=== PATIENT | male | born 1970 | race African-American/Black ===

== ENCOUNTER 2017-01-06 17:52 | Inpatient (IN) | payer SELFPAY ==
[~2017-01-06] VITALS: Ht 172.7 cm; Wt 107.9 kg
[2017-01-06] VITALS (9 sets, daily range): BP systolic 174–210; BP diastolic 102–125; PULSE 115–130; RESP 18–36; TEMP 99.1–103.2; O2SAT 93–100
[~2017-01-06 17:52] MED LIST: HYDRA25 PO; LISI20 PO; METO100 PO; NIFE1TAB86 PO
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
[2017-01-06] MEDS ORDERED: METO100T PO (18:07)
[2017-01-06] MEDS ORDERED: CLON0.1T PO (18:07)
[2017-01-06] MEDS: RESP: ALBUTEROL 2.5 MG/IPRATROPIUM 0.5 MG NEB (SCH) INH ×2 (18:11→18:45)
[2017-01-06] MEDS ORDERED: ACETAMINOPHEN 500 MG CPLT PO ONE (18:15)
[2017-01-06] MEDS ORDERED: SODIUM CHLOR 0.9% 1000 ML INJ 1,000 ML IV ONE (18:15)
[2017-01-06] MEDS ORDERED: SODIUM CHLORIDE 0.9% FLUSH 10 ML FLUSH IVF PRN (18:15)
[2017-01-06] MEDS ORDERED: methylPREDNISolone SOD SUCC 125 MG/2 ML VIAL IVP ONE (18:15)
[2017-01-06] MEDS ORDERED: hydrALAZINE HCL 20 MG/ML VIAL IV PUSH ONE ×2 (18:15→19:30)
--- NOTE | 2017-01-06 18:45 | RADRPT ---
EXAM DATE/TIME: 01/06/2017 18:25 [facility] COMPARISON: CHEST SINGLE AP, December 18, 2015, 12:28. INDICATIONS : Short of breath. MEDICAL HISTORY : Hypertension. Cerebrovascular disease. Cardiovascular disease. SURGICAL HISTORY : None. ENCOUNTER: Initial ACUITY: 1 day PAIN SCORE: 2/10 LOCATION: Chest FINDINGS: There is patchiness within the right lung base consistent with possible pneumonia. Clinical correlat ion is recommended. The left lung is clear. The heart and mediastinal structures are stable. CONCLUSION: 1. Minimal patchiness within the right lung base consistent with possible pneumonia. Clinical corre lation is recommended. Ric Jack MD on January 06, 2017 at 18:41 Board Certified Radiologist. This report was verified electronically.
[2017-01-06 18:58] LABS: AUTOMATED NEUTROPHIL # 5.1 TH/MM3 (1.8-7.7); BASOPHIL % 0.4 % (0.0-2.0); EOSINOPHIL % 0.5 % (0.0-4.0); HEMATOCRIT 42.8 % (39.0-51.0); HEMO FLAGS DIFF FINAL; LYMPH % 21.5 % (9.0-44.0); LYMPHOCYTE # 1.6 TH/MM3 (1.0-4.8); MEAN CELL VOLUME 78.7 FL (80.0-100.0); MEAN CORPUSCULAR HGB CONC 33.1 % (32.0-36.0); MONO % 10.7 % (0.0-8.0); NEUT % 66.9 % (16.0-70.0); PLATELET COUNT 232 TH/MM3 (150-450); RED BLOOD COUNT 5.44 MIL/MM3 (4.50-5.90); RED CELL DISTRIBUTION WIDTH 15.9 % (11.6-17.2); WHITE BLOOD COUNT 7.6 TH/MM3 (4.0-11.0)
[2017-01-06] MEDS ORDERED: SODIUM CHLOR 0.9% 1000 ML INJ 1,000 ML IV SCH ×2 (19:15)
[2017-01-06] MEDS ORDERED: cefTRIAXone INJ 1,000 MG in SODIUM CHLORIDE 0.9% INJ 100 ML IV ONE (19:15)
[2017-01-06] MEDS ORDERED: AZITHROMYCIN INJ 500 MG in SODIUM CHLOR 0.9% 250 ML INJ 250 ML IV ONE (19:15)
[2017-01-06 19:36] LABS: ALKALINE PHOSPHATASE 75 U/L (45-117); ALT (GPT) 19 U/L (12-78); ANION GAP 8 MEQ/L (5-15); AST (GOT) 15 U/L (15-37); BICARBONATE 32.2 MEQ/L (21.0-32.0); BLOOD UREA NITROGEN 15 MG/DL (7-18); CHLORIDE 99 MEQ/L (98-107); GLOMERULAR FILTRATION RATE 60 ML/MIN (>89); SODIUM (NA) 139 MEQ/L (136-145); TOTAL BILIRUBIN ADULT 0.3 MG/DL (0.2-1.0)
[2017-01-06 19:50] LABS: POTASSIUM 2.8 MEQ/L (3.5-5.1)
[2017-01-06] MEDS ORDERED: POTASSIUM CHLORIDE 25 MEQ EFFERVESCENT TAB PO ONE (20:00)
--- NOTE | 2017-01-06 20:42 | HHI.HP ---
HPI Service Family Medicine Primary Care Physician No Primary Care Physician Admission Diagnosis pneumonia Diagnoses: International Travel<30 Days: No Contact w/Intl Traveler<30days: No Known Affected Area: No History of Present Illness Patient is a 46-year-old male with a past medical history of hypertension that presents to the [place] ED with a chief complaint of shortness of breath of 1 day duration. Patient states that on Wednesday he knew that his blood pressure was elevated because he had headache and photophobia symptoms that he normally gets when his BP is elevated. He has a blood pressure monitor at home and the measurement was 211 over 117 on Wednesday. He decided to rest and eat some food and later that evening it was 118/100+. This morning, his blood pressure was 194/116. He took his brothers blood pressure medication, metoprolol 100 mg. Around the same time, patient was having cold and cough symptoms that he attributed to a viral infection contracted from his ex-'s little children. The cough was productive of sputum and progressively got worse. He also had chest pain from all the coughing and pain around his eyes, neck ,and arms bilaterally. He took some Mucinex and BC powder for the pain which subsided such that he was able to relax and watch some TV. However this morning, he had much difficulty breathing, was when he laid down, and wheezing, which prompted him to come into the ED. Notably, the patient does not have a primary care physician, but is getting insurance in the next 2-3 weeks. He was last seen in the [facility] ED on April 21 for symptoms of hypertensive urgency. He has been using his brothers metoprolol and clonidine to manage his blood pressure. (Eko,Gabby Goncalves MD R1) Review of Systems Constitutional: COMPLAINS OF: Fever, Chills, Dizziness, DENIES: Diaphoretic episodes, Night Sweats Eyes: DENIES: Diplopia, Double Vision Ears, nose, mouth, throat: COMPLAINS OF: Nasal discharge, Sinus Pain, DENIES: Throat pain Respiratory: COMPLAINS OF: Cough, Wheezing, Sputum production, Shortness of breath Cardiovascular: COMPLAINS OF: Chest pain, Palpitations, Orthopnea, DENIES: Dyspnea on Exertion, Lower Extremity Edema Gastrointestinal: COMPLAINS OF: Abdominal pain, DENIES: Bloody stools, Diarrhea, Nausea, Vomiting Genitourinary: COMPLAINS OF: Urinary frequency, DENIES: Dysuria Musculoskeletal: COMPLAINS OF: Joint pain, Muscle aches (pain around shoulders , neck, and elbows bilaterally), Neck pain Integumentary: DENIES: Pruritus, Rash Neurologic: COMPLAINS OF: Headache, Paresthesias (finger tips), DENIES: Localized weakness, Seizures Psychiatric: DENIES: Anxiety, Confusion, Suicidal Ideation, Homicidal Ideation (Gabby Batista MD R1) Past Family Social History Past Medical History Hypertension - diagnosed in the ED Denies asthma and COPD Past Surgical History None Reported Medications None (Gabby Batista MD R1) Allergies: Coded Allergies: No Known Allergies (Verified , 01/06/17) Family History HTN - parents and brother DM - older brother Social History -Lives in [place], [place] -[facility] -Lives with son - 20 years -Around ex-'s children a lot who have been sick -Denies smoking ever -Occasional alcohol use - once every 2-3 months -No drug use (Gabby Batista MD R1) Physical Exam Vital Signs Vital Signs Date Time Temp Pulse Resp B/P Pulse Ox O2 Delivery O2 Flow Rate FiO2 01/06/17 20:35 120 18 175/103 96 Nasal Cannula 4 01/06/17 19:01 126 18 210/116 95 Nasal Cannula 4 01/06/17 18:23 130 34 210/116 97 Nasal Cannula 2 01/06/17 18:23 100 Aerosol Mask 01/06/17 18:09 93 Nasal Cannula 2.00 01/06/17 18:08 103.2 119 36 204/125 94 Physical Exam GENERAL: This is a well-nourished, well-developed patient, in no apparent distress. SKIN: No rashes, ecchymoses or lesions. Cool and dry. HEAD: Atraumatic. Normocephalic. No temporal or scalp tenderness. EYES: Pupils equal round and reactive. Extraocular motions intact. No scleral icterus. Mild erythema of sclera ENT: Nose without bleeding, purulent drainage or septal hematoma. Throat without erythema, tonsillar hypertrophy or exudate. Uvula midline. Airway patent. NECK: Trachea midline. No JVD or lymphadenopathy. Supple, nontender, no meningeal signs. CARDIOVASCULAR: Tachycardic rate and rhythm without murmurs, S3 present RESPIRATORY: Poor air movement, bilateral expiratory wheezes more prominent in the mid-to upper lung bases. GASTROINTESTINAL: Abdomen soft, non-tender, obese. No hepato-splenomegaly, or palpable masses. No guarding. MUSCULOSKELETAL: Extremities without clubbing, cyanosis, or edema. No joint tenderness, effusion, or edema noted. No calf tenderness. NEUROLOGICAL: Awake and alert. Cranial nerves II through XII intact. Motor and sensory grossly within normal limits. Five out of 5 muscle strength in all muscle groups. Normal speech. Laboratory Laboratory Tests Test 01/06/17 01/06/17 18:15 18:28 White Blood Count 7.6 Red Blood Count 5.44 Hemoglobin 14.2 Hematocrit 42.8 Mean Corpuscular Volume 78.7 Mean Corpuscular Hemoglobin 26.0 Mean Corpuscular Hemoglobin 33.1 Concent Red Cell Distribution Width 15.9 Platelet Count 232 Mean Platelet Volume 10.0 Neutrophils (%) (Auto) 66.9 Lymphocytes (%) (Auto) 21.5 Monocytes (%) (Auto) 10.7 Eosinophils (%) (Auto) 0.5 Basophils (%) (Auto) 0.4 Neutrophils # (Auto) 5.1 Lymphocytes # (Auto) 1.6 Monocytes # (Auto) 0.8 Eosinophils # (Auto) 0.0 Basophils # (Auto) 0.0 CBC Comment DIFF FINAL Differential Comment Sodium Level 139 Potassium Level 2.8 Chloride Level 99 Carbon Dioxide Level 32.2 Anion Gap 8 Blood Urea Nitrogen 15 Creatinine 1.54 Estimat Glomerular Filtration 60 Rate Random Glucose 145 Calcium Level 9.0 Total Bilirubin 0.3 Aspartate Amino Transf 15 (AST/SGOT) Alanine Aminotransferase 19 (ALT/SGPT) Alkaline Phosphatase 75 Troponin I 0.03 Total Protein 8.5 Albumin 3.8 Lactic Acid Level 1.3 Date/Time Procedure Status Source Growth 01/06/17 20:00 Influenza Types A,B Antigen (ALEXIS) - Final Complete Nasal Washing NEGATIVE FOR FLU A AND B ANTIGEN.... 01/06/17 19:21 Influenza Types A,B Antigen (ALEXIS) Received Nasal Washing Pending 01/06/17 18:28 Aerobic Blood Culture Received Blood Peripheral Pending 01/06/17 18:28 Anaerobic Blood Culture Received Blood Peripheral Pending (Eko,Gabby Goncalves MD R1) Result Diagram: 01/06/17181401/06/171814 Imaging Last Impressions Chest X-Ray 01/06/17 3970 Signed Impressions: Service Date/Time: Friday, January 06, 2017 18:25 - CONCLUSION: 1. Minimal patchiness within the right lung base consistent with possible pneumonia. Clinical correlation is recommended. Ric Jack MD (Gabby Batista MD R1) Assessment and Plan Assessment and Plan 46 y/o male with PMH of HTN presents with a 2-day history of shortness of breath , headache, fever, productive cough, and wheezing with chest x-ray from findings concerning for possible pneumonia and cardiomegaly on my interpretation ; with an equivocal BNP, concern is for heart failure. Elevated blood pressure with elevated creatinine is concerning for hypertensive emergency. The patient will be admitted for management with IV antibiotics, breathing treatments, and optimization of antihypertensive regimen. Code Status Full code Discussed Condition With Seen and examined with Dr. Chacon, PGY 2 (Gabby Batista MD R1) Attending Attestation THIS CASE WAS DISCUSSED WITH THE RESIDENT PHYSICIANS. I HAVE REVIEWED THE RECORD AND AGREE WITH THE ABOVE NOTE AND PLAN OF CARE WAS DISCUSSED. I HAVE AUTHORIZED THE ORDER FOR ADMISSION TO AN IN-PATIENT STATUS. (Iain Colin MD) Problem List: (1) Community acquired pneumonia Status: Acute Plan: -Meets sepsis criteria with tachycardia, tachypnea, and elevated temperature -WBC 7.6, neutrophil % 66.9, temp 103.2F on admission -Lactic acid within normal limits at 1.3 -CXR shows minimal patchiness within the right lung base consistent with possible pneumonia -Causative ddx includes S. pneumo, mycoplasma, Moraxella, MSSA, viral URI, Klebsiella, vs other. Less likely MRSA or pseudomonas being community-acquired pneumonia. -Negative for influenza -Urine Legionella antigen pending -Mycoplasma antigen pending -Urinalysis pending -Trending troponin 2 -Well score was 1.5 putting him at low risk for PE. D-dimer pending -ABG showed pH of 7.48 with PCO2 35. Pt was on 4L O2 by NC -Azithromycin 500 mg by mouth every 24 hours x 5 days -Rocephin 1 g IV every 24 hours for duration of hospitalization -Duonebs Q4h PRN SOB/wheezing alternate with albuterol -Albuterol Q4h PRN SOB/wheezing alternate with DuoNeb -Tessalon, and Mucinex available as PRNs for cough -Tylenol 650 mg Q6h PRN pain 1-10 of fever greater than 101F -Prednisone 40 mg by mouth daily -Zofran 4mg IV Q6h PRN nausea/vomiting -night monitor with telemetry -Continuous pulse oximetry with supplemental oxygen -Respiratory incentive spirometer -Vital signs every 4 hours -OOB ad stacie -Monitor Is & Os (2) Hypertensive emergency Status: Acute Plan: -Blood pressure elevated on admission at 210/116 -Patient was last seen by ED for similar symptoms on 04/21/16 -Meets criteria with creatinine elevated at 1.54 -Patient does not have a primary care physician and has been using his older brother's medication - he took 100 mg of metoprolol for the past 3 days -Will start amlodipine 5 mg daily by mouth -Hydralazine 10mg PO Q6H prn SBP >= 180, DBP >= 100 -EKG shows left ventricular hypertrophy with marked right axis deviation, ST changes in V1, V2, V3, V4 were present in previous EKG on 04/21/16 -Last echo was on 02/09/2014 - showed normal left ventricular cavity size, normal wall thickness, normal systolic function, EF 60-65%, no regional wall motion abnormalities -Will repeat echo during this admission due to concerns for heart failure; CXR shows cardiomegaly by my interpretation (3) [id number] kidney injury Status: Acute Plan: On admission creatinine elevated to 1.54, no CVA tenderness on exam. -Baseline creatinine 1.17 on 06/16/15; last elevated creatinine was 1.47 on -RAFAELA likely related to hypertension -Renally dose medications -Avoid nephrotoxins -Holding fluids due to elevated blood pressure and until heart failure is ruled out -If renal function does not improve with fluids, consider renal ultrasound and nephrology consult (4) Hypokalemia Status: Acute Plan: -Potassium 2.8 on admission, cause unknown presently -Received 25 MeQ in the ED -Will recheck in the a.m. and replace accordingly (5) Chronic medical problems Status: Acute Plan: -Random glucose elevated at 145 -Will check A1c -Will check lipid panel -TSH within normal limits at 1.09 (6) FEN/DVT PPX/GI PPX Status: Acute Plan: Fluids: Oral fluids only currently Electrolytes: Will monitor and replace as needed, magnesium and phosphorus within normal limits Nutrition: Regular adult diet DVT Prophylaxis: heparin subcutaneous every 8 hours GI Prophylaxis: Protonix 40mg PO daily AM labs: CBC, CMP, BNP (Gabby Batista MD R1) Physician Certification 2 Midnight Certification Type: Admission for Inpatient Services Order for Inpatient Services The services are ordered in accordance with Medicare regulations or non- Medicare payer requirements, as applicable. In the case of services not specified as inpatient-only, they are appropriately provided as inpatient services in accordance with the 2-midnight benchmark. Estimated LOS (days): 2 days is the estimated time the patient will need to remain in the hospital, assuming treatment plan goals are met and no additional complications. Post-Hospital Plan: Home (Gabby Batista MD R1) Gabby Batista MD R1 Jan 06, 2017 20:42 Iain Colin MD Jan 07, 2017 11:25
[2017-01-06] MEDS ORDERED: METOPROLOL TARTRATE 100 MG TAB PO SCH (21:00)
[2017-01-06] MEDS ORDERED: RESP: ALBUTEROL 2.5 MG/IPRATROPIUM 0.5 MG NEB (PRN) INH (21:45)
[2017-01-06] MEDS ORDERED: ONDANSETRON HCL 4 MG/2 ML VIAL IV PRN (21:45)
[2017-01-06] MEDS ORDERED: SODIUM CHLORIDE 0.9% FLUSH 10 ML FLUSH IV FLUSH PRN (21:45)
[2017-01-06] MEDS: SODIUM CHLORIDE 0.9% FLUSH 10 ML FLUSH IV FLUSH SCH (21:45)
[2017-01-06] MEDS ORDERED: RESP: ALBUTEROL 2.5 MG/IPRATROPIUM 0.5 MG NEB (SCH) INH (22:00)
[2017-01-06] MEDS ORDERED: hydrALAZINE HCL 10 MG TAB PO PRN (22:30)
[2017-01-06] MEDS ORDERED: amLODIPine BESYLATE 5 MG TAB PO SCH (22:30)
[2017-01-06 22:48] LABS: BLOOD GAS BASE EXCESS 1.9 mmol/L (-2-2); BLOOD GAS CARBOXYHEMOGLOBIN 1.1 % (0-4); BLOOD GAS HCO3 25 mmol/L (22-26); BLOOD GAS METHEMOGLOBIN 1.2 % (0-2); BLOOD GAS O2 HGB SATURATION 96 % (90-100); BLOOD GAS OXYGEN CONTENT 18.4 Vol % (12.0-20.0); BLOOD GAS PCO2 35 mmHg (38-42); BLOOD GAS PO2 97 mmHG (61-120); BLOOD GAS TOTAL HGB 13.6 G/DL (12.0-16.0); CRITICAL VALUE NO; DRAW SITE LT RADIAL; FIO2 98 %; LITER FLOW 2 L/M; NUMBER OF ARTERIAL PUNCTURES 1; OXYGEN DEVICE NASAL CANNULA; STAT NO; TEMP CORR TO 98.6; ULNAR PULSE PRESENT
[2017-01-06 23:04] LABS: MAGNESIUM 2.1 MG/DL (1.5-2.5)
[2017-01-06] MEDS: HEPARIN SODIUM - SQ 10,000 UNITS/ML VIAL SQ SCH (23:05)
[2017-01-07] VITALS (11 sets, daily range): BP systolic 158–206; BP diastolic 97–118; PULSE 98–122; RESP 18–24; TEMP 97.9–101.1; O2SAT 91–97
[2017-01-07] MEDS: RESP: ALBUTEROL 2.5 MG/IPRATROPIUM 0.5 MG NEB (SCH) NEB ×6 (00:03→21:11)
[2017-01-07 00:51] LABS: BLOOD, URINE NEG (NEG); GLUCOSE,URINE 1000 mg/dL (NEG); KETONE, URINE NEG (NEG); NITRITE,URINE NEG (NEG); PH, URINE 6.5 (5.0-8.5); URINE COLOR LIGHT-YELLOW (YELLW/STRAW)
[2017-01-07 00:55] LABS: COMMENT (UR) CULT NOT INDICATED; CULTURE IF INDICATED CULT NOT INDICATED
[2017-01-07] MEDS ORDERED: diphenhydrAMINE HCL 25 MG CAP PO ONE (01:15)
[2017-01-07] MEDS: cloNIDine HCL 0.1 MG TAB PO PRN ×3 (01:18→23:59)
[2017-01-07] MEDS ORDERED: RESP: ALBUTEROL 2.5 MG/3 ML NEB (SCH) NEB (02:00)
[2017-01-07] MEDS ORDERED: cloNIDine HCL 0.1 MG TAB PO ONE (03:00)
[2017-01-07] MEDS ORDERED: POTASSIUM CHLORIDE 10 MEQ CONTROLLED RELEASE TAB PO ONE (03:00)
[2017-01-07] MEDS: MORPHINE SULFATE 4 MG/ML INJ IV PUSH PRN ×2 (03:20→06:56)
[2017-01-07 05:14] LABS: AUTOMATED NEUTROPHIL # 7.2 TH/MM3 (1.8-7.7); BASOPHIL % 0.1 % (0.0-2.0); HEMATOCRIT 39.4 % (39.0-51.0); HEMO FLAGS DIFF FINAL; LYMPH % 7.4 % (9.0-44.0); LYMPHOCYTE # 0.6 TH/MM3 (1.0-4.8); MEAN CELL VOLUME 78.6 FL (80.0-100.0); MEAN CORPUSCULAR HEMOGLOBIN 26.1 PG (27.0-34.0); MEAN CORPUSCULAR HGB CONC 33.2 % (32.0-36.0); NEUT % 90.5 % (16.0-70.0); PLATELET COUNT 232 TH/MM3 (150-450); RED BLOOD COUNT 5.01 MIL/MM3 (4.50-5.90); RED CELL DISTRIBUTION WIDTH 15.6 % (11.6-17.2)
[2017-01-07 05:57] LABS: ALKALINE PHOSPHATASE 60 U/L (45-117); ALT (GPT) 16 U/L (12-78); ANION GAP 9 MEQ/L (5-15); AST (GOT) 11 U/L (15-37); BLOOD UREA NITROGEN 16 MG/DL (7-18); CHLORIDE 103 MEQ/L (98-107); GLOMERULAR FILTRATION RATE 57 ML/MIN (>89); HDL CHOLESTEROL 39.7 MG/DL (40.0-60.0); LDL CHOLESTEROL 191 MG/DL (0-99); POTASSIUM 3.8 MEQ/L (3.5-5.1); SODIUM (NA) 139 MEQ/L (136-145); TOTAL BILIRUBIN ADULT 0.3 MG/DL (0.2-1.0); URIC ACID 5.9 MG/DL (2.6-7.2)
[2017-01-07] MEDS ORDERED: IOHEXOL 350 MG/ML 10 ML VIAL (for RAD DIAG) IV ONE (05:57)
[2017-01-07] MEDS ORDERED: GLUCAGON 1 MG/ML VIAL OTHER PRN (06:15)
[2017-01-07] MEDS ORDERED: DEXTROSE 50% IN WATER 50 ML VIAL(D50) IV PUSH PRN (06:15)
--- NOTE | 2017-01-07 06:22 | RADRPT ---
EXAM DATE/TIME: 01/07/2017 05:49 [facility] COMPARISON: CT PULMONARY ANGIOGRAM, June 15, 2015, 4:08. INDICATIONS : Shortness of breath today. IV CONTRAST: 80 cc Omnipaque 350 (iohexol) IV RADIATION DOSE: 23.39 CTDIvol (mGy) MEDICAL HISTORY : Hypertension. Cardiovascular disease SURGICAL HISTORY : None. ENCOUNTER: Initial ACUITY: 1 day PAIN SCALE: 0/10 LOCATION: Bilateral chest TECHNIQUE: Volumetric scanning of the chest was performed using a pulmonary embolism protocol MIP images were re constructed. Using automated exposure control and adjustment of the mA and/or kV according to patien t size, radiation dose was kept as low as reasonably achievable to obtain optimal diagnostic quality images. FINDINGS: No filling defects identified in the pulmonary arteries to suggest pulmonary embolic disease. There i s subsegmental atelectasis at the bases. No significant pleural or pericardial effusion. Heart size i s enlarged. No acute findings in the visualized upper abdomen. CONCLUSION: 1. Negative for pulmonary embolism. Subsegmental atelectasis at the lung bases. Cardiomegaly. Cristopher Rodriguez MD on January 07, 2017 at 6:14 Board Certified Radiologist. This report was verified electronically.
[2017-01-07] MEDS: HEPARIN SODIUM - SQ 10,000 UNITS/ML VIAL SQ SCH ×3 (06:56→23:59)
[2017-01-07] MEDS: INSULIN ASPART SUPPLEMENTAL SCALE SQ SCH ×4 (06:58→21:00)
[2017-01-07] MEDS: PANTOPRAZOLE SOD 40 MG DELAYED RELEASE TAB PO SCH (08:49)
[2017-01-07] MEDS: SODIUM CHLORIDE 0.9% FLUSH 10 ML FLUSH IV FLUSH SCH ×2 (08:50→21:53)
[2017-01-07] MEDS: SODIUM CHLOR 0.9% 1000 ML INJ 1,000 ML IV SCH ×3 (08:50→21:52)
[2017-01-07] MEDS ORDERED: amLODIPine BESYLATE 5 MG TAB PO SCH (09:00)
[2017-01-07] MEDS ORDERED: METOPROLOL TARTRATE 25 MG TAB PO SCH (09:00)
[2017-01-07] MEDS ORDERED: RESP: ALBUTEROL CONC 2.5 MG/0.5 ML NEB NEB PRN (09:00)
[2017-01-07] MEDS ORDERED: BENZONATATE 100 MG CAP PO PRN (09:00)
[2017-01-07] MEDS ORDERED: cefTRIAXone INJ 2,000 MG in SODIUM CHLORIDE 0.9% INJ 100 ML IV SCH (09:00)
[2017-01-07] MEDS ORDERED: guaiFENesin E.R. 600 MG TAB PO PRN (09:00)
--- NOTE | 2017-01-07 09:01 | RADRPT ---
EXAM DATE/TIME: 01/07/2017 07:47 [facility] COMPARISON: No previous studies available for comparison. INDICATIONS : Short of breath. MEDICAL HISTORY : Hypertension. cardiovascular disease. SURGICAL HISTORY : None. ENCOUNTER: Subsequent ACUITY: 2 days PAIN SCORE: 0/10 LOCATION: Bilateral chest FINDINGS: The cardiac silhouette is enlarged in transverse diameter. There is prominence of the central pulmona ry vasculature with indistinct vascular margins compatible with vascular congestion but no evidence o f overt failure. No pleural effusions are identified. CONCLUSION: 1. Cardiomegaly and findings of vascular congestion without overt failure. Natan Lagos MD on January 07, 2017 at 8:59 Board Certified Radiologist. This report was verified electronically.
--- NOTE | 2017-01-07 09:02 | RADRPT ---
EXAM DATE/TIME: 01/07/2017 07:50 [facility] COMPARISON: No previous studies available for comparison. INDICATIONS : Distention. MEDICAL HISTORY : None. SURGICAL HISTORY : None. ENCOUNTER: Initial ACUITY: 1 day PAIN SCORE: 2/10 LOCATION: Bilateral abdomen. FINDINGS: Supine view of the abdomen was performed. The abdominal bowel gas pattern is normal. No abnormal ma sses, calcifications, or organomegaly is seen. The osseous structures are unremarkable. Contrast is present in the renal collecting system and bladder. CONCLUSION: 1. No evidence of obstruction. Natan Lagos MD on January 07, 2017 at 8:59 Board Certified Radiologist. This report was verified electronically.
[2017-01-07] MEDS: cefTRIAXone INJ 1,000 MG in SODIUM CHLORIDE 0.9% INJ 100 ML IV SCH (09:26)
[2017-01-07] MEDS: ACETAMINOPHEN 325 MG TAB PO PRN ×2 (10:56→21:54)
--- NOTE | 2017-01-07 11:09 | HHI.FPPN ---
Subjective Remarks No acute events overnight and patient only complaint this morning is of headache. He feels that he is breathing much easier and has been up and walking around his room. He does complain of a persistent and significant headache that he describes as "pressure" that is causing discomfort. He denies any dizziness or lightheadedness, he denies any vision changes, he denies any neck pain. As far as his breathing, he feels much more comfortable but does feel himself wheezing. He denies any current cough, he denies any sputum production, he denies any chest pain or palpitations, he denies any nausea or vomiting, he denies any fevers or chills. In summary this is a 46-year-old male presenting to the emergency department with a chief complaint of shortness of breath. He states that on the day prior to presentation he developed progressive shortness of breath with minimal activity. He also feels that his blood pressure was elevated because he developed a headache associated with photophobia but he claims is normal when he has elevated blood pressure. He does endorse several days of URI symptoms including nonproductive cough and some generalized malaise over the last 3 days. He also does endorse a subjective fever but did not check his temperature. He did check his blood pressure at home and states that his initial blood pressure was 211/117 and that he has had several readings consistently over the 180/100 range. On the day of admission, his blood pressure was 194/116 at home and he took 1 dose of his brothers blood pressure medication metoprolol 100 mg. He does not have a primary care doctor and has not been treated for his known hypertension for the last several years. Past Medical History Hypertension - diagnosed in the ED Denies asthma and COPD Past Surgical History None Reported Medications None Allergies: Coded Allergies: No Known Allergies (Verified , 01/06/17) Family History HTN - parents and brother DM - older brother Social History -Lives in [place], [place] -[facility] -Lives with son - 20 years -Around ex-'s children a lot who have been sick -Denies smoking ever -Occasional alcohol use - once every 2-3 months -No drug use Objective Vitals Vital Signs Date Time Temp Pulse Resp B/P Pulse Ox O2 Delivery O2 Flow Rate FiO2 01/07/17 08:17 101.0 116 24 180/107 96 01/07/17 04:44 101.1 120 20 162/99 94 01/07/17 02:42 119 177/104 01/07/17 01:04 122 22 189/108 96 01/06/17 23:38 99.9 118 188/114 93 01/06/17 23:15 120 01/06/17 22:46 99.1 115 18 174/102 100 4 01/06/17 22:25 117 18 177/107 100 Nasal Cannula 4 01/06/17 20:35 120 18 175/103 96 Nasal Cannula 4 01/06/17 19:01 126 18 210/116 95 Nasal Cannula 4 01/06/17 18:23 130 34 210/116 97 Nasal Cannula 2 01/06/17 18:23 100 Aerosol Mask 01/06/17 18:09 93 Nasal Cannula 2.00 01/06/17 18:08 103.2 119 36 204/125 94 I/O 01/06/17 01/06/17 01/06/17 01/07/17 01/07/17 01/07/17 07:00 15:00 23:00 07:00 15:00 23:00 Output Total 1400 ml Balance -1400 ml Output Urine Total 1400 ml # Voids 3 Result Diagram: 01/07/17 0500 01/07/17 0500 Imaging Last 48 hours Impressions Chest X-Ray 01/07/17 0600 Signed Impressions: Service Date/Time: December 07:47 - CONCLUSION: 1. Cardiomegaly and findings of vascular congestion without overt failure. Natan Lagos MD Abdomen X-Ray 01/07/17 0600 Signed Impressions: Service Date/Time: December 07:50 - CONCLUSION: 1. No evidence of obstruction. Natan Lagos MD CT Angiography 01/07/17 0000 Signed Impressions: Service Date/Time: December 05:49 - CONCLUSION: 1. Negative for pulmonary embolism. Subsegmental atelectasis at the lung bases. Cardiomegaly. Cristopher Rodriguez MD Chest X-Ray 01/06/17 1803 Signed Impressions: Service Date/Time: Friday, January 06, 2017 18:25 - CONCLUSION: 1. Minimal patchiness within the right lung base consistent with possible pneumonia. Clinical correlation is recommended. Ric Jack MD Objective Remarks GENERAL: Overweight Mabel male, sitting up in bed in no obvious distress. SKIN: No rashes, ecchymoses or lesions. Cool and dry. NECK: Trachea midline. No JVD or lymphadenopathy. Supple, nontender, no meningeal signs. CARDIOVASCULAR: Tachycardic with regular rhythm, no obvious murmurs RESPIRATORY: Coarse breath sounds in all lung lindsey with diffuse expiratory wheezes, moderate air exchange. GASTROINTESTINAL: Abdomen soft, non-tender, obese. MUSCULOSKELETAL: Extremities without clubbing, cyanosis, or edema. NEUROLOGICAL: Awake and alert. A/P Assessment and Plan 46 y/o male with PMH of HTN presents with a 2-day history of shortness of breath , headache, fever, productive cough, and wheezing with chest x-ray from findings concerning for possible pneumonia and cardiomegaly on my interpretation ; with an equivocal BNP, concern is for heart failure. Elevated blood pressure with elevated creatinine is concerning for hypertensive emergency. The patient will be admitted for management with IV antibiotics, breathing treatments, and optimization of antihypertensive regimen. Problem List: (1) Community acquired pneumonia Status: Acute Plan: Likely represents pneumonia, will treat as community-acquired Antibiotic treatment as below: - Rocephin 1 g IV every 24 hours - Azithromycin 500 mg by mouth every 24 hours - Prednisone 40 mg by mouth daily (received Solu-Medrol 125 mg IV 1 in the ED) Meet sepsis criteria on arrival with tachycardia, tachypnea, and fever Lactic acid on arrival normal at 1.3, however increased to 2.8 this morning - Received 1 L normal saline IV bolus 3 - Currently getting IV fluids at normal saline 135 mL/hour Blood cultures 2 drawn and pending Urine Legionella antigen negative Influenza screening negative Repeat chest x-ray showing vascular congestion without overt heart failure or effusion - We will decrease IV fluids today and push oral hydration 2-D echocardiogram ordered and pending Supportive management with: -Duonebs Q4h scheduled for diffuse wheezing -Albuterol Q4h PRN SOB/wheezing alternate with DuoNeb -Tessalon, and Mucinex available as PRNs for cough -Tylenol 650 mg Q6h PRN pain 1-10 of fever greater than 101F -Prednisone 40 mg by mouth daily -Zofran 4mg IV Q6h PRN nausea/vomiting (2) Sepsis Status: Acute Plan: Treatment as above for community-acquired pneumonia (3) Hypertensive emergency Status: Acute Plan: Blood pressure has remained elevated and has required several PRN medications overnight Lopressor 25 mg by mouth twice a day started today Amlodipine 5 mg by mouth daily Continue as needed medications with: Clonidine 0.1 mg every 6 hours as needed Hydralazine 10 mg IV every 6 hours as needed EKG shows left ventricular hypertrophy with marked right axis deviation, ST changes in V1, V2, V3, V4 were present in previous EKG on 04/21/16 2-D echocardiogram ordered and pending (4) Fotyn-tj-jawzeuk kidney injury Status: Acute Plan: Renal function mildly worsening likely due to hypertensive urgency versus sepsis - Creatinine on arrival was 1.54 and worsening to 1.60 Received IV fluids on admission with normal saline 1 L IV bolus 3 - Started on IV fluids with normal saline at 135 mL/hour however repeat chest x- ray showing vascular congestion We will obtain 2-D echocardiogram Decrease IV fluids to 75 mL/hour for gentle IV hydration given vascular congestion on x-ray Avoid nephrotoxic agents Monitor with daily BMPs (5) Hypokalemia Status: Acute Plan: Resolved with potassium of 3.8 today -Received 25 MeQ in the ED Check daily BMPs and replenish as needed (6) Chronic medical problems Status: Acute Plan: -Random glucose elevated at 145 -Will check A1c -Will check lipid panel -TSH within normal limits at 1.09 (7) FEN/DVT PPX/GI PPX Status: Acute Plan: Fluids: Oral fluids and normal saline at 75 mL/hour Electrolytes: Will monitor and replace as needed, magnesium and phosphorus within normal limits Nutrition: Regular adult diet DVT Prophylaxis: heparin subcutaneous every 8 hours GI Prophylaxis: Protonix 40mg PO daily AM labs: CBC, CMP, BNP Iain Colin MD Jan 07, 2017 11:09 AM labs: CBC, CMP, BNP Iain Colin MD Jan 07, 2017 11:09
--- NOTE | 2017-01-07 15:59 | EKG ---
Date Performed: 01/06/2017 Time Performed: 18:18:49 PTAGE: 46 years EKG: ECTOPIC ATRIAL TACHYCARDIA LEFT ATRIAL ENLARGEMENT MARKED RIGHT AXIS DEVIATION LEFT VENTRIC ULAR HYPERTROPHY AND ST-T CHANGE LATERAL MYOCARDIAL INFARCTION When compared to PREVIOUS TRACING , right axis deviation is now Present along with ectopic atrial tachycar daniel, this is suggestive of Limb lead reversal. Clinical corrolation is suggested. PREVIOUS TRACIN 04/21/2016 17.53 DOCTOR: Natan Cano Interpretating Date/Time 01/07/2017 15:58:16
[2017-01-07] MEDS ORDERED: METOPROLOL TARTRATE 25 MG TAB PO ONE (16:00)
--- NOTE | 2017-01-07 17:15 | EC ---
Study Study Date:01/07/2017 STUDY CONCLUSIONS SUMMARY - Left ventricle: The cavity size was normal. Wall thickness was normal. Systolic function was moderately to severely reduced. The estimated ejection fraction was in the range of 30% to 35%. Diffuse hypokinesis. - Aortic valve: Valve area: 2.87cm^2 (Vmax). - Mitral valve: Mild regurgitation. - Atrial septum: The septum bowed from right to left, consistent with increased right atrial pressure. - Pulmonary arteries: PA peak pressure: 37mm Hg (S). If LV function is below 40, please consider prescribing an ACEI or ARB or document rationale for non-use. PROCEDURE DATA STUDY STATUS: Elective. Procedure: Transthoracic echocardiography. Image quality was good. Scanning was performed from the parasternal, apical, and subcostal acoustic windows. Study completion: The patient tolerated the procedure well. Transthoracic echocardiography. M-mode, complete 2D, complete spectral Doppler, and color Doppler. Height: Height: 68in. Weight: Weight: 239.5lb. Body mass index: BMI: 36.5kg/m^2. Body surface area: BSA: 2.21m^2. Patient status: Inpatient. CARDIAC ANATOMY LEFT VENTRICLE: The cavity size was normal. Wall thickness was normal. Systolic function was moderately to severely reduced. The estimated ejection fraction was in the range of 30% to 35%. Diffuse hypokinesis. AORTIC VALVE: Trileaflet; normal thickness leaflets. Doppler: Transvalvular velocity was within the normal range. There was no stenosis. No regurgitation. Valve area: 2.87cm^2 (Vmax). Indexed valve area: 1.3cm^2/m^2 (Vmax). AORTA: Aortic root: The aortic root was normal in size. MITRAL VALVE: Structurally normal valve. Doppler: Transvalvular velocity was within the normal range. There was no evidence for stenosis. Mild regurgitation. LEFT ATRIUM: The atrium was normal in size. ATRIAL SEPTUM: The septum bowed from right to left, consistent with increased right atrial pressure. RIGHT VENTRICLE: The cavity size was normal. Wall thickness was normal. PULMONIC VALVE: Doppler: Transvalvular velocity was within the normal range. There was no evidence for stenosis. No regurgitation. TRICUSPID VALVE: Structurally normal valve. Doppler: Transvalvular velocity was within the normal range. No regurgitation. PULMONARY ARTERY: The main pulmonary artery was normal-sized. Systolic pressure was within the normal range. RIGHT ATRIUM: The atrium was normal in size. PERICARDIUM: There was no pericardial effusion. SYSTEMIC VEINS: Inferior vena cava: The vessel was normal in size. Patient weight: 239.5lb _Ejection fraction:_ 65-75% _Fractional shortening:_ 32% up to 5Kg 5-11.5Kg 11.6-22.9Kg 23-45Kg 45-57Kg Aortic Root 7-13 <17 13-22 17-27 17-27 LA diam 6-13 <23 24-38 33-47 37-40 RVID 10-17 7-15 7-15 7-18 8-17 LVIDd 12-22 <32 24-38 33-47 37-40 LVPW 2-4 3-6 5-7 6-8 7-8 IVS 2-4 3-6 5-7 6-8 7-8 BASIC MEASUREMENTS ADULT NORMAL Left ventricle LV internal dimension, ED, chordal *59.4 mm 43-52 level, PLAX LV internal dimension, ES, chordal *52.5 mm 23-38 level, PLAX Fractional shortening, chordal level, *12 % >29 PLAX LV posterior wall thickness, ED 10.5 mm IVS/LVPW ratio, ED 1.04 <1.3 Volume, ED, MOD, 1-plane 191 ml Volume, ES, MOD, 1-plane 136 ml Ejection fraction, MOD, 1-plane 29 % Stroke volume, MOD, 1-plane 55 ml Volume index, ED, MOD, 1-plane 86 ml/m^2 Volume index, ES, MOD, 1-plane 62 ml/m^2 Stroke index, MOD, 1-plane 24.9 ml/m^2 Volume, ED, MOD, 2-plane 169 ml Volume, ES, MOD, 2-plane 112 ml Ejection fraction, MOD, 2-plane 34 % Stroke volume, MOD, 2-plane 57 ml Volume index, ED, MOD, 2-plane 76 ml/m^2 Volume index, ES, MOD, 2-plane 51 ml/m^2 Stroke index, MOD, 2-plane 25.8 ml/m^2 Ventricular septum Septal thickness, ED 10.9 mm Aortic valve Leaflet separation 19 mm 15-26 Right ventricle RV internal dimension, ED, PLAX 24.8 mm 19-38 BASIC MEASUREMENTS ADULT NORMAL Aortic valve Leaflet separation 19 mm 15-26 Aorta Root diameter, ED 28 mm 20-37 Left atrium Anterior-posterior dimension, ES *47 mm 19-40 Anterior-posterior dimension index, ES 2.13 cm/m^2 <2.2 LA/aortic root ratio 1.68 DOPPLER MEASUREMENTS ADULT NORMAL Main pulmonary artery Pressure, S *37 mm Hg =30 Pressure, ED 29 mm Hg Aortic valve Peak velocity, S 155 cm/s Valve area, Vmax 2.87 cm^2 Valve area index, Vmax 1.3 cm^2/m^2 Regurgitant velocity, ED 442 cm/s Regurgitant deceleration 1770 cm/s^2 Regurgitant pressure half-time 733 ms Regurgitant gradient, ED 78 mm Hg Mitral valve Maximal regurgitant velocity 401 cm/s Tricuspid valve Regurgitant peak velocity 274 cm/s Peak RV-RA gradient, S 30 mm Hg Maximal regurgitant velocity 274 cm/s Systemic veins Estimated CVP 10 mm Hg Right ventricle RV pressure, S * 41 mm Hg <30 Pulmonic valve Peak velocity, S 103 cm/s Regurgitant velocity, ED 220 cm/s LEGEND: Mean values are shown as u=mean value. Asterisk (*) rodriguez values outside specified normal range. Prepared and signed by Leon Bourgeois [id number]
[2017-01-07 18:59] LABS: HEMOGLOBIN A1a 1.1 %; HEMOGLOBIN A1b 2.3 %; HEMOGLOBIN Ao 81.6 %; HEMOGLOBIN LA1C 2.3 %; HEMOGLOBIN P3 4.5 %
[2017-01-07] MEDS: predniSONE 20 MG TAB PO SCH (21:53)
[2017-01-07] MEDS: AZITHROMYCIN 250 MG TAB PO SCH (21:53)
[2017-01-08] VITALS (9 sets, daily range): BP systolic 162–184; BP diastolic 102–116; PULSE 95–110; RESP 16–20; TEMP 97.3–98.7; O2SAT 95–98
[2017-01-08] MEDS: RESP: ALBUTEROL 2.5 MG/IPRATROPIUM 0.5 MG NEB (SCH) NEB ×3 (03:30→21:58)
[2017-01-08] MEDS: INSULIN ASPART SUPPLEMENTAL SCALE SQ SCH ×4 (06:12→22:25)
[2017-01-08] MEDS: SODIUM CHLOR 0.9% 1000 ML INJ 1,000 ML IV SCH ×2 (06:12→15:14)
[2017-01-08] MEDS: HEPARIN SODIUM - SQ 10,000 UNITS/ML VIAL SQ SCH ×3 (06:12→22:22)
[2017-01-08 07:38] LABS: AUTOMATED NEUTROPHIL # 7.2 TH/MM3 (1.8-7.7); BASOPHIL % 0.2 % (0.0-2.0); HEMO FLAGS DIFF FINAL; LYMPH % 10.9 % (9.0-44.0); LYMPHOCYTE # 0.9 TH/MM3 (1.0-4.8); MEAN CELL VOLUME 79.6 FL (80.0-100.0); MEAN CORPUSCULAR HGB CONC 32.6 % (32.0-36.0); MONO % 2.7 % (0.0-8.0); NEUT % 86.2 % (16.0-70.0); PLATELET COUNT 233 TH/MM3 (150-450); RED CELL DISTRIBUTION WIDTH 15.8 % (11.6-17.2); WHITE BLOOD COUNT 8.3 TH/MM3 (4.0-11.0)
[2017-01-08 08:17] LABS: BICARBONATE 29.9 MEQ/L (21.0-32.0); POTASSIUM 3.9 MEQ/L (3.5-5.1)
[2017-01-08] MEDS: SODIUM CHLORIDE 0.9% FLUSH 10 ML FLUSH IV FLUSH SCH ×2 (09:00→22:21)
[2017-01-08] MEDS ORDERED: METOPROLOL TARTRATE 50 MG TAB PO SCH (09:00)
[2017-01-08] MEDS: cefTRIAXone INJ 1,000 MG in SODIUM CHLORIDE 0.9% INJ 100 ML IV SCH (09:00)
[2017-01-08] MEDS ORDERED: SPIRONOLACTONE 25 MG TAB PO SCH (09:15)
[2017-01-08] MEDS ORDERED: LISINOPRIL 5 MG TAB PO SCH ×2 (09:15)
--- NOTE | 2017-01-08 09:24 | HHI.FPPN ---
Subjective Remarks Patient was seen and examined this morning. He had a coughing fit last night after his ~10pm breathing treatment which left his left chest sore. He declined his overnight breathing treatment thereafter. He knows that he is able to breathe okay on room air at this point but does hear himself breathing. He denies any chest pain, nausea, vomiting, urinary or bowel symptoms. He does note that over the last few months it has become progressively more difficult to walk normal distances, e.g., into and out of a restaurant when picking up a to go order. (Dulce Cano MD R1) Objective Vitals Vital Signs Date Time Temp Pulse Resp B/P Pulse Ox O2 Delivery O2 Flow Rate FiO2 01/08/17 09:10 95 21 01/08/17 07:45 97.5 96 18 162/105 95 01/07/17 23:40 98.0 109 18 180/99 94 01/07/17 22:55 20 01/07/17 21:40 98 01/07/17 21:12 91 21 01/07/17 19:23 97.9 100 20 179/100 96 01/07/17 15:27 98.7 101 22 158/97 96 01/07/17 13:36 100 01/07/17 12:51 2.00 01/07/17 12:17 98.6 103 24 169/102 97 I/O 01/07/17 01/07/17 01/07/17 01/08/17 01/08/17 01/08/17 07:00 15:00 23:00 07:00 15:00 23:00 Intake Total 1960 ml 1352 ml Output Total 600 ml Balance 1960 ml 752 ml Intake Oral 960 ml 850 ml IV Total 1000 ml 502 ml Output Urine Total 600 ml # Voids 4 (Dulce Cano MD R1) Result Diagram: 01/08/1772101/08/17721 Imaging Last Impressions Chest X-Ray 01/07/17599 Signed Impressions: Service Date/Time: December 07:47 - CONCLUSION: 1. Cardiomegaly and findings of vascular congestion without overt failure. Natan Lagos MD Abdomen X-Ray 01/07/17599 Signed Impressions: Service Date/Time: December 07:50 - CONCLUSION: 1. No evidence of obstruction. Natan Lagos MD CT Angiography 01/07/17 0000 Signed Impressions: Service Date/Time: December 05:49 - CONCLUSION: 1. Negative for pulmonary embolism. Subsegmental atelectasis at the lung bases. Cardiomegaly. Cristopher Rodriguez MD Objective Remarks GENERAL: Overweight male, sitting up in bed in no obvious distress. On room air. SKIN: No rashes, ecchymoses or lesions. Cool and dry. NECK: Trachea midline. No JVD or lymphadenopathy. Supple, nontender, no meningeal signs. CARDIOVASCULAR: Tachycardic with regular rhythm, no obvious murmurs RESPIRATORY: Crackles noted in all lung lindsey with mild expiratory wheezes, moderate air exchange. GASTROINTESTINAL: Abdomen soft, non-tender, obese. MUSCULOSKELETAL: Extremities without clubbing, cyanosis, or edema. NEUROLOGICAL: Awake and alert. Medications and IVs Inpatient Medications Acetaminophen (Tylenol) 650 mg Q4H PRN PO Pain 1-10, Headache, T>=100.4 Last administered on 01/07/17 21:54; Start 01/06/17 at 21:45 Acetaminophen 1000 mg 1,000 mg ONCE ONCE PO Last administered on 01/06/17 19: 03; Start 01/06/17 at 18:15; Stop 01/06/17 at 18:16; Status DC Albuterol Sulfate (Albuterol Concentrated Neb) 2.5 mg Q2HR NEB PRN NEB SHORTNESS OF BREATH; Start 01/07/17 at 09:00 Albuterol Sulfate (Albuterol Neb) 2.5 mg Q4HR ALT NEB NEB ; Start 01/07/17 at 02:00; Stop 01/07/17 at 02:50; Status DC Albuterol/ Ipratropium (Duoneb Neb) 1 ampule Q6HR NEB NEB Last administered on 01/08/17 09:10; Start 01/07/17 at 10:00 Amlodipine Besylate (Norvasc) 5 mg DAILY PO Last administered on 01/07/17 08: 49; Start 01/07/17 at 09:00; Stop 01/08/17 at 09:10; Status DC Aspirin (Aspirin Chew) 81 mg DAILY PO Last administered on 01/08/17 09:53; Start 01/08/17 at 10:00 Atorvastatin Calcium (Lipitor) 40 mg DAILY PO Last administered on 01/08/17 09 :53; Start 01/08/17 at 09:15 Azithromycin (Zithromax) 500 mg DAILY PO Last administered on 01/08/17 09:52; Start 01/07/17 at 20:00 Azithromycin/ Sodium Chloride (Zithromax Inj/ NS 250 ml Inj) 250 ml @ 250 mls/ hr ONCE ONCE IV Last administered on 01/06/17 20:23; Start 01/06/17 at 19:15 ; Stop 01/06/17 at 20:14; Status DC Benzonatate (Tessalon) 100 mg TID PRN PO COUGH; Start 01/07/17 at 09:00 Ceftriaxone Sodium 1000 mg/ Sodium Chloride 100 ml @ 200 mls/hr ONCE ONCE IV Last administered on 01/06/17 20:34; Start 01/06/17 at 19:15; Stop 01/06/17 at 19:44; Status DC Ceftriaxone Sodium/Sodium Chloride (Rocephin Inj/NS Inj) 100 ml @ 200 mls/hr Q24H IV Last administered on 01/08/17 09:00; Start 01/07/17 at 09:00 Clonidine (Catapres) 0.1 mg ONCE ONCE PO Last administered on 01/07/17 03:20 ; Start 01/07/17 at 03:00; Stop 01/07/17 at 03:09; Status DC Dextrose (D50w (Vial) Inj) 25 ml UNSCH PRN IV PUSH HYPOGLYCEMIA-SEE COMMENTS; Start 01/07/17 at 06:15 Diphenhydramine HCl (Benadryl) 25 mg ONCE ONCE PO Last administered on 01:18; Start 01/07/17 at 01:15; Stop 01/07/17 at 01:16; Status DC Furosemide (Lasix Inj) 40 mg ONCE ONCE IV PUSH Last administered on 01/08/17 09:54; Start 01/08/17 at 09:30; Stop 01/08/17 at 09:31; Status DC Glucagon (Glucagon Inj) 1 mg UNSCH PRN OTHER HYPOGLYCEMIA-SEE COMMENTS; Start 01/07/17 at 06:15 Guaifenesin 600 mg 600 mg BID PRN PO COUGH; Start 01/07/17 at 09:00 Heparin Sodium (Porcine) (Heparin Inj) 5,000 units Q8H SQ Last administered on 01/08/17 06:12; Start 01/06/17 at 23:00 Hydralazine HCl (Apresoline Inj) 10 mg ONCE ONCE IV PUSH Last administered on 01/06/17 20:35; Start 01/06/17 at 19:30; Stop 01/06/17 at 19:31; Status DC Hydralazine HCl (Apresoline) 10 mg Q6HR PRN PO For SBP >= 180 or DBP >= 100. Last administered on 01/06/17 23:52; Start 01/06/17 at 22:30; Stop 01/07/17 at 08:23; Status DC Hydrochlorothiazide (Hydrodiuril) 25 mg DAILY PO Last administered on 09:52; Start 01/08/17 at 10:00 Insulin Aspart 1 1 ACHS SLIDING SCALE SQ Last administered on 01/07/17 11:19 ; Start 01/07/17 at 07:00 Lisinopril (Prinivil) 20 mg DAILY PO ; Start 01/09/17 at 09:00 Methylprednisolone Sodium Succinate (SoluMEDROL INJ) 125 mg ONCE ONCE IVP Last administered on 01/06/17 19:03; Start 01/06/17 at 18:15; Stop 01/06/17 at 18:16; Status DC Metoprolol Tartrate (Lopressor) 50 mg Q12HR PO Last administered on 01/08/17 09:53; Start 01/08/17 at 09:00 Morphine Sulfate (Morphine Inj) 2 mg Q3H PRN IV PUSH PAIN1-10 Last administered on 01/07/17 06:56; Start 01/07/17 at 03:00 Ondansetron HCl (Zofran Inj) 4 mg Q6H PRN IV NAUSEA; Start 01/06/17 at 21:45 Pantoprazole Sodium (Protonix) 40 mg DAILY PO Last administered on 01/08/17 09 :53; Start 01/07/17 at 09:00 Potassium Bicarb/ Potassium Chloride (K-Lyte Cl Eff) 25 meq ONCE ONCE PO Last administered on 3/29/17at 20:35; Start 01/06/17 at 20:00; Stop 01/06/17 at 20:01; Status DC Potassium Chloride (KCl) 30 meq ONCE ONCE PO Last administered on 01/07/17 03 :20; Start 01/07/17 at 03:00; Stop 01/07/17 at 03:09; Status DC Prednisone (Deltasone) 40 mg DAILY PO Last administered on 01/08/17 09:53; Start 01/07/17 at 20:00 Sodium Chloride (NS 1000 ml Inj) 1,000 ml @ 135 mls/hr Q7H25M IV Last administered on 01/08/17 06:12; Start 01/07/17 at 08:15 Sodium Chloride (NS Flush) 2 ml UNSCH PRN IV FLUSH FLUSH AFTER USING IV ACCESS ; Start 01/06/17 at 21:45 (Dulce Cano MD R1) Urinary Catheter: No (Dulce Cano MD R1) Vascular Central Line Catheter: No (Dulce Cano MD R1) A/P Assessment and Plan 46 y/o male with PMH of HTN presents with a 2-day history of shortness of breath , headache, fever, productive cough, and wheezing with chest x-ray from findings concerning for possible pneumonia and cardiomegaly; with an equivocal BNP, concern is for heart failure. Elevated blood pressure with elevated creatinine is concerning for hypertensive emergency. The patient admitted for management with IV antibiotics, breathing treatments, and optimization of antihypertensive regimen. Discharge Planning Pending clinical improvement, optimization of blood pressure and medical management of CAD risk factors (Dulce Cano MD R1) Attending Attestation Pt. examined and case discussed with resident physicians I have read the above note and agree with the assessment/plan as discussed with me I was involved in all medical decision making for this patient Iain Colin MD (Iain Colin MD) Problem List: (1) Community acquired pneumonia Status: Acute Plan: CXR findings likely represent pneumonia and CHF, will treat as community- acquired pneumonia. CHF discussed below. Antibiotic treatment as below: - Rocephin 1 g IV every 24 hours - Azithromycin 500 mg by mouth every 24 hours - Prednisone 40 mg by mouth daily (received Solu-Medrol 125 mg IV 1 in the ED) Meet sepsis criteria on arrival with tachycardia, tachypnea, and fever Lactic acid on arrival normal at 1.3, however increased to 2.8 this morning - Received 1 L normal saline IV bolus 3 - Discontinued IV fluids 01/07 due to fluid overload Blood cultures 2 drawn, no growth to date Urine Legionella antigen negative Influenza screening negative Repeat chest x-ray showing vascular congestion without overt heart failure or effusion -Lasix 40 mg IV 1 on 01/08 Supportive management with: -Duonebs Q6h scheduled for diffuse wheezing -Albuterol Q4h PRN SOB/wheezing alternate with DuoNeb -Tessalon, and Mucinex available as PRNs for cough -Tylenol 650 mg Q6h PRN pain 1-10 of fever greater than 101F -Prednisone 40 mg by mouth daily -Zofran 4mg IV Q6h PRN nausea/vomiting (2) Systolic congestive heart failure with reduced left ventricular function, NYHA class 2 Status: Acute Plan: 2-D echocardiogram 01/07: EF 30-35%, mitral regurgitation, PA P 37 mmHg. Etiology likely prolonged hypertension given no outpatient physician. Patient to be medically managed for HTN and CHF as follows: Metoprolol 50 mg twice per day Lisinopril 20 mg once daily HCTZ 25 mg once daily Continue to monitor vital signs every 4 hours, will adjust regimen while monitoring BP and BMP (3) Sepsis Status: Acute Plan: Repeat lactate today. Can continue gentle IV fluids given meets sepsis criteria. Must balance fluid intake with fluid overload. Treatment as above for community-acquired pneumonia. (4) Hypertensive emergency Status: Acute Plan: Patient is evidence of heart failure with reduced EF per echo completed (discussed below). Blood pressure has remained elevated with metoprolol and amlodipine; given new findings on echo which are discussed below, will adjust PO antihypertensive regimen as discussed above. Continue as needed medications with: Clonidine 0.1 mg every 6 hours as needed EKG shows left ventricular hypertrophy with marked right axis deviation, ST changes in V1, V2, V3, V4 were present in previous EKG on 04/21/16 2-D echocardiogram 01/07: EF 30-35%, mitral regurgitation, PAP 37 mmHg (5) [id number] kidney injury Status: Acute Plan: Renal function mildly worsening likely due to hypertensive urgency versus sepsis - Creatinine on arrival was 1.54, 1.59 today Received IV fluids on admission with normal saline 1 L IV bolus 3 - Started on IV fluids with normal saline at 135 mL/hour however repeat chest x- ray showing vascular congestion - Decrease IV fluids to 75 mL/hour for gentle IV hydration given vascular congestion on x-ray Avoid nephrotoxic agents Monitor with daily BMPs (6) Hypokalemia Status: Acute Plan: Resolved with potassium of 3.8 today -Received 25 MeQ in the ED Check daily BMPs and replenish as needed (7) Chronic medical problems Status: Acute Plan: -Random glucose elevated at 145 -A1c is 7.7, will need outpatient follow-up for diabetes, will add SSI low dose to inpatient regimen with Accucheks -Lipid panel is abnormal, atorvastatin 40 mg are today, will switch to a lower cost statin prior to discharge -TSH within normal limits at 1.09 (8) FEN/DVT PPX/GI PPX Status: Acute Plan: Fluids: Oral fluids and normal saline at 75 mL/hour Electrolytes: Will monitor and replace as needed, magnesium and phosphorus within normal limits Nutrition: Regular adult diet DVT Prophylaxis: heparin subcutaneous every 8 hours GI Prophylaxis: Protonix 40mg PO daily AM labs: CBC, CMP, BNP (Dulce Cano MD R1) Dulce Cano MD R1 Jan 08, 2017 09:24 Iain Colin MD Jan 08, 2017 18:20
[2017-01-08] MEDS ORDERED: FUROSEMIDE 40 MG/4 ML VIAL IV PUSH ONE (09:30)
[2017-01-08] MEDS: AZITHROMYCIN 250 MG TAB PO SCH (09:52)
[2017-01-08] MEDS: HYDROCHLOROTHIAZIDE 25 MG TAB PO SCH (09:52)
[2017-01-08] MEDS: predniSONE 20 MG TAB PO SCH (09:53)
[2017-01-08] MEDS: ATORVASTATIN 40 MG TAB PO SCH (09:53)
[2017-01-08] MEDS: ASPIRIN 81 MG CHEW TAB PO SCH (09:53)
[2017-01-08] MEDS: PANTOPRAZOLE SOD 40 MG DELAYED RELEASE TAB PO SCH (09:53)
[2017-01-08] MEDS ORDERED: LISINOPRIL 20 MG TAB PO SCH (12:00)
[2017-01-08 14:31] LABS: INDIRECT BILIRUBIN 0.2 MG/DL (0.0-0.8); TOTAL BILIRUBIN ADULT 0.3 MG/DL (0.2-1.0)
[2017-01-08] MEDS: cloNIDine HCL 0.1 MG TAB PO PRN ×2 (15:14→22:20)
--- NOTE | 2017-01-08 15:24 | HHI.PR ---
Addendum to Inpatient Note Addendum Reason: Additional Documentation Additional Information Subjective: Patient was re-evaluated at 1500. He feels well in regard to breathing but notes headache and shaking of the hands which he attributes to his BP. No chest pain or blurry vision. His breathing treatments are well-tolerated today. Objective: Gen: sitting up on room air on phone in NAD. CV: RRR, no additional heart sounds or murmurs Resp: still with expiratory wheezing and crackles, but breathing comfortably on room air Extremities: mild finger swelling of left, IV in this arm as well. No evidence of tremor. No evidence of swelling of the LEs. 2+ pulses throughout. Assessment/Plan: 46M with admitted for CAP and hypertensive urgency vs. emergency, new diagnosis of CHF with EF 35% with persistent HTN likely contributing to RAFAELA vs. CKD. -s/p Lasix 40mg IV this morning with reportedly good diuresis -EKG and troponin ordered --> unchanged from admission, significant for LVH, sinus rhythm, rate 94, baseline ST-T changes in V1-V3 not different from 01/06 and 04/2016 -Give PRN clonidine as prescribed -Will give metoprolol 50mg dose now, tentative increase metoprolol to 100mg BID -d/c IVF -lactate is persistently elevated, unclear etiology, will trend but likely secondary to HTN, hypoxia. Will consider broadening antibiotics and restarting fluids if indicated. - Monitor VS q3 hr until BP better controlled dw Dulce Brown MD R1 Jan 08, 2017 15:24
[2017-01-08] MEDS ORDERED: METOPROLOL TARTRATE 50 MG TAB PO ONE (15:30)
[2017-01-08 16:45] LABS: BLOOD GAS VENOUS BASE EXCESS 5.7 mmol/L (-2-2); BLOOD GAS VENOUS HCO3 30 mmol/L (22-26); BLOOD GAS VENOUS O2 CONTENT 10.6 Vol % (9.0-17.0); BLOOD GAS VENOUS O2 HGB SAT 58 % (70-76); BLOOD GAS VENOUS PCO2 48 mmHg (44-48); BLOOD GAS VENOUS PO2 32 mmHg (35-40); BLOOD GAS VENOUS pH 7.41 (7.360-7.400); TEMP CORR TO 98.6
[2017-01-08 16:46] LABS: CRITICAL VALUE NO; DRAW SITE IV; OXYGEN DEVICE ROOM AIR; STAT NO
[2017-01-08] MEDS ORDERED: hydrALAZINE HCL 20 MG/ML VIAL IV PUSH ONE (18:30)
[2017-01-08] MEDS: ENALAPRILAT 1.25 MG/ML VIAL IV PUSH PRN (18:45)
[2017-01-08] MEDS: ACETAMINOPHEN 325 MG TAB PO PRN (22:20)
[2017-01-09] VITALS (11 sets, daily range): BP systolic 142–174; BP diastolic 77–107; PULSE 81–97; RESP 18–20; TEMP 97.2–98.5; O2SAT 94–100
[2017-01-09] MEDS ORDERED: LISINOPRIL 20 MG TAB PO STA (01:12)
[2017-01-09] MEDS ORDERED: ACETAMINOPHEN/HYDROcodone 325 MG/5 MG TAB PO ONE (01:15)
[2017-01-09] MEDS: ENALAPRILAT 1.25 MG/ML VIAL IV PUSH PRN (01:18)
[2017-01-09] MEDS ORDERED: MORPHINE SULFATE 4 MG/ML INJ IV PUSH PRN (03:00)
[2017-01-09] MEDS: RESP: ALBUTEROL 2.5 MG/IPRATROPIUM 0.5 MG NEB (SCH) NEB ×4 (04:08→21:00)
[2017-01-09] MEDS: cloNIDine HCL 0.1 MG TAB PO PRN ×2 (05:01→16:22)
[2017-01-09] MEDS: INSULIN ASPART SUPPLEMENTAL SCALE SQ SCH ×4 (05:07→20:09)
[2017-01-09] MEDS: HEPARIN SODIUM - SQ 10,000 UNITS/ML VIAL SQ SCH ×3 (05:08→23:00)
--- NOTE | 2017-01-09 08:09 | RADRPT ---
EXAM DATE/TIME: 01/09/2017 07:54 [facility] COMPARISON: CHEST SINGLE AP, January 06, 2017, 18:25. INDICATIONS : Shortness of breath MEDICAL HISTORY : Hypertension. cardiovascular disease. SURGICAL HISTORY : None. ENCOUNTER: Subsequent ACUITY: 3 days PAIN SCORE: 0/10 LOCATION: Bilateral chest FINDINGS: A single view of the chest demonstrates the lungs to be symmetrically aerated without evidence of mas s, infiltrate or effusion. The cardiac silhouette is prominent with left ventricular prominence.. O sseous structures are intact. CONCLUSION: No acute disease. Prominent left ventricle. Kalen Reece MD FACR on January 09, 2017 at 8:07 Board Certified Radiologist. This report was verified electronically.
[2017-01-09] MEDS: AZITHROMYCIN 250 MG TAB PO SCH (08:23)
[2017-01-09] MEDS: SODIUM CHLORIDE 0.9% FLUSH 10 ML FLUSH IV FLUSH SCH ×2 (08:23→20:08)
[2017-01-09] MEDS: cefTRIAXone INJ 1,000 MG in SODIUM CHLORIDE 0.9% INJ 100 ML IV SCH (08:23)
[2017-01-09] MEDS: predniSONE 20 MG TAB PO SCH (08:24)
[2017-01-09] MEDS: ATORVASTATIN 40 MG TAB PO SCH (08:25)
[2017-01-09] MEDS: PANTOPRAZOLE SOD 40 MG DELAYED RELEASE TAB PO SCH (08:25)
[2017-01-09] MEDS: ASPIRIN 81 MG CHEW TAB PO SCH (08:25)
[2017-01-09] MEDS: hydrALAZINE HCL 10 MG TAB PO SCH ×3 (08:32→20:04)
[2017-01-09] MEDS: LISINOPRIL 20 MG TAB PO SCH (08:32)
[2017-01-09] MEDS: HYDROCHLOROTHIAZIDE 25 MG TAB PO SCH (08:33)
[2017-01-09] MEDS: METOPROLOL TARTRATE 100 MG TAB PO SCH ×2 (08:34→20:05)
[2017-01-09] MEDS ORDERED: LISINOPRIL 20 MG TAB PO SCH (09:00)
--- NOTE | 2017-01-09 09:14 | HHI.FPPN ---
Subjective Remarks Patient was seen and examined this morning. He states he feels much better, but did have a headache which kept him up until early this morning. That is now gone. Also not having trouble breathing like he was before. No chest pain. Getting up and moving around, normal urinary and bowel function. VS were taken around 9am today: 147/77, pulse 81, after four BP meds. He does state that the ultrasound and radiology techs have completed his renal ultrasound and chest x- ray this morning. (Dulce Cano MD R1) Objective Vitals Vital Signs Date Time Temp Pulse Resp B/P Pulse Ox O2 Delivery O2 Flow Rate FiO2 01/09/17 04:12 98.0 92 18 170/91 98 01/09/17 00:51 97.9 97 18 174/96 98 01/08/17 22:04 98 01/08/17 22:01 98.7 110 18 174/104 168/102 01/08/17 20:01 108 01/08/17 18:58 163/107 01/08/17 16:52 97.3 95 20 184/115 97 01/08/17 15:04 97.7 95 16 174/116 96 01/08/17 11:40 97.6 99 18 173/110 95 I/O 01/08/17 01/08/17 01/08/17 01/09/17 01/09/17 01/09/17 07:00 15:00 23:00 07:00 15:00 23:00 Intake Total 1352 ml 480 ml Output Total 600 ml Balance 752 ml 480 ml Intake Oral 850 ml 480 ml IV Total 502 ml Output Urine Total 600 ml # Voids 7 # Bowel Movements 0 (Dulce Cano MD R1) Result Diagram: 01/08/1722 01/08/1722 Imaging Last Impressions Chest X-Ray 01/09/17 0000 Signed Impressions: Service Date/Time: Monday, January 09, 2017 07:54 - CONCLUSION: No acute disease. Prominent left ventricle. Kalen Reece MD FACR Abdomen X-Ray 01/07/17 0600 Signed Impressions: Service Date/Time: December 07:50 - CONCLUSION: 1. No evidence of obstruction. Natan Lagos MD CT Angiography 01/07/17 0000 Signed Impressions: Service Date/Time: December 05:49 - CONCLUSION: 1. Negative for pulmonary embolism. Subsegmental atelectasis at the lung bases. Cardiomegaly. Cristopher Rodriguez MD Objective Remarks GENERAL: Overweight male, sitting up in bed in no obvious distress. On room air. SKIN: No rashes, ecchymoses or lesions. Cool and dry. NECK: Trachea midline. No JVD or lymphadenopathy. Supple, nontender, no meningeal signs. CARDIOVASCULAR: Tachycardic with regular rhythm, no obvious murmurs RESPIRATORY: Crackles noted in all lung lindsey with mild expiratory wheezes, moderate air exchange. GASTROINTESTINAL: Abdomen soft, non-tender, obese. MUSCULOSKELETAL: Extremities without clubbing, cyanosis, or edema. NEUROLOGICAL: Awake and alert. Medications and IVs Inpatient Medications Acetaminophen (Tylenol) 650 mg Q4H PRN PO Pain 1-10, Headache, T>=100.4 Last administered on 01/08/17 22:20; Start 01/06/17 at 21:45 Acetaminophen 1000 mg 1,000 mg ONCE ONCE PO Last administered on 01/06/17 19: 03; Start 01/06/17 at 18:15; Stop 01/06/17 at 18:16; Status DC Acetaminophen/ Hydrocodone Bitart ([place] 5-325 Mg) 1 tab ONCE ONCE PO Last administered on 01/09/17 01:34; Start 01/09/17 at 01:15; Stop 01/09/17 at 01:16; Status DC Albuterol Sulfate (Albuterol Concentrated Neb) 2.5 mg Q2HR NEB PRN NEB SHORTNESS OF BREATH; Start 01/07/17 at 09:00 Albuterol Sulfate (Albuterol Neb) 2.5 mg Q4HR ALT NEB NEB ; Start 01/07/17 at 02:00; Stop 01/07/17 at 02:50; Status DC Albuterol/ Ipratropium (Duoneb Neb) 1 ampule Q6HR NEB NEB Last administered on 01/09/17 04:08; Start 01/07/17 at 10:00 Amlodipine Besylate (Norvasc) 5 mg DAILY PO Last administered on 01/07/17 08: 49; Start 01/07/17 at 09:00; Stop 01/08/17 at 09:10; Status DC Aspirin (Aspirin Chew) 81 mg DAILY PO Last administered on 01/09/17 08:25; Start 01/08/17 at 10:00 Atorvastatin Calcium (Lipitor) 40 mg DAILY PO Last administered on 01/09/17 08: 25; Start 01/08/17 at 09:15 Azithromycin (Zithromax) 500 mg DAILY PO Last administered on 01/09/17 08:23; Start 01/07/17 at 20:00 Azithromycin/ Sodium Chloride (Zithromax Inj/ NS 250 ml Inj) 250 ml @ 250 mls/ hr ONCE ONCE IV Last administered on 01/06/17 20:23; Start 01/06/17 at 19:15 ; Stop 01/06/17 at 20:14; Status DC Benzonatate (Tessalon) 100 mg TID PRN PO COUGH; Start 01/07/17 at 09:00 Ceftriaxone Sodium 1000 mg/ Sodium Chloride 100 ml @ 200 mls/hr ONCE ONCE IV Last administered on 01/06/17 20:34; Start 01/06/17 at 19:15; Stop 01/06/17 at 19:44; Status DC Ceftriaxone Sodium/Sodium Chloride (Rocephin Inj/NS Inj) 100 ml @ 200 mls/hr Q24H IV Last administered on 01/09/17 08:23; Start 01/07/17 at 09:00 Clonidine (Catapres) 0.1 mg ONCE ONCE PO Last administered on 01/07/17 03:20 ; Start 01/07/17 at 03:00; Stop 01/07/17 at 03:09; Status DC Dextrose (D50w (Vial) Inj) 25 ml UNSCH PRN IV PUSH HYPOGLYCEMIA-SEE COMMENTS; Start 01/07/17 at 06:15 Diphenhydramine HCl (Benadryl) 25 mg ONCE ONCE PO Last administered on 01:18; Start 01/07/17 at 01:15; Stop 01/07/17 at 01:16; Status DC Enalaprilat (Vasotec Inj) 1.25 mg Q6H PRN IV PUSH SBP>170, DBP>100 Last administered on 01/09/17 01:18; Start 01/08/17 at 18:30 Furosemide (Lasix Inj) 40 mg ONCE ONCE IV PUSH Last administered on 01/08/17 09:54; Start 01/08/17 at 09:30; Stop 01/08/17 at 09:31; Status DC Glucagon (Glucagon Inj) 1 mg UNSCH PRN OTHER HYPOGLYCEMIA-SEE COMMENTS; Start 01/07/17 at 06:15 Guaifenesin 600 mg 600 mg BID PRN PO COUGH; Start 01/07/17 at 09:00 Heparin Sodium (Porcine) (Heparin Inj) 5,000 units Q8H SQ Last administered on 01/09/17 05:08; Start 01/06/17 at 23:00 Hydralazine HCl (Apresoline Inj) 20 mg ONCE ONCE IV PUSH Last administered on 01/08/17 18:44; Start 01/08/17 at 18:30; Stop 01/08/17 at 18:31; Status DC Hydralazine HCl (Apresoline) 10 mg Q6H PO Last administered on 01/09/17 08:32; Start 01/09/17 at 08:00 Hydrochlorothiazide (Hydrodiuril) 25 mg DAILY PO Last administered on 01/09/17 08:33; Start 01/08/17 at 10:00 Insulin Aspart 1 1 ACHS SLIDING SCALE SQ Last administered on 01/09/17 05:07; Start 01/07/17 at 07:00 Lisinopril (Prinivil) 40 mg DAILY PO Last administered on 01/09/17 08:32; Start 01/09/17 at 09:00 Methylprednisolone Sodium Succinate (SoluMEDROL INJ) 125 mg ONCE ONCE IVP Last administered on 01/06/17 19:03; Start 01/06/17 at 18:15; Stop 01/06/17 at 18:16; Status DC Metoprolol Tartrate (Lopressor) 100 mg Q12HR PO Last administered on 01/09/17 08:34; Start 01/09/17 at 09:00 Morphine Sulfate (Morphine Inj) 2 mg Q3H PRN IV PUSH PAIN 5-10; Start 01/09/17 at 03:00; Stop 01/09/17 at 03:00; Status DC Ondansetron HCl (Zofran Inj) 4 mg Q6H PRN IV NAUSEA; Start 01/06/17 at 21:45 Pantoprazole Sodium (Protonix) 40 mg DAILY PO Last administered on 01/09/17 08: 25; Start 01/07/17 at 09:00 Potassium Bicarb/ Potassium Chloride (K-Lyte Cl Eff) 25 meq ONCE ONCE PO Last administered on 01/06/17 20:35; Start 01/06/17 at 20:00; Stop 01/06/17 at 20:01; Status DC Potassium Chloride (KCl) 30 meq ONCE ONCE PO Last administered on 01/07/17 03 :20; Start 01/07/17 at 03:00; Stop 01/07/17 at 03:09; Status DC Prednisone (Deltasone) 40 mg DAILY PO Last administered on 01/09/17 08:24; Start 01/07/17 at 20:00 Sodium Chloride (NS 1000 ml Inj) 1,000 ml @ 75 mls/hr [id number] IV Last administered on 01/08/17 06:12; Start 01/07/17 at 08:15; Stop 01/08/17 at 15:21 ; Status DC Sodium Chloride (NS Flush) 2 ml UNSCH PRN IV FLUSH FLUSH AFTER USING IV ACCESS ; Start 01/06/17 at 21:45 (Dulce Cano MD R1) Urinary Catheter: No (Dulce Cano MD R1) Vascular Central Line Catheter: No (Dulce Cano MD R1) A/P Assessment and Plan 46 y/o male with PMH of HTN presents with a 2-day history of shortness of breath , headache, fever, productive cough, and wheezing with chest x-ray from findings concerning for possible pneumonia and cardiomegaly; with an equivocal BNP, concern is for heart failure. Elevated blood pressure with elevated creatinine is concerning for hypertensive emergency. The patient admitted for management with IV antibiotics, breathing treatments, and optimization of antihypertensive regimen. Discharge Planning Possibly 1-2 days, pending clinical improvement, optimization of blood pressure and medical management of CAD risk factors (Dulce Cano MD R1) Attending Attestation Pt. examined and case discussed with resident physician I have read the above note and agree with the assessment/plan as discussed with me I was involved in all medical decision making for this patient Iain Colin MD (Iain Colin MD) Problem List: (1) Community acquired pneumonia Status: Acute Plan: Symptoms have improved tremendously. He is on room air. Continue IV antibiotics, will transition to PO antibiotics prior to discharge for total 7 day course. Hospital Course: CXR findings likely represent pneumonia and CHF, will treat as community- acquired pneumonia. CHF discussed below. Antibiotic treatment as below: - Rocephin 1 g IV every 24 hours - Azithromycin 500 mg by mouth every 24 hours - Prednisone 40 mg by mouth daily (received Solu-Medrol 125 mg IV 1 in the ED) Meet sepsis criteria on arrival with tachycardia, tachypnea, and fever Lactic acid on arrival normal at 1.3, however increased to 2.8 01/08, now wnl - Received 1 L normal saline IV bolus 3 - Discontinued IV fluids 01/07 due to fluid overload Blood cultures 2 drawn, no growth to date Urine Legionella antigen negative Influenza screening negative Repeat chest x-ray showing vascular congestion without overt heart failure or effusion CXR 01/09 showing no sign of infiltrate. -Lasix 40 mg IV 1 on 01/08 -HCTZ was initiated for hypertension, likely serving to diurese as well Supportive management with: -Duonebs Q6h scheduled for diffuse wheezing -Albuterol Q4h PRN SOB/wheezing alternate with DuoNeb -Tessalon, and Mucinex available as PRNs for cough -Tylenol 650 mg Q6h PRN pain 1-10 of fever greater than 101F -[place] 5 every 6 when necessary breakthrough rib pain related to coughing -Prednisone 40 mg by mouth daily -Zofran 4mg IV Q6h PRN nausea/vomiting (2) Systolic congestive heart failure with reduced left ventricular function, NYHA class 2 Status: Acute Plan: CXR 01/09 improved from study on 01/07 in regard to vascular congestion in addition to no discrete infiltrate suggestive. Lung exam still suggest fluid overload but diuresis good on HCTZ. Breathing on room air comfortably. Will monitor clinically. Hospital Course: 2-D echocardiogram 01/07: EF 30-35%, mitral regurgitation, PA P 37 mmHg. Etiology likely prolonged hypertension given no outpatient physician. Patient to be medically managed for HTN and CHF as follows: Metoprolol 100 mg twice per day (increased 01/08) Lisinopril 40 mg once daily (increased 01/08) HCTZ 25 mg once daily Add hydralazine 10mg q6hr on 01/09 Continue to monitor vital signs every 4 hours, will adjust regimen while monitoring BP and BMP (3) Diabetes type 2, uncontrolled Status: Acute Plan: Continue low-dose sliding scale NovoLog Patient will require outpatient follow-up, possibly to initiate on insulin medications prior to initiating insulin as outpatient. Patient does have a creatinine of 1.5, likely his baseline. May consider a sulfonylurea Hospital course: Patient noted to have elevated random glucose on admission, fasting glucose up to 352 this hospital stay. He has been on low-dose sliding scale and noted to need up to 3 units NovoLog based on Accu-Cheks. A1c is 7.7 -Lipid panel is abnormal, atorvastatin 40 mg started initiated, if cost prohibitive to continue his outpatient would switch to a lower cost agent ( possibly simvastatin) (4) Hypertension Status: Acute Plan: Management as follows with VS q3hr: Metoprolol 100 mg twice per day (increased 01/08) Lisinopril 40 mg once daily (increased 01/08) HCTZ 25 mg once daily Hydralazine 10mg q6hr started on 01/09 Renal US ordered to assess renal anatomy; microalb/creat ratio elevated suggestive of chronic kidney disease (like HTN vs DM etiology) May need to change HTN medication timing given he gets multiple in the morning Hospital Course: Patient has evidence of heart failure with reduced EF per echo completed 01/07 ( discussed elsewhere). Blood pressure remained elevated with metoprolol and amlodipine, will adjust PO antihypertensive regimen as discussed above. Continue as needed medications for BP >170/100 with: Clonidine 0.1 mg every 6 hours as needed He has required multiple doses of PRN antihypertensives over course of hospital stay EKGs show left ventricular hypertrophy with marked right axis deviation, ST changes in V1, V2, V3, V4 were present in previous EKG on 04/21/16 Initial troponins negative at 0.033 Repeat troponin and EKG on 01/08 unchanged 2-D echocardiogram 01/07: EF 30-35%, mitral regurgitation, PAP 37 mmHg (5) [id number] kidney injury Status: Acute Plan: Patient likely has early CKD; creatinine in December 2015 and April 2016 similar to creatinine on arrival (1.54) Renal function mildly worsening likely due to hypertensive urgency versus sepsis Some improvement noted, pending in .31 on 01/09 Avoid nephrotoxic agents Monitor with daily BMPs Hospital course: Received IV fluids on admission with normal saline 1 L IV bolus 3 - Started on IV fluids with normal saline at 135 mL/hour however repeat chest x- ray showing vascular congestion - Decrease IV fluids to 75 mL/hour for gentle IV hydration given vascular congestion on x-ray - Discontinued IV fluids on 01/08 (6) Sepsis Status: Resolved Plan: Repeat lactate wnl on 01/08. IVF d/c'd 01/08 due to CHF. Treatment as above for community-acquired pneumonia. (7) Hypokalemia Status: Resolved Plan: Resolved. -Received 25 MeQ in the ED Check daily BMPs and replenish as needed (8) FEN/DVT PPX/GI PPX Status: Acute Plan: Fluids: Oral fluids Electrolytes: Will monitor and replace as needed Nutrition: Heart healthy diet, ADA 1999 DVT Prophylaxis: heparin subcutaneous every 8 hours GI Prophylaxis: not indicated Case mgmt for PCP establishment needed (Dulce Cano MD R1) Dulce Cano MD R1 Jan 09, 2017 09:14 Iain Colin MD Jan 09, 2017 13:12
[2017-01-09 09:20] LABS: WHITE BLOOD COUNT 8.6 TH/MM3 (4.0-11.0)
[2017-01-09 09:21] LABS: AUTOMATED NEUTROPHIL # 4.8 TH/MM3 (1.8-7.7); BASOPHIL % 0.3 % (0.0-2.0); EOSINOPHIL % 0.2 % (0.0-4.0); HEMATOCRIT 39.5 % (39.0-51.0); HEMO FLAGS DIFF FINAL; LYMPH % 32.3 % (9.0-44.0); LYMPHOCYTE # 2.8 TH/MM3 (1.0-4.8); MEAN CELL VOLUME 78.5 FL (80.0-100.0); MEAN CORPUSCULAR HEMOGLOBIN 25.7 PG (27.0-34.0); MEAN CORPUSCULAR HGB CONC 32.7 % (32.0-36.0); NEUT % 56.2 % (16.0-70.0); PLATELET COUNT 267 TH/MM3 (150-450); RED BLOOD COUNT 5.04 MIL/MM3 (4.50-5.90); RED CELL DISTRIBUTION WIDTH 15.7 % (11.6-17.2)
--- NOTE | 2017-01-09 10:23 | RADRPT ---
EXAM DATE/TIME: 01/09/2017 08:01 [facility] COMPARISON: CT PULMONARY ANGIOGRAM, January 07, 2017, 5:49. INDICATIONS : Increased labs. MEDICAL HISTORY : Hypertension. Cerebrovascular accident. Headache. Dyspnea. Gastrointestinal disorders. Urinary fr equency. SURGICAL HISTORY : None. ENCOUNTER: Initial ACUITY: 1 day PAIN SCORE: 0/10 LOCATION: Bilateral flank MEASUREMENTS: RIGHT KIDNEY: 11.1 x 5.3 x 5.9 cm LEFT KIDNEY: 11.4 x 4.7 x 5.4 cm FINDINGS: RIGHT KIDNEY: Renal cortex is normal in thickness and echotexture. Small stone right upper pole without hydronephr osis. mass. LEFT KIDNEY: Renal cortex is normal in thickness and echotexture. No hydronephrosis, stone, or mass. BLADDER: Within normal limits given the degree of distension. CONCLUSION: Small nonobstructing right renal stone. Kalen Reece MD FACR on January 09, 2017 at 10:20 Board Certified Radiologist. This report was verified electronically.
[2017-01-09 11:37] LABS: ALKALINE PHOSPHATASE 48 U/L (45-117); ALT (GPT) 19 U/L (12-78); ANION GAP 6 MEQ/L (5-15); AST (GOT) 25 U/L (15-37); BLOOD UREA NITROGEN 24 MG/DL (7-18); CHLORIDE 98 MEQ/L (98-107); GLOMERULAR FILTRATION RATE 72 ML/MIN (>89); POTASSIUM 3.4 MEQ/L (3.5-5.1); SODIUM (NA) 138 MEQ/L (136-145); TOTAL BILIRUBIN ADULT 0.3 MG/DL (0.2-1.0)
[2017-01-09] MEDS ORDERED: ACETAMINOPHEN/HYDROcodone 325 MG/5 MG TAB PO PRN (12:45)
[2017-01-09] MEDS: ACETAMINOPHEN 325 MG TAB PO PRN (18:34)
[2017-01-10] VITALS (10 sets, daily range): BP systolic 142–161; BP diastolic 87–105; PULSE 73–98; RESP 18–22; TEMP 97.3–98.4; O2SAT 95–98
[2017-01-10] MEDS: hydrALAZINE HCL 10 MG TAB PO SCH ×2 (01:57→09:05)
[2017-01-10] MEDS: RESP: ALBUTEROL 2.5 MG/IPRATROPIUM 0.5 MG NEB (SCH) NEB ×4 (04:00→20:00)
[2017-01-10] MEDS: HEPARIN SODIUM - SQ 10,000 UNITS/ML VIAL SQ SCH ×3 (05:47→21:16)
[2017-01-10] MEDS: INSULIN ASPART SUPPLEMENTAL SCALE SQ SCH ×4 (05:47→21:12)
[2017-01-10 07:58] LABS: AUTOMATED NEUTROPHIL # 4.8 TH/MM3 (1.8-7.7); BASOPHIL % 0.5 % (0.0-2.0); EOSINOPHIL % 0.3 % (0.0-4.0); HEMATOCRIT 38.1 % (39.0-51.0); HEMO FLAGS DIFF FINAL; LYMPH % 36.2 % (9.0-44.0); LYMPHOCYTE # 3.2 TH/MM3 (1.0-4.8); MEAN CELL VOLUME 78.5 FL (80.0-100.0); MEAN CORPUSCULAR HEMOGLOBIN 25.8 PG (27.0-34.0); MEAN CORPUSCULAR HGB CONC 32.8 % (32.0-36.0); MONO % 8.5 % (0.0-8.0); NEUT % 54.5 % (16.0-70.0); PLATELET COUNT 268 TH/MM3 (150-450); RED BLOOD COUNT 4.85 MIL/MM3 (4.50-5.90); RED CELL DISTRIBUTION WIDTH 15.9 % (11.6-17.2); WHITE BLOOD COUNT 8.9 TH/MM3 (4.0-11.0)
[2017-01-10 08:26] LABS: BICARBONATE 32.5 MEQ/L (21.0-32.0); POTASSIUM 3.3 MEQ/L (3.5-5.1)
[2017-01-10] MEDS: cefTRIAXone INJ 1,000 MG in SODIUM CHLORIDE 0.9% INJ 100 ML IV SCH (09:02)
[2017-01-10] MEDS: ASPIRIN 81 MG CHEW TAB PO SCH (09:03)
[2017-01-10] MEDS: predniSONE 20 MG TAB PO SCH (09:03)
[2017-01-10] MEDS: METOPROLOL TARTRATE 100 MG TAB PO SCH ×2 (09:04→21:10)
[2017-01-10] MEDS: LISINOPRIL 20 MG TAB PO SCH (09:04)
[2017-01-10] MEDS: HYDROCHLOROTHIAZIDE 25 MG TAB PO SCH (09:04)
[2017-01-10] MEDS: AZITHROMYCIN 250 MG TAB PO SCH (09:05)
[2017-01-10] MEDS: ATORVASTATIN 40 MG TAB PO SCH (09:05)
[2017-01-10] MEDS: SODIUM CHLORIDE 0.9% FLUSH 10 ML FLUSH IV FLUSH SCH ×2 (09:21→21:09)
--- NOTE | 2017-01-10 09:54 | HHI.FPPN ---
Subjective Remarks Patient seen and examined this morning. He states he feels ready to go home today but is agreeable to stay another day if needed. He has no shortness of breath with ambulation. He can no longer hear himself wheezing. He has headaches on and off but states these are better as well and go away on. ( Dulce Cano MD R1) Objective Vitals Vital Signs Date Time Temp Pulse Resp B/P Pulse Ox O2 Delivery O2 Flow Rate FiO2 01/10/17 08:27 98.2 76 18 161/105 95 01/10/17 04:00 97.9 73 20 147/87 98 01/10/17 00:00 Room Air 01/09/17 22:00 97.8 83 20 157/85 96 01/09/17 20:53 Room Air 01/09/17 20:00 88 01/09/17 20:00 97.2 87 20 142/97 100 01/09/17 17:16 84 01/09/17 15:24 94 21 01/09/17 15:00 98.5 86 18 166/107 94 01/09/17 14:00 158/91 01/09/17 11:00 98.1 84 20 146/86 95 I/O 01/09/17 01/09/17 01/09/17 01/10/17 01/10/17 01/10/17 07:00 15:00 23:00 07:00 15:00 23:00 Intake Total 340 ml 480 ml Output Total 700 ml Balance -360 ml 480 ml Intake Oral 240 ml 480 ml IV Total 100 ml Output Urine Total 700 ml # Voids 3 # Bowel Movements 1 (Dulce Cano MD R1) Result Diagram: 01/10/17 0700 01/10/17 0700 Imaging Last Impressions Renal Ultrasound 01/09/17 0000 Signed Impressions: Service Date/Time: Monday, January 09, 2017 08:01 - CONCLUSION: Small nonobstructing right renal stone. Kalen Reece MD FACR Chest X-Ray 01/09/17 0000 Signed Impressions: Service Date/Time: Monday, January 09, 2017 07:54 - CONCLUSION: No acute disease. Prominent left ventricle. Kalen Reece MD FACR Abdomen X-Ray 01/07/17 0600 Signed Impressions: Service Date/Time: December 07:50 - CONCLUSION: 1. No evidence of obstruction. Natan Lagos MD CT Angiography 01/07/17 0000 Signed Impressions: Service Date/Time: December 05:49 - CONCLUSION: 1. Negative for pulmonary embolism. Subsegmental atelectasis at the lung bases. Cardiomegaly. Cristopher Rodriguez MD Objective Remarks GENERAL: Overweight male, sitting up in bed in no obvious distress. On room air. SKIN: No rashes, ecchymoses or lesions. Cool and dry. NECK: Trachea midline. No JVD or lymphadenopathy. Supple, nontender, no meningeal signs. CARDIOVASCULAR: Tachycardic with regular rhythm, no obvious murmurs. RESPIRATORY: Crackles no longer noted. Mild expiratory wheezes, moderate air exchange. GASTROINTESTINAL: Abdomen soft, non-tender, obese. MUSCULOSKELETAL: Extremities without clubbing, cyanosis, or edema. NEUROLOGICAL: Awake and alert. Medications and IVs Inpatient Medications Acetaminophen (Tylenol) 650 mg Q4H PRN PO Pain 1-10, Headache, T>=100.4 Last administered on 01/09/17 18:34; Start 01/06/17 at 21:45 Acetaminophen 1000 mg 1,000 mg ONCE ONCE PO Last administered on 01/06/17 19: 03; Start 01/06/17 at 18:15; Stop 01/06/17 at 18:16; Status DC Acetaminophen/ Hydrocodone Bitart (Linton 5-325 Mg) 1 tab Q6H PRN PO BREAKTHROUGH PAIN Last administered on 01/09/17 20:05; Start 01/09/17 at 12:45 Albuterol Sulfate (Albuterol Concentrated Neb) 2.5 mg Q2HR NEB PRN NEB SHORTNESS OF BREATH; Start 01/07/17 at 09:00 Albuterol Sulfate (Albuterol Neb) 2.5 mg Q4HR ALT NEB NEB ; Start 01/07/17 at 02:00; Stop 01/07/17 at 02:50; Status DC Albuterol/ Ipratropium (Duoneb Neb) 1 ampule Q6HR NEB NEB Last administered on 01/09/17 21:00; Start 01/07/17 at 10:00 Amlodipine Besylate (Norvasc) 5 mg DAILY PO Last administered on 01/07/17 08: 49; Start 01/07/17 at 09:00; Stop 01/08/17 at 09:10; Status DC Aspirin (Aspirin Chew) 81 mg DAILY PO Last administered on 01/10/17 09:03; Start 01/08/17 at 10:00 Atorvastatin Calcium (Lipitor) 40 mg DAILY PO Last administered on 01/10/17 09: 05; Start 01/08/17 at 09:15 Azithromycin (Zithromax) 500 mg DAILY PO Last administered on 01/10/17 09:05; Start 01/07/17 at 20:00 Azithromycin/ Sodium Chloride (Zithromax Inj/ NS 250 ml Inj) 250 ml @ 250 mls/ hr ONCE ONCE IV Last administered on 01/06/17 20:23; Start 01/06/17 at 19:15 ; Stop 01/06/17 at 20:14; Status DC Benzonatate (Tessalon) 100 mg TID PRN PO COUGH; Start 01/07/17 at 09:00 Ceftriaxone Sodium 1000 mg/ Sodium Chloride 100 ml @ 200 mls/hr ONCE ONCE IV Last administered on 01/06/17 20:34; Start 01/06/17 at 19:15; Stop 01/06/17 at 19:44; Status DC Ceftriaxone Sodium/Sodium Chloride (Rocephin Inj/NS Inj) 100 ml @ 200 mls/hr Q24H IV Last administered on 01/10/17 09:02; Start 01/07/17 at 09:00 Clonidine (Catapres) 0.1 mg ONCE ONCE PO Last administered on 01/07/17 03:20 ; Start 01/07/17 at 03:00; Stop 01/07/17 at 03:09; Status DC Dextrose (D50w (Vial) Inj) 25 ml UNSCH PRN IV PUSH HYPOGLYCEMIA-SEE COMMENTS; Start 01/07/17 at 06:15 Diphenhydramine HCl (Benadryl) 25 mg ONCE ONCE PO Last administered on 01:18; Start 01/07/17 at 01:15; Stop 01/07/17 at 01:16; Status DC Enalaprilat (Vasotec Inj) 1.25 mg Q6H PRN IV PUSH SBP>170, DBP>100 Last administered on 01/09/17 01:18; Start 01/08/17 at 18:30; Stop 01/09/17 at 12:40; Status DC Furosemide (Lasix Inj) 40 mg ONCE ONCE IV PUSH Last administered on 01/08/17 09:54; Start 01/08/17 at 09:30; Stop 01/08/17 at 09:31; Status DC Glucagon (Glucagon Inj) 1 mg UNSCH PRN OTHER HYPOGLYCEMIA-SEE COMMENTS; Start 01/07/17 at 06:15 Guaifenesin 600 mg 600 mg BID PRN PO COUGH; Start 01/07/17 at 09:00 Heparin Sodium (Porcine) (Heparin Inj) 5,000 units Q8H SQ Last administered on 01/10/17 05:47; Start 01/06/17 at 23:00 Hydralazine HCl (Apresoline Inj) 20 mg ONCE ONCE IV PUSH Last administered on 01/08/17 18:44; Start 01/08/17 at 18:30; Stop 01/08/17 at 18:31; Status DC Hydralazine HCl (Apresoline) 10 mg Q6H PO Last administered on 01/10/17 09:05; Start 01/09/17 at 08:00 Hydrochlorothiazide (Hydrodiuril) 25 mg DAILY PO Last administered on 01/10/17 09:04; Start 01/08/17 at 10:00 Insulin Aspart 1 1 ACHS SLIDING SCALE SQ Last administered on 01/09/17 16:26; Start 01/07/17 at 07:00 Lisinopril (Prinivil) 40 mg DAILY PO Last administered on 01/10/17 09:04; Start 01/09/17 at 09:00 Methylprednisolone Sodium Succinate (SoluMEDROL INJ) 125 mg ONCE ONCE IVP Last administered on 01/06/17 19:03; Start 01/06/17 at 18:15; Stop 01/06/17 at 18:16; Status DC Metoprolol Tartrate (Lopressor) 100 mg Q12HR PO Last administered on 01/10/17 09:04; Start 01/09/17 at 09:00 Morphine Sulfate (Morphine Inj) 2 mg Q3H PRN IV PUSH PAIN 5-10; Start 01/09/17 at 03:00; Stop 01/09/17 at 03:00; Status DC Ondansetron HCl (Zofran Inj) 4 mg Q6H PRN IV NAUSEA; Start 01/06/17 at 21:45 Pantoprazole Sodium (Protonix) 40 mg DAILY PO Last administered on 01/09/17 08: 25; Start 01/07/17 at 09:00; Stop 01/09/17 at 09:25; Status DC Potassium Bicarb/ Potassium Chloride (K-Lyte Cl Eff) 25 meq ONCE ONCE PO Last administered on 01/06/17 20:35; Start 01/06/17 at 20:00; Stop 01/06/17 at 20:01; Status DC Potassium Chloride (KCl) 30 meq ONCE ONCE PO Last administered on 01/07/17 03 :20; Start 01/07/17 at 03:00; Stop 01/07/17 at 03:09; Status DC Prednisone (Deltasone) 40 mg DAILY PO Last administered on 01/10/17 09:03; Start 01/07/17 at 20:00 Sodium Chloride (NS 1000 ml Inj) 1,000 ml @ 75 mls/hr [id number] IV Last administered on 01/08/17 06:12; Start 01/07/17 at 08:15; Stop 01/08/17 at 15:21 ; Status DC Sodium Chloride (NS Flush) 2 ml UNSCH PRN IV FLUSH FLUSH AFTER USING IV ACCESS ; Start 01/06/17 at 21:45 (Dulce Cano MD R1) Urinary Catheter: No (Dulce Cano MD R1) Vascular Central Line Catheter: No (Dulce Cano MD R1) A/P Assessment and Plan 46 y/o male with PMH of HTN presents with a 2-day history of shortness of breath , headache, fever, productive cough, and wheezing with chest x-ray from findings concerning for possible pneumonia and cardiomegaly; with an equivocal BNP, concern is for heart failure. Elevated blood pressure with elevated creatinine is concerning for hypertensive emergency. The patient admitted for management with IV antibiotics, breathing treatments, and optimization of antihypertensive regimen. Discharge Planning Possibly tomorrow, pending clinical improvement, optimization of blood pressure and medical management of CAD risk factors. Case mgmt consulted for PCP establishment - they will get him a blue card to follow up with community clinic, and note that he may need medications in hand from inpatient pharmacy prior to discharge (Dulce Cano MD R1) Attending Attestation Patient seen and examined, discussed with resident team. I agree with assessment and management as documented and discussed with me. Pt without complaints. He reports he is feeling better. BP remains elevated, although somewhat improved. Add Amlodipine to regimen. 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 Anticipate discharge tomorrow. (Tammy Brown MD) Problem List: (1) Community acquired pneumonia Status: Acute Plan: Plan: Symptoms have improved tremendously. He is on room air. He is medically stable for discharge Transition IV antibiotics to by mouth Levaquin today for a total 7 day course. Hospital Course: CXR findings likely represent pneumonia and CHF, will treat as community- acquired pneumonia. CHF discussed below. Antibiotic treatment as below: - Rocephin 1 g IV every 24 hours () - Azithromycin 500 mg by mouth every 24 hours () - Prednisone 40 mg by mouth daily (received Solu-Medrol 125 mg IV 1 in the ED) - Levaquin 500 mg by mouth to continue seven-day course, end date 01/12 Meet sepsis criteria on arrival with tachycardia, tachypnea, and fever Lactic acid on arrival normal at 1.3, however increased to 2.8 01/08, now wnl - Received 1 L normal saline IV bolus 3 - Discontinued IV fluids 01/07 due to fluid overload Blood cultures 2 drawn, no growth to date Urine Legionella antigen negative Influenza screening negative Repeat chest x-ray showing vascular congestion without overt heart failure or effusion CXR 01/09 showing no sign of infiltrate. -Lasix 40 mg IV 1 on 01/08 -HCTZ was initiated for hypertension, likely serving to diurese as well Supportive management with: -Duonebs Q6h scheduled for diffuse wheezing -Albuterol Q4h PRN SOB/wheezing alternate with DuoNeb -Tessalon, and Mucinex available as PRNs for cough -Tylenol 650 mg Q6h PRN pain 1-10 of fever greater than 101F -Linton 5 every 6 when necessary breakthrough rib pain related to coughing -Prednisone 40 mg by mouth daily -Zofran 4mg IV Q6h PRN nausea/vomiting (2) Systolic congestive heart failure with reduced left ventricular function, NYHA class 2 Status: Chronic Plan: Clinically improved. CXR 01/09 improved from study on 01/07 in regard to vascular congestion in addition to no discrete infiltrate suggestive. Lung exam still suggest fluid overload but diuresis good on HCTZ. Breathing on room air comfortably. Hospital Course: 2-D echocardiogram 01/07: EF 30-35%, mitral regurgitation, PA P 37 mmHg. Etiology likely prolonged hypertension given no outpatient physician. Patient to be medically managed for HTN and CHF as follows with antihypertensives as documented. Continue to monitor vital signs every 4 hours, will adjust regimen while monitoring BP and BMP (3) Hypertension Status: Chronic Plan: Management as follows with VS q4hr: Metoprolol 100 mg twice per day (increased 01/08) Lisinopril 40 mg once daily (increased 01/08) HCTZ 25 mg once daily (started 01/09) Amlodipine 10 mg daily (started 01/10) Hydralazine 10mg q6hr started on 01/09, switched to PRN on 01/10 Renal US ordered to assess renal anatomy, only showing asymptomatic renal stone ; microalb/creat ratio elevated suggestive of chronic kidney disease (like HTN vs DM etiology) May need to change HTN medication timing given he gets multiple in the morning Hospital Course: Patient has evidence of heart failure with reduced EF per echo completed 01/07 ( discussed elsewhere). Blood pressure remained elevated with metoprolol and amlodipine, will adjust PO antihypertensive regimen as discussed above. Continue as needed medications for BP >170/100 with: Hydralazine 10 mg every 6 hours as needed BP> 170/100 He has required multiple doses of PRN antihypertensives over course of hospital stay including clonidine, hydralazine, additional doses of medications listed above EKGs show left ventricular hypertrophy with marked right axis deviation, ST changes in V1, V2, V3, V4 were present in previous EKG on 04/21/16 Initial troponins negative at 0.033 Repeat troponin and EKG on 01/08 unchanged 2-D echocardiogram 01/07: EF 30-35%, mitral regurgitation, PAP 37 mmHg (4) Hypokalemia Status: Acute Plan: Mild. Initially resolved. Given 30 mEq KCl by mouth on 01/10 Check daily BMPs and replenish as needed Hospital course -Received 25 MeQ in the ED -30 mEq KCl 01/10 (5) Diabetes type 2, uncontrolled Status: Acute Plan: Continue low-dose sliding scale NovoLog Patient will require outpatient follow-up, possibly to initiate on insulin medications prior to initiating insulin as outpatient. Patient does have a creatinine of 1.5, likely his baseline. May consider a sulfonylurea Hospital course: Patient noted to have elevated random glucose on admission, fasting glucose up to 352 this hospital stay. He has been on low-dose sliding scale and noted to need up to 3 units NovoLog based on Accu-Cheks. A1c is 7.7 -Lipid panel is abnormal, atorvastatin 40 mg started initiated, if cost prohibitive to continue his outpatient would switch to a lower cost agent ( possibly simvastatin) (6) [id number] kidney injury Status: Acute Plan: Patient likely has early CKD; creatinine in December 2015 and April 2016 similar to creatinine on arrival (1.54) Renal function mildly worsening likely due to hypertensive urgency versus sepsis Some improvement noted, baseline seems to be approximately 1.4, mild increase noted on 01/10 Avoid nephrotoxic agents Monitor with daily BMPs Hospital course: Received IV fluids on admission with normal saline 1 L IV bolus 3 - Started on IV fluids with normal saline at 135 mL/hour however repeat chest x- ray showing vascular congestion - Decrease IV fluids to 75 mL/hour for gentle IV hydration given vascular congestion on x-ray - Discontinued IV fluids on 01/08 per patient request, may offer gentle IV fluids as indicated (7) Sepsis Status: Resolved Plan: Repeat lactate wnl on 01/08. IVF d/c'd 01/08 due to CHF. Treatment as above for community-acquired pneumonia. (8) FEN/DVT PPX/GI PPX Status: Acute Plan: Fluids: Oral fluids Electrolytes: Will monitor and replace as needed Nutrition: Heart healthy diet, ADA 2000 DVT Prophylaxis: heparin subcutaneous every 8 hours GI Prophylaxis: not indicated DW Dr. Brown (Dulce Cano MD R1) Problem List: (1) Community acquired pneumonia Status: Acute Plan: Plan: Symptoms have improved tremendously. He is on room air. He is medically stable for discharge Transition IV antibiotics to by mouth Levaquin today for a total 7 day course. Hospital Course: CXR findings likely represent pneumonia and CHF, will treat as community- acquired pneumonia. CHF discussed below. Antibiotic treatment as below: - Rocephin 1 g IV every 24 hours () - Azithromycin 500 mg by mouth every 24 hours () - Prednisone 40 mg by mouth daily (received Solu-Medrol 125 mg IV 1 in the ED) - Levaquin 500 mg by mouth to continue seven-day course, end date 01/12 Meet sepsis criteria on arrival with tachycardia, tachypnea, and fever Lactic acid on arrival normal at 1.3, however increased to 2.8 01/08, now wnl - Received 1 L normal saline IV bolus 3 - Discontinued IV fluids 01/07 due to fluid overload Blood cultures 2 drawn, no growth to date Urine Legionella antigen negative Influenza screening negative Repeat chest x-ray showing vascular congestion without overt heart failure or effusion CXR 01/09 showing no sign of infiltrate. -Lasix 40 mg IV 1 on 01/08 -HCTZ was initiated for hypertension, likely serving to diurese as well Supportive management with: -Duonebs Q6h scheduled for diffuse wheezing -Albuterol Q4h PRN SOB/wheezing alternate with DuoNeb -Tessalon, and Mucinex available as PRNs for cough -Tylenol 650 mg Q6h PRN pain 1-10 of fever greater than 101F -[place] 5 every 6 when necessary breakthrough rib pain related to coughing -Prednisone 40 mg by mouth daily -Zofran 4mg IV Q6h PRN nausea/vomiting (2) Systolic congestive heart failure with reduced left ventricular function, NYHA class 2 Status: Chronic Plan: Clinically improved. CXR 01/09 improved from study on 01/07 in regard to vascular congestion in addition to no discrete infiltrate suggestive. Lung exam still suggest fluid overload but diuresis good on HCTZ. Breathing on room air comfortably. Hospital Course: 2-D echocardiogram 01/07: EF 30-35%, mitral regurgitation, PA P 37 mmHg. Etiology likely prolonged hypertension given no outpatient physician. Patient to be medically managed for HTN and CHF as follows with antihypertensives as documented. Continue to monitor vital signs every 4 hours, will adjust regimen while monitoring BP and BMP (3) Hypertension Status: Chronic Plan: Management as follows with VS q4hr: Metoprolol 100 mg twice per day (increased 01/08) Lisinopril 40 mg once daily (increased 01/08) HCTZ 25 mg once daily (started 01/09) Amlodipine 10 mg daily (started 01/10) Hydralazine 10mg q6hr started on 01/09, switched to PRN on 01/10 Renal US ordered to assess renal anatomy, only showing asymptomatic renal stone ; microalb/creat ratio elevated suggestive of chronic kidney disease (like HTN vs DM etiology) May need to change HTN medication timing given he gets multiple in the morning Hospital Course: Patient has evidence of heart failure with reduced EF per echo completed 01/07 ( discussed elsewhere). Blood pressure remained elevated with metoprolol and amlodipine, will adjust PO antihypertensive regimen as discussed above. Continue as needed medications for BP >170/100 with: Hydralazine 10 mg every 6 hours as needed BP> 170/100 He has required multiple doses of PRN antihypertensives over course of hospital stay including clonidine, hydralazine, additional doses of medications listed above EKGs show left ventricular hypertrophy with marked right axis deviation, ST changes in V1, V2, V3, V4 were present in previous EKG on 04/21/16 Initial troponins negative at 0.033 Repeat troponin and EKG on 01/08 unchanged 2-D echocardiogram 01/07: EF 30-35%, mitral regurgitation, PAP 37 mmHg (4) Hypokalemia Status: Acute Plan: Mild. Initially resolved. Given 30 mEq KCl by mouth on 01/10 Check daily BMPs and replenish as needed Hospital course -Received 25 MeQ in the ED -30 mEq KCl 01/10 (5) Diabetes type 2, uncontrolled Status: Acute Plan: Continue low-dose sliding scale NovoLog Patient will require outpatient follow-up, possibly to initiate on insulin medications prior to initiating insulin as outpatient. Patient does have a creatinine of 1.5, likely his baseline. May consider a sulfonylurea Hospital course: Patient noted to have elevated random glucose on admission, fasting glucose up to 352 this hospital stay. He has been on low-dose sliding scale and noted to need up to 3 units NovoLog based on Accu-Cheks. A1c is 7.7 -Lipid panel is abnormal, atorvastatin 40 mg started initiated, if cost prohibitive to continue his outpatient would switch to a lower cost agent ( possibly simvastatin) (6) [id number] kidney injury Status: Acute Plan: Patient likely has early CKD; creatinine in December 2015 and April 2016 similar to creatinine on arrival (1.54) Renal function mildly worsening likely due to hypertensive urgency versus sepsis Some improvement noted, baseline seems to be approximately 1.4, mild increase noted on 01/10 Avoid nephrotoxic agents Monitor with daily BMPs Hospital course: Received IV fluids on admission with normal saline 1 L IV bolus 3 - Started on IV fluids with normal saline at 135 mL/hour however repeat chest x- ray showing vascular congestion - Decrease IV fluids to 75 mL/hour for gentle IV hydration given vascular congestion on x-ray - Discontinued IV fluids on 01/08 per patient request, may offer gentle IV fluids as indicated (7) Sepsis Status: Resolved Plan: Repeat lactate wnl on 01/08. IVF d/c'd 01/08 due to CHF. Treatment as above for community-acquired pneumonia. (8) FEN/DVT PPX/GI PPX Status: Acute Plan: Fluids: Oral fluids Electrolytes: Will monitor and replace as needed Nutrition: Heart healthy diet, ADA 1999 DVT Prophylaxis: heparin subcutaneous every 8 hours GI Prophylaxis: not indicated DW Dr. Brown (Tammy Brown MD) Dulce Cano MD R1 Jan 10, 2017 09:54 Tammy Brown MD Jan 10, 2017 20:07
[2017-01-10] MEDS ORDERED: POTASSIUM CHLORIDE 10 MEQ CONTROLLED RELEASE TAB PO ONE (10:00)
[2017-01-10] MEDS ORDERED: hydrALAZINE HCL 10 MG TAB PO PRN (14:00)
[2017-01-10] MEDS: ACETAMINOPHEN 325 MG TAB PO PRN (21:13)
--- NOTE | 2017-01-10 21:36 | EKG ---
Date Performed: 01/08/2017 Time Performed: 13:44:47 PTAGE: 46 years EKG: Sinus rhythm RIGHT ATRIAL ENLARGEMENT LEFT ATRIAL ENLARGEMENT POSSIBLE LEFT VENTRICULAR HYPERTROPHY NONSPECIFIC S T & T-WAVE ABNORMALITY ABNORMAL ECG PREVIOUS TRACING : 01/06/2017 18.18 DOCTOR: Rachael Rossi Interpretating Date/Time 01/10/2017 21:32:57
[2017-01-11] VITALS: BP 144/90; PULSE 79; RESP 20; TEMP 98.8; O2SAT 95
[2017-01-11] MEDS: RESP: ALBUTEROL 2.5 MG/IPRATROPIUM 0.5 MG NEB (SCH) NEB (03:31)
[2017-01-11 04:00] VITALS: BP 156/78; PULSE 81; RESP 20; TEMP 97.3; O2SAT 92
[2017-01-11] MEDS: INSULIN ASPART SUPPLEMENTAL SCALE SQ SCH ×2 (06:09→12:29)
[2017-01-11] MEDS: HEPARIN SODIUM - SQ 10,000 UNITS/ML VIAL SQ SCH (06:09)
[2017-01-11 08:00] VITALS: BP_SYST 160; BP_SYST 177; BP_DIAS 100; BP_DIAS 110; PULSE 81; RESP 18; TEMP 97.7; O2SAT 93
[2017-01-11 08:12] LABS: AUTOMATED NEUTROPHIL # 5.7 TH/MM3 (1.8-7.7); BASOPHIL # 0.1 TH/MM3 (0-0.2); BASOPHIL % 0.5 % (0.0-2.0); EOSINOPHIL % 0.3 % (0.0-4.0); HEMATOCRIT 39.1 % (39.0-51.0); HEMO FLAGS DIFF FINAL; LYMPH % 34.7 % (9.0-44.0); LYMPHOCYTE # 3.5 TH/MM3 (1.0-4.8); MEAN CELL VOLUME 78.5 FL (80.0-100.0); MEAN CORPUSCULAR HEMOGLOBIN 25.7 PG (27.0-34.0); MEAN CORPUSCULAR HGB CONC 32.7 % (32.0-36.0); MONO % 8.7 % (0.0-8.0); NEUT % 55.8 % (16.0-70.0); PLATELET COUNT 289 TH/MM3 (150-450); RED BLOOD COUNT 4.99 MIL/MM3 (4.50-5.90); RED CELL DISTRIBUTION WIDTH 15.5 % (11.6-17.2); WHITE BLOOD COUNT 10.2 TH/MM3 (4.0-11.0)
[2017-01-11 08:39] LABS: BICARBONATE 31.6 MEQ/L (21.0-32.0); POTASSIUM 3.4 MEQ/L (3.5-5.1)
[2017-01-11] MEDS: predniSONE 20 MG TAB PO SCH (09:00)
[2017-01-11] MEDS: ASPIRIN 81 MG CHEW TAB PO SCH (09:00)
[2017-01-11] MEDS ORDERED: LEVOFLOXACIN 500 MG TAB PO SCH (09:00)
[2017-01-11 09:55] VITALS: PULSE 78
[2017-01-11] MEDS: ATORVASTATIN 40 MG TAB PO SCH (09:55)
[2017-01-11] MEDS: METOPROLOL TARTRATE 100 MG TAB PO SCH (09:55)
[2017-01-11] MEDS: HYDROCHLOROTHIAZIDE 25 MG TAB PO SCH (09:56)
[2017-01-11] MEDS: LISINOPRIL 20 MG TAB PO SCH (09:56)
[2017-01-11] MEDS: SODIUM CHLORIDE 0.9% FLUSH 10 ML FLUSH IV FLUSH SCH (09:57)
[2017-01-11] MEDS ORDERED: LEVA500T PO (11:16)
--- NOTE | 2017-01-11 11:17 | HHI.DCPOC ---
Discharge Care Plan Diagnosis: (1) Pneumonia Goals to Promote Your Health * To prevent worsening of your condition and complications * To maintain your health at the optimal level Directions to Meet Your Goals Take your medications as prescribed Follow your dietary instruction Follow activity as directed Keep your appointments as scheduled Take your immunizations and boosters as scheduled If your symptoms worsen call your PCP, if no PCP go to Urgent Care Center or Emergency Room Smoking is Dangerous to Your Health. Avoid second hand smoke Call the 24-hour hour crisis hotline for domestic abuse at Louise Hoffmann MD R3 Jan 11, 2017 11:17
[2017-01-11 12:00] VITALS: BP 158/104; PULSE 77; RESP 20; TEMP 97.8; O2SAT 97
[2017-01-11] MEDS ORDERED: HYDR25TA5 PO (16:03)
[2017-01-11] MEDS ORDERED: ASPI81CH CHEW (16:03)
[2017-01-11] MEDS ORDERED: LIPI40TA PO (16:03)
[2017-01-11] MEDS ORDERED: AMLO10TA2 PO (16:03)
[2017-01-11] MEDS ORDERED: LISI40TA PO (16:03)
--- NOTE | 2017-01-11 16:13 | HHI.FPPN ---
Subjective Remarks Patient seen and examined. SARMAD overnight. O2 sats stable on RA. BP still elevated overnight. Patient denies any complaints. States that he feels much better and would like to go home. Has mild productive cough with clear yellow sputum. (Louise Hoffmann MD R3) Objective Vitals Vital Signs Date Time Temp Pulse Resp B/P Pulse Ox O2 Delivery O2 Flow Rate FiO2 01/11/17 12:00 97.8 77 20 158/104 97 01/11/17 09:55 78 01/11/17 08:00 97.7 81 18 177/110 93 160/100 01/11/17 04:00 97.3 81 20 156/78 92 01/11/17 00:00 98.8 79 20 144/90 95 01/10/17 21:00 98 01/10/17 21:00 Room Air 01/10/17 20:02 97 21 01/10/17 20:00 97.3 93 22 142/98 95 01/10/17 17:20 98.4 98 18 153/94 98 I/O 01/10/17 01/10/17 01/10/17 01/11/17 01/11/17 01/11/17 07:00 15:00 23:00 07:00 15:00 23:00 Intake Total 720 ml 242 ml 0 ml 0 ml Output Total 600 ml Balance 120 ml 242 ml 0 ml 0 ml Intake Oral 720 ml 240 ml 0 ml IV Total 2 ml 0 ml Output Urine Total 600 ml # Voids 0 0 4 # Bowel Movements 0 0 0 1 (Louise Hoffmann MD R3) Result Diagram: 01/11/17 0755 01/11/17 0755 Imaging Renal Ultrasound 01/09/17 0000 Signed Impressions: Service Date/Time: Monday, January 09, 2017 08:01 - CONCLUSION: Small nonobstructing right renal stone. Kalen Reece MD FACR Chest X-Ray 01/09/17 0000 Signed Impressions: Service Date/Time: Monday, January 09, 2017 07:54 - CONCLUSION: No acute disease. Prominent left ventricle. Kalen Reece MD FACR Abdomen X-Ray 01/07/17 0600 Signed Impressions: Service Date/Time: December 07:50 - CONCLUSION: 1. No evidence of obstruction. Natan Lagos MD CT Angiography 01/07/17 0000 Signed Impressions: Service Date/Time: December 05:49 - CONCLUSION: 1. Negative for pulmonary embolism. Subsegmental atelectasis at the lung bases. Cardiomegaly. Cristopher Rodriguez MD Objective Remarks GENERAL: Overweight pleasant male, sitting up in chair in no obvious distress SKIN: No rashes, ecchymoses or lesions. Cool and dry. NECK: Trachea midline. No JVD or lymphadenopathy. Supple. CARDIOVASCULAR: Regular rate and rhythm, no obvious murmurs. RESPIRATORY: Good aeration. Faint diffuse wheezes throughout. No rales or rhonchi. GASTROINTESTINAL: Abdomen soft, non-tender, obese. MUSCULOSKELETAL: Extremities without clubbing, cyanosis, or edema. NEUROLOGICAL: Awake and alert. (Louise Hoffmann MD R3) A/P Assessment and Plan 46 y/o male with PMH of HTN admitted for community acquired pneumonia and hypertensive emergency. Clinically improving and ready for discharge home. Discharge Planning Discharge home today given clinical improvement. Patient will follow up at the community clinic for management of his chronic medical problems. (Louise Hoffmann MD R3) Attending Attestation Patient seen, examined and discussed with resident team. I agree with assessment and management as documented and discussed with me. Pt without complaints. Await discussion/evaluation by DM educator and wireless consultant. He has been in contact with case management and has a blue card to assist with discharge meds. Discharge home today. (Tammy Brown MD) Problem List: (1) Community acquired pneumonia Status: Acute Plan: Symptoms have improved tremendously. He is on room air. He is medically stable for discharge on Levaquin-currently day 6 out of 7 (end date 01/12) - Prednisone 40 mg by mouth daily (received Solu-Medrol 125 mg IV 1 in the ED) . Completed 6 days of steroids. - Duonebs/Albuterol prn - Tessalon perles and Mucinex prn - Tylenol and Marilla prn pain - Blood cultures 2 drawn, no growth to date - Urine Legionella antigen negative - Influenza screening negative Antibiotic treatment as below: - Rocephin 1 g IV every 24 hours () - Azithromycin 500 mg by mouth every 24 hours (3/294/2) Imaging: -CXR 01/06: Minimal patchiness within RLB -CTA: Negative for PE. Atelectasis at lung bases -CXR 01/07: Cardiomegaly and vascular congestion -CXR 01/09: No acute disease (2) Systolic congestive heart failure with reduced left ventricular function, NYHA class 2 Status: Chronic Plan: Clinically improved. Breathing on room air comfortably. No evidence of exacerbation. BNP only mildly elevated. Continue medical management with statin, ASA, beta tena. Follow up with PCP as outpatient. Imaging: ECHO 01/07: EF 30-35%, mitral regurgitation, PA P 37 mmHg. E (3) Hypertension Status: Chronic Plan: HTN difficult to control. Currently on: -Metoprolol 100 mg twice per day (increased 01/08) -Lisinopril 40 mg once daily (increased 01/08) -HCTZ 25 mg once daily (started 01/09) -Amlodipine 10 mg daily (started 01/10) -Hydralazine 10mg q6hr started on 01/09, switched to PRN on 01/10 -Renal u/s unremarkable except for small nonobstructing R. renal stone -Follow up with PCP for hypertension management as outpatient (4) Diabetes type 2, uncontrolled Status: Acute Plan: HbA1c is 7.7. Urine microalbumin/creatinine elevated. Continue low-dose sliding scale NovoLog -Patient will require outpatient follow-up -Patient does have kidney disease, likely his baseline. May consider a sulfonylurea or insulin; however patient does not want to be on insulin. Wants to control diabetes with lifestyle modification. -Continue ACEI -Groundskeeper Porter and personal development educator consult (5) Hypokalemia Status: Acute Plan: Mild; K 3.4. -Continue ACEI -Follow up with PCP. Will need repeat BMP as outpatient. Hospital course -Received 25 MeQ in the ED -30 mEq KCl 01/10 (6) [id number] kidney injury Status: Acute Plan: Patient likely has early CKD (DM vs. hypertension) ; creatinine in December 2015 and April 2016 similar to creatinine on arrival (1.54). Renal function has been stable during admission. -Avoid nephrotoxic agents -Glycemic and BP control -Continue ACEI -Follow up with PCP as outpatient (7) Hyperlipidemia Status: Acute Plan: Continue statin (8) Sepsis Status: Resolved Plan: Repeat lactate wnl on 01/08. IVF d/c'd 01/08 due to CHF. Treatment as above for community-acquired pneumonia. (9) FEN/DVT PPX/GI PPX Status: Acute Plan: Fluids: Oral fluids Electrolytes: Will monitor and replace as needed Nutrition: Heart healthy diet, ADA 1999 DVT Prophylaxis: heparin subcutaneous every 8 hours GI Prophylaxis: not indicated s/d/w Dr. Brown and Dr. Mendez (Louise Hoffmann MD R3) Louise Hoffmann MD R3 Jan 11, 2017 16:13 Tammy Brown MD Jan 11, 2017 20:03
--- NOTE | 2017-01-11 16:24 | HHI.DS ---
Discharge Summary Admission Date Jan 06, 2017 at 20:19 Discharge Date: Jan 11, 2017 Admitting Diagnosis pneumonia (1) Community acquired pneumonia Diagnosis: Principal Plan: Symptoms have improved tremendously. He is on room air. He is medically stable for discharge on Levaquin-currently day 6 out of 7 (end date 01/12) - Prednisone 40 mg by mouth daily (received Solu-Medrol 125 mg IV 1 in the ED) . Completed 6 days of steroids. - Duonebs/Albuterol prn - Tessalon perles and Mucinex prn - Tylenol and Clifford prn pain - Blood cultures 2 drawn, no growth to date - Urine Legionella antigen negative - Influenza screening negative Antibiotic treatment as below: - Rocephin 1 g IV every 24 hours () - Azithromycin 500 mg by mouth every 24 hours () Imaging: -CXR 01/06: Minimal patchiness within RLB -CTA: Negative for PE. Atelectasis at lung bases -CXR 01/07: Cardiomegaly and vascular congestion -CXR 01/09: No acute disease (2) Systolic congestive heart failure with reduced left ventricular function, NYHA class 2 Plan: Clinically improved. Breathing on room air comfortably. No evidence of exacerbation. BNP only mildly elevated. Continue medical management with statin, ASA, beta tena. Follow up with PCP as outpatient. Imaging: ECHO 01/07: EF 30-35%, mitral regurgitation, PA P 37 mmHg. E (3) Hypertension Plan: HTN difficult to control. Currently on: -Metoprolol 100 mg twice per day (increased 01/08) -Lisinopril 40 mg once daily (increased 01/08) -HCTZ 25 mg once daily (started 01/09) -Amlodipine 10 mg daily (started 01/10) -Hydralazine 10mg q6hr started on 01/09, switched to PRN on 01/10 -Renal u/s unremarkable except for small nonobstructing R. renal stone -Follow up with PCP for hypertension management as outpatient (4) Diabetes type 2, uncontrolled Plan: HbA1c is 7.7. Urine microalbumin/creatinine elevated. Continue low-dose sliding scale NovoLog -Patient will require outpatient follow-up -Patient does have kidney disease, likely his baseline. May consider a sulfonylurea or insulin; however patient does not want to be on insulin. Wants to control diabetes with lifestyle modification. -Continue ACEI -Collections Agent and inclusion special educator consult (5) Hypokalemia Plan: Mild; K 3.4. -Continue ACEI -Follow up with PCP. Will need repeat BMP as outpatient. Hospital course -Received 25 MeQ in the ED -30 mEq KCl 4/2 (6) Ibptr-hf-qyeegwe kidney injury Plan: Patient likely has early CKD (DM vs. hypertension) ; creatinine in December 2015 and April 2016 similar to creatinine on arrival (1.54). Renal function has been stable during admission. -Avoid nephrotoxic agents -Glycemic and BP control -Continue ACEI -Follow up with PCP as outpatient (7) Hyperlipidemia Plan: Continue statin (8) Sepsis Plan: Repeat lactate wnl on 01/08. IVF d/c'd 01/08 due to CHF. Treatment as above for community-acquired pneumonia. (9) FEN/DVT PPX/GI PPX Plan: Fluids: Oral fluids Electrolytes: Will monitor and replace as needed Nutrition: Heart healthy diet, ADA 2000 DVT Prophylaxis: heparin subcutaneous every 8 hours GI Prophylaxis: not indicated s/d/w Dr. Brown and Dr. Mendez Brief History Patient is a 46-year-old male with a past medical history of hypertension that presents to the [facility] ED with a chief complaint of shortness of breath of 1 day duration. Patient states that on Wednesday he knew that his blood pressure was elevated because he had headache and photophobia symptoms that he normally gets when his BP is elevated. He has a blood pressure monitor at home and the measurement was 211 over 117 on Wednesday. He decided to rest and eat some food and later that evening it was 118/100+. This morning, his blood pressure was 194/116. He took his brothers blood pressure medication, metoprolol 100 mg. Around the same time, patient was having cold and cough symptoms that he attributed to a viral infection contracted from his ex-'s little children. The cough was productive of sputum and progressively got worse. He also had chest pain from all the coughing and pain around his eyes, neck ,and arms bilaterally. He took some Mucinex and BC powder for the pain which subsided such that he was able to relax and watch some TV. However this morning, he had much difficulty breathing, was when he laid down, and wheezing, which prompted him to come into the ED. Notably, the patient does not have a primary care physician, but is getting insurance in the next 2-3 weeks. He was last seen in the [facility] ED on April 21 for symptoms of hypertensive urgency. He has been using his brothers metoprolol and clonidine to manage his blood pressure. CBC/BMP: 01/11/17 0755 01/11/17 0755 Significant Findings Laboratory Tests Test 01/08/17 01/09/17 01/10/17 01/11/17 16:42 08:50 07:00 07:55 Venous Blood pH 7.41 (7.360-7.400) Venous Blood Partial Pressure 32 mmHg (35-40) O2 Venous Blood HCO3 30 mmol/L (22-26) Venous Blood Oxygen Saturation 58 % (70-76) Venous Blood Base Excess 5.7 mmol/L (-2-2) Hemoglobin 12.9 GM/DL 12.5 GM/DL 12.8 GM/DL (13.0-17.0) (13.0-17.0) (13.0-17.0) Mean Corpuscular Volume 78.5 FL 78.5 FL 78.5 FL (80.0-100.0) (80.0-100.0) (80.0-100.0) Mean Corpuscular Hemoglobin 25.7 PG 25.8 PG 25.7 PG (27.0-34.0) (27.0-34.0) (27.0-34.0) Monocytes (%) (Auto) 11.0 % 8.5 % (0.0-8.0) 8.7 % (0.0-8.0) (0.0-8.0) Potassium Level 3.4 MEQ/L 3.3 MEQ/L 3.4 MEQ/L (3.5-5.1) (3.5-5.1) (3.5-5.1) Carbon Dioxide Level 34.0 MEQ/L 32.5 MEQ/L (21.0-32.0) (21.0-32.0) Blood Urea Nitrogen 24 MG/DL (7-18) 28 MG/DL (7-18) 27 MG/DL (7-18) Creatinine 1.31 MG/DL 1.51 MG/DL 1.48 MG/DL (0.60-1.30) (0.60-1.30) (0.60-1.30) Estimat Glomerular Filtration 72 ML/MIN (>89) 61 ML/MIN (>89) 63 ML/MIN (>89) Rate Random Glucose 120 MG/DL 118 MG/DL 113 MG/DL (74-106) (74-106) (74-106) Albumin 3.3 GM/DL (3.4-5.0) Hematocrit 38.1 % (39.0-51.0) Imaging Renal Ultrasound 01/09/17 0000 Signed Impressions: Service Date/Time: Monday, January 09, 2017 08:01 - CONCLUSION: Small nonobstructing right renal stone. Kalen Reece MD FACR Chest X-Ray 01/09/17 0000 Signed Impressions: Service Date/Time: Monday, January 09, 2017 07:54 - CONCLUSION: No acute disease. Prominent left ventricle. Kalen Reece MD FACR Abdomen X-Ray 01/07/17 0600 Signed Impressions: Service Date/Time: December 07:50 - CONCLUSION: 1. No evidence of obstruction. Natan Lagos MD CT Angiography 01/07/17 0000 Signed Impressions: Service Date/Time: December 05:49 - CONCLUSION: 1. Negative for pulmonary embolism. Subsegmental atelectasis at the lung bases. Cardiomegaly. Cristopher Rodriguez MD PE at Discharge GENERAL: Overweight pleasant male, sitting up in chair in no obvious distress SKIN: No rashes, ecchymoses or lesions. Cool and dry. NECK: Trachea midline. No JVD or lymphadenopathy. Supple. CARDIOVASCULAR: Regular rate and rhythm, no obvious murmurs. RESPIRATORY: Good aeration. Faint diffuse wheezes throughout. No rales or rhonchi. GASTROINTESTINAL: Abdomen soft, non-tender, obese. MUSCULOSKELETAL: Extremities without clubbing, cyanosis, or edema. NEUROLOGICAL: Awake and alert. Hospital Course Patient is a 46 year old AAM with history of diabetes and hypertension who was admitted on 01/06 for sepsis secondary to community acquired pneumonia as well as hypertensive emergency. He was started on IV antibiotics with Rocephin and Azithromycin and steroids. Blood cultures were negative. Patient improved and transitioned to oral Levaquin. His hypertension was difficult to control. During hospitalization, he was started on Lisinopril 40mg daily, Amlodipine 10mg , HCTZ 25mg, in addition to home medications of Clonidine 0.1mg and Metoprolol 100mg BID. BP was better controlled with this regimen. Repeat chest x-ray during hospital course was significant for some congestion. ECHO obtained on showed moderately reduced EF of 30-35% with diffuse hypokinesis. Patient was started on Atorvastatin and Aspirin for medical management of CHF. As for his diabetes, given evidence of CKD, he is not a candidate for Metformin. He is hesitant to start Insulin and wants to try control it with lifestyle modification. Hemoglobin A1C on admission was 7.7. Will need close follow up as an outpatient. Patient continued to improve clinically and was deemed stable for discharge on . He qualified for patient's assistance and will follow up at our community clinic. He will be discharge home on current antihypertensive regimen as well as Levaquin 500mg to finish 7-day course of antibiotics. Pt Condition on Discharge: Good Discharge Disposition: Discharge Home Discharge Instructions DIET: Follow Instructions for: Diabetic Diet Activities you can perform: Regular-No Restrictions Follow up Referrals: Physician - 1 Week New Medications: Amlodipine (Amlodipine) 10 Mg Tab 10 MG PO DAILY Blood Pressure Management #30 Ref 0 TAB Aspirin (Aspirin) 81 Mg Chew 81 MG CHEW DAILY #30 Ref 0 TAB Atorvastatin (Lipitor) 40 Mg Tab 40 MG PO HS Cholesterol Management #30 Ref 0 TAB Hydrochlorothiazide (Hydrochlorothiazide) 25 Mg Tab 25 MG PO DAILY #30 Ref 0 TAB Lisinopril (Lisinopril) 40 Mg Tab 40 MG PO DAILY Blood Pressure Management #30 Ref 0 TAB Levofloxacin (Levaquin) 500 Mg Tab 500 MG PO DAILY #1 TAB Continued Medications: Clonidine (Clonidine) 0.1 Mg Tab 0.1 MG PO HS Blood Pressure Management #60 Ref 0 TAB Metoprolol Tartrate (Metoprolol Tartrate) 100 Mg Tab 100 MG PO BID #60 Ref 0 TAB Louise Hoffmann MD R3 Jan 11, 2017 16:24
== END 2017-01-11 12:39 | disposition home or self-care (01) | DRG 871 ==
LOC: NEPA 17:52 → NEDA 20:19 → NEPHCDU 23:11 → N04A 01-08 16:52
PROVIDERS: ADMIT Family Medicine; ATTEND Family Medicine
DX: A41.9 Sepsis, unspecified organism (principal); J18.9 Pneumonia, unspecified organism; N17.9 Acute kidney failure, unspecified; I13.0 Hypertensive heart and chronic kidney disease with heart failure and stage 1 through stage 4 chronic kidney disease, or unspecified chronic kidney disease; I50.20 Unspecified systolic (congestive) heart failure; I16.1 Hypertensive emergency; E11.22 Type 2 diabetes mellitus with diabetic chronic kidney disease; N18.9 Chronic kidney disease, unspecified; E11.65 Type 2 diabetes mellitus with hyperglycemia; E78.5 Hyperlipidemia, unspecified; E87.6 Hypokalemia; R09.02 Hypoxemia; I34.0 Nonrheumatic mitral (valve) insufficiency; N20.0 Calculus of kidney; Z79.899 Other long term (current) drug therapy; Z86.73 Personal history of transient ischemic attack (TIA), and cerebral infarction without residual deficits
CPT/HCPCS: 36600; 71010; 71020; 71275; 74000; 76775; 80048; 80053; 80061; 80076; 81001; 82043; 82533; 82805; 82948; 83036; 83605; 83735; 83880; 84100; 84244; 84443; 84484; 84550; 85025; 85379; 86738; 87040; 87449; 87804; 93005; 93306; 94150; 94640; 94664; 94667; 94668; 96361; 96374; 96375; J0360; J0456; J0696; J1644; J1815; J1940; J2270; J2930; J7030; J7050; J7512; Q9967

== ENCOUNTER 2017-08-28 23:42 | Inpatient (IN) | payer OTHER ==
[~2017-08-28] VITALS: Ht 170.2 cm; Wt 95.0 kg
[~2017-08-28 23:42] MED LIST changes: +AMLO10TA2 PO; +ASPI-516 CHEW; +CLON0.1T PO; +HYDR25TA5 PO; -HYDRA25 PO; +LEVA500T PO; +LIPI40TA PO; -LISI20 PO; +LISI40TA PO; -METO100 PO; +METO100T PO; -NIFE1TAB86 PO
[2017-08-28] MEDS ORDERED: SODIUM CHLOR 0.9% 1000 ML INJ 1,000 ML IV ONE (23:47)
[2017-08-28 23:49] VITALS: BP 238/153; PULSE 101; RESP 18; O2SAT 97
[2017-08-28 23:57] VITALS: O2SAT 96
[2017-08-28] MEDS ORDERED: PROPOFOL 1000 MG/100 ML INJ 100 ML ONE (23:57)
[2017-08-29] VITALS (19 sets, daily range): BP systolic 105–157; BP diastolic 49–90; PULSE 77–95; RESP 18–23; TEMP 97.7–100.4; O2SAT 93–100
[2017-08-29] MEDS ORDERED: niCARdipine INJ 25 MG in SODIUM CHLOR 0.9% 250 ML INJ 240 ML IV PRN ×2
[2017-08-29] MEDS ORDERED: ETOMIDATE 20 MG/10 ML VIAL IVP ONE
[2017-08-29] MEDS ORDERED: SUCCINYLCHOLINE CHLORIDE 200 MG/10 ML VIAL IV PUSH ONE
--- NOTE | 2017-08-29 00:08 | PD ---
HPI Chief Complaint: Stroke Alert Time Seen by Provider: 23:47 Travel History International Travel<30 days: No (UNK) Contact w/Intl Traveler<30days: No (UNK) Traveled to known affect area: No (UNK) History of Present Illness HPI The patient arrived to the ER as a stroke alert. He is a 46-year-old male with past medical history including stroke, migraines and hypertension. He was last seen normal about 3-1/2 hours prior to ER arrival. History is obtained by EMS due to obtunded state of patient with a GCS of 7 (eyes 2 verbal 2 motor 3). Evidently he had weakness on the right side with a right-sided facial droop and hypertension approximately 260/130. Blood sugar was normal. EMS spoke with a bystander on scene and evidently the patient had a headache however no additional historical data available. Shortly after arrival the patient began vomiting, compromising the airway due to the obtunded state, intubation was elected at that time. Stroke alert was called shortly after arrival due to right-sided weakness. Blood pressure 260/130. PFSH Past Medical History Asthma: No Blood Disorders: No Heart Rhythm Problems: No Cancer: No Cardiac Catheterization: No Cardiovascular Problems: Yes High Cholesterol: No Chemotherapy: No Chest Pain: Yes Congestive Heart Failure: No COPD: No Cerebrovascular Accident: Yes Diabetes: No Endocrine: No Gastrointestinal Disorders: No Genitourinary: No Hypertension: Yes Immune Disorder: No Implanted Vascular Access Dvce: No Musculoskeletal: No Neurologic: Yes ("MILD STROKE" 2013) Psychiatric: No Reproductive: No Respiratory: No Immunizations Current: Yes Migraines: Yes Myocardial Infarction: No Radiation Therapy: No Sleep Apnea: No Thyroid Disease: No Past Surgical History Coronary Artery Bypass Graft: No Other Surgery: No Social History Alcohol Use: Yes (OCC) Tobacco Use: No Substance Use: No Allergies-Medications (Allergen,Severity, Reaction): Coded Allergies: No Known Allergies (Verified , 01/06/17) Reported Meds & Prescriptions Reported Meds & Active Scripts Active Amlodipine (Amlodipine Besylate) 10 Mg Tab 10 Mg PO DAILY Lipitor (Atorvastatin Calcium) 40 Mg Tab 40 Mg PO HS Hydrochlorothiazide 25 Mg Tab 25 Mg PO DAILY Lisinopril 40 Mg Tab 40 Mg PO DAILY Aspirin 81 Mg Chew 81 Mg CHEW DAILY Levaquin (Levofloxacin) 500 Mg Tab 500 Mg PO DAILY Reported Metoprolol Tartrate 100 Mg Tab 100 Mg PO BID Clonidine (Clonidine HCl) 0.1 Mg Tab 0.1 Mg PO HS Review of Systems ROS Limitations: Clinical Condition, Intubated, Altered Mental Status Physical Exam Narrative GENERAL: 46-year-old male moderate to severe distress, GCS 7 (eyes 2, verbal 2, motor 3) SKIN: Focused skin assessment warm/dry. HEAD: Atraumatic. Normocephalic. EYES: Pupils are pinpoint though equally reactive. ENT: No nasal bleeding or discharge. Mucous membranes pink and moist. NECK: Trachea midline. No JVD. CARDIOVASCULAR: Regular rate and rhythm. No murmur appreciated. RESPIRATORY: No accessory muscle use. Clear to auscultation. Breath sounds equal bilaterally. GASTROINTESTINAL: Abdomen soft, non-tender, nondistended. Hepatic and splenic margins not palpable. MUSCULOSKELETAL: No obvious deformities. No clubbing. No cyanosis. No edema. NEUROLOGICAL: There is a right-sided facial droop. There is flaccid paralysis of the right upper extremity although occasional flexion activity is observed. GCS as described. Pupils appear pinpoint though equally reactive. PSYCHIATRIC: Appropriate mood and affect; insight and judgment normal. Data Data Last Documented VS Vital Signs Date Time Temp Pulse Resp B/P (MAP) Pulse Ox O2 Delivery O2 Flow Rate FiO2 08/29/17 00:15 100 100 08/28/17 23:57 Nasal Cannula 2.00 08/28/17 23:49 101 18 238/153 (181) Orders Orders Diet Npo (08/29/17 Breakfast) Activity Bed Rest (08/28/17 ) Electrocardiogram (08/28/17 ) I-Stat Creatinine (08/28/17 23:47) I-Stat Profile (08/28/17 23:47) Prothrombin Time / Inr (Pt) (08/28/17 23:47) Act Partial Throm Time (Ptt) (08/28/17 23:47) Complete Blood Count With Diff (08/28/17 23:47) Fibrinogen (08/28/17 23:47) Creatine Kinase (Cpk) (08/28/17 23:47) Troponin I (08/28/17 23:47) Ua Includes Microscopic (08/28/17 23:47) Drug Screen, Random Urine (08/28/17 23:47) Type And Screen (08/28/17 23:47) Ct Brain W/O Iv Contrast(Rout) (08/28/17 ) Chest, Single Ap (08/28/17 ) Cta Brain W Iv Contrast W 3d (08/28/17 23:47) Cta Neck W Iv Contrast W 3d (08/28/17 23:47) Blood Glucose (08/28/17 23:47) Ecg Monitoring (08/28/17 23:47) Neuro Checks Q2HX12,Q4H (08/28/17 23:47) Nursing Bedside Swallow Assess .ONCE (08/28/17 23:47) Iv Access Insert/Monitor (08/28/17 23:47) NPO (08/28/17:47) Oximetry (08/28/17:47) Oxygen Administration (08/28/17:47) Sodium Chlor 0.9% 1000 Ml Inj (Ns 1000 M (08/28/17 23:47) Resp Oxygen Tae C Titrat 1-4 L (08/28/17 23:47) Cath For Specimen (08/28/17 23:47) Nicardipine Inj (Cardene Inj) (08/29/17 00:00) Propofol 1000 Mg/100 Ml Inj (Diprivan 10 (08/29/17 00:00) ^ Infusion (08/28/17 23:56) Neurological Rass Scale Q30MX2,Q2HX4,Q4H (08/28/17 23:56) Propofol 1000 Mg/100 Ml Inj (Diprivan 10 (08/28/17 23:57) Ng Gastric Tube Insert/Monitor (08/28/17 23:58) Urinary Catheter Insert/Apply (08/28/17 23:58) Etomidate Inj (Amidate Inj) (08/29/17 00:00) Succinylcholine Inj (Quelicin Inj) (08/29/17 00:00) Sodium Chloride 0.9% Flush (Ns Flush) (08/29/17 00:00) Restraints Non-Violent PRINCE.Q3H (08/28/17 23:58) Rocuronium Inj (Zemuron Inj) (08/29/17 00:15) Iohexol 350 Inj (Omnipaque 350 Inj) (08/29/17 00:18) Admit Order (Ed Use Only) (08/29/17 00:25) Labs Laboratory Tests Test 08/28/17 23:47 08/28/17 23:50 Urine Opiates Screen NEG Urine Barbiturates Screen NEG Urine Amphetamines Screen NEG Urine Benzodiazepines Screen NEG Urine Cocaine Screen NEG Urine Cannabinoids Screen NEG White Blood Count 8.5 TH/MM3 Red Blood Count 5.32 MIL/MM3 Hemoglobin 14.2 GM/DL Bedside Hemoglobin 15.6 G/DL Hematocrit 43.0 % Bedside Hematocrit 46.0 % Mean Corpuscular Volume 80.7 FL Mean Corpuscular Hemoglobin 26.6 PG Mean Corpuscular Hemoglobin Concent 33.0 % Red Cell Distribution Width 14.6 % Platelet Count 238 TH/MM3 Mean Platelet Volume 10.1 FL Neutrophils (%) (Auto) 66.1 % Lymphocytes (%) (Auto) 25.4 % Monocytes (%) (Auto) 7.7 % Eosinophils (%) (Auto) 0.4 % Basophils (%) (Auto) 0.4 % Neutrophils # (Auto) 5.6 TH/MM3 Lymphocytes # (Auto) 2.2 TH/MM3 Monocytes # (Auto) 0.7 TH/MM3 Eosinophils # (Auto) 0.0 TH/MM3 Basophils # (Auto) 0.0 TH/MM3 CBC Comment DIFF FINAL Differential Comment Prothrombin Time 10.4 SEC Prothromb Time International Ratio 0.9 RATIO Activated Partial Thromboplast Time 26.4 SEC Fibrinogen 291 mg/dL Bedside Sodium 143 MMOL/L Bedside Potassium 3.1 MMOL/L Bedside Chloride 98 MMOL/L Bedside Blood Urea Nitrogen 22 MG/DL Bedside Creatinine 1.7 MG/DL Bedside Glucose 172 MG/DL Total Creatine Kinase 238 U/L Troponin I 0.03 NG/ML [facility] Medical Screen Exam Complete: Yes Emergency Medical Condition: Yes Medical Record Reviewed: Yes EKG Prior to Arrival: Yes Differential Diagnosis Hypertensive encephalopathy, hemorrhagic stroke, ischemic stroke, myocardial infarction, substance abuse, seizure Narrative Course CBC & BMP Diagram 08/28/17 23:50 CT of the head shows a bleed in the right thalamus with extension of the lateral third ventricles with a shift onto the right side of 6 mm The patient was intubated shortly following arrival as noted. Propofol and nicardipine started. d/w Dr Tinajero for neurosurgery pt require rocuronium 2/2 agitation with maximum propofol infusion rate d/w Dr Churchill for [facility] Intubation uncomplicated; typical anatomy observed Last 24 hours Impressions Neck CTA 08/28/17 8520 Signed Impressions: Service Date/Time: Tuesday, August 29, 2017 00:13 - CONCLUSION: Negative carotid CTA. David Snell MD Head CTA 08/28/17 2347 Signed Impressions: Service Date/Time: Tuesday, August 29, 2017 00:13 - CONCLUSION: 1. No evidence of vessel truncation or aneurysm. 2. No abnormal vessels in the region of the large left thalamic hemorrhage. David Snell MD Head CT 08/28/17 0000 Signed Impressions: Service Date/Time: Tuesday, August 29, 2017 00:06 - CONCLUSION: Acute hemorrhage in the left thalamus with blood products extending into the left lateral and 3rd ventricle and associated 6 mm midline shift towards the right. The findings were called by telephone to Dr. Dent in the emergency room at 12: 13 AM.. David Snell MD Chest X-Ray 08/28/17 0000 Signed Impressions: Service Date/Time: Tuesday, August 29, 2017 00:24 - CONCLUSION: Left lower lobe consolidation and patchy infiltrates in the central right lung. David Snell MD Critical Care Narrative Aggregate critical care time was 40 minutes. Time to perform other separately billable procedures was not included in the critical care time. My time did not include minutes spent treating any other patients simultaneously or on activities that did not directly contribute to the patient's treatment. The services I provided to this patient were to treat and/or prevent clinically significant deterioration that could result in: Cardiopulmonary arrest I provided critical care services requiring my management, as noted below: Chart data review, documentation time, medication orders and management, vital sign assessments/reviewing monitor data, ordering and reviewing lab tests, ordering and interpreting/reviewing x-rays and diagnostic studies, care of the patient and discussion of the patient with the admitting physicians. Stroke Alert NIHSS NIH Stroke Scale Result: 15 NIHSS Time Completed: 23:47 Thrombolytic Contraindications Contraindications: CT Intracranial Bleed Procedures Procedure Narrative After the risks and benefits were discussed the following procedure was performed: INTUBATION: The patient was put in optimal position for the procedure. Rapid sequence intubation was initiated by me using 20 milligrams of etomidate IV and 100 milligrams of succhinylcholine IV. The patient was intubated with a 8-0 cuffed endotracheal tube. Tube placement was confirmed by visualization of the tube and balloon passing through the cords, capnometry and subsequent chest x-ray. Breath sounds were equal and well aerated bilaterally postintubation. No breath sounds over stomach. Patient tolerated procedure well. Diagnosis Diagnosis: Primary Impression: Intracranial hemorrhage Additional Impressions: Hypertensive emergency Hemorrhagic stroke Admitting Physician Requests: Ant Shea MD Aug 29, 2017 00:08
[2017-08-29 00:11] LABS: AUTOMATED NEUTROPHIL # 5.6 TH/MM3 (1.8-7.7); BASOPHIL % 0.4 % (0.0-2.0); EOSINOPHIL % 0.4 % (0.0-4.0); HEMOGLOBIN 14.2 GM/DL (13.0-17.0); LYMPH % 25.4 % (9.0-44.0); LYMPHOCYTE # 2.2 TH/MM3 (1.0-4.8); MEAN CELL VOLUME 80.7 FL (80.0-100.0); MEAN CORPUSCULAR HEMOGLOBIN 26.6 PG (27.0-34.0); MEAN PLATELET VOLUME 10.1 FL (7.0-11.0); MONO % 7.7 % (0.0-8.0); MONOCYTE # 0.7 TH/MM3 (0-0.9); NEUT % 66.1 % (16.0-70.0); PLATELET COUNT 238 TH/MM3 (150-450); RED BLOOD COUNT 5.32 MIL/MM3 (4.50-5.90); RED CELL DISTRIBUTION WIDTH 14.6 % (11.6-17.2); WHITE BLOOD COUNT 8.5 TH/MM3 (4.0-11.0)
[2017-08-29] MEDS ORDERED: ROCURONIUM INJ 50 MG/5 ML VIAL IV ONE (00:15)
[2017-08-29] MEDS ORDERED: IOHEXOL 350 MG/ML 10 ML VIAL (for RAD DIAG) IVCONTRAST ONE (00:18)
--- NOTE | 2017-08-29 00:18 | RADRPT ---
EXAM DATE/TIME: 08/29/2017 00:06 [facility] COMPARISON: CT BRAIN W/O CONTRAST, April 21, 2016, 17:59. INDICATIONS : Stroke alert; patient unresponsive. RADIATION DOSE: 46.39 CTDIvol (mGy) MEDICAL HISTORY : Non-responsive. SURGICAL HISTORY : Non-responsive. ENCOUNTER: Initial ACUITY: 1 day PAIN SCALE: Non-responsive LOCATION: cranial TECHNIQUE: Multiple contiguous axial images were obtained of the head. Using automated exposure control and adj ustment of the mA and/or kV according to patient size, radiation dose was kept as low as reasonably a chievable to obtain optimal diagnostic quality images. DICOM format image data is available electro nically for review and comparison. FINDINGS: CEREBRUM: Examination is abnormal demonstrating acute hemorrhage in the left thalamus measuring 3.0 x 2.0 cm. There is extension of blood into the left lateral ventricle and 3rd ventricle and there is 6 mm midli ne shift towards the right. Some blood is also seen bilaterally in the foramen of Monro. POSTERIOR FOSSA: The cerebellum and brainstem are intact. The 4th ventricle is midline. The cerebellopontine angle i s unremarkable. EXTRACRANIAL: The visualized portion of the orbits is intact. SKULL: The calvaria is intact. No evidence of skull fracture. CONCLUSION: Acute hemorrhage in the left thalamus with blood products extending into the left lateral and 3rd rosalba tricle and associated 6 mm midline shift towards the right. The findings were called by telephone to Dr. Dent in the emergency room at 12: 13 AM.. David Snell MD on August 29, 2017 at 0:13 Board Certified Radiologist. This report was verified electronically.
[2017-08-29 00:21] LABS: INTERNATIONAL NORMALIZED RATIO 0.9 RATIO; PROTHROMBIN TIME - PATIENT 10.4 SEC (9.8-11.6)
[2017-08-29 00:28] LABS: TROPONIN I 0.03 NG/ML (0.02-0.05)
--- NOTE | 2017-08-29 00:37 | RADRPT ---
EXAM DATE/TIME: 08/29/2017 00:13 [facility] COMPARISON: CT BRAIN W/O CONTRAST, August 29, 2017, 0:06. MRI BRAIN W/O CONTRAST, February 09, 2014, 8:48. CT BRAI N W/O CONTRAST, September 20, 2015, 17:09. CTA BRAIN W 3D RECON, February 09, 2014, 21:19. INDICATIONS : Stroke alert; patient unresponsive. IV CONTRAST: 100 cc Omnipaque 350 (iohexol) IV ; Cumulative dose for multiple exams. RADIATION DOSE: 28.39 CTDIvol (mGy) ; Combined studies MEDICAL HISTORY : Non-responsive. SURGICAL HISTORY : Non-responsive. ENCOUNTER: Initial ACUITY: 1 day PAIN SCALE: Non-responsive LOCATION: cranial TECHNIQUE: Volumetric scanning was performed using a multi-row detector CT scanner. The data was post processed with a variety of visualization algorithms including full volume maximum intensity projection, multi -planar sliding thin slab reformation, curved planar reformation, and surface rendering techniques. Using automated exposure control and adjustment of the mA and/or kV according to patient size, radiat ion dose was kept as low as reasonably achievable to obtain optimal diagnostic quality images. DICO M format image data is available electronically for review and comparison. FINDINGS: There is excellent visualization of the major intracranial arteries out to the second-order branch ve ssels. There is no evidence for aneurysm, vessel truncation or stenosis, and no evidence for vascula r malformation. Flow is seen in anterior communicating artery and in both PCOM. No abnormal vessel s in the region of the left thalamic hemorrhage. CONCLUSION: 1. No evidence of vessel truncation or aneurysm. 2. No abnormal vessels in the region of the large left thalamic hemorrhage. David Snell MD on August 29, 2017 at 0:31 Board Certified Radiologist. This report was verified electronically.
--- NOTE | 2017-08-29 00:38 | RADRPT ---
EXAM DATE/TIME: 08/29/2017 00:24 [facility] COMPARISON: CHEST SINGLE AP, January 09, 2017, 7:54. INDICATIONS : Stroke alert. MEDICAL HISTORY : Hypertension. Cerebrovascular accident. Headache. Dyspnea. Gastrointestinal disorders. Urinary freque ncy SURGICAL HISTORY : None. ENCOUNTER: Initial ACUITY: 1 day PAIN SCORE: Non-responsive. LOCATION: Bilateral chest FINDINGS: Endotracheal tube tip is 2 cm above the connie. Gastric tube tip and side-port project within the st omach. Consolidative infiltrates in left mid and lower lung with air bronchograms cause loss of deli neation of the entire left hemidiaphragm. There is some indistinctness of the central bronchopulmona ry markings on the right side and some central patchy infiltrates. Mild elevation right hemidiaphrag m. The heart is mildly enlarged, similar to prior chest x-ray. CONCLUSION: Left lower lobe consolidation and patchy infiltrates in the central right lung. David Snell MD on August 29, 2017 at 0:36 Board Certified Radiologist. This report was verified electronically.
--- NOTE | 2017-08-29 00:40 | RADRPT ---
EXAM DATE/TIME: 08/29/2017 00:13 [facility] COMPARISON: CTA CAROTID ARTERIES W 3D RECON, February 11, 2014, 12:57. INDICATIONS : Stroke alert; patient unresponsive. IV CONTRAST: 100 cc Omnipaque 350 (iohexol) IV ; Cumulative dose for multiple exams. RADIATION DOSE: 28.39 CTDIvol (mGy) ; Combined studies MEDICAL HISTORY : Non-responsive. SURGICAL HISTORY : Non-responsive. ENCOUNTER: Initial ACUITY: 1 day PAIN SCALE: Non-responsive LOCATION: neck Elevated flow velocities and ICA/CCA ratios have been found to correlate with increased degrees of vessel stenosis, calculated as percentage of diameter relative to a normal segment of distal ICA/CCA. TECHNIQUE: Volumetric scanning was performed using a multirow detector CT scanner. The data was post processed with a variety of visualization algorithms including full-volume maximum intensity projection, multip lanar sliding thin-slab reformation, curved-planar reformation, and surface-rendering techniques. Us ing automated exposure control and adjustment of the mA and/or kV according to patient size, radiatio n dose was kept as low as reasonably achievable to obtain optimal diagnostic quality images. DICOM f ormat image data is available electronically for review and comparison. FINDINGS: AORTIC ARCH: There is a three-vessel origin of the great vessels from the aorta. No evidence of ostial narrowing. RIGHT CAROTID: The common carotid artery is intact. The carotid bulb has a normal configuration without ulceration o r narrowing. The internal carotid artery lumen is smooth without stenosis. The external carotid robert ry is intact. LEFT CAROTID: The common carotid artery is intact. The carotid bulb has a normal configuration without ulceration or narrowing. The internal carotid artery lumen is smooth without stenosis. The external carotid ar yolanda is intact. VERTEBRALS: The vertebral arteries have a symmetric diameter. No stenotic lesions are seen. CONCLUSION: Negative carotid CTA. David Snell MD on August 29, 2017 at 0:37 Board Certified Radiologist. This report was verified electronically.
[2017-08-29] MEDS ORDERED: PROPOFOL 1000 MG/100 ML INJ 100 ML IV PRN ×2 (00:45)
[2017-08-29] MEDS ORDERED: SENNOSIDES 8.6 MG TAB PO PRN (00:45)
[2017-08-29] MEDS ORDERED: LACTULOSE SYRUP 20 GM/30 ML CUP PO PRN (00:45)
[2017-08-29] MEDS ORDERED: ONDANSETRON HCL 4 MG/2 ML VIAL IV PUSH PRN (00:45)
[2017-08-29] MEDS ORDERED: BISACODYL 10 MG SUPP RECTAL PRN (00:45)
[2017-08-29] MEDS ORDERED: CHLORHEXIDINE GLUCONATE 2 % 1 PACK (2 CLOTHS) TOP PRN (00:45)
[2017-08-29] MEDS ORDERED: MAGNESIUM HYDROXIDE SUSP 30 ML CUP PO PRN (00:45)
[2017-08-29] MEDS ORDERED: MISCELLANEOUS NURSING INFORMATION XX SCH (00:45)
--- NOTE | 2017-08-29 00:54 | HHI.HP ---
HPI Service Critical Care Medicine Primary Care Physician Unknown Admission Diagnosis Hemorrhage Stroke, Hypertensive Crisis Diagnosis: Chief Complaint: Altered mental status. Headache. Travel History International Travel<30 Days: No (UNK) Contact w/Intl Traveler <30 Da: No (UNK) Traveled to Known Affected Are: No (UNK) History of Present Illness 46 y/o man with longstanding hypertension and previous CVA presents obtunded with new neurological symptoms noticed prior to arrival. Timeline unclear. Required intubation in ED for airway protection. CT head shows left thalamic bleed and shift away from bleed. Toxicology screen pending. Review of Systems ROS Unobtainable, no family Past Family Social History Allergies: Coded Allergies: No Known Allergies (Verified , 01/06/17) Past Medical History Past Medical History Asthma: No Blood Disorders: No Heart Rhythm Problems: No Cancer: No Cardiac Catheterization: No Cardiovascular Problems: Yes High Cholesterol: No Chemotherapy: No Chest Pain: Yes Congestive Heart Failure: No COPD: No Cerebrovascular Accident: Yes Diabetes: No Endocrine: No Gastrointestinal Disorders: No Genitourinary: No Hypertension: Yes Immune Disorder: No Implanted Vascular Access Dvce: No Musculoskeletal: No Neurologic: Yes ("MILD STROKE" 2013) Psychiatric: No Reproductive: No Respiratory: No Immunizations Current: Yes Migraines: Yes Myocardial Infarction: No Radiation Therapy: No Sleep Apnea: No Thyroid Disease: No Past Surgical History Coronary Artery Bypass Graft: No Other Surgery: No Social History Alcohol Use: Yes (OCC) Tobacco Use: No Substance Use: No Allergies-Medications Allergies-Medications (Allergen,Severity, Reaction): Coded Allergies: No Known Allergies (Verified , 01/06/17) Reported Meds & Prescriptions Reported Meds & Active Scripts Active Amlodipine (Amlodipine Besylate) 10 Mg Tab 10 Mg PO DAILY Lipitor (Atorvastatin Calcium) 40 Mg Tab 40 Mg PO HS Hydrochlorothiazide 25 Mg Tab 25 Mg PO DAILY Lisinopril 40 Mg Tab 40 Mg PO DAILY Aspirin 81 Mg Chew 81 Mg CHEW DAILY Levaquin (Levofloxacin) 500 Mg Tab 500 Mg PO DAILY Reported Metoprolol Tartrate 100 Mg Tab 100 Mg PO BID Clonidine (Clonidine HCl) 0.1 Mg Tab 0.1 Mg PO HS Physical Exam Vital Signs Vital Signs Date Time Temp Pulse Resp B/P (MAP) Pulse Ox O2 Delivery O2 Flow Rate FiO2 08/28/17 23:57 96 Nasal Cannula 2.00 08/28/17 23:49 101 18 238/153 (181) 97 08/28/17 23:42 96 Nasal Cannula 2.00 Physical Exam Gen: Obtunded. Head: Atraumatic. Conjunctivae injected. Neck: Supple, orally intubated. Lungs: Clear, no adventitious sounds. Heart: Tachycardia, NL S1S2. No m,r. + JVD. Abdomen: Mildly distended, quiet. No guarding. Extremities: Warm, well perfused. Neuro: Moves 4 limbs with strength although right arm weaker than other limbs. Pupils 1 mm. Unresponsive to any commands. Withdraws multiple limbs to any noxious stimulation. Laboratory Laboratory Tests Test 08/28/17 23:50 White Blood Count 8.5 Red Blood Count 5.32 Hemoglobin 14.2 Bedside Hemoglobin 15.6 Hematocrit 43.0 Bedside Hematocrit 46.0 Mean Corpuscular Volume 80.7 Mean Corpuscular Hemoglobin 26.6 Mean Corpuscular Hemoglobin Concent 33.0 Red Cell Distribution Width 14.6 Platelet Count 238 Mean Platelet Volume 10.1 Neutrophils (%) (Auto) 66.1 Lymphocytes (%) (Auto) 25.4 Monocytes (%) (Auto) 7.7 Eosinophils (%) (Auto) 0.4 Basophils (%) (Auto) 0.4 Neutrophils # (Auto) 5.6 Lymphocytes # (Auto) 2.2 Monocytes # (Auto) 0.7 Eosinophils # (Auto) 0.0 Basophils # (Auto) 0.0 CBC Comment DIFF FINAL Differential Comment Prothrombin Time 10.4 Prothromb Time International Ratio 0.9 Activated Partial Thromboplast Time 26.4 Fibrinogen 291 Bedside Sodium 143 Bedside Potassium 3.1 Bedside Chloride 98 Bedside Blood Urea Nitrogen 22 Bedside Creatinine 1.7 Bedside Glucose 172 Total Creatine Kinase 238 Troponin I 0.03 Result Diagram: 08/28/17 2350 Caprini VTE Risk Assessment Caprini VTE Risk Assessment: No/Low Risk (score <= 1) Caprini Risk Assessment Model Point Value = 1 Point Value = 2 Point Value = 3 Point Value = 5 Age 41-60 Minor surgery BMI > 25 kg/m2 Swollen legs Varicose veins or History of unexplained or recurrent spontaneous Oral contraceptives or hormone replacement Sepsis (< 1 month) Serious lung disease, including pneumonia (< 1 month) Abnormal pulmonary function Acute myocardial infarction Congestive heart failure (< 1 month) History of inflammatory bowel disease Medical patient at bed rest Age 61-74 Arthroscopic surgery Major open surgery (> 45 min) Laparoscopic surgery (> 45 min) Malignancy Confined to bed (> 72 hours) Immobilizing plaster cast Central venous access Age >= 75 History of VTE Family history of VTE Factor V Leiden Prothrombin [id number] Lupus anticoagulant Anticardiolipin antibodies Elevated serum homocysteine Heparin-induced thrombocytopenia Other congenital or acquired thrombophilia Stroke (< 1 month) Elective arthroplasty Hip, pelvis, or leg fracture Acute spinal cord injury (< 1 month) Prophylaxis Regimen Total Risk Factor Score Risk Level Prophylaxis Regimen 0-1 Low Early ambulation 2 Moderate Order ONE of the following: *Sequential Compression Device (SCD) *Heparin 5000 units SQ BID 3-4 Higher Order ONE of the following medications: *Heparin 5000 units SQ TID *Enoxaparin/Lovenox 40 mg SQ daily (WT < 150 kg, CrCl > 30 mL/min) *Enoxaparin/Lovenox 30 mg SQ daily (WT < 150 kg, CrCl > 10-29 mL/min) *Enoxaparin/Lovenox 30 mg SQ BID (WT < 150 kg, CrCl > 30 mL/min) AND/OR *Sequential Compression Device (SCD) 5 or more Highest Order ONE of the following medications: *Heparin 5000 units SQ TID (Preferred with Epidurals) *Enoxaparin/Lovenox 40 mg SQ daily (WT < 150 kg, CrCl > 30 mL/min) *Enoxaparin/Lovenox 30 mg SQ daily (WT < 150 kg, CrCl > 10-29 mL/min) *Enoxaparin/Lovenox 30 mg SQ BID (WT < 150 kg, CrCl > 30 mL/min) AND *Sequential Compression Device (SCD) Assessment and Plan Problem List: (1) Intracranial hemorrhage ICD Code: I62.9 - Nontraumatic intracranial hemorrhage, unspecified Status: Acute (2) Hemorrhagic stroke ICD Code: I61.9 - Nontraumatic intracerebral hemorrhage, unspecified Status: Acute (3) Hypertensive emergency ICD Code: I10 - Hypertensive emergency Status: Acute Assessment and Plan Plan: 1. PRVC vent mode. 2. Maintain SBP < 140. 3. Cardene gtt infusion. 4. Place A-line. 5. No chemical DVT Px. 6. SCDs 7. Protonix. 8. Repeat head CT. Overall impression: Critically ill with hypertensive crisis at 250/153 with thalamic bleed left side and shift to right. Devastating neurological injury requiring ventilator support. Critical Care 45 mins aside from procedures. Jack Farmer MD Aug 29, 2017 00:54
--- NOTE | 2017-08-29 00:56 | PD.CONS ---
History of Present Illness Service Neurosurgery Consult Requested By Dr Filipe Grant Reason for Consult [facility] Primary Care Physician Unknown Diagnoses: History of Present Illness History of hypertension who was brought to the emergency room per [facility] after being found with altered mental status, right hemiparesis. He had reportedly been seen to be normal approximately 3-1/2 hours prior. Systolic blood pressure greater than 260/130 on initial evaluation. No seizure activity reported. Positive emesis. Per emergency room personnel the patient was responding verbally, difficulty raising his right arm upon initial arrival. He was intubated in the emergency room and a stat CT scan accomplished which has revealed a primarily left thalamic intracranial hemorrhage. Review of Systems ROS Limitations: Altered Mental Status, Unresponsive Past Family Social History Allergies: Coded Allergies: No Known Allergies (Verified , 01/06/17) Past Medical History Hypertension previous stroke in 2013 Negative diabetes Past Surgical History No Major surgeries reported Reported Medications Reported Meds & Active Scripts Active Amlodipine (Amlodipine Besylate) 10 Mg Tab 10 Mg PO DAILY Lipitor (Atorvastatin Calcium) 40 Mg Tab 40 Mg PO HS Hydrochlorothiazide 25 Mg Tab 25 Mg PO DAILY Lisinopril 40 Mg Tab 40 Mg PO DAILY Aspirin 81 Mg Chew 81 Mg CHEW DAILY Levaquin (Levofloxacin) 500 Mg Tab 500 Mg PO DAILY Reported Metoprolol Tartrate 100 Mg Tab 100 Mg PO BID Clonidine (Clonidine HCl) 0.1 Mg Tab 0.1 Mg PO HS Family History Negative for cancer, cardiac disease per family Social History No cigarette use Occasional alcohol Physical Exam Vital Signs Vital Signs Date Time Temp Pulse Resp B/P (MAP) Pulse Ox O2 Delivery O2 Flow Rate FiO2 08/28/17 23:57 96 Nasal Cannula 2.00 08/28/17 23:49 101 18 238/153 (181) 97 08/28/17 23:42 96 Nasal Cannula 2.00 Physical Exam GENERAL: Moderately obese patient, intubated. SKIN: No rashes, ecchymoses or lesions. Cool and dry. HEAD: Atraumatic. Normocephalic. No temporal or scalp tenderness. EYES: Mild conjunctival edema. Pupils 2 mm. Fundi not well seen due to small pupils. ENT: Intubated. Tongue edema with some bleeding around the tongue NECK: Trachea midline. No JVD or lymphadenopathy. No definite nuchal rigidity CARDIOVASCULAR: Regular rate and rhythm without murmurs, gallops, or rubs. RESPIRATORY: Clear to auscultation. Breath sounds equal bilaterally. No wheezes , rales, or rhonchi. GASTROINTESTINAL: Abdomen soft, absent bowel sounds MUSCULOSKELETAL: Extremities without clubbing, cyanosis, or edema. No joint tenderness, effusion, or edema noted. No calf tenderness. Posterior tibial pulse 2+ bilateral NEUROLOGICAL: Intubated. Patient received etomidate prior to intubation. No eye opening to voice or deep pain Does not follow commands Pupils 2 mm nonreactive Bilateral mild lateral deviation Minimal disconjugate oculocephalic responses Absent corneal responses No facial grimacing to deep pain No response to pain all extremities Adithya's response absent bilateral No ankle clonus Plantar responses are absent Laboratory Laboratory Tests Test 08/28/17 23:50 White Blood Count 8.5 Red Blood Count 5.32 Hemoglobin 14.2 Bedside Hemoglobin 15.6 Hematocrit 43.0 Bedside Hematocrit 46.0 Mean Corpuscular Volume 80.7 Mean Corpuscular Hemoglobin 26.6 Mean Corpuscular Hemoglobin Concent 33.0 Red Cell Distribution Width 14.6 Platelet Count 238 Mean Platelet Volume 10.1 Neutrophils (%) (Auto) 66.1 Lymphocytes (%) (Auto) 25.4 Monocytes (%) (Auto) 7.7 Eosinophils (%) (Auto) 0.4 Basophils (%) (Auto) 0.4 Neutrophils # (Auto) 5.6 Lymphocytes # (Auto) 2.2 Monocytes # (Auto) 0.7 Eosinophils # (Auto) 0.0 Basophils # (Auto) 0.0 CBC Comment DIFF FINAL Differential Comment Prothrombin Time 10.4 Prothromb Time International Ratio 0.9 Activated Partial Thromboplast Time 26.4 Fibrinogen 291 Bedside Sodium 143 Bedside Potassium 3.1 Bedside Chloride 98 Bedside Blood Urea Nitrogen 22 Bedside Creatinine 1.7 Bedside Glucose 172 Total Creatine Kinase 238 Troponin I 0.03 Result Diagram: 08/28/17 2350 Imaging 08/29/2017 CT scan head images reveal an approximately 2 x 3 cm left thalamic intracranial hemorrhage with mild to moderate extension of blood into the third and left lateral ventricle. A partially 6 mm focal midline shift. The cisterns remain relatively patent. 08/29/2017 CT angiogram head reveals no significant abnormalities other than shift related to the hemorrhage. Assessment and Plan Assessment and Plan Impression: 1. Left thalamic intracranial hemorrhage 2. Hypertension Recommendations: Patient is being admitted to the surgical intensive care unit. Maintaining ventilatory support Nicardipine has been initiated in the emergency room Arterial line Non-chemical DVT prophylaxis Follow-up CT scan head Ulcer prophylaxis Patient's family in the emergency room during initial evaluation Orville Tinajero MD Aug 29, 2017 00:56
[2017-08-29] MEDS: SODIUM CHLOR 0.9% 1000 ML INJ 1,000 ML IV SCH ×3 (01:00→23:23)
[2017-08-29] MEDS: niCARdipine INJ 25 MG in SODIUM CHLOR 0.9% 250 ML INJ 240 ML IV PRN ×4 (01:00→22:25)
[2017-08-29] MEDS ORDERED: fentaNYL DRIP 250 ML ONE (01:30)
[2017-08-29] MEDS: fentaNYL DRIP 250 ML IV PRN ×2 (01:30→14:43)
[2017-08-29] MEDS: PROPOFOL 1000 MG/100 ML INJ 100 ML IV PRN ×7 (01:55→20:25)
[2017-08-29] MEDS ORDERED: ROCURONIUM INJ 100 MG/10 ML VIAL IV ONE (02:00)
[2017-08-29] MEDS: CHLORHEXIDINE GLUCONATE 2 % 1 PACK (2 CLOTHS) TOP SCH (04:00)
[2017-08-29 04:21] LABS: GLUCOSE,URINE 70 mg/dL (NEG); KETONE, URINE NEG (NEG); URINE COLOR YELLOW (YELLW/STRAW)
[2017-08-29 04:22] LABS: BACTERIA, URINE OCC /hpf; BILIRUBIN, URINE NEGATIVE (NEG); BLOOD, URINE LARGE (NEG); NITRITE,URINE NEG (NEG); URINE LEUKOCYTE ESTERASE NEGATIVE (NEG)
[2017-08-29] MEDS: cloNIDine HCL 0.1 MG TAB PO SCH ×3 (06:25→21:08)
[2017-08-29] MEDS ORDERED: SODIUM CHLOR 0.9% 1000 ML INJ 1,000 ML IV ONE (06:30)
[2017-08-29] MEDS: CHLORHEXIDINE 0.12% (ORAL KIT) 15 ML CUP MT SCH ×2 (07:27→19:45)
--- NOTE | 2017-08-29 08:35 | RADRPT ---
EXAM DATE/TIME: 08/29/2017 08:21 [facility] COMPARISON: CT BRAIN W/O CONTRAST, August 29, 2017, 0:06. INDICATIONS : Abnormal CT brain, evaluate status of intracerebral hemorrhage. RADIATION DOSE: 44.52 CTDIvol (mGy) MEDICAL HISTORY : Stroke. Hypertension. SURGICAL HISTORY : Non-responsive. ENCOUNTER: Initial ACUITY: 1 day PAIN SCALE: Non-responsive LOCATION: Bilateral head TECHNIQUE: Multiple contiguous axial images were obtained of the head. Using automated exposure control and adj ustment of the mA and/or kV according to patient size, radiation dose was kept as low as reasonably a chievable to obtain optimal diagnostic quality images. DICOM format image data is available electro nically for review and comparison. FINDINGS: Left thalamic and suhas-thalamic parenchymal hemorrhage again noted. There is blood in the lateral rosalba tricles, left worse than right. There is also blood in the third ventricle. No ventricular distention demonstrated. The amount of blood is not significantly changed. There is approximately 6 mm of right jama midline shift which is also stable. No new area of bleed. No evidence of an acute ischemic event. I don't see a mass lesion. CONCLUSION: Intraventricular and left thalamic hemorrhage not significantly changed. About 6 mm of rightward midl ine shift also not significantly changed. Ignacio Lares MD on August 29, 2017 at 8:30 Board Certified Radiologist. This report was verified electronically.
[2017-08-29] MEDS: DOCUSATE SODIUM 50 MG/SENNA 8.6 MG TAB PO SCH ×2 (09:50→21:07)
[2017-08-29] MEDS: HYDROCHLOROTHIAZIDE 25 MG TAB PO SCH (09:50)
[2017-08-29] MEDS: METOPROLOL TARTRATE 100 MG TAB PO SCH ×2 (09:50→21:08)
[2017-08-29] MEDS: PANTOPRAZOLE SODIUM 40 MG VIAL IV PUSH SCH (09:51)
[2017-08-29] MEDS: LISINOPRIL 20 MG TAB PO SCH (09:51)
--- NOTE | 2017-08-29 12:03 | EKG ---
Date Performed: 08/29/2017 Time Performed: 00:30:47 PTAGE: 46 years EKG: Sinus tachycardia LEFT VENTRICULAR HYPERTROPHY AND ST-T CHANGE ABNORMAL ECG PREVIOUS TRACING 01/08/17 Compared to prior study, T-wave inversion in the lateral leads is now present. DOCTOR: Natan Cano Interpretating Date/Time 08/29/2017 12:02:30
[2017-08-29] MEDS ORDERED: POTASSIUM CHLOR 40 MEQ PREMIX 100 ML IV PRN ×2 (13:15)
[2017-08-29] MEDS ORDERED: SODIUM PHOSPHATE INJ 30 MMOL in SODIUM CHLOR 0.9% 250 ML INJ 240 ML IV PRN (13:15)
[2017-08-29] MEDS ORDERED: MAGNESIUM OXIDE 400 MG TAB PO PRN (13:15)
[2017-08-29] MEDS ORDERED: MAGNESIUM SULFATE INJ 4 GM in SODIUM CHLORIDE 0.9% INJ 92 ML IV PRN (13:15)
[2017-08-29] MEDS ORDERED: POTASSIUM PHOSPHATE MONOBASIC 500 MG TAB PO/TUBE PRN (13:15)
[2017-08-29] MEDS ORDERED: POTASSIUM PHOSPHATE MONOBASIC 500 MG TAB PO PRN (13:15)
[2017-08-29] MEDS ORDERED: POTASSIUM PHOSPHATE INJ 30 MMOL in SODIUM CHLOR 0.9% 250 ML INJ 250 ML IV PRN (13:15)
[2017-08-29] MEDS ORDERED: MAGNESIUM SULFATE INJ 2 GM in SODIUM CHLORIDE 0.9% INJ 96 ML IV PRN (13:15)
[2017-08-29 13:33] LABS: CALCIUM 7.9 MG/DL (8.5-10.1); CREATININE 2.07 MG/DL (0.60-1.30)
[2017-08-29] MEDS: POTASSIUM CHLOR 20 MEQ PREMIX 100 ML IV PRN ×4 (14:27→17:06)
[2017-08-29] MEDS: ATORVASTATIN 40 MG TAB PO SCH (21:07)
[2017-08-29] MEDS: LABETALOL HCL 100 MG/20 ML VIAL IV PUSH PRN (23:14)
[2017-08-30] VITALS (19 sets, daily range): BP systolic 125–145; BP diastolic 65–76; PULSE 70–82; RESP 15–18; TEMP 98.8–100.9; O2SAT 95–100
[2017-08-30] MEDS: RESP: ALBUTEROL 2.5 MG/IPRATROPIUM 0.5 MG NEB (PRN) INH ×4 (00:04→19:44)
[2017-08-30] MEDS: PROPOFOL 1000 MG/100 ML INJ 100 ML IV PRN ×4 (00:29→08:24)
[2017-08-30] MEDS: CHLORHEXIDINE GLUCONATE 2 % 1 PACK (2 CLOTHS) TOP SCH (03:00)
[2017-08-30] MEDS: niCARdipine INJ 25 MG in SODIUM CHLOR 0.9% 250 ML INJ 240 ML IV PRN ×4 (03:45→20:00)
[2017-08-30 04:54] LABS: AUTOMATED NEUTROPHIL # 8.1 TH/MM3 (1.8-7.7); BASOPHIL % 0.3 % (0.0-2.0); EOSINOPHIL % 0.2 % (0.0-4.0); HEMATOCRIT 36.5 % (39.0-51.0); HEMOGLOBIN 11.9 GM/DL (13.0-17.0); LYMPH % 10.8 % (9.0-44.0); LYMPHOCYTE # 1.1 TH/MM3 (1.0-4.8); MEAN CELL VOLUME 81.7 FL (80.0-100.0); MEAN CORPUSCULAR HEMOGLOBIN 26.6 PG (27.0-34.0); MEAN CORPUSCULAR HGB CONC 32.5 % (32.0-36.0); MEAN PLATELET VOLUME 9.9 FL (7.0-11.0); MONO % 7.3 % (0.0-8.0); MONOCYTE # 0.7 TH/MM3 (0-0.9); NEUT % 81.4 % (16.0-70.0); PLATELET COUNT 203 TH/MM3 (150-450); RED BLOOD COUNT 4.46 MIL/MM3 (4.50-5.90); RED CELL DISTRIBUTION WIDTH 15.2 % (11.6-17.2); WHITE BLOOD COUNT 9.9 TH/MM3 (4.0-11.0)
[2017-08-30] MEDS: cloNIDine HCL 0.1 MG TAB PO SCH ×3 (05:20→21:19)
[2017-08-30] MEDS: fentaNYL DRIP 250 ML IV PRN (05:20)
[2017-08-30 05:31] LABS: BICARBONATE 26.3 MEQ/L (21.0-32.0); CALCIUM 7.8 MG/DL (8.5-10.1); CREATININE 1.85 MG/DL (0.60-1.30); MAGNESIUM 2.1 MG/DL (1.5-2.5); PHOSPHORUS 3.5 MG/DL (2.5-4.9)
[2017-08-30] MEDS: POTASSIUM CHLOR 20 MEQ PREMIX 100 ML IV PRN (06:13)
[2017-08-30] MEDS ORDERED: SODIUM PHOSPHATE INJ 30 MMOL in SODIUM CHLOR 0.9% 250 ML INJ 240 ML IV PRN (08:15)
[2017-08-30] MEDS ORDERED: MAGNESIUM SULFATE INJ 2 GM in SODIUM CHLORIDE 0.9% INJ 96 ML IV PRN (08:15)
[2017-08-30] MEDS ORDERED: POTASSIUM PHOSPHATE MONOBASIC 500 MG TAB PO PRN (08:15)
[2017-08-30] MEDS ORDERED: POTASSIUM CHLOR 20 MEQ PREMIX 100 ML IV PRN ×2 (08:15)
[2017-08-30] MEDS ORDERED: DEXTROSE 50% IN WATER 50 ML VIAL(D50) IV PUSH PRN (08:15)
[2017-08-30] MEDS ORDERED: MAGNESIUM SULFATE INJ 4 GM in SODIUM CHLORIDE 0.9% INJ 92 ML IV PRN (08:15)
[2017-08-30] MEDS ORDERED: POTASSIUM PHOSPHATE MONOBASIC 500 MG TAB PO/TUBE PRN (08:15)
[2017-08-30] MEDS ORDERED: POTASSIUM CHLOR 40 MEQ PREMIX 100 ML IV PRN ×2 (08:15)
[2017-08-30] MEDS ORDERED: POTASSIUM PHOSPHATE INJ 30 MMOL in SODIUM CHLOR 0.9% 250 ML INJ 250 ML IV PRN (08:15)
[2017-08-30] MEDS ORDERED: MAGNESIUM OXIDE 400 MG TAB PO PRN (08:15)
--- NOTE | 2017-08-30 08:16 | HHI.CCPN ---
Subjective Remarks/Hospital Course Hospital Course: 46 y/o man with longstanding hypertension and previous CVA presents obtunded with new neurological symptoms noticed prior to arrival. Timeline unclear. Required intubation in ED for airway protection. CT head shows left thalamic bleed and shift away from bleed. Toxicology screen pending. Subjective: 08/30: encephalopathy persists. bp under better control, still on cardene. on sedation vacation, moves left side spontaneously but nothing on right. Objective Vital Signs Date Time Temp Pulse Resp B/P (MAP) Pulse Ox O2 Delivery O2 Flow Rate FiO2 08/30/17 07:51 97 40 08/30/17 06:00 81 08/30/17 04:00 100.4 18 145/71 (95) 08/29/17 19:00 Mechanical Ventilator 08/28/17 23:57 2.00 Intake and Output 08/30/17 08/30/17 08/31/17 08:00 16:00 00:00 Intake Total 450 ml Output Total 1050 ml Balance -600 ml Result Diagram: 08/30/17 0435 08/30/17 0435 Objective Remarks Gen: Obtunded. Head: Atraumatic. Conjunctivae injected. Neck: Supple, orally intubated. Lungs: Clear, no adventitious sounds. Heart: Tachycardia, RR. Abdomen: Mildly distended, No guarding. Extremities: Warm, well perfused. Neuro: RASS -4. moves LUE/LLE spontaneously, no movement on right. does not follow commands. ? slight w/d to pain left side. pupils equal, round, reactive. A/P Problem List: (1) Intracranial hemorrhage ICD Code: I62.9 - Nontraumatic intracranial hemorrhage, unspecified Status: Acute (2) Hemorrhagic stroke ICD Code: I61.9 - Nontraumatic intracerebral hemorrhage, unspecified Status: Acute (3) Hypertensive emergency ICD Code: I10 - Hypertensive emergency Status: Acute Assessment and Plan Assessment: 46yM with left thalamic hypertensive hemorrhagic IPH, ICH score 2. remains off pathway, poor neurologic exam. continue carvedilol and tight bp control. frequent neuro checks. off pathway. cannot SBT or extubate while encephalopathic. Active Problems: Acute encephalopathy Left Thalamic Hemorrhage Intracerebral Hemorrhage, ICH score 2 Acute hypoxic and Hypercarbic Respiratory failure Hypertensive Emergency Plan: 1. PRVC vent mode. 2. Maintain SBP < 140. 3. Cardene gtt infusion. 4. add hydralazine, labetalol prn 5. send lipids 6. order 2d echo 7. minimize sedation 8. frequent neuro checks 9. start dexmedetomidine, RASS goal -2 10. portable EEG to rule out subclinical seizures. 11. SCDs. hold pharmacologic DVT prophylaxis given ICH. 12. appreciate nsgy involvement. 13. Protonix. Overall impression: Critically ill with hypertensive emergency and thalamic bleed. Devastating neurological injury requiring ventilator support. Critical Care 31 mins aside from procedures. Fan Smith MD Aug 30, 2017 08:16
[2017-08-30] MEDS: oxyCODONE HCL ORAL CONC 5 MG/0.25 ML SYRINGE PO SCH ×4 (09:12→20:35)
[2017-08-30] MEDS: METOPROLOL TARTRATE 100 MG TAB PO SCH ×2 (09:12→20:34)
[2017-08-30] MEDS: PANTOPRAZOLE SODIUM 40 MG VIAL IV PUSH SCH (09:12)
[2017-08-30] MEDS: CHLORHEXIDINE 0.12% (ORAL KIT) 15 ML CUP MT SCH ×2 (09:12→20:00)
[2017-08-30] MEDS: DOCUSATE SODIUM 50 MG/SENNA 8.6 MG TAB PO SCH ×2 (09:13→20:34)
[2017-08-30] MEDS: LISINOPRIL 20 MG TAB PO SCH (09:13)
[2017-08-30] MEDS: HYDROCHLOROTHIAZIDE 25 MG TAB PO SCH (09:13)
[2017-08-30 12:42] LABS: CHOLESTEROL/ HDL RATIO 8.25 RATIO; HDL CHOLESTEROL 26.9 MG/DL (40.0-60.0)
[2017-08-30] MEDS: INSULIN NovoLIN REGULAR SUPPLEMENTAL SCALE SQ SCH ×2 (13:26→17:23)
[2017-08-30] MEDS: LABETALOL HCL 100 MG/20 ML VIAL IV PUSH PRN (13:27)
[2017-08-30] MEDS: SODIUM CHLOR 0.9% 1000 ML INJ 1,000 ML IV SCH (13:27)
[2017-08-30] MEDS ORDERED: DEXMEDETOMIDINE INJ 50 ML IV SCH (14:15)
[2017-08-30] MEDS ORDERED: DEXMEDETOMIDINE INJ 200 MCG in SODIUM CHLORIDE 0.9% INJ 48 ML IV SCH (15:00)
--- NOTE | 2017-08-30 15:40 | MG ---
cc: AMBER MCKINNEY M.D. Lab No: Date: 08/30/2017 Age: Sex: M Race: DATE OF 1970, 46 years old EEG NUMBER [id number] ROOM [id number] Smith. With photic stimulation. MEDICATIONS Fentanyl at 50 micrograms. HISTORY Intubated. Withdrew to deep tactile stimulation all four extremities. CT scan shows intraventricular left thalamic hemorrhage. Came in as a stroke alert. Right-sided facial droop and weakness. High blood pressure of /130. DESCRIPTION OF RECORD The patient has overall 4-5 Hz background slowing with theta frequency. Some muscle artifact noted as well. There is some delta waves at times. No epileptiform features. Photic stimulation with minimal driving response. Some withdrawal to tactile stimulation but no change in the background. IMPRESSION Moderately slow background seen consistent with consistent with encephalopathic process. No epileptiform features were observed. Some of the background slowing may be due to sedation. Clinical correlation. MD ANDRADE Clark/NANCY /3:31 PM /3:34 PM
[2017-08-30] MEDS ORDERED: DEXMEDETOMIDINE INJ 1,000 MCG in SODIUM CHLOR 0.9% 250 ML INJ 240 ML IV SCH (16:45)
[2017-08-30] MEDS: ATORVASTATIN 40 MG TAB PO SCH (20:42)
[2017-08-31] VITALS (18 sets, daily range): BP systolic 105–153; BP diastolic 62–92; PULSE 59–81; RESP 15–18; TEMP 98–102.7; O2SAT 97–100
[2017-08-31] MEDS: PROPOFOL 1000 MG/100 ML INJ 100 ML IV PRN ×4 (00:58→19:35)
[2017-08-31] MEDS: oxyCODONE HCL ORAL CONC 5 MG/0.25 ML SYRINGE PO SCH ×6 (01:00→20:32)
[2017-08-31] MEDS: RESP: ALBUTEROL 2.5 MG/IPRATROPIUM 0.5 MG NEB (PRN) INH ×5 (03:03→23:53)
[2017-08-31] MEDS: CHLORHEXIDINE GLUCONATE 2 % 1 PACK (2 CLOTHS) TOP SCH (04:00)
[2017-08-31] MEDS: ACETAMINOPHEN 325 MG TAB PO PRN (04:17)
--- NOTE | 2017-08-31 05:36 | RADRPT ---
EXAM DATE/TIME: 08/31/2017 05:21 [facility] COMPARISON: 08/29/2017. INDICATIONS : Short of breath. Pneumonia. MEDICAL HISTORY : Stroke. Hypertension. SURGICAL HISTORY : None. ENCOUNTER: Subsequent ACUITY: 3 days PAIN SCORE: Non-responsive. LOCATION: Bilateral chest FINDINGS: Patchy air space consolidation again seen of both lungs, predominantly of the left base. A small left pleural effusion is likely. No pneumothorax seen. Mild cardiomegaly is stable. The endotracheal tube tip is only about 1 cm above the connie now. Nasogastric tube is coiled in the stomach. CONCLUSION: 1. No significant change left base consolidation and small effusion. 2. Endotracheal tube tip is close to the connie. Ignacio Lares MD on August 31, 2017 at 5:34 Board Certified Radiologist. This report was verified electronically.
[2017-08-31] MEDS: PIPERACIL-TAZO 4.5 GM PREMIX 100 ML IV SCH ×3 (06:00→18:00)
[2017-08-31] MEDS: cloNIDine HCL 0.1 MG TAB PO SCH ×3 (06:00→23:01)
[2017-08-31] MEDS: INSULIN NovoLIN REGULAR SUPPLEMENTAL SCALE SQ SCH ×4 (06:00→17:59)
[2017-08-31] MEDS: SODIUM CHLOR 0.9% 1000 ML INJ 1,000 ML IV SCH (06:03)
[2017-08-31] MEDS ORDERED: PROPRANOLOL HCL 10 MG TAB PO ONE (06:15)
[2017-08-31] MEDS ORDERED: MORPHINE SULFATE 8 MG/ML INJ IV PUSH ONE (06:30)
[2017-08-31 07:09] LABS: AMORPHOUS SEDIMENT, URINE MOD; BACTERIA, URINE OCC /hpf; BILIRUBIN, URINE NEG (NEG); BLOOD, URINE MOD (NEG); GLUCOSE,URINE NEG (NEG); HYALINE CAST, URINE 1 /lpf (RARE); KETONE, URINE NEG (NEG); MUCUS URINE FEW /lpf (OCC); NITRITE,URINE NEG (NEG); SQUAMOUS EPITHELIAL CELL URINE <1 /hpf (0-5); URINE COLOR YELLOW (YELLW/STRAW); URINE LEUKOCYTE ESTERASE SMALL (NEG)
[2017-08-31] MEDS: CHLORHEXIDINE 0.12% (ORAL KIT) 15 ML CUP MT SCH ×2 (08:00→20:32)
[2017-08-31] MEDS: LISINOPRIL 20 MG TAB PO SCH (09:14)
[2017-08-31] MEDS: METOPROLOL TARTRATE 100 MG TAB PO SCH (09:15)
[2017-08-31] MEDS: DOCUSATE SODIUM 50 MG/SENNA 8.6 MG TAB PO SCH ×3 (09:15→20:31)
[2017-08-31] MEDS: HYDROCHLOROTHIAZIDE 25 MG TAB PO SCH (09:15)
[2017-08-31] MEDS: PANTOPRAZOLE SODIUM 40 MG VIAL IV PUSH SCH (09:16)
[2017-08-31 11:30] LABS: HEMATOCRIT 35.9 % (39.0-51.0); HEMOGLOBIN 11.2 GM/DL (13.0-17.0); MEAN CELL VOLUME 83.8 FL (80.0-100.0); MEAN CORPUSCULAR HEMOGLOBIN 26.2 PG (27.0-34.0); MEAN CORPUSCULAR HGB CONC 31.3 % (32.0-36.0); MEAN PLATELET VOLUME 10.3 FL (7.0-11.0); PLATELET COUNT 199 TH/MM3 (150-450); RED BLOOD COUNT 4.29 MIL/MM3 (4.50-5.90); RED CELL DISTRIBUTION WIDTH 15.2 % (11.6-17.2); WHITE BLOOD COUNT 12.4 TH/MM3 (4.0-11.0)
[2017-08-31] MEDS: LACTULOSE SYRUP 20 GM/30 ML CUP PO SCH ×2 (11:57→20:31)
[2017-08-31] MEDS: PROPRANOLOL HCL 10 MG TAB PO SCH ×2 (11:58→18:00)
[2017-08-31] MEDS: BISACODYL 10 MG SUPP RECTAL SCH (11:58)
[2017-08-31] MEDS: QUEtiapine FUMARATE 100 MG TAB PO SCH ×3 (11:58→23:01)
[2017-08-31] MEDS: POLYETHYLENE GLYCOL 17 GM PKG PO SCH ×2 (11:58→20:31)
[2017-08-31] MEDS: MAGNESIUM SULFATE 1 GM PREMIX 100 ML IV SCH ×2 (11:59→12:22)
[2017-08-31] MEDS ORDERED: MAGNESIUM CITRATE SOLN 300 ML BTL PO ONE (12:00)
[2017-08-31 12:10] LABS: BICARBONATE 23.5 MEQ/L (21.0-32.0); CALCIUM 8.2 MG/DL (8.5-10.1); CREATININE 3.14 MG/DL (0.60-1.30); MAGNESIUM 3.6 MG/DL (1.5-2.5); PHOSPHORUS 6.5 MG/DL (2.5-4.9)
--- NOTE | 2017-08-31 12:58 | RADRPT ---
EXAM DATE/TIME: 08/31/2017 12:00 [facility] COMPARISON: CHEST SINGLE AP, August 31, 2017, 5:21. INDICATIONS : Congestion and shortness of breath. MEDICAL HISTORY : Stroke. Hypertension. SURGICAL HISTORY : None. ENCOUNTER: Subsequent ACUITY: 2 days PAIN SCORE: Non-responsive. LOCATION: Bilateral chest FINDINGS: Single portable frontal view the chest shows an endotracheal tube with the tip 2 cm from the connie. Heart is mildly enlarged. No pulmonary vascular engorgement observed. No infiltrate or effusion. Bony structures are unremarkable. Nasogastric tube coiled in the body of the stomach. CONCLUSION: 1. Cardiomegaly. 2. Clear lungs. David Castaneda Jr., MD on August 31, 2017 at 12:55 Board Certified Radiologist. This report was verified electronically.
[2017-08-31] MEDS: fentaNYL DRIP 250 ML IV PRN (13:06)
[2017-08-31] MEDS ORDERED: ROCURONIUM INJ 50 MG/5 ML VIAL ONE (14:36)
--- NOTE | 2017-08-31 15:52 | PD.PROCEDR ---
Procedure Note Procedure Procedure: Therapeutic Fiberoptic Bronchoscopy Diagnosis: Hemorrhagic stroke Indications: Acute respiratory failure with worsening of peak pressures and x- ray showing left lower lobe atelectatic collapse. Consent: Obtained Anesthesia: Propofol, fentanyl Description of the Procedure: The patient was sedated and mechanically ventilated. The patient was placed on 100% FIO2 and a volume control mode of ventilation. The fiberoptic bronchoscopy was inserted via 8.0 oral endotracheal tube. The trachea, right and left mainstem bronchi, and sub- segmental bronchi were evaluated. The endobronchial anatomy was normal. Findings: Large obstructing mucous plug in the left mainstem bronchus which was suctioned. Additional thick tenacious mucus in the left lower lobe and small amount in the right lower lobe. This was aggressively suctioned. BAL samples: Samples were not sent because tracheal aspirate was already in lab The patient tolerated the procedure well with no hemodynamic instability or hypoxia. There were no immediate complications noted. At the conclusion of the procedure, the patient was placed back on their pre-procedure ventilatory settings. There was minimal EBL. I personally performed the procedure. Fan Smith MD Aug 31, 2017 15:52
[2017-08-31] MEDS ORDERED: ROCURONIUM INJ 50 MG/5 ML VIAL IV ONE (16:00)
[2017-08-31] MEDS: CALCIUM ACETATE 667 MG CAP PO SCH (18:00)
--- NOTE | 2017-08-31 18:12 | RADRPT ---
EXAM DATE/TIME: 08/31/2017 17:42 [facility] COMPARISON: US KIDNEY/RENAL/BLADDER, January 09, 2017, 8:01. INDICATIONS : Increased BUN/Creatinine. MEDICAL HISTORY : Hypertension. Gastroesophageal reflux disease. Cerebrovascular accident. Migraines. SURGICAL HISTORY : None. ENCOUNTER: Initial ACUITY: 1 day PAIN SCORE: 10/10 LOCATION: Bilateral flank MEASUREMENTS: RIGHT KIDNEY: 12.0 x 6.2 x 6.2 cm LEFT KIDNEY: 11.7 x 7.0 x 5.5 cm FINDINGS: RIGHT KIDNEY: Renal cortex is normal thickness. No evidence of hydronephrosis or mass. There is a focal 1.0 x 0.3 cm echogenic area in the upper pole of the right kidney centered in the parenchyma suggesting a foca l calcification. No echogenic or shadowing are seen in the region of the renal sinus. LEFT KIDNEY: Renal cortex is normal in thickness and echotexture. No hydronephrosis, stone, or mass. BLADDER: Coleman catheter. CONCLUSION: 1. No evidence of hydronephrosis on either side. 2. Solitary linear echogenic focus in the upper pole parenchyma of the right kidney has similar featu res to prior examination in January 2017 and possibly represents a calcification. David Snell MD on August 31, 2017 at 18:08 Board Certified Radiologist. This report was verified electronically.
[2017-08-31 18:21] LABS: CREATININE, RANDOM URINE 163.5 MG/DL
--- NOTE | 2017-08-31 19:11 | EKG ---
Date Performed: 08/28/2017 Time Performed: 23:44:28 PTAGE: 46 years EKG: SINUS TACHYCARDIA RIGHT ATRIAL ENLARGEMENT LEFT ATRIAL ENLARGEMENT LEFT VENTRICULAR HYPERTR OPHY AND ST-T CHANGE Since previous tracing, no significant change noted ABNORMAL ECG PREVIOUS TRACING : 01/08/2017 13.44 DOCTOR: Carlos Eduardo Edmondson Interpretating Date/Time 08/31/2017 19:09:14
--- NOTE | 2017-08-31 19:19 | ECHRPT ---
Indication: CVA/TIA CONCLUSIONS The left ventricular systolic function is mildly reduced with an estimated ejection fraction in the range of 45- 50%. Mildly dilated left ventricle. Mild concentric left ventricular hypertrophy. Mild mitral valve regurgitation. There is mild tricuspid valve regurgitation. Mild pulmonary valve regurgitation. BP: 135 / 98 HR: 81 Rhythm: Sinus MEASUREMENTS (Male / Female) Normal Values Technical Quality:Fair 2D ECHO LV Diastolic Diameter PLAX 6.1 cm 4.2 - 5.9 / 3.9 - 5.3 cm LV Systolic Diameter PLAX 4.9 cm IVS Diastolic Thickness 1.1 cm 0.6 - 1.0 / 0.6 - 0.9 cm LVPW Diastolic Thickness 1.1 cm 0.6 - 1.0 / 0.6 - 0.9 cm LV Relative Wall Thickness 0.3 RV Internal Dim ED PLAX 3.7 cm LVOT Diameter 2.3 cm Aortic Root Diameter 3.2 cm LA Systolic Diameter LX 3.9 cm 3.0 - 4.0 / 2.7 - 3.8 cm M-MODE AV Cusp Separation MM 2.2 cm DOPPLER AV Peak Velocity 106.0 cm/s AV Peak Gradient 4.5 mmHg AV Mean Gradient 2.0 mmHg AV Velocity Time Integral 18.9 cm LVOT Peak Velocity 54.1 cm/s LVOT Peak Gradient 1.2 mmHg LVOT Velocity Time Integral 7.6 cm LVOT Cardiac Index 1034.6 cm/minm AV Area Cont Eq vti 1.7 cm AV Area Cont Eq pk 2.1 cm Mitral E Point Velocity 98.7 cm/s Mitral A Point Velocity 41.5 cm/s Mitral E to A Ratio 2.4 LV E' Lateral Velocity 3.9 cm/s Mitral E to LV E' Lateral Ratio 25.3 LV E' Septal Velocity 9.5 cm/s Mitral E to LV E' Septal Ratio 10.4 TR Peak Velocity 369.0 cm/s TR Peak Gradient 54.5 mmHg PV Peak Velocity 63.2 cm/s PV Peak Gradient 1.6 mmHg FINDINGS LEFT VENTRICLE Mildly dilated left ventricle. Mild concentric left ventricular hypertrophy. The left ventricular systolic function is mildly reduced with an estimated ejection fraction in the range of 45- 50%. RIGHT VENTRICLE Normal right ventricular size and systolic function. LEFT ATRIUM The left atrial size is [id number]-[id number] dilated. RIGHT ATRIUM The right atrial size is normal. ATRIAL SEPTUM Normal atrial septal thickness. AORTA The aortic root and proximal ascending aorta are normal in size on limited imaging. MITRAL VALVE Structurally normal mitral valve. No mitral valve stenosis. Mild mitral valve regurgitation. AORTIC VALVE Trileaflet aortic valve. No aortic valve stenosis. Trace aortic valve regurgitation. TRICUSPID VALVE Structurally normal tricuspid valve. There is mild tricuspid valve regurgitation. The estimated pulmonary arterial pressure is 29 mmHg. PULMONARY VALVE The pulmonary valve is not well visualized. Mild pulmonary valve regurgitation. VESSELS The inferior vena cava is normal in size. PERICARDIUM No pericardial effusion. Jose Dent DO (Electronically Signed) Final Date:31 August 2017 19:18
[2017-08-31] MEDS: ATORVASTATIN 40 MG TAB PO SCH (20:31)
[2017-08-31] MEDS ORDERED: LACTATED RINGER'S 1000 ML INJ 1,000 ML IV ONE (20:45)
--- NOTE | 2017-08-31 20:50 | HHI.CCPN ---
Subjective Remarks/Hospital Course Hospital Course: 46 y/o man with longstanding hypertension and previous CVA presents obtunded with new neurological symptoms noticed prior to arrival. Timeline unclear. Required intubation in ED for airway protection. CT head shows left thalamic bleed and shift away from bleed. Toxicology screen pending. Subjective: 08/30: encephalopathy persists. bp under better control, still on cardene. on sedation vacation, moves left side spontaneously but nothing on right. 08/31: overnight, severely agitated, requiring high dose sedation. also, lambert obstructed, new lambert placed with improvement in obstruction. this morning, RAFAELA with Cr up to 3. urine Na < 10, suggestive of pre-renal etiology. continued ivf. high peak pressures on vent. suction lavage with thick tenacious secretions. bronch with left lobe mucous plugging. bronchospasm a significant problem requiring iv magnesium and duonebs. finally attempted small paralytic dose with improvement in abdominal breathing and fighting ventilator. Objective Vital Signs Date Time Temp Pulse Resp B/P (MAP) Pulse Ox O2 Delivery O2 Flow Rate FiO2 08/31/17 19:54 100 40 08/31/17 18:00 64 08/31/17 16:00 98.1 15 105/62 (76) 08/31/17 07:00 Mechanical Ventilator 08/28/17 23:57 2.00 Intake and Output 08/31/17 08/31/17 09/01/17 08:00 16:00 00:00 Intake Total 1300 ml 1095 ml Output Total 800 ml 275 ml Balance 500 ml 1095 ml -275 ml Result Diagram: 08/31/17 1115 08/31/17 1115 Objective Remarks Gen: Obtunded. Head: Atraumatic. Conjunctivae injected. Neck: Supple, orally intubated. Lungs: Clear, elevated peak pressures into the 40s. improved with neuromuscular blockade. significant expiratory wheezes present. Heart: Tachycardia, RR. Abdomen: Mildly distended, No guarding. Extremities: Warm, well perfused. Neuro: RASS -4. moves LUE/LLE spontaneously, no movement on right. does not follow commands. ? slight w/d to pain left side. pupils equal, round, reactive. A/P Problem List: (1) Intracranial hemorrhage ICD Code: I62.9 - Nontraumatic intracranial hemorrhage, unspecified Status: Acute (2) Hemorrhagic stroke ICD Code: I61.9 - Nontraumatic intracerebral hemorrhage, unspecified Status: Acute (3) Hypertensive emergency ICD Code: I10 - Hypertensive emergency Status: Acute Assessment and Plan Assessment: 46yM with left thalamic hypertensive hemorrhagic IPH, ICH score 2. remains off pathway, poor neurologic exam. continue carvedilol and tight bp control. frequent neuro checks. off pathway. cannot SBT or extubate while encephalopathic. agitated delirium continues to be a problem today as well as hypoxic respiratory failure and high peak pressures which appear to be related to ventilator dyssynchrony. Active Problems: Acute encephalopathy Left Thalamic Hemorrhage Intracerebral Hemorrhage, ICH score 2 Acute hypoxic and Hypercarbic Respiratory failure Hypertensive Emergency Ventilatory Dyssynchrony Agitated Delirium Acute kidney injury Plan: - seroquel 100mg po q8hr for agitation - haldol 5mg iv q4h prn for breakthrough agitation - oxycodone 10mg po q4h - fentanyl - propofol - may require prn boluses of neuromuscular blockade if we cannot get control of vent synchrony. do not want to place on paralytic drip: would prefer to have a neurologic exam. - frequent neuro checks - goal SBP < 140 - cardene/labetalol/hydralazine prn - Renal ultrasound - urine eos, lytes - 1L LR bolus - TF at goal - bowel regimen - SCDs. hold pharmacologic DVT prophylaxis given ICH. - appreciate nsgy involvement. - Protonix. Overall impression: Critically ill with hypertensive emergency and thalamic bleed. worsening respiratory status, agitated delirium, RAFAELA. organs worse today than yesterday. critically ill. Critical Care 66 mins aside from procedures. Fan Smith MD Aug 31, 2017 20:50
[2017-09-01] VITALS (17 sets, daily range): BP systolic 109–150; BP diastolic 58–79; PULSE 66–84; RESP 18; TEMP 98.6–100.6; O2SAT 92–100
[2017-09-01] MEDS: PIPERACIL-TAZO 4.5 GM PREMIX 100 ML IV SCH ×3 (00:15→13:02)
[2017-09-01] MEDS: PROPRANOLOL HCL 10 MG TAB PO SCH ×4 (00:15→17:35)
[2017-09-01] MEDS: INSULIN NovoLIN REGULAR SUPPLEMENTAL SCALE SQ SCH ×4 (00:16→18:00)
[2017-09-01] MEDS: fentaNYL DRIP 250 ML IV PRN ×2 (00:27→14:53)
[2017-09-01] MEDS: PROPOFOL 1000 MG/100 ML INJ 100 ML IV PRN ×4 (00:27→19:05)
[2017-09-01] MEDS: oxyCODONE HCL ORAL CONC 5 MG/0.25 ML SYRINGE PO SCH ×6 (01:06→21:02)
[2017-09-01] MEDS: LABETALOL HCL 100 MG/20 ML VIAL IV PUSH PRN (01:08)
[2017-09-01] MEDS: CHLORHEXIDINE GLUCONATE 2 % 1 PACK (2 CLOTHS) TOP SCH (04:00)
[2017-09-01] MEDS: QUEtiapine FUMARATE 100 MG TAB PO SCH ×3 (05:02→21:02)
[2017-09-01] MEDS: cloNIDine HCL 0.1 MG TAB PO SCH ×3 (05:02→21:02)
[2017-09-01 05:13] LABS: HEMATOCRIT 33.4 % (39.0-51.0); MEAN CELL VOLUME 82.4 FL (80.0-100.0); MEAN CORPUSCULAR HEMOGLOBIN 27.1 PG (27.0-34.0); MEAN CORPUSCULAR HGB CONC 32.8 % (32.0-36.0); MEAN PLATELET VOLUME 9.8 FL (7.0-11.0); PLATELET COUNT 177 TH/MM3 (150-450); RED BLOOD COUNT 4.05 MIL/MM3 (4.50-5.90); WHITE BLOOD COUNT 8.9 TH/MM3 (4.0-11.0)
[2017-09-01 05:37] LABS: BICARBONATE 24.9 MEQ/L (21.0-32.0); CALCIUM 8.6 MG/DL (8.5-10.1); CREATININE 3.93 MG/DL (0.60-1.30)
[2017-09-01] MEDS: CHLORHEXIDINE 0.12% (ORAL KIT) 15 ML CUP MT SCH ×2 (08:37→21:01)
[2017-09-01] MEDS: PANTOPRAZOLE SODIUM 40 MG VIAL IV PUSH SCH (08:39)
[2017-09-01] MEDS: LACTULOSE SYRUP 20 GM/30 ML CUP PO SCH ×2 (08:42→21:00)
[2017-09-01] MEDS: HYDROCHLOROTHIAZIDE 25 MG TAB PO SCH (08:42)
[2017-09-01] MEDS: POLYETHYLENE GLYCOL 17 GM PKG PO SCH ×2 (08:42→21:00)
[2017-09-01] MEDS: DOCUSATE SODIUM 50 MG/SENNA 8.6 MG TAB PO SCH ×2 (08:43→21:00)
[2017-09-01] MEDS: CALCIUM ACETATE 667 MG CAP PO SCH ×3 (08:43→17:35)
[2017-09-01] MEDS: LISINOPRIL 20 MG TAB PO SCH (08:47)
[2017-09-01] MEDS: BISACODYL 10 MG SUPP RECTAL SCH (08:49)
[2017-09-01] MEDS: hydrALAZINE HCL 20 MG/ML VIAL IV PUSH PRN (09:35)
--- NOTE | 2017-09-01 13:52 | PD.CONS ---
Consult Service Palliative Care Consult Requested By Dr. Smith. Primary Care Physician Unknown Reason for Consultation a. To assist with evaluation and management of symptoms including: Pain and dyspnea. b. To assist medical decision maker(s) with: better understanding of current medical conditions; weighing benefits/burdens of medical treatment options; making medical treatment decisions. . HPI History of Present Illness Mr. Matos is a 46-year-old male with a medical history significant for TIA, hypertension and migraines. Patient presented to ED via EMS on 08/28/17 as stroke alert. Patient was last seen with normal neurological function approximately 3-1/2 hours prior to ED arrival. Upon ED arrival, GCS of 7, blood pressure 238/153. He subsequently had a vomiting episode requiring emergent intubation and mechanical ventilation. Head CT revealing acute hemorrhaic stroke in the right thalamus with extension of the lateral third ventricles with a shift onto the right side of 6 mm. chest x-ray revealing left lower lobe consolidation and patchy infiltrates in the central right lung. Head CTA with no evidence of vessel truncation or aneurysm. Neck CTA negative for carotid CTA. Toxicology screen negative. Neurosurgery, Dr. Tinajero consulted for further evaluation. Medical management recommended. Repeat head CT revealing no changes in hemorrhaic stroke, 6 mm rightward midline shift. EEG 08/30/17 revealing encephalopathic process. No seizure noted. Patient underwent therapeutic bronchoscopy on 08/31/17 secondary to acute respiratory failure with worsening of pressures and x-ray showing left lower lobe atelectatic collapse, no immediate complications documented. Patient with intermittent periods of agitation requiring high doses of sedation. Worsening renal function, BUN/creatinine 42/3.93 from 35/ 3.14 yesterday. Patient seen in surgical ICU. Patient remains intubated on mechanical ventilation, unresponsive to verbal or tactile stimuli. Sedated on fentanyl and propofol. Intermittent fevers, max temp today 100.6, cooling blanket in place. Remains on full vent support, FiO2 40% with oxygen saturation in the high 90s. Stable hemodynamically. Most recent chest x-ray revealing no significant changes to left base consolidation and small effusion. Pending blood, urine and sputum cultures. Reviewed past medical history. Recent acute hospitalization from 01/06/17 2 to secondary to pneumonia. Echocardiogram revealing EF of 30-35% with diffuse hypokinesi and mild mitral regurgitation. Prior ED visit on 04/21/17 secondary to hypertensive urgency. Bedside conversation with patient's oldest daughter Shannan Matos. Obtained patient's past medical history and psychosocial history. Reviewed events leading to these hospitalization, clinical course and current medical management. Medical update provided. Daughter Shannan with a very good understanding of patient's clinical condition, asking appropriate questions. She reports that her of 3 patient's adult children have been updated on patient' s condition. Goals of therapy are aggressive to include full code. Reviewed likely trajectory of illness to include prolonged hospitalization, likelihood of trach, PEG and rehabilitation. Reviewed that patient is critically ill and remains a high risk for further complications, continue decline and . Daughter Shnanan verbalized understanding. Daughter appreciative of my visit today. Receptive to palliative care follow-ups. . Function/Cognitive Trajectory Patient residing with friends prior to this acute hospitalization. Independent with all ADLs. No functional or cognitive deficit reported. . Review of Systems ROS Limitations: Clinical Condition, Intubated, Unresponsive Constitutional: COMPLAINS OF: Fever, DENIES: Weight loss, Change in appetite, Night Sweats Endocrine: DENIES: Heat/cold intolerance Eyes: DENIES: Eye inflammation Ears, nose, mouth, throat: DENIES: Hearing loss, Oral lesions, Running Nose, Epistaxis Respiratory: DENIES: Apneas, Hemoptysis Cardiovascular: COMPLAINS OF: Lower Extremity Edema Gastrointestinal: DENIES: Diarrhea, Nausea, Vomiting Genitourinary: DENIES: Penile Discharge Musculoskeletal: DENIES: Decreased range of motion Integumentary: DENIES: Abnormal pigmentation Hematologic/Lymphatics: DENIES: Bruising Immunologic/Allergic: DENIES: Eczema Neurologic: DENIES: Abnormal gait Psychiatric: DENIES: Depression, Hallucinations Other ROS: ROS limited secondary to patient's clinical condition, intubated on mechanical ventilation. ROS obtained from records, patient's family and clinical observation. Past Family Social History Coded Allergies: No Known Allergies (Verified , 01/06/17) Past Medical History Reported TIA in 2013 and 2014. Hypertension, uncontrolled Migraines Dyslipidemia Obesity . Past Surgical History None. . Reported Medications Amlodipine (Amlodipine Besylate) 10 Mg Tab 10 Mg PO DAILY Lipitor (Atorvastatin Calcium) 40 Mg Tab 40 Mg PO HS Hydrochlorothiazide 25 Mg Tab 25 Mg PO DAILY Lisinopril 40 Mg Tab 40 Mg PO DAILY Aspirin 81 Mg Chew 81 Mg CHEW DAILY Levaquin (Levofloxacin) 500 Mg Tab 500 Mg PO DAILY Metoprolol Tartrate 100 Mg Tab 100 Mg PO BID Clonidine (Clonidine HCl) 0.1 Mg Tab 0.1 Mg PO HS . Current Medications Medications (Trade) Dose Ordered Sig/Hermann Route Start Time Stop Time Status Last Admin (NS Flush) 2 ml UNSCH PRN IVF 08/29/17 00:00 (Peridex 0.12% Liq) 15 ml BID@08,20 MT 08/29/17 08:00 09/01/17 08:37 Nicardipine HCl 25 mg/Sodium Chloride 250 ml @ 50 mls/hr TITRATE PRN IV 08/29/17 00:45 08/30/17 20:00 (Trandate Inj) 10 mg Q20M PRN IV PUSH 08/29/17 00:45 09/01/17 01:08 (Norvasc) 10 mg DAILY PO 08/29/17 09:00 09/01/17 08:42 (Prinivil) 40 mg DAILY PO 08/29/17 09:00 09/01/17 08:47 (Tylenol) 650 mg Q6H PRN PO 08/29/17 00:45 08/31/17 04:17 (Morphine Inj) 2 mg Q2H PRN IV PUSH 08/29/17 00:45 (Protonix Inj) 40 mg DAILY IV PUSH 08/29/17 09:00 09/01/17 08:39 (Zofran Inj) 4 mg Q6H PRN IV PUSH 08/29/17 00:45 (Duoneb Neb) 1 ampule Q4HR NEB PRN INH 08/29/17 00:45 08/31/17 23:53 Miscellaneous Information 1 Q361D XX 08/29/17 00:45 08/29/17 01:00 (Chlorhexidine 2% Cloth) 3 pack Taper DAILY@04 TOP 08/29/17 04:00 08/25/18 03:59 (Chlorhexidine 2% Cloth) 3 pack UNSCH PRN TOP 08/29/17 00:45 Fentanyl Citrate 250 ml @ 5 mls/hr TITRATE PRN IV 08/29/17 00:45 09/01/17 00:27 (Lipitor) 40 mg HS PO 08/29/17 21:00 08/31/17 20:31 (Hydrodiuril) 25 mg DAILY PO 08/29/17 09:00 09/01/17 08:42 (Lopressor) 100 mg BID PO 08/29/17 09:00 Future Hold 08/31/17 09:15 (Catapres) 0.1 mg Q8HR PO 08/29/17 06:00 09/01/17 13:02 (D50w (Vial) Inj) 25 ml UNSCH PRN IV PUSH 08/30/17 08:15 (NovoLIN R SUPPLEMENTAL SCALE) 1 Q6HR SQ 08/30/17 12:00 09/01/17 13:00 (Apresoline Inj) 10 mg Q30M PRN IV PUSH 08/30/17 08:15 09/01/17 09:35 Propofol 100 ml @ 14.352 mls/ hr TITRATE PRN IV 08/31/17 00:30 09/01/17 06:56 Piperacillin Sod/ Tazobactam Sod 100 ml @ 200 mls/hr Q6HR IV 08/31/17 06:00 09/01/17 13:02 (Roxicodone Intensol Liq) 10 mg Q4H PO 08/31/17 13:00 09/01/17 13:03 (Inderal) 10 mg Q6HR PO 08/31/17 12:00 09/01/17 13:03 (SEROquel) 100 mg Q8HR PO 08/31/17 11:00 09/01/17 13:03 (Haldol Inj) 5 mg Q4H PRN IV 08/31/17 11:00 (Dulcolax Supp) 10 mg DAILY RECTAL 08/31/17 12:00 08/31/17 11:58 (Miralax) 17 gm BID PO 08/31/17 12:00 08/31/17 20:31 (Lactulose Liq) 30 ml BID PO 08/31/17 12:00 08/31/17 20:31 (Melina-Colace) 1 tab BID PO 08/31/17 12:00 08/31/17 20:31 (Phoslo) 667 mg TID PO 08/31/17 18:00 09/01/17 13:02 Family History HTN - parents and brother DM - older brother Patient has 4 children who are alive and well. . Substance Use Tobacco: Never smoked. Alcohol: Socially. Prescription med abuse: None. Illicits: None. . Psychosocial History Patient originally from [facility]. He is the youngest of 4 siblings. High school education. Worked in his [employer] business [employer]. 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 Patient is , has 4 children. No service. . Spiritual/Cultural Factors Pentecostalism lenny. . Living Will: Never completed Health Care Surrogate: Never completed Durable Power of Machinist Wood: Never completed Health Care Surrogate(s): No advance directives completed as per patient's family. Patient is . As per [place] law, healthcare proxy decision making falls to the majority of patient's adult children for which he has 3 (4th child is 4 years old). Daughter Shannan, daughter Nichole and son Hadley Maddox wish to participate. . Family/friends goals: Full code. Progressive management. . Ethical and Legal Issues Patient unable to participate in medical decision-making secondary to clinical condition. 3 adult children serving as healthcare proxy decision makers. . Physical Exam Vital Signs Date Time Temp Pulse Resp B/P (MAP) Pulse Ox O2 Delivery O2 Flow Rate FiO2 09/01/17 11:33 94 40 09/01/17 09:23 98 40 09/01/17 07:00 99 Mechanical Ventilator 40 09/01/17 06:00 76 09/01/17 04:00 76 09/01/17 04:00 100.6 76 18 126/74 (91) 99 09/01/17 04:00 40 09/01/17 03:28 99 40 09/01/17 02:00 74 09/01/17 00:00 40 09/01/17 00:00 78 09/01/17 00:00 99.9 78 18 109/64 (79) 98 08/31/17 23:50 98 40 08/31/17 22:00 76 08/31/17 20:00 70 08/31/17 20:00 99.7 73 18 130/69 (89) 100 08/31/17 20:00 40 08/31/17 19:54 100 40 08/31/17 19:00 100 Mechanical Ventilator 40 08/31/17 18:00 64 08/31/17 16:00 70 08/31/17 16:00 98.1 69 15 105/62 (76) 100 08/31/17 16:00 40 08/31/17 14:52 100 40 08/31/17 14:15 100 100 Exam CONSTITUTIONAL/GENERAL: This is an obese patient intubated on mechanical ventilation. TUBES/LINES/DRAINS: ETT, OG, SCDs, Coleman catheter, PIV's. SKIN: No jaundice, rashes, or lesions. No wounds seen anteriorly. Skin temperature appropriate. Not diaphoretic. HEAD: Atraumatic. Normocephalic. EYES: Pupils equal and round and reactive. No scleral icterus. No injection or drainage. ENT: Unable to evaluate hearing secondary to clinical condition. Nose without bleeding or purulent drainage. Moist oral mucosa. NECK: Trachea midline. Supple. CARDIOVASCULAR: Regular rate and rhythm without murmurs, gallops, or rubs. Peripheral pulses symmetric. RESPIRATORY/CHEST: Symmetric, unlabored respirations. Mild inspiratory wheezes bilaterally. Intubated on mechanical ventilation. GASTROINTESTINAL: Abdomen obese, large, round, soft. Unable to appreciate hepatomegaly secondary to body habitus. Bowel sounds present. GENITOURINARY: Without palpable bladder distension. Coleman catheter in place. MUSCULOSKELETAL: Extremities without clubbing, cyanosis, or edema. No mottling or clubbing. NEUROLOGICAL: Sedated. Unresponsive to verbal or tactile stimuli. PSYCHIATRIC: Unable to evaluate secondary to clinical condition. Appears calm. . Diagnostic Tests Laboratory Laboratory Tests Test 08/30/17 00:30 08/30/17 04:35 08/31/17 05:30 08/31/17 06:25 Potassium Level 3.2 MEQ/L (3.5-5.1) 3.3 MEQ/L (3.5-5.1) White Blood Count 9.9 TH/MM3 (4.0-11.0) Red Blood Count 4.46 MIL/MM3 (4.50-5.90) Hemoglobin 11.9 GM/DL (13.0-17.0) Hematocrit 36.5 % (39.0-51.0) Mean Corpuscular Volume 81.7 FL (80.0-100.0) Mean Corpuscular Hemoglobin 26.6 PG (27.0-34.0) Mean Corpuscular Hemoglobin Concent 32.5 % (32.0-36.0) Red Cell Distribution Width 15.2 % (11.6-17.2) Platelet Count 203 TH/MM3 (150-450) Mean Platelet Volume 9.9 FL (7.0-11.0) Neutrophils (%) (Auto) 81.4 % (16.0-70.0) Lymphocytes (%) (Auto) 10.8 % (9.0-44.0) Monocytes (%) (Auto) 7.3 % (0.0-8.0) Eosinophils (%) (Auto) 0.2 % (0.0-4.0) Basophils (%) (Auto) 0.3 % (0.0-2.0) Neutrophils # (Auto) 8.1 TH/MM3 (1.8-7.7) Lymphocytes # (Auto) 1.1 TH/MM3 (1.0-4.8) Monocytes # (Auto) 0.7 TH/MM3 (0-0.9) Eosinophils # (Auto) 0.0 TH/MM3 (0-0.4) Basophils # (Auto) 0.0 TH/MM3 (0-0.2) CBC Comment DIFF FINAL Differential Comment Blood Urea Nitrogen 19 MG/DL (7-18) Creatinine 1.85 MG/DL (0.60-1.30) Random Glucose 204 MG/DL (74-106) Calcium Level 7.8 MG/DL (8.5-10.1) Phosphorus Level 3.5 MG/DL (2.5-4.9) Magnesium Level 2.1 MG/DL (1.5-2.5) Sodium Level 142 MEQ/L (136-145) Chloride Level 107 MEQ/L (98-107) Carbon Dioxide Level 26.3 MEQ/L (21.0-32.0) Anion Gap 9 MEQ/L (5-15) Estimat Glomerular Filtration Rate 48 ML/MIN (>89) Triglycerides Level 423 MG/DL (42-150) Cholesterol Level 222 MG/DL (120-200) LDL Cholesterol MG/DL (0-99) HDL Cholesterol 26.9 MG/DL (40.0-60.0) Cholesterol/HDL Ratio 8.25 RATIO Urine Color YELLOW (YELLW/STRAW) Urine Turbidity HAZY (CLEAR) Urine pH 5.0 (5.0-8.5) Urine Specific [place] 1.014 (1.002-1.035) Urine Protein 30 mg/dL (NEG-TRACE) Urine Glucose (UA) NEG mg/dL (NEG) Urine Ketones NEG mg/dL (NEG) Urine Occult Blood MOD (NEG) Urine Nitrite NEG (NEG) Urine Bilirubin NEG (NEG) Urine Urobilinogen LESS THAN 2.0 MG/DL (LESS Urine Leukocyte Esterase SMALL (NEG) Urine RBC 21 /hpf (0-3) Urine WBC 6 /hpf (0-5) Urine Squamous Epithelial Cells <1 /hpf (0-5) Urine Amorphous Sediment MOD Urine Bacteria OCC /hpf (NONE) Urine Hyaline Casts 1 /lpf (RARE) Urine Mucus FEW /lpf (OCC) Microscopic Urinalysis Comment CATH-CULTURE IND Procalcitonin 0.53 ng/mL (0.00-0.08) Test 08/31/17 11:15 08/31/17 17:40 09/01/17 04:50 White Blood Count 12.4 TH/MM3 (4.0-11.0) 8.9 TH/MM3 (4.0-11.0) Red Blood Count 4.29 MIL/MM3 (4.50-5.90) 4.05 MIL/MM3 (4.50-5.90) Hemoglobin 11.2 GM/DL (13.0-17.0) 11.0 GM/DL (13.0-17.0) Hematocrit 35.9 % (39.0-51.0) 33.4 % (39.0-51.0) Mean Corpuscular Volume 83.8 FL (80.0-100.0) 82.4 FL (80.0-100.0) Mean Corpuscular Hemoglobin 26.2 PG (27.0-34.0) 27.1 PG (27.0-34.0) Mean Corpuscular Hemoglobin Concent 31.3 % (32.0-36.0) 32.8 % (32.0-36.0) Red Cell Distribution Width 15.2 % (11.6-17.2) 15.0 % (11.6-17.2) Platelet Count 199 TH/MM3 (150-450) 177 TH/MM3 (150-450) Mean Platelet Volume 10.3 FL (7.0-11.0) 9.8 FL (7.0-11.0) Blood Urea Nitrogen 35 MG/DL (7-18) 42 MG/DL (7-18) Creatinine 3.14 MG/DL (0.60-1.30) 3.93 MG/DL (0.60-1.30) Random Glucose 221 MG/DL (74-106) 155 MG/DL (74-106) Calcium Level 8.2 MG/DL (8.5-10.1) 8.6 MG/DL (8.5-10.1) Phosphorus Level 6.5 MG/DL (2.5-4.9) Magnesium Level 3.6 MG/DL (1.5-2.5) Sodium Level 137 MEQ/L (136-145) 140 MEQ/L (136-145) Potassium Level 4.3 MEQ/L (3.5-5.1) 3.7 MEQ/L (3.5-5.1) Chloride Level 104 MEQ/L (98-107) 106 MEQ/L (98-107) Carbon Dioxide Level 23.5 MEQ/L (21.0-32.0) 24.9 MEQ/L (21.0-32.0) Anion Gap 10 MEQ/L (5-15) 9 MEQ/L (5-15) Estimat Glomerular Filtration Rate 26 ML/MIN (>89) 20 ML/MIN (>89) Urine Eosinophils NONE SEEN /HPF (NONE SEEN) Urine Random Creatinine 163.5 MG/DL Urine Random Sodium 10 MEQ/L Result Diagram: 09/01/170 09/01/17 0450 Microbiology Microbiology Date/Time Source Procedure Growth Status 08/31/17 06:05 Blood Peripheral Aerobic Blood Culture - Preliminary NO GROWTH IN 1 DAY Resulted 08/31/17 06:05 Blood Peripheral Anaerobic Blood Culture - Preliminary NO GROWTH IN 1 DAY Resulted 08/31/17 05:55 Blood Peripheral Aerobic Blood Culture - Preliminary NO GROWTH IN 1 DAY Resulted 08/31/17 05:55 Blood Peripheral Anaerobic Blood Culture - Preliminary NO GROWTH IN 1 DAY Resulted 08/30/17 09:10 Sputum Endotracheal Gram Stain - Final Complete 08/30/17 09:10 Sputum Endotracheal Sputum Culture - Final MODERATE GROWTH NORMAL RESPIRATORY ESTELITA Complete 08/31/17 05:30 Urine Catheterized Urine Urine Culture - Preliminary NO GROWTH IN 24 HOURS. Resulted Imaging Last Impressions Renal Ultrasound 08/31/17 0000 Signed Impressions: Service Date/Time: Thursday, August 31, 2017 17:42 - CONCLUSION: 1. No evidence of hydronephrosis on either side. 2. Solitary linear echogenic focus in the upper pole parenchyma of the right kidney has similar features to prior examination in January 2017 and possibly represents a calcification. David Snell MD Chest X-Ray 08/31/17 0000 Signed Impressions: Service Date/Time: Thursday, August 31, 2017 12:00 - CONCLUSION: 1. Cardiomegaly. 2. Clear lungs. David Castaneda Jr., MD Head CT 08/29/17 0800 Signed Impressions: Service Date/Time: Tuesday, August 29, 2017 08:21 - CONCLUSION: Intraventricular and left thalamic hemorrhage not significantly changed. About 6 mm of rightward midline shift also not significantly changed. Ignacio Lares MD Neck CTA 08/28/177 Signed Impressions: Service Date/Time: Tuesday, August 29, 2017 00:13 - CONCLUSION: Negative carotid CTA. David Snell MD Head CTA [id number] Signed Impressions: Service Date/Time: Tuesday, August 29, 2017 00:13 - CONCLUSION: 1. No evidence of vessel truncation or aneurysm. 2. No abnormal vessels in the region of the large left thalamic hemorrhage. David Snell MD Procedures * 08/28/17 -endotracheal intubation * 08/31/17 -therapeutic bronchoscopy . Patient/Family Conference Present at Family Conference: Daughter Shannan Matos. Family Conference Time (mins): 32 Family Conference Location: Bedside Issues Discussed: * Palliative care role, purpose, approach * Additional medical, psychosocial, and spiritual history * Patients general health, functional status, and cognitive changes in the months leading up to the current hospitalization * Patient/family understanding of the current medical problems -hemorrhaic stroke, respiratory failure. * Patient/family understanding of prognosis * Patients goals of care as best understood from advance directives and/or conversations and/or values * Current medical treatment options and benefits/burdens of those options * Questions answered to the best of my ability * Palliative care contact information provided . Assessment and Plan Disease Oriented Problem List: (1) Hemorrhagic stroke (2) Intracranial hemorrhage (3) Hypertensive emergency (4) Acute kidney injury (5) Acute encephalopathy Symptom Scale: (1) Dyspnea 0-10 Scale: Unable to quantify Comment: Secondary to acute respiratory failure. Remains intubated on mechanical ventilation. (2) Pain 0-10 Scale: Unable to quantify Comment: On fentanyl drip. Pertinent Non-Medical Issues Psychosocial: Patient originally from [facility]. He is the youngest of 4 siblings. High school education. 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 Patient is , has 4 children. No service. Spiritual: Pentecostalism lenny. Legal: No advance directives completed as per patient's family. Ethical issues impacting care: Patient unable to participate in medical decision -making secondary to clinical condition. 3 adult children serving as healthcare proxy decision makers. . Important Contacts Daughter Shannan Matos , Daughter Nichole Matos Son Hadley Matos Ex- (mother of his children) Janet Matos . Patient's father Jem Matos . . Prognosis Mr. Matos is a 46-year-old male with a medical history significant for TIA, uncontrolled hypertension and migraines. Patient presented to ED via EMS on as stroke alert. Patient was last seen with normal neurological function approximately 3-1/2 hours prior to ED arrival. Upon ED arrival, GCS of 7, blood pressure 238/153. He subsequently had a vomiting episode requiring emergent intubation and mechanical ventilation. Head CT revealing acute hemorrhaic stroke in the right thalamus with extension of the lateral third ventricles with a shift onto the right side of 6 mm. chest x-ray revealing left lower lobe consolidation and patchy infiltrates in the central right lung. Clinical course complicated by acute encephalopathy, acute hypoxemic and hypercarbic respiratory failure and acute kidney injury. Patient remains a high risk for further complications, continue decline and . Condition guarded at this time. . Code Status: Full Code Plan * CODE STATUS: Full code. * HEALTHCARE DECISION-MAKING: Patient lacking capacity for medical decision- making secondary to clinical condition , encephalopathy, intubated on mechanical ventilation. Unclear at this time if patient will regain capacity. No advance directives completed as per patient's family. Patient is . As per [place] law, healthcare proxy decision making falls to the majority of patient's adult children for which he has 3 (4th child is 4 years old). Daughters Shannan and Nichole and son Hadley Jr. All wishing to participate. * GOALS OF CARE: Family electing for aggressive medical management to include FULL code. * SYMPTOMS: = Dyspnea, secondary to acute respiratory failure. Patient remains intubated on mechanical ventilation. Has required PRN neuromuscular blockade for vent asynchrony. = Pain: Secondary to intubation, medical interventions, bedbound. Currently on fentanyl drip and oxycodone 10 mg every 4 hours. = Bowels: MiraLAX, lactulose and Melina-Colace [id number]. Dulcolax suppository available. = Restlessness/agitation: Patient has been placed on Seroquel 100 mg every 8 hours and Haldol as needed. * Spiritual services offered and declined by family. Daughter Shannan reports that patient is an active member his Pentecostalism scientology community. * Palliative care contact information has been provided to patient's family. * Palliative care will continue to follow-up for further clarifications of goals of care, provide emotional support as patient's clinical course continues to evolve. . Time Spent Total Floor Time (mins): 71 (Total time to include review and summarization of available medical records to include multiple prior acute hospitalizations and ED visits, physical exam, goals of care conversation with patient's daughter, case discussion with Dr. Smith.) >50% Counseling/Coord of Care: Yes Thank you for the opportunity to participate in the care of Mr. Matos. Attestation To help prompt me to consider important information that might be impacting today's encounter and assessment, information from prior notes written by myself or my colleagues may have been "brought forward" into today's note. My signature on this note, however, is an attestation that I personally performed the exam, history, and/or decision-making noted today, and, unless otherwise indicated, the interactions with patient, family, and staff as well as the review of records all occurred today. I also attest that the listed assessment and stated plan reflect my best clinical judgment today based on the combination of historical information, prior notes, and today's exam/ interactions. When time spent is documented, it refers only to time spent today by the signer, or if indicated, combined time spent today by collaborating physician/nurse practitioner. Soniya Elliott Sep 01, 2017 13:52
--- NOTE | 2017-09-01 16:50 | HHI.CCPN ---
Subjective Remarks/Hospital Course Hospital Course: 46 y/o man with longstanding hypertension and previous CVA presents obtunded with new neurological symptoms noticed prior to arrival. Timeline unclear. Required intubation in ED for airway protection. CT head shows left thalamic bleed and shift away from bleed. Toxicology screen pending. Subjective: 08/30: encephalopathy persists. bp under better control, still on cardene. on sedation vacation, moves left side spontaneously but nothing on right. 08/31: overnight, severely agitated, requiring high dose sedation. also, lambert obstructed, new lambert placed with improvement in obstruction. this morning, RAFAELA with Cr up to 3. urine Na < 10, suggestive of pre-renal etiology. continued ivf. high peak pressures on vent. suction lavage with thick tenacious secretions. bronch with left lobe mucous plugging. bronchospasm a significant problem requiring iv magnesium and duonebs. finally attempted small paralytic dose with improvement in abdominal breathing and fighting ventilator. 09/01: No improvement in neuro exam, intermittent jerking movements noted by the RN no seizure. Creatinine for urine output adequate. I have consulted nephrology. We'll check CT of the head repeat EEG tomorrow a.m. Objective Vital Signs Date Time Temp Pulse Resp B/P (MAP) Pulse Ox O2 Delivery O2 Flow Rate FiO2 09/01/17 16:07 99 40 09/01/17 14:00 78 09/01/17 12:00 99.1 18 150/66 (94) 123/65 (84) 09/01/17 07:00 Mechanical Ventilator 08/28/17 23:57 2.00 Intake and Output 09/01/17 09/01/17 09/02/17 08:00 16:00 00:00 Intake Total 1998 ml 200 ml Output Total 825 ml Balance 1173 ml 200 ml Result Diagram: 09/01/17 0450 09/01/17 0450 Other Results Microbiology Date/Time Source Procedure Growth Status 08/30/17 09:10 Sputum Endotracheal Gram Stain - Final Complete 08/30/17 09:10 Sputum Endotracheal Sputum Culture - Final MODERATE GROWTH NORMAL RESPIRATORY ESTELITA Complete Objective Remarks Gen: Intubated sedated Head: Atraumatic. Conjunctivae injected. Neck: Supple, orally intubated. Lungs: Bilateral scattered wheezing Heart: Tachycardia, RR. Abdomen: Mildly distended, No guarding. Extremities: Warm, well perfused. Neuro: RASS -4 on propofol and fentanyl. moves LUE/LLE spontaneously, no movement on right. does not follow commands. w/d to pain left side on sedation hold. pupils equal, round, reactive. Urinary Catheter: Yes Assessment to: Continue A/P Problem List: (1) Intracranial hemorrhage ICD Code: I62.9 - Nontraumatic intracranial hemorrhage, unspecified Status: Acute (2) Hemorrhagic stroke ICD Code: I61.9 - Nontraumatic intracerebral hemorrhage, unspecified Status: Acute (3) Hypertensive emergency ICD Code: I10 - Hypertensive emergency Status: Acute Assessment and Plan Assessment: 46yM with left thalamic hypertensive hemorrhagic IPH, ICH score 2. remains off pathway, poor neurologic exam. continue carvedilol and tight bp control. frequent neuro checks. cannot SBT or extubate while encephalopathic and hypertensive. CT head and EEG in am Active Problems: Acute encephalopathy Left Thalamic Hemorrhage, with IV extension Intracerebral Hemorrhage, ICH score 2 Acute hypoxic and Hypercarbic Respiratory failure Hypertensive Emergency Ventilatory Dyssynchrony Agitated Delirium Acute kidney failure Plan: - seroquel 100mg po q8hr for agitation - haldol 5mg iv q4h prn for breakthrough agitation - oxycodone 10mg po q4h - fentanyl - propofol - may require prn boluses of neuromuscular blockade if we cannot get control of vent synchrony. do not want to place on paralytic drip: would prefer to have a neurologic exam. - Not ready for SBT - CT head EEG in am - D/W Dr. Tinajero - frequent neuro checks - goal SBP < 140 - cardene/labetalol/hydralazine prn - Renal ultrasound, nephrology consult - urine eos, lytes - TF at goal - bowel regimen - SCDs. hold pharmacologic DVT prophylaxis given ICH. - appreciate nsgy - Protonix. Overall impression: Critically ill with hypertensive emergency and thalamic bleed. worsening respiratory status, agitated delirium, now with worsening RAFAELA. Prognosis guarded Critical Care 36 mins aside from procedures. Ladan Pierre MD Sep 01, 2017 16:50
[2017-09-01] MEDS: PIPERACIL-TAZO 3.375 GM PREMIX 50 ML IV SCH (17:35)
[2017-09-01] MEDS: ATORVASTATIN 40 MG TAB PO SCH (21:01)
--- NOTE | 2017-09-01 23:03 | HHI.NSPN ---
History Chief Complaint: intubated and sedated Interval History 46-year-old male with history of hypertension who was brought to the emergency room per [facility] after being found with altered mental status, right hemiparesis. He had reportedly been seen to be normal approximately 3-1/2 hours prior. Systolic blood pressure greater than 260/130 on initial evaluation. No seizure activity reported. Positive emesis. Per emergency room personnel the patient was responding verbally, difficulty raising his right arm upon initial arrival. He was intubated in the emergency room and a stat CT scan accomplished which has revealed a primarily left thalamic intracranial hemorrhage. 09/01/17: Patient remains intubated and sedated. Exam Results Vital Signs Date Time Temp Pulse Resp B/P (MAP) Pulse Ox O2 Delivery O2 Flow Rate FiO2 09/01/17 22:00 66 09/01/17 20:56 100 40 09/01/17 20:00 98.6 18 140/79 (99) 09/01/17 19:00 Mechanical Ventilator 08/28/17 23:57 2.00 Intake and Output 09/01/17 09/01/17 09/02/17 08:00 16:00 00:00 Intake Total 1998 ml 200 ml 473 ml Output Total 825 ml 875 ml Balance 1173 ml 200 ml -402 ml Physical Examination Intubated and sedated on propofol No response to voice No eye opening to voice or deep pain Pupils 2 mm nonreactive Disconjugate oculocephalics Minimal corneal No response to deep pain in all extremities Lab, Micro, Other Results Last Impressions Renal Ultrasound 08/31/17 0000 Signed Impressions: Service Date/Time: Thursday, August 31, 2017 17:42 - CONCLUSION: 1. No evidence of hydronephrosis on either side. 2. Solitary linear echogenic focus in the upper pole parenchyma of the right kidney has similar features to prior examination in January 2017 and possibly represents a calcification. David Snell MD Chest X-Ray 08/31/17 0000 Signed Impressions: Service Date/Time: Thursday, August 31, 2017 12:00 - CONCLUSION: 1. Cardiomegaly. 2. Clear lungs. David Castaneda Jr., MD Head CT 08/29/17 0800 Signed Impressions: Service Date/Time: Tuesday, August 29, 2017 08:21 - CONCLUSION: Intraventricular and left thalamic hemorrhage not significantly changed. About 6 mm of rightward midline shift also not significantly changed. Ignacio Lares MD Neck CTA [id number] Signed Impressions: Service Date/Time: Tuesday, August 29, 2017 00:13 - CONCLUSION: Negative carotid CTA. David Snell MD Head CTA [id number] Signed Impressions: Service Date/Time: Tuesday, August 29, 2017 00:13 - CONCLUSION: 1. No evidence of vessel truncation or aneurysm. 2. No abnormal vessels in the region of the large left thalamic hemorrhage. David Snell MD Laboratory Tests Test 09/01/17 04:50 White Blood Count 8.9 TH/MM3 Red Blood Count 4.05 MIL/MM3 Hemoglobin 11.0 GM/DL Hematocrit 33.4 % Mean Corpuscular Volume 82.4 FL Mean Corpuscular Hemoglobin 27.1 PG Mean Corpuscular Hemoglobin Concent 32.8 % Red Cell Distribution Width 15.0 % Platelet Count 177 TH/MM3 Mean Platelet Volume 9.8 FL Blood Urea Nitrogen 42 MG/DL Creatinine 3.93 MG/DL Random Glucose 155 MG/DL Calcium Level 8.6 MG/DL Sodium Level 140 MEQ/L Potassium Level 3.7 MEQ/L Chloride Level 106 MEQ/L Carbon Dioxide Level 24.9 MEQ/L Anion Gap 9 MEQ/L Estimat Glomerular Filtration Rate 20 ML/MIN Medical Decision Making Impression and Plan Impression: 1. No improvement in neurologic exam since admission following relatively large thalamic intracranial hemorrhage. Recommendations: Patient was not seen by the undersigned on 08/31/2017 or 08/30/2017 since a formal consult was not placed in the EMR and he did not appear on rounding list , and nursing report on 08/29/2017 p.m. indicated the patient family may not want to continue supportive care. Contacted by puller through today regarding the patient's presence in the intensive care unit. I have requested a formal consult to be placed. Plan follow-up CT scan of the head on 09/02/2017. According to nursing report this evening, the patient's family wishes to continue full care. Orville Tinajero MD Sep 01, 2017 23:03
[2017-09-02] VITALS (20 sets, daily range): BP systolic 122–180; BP diastolic 60–86; PULSE 66–90; RESP 18–19; TEMP 98.4–100.4; O2SAT 93–100
[2017-09-02] MEDS: PIPERACIL-TAZO 3.375 GM PREMIX 50 ML IV SCH ×2 (00:17→05:59)
[2017-09-02] MEDS: oxyCODONE HCL ORAL CONC 5 MG/0.25 ML SYRINGE PO SCH ×6 (00:18→21:22)
[2017-09-02] MEDS: PROPRANOLOL HCL 10 MG TAB PO SCH ×5 (00:18→23:29)
[2017-09-02] MEDS: PROPOFOL 1000 MG/100 ML INJ 100 ML IV PRN ×7 (01:00→22:51)
[2017-09-02] MEDS: fentaNYL DRIP 250 ML IV PRN ×3 (01:43→22:26)
[2017-09-02] MEDS: RESP: ALBUTEROL 2.5 MG/IPRATROPIUM 0.5 MG NEB (PRN) INH ×2 (03:44→22:04)
--- NOTE | 2017-09-02 03:59 | RADRPT ---
EXAM DATE/TIME: 09/02/2017 03:11 [facility] COMPARISON: No previous studies available for comparison. INDICATIONS : Follow up bleed. RADIATION DOSE: 69.15 CTDIvol (mGy) ; Tabletop CT Head MEDICAL HISTORY : Hypertension. Cerebrovascular disease. SURGICAL HISTORY : None. ENCOUNTER: Subsequent ACUITY: 4 - 6 days PAIN SCALE: Non-responsive LOCATION: cranial TECHNIQUE: Multiple contiguous axial images were obtained of the head. Using automated exposure control and adj ustment of the mA and/or kV according to patient size, radiation dose was kept as low as reasonably a chievable to obtain optimal diagnostic quality images. DICOM format image data is available electro nically for review and comparison. FINDINGS: CEREBRUM: Left thalamic subacute parenchymal hemorrhage again noted extending into the left lateral ventricle. There is small blood in the right lateral ventricles. The amount of parenchymal and intraventricular blood has decreased slightly. There is decreased midline shift, currently about 2.5 mm. No new blood. No evidence of an acute ischemic event. No mass lesion seen. POSTERIOR FOSSA: The cerebellum and brainstem are intact. The 4th ventricle is midline. The cerebellopontine angle i s unremarkable. EXTRACRANIAL: Mucoperiosteal thickening seen of the visualized paranasal sinuses. Small to moderate fluid levels ar e seen in the maxillary air cells. SKULL: The calvaria is intact. No evidence of skull fracture. CONCLUSION: 1. Slowly decreasing left thalamic and intraventricular hemorrhage. Decreased rightward midline shift , currently approximately 2.5 mm. 2. No new hemorrhage or other acute intracranial abnormality. 3. Paranasal sinusitis has developed. Ignacio Lares MD on September 02, 2017 at 3:54 Board Certified Radiologist. This report was verified electronically.
[2017-09-02] MEDS: CHLORHEXIDINE GLUCONATE 2 % 1 PACK (2 CLOTHS) TOP SCH (04:00)
[2017-09-02 04:17] LABS: HEMATOCRIT 33.1 % (39.0-51.0); HEMOGLOBIN 10.8 GM/DL (13.0-17.0); MEAN CELL VOLUME 81.4 FL (80.0-100.0); MEAN CORPUSCULAR HEMOGLOBIN 26.5 PG (27.0-34.0); MEAN CORPUSCULAR HGB CONC 32.5 % (32.0-36.0); MEAN PLATELET VOLUME 10.1 FL (7.0-11.0); PLATELET COUNT 192 TH/MM3 (150-450); RED BLOOD COUNT 4.07 MIL/MM3 (4.50-5.90); RED CELL DISTRIBUTION WIDTH 15.5 % (11.6-17.2); WHITE BLOOD COUNT 7.5 TH/MM3 (4.0-11.0)
[2017-09-02] MEDS: LABETALOL HCL 100 MG/20 ML VIAL IV PUSH PRN ×6 (04:21→23:46)
[2017-09-02 04:47] LABS: BICARBONATE 26.2 MEQ/L (21.0-32.0); CALCIUM 9.1 MG/DL (8.5-10.1); CREATININE 4.63 MG/DL (0.60-1.30)
[2017-09-02] MEDS: QUEtiapine FUMARATE 100 MG TAB PO SCH ×3 (05:59→21:22)
[2017-09-02] MEDS: cloNIDine HCL 0.1 MG TAB PO SCH ×3 (05:59→21:22)
[2017-09-02] MEDS: INSULIN NovoLIN REGULAR SUPPLEMENTAL SCALE SQ SCH ×4 (06:00→18:00)
[2017-09-02] MEDS: CHLORHEXIDINE 0.12% (ORAL KIT) 15 ML CUP MT SCH ×2 (08:00→20:53)
--- NOTE | 2017-09-02 08:10 | PD.CONS ---
[facility] Service Nephrology Consult Requested By Dr. Pierre Reason for Consult RAFAELA Primary Care Physician Unknown History of Present Illness This is a 46 year old unfortunate male who was brought to the hospital in an obtunded state. He was intubated in the ER. On arrival creatinine was about 2. BP as high as 260/130. Imaging was consistent with hemorrhagic stroke, involving the left thalamus. Patient is on Cardene drip. BP dropped, normalized over the ensuing days. Non oliguric. Creatinine 4.6 today. Neurosurgery on the case, recommend non surgical management. Has history of obesity, hypertension, and prior CVA. Review of Systems ROS Limitations: Clinical Condition, Altered Mental Status Past Family Social History Allergies: Coded Allergies: No Known Allergies (Verified , 01/06/17) Past Medical History Hyperlipidemia Hypertension CVA Pneumonia Obesity. Reported Medications Amlodipine (Amlodipine Besylate) 10 Mg Tab 10 Mg PO DAILY Lipitor (Atorvastatin Calcium) 40 Mg Tab 40 Mg PO HS Hydrochlorothiazide 25 Mg Tab 25 Mg PO DAILY Lisinopril 40 Mg Tab 40 Mg PO DAILY Aspirin 81 Mg Chew 81 Mg CHEW DAILY Levaquin (Levofloxacin) 500 Mg Tab 500 Mg PO DAILY Reported Metoprolol Tartrate 100 Mg Tab 100 Mg PO BID Clonidine (Clonidine HCl) 0.1 Mg Tab 0.1 Mg PO HS Physical Exam Vital Signs Vital Signs Date Time Temp Pulse Resp B/P (MAP) Pulse Ox O2 Delivery O2 Flow Rate FiO2 09/02/17 06:00 78 09/02/17 04:11 100 40 09/02/17 04:00 100.4 81 18 162/80 (107) 93 09/02/17 04:00 40 09/02/17 04:00 81 09/02/17 03:05 100 100 09/02/17 02:00 70 09/02/17 00:50 100 40 09/02/17 00:00 66 09/02/17 00:00 98.4 68 18 133/72 (92) 100 09/02/17 00:00 40 09/01/17 22:00 66 09/01/17 20:56 100 40 09/01/17 20:00 74 09/01/17 20:00 40 09/01/17 20:00 98.6 74 18 140/79 (99) 92 09/01/17 19:00 99 Mechanical Ventilator 40 09/01/17 18:00 76 09/01/17 16:07 99 40 09/01/17 16:00 40 09/01/17 16:00 72 09/01/17 16:00 98.9 72 18 109/58 (75) 98 09/01/17 14:00 78 09/01/17 13:30 40 09/01/17 12:00 40 09/01/17 12:00 82 09/01/17 12:00 99.1 82 18 150/66 (94) 97 123/65 (84) 09/01/17 11:33 94 40 09/01/17 10:00 84 09/01/17 09:23 98 40 09/01/17 08:00 100.3 74 18 138/72 (94) 99 09/01/17 08:00 40 09/01/17 08:00 74 Physical Exam GENERAL: intubated, unresponsive. SKIN: Warm and dry. HEAD: Normocephalic. EYES: No scleral icterus. No injection or drainage. NECK: Supple, trachea midline. No JVD or lymphadenopathy. CARDIOVASCULAR: Regular rate and rhythm without murmurs, gallops, or rubs. RESPIRATORY: Breath sounds equal bilaterally. No accessory muscle use. GASTROINTESTINAL: Abdomen soft, non-tender, nondistended. MUSCULOSKELETAL: generalized edema. BACK: Nontender without obvious deformity. No CVA tenderness. Laboratory Laboratory Tests Test 09/02/17 03:45 White Blood Count 7.5 Red Blood Count 4.07 Hemoglobin 10.8 Hematocrit 33.1 Mean Corpuscular Volume 81.4 Mean Corpuscular Hemoglobin 26.5 Mean Corpuscular Hemoglobin Concent 32.5 Red Cell Distribution Width 15.5 Platelet Count 192 Mean Platelet Volume 10.1 Blood Urea Nitrogen 47 Creatinine 4.63 Random Glucose 138 Calcium Level 9.1 Sodium Level 142 Potassium Level 3.4 Chloride Level 107 Carbon Dioxide Level 26.2 Anion Gap 9 Estimat Glomerular Filtration Rate 17 Date/Time Source Procedure Growth Status 08/31/17 06:05 Blood Peripheral Aerobic Blood Culture - Preliminary NO GROWTH IN 1 DAY Resulted 08/31/17 06:05 Blood Peripheral Anaerobic Blood Culture - Preliminary NO GROWTH IN 1 DAY Resulted 08/30/17 09:10 Sputum Endotracheal Gram Stain - Final Complete 08/30/17 09:10 Sputum Endotracheal Sputum Culture - Final MODERATE GROWTH NORMAL RESPIRATORY ESTELITA Complete 08/31/17 05:30 Urine Catheterized Urine Urine Culture - Final NO GROWTH IN 48 HOURS. Complete Result Diagram: 09/02/17 0345 09/02/17 0345 Assessment and Plan Problem List: (1) Acute kidney injury ICD Codes: N17.9 - Acute kidney failure, unspecified Status: Acute Plan: Likely due to renal hypoperfusion resulting from normalization of BP. Patient had abnormal renal function on arrival, it is possible that he had underlying CKD: could have been due to hypertensive nephrosclerosis. RAFAELA also could have been due to malignant hypertension, and resulting target organ injury. At this time, treatment is supportive. He appears to be non oliguric, n immediate need for dialysis. Avoid nephrotoxic agents. Renal US is negative for obstruction. Demonstrates fluid overload. Initiate diuresis cautiously. (2) Hemorrhagic stroke ICD Codes: I61.9 - Nontraumatic intracerebral hemorrhage, unspecified Status: Acute Plan: Non surgical management. (3) Hypertension ICD Codes: I10 - Hypertension Status: Chronic Plan: On Cardene drip Assessment and Plan Overall prognosis is guarded. Thanks for the consult. Adolph Rachel MD Sep 02, 2017 08:09
[2017-09-02] MEDS: PANTOPRAZOLE SODIUM 40 MG VIAL IV PUSH SCH (08:17)
[2017-09-02] MEDS: CALCIUM ACETATE 667 MG CAP PO SCH ×3 (08:18→18:12)
[2017-09-02] MEDS: POLYETHYLENE GLYCOL 17 GM PKG PO SCH ×2 (08:18→21:00)
[2017-09-02] MEDS: LISINOPRIL 20 MG TAB PO SCH (08:18)
[2017-09-02] MEDS: LACTULOSE SYRUP 20 GM/30 ML CUP PO SCH ×2 (08:18→21:00)
[2017-09-02] MEDS: BISACODYL 10 MG SUPP RECTAL SCH (08:18)
[2017-09-02] MEDS: DOCUSATE SODIUM 50 MG/SENNA 8.6 MG TAB PO SCH ×2 (08:18→21:51)
[2017-09-02] MEDS: HYDROCHLOROTHIAZIDE 25 MG TAB PO SCH (08:18)
[2017-09-02] MEDS: hydrALAZINE HCL 20 MG/ML VIAL IV PUSH PRN ×4 (08:18→20:53)
[2017-09-02] MEDS: niCARdipine INJ 25 MG in SODIUM CHLOR 0.9% 250 ML INJ 240 ML IV PRN (09:52)
--- NOTE | 2017-09-02 11:42 | HHI.CCPN ---
Subjective Remarks/Hospital Course Hospital Course: 46 y/o man with longstanding hypertension and previous CVA presents obtunded with new neurological symptoms noticed prior to arrival. Timeline unclear. Required intubation in ED for airway protection. CT head shows left thalamic bleed and shift away from bleed. Toxicology screen pending. Subjective: 08/30: encephalopathy persists. bp under better control, still on cardene. on sedation vacation, moves left side spontaneously but nothing on right. 08/31: overnight, severely agitated, requiring high dose sedation. also, lambert obstructed, new lambert placed with improvement in obstruction. this morning, RAFAELA with Cr up to 3. urine Na < 10, suggestive of pre-renal etiology. continued ivf. high peak pressures on vent. suction lavage with thick tenacious secretions. bronch with left lobe mucous plugging. bronchospasm a significant problem requiring iv magnesium and duonebs. finally attempted small paralytic dose with improvement in abdominal breathing and fighting ventilator. 09/01: No improvement in neuro exam, intermittent jerking movements noted by the RN no seizure. Creatinine for urine output adequate. I have consulted nephrology. We'll check CT of the head repeat EEG tomorrow a.m. 09/02: Clinically remains same. Did not tolerate sedation vacation, became hypertensive. CT head today showed slight improvement in L thalamic and IVH. Dr. Tinajero is the neurosurgeon, Dr. Jhaveri covering Objective Vital Signs Date Time Temp Pulse Resp B/P (MAP) Pulse Ox O2 Delivery O2 Flow Rate FiO2 09/02/17 11:13 96 40 09/02/17 11:05 89 124/57 09/02/17 08:00 100.0 18 09/02/17 07:00 Mechanical Ventilator Intake and Output 09/02/17 09/02/17 09/03/17 08:00 16:00 00:00 Intake Total 884 ml 100 ml Output Total 1550.0 ml Balance -666.0 ml 100 ml Result Diagram: 09/02/17 0345 09/02/17 0345 Other Results Microbiology Date/Time Source Procedure Growth Status 08/31/17 05:30 Urine Catheterized Urine Urine Culture - Final NO GROWTH IN 48 HOURS. Complete Objective Remarks Gen: Intubated sedated Head: Atraumatic. Conjunctivae injected. Neck: Supple, orally intubated. Lungs: Bilateral scattered wheezing Heart: Tachycardia, RR. Intermittently hypertensive Abdomen: Mildly distended, No guarding. Extremities: Warm, well perfused. Neuro: RASS -4 on propofol and fentanyl. moves LUE/LLE spontaneously, no movement on right. does not follow commands. w/d to pain left side. pupils equal , round, reactive. A/P Problem List: (1) Intracranial hemorrhage ICD Code: I62.9 - Nontraumatic intracranial hemorrhage, unspecified Status: Acute (2) Hemorrhagic stroke ICD Code: I61.9 - Nontraumatic intracerebral hemorrhage, unspecified Status: Acute (3) Hypertensive emergency ICD Code: I10 - Hypertensive emergency Status: Acute Assessment and Plan Assessment: 46yM with left thalamic hypertensive hemorrhagic IPH, ICH score 2. remains off pathway, poor neurologic exam. continue carvedilol and tight bp control. frequent neuro checks. cannot SBT or extubate while encephalopathic and hypertensive. CT head and EEG in am Active Problems: Acute encephalopathy Left Thalamic Hemorrhage, with IV extension Intracerebral Hemorrhage, ICH score 2 Acute hypoxic and Hypercarbic Respiratory failure Hypertensive Emergency Ventilatory Dyssynchrony Agitated Delirium Acute kidney failure Plan: - Seroquel 100mg po q8hr for agitation - Haldol 5mg iv q4h prn for breakthrough agitation - oxycodone 10mg po q4h - fentanyl, propofol. Very hypertensive on attempted sedation vacation - may require prn boluses of neuromuscular blockade if we cannot get control of vent synchrony. - Not ready for SBT - CT head 09/02 improving left thalamic and intraventricular hemorrhage, EEG pending - D/W Dr. Tinajero 09/01 - frequent neuro checks - goal SBP < 140 - Cardene/labetalol/hydralazine prn - Renal ultrasound, nephrology consult - Dr. Rachel has seen the patient no indication for emergency dialysis - TF at goal - bowel regimen - SCDs. hold pharmacologic DVT prophylaxis given ICH. - Protonix. - If no significant clinical improvement by next week proceed with tracheostomy/ PEG Overall impression: Critically ill with hypertensive emergency and thalamic bleed. worsening respiratory status, agitated delirium, now with worsening RAFAELA. Prognosis guarded Critical Care 32 mins aside from procedures. aLdan Pierre MD Sep 02, 2017 11:42
--- NOTE | 2017-09-02 12:04 | HHI.NSPN ---
(Nidhi Holland) Note Status Status: Progress Note (Nidhi Holland) Interval History Interval History 46-year-old male with history of hypertension who was brought to the emergency room per [facility] after being found with altered mental status, right hemiparesis. He had reportedly been seen to be normal approximately 3-1/2 hours prior. Systolic blood pressure greater than 260/130 on initial evaluation. No seizure activity reported. Positive emesis. Per emergency room personnel the patient was responding verbally, difficulty raising his right arm upon initial arrival. He was intubated in the emergency room and a stat CT scan accomplished which has revealed a primarily left thalamic intracranial hemorrhage. 09/01/17: Patient remains intubated and sedated. 09/02: intubated and well sedated, not tolerating sedation vacation due to increase in blood pressure. (Nidhi Holland) Labs, Micro, & Vital Signs Results Date Time Temp Pulse Resp B/P (MAP) Pulse Ox O2 Delivery O2 Flow Rate FiO2 09/02/17 11:30 88 126/59 09/02/17 11:13 96 40 09/02/17 11:05 89 124/57 09/02/17 10:15 90 164/69 09/02/17 10:10 91 166/72 09/02/17 10:05 95 181/76 09/02/17 10:00 90 09/02/17 10:00 93 178/74 09/02/17 09:52 93 182/76 09/02/17 08:00 40 09/02/17 08:00 88 09/02/17 08:00 100.0 86 18 180/86 (117) 99 09/02/17 07:58 96 40 09/02/17 07:00 98 Mechanical Ventilator 40 09/02/17 06:00 78 09/02/17 04:11 100 40 09/02/17 04:00 100.4 81 18 162/80 (107) 93 09/02/17 04:00 40 09/02/17 04:00 81 09/02/17 03:05 100 100 09/02/17 02:00 70 09/02/17 00:50 100 40 09/02/17 00:00 66 09/02/17 00:00 98.4 68 18 133/72 (92) 100 09/02/17 00:00 40 09/01/17 22:00 66 09/01/17 20:56 100 40 09/01/17 20:00 74 09/01/17 20:00 40 09/01/17 20:00 98.6 74 18 140/79 (99) 92 09/01/17 19:00 99 Mechanical Ventilator 40 09/01/17 18:00 76 09/01/17 16:07 99 40 09/01/17 16:00 40 09/01/17 16:00 72 09/01/17 16:00 98.9 72 18 109/58 (75) 98 09/01/17 14:00 78 09/01/17 13:30 40 09/03/17 06:59 Intake Total 100 ml Output Total 50.0 ml Balance 50.0 ml Constitutional Vital Signs Date Time Temp Pulse Resp B/P (MAP) Pulse Ox O2 Delivery O2 Flow Rate FiO2 09/02/17 11:30 88 126/59 09/02/17 11:13 96 40 09/02/17 11:05 89 124/57 09/02/17 10:15 90 164/69 09/02/17 10:10 91 166/72 09/02/17 10:05 95 181/76 09/02/17 10:00 90 09/02/17 10:00 93 178/74 09/02/17 09:52 93 182/76 09/02/17 08:00 40 09/02/17 08:00 88 09/02/17 08:00 100.0 86 18 180/86 (117) 99 09/02/17 07:58 96 40 09/02/17 07:00 98 Mechanical Ventilator 40 09/02/17 06:00 78 09/02/17 04:11 100 40 09/02/17 04:00 100.4 81 18 162/80 (107) 93 09/02/17 04:00 40 09/02/17 04:00 81 09/02/17 03:05 100 100 09/02/17 02:00 70 09/02/17 00:50 100 40 09/02/17 00:00 66 09/02/17 00:00 98.4 68 18 133/72 (92) 100 09/02/17 00:00 40 09/01/17 22:00 66 09/01/17 20:56 100 40 09/01/17 20:00 74 09/01/17 20:00 40 09/01/17 20:00 98.6 74 18 140/79 (99) 92 09/01/17 19:00 99 Mechanical Ventilator 40 09/01/17 18:00 76 09/01/17 16:07 99 40 09/01/17 16:00 40 09/01/17 16:00 72 09/01/17 16:00 98.9 72 18 109/58 (75) 98 09/01/17 14:00 78 09/01/17 13:30 40 09/03/17 06:59 Intake Total 100 ml Output Total 50.0 ml Balance 50.0 ml (Nidhi Holland) Review of Systems ROS Limitations: Intubated (Nidhi Holland) Physical Exam Intubated and sedated on multiple sedative drips No response to voice No eye opening to voice or deep pain Pupils 2 mm nonreactive Disconjugate oculocephalics Motor: mild withdrawal to left upper and lower extremity to pain, dense right hemiparesis (Nidhi Holland) Mr Matos is Intubated and sedated on multiple sedative drips No response to voice No eye opening to voice or deep pain Pupils 2 mm nonreactive. Disconjugate oculocephalics Motor: mild withdrawal to left upper and lower extremity to pain, dense right hemiparesis Cerebellar exam not possible (Genaro Jhaveri MD) Medications Current Medications Current Medications Medications (Trade) Dose Ordered Sig/Hermann Route PRN Reason Start Time Stop Time Status Last Admin Dose Admin Sodium Chloride (NS Flush) 2 ml UNSCH PRN IVF FLUSH AFTER USING IV ACCESS 08/29/17 00:00 Chlorhexidine Gluconate (Peridex 0.12% Liq) 15 ml BID@08,20 MT 08/29/17 08:00 09/02/17 08:00 Nicardipine HCl 25 mg/Sodium Chloride 250 ml @ 50 mls/hr TITRATE PRN IV BLOOD PRESSURE MANAGEMENT 08/29/17 00:45 09/02/17 09:52 Labetalol HCl (Trandate Inj) 10 mg Q20M PRN IV PUSH SBP>140, DBP>90 08/29/17 00:45 09/02/17 10:08 Amlodipine Besylate (Norvasc) 10 mg DAILY PO 08/29/17 09:00 09/02/17 08:18 Lisinopril (Prinivil) 40 mg DAILY PO 08/29/17 09:00 09/02/17 08:18 Acetaminophen (Tylenol) 650 mg Q6H PRN PO PAIN 1-5 AND/OR FEVER >101F 08/29/17 00:45 08/31/17 04:17 Morphine Sulfate (Morphine Inj) 2 mg Q2H PRN IV PUSH PAIN SCALE 6 TO 10 08/29/17 00:45 Pantoprazole Sodium (Protonix Inj) 40 mg DAILY IV PUSH 08/29/17 09:00 09/02/17 08:17 Ondansetron HCl (Zofran Inj) 4 mg Q6H PRN IV PUSH NAUSEA OR VOMITING 08/29/17 00:45 Albuterol/ Ipratropium (Duoneb Neb) 1 ampule Q4HR NEB PRN INH WHEEZING 08/29/17 00:45 09/02/17 03:44 Miscellaneous Information 1 Q361D XX 08/29/17 00:45 08/29/17 01:00 Chlorhexidine Gluconate (Chlorhexidine 2% Cloth) 3 pack Taper DAILY@04 TOP 08/29/17 04:00 08/25/18 03:59 Chlorhexidine Gluconate (Chlorhexidine 2% Cloth) 3 pack UNSCH PRN TOP HYGIENIC CARE 08/29/17 00:45 Fentanyl Citrate 250 ml @ 5 mls/hr TITRATE PRN IV SEDATION 08/29/17 00:45 09/02/17 01:43 Atorvastatin Calcium (Lipitor) 40 mg HS PO 08/29/17 21:00 09/01/17 21:01 Hydrochlorothiazide (Hydrodiuril) 25 mg DAILY PO 08/29/17 09:00 09/02/17 08:18 Metoprolol Tartrate (Lopressor) 100 mg BID PO 08/29/17 09:00 Future Hold 08/31/17 09:15 Clonidine (Catapres) 0.1 mg Q8HR PO 08/29/17 06:00 09/02/17 05:59 Dextrose (D50w (Vial) Inj) 25 ml UNSCH PRN IV PUSH HYPOGLYCEMIA-SEE COMMENTS 08/30/17 08:15 Insulin Human Regular (NovoLIN R SUPPLEMENTAL SCALE) 1 Q6HR SQ 08/30/17 12:00 09/01/17 18:00 Hydralazine HCl (Apresoline Inj) 10 mg Q30M PRN IV PUSH sbp > 160 08/30/17 08:15 09/02/17 10:09 Propofol 100 ml @ 14.352 mls/ hr TITRATE PRN IV SEDATION 08/31/17 00:30 09/02/17 09:45 Oxycodone HCl (Roxicodone Intensol Liq) 10 mg Q4H PO 08/31/17 13:00 09/02/17 08:18 Propranolol HCl (Inderal) 10 mg Q6HR PO 08/31/17 12:00 09/02/17 05:59 Quetiapine Fumarate (SEROquel) 100 mg Q8HR PO 08/31/17 11:00 09/02/17 05:59 Haloperidol Lactate (Haldol Inj) 5 mg Q4H PRN IV agitation 08/31/17 11:00 Bisacodyl (Dulcolax Supp) 10 mg DAILY RECTAL 08/31/17 12:00 08/31/17 11:58 Polyethylene Glycol (Miralax) 17 gm BID PO 08/31/17 12:00 08/31/17 20:31 Lactulose (Lactulose Liq) 30 ml BID PO 08/31/17 12:00 09/01/17 21:00 Senna/Docusate Sodium (Melina-Colace) 1 tab BID PO 08/31/17 12:00 08/31/17 20:31 Calcium Acetate (Phoslo) 667 mg TID PO 08/31/17 18:00 09/02/17 08:18 Piperacillin Sod/ Tazobactam Sod 50 ml @ 100 mls/hr Q8HR IV 09/02/17 14:00 (Nidhi Holland) Current Medications Current Medications Sodium Chloride 1,000 ml @ 70 mls/hr [id number] ONCE IV ; Start 08/28/17 at 23:47 ; Stop 08/29/17 at 14:04; Status DC Nicardipine HCl 25 mg/Sodium Chloride 250 ml @ 50 mls/hr TITRATE PRN IV Blood pressure management; Start 08/29/17 at 00:00; Stop 08/29/17 at 00:48; Status DC Propofol 100 ml @ 0 mls/hr TITRATE PRN IV SEDATION; Start 08/29/17 at 00:00; Stop 08/29/17 at 00:40; Status DC Propofol 100 ml @ As Directed STK-MED ONCE .ROUTE ; Start 08/28/17 at 23:57; Stop 08/28/17 at 23:58; Status DC Etomidate (Amidate Inj) 20 mg ONCE ONCE IVP ; Start 08/29/17 at 00:00; Stop 08/29/17 at 00:01; Status DC Succinylcholine Chloride (Quelicin Inj) 100 mg ONCE ONCE IV PUSH ; Start 08/29 at 00:00; Stop 08/29/17 at 00:01; Status DC Sodium Chloride (NS Flush) 2 ml UNSCH PRN IVF FLUSH AFTER USING IV ACCESS; Start 08/29/17 at 00:00 Rocuronium Dunbar (Zemuron Inj) 50 mg BOLUS ONCE IV ; Start 08/29/17 at 00:15 ; Stop 08/29/17 at 00:17; Status DC Iohexol (Omnipaque 350 Inj) 100 ml STK-MED ONCE IVCONTRAST Last administered on 08/29/17 00:18; Start 08/29/17 at 00:18; Stop 08/29/17 at 00:19; Status DC Chlorhexidine Gluconate (Peridex 0.12% Liq) 15 ml BID@08,20 MT Last administered on 09/07/17 08:00; Start 08/29/17 at 08:00 Propofol 100 ml @ 3 mls/hr TITRATE PRN IV SEDATION; Start 08/29/17 at 00:45; Stop 08/29/17 at 04:17; Status DC Nicardipine HCl (Cardene Inj) 25 mg STK-MED ONCE .ROUTE ; Start 08/29/17 at 00: 36; Stop 08/29/17 at 00:37; Status DC Nicardipine HCl 25 mg/Sodium Chloride 250 ml @ 50 mls/hr TITRATE PRN IV BLOOD PRESSURE MANAGEMENT Last administered on 09/02/17 09:52; Start 08/29/17 at 00 :45; Stop 09/02/17 at 21:12; Status DC Labetalol HCl (Trandate Inj) 10 mg Q20M PRN IV PUSH SBP>140, DBP>90 Last administered on 09/06/17 19:36; Start 08/29/17 at 00:45 Amlodipine Besylate (Norvasc) 10 mg DAILY PO Last administered on 09/07/17 08 :26; Start 08/29/17 at 09:00 Lisinopril (Prinivil) 40 mg DAILY PO Last administered on 09/04/17 09:07; Start 08/29/17 at 09:00; Stop 09/04/17 at 12:18; Status DC Sodium Chloride 1,000 ml @ 75 mls/hr [id number] IV Last administered on 06:03; Start 08/29/17 at 00:43; Stop 08/31/17 at 11:07; Status DC Acetaminophen (Tylenol) 650 mg Q6H PRN PO PAIN 1-5 AND/OR FEVER >101F Last administered on 09/06/17 20:04; Start 08/29/17 at 00:45 Morphine Sulfate (Morphine Inj) 2 mg Q2H PRN IV PUSH PAIN SCALE 6 TO 10; Start 08/29/17 at 00:45 Pantoprazole Sodium (Protonix Inj) 40 mg DAILY IV PUSH Last administered on 08:26; Start 08/29/17 at 09:00 Ondansetron HCl (Zofran Inj) 4 mg Q6H PRN IV PUSH NAUSEA OR VOMITING; Start at 00:45 Albuterol/ Ipratropium (Duoneb Neb) 1 ampule Q4HR NEB PRN INH WHEEZING Last administered on 09/05/17 08:44; Start 08/29/17 at 00:45 Miscellaneous Information 1 Q361D XX Last administered on 08/29/17 01:00; Start 08/29/17 at 00:45 Chlorhexidine Gluconate (Chlorhexidine 2% Cloth) Taper DAILY@04 TOP ; Start at 04:00; Stop 08/25/18 at 03:59 Chlorhexidine Gluconate (Chlorhexidine 2% Cloth) 3 pack UNSCH PRN TOP HYGIENIC CARE; Start 08/29/17 at 00:45 Senna/Docusate Sodium (Melina-Colace) 1 tab BID PO Last administered on 09:15; Start 08/29/17 at 09:00; Stop 08/31/17 at 11:08; Status DC Magnesium Hydroxide (Milk Of Magnesia Liq) 30 ml Q12H PRN PO Mild constipation ; Start 08/29/17 at 00:45; Stop 08/31/17 at 11:08; Status DC Sennosides (Senokot) 17.2 mg Q12H PRN PO Moderate constipation; Start at 00:45; Stop 08/31/17 at 11:08; Status DC Bisacodyl (Dulcolax Supp) 10 mg DAILY PRN RECTAL SEVERE CONSITIPATION; Start 08/29/17 at 00:45; Stop 08/31/17 at 11:08; Status DC Lactulose (Lactulose Liq) 30 ml DAILY PRN PO SEVERE CONSITIPATION; Start 08/29 at 00:45; Stop 08/31/17 at 11:08; Status DC Fentanyl Citrate 250 ml @ 5 mls/hr TITRATE PRN IV SEDATION Last administered on 09/06/17 23:01; Start 08/29/17 at 00:45 Fentanyl Citrate 250 ml @ As Directed STK-MED ONCE .ROUTE ; Start 08/29/17 at 01:30; Stop 08/29/17 at 04:10; Status DC Propofol 100 ml @ 3 mls/hr TITRATE PRN IV SEDATION Last administered on 07:37; Start 08/29/17 at 04:30; Stop 08/31/17 at 11:08; Status DC Rocuronium Dunbar (Zemuron Inj) 100 mg STAT ONCE IV Last administered on 02:00; Start 08/29/17 at 02:00; Stop 08/29/17 at 04:18; Status DC Atorvastatin Calcium (Lipitor) 40 mg HS PO Last administered on 09/06/17 20: 04; Start 08/29/17 at 21:00 Hydrochlorothiazide (Hydrodiuril) 25 mg DAILY PO Last administered on 08:26; Start 08/29/17 at 09:00 Metoprolol Tartrate (Lopressor) 100 mg BID PO Last administered on 08/31/17 09:15; Start 08/29/17 at 09:00; Status Future Hold Clonidine (Catapres) 0.1 mg Q8HR PO Last administered on 09/06/17 04:55; Start 08/29/17 at 06:00; Stop 09/06/17 at 11:33; Status DC Sodium Chloride 1,000 ml @ 999 mls/hr Q1H1M ONCE IV Last administered on 08/29 06:10; Start 08/29/17 at 06:30; Stop 08/29/17 at 07:30; Status DC Magnesium Oxide (Mag-Ox) 800 mg UNSCH PRN PO For Magnesium 1.2 - 1.6 mg/dL; Start 08/29/17 at 13:15; Stop 08/30/17 at 15:34; Status DC Magnesium Sulfate 4 gm/Sodium Chloride 100 ml @ 50 mls/hr UNSCH PRN IV For Magnesium 0.9 - 1.1 mg/dL; Start 08/29/17 at 13:15; Stop 08/30/17 at 15:34; Status DC Magnesium Sulfate 2 gm/Sodium Chloride 100 ml @ 50 mls/hr UNSCH PRN IV For Magnesium 1.2 - 1.6 mg/dL; Start 08/29/17 at 13:15; Stop 08/30/17 at 15:34; Status DC Potassium Chloride 100 ml @ 50 mls/hr Q2H PRN IV For Potassium 2.8 - 3.2 mEq/ L Last administered on 08/29/17 17:06; Start 08/29/17 at 13:15; Stop at 15:34; Status DC Potassium Chloride 100 ml @ 50 mls/hr Q2H PRN IV For Potassium 3.3 - 3.5 mEq/ L Last administered on 08/30/17 06:13; Start 08/29/17 at 13:15; Stop at 15:34; Status DC Potassium Chloride 100 ml @ 50 mls/hr Q2H PRN IV For Potassium 2.8 - 3.2 mEq/L ; Start 08/29/17 at 13:15; Stop 08/30/17 at 15:34; Status DC Potassium Chloride 100 ml @ 25 mls/hr UNSCH PRN IV For Potassium 3.3 - 3.5 mEq /L; Start 08/29/17 at 13:15; Stop 08/30/17 at 15:34; Status DC Potassium Phosphate (K-Phos) 2,000 mg Q4H PRN PO For Phosphorus < 2.5 mg/dL; Start 08/29/17 at 13:15; Stop 08/30/17 at 15:34; Status DC Potassium Phosphate (K-Phos) 2,000 mg UNSCH PRN PO/TUBE SEE LABEL COMMENTS; Start 08/29/17 at 13:15; Stop 08/30/17 at 15:34; Status DC Potassium Phosphate 30 mmol/ Sodium Chloride 260 ml @ 42 mls/hr UNSCH PRN IV SEE LABEL COMMENTS; Start 08/29/17 at 13:15; Stop 08/30/17 at 15:34; Status DC Sodium Phosphate 30 mmol/Sodium Chloride 250 ml @ 42 mls/hr UNSCH PRN IV For Phosphorus < 2.5 mg/dL; Start 08/29/17 at 13:15; Stop 08/30/17 at 15:34; Status DC Dextrose (D50w (Vial) Inj) 25 ml UNSCH PRN IV PUSH HYPOGLYCEMIA-SEE COMMENTS; Start 08/30/17 at 08:15 Insulin Human Regular (NovoLIN R SUPPLEMENTAL SCALE) 1 Q6HR SQ Last administered on 09/06/17t 11:12; Start 08/30/17 at 12:00 Magnesium Oxide (Mag-Ox) 800 mg UNSCH PRN PO For Magnesium 1.2 - 1.6 mg/dL; Start 08/30/17 at 08:15; Stop 08/31/17 at 13:02; Status DC Magnesium Sulfate 4 gm/Sodium Chloride 100 ml @ 50 mls/hr UNSCH PRN IV For Magnesium 0.9 - 1.1 mg/dL; Start 08/30/17 at 08:15; Stop 08/31/17 at 13:02; Status DC Magnesium Sulfate 2 gm/Sodium Chloride 100 ml @ 50 mls/hr UNSCH PRN IV For Magnesium 1.2 - 1.6 mg/dL; Start 08/30/17 at 08:15; Stop 08/31/17 at 13:02; Status DC Potassium Chloride 100 ml @ 50 mls/hr Q2H PRN IV For Potassium 2.8 - 3.2 mEq/L ; Start 08/30/17 at 08:15; Stop 08/31/17 at 13:02; Status DC Potassium Chloride 100 ml @ 50 mls/hr Q2H PRN IV For Potassium 3.3 - 3.5 mEq/L ; Start 08/30/17 at 08:15; Stop 08/31/17 at 13:02; Status DC Potassium Chloride 100 ml @ 50 mls/hr Q2H PRN IV For Potassium 2.8 - 3.2 mEq/L ; Start 08/30/17 at 08:15; Stop 08/31/17 at 13:02; Status DC Potassium Chloride 100 ml @ 25 mls/hr UNSCH PRN IV For Potassium 3.3 - 3.5 mEq /L; Start 08/30/17 at 08:15; Stop 08/31/17 at 13:02; Status DC Potassium Phosphate (K-Phos) 2,000 mg Q4H PRN PO For Phosphorus < 2.5 mg/dL; Start 08/30/17 at 08:15; Stop 08/31/17 at 13:02; Status DC Potassium Phosphate (K-Phos) 2,000 mg UNSCH PRN PO/TUBE SEE LABEL COMMENTS; Start 08/30/17 at 08:15; Stop 08/31/17 at 13:02; Status DC Potassium Phosphate 30 mmol/ Sodium Chloride 260 ml @ 42 mls/hr UNSCH PRN IV SEE LABEL COMMENTS; Start 08/30/17 at 08:15; Stop 08/31/17 at 13:02; Status DC Sodium Phosphate 30 mmol/Sodium Chloride 250 ml @ 42 mls/hr UNSCH PRN IV For Phosphorus < 2.5 mg/dL; Start 08/30/17 at 08:15; Stop 08/31/17 at 13:02; Status DC Hydralazine HCl (Apresoline Inj) 10 mg Q30M PRN IV PUSH sbp > 160 Last administered on 09/07/17t 08:27; Start 08/30/17 at 08:15 Oxycodone HCl (Roxicodone Intensol Liq) 5 mg Q4H PO Last administered on 09:16; Start 08/30/17 at 09:00; Stop 08/31/17 at 11:07; Status DC Dexmedetomidine HCl 50 ml @ 29.9 mls/hr TITRATE IV ; Start 08/30/17 at 14:15; Stop 08/30/17 at 14:46; Status DC Dexmedetomidine HCl 200 mcg/ Sodium Chloride 50 ml @ 29.9 mls/hr TITRATE IV Last administered on 08/30/17 15:27; Start 08/30/17 at 15:00; Stop 08/30/17 at 16:42; Status DC Dexmedetomidine HCl 1000 mcg/ Sodium Chloride 250 ml @ 29.9 mls/hr TITRATE IV Last administered on 08/30/17 17:58; Start 08/30/17 at 16:45; Stop 08/31/17 at 06:14; Status DC Propofol 100 ml @ 14.352 mls/ hr TITRATE PRN IV SEDATION Last administered on 09/07/17 08:53; Start 08/31/17 at 00:30 Piperacillin Sod/ Tazobactam Sod 100 ml @ 200 mls/hr Q6HR IV Last administered on 09/01/17 13:02; Start 08/31/17 at 06:00; Stop 09/01/17 at 14 :52; Status DC Morphine Sulfate (Morphine Inj) 10 mg ONCE ONCE IV PUSH Last administered on 08/31/17 06:31; Start 08/31/17 at 06:30; Stop 08/31/17 at 06:31; Status DC Propranolol HCl (Inderal) 10 mg ONCE ONCE PO Last administered on 08/31/17 06:30; Start 08/31/17 at 06:15; Stop 08/31/17 at 06:20; Status DC Oxycodone HCl (Roxicodone Intensol Liq) 10 mg Q4H PO Last administered on 09/07 05:27; Start 08/31/17 at 13:00 Propranolol HCl (Inderal) 10 mg Q6HR PO Last administered on 09/07/17 05:28; Start 08/31/17 at 12:00 Quetiapine Fumarate (SEROquel) 100 mg Q8HR PO Last administered on 09/07/17 05:29; Start 08/31/17 at 11:00 Haloperidol Lactate (Haldol Inj) 5 mg Q4H PRN IV agitation; Start 08/31/17 at 11:00 Magnesium Sulfate/ Dextrose 100 ml @ 100 mls/hr Q1H IV Last administered on 12:22; Start 08/31/17 at 12:00; Stop 08/31/17 at 13:00; Status DC Bisacodyl (Dulcolax Supp) 10 mg DAILY RECTAL Last administered on 08/31/17 11 :58; Start 08/31/17 at 12:00; Status Future Hold Polyethylene Glycol (Miralax) 17 gm BID PO Last administered on 09/06/17 20: 04; Start 08/31/17 at 12:00 Lactulose (Lactulose Liq) 30 ml BID PO Last administered on 09/04/17 19:57; Start 08/31/17 at 12:00; Status Future Hold Senna/Docusate Sodium (Melina-Colace) 1 tab BID PO Last administered on 20:04; Start 08/31/17 at 12:00 Magnesium Citrate (Citroma Liq) 300 ml ONCE ONCE PO Last administered on 08/31 11:57; Start 08/31/17 at 12:00; Stop 08/31/17 at 12:01; Status DC Rocuronium Dunbar (Zemuron Inj) 50 mg STK-MED ONCE .ROUTE Last administered on 08/31/17 14:36; Start 08/31/17 at 14:36; Stop 08/31/17 at 14:37; Status DC Calcium Acetate (Phoslo) 667 mg TID PO Last administered on 09/07/17 08:27; Start 08/31/17 at 18:00 Rocuronium Dunbar (Zemuron Inj) 50 mg STAT ONCE IV Last administered on 08/31 16:00; Start 08/31/17 at 16:00; Stop 08/31/17 at 16:01; Status DC Lactated Ringer's 1,000 ml @ 999 mls/hr BOLUS ONCE IV Last administered on 21:12; Start 08/31/17 at 20:45; Stop 08/31/17 at 21:45; Status DC Piperacillin Sod/ Tazobactam Sod 50 ml @ 100 mls/hr Q6HR IV Last administered on 09/02/17 05:59; Start 09/01/17 at 18:00; Stop 09/02/17 at 10:45; Status DC Piperacillin Sod/ Tazobactam Sod 50 ml @ 100 mls/hr Q8HR IV Last administered on 09/07/17 05:30; Start 09/02/17 at 14:00 Nicardipine HCl 50 mg/Sodium Chloride 500 ml @ 50 mls/hr TITRATE PRN IV BLOOD PRESSURE MANAGEMENT Last administered on 09/05/17 22:00; Start 09/02/17 at 21 :15 Rocuronium Dunbar (Zemuron Inj) 50 mg STK-MED ONCE .ROUTE Last administered on 09/03/17 09:22; Start 09/03/17 at 09:22; Stop 09/03/17 at 09:23; Status DC Rocuronium Dunbar (Zemuron Inj) 50 mg NOW ONCE IV PUSH Last administered on 09/03/17 10:13; Start 09/03/17 at 10:15; Stop 09/03/17 at 10:16; Status DC Rocuronium Dunbar (Zemuron Inj) 50 mg NOW ONCE IV PUSH Last administered on 09/03/17 11:00; Start 09/03/17 at 11:00; Stop 09/03/17 at 11:01; Status DC Potassium Chloride 30 meq/ Sodium Chloride 115 ml @ 38.333 mls/ hr ONCE ONCE IV-CENTRAL Last administered on 09/03/17 13:36; Start 09/03/17 at 14:00; Stop 09/03/17 at 16:59; Status DC Dexamethasone Sodium Phosphate (Decadron Inj) 6 mg Q6H IV PUSH Last administered on 09/05/17 06:09; Start 09/04/17 at 13:00; Stop 09/05/17 at 11 :55; Status DC Diphenhydramine HCl (Benadryl Inj) 50 mg Q6H IV Last administered on 08:27; Start 09/04/17 at 13:00; Stop 09/07/17 at 12:59 Lorazepam (Ativan) 2 mg Q8H PO Last administered on 09/07/17 08:26; Start at 15:00 Acetaminophen 0 ml @ As Directed STK-MED ONCE IV ; Start 09/05/17 at 07:52; Stop 09/05/17 at 07:53; Status DC Insulin Detemir (Levemir Inj) 10 units Q12H SQ Last administered on 09/06/17 21:25; Start 09/05/17 at 10:00 Dexamethasone Sodium Phosphate (Decadron Inj) 4 mg Q12H IV PUSH Last administered on 09/07/17 05:28; Start 09/05/17 at 18:00; Stop 09/07/17 at 17 :59 Albuterol/ Ipratropium (Duoneb Neb) 1 ampule Q6HR NEB NEB Last administered on 09/07/17 08:20; Start 09/05/17 at 12:00 Rocuronium Dunbar (Zemuron Inj) 50 mg BOLUS STAT IV Last administered on 16:47; Start 09/05/17 at 16:37; Stop 09/05/17 at 16:38; Status DC Fluticasone Propionate (Flonase Tae Spr) 2 spray DAILY EACH NARE Last administered on 09/07/17 08:27; Start 09/05/17 at 17:00 Lactated Ringer's 1,000 ml @ 30 mls/hr Q24H PRN IV SEE LABEL COMMENTS; Start 09/05/17 at 23:00; Stop 09/08/17 at 22:59 Sodium Chloride 500 ml @ 30 mls/hr [id number] PRN IV SEE LABEL COMMENTS; Start at 23:00; Stop 09/08/17 at 22:59 Metoprolol Tartrate (Lopressor) 25 mg MEAT [employer]AD PRN PO SEE LABEL COMMENTS; Start 09/05/17 at 23:00; Stop 09/08/17 at 22:59 Povidone Iodine (Betadine 5% Antisepsis Kit) 1 applic [employer] PRN EACH NARE SEE LABEL COMMENTS; Start 09/05/17 at 23:00; Stop 09/08/17 at 22:59 Chlorhexidine Gluconate (Chlorhexidine 2% Cloth) 3 pack ME[employer] PRN TOPICAL SEE LABEL COMMENTS; Start 09/05/17 at 23:00; Stop 09/08/17 at 22:59 Insulin Human Regular (NovoLIN R INJ) See Protocol Table ... [employer] PRN SQ SEE PROTOCOL TABLE; Start 09/05/17 at 23:00; Stop 09/08/17 at 22:59 Potassium Chloride 100 ml @ 50 mls/hr ONCE ONCE IV Last administered on 09/06 10:16; Start 09/06/17 at 09:30; Stop 09/06/17 at 11:29; Status DC Clonidine (Catapres) 0.3 mg Q8HR PO Last administered on 09/07/17 05:28; Start 09/06/17 at 14:00 Clonidine (Catapres) 0.3 mg ONCE ONCE PO Last administered on 09/06/17 11:55 ; Start 09/06/17 at 11:45; Stop 09/06/17 at 11:46; Status DC Heparin Sodium (Porcine) (Heparin Inj) 5,000 units Q12HR SQ ; Start 09/06/17 at 21:00; Stop 09/06/17 at 21:00; Status DC Gelatin (Gelfoam 12 Mm/7 Mm Top) 1 foam STK-MED ONCE .ROUTE ; Start 09/07/17 at 09:47; Stop 09/07/17 at 09:48; Status DC (Genaro Jhaveri MD) Medical Decision Making MDM Remarks 46 y/o male with 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 Jhaveri dw family in room, her questions answered (Nidhi Holland) Attending Statement Continue neuro checks. Pulmonary. Continue aggressive pulmonary toilette, nasotracheal suction, and breathing treatments with nebulizers. Nutrition. NPO Renal. monitor closely urine output, BUN and creatinine Endocrine. Monitor serial Acu checks and SSI as needed in detail ID monitor for signs of infection Protonix for stress ulcer prophylaxis Vazquez hose and SCD's for DVT prophylaxis. The exam, history, and the medical decision-making described in the above note were completed with the assistance of the mid-level provider. I reviewed and agree with the findings presented. I attest that I had a [id number] encounter with the patient on the same day, and personally performed and documented my assessment and findings in the medical record. (Genaro Jhaveri MD) Nidhi Holland Sep 02, 2017 12:04 Genaro Jhaveri MD Sep 07, 2017 09:54
[2017-09-02] MEDS: PIPERACIL-TAZO 2.25 GM PREMIX 50 ML IV SCH ×2 (13:53→21:22)
[2017-09-02] MEDS: ATORVASTATIN 40 MG TAB PO SCH (21:22)
[2017-09-02] MEDS: niCARdipine INJ 50 MG in SODIUM CHLORID 0.9% 500 ML INJ 480 ML IV PRN (21:33)
[2017-09-03] VITALS (18 sets, daily range): BP systolic 120–147; BP diastolic 62–89; PULSE 72–84; RESP 18–22; TEMP 97.9–99.9; O2SAT 92–100
[2017-09-03] MEDS: INSULIN NovoLIN REGULAR SUPPLEMENTAL SCALE SQ SCH ×5 (00:16→23:54)
[2017-09-03] MEDS: oxyCODONE HCL ORAL CONC 5 MG/0.25 ML SYRINGE PO SCH ×7 (00:17→23:55)
[2017-09-03] MEDS: niCARdipine INJ 50 MG in SODIUM CHLORID 0.9% 500 ML INJ 480 ML IV PRN ×2 (01:59→05:56)
[2017-09-03] MEDS: PROPOFOL 1000 MG/100 ML INJ 100 ML IV PRN ×7 (01:59→22:47)
[2017-09-03] MEDS: LABETALOL HCL 100 MG/20 ML VIAL IV PUSH PRN (02:13)
[2017-09-03 03:19] LABS: HEMATOCRIT 33.2 % (39.0-51.0); MEAN CELL VOLUME 80.6 FL (80.0-100.0); MEAN CORPUSCULAR HEMOGLOBIN 26.8 PG (27.0-34.0); MEAN CORPUSCULAR HGB CONC 33.2 % (32.0-36.0); MEAN PLATELET VOLUME 9.5 FL (7.0-11.0); PLATELET COUNT 230 TH/MM3 (150-450); RED BLOOD COUNT 4.12 MIL/MM3 (4.50-5.90); RED CELL DISTRIBUTION WIDTH 15.1 % (11.6-17.2); WHITE BLOOD COUNT 7.7 TH/MM3 (4.0-11.0)
[2017-09-03 03:56] LABS: BICARBONATE 26.6 MEQ/L (21.0-32.0); CREATININE 5.11 MG/DL (0.60-1.30)
[2017-09-03] MEDS: CHLORHEXIDINE GLUCONATE 2 % 1 PACK (2 CLOTHS) TOP SCH (04:00)
[2017-09-03] MEDS: PIPERACIL-TAZO 2.25 GM PREMIX 50 ML IV SCH ×3 (05:09→21:53)
[2017-09-03] MEDS: QUEtiapine FUMARATE 100 MG TAB PO SCH ×3 (05:10→21:53)
[2017-09-03] MEDS: PROPRANOLOL HCL 10 MG TAB PO SCH ×4 (05:10→23:32)
[2017-09-03] MEDS: cloNIDine HCL 0.1 MG TAB PO SCH ×3 (05:10→21:53)
[2017-09-03] MEDS: BISACODYL 10 MG SUPP RECTAL SCH (07:50)
[2017-09-03] MEDS: CHLORHEXIDINE 0.12% (ORAL KIT) 15 ML CUP MT SCH ×2 (08:00→20:00)
[2017-09-03] MEDS: LACTULOSE SYRUP 20 GM/30 ML CUP PO SCH ×2 (08:30→20:23)
[2017-09-03] MEDS: POLYETHYLENE GLYCOL 17 GM PKG PO SCH ×2 (08:31→20:24)
[2017-09-03] MEDS: LISINOPRIL 20 MG TAB PO SCH (08:31)
[2017-09-03] MEDS: DOCUSATE SODIUM 50 MG/SENNA 8.6 MG TAB PO SCH ×2 (08:31→20:23)
[2017-09-03] MEDS: HYDROCHLOROTHIAZIDE 25 MG TAB PO SCH (08:32)
[2017-09-03] MEDS: PANTOPRAZOLE SODIUM 40 MG VIAL IV PUSH SCH (08:32)
[2017-09-03] MEDS: CALCIUM ACETATE 667 MG CAP PO SCH ×3 (08:32→17:57)
--- NOTE | 2017-09-03 08:45 | MG ---
cc: WARNER LACEY M.D. Lab No: [id number] Date: 09/02/2017 Age: ___ Sex: M Race: __ TECHNIQUE 17 channel EEG. DESCRIPTION The background rhythm reveals generalized slowing in the delta frequency at about 3-4 Hz, amplitude is 10-30 microvolts. There is occasional muscle artifact present. No lateralizing features are identified. No epileptiform discharges were seen. There is occasionally EKG artifact. Photic stimulation was done with no driving response present. INTERPRETATION Abnormal study consistent with a severe encephalopathy. MD DARSHAN Morales/LESLY /7:41 AM /8:45 AM
[2017-09-03] MEDS: fentaNYL DRIP 250 ML IV PRN ×2 (09:17→22:47)
[2017-09-03] MEDS ORDERED: ROCURONIUM INJ 50 MG/5 ML VIAL ONE (09:22)
[2017-09-03] MEDS ORDERED: ROCURONIUM INJ 50 MG/5 ML SYRINGE IV PUSH ONE (10:15)
[2017-09-03] MEDS ORDERED: ROCURONIUM INJ 50 MG/5 ML VIAL IV PUSH ONE (11:00)
--- NOTE | 2017-09-03 12:36 | HHI.CCPN ---
Subjective Remarks/Hospital Course Hospital Course: 46 y/o man with longstanding hypertension and previous CVA presents obtunded with new neurological symptoms noticed prior to arrival. Timeline unclear. Required intubation in ED for airway protection. CT head shows left thalamic bleed and shift away from bleed. Toxicology screen pending. Subjective: 08/30: encephalopathy persists. bp under better control, still on cardene. on sedation vacation, moves left side spontaneously but nothing on right. 08/31: overnight, severely agitated, requiring high dose sedation. also, lambert obstructed, new lambert placed with improvement in obstruction. this morning, RAFAELA with Cr up to 3. urine Na < 10, suggestive of pre-renal etiology. continued ivf. high peak pressures on vent. suction lavage with thick tenacious secretions. bronch with left lobe mucous plugging. bronchospasm a significant problem requiring iv magnesium and duonebs. finally attempted small paralytic dose with improvement in abdominal breathing and fighting ventilator. 09/01: No improvement in neuro exam, intermittent jerking movements noted by the RN no seizure. Creatinine for urine output adequate. I have consulted nephrology. We'll check CT of the head repeat EEG tomorrow a.m. 09/02: Clinically remains same. Did not tolerate sedation vacation, became hypertensive. CT head today showed slight improvement in L thalamic and IVH. Dr. Tinajero is the neurosurgeon, Dr. Jhaveri covering 09/03: Still unable to tolerate sedation vacation. Becomes very asynchronous with the vent with desaturations. Discussed with daughters about possible tracheostomy, they want to discuss with their mom, patient's ex -. Creatinine has worsened to 5.1 but no acute indication for dialysis. Will check ABG urine output 1.8 L in 24 hours Objective Vital Signs Date Time Temp Pulse Resp B/P (MAP) Pulse Ox O2 Delivery O2 Flow Rate FiO2 09/03/17 12:25 96 45 09/03/17 10:00 72 09/03/17 08:00 98.4 18 133/76 (95) 09/03/17 07:00 Mechanical Ventilator Intake and Output 09/03/17 09/03/17 09/04/17 08:00 16:00 00:00 Intake Total 1278 ml Output Total 1025 ml Balance 253 ml Result Diagram: 09/03/17 03009/03/17 0305 Objective Remarks Gen: Intubated sedated Head: Atraumatic. Conjunctivae injected. Neck: Supple, orally intubated. Lungs: Bilateral scattered wheezing Heart: Tachycardia, RR. Intermittently hypertensive Abdomen: Mildly distended, No guarding. Extremities: Warm, well perfused. Neuro: RASS -4 on propofol and fentanyl. moves LUE/LLE spontaneously, no movement on right. does not follow commands. w/d to pain left side. pupils equal , round, reactive. A/P Problem List: (1) Intracranial hemorrhage ICD Code: I62.9 - Nontraumatic intracranial hemorrhage, unspecified Status: Acute (2) Hemorrhagic stroke ICD Code: I61.9 - Nontraumatic intracerebral hemorrhage, unspecified Status: Acute (3) Hypertensive emergency ICD Code: I10 - Hypertensive emergency Status: Acute Assessment and Plan Assessment: 46yM with left thalamic hypertensive hemorrhagic IPH, ICH score 2. remains off pathway, poor neurologic exam. continue carvedilol and tight bp control. frequent neuro checks. cannot SBT or extubate while encephalopathic and hypertensive. CT head and EEG in am Active Problems: Acute encephalopathy Left Thalamic Hemorrhage, with IV extension Intracerebral Hemorrhage, ICH score 2 Acute hypoxic and Hypercarbic Respiratory failure Hypertensive Emergency Ventilatory Dyssynchrony Agitated Delirium Acute kidney failure Plan: - Unable to do sedation vacation due to severe ventilator synchrony and desaturation - Strongly recommend tracheostomy for patient comfort and also to reduce sedation - Seroquel 100mg po q8hr for agitation. Haldol 5mg iv q4h prn for breakthrough agitation - oxycodone 10mg po q4h. Fentanyl, propofol. Very hypertensive on attempted sedation vacation - Requiring prn boluses of neuromuscular blockade if we cannot get control of vent synchrony. - Unable to perform SBT - CT head 09/02 improving left thalamic and intraventricular hemorrhage, EEG severe encephalopathy - D/W Dr. Tinajero 09/01, frequent neuro checks - goal SBP < 140 - Cardene/labetalol/hydralazine prn - Renal ultrasound, nephrology consult. Dr. Rachel has seen the patient no indication for emergency dialysis, check ABG - TF at goal, bowel regimen - SCDs. hold pharmacologic DVT prophylaxis given ICH. - Protonix. - If no significant clinical improvement by next week proceed with tracheostomy/ PEG, if family agreeable Overall impression: Critically ill with hypertensive emergency and thalamic bleed. worsening respiratory status, agitated delirium, now with worsening RAFAELA. Prognosis guarded Critical Care 32 mins aside from procedures. Ladan Pierre MD Sep 03, 2017 12:36
--- NOTE | 2017-09-03 13:02 | HHI.NPPN ---
Subjective Interval History sedated on the vent. Non oliguric. GFR is worse. Objective Data Data 09/03/17 09/04/17 19:00 07:00 Intake Total 340 ml Balance 340 ml Intake IV Total 340 ml Vital Signs Date Time Temp Pulse Resp B/P (MAP) Pulse Ox O2 Delivery O2 Flow Rate FiO2 09/03/17 12:25 96 45 09/03/17 12:00 45 09/03/17 12:00 77 09/03/17 12:00 97.9 77 18 132/66 (88) 99 09/03/17 10:00 72 09/03/17 08:00 98.4 76 18 133/76 (95) 96 09/03/17 08:00 76 09/03/17 08:00 45 09/03/17 07:46 77 155/81 09/03/17 07:30 97 45 09/03/17 07:00 97 Mechanical Ventilator 40 09/03/17 06:00 77 09/03/17 05:56 77 124/63 09/03/17 04:04 100 40 09/03/17 04:00 98.6 74 18 120/62 (81) 92 09/03/17 04:00 40 09/03/17 04:00 74 09/03/17 02:00 81 09/03/17 01:59 81 145/73 09/03/17 00:06 95 40 09/03/17 00:00 82 09/03/17 00:00 99.0 82 18 141/69 (93) 94 09/03/17 00:00 40 09/02/17 22:22 18 09/02/17 22:00 82 09/02/17 21:33 87 172/74 09/02/17 20:00 99.3 74 19 151/76 (101) 100 09/02/17 20:00 74 09/02/17 20:00 40 09/02/17 19:57 99 40 09/02/17 19:00 98 Mechanical Ventilator 40 09/02/17 18:00 77 09/02/17 17:29 98 40 09/02/17 16:09 97 40 09/02/17 16:00 98.8 79 18 130/60 (83) 97 09/02/17 16:00 40 09/02/17 16:00 79 09/02/17 15:00 77 105/54 09/02/17 14:15 81 112/55 09/02/17 14:00 82 -: 09/03/17 0305 09/03/17 0305 Physical Exam General Appearance: Well Developed Neck Neck Exam: Neck Supple Pulmonary Resp Remarks vented breath sounds. Cardiology CV Exam: Regular, Normal Sinus Rhythm Gastrointestinal/Abdomen GI Exam: Distended GI Remarks obese. On TF Genitourinary Exam: Clear Urine Extremeties Extremities Exam: Trace Edema Neurologic Neuro Exam: Sedated Assessment/Plan Problem List: (1) Acute kidney injury ICD Codes: N17.9 - Acute kidney failure, unspecified Status: Acute Plan: Likely due to renal hypoperfusion resulting from normalization of BP. Patient had abnormal renal function on arrival, it is possible that he had underlying CKD: could have been due to hypertensive nephrosclerosis. RAFAELA also could have been due to malignant hypertension, and resulting target organ injury. Patient likely has underlying stage III CKD. No immediate need for dialysis. Avoid nephrotoxic agents. May need dialysis tomorrow. Discussed with Dr. Pierre. (2) Hemorrhagic stroke ICD Codes: I61.9 - Nontraumatic intracerebral hemorrhage, unspecified Status: Acute Plan: Non surgical management. (3) Hypertension ICD Codes: I10 - Hypertension Status: Chronic Plan: On Cardene drip off and on. Adolph Rachel MD Sep 03, 2017 13:02
[2017-09-03] MEDS ORDERED: POTASSIUM CHLORIDE INJ 30 MEQ in SODIUM CHLORIDE 0.9% INJ 100 ML IV-CENTRAL ONE (14:00)
--- NOTE | 2017-09-03 16:46 | HHI.HCPN ---
Reason for visit a. To assist with evaluation and management of symptoms including: Pain and dyspnea. b. To assist medical decision maker(s) with: better understanding of current medical conditions; weighing benefits/burdens of medical treatment options; making medical treatment decisions. . Subjective/Interval History Mr. Matos is a 46-year-old male with a medical history significant for TIA, hypertension and migraines. Patient presented to ED via EMS on 08/28/[address]. Head [address] revealing acute hemorrhaic stroke in the right thalamus with extension of the lateral third ventricles with a shift onto the right side of 6 mm. patient was subsequently intubated and placed on mechanical ventilation. Palliative care was consulted for further clarifications of goals of care and emotional support. Patient seen in surgical ICU. He remains intubated on mechanical ventilation. Sedated on propofol, fentanyl drip. Has been unable to tolerate sedation medication secondary to vent asynchrony with desaturation, hypotension. Patient intermittently requiring neuroblockade PRN for vent asynchrony, received rocuronium today. Patient currently on full ventilator support, 45% FiO2. Renal function has continue to worsen, BUN/creatinine 52/5.11 from 47/ 4.63 yesterday. Nephrology, Dr. Rachel following. Patient likely to require hemodialysis tomorrow. Max temperature yesterday 100.4, max temp today 99.3. Head CT 09/03/17 revealing slowly decreasing left thalamic and intraventricular hemorrhage, decreased rightward midline shift, currently approximately 2.5 mm. No new hemorrhage or acute process noted. EEG 09/03/17 consistent with severe encephalopathy. No seizures notes. Neurosurgery following. Bedside conversation with patient's ex- Janet Matos and 2 daughters Kary. Medical update provided. Reviewed current medical treatment and recommendations. Reviewed likely trajectory of illness to include prolonged hospitalization and rehabilitation. Reviewed tracheostomy and PEG tube placement in the setting of respiratory failure. Provided tracheostomy brochure/information guide by the [employer] listing risks and benefits of trach in an adult patient. Reviewed that at this time is early to determine neurological deficit secondary to brain bleed, patient presented with right-sided hemiparesis. Review likelihood of prolonged hospitalization and rehabilitation. All questions were answered in great detail. Family in agreement electing to proceed with tracheostomy and PEG tube placement early next week as recommended by asset protection agent. Family receptive to palliative care follow-ups. Case discussed with Dr. Pierre. . Family/friend interactions See interval note. . Advance Directives Living Will: Never completed Health Care Surrogate: Never completed Durable Power of Manager Front: Never completed Advance Directive Specifics Health Care Surrogate(s): No advance directives completed as per patient's family. Patient is . As per [place] law, healthcare proxy decision making falls to the majority of patient's adult children for which he has 3 (4th child is 4 years old). Daughter Shannan, daughter Nichole and son Hadley Maddox wish to participate. . Significant change in goals: Full code. Aggressive management to include tracheostomy and PEG tube placement early next week. . Objective Vital Signs Date Time Temp Pulse Resp B/P (MAP) Pulse Ox O2 Delivery O2 Flow Rate FiO2 09/03/17 14:00 76 09/03/17 12:25 96 45 09/03/17 12:00 45 09/03/17 12:00 77 09/03/17 12:00 97.9 77 18 132/66 (88) 99 09/03/17 10:00 72 09/03/17 08:00 98.4 76 18 133/76 (95) 96 09/03/17 08:00 76 09/03/17 08:00 45 09/03/17 07:46 77 155/81 09/03/17 07:30 97 45 09/03/17 07:00 97 Mechanical Ventilator 40 09/03/17 06:00 77 09/03/17 05:56 77 124/63 09/03/17 04:04 100 40 09/03/17 04:00 98.6 74 18 120/62 (81) 92 09/03/17 04:00 40 09/03/17 04:00 74 09/03/17 02:00 81 09/03/17 01:59 81 145/73 09/03/17 00:06 95 40 09/03/17 00:00 82 09/03/17 00:00 99.0 82 18 141/69 (93) 94 09/03/17 00:00 40 09/02/17 22:22 18 09/02/17 22:00 82 09/02/17 21:33 87 172/74 09/02/17 20:00 99.3 74 19 151/76 (101) 100 09/02/17 20:00 74 09/02/17 20:00 40 09/02/17 19:57 99 40 09/02/17 19:00 98 Mechanical Ventilator 40 09/02/17 18:00 77 09/02/17 17:29 98 40 Intake & Output 09/03/17 09/03/17 07:00 19:00 Intake Total 1016.1 ml 340 ml Output Total 1025 ml Balance -8.9 ml 340 ml Intake IV Total 328.1 ml 340 ml Tube Feeding 568 ml Other 120 ml Output Urine Total 925 ml Stool Total 100 ml Physical Exam CONSTITUTIONAL/GENERAL: This is an obese patient intubated on mechanical ventilation. TUBES/LINES/DRAINS: ETT, OG, SCDs, Coleman catheter, PIV's. SKIN: No jaundice, rashes, or lesions. No wounds seen anteriorly. Skin temperature appropriate. Not diaphoretic. HEAD: Atraumatic. Normocephalic. EYES: Pupils equal and round and reactive. No scleral icterus. No injection or drainage. ENT: Unable to evaluate hearing secondary to clinical condition. Nose without bleeding or purulent drainage. Moist oral mucosa. NECK: Trachea midline. Supple. CARDIOVASCULAR: Regular rate and rhythm without murmurs, gallops, or rubs. Peripheral pulses symmetric. RESPIRATORY/CHEST: Symmetric, unlabored respirations. Mild inspiratory wheezes bilaterally. Intubated on mechanical ventilation. GASTROINTESTINAL: Abdomen obese, large, round, soft. Unable to appreciate hepatomegaly secondary to body habitus. Bowel sounds present. GENITOURINARY: Without palpable bladder distension. Coleman catheter in place. MUSCULOSKELETAL: Extremities without clubbing, cyanosis, or edema. No mottling or clubbing. NEUROLOGICAL: Sedated. Unresponsive to verbal or tactile stimuli. PSYCHIATRIC: Unable to evaluate secondary to clinical condition. Appears calm. . Diagnostic Tests Laboratory Laboratory Tests Test 08/31/17 17:40 09/01/17 04:50 09/02/17 03:45 09/03/17 03:05 Urine Eosinophils NONE SEEN /HPF (NONE SEEN) Urine Random Creatinine 163.5 MG/DL Urine Random Sodium 10 MEQ/L White Blood Count 8.9 TH/MM3 (4.0-11.0) 7.5 TH/MM3 (4.0-11.0) 7.7 TH/MM3 (4.0-11.0) Red Blood Count 4.05 MIL/MM3 (4.50-5.90) 4.07 MIL/MM3 (4.50-5.90) 4.12 MIL/MM3 (4.50-5.90) Hemoglobin 11.0 GM/DL (13.0-17.0) 10.8 GM/DL (13.0-17.0) 11.0 GM/DL (13.0-17.0) Hematocrit 33.4 % (39.0-51.0) 33.1 % (39.0-51.0) 33.2 % (39.0-51.0) Mean Corpuscular Volume 82.4 FL (80.0-100.0) 81.4 FL (80.0-100.0) 80.6 FL (80.0-100.0) Mean Corpuscular Hemoglobin 27.1 PG (27.0-34.0) 26.5 PG (27.0-34.0) 26.8 PG (27.0-34.0) Mean Corpuscular Hemoglobin Concent 32.8 % (32.0-36.0) 32.5 % (32.0-36.0) 33.2 % (32.0-36.0) Red Cell Distribution Width 15.0 % (11.6-17.2) 15.5 % (11.6-17.2) 15.1 % (11.6-17.2) Platelet Count 177 TH/MM3 (150-450) 192 TH/MM3 (150-450) 230 TH/MM3 (150-450) Mean Platelet Volume 9.8 FL (7.0-11.0) 10.1 FL (7.0-11.0) 9.5 FL (7.0-11.0) Blood Urea Nitrogen 42 MG/DL (7-18) 47 MG/DL (7-18) 52 MG/DL (7-18) Creatinine 3.93 MG/DL (0.60-1.30) 4.63 MG/DL (0.60-1.30) 5.11 MG/DL (0.60-1.30) Random Glucose 155 MG/DL (74-106) 138 MG/DL (74-106) 180 MG/DL (74-106) Calcium Level 8.6 MG/DL (8.5-10.1) 9.1 MG/DL (8.5-10.1) 9.0 MG/DL (8.5-10.1) Sodium Level 140 MEQ/L (136-145) 142 MEQ/L (136-145) 143 MEQ/L (136-145) Potassium Level 3.7 MEQ/L (3.5-5.1) 3.4 MEQ/L (3.5-5.1) 3.2 MEQ/L (3.5-5.1) Chloride Level 106 MEQ/L (98-107) 107 MEQ/L (98-107) 108 MEQ/L (98-107) Carbon Dioxide Level 24.9 MEQ/L (21.0-32.0) 26.2 MEQ/L (21.0-32.0) 26.6 MEQ/L (21.0-32.0) Anion Gap 9 MEQ/L (5-15) 9 MEQ/L (5-15) 8 MEQ/L (5-15) Estimat Glomerular Filtration Rate 20 ML/MIN (>89) 17 ML/MIN (>89) 15 ML/MIN (>89) Test 09/03/17 13:10 Blood Gas Puncture Site LT RADIAL Blood Gas Patient Temperature 98.6 Blood Gas HCO3 26 mmol/L (22-26) Blood Gas Base Excess -0.3 mmol/L (-2-2) Blood Gas Oxygen Saturation 94 % (90-100) Arterial Blood pH 7.27 (7.380-7.420) Arterial Blood Partial Pressure CO2 57 mmHg (38-42) Arterial Blood Partial Pressure O2 90 mmHg (61-120) Arterial Blood Oxygen Content 14.9 Vol % (12.0-20.0) Arterial Blood Carboxyhemoglobin 0.7 % (0-4) Arterial Blood Methemoglobin 1.3 % (0-2) Blood Gas Hemoglobin 11.2 G/DL (12.0-16.0) Oxygen Delivery Device VENTILATOR Blood Gas Ventilator Setting PRVC18/550/1.1/+8 Blood Gas Inspired Oxygen 45 % Result Diagram: 09/03/175 09/03/17 0305 Microbiology Microbiology Date/Time Source Procedure Growth Status 08/31/17 06:05 Blood Peripheral Aerobic Blood Culture - Preliminary NO GROWTH IN 3 DAYS Resulted 08/31/17 06:05 Blood Peripheral Anaerobic Blood Culture - Preliminary NO GROWTH IN 3 DAYS Resulted 08/30/17 09:10 Sputum Endotracheal Gram Stain - Final Complete 08/30/17 09:10 Sputum Endotracheal Sputum Culture - Final MODERATE GROWTH NORMAL RESPIRATORY ESTELITA Complete 08/31/17 05:30 Urine Catheterized Urine Urine Culture - Final NO GROWTH IN 48 HOURS. Complete Imaging Last [address] 09/02/17 0600 Signed Impressions: Service Date/Time: , September 02, 2017 03:11 - CONCLUSION: 1. Slowly decreasing left thalamic and intraventricular hemorrhage. Decreased rightward midline shift, currently approximately 2.5 mm. 2. No new hemorrhage or other acute intracranial abnormality. 3. Paranasal sinusitis has developed. Ignacio Lares MD Procedures * 08/28/17 -endotracheal intubation * 08/31/17 -therapeutic bronchoscopy . Assessment and Plan Disease Oriented Problem List: (1) Hemorrhagic stroke (2) Intracranial hemorrhage (3) Hypertensive emergency (4) Acute kidney injury (5) Acute encephalopathy Symptom Scale: (1) Dyspnea 0-10 Scale: Unable to quantify Comment: Secondary to acute respiratory failure. Remains intubated on mechanical ventilation. (2) Pain 0-10 Scale: Unable to quantify Comment: On fentanyl drip. Pertinent Non-Medical Issues Psychosocial: Patient originally from [facility]. He is the youngest of 4 siblings. High school education. Worked in his [employer] business [id number]. 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 Patient is , has 4 children. No service. Spiritual: Hindu lenny. Legal: No advance directives completed as per patient's family. Ethical issues impacting care: Patient unable to participate in medical decision -making secondary to clinical condition. 3 adult children serving as healthcare proxy decision makers. . Important Contacts Daughter Shannan Matos , Daughter Nichole Matos Son Hadley Matos Ex- (mother of his children) Janet Matos . Patient's father Jem Matos . . Prognosis Mr. Matos is a 46-year-old male with a medical history significant for TIA, uncontrolled hypertension and migraines. Patient presented to ED via EMS on as stroke alert. Patient was last seen with normal neurological function approximately 3-1/2 hours prior to ED arrival. Upon ED arrival, GCS of 7, blood pressure 238/153. He subsequently had a vomiting episode requiring emergent intubation and mechanical ventilation. Head CT revealing acute hemorrhaic stroke in the right thalamus with extension of the lateral third ventricles with a shift onto the right side of 6 mm. chest x-ray revealing left lower lobe consolidation and patchy infiltrates in the central right lung. Clinical course complicated by acute encephalopathy, acute hypoxemic and hypercarbic respiratory failure and acute kidney injury. Patient remains a high risk for further complications, continue decline and . Condition guarded at this time. . Code Status: Full Code Plan * CODE STATUS: Full code. * HEALTHCARE DECISION-MAKING: Patient lacking capacity for medical decision- making secondary to clinical condition , encephalopathy, intubated on mechanical ventilation. Unclear at this time if patient will regain capacity. No advance directives completed as per patient's family. Patient is . As per [place] law, healthcare proxy decision making falls to the majority of patient's adult children for which he has 3 (4th child is 4 years old). Daughters Kary and son Hadley Maddox. All wishing to participate. * GOALS OF CARE: Family electing for aggressive medical management to include FULL code, as well as tracheostomy and PEG tube placement early next week. Lengthy conversation with patient's family regarding likely trajectory of illness to include prolonged hospitalization and rehabilitation. Family with multiple questions regarding reversibility of tracheostomy/PEG tube. Provided tracheostomy brochure/information guide by the [employer]. All questions were answered in great detail. Family receptive to palliative care follow up. * SYMPTOMS: = Dyspnea, secondary to acute respiratory failure. Patient remains intubated on mechanical ventilation. Has required PRN neuromuscular blockade for vent asynchrony. = Pain: Secondary to intubation, medical interventions, bedbound. Currently on fentanyl drip and oxycodone 10 mg every 4 hours. = Bowels: MiraLAX, lactulose and Melina-Colace [id number]. Dulcolax suppository available. = Restlessness/agitation: Patient has been placed on Seroquel 100 mg every 8 hours and Haldol as needed. * Case discussed with Dr. Pierre and bedside RN. * Palliative care contact information has been provided to patient's family. * Palliative care will continue to follow-up for further clarifications of goals of care, provide emotional support as patient's clinical course continues to evolve. . Time Spent Total Floor Time (mins): 33 (Total time to include review of medical records, physical exam, goals of care conversation with patient's ex- and 2 daughters Shannan and Nichole, case discussion with Dr. Pierre and bedside RN.) >50% Counseling/Coord of Care: Yes Attestation To help prompt me to consider important information that might be impacting today's encounter and assessment, information from prior notes written by myself or my colleagues may have been "brought forward" into today's note. My signature on this note, however, is an attestation that I personally performed the exam, history, and/or decision-making noted today, and, unless otherwise indicated, the interactions with patient, family, and staff as well as the review of records all occurred today. I also attest that the listed assessment and stated plan reflect my best clinical judgment today based on the combination of historical information, prior notes, and today's exam/ interactions. When time spent is documented, it refers only to time spent today by the signer, or if indicated, combined time spent today by collaborating physician/nurse practitioner. Soniya Elliott Sep 03, 2017 16:46
[2017-09-03] MEDS: ATORVASTATIN 40 MG TAB PO SCH (20:23)
--- NOTE | 2017-09-03 23:38 | HHI.NSPN ---
History Chief Complaint: intubated and sedated Interval History 46-year-old male with history of hypertension who was brought to the emergency room per E VAC after being found with altered mental status, right hemiparesis. He had reportedly been seen to be normal approximately 3-1/2 hours prior. Systolic blood pressure greater than 260/130 on initial evaluation. No seizure activity reported. Positive emesis. Per emergency room personnel the patient was responding verbally, difficulty raising his right arm upon initial arrival. He was intubated in the emergency room and a stat CT scan accomplished which has revealed a primarily left thalamic intracranial hemorrhage. 09/01/17: Patient remains intubated and sedated. 09/02/17: Follow-up CT scan head with mild initial decreased intraventricular hemorrhage, no new thalamic hemorrhage, mild decreased mass effect. 09/03/17: Remains on propofol and fentanyl IV for ventilator control. Positive agitation with decreased sedation Exam Results Vital Signs Date Time Temp Pulse Resp B/P (MAP) Pulse Ox O2 Delivery O2 Flow Rate FiO2 09/03/17 22:00 81 09/03/17 20:00 Mechanical Ventilator 40 09/03/17 19:31 99 09/03/17 16:00 99.1 22 140/89 (106) Intake and Output 09/03/17 09/03/17 09/04/17 08:00 16:00 00:00 Intake Total 1278 ml 1033 ml Output Total 1025 ml 1000 ml Balance 253 ml 33 ml Physical Examination Intubated and sedated on propofol and fentanyl. No response to voice No eye opening to voice or deep pain Pupils 2 mm nonreactive Disconjugate oculocephalics Mild flexion left upper extremity deep pain Lab, Micro, Other Results 09/02/17 CT scan head images reviewed by the undersigned. There is mild decrease in the size of the left thalamic intracranial hemorrhage and intraventricular hemorrhage with mild decreased mass effect. Laboratory Tests Test 09/03/17 03:05 09/03/17 13:10 White Blood Count 7.7 TH/MM3 Red Blood Count 4.12 MIL/MM3 Hemoglobin 11.0 GM/DL Hematocrit 33.2 % Mean Corpuscular Volume 80.6 FL Mean Corpuscular Hemoglobin 26.8 PG Mean Corpuscular Hemoglobin Concent 33.2 % Red Cell Distribution Width 15.1 % Platelet Count 230 TH/MM3 Mean Platelet Volume 9.5 FL Blood Urea Nitrogen 52 MG/DL Creatinine 5.11 MG/DL Random Glucose 180 MG/DL Calcium Level 9.0 MG/DL Sodium Level 143 MEQ/L Potassium Level 3.2 MEQ/L Chloride Level 108 MEQ/L Carbon Dioxide Level 26.6 MEQ/L Anion Gap 8 MEQ/L Estimat Glomerular Filtration Rate 15 ML/MIN Blood Gas Puncture Site LT RADIAL Blood Gas Patient Temperature 98.6 Blood Gas HCO3 26 mmol/L Blood Gas Base Excess -0.3 mmol/L Blood Gas Oxygen Saturation 94 % Arterial Blood pH 7.27 Arterial Blood Partial Pressure CO2 57 mmHg Arterial Blood Partial Pressure O2 90 mmHg Arterial Blood Oxygen Content 14.9 Vol % Arterial Blood Carboxyhemoglobin 0.7 % Arterial Blood Methemoglobin 1.3 % Blood Gas Hemoglobin 11.2 G/DL Oxygen Delivery Device VENTILATOR Blood Gas Ventilator Setting PRVC18/550/1.1/+8 Blood Gas Inspired Oxygen 45 % Medical Decision Making Impression and Plan Impression: 1. No improvement in neurologic exam since admission following relatively large thalamic intracranial hemorrhage. Recommendations: Discussed with the patient's family in the room as well as with his ex- on the telephone. He is off nicardipine. Systolic blood pressure stable today Remains on ventilatory support with IV sedation due to agitation. Patient's family again advised of the severe nature of the hemorrhage. I advised them that prognosis is uncertain at this point. It is likely however that he will have a protracted recovery. There is no guarantee that he will have any significant improvement in his mental functions. Palliative care as following Orville Tinajero MD Sep 03, 2017 23:38
[2017-09-04] VITALS (19 sets, daily range): BP systolic 136–159; BP diastolic 67–85; PULSE 76–86; RESP 20–24; TEMP 99.3–100.8; O2SAT 95–100
[2017-09-04] MEDS: LABETALOL HCL 100 MG/20 ML VIAL IV PUSH PRN ×2 (00:15→02:53)
[2017-09-04] MEDS: CHLORHEXIDINE GLUCONATE 2 % 1 PACK (2 CLOTHS) TOP SCH (00:38)
[2017-09-04] MEDS: PROPOFOL 1000 MG/100 ML INJ 100 ML IV PRN ×9 (01:20→23:32)
[2017-09-04] MEDS: ACETAMINOPHEN 325 MG TAB PO PRN ×2 (02:58→10:23)
[2017-09-04] MEDS: niCARdipine INJ 50 MG in SODIUM CHLORID 0.9% 500 ML INJ 480 ML IV PRN ×4 (03:54→21:07)
[2017-09-04 05:38] LABS: AUTOMATED NEUTROPHIL # 5.9 TH/MM3 (1.8-7.7); BASOPHIL # 0.1 TH/MM3 (0-0.2); BASOPHIL % 0.8 % (0.0-2.0); EOSINOPHIL # 0.1 TH/MM3 (0-0.4); EOSINOPHIL % 1.2 % (0.0-4.0); HEMATOCRIT 33.6 % (39.0-51.0); HEMOGLOBIN 11.2 GM/DL (13.0-17.0); LYMPH % 9.7 % (9.0-44.0); LYMPHOCYTE # 0.8 TH/MM3 (1.0-4.8); MEAN CELL VOLUME 81.7 FL (80.0-100.0); MEAN CORPUSCULAR HEMOGLOBIN 27.2 PG (27.0-34.0); MEAN CORPUSCULAR HGB CONC 33.3 % (32.0-36.0); MEAN PLATELET VOLUME 9.4 FL (7.0-11.0); MONO % 14.2 % (0.0-8.0); MONOCYTE # 1.1 TH/MM3 (0-0.9); NEUT % 74.1 % (16.0-70.0); PLATELET COUNT 247 TH/MM3 (150-450); RED BLOOD COUNT 4.11 MIL/MM3 (4.50-5.90); RED CELL DISTRIBUTION WIDTH 15.5 % (11.6-17.2); WHITE BLOOD COUNT 7.9 TH/MM3 (4.0-11.0)
[2017-09-04] MEDS: cloNIDine HCL 0.1 MG TAB PO SCH ×3 (05:51→21:40)
[2017-09-04] MEDS: QUEtiapine FUMARATE 100 MG TAB PO SCH ×3 (05:51→21:40)
[2017-09-04] MEDS: oxyCODONE HCL ORAL CONC 5 MG/0.25 ML SYRINGE PO SCH ×5 (05:51→19:58)
[2017-09-04] MEDS: PROPRANOLOL HCL 10 MG TAB PO SCH ×4 (05:51→23:32)
[2017-09-04 05:59] LABS: ALKALINE PHOSPHATASE 65 U/L (45-117); TOTAL BILIRUBIN ADULT 0.3 MG/DL (0.2-1.0); TOTAL PROTEIN 7.1 GM/DL (6.4-8.2)
[2017-09-04 06:03] LABS: ALBUMIN 2.4 GM/DL (3.4-5.0); ALT (GPT) 32 U/L (12-78); AST (GOT) 46 U/L (15-37); BICARBONATE 28.8 MEQ/L (21.0-32.0); BLOOD UREA NITROGEN 55 MG/DL (7-18); CALCIUM 9.1 MG/DL (8.5-10.1); CHLORIDE 107 MEQ/L (98-107); CREATININE 5.17 MG/DL (0.60-1.30); GLOMERULAR FILTRATION RATE 15 ML/MIN (>89); GLUCOSE,RANDOM 198 MG/DL (74-106); MAGNESIUM 3.1 MG/DL (1.5-2.5); SODIUM (NA) 144 MEQ/L (136-145)
--- NOTE | 2017-09-04 06:07 | RADRPT ---
EXAM DATE/TIME: 09/04/2017 04:42 [facility] COMPARISON: CHEST SINGLE AP, August 31, 2017, 12:00. INDICATIONS : Intracranial hemorrhage. Evaluate for pneumonia shortness of breath. Patient remains intubated. MEDICAL HISTORY : Stroke. Hypertension SURGICAL HISTORY : None. ENCOUNTER: Subsequent ACUITY: 3 days PAIN SCORE: Non-responsive. LOCATION: Bilateral chest FINDINGS: A single AP semierect view of the chest was obtained. The patient is mildly rotated. The endotracheal tube remains in place with the tip approximately 2 cm above the connie. The nasogastric tube is agai n noted with the tip in the stomach. The study remains Midinspiratory and the heart size appears mode rately enlarged. There is hazy opacity in the left perihilar region. There is no distinct effusion. CONCLUSION: 1. Rotated single view examination with hazy opacity in the left perihilar region. 2. The heart size remains enlarged. Angelo Conn MD on September 04, 2017 at 6:04 Board Certified Radiologist. This report was verified electronically.
[2017-09-04] MEDS: PIPERACIL-TAZO 2.25 GM PREMIX 50 ML IV SCH ×3 (06:13→22:08)
[2017-09-04] MEDS: INSULIN NovoLIN REGULAR SUPPLEMENTAL SCALE SQ SCH ×4 (06:18→23:31)
[2017-09-04] MEDS: CHLORHEXIDINE 0.12% (ORAL KIT) 15 ML CUP MT SCH ×2 (07:35→19:57)
[2017-09-04] MEDS: fentaNYL DRIP 250 ML IV PRN ×2 (08:49→19:59)
[2017-09-04] MEDS: BISACODYL 10 MG SUPP RECTAL SCH (09:00)
[2017-09-04] MEDS: LACTULOSE SYRUP 20 GM/30 ML CUP PO SCH ×2 (09:00→19:57)
[2017-09-04] MEDS: DOCUSATE SODIUM 50 MG/SENNA 8.6 MG TAB PO SCH ×2 (09:00→19:58)
[2017-09-04] MEDS: POLYETHYLENE GLYCOL 17 GM PKG PO SCH ×2 (09:00→19:58)
[2017-09-04] MEDS: PANTOPRAZOLE SODIUM 40 MG VIAL IV PUSH SCH (09:06)
[2017-09-04] MEDS: LISINOPRIL 20 MG TAB PO SCH (09:07)
[2017-09-04] MEDS: CALCIUM ACETATE 667 MG CAP PO SCH ×3 (09:08→17:46)
[2017-09-04] MEDS: HYDROCHLOROTHIAZIDE 25 MG TAB PO SCH (09:08)
--- NOTE | 2017-09-04 09:41 | HHI.NSPN ---
(Jeison Boyle) History Chief Complaint: intubated and sedated (Jeison Boyle) Interval History 46-year-old male with history of hypertension who was brought to the emergency room per E VAC after being found with altered mental status, right hemiparesis. He had reportedly been seen to be normal approximately 3-1/2 hours prior. Systolic blood pressure greater than 260/130 on initial evaluation. No seizure activity reported. Positive emesis. Per emergency room personnel the patient was responding verbally, difficulty raising his right arm upon initial arrival. He was intubated in the emergency room and a stat CT scan accomplished which has revealed a primarily left thalamic intracranial hemorrhage. 09/01/17: Patient remains intubated and sedated. 09/02/17: Follow-up CT scan head with mild initial decreased intraventricular hemorrhage, no new thalamic hemorrhage, mild decreased mass effect. 09/03/17: Remains on propofol and fentanyl IV for ventilator control. Positive agitation with decreased sedation 09/04/17: Pt sedated on Diprivan and Fentanyl drip. Not following commands. Pt on Cardene drip. Intubated. (Jeison Boyle) System Review Comments Not able to obtain given clinical condition. (Jeison Boyle) Exam Results Vital Signs Date Time Temp Pulse Resp B/P (MAP) Pulse Ox O2 Delivery O2 Flow Rate FiO2 09/04/17 08:48 80 145/77 09/04/17 08:00 40 09/04/17 08:00 99.3 24 96 09/04/17 07:15 Mechanical Ventilator Intake and Output 09/04/17 09/04/17 09/05/17 08:00 16:00 00:00 Intake Total 1301 ml Output Total 1452 ml Balance -151 ml (Jeison Boyle) Physical Examination General: Pt intubated and sedated in no acute distress. Eyes: 2mm bilaterally NR bilaterally. Sclera anicteric. Resp: Intubated. CTA bilaterally. PRVC rate 20. Peep 8. FiO2 40%. Heart: NSR no murmurs. Cardene drip. Abd: Distended but soft. Positive bs. Skin: No cyanosis or erythema. SCDs in place. Muscle: Not following for muscle testing. Pt remains sedated. Mild withdrawal with LUE to pain in upper chest. Neuro: Pt sedated on Diprivan and Fentanyl drips. Not following commands. Pupils 2mm bilaterally NR bilaterally. (Jeison Boyle) Lab, Micro, Other Results Last Impressions Chest X-Ray 09/04/17 06 Signed Impressions: Service Date/Time: Monday, September 04, 2017 04:42 - CONCLUSION: 1. Rotated single view examination with hazy opacity in the left perihilar region. 2. The heart size remains enlarged. Angelo Conn MD Head CT 09/02/17 06 Signed Impressions: Service Date/Time: August 03:11 - CONCLUSION: 1. Slowly decreasing left thalamic and intraventricular hemorrhage. Decreased rightward midline shift, currently approximately 2.5 mm. 2. No new hemorrhage or other acute intracranial abnormality. 3. Paranasal sinusitis has developed. Ignacio Lares MD Renal Ultrasound 08/31/17 0000 Signed Impressions: Service Date/Time: Thursday, August 31, 2017 17:42 - CONCLUSION: 1. No evidence of hydronephrosis on either side. 2. Solitary linear echogenic focus in the upper pole parenchyma of the right kidney has similar features to prior examination in January 2017 and possibly represents a calcification. David Snell MD Neck CTA [id number] Signed Impressions: Service Date/Time: Tuesday, August 29, 2017 00:13 - CONCLUSION: Negative carotid CTA. David Snell MD Head CTA [id number] Signed Impressions: Service Date/Time: Tuesday, August 29, 2017 00:13 - CONCLUSION: 1. No evidence of vessel truncation or aneurysm. 2. No abnormal vessels in the region of the large left thalamic hemorrhage. David Snell MD Laboratory Tests Test 09/03/17 13:10 09/04/17 04:58 Blood Gas Puncture Site LT RADIAL Blood Gas Patient Temperature 98.6 Blood Gas HCO3 26 mmol/L Blood Gas Base Excess -0.3 mmol/L Blood Gas Oxygen Saturation 94 % Arterial Blood pH 7.27 Arterial Blood Partial Pressure CO2 57 mmHg Arterial Blood Partial Pressure O2 90 mmHg Arterial Blood Oxygen Content 14.9 Vol % Arterial Blood Carboxyhemoglobin 0.7 % Arterial Blood Methemoglobin 1.3 % Blood Gas Hemoglobin 11.2 G/DL Oxygen Delivery Device VENTILATOR Blood Gas Ventilator Setting PRVC18/550/1.1/+8 Blood Gas Inspired Oxygen 45 % White Blood Count 7.9 TH/MM3 Red Blood Count 4.11 MIL/MM3 Hemoglobin 11.2 GM/DL Hematocrit 33.6 % Mean Corpuscular Volume 81.7 FL Mean Corpuscular Hemoglobin 27.2 PG Mean Corpuscular Hemoglobin Concent 33.3 % Red Cell Distribution Width 15.5 % Platelet Count 247 TH/MM3 Mean Platelet Volume 9.4 FL Neutrophils (%) (Auto) 74.1 % Lymphocytes (%) (Auto) 9.7 % Monocytes (%) (Auto) 14.2 % Eosinophils (%) (Auto) 1.2 % Basophils (%) (Auto) 0.8 % Neutrophils # (Auto) 5.9 TH/MM3 Lymphocytes # (Auto) 0.8 TH/MM3 Monocytes # (Auto) 1.1 TH/MM3 Eosinophils # (Auto) 0.1 TH/MM3 Basophils # (Auto) 0.1 TH/MM3 CBC Comment DIFF FINAL Differential Comment Blood Urea Nitrogen 55 MG/DL Creatinine 5.17 MG/DL Random Glucose 198 MG/DL Total Protein 7.1 GM/DL Albumin 2.4 GM/DL Calcium Level 9.1 MG/DL Magnesium Level 3.1 MG/DL Alkaline Phosphatase 65 U/L Aspartate Amino Transf (AST/SGOT) 46 U/L Alanine Aminotransferase (ALT/SGPT) 32 U/L Total Bilirubin 0.3 MG/DL Sodium Level 144 MEQ/L Potassium Level 3.4 MEQ/L Chloride Level 107 MEQ/L Carbon Dioxide Level 28.8 MEQ/L Anion Gap 8 MEQ/L Estimat Glomerular Filtration Rate 15 ML/MIN (Jeison Boyle) Medical Decision Making Impression and Plan A: 46 y/o M with no improvement in neurologic exam since admission following relatively large thalamic intracranial hemorrhage. Recommendations: Remains on ventilatory support with IV sedation due to agitation. Continue with blood pressure control Continue with neuro checks Palliative care as following Discussed with pts daughter at bedside. (Jeison Boyle) Attending Statement The exam, history, and the medical decision-making described in the above note were completed with the assistance of the mid-level provider. I reviewed and agree with the findings presented. I attest that I had a [id number] encounter with the patient on the same day, and personally performed and documented my assessment and findings in the medical record. Intubated and requires sedation for vent support and agitation. Continue with hyper tension regulation and supportive care. Updated family at bedside and discussed with nursing staff. (Jt Dotson MD) Jeison Boyle Sep 04, 2017 09:41 Jt Dotson MD Sep 04, 2017 12:35
[2017-09-04] MEDS: hydrALAZINE HCL 20 MG/ML VIAL IV PUSH PRN (10:23)
[2017-09-04] MEDS: DEXAMETHASONE SOD PHOS 20 MG/5 ML VIAL IV PUSH SCH ×2 (14:05→18:35)
[2017-09-04] MEDS: diphenhydrAMINE HCL 50 MG/ML VIAL IV SCH ×2 (14:05→18:29)
--- NOTE | 2017-09-04 14:10 | HHI.CCPN ---
Subjective Remarks/Hospital Course Hospital Course: 46 y/o man with longstanding hypertension and previous CVA presents obtunded with new neurological symptoms noticed prior to arrival. Timeline unclear. Required intubation in ED for airway protection. CT head shows left thalamic bleed and shift away from bleed. Toxicology screen pending. Subjective: 08/30: encephalopathy persists. bp under better control, still on cardene. on sedation vacation, moves left side spontaneously but nothing on right. 08/31: overnight, severely agitated, requiring high dose sedation. also, lambert obstructed, new lambert placed with improvement in obstruction. this morning, RAFAELA with Cr up to 3. urine Na < 10, suggestive of pre-renal etiology. continued ivf. high peak pressures on vent. suction lavage with thick tenacious secretions. bronch with left lobe mucous plugging. bronchospasm a significant problem requiring iv magnesium and duonebs. finally attempted small paralytic dose with improvement in abdominal breathing and fighting ventilator. 09/01: No improvement in neuro exam, intermittent jerking movements noted by the RN no seizure. Creatinine for urine output adequate. I have consulted nephrology. We'll check CT of the head repeat EEG tomorrow a.m. 09/02: Clinically remains same. Did not tolerate sedation vacation, became hypertensive. CT head today showed slight improvement in L thalamic and IVH. Dr. Tinajero is the neurosurgeon, Dr. Jhaveri covering 09/03: Still unable to tolerate sedation vacation. Becomes very asynchronous with the vent with desaturations. Discussed with daughters about possible tracheostomy, they want to discuss with their mom, patient's ex -. Creatinine has worsened to 5.1 but no acute indication for dialysis. Will check ABG urine output 1.8 L in 24 hours 09/04: Remains intubated sedated synchronous with the vent. Noted to have tongue swelling/angioedema. Lisinopril discontinued. Placed on Decadron and IV Benadryl. Plan for tracheostomy and PEG tube placement next week Objective Vital Signs Date Time Temp Pulse Resp B/P (MAP) Pulse Ox O2 Delivery O2 Flow Rate FiO2 09/04/17 11:44 97 40 09/04/17 10:00 82 09/04/17 08:48 145/77 09/04/17 08:00 99.3 24 09/04/17 07:15 Mechanical Ventilator Intake and Output 09/04/17 09/04/17 09/05/17 08:00 16:00 00:00 Intake Total 1301 ml Output Total 1452 ml Balance -151 ml Result Diagram: 09/04/1745709/04/17457 Objective Remarks Gen: Intubated sedated Head: Atraumatic. Conjunctivae injected. ENT: Tongue swollen with laceration from bite Neck: Supple, orally intubated. Lungs: Bilateral scattered wheezing Heart: Tachycardia, RR. Intermittently hypertensive Abdomen: Mildly distended, No guarding. Extremities: Warm, well perfused. Neuro: RASS -4 on propofol and fentanyl. moves LUE/LLE spontaneously, no movement on right. does not follow commands. w/d to pain left side. pupils equal , round A/P Problem List: (1) Intracranial hemorrhage ICD Code: I62.9 - Nontraumatic intracranial hemorrhage, unspecified Status: Acute (2) Hemorrhagic stroke ICD Code: I61.9 - Nontraumatic intracerebral hemorrhage, unspecified Status: Acute (3) Hypertensive emergency ICD Code: I10 - Hypertensive emergency Status: Acute Assessment and Plan Assessment: 46yM with left thalamic hypertensive hemorrhagic IPH, ICH score 2. remains off pathway, poor neurologic exam. continue carvedilol and tight bp control. frequent neuro checks. cannot SBT or extubate while encephalopathic and hypertensive. Plan for trach and PEG next week Active Problems: Acute encephalopathy Left Thalamic Hemorrhage, with IV extension Intracerebral Hemorrhage, ICH score 2 Acute hypoxic and Hypercarbic Respiratory failure Hypertensive Emergency Ventilatory Dyssynchrony Agitated Delirium Acute kidney failure Angioedema most likely EMIL inhibitor induced Plan: - Unable to do sedation vacation due to severe ventilator synchrony and desaturation - Start sedation after trach next week - Seroquel 100mg po q8hr for agitation. Haldol 5mg iv q4h prn for breakthrough agitation - oxycodone 10mg po q4h. Fentanyl, propofol. Very hypertensive on attempted sedation vacation - Start scheduled ativan 2mg po q8 - Requiring prn boluses of neuromuscular blockade if we cannot get control of vent synchrony. - CT head 09/02 improving left thalamic and intraventricular hemorrhage, EEG severe encephalopathy - D/W Dr. Tinajero 09/01, frequent neuro checks - goal SBP < 140. Cardene/labetalol/hydralazine prn - Unable to perform SBT - Renal ultrasound, nephrology consult. Dr. Rachel has seen the patient no indication for emergency dialysis - TF at goal, bowel regimen - SCDs. hold pharmacologic DVT prophylaxis given ICH. - Protonix. - Lisinopril discontinued. Started on IV Decadron and Benadryl Overall impression: Critically ill with hypertensive emergency and thalamic bleed. worsening respiratory status, agitated delirium, now with worsening RAFAELA. Prognosis guarded Critical Care 30 mins aside from procedures. Ladan Pierre MD Sep 04, 2017 14:10
--- NOTE | 2017-09-04 14:20 | HHI.NPPN ---
Subjective History of Present Illness 46 year old BM with CVA ,ARF non oliguric, HTN Objective Data Data Vital Signs Date Time Temp Pulse Resp B/P (MAP) Pulse Ox O2 Delivery O2 Flow Rate FiO2 09/04/17 11:44 97 40 09/04/17 10:00 82 09/04/17 08:48 80 145/77 09/04/17 08:00 83 09/04/17 08:00 40 09/04/17 08:00 99.3 81 24 145/77 (99) 96 09/04/17 07:51 95 40 09/04/17 07:15 98 Mechanical Ventilator 40 09/04/17 06:00 79 09/04/17 04:02 99 40 09/04/17 04:00 76 09/04/17 04:00 40 09/04/17 04:00 100.8 76 20 159/85 (109) 100 09/04/17 03:54 73 150/83 09/04/17 02:00 76 09/04/17 00:08 100 40 09/04/17 00:00 100.0 81 20 159/85 (109) 99 09/04/17 00:00 40 09/04/17 00:00 81 09/03/17 22:00 81 09/03/17 20:00 Mechanical Ventilator 40 09/03/17 20:00 74 09/03/17 20:00 99.9 75 20 147/84 (105) 99 Arterial Line 09/03/17 20:00 40 09/03/17 19:31 99 40 09/03/17 18:00 84 09/03/17 16:59 98 40 09/03/17 16:00 45 09/03/17 16:00 84 09/03/17 16:00 99.1 84 22 140/89 (106) 97 -: 09/04/17 0458 09/04/17 0458 Physical Exam General Appearance: Well Developed Neck Neck Exam: Neck Supple Cardiology CV Exam: Regular, Normal Sinus Rhythm Gastrointestinal/Abdomen GI Exam: Distended Genitourinary Exam: Clear Urine Extremeties Extremities Exam: Trace Edema Neurologic Neuro Exam: Sedated Assessment/Plan Problem List: (1) Acute kidney injury ICD Codes: N17.9 - Acute kidney failure, unspecified Status: Acute Plan: Likely due to renal hypoperfusion resulting from normalization of BP. Patient had abnormal renal function on arrival, it is possible that he had underlying CKD: could have been due to hypertensive nephrosclerosis. RAFAELA also could have been due to malignant hypertension, and resulting target organ injury. Patient likely has underlying stage III CKD. No immediate need for dialysis. ACEI stopped follow BMP Discussed with Dr. Pierre. (2) Hemorrhagic stroke ICD Codes: I61.9 - Nontraumatic intracerebral hemorrhage, unspecified Status: Acute Plan: Non surgical management. (3) Hypertension ICD Codes: I10 - Hypertension Status: Chronic Plan: On Cardene drip off and on. Timoteo Kuo MD Sep 04, 2017 14:20
[2017-09-04] MEDS: LORazepam 2 MG TAB PO SCH ×2 (14:50→22:08)
[2017-09-04] MEDS: RESP: ALBUTEROL 2.5 MG/IPRATROPIUM 0.5 MG NEB (PRN) INH (19:46)
[2017-09-04] MEDS: ATORVASTATIN 40 MG TAB PO SCH (19:58)
[2017-09-05] VITALS (18 sets, daily range): BP systolic 134–158; BP diastolic 65–88; PULSE 76–90; RESP 20–24; TEMP 99.4–100.4; O2SAT 97–100
[2017-09-05] MEDS: diphenhydrAMINE HCL 50 MG/ML VIAL IV SCH ×4 (00:13→18:14)
[2017-09-05] MEDS: DEXAMETHASONE SOD PHOS 20 MG/5 ML VIAL IV PUSH SCH ×2 (00:14→06:09)
[2017-09-05] MEDS: oxyCODONE HCL ORAL CONC 5 MG/0.25 ML SYRINGE PO SCH ×6 (00:14→20:26)
[2017-09-05] MEDS: CHLORHEXIDINE GLUCONATE 2 % 1 PACK (2 CLOTHS) TOP SCH (03:31)
[2017-09-05] MEDS: PROPOFOL 1000 MG/100 ML INJ 100 ML IV PRN ×7 (03:35→23:03)
[2017-09-05] MEDS: cloNIDine HCL 0.1 MG TAB PO SCH ×3 (05:02→21:04)
[2017-09-05] MEDS: QUEtiapine FUMARATE 100 MG TAB PO SCH ×3 (05:02→21:04)
[2017-09-05] MEDS: PROPRANOLOL HCL 10 MG TAB PO SCH ×4 (05:02→23:04)
[2017-09-05] MEDS: PIPERACIL-TAZO 2.25 GM PREMIX 50 ML IV SCH ×3 (05:02→21:05)
[2017-09-05] MEDS: INSULIN NovoLIN REGULAR SUPPLEMENTAL SCALE SQ SCH ×4 (05:25→23:33)
[2017-09-05] MEDS: LORazepam 2 MG TAB PO SCH ×3 (06:07→22:23)
[2017-09-05] MEDS: hydrALAZINE HCL 20 MG/ML VIAL IV PUSH PRN ×3 (06:07→23:04)
[2017-09-05] MEDS: ACETAMINOPHEN 325 MG TAB PO PRN ×2 (06:08→12:26)
[2017-09-05] MEDS ORDERED: ACETAMINOPHEN 1000 MG/100 ML 0 ML IV ONE (07:52)
[2017-09-05] MEDS: CHLORHEXIDINE 0.12% (ORAL KIT) 15 ML CUP MT SCH ×2 (08:00→20:00)
[2017-09-05] MEDS: RESP: ALBUTEROL 2.5 MG/IPRATROPIUM 0.5 MG NEB (PRN) INH (08:44)
[2017-09-05 08:52] LABS: AUTOMATED NEUTROPHIL # 7.3 TH/MM3 (1.8-7.7); BASOPHIL % 0.3 % (0.0-2.0); HEMATOCRIT 33.1 % (39.0-51.0); HEMOGLOBIN 10.8 GM/DL (13.0-17.0); LYMPHOCYTE # 0.5 TH/MM3 (1.0-4.8); MEAN CELL VOLUME 82.6 FL (80.0-100.0); MEAN CORPUSCULAR HEMOGLOBIN 27.1 PG (27.0-34.0); MEAN CORPUSCULAR HGB CONC 32.8 % (32.0-36.0); MEAN PLATELET VOLUME 9.4 FL (7.0-11.0); MONO % 7.9 % (0.0-8.0); MONOCYTE # 0.7 TH/MM3 (0-0.9); NEUT % 85.8 % (16.0-70.0); PLATELET COUNT 259 TH/MM3 (150-450); RED BLOOD COUNT 4.01 MIL/MM3 (4.50-5.90); RED CELL DISTRIBUTION WIDTH 15.9 % (11.6-17.2); WHITE BLOOD COUNT 8.5 TH/MM3 (4.0-11.0)
[2017-09-05] MEDS: BISACODYL 10 MG SUPP RECTAL SCH (09:00)
[2017-09-05] MEDS: POLYETHYLENE GLYCOL 17 GM PKG PO SCH ×2 (09:00→20:25)
[2017-09-05] MEDS: LACTULOSE SYRUP 20 GM/30 ML CUP PO SCH (09:00)
[2017-09-05] MEDS: DOCUSATE SODIUM 50 MG/SENNA 8.6 MG TAB PO SCH ×2 (09:03→20:25)
[2017-09-05] MEDS: PANTOPRAZOLE SODIUM 40 MG VIAL IV PUSH SCH (09:03)
[2017-09-05] MEDS: HYDROCHLOROTHIAZIDE 25 MG TAB PO SCH (09:03)
[2017-09-05] MEDS: CALCIUM ACETATE 667 MG CAP PO SCH ×3 (09:03→17:29)
[2017-09-05 09:36] LABS: ALBUMIN 2.2 GM/DL (3.4-5.0); ALKALINE PHOSPHATASE 66 U/L (45-117); ALT (GPT) 43 U/L (12-78); AST (GOT) 64 U/L (15-37); BICARBONATE 26.1 MEQ/L (21.0-32.0); BLOOD UREA NITROGEN 61 MG/DL (7-18); CALCIUM 8.7 MG/DL (8.5-10.1); CHLORIDE 106 MEQ/L (98-107); CREATININE 4.92 MG/DL (0.60-1.30); GLOMERULAR FILTRATION RATE 16 ML/MIN (>89); GLUCOSE,RANDOM 367 MG/DL (74-106); MAGNESIUM 3.1 MG/DL (1.5-2.5); SODIUM (NA) 141 MEQ/L (136-145); TOTAL BILIRUBIN ADULT 0.3 MG/DL (0.2-1.0); TOTAL PROTEIN 7.3 GM/DL (6.4-8.2)
--- NOTE | 2017-09-05 10:20 | HHI.NSPN ---
(Jeison Boyle) History Chief Complaint: intubated and sedated (Jeison Boyle) Interval History 46-year-old male with history of hypertension who was brought to the emergency room per E VAC after being found with altered mental status, right hemiparesis. He had reportedly been seen to be normal approximately 3-1/2 hours prior. Systolic blood pressure greater than 260/130 on initial evaluation. No seizure activity reported. Positive emesis. Per emergency room personnel the patient was responding verbally, difficulty raising his right arm upon initial arrival. He was intubated in the emergency room and a stat CT scan accomplished which has revealed a primarily left thalamic intracranial hemorrhage. 09/01/17: Patient remains intubated and sedated. 09/02/17: Follow-up CT scan head with mild initial decreased intraventricular hemorrhage, no new thalamic hemorrhage, mild decreased mass effect. 09/03/17: Remains on propofol and fentanyl IV for ventilator control. Positive agitation with decreased sedation 09/04/17: Pt sedated on Diprivan and Fentanyl drip. Not following commands. Pt on Cardene drip. Intubated. 09/05/17: Pt sedated on Diprivan and Fentanyl drip. Not following commands. Pt on Cardene drip. Intubated. Pupils 2mm bilaterally, NR bilaterally. (Jeison Boyle) System Review Comments Not able to obtain given level of alertness. (Jeison Boyle) Exam Results Vital Signs Date Time Temp Pulse Resp B/P (MAP) Pulse Ox O2 Delivery O2 Flow Rate FiO2 09/05/17 08:34 100 40 09/05/17 06:00 85 09/05/17 04:00 100.0 20 138/77 (97) 09/04/17 19:00 Mechanical Ventilator Intake and Output 09/05/17 09/05/17 09/06/17 08:00 16:00 00:00 Intake Total 950 ml Output Total 1550 ml Balance -600 ml (Jeison Boyle) Physical Examination General: Pt intubated and sedated in no acute distress. Eyes: 2mm bilaterally NR bilaterally. Sclera anicteric. Resp: Intubated. CTA bilaterally. PRVC rate 20. Peep 8. FiO2 40%. Heart: NSR no murmurs. Cardene drip. Abd: Distended but soft. Positive bs. Skin: No cyanosis or erythema. SCDs in place. Muscle: Not following for muscle testing. Pt remains sedated. Neuro: Pt sedated on Diprivan and Fentanyl drips. Not following commands. Pupils 2mm bilaterally NR bilaterally. (Jeison Boyle) Lab, Micro, Other Results Last Impressions Chest X-Ray 09/04/17 06 Signed Impressions: Service Date/Time: Monday, September 04, 2017 04:42 - CONCLUSION: 1. Rotated single view examination with hazy opacity in the left perihilar region. 2. The heart size remains enlarged. Angelo Conn MD Head CT 09/02/17 06 Signed Impressions: Service Date/Time: August 03:11 - CONCLUSION: 1. Slowly decreasing left thalamic and intraventricular hemorrhage. Decreased rightward midline shift, currently approximately 2.5 mm. 2. No new hemorrhage or other acute intracranial abnormality. 3. Paranasal sinusitis has developed. Ignacio Lares MD Renal Ultrasound 08/31/17 0000 Signed Impressions: Service Date/Time: Thursday, August 31, 2017 17:42 - CONCLUSION: 1. No evidence of hydronephrosis on either side. 2. Solitary linear echogenic focus in the upper pole parenchyma of the right kidney has similar features to prior examination in January 2017 and possibly represents a calcification. David Snell MD Neck CTA [id number] Signed Impressions: Service Date/Time: Tuesday, August 29, 2017 00:13 - CONCLUSION: Negative carotid CTA. David Snell MD Head CTA [id number] Signed Impressions: Service Date/Time: Tuesday, August 29, 2017 00:13 - CONCLUSION: 1. No evidence of vessel truncation or aneurysm. 2. No abnormal vessels in the region of the large left thalamic hemorrhage. David Snell MD Laboratory Tests Test 09/05/17 08:20 White Blood Count 8.5 TH/MM3 Red Blood Count 4.01 MIL/MM3 Hemoglobin 10.8 GM/DL Hematocrit 33.1 % Mean Corpuscular Volume 82.6 FL Mean Corpuscular Hemoglobin 27.1 PG Mean Corpuscular Hemoglobin Concent 32.8 % Red Cell Distribution Width 15.9 % Platelet Count 259 TH/MM3 Mean Platelet Volume 9.4 FL Neutrophils (%) (Auto) 85.8 % Lymphocytes (%) (Auto) 6.0 % Monocytes (%) (Auto) 7.9 % Eosinophils (%) (Auto) 0.0 % Basophils (%) (Auto) 0.3 % Neutrophils # (Auto) 7.3 TH/MM3 Lymphocytes # (Auto) 0.5 TH/MM3 Monocytes # (Auto) 0.7 TH/MM3 Eosinophils # (Auto) 0.0 TH/MM3 Basophils # (Auto) 0.0 TH/MM3 CBC Comment DIFF FINAL Differential Comment Blood Urea Nitrogen 61 MG/DL Creatinine 4.92 MG/DL Random Glucose 367 MG/DL Total Protein 7.3 GM/DL Albumin 2.2 GM/DL Calcium Level 8.7 MG/DL Magnesium Level 3.1 MG/DL Alkaline Phosphatase 66 U/L Aspartate Amino Transf (AST/SGOT) 64 U/L Alanine Aminotransferase (ALT/SGPT) 43 U/L Total Bilirubin 0.3 MG/DL Sodium Level 141 MEQ/L Potassium Level 3.5 MEQ/L Chloride Level 106 MEQ/L Carbon Dioxide Level 26.1 MEQ/L Anion Gap 9 MEQ/L Estimat Glomerular Filtration Rate 16 ML/MIN (Jeison Boyle) Medical Decision Making Impression and Plan A: 46 y/o M with no improvement in neurologic exam since admission following relatively large thalamic intracranial hemorrhage. Recommendations: Remains on ventilatory support with IV sedation due to agitation. Continue with blood pressure control Continue with neuro checks Palliative care as following Discussed with pts daughter at bedside. (Jeison Boyle) Attending Statement The exam, history, and the medical decision-making described in the above note were completed with the assistance of the mid-level provider. I reviewed and agree with the findings presented. I attest that I had a [id number] encounter with the patient on the same day, and personally performed and documented my assessment and findings in the medical record. (Jt Dotson MD) Jeison Boyle Sep 05, 2017 10:20 Jt Dotson MD Sep 05, 2017 11:32
[2017-09-05] MEDS: INSULIN DETEMIR 100 UNITS/ML VIAL SQ SCH ×2 (10:38→21:04)
[2017-09-05] MEDS: fentaNYL DRIP 250 ML IV PRN ×2 (11:24→23:04)
--- NOTE | 2017-09-05 12:04 | HHI.CCPN ---
Subjective Remarks/Hospital Course Hospital Course: 46 y/o man with longstanding hypertension and previous CVA presents obtunded with new neurological symptoms noticed prior to arrival. Timeline unclear. Required intubation in ED for airway protection. CT head shows left thalamic bleed and shift away from bleed. Toxicology screen pending. Subjective: 08/30: encephalopathy persists. bp under better control, still on cardene. on sedation vacation, moves left side spontaneously but nothing on right. 08/31: overnight, severely agitated, requiring high dose sedation. also, lambert obstructed, new lambert placed with improvement in obstruction. this morning, RAFAELA with Cr up to 3. urine Na < 10, suggestive of pre-renal etiology. continued ivf. high peak pressures on vent. suction lavage with thick tenacious secretions. bronch with left lobe mucous plugging. bronchospasm a significant problem requiring iv magnesium and duonebs. finally attempted small paralytic dose with improvement in abdominal breathing and fighting ventilator. 09/01: No improvement in neuro exam, intermittent jerking movements noted by the RN no seizure. Creatinine for urine output adequate. I have consulted nephrology. We'll check CT of the head repeat EEG tomorrow a.m. 09/02: Clinically remains same. Did not tolerate sedation vacation, became hypertensive. CT head today showed slight improvement in L thalamic and IVH. Dr. Tinajero is the neurosurgeon, Dr. Jhaveri covering 09/03: Still unable to tolerate sedation vacation. Becomes very asynchronous with the vent with desaturations. Discussed with daughters about possible tracheostomy, they want to discuss with their mom, patient's ex -. Creatinine has worsened to 5.1 but no acute indication for dialysis. Will check ABG urine output 1.8 L in 24 hours 09/04: Remains intubated sedated synchronous with the vent. Noted to have tongue swelling/angioedema. Lisinopril discontinued. Placed on Decadron and IV Benadryl. Plan for tracheostomy and PEG tube placement next week 09/05: Patient remains intubated sedated critically ill. No change or improvement in neuro status. Lisinopril discontinued yesterday Decadron and Benadryl started tongue swelling is improved. Hyperglycemia secondary to Decadron, random blood sugar 360. Will wean to DC. Plan for trach and PEG this week, if family agreeable Objective Vital Signs Date Time Temp Pulse Resp B/P (MAP) Pulse Ox O2 Delivery O2 Flow Rate FiO2 09/05/17 11:48 100 40 09/05/17 10:00 80 09/05/17 08:00 100.4 24 153/83 (106) 09/05/17 08:00 Mechanical Ventilator Intake and Output 09/05/17 09/05/17 09/06/17 08:00 16:00 00:00 Intake Total 950 ml Output Total 1550 ml Balance -600 ml Result Diagram: 09/05/1781909/05/17819 Objective Remarks Gen: Intubated sedated Head: Atraumatic. Conjunctivae injected. ENT: Tongue swollen/angioedema with laceration from bite Neck: Supple, orally intubated. Lungs: Bilateral scattered wheezing Heart: Tachycardia, RR. Intermittently hypertensive Abdomen: Mildly distended, No guarding. Extremities: Warm, well perfused. Neuro: RASS -4 on propofol and fentanyl. moves LUE/LLE spontaneously, no movement on right. does not follow commands. w/d to pain left side. pupils equal , round A/P Problem List: (1) Intracranial hemorrhage ICD Code: I62.9 - Nontraumatic intracranial hemorrhage, unspecified Status: Acute (2) Hemorrhagic stroke ICD Code: I61.9 - Nontraumatic intracerebral hemorrhage, unspecified Status: Acute (3) Hypertensive emergency ICD Code: I10 - Hypertensive emergency Status: Acute Assessment and Plan Assessment: 46yM with left thalamic hypertensive hemorrhagic IPH, ICH score 2. remains off pathway, poor neurologic exam. continue carvedilol and tight bp control. frequent neuro checks. cannot SBT or extubate while encephalopathic and hypertensive. Plan for trach and PEG next week Active Problems: Acute encephalopathy Left Thalamic Hemorrhage, with IV extension Intracerebral Hemorrhage, ICH score 2 Acute hypoxic and Hypercarbic Respiratory failure Hypertensive Emergency Ventilatory Dyssynchrony Agitated Delirium Acute kidney failure Angioedema most likely EMIL inhibitor induced Hyperglycemia Plan: - Unable to do sedation vacation due to severe ventilator synchrony and desaturation - Sedation after trach this week - Seroquel 100mg po q8hr for agitation. Clonidine 0.1 mg PO q8h. Haldol 5mg iv q4h prn for breakthrough agitation - oxycodone 10mg po q4h. Fentanyl, propofol. Very hypertensive on attempted sedation vacation - Started scheduled ativan 2mg po q8 09/05/17 - Requiring prn boluses of neuromuscular blockade if we cannot get control of vent synchrony. - CT head 09/02 improving left thalamic and intraventricular hemorrhage, EEG severe encephalopathy - D/W Dr. Tinajero 09/01, frequent neuro checks - goal SBP < 150. Cardene/labetalol/hydralazine prn - Unable to perform SBT. Plan for trach and PEG - Renal ultrasound, nephrology consult. Dr. Rachel has seen the patient no indication for emergency dialysis. Creat improved from 5.2 to 4.9, UO 3.6L in 24 hours - TF at goal, bowel regimen-change to Glucerna - hyperglycemia secondary to Decadron. Start Levemir 10 units every 12, continue sliding scale - Lisinopril discontinued. Started on IV Decadron and Benadryl - SCDs. hold pharmacologic DVT prophylaxis given ICH. - Protonix. Overall impression: Critically ill with hypertensive emergency and thalamic bleed. Not tolerating weaning trials, Trach PEG this week Critical Care 30 mins aside from procedures. Ladan Pierre MD Sep 05, 2017 12:04
--- NOTE | 2017-09-05 14:35 | PD.CONS ---
HPI History of Present Illness This is a 46 year old male who presented to the ED obtunded requiring intubation in ED. CT of the head showed left thalamic bleed and shift away from bleed. PMH significant for hypertension and previous CVA. GI was consulted for PEG placement. [facility] Past Medical History Reported TIA in 2012 and 2013. Hypertension, uncontrolled Migraines Dyslipidemia Obesity Past Surgical History None noted Coded Allergies: No Known Allergies (Verified , 01/06/17) Medications Current Medications Medications (Trade) Dose Ordered Sig/Hermann Route PRN Reason Start Time Stop Time Status Last Admin Dose Admin Sodium Chloride (NS Flush) 2 ml UNSCH PRN IVF FLUSH AFTER USING IV ACCESS 08/29/17 00:00 Chlorhexidine Gluconate (Peridex 0.12% Liq) 15 ml BID@08,20 MT 08/29/17 08:00 09/05/17 08:00 Labetalol HCl (Trandate Inj) 10 mg Q20M PRN IV PUSH SBP>140, DBP>90 08/29/17 00:45 09/04/17 02:53 Amlodipine Besylate (Norvasc) 10 mg DAILY PO 08/29/17 09:00 09/05/17 09:03 Acetaminophen (Tylenol) 650 mg Q6H PRN PO PAIN 1-5 AND/OR FEVER >101F 08/29/17 00:45 09/05/17 12:26 Morphine Sulfate (Morphine Inj) 2 mg Q2H PRN IV PUSH PAIN SCALE 6 TO 10 08/29/17 00:45 Pantoprazole Sodium (Protonix Inj) 40 mg DAILY IV PUSH 08/29/17 09:00 09/05/17 09:03 Ondansetron HCl (Zofran Inj) 4 mg Q6H PRN IV PUSH NAUSEA OR VOMITING 08/29/17 00:45 Albuterol/ Ipratropium (Duoneb Neb) 1 ampule Q4HR NEB PRN INH WHEEZING 08/29/17 00:45 09/05/17 08:44 Miscellaneous Information 1 Q361D XX 08/29/17 00:45 08/29/17 01:00 Chlorhexidine Gluconate (Chlorhexidine 2% Cloth) Taper DAILY@04 TOP 08/29/17 04:00 08/25/18 03:59 Chlorhexidine Gluconate (Chlorhexidine 2% Cloth) 3 pack UNSCH PRN TOP HYGIENIC CARE 08/29/17 00:45 Fentanyl Citrate 250 ml @ 5 mls/hr TITRATE PRN IV SEDATION 08/29/17 00:45 09/05/17 11:24 Atorvastatin Calcium (Lipitor) 40 mg HS PO 08/29/17 21:00 09/04/17 19:58 Hydrochlorothiazide (Hydrodiuril) 25 mg DAILY PO 08/29/17 09:00 09/05/17 09:03 Metoprolol Tartrate (Lopressor) 100 mg BID PO 08/29/17 09:00 Future Hold 08/31/17 09:15 Clonidine (Catapres) 0.1 mg Q8HR PO 08/29/17 06:00 09/05/17 13:09 Dextrose (D50w (Vial) Inj) 25 ml UNSCH PRN IV PUSH HYPOGLYCEMIA-SEE COMMENTS 08/30/17 08:15 Insulin Human Regular (NovoLIN R SUPPLEMENTAL SCALE) 1 Q6HR SQ 08/30/17 12:00 09/05/17 12:26 Hydralazine HCl (Apresoline Inj) 10 mg Q30M PRN IV PUSH sbp > 160 08/30/17 08:15 09/05/17 06:07 Propofol 100 ml @ 14.352 mls/ hr TITRATE PRN IV SEDATION 08/31/17 00:30 09/05/17 12:18 Oxycodone HCl (Roxicodone Intensol Liq) 10 mg Q4H PO 08/31/17 13:00 09/05/17 12:25 Propranolol HCl (Inderal) 10 mg Q6HR PO 08/31/17 12:00 09/05/17 12:26 Quetiapine Fumarate (SEROquel) 100 mg Q8HR PO 08/31/17 11:00 09/05/17 13:09 Haloperidol Lactate (Haldol Inj) 5 mg Q4H PRN IV agitation 08/31/17 11:00 Bisacodyl (Dulcolax Supp) 10 mg DAILY RECTAL 08/31/17 12:00 Future Hold 08/31/17 11:58 Polyethylene Glycol (Miralax) 17 gm BID PO 08/31/17 12:00 09/04/17 19:58 Lactulose (Lactulose Liq) 30 ml BID PO 08/31/17 12:00 Future Hold 09/04/17 19:57 Senna/Docusate Sodium (Melina-Colace) 1 tab BID PO 08/31/17 12:00 09/05/17 09:03 Calcium Acetate (Phoslo) 667 mg TID PO 08/31/17 18:00 09/05/17 12:26 Piperacillin Sod/ Tazobactam Sod 50 ml @ 100 mls/hr Q8HR IV 09/02/17 14:00 09/05/17 13:09 Nicardipine HCl 50 mg/Sodium Chloride 500 ml @ 50 mls/hr TITRATE PRN IV BLOOD PRESSURE MANAGEMENT 09/02/17 21:15 09/04/17 21:07 Diphenhydramine HCl (Benadryl Inj) 50 mg Q6H IV 09/04/17 13:00 09/07/17 12:59 09/05/17 13:14 Lorazepam (Ativan) 2 mg Q8H PO 09/04/17 15:00 09/05/17 06:07 Insulin Detemir (Levemir Inj) 10 units Q12H SQ 09/05/17 10:00 09/05/17 10:38 Dexamethasone Sodium Phosphate (Decadron Inj) 4 mg Q12H IV PUSH 09/05/17 18:00 Albuterol/ Ipratropium (Duoneb Neb) 1 ampule Q6HR NEB NEB 09/05/17 12:00 Family History HTN, parents and brother DM, older brother, Social History Unable to obtain. Review of Systems ROS Unable to obtain. GI Exam Vitals I&O Vital Signs Date Time Temp Pulse Resp B/P (MAP) Pulse Ox O2 Delivery O2 Flow Rate FiO2 09/05/17 12:00 85 09/05/17 12:00 99.5 85 20 150/82 (104) 100 09/05/17 12:00 40 09/05/17 11:48 100 40 09/05/17 10:00 80 09/05/17 08:34 100 40 09/05/17 08:00 100.4 86 24 153/83 (106) 97 09/05/17 08:00 40 09/05/17 08:00 97 Mechanical Ventilator 40 09/05/17 08:00 86 09/05/17 06:00 85 09/05/17 04:00 40 09/05/17 04:00 76 09/05/17 04:00 100.0 76 20 138/77 (97) 98 09/05/17 03:39 98 40 09/05/17 02:00 76 09/05/17 00:00 79 09/05/17 00:00 40 09/05/17 00:00 99.5 79 20 134/65 (88) 97 09/04/17 23:13 97 40 09/04/17 22:00 78 09/04/17 21:07 82 133/73 09/04/17 20:00 99.9 80 20 136/70 (92) 100 09/04/17 20:00 80 09/04/17 20:00 40 09/04/17 19:47 99 40 09/04/17 19:00 100 Mechanical Ventilator 40 09/04/17 18:00 84 09/04/17 17:40 98 40 09/04/17 17:09 86 134/67 09/04/17 16:00 86 09/04/17 16:00 40 09/04/17 16:00 99.9 86 21 145/67 (93) 98 I/O 09/04/17 09/04/17 09/04/17 09/05/17 09/05/17 09/05/17 07:00 15:00 23:00 07:00 15:00 23:00 Intake Total 1301 ml 3269 ml 950 ml Output Total 1452 ml 2250 ml 1550 ml Balance -151 ml 1019 ml -600 ml Intake IV Total 712 ml 2500 ml Tube Feeding 469 ml 769 ml 590 ml Other 120 ml 360 ml Output Urine Total 1450 ml 2100 ml 1550 ml Stool Total 2 ml 150 ml # Bowel Movements 3 Imaging Last Impressions Chest X-Ray 09/04/17599 Signed Impressions: Service Date/Time: Monday, September 04, 2017 04:42 - CONCLUSION: 1. Rotated single view examination with hazy opacity in the left perihilar region. 2. The heart size remains enlarged. Angelo Conn MD Head CT 09/02/17599 Signed Impressions: Service Date/Time: August 03:11 - CONCLUSION: 1. Slowly decreasing left thalamic and intraventricular hemorrhage. Decreased rightward midline shift, currently approximately 2.5 mm. 2. No new hemorrhage or other acute intracranial abnormality. 3. Paranasal sinusitis has developed. Ignacio Lares MD Renal Ultrasound 08/31/17 0000 Signed Impressions: Service Date/Time: Thursday, August 31, 2017 17:42 - CONCLUSION: 1. No evidence of hydronephrosis on either side. 2. Solitary linear echogenic focus in the upper pole parenchyma of the right kidney has similar features to prior examination in January 2017 and possibly represents a calcification. David Snell MD Neck CTA 08/28/17 2347 Signed Impressions: Service Date/Time: Tuesday, August 29, 2017 00:13 - CONCLUSION: Negative carotid CTA. David Snell MD Head CTA 08/28/17 2347 Signed Impressions: Service Date/Time: Tuesday, August 29, 2017 00:13 - CONCLUSION: 1. No evidence of vessel truncation or aneurysm. 2. No abnormal vessels in the region of the large left thalamic hemorrhage. David Snell MD Laboratory Test 09/05/17 08:20 White Blood Count 8.5 TH/MM3 Red Blood Count 4.01 MIL/MM3 Hemoglobin 10.8 GM/DL Hematocrit 33.1 % Mean Corpuscular Volume 82.6 FL Mean Corpuscular Hemoglobin 27.1 PG Mean Corpuscular Hemoglobin Concent 32.8 % Red Cell Distribution Width 15.9 % Platelet Count 259 TH/MM3 Mean Platelet Volume 9.4 FL Neutrophils (%) (Auto) 85.8 % Lymphocytes (%) (Auto) 6.0 % Monocytes (%) (Auto) 7.9 % Eosinophils (%) (Auto) 0.0 % Basophils (%) (Auto) 0.3 % Neutrophils # (Auto) 7.3 TH/MM3 Lymphocytes # (Auto) 0.5 TH/MM3 Monocytes # (Auto) 0.7 TH/MM3 Eosinophils # (Auto) 0.0 TH/MM3 Basophils # (Auto) 0.0 TH/MM3 CBC Comment DIFF FINAL Differential Comment Blood Urea Nitrogen 61 MG/DL Creatinine 4.92 MG/DL Random Glucose 367 MG/DL Total Protein 7.3 GM/DL Albumin 2.2 GM/DL Calcium Level 8.7 MG/DL Magnesium Level 3.1 MG/DL Alkaline Phosphatase 66 U/L Aspartate Amino Transf (AST/SGOT) 64 U/L Alanine Aminotransferase (ALT/SGPT) 43 U/L Total Bilirubin 0.3 MG/DL Sodium Level 141 MEQ/L Potassium Level 3.5 MEQ/L Chloride Level 106 MEQ/L Carbon Dioxide Level 26.1 MEQ/L Anion Gap 9 MEQ/L Estimat Glomerular Filtration Rate 16 ML/MIN Date/Time Source Procedure Growth Status 08/31/17 06:05 Blood Peripheral Aerobic Blood Culture - Final NO GROWTH IN 5 DAYS Complete 08/31/17 06:05 Blood Peripheral Anaerobic Blood Culture - Final NO GROWTH IN 5 DAYS Complete 08/30/17 09:10 Sputum Endotracheal Gram Stain - Final Complete 08/30/17 09:10 Sputum Endotracheal Sputum Culture - Final MODERATE GROWTH NORMAL RESPIRATORY ESTELITA Complete 08/31/17 05:30 Urine Catheterized Urine Urine Culture - Final NO GROWTH IN 48 HOURS. Complete Physical Examination HEENT: Atraumatic; no jaundice. Orally intubated NECK: Neck is supple. CHEST: Wheezing heard bilaterally CARDIAC: Tachycardic rate. ABDOMEN: Mild distention with no guarding noted. Bowel sounds present. EXTREMITIES: No clubbing, cyanosis, or edema. SKIN: Normal; no rash; no jaundice. 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 EEG shows severe encephalopathy. GI consulted for PEG placement. Patient is sedated on vent. PLAN: - EGD with PEG placement on Wednesday - Hold TF at [facility] - Obtain consents - Supportive care - Further recommendations to follow based on results of above. Patient seen and examined by Dr. Garsia and myself and this note is written on his behalf. Janee Brenner Sep 05, 2017 14:35
--- NOTE | 2017-09-05 14:54 | HHI.NPPN ---
Subjective History of Present Illness 46 year old BM with CVA ,ARF non oliguric, HTN Objective Data Data Vital Signs Date Time Temp Pulse Resp B/P (MAP) Pulse Ox O2 Delivery O2 Flow Rate FiO2 09/05/17 12:00 85 09/05/17 12:00 99.5 85 20 150/82 (104) 100 09/05/17 12:00 40 09/05/17 11:48 100 40 09/05/17 10:00 80 09/05/17 08:34 100 40 09/05/17 08:00 100.4 86 24 153/83 (106) 97 09/05/17 08:00 40 09/05/17 08:00 97 Mechanical Ventilator 40 09/05/17 08:00 86 09/05/17 06:00 85 09/05/17 04:00 40 09/05/17 04:00 76 09/05/17 04:00 100.0 76 20 138/77 (97) 98 09/05/17 03:39 98 40 09/05/17 02:00 76 09/05/17 00:00 79 09/05/17 00:00 40 09/05/17 00:00 99.5 79 20 134/65 (88) 97 09/04/17 23:13 97 40 09/04/17 22:00 78 09/04/17 21:07 82 133/73 09/04/17 20:00 99.9 80 20 136/70 (92) 100 09/04/17 20:00 80 09/04/17 20:00 40 09/04/17 19:47 99 40 09/04/17 19:00 100 Mechanical Ventilator 40 09/04/17 18:00 84 09/04/17 17:40 98 40 09/04/17 17:09 86 134/67 09/04/17 16:00 86 09/04/17 16:00 40 09/04/17 16:00 99.9 86 21 145/67 (93) 98 -: 09/05/17 0820 09/05/17 0820 Physical Exam General Appearance: Well Developed Neck Neck Exam: Neck Supple Cardiology CV Exam: Regular, Normal Sinus Rhythm Gastrointestinal/Abdomen GI Exam: Distended Genitourinary Exam: Clear Urine Extremeties Extremities Exam: Trace Edema Neurologic Neuro Exam: Sedated Assessment/Plan Problem List: (1) Acute kidney injury ICD Codes: N17.9 - Acute kidney failure, unspecified Status: Acute Plan: Likely due to renal hypoperfusion resulting from normalization of BP. Patient had abnormal renal function on arrival, it is possible that he had underlying CKD: could have been due to hypertensive nephrosclerosis. RAFAELA also could have been due to malignant hypertension, and resulting target organ injury. Patient likely has underlying stage III CKD. Nonoliguric urine output has significantly improved 3.6 L declining creatinine 4.9 he may not need dialysis Discussed with Dr. Pierre. Dr. Rachel to follow (2) Hemorrhagic stroke ICD Codes: I61.9 - Nontraumatic intracerebral hemorrhage, unspecified Status: Acute Plan: Non surgical management. (3) Hypertension ICD Codes: I10 - Hypertension Status: Chronic Plan: On Cardene drip off and on. Timoteo Kuo MD Sep 05, 2017 14:54
[2017-09-05] MEDS: RESP: ALBUTEROL 2.5 MG/IPRATROPIUM 0.5 MG NEB (SCH) NEB ×2 (16:17→20:58)
[2017-09-05] MEDS: LABETALOL HCL 100 MG/20 ML VIAL IV PUSH PRN ×2 (16:24→17:28)
[2017-09-05] MEDS ORDERED: ROCURONIUM INJ 50 MG/5 ML VIAL IV STA (16:37)
[2017-09-05] MEDS: DEXAMETHASONE SOD PHOS 4 MG/ML VIAL IV PUSH SCH (17:28)
[2017-09-05] MEDS: niCARdipine INJ 50 MG in SODIUM CHLORID 0.9% 500 ML INJ 480 ML IV PRN ×2 (18:53→22:00)
[2017-09-05] MEDS: FLUTICASONE PROPIONATE 50 MCG/ACT 16 GM NASAL SPRAY EACH NARE SCH (20:00)
[2017-09-05] MEDS: ATORVASTATIN 40 MG TAB PO SCH (20:25)
[2017-09-05] MEDS ORDERED: CHLORHEXIDINE GLUCONATE 2 % 1 PACK (2 CLOTHS) TOPICAL PRN (23:00)
[2017-09-05] MEDS ORDERED: POVIDONE IODINE 5% (ANTISEPSIS KIT) 4 APPLICATIONS EACH NARE PRN (23:00)
[2017-09-05] MEDS ORDERED: METOPROLOL TARTRATE 25 MG TAB PO PRN (23:00)
[2017-09-05] MEDS ORDERED: INSULIN HUMAN REGULAR 1,000 UNITS/10 ML VIAL SQ PRN (23:00)
[2017-09-05] MEDS ORDERED: SODIUM CHLORID 0.9% 500 ML IV PRN (23:00)
[2017-09-05] MEDS ORDERED: LACTATED RINGER'S 1000 ML IV PRN (23:00)
[2017-09-06] VITALS (17 sets, daily range): BP systolic 134–160; BP diastolic 65–87; PULSE 71–88; RESP 20; TEMP 100–100.8; O2SAT 95–100
[2017-09-06] MEDS: oxyCODONE HCL ORAL CONC 5 MG/0.25 ML SYRINGE PO SCH ×6 (00:21→20:04)
[2017-09-06] MEDS: LABETALOL HCL 100 MG/20 ML VIAL IV PUSH PRN ×5 (00:21→19:36)
[2017-09-06] MEDS: diphenhydrAMINE HCL 50 MG/ML VIAL IV SCH ×4 (00:21→17:29)
[2017-09-06] MEDS: PROPOFOL 1000 MG/100 ML INJ 100 ML IV PRN ×9 (01:14→22:39)
[2017-09-06] MEDS: CHLORHEXIDINE GLUCONATE 2 % 1 PACK (2 CLOTHS) TOP SCH (03:02)
[2017-09-06] MEDS: RESP: ALBUTEROL 2.5 MG/IPRATROPIUM 0.5 MG NEB (SCH) NEB ×4 (03:10→21:16)
[2017-09-06] MEDS: ACETAMINOPHEN 325 MG TAB PO PRN ×2 (04:54→20:04)
[2017-09-06] MEDS: PIPERACIL-TAZO 2.25 GM PREMIX 50 ML IV SCH ×3 (04:54→21:27)
[2017-09-06] MEDS: QUEtiapine FUMARATE 100 MG TAB PO SCH ×3 (04:55→21:25)
[2017-09-06] MEDS: cloNIDine HCL 0.1 MG TAB PO SCH (04:55)
[2017-09-06] MEDS: INSULIN NovoLIN REGULAR SUPPLEMENTAL SCALE SQ SCH ×3 (04:55→17:49)
[2017-09-06] MEDS: PROPRANOLOL HCL 10 MG TAB PO SCH ×3 (04:55→17:28)
[2017-09-06] MEDS: DEXAMETHASONE SOD PHOS 4 MG/ML VIAL IV PUSH SCH ×2 (04:56→17:28)
[2017-09-06] MEDS: LORazepam 2 MG TAB PO SCH ×3 (06:09→23:01)
[2017-09-06] MEDS: CHLORHEXIDINE 0.12% (ORAL KIT) 15 ML CUP MT SCH ×2 (08:00→20:00)
[2017-09-06] MEDS: DOCUSATE SODIUM 50 MG/SENNA 8.6 MG TAB PO SCH ×2 (08:00→20:04)
[2017-09-06] MEDS: HYDROCHLOROTHIAZIDE 25 MG TAB PO SCH (08:00)
[2017-09-06] MEDS: PANTOPRAZOLE SODIUM 40 MG VIAL IV PUSH SCH (08:00)
[2017-09-06] MEDS: CALCIUM ACETATE 667 MG CAP PO SCH ×3 (08:00→17:28)
[2017-09-06] MEDS: FLUTICASONE PROPIONATE 50 MCG/ACT 16 GM NASAL SPRAY EACH NARE SCH (08:00)
[2017-09-06] MEDS: POLYETHYLENE GLYCOL 17 GM PKG PO SCH ×2 (08:02→20:04)
[2017-09-06 08:33] LABS: HEMATOCRIT 31.4 % (39.0-51.0); HEMOGLOBIN 10.5 GM/DL (13.0-17.0); MEAN CELL VOLUME 81.2 FL (80.0-100.0); MEAN CORPUSCULAR HEMOGLOBIN 27.1 PG (27.0-34.0); MEAN CORPUSCULAR HGB CONC 33.3 % (32.0-36.0); MEAN PLATELET VOLUME 9.4 FL (7.0-11.0); PLATELET COUNT 288 TH/MM3 (150-450); RED BLOOD COUNT 3.86 MIL/MM3 (4.50-5.90); RED CELL DISTRIBUTION WIDTH 15.3 % (11.6-17.2); WHITE BLOOD COUNT 8.8 TH/MM3 (4.0-11.0)
[2017-09-06 08:48] LABS: PROTHROMBIN TIME - PATIENT 10.7 SEC (9.8-11.6)
[2017-09-06 08:56] LABS: BICARBONATE 32.7 MEQ/L (21.0-32.0); CALCIUM 8.7 MG/DL (8.5-10.1); CREATININE 4.62 MG/DL (0.60-1.30)
[2017-09-06] MEDS: INSULIN DETEMIR 100 UNITS/ML VIAL SQ SCH ×2 (09:22→21:25)
[2017-09-06] MEDS ORDERED: POTASSIUM CHLOR 20 MEQ PREMIX 100 ML IV ONE (09:30)
[2017-09-06] MEDS: hydrALAZINE HCL 20 MG/ML VIAL IV PUSH PRN ×3 (10:36→21:25)
[2017-09-06] MEDS: fentaNYL DRIP 250 ML IV PRN ×2 (11:28→23:01)
--- NOTE | 2017-09-06 11:31 | HHI.NPPN ---
Subjective Renal Failure: Acute Interval History Sedated on ventilator. Excellent urine output, renal function improved slightly. Due for PEG today. (Ashly Lutz) Review of Systems General General Remarks unable to obtain (Ashly Lutz) Objective Data Data 09/06/17 09/07/17 19:00 07:00 Intake Total 100 ml Balance 100 ml Intake IV Total 100 ml Vital Signs Date Time Temp Pulse Resp B/P (MAP) Pulse Ox O2 Delivery O2 Flow Rate FiO2 09/06/17 10:00 71 09/06/17 08:47 99 40 09/06/17 08:00 100.2 72 20 160/87 (111) 99 09/06/17 08:00 40 09/06/17 08:00 72 09/06/17 07:00 99 Mechanical Ventilator 40 09/06/17 06:00 73 09/06/17 04:06 99 40 09/06/17 04:00 78 09/06/17 04:00 40 09/06/17 04:00 100.2 78 20 145/75 (98) 99 09/06/17 02:00 80 09/06/17 00:00 100.4 88 20 145/74 (97) 97 09/06/17 00:00 88 09/06/17 00:00 40 09/05/17 23:15 97 40 09/05/17 22:00 90 146/72 09/05/17 22:00 90 09/05/17 20:51 98 40 09/05/17 20:00 99.4 86 20 146/71 (96) 98 09/05/17 20:00 40 09/05/17 20:00 86 09/05/17 19:00 95 Mechanical Ventilator 40 09/05/17 18:53 87 120/58 09/05/17 18:00 87 09/05/17 16:17 99 40 09/05/17 16:00 82 09/05/17 16:00 99.5 80 20 158/88 (111) 99 09/05/17 16:00 40 09/05/17 14:00 78 09/05/17 12:00 85 09/05/17 12:00 99.5 85 20 150/82 (104) 100 09/05/17 12:00 40 09/05/17 11:48 100 40 (Ashly Lutz) -: 09/06/17 0802 09/06/17 0802 Imaging Last 72 hours Impressions Chest X-Ray 09/04/17 0600 Signed Impressions: Service Date/Time: Wednesday, September 04, 2017 04:42 - CONCLUSION: 1. Rotated single view examination with hazy opacity in the left perihilar region. 2. The heart size remains enlarged. Angelo Conn MD Tubes & Lines: Coleman Drip Comment fentanyl, propofol; nicardipine on hold (Ashly Lutz B. DIRECTIONAL DRILL OPERATOR) Physical Exam General Appearance: Well Developed, No Acute Distress, Comfortable Appearance Remarks unresponsive, intubated (Ashly Lutz B. DIRECTIONAL DRILL OPERATOR) Neck Neck Exam: Neck Supple (Ashly Lutz B. DIRECTIONAL DRILL OPERATOR) Pulmonary Resp Exam: Clear Bilaterally, Breath Sounds Equal (Go Lutzon B. DIRECTIONAL DRILL OPERATOR) Cardiology CV Exam: Regular, Normal Sinus Rhythm (Ashly Lutz B. DIRECTIONAL DRILL OPERATOR) Gastrointestinal/Abdomen GI Exam: Soft, Non-Tender, Distended (Ashly Lutz B. DIRECTIONAL DRILL OPERATOR) Genitourinary Exam: Clear Urine (Ashly Lutz B. DIRECTIONAL DRILL OPERATOR) Musculoskeletal MS Exam: Joints Intact, Normal Tone, Unable to Ambulate (Go Lutzon B. DIRECTIONAL DRILL OPERATOR) Integumentary Skin Exam: Warm, Dry, Intact (Go Lutzon B. DIRECTIONAL DRILL OPERATOR) Extremeties Extremities Exam: Pedal Pulses Palpable, Moderate Edema (Go Lutzon B. DIRECTIONAL DRILL OPERATOR) Neurologic Neuro Exam: Unresponsive, Sedated (Ashly Lutz BEmmanuel DIRECTIONAL DRILL OPERATOR) Assessment/Plan Assessment Summary: Hypertension Problem List: (1) Acute kidney injury ICD Codes: N17.9 - Acute kidney failure, unspecified Status: Acute Plan: Baseline creatinine around 2. He most likely has underlying CKD. RAFAELA most likley due to renal hypoperfusion resulting from normalization of BP. Renal function is improving. Excellent urine output. Dialysis not indicated at this time. Avoid IVF, nephrotoxic agents. Potassium replacement has been ordered Repeat labs in AM (2) Hemorrhagic stroke ICD Codes: I61.9 - Nontraumatic intracerebral hemorrhage, unspecified Status: Acute Plan: Neurosurgery has followed, serial imaging reviewed. Non surgical management at this time. (3) Hypertension ICD Codes: I10 - Hypertension Status: Chronic Plan: Cardene gtt has been stopped. Oral medications started Monitor and titrate to effect. (Ashly Lutz) Plan patient was seen and examined. Agree with above assessment and plan. Renal function is improving. No need for dialysis. Avoid nephrotoxic agents. (Adolph Rachel MD) Ashly Lutz Sep 06, 2017 11:31 Adolph Rachel MD Sep 07, 2017 10:43
--- NOTE | 2017-09-06 11:42 | HHI.CCPN ---
Subjective Remarks/Hospital Course Hospital Course: 46 y/o man with longstanding hypertension and previous CVA presents obtunded with new neurological symptoms noticed prior to arrival. Timeline unclear. Required intubation in ED for airway protection. CT head shows left thalamic bleed and shift away from bleed. Toxicology screen pending. Subjective: 08/30: encephalopathy persists. bp under better control, still on cardene. on sedation vacation, moves left side spontaneously but nothing on right. 08/31: overnight, severely agitated, requiring high dose sedation. also, lambert obstructed, new lambert placed with improvement in obstruction. this morning, RAFAELA with Cr up to 3. urine Na < 10, suggestive of pre-renal etiology. continued ivf. high peak pressures on vent. suction lavage with thick tenacious secretions. bronch with left lobe mucous plugging. bronchospasm a significant problem requiring iv magnesium and duonebs. finally attempted small paralytic dose with improvement in abdominal breathing and fighting ventilator. 09/01: No improvement in neuro exam, intermittent jerking movements noted by the RN no seizure. Creatinine for urine output adequate. I have consulted nephrology. We'll check CT of the head repeat EEG tomorrow a.m. 09/02: Clinically remains same. Did not tolerate sedation vacation, became hypertensive. CT head today showed slight improvement in L thalamic and IVH. Dr. Tinajero is the neurosurgeon, Dr. Jhaveri covering 09/03: Still unable to tolerate sedation vacation. Becomes very asynchronous with the vent with desaturations. Discussed with daughters about possible tracheostomy, they want to discuss with their mom, patient's ex -. Creatinine has worsened to 5.1 but no acute indication for dialysis. Will check ABG urine output 1.8 L in 24 hours 09/04: Remains intubated sedated synchronous with the vent. Noted to have tongue swelling/angioedema. Lisinopril discontinued. Placed on Decadron and IV Benadryl. Plan for tracheostomy and PEG tube placement next week 09/05: Patient remains intubated sedated critically ill. No change or improvement in neuro status. Lisinopril discontinued yesterday Decadron and Benadryl started tongue swelling is improved. Hyperglycemia secondary to Decadron, random blood sugar 360. Will wean to DC. Plan for trach and PEG this week, if family agreeable 09/06: Angioedema improving with Decadron and Benadryl. Still gets very agitated with sedation lightening. Needs improved blood pressure control increase clonidine to 0.3 every 8 hours. Plan for PEG today and Trach 09/08/17 Objective Vital Signs Date Time Temp Pulse Resp B/P (MAP) Pulse Ox O2 Delivery O2 Flow Rate FiO2 09/06/17 10:00 71 09/06/17 08:47 99 40 09/06/17 08:00 100.2 20 160/87 (111) 09/06/17 07:00 Mechanical Ventilator Intake and Output 09/06/17 09/06/17 09/07/17 08:00 16:00 00:00 Intake Total 573 ml 100 ml Output Total 1775 ml Balance -1202 ml 100 ml Result Diagram: 09/06/1780109/06/17801 Objective Remarks Gen: Intubated sedated Head: Atraumatic. Conjunctivae injected. ENT: Tongue swollen/angioedema with laceration from bite. +Drooling of secretions Neck: Supple, orally intubated. Lungs: Bilateral scattered wheezing Heart: Tachycardia, RR. Intermittently hypertensive Abdomen: Mildly distended, No guarding. Extremities: Warm, well perfused. Neuro: RASS -4 on propofol and fentanyl. moves LUE/LLE spontaneously, no movement on right. does not follow commands. w/d to pain left side. pupils equal , round A/P Problem List: (1) Intracranial hemorrhage ICD Code: I62.9 - Nontraumatic intracranial hemorrhage, unspecified Status: Acute (2) Hemorrhagic stroke ICD Code: I61.9 - Nontraumatic intracerebral hemorrhage, unspecified Status: Acute (3) Hypertensive emergency ICD Code: I10 - Hypertensive emergency Status: Acute Assessment and Plan Assessment: 46yM with left thalamic hypertensive hemorrhagic IPH, ICH score 2. remains off pathway, poor neurologic exam. continue tight bp control. frequent neuro checks. cannot SBT or extubate while encephalopathic and hypertensive. Do not tolerate sedation vacation. Plan for trach and PEG this week Active Problems: Acute encephalopathy Left Thalamic Hemorrhage, with IV extension Intracerebral Hemorrhage, ICH score 2 Acute hypoxic and Hypercarbic Respiratory failure Hypertensive Emergency Ventilatory Dyssynchrony Agitated Delirium Acute kidney failure Angioedema most likely EMIL inhibitor induced Hyperglycemia Plan: - Unable to do sedation vacation due to severe ventilator synchrony and desaturation - Sedation vacation after trach this week, tentatively planned for 09/08/17. PEG today 09/06 - Seroquel 100mg po q8hr for agitation. Clonidine 0.1 mg PO [id number] to 0.3 every 8 hours - Haldol 5mg iv q4h prn for breakthrough agitation - oxycodone 10mg po q4h. Fentanyl, propofol. Very hypertensive on attempted sedation vacation - Scheduled Ativan 2mg po q8 09/05/17, to help reduce IV sedation - Requiring prn boluses of neuromuscular blockade if we cannot get control of vent synchrony. - CT head 09/02 improving left thalamic and intraventricular hemorrhage, EEG severe encephalopathy - D/W Dr. Tinajero 09/01, frequent neuro checks - goal SBP < 150. Cardene/labetalol/hydralazine prn - Renal ultrasound, nephrology consult. Dr. Rachel has seen the patient no indication for emergency dialysis. Creat improved from 4.9 to 4.6, UO 3.5L in 24 hours - TF at goal, bowel regimen-change to Glucerna - hyperglycemia secondary to Decadron. Started Levemir 10 units every 12, continue sliding scale - Lisinopril discontinued. Continue on IV Decadron and Benadryl - SCDs. hold pharmacologic DVT prophylaxis given ICH. Start Lovenox if cleared by Dr. Tinajero (RADHA Ontiveros will let me know) - Protonix. Overall impression: Critically ill with hypertensive emergency and thalamic bleed. Not tolerating weaning trials, Trach PEG this week level 3 Ladan Pierre MD Sep 06, 2017 11:42
[2017-09-06] MEDS ORDERED: cloNIDine HCL 0.1 MG TAB PO ONE (11:45)
[2017-09-06] MEDS ORDERED: PROPOFOL 200 MG/20 ML AMP IV ONE (12:00)
[2017-09-06] MEDS: cloNIDine HCL 0.3 MG TAB PO SCH ×2 (13:10→21:26)
--- NOTE | 2017-09-06 16:51 | GIPROC ---
[facility] [address] [facility]. [facility], [address] EGD WITH PEG PROCEDURE REPORT EXAM DATE: 09/06/2017 PATIENT NAME: Hadley Matos MR#: [id number] BIRTHDATE: 1970 ATTENDING: Teresa Beverly MD ORDER #: [id number] [employer] OWNER: Amy Barahona and Bryan Wang STATUS: inpatient INDICATIONS: The patient is a 46 yr old male here for an EGD with PEG due to dysphagia PROCEDURE PERFORMED: EGD with PEG placement MEDICATIONS: None and Per Anesthesia. TOPICAL ANESTHETIC: CONSENT: The patient understands the risks and benefits of the procedure and understands that these risks include, but are not limited to: sedation, allergic reaction, infection, perforation and/or bleeding. Alternative means of evaluation and treatment include, among others: physical exam, x-rays, and/or surgical intervention. The patient elects to proceed with this endoscopic procedure. medical equipment was checked for proper function. Hand hygiene and appropriate measures for infection prevention was taken. After the risks, benefits and alternatives of the procedure were thoroughly explained, Informed consent was verified, confirmed and timeout was successfully executed by the treatment team. The patient was anesthetized with topical anesthesia and the Pentax [id number] endoscope was introduced through the mouth and advanced to the second portion of the duodenum. The instrument was slowly withdrawn as the mucosa was fully examined. The upper, middle, and distal third of the esophagus were carefully inspected and no abnormalities were noted. The z-line was well seen at the GEJ. The endoscope was pushed into the fundus which was normal including a retroflexed view. The antrum, first and second part of the duodenum were unremarkable. The stomach was then inflated with air, and by a combination of transillumination and manual palpation, the site for the gastrostomy tube placement was selected and marked on the anterior abdominal wall. The skin of the anterior abdomen was surgically prepped and draped with sterile towels. Utilizing strict sterile technique, the selected site was then anesthetized with 1% xylocaine by injection into the skin and subcutaneous tissue. A 1 cm incision was made through the skin and subcutaneous tissue, and the needle/cannula assembly was then passed through the abdominal wall and through the anterior wall of the stomach, maintaining visualization with the endoscope. A snare device previously placed through the instrument channel was then opened and placed around the cannula, the needle was removed, and the insertion wire was passed through the cannula and into the stomach lumen. The snare was then loosened from the cannula, and repositioned to snare the insertion wire. The snare was then pulled up to the endoscope distal tip, and the scope was then withdrawn bringing with it the snare and insertion wire. The insertion wire was then released from the snare, and then loop-attached to the gastrostomy tube. Using the "pull technique", the G-tube was then pulled into place by traction on the insertion wire at the abdominal wall end. The G-tube insertion site was then cleansed once again, and the external bolster was placed over the tube to secure it to the abdominal wall. A sterile dressing was then applied, and the procedure terminated. a hiatal hernia The gastroscope was then slowly withdrawn and removed. ADVERSE EVENT: There were no complications. IMPRESSIONS: 1. The upper, middle, and distal third of the esophagus were carefully inspected and no abnormalities were noted. The z-line was well seen at the GEJ. The endoscope was pushed into the fundus which was normal including a retroflexed view. The antrum, first and second part of the duodenum were unremarkable. 2. A hiatal hernia RECOMMENDATIONS: ok to use peg for meds today abdominal binder start tf in am REPEAT EXAM: Teresa Beverly MD eSigned: Teresa Beverly MD 09/06/2017 4:51 PM cc: PATIENT NAME: Hadley Matos MR#: [id number]
[2017-09-06] MEDS: ATORVASTATIN 40 MG TAB PO SCH (20:04)
[2017-09-06] MEDS ORDERED: HEPARIN SODIUM - SQ 10,000 UNITS/ML VIAL SQ SCH (21:00)
--- NOTE | 2017-09-06 21:56 | HHI.NSPN ---
History Chief Complaint: intubated and sedated Interval History 46-year-old male with history of hypertension who was brought to the emergency room per E [facility] after being found with altered mental status, right hemiparesis. He had reportedly been seen to be normal approximately 3-1/2 hours prior. Systolic blood pressure greater than 260/130 on initial evaluation. No seizure activity reported. Positive emesis. Per emergency room personnel the patient was responding verbally, difficulty raising his right arm upon initial arrival. He was intubated in the emergency room and a stat CT scan accomplished which has revealed a primarily left thalamic intracranial hemorrhage. 09/01/17: Patient remains intubated and sedated. 09/02/17: Follow-up CT scan head with mild initial decreased intraventricular hemorrhage, no new thalamic hemorrhage, mild decreased mass effect. 09/03/17: Remains on propofol and fentanyl IV for ventilator control. Positive agitation with decreased sedation 09/06/17: Remains intubated. PEG tube placed today. On Decadron and Benadryl for angioedema. Lisinopril discontinued Exam Results Vital Signs Date Time Temp Pulse Resp B/P (MAP) Pulse Ox O2 Delivery O2 Flow Rate FiO2 09/06/17 21:11 96 30 09/06/17 20:00 76 09/06/17 20:00 100.8 20 159/80 (106) 09/06/17 19:00 Mechanical Ventilator Intake and Output 09/06/17 09/06/17 09/07/17 08:00 16:00 00:00 Intake Total 573 ml 500 ml 100 ml Output Total 1775 ml 2000 ml Balance -1202 ml 500 ml -1900 ml Physical Examination General: Pt intubated and sedated in no acute distress. Eyes: 2mm bilaterally NR bilaterally. Sclera anicteric. ENT: Moderate angioedema. Resp: Intubated. CTA bilaterally. PRVC rate 20. Peep 8. FiO2 40%. Heart: NSR no murmurs. Cardene drip. Abd: Distended but soft. Positive bs. PEG tube Skin: No cyanosis or erythema. SCDs in place. Muscle: Not following for muscle testing. Pt remains sedated. Neuro: Pt sedated on Diprivan and Fentanyl drips. Not following commands. Pupils 2mm bilaterally NR bilaterally. Lab, Micro, Other Results Laboratory Tests Test 09/06/17 08:02 White Blood Count 8.8 TH/MM3 Red Blood Count 3.86 MIL/MM3 Hemoglobin 10.5 GM/DL Hematocrit 31.4 % Mean Corpuscular Volume 81.2 FL Mean Corpuscular Hemoglobin 27.1 PG Mean Corpuscular Hemoglobin Concent 33.3 % Red Cell Distribution Width 15.3 % Platelet Count 288 TH/MM3 Mean Platelet Volume 9.4 FL Prothrombin Time 10.7 SEC Prothromb Time International Ratio 1.0 RATIO Activated Partial Thromboplast Time 26.8 SEC Blood Urea Nitrogen 63 MG/DL Creatinine 4.62 MG/DL Random Glucose 211 MG/DL Calcium Level 8.7 MG/DL Sodium Level 146 MEQ/L Potassium Level 3.1 MEQ/L Chloride Level 108 MEQ/L Carbon Dioxide Level 32.7 MEQ/L Anion Gap 5 MEQ/L Estimat Glomerular Filtration Rate 17 ML/MIN Phosphorus Level 3.5 MG/DL Medical Decision Making Impression and Plan Impression: 1. No improvement in neurologic exam since admission following relatively large thalamic intracranial hemorrhage. PEG tube in place Recommendations: Patient's family desires continued full supportive care measures. PEG tube placed. Tracheostomy planned for later in the week. Remains on ventilatory support with IV sedation due to agitation. Patient's family has previously been advised of the severe nature of the hemorrhage. I advised them that prognosis is uncertain at this point. It is likely however that he will have a protracted recovery. There is no guarantee that he will have any significant improvement in his mental functions. Palliative care as following Orville Tinajero MD Sep 06, 2017 21:56
[2017-09-07] VITALS (18 sets, daily range): BP systolic 128–160; BP diastolic 65–86; PULSE 76–84; RESP 20; TEMP 100.2–100.9; O2SAT 94–98
[2017-09-07] MEDS: PROPRANOLOL HCL 10 MG TAB PO SCH ×4 (00:05→17:19)
[2017-09-07] MEDS: diphenhydrAMINE HCL 50 MG/ML VIAL IV SCH ×2 (00:06→08:27)
[2017-09-07] MEDS: oxyCODONE HCL ORAL CONC 5 MG/0.25 ML SYRINGE PO SCH ×6 (00:08→19:56)
[2017-09-07] MEDS: PROPOFOL 1000 MG/100 ML INJ 100 ML IV PRN ×7 (01:16→23:41)
[2017-09-07] MEDS: RESP: ALBUTEROL 2.5 MG/IPRATROPIUM 0.5 MG NEB (SCH) NEB ×4 (03:41→21:17)
[2017-09-07] MEDS: CHLORHEXIDINE GLUCONATE 2 % 1 PACK (2 CLOTHS) TOP SCH (04:00)
[2017-09-07] MEDS: cloNIDine HCL 0.3 MG TAB PO SCH ×3 (05:28→21:53)
[2017-09-07] MEDS: DEXAMETHASONE SOD PHOS 4 MG/ML VIAL IV PUSH SCH (05:28)
[2017-09-07] MEDS: QUEtiapine FUMARATE 100 MG TAB PO SCH ×3 (05:29→21:53)
[2017-09-07] MEDS: PIPERACIL-TAZO 2.25 GM PREMIX 50 ML IV SCH ×3 (05:30→21:53)
--- NOTE | 2017-09-07 05:45 | RADRPT ---
EXAM DATE/TIME: 09/07/2017 05:17 [place] COMPARISON: CHEST SINGLE AP, September 04, 2017, 4:42. INDICATIONS : Respiratory distress. MEDICAL HISTORY : Stroke. Hypertension SURGICAL HISTORY : None. ENCOUNTER: Initial ACUITY: 4 - 6 days PAIN SCORE: Non-responsive. LOCATION: Bilateral chest FINDINGS: ET tube tip is 3.8 cm from the connie. The heart size is within normal limits. The lungs are grossly clear. CONCLUSION: The lungs appear grossly clear. The aeration in the lungs has improved from the prior exam. Ignacio Candelaria MD on September 07, 2017 at 5:42 Board Certified Radiologist. This report was verified electronically.
[2017-09-07] MEDS: INSULIN NovoLIN REGULAR SUPPLEMENTAL SCALE SQ SCH ×4 (06:00→17:08)
[2017-09-07 06:21] LABS: ALBUMIN 2.1 GM/DL (3.4-5.0); AST (GOT) 140 U/L (15-37); BICARBONATE 29.8 MEQ/L (21.0-32.0); BLOOD UREA NITROGEN 64 MG/DL (7-18); CALCIUM 8.8 MG/DL (8.5-10.1); CHLORIDE 106 MEQ/L (98-107); CREATININE 4.38 MG/DL (0.60-1.30); GLOMERULAR FILTRATION RATE 18 ML/MIN (>89); GLUCOSE,RANDOM 167 MG/DL (74-106); MAGNESIUM 2.5 MG/DL (1.5-2.5); SODIUM (NA) 144 MEQ/L (136-145)
[2017-09-07 06:25] LABS: ALKALINE PHOSPHATASE 51 U/L (45-117); ALT (GPT) 121 U/L (12-78); TOTAL BILIRUBIN ADULT 0.4 MG/DL (0.2-1.0); TOTAL PROTEIN 6.8 GM/DL (6.4-8.2)
[2017-09-07] MEDS: CHLORHEXIDINE 0.12% (ORAL KIT) 15 ML CUP MT SCH ×2 (08:00→19:57)
[2017-09-07] MEDS: LORazepam 2 MG TAB PO SCH ×2 (08:26→14:35)
[2017-09-07] MEDS: PANTOPRAZOLE SODIUM 40 MG VIAL IV PUSH SCH (08:26)
[2017-09-07] MEDS: HYDROCHLOROTHIAZIDE 25 MG TAB PO SCH (08:26)
[2017-09-07] MEDS: CALCIUM ACETATE 667 MG CAP PO SCH ×3 (08:27→17:17)
[2017-09-07] MEDS: FLUTICASONE PROPIONATE 50 MCG/ACT 16 GM NASAL SPRAY EACH NARE SCH (08:27)
[2017-09-07] MEDS: DOCUSATE SODIUM 50 MG/SENNA 8.6 MG TAB PO SCH ×2 (08:27→19:56)
[2017-09-07] MEDS: POLYETHYLENE GLYCOL 17 GM PKG PO SCH ×2 (08:27→19:56)
[2017-09-07] MEDS: hydrALAZINE HCL 20 MG/ML VIAL IV PUSH PRN (08:27)
[2017-09-07 09:44] LABS: AUTOMATED NEUTROPHIL # 8.4 TH/MM3 (1.8-7.7); BASOPHIL # 0.1 TH/MM3 (0-0.2); BASOPHIL % 0.8 % (0.0-2.0); EOSINOPHIL # 0.1 TH/MM3 (0-0.4); HEMATOCRIT 34.6 % (39.0-51.0); HEMOGLOBIN 11.5 GM/DL (13.0-17.0); LYMPH % 8.9 % (9.0-44.0); MEAN CELL VOLUME 81.4 FL (80.0-100.0); MEAN CORPUSCULAR HEMOGLOBIN 27.2 PG (27.0-34.0); MEAN CORPUSCULAR HGB CONC 33.4 % (32.0-36.0); MONO % 10.2 % (0.0-8.0); MONOCYTE # 1.1 TH/MM3 (0-0.9); NEUT % 79.1 % (16.0-70.0); PLATELET COUNT 336 TH/MM3 (150-450); RED BLOOD COUNT 4.25 MIL/MM3 (4.50-5.90); RED CELL DISTRIBUTION WIDTH 15.1 % (11.6-17.2); WHITE BLOOD COUNT 10.6 TH/MM3 (4.0-11.0)
[2017-09-07] MEDS ORDERED: GELATIN 12 MM/7 MM FOAM ONE (09:47)
[2017-09-07] MEDS: INSULIN DETEMIR 100 UNITS/ML VIAL SQ SCH ×2 (10:00→21:53)
[2017-09-07] MEDS ORDERED: SILVER NITR/POTASSIUM NITRATE APPLICATORS TOPICAL ONE (10:15)
--- NOTE | 2017-09-07 10:54 | HHI.GIFU ---
GI Follow-up Note Consult Follow-up Called earlier today by nurse, some bleeding from PEG site placed yesterday , few dressing were changed since am. LAbs done -normal for now Vitals stable Orders for Gelfoam, placed around peg site.silver nitrate applicators ordered Imp bleeding from Peg tube site, most likely from incision site, patient noted to bleed easily yesterday during procedure , possible platelets dysfunction due to renal insufficiency -not hemodynamically significant at this point Recommendations : NPO except medications hold heparin sq-discussed with nurse-no dosage given today or last tobacco cloth reclaimer closely Gelfoam as ordered if further bleeding we will try Silver nitrate applicators, epinephrine injection, repeat egd with therapy, ddavp keep pressure dressing call if worsening bleeding discussed with nurse, , family . It was a pleasure seeing Hadley Matos. Thank you for this consult. Entered by: Teresa Salinas MD Sep 07, 2017 10:54
--- NOTE | 2017-09-07 11:36 | HHI.GIFU ---
Subjective Remarks resting in bed, sedated with fentanyl and propofol, remains on ventilator management PEG tube inserted 09/06, bleeding at site noted last a.m., Gelfoam applied dressing resecured, evaluated per Dr. Beverly this a.m. No family present Fever 100.9 (Nandini Arzloa) Objective Vitals I&O Vital Signs Date Time Temp Pulse Resp B/P (MAP) Pulse Ox O2 Delivery O2 Flow Rate FiO2 09/07/17 11:25 94 30 09/07/17 08:16 97 30 09/07/17 06:00 77 09/07/17 04:03 97 30 09/07/17 04:00 100.9 77 20 159/84 (109) 96 09/07/17 04:00 77 09/07/17 04:00 40 09/07/17 02:00 76 09/07/17 00:07 95 30 09/07/17 00:00 40 09/07/17 00:00 100.4 79 20 128/65 (86) 94 09/07/17 00:00 79 09/06/17 22:00 78 09/06/17 21:11 96 30 09/06/17 20:00 76 09/06/17 20:00 40 09/06/17 20:00 100.8 76 20 159/80 (106) 97 09/06/17 19:00 96 Mechanical Ventilator 30 09/06/17 18:00 74 09/06/17 17:05 95 30 09/06/17 16:00 100.0 74 20 134/65 (88) 96 09/06/17 16:00 74 09/06/17 16:00 40 09/06/17 14:00 75 09/06/17 12:00 40 09/06/17 12:00 74 09/06/17 12:00 100.2 74 20 134/65 (88) 95 09/06/17 11:45 100 30 I/O 09/06/17 09/06/17 09/06/17 09/07/17 09/07/17 09/07/17 07:00 15:00 23:00 07:00 15:00 23:00 Intake Total 573 ml 500 ml 584 ml 831 ml Output Total 1775 ml 2000 ml 1900 ml Balance -1202 ml 500 ml -1416 ml -1069 ml Intake IV Total 500 ml 484 ml 591 ml Tube Feeding 233 ml 0 ml 0 ml Other 340 ml 100 ml 240 ml Output Urine Total 1775 ml 2000 ml 1900 ml # Bowel Movements 0 0 0 Laboratory Laboratory Tests Test 09/07/17 05:15 09/07/17 09:24 Blood Urea Nitrogen 64 Creatinine 4.38 Random Glucose 167 Total Protein 6.8 Albumin 2.1 Calcium Level 8.8 Magnesium Level 2.5 Alkaline Phosphatase 51 Aspartate Amino Transf (AST/SGOT) 140 Alanine Aminotransferase (ALT/SGPT) 121 Total Bilirubin 0.4 Sodium Level 144 Potassium Level 3.1 Chloride Level 106 Carbon Dioxide Level 29.8 Anion Gap 8 Estimat Glomerular Filtration Rate 18 White Blood Count 10.6 Red Blood Count 4.25 Hemoglobin 11.5 Hematocrit 34.6 Mean Corpuscular Volume 81.4 Mean Corpuscular Hemoglobin 27.2 Mean Corpuscular Hemoglobin Concent 33.4 Red Cell Distribution Width 15.1 Platelet Count 336 Mean Platelet Volume 9.0 Neutrophils (%) (Auto) 79.1 Lymphocytes (%) (Auto) 8.9 Monocytes (%) (Auto) 10.2 Eosinophils (%) (Auto) 1.0 Basophils (%) (Auto) 0.8 Neutrophils # (Auto) 8.4 Lymphocytes # (Auto) 1.0 Monocytes # (Auto) 1.1 Eosinophils # (Auto) 0.1 Basophils # (Auto) 0.1 CBC Comment DIFF FINAL Differential Comment Date/Time Source Procedure Growth Status 08/31/17 06:05 Blood Peripheral Aerobic Blood Culture - Final NO GROWTH IN 5 DAYS Complete 08/31/17 06:05 Blood Peripheral Anaerobic Blood Culture - Final NO GROWTH IN 5 DAYS Complete 08/30/17 09:10 Sputum Endotracheal Gram Stain - Final Complete 08/30/17 09:10 Sputum Endotracheal Sputum Culture - Final MODERATE GROWTH NORMAL RESPIRATORY ESTELITA Complete 08/31/17 05:30 Urine Catheterized Urine Urine Culture - Final NO GROWTH IN 48 HOURS. Complete Imaging Last Impressions Chest X-Ray 09/07/17 0600 Signed Impressions: Service Date/Time: Thursday, September 07, 2017 05:17 - CONCLUSION: The lungs appear grossly clear. The aeration in the lungs has improved from the prior exam. Ignacio Candelaria MD Head CT 09/02/17 06 Signed Impressions: Service Date/Time: August 03:11 - CONCLUSION: 1. Slowly decreasing left thalamic and intraventricular hemorrhage. Decreased rightward midline shift, currently approximately 2.5 mm. 2. No new hemorrhage or other acute intracranial abnormality. 3. Paranasal sinusitis has developed. Ignacio Lares MD Renal Ultrasound 08/31/17 0000 Signed Impressions: Service Date/Time: Thursday, August 31, 2017 17:42 - CONCLUSION: 1. No evidence of hydronephrosis on either side. 2. Solitary linear echogenic focus in the upper pole parenchyma of the right kidney has similar features to prior examination in January 2017 and possibly represents a calcification. David Snell MD Neck CTA 08/28/17 2347 Signed Impressions: Service Date/Time: Tuesday, August 29, 2017 00:13 - CONCLUSION: Negative carotid CTA. David Snell MD Head CTA 08/28/17 2347 Signed Impressions: Service Date/Time: Tuesday, August 29, 2017 00:13 - CONCLUSION: 1. No evidence of vessel truncation or aneurysm. 2. No abnormal vessels in the region of the large left thalamic hemorrhage. David Snell MD Physical Exam HEENT: normocephalic; atraumatic; no jaundice. ET tube per oral cavity, mild tongue edema NECK: Neck is supple, obese, no lymphadenopathy. CHEST: Chest is clear to auscultation and percussion. Mild rhonchi noted anteriorly CARDIAC: Regular rate and rhythm, S1, S2 ABDOMEN: Round, distended, tympanic, no hepatosplenomegaly palpated; bowel sounds soft 4 quads, PEG tube intact with bulky dressing EXTREMITIES: 1+ lower extremity edema SKIN: no rash; no jaundice. IMPORTER OR EXPORTER: Sedated (Nandini Arzola) Assessment and Plan Plan ASSESSMENT: - Left Thalamic and Intraventricular Hemorrhage. EEG shows severe encephalopathy. Patient is sedated on vent. Long-term nutritional needs; EGD with PEG tube inserted on 09-06. Bleeding around PEG tube site noted this past a.m.. Evaluated per Dr. Beverly Gelfoam applied with bulky dressing. Continues with small amount of bleeding at site with clotting. Elevated LFTs, etiology unclear, suspect hepatic congestion vs medications. Patient treated for angioedema with Decadron and Benadryl; Patient also has had PO Clonidine by mouth increased for blood pressure control Patient does have history of acute on chronic renal failure, congestive heart failure with some lower extremity edema, abdomen tympanic. Abdomen tympanic ; checked for residuals, none noted at present. PLAN: Monitor PEG tube site for increase in bleeding. Call for any increase in bleeding NPO except medications Hold subcutaneous heparin Gelfoam as ordered per Dr. Beverly Pressure dressing and reinforce as needed - Further recommendations to follow based on results of above. (See follow-up note 09-07 Dr. Beverly) Monitor LFTs in a.m. Liver ultrasound for initial evaluation Patient seen and examined by Dr. Beverly and myself and this note is written on his behalf. (Nandini Arzola) Physician Comments reevaluated tonight some bleeding still present , but significantly reduced -Gelfoam, Surgicel applied also silver nitrate applicators used around the incision DDAVP given we will monitor closely if further bleeding we will consider epi injection/egd , possible surgical suture application at the incision site hb at 10 pm (Teresa Beverly MD) Nandini Arzola Sep 07, 2017 11:36 Teresa Beverly MD Sep 07, 2017 19:35
--- NOTE | 2017-09-07 11:43 | HHI.NPPN ---
Subjective Renal Failure: Acute Interval History Still intubated. Becomes agitated off sedation. Renal function is improving. He had PEG placed yesterday. (Ashly Lutz) Review of Systems General General Remarks unable to obtain (Ashly Lutz) Objective Data Data Vital Signs Date Time Temp Pulse Resp B/P (MAP) Pulse Ox O2 Delivery O2 Flow Rate FiO2 09/07/17 11:25 94 30 09/07/17 08:16 97 30 09/07/17 06:00 77 09/07/17 04:03 97 30 09/07/17 04:00 100.9 77 20 159/84 (109) 96 09/07/17 04:00 77 09/07/17 04:00 40 09/07/17 02:00 76 09/07/17 00:07 95 30 09/07/17 00:00 40 09/07/17 00:00 100.4 79 20 128/65 (86) 94 09/07/17 00:00 79 09/06/17 22:00 78 09/06/17 21:11 96 30 09/06/17 20:00 76 09/06/17 20:00 40 09/06/17 20:00 100.8 76 20 159/80 (106) 97 09/06/17 19:00 96 Mechanical Ventilator 30 09/06/17 18:00 74 09/06/17 17:05 95 30 09/06/17 16:00 100.0 74 20 134/65 (88) 96 09/06/17 16:00 74 09/06/17 16:00 40 09/06/17 14:00 75 09/06/17 12:00 40 09/06/17 12:00 74 09/06/17 12:00 100.2 74 20 134/65 (88) 95 09/06/17 11:45 100 30 (Ashly Lutz) -: 09/07/17 0924 09/07/17 0515 Imaging Last 72 hours Impressions Chest X-Ray 09/07/17 0600 Signed Impressions: Service Date/Time: Thursday, September 07, 2017 05:17 - CONCLUSION: The lungs appear grossly clear. The aeration in the lungs has improved from the prior exam. Ignacio Candelaria MD Tubes & Lines: Coleman Tubes & Lines Comment PEG Drip Comment fentanyl, propofol (Ashly Lutz. TODDLER TEACHER) Physical Exam General Appearance: Well Developed, No Acute Distress, Comfortable Appearance Remarks unresponsive, intubated (Ashly Lutz TODDLER TEACHER) Ears & Nose Ears & Nose Remarks resolving angioedema (Ashly Lutz TODDLER TEACHER) Neck Neck Exam: Neck Supple (Ashly Lutz TODDLER TEACHER) Pulmonary Resp Exam: Clear Bilaterally, Breath Sounds Equal (Ashly Lutz TODDLER TEACHER) Cardiology CV Exam: Regular, Normal Sinus Rhythm (Ashly Lutz. TODDLER TEACHER) Gastrointestinal/Abdomen GI Exam: Soft, Non-Tender, Distended GI Remarks + PEG (Ashly Lutz TODDLER TEACHER) Genitourinary Exam: Clear Urine (Ashly Lutz TODDLER TEACHER) Musculoskeletal MS Exam: Joints Intact, Normal Tone, Unable to Ambulate (Ashly Lutz TODDLER TEACHER) Integumentary Skin Exam: Warm, Dry, Intact (Ashly Lutz TODDLER TEACHER) Extremeties Extremities Exam: Pedal Pulses Palpable, Moderate Edema (Ashly Lutz. TODDLER TEACHER) Neurologic Neuro Exam: Unresponsive, Sedated (Ashly Lutz) Assessment/Plan Assessment Summary: Hypertension Electrolyte Assessment: Hypokalemia Problem List: (1) Acute kidney injury ICD Codes: N17.9 - Acute kidney failure, unspecified Status: Acute Plan: Baseline creatinine around 2. He most likely has underlying CKD. RAFAELA most likley due to renal hypoperfusion resulting from normalization of BP. Renal function continues to improve, dialysis is not required He has excellent urine output. Avoid IVF, nephrotoxic agents. Continue to replace potassium Repeat labs in AM May need diuresis in upcoming days. (2) Hemorrhagic stroke ICD Codes: I61.9 - Nontraumatic intracerebral hemorrhage, unspecified Status: Acute Plan: Neurosurgery has followed, serial imaging reviewed. Non surgical management at this time. (3) Hypertension ICD Codes: I10 - Hypertension Status: Chronic Plan: BP improved. Continue oral medications. Monitor and titrate to effect. (Ashly Lutz TODDLER TEACHER) Plan patient was seen and examined. Renal function is improving. No need for dialysis. (Adolph Rachel MD) Ashly Lutz [facility] Sep 07, 2017 11:43 Adolph Rachel MD Sep 08, 2017 10:47
[2017-09-07] MEDS: fentaNYL DRIP 250 ML IV PRN (12:26)
[2017-09-07] MEDS: POTASSIUM CHLOR 20 MEQ PREMIX 100 ML IV SCH ×2 (12:45→14:36)
--- NOTE | 2017-09-07 12:49 | HHI.HCPN ---
Reason for visit a. To assist with evaluation and management of symptoms including: Pain and dyspnea. b. To assist medical decision maker(s) with: better understanding of current medical conditions; weighing benefits/burdens of medical treatment options; making medical treatment decisions. . Subjective/Interval History Mr. Matos is a 46-year-old male with a medical history significant for TIA, hypertension and migraines. Patient presented to ED via EMS on 08/28/[address] as stroke alert. Head CT revealing acute hemorrhagic stroke in the right thalamus with extension of the lateral third ventricles with a shift onto the right side of 6 mm. patient was subsequently intubated and placed on mechanical ventilation. Palliative care was consulted for further clarifications of goals of care and emotional support. Patient seen in surgical ICU. He remains intubated on mechanical ventilation. Sedated on propofol, fentanyl drip. Has been unable to tolerate decrease in sedation secondary to agitation and vent asynchrony. Patient remains on full ventilator support, 30% FiO2. Chest x-ray today revealing improved aeration of lungs. Plan for tracheostomy tomorrow 09/08/17 given the above. Urinary output has improved, nephrology,Dr. Rachel following. BUN/creatinine 64/4.38 today. Patient running a low-grade temperature, max temp 100.9 today. Hypertensive with SBP in the 140s to 160s. Patient underwent PEG tube placement yesterday 09/06/17, bleeding around PEG tube site noted, patient has been evaluated by Dr. Beverly this morning. Spoke with patient's daughters Shannan and Nichole. Medical update provided. Reviewed current medical treatment and recommendations. Reviewed likely trajectory of illness to include prolonged hospitalization and rehabilitation. Reviewed tracheostomy and PEG tube placement in the setting of respiratory failure. Reviewed again that at this time is early to determine neurological deficit secondary to brain bleed. Review likelihood of prolonged hospitalization and rehabilitation. All questions were answered in great detail. Family receptive to palliative care follow-ups. Case discussed with Dr. Rachel and [place] FRANKEL. . Family/friend interactions See interval note. . Advance Directives Living Will: Never completed Health Care Surrogate: Never completed Durable Power of [employer] Principal: Never completed Advance Directive Specifics Health Care Surrogate(s): No advance directives completed as per patient's family. Patient is . As per [place] law, healthcare proxy decision making falls to the majority of patient's adult children for which he has 3 (4th child is 4 years old). Daughter Shannan, daughter Nichole and son Hadley Maddox wish to participate. . Significant change in goals: Goals of care remain unchanged. . Objective Vital Signs Date Time Temp Pulse Resp B/P (MAP) Pulse Ox O2 Delivery O2 Flow Rate FiO2 09/07/17 11:25 94 30 09/07/17 08:16 97 30 09/07/17 06:00 77 09/07/17 04:03 97 30 09/07/17 04:00 100.9 77 20 159/84 (109) 96 09/07/17 04:00 77 09/07/17 04:00 40 09/07/17 02:00 76 09/07/17 00:07 95 30 09/07/17 00:00 40 09/07/17 00:00 100.4 79 20 128/65 (86) 94 09/07/17 00:00 79 09/06/17 22:00 78 09/06/17 21:11 96 30 09/06/17 20:00 76 09/06/17 20:00 40 09/06/17 20:00 100.8 76 20 159/80 (106) 97 09/06/17 19:00 96 Mechanical Ventilator 30 09/06/17 18:00 74 09/06/17 17:05 95 30 09/06/17 16:00 100.0 74 20 134/65 (88) 96 09/06/17 16:00 74 09/06/17 16:00 40 09/06/17 14:00 75 Intake & Output 09/07/17 09/07/17 07:00 19:00 Intake Total 1215 ml Output Total 1900 ml Balance -685 ml Intake IV Total 975 ml Tube Feeding 0 ml Other 240 ml Output Urine Total 1900 ml # Bowel Movements 0 Physical Exam CONSTITUTIONAL/GENERAL: This is an obese patient intubated on mechanical ventilation. TUBES/LINES/DRAINS: ETT, PEG tube, SCDs, Coleman catheter, PIV's. SKIN: No jaundice, rashes, or lesions. No wounds seen anteriorly. Skin temperature appropriate. Not diaphoretic. HEAD: Atraumatic. Normocephalic. EYES: Pupils equal and round and reactive. No scleral icterus. No injection or drainage. ENT: Unable to evaluate hearing secondary to clinical condition. Nose without bleeding or purulent drainage. Moist oral mucosa. NECK: Trachea midline. Supple. CARDIOVASCULAR: Regular rate and rhythm without murmurs, gallops, or rubs. Peripheral pulses symmetric. RESPIRATORY/CHEST: Symmetric, unlabored respirations. Breath sounds bilaterally. Intubated on mechanical ventilation. GASTROINTESTINAL: Abdomen obese, large, round, soft. Unable to appreciate hepatomegaly secondary to body habitus. Bowel sounds present. PEG tube in place. GENITOURINARY: Without palpable bladder distension. Coleman catheter in place. MUSCULOSKELETAL: Extremities without clubbing, cyanosis, or edema. No mottling or clubbing. NEUROLOGICAL: Sedated. Unresponsive to verbal or tactile stimuli. PSYCHIATRIC: Unable to evaluate secondary to clinical condition. Appears calm. . Diagnostic Tests Laboratory Laboratory Tests Test 09/05/17 08:20 09/06/17 08:02 09/07/17 05:15 09/07/17 09:24 White Blood Count 8.5 TH/MM3 (4.0-11.0) 8.8 TH/MM3 (4.0-11.0) 10.6 TH/MM3 (4.0-11.0) Red Blood Count 4.01 MIL/MM3 (4.50-5.90) 3.86 MIL/MM3 (4.50-5.90) 4.25 MIL/MM3 (4.50-5.90) Hemoglobin 10.8 GM/DL (13.0-17.0) 10.5 GM/DL (13.0-17.0) 11.5 GM/DL (13.0-17.0) Hematocrit 33.1 % (39.0-51.0) 31.4 % (39.0-51.0) 34.6 % (39.0-51.0) Mean Corpuscular Volume 82.6 FL (80.0-100.0) 81.2 FL (80.0-100.0) 81.4 FL (80.0-100.0) Mean Corpuscular Hemoglobin 27.1 PG (27.0-34.0) 27.1 PG (27.0-34.0) 27.2 PG (27.0-34.0) Mean Corpuscular Hemoglobin Concent 32.8 % (32.0-36.0) 33.3 % (32.0-36.0) 33.4 % (32.0-36.0) Red Cell Distribution Width 15.9 % (11.6-17.2) 15.3 % (11.6-17.2) 15.1 % (11.6-17.2) Platelet Count 259 TH/MM3 (150-450) 288 TH/MM3 (150-450) 336 TH/MM3 (150-450) Mean Platelet Volume 9.4 FL (7.0-11.0) 9.4 FL (7.0-11.0) 9.0 FL (7.0-11.0) Neutrophils (%) (Auto) 85.8 % (16.0-70.0) 79.1 % (16.0-70.0) Lymphocytes (%) (Auto) 6.0 % (9.0-44.0) 8.9 % (9.0-44.0) Monocytes (%) (Auto) 7.9 % (0.0-8.0) 10.2 % (0.0-8.0) Eosinophils (%) (Auto) 0.0 % (0.0-4.0) 1.0 % (0.0-4.0) Basophils (%) (Auto) 0.3 % (0.0-2.0) 0.8 % (0.0-2.0) Neutrophils # (Auto) 7.3 TH/MM3 (1.8-7.7) 8.4 TH/MM3 (1.8-7.7) Lymphocytes # (Auto) 0.5 TH/MM3 (1.0-4.8) 1.0 TH/MM3 (1.0-4.8) Monocytes # (Auto) 0.7 TH/MM3 (0-0.9) 1.1 TH/MM3 (0-0.9) Eosinophils # (Auto) 0.0 TH/MM3 (0-0.4) 0.1 TH/MM3 (0-0.4) Basophils # (Auto) 0.0 TH/MM3 (0-0.2) 0.1 TH/MM3 (0-0.2) CBC Comment DIFF FINAL DIFF FINAL Differential Comment Blood Urea Nitrogen 61 MG/DL (7-18) 63 MG/DL (7-18) 64 MG/DL (7-18) Creatinine 4.92 MG/DL (0.60-1.30) 4.62 MG/DL (0.60-1.30) 4.38 MG/DL (0.60-1.30) Random Glucose 367 MG/DL (74-106) 211 MG/DL (74-106) 167 MG/DL (74-106) Total Protein 7.3 GM/DL (6.4-8.2) 6.8 GM/DL (6.4-8.2) Albumin 2.2 GM/DL (3.4-5.0) 2.1 GM/DL (3.4-5.0) Calcium Level 8.7 MG/DL (8.5-10.1) 8.7 MG/DL (8.5-10.1) 8.8 MG/DL (8.5-10.1) Magnesium Level 3.1 MG/DL (1.5-2.5) 2.5 MG/DL (1.5-2.5) Alkaline Phosphatase 66 U/L (45-117) 51 U/L (45-117) Aspartate Amino Transf (AST/SGOT) 64 U/L (15-37) 140 U/L (15-37) Alanine Aminotransferase (ALT/SGPT) 43 U/L (12-78) 121 U/L (12-78) Total Bilirubin 0.3 MG/DL (0.2-1.0) 0.4 MG/DL (0.2-1.0) Sodium Level 141 MEQ/L (136-145) 146 MEQ/L (136-145) 144 MEQ/L (136-145) Potassium Level 3.5 MEQ/L (3.5-5.1) 3.1 MEQ/L (3.5-5.1) 3.1 MEQ/L (3.5-5.1) Chloride Level 106 MEQ/L (98-107) 108 MEQ/L (98-107) 106 MEQ/L (98-107) Carbon Dioxide Level 26.1 MEQ/L (21.0-32.0) 32.7 MEQ/L (21.0-32.0) 29.8 MEQ/L (21.0-32.0) Anion Gap 9 MEQ/L (5-15) 5 MEQ/L (5-15) 8 MEQ/L (5-15) Estimat Glomerular Filtration Rate 16 ML/MIN (>89) 17 ML/MIN (>89) 18 ML/MIN (>89) Prothrombin Time 10.7 SEC (9.8-11.6) Prothromb Time International Ratio 1.0 RATIO Activated Partial Thromboplast Time 26.8 SEC (24.3-30.1) Phosphorus Level 3.5 MG/DL (2.5-4.9) Result Diagram: 09/07/17 0924 09/07/17 0515 Procedures * 08/28/17 -endotracheal intubation * 08/31/17 -therapeutic bronchoscopy * 09/06/17 -PEG tube placement . Assessment and Plan Disease Oriented Problem List: (1) Hemorrhagic stroke (2) Intracranial hemorrhage (3) Hypertensive emergency (4) Acute kidney injury (5) Acute encephalopathy Symptom Scale: (1) Dyspnea 0-10 Scale: Unable to quantify Comment: Secondary to acute respiratory failure. Remains intubated on mechanical ventilation. (2) Pain 0-10 Scale: Unable to quantify Comment: On fentanyl drip. Pertinent Non-Medical Issues Psychosocial: Patient originally from [facility]. He is the youngest of 4 siblings. High school education. Worked in his [employer]. 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 Patient is , has 4 children. No service. Spiritual: [employer] l[employer]. Legal: No advance directives completed as per patient's family. Ethical issues impacting care: Patient unable to participate in medical decision -making secondary to clinical condition. 3 adult children serving as healthcare proxy decision makers. . Important Contacts Daughter Shannan Matos , Daughter Nichole Matos Son Hadley Matos Ex- (mother of his children) Janet Matos . Patient's father Jem Matos . . Prognosis Mr. Matos is a 46-year-old male with a medical history significant for TIA, uncontrolled hypertension and migraines. Patient presented to ED via EMS on as stroke alert. Patient was last seen with normal neurological function approximately 3-1/2 hours prior to ED arrival. Upon ED arrival, GCS of 7, blood pressure 238/153. He subsequently had a vomiting episode requiring emergent intubation and mechanical ventilation. Head CT revealing acute hemorrhaic stroke in the right thalamus with extension of the lateral third ventricles with a shift onto the right side of 6 mm. chest x-ray revealing left lower lobe consolidation and patchy infiltrates in the central right lung. Clinical course complicated by acute encephalopathy, acute hypoxemic and hypercarbic respiratory failure and acute kidney injury. Patient remains a high risk for further complications, continue decline and . Condition guarded at this time. . Code Status: Full Code Plan * CODE STATUS: Full code. * HEALTHCARE DECISION-MAKING: Patient lacking capacity for medical decision- making secondary to clinical condition , encephalopathy, intubated on mechanical ventilation. Unclear at this time if patient will regain capacity. No advance directives completed as per patient's family. Patient is . As per [place] law, healthcare proxy decision making falls to the majority of patient's adult children for which he has 3 (4th child is 4 years old). Daughters Kary and son Hadley Maddox. All wishing to participate. * GOALS OF CARE: Family electing for aggressive medical management to include FULL code, as well as tracheostomy and PEG tube placement. * SYMPTOMS: = Dyspnea, secondary to acute respiratory failure. Patient remains intubated on mechanical ventilation. Not tolerating weaning trials secondary to agitation, vent asynchrony when sedation is decreased. Plan for tracheostomy tomorrow 09/08 17. = Pain: Secondary to intubation, medical interventions, bedbound. Currently on fentanyl drip and oxycodone 10 mg every 4 hours. = Bowels: MiraLAX, lactulose and Melina-Colace [id number]. Dulcolax suppository available. = Restlessness/agitation: Patient has been placed on Seroquel 100 mg every 8 hours and Haldol as needed. * Case discussed with Dr. Rachel and [place] RN. * Palliative care contact information has been provided to patient's family. * Palliative care will continue to follow-up for further clarifications of goals of care, provide emotional support as patient's clinical course continues to evolve. . Time Spent Total Floor Time (mins): 24 (Total time to include review medical records, physical exam, goals of care conversation with patient's daughters, case discussion with nephrology and bedside RN.) >50% Counseling/Coord of Care: Yes Attestation To help prompt me to consider important information that might be impacting today's encounter and assessment, information from prior notes written by myself or my colleagues may have been "brought forward" into today's note. My signature on this note, however, is an attestation that I personally performed the exam, history, and/or decision-making noted today, and, unless otherwise indicated, the interactions with patient, family, and staff as well as the review of records all occurred today. I also attest that the listed assessment and stated plan reflect my best clinical judgment today based on the combination of historical information, prior notes, and today's exam/ interactions. When time spent is documented, it refers only to time spent today by the signer, or if indicated, combined time spent today by collaborating physician/nurse practitioner. Soniya Elliott Sep 07, 2017 12:49
--- NOTE | 2017-09-07 12:59 | HHI.NSPN ---
(James Ontiveros) History Chief Complaint: Unable to obtain due to patient's clinical condition. (James Ontiveros) Interval History 08/29: History of hypertension who was brought to the emergency room per [facility] after being found with altered mental status, right hemiparesis. He had reportedly been seen to be normal approximately 3-1/2 hours prior. Systolic blood pressure greater than 260/130 on initial evaluation. No seizure activity reported. Positive emesis. Per emergency room personnel the patient was responding verbally, difficulty raising his right arm upon initial arrival. He was intubated in the emergency room and a stat CT scan accomplished which has revealed a primarily left thalamic intracranial hemorrhage. 09/01/17: Patient remains intubated and sedated. 09/02: intubated and well sedated, not tolerating sedation vacation due to increase in blood pressure. 09/03/17: Remains on propofol and fentanyl IV for ventilator control. Positive agitation with decreased sedation 09/04/17: Pt sedated on Diprivan and Fentanyl drip. Not following commands. Pt on Cardene drip. Intubated. 09/05/17: Pt sedated on Diprivan and Fentanyl drip. Not following commands. Pt on Cardene drip. Intubated. Pupils 2mm bilaterally, NR bilaterally. 09/06/17: Remains intubated. PEG tube placed today. On Decadron and Benadryl for angioedema. Lisinopril discontinued 09/07. The patient is obtunded but is sedated with propofol. Nursing reports that the patient does have bleeding secondary to his PEG tube being placed yesterday. The family reports that the plan is to do a tracheostomy tomorrow. Nursing does say the patient does withdraw to stimulation, has a cough and gag reflex but his pupils are nonreactive. (James Ontiveros) System Review Comments Unable to obtain due to patient's clinical condition. (James Ontiveros) Exam Results 09/05/17 09/05/17 09/06/17 09/06/17 09/07/1728/17 06:00 18:00 06:00 18:00 06:00 18:00 Intake Total 950 ml 1380 ml 573 ml 700 ml 945 ml 270 ml Output Total 1550 ml 1900 ml 1775 ml 2000 ml 1900 ml Balance -600 ml -520 ml -1202 ml -1300 ml -955 ml 270 ml Intake IV Total 600 ml 600 ml 705 ml 270 ml Tube Feeding 590 ml 720 ml 233 ml 0 ml 0 ml Other 360 ml 60 ml 340 ml 100 ml 240 ml Output Urine Total 1550 ml 1900 ml 1775 ml 2000 ml 1900 ml # Bowel Movements 3 0 0 0 Vital Signs Date Time Temp Pulse Resp B/P (MAP) Pulse Ox O2 Delivery O2 Flow Rate FiO2 09/07/17 11:25 94 30 09/07/17 08:16 97 30 09/07/17 06:00 77 09/07/17 04:03 97 30 09/07/17 04:00 100.9 77 20 159/84 (109) 96 09/07/17 04:00 77 09/07/17 04:00 40 09/07/17 02:00 76 09/07/17 00:07 95 30 09/07/17 00:00 40 09/07/17 00:00 100.4 79 20 128/65 (86) 94 09/07/17 00:00 79 09/06/17 22:00 78 09/06/17 21:11 96 30 09/06/17 20:00 76 09/06/17 20:00 40 09/06/17 20:00 100.8 76 20 159/80 (106) 97 09/06/17 19:00 96 Mechanical Ventilator 30 09/06/17 18:00 74 09/06/17 17:05 95 30 09/06/17 16:00 100.0 74 20 134/65 (88) 96 09/06/17 16:00 74 09/06/17 16:00 40 09/06/17 14:00 75 09/06/17 12:00 40 09/06/17 12:00 74 09/06/17 12:00 100.2 74 20 134/65 (88) 95 09/06/17 11:45 100 30 09/06/17 10:00 71 09/06/17 08:47 99 40 09/06/17 08:00 100.2 72 20 160/87 (111) 99 09/06/17 08:00 40 09/06/17 08:00 72 09/06/17 07:00 99 Mechanical Ventilator 40 09/06/17 06:00 73 09/06/17 04:06 99 40 09/06/17 04:00 78 09/06/17 04:00 40 09/06/17 04:00 100.2 78 20 145/75 (98) 99 09/06/17 02:00 80 09/06/17 00:00 100.4 88 20 145/74 (97) 97 09/06/17 00:00 88 09/06/17 00:00 40 09/05/17 23:15 97 40 09/05/17 22:00 90 146/72 09/05/17 22:00 90 09/05/17 20:51 98 40 09/05/17 20:00 99.4 86 20 146/71 (96) 98 09/05/17 20:00 40 09/05/17 20:00 86 09/05/17 19:00 95 Mechanical Ventilator 40 09/05/17 18:53 87 120/58 09/05/17 18:00 87 09/05/17 16:17 99 40 09/05/17 16:00 82 09/05/17 16:00 99.5 80 20 158/88 (111) 99 09/05/17 16:00 40 09/05/17 14:00 78 09/05/17 12:00 85 09/05/17 12:00 99.5 85 20 150/82 (104) 100 09/05/17 12:00 40 09/05/17 11:48 100 40 09/05/17 10:00 80 09/05/17 08:34 100 40 09/05/17 08:00 100.4 86 24 153/83 (106) 97 09/05/17 08:00 40 09/05/17 08:00 97 Mechanical Ventilator 40 09/05/17 08:00 86 09/05/17 06:00 85 09/05/17 04:00 40 09/05/17 04:00 76 09/05/17 04:00 100.0 76 20 138/77 (97) 98 09/05/17 03:39 98 40 09/05/17 02:00 76 09/05/17 00:00 79 09/05/17 00:00 40 09/05/17 00:00 99.5 79 20 134/65 (88) 97 09/04/17 23:13 97 40 09/04/17 22:00 78 09/04/17 21:07 82 133/73 09/04/17 20:00 99.9 80 20 136/70 (92) 100 09/04/17 20:00 80 09/04/17 20:00 40 09/04/17 19:47 99 40 09/04/17 19:00 100 Mechanical Ventilator 40 09/04/17 18:00 84 09/04/17 17:40 98 40 09/04/17 17:09 86 134/67 09/04/17 16:00 86 09/04/17 16:00 40 09/04/17 16:00 99.9 86 21 145/67 (93) 98 09/04/17 14:00 84 (James Ontiveros) Physical Examination GENERAL: Obtunded but sedated with propofol 50 mcg/kg/min. He also has fentanyl 200 mcg/hr infusing for pain control. He is not in any apparent distress. HEENT: Normocephalic, atraumatic. Pupils 2 mm nonreactive, gaze dysconjugate. Orally intubated. Mild angioedema. MUSCULOSKELETAL: Some movement of lower extremities to noxious stimulation. No evident deformity or clubbing. NEUROLOGICAL: Obtunded but on propofol for sedation, GCS 6T (E1 V1T M4). Nonverbal, orally intubated. Does not follow commands. No cough reflex. No eye opening to noxious stimulation. Pupils 2 mm nonreactive bilaterally, gaze dysconjugate. Positive corneal reflex. Withdrawal response LLE>RLE to noxious stimulation, no movement of upper extremities noted. (James Ontiveros) Lab, Micro, Other Results Recent Impressions Chest X-Ray 09/07/17 0600 Signed Impressions: Service Date/Time: Thursday, September 07, 2017 05:17 - CONCLUSION: The lungs appear grossly clear. The aeration in the lungs has improved from the prior exam. Ignacio Candelaria MD Laboratory Tests Test 09/05/17 08:20 09/06/17 08:02 09/07/17 05:15 09/07/17 09:24 White Blood Count 8.5 TH/MM3 8.8 TH/MM3 10.6 TH/MM3 Red Blood Count 4.01 MIL/MM3 3.86 MIL/MM3 4.25 MIL/MM3 Hemoglobin 10.8 GM/DL 10.5 GM/DL 11.5 GM/DL Hematocrit 33.1 % 31.4 % 34.6 % Mean Corpuscular Volume 82.6 FL 81.2 FL 81.4 FL Mean Corpuscular Hemoglobin 27.1 PG 27.1 PG 27.2 PG Mean Corpuscular Hemoglobin Concent 32.8 % 33.3 % 33.4 % Red Cell Distribution Width 15.9 % 15.3 % 15.1 % Platelet Count 259 TH/MM3 288 TH/MM3 336 TH/MM3 Mean Platelet Volume 9.4 FL 9.4 FL 9.0 FL Neutrophils (%) (Auto) 85.8 % 79.1 % Lymphocytes (%) (Auto) 6.0 % 8.9 % Monocytes (%) (Auto) 7.9 % 10.2 % Eosinophils (%) (Auto) 0.0 % 1.0 % Basophils (%) (Auto) 0.3 % 0.8 % Neutrophils # (Auto) 7.3 TH/MM3 8.4 TH/MM3 Lymphocytes # (Auto) 0.5 TH/MM3 1.0 TH/MM3 Monocytes # (Auto) 0.7 TH/MM3 1.1 TH/MM3 Eosinophils # (Auto) 0.0 TH/MM3 0.1 TH/MM3 Basophils # (Auto) 0.0 TH/MM3 0.1 TH/MM3 CBC Comment DIFF FINAL DIFF FINAL Differential Comment Blood Urea Nitrogen 61 MG/DL 63 MG/DL 64 MG/DL Creatinine 4.92 MG/DL 4.62 MG/DL 4.38 MG/DL Random Glucose 367 MG/DL 211 MG/DL 167 MG/DL Total Protein 7.3 GM/DL 6.8 GM/DL Albumin 2.2 GM/DL 2.1 GM/DL Calcium Level 8.7 MG/DL 8.7 MG/DL 8.8 MG/DL Magnesium Level 3.1 MG/DL 2.5 MG/DL Alkaline Phosphatase 66 U/L 51 U/L Aspartate Amino Transf (AST/SGOT) 64 U/L 140 U/L Alanine Aminotransferase (ALT/SGPT) 43 U/L 121 U/L Total Bilirubin 0.3 MG/DL 0.4 MG/DL Sodium Level 141 MEQ/L 146 MEQ/L 144 MEQ/L Potassium Level 3.5 MEQ/L 3.1 MEQ/L 3.1 MEQ/L Chloride Level 106 MEQ/L 108 MEQ/L 106 MEQ/L Carbon Dioxide Level 26.1 MEQ/L 32.7 MEQ/L 29.8 MEQ/L Anion Gap 9 MEQ/L 5 MEQ/L 8 MEQ/L Estimat Glomerular Filtration Rate 16 ML/MIN 17 ML/MIN 18 ML/MIN Prothrombin Time 10.7 SEC Prothromb Time International Ratio 1.0 RATIO Activated Partial Thromboplast Time 26.8 SEC Phosphorus Level 3.5 MG/DL (James Ontiveros) Medical Decision Making Impression and Plan Impression: 1. Large thalamic intracranial hemorrhage. Patient remains obtunded but is sedated. Withdraws with lower extremities to noxious stimulation. Prognosis poor for any meaningful recovery. Plan: Discussed plan of care with family and Nursing. Primary management per [employer]. Neuro checks. Palliative Care consult. Continue full supportive care measures per family. CT brain in AM. (James Ontiveros) Attending Statement The exam, history, and the medical decision-making described in the above note were completed with the assistance of the mid-level provider. I reviewed and agree with the findings presented. I attest that I had a [id number] encounter with the patient on the same day, and personally performed and documented my assessment and findings in the medical record. No overall change in the patient's clinical examination on 09/07/2017. Remains intubated. Wean sedation as tolerated Prognosis remains poor (Orville Tinajero MD) James Ontiveros Sep 07, 2017 12:59 Orville Tinajero MD Sep 09, 2017 17:52
--- NOTE | 2017-09-07 14:25 | RADRPT ---
EXAM DATE/TIME: 09/07/2017 12:37 [facility] COMPARISON: No previous studies available for comparison. INDICATIONS : Increased lab values. MEDICAL HISTORY : Hypertension. Gastroesophageal reflux disease. Migraines. Cerebrovascular accident. SURGICAL HISTORY : None. ENCOUNTER: Subsequent ACUITY: 1 day PAIN SCORE: Nonresponsive. LOCATION: Abdomen. MEASUREMENTS: LIVER: 15.9 cm length COMMON DUCT: 5 mm RIGHT KIDNEY: 12.0 x 6.6 x 6.4 cm SPLEEN: 9.8 cm length FINDINGS: LIVER: Normal echotexture without focal lesion or ductal dilatation. Main portal vein is patent. COMMON DUCT: No intraluminal mass or stone visualized. GALLBLADDER: Contains no stones, demonstrates no wall thickening or pericholecystic fluid. PANCREAS: Obscured due to overlying bowel gas. RIGHT KIDNEY: Inferior pole obscured. Visualized portions demonstrate increased cortical echogenicity without evide nce of hydronephrosis, mass or stone. SPLEEN: No focal lesion. Incidental note of small bilateral pleural effusions. CONCLUSION: 1. Unremarkable sonographic appearance of the liver. No evidence for hepatic volume loss or intrahepa tic ductal dilatation. 2. No sonographic evidence for cholelithiasis or acute cholecystitis. 3. Mild increased right renal echogenicity may reflect medical renal disease. 4. Small bilateral pleural effusions. 5. Pancreas and inferior pole of the right kidney are obscured by bowel gas and therefore not evaluat ed. Darrell Robles MD on September 07, 2017 at 14:18 Board Certified Radiologist. This report was verified electronically.
--- NOTE | 2017-09-07 14:40 | HHI.CCPN ---
Subjective Remarks/Hospital Course Hospital Course: 46 y/o man with longstanding hypertension and previous CVA presents obtunded with new neurological symptoms noticed prior to arrival. Timeline unclear. Required intubation in ED for airway protection. CT head shows left thalamic bleed and shift away from bleed. Toxicology screen pending. Subjective: 08/30: encephalopathy persists. bp under better control, still on cardene. on sedation vacation, moves left side spontaneously but nothing on right. 08/31: overnight, severely agitated, requiring high dose sedation. also, lambert obstructed, new lambert placed with improvement in obstruction. this morning, RAFAELA with Cr up to 3. urine Na < 10, suggestive of pre-renal etiology. continued ivf. high peak pressures on vent. suction lavage with thick tenacious secretions. bronch with left lobe mucous plugging. bronchospasm a significant problem requiring iv magnesium and duonebs. finally attempted small paralytic dose with improvement in abdominal breathing and fighting ventilator. 09/01: No improvement in neuro exam, intermittent jerking movements noted by the RN no seizure. Creatinine for urine output adequate. I have consulted nephrology. We'll check CT of the head repeat EEG tomorrow a.m. 09/02: Clinically remains same. Did not tolerate sedation vacation, became hypertensive. CT head today showed slight improvement in L thalamic and IVH. Dr. Tinajero is the neurosurgeon, Dr. Jhaveri covering 09/03: Still unable to tolerate sedation vacation. Becomes very asynchronous with the vent with desaturations. Discussed with daughters about possible tracheostomy, they want to discuss with their mom, patient's ex -. Creatinine has worsened to 5.1 but no acute indication for dialysis. Will check ABG urine output 1.8 L in 24 hours 09/04: Remains intubated sedated synchronous with the vent. Noted to have tongue swelling/angioedema. Lisinopril discontinued. Placed on Decadron and IV Benadryl. Plan for tracheostomy and PEG tube placement next week 09/05: Patient remains intubated sedated critically ill. No change or improvement in neuro status. Lisinopril discontinued yesterday Decadron and Benadryl started tongue swelling is improved. Hyperglycemia secondary to Decadron, random blood sugar 360. Will wean to DC. Plan for trach and PEG this week, if family agreeable 09/06: Angioedema improving with Decadron and Benadryl. Still gets very agitated with sedation lightening. Needs improved blood pressure control increase clonidine to 0.3 every 8 hours. Plan for PEG today and Trach 09/08/1709/07: Stable overnight, except bleeding/oozing from the PEG site. We'll give single dose of nasal DDAVP. Creatinine slightly improved to 4.4, urine output 3.9 L in 24 hours. Plan for tracheostomy 09/08/17 Objective Vital Signs Date Time Temp Pulse Resp B/P (MAP) Pulse Ox O2 Delivery O2 Flow Rate FiO2 09/07/17 11:25 94 30 09/07/17 06:00 77 09/07/17 04:00 100.9 20 159/84 (109) 09/06/17 19:00 Mechanical Ventilator Intake and Output 09/07/17 09/07/17 09/08/17 08:00 16:00 00:00 Intake Total 831 ml Output Total 1900 ml Balance -1069 ml Result Diagram: 09/07/17 0924 09/07/17 0515 Objective Remarks Gen: Intubated sedated Head: Atraumatic. Conjunctivae injected. ENT: Tongue swollen/angioedema with laceration from bite. improving swelling Neck: Supple, orally intubated. Lungs: Bilateral scattered wheezing Heart: Tachycardia, RR. Intermittently hypertensive Abdomen: Mildly distended, No guarding. Oozing from PEG site Extremities: Warm, well perfused. Neuro: RASS -4 on propofol and fentanyl. moves LUE/LLE spontaneously, no movement on right. does not follow commands. w/d to pain left UE and bilateral LE. pupils equal, round A/P Problem List: (1) Intracranial hemorrhage ICD Code: I62.9 - Nontraumatic intracranial hemorrhage, unspecified Status: Acute (2) Hemorrhagic stroke ICD Code: I61.9 - Nontraumatic intracerebral hemorrhage, unspecified Status: Acute (3) Hypertensive emergency ICD Code: I10 - Hypertensive emergency Status: Acute Assessment and Plan Assessment: 46yM with left thalamic hypertensive hemorrhagic IPH, ICH score 2. remains off pathway, poor neurologic exam. continue tight bp control. frequent neuro checks. cannot SBT or extubate while encephalopathic and hypertensive. Do not tolerate sedation vacation. Plan for trach and PEG this week Active Problems: Acute encephalopathy Left Thalamic Hemorrhage, with IV extension Intracerebral Hemorrhage, ICH score 2 Acute hypoxic and Hypercarbic Respiratory failure Hypertensive Emergency Ventilatory Dyssynchrony Agitated Delirium Acute kidney failure Angioedema most likely EMIL inhibitor induced Hyperglycemia Plan: - Unable to do sedation vacation due to severe ventilator synchrony and desaturation - Sedation vacation after trach, tentatively planned for 09/08/17. s/p PEG 09/06 - DDAVP nasal spray due to oozing from PEG site - Seroquel 100mg po q8hr for agitation. Clonidine 0.3 mg PO q8h - Haldol 5mg iv q4h prn for breakthrough agitation - oxycodone 10mg po q4h. Fentanyl, propofol. Very hypertensive on attempted sedation vacation - Scheduled Ativan 2mg po q8 09/05/17, to help reduce IV sedation, will reduce to 1mg q12 - Prn boluses of neuromuscular blockade if we cannot get control of vent synchrony. - CT head 09/02 improving left thalamic and intraventricular hemorrhage, EEG severe encephalopathy, repeat CT 09/08 - D/W Dr. Tinajero 09/01, frequent neuro checks - goal SBP < 150. Cardene/labetalol/hydralazine prn - Renal ultrasound, nephrology consult. Dr. Rachel has seen the patient no indication for emergency dialysis. Creat improved from 4.6 to 4.4, UO 3.9L in 24 hours - TF at goal, bowel regimen-change to Glucerna - hyperglycemia secondary to Decadron. Started Levemir 10 units every 12, continue sliding scale - Lisinopril discontinued. dc IV Decadron and dc Benadryl - SCDs. hold pharmacologic DVT prophylaxis given ICH. Lovenox cleared by Dr. Tinajero but will not start due to bleeding from PEG site and anticipated trach - Protonix. Overall impression: Critically ill with hypertensive emergency and thalamic bleed. Not tolerating weaning trials, trach tomorrow level 3 Ladan Pierre MD Sep 07, 2017 14:40
[2017-09-07] MEDS ORDERED: DESMOPRESSIN ACETATE 0.1 MG/ML EACH NARE ONE (15:00)
[2017-09-07] MEDS ORDERED: GELATIN 12 MM/7 MM FOAM TOPICAL PRN (19:45)
[2017-09-07] MEDS: ATORVASTATIN 40 MG TAB PO SCH (19:55)
[2017-09-07] MEDS: LORazepam 1 MG TAB PO SCH (19:57)
[2017-09-07] MEDS: LABETALOL HCL 100 MG/20 ML VIAL IV PUSH PRN (20:21)
[2017-09-07 23:02] LABS: HEMATOCRIT 31.4 % (39.0-51.0); HEMOGLOBIN 10.2 GM/DL (13.0-17.0)
[2017-09-08] VITALS (20 sets, daily range): BP systolic 148–188; BP diastolic 73–95; PULSE 78–96; RESP 20–23; TEMP 99.5–101.1; O2SAT 93–100
[2017-09-08] MEDS: oxyCODONE HCL ORAL CONC 5 MG/0.25 ML SYRINGE PO SCH ×6 (00:42→19:57)
[2017-09-08] MEDS: fentaNYL DRIP 250 ML IV PRN ×2 (00:42→12:00)
[2017-09-08] MEDS: PROPRANOLOL HCL 10 MG TAB PO SCH ×4 (00:42→17:53)
[2017-09-08] MEDS: LABETALOL HCL 100 MG/20 ML VIAL IV PUSH PRN ×2 (02:11→04:56)
[2017-09-08] MEDS: PROPOFOL 1000 MG/100 ML INJ 100 ML IV PRN ×9 (03:11→22:49)
[2017-09-08] MEDS: hydrALAZINE HCL 20 MG/ML VIAL IV PUSH PRN ×2 (03:11→16:55)
[2017-09-08] MEDS: CHLORHEXIDINE GLUCONATE 2 % 1 PACK (2 CLOTHS) TOP SCH (03:50)
[2017-09-08] MEDS: RESP: ALBUTEROL 2.5 MG/IPRATROPIUM 0.5 MG NEB (SCH) NEB ×4 (03:52→19:48)
[2017-09-08] MEDS: QUEtiapine FUMARATE 100 MG TAB PO SCH ×3 (05:00→21:22)
[2017-09-08] MEDS: ACETAMINOPHEN 325 MG TAB PO PRN ×3 (05:00→22:09)
[2017-09-08] MEDS: cloNIDine HCL 0.3 MG TAB PO SCH ×3 (05:00→21:22)
[2017-09-08] MEDS: PIPERACIL-TAZO 2.25 GM PREMIX 50 ML IV SCH ×3 (05:00→21:22)
[2017-09-08 05:57] LABS: AUTOMATED NEUTROPHIL # 8.9 TH/MM3 (1.8-7.7); BASOPHIL # 0.1 TH/MM3 (0-0.2); BASOPHIL % 0.8 % (0.0-2.0); EOSINOPHIL # 0.2 TH/MM3 (0-0.4); EOSINOPHIL % 2.1 % (0.0-4.0); HEMATOCRIT 31.3 % (39.0-51.0); HEMOGLOBIN 10.4 GM/DL (13.0-17.0); LYMPH % 12.2 % (9.0-44.0); LYMPHOCYTE # 1.5 TH/MM3 (1.0-4.8); MEAN CELL VOLUME 81.2 FL (80.0-100.0); MEAN CORPUSCULAR HEMOGLOBIN 26.9 PG (27.0-34.0); MEAN CORPUSCULAR HGB CONC 33.2 % (32.0-36.0); MEAN PLATELET VOLUME 9.3 FL (7.0-11.0); MONO % 10.4 % (0.0-8.0); MONOCYTE # 1.2 TH/MM3 (0-0.9); NEUT % 74.5 % (16.0-70.0); PLATELET COUNT 345 TH/MM3 (150-450); RED BLOOD COUNT 3.86 MIL/MM3 (4.50-5.90); RED CELL DISTRIBUTION WIDTH 14.9 % (11.6-17.2); WHITE BLOOD COUNT 11.9 TH/MM3 (4.0-11.0)
[2017-09-08] MEDS: INSULIN NovoLIN REGULAR SUPPLEMENTAL SCALE SQ SCH ×4 (06:00→17:53)
[2017-09-08 06:35] LABS: ALBUMIN 2.1 GM/DL (3.4-5.0); ALKALINE PHOSPHATASE 55 U/L (45-117); ALT (GPT) 153 U/L (12-78); AST (GOT) 180 U/L (15-37); BICARBONATE 28.1 MEQ/L (21.0-32.0); CALCIUM 8.6 MG/DL (8.5-10.1); CHLORIDE 106 MEQ/L (98-107); CREATININE 3.98 MG/DL (0.60-1.30); GLOMERULAR FILTRATION RATE 20 ML/MIN (>89); GLUCOSE,RANDOM 182 MG/DL (74-106); SODIUM (NA) 144 MEQ/L (136-145); TOTAL BILIRUBIN ADULT 0.4 MG/DL (0.2-1.0); TOTAL PROTEIN 6.9 GM/DL (6.4-8.2)
[2017-09-08 06:36] LABS: BLOOD UREA NITROGEN 66 MG/DL (7-18)
[2017-09-08] MEDS: CHLORHEXIDINE 0.12% (ORAL KIT) 15 ML CUP MT SCH ×2 (08:00→19:57)
--- NOTE | 2017-09-08 08:41 | HHI.GIFU ---
Subjective Remarks ventilator remains with oral ETT, plan for trach today at 1300 per nurse PEG tube intact / minimal red bloody drainage/dressing removed/ observed / changed fever 101.1 BM X 1 today (Nandini Arzola) Objective Vitals I&O Vital Signs Date Time Temp Pulse Resp B/P (MAP) Pulse Ox O2 Delivery O2 Flow Rate FiO2 09/08/17 07:43 98 30 09/08/17 06:00 80 09/08/17 04:00 92 09/08/17 04:00 40 09/08/17 04:00 101.1 92 20 188/95 (126) 97 09/08/17 03:47 95 30 09/08/17 02:00 81 09/08/17 00:00 100.0 78 20 161/88 (112) 96 09/08/17 00:00 40 09/08/17 00:00 78 09/07/17 22:00 84 09/07/17 21:20 95 30 09/07/17 20:00 100.8 82 20 160/86 (110) 94 09/07/17 20:00 82 09/07/17 20:00 40 09/07/17 19:00 95 Mechanical Ventilator 30 09/07/17 18:00 82 09/07/17 16:00 77 09/07/17 16:00 40 09/07/17 16:00 100.2 84 20 139/77 (97) 97 09/07/17 15:47 95 30 09/07/17 14:00 84 09/07/17 12:00 100.2 81 20 144/76 (98) 98 09/07/17 12:00 81 09/07/17 12:00 40 09/07/17 11:25 94 30 09/07/17 10:00 80 I/O 09/07/17 09/07/17 09/07/17 09/08/17 09/08/17 09/08/17 07:00 15:00 23:00 07:00 15:00 23:00 Intake Total 831 ml 299 ml 419 ml 1131 ml Output Total 1900 ml 2100 ml 2125 ml Balance -1069 ml 299 ml -1681 ml -994 ml Intake IV Total 591 ml 299 ml 299 ml 891 ml Tube Feeding 0 ml 0 ml Other 240 ml 120 ml 240 ml Output Urine Total 1900 ml 2100 ml 2125 ml # Bowel Movements 0 0 1 Laboratory Laboratory Tests Test 09/07/17 09:24 09/07/17 22:40 09/08/17 05:03 White Blood Count 10.6 11.9 Red Blood Count 4.25 3.86 Hemoglobin 11.5 10.2 10.4 Hematocrit 34.6 31.4 31.3 Mean Corpuscular Volume 81.4 81.2 Mean Corpuscular Hemoglobin 27.2 26.9 Mean Corpuscular Hemoglobin Concent 33.4 33.2 Red Cell Distribution Width 15.1 14.9 Platelet Count 336 345 Mean Platelet Volume 9.0 9.3 Neutrophils (%) (Auto) 79.1 74.5 Lymphocytes (%) (Auto) 8.9 12.2 Monocytes (%) (Auto) 10.2 10.4 Eosinophils (%) (Auto) 1.0 2.1 Basophils (%) (Auto) 0.8 0.8 Neutrophils # (Auto) 8.4 8.9 Lymphocytes # (Auto) 1.0 1.5 Monocytes # (Auto) 1.1 1.2 Eosinophils # (Auto) 0.1 0.2 Basophils # (Auto) 0.1 0.1 CBC Comment DIFF FINAL DIFF FINAL Differential Comment Prothrombin Time 11.0 Prothromb Time International Ratio 1.0 Blood Urea Nitrogen 66 Creatinine 3.98 Random Glucose 182 Total Protein 6.9 Albumin 2.1 Calcium Level 8.6 Alkaline Phosphatase 55 Aspartate Amino Transf (AST/SGOT) 180 Alanine Aminotransferase (ALT/SGPT) 153 Total Bilirubin 0.4 Sodium Level 144 Potassium Level 2.7 Chloride Level 106 Carbon Dioxide Level 28.1 Anion Gap 10 Estimat Glomerular Filtration Rate 20 Date/Time Source Procedure Growth Status 08/31/17 06:05 Blood Peripheral Aerobic Blood Culture - Final NO GROWTH IN 5 DAYS Complete 08/31/17 06:05 Blood Peripheral Anaerobic Blood Culture - Final NO GROWTH IN 5 DAYS Complete 08/30/17 09:10 Sputum Endotracheal Gram Stain - Final Complete 08/30/17 09:10 Sputum Endotracheal Sputum Culture - Final MODERATE GROWTH NORMAL RESPIRATORY ESTELITA Complete 08/31/17 05:30 Urine Catheterized Urine Urine Culture - Final NO GROWTH IN 48 HOURS. Complete Imaging Last Impressions Chest X-Ray 09/07/17 0600 Signed Impressions: Service Date/Time: Thursday, September 07, 2017 05:17 - CONCLUSION: The lungs appear grossly clear. The aeration in the lungs has improved from the prior exam. Ignacio Candelaria MD Liver Ultrasound 09/07/17 0000 Signed Impressions: Service Date/Time: Thursday, September 07, 2017 12:37 - CONCLUSION: 1. Unremarkable sonographic appearance of the liver. No evidence for hepatic volume loss or intrahepatic ductal dilatation. 2. No sonographic evidence for cholelithiasis or acute cholecystitis. 3. Mild increased right renal echogenicity may reflect medical renal disease. 4. Small bilateral pleural effusions. 5. Pancreas and inferior pole of the right kidney are obscured by bowel gas and therefore not evaluated. Darrell Robles MD Head CT 09/02/17 0600 Signed Impressions: Service Date/Time: August 03:11 - CONCLUSION: 1. Slowly decreasing left thalamic and intraventricular hemorrhage. Decreased rightward midline shift, currently approximately 2.5 mm. 2. No new hemorrhage or other acute intracranial abnormality. 3. Paranasal sinusitis has developed. Ignacio Lares MD Renal Ultrasound 08/31/17 0000 Signed Impressions: Service Date/Time: Thursday, August 31, 2017 17:42 - CONCLUSION: 1. No evidence of hydronephrosis on either side. 2. Solitary linear echogenic focus in the upper pole parenchyma of the right kidney has similar features to prior examination in January 2017 and possibly represents a calcification. David Snell MD Neck CTA 08/28/17 2347 Signed Impressions: Service Date/Time: Tuesday, August 29, 2017 00:13 - CONCLUSION: Negative carotid CTA. David Snell MD Head CTA 08/28/17 2347 Signed Impressions: Service Date/Time: Tuesday, August 29, 2017 00:13 - CONCLUSION: 1. No evidence of vessel truncation or aneurysm. 2. No abnormal vessels in the region of the large left thalamic hemorrhage. David Snell MD Physical Exam HEENT: normocephalic; atraumatic; no jaundice. ET tube per oral cavity, moderate tongue edema NECK: Neck is supple, obese, no lymphadenopathy. CHEST: Chest decreased bibasilar to auscultation and percussion. Mild rhonchi noted anteriorly CARDIAC: Regular rate and rhythm, S1, S2, ABDOMEN: Round, taut, tympanic, bowel sounds soft 4 quads, PEG tube intact with bulky dressing changed this am. Bloody drainage, but no active oozing noted. EXTREMITIES: 2+ lower extremity edema SKIN: no rash; no jaundice. [employer] SPECIALIST: Sedated (Nandini Arzola) Assessment and Plan Plan ASSESSMENT: - Left Thalamic and Intraventricular Hemorrhage. EEG shows encephalopathy and 2.5 rt. shift. Patient is sedated on vent. Long-term nutritional needs; EGD with PEG tube inserted on 09-06. Bleeding around PEG tube site minimal, no obvious oozing, dressing changed and gelfoam reapplied. Tube secured. Elevated LFTs, etiology unclear, suspect hepatic congestion vs medications. Liver ultrasound unremarkable. Patient does have history of acute on chronic renal failure, congestive heart failure with some lower extremity edema, abdomen tympanic. Fever/umknown origin, being evaluated per Intensivists PLAN: Monitor PEG tube site for increase in bleeding. Call for any increase in bleeding, Dressing changed this am. Gelfoam reapplied. NPO except medications Hold subcutaneous heparin Gelfoam as ordered per Dr. Beverly Pressure dressing and reinforce as needed - Further recommendations to follow based on results of above. (See follow-up note 09-07 Dr. Beverly) Monitor LFTs as warented. AST 180/ ALT [address] head this am for evaluation or changes. Trach noted for today at 1300 Patient seen and examined by Dr. Beverly and myself and this note is written on his behalf. (Nadnini Arzola) Physician Comments we will monitor , if stable overnight start tf in am (Teresa Beverly MD) Nandini Arzola Sep 08, 2017 08:41 Teresa Beverly MD Sep 08, 2017 20:12
[2017-09-08] MEDS ORDERED: POTASSIUM CHLORIDE 10 MEQ CONTROLLED RELEASE TAB PO ONE (09:00)
[2017-09-08] MEDS: FLUTICASONE PROPIONATE 50 MCG/ACT 16 GM NASAL SPRAY EACH NARE SCH (09:00)
[2017-09-08] MEDS: POLYETHYLENE GLYCOL 17 GM PKG PO SCH ×2 (09:00→19:57)
[2017-09-08] MEDS: INSULIN DETEMIR 100 UNITS/ML VIAL SQ SCH ×2 (10:00→21:22)
--- NOTE | 2017-09-08 10:28 | RADRPT ---
EXAM DATE/TIME: 09/08/2017 09:28 [facility] COMPARISON: CT BRAIN W/O CONTRAST, September 02, 2017, 3:11. INDICATIONS : Stroke. RADIATION DOSE: 59.30 CTDIvol (mGy) MEDICAL HISTORY : Stroke. Cardiovascular disease Hypertension. SURGICAL HISTORY : None. ENCOUNTER: Subsequent ACUITY: 2 weeks PAIN SCALE: Non-responsive LOCATION: cranial TECHNIQUE: Multiple contiguous axial images were obtained of the head. Using automated exposure control and adj ustment of the mA and/or kV according to patient size, radiation dose was kept as low as reasonably a chievable to obtain optimal diagnostic quality images. DICOM format image data is available electro nically for review and comparison. FINDINGS: Again seen is hemorrhage involving the lateral ventricles bilaterally and to lesser degree third vent ricle as well as the left thalamus. The blood continues to decrease in density consistent with matura tion. No new hemorrhage observed. The mass effect is stable with midline shift measuring 2 mm. CSF is still seen filling the suprasellar cistern. Pansinus disease is noted. Mastoid air cells are clear. CONCLUSION: 1. Continued maturation of the left thalamic and intraventricular hemorrhage. 2. Stable midline shift measuring 2 mm. 3. Pansinus disease. David Castaneda Jr., MD on September 08, 2017 at 10:19 Board Certified Radiologist. This report was verified electronically.
[2017-09-08] MEDS: LORazepam 1 MG TAB PO SCH ×2 (10:37→19:56)
[2017-09-08] MEDS: HYDROCHLOROTHIAZIDE 25 MG TAB PO SCH (10:37)
[2017-09-08] MEDS: CALCIUM ACETATE 667 MG CAP PO SCH (10:38)
[2017-09-08] MEDS: PANTOPRAZOLE SODIUM 40 MG VIAL IV PUSH SCH (10:38)
[2017-09-08] MEDS: DOCUSATE SODIUM 50 MG/SENNA 8.6 MG TAB PO SCH ×2 (10:38→19:56)
[2017-09-08] MEDS: POTASSIUM CHLOR 20 MEQ PREMIX 100 ML IV SCH ×2 (10:44→11:59)
--- NOTE | 2017-09-08 12:02 | HHI.NPPN ---
Subjective Renal Failure: Acute Interval History Remains unresponsive on vent. To have Trach placed today. (Ashly Lutz) Review of Systems General General Remarks unable to obtain (Ashly Lutz) Objective Data Data Vital Signs Date Time Temp Pulse Resp B/P (MAP) Pulse Ox O2 Delivery O2 Flow Rate FiO2 09/08/17 11:47 20 09/08/17 11:05 94 30 09/08/17 10:00 81 09/08/17 09:25 100 100 09/08/17 08:00 30 09/08/17 08:00 82 09/08/17 08:00 99.5 82 20 156/81 (106) 95 09/08/17 07:43 98 30 09/08/17 07:00 94 Mechanical Ventilator 30 09/08/17 06:00 80 09/08/17 04:00 92 09/08/17 04:00 40 09/08/17 04:00 101.1 92 20 188/95 (126) 97 09/08/17 03:47 95 30 09/08/17 02:00 81 09/08/17 00:00 100.0 78 20 161/88 (112) 96 09/08/17 00:00 40 09/08/17 00:00 78 09/07/17 22:00 84 09/07/17 21:20 95 30 09/07/17 20:00 100.8 82 20 160/86 (110) 94 09/07/17 20:00 82 09/07/17 20:00 40 09/07/17 19:00 95 Mechanical Ventilator 30 09/07/17 18:00 82 09/07/17 16:00 77 09/07/17 16:00 40 09/07/17 16:00 100.2 84 20 139/77 (97) 97 09/07/17 15:47 95 30 09/07/17 14:00 84 09/07/17 12:00 100.2 81 20 144/76 (98) 98 09/07/17 12:00 81 09/07/17 12:00 40 (Ashly Lutz) -: 09/08/17 0503 09/08/17 0503 Tubes & Lines: Coleman Tubes & Lines Comment PEG Drip Comment fentanyl, propofol (Ashly Lutz) Physical Exam General Appearance: Well Developed, No Acute Distress, Comfortable Appearance Remarks unresponsive, intubated (Ashly Lutz) Ears & Nose Ears & Nose Remarks resolving angioedema (Ashly Lutz) Neck Neck Exam: Neck Supple (Ashly Lutz FIRE SPRINKLER FITTER) Pulmonary Resp Exam: Clear Bilaterally, Breath Sounds Equal (Ashly Lutz) Cardiology CV Exam: Regular, Normal Sinus Rhythm (Ashly Lutz FI[employer] SPRINKLER FITTER) Gastrointestinal/Abdomen GI Exam: Soft, Non-Tender, Distended GI Remarks + PEG (Ashly Lutz FI[employer] SPRINKLER FITTER) Genitourinary Exam: Clear Urine (Ashly Lutz) Musculoskeletal MS Exam: Joints Intact, Normal Tone, Unable to Ambulate (Ashly Lutz FI[employer] SPRINKLER FITTER) Integumentary Skin Exam: Warm, Dry, Intact (Ashly Lutz) Extremeties Extremities Exam: Pedal Pulses Palpable, Moderate Edema (Ashly Lutz FI[employer] SPRINKLER FITTER) Neurologic Neuro Exam: Unresponsive, Sedated (Ashly Lutz) Assessment/Plan Assessment Summary: Hypertension Electrolyte Assessment: Hypokalemia Problem List: (1) Acute kidney injury ICD Codes: N17.9 - Acute kidney failure, unspecified Status: Acute Plan: Baseline creatinine around 2. He most likely has underlying CKD. RAFAELA most likley due to renal hypoperfusion resulting from normalization of BP. Renal function is improving He has excellent urine output. Coleman is in place. Avoid IVF, nephrotoxic agents. Continue to replace potassium Repeat labs in AM HCTZ and calcium acetate were stopped. (2) Hemorrhagic stroke ICD Codes: I61.9 - Nontraumatic intracerebral hemorrhage, unspecified Status: Acute Plan: Neurosurgery has followed, serial imaging reviewed. Non surgical management at this time. S/P PEG, due for tracheostomy today. Palliative is following, meaningful recovery is questionable. (3) Hypertension ICD Codes: I10 - Hypertension Status: Chronic Plan: BP improved. Continue oral medications. Monitor and titrate to effect. Plan p (Ashly Lutz FI[employer] SPRINKLER FITTER) Plan patient was seen and examined. Renal function has improved. Replace potassium, stop HCTZ. (Hoskote,Adolph MD) Ahsly Lutz Sep 08, 2017 12:02 Adolph Rachel MD Sep 09, 2017 14:22
[2017-09-08] MEDS ORDERED: POTASSIUM CHLORIDE 20 MEQ PWD PACKET PEG ONE (12:15)
[2017-09-08] MEDS ORDERED: SODIUM CHLOR 0.9% 1000 ML INJ 1,000 ML IV ONE (13:00)
[2017-09-08] MEDS ORDERED: MIDAZOLAM HCL 2 MG/2 ML VIAL IV PUSH ONE (13:00)
[2017-09-08] MEDS ORDERED: ROCURONIUM INJ 100 MG/10 ML VIAL IV ONE (13:00)
[2017-09-08] MEDS ORDERED: MIDAZOLAM HCL 5 MG/ML VIAL (1 ML) ONE ×3 (13:12→13:49)
[2017-09-08] MEDS ORDERED: ROCURONIUM INJ 50 MG/5 ML VIAL ONE (13:12)
--- NOTE | 2017-09-08 14:14 | PD.PROCEDR ---
Procedure Note Procedure DATE: 09/08/2017 Preoperative diagnosis: Angioedema Postoperative diagnosis: Angioedema Procedure performed : Percutaneous tracheostomy INDICATION: Respiratory failure ANESTHESIA: Patient was sedated on fentanyl drip at 350 an hour, propofol drip at 50 mg/kg per minute and received 20 mg midazolam and 100 mg rocuronium CONSENT Informed consent for procedure was obtained DESCRIPTION OF THE PROCEDURE The patient was placed in supine position. Patient was on 100% FiO2. A timeout was called with patient's name date of and surgical site of said procedure and was verbally verified. The procedure was initiated at bedside. The skin was cleansed with Chloraprep. Additional barrier precautions included large sterile drape, sterile gloves, sterile gown, face mask, and hat. His neck was positioned with a towel roll behind his shoulder blades. This allowed for mild extension of the cervical neck. Attention was directed at the midline trachea with the cricothyroid membrane was palpated. Two fingerbreadths above the sternal notch, a midline vertical incision was created with a scalpel after local filtration with 0.5% lidocaine with epinephrine. Of note, the patient was adequately sedated and paralyzed with fentanyl, propofol, midazolam and rocuronium. Next, dissection was carried down to the subcutaneous tissue with hemostats. Using the Seldinger technique, the trachea was entered with a 14-gauge needle. This was completed under direct visualization of fiberoptic flexible bronchoscope by Dr. Farmer. Following this , a guidewire was inserted. The needle was removed leaving the the guidewire intact. Site was dilated with a small dilator. The tracheal rings were then serially dilated and a sheath was left intact over guidewire. A #8 Shiley, which previously had been checked for inflation was advanced over the guidewire and sheath through the previously dilated tract. Shiley tracheostomy tube was noted to pass in the trachea with low resistance. The guidewire and sheath removed from the trachea. Under direct bronchoscope visualization noted this was in the trachea with no active bleeding. An inner cannula was placed through the tracheostomy tube. The ventilator was then attached with adequate tidal volumes. No evidence of air leak. No evidence of bleeding. The tracheostomy was then secured at the anterior neck with 2. 0 silk 4. The procedure was completed after secured with Velcro. ESTIMATED BLOOD LOSS: Minimal COMPLICATIONS: No apparent complications. STAT chest x-ray pending at time of dictation Assisted by Brad Escobedo MD Sep 08, 2017 14:14
--- NOTE | 2017-09-08 14:44 | RADRPT ---
EXAM DATE/TIME: 09/08/2017 14:13 [facility] COMPARISON: CHEST SINGLE AP, September 07, 2017, 5:17. INDICATIONS : Post percutaneous tracheostomy MEDICAL HISTORY : Stroke. Cardiovascular disease. Hypertension. SURGICAL HISTORY : None. ENCOUNTER: Initial ACUITY: 1 week PAIN SCORE: Non-responsive. LOCATION: Bilateral chest FINDINGS: Trach tube in good position. Complete cardiomegaly moderate parenchymal changes left base with some air bronchograms evident. Stable in interval. There is no pneumothorax. CONCLUSION: Trach in good position, otherwise stable Kalen Reece MD FACR on September 08, 2017 at 14:41 Board Certified Radiologist. This report was verified electronically.
--- NOTE | 2017-09-08 14:53 | HHI.CCPN ---
Subjective Remarks/Hospital Course Hospital Course: 46 y/o man with longstanding hypertension and previous CVA presents obtunded with new neurological symptoms noticed prior to arrival. Timeline unclear. Required intubation in ED for airway protection. CT head shows left thalamic bleed and shift away from bleed. Toxicology screen pending. Subjective: 08/30: encephalopathy persists. bp under better control, still on cardene. on sedation vacation, moves left side spontaneously but nothing on right. 08/31: overnight, severely agitated, requiring high dose sedation. also, lambert obstructed, new lambert placed with improvement in obstruction. this morning, RAFAELA with Cr up to 3. urine Na < 10, suggestive of pre-renal etiology. continued ivf. high peak pressures on vent. suction lavage with thick tenacious secretions. bronch with left lobe mucous plugging. bronchospasm a significant problem requiring iv magnesium and duonebs. finally attempted small paralytic dose with improvement in abdominal breathing and fighting ventilator. 09/01: No improvement in neuro exam, intermittent jerking movements noted by the RN no seizure. Creatinine for urine output adequate. I have consulted nephrology. We'll check CT of the head repeat EEG tomorrow a.m. 09/02: Clinically remains same. Did not tolerate sedation vacation, became hypertensive. CT head today showed slight improvement in L thalamic and IVH. Dr. Tinajero is the neurosurgeon, Dr. Jhaveri covering 09/03: Still unable to tolerate sedation vacation. Becomes very asynchronous with the vent with desaturations. Discussed with daughters about possible tracheostomy, they want to discuss with their mom, patient's ex -. Creatinine has worsened to 5.1 but no acute indication for dialysis. Will check ABG urine output 1.8 L in 24 hours 09/04: Remains intubated sedated synchronous with the vent. Noted to have tongue swelling/angioedema. Lisinopril discontinued. Placed on Decadron and IV Benadryl. Plan for tracheostomy and PEG tube placement next week 09/05: Patient remains intubated sedated critically ill. No change or improvement in neuro status. Lisinopril discontinued yesterday Decadron and Benadryl started tongue swelling is improved. Hyperglycemia secondary to Decadron, random blood sugar 360. Will wean to DC. Plan for trach and PEG this week, if family agreeable 09/06: Angioedema improving with Decadron and Benadryl. Still gets very agitated with sedation lightening. Needs improved blood pressure control increase clonidine to 0.3 every 8 hours. Plan for PEG today and Trach 09/08/1709/07: Stable overnight, except bleeding/oozing from the PEG site. We'll give single dose of nasal DDAVP. Creatinine slightly improved to 4.4, urine output 3.9 L in 24 hours. Plan for tracheostomy 09/08/17. 09/08: Tracheostomy completed. Tongue edema unchanged. Objective Vital Signs Date Time Temp Pulse Resp B/P (MAP) Pulse Ox O2 Delivery O2 Flow Rate FiO2 09/08/17 14:50 20 09/08/17 13:50 100 100 09/08/17 12:00 100.0 81 148/76 (100) 09/08/17 07:00 Mechanical Ventilator Intake and Output 09/08/17 09/08/17 09/09/17 08:00 16:00 00:00 Intake Total 994 ml Output Total 2125 ml Balance -1131 ml Result Diagram: 09/08/17 0503 09/08/17 0503 Objective Remarks Gen: Intubated sedated Head: Atraumatic. Conjunctivae injected. ENT: Tongue swollen/angioedema with laceration from bite. improving swelling Neck: Supple, orally intubated. Lungs: Bilateral scattered wheezing Heart: Tachycardia, RR. Intermittently hypertensive Abdomen: Mildly distended, No guarding. Oozing from PEG site Extremities: Warm, well perfused. Neuro: RASS -4 on propofol and fentanyl. moves LUE/LLE spontaneously, no movement on right. does not follow commands. w/d to pain left UE and bilateral LE. pupils equal, round A/P Problem List: (1) Intracranial hemorrhage ICD Code: I62.9 - Nontraumatic intracranial hemorrhage, unspecified Status: Acute (2) Hemorrhagic stroke ICD Code: I61.9 - Nontraumatic intracerebral hemorrhage, unspecified Status: Acute (3) Hypertensive emergency ICD Code: I10 - Hypertensive emergency Status: Acute Assessment and Plan Assessment: 46yM with left thalamic hypertensive hemorrhagic IPH, ICH score 2. remains off pathway, poor neurologic exam. continue tight bp control. frequent neuro checks. cannot SBT or extubate while encephalopathic and hypertensive. Do not tolerate sedation vacation. Plan for trach and PEG this week Active Problems: Acute encephalopathy Left Thalamic Hemorrhage, with IV extension Intracerebral Hemorrhage, ICH score 2 Acute hypoxic and Hypercarbic Respiratory failure Hypertensive Emergency Ventilatory Dyssynchrony Agitated Delirium Acute kidney failure Angioedema most likely EMIL inhibitor induced Hyperglycemia Plan: - Unable to do sedation vacation due to severe ventilator synchrony and desaturation - Sedation vacation after trach, tentatively planned for 09/08/17. s/p PEG 09/06 - DDAVP nasal spray due to oozing from PEG site - Seroquel 100mg po q8hr for agitation. Clonidine 0.3 mg PO q8h - Haldol 5mg iv q4h prn for breakthrough agitation - oxycodone 10mg po q4h. Fentanyl, propofol. Very hypertensive on attempted sedation vacation - Scheduled Ativan 2mg po q8 09/05/17, to help reduce IV sedation, will reduce to 1mg q12 - Prn boluses of neuromuscular blockade if we cannot get control of vent synchrony. - CT head 09/02 improving left thalamic and intraventricular hemorrhage, EEG severe encephalopathy, repeat CT 09/08 - D/W Dr. Tinajero 09/01, frequent neuro checks - goal SBP < 150. Cardene/labetalol/hydralazine prn - Renal ultrasound, nephrology consult. Dr. Rachel has seen the patient no indication for emergency dialysis. Creat improved from 4.6 to 4.4, UO 3.9L in 24 hours - TF at goal, bowel regimen-change to Glucerna - hyperglycemia secondary to Decadron. Started Levemir 10 units every 12, continue sliding scale - Lisinopril discontinued. dc IV Decadron and dc Benadryl - SCDs. hold pharmacologic DVT prophylaxis given ICH. Lovenox cleared by Dr. Tinajero but will not start due to bleeding from PEG site and anticipated trach - Protonix. - Trach completed. Overall impression: Critically ill with hypertensive emergency and thalamic bleed. Not tolerating weaning trials, trach completed. Jack Farmer MD Sep 08, 2017 14:53
--- NOTE | 2017-09-08 16:33 | PD.PROCEDR ---
Procedure Note Procedure DX: Respiratory Failure (J96.00) OP: Bronchoscopy (19597) Procedure: Time out. Usual ICU monitoring devices in place. Patient on mechanical ventilation, rate 20/min, with orotracheal intubation. Through a side port in the vent circuit the scope was introduced and the tracheobronchial tree was inspected. Light sputum, clear color was see, no obstruction. Segmental branching was normal. The scope and orotracheal tube were then withdrawn together to the level of the cricoid cartilage. This provided full screen visualization for the percutaneous tracheostomy insertion dictated separately. Following trach insertion the new trach tube was immediately entered to confirm the tube's location in the mid-trachea, suitably above the connie. Conversion to direct tracheal ventilation was then accomplished and full tidal volumes returned. Sats were maintained > 95% throughout the procedure. Jack Farmer MD Sep 08, 2017 16:33
[2017-09-08] MEDS: ATORVASTATIN 40 MG TAB PO SCH (19:56)
--- NOTE | 2017-09-08 23:54 | HHI.NSPN ---
History Chief Complaint: Unable to obtain due to patient's clinical condition. Interval History 46-year-old male with history of hypertension who was brought to the emergency room per [facility] after being found with altered mental status, right hemiparesis. He had reportedly been seen to be normal approximately 3-1/2 hours prior. Systolic blood pressure greater than 260/130 on initial evaluation. No seizure activity reported. Positive emesis. Per emergency room personnel the patient was responding verbally, difficulty raising his right arm upon initial arrival. He was intubated in the emergency room and a stat CT scan accomplished which has revealed a primarily left thalamic intracranial hemorrhage. 09/01/17: Patient remains intubated and sedated. 09/02/17: Follow-up CT scan head with mild initial decreased intraventricular hemorrhage, no new thalamic hemorrhage, mild decreased mass effect. 09/03/17: Remains on propofol and fentanyl IV for ventilator control. Positive agitation with decreased sedation 09/06/17: Remains intubated. PEG tube placed today. On Decadron and Benadryl for angioedema. Lisinopril discontinued Exam Results Vital Signs Date Time Temp Pulse Resp B/P (MAP) Pulse Ox O2 Delivery O2 Flow Rate FiO2 09/08/17 22:00 96 09/08/17 20:00 30 09/08/17 20:00 101.1 23 160/74 (102) 96 09/08/17 19:00 Mechanical Ventilator Intake and Output 09/08/17 09/08/17 09/09/17 08:00 16:00 00:00 Intake Total 994 ml 2240 ml Output Total 2125 ml 1900 ml Balance -1131 ml 340 ml Physical Examination GENERAL: Obtunded but sedated with propofol 50 mcg/kg/min. He also has fentanyl 200 mcg/hr infusing for pain control. He is not in any apparent distress. HEENT: Normocephalic, atraumatic. Pupils 2 mm nonreactive, gaze dysconjugate. Orally intubated. Mild angioedema. MUSCULOSKELETAL: Some movement of lower extremities to noxious stimulation. No evident deformity or clubbing. NEUROLOGICAL: Obtunded Nonverbal, orally intubated. Does not follow commands. No cough reflex. No eye opening to noxious stimulation. Pupils 2 mm nonreactive bilaterally, gaze dysconjugate. Positive corneal reflex. Withdrawal response LLE>RLE to noxious stimulation, no movement of upper extremities noted. Lab, Micro, Other Results Last [address] 09/08/17 0800 Signed Impressions: Service Date/Time: Friday, September 08, 2017 09:28 - CONCLUSION: 1. Continued maturation of the left thalamic and intraventricular hemorrhage. 2. Stable midline shift measuring 2 mm. 3. Pansinus disease. David Castaneda Jr., MD Chest X-Ray 09/08/17 0000 Signed Impressions: Service Date/Time: Friday, September 08, 2017 14:13 - CONCLUSION: Trach in good position, otherwise stable Kalen Reece MD FACR Laboratory Tests Test 09/08/17 05:03 White Blood Count 11.9 TH/MM3 Red Blood Count 3.86 MIL/MM3 Hemoglobin 10.4 GM/DL Hematocrit 31.3 % Mean Corpuscular Volume 81.2 FL Mean Corpuscular Hemoglobin 26.9 PG Mean Corpuscular Hemoglobin Concent 33.2 % Red Cell Distribution Width 14.9 % Platelet Count 345 TH/MM3 Mean Platelet Volume 9.3 FL Neutrophils (%) (Auto) 74.5 % Lymphocytes (%) (Auto) 12.2 % Monocytes (%) (Auto) 10.4 % Eosinophils (%) (Auto) 2.1 % Basophils (%) (Auto) 0.8 % Neutrophils # (Auto) 8.9 TH/MM3 Lymphocytes # (Auto) 1.5 TH/MM3 Monocytes # (Auto) 1.2 TH/MM3 Eosinophils # (Auto) 0.2 TH/MM3 Basophils # (Auto) 0.1 TH/MM3 CBC Comment DIFF FINAL Differential Comment Prothrombin Time 11.0 SEC Prothromb Time International Ratio 1.0 RATIO Blood Urea Nitrogen 66 MG/DL Creatinine 3.98 MG/DL Random Glucose 182 MG/DL Total Protein 6.9 GM/DL Albumin 2.1 GM/DL Calcium Level 8.6 MG/DL Alkaline Phosphatase 55 U/L Aspartate Amino Transf (AST/SGOT) 180 U/L Alanine Aminotransferase (ALT/SGPT) 153 U/L Total Bilirubin 0.4 MG/DL Sodium Level 144 MEQ/L Potassium Level 2.7 MEQ/L Chloride Level 106 MEQ/L Carbon Dioxide Level 28.1 MEQ/L Anion Gap 10 MEQ/L Estimat Glomerular Filtration Rate 20 ML/MIN Phosphorus Level 4.1 MG/DL Medical Decision Making Impression and Plan Impression: 1. No improvement in neurologic exam since admission following relatively large thalamic intracranial hemorrhage. PEG tube in place Stable CT Head 09/08/17 Recommendations: Patient's family desires continued full supportive care measures. PEG tube placed. Tracheostomy Remains on ventilatory support with IV sedation due to agitation. Patient's family has previously been advised of the severe nature of the hemorrhage. I advised them that prognosis is uncertain at this point. It is likely however that he will have a protracted recovery. There is no guarantee that he will have any significant improvement in his mental functions. Palliative care as following Orville Tinajero MD Sep 08, 2017 23:54
[2017-09-09] VITALS (17 sets, daily range): BP systolic 124–155; BP diastolic 67–76; PULSE 86–100; RESP 20–23; TEMP 100.6–101.5; O2SAT 94–100
[2017-09-09] MEDS: fentaNYL DRIP 250 ML IV PRN ×2 (00:08→11:16)
[2017-09-09] MEDS: oxyCODONE HCL ORAL CONC 5 MG/0.25 ML SYRINGE PO SCH ×6 (00:08→20:27)
[2017-09-09] MEDS: PROPRANOLOL HCL 10 MG TAB PO SCH ×4 (00:08→18:29)
[2017-09-09] MEDS: INSULIN NovoLIN REGULAR SUPPLEMENTAL SCALE SQ SCH ×4 (00:41→18:00)
[2017-09-09] MEDS: PROPOFOL 1000 MG/100 ML INJ 100 ML IV PRN ×6 (01:25→22:10)
[2017-09-09] MEDS: RESP: ALBUTEROL 2.5 MG/IPRATROPIUM 0.5 MG NEB (SCH) NEB ×4 (02:11→20:55)
[2017-09-09] MEDS: CHLORHEXIDINE GLUCONATE 2 % 1 PACK (2 CLOTHS) TOP SCH (04:00)
[2017-09-09] MEDS: ACETAMINOPHEN 325 MG TAB PO PRN ×3 (04:50→18:29)
[2017-09-09] MEDS: cloNIDine HCL 0.3 MG TAB PO SCH ×3 (05:30→22:58)
[2017-09-09] MEDS: QUEtiapine FUMARATE 100 MG TAB PO SCH ×3 (05:30→22:58)
[2017-09-09] MEDS: PIPERACIL-TAZO 2.25 GM PREMIX 50 ML IV SCH ×3 (05:32→22:57)
[2017-09-09] MEDS: CHLORHEXIDINE 0.12% (ORAL KIT) 15 ML CUP MT SCH ×2 (08:00→20:00)
[2017-09-09] MEDS: LORazepam 1 MG TAB PO SCH ×2 (08:22→20:27)
[2017-09-09] MEDS: PANTOPRAZOLE SODIUM 40 MG VIAL IV PUSH SCH (08:22)
[2017-09-09] MEDS: FLUTICASONE PROPIONATE 50 MCG/ACT 16 GM NASAL SPRAY EACH NARE SCH (08:23)
[2017-09-09] MEDS: POLYETHYLENE GLYCOL 17 GM PKG PO SCH ×2 (08:23→20:26)
[2017-09-09] MEDS: DOCUSATE SODIUM 50 MG/SENNA 8.6 MG TAB PO SCH ×2 (08:23→20:27)
[2017-09-09 09:36] LABS: BICARBONATE 24.2 MEQ/L (21.0-32.0); CALCIUM 7.9 MG/DL (8.5-10.1); CREATININE 3.41 MG/DL (0.60-1.30)
--- NOTE | 2017-09-09 09:38 | HHI.NPPN ---
Subjective Renal Failure: Acute Interval History S/P trach placement yesterday. Remains unresponsive. BMP in process. Excellent urine output. (Ashly Lutz) Review of Systems General General Remarks unable to obtain (Ashly Lutz) Objective Data Data Vital Signs Date Time Temp Pulse Resp B/P (MAP) Pulse Ox O2 Delivery O2 Flow Rate FiO2 09/09/17 08:10 96 30 09/09/17 06:00 90 09/09/17 04:16 97 30 09/09/17 04:00 101.5 88 22 134/68 (90) 96 09/09/17 04:00 30 09/09/17 02:00 88 09/09/17 00:00 97 09/09/17 00:00 30 09/09/17 00:00 100.9 91 23 137/70 (92) 94 09/08/17 23:59 94 30 09/08/17 22:00 96 09/08/17 20:00 88 09/08/17 20:00 30 09/08/17 20:00 101.1 88 23 160/74 (102) 96 09/08/17 19:48 93 30 09/08/17 19:00 93 Mechanical Ventilator 30 09/08/17 18:53 23 09/08/17 18:00 89 09/08/17 16:36 23 09/08/17 16:09 97 30 09/08/17 16:00 82 09/08/17 16:00 100.4 82 23 150/73 (98) 95 09/08/17 16:00 30 09/08/17 14:00 84 09/08/17 13:50 100 100 09/08/17 12:00 100.0 81 20 148/76 (100) 97 09/08/17 12:00 80 09/08/17 12:00 30 09/08/17 11:05 94 30 09/08/17 10:00 81 (Ashly Lutz) -: 09/08/17 0503 09/08/17 0503 Imaging Last [address] 09/08/17 0800 Signed Impressions: Service Date/Time: Friday, September 08, 2017 09:28 - CONCLUSION: 1. Continued maturation of the left thalamic and intraventricular hemorrhage. 2. Stable midline shift measuring 2 mm. 3. Pansinus disease. David Castaneda Jr., MD Chest X-Ray 09/08/17 0000 Signed Impressions: Service Date/Time: Friday, September 08, 2017 14:13 - CONCLUSION: Trach in good position, otherwise stable Kalen Reece MD FACR Chest X-Ray 09/07/17 0600 Signed Impressions: Service Date/Time: Thursday, September 07, 2017 05:17 - CONCLUSION: The lungs appear grossly clear. The aeration in the lungs has improved from the prior exam. Ignacio Candelaria MD Liver Ultrasound 09/07/17 0000 Signed Impressions: Service Date/Time: Thursday, September 07, 2017 12:37 - CONCLUSION: 1. Unremarkable sonographic appearance of the liver. No evidence for hepatic volume loss or intrahepatic ductal dilatation. 2. No sonographic evidence for cholelithiasis or acute cholecystitis. 3. Mild increased right renal echogenicity may reflect medical renal disease. 4. Small bilateral pleural effusions. 5. Pancreas and inferior pole of the right kidney are obscured by bowel gas and therefore not evaluated. Darrell Robles MD Tubes & Lines: Coleman Tubes & Lines Comment PEG, trach Drip Comment fentanyl, propofol (Ashly Lutz B. [employer]ARM RANCHER) Physical Exam General Appearance: Well Developed, No Acute Distress, Comfortable Appearance Remarks unresponsive, intubated (Ashly Lutz B. [employer]ARM RANCHER) Ears & Nose Ears & Nose Remarks significant angioedema trach present (Ashly Lutz B. [employer] RAN[employer]ER) Neck Neck Exam: Neck Supple (BolivarAshly B. FARM RANCHER) Pulmonary Resp Exam: Clear Bilaterally, Breath Sounds Equal (BolivarAslhy B. [employer]ARM RANCHER) Cardiology CV Exam: Regular, Normal Sinus Rhythm (Ashly Lutz B. [employer]ARM R[employer]CHER) Gastrointestinal/Abdomen GI Exam: Soft, Non-Tender, Bowel Sounds Present, Positive Bowel Movement, Distended GI Remarks + PEG (Ashly Lutz B. [employer]) Genitourinary Exam: Clear Urine (Ashly Lutz B. [employer] R[employer]) Musculoskeletal MS Exam: Joints Intact, Normal Tone, Unable to Ambulate (Ashly Lutz B. [employer]) Integumentary Skin Exam: Warm, Dry, Intact (Ashly Lutz) Extremeties Extremities Exam: Pedal Pulses Palpable, Moderate Edema (Ashly Lutz) Neurologic Neuro Exam: Unresponsive, Sedated (Ashly Lutz) Assessment/Plan Assessment Summary: Hypertension Electrolyte Assessment: Hypokalemia Problem List: (1) Acute kidney injury ICD Codes: N17.9 - Acute kidney failure, unspecified Status: Acute Plan: Baseline creatinine around 2. He most likely has underlying CKD. RAFAELA most likley due to renal hypoperfusion resulting from normalization of BP. Renal function had been improving , awaiting repeat labs from today He has excellent urine output. Coleman is in place. Avoid IVF, nephrotoxic agents. Continue to replace potassium as needed. Off diuretics. (2) Hemorrhagic stroke ICD Codes: I61.9 - Nontraumatic intracerebral hemorrhage, unspecified Status: Acute Plan: Neurosurgery has followed, serial imaging reviewed. Non surgical management at this time. S/P PEG and tracheostomy Palliative is following, meaningful recovery is questionable. (3) Hypertension ICD Codes: I10 - Hypertension Status: Chronic Plan: BP improved. Continue oral medications. Monitor and titrate to effect. Plan p (Ashly Lutz) Plan patient was seen and examined. Renal function has improved. Replace potassium. Agree with above assessment and plan. (Adolph Rachel MD) Ashly Lutz Sep 09, 2017 09:38 Adolph Rachel MD Sep 09, 2017 14:27
[2017-09-09] MEDS: INSULIN DETEMIR 100 UNITS/ML VIAL SQ SCH ×2 (09:52→22:00)
[2017-09-09] MEDS ORDERED: POTASSIUM CHLORIDE 25 MEQ EFFERVESCENT TAB PO ONE (11:00)
--- NOTE | 2017-09-09 11:04 | HHI.CCPN ---
Subjective Remarks/Hospital Course Hospital Course: 46 y/o man with longstanding hypertension and previous CVA presents obtunded with new neurological symptoms noticed prior to arrival. Timeline unclear. Required intubation in ED for airway protection. CT head shows left thalamic bleed and shift away from bleed. Toxicology screen pending. Subjective: 08/30: encephalopathy persists. bp under better control, still on cardene. on sedation vacation, moves left side spontaneously but nothing on right. 08/31: overnight, severely agitated, requiring high dose sedation. also, lambert obstructed, new lambert placed with improvement in obstruction. this morning, RAFAELA with Cr up to 3. urine Na < 10, suggestive of pre-renal etiology. continued ivf. high peak pressures on vent. suction lavage with thick tenacious secretions. bronch with left lobe mucous plugging. bronchospasm a significant problem requiring iv magnesium and duonebs. finally attempted small paralytic dose with improvement in abdominal breathing and fighting ventilator. 09/01: No improvement in neuro exam, intermittent jerking movements noted by the RN no seizure. Creatinine for urine output adequate. I have consulted nephrology. We'll check CT of the head repeat EEG tomorrow a.m. 09/02: Clinically remains same. Did not tolerate sedation vacation, became hypertensive. CT head today showed slight improvement in L thalamic and IVH. Dr. Tinajero is the neurosurgeon, Dr. Jhaveri covering 09/03: Still unable to tolerate sedation vacation. Becomes very asynchronous with the vent with desaturations. Discussed with daughters about possible tracheostomy, they want to discuss with their mom, patient's ex -. Creatinine has worsened to 5.1 but no acute indication for dialysis. Will check ABG urine output 1.8 L in 24 hours 09/04: Remains intubated sedated synchronous with the vent. Noted to have tongue swelling/angioedema. Lisinopril discontinued. Placed on Decadron and IV Benadryl. Plan for tracheostomy and PEG tube placement next week 09/05: Patient remains intubated sedated critically ill. No change or improvement in neuro status. Lisinopril discontinued yesterday Decadron and Benadryl started tongue swelling is improved. Hyperglycemia secondary to Decadron, random blood sugar 360. Will wean to DC. Plan for trach and PEG this week, if family agreeable 09/06: Angioedema improving with Decadron and Benadryl. Still gets very agitated with sedation lightening. Needs improved blood pressure control increase clonidine to 0.3 every 8 hours. Plan for PEG today and Trach 09/08/1709/07: Stable overnight, except bleeding/oozing from the PEG site. We'll give single dose of nasal DDAVP. Creatinine slightly improved to 4.4, urine output 3.9 L in 24 hours. Plan for tracheostomy 09/08/17. 09/08: Tracheostomy completed. Tongue edema unchanged. 09/09: Tolerating spontaneous respiration on trach. Tongue edema persists. Objective Vital Signs Date Time Temp Pulse Resp B/P (MAP) Pulse Ox O2 Delivery O2 Flow Rate FiO2 09/09/17 09:44 20 09/09/17 08:10 96 30 09/09/17 07:00 Mechanical Ventilator 09/09/17 06:00 90 09/09/17 04:00 101.5 134/68 (90) Intake and Output 09/09/17 09/09/17 09/10/17 08:00 16:00 00:00 Intake Total 1484 ml Output Total 1850 ml Balance -366 ml Result Diagram: 09/08/17 0503 09/09/17 0800 Objective Remarks Gen: Sedated for vent compliance Head: Atraumatic. Conjunctivae injected. ENT: Tongue swollen/angioedema with laceration from bite. improving swelling Neck: Supple, trach site clean, dry. Lungs: Bilateral scattered rhonchi. Heart: Tachycardia, RR. Intermittently hypertensive. NL S1S2. Abdomen: Mildly distended, No guarding. Oozing from PEG site Extremities: Warm, well perfused. Neuro: RASS -4 on propofol and fentanyl. moves LUE/LLE spontaneously, no movement on right. does not follow commands. w/d to pain left UE and bilateral LE. pupils equal, round A/P Problem List: (1) Intracranial hemorrhage ICD Code: I62.9 - Nontraumatic intracranial hemorrhage, unspecified Status: Acute (2) Hemorrhagic stroke ICD Code: I61.9 - Nontraumatic intracerebral hemorrhage, unspecified Status: Acute (3) Hypertensive emergency ICD Code: I10 - Hypertensive emergency Status: Acute Assessment and Plan Assessment: 46yM with left thalamic hypertensive hemorrhagic IPH, ICH score 2. remains off pathway, poor neurologic exam. continue tight bp control. frequent neuro checks. cannot SBT or extubate while encephalopathic and hypertensive. Do not tolerate sedation vacation. Completed trach and PEG this week Active Problems: Acute encephalopathy Left Thalamic Hemorrhage, with IV extension Intracerebral Hemorrhage, ICH score 2 Acute hypoxic and Hypercarbic Respiratory failure Hypertensive Emergency Ventilatory Dyssynchrony Agitated Delirium Acute kidney failure Angioedema most likely EMIL inhibitor induced Hyperglycemia Plan: - Unable to do sedation vacation due to severe ventilator synchrony and desaturation - Sedation vacation after trach, tentatively planned for 09/08/17. s/p PEG 09/06 - DDAVP nasal spray due to oozing from PEG site - Seroquel 100mg po q8hr for agitation. Clonidine 0.3 mg PO q8h - Haldol 5mg iv q4h prn for breakthrough agitation - oxycodone 10mg po q4h. Fentanyl, propofol. Very hypertensive on attempted sedation vacation - Scheduled Ativan 2mg po q8 09/05/17, to help reduce IV sedation, will reduce to 1mg q12 - Prn boluses of neuromuscular blockade if we cannot get control of vent synchrony. - CT head 09/02 improving left thalamic and intraventricular hemorrhage, EEG severe encephalopathy, repeat CT 09/08 - D/W Dr. Tinajero 09/01, frequent neuro checks - goal SBP < 150. Cardene/labetalol/hydralazine prn - Renal ultrasound, nephrology consult. Dr. Rachel has seen the patient no indication for emergency dialysis. Creat improved from 4.6 to 4.4, UO 3.9L in 24 hours - TF at goal, bowel regimen-change to Glucerna - hyperglycemia secondary to Decadron. Started Levemir 10 units every 12, continue sliding scale - Lisinopril discontinued. dc IV Decadron and dc Benadryl - SCDs. hold pharmacologic DVT prophylaxis given ICH. Lovenox cleared by Dr. Tinajero but will not start due to bleeding from PEG site and anticipated trach - Protonix. - Trach, PEG completed. Overall impression: Hypertensive emergency and thalamic bleed. Tolerating weaning trials, trach completed. Jack Farmer MD Sep 09, 2017 11:04
[2017-09-09] MEDS: hydrALAZINE HCL 20 MG/ML VIAL IV PUSH PRN (12:35)
--- NOTE | 2017-09-09 15:45 | HHI.GIFU ---
Subjective Remarks Resting in bed. No active bleeding from peg site. Small amount of old dried blood noted on drsg. Site without redness or swelling. TF on hold secondary to high residuals. (Aleida Acosta) Objective Vitals I&O Vital Signs Date Time Temp Pulse Resp B/P (MAP) Pulse Ox O2 Delivery O2 Flow Rate FiO2 09/09/17 14:00 95 09/09/17 13:33 18 09/09/17 12:15 20 09/09/17 12:00 101.1 100 20 155/76 (102) 96 09/09/17 12:00 100 09/09/17 12:00 35 09/09/17 11:14 96 35 09/09/17 11:14 35 09/09/17 10:30 35 09/09/17 10:00 88 09/09/17 08:10 96 30 09/09/17 08:00 30 09/09/17 08:00 86 09/09/17 08:00 100.6 86 20 138/70 (92) 96 09/09/17 07:00 94 Mechanical Ventilator 30 09/09/17 06:00 90 09/09/17 04:16 97 30 09/09/17 04:00 101.5 88 22 134/68 (90) 96 09/09/17 04:00 30 09/09/17 02:00 88 09/09/17 00:00 97 09/09/17 00:00 30 09/09/17 00:00 100.9 91 23 137/70 (92) 94 09/08/17 23:59 94 30 09/08/17 22:00 96 09/08/17 20:00 88 09/08/17 20:00 30 09/08/17 20:00 101.1 88 23 160/74 (102) 96 09/08/17 19:48 93 30 09/08/17 19:00 93 Mechanical Ventilator 30 09/08/17 18:00 89 09/08/17 16:09 97 30 09/08/17 16:00 82 09/08/17 16:00 100.4 82 23 150/73 (98) 95 09/08/17 16:00 30 I/O 09/08/17 09/08/17 09/08/17 09/09/17 09/09/17 09/09/17 07:00 15:00 23:00 07:00 15:00 23:00 Intake Total 1131 ml 2240 ml 1600 ml Output Total 2125 ml 1900 ml 1850 ml Balance -994 ml 340 ml -250 ml Intake IV Total 891 ml 2190 ml 636 ml Tube Feeding 0 ml 50 ml 664 ml Other 240 ml 300 ml Output Urine Total 2125 ml 1900 ml 1850 ml # Bowel Movements 1 1 2 Laboratory Laboratory Tests Test 09/09/17 08:00 Blood Urea Nitrogen 59 Creatinine 3.41 Random Glucose 230 Calcium Level 7.9 Sodium Level 144 Potassium Level 3.2 Chloride Level 106 Carbon Dioxide Level 24.2 Anion Gap 14 Estimat Glomerular Filtration Rate 24 Date/Time Source Procedure Growth Status 08/31/17 06:05 Blood Peripheral Aerobic Blood Culture - Final NO GROWTH IN 5 DAYS Complete 08/31/17 06:05 Blood Peripheral Anaerobic Blood Culture - Final NO GROWTH IN 5 DAYS Complete 08/30/17 09:10 Sputum Endotracheal Gram Stain - Final Complete 08/30/17 09:10 Sputum Endotracheal Sputum Culture - Final MODERATE GROWTH NORMAL RESPIRATORY ESTELITA Complete 08/31/17 05:30 Urine Catheterized Urine Urine Culture - Final NO GROWTH IN 48 HOURS. Complete Imaging Last Impressions Head CT 09/08/17 0800 Signed Impressions: Service Date/Time: Friday, September 08, 2017 09:28 - CONCLUSION: 1. Continued maturation of the left thalamic and intraventricular hemorrhage. 2. Stable midline shift measuring 2 mm. 3. Pansinus disease. David Castaneda Jr., MD Chest X-Ray 09/08/17 0000 Signed Impressions: Service Date/Time: Friday, September 08, 2017 14:13 - CONCLUSION: Trach in good position, otherwise stable Kalen Reece MD FACR Liver Ultrasound 09/07/17 0000 Signed Impressions: Service Date/Time: Thursday, September 07, 2017 12:37 - CONCLUSION: 1. Unremarkable sonographic appearance of the liver. No evidence for hepatic volume loss or intrahepatic ductal dilatation. 2. No sonographic evidence for cholelithiasis or acute cholecystitis. 3. Mild increased right renal echogenicity may reflect medical renal disease. 4. Small bilateral pleural effusions. 5. Pancreas and inferior pole of the right kidney are obscured by bowel gas and therefore not evaluated. Darrell Robles MD Renal Ultrasound 08/31/17 0000 Signed Impressions: Service Date/Time: Thursday, August 31, 2017 17:42 - CONCLUSION: 1. No evidence of hydronephrosis on either side. 2. Solitary linear echogenic focus in the upper pole parenchyma of the right kidney has similar features to prior examination in January 2017 and possibly represents a calcification. David Snell MD Neck CTA 08/28/17 2347 Signed Impressions: Service Date/Time: Tuesday, August 29, 2017 00:13 - CONCLUSION: Negative carotid CTA. David Snell MD Head CTA 08/28/177 Signed Impressions: Service Date/Time: Tuesday, August 29, 2017 00:13 - CONCLUSION: 1. No evidence of vessel truncation or aneurysm. 2. No abnormal vessels in the region of the large left thalamic hemorrhage. David Snell MD Physical Exam HEENT: Normocephalic; atraumatic; no jaundice. Tongue edematous CHEST: Resp. even/unlabored. Diminished Trach with CPAP CARDIAC: RRR ABDOMEN: Tympanic, distended, bowel sounds present, hypoactive. PEG tube with small amount of old dried blood on drsg. Site without redness or swelling EXTREMITIES: Generalized edema SKIN: no rash; no jaundice. [employer]: Sedated (Aleida Acosta) Assessment and Plan Plan ASSESSMENT: - Dysphagia, FEN. S/P EGD with peg tube placement (09/06/17). He had bleeding noted from site on 09/07, S/P gelfoam with bulky drsg. Not currently having any active bleeding. Very small amount of old dried blood noted on drsg. - Abdominal distention, suspected ileus. On Miralax, Pericolace. Having loose stool. TF on hold for high residuals. Add Reglan at reduced dose. KUB in am. - Left Thalamic and Intraventricular Hemorrhage. EEG shows severe encephalopathy. Patient is sedated on vent. - Elevated LFTs, etiology unclear, suspect hepatic congestion vs medications. Liver US (09/07/17)--> Unremarkable sonographic appearance of hte liver. No evidence for hepatic volume loss or intrahepatic ductal dilatation. No sonographic evidence for cholelithiasis or acute cholecystitis. Mild increased right renal echogenicity may reflect medical renal disease. Small bilateral pleural effusions. Pancreas and inferior pole of the right kidney are obscured by bowel gas and therefore not evaluated. Check hepatitis profile, DHIRAJ, AMA, ASMA. LFT in am. - Angioedema, likely EMIL inhibitor. Has tracheostomy, lisinopril d/c'd s/p decadron/benadryl - AKF with electrolyte abnormalities - Resp. Failure. S/P Tracheostomy. Cpap per [facility]. PLAN: - NPO for now - Okay to start trickle feeds later today - Reglan 5mg IV q8h - Cont. Miralax, Senokot - Monitor PEG tube site for bleeding - Notify GI of bleeding - Monitor lft - Hepatitis profile - DHIRAJ, AMA, ASMA - KUB in am - SUpportive care - Further recommendations to follow based on results of above - Patient seen and examined by Dr. Beverly and myself and this note is written on his behalf. (Aleida Acosta) Aleida Acosta Sep 09, 2017 15:45 Teresa Beverly MD Sep 09, 2017 19:40
--- NOTE | 2017-09-09 17:57 | HHI.NSPN ---
History Chief Complaint: Unable to obtain due to patient's clinical condition. Interval History 46-year-old male with history of hypertension who was brought to the emergency room per [facility] after being found with altered mental status, right hemiparesis. He had reportedly been seen to be normal approximately 3-1/2 hours prior. Systolic blood pressure greater than 260/130 on initial evaluation. No seizure activity reported. Positive emesis. Per emergency room personnel the patient was responding verbally, difficulty raising his right arm upon initial arrival. He was intubated in the emergency room and a stat CT scan accomplished which has revealed a primarily left thalamic intracranial hemorrhage. 09/01/17: Patient remains intubated and sedated. 09/02/17: Follow-up CT scan head with mild initial decreased intraventricular hemorrhage, no new thalamic hemorrhage, mild decreased mass effect. 09/03/17: Remains on propofol and fentanyl IV for ventilator control. Positive agitation with decreased sedation 09/06/17: Remains intubated. PEG tube placed today. On Decadron and Benadryl for angioedema. Lisinopril discontinued Exam Results Vital Signs Date Time Temp Pulse Resp B/P (MAP) Pulse Ox O2 Delivery O2 Flow Rate FiO2 09/09/17 16:00 101.5 94 20 124/67 (86) 94 09/09/17 16:00 35 09/09/17 07:00 Mechanical Ventilator Intake and Output 09/09/17 09/09/17 09/10/17 08:00 16:00 00:00 Intake Total 1484 ml Output Total 1850 ml Balance -366 ml Physical Examination GENERAL: Obtunded but sedated with propofol 50 mcg/kg/min. He also has fentanyl 200 mcg/hr infusing for pain control. He is not in any apparent distress. HEENT: Normocephalic, atraumatic. Pupils 2 mm nonreactive, gaze dysconjugate. Orally intubated. Mild angioedema. MUSCULOSKELETAL: Some movement of lower extremities to noxious stimulation. No evident deformity or clubbing. NEUROLOGICAL: No eye opening to voice, spontaneous, or deep pain. Bilateral lateral gaze. Pupils 3 mm nonreactive Mild corneal response Minimal disconjugate oculocephalic response Positive cough response Minimal movement of the upper and lower extremities to deep pain-does not localize to deep pain Medical Decision Making Impression and Plan Impression: 1. No improvement in neurologic exam since admission following relatively large thalamic intracranial hemorrhage. PEG tube in place Stable CT Head 09/08/17 Recommendations: Patient's family desires continued full supportive care measures. Continuing antihypertensive scheduled and as needed medications-Norvasc, clonidine with as needed labetalol. Listed a probe discontinued secondary to PEG tube placed. Tracheostomy Remains on ventilatory support with IV sedation due to agitation. Patient's family has previously been advised of the severe nature of the hemorrhage. I advised them that prognosis is uncertain at this point. It is likely however that he will have a protracted recovery. There is no guarantee that he will have any significant improvement in his mental functions. Palliative care as following Orville Tinajero MD Sep 09, 2017 17:57
[2017-09-09] MEDS: ATORVASTATIN 40 MG TAB PO SCH (20:27)
[2017-09-09] MEDS: METOCLOPRAMIDE HCL 10 MG/2 ML VIAL IV PUSH SCH (22:58)
[2017-09-10] VITALS (17 sets, daily range): BP systolic 115–161; BP diastolic 63–89; PULSE 90–108; RESP 17–20; TEMP 99.8–101.5; O2SAT 95–100
[2017-09-10] MEDS: INSULIN NovoLIN REGULAR SUPPLEMENTAL SCALE SQ SCH ×4 (01:00→17:27)
[2017-09-10] MEDS: PROPOFOL 1000 MG/100 ML INJ 100 ML IV PRN ×3 (01:20→09:59)
[2017-09-10] MEDS: oxyCODONE HCL ORAL CONC 5 MG/0.25 ML SYRINGE PO SCH ×6 (01:33→20:25)
[2017-09-10] MEDS: CHLORHEXIDINE GLUCONATE 2 % 1 PACK (2 CLOTHS) TOP SCH (02:36)
[2017-09-10] MEDS: RESP: ALBUTEROL 2.5 MG/IPRATROPIUM 0.5 MG NEB (SCH) NEB ×4 (03:41→20:51)
[2017-09-10] MEDS: PIPERACIL-TAZO 2.25 GM PREMIX 50 ML IV SCH ×3 (04:57→22:53)
[2017-09-10] MEDS: QUEtiapine FUMARATE 100 MG TAB PO SCH ×3 (04:58→22:55)
[2017-09-10] MEDS: PROPRANOLOL HCL 10 MG TAB PO SCH ×5 (04:59→23:55)
[2017-09-10] MEDS: METOCLOPRAMIDE HCL 10 MG/2 ML VIAL IV PUSH SCH ×3 (05:19→22:55)
[2017-09-10] MEDS: cloNIDine HCL 0.3 MG TAB PO SCH ×3 (05:20→22:56)
--- NOTE | 2017-09-10 06:09 | RADRPT ---
EXAM DATE/TIME: 09/10/2017 03:56 [facility] COMPARISON: ABDOMEN KUB ONLY, January 07, 2017, 7:50. INDICATIONS : Ileus. MEDICAL HISTORY : None. Hypertension. Gastroesophageal reflux disease. Cerebrovascular accident.Migraines. SURGICAL HISTORY : None. ENCOUNTER: Initial ACUITY: 1 day PAIN SCORE: Non-responsive. LOCATION: abdomen FINDINGS: AP views of the abdomen demonstrate air within bowel in a nonobstructive pattern. Air is present most ly throughout the colon which is mildly distended. No organomegaly is present and there are no concer victor manuel calcifications. Catheter overlies the pelvis. Bones demonstrate no acute finding. CONCLUSION: No significant abnormality is identified. There is mild distention of the colon but there are no find ings to suggest bowel obstruction or significant ileus. Ignacio Underwood MD on September 10, 2017 at 6:04 Board Certified Radiologist. This report was verified electronically.
[2017-09-10 06:33] LABS: TOTAL BILIRUBIN ADULT 0.5 MG/DL (0.2-1.0); TOTAL PROTEIN 7.1 GM/DL (6.4-8.2)
[2017-09-10 06:36] LABS: ALBUMIN 2.1 GM/DL (3.4-5.0); DIRECT BILIRUBIN ADULT 0.1 MG/DL (0.0-0.2); INDIRECT BILIRUBIN 0.4 MG/DL (0.0-0.8)
[2017-09-10] MEDS: LORazepam 1 MG TAB PO SCH ×2 (07:00→19:00)
[2017-09-10] MEDS: CHLORHEXIDINE 0.12% (ORAL KIT) 15 ML CUP MT SCH ×2 (08:00→20:25)
[2017-09-10] MEDS: POLYETHYLENE GLYCOL 17 GM PKG PO SCH ×2 (09:00→21:00)
[2017-09-10] MEDS: DOCUSATE SODIUM 50 MG/SENNA 8.6 MG TAB PO SCH ×2 (09:00→20:25)
[2017-09-10] MEDS: FLUTICASONE PROPIONATE 50 MCG/ACT 16 GM NASAL SPRAY EACH NARE SCH (09:46)
[2017-09-10] MEDS: PANTOPRAZOLE SODIUM 40 MG VIAL IV PUSH SCH (09:47)
[2017-09-10] MEDS: INSULIN DETEMIR 100 UNITS/ML VIAL SQ SCH ×2 (09:48→22:00)
[2017-09-10] MEDS: fentaNYL DRIP 250 ML IV PRN ×2 (09:59)
--- NOTE | 2017-09-10 10:12 | HHI.NPPN ---
Subjective Renal Failure: Acute Interval History Unresponsive on vent. Family at bedside. Renal function has been improving, repeat labs in process. No new concerns. (Ashly Lutz) Review of Systems General General Remarks unable to obtain (Ashly Lutz) Objective Data Data Vital Signs Date Time Temp Pulse Resp B/P (MAP) Pulse Ox O2 Delivery O2 Flow Rate FiO2 09/10/17 08:15 35 09/10/17 08:15 98 35 09/10/17 07:00 98 Mechanical Ventilator 09/10/17 06:00 90 09/10/17 04:00 94 09/10/17 04:00 35 09/10/17 04:00 101.1 94 20 150/69 (96) 100 09/10/17 03:41 100 35 09/10/17 02:00 90 09/10/17 00:17 99 35 09/10/17 00:00 101.5 90 20 134/63 (86) 100 09/10/17 00:00 35 09/10/17 00:00 90 09/09/17 22:00 86 09/09/17 20:57 100 35 09/09/17 20:00 101.3 98 20 155/76 (102) 98 09/09/17 20:00 35 09/09/17 20:00 98 09/09/17 19:00 94 Mechanical Ventilator 35 09/09/17 18:00 94 09/09/17 16:00 101.5 94 20 124/67 (86) 94 09/09/17 16:00 90 09/09/17 16:00 35 09/09/17 15:41 97 35 09/09/17 14:00 95 09/09/17 13:33 18 09/09/17 12:15 20 09/09/17 12:00 101.1 100 20 155/76 (102) 96 09/09/17 12:00 100 09/09/17 12:00 35 09/09/17 11:14 96 35 09/09/17 11:14 35 09/09/17 10:30 35 (Ashly Lutz) -: 09/08/17 0503 09/09/17 0800 Imaging Last 72 hours Impressions Abdomen X-Ray 09/10/17 0600 Signed Impressions: Service Date/Time: Sunday, September 10, 2017 03:56 - CONCLUSION: No significant abnormality is identified. There is mild distention of the colon but there are no findings to suggest bowel obstruction or significant ileus. Ignacio Underwood MD Head CT 09/08/17 0800 Signed Impressions: Service Date/Time: Friday, September 08, 2017 09:28 - CONCLUSION: 1. Continued maturation of the left thalamic and intraventricular hemorrhage. 2. Stable midline shift measuring 2 mm. 3. Pansinus disease. David Castaneda Jr., MD Chest X-Ray 09/08/17 0000 Signed Impressions: Service Date/Time: Friday, September 08, 2017 14:13 - CONCLUSION: Trach in good position, otherwise stable Kalen Reece MD FACR Tubes & Lines: Coleman Tubes & Lines Comment PEG, trach Drip Comment fentanyl, propofol (BolivarAshly B. [employer]IC) Physical Exam General Appearance: Well Developed, No Acute Distress, Comfortable Appearance Remarks unresponsive, intubated (BolivarAshly B. [employer]CH[employer]IC) Ears & Nose Ears & Nose Remarks significant angioedema trach present (BolivarAshly B. [employer]CH[employer]IC) Neck Neck Exam: Neck Supple (Bolivar,Ashly B. [employer] MECHANIC) Pulmonary Resp Exam: Clear Bilaterally, Breath Sounds Equal (Bolivar,Ashly B. [employer] MECHANIC) Cardiology CV Exam: Regular, Normal Sinus Rhythm (Bolivar,Ashly B. [employer] MECHANIC) Gastrointestinal/Abdomen GI Exam: Soft, Non-Tender, Bowel Sounds Present, Positive Bowel Movement, Distended GI Remarks + PEG (BolivarAshly B. [employer] MECHANIC) Genitourinary Exam: Clear Urine (BolivarAshly B. [employer]CH[employer]IC) Musculoskeletal MS Exam: Joints Intact, Normal Tone, Unable to Ambulate (BolivarAshly B. [employer]CH[employer]IC) Integumentary Skin Exam: Warm, Dry, Intact (BolivarAshly B. [employer]CHANIC) Extremeties Extremities Exam: Pedal Pulses Palpable, Moderate Edema (Bolivar,Ashly B. [employer] MECH[employer]IC) Neurologic Neuro Exam: Unresponsive, Sedated (BolivarAshly B. [employer]CH[employer]IC) Assessment/Plan Discussed Condition With: Relative Assessment Summary: Hypertension Electrolyte Assessment: Hypokalemia Problem List: (1) Acute kidney injury ICD Codes: N17.9 - Acute kidney failure, unspecified Status: Acute Plan: Baseline creatinine around 2. He most likely has underlying CKD. RAFAELA most likley due to renal hypoperfusion resulting from normalization of BP. Improving renal function , awaiting repeat labs from today He has excellent urine output. Coleman is in place. Avoid IVF, nephrotoxic agents. Continue to replace potassium as needed. Off diuretics. (2) Hemorrhagic stroke ICD Codes: I61.9 - Nontraumatic intracerebral hemorrhage, unspecified Status: Acute Plan: Neurosurgery has followed, serial imaging reviewed. Non surgical management at this time. S/P PEG and tracheostomy Palliative is following, meaningful recovery is questionable. (3) Hypertension ICD Codes: I10 - Hypertension Status: Chronic Plan: BP improved. Continue oral medications. Monitor and titrate to effect. (Ashly Lutz) Plan patient was seen and examined. Agree with above assessment and plan. Renal function continues to improve. For unclear reasons, he continues to have hypokalemia. Replace. Repeat Magnesium level. (Adolph Rachel MD) Ashly Lutz Sep 10, 2017 10:12 Adolph Rachel MD Sep 10, 2017 12:34
--- NOTE | 2017-09-10 10:18 | HHI.NSPN ---
(James Ontiveros) History Chief Complaint: Unable to obtain due to patient's clinical condition. (James Ontiveros) Interval History 08/29: History of hypertension who was brought to the emergency room per [facility] after being found with altered mental status, right hemiparesis. He had reportedly been seen to be normal approximately 3-1/2 hours prior. Systolic blood pressure greater than 260/130 on initial evaluation. No seizure activity reported. Positive emesis. Per emergency room personnel the patient was responding verbally, difficulty raising his right arm upon initial arrival. He was intubated in the emergency room and a stat CT scan accomplished which has revealed a primarily left thalamic intracranial hemorrhage. 09/01/17: Patient remains intubated and sedated. 09/02: intubated and well sedated, not tolerating sedation vacation due to increase in blood pressure. 09/03/17: Remains on propofol and fentanyl IV for ventilator control. Positive agitation with decreased sedation 09/04/17: Pt sedated on Diprivan and Fentanyl drip. Not following commands. Pt on Cardene drip. Intubated. 09/05/17: Pt sedated on Diprivan and Fentanyl drip. Not following commands. Pt on Cardene drip. Intubated. Pupils 2mm bilaterally, NR bilaterally. 09/06/17: Remains intubated. PEG tube placed today. On Decadron and Benadryl for angioedema. Lisinopril discontinued 09/07. The patient is obtunded but is sedated with propofol. Nursing reports that the patient does have bleeding secondary to his PEG tube being placed yesterday. The family reports that the plan is to do a tracheostomy tomorrow. Nursing does say the patient does withdraw to stimulation, has a cough and gag reflex but his pupils are nonreactive. 09/10: The patient continues to be obtunded although he has sedation infusing at a low dose. He is trached and tolerating a CPAP trial. (James Ontiveros) System Review Comments Unable to obtain due to patient's clinical condition. (James Ontiveros) Exam Results 09/08/17 09/08/17 09/09/17 09/09/17 09/10/17 09/10/17 06:00 18:00 06:00 18:00 06:00 18:00 Intake Total 967 ml 2271 ml 1733 ml 1348 ml 550 ml Output Total 2125 ml 1900 ml 1850 ml 1800 ml 1500 ml Balance -1158 ml 371 ml -117 ml -452 ml -950 ml Intake IV Total 727 ml 2221 ml 769 ml 901 ml 550 ml Tube Feeding 0 ml 50 ml 664 ml 447 ml Other 240 ml 300 ml Output Urine Total 2125 ml 1900 ml 1850 ml 1800 ml 1500 ml # Bowel Movements 1 1 2 2 1 Vital Signs Date Time Temp Pulse Resp B/P (MAP) Pulse Ox O2 Delivery O2 Flow Rate FiO2 09/10/17 08:15 35 09/10/17 08:15 98 35 09/10/17 06:00 90 09/10/17 04:00 94 09/10/17 04:00 35 09/10/17 04:00 101.1 94 20 150/69 (96) 100 09/10/17 03:41 100 35 09/10/17 02:00 90 09/10/17 00:17 99 35 09/10/17 00:00 101.5 90 20 134/63 (86) 100 09/10/17 00:00 35 09/10/17 00:00 90 09/09/17 22:00 86 09/09/17 20:57 100 35 09/09/17 20:00 101.3 98 20 155/76 (102) 98 09/09/17 20:00 35 09/09/17 20:00 98 09/09/17 19:00 94 Mechanical Ventilator 35 09/09/17 18:00 94 09/09/17 16:00 101.5 94 20 124/67 (86) 94 09/09/17 16:00 90 09/09/17 16:00 35 09/09/17 15:41 97 35 09/09/17 14:00 95 09/09/17 13:33 18 09/09/17 12:15 20 09/09/17 12:00 101.1 100 20 155/76 (102) 96 09/09/17 12:00 100 09/09/17 12:00 35 09/09/17 11:14 96 35 09/09/17 11:14 35 09/09/17 10:30 35 09/09/17 10:00 88 09/09/17 08:10 96 30 09/09/17 08:00 30 09/09/17 08:00 86 09/09/17 08:00 100.6 86 20 138/70 (92) 96 09/09/17 07:00 94 Mechanical Ventilator 30 09/09/17 06:00 90 09/09/17 04:16 97 30 09/09/17 04:00 101.5 88 22 134/68 (90) 96 09/09/17 04:00 30 09/09/17 02:00 88 09/09/17 00:00 97 09/09/17 00:00 30 09/09/17 00:00 100.9 91 23 137/70 (92) 94 09/08/17 23:59 94 30 09/08/17 22:00 96 09/08/17 20:00 88 09/08/17 20:00 30 09/08/17 20:00 101.1 88 23 160/74 (102) 96 09/08/17 19:48 93 30 09/08/17 19:00 93 Mechanical Ventilator 30 09/08/17 18:00 89 09/08/17 16:09 97 30 09/08/17 16:00 82 09/08/17 16:00 100.4 82 23 150/73 (98) 95 09/08/17 16:00 30 09/08/17 14:00 84 09/08/17 13:50 100 100 09/08/17 12:00 100.0 81 20 148/76 (100) 97 09/08/17 12:00 80 09/08/17 12:00 30 09/08/17 11:05 94 30 09/08/17 10:00 81 09/08/17 09:25 100 100 09/08/17 08:00 30 09/08/17 08:00 82 09/08/17 08:00 99.5 82 20 156/81 (106) 95 09/08/17 07:43 98 30 09/08/17 07:00 94 Mechanical Ventilator 30 09/08/17 06:00 80 09/08/17 04:00 92 09/08/17 04:00 40 09/08/17 04:00 101.1 92 20 188/95 (126) 97 09/08/17 03:47 95 30 09/08/17 02:00 81 09/08/17 00:00 100.0 78 20 161/88 (112) 96 09/08/17 00:00 40 09/08/17 00:00 78 09/07/17 22:00 84 09/07/17 21:20 95 30 09/07/17 20:00 100.8 82 20 160/86 (110) 94 09/07/17 20:00 82 09/07/17 20:00 40 09/07/17 19:00 95 Mechanical Ventilator 30 09/07/17 18:00 82 09/07/17 16:00 77 09/07/17 16:00 40 09/07/17 16:00 100.2 84 20 139/77 (97) 97 09/07/17 15:47 95 30 09/07/17 14:00 84 09/07/17 12:00 100.2 81 20 144/76 (98) 98 09/07/17 12:00 81 09/07/17 12:00 40 09/07/17 11:25 94 30 09/07/17 10:00 80 (James Ontiveros) Physical Examination GENERAL: Obtunded, only has propofol 10 mcg/kg/min for sedation. He is not in any apparent distress. HEENT: Normocephalic, atraumatic. Pupils 3 mm nonreactive, disconjugate oculocephalic response & bilateral lateral gaze. NECK: Tracheostomy, no JVD, trachea midline. RESPIRATORY: Slightly coarse on right, inspiratory wheezes bilaterally, trached , mechanically ventilated. CARDIOVASCULAR: S1S2 w/RRR w/o M/G/R, radial & pedal pulses 2+ bilaterally, cap refill < 2 sec, dependent edema. Monitor is sinus rhythm w/o any ectopy noted. GASTROINTESTINAL: Abdomen distended, tympanic to upper quadrants, bowel sounds not appreciated, PEG tube w/enteral feeds. MUSCULOSKELETAL: No movement of extremities noted spontaneously or to stimulation. No evident deformity or clubbing. NEUROLOGICAL: Obtunded, GCS 3T (E1 V1T M1). No eye opening spontaneously or to voice or noxious stimulation. Nonverbal, trached. Does not follow commands. Pupils 3 mm nonreactive. Bilateral lateral gaze. Minimal disconjugate oculocephalic response. Positive cough response. No motor response to local or central noxious stimulation. (James Ontiveros) Lab, Micro, Other Results Recent Impressions Abdomen X-Ray 09/10/17 0600 Signed Impressions: Service Date/Time: Sunday, September 10, 2017 03:56 - CONCLUSION: No significant abnormality is identified. There is mild distention of the colon but there are no findings to suggest bowel obstruction or significant ileus. Ignacio Underwood MD Head CT 09/08/17 0800 Signed Impressions: Service Date/Time: Friday, September 08, 2017 09:28 - CONCLUSION: 1. Continued maturation of the left thalamic and intraventricular hemorrhage. 2. Stable midline shift measuring 2 mm. 3. Pansinus disease. David Castaneda Jr., MD Chest X-Ray 09/08/17 0000 Signed Impressions: Service Date/Time: Friday, September 08, 2017 14:13 - CONCLUSION: Trach in good position, otherwise stable Kalen Reece MD FACR Laboratory Tests Test 09/07/17 22:40 09/08/17 05:03 09/09/17 08:00 09/09/17 18:10 Hemoglobin 10.2 GM/DL 10.4 GM/DL Hematocrit 31.4 % 31.3 % White Blood Count 11.9 TH/MM3 Red Blood Count 3.86 MIL/MM3 Mean Corpuscular Volume 81.2 FL Mean Corpuscular Hemoglobin 26.9 PG Mean Corpuscular Hemoglobin Concent 33.2 % Red Cell Distribution Width 14.9 % Platelet Count 345 TH/MM3 Mean Platelet Volume 9.3 FL Neutrophils (%) (Auto) 74.5 % Lymphocytes (%) (Auto) 12.2 % Monocytes (%) (Auto) 10.4 % Eosinophils (%) (Auto) 2.1 % Basophils (%) (Auto) 0.8 % Neutrophils # (Auto) 8.9 TH/MM3 Lymphocytes # (Auto) 1.5 TH/MM3 Monocytes # (Auto) 1.2 TH/MM3 Eosinophils # (Auto) 0.2 TH/MM3 Basophils # (Auto) 0.1 TH/MM3 CBC Comment DIFF FINAL Differential Comment Prothrombin Time 11.0 SEC Prothromb Time International Ratio 1.0 RATIO Blood Urea Nitrogen 66 MG/DL 59 MG/DL Creatinine 3.98 MG/DL 3.41 MG/DL Random Glucose 182 MG/DL 230 MG/DL Total Protein 6.9 GM/DL Albumin 2.1 GM/DL Calcium Level 8.6 MG/DL 7.9 MG/DL Alkaline Phosphatase 55 U/L Aspartate Amino Transf (AST/SGOT) 180 U/L Alanine Aminotransferase (ALT/SGPT) 153 U/L Total Bilirubin 0.4 MG/DL Sodium Level 144 MEQ/L 144 MEQ/L Potassium Level 2.7 MEQ/L 3.2 MEQ/L Chloride Level 106 MEQ/L 106 MEQ/L Carbon Dioxide Level 28.1 MEQ/L 24.2 MEQ/L Anion Gap 10 MEQ/L 14 MEQ/L Estimat Glomerular Filtration Rate 20 ML/MIN 24 ML/MIN Phosphorus Level 4.1 MG/DL Test 09/10/17 05:10 Total Bilirubin 0.5 MG/DL Direct Bilirubin 0.1 MG/DL Indirect Bilirubin 0.4 MG/DL Aspartate Amino Transf (AST/SGOT) 131 U/L Alanine Aminotransferase (ALT/SGPT) 142 U/L Alkaline Phosphatase 68 U/L Total Protein 7.1 GM/DL Albumin 2.1 GM/DL (James Ontiveros) Medical Decision Making Impression and Plan Impression: 1. Large thalamic intracranial hemorrhage. Patient continues to be obtunded w/minimal sedation. No motor response to to noxious stimulation. Prognosis poor for any meaningful recovery. CT brain w/evolution of left thalamic & intraventricular haemorrhage , stable midline shift., no acute findings. Reviewed labs for today. Plan: Discussed plan of care with family and Nursing. Primary management per [place] [facility]. Neuro checks. Palliative Care consult. Continue full supportive care measures per family. Plan for repeat CT brain on . (James Ontiveros) Attending Statement The exam, history, and the medical decision-making described in the above note were completed with the assistance of the mid-level provider. I reviewed and agree with the findings presented. I attest that I had a [id number] encounter with the patient on the same day, and personally performed and documented my assessment and findings in the medical record. Permanence with minimal response on neurologic exam. Trach in place CPAP Trials ongoing Continuing therapy and supportive care Guarded prognosis (Orville Tinajero MD) James Ontiveros Sep 10, 2017 10:18 Orville Tinajero MD Oct 05, 2017 08:59
[2017-09-10 10:36] LABS: ALBUMIN 2.1 GM/DL (3.4-5.0); BICARBONATE 26.2 MEQ/L (21.0-32.0); CALCIUM 8.4 MG/DL (8.5-10.1); CREATININE 3.28 MG/DL (0.60-1.30); PHOSPHORUS 2.9 MG/DL (2.5-4.9)
[2017-09-10 11:30] LABS: ANA SCREEN NEG (NEG)
[2017-09-10 12:20] LABS: HEPATITIS A AB IGM NEGATIVE (NEGATIVE); HEPATITIS B CORE AB IGM NEGATIVE (NEGATIVE); HEPATITIS B SURFACE ANTIGEN NEGATIVE (NEGATIVE); HEPATITIS C AB IgG NEGATIVE (NEGATIVE)
--- NOTE | 2017-09-10 12:26 | HHI.HCPN ---
Reason for visit a. To assist with evaluation and management of symptoms including: Pain and dyspnea. b. To assist medical decision maker(s) with: better understanding of current medical conditions; weighing benefits/burdens of medical treatment options; making medical treatment decisions. . Subjective/Interval History Mr. Matos is a 46-year-old male with a medical history significant for TIA, hypertension and migraines. Patient presented to ED via EMS on 08/28/[address] as stroke alert. Head CT revealing acute hemorrhagic stroke in the right thalamus with extension of the lateral third ventricles with a shift onto the right side of 6 mm. patient was subsequently intubated and placed on mechanical ventilation. Palliative care was consulted for further clarifications of goals of care and emotional support. Dual visit with palliative care licensed clinical social worker Crissy Castaneda. Patient seen in surgical ICU. Status post PEG tube placement in 09/06/17 and tracheostomy on . Patient currently tolerating CPAP trials, sedation has been decrease throughout this morning. Patient remains unresponsive to verbal stimuli, not opening eyes or following any commands. Max temperature 101.5 this morning. Tube feedings restarted at 10 mL an hour, high residuals yesterday. Abdominal x -ray today revealing mild distention of the colon but no bowel obstruction or significant ileus noted. Renal function has continued to improve, BUN/ creatinine 52/3.28. Good urinary output, nephrology following. Spoke with patient's daughter Shannan at bedside. Medical update provided. Reviewed current medical treatment and recommendations. Gently reviewed that patient remains in critical condition, prognosis for meaningful recovery is guarded. Anticipate prolonged hospitalization given aggressive goals. Case discussed with case management and bedside MARLYS Harrington. . Family/friend interactions See interval note. . Advance Directives Living Will: Never completed Health Care Surrogate: Never completed Durable Power of Security Site Supervisor: Never completed Advance Directive Specifics Health Care Surrogate(s): No advance directives completed as per patient's family. Patient is . As per [place] law, healthcare proxy decision making falls to the majority of patient's adult children for which he has 3 (4th child is 4 years old). Daughter Shannan, daughter Nichole and son Hadley Maddox wish to participate. . Significant change in goals: Goals of therapy remain the same. . Objective Vital Signs Date Time Temp Pulse Resp B/P (MAP) Pulse Ox O2 Delivery O2 Flow Rate FiO2 09/10/17 11:45 95 T-piece 35 09/10/17 10:00 96 09/10/17 08:15 35 09/10/17 08:15 98 35 09/10/17 08:00 35 09/10/17 08:00 90 09/10/17 08:00 101.5 100 20 115/67 (83) 96 09/10/17 07:00 98 Mechanical Ventilator 09/10/17 06:00 90 09/10/17 04:00 94 09/10/17 04:00 35 09/10/17 04:00 101.1 94 20 150/69 (96) 100 09/10/17 03:41 100 35 09/10/17 02:00 90 09/10/17 00:17 99 35 09/10/17 00:00 101.5 90 20 134/63 (86) 100 09/10/17 00:00 35 09/10/17 00:00 90 09/09/17 22:00 86 09/09/17 20:57 100 35 09/09/17 20:00 101.3 98 20 155/76 (102) 98 09/09/17 20:00 35 09/09/17 20:00 98 09/09/17 19:00 94 Mechanical Ventilator 35 09/09/17 18:00 94 09/09/17 16:00 101.5 94 20 124/67 (86) 94 09/09/17 16:00 90 09/09/17 16:00 35 09/09/17 15:41 97 35 09/09/17 14:00 95 09/09/17 13:33 18 09/09/17 12:15 20 Intake & Output 09/10/17 09/10/17 07:00 19:00 Intake Total 550 ml Output Total 1500 ml Balance -950 ml Intake IV Total 550 ml Output Urine Total 1500 ml # Bowel Movements 1 Physical Exam CONSTITUTIONAL/GENERAL: This is an obese patient intubated on mechanical ventilation via tracheostomy. Currently tolerating CPAP trials. TUBES/LINES/DRAINS: ETT, PEG tube, tracheostomy, SCDs, Coleman catheter, PIV's. SKIN: No jaundice, rashes, or lesions. No wounds seen anteriorly. Skin temperature appropriate. Not diaphoretic. HEAD: Atraumatic. Normocephalic. EYES: No scleral icterus. Bilateral injected conjunctiva. ENT: Unable to evaluate hearing secondary to clinical condition. Nose without bleeding or purulent drainage. Moist oral mucosa. NECK: Trachea midline. Supple. CARDIOVASCULAR: Regular rate and rhythm without murmurs, gallops, or rubs. Peripheral pulses symmetric. RESPIRATORY/CHEST: Symmetric, coarse breath sounds bilaterally, right more than left. Trach, on mechanical ventilation. GASTROINTESTINAL: Abdomen obese, large, distended. Unable to appreciate hepatomegaly secondary to body habitus. Bowel sounds hypoactive. PEG tube in place. GENITOURINARY: Without palpable bladder distension. Coleman catheter in place. MUSCULOSKELETAL: Extremities without clubbing, cyanosis. No mottling or clubbing. Edema to all 4 extremities. NEUROLOGICAL: Unresponsive to verbal or tactile stimuli. PSYCHIATRIC: Unable to evaluate secondary to clinical condition. Appears calm. . Diagnostic Tests Laboratory Laboratory Tests Test 09/07/17 22:40 09/08/17 05:03 09/09/17 08:00 09/09/17 18:10 Hemoglobin 10.2 GM/DL (13.0-17.0) 10.4 GM/DL (13.0-17.0) Hematocrit 31.4 % (39.0-51.0) 31.3 % (39.0-51.0) White Blood Count 11.9 TH/MM3 (4.0-11.0) Red Blood Count 3.86 MIL/MM3 (4.50-5.90) Mean Corpuscular Volume 81.2 FL (80.0-100.0) Mean Corpuscular Hemoglobin 26.9 PG (27.0-34.0) Mean Corpuscular Hemoglobin Concent 33.2 % (32.0-36.0) Red Cell Distribution Width 14.9 % (11.6-17.2) Platelet Count 345 TH/MM3 (150-450) Mean Platelet Volume 9.3 FL (7.0-11.0) Neutrophils (%) (Auto) 74.5 % (16.0-70.0) Lymphocytes (%) (Auto) 12.2 % (9.0-44.0) Monocytes (%) (Auto) 10.4 % (0.0-8.0) Eosinophils (%) (Auto) 2.1 % (0.0-4.0) Basophils (%) (Auto) 0.8 % (0.0-2.0) Neutrophils # (Auto) 8.9 TH/MM3 (1.8-7.7) Lymphocytes # (Auto) 1.5 TH/MM3 (1.0-4.8) Monocytes # (Auto) 1.2 TH/MM3 (0-0.9) Eosinophils # (Auto) 0.2 TH/MM3 (0-0.4) Basophils # (Auto) 0.1 TH/MM3 (0-0.2) CBC Comment DIFF FINAL Differential Comment Prothrombin Time 11.0 SEC (9.8-11.6) Prothromb Time International Ratio 1.0 RATIO Blood Urea Nitrogen 66 MG/DL (7-18) 59 MG/DL (7-18) Creatinine 3.98 MG/DL (0.60-1.30) 3.41 MG/DL (0.60-1.30) Random Glucose 182 MG/DL (74-106) 230 MG/DL (74-106) Total Protein 6.9 GM/DL (6.4-8.2) Albumin 2.1 GM/DL (3.4-5.0) Calcium Level 8.6 MG/DL (8.5-10.1) 7.9 MG/DL (8.5-10.1) Alkaline Phosphatase 55 U/L (45-117) Aspartate Amino Transf (AST/SGOT) 180 U/L (15-37) Alanine Aminotransferase (ALT/SGPT) 153 U/L (12-78) Total Bilirubin 0.4 MG/DL (0.2-1.0) Sodium Level 144 MEQ/L (136-145) 144 MEQ/L (136-145) Potassium Level 2.7 MEQ/L (3.5-5.1) 3.2 MEQ/L (3.5-5.1) Chloride Level 106 MEQ/L (98-107) 106 MEQ/L (98-107) Carbon Dioxide Level 28.1 MEQ/L (21.0-32.0) 24.2 MEQ/L (21.0-32.0) Anion Gap 10 MEQ/L (5-15) 14 MEQ/L (5-15) Estimat Glomerular Filtration Rate 20 ML/MIN (>89) 24 ML/MIN (>89) Phosphorus Level 4.1 MG/DL (2.5-4.9) Anti-Nuclear Antibody Screen NEG (NEG) Test 09/10/17 05:10 Blood Urea Nitrogen 52 MG/DL (7-18) Creatinine 3.28 MG/DL (0.60-1.30) Random Glucose 167 MG/DL (74-106) Albumin 2.1 GM/DL (3.4-5.0) Calcium Level 8.4 MG/DL (8.5-10.1) Phosphorus Level 2.9 MG/DL (2.5-4.9) Sodium Level 145 MEQ/L (136-145) Potassium Level 3.1 MEQ/L (3.5-5.1) Chloride Level 106 MEQ/L (98-107) Carbon Dioxide Level 26.2 MEQ/L (21.0-32.0) Anion Gap 13 MEQ/L (5-15) Estimat Glomerular Filtration Rate 25 ML/MIN (>89) Total Bilirubin 0.5 MG/DL (0.2-1.0) Direct Bilirubin 0.1 MG/DL (0.0-0.2) Indirect Bilirubin 0.4 MG/DL (0.0-0.8) Aspartate Amino Transf (AST/SGOT) 131 U/L (15-37) Alanine Aminotransferase (ALT/SGPT) 142 U/L (12-78) Alkaline Phosphatase 68 U/L (45-117) Total Protein 7.1 GM/DL (6.4-8.2) Result Diagram: 09/08/17 0503 09/10/17 0510 Imaging Last 48 hours Impressions Abdomen X-Ray 09/10/17 0600 Signed Impressions: Service Date/Time: Sunday, September 10, 2017 03:56 - CONCLUSION: No significant abnormality is identified. There is mild distention of the colon but there are no findings to suggest bowel obstruction or significant ileus. Ignacio Underwood MD Procedures * 08/28/17 -endotracheal intubation * 08/31/17 -therapeutic bronchoscopy * 09/06/17 -PEG tube placement * 09/08/17 -tracheostomy . Assessment and Plan Disease Oriented Problem List: (1) Hemorrhagic stroke (2) Intracranial hemorrhage (3) Hypertensive emergency (4) Acute kidney injury (5) Acute encephalopathy Symptom Scale: (1) Dyspnea 0-10 Scale: Unable to quantify Comment: Secondary to acute respiratory failure. Remains intubated on mechanical ventilation. (2) Pain 0-10 Scale: Unable to quantify Comment: On fentanyl drip. Pertinent Non-Medical Issues Psychosocial: Patient originally from [facility]. He is the youngest of 4 siblings. High school education. 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 Patient is , has 4 children. No service. Spiritual: Hoahaoism lenny. Legal: No advance directives completed as per patient's family. Ethical issues impacting care: Patient unable to participate in medical decision -making secondary to clinical condition. 3 adult children serving as healthcare proxy decision makers. . Important Contacts Daughter Shannan Matos , Daughter Nichole Matos Son Hadley Matos Ex- (mother of his children) Janet Matos . Patient's father Jem Matos . . Prognosis Mr. Matos is a 46-year-old male with a medical history significant for TIA, uncontrolled hypertension and migraines. Patient presented to ED via EMS on as stroke alert. Patient was last seen with normal neurological function approximately 3-1/2 hours prior to ED arrival. Upon ED arrival, GCS of 7, blood pressure 238/153. He subsequently had a vomiting episode requiring emergent intubation and mechanical ventilation. Head CT revealing acute hemorrhaic stroke in the right thalamus with extension of the lateral third ventricles with a shift onto the right side of 6 mm. chest x-ray revealing left lower lobe consolidation and patchy infiltrates in the central right lung. Clinical course complicated by acute encephalopathy, acute hypoxemic and hypercarbic respiratory failure and acute kidney injury. Patient remains a high risk for further complications, continue decline and . Condition guarded at this time. . Code Status: Full Code Plan * CODE STATUS: Full code. * HEALTHCARE DECISION-MAKING: Patient lacking capacity for medical decision- making secondary to clinical condition , encephalopathy, intubated on mechanical ventilation. Not likely to regain capacity giving brain bleed. No advance directives completed as per patient's family. Patient is . As per [place] law, healthcare proxy decision making falls to the majority of patient's adult children for which he has 3 (4th child is 4 years old). Daughters Shannan and Nichole and son Hadley Cuellar All wishing to participate. * GOALS OF CARE: Family electing for aggressive medical management to include FULL code. Gently discussed with family that patient's overall prognosis for a meaningful recovery is guarded at this time. Long-term plans for this patient are impacted by his psychosocial situation, he has no payor source or coverage for acute rehabilitation/long-term placement. * SYMPTOMS: = Dyspnea, secondary to acute respiratory failure. Patient underwent tracheostomy placement on 09/08/17, currently tolerating CPAP trials with decreased sedation. = Pain: Secondary to intubation, medical interventions , bedbound. Currently on fentanyl drip and oxycodone 10 mg every 4 hours. = Bowels: MiraLAX, lactulose and Melina-Colace [id number]. Dulcolax suppository available. = Restlessness/agitation: Patient has been placed on Seroquel 100 mg every 8 hours and Haldol as needed. Lorazepam 1 mg twice a day was added on 09/07/17. * Case discussed with bedside RN Len and case management. * Palliative care contact information has been provided to patient's family. * Palliative care will continue to follow-up for further clarifications of goals of care, provide emotional support as patient's clinical course continues to evolve. . Time Spent Total Floor Time (mins): 27 (Total time to include review medical records, physical exam, conversation with patient's daughter Shannan at bedside, case discussion with bedside RN and case management.) >50% Counseling/Coord of Care: Yes Attestation To help prompt me to consider important information that might be impacting today's encounter and assessment, information from prior notes written by myself or my colleagues may have been "brought forward" into today's note. My signature on this note, however, is an attestation that I personally performed the exam, history, and/or decision-making noted today, and, unless otherwise indicated, the interactions with patient, family, and staff as well as the review of records all occurred today. I also attest that the listed assessment and stated plan reflect my best clinical judgment today based on the combination of historical information, prior notes, and today's exam/ interactions. When time spent is documented, it refers only to time spent today by the signer, or if indicated, combined time spent today by collaborating physician/nurse practitioner. Soniya Elliott Sep 10, 2017 12:26
[2017-09-10] MEDS: POTASSIUM CHLOR 20 MEQ PREMIX 100 ML IV SCH ×2 (13:14→16:01)
--- NOTE | 2017-09-10 14:42 | HHI.GIFU ---
Subjective Remarks Patient is now on T bar at 40%, off sedation Abdomen less tympanic softer to palpation, active bowel sounds Light weight 4X4 dressing around PEG tube without any bleeding noted Still having low-grade fevers (Nandini Arzola) Objective Vitals I&O Vital Signs Date Time Temp Pulse Resp B/P (MAP) Pulse Ox O2 Delivery O2 Flow Rate FiO2 09/10/17 14:00 97 09/10/17 12:00 99.8 98 20 161/74 (103) 95 09/10/17 12:00 98 09/10/17 11:45 95 T-piece 35 09/10/17 10:00 96 09/10/17 08:15 35 09/10/17 08:15 98 35 09/10/17 08:00 35 09/10/17 08:00 90 09/10/17 08:00 101.5 100 20 115/67 (83) 96 09/10/17 07:00 98 Mechanical Ventilator 09/10/17 06:00 90 09/10/17 04:00 94 09/10/17 04:00 35 09/10/17 04:00 101.1 94 20 150/69 (96) 100 09/10/17 03:41 100 35 09/10/17 02:00 90 09/10/17 00:17 99 35 09/10/17 00:00 101.5 90 20 134/63 (86) 100 09/10/17 00:00 35 09/10/17 00:00 90 09/09/17 22:00 86 09/09/17 20:57 100 35 09/09/17 20:00 101.3 98 20 155/76 (102) 98 09/09/17 20:00 35 09/09/17 20:00 98 09/09/17 19:00 94 Mechanical Ventilator 35 09/09/17 18:00 94 09/09/17 16:00 101.5 94 20 124/67 (86) 94 09/09/17 16:00 90 09/09/17 16:00 35 09/09/17 15:41 97 35 I/O 09/09/17 09/09/17 09/09/17 09/10/17 09/10/17 09/10/17 07:00 15:00 23:00 07:00 15:00 23:00 Intake Total 1600 ml 1248 ml 550 ml Output Total 1850 ml 1800 ml 1500 ml Balance -250 ml -552 ml -950 ml Intake IV Total 636 ml 801 ml 550 ml Tube Feeding 664 ml 447 ml Other 300 ml Output Urine Total 1850 ml 1800 ml 1500 ml # Bowel Movements 2 2 1 Laboratory Laboratory Tests Test 09/09/17 18:10 09/10/17 05:10 09/10/17 13:00 Anti-Nuclear Antibody Screen NEG Hepatitis A IgM Antibody NEGATIVE Hepatitis B Surface Antigen NEGATIVE Hepatitis B Core IgM Antibody NEGATIVE Hepatitis C Antibody NEGATIVE Blood Urea Nitrogen 52 Creatinine 3.28 Random Glucose 167 Albumin 2.1 Calcium Level 8.4 Phosphorus Level 2.9 Sodium Level 145 Potassium Level 3.1 Chloride Level 106 Carbon Dioxide Level 26.2 Anion Gap 13 Estimat Glomerular Filtration Rate 25 Total Bilirubin 0.5 Direct Bilirubin 0.1 Indirect Bilirubin 0.4 Aspartate Amino Transf (AST/SGOT) 131 Alanine Aminotransferase (ALT/SGPT) 142 Alkaline Phosphatase 68 Total Protein 7.1 Magnesium Level 2.4 Date/Time Source Procedure Growth Status 08/31/17 06:05 Blood Peripheral Aerobic Blood Culture - Final NO GROWTH IN 5 DAYS Complete 08/31/17 06:05 Blood Peripheral Anaerobic Blood Culture - Final NO GROWTH IN 5 DAYS Complete 08/30/17 09:10 Sputum Endotracheal Gram Stain - Final Complete 08/30/17 09:10 Sputum Endotracheal Sputum Culture - Final MODERATE GROWTH NORMAL RESPIRATORY ESTELITA Complete 08/31/17 05:30 Urine Catheterized Urine Urine Culture - Final NO GROWTH IN 48 HOURS. Complete Imaging Last Impressions Abdomen X-Ray 09/10/17 0600 Signed Impressions: Service Date/Time: Sunday, September 10, 2017 03:56 - CONCLUSION: No significant abnormality is identified. There is mild distention of the colon but there are no findings to suggest bowel obstruction or significant ileus. Ignacio Underwood MD Head CT 09/08/17 0800 Signed Impressions: Service Date/Time: Friday, September 08, 2017 09:28 - CONCLUSION: 1. Continued maturation of the left thalamic and intraventricular hemorrhage. 2. Stable midline shift measuring 2 mm. 3. Pansinus disease. David Castaneda Jr., MD Chest X-Ray 09/08/17 0000 Signed Impressions: Service Date/Time: Friday, September 08, 2017 14:13 - CONCLUSION: Trach in good position, otherwise stable Kalen Reece MD FACR Liver Ultrasound 09/07/17 0000 Signed Impressions: Service Date/Time: Thursday, September 07, 2017 12:37 - CONCLUSION: 1. Unremarkable sonographic appearance of the liver. No evidence for hepatic volume loss or intrahepatic ductal dilatation. 2. No sonographic evidence for cholelithiasis or acute cholecystitis. 3. Mild increased right renal echogenicity may reflect medical renal disease. 4. Small bilateral pleural effusions. 5. Pancreas and inferior pole of the right kidney are obscured by bowel gas and therefore not evaluated. Darrell Robles MD Renal Ultrasound 08/31/17 0000 Signed Impressions: Service Date/Time: Thursday, August 31, 2017 17:42 - CONCLUSION: 1. No evidence of hydronephrosis on either side. 2. Solitary linear echogenic focus in the upper pole parenchyma of the right kidney has similar features to prior examination in January 2017 and possibly represents a calcification. David Snell MD Neck CTA [id number] Signed Impressions: Service Date/Time: Tuesday, August 29, 2017 00:13 - CONCLUSION: Negative carotid CTA. David Snell MD Head CTA 08/28/177 Signed Impressions: Service Date/Time: Tuesday, August 29, 2017 00:13 - CONCLUSION: 1. No evidence of vessel truncation or aneurysm. 2. No abnormal vessels in the region of the large left thalamic hemorrhage. David Snell MD Physical Exam HEENT: Normocephalic; atraumatic; no jaundice. Tongue edematous CHEST: Resp. even/unlabored. Diminished Trach with CPAP CARDIAC: RRR ABDOMEN: Tympanic, distended, bowel sounds present, hypoactive. PEG tube with small amount of old dried blood on drsg. Site without redness or swelling EXTREMITIES: Generalized edema SKIN: no rash; no jaundice. 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 S/P EGD with peg tube placement (09/06/17). He had bleeding noted from site on 09/07, Currently patient has lightweight 4 x 4 dressing on with no bleeding seen. Change dressing daily. noted on drsg. - Abdominal distention, ileus. On Miralax, Pericolace. Having loose stool. TF tolerated with trickle feeds over the past 24 hours, increased Glucerna 1.5- 40 cc an hour. If no high residuals may increase to 50-to 55 cc an hour and a.m.. Will have nutritional consult for goal rate Add Reglan at reduced dose. KUB performed on 09-10 shows mild distention of colon but no ileus/ resolved. - Left Thalamic and Intraventricular Hemorrhage. EEG shows severe encephalopathy. Patient is sedated on vent. - Elevated LFTs, etiology unclear, suspect hepatic congestion vs medications. Liver US (09/07/17)--> Unremarkable sonographic appearance of hte liver. No evidence for hepatic volume loss or intrahepatic ductal dilatation. No sonographic evidence for cholelithiasis or acute cholecystitis. Mild increased right renal echogenicity may reflect medical renal disease. Small bilateral pleural effusions. Pancreas and inferior pole of the right kidney are obscured by bowel gas and therefore not evaluated. hepatitis profile negative, DHIRAJ negative, AMA, ASMA. LFT follow labs - Angioedema, likely EMIL inhibitor. Has tracheostomy, lisinopril d/c'd s/p decadron/benadryl - AKF with electrolyte abnormalities - Resp. Failure. S/P Tracheostomy. Currently on T bar 40% PLAN: Tube feed - Glucerna 1.5 increased to 40 cc an hour, will check for high residuals, may increase to 50-55 cc an hour goal rate - Nutritional consult for follow-up on goal rate. - Reglan 5mg IV q8h - Cont. Miralax, Senokot - Monitor PEG tube site for bleeding, call GI for any issues - Monitor lft - SUpportive care to patient and family - Further recommendations to follow based on results of above Will follow the when necessary please call for any problems with peg tube or bleeding issues. - Patient seen and examined by Dr. Beverly and myself and this note is written on his behalf. (Nandini Arzola) Nandini Arzola Sep 10, 2017 14:42 Teresa Beverly MD Sep 10, 2017 19:29
--- NOTE | 2017-09-10 14:58 | HHI.CCPN ---
Subjective Remarks/Hospital Course Hospital Course: 46 y/o man with longstanding hypertension and previous CVA presents obtunded with new neurological symptoms noticed prior to arrival. Timeline unclear. Required intubation in ED for airway protection. CT head shows left thalamic bleed and shift away from bleed. Toxicology screen pending. Subjective: 08/30: encephalopathy persists. bp under better control, still on cardene. on sedation vacation, moves left side spontaneously but nothing on right. 08/31: overnight, severely agitated, requiring high dose sedation. also, lambert obstructed, new lambert placed with improvement in obstruction. this morning, RAFAELA with Cr up to 3. urine Na < 10, suggestive of pre-renal etiology. continued ivf. high peak pressures on vent. suction lavage with thick tenacious secretions. bronch with left lobe mucous plugging. bronchospasm a significant problem requiring iv magnesium and duonebs. finally attempted small paralytic dose with improvement in abdominal breathing and fighting ventilator. 09/01: No improvement in neuro exam, intermittent jerking movements noted by the RN no seizure. Creatinine for urine output adequate. I have consulted nephrology. We'll check CT of the head repeat EEG tomorrow a.m. 09/02: Clinically remains same. Did not tolerate sedation vacation, became hypertensive. CT head today showed slight improvement in L thalamic and IVH. Dr. Tinajero is the neurosurgeon, Dr. Jhaveri covering 09/03: Still unable to tolerate sedation vacation. Becomes very asynchronous with the vent with desaturations. Discussed with daughters about possible tracheostomy, they want to discuss with their mom, patient's ex -. Creatinine has worsened to 5.1 but no acute indication for dialysis. Will check ABG urine output 1.8 L in 24 hours 09/04: Remains intubated sedated synchronous with the vent. Noted to have tongue swelling/angioedema. Lisinopril discontinued. Placed on Decadron and IV Benadryl. Plan for tracheostomy and PEG tube placement next week 09/05: Patient remains intubated sedated critically ill. No change or improvement in neuro status. Lisinopril discontinued yesterday Decadron and Benadryl started tongue swelling is improved. Hyperglycemia secondary to Decadron, random blood sugar 360. Will wean to DC. Plan for trach and PEG this week, if family agreeable 09/06: Angioedema improving with Decadron and Benadryl. Still gets very agitated with sedation lightening. Needs improved blood pressure control increase clonidine to 0.3 every 8 hours. Plan for PEG today and Trach 09/08/1709/07: Stable overnight, except bleeding/oozing from the PEG site. We'll give single dose of nasal DDAVP. Creatinine slightly improved to 4.4, urine output 3.9 L in 24 hours. Plan for tracheostomy 09/08/17. 09/08: Tracheostomy completed. Tongue edema unchanged. 09/09: Tolerating spontaneous respiration on trach. Tongue edema persists. 09/10: Tolerating progression to trach collar today. Objective Vital Signs Date Time Temp Pulse Resp B/P (MAP) Pulse Ox O2 Delivery O2 Flow Rate FiO2 09/10/17 14:00 97 09/10/17 12:00 99.8 20 161/74 (103) 95 09/10/17 11:45 T-piece 35 Intake and Output 09/10/17 09/10/17 09/11/17 08:00 16:00 00:00 Intake Total 250 ml Output Total 1500 ml Balance -1250 ml Result Diagram: 09/08/17 0503 09/10/17 0510 Objective Remarks Gen: Sedated for vent compliance Head: Atraumatic. Conjunctivae clear. ENT: Tongue swollen/angioedema with laceration from bite, improving swelling Neck: Supple, trach site clean, dry. Lungs: Bilateral scattered rhonchi. Heart: Tachycardia, RR. Intermittently hypertensive. NL S1S2. Abdomen: Mildly distended, No guarding. PEG site clean. Extremities: Warm, well perfused. Neuro: RASS -1, tapering meds, moves LUE/LLE spontaneously, no movement on right. does not follow commands. w/d to pain left UE and bilateral LE. pupils equal, round A/P Problem List: (1) Intracranial hemorrhage ICD Code: I62.9 - Nontraumatic intracranial hemorrhage, unspecified Status: Acute (2) Hemorrhagic stroke ICD Code: I61.9 - Nontraumatic intracerebral hemorrhage, unspecified Status: Acute (3) Hypertensive emergency ICD Code: I10 - Hypertensive emergency Status: Acute Assessment and Plan Assessment: 46yM with left thalamic hypertensive hemorrhagic IPH, ICH score 2. remains off pathway, poor neurologic exam. continue tight bp control. frequent neuro checks. cannot SBT or extubate while encephalopathic and hypertensive. Completed trach and PEG this week Active Problems: Acute encephalopathy Left Thalamic Hemorrhage, with IV extension Intracerebral Hemorrhage, ICH score 2 Acute hypoxic and Hypercarbic Respiratory failure Hypertensive Emergency Ventilatory Dyssynchrony Agitated Delirium Acute kidney failure Angioedema most likely EMIL inhibitor induced Hyperglycemia Plan: - Unable to do sedation vacation due to severe ventilator synchrony and desaturation - Sedation vacation after trach, tentatively planned for 09/08/17. s/p PEG 09/06 - DDAVP nasal spray due to oozing from PEG site - Seroquel 100mg po q8hr for agitation. Clonidine 0.3 mg PO q8h - Haldol 5mg iv q4h prn for breakthrough agitation - oxycodone 10mg po q4h. Fentanyl, propofol. Very hypertensive on attempted sedation vacation - Scheduled Ativan 2mg po q8 09/05/17, to help reduce IV sedation, will reduce to 1mg q12 - Prn boluses of neuromuscular blockade if we cannot get control of vent synchrony. - CT head 09/02 improving left thalamic and intraventricular hemorrhage, EEG severe encephalopathy, repeat CT 09/08 - D/W Dr. Tinajero 09/01, frequent neuro checks - goal SBP < 150. Cardene/labetalol/hydralazine prn - Renal ultrasound, nephrology consult. Dr. Rachel has seen the patient no indication for emergency dialysis. Creat improved from 4.6 to 4.4, UO 3.9L in 24 hours - TF at goal, bowel regimen-change to Glucerna - hyperglycemia secondary to Decadron. Started Levemir 10 units every 12, continue sliding scale - Lisinopril discontinued. dc IV Decadron and dc Benadryl - SCDs. hold pharmacologic DVT prophylaxis given ICH. Lovenox cleared by Dr. Tinajero but will not start due to bleeding from PEG site and anticipated trach - Protonix. - Trach, PEG completed. Overall impression: Hypertensive emergency and thalamic bleed. Tolerating weaning trials and now on trach collar. Ready for transfer to rehab/SNF. Jack Farmer MD Sep 10, 2017 14:58
[2017-09-10] MEDS: ACETAMINOPHEN 325 MG TAB PO PRN (17:27)
[2017-09-10] MEDS: hydrALAZINE HCL 20 MG/ML VIAL IV PUSH PRN (17:28)
[2017-09-10] MEDS: ATORVASTATIN 40 MG TAB PO SCH (20:28)
[2017-09-10] MEDS: LABETALOL HCL 100 MG/20 ML VIAL IV PUSH PRN (20:28)
[2017-09-11] VITALS (14 sets, daily range): BP systolic 121–165; BP diastolic 61–92; PULSE 95–116; RESP 17–25; TEMP 100.4–101.8; O2SAT 95–98
[2017-09-11] MEDS: oxyCODONE HCL ORAL CONC 5 MG/0.25 ML SYRINGE PO SCH ×6 (00:22→20:03)
[2017-09-11] MEDS: INSULIN NovoLIN REGULAR SUPPLEMENTAL SCALE SQ SCH ×4 (00:22→17:41)
[2017-09-11] MEDS: CHLORHEXIDINE GLUCONATE 2 % 1 PACK (2 CLOTHS) TOP SCH (03:00)
[2017-09-11] MEDS: hydrALAZINE HCL 20 MG/ML VIAL IV PUSH PRN ×3 (03:16→20:00)
[2017-09-11] MEDS: RESP: ALBUTEROL 2.5 MG/IPRATROPIUM 0.5 MG NEB (SCH) NEB ×4 (03:20→20:05)
[2017-09-11 05:04] LABS: PHOSPHORUS 2.9 MG/DL (2.5-4.9)
[2017-09-11 05:06] LABS: CALCIUM 8.6 MG/DL (8.5-10.1); CREATININE 3.15 MG/DL (0.60-1.30)
[2017-09-11] MEDS: PROPRANOLOL HCL 10 MG TAB PO SCH ×3 (05:37→17:41)
[2017-09-11] MEDS: PIPERACIL-TAZO 2.25 GM PREMIX 50 ML IV SCH (05:37)
[2017-09-11] MEDS: ACETAMINOPHEN 325 MG TAB PO PRN ×2 (05:37→16:15)
[2017-09-11] MEDS: QUEtiapine FUMARATE 100 MG TAB PO SCH (05:37)
[2017-09-11] MEDS: cloNIDine HCL 0.3 MG TAB PO SCH ×3 (05:38→20:09)
[2017-09-11] MEDS: METOCLOPRAMIDE HCL 10 MG/2 ML VIAL IV PUSH SCH (06:00)
[2017-09-11] MEDS: fentaNYL DRIP 250 ML IV PRN (06:14)
[2017-09-11] MEDS: LORazepam 1 MG TAB PO SCH (07:00)
[2017-09-11] MEDS: CHLORHEXIDINE 0.12% (ORAL KIT) 15 ML CUP MT SCH ×2 (07:46→20:02)
[2017-09-11] MEDS: DOCUSATE SODIUM 50 MG/SENNA 8.6 MG TAB PO SCH ×2 (09:00→20:02)
[2017-09-11] MEDS: POLYETHYLENE GLYCOL 17 GM PKG PO SCH ×2 (09:00→20:02)
[2017-09-11] MEDS: PANTOPRAZOLE SODIUM 40 MG VIAL IV PUSH SCH (09:15)
[2017-09-11] MEDS: INSULIN DETEMIR 100 UNITS/ML VIAL SQ SCH ×2 (09:16→20:09)
[2017-09-11] MEDS: FLUTICASONE PROPIONATE 50 MCG/ACT 16 GM NASAL SPRAY EACH NARE SCH (09:18)
--- NOTE | 2017-09-11 10:33 | HHI.CCPN ---
Subjective Remarks/Hospital Course Hospital Course: 46 y/o man with longstanding hypertension and previous CVA presents obtunded with new neurological symptoms noticed prior to arrival. Timeline unclear. Required intubation in ED for airway protection. CT head shows left thalamic bleed and shift away from bleed. Toxicology screen pending. Subjective: 08/30: encephalopathy persists. bp under better control, still on cardene. on sedation vacation, moves left side spontaneously but nothing on right. 08/31: overnight, severely agitated, requiring high dose sedation. also, lambert obstructed, new lambert placed with improvement in obstruction. this morning, RAFAELA with Cr up to 3. urine Na < 10, suggestive of pre-renal etiology. continued ivf. high peak pressures on vent. suction lavage with thick tenacious secretions. bronch with left lobe mucous plugging. bronchospasm a significant problem requiring iv magnesium and duonebs. finally attempted small paralytic dose with improvement in abdominal breathing and fighting ventilator. 09/01: No improvement in neuro exam, intermittent jerking movements noted by the RN no seizure. Creatinine for urine output adequate. I have consulted nephrology. We'll check CT of the head repeat EEG tomorrow a.m. 09/02: Clinically remains same. Did not tolerate sedation vacation, became hypertensive. CT head today showed slight improvement in L thalamic and IVH. Dr. Tinajero is the neurosurgeon, Dr. Jhaevri covering 09/03: Still unable to tolerate sedation vacation. Becomes very asynchronous with the vent with desaturations. Discussed with daughters about possible tracheostomy, they want to discuss with their mom, patient's ex -. Creatinine has worsened to 5.1 but no acute indication for dialysis. Will check ABG urine output 1.8 L in 24 hours 09/04: Remains intubated sedated synchronous with the vent. Noted to have tongue swelling/angioedema. Lisinopril discontinued. Placed on Decadron and IV Benadryl. Plan for tracheostomy and PEG tube placement next week 09/05: Patient remains intubated sedated critically ill. No change or improvement in neuro status. Lisinopril discontinued yesterday Decadron and Benadryl started tongue swelling is improved. Hyperglycemia secondary to Decadron, random blood sugar 360. Will wean to DC. Plan for trach and PEG this week, if family agreeable 09/06: Angioedema improving with Decadron and Benadryl. Still gets very agitated with sedation lightening. Needs improved blood pressure control increase clonidine to 0.3 every 8 hours. Plan for PEG today and Trach 09/08/1709/07: Stable overnight, except bleeding/oozing from the PEG site. We'll give single dose of nasal DDAVP. Creatinine slightly improved to 4.4, urine output 3.9 L in 24 hours. Plan for tracheostomy 09/08/17. 09/08: Tracheostomy completed. Tongue edema unchanged. 09/09: Tolerating spontaneous respiration on trach. Tongue edema persists. 09/10: Tolerating progression to trach collar today. 09/11: t-piece x 24h. still not waking up and encephalopathic. however, not agitated. still hypertensive, tachycardic. will need placement. Cr continues to improve. still hypernatremic. Objective Vital Signs Date Time Temp Pulse Resp B/P (MAP) Pulse Ox O2 Delivery O2 Flow Rate FiO2 09/11/17 10:19 22 09/11/17 07:58 97 T-piece 35 09/11/17 06:00 114 09/11/17 04:00 100.4 146/86 (106) 09/10/17 20:52 6.00 Intake and Output 09/11/17 09/11/17 09/12/17 08:00 16:00 00:00 Intake Total 1298 ml Output Total 1550 ml Balance -252 ml Result Diagram: 09/08/17 0503 09/11/17 0413 Objective Remarks Gen: middle-aged male, lying in bed, encephalopathic. Head: Atraumatic. Conjunctivae clear. ENT: Tongue swollen/angioedema with laceration from bite, improving swelling Neck: Supple, trach site clean, dry. Lungs: tpiece. equal chest rise. Heart: Tachycardia, RR. Intermittently hypertensive. Abdomen: Mildly distended, No guarding. PEG site clean. Extremities: Warm, well perfused. Neuro: RASS -3, moves LUE/LLE spontaneously, no movement on right. does not follow commands. w/d to pain left UE and bilateral LE. pupils equal, round A/P Problem List: (1) Intracranial hemorrhage ICD Code: I62.9 - Nontraumatic intracranial hemorrhage, unspecified Status: Acute (2) Hemorrhagic stroke ICD Code: I61.9 - Nontraumatic intracerebral hemorrhage, unspecified Status: Acute (3) Hypertensive emergency ICD Code: I10 - Hypertensive emergency Status: Acute Assessment and Plan Assessment: 46yM with left thalamic hypertensive hemorrhagic IPH, ICH score 2. remains off pathway, poor neurologic exam. wean off all sedatives. work towards controlling delirium. needs placement, but funding issues will be a problem. Active Problems: Acute encephalopathy - persistent. Left Thalamic Hemorrhage, with IV extension Intracerebral Hemorrhage, ICH score 2 Acute hypoxic and Hypercarbic Respiratory failure - resolved. Hypertensive Emergency- resolved. Agitated Delirium - resolved. Acute kidney failure - resolving. Angioedema most likely EMIL inhibitor induced - resolving. Hyperglycemia Hypertension Hypernatremia Hypoactive delirium Plan: - d/c fentanyl, propofol - wean seroquel to 50 mg po q8hr with plan for taper. - decrease oxy to 5mg po q4h - add modafinil 200mg daily for wakefulness - d/c ativan - increase propranolol to 30mg po q6h - continue clonidine 0.3 mg tid - continue amlodipine - add free water 200mL per tube q6h - recheck daily sodium on bmp - continue lambert catheter given prior urinary obstruction and resolving rafaela - OOB to stretcher chair daily - PT consult - will talk with case management about placement. will be difficult without funding. - d/c zosyn. has completed full course for aspiration pneumonia. - increase levemir to 12 units SQ q12h - keep med scale q6h SSI - change to pepcid per tube - start sqh 5000 q12h (12 days post bleed, stable). - Trach, PEG completed. Fan Smith MD Sep 11, 2017 10:33
[2017-09-11] MEDS: FREE WATER G-TUBE SCH ×3 (12:00→20:02)
[2017-09-11] MEDS: QUEtiapine FUMARATE 25 MG TAB PO SCH ×2 (13:46→20:08)
[2017-09-11] MEDS: HALOPERIDOL LACTATE 5 MG/ML AMP IV PRN (14:18)
[2017-09-11] MEDS: MODAFINIL 200 MG TAB PO SCH (14:18)
--- NOTE | 2017-09-11 14:31 | HHI.NPPN ---
Subjective Renal Failure: Acute Additional Remarks Patient remain clinically same, unresponsive. Review of Systems General General Remarks unable to obtain Objective Data Data 09/11/17 09/12/17 19:00 07:00 Output Total 0 ml Balance 0 ml Tube Feeding Residual Discard 0 ml Vital Signs Date Time Temp Pulse Resp B/P (MAP) Pulse Ox O2 Delivery O2 Flow Rate FiO2 09/11/17 14:00 104 09/11/17 12:00 40 09/11/17 12:00 99 09/11/17 12:00 101.0 99 25 165/84 (111) 97 09/11/17 10:19 22 09/11/17 10:00 106 09/11/17 08:00 40 09/11/17 08:00 100.9 105 23 140/61 (87) 97 09/11/17 08:00 102 09/11/17 07:58 97 T-piece 35 09/11/17 07:00 98 T-Piece 40 09/11/17 06:00 114 09/11/17 04:00 40 09/11/17 04:00 116 09/11/17 04:00 100.4 116 20 146/86 (106) 97 09/11/17 02:00 106 09/11/17 00:00 40 09/11/17 00:00 100.6 108 17 121/70 (87) 95 09/11/17 00:00 102 09/10/17 22:00 102 09/10/17 20:52 97 T-piece 6.00 40 09/10/17 20:00 108 09/10/17 20:00 100 T-Piece 40 09/10/17 20:00 100.8 108 20 158/78 (104) 99 09/10/17 20:00 40 09/10/17 18:00 99 09/10/17 16:00 95 09/10/17 16:00 40 09/10/17 16:00 100.6 104 17 153/89 (110) 97 -: 09/08/17 0503 09/11/17 0413 Tubes & Lines: Coleman Tubes & Lines Comment PEG, trach Drip Comment fentanyl, propofol Physical Exam General Appearance: No Acute Distress Appearance Remarks unresponsive. Neck Neck Exam: Neck Supple Pulmonary Resp Exam: Clear Bilaterally, Breath Sounds Equal Cardiology CV Exam: Regular, Normal Sinus Rhythm Gastrointestinal/Abdomen GI Exam: Soft, Non-Tender, Bowel Sounds Present, Positive Bowel Movement, Distended Genitourinary Exam: Clear Urine Musculoskeletal MS Exam: Joints Intact, Normal Tone, Unable to Ambulate Extremeties Extremities Exam: Moderate Edema Neurologic Neuro Exam: Unresponsive, Sedated Assessment/Plan Discussed Condition With: Relative Assessment Summary: Hypertension Electrolyte Assessment: Hypokalemia Problem List: (1) Acute kidney injury ICD Codes: N17.9 - Acute kidney failure, unspecified Status: Acute Plan: Baseline creatinine around 2. He most likely has underlying CKD. RAFAELA most likely due to renal hypoperfusion resulting from normalization of BP. Improving renal function , awaiting repeat labs from today He has excellent urine output. Coleman is in place. Avoid IVF, nephrotoxic agents. Continue to replace potassium as needed. Off diuretics, urine out put is adequate. Creatinine is slowly improving. Has urine sediment, replace Coleman's catheter. (2) Hemorrhagic stroke ICD Codes: I61.9 - Nontraumatic intracerebral hemorrhage, unspecified Status: Acute Plan: Neurosurgery has followed, serial imaging reviewed. Non surgical management at this time. S/P PEG and tracheostomy Palliative is following, meaningful recovery is questionable. (3) Hypertension ICD Codes: I10 - Hypertension Status: Chronic Plan: BP improved. Continue oral medications. Monitor and titrate to effect. Daniel García MD Sep 11, 2017 14:31
[2017-09-11 15:11] LABS: SMOOTH MUSCLE TOTAL AUTOABS Negative (Negative)
--- NOTE | 2017-09-11 16:15 | HHI.GIFU ---
Subjective Remarks Random eye movement noted Peg tube properly working without any edema or bleeding noted Tube feeds tolerating fairly well, currently at 50 cc an hour Family in Still having fevers (Nandini Arzola) Objective Vitals I&O Vital Signs Date Time Temp Pulse Resp B/P (MAP) Pulse Ox O2 Delivery O2 Flow Rate FiO2 09/11/17 14:00 104 09/11/17 12:00 40 09/11/17 12:00 99 09/11/17 12:00 101.0 99 25 165/84 (111) 97 09/11/17 10:19 22 09/11/17 10:00 106 09/11/17 08:00 40 09/11/17 08:00 100.9 105 23 140/61 (87) 97 09/11/17 08:00 102 09/11/17 07:58 97 T-piece 35 09/11/17 07:00 98 T-Piece 40 09/11/17 06:00 114 09/11/17 04:00 40 09/11/17 04:00 116 09/11/17 04:00 100.4 116 20 146/86 (106) 97 09/11/17 02:00 106 09/11/17 00:00 40 09/11/17 00:00 100.6 108 17 121/70 (87) 95 09/11/17 00:00 102 09/10/17 22:00 102 09/10/17 20:52 97 T-piece 6.00 40 09/10/17 20:00 108 09/10/17 20:00 100 T-Piece 40 09/10/17 20:00 100.8 108 20 158/78 (104) 99 09/10/17 20:00 40 09/10/17 18:00 99 I/O 09/10/17 09/10/17 09/10/17 09/11/17 09/11/17 09/11/17 07:00 15:00 23:00 07:00 15:00 23:00 Intake Total 550 ml 964 ml 1347 ml Output Total 1500 ml 1690.0 ml 1550 ml 0 ml Balance -950 ml -726.0 ml -203 ml 0 ml Intake IV Total 550 ml 250 ml 749 ml Tube Feeding 714 ml 398 ml Other 200 ml Output Urine Total 1500 ml 1550 ml 1550 ml Stool Total 100 ml Gastric Drainage Total 40 ml Tube Feeding Residual Discard 0 ml 0 ml # Bowel Movements 1 2 Laboratory Laboratory Tests Test 09/11/17 04:13 Blood Urea Nitrogen 49 Creatinine 3.15 Random Glucose 231 Albumin 2.0 Calcium Level 8.6 Phosphorus Level 2.9 Sodium Level 146 Potassium Level 3.3 Chloride Level 107 Carbon Dioxide Level 30.0 Anion Gap 9 Estimat Glomerular Filtration Rate 26 Date/Time Source Procedure Growth Status 08/31/17 06:05 Blood Peripheral Aerobic Blood Culture - Final NO GROWTH IN 5 DAYS Complete 08/31/17 06:05 Blood Peripheral Anaerobic Blood Culture - Final NO GROWTH IN 5 DAYS Complete 08/30/17 09:10 Sputum Endotracheal Gram Stain - Final Complete 08/30/17 09:10 Sputum Endotracheal Sputum Culture - Final MODERATE GROWTH NORMAL RESPIRATORY ESTELITA Complete 08/31/17 05:30 Urine Catheterized Urine Urine Culture - Final NO GROWTH IN 48 HOURS. Complete Imaging Last Impressions Abdomen X-Ray 09/10/17 0600 Signed Impressions: Service Date/Time: Sunday, September 10, 2017 03:56 - CONCLUSION: No significant abnormality is identified. There is mild distention of the colon but there are no findings to suggest bowel obstruction or significant ileus. Ignacio Underwood MD Head CT 09/08/17 0800 Signed Impressions: Service Date/Time: Friday, September 08, 2017 09:28 - CONCLUSION: 1. Continued maturation of the left thalamic and intraventricular hemorrhage. 2. Stable midline shift measuring 2 mm. 3. Pansinus disease. David Castaneda Jr., MD Chest X-Ray 09/08/17 0000 Signed Impressions: Service Date/Time: Friday, September 08, 2017 14:13 - CONCLUSION: Trach in good position, otherwise stable Kalen Reece MD FACR Liver Ultrasound 09/07/17 0000 Signed Impressions: Service Date/Time: Thursday, September 07, 2017 12:37 - CONCLUSION: 1. Unremarkable sonographic appearance of the liver. No evidence for hepatic volume loss or intrahepatic ductal dilatation. 2. No sonographic evidence for cholelithiasis or acute cholecystitis. 3. Mild increased right renal echogenicity may reflect medical renal disease. 4. Small bilateral pleural effusions. 5. Pancreas and inferior pole of the right kidney are obscured by bowel gas and therefore not evaluated. Darrell Robles MD Renal Ultrasound 08/31/17 0000 Signed Impressions: Service Date/Time: Thursday, August 31, 2017 17:42 - CONCLUSION: 1. No evidence of hydronephrosis on either side. 2. Solitary linear echogenic focus in the upper pole parenchyma of the right kidney has similar features to prior examination in January 2017 and possibly represents a calcification. David Snell MD Neck CTA 08/28/17 2347 Signed Impressions: Service Date/Time: Tuesday, August 29, 2017 00:13 - CONCLUSION: Negative carotid CTA. David Snell MD Head CTA 08/28/17 2347 Signed Impressions: Service Date/Time: Tuesday, August 29, 2017 00:13 - CONCLUSION: 1. No evidence of vessel truncation or aneurysm. 2. No abnormal vessels in the region of the large left thalamic hemorrhage. David Snell MD Physical Exam HEENT: Normocephalic; atraumatic; Tongue edematous , dry, mild improvement in the past 48 hours CHEST: Resp. even/unlabored. Diminished Trach, T tube CARDIAC: RRR ABDOMEN: Mildly distended, bowel sounds active 4 quadrants. PEG tube dressing clean dry and intact, no active bleeding noted. Residuals between 40 and 100 cc over the past 24 hours EXTREMITIES: Generalized edema, SKIN: no rash; no jaundice. 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 S/P EGD with peg tube placement (09/06/17). He had bleeding noted from site on 09/07, but has resolved Change dressing daily. - Abdominal distention, ileus. On Miralax, Pericolace. Patient having only 1- 2 stools a day, no active bleeding, soft TF tolerated 40 cc an hour over the past 24 hours, increased to 50 cc an hour today goal rate 55. Glucerna 1.5-40 cc an hour. If no high residuals may increase to 50-to 55 cc an hour and a.m.. nutritional consult for goal rate Add Reglan at reduced dose. KUB performed on 09-10 shows mild distention of colon but no ileus/ resolved. - Left Thalamic and Intraventricular Hemorrhage.encephalopathy, mild improvement. - Elevated LFTs, etiology unclear, suspect hepatic congestion vs medications. Liver US (09/07/17)--> Unremarkable sonographic appearance of hte liver. No evidence for hepatic volume loss or intrahepatic ductal dilatation. No sonographic evidence for cholelithiasis or acute cholecystitis. Mild increased right renal echogenicity may reflect medical renal disease. Pancreas and inferior pole of the right kidney are obscured by bowel gas and therefore not evaluated. hepatitis profile negative, DHIRAJ negative. - Angioedema, likely EMIL inhibitor. Has tracheostomy, lisinopril d/c'd s/p decadron/benadryl - AKF with electrolyte abnormalities, with some resolving - Resp. Failure. S/P Tracheostomy. Currently on T bar, O2 weaning PLAN: Tube feed - Glucerna 1.5 increased to 40 cc an hour, will check for high residuals, may increase to 50-55 cc an hour goal rate - Nutritional consult for follow-up on goal rate. - Reglan 5mg IV q8h - Cont. Miralax, Senokot, if needed for bowel regimen, stools 2 on 09-11, no active blood seen - Monitor PEG tube site for bleeding, call GI for any issues - Monitor labs, LFTs as warranted - SUpportive care to patient and family - Further recommendations to follow based on results of above Will follow the when necessary please call for any problems with peg tube or bleeding issues. If patient continues to tolerate tube feeds, GI will see as needed - Patient seen and examined by Dr. Beverly and myself and this note is written on his behalf. (Nandini Arzola) Nandini Arzola Sep 11, 2017 16:15 Teresa Beverly MD Sep 11, 2017 18:13
[2017-09-11] MEDS: LABETALOL HCL 100 MG/20 ML VIAL IV PUSH PRN ×2 (16:55→22:20)
[2017-09-11] MEDS: ATORVASTATIN 40 MG TAB PO SCH (20:02)
[2017-09-11] MEDS: FAMOTIDINE 20 MG TAB NG SCH (20:02)
[2017-09-11] MEDS: HEPARIN SODIUM - SQ 10,000 UNITS/ML VIAL SQ SCH (20:03)
[2017-09-12] VITALS (16 sets, daily range): BP systolic 147–189; BP diastolic 82–107; PULSE 91–125; RESP 18–30; TEMP 100.8–103.2; O2SAT 92–98
[2017-09-12] MEDS: PROPRANOLOL HCL 10 MG TAB PO SCH ×5 (00:37→23:04)
[2017-09-12] MEDS: LABETALOL HCL 100 MG/20 ML VIAL IV PUSH PRN (00:37)
[2017-09-12] MEDS: oxyCODONE HCL ORAL CONC 5 MG/0.25 ML SYRINGE PO SCH ×6 (00:37→20:46)
[2017-09-12] MEDS: RESP: ALBUTEROL 2.5 MG/IPRATROPIUM 0.5 MG NEB (PRN) INH (00:56)
[2017-09-12] MEDS: hydrALAZINE HCL 20 MG/ML VIAL IV PUSH PRN ×2 (02:01→21:13)
[2017-09-12] MEDS: INSULIN NovoLIN REGULAR SUPPLEMENTAL SCALE SQ SCH ×4 (02:01→17:44)
[2017-09-12] MEDS: FREE WATER G-TUBE SCH ×7 (04:00→23:17)
[2017-09-12] MEDS: CHLORHEXIDINE GLUCONATE 2 % 1 PACK (2 CLOTHS) TOP SCH (04:00)
[2017-09-12] MEDS: cloNIDine HCL 0.3 MG TAB PO SCH ×3 (04:15→21:14)
[2017-09-12] MEDS: QUEtiapine FUMARATE 25 MG TAB PO SCH ×3 (04:16→21:37)
[2017-09-12] MEDS: RESP: ALBUTEROL 2.5 MG/IPRATROPIUM 0.5 MG NEB (SCH) NEB ×3 (04:37→15:34)
[2017-09-12 06:30] LABS: HEMATOCRIT 32.4 % (39.0-51.0); MEAN CELL VOLUME 83.2 FL (80.0-100.0); MEAN CORPUSCULAR HEMOGLOBIN 25.7 PG (27.0-34.0); MEAN CORPUSCULAR HGB CONC 30.9 % (32.0-36.0); MEAN PLATELET VOLUME 9.6 FL (7.0-11.0); PLATELET COUNT 324 TH/MM3 (150-450); WHITE BLOOD COUNT 15.6 TH/MM3 (4.0-11.0)
[2017-09-12 07:00] LABS: BICARBONATE 32.2 MEQ/L (21.0-32.0); CALCIUM 8.6 MG/DL (8.5-10.1); CREATININE 2.88 MG/DL (0.60-1.30)
[2017-09-12 07:12] LABS: AMORPHOUS SEDIMENT, URINE RARE; BACTERIA, URINE FEW /hpf; BILIRUBIN, URINE NEG (NEG); BLOOD, URINE MOD (NEG); GLUCOSE,URINE 300 mg/dL (NEG); HYALINE CAST, URINE 1 /lpf (RARE); KETONE, URINE NEG (NEG); MUCUS URINE FEW /lpf (OCC); NITRITE,URINE NEG (NEG); PH, URINE 6.5 (5.0-8.5); SQUAMOUS EPITHELIAL CELL URINE 1 /hpf (0-5); TRANSITIONAL EPI CELLS, URINE <1 /hpf; URINE COLOR YELLOW (YELLW/STRAW); URINE LEUKOCYTE ESTERASE NEG (NEG)
[2017-09-12] MEDS: CHLORHEXIDINE 0.12% (ORAL KIT) 15 ML CUP MT SCH ×2 (08:00→20:47)
[2017-09-12] MEDS: POLYETHYLENE GLYCOL 17 GM PKG PO SCH ×2 (09:00→21:00)
[2017-09-12] MEDS: DOCUSATE SODIUM 50 MG/SENNA 8.6 MG TAB PO SCH ×2 (09:00→20:46)
[2017-09-12] MEDS: HEPARIN SODIUM - SQ 10,000 UNITS/ML VIAL SQ SCH ×2 (09:06→21:15)
[2017-09-12] MEDS: FAMOTIDINE 20 MG TAB NG SCH ×2 (09:06→21:13)
[2017-09-12] MEDS: MODAFINIL 200 MG TAB PO SCH (09:07)
[2017-09-12] MEDS: FLUTICASONE PROPIONATE 50 MCG/ACT 16 GM NASAL SPRAY EACH NARE SCH (09:07)
[2017-09-12] MEDS: INSULIN DETEMIR 100 UNITS/ML VIAL SQ SCH ×2 (09:29→21:38)
[2017-09-12] MEDS: HALOPERIDOL LACTATE 5 MG/ML AMP IV PRN ×2 (11:51→23:04)
--- NOTE | 2017-09-12 12:21 | HHI.NPPN ---
Subjective Renal Failure: Acute Additional Remarks Patient remain unresponsive, with the T-Piece. Review of Systems General General Remarks unable to obtain Objective Data Data Vital Signs Date Time Temp Pulse Resp B/P (MAP) Pulse Ox O2 Delivery O2 Flow Rate FiO2 09/12/17 12:00 95 09/12/17 12:00 101.2 96 19 165/84 (111) 92 09/12/17 10:00 98 09/12/17 08:00 101.0 95 18 147/82 (103) 96 09/12/17 08:00 95 09/12/17 07:37 95 T-piece 28 09/12/17 07:00 100 T-Piece 28 09/12/17 06:00 93 09/12/17 05:16 16 09/12/17 04:00 100.8 100 19 183/92 (122) 98 09/12/17 04:00 100 09/12/17 02:00 103 09/12/17 00:00 106 09/12/17 00:00 100.9 101 21 173/94 (120) 98 09/11/17 22:00 106 09/11/17 20:09 97 T-piece 6.00 35 09/11/17 20:00 106 09/11/17 20:00 101.8 106 21 165/92 (116) 98 09/11/17 19:00 T-Piece 40 09/11/17 18:00 95 09/11/17 16:00 101.7 101 24 161/84 (109) 97 09/11/17 16:00 110 09/11/17 14:00 104 -: 09/12/17 0608 09/12/17 0608 Microbiology 09/12/17 MRSA Surveillance Culture, Received Pending 09/12/17 Gram Stain, Received Pending 09/12/17 Sputum Culture, Received Pending 09/12/17 Urine Culture, Received Pending Tubes & Lines: Coleman Tubes & Lines Comment PEG, trach Drip Comment fentanyl, propofol Physical Exam General Appearance: No Acute Distress Appearance Remarks unresponsive. Neck Neck Exam: Neck Supple Pulmonary Resp Exam: Clear Bilaterally, Breath Sounds Equal Cardiology CV Exam: Regular, Normal Sinus Rhythm Gastrointestinal/Abdomen GI Exam: Soft, Non-Tender, Bowel Sounds Present, Positive Bowel Movement, Distended Genitourinary Exam: Clear Urine Musculoskeletal MS Exam: Joints Intact, Normal Tone, Unable to Ambulate Extremeties Extremities Exam: Moderate Edema Neurologic Neuro Exam: Unresponsive, Sedated Assessment/Plan Discussed Condition With: Relative Assessment Summary: Hypertension Electrolyte Assessment: Hypokalemia Problem List: (1) Acute kidney injury ICD Codes: N17.9 - Acute kidney failure, unspecified Status: Acute Plan: Baseline creatinine around 2. He most likely has underlying CKD. RAFAELA most likely due to renal hypoperfusion resulting from normalization of BP. Improving renal function , awaiting repeat labs from today He has excellent urine output. Coleman is in place. Avoid IVF, nephrotoxic agents. Continue to replace potassium as needed. Off diuretics, urine out put is adequate. Creatinine is slowly improving, now 2.2. Spiking fever, urine culture done. Has chronic kidney disease. (2) Hemorrhagic stroke ICD Codes: I61.9 - Nontraumatic intracerebral hemorrhage, unspecified Status: Acute Plan: Neurosurgery has followed, serial imaging reviewed. Non surgical management at this time. S/P PEG and tracheostomy Palliative is following, meaningful recovery is questionable. (3) Hypertension ICD Codes: I10 - Hypertension Status: Chronic Plan: BP improved. Continue oral medications. Monitor and titrate to effect. Daniel García MD Sep 12, 2017 12:21
[2017-09-12] MEDS: MORPHINE SULFATE 4 MG/ML INJ IV PUSH PRN ×2 (19:01→21:38)
[2017-09-12] MEDS: ATORVASTATIN 40 MG TAB PO SCH (20:46)
[2017-09-12] MEDS: ACETAMINOPHEN 325 MG TAB PO PRN (20:46)
[2017-09-13] VITALS (21 sets, daily range): BP systolic 115–222; BP diastolic 58–121; PULSE 82–120; RESP 16–26; TEMP 101.2–104.8; O2SAT 97–100
--- NOTE | 2017-09-13 00:10 | RADRPT ---
EXAM DATE/TIME: 09/12/2017 23:39 [facility] COMPARISON: CHEST SINGLE AP, September 08, 2017, 14:13. INDICATIONS : Shortness of breath MEDICAL HISTORY : Stroke. Hypertension Cardiovascular disease. SURGICAL HISTORY : None. ENCOUNTER: Subsequent ACUITY: 1 week PAIN SCORE: Non-responsive. LOCATION: Bilateral chest FINDINGS: A single view of the chest demonstrates the lungs to be symmetrically aerated without evidence of mas s, infiltrate or effusion. The cardiomediastinal contours are unremarkable. The tracheostomy tube r emains in place. Overlying electrocardiogram leads. Osseous structures are intact. CONCLUSION: No acute disease. Angelo Conn MD on September 13, 2017 at 0:08 Board Certified Radiologist. This report was verified electronically.
[2017-09-13] MEDS: hydrALAZINE HCL 20 MG/ML VIAL IV PUSH PRN ×3 (00:11→02:16)
[2017-09-13] MEDS: oxyCODONE HCL ORAL CONC 5 MG/0.25 ML SYRINGE PO SCH ×7 (00:12→23:48)
[2017-09-13] MEDS: LABETALOL HCL 100 MG/20 ML VIAL IV PUSH PRN ×3 (00:26→02:45)
[2017-09-13] MEDS: MORPHINE SULFATE 4 MG/ML INJ IV PUSH PRN (00:32)
[2017-09-13] MEDS: INSULIN NovoLIN REGULAR SUPPLEMENTAL SCALE SQ SCH ×5 (00:32→23:48)
[2017-09-13 01:59] LABS: HEMATOCRIT 34.2 % (39.0-51.0); HEMOGLOBIN 11.1 GM/DL (13.0-17.0); MEAN CELL VOLUME 82.9 FL (80.0-100.0); MEAN CORPUSCULAR HEMOGLOBIN 26.9 PG (27.0-34.0); MEAN CORPUSCULAR HGB CONC 32.5 % (32.0-36.0); MEAN PLATELET VOLUME 10.4 FL (7.0-11.0); PLATELET COUNT 359 TH/MM3 (150-450); RED BLOOD COUNT 4.13 MIL/MM3 (4.50-5.90); WHITE BLOOD COUNT 23.3 TH/MM3 (4.0-11.0)
[2017-09-13 02:14] LABS: BICARBONATE 33.9 MEQ/L (21.0-32.0); CALCIUM 8.9 MG/DL (8.5-10.1); CREATININE 2.85 MG/DL (0.60-1.30)
[2017-09-13] MEDS: ACETAMINOPHEN 325 MG TAB PO PRN ×3 (02:16→17:31)
[2017-09-13] MEDS ORDERED: Vancomycin Consult Pharmacy 1 EA OTHER SCH (02:45)
[2017-09-13] MEDS ORDERED: LORazepam 2 MG/ML VIAL IV PUSH ONE (02:45)
[2017-09-13] MEDS: niCARdipine INJ 25 MG in SODIUM CHLOR 0.9% 250 ML INJ 240 ML IV PRN ×3 (02:56→10:51)
[2017-09-13] MEDS ORDERED: DANTROLENE SODIUM 20 MG VIAL IV ONE (03:00)
[2017-09-13 03:13] LABS: ALBUMIN 2.2 GM/DL (3.4-5.0); DIRECT BILIRUBIN ADULT 0.2 MG/DL (0.0-0.2)
[2017-09-13 03:14] LABS: INDIRECT BILIRUBIN 0.3 MG/DL (0.0-0.8); TOTAL BILIRUBIN ADULT 0.5 MG/DL (0.2-1.0); TOTAL PROTEIN 7.8 GM/DL (6.4-8.2)
[2017-09-13] MEDS: FREE WATER G-TUBE SCH ×6 (04:00→23:47)
[2017-09-13] MEDS: CHLORHEXIDINE GLUCONATE 2 % 1 PACK (2 CLOTHS) TOP SCH (04:00)
[2017-09-13] MEDS ORDERED: VANCOMYCIN INJ 2,000 MG in SODIUM CHLORID 0.9% 500 ML INJ 500 ML IV ONE (04:00)
[2017-09-13] MEDS: PIPERACIL-TAZO 2.25 GM PREMIX 50 ML IV SCH ×4 (04:14→21:00)
[2017-09-13] MEDS: PROPRANOLOL HCL 10 MG TAB PO SCH ×4 (05:07→23:48)
[2017-09-13] MEDS: cloNIDine HCL 0.3 MG TAB PO SCH ×3 (05:07→20:21)
[2017-09-13] MEDS: RESP: ALBUTEROL 2.5 MG/IPRATROPIUM 0.5 MG NEB (PRN) INH (07:20)
--- NOTE | 2017-09-13 07:32 | HHI.CCPN ---
Subjective Remarks/Hospital Course Hospital Course: 46 y/o man with longstanding hypertension and previous CVA presents obtunded with new neurological symptoms noticed prior to arrival. Timeline unclear. Required intubation in ED for airway protection. CT head shows left thalamic bleed and shift away from bleed. Toxicology screen pending. Subjective: 08/30: encephalopathy persists. bp under better control, still on cardene. on sedation vacation, moves left side spontaneously but nothing on right. 08/31: overnight, severely agitated, requiring high dose sedation. also, lambert obstructed, new lambert placed with improvement in obstruction. this morning, RAFAELA with Cr up to 3. urine Na < 10, suggestive of pre-renal etiology. continued ivf. high peak pressures on vent. suction lavage with thick tenacious secretions. bronch with left lobe mucous plugging. bronchospasm a significant problem requiring iv magnesium and duonebs. finally attempted small paralytic dose with improvement in abdominal breathing and fighting ventilator. 09/01: No improvement in neuro exam, intermittent jerking movements noted by the RN no seizure. Creatinine for urine output adequate. I have consulted nephrology. We'll check CT of the head repeat EEG tomorrow a.m. 09/02: Clinically remains same. Did not tolerate sedation vacation, became hypertensive. CT head today showed slight improvement in L thalamic and IVH. Dr. Tinajero is the neurosurgeon, Dr. Jhaveri covering 09/03: Still unable to tolerate sedation vacation. Becomes very asynchronous with the vent with desaturations. Discussed with daughters about possible tracheostomy, they want to discuss with their mom, patient's ex -. Creatinine has worsened to 5.1 but no acute indication for dialysis. Will check ABG urine output 1.8 L in 24 hours 09/04: Remains intubated sedated synchronous with the vent. Noted to have tongue swelling/angioedema. Lisinopril discontinued. Placed on Decadron and IV Benadryl. Plan for tracheostomy and PEG tube placement next week 09/05: Patient remains intubated sedated critically ill. No change or improvement in neuro status. Lisinopril discontinued yesterday Decadron and Benadryl started tongue swelling is improved. Hyperglycemia secondary to Decadron, random blood sugar 360. Will wean to DC. Plan for trach and PEG this week, if family agreeable 09/06: Angioedema improving with Decadron and Benadryl. Still gets very agitated with sedation lightening. Needs improved blood pressure control increase clonidine to 0.3 every 8 hours. Plan for PEG today and Trach 09/08/1709/07: Stable overnight, except bleeding/oozing from the PEG site. We'll give single dose of nasal DDAVP. Creatinine slightly improved to 4.4, urine output 3.9 L in 24 hours. Plan for tracheostomy 09/08/17. 09/08: Tracheostomy completed. Tongue edema unchanged. 09/09: Tolerating spontaneous respiration on trach. Tongue edema persists. 09/10: Tolerating progression to trach collar today. 09/11: t-piece x 24h. still not waking up and encephalopathic. however, not agitated. still hypertensive, tachycardic. will need placement. Cr continues to improve. still hypernatremic. 09/12: delayed note entry. seen around 1300 on 09/12. wbc slightly up, fever curve uptrending, but has history of fevers likely from thalamic stroke. sputum , urine cultures sent at 0600. will await these results before deciding further courses of action. still on t-piece and no overall clinical change. Objective Vital Signs Date Time Temp Pulse Resp B/P (MAP) Pulse Ox O2 Delivery O2 Flow Rate FiO2 09/13/17 06:03 96 130/59 09/13/17 04:02 97 40 09/13/17 04:00 102.3 20 09/12/17 20:52 T-piece 09/11/17 20:09 6.00 Intake and Output 09/13/17 09/13/17 09/14/17 08:00 16:00 00:00 Intake Total 1491 ml Output Total 1450 ml Balance 41 ml Result Diagram: 09/13/1713409/13/17134 Objective Remarks Gen: middle-aged male, lying in bed, encephalopathic. Head: Atraumatic. Conjunctivae clear. ENT: Tongue swollen/angioedema with laceration from bite, improving swelling Neck: Supple, trach site clean, dry. Lungs: tpiece. equal chest rise. Heart: Tachycardia, RR. Intermittently hypertensive. Abdomen: Mildly distended, No guarding. PEG site clean. Extremities: Warm, well perfused. Neuro: RASS -3, moves LUE/LLE spontaneously, no movement on right. does not follow commands. w/d to pain left UE and bilateral LE. pupils equal, round A/P Problem List: (1) Intracranial hemorrhage ICD Code: I62.9 - Nontraumatic intracranial hemorrhage, unspecified Status: Acute (2) Hemorrhagic stroke ICD Code: I61.9 - Nontraumatic intracerebral hemorrhage, unspecified Status: Acute (3) Hypertensive emergency ICD Code: I10 - Hypertensive emergency Status: Acute Assessment and Plan Assessment: 46yM with left thalamic hypertensive hemorrhagic IPH, ICH score 2. remains off pathway, poor neurologic exam. wean off all sedatives. work towards controlling delirium. needs placement, but funding issues will be a problem. has history of fevers, likely secondary to thalamic bleed, but with rising wbc, will check cultures. if clinically declines, would start empiric abx. Active Problems: Acute encephalopathy - persistent. Left Thalamic Hemorrhage, with IV extension Intracerebral Hemorrhage, ICH score 2 Acute hypoxic and Hypercarbic Respiratory failure - resolved. Hypertensive Emergency- resolved. Agitated Delirium - resolved. Acute kidney failure - resolving. Angioedema most likely EMIL inhibitor induced - resolving. Hyperglycemia Hypertension Hypernatremia Hypoactive delirium Plan: - weaning seroquel to 50 mg po q8hr with plan for taper. - weaning oxy to 5mg po q4h - modafinil 200mg daily for wakefulness - propranolol to 30mg po q6h - continue clonidine 0.3 mg tid - continue amlodipine - free water 200mL per tube q6h - recheck daily sodium on bmp - continue lambert catheter given prior urinary obstruction and resolving rafaela - OOB to stretcher chair daily - PT consult - will talk with case management about placement. will be difficult without funding. - levemir to 12 units SQ q12h - keep med scale q6h SSI - pepcid per tube - sqh 5000 q12h (12 days post bleed, stable). - Trach, PEG completed. Fan Smith MD Sep 13, 2017 07:32
[2017-09-13] MEDS: CHLORHEXIDINE 0.12% (ORAL KIT) 15 ML CUP MT SCH ×2 (08:00→20:00)
[2017-09-13] MEDS: FLUTICASONE PROPIONATE 50 MCG/ACT 16 GM NASAL SPRAY EACH NARE SCH (08:01)
[2017-09-13] MEDS: FAMOTIDINE 20 MG TAB NG SCH ×2 (08:01→20:20)
[2017-09-13] MEDS: POLYETHYLENE GLYCOL 17 GM PKG PO SCH ×2 (08:06→20:21)
[2017-09-13] MEDS: HEPARIN SODIUM - SQ 10,000 UNITS/ML VIAL SQ SCH ×2 (08:06→20:20)
[2017-09-13] MEDS: DOCUSATE SODIUM 50 MG/SENNA 8.6 MG TAB PO SCH ×2 (08:06→20:20)
--- NOTE | 2017-09-13 08:06 | HHI.CCPN ---
Subjective Remarks/Hospital Course Hospital Course: 46 y/o man with longstanding hypertension and previous CVA presents obtunded with new neurological symptoms noticed prior to arrival. Timeline unclear. Required intubation in ED for airway protection. CT head shows left thalamic bleed and shift away from bleed. Toxicology screen pending. Subjective: 08/30: encephalopathy persists. bp under better control, still on cardene. on sedation vacation, moves left side spontaneously but nothing on right. 08/31: overnight, severely agitated, requiring high dose sedation. also, lambert obstructed, new lambert placed with improvement in obstruction. this morning, RAFAELA with Cr up to 3. urine Na < 10, suggestive of pre-renal etiology. continued ivf. high peak pressures on vent. suction lavage with thick tenacious secretions. bronch with left lobe mucous plugging. bronchospasm a significant problem requiring iv magnesium and duonebs. finally attempted small paralytic dose with improvement in abdominal breathing and fighting ventilator. 09/01: No improvement in neuro exam, intermittent jerking movements noted by the RN no seizure. Creatinine for urine output adequate. I have consulted nephrology. We'll check CT of the head repeat EEG tomorrow a.m. 09/02: Clinically remains same. Did not tolerate sedation vacation, became hypertensive. CT head today showed slight improvement in L thalamic and IVH. Dr. Tinajero is the neurosurgeon, Dr. Jhaveri covering 09/03: Still unable to tolerate sedation vacation. Becomes very asynchronous with the vent with desaturations. Discussed with daughters about possible tracheostomy, they want to discuss with their mom, patient's ex -. Creatinine has worsened to 5.1 but no acute indication for dialysis. Will check ABG urine output 1.8 L in 24 hours 09/04: Remains intubated sedated synchronous with the vent. Noted to have tongue swelling/angioedema. Lisinopril discontinued. Placed on Decadron and IV Benadryl. Plan for tracheostomy and PEG tube placement next week 09/05: Patient remains intubated sedated critically ill. No change or improvement in neuro status. Lisinopril discontinued yesterday Decadron and Benadryl started tongue swelling is improved. Hyperglycemia secondary to Decadron, random blood sugar 360. Will wean to DC. Plan for trach and PEG this week, if family agreeable 09/06: Angioedema improving with Decadron and Benadryl. Still gets very agitated with sedation lightening. Needs improved blood pressure control increase clonidine to 0.3 every 8 hours. Plan for PEG today and Trach 09/08/1709/07: Stable overnight, except bleeding/oozing from the PEG site. We'll give single dose of nasal DDAVP. Creatinine slightly improved to 4.4, urine output 3.9 L in 24 hours. Plan for tracheostomy 09/08/17. 09/08: Tracheostomy completed. Tongue edema unchanged. 09/09: Tolerating spontaneous respiration on trach. Tongue edema persists. 09/10: Tolerating progression to trach collar today. 09/11: t-piece x 24h. still not waking up and encephalopathic. however, not agitated. still hypertensive, tachycardic. will need placement. Cr continues to improve. still hypernatremic. 09/12: delayed note entry. seen around 1300 on 09/12. wbc slightly up, fever curve uptrending, but has history of fevers likely from thalamic stroke. sputum , urine cultures sent at 0600. will await these results before deciding further courses of action. still on t-piece and no overall clinical change. 09/13: Overnight events noted, febrile to 105, with tremor, clonus, rigidity. given dantrolene for possible NMS by Dr. Asif and stopped Haldol and Seroquel. Provigil also stop due to possibility of serotonin syndrome. Patient was started on Zosyn and vancomycin and panculture sent, and placed on full vent support due to tachypnea. Temp came down to 101 (his baseline) after dantrolene one dose. On my exam at this time patient does not have a rigidity and blood temperatures 101. Nursing staff reports thick yellow secretions, chest x-ray shows possible left lower lobe infiltrate. WBC increased from 15.5 to 23.3. I will get the CT of the chest to evaluate for lung infiltrate and also CT abdomen and pelvis to rule out any intra-abdominal source of sepsis. Hold off on Ativan at this time. Patient is also getting a CT of the head Objective Vital Signs Date Time Temp Pulse Resp B/P (MAP) Pulse Ox O2 Delivery O2 Flow Rate FiO2 09/13/17 07:26 100 40 09/13/17 07:26 Ventilator 09/13/17 06:03 96 130/59 09/13/17 04:00 102.3 20 09/11/17 20:09 6.00 Intake and Output 09/13/17 09/13/17 09/14/17 08:00 16:00 00:00 Intake Total 2011 ml Output Total 1450 ml Balance 561 ml Result Diagram: 09/13/17 0135 09/13/17134 Objective Remarks Gen: middle-aged male, lying in bed, encephalopathic, now on ventilator support support. Tachypneic labored breathing on the ventilator Head: Atraumatic. Conjunctivae clear. ENT: Tongue swollen/angioedema with laceration from bite, improving swelling Neck: Supple, trach site clean, dry. Lungs: PRVC/AC, tachypneic. equal chest rise. Coarse rhonchi and crackles bilaterally Heart: Tachycardia, RR. Intermittently hypertensive. Abdomen: Mildly distended. PEG site clean. Extremities: Warm, well perfused. Neuro: RASS -3, moves LUE/LLE spontaneously, slight movement on right. does not follow commands. w/d to pain left UE and bilateral LE. pupils equal, round A/P Problem List: (1) Intracranial hemorrhage ICD Code: I62.9 - Nontraumatic intracranial hemorrhage, unspecified Status: Acute (2) Hemorrhagic stroke ICD Code: I61.9 - Nontraumatic intracerebral hemorrhage, unspecified Status: Acute (3) Hypertensive emergency ICD Code: I10 - Hypertensive emergency Status: Acute Assessment and Plan Assessment: 46yM with left thalamic hypertensive hemorrhagic IPH, ICH score 2. remains off pathway, poor neurologic exam. wean off all sedatives. work towards controlling delirium. needs placement, but funding issues will be a problem. has history of fevers, likely secondary to thalamic bleed, but with rising wbc, will check cultures. if clinically declines, would start empiric abx. Active Problems: Acute encephalopathy - persistent. Left Thalamic Hemorrhage, with IV extension Intracerebral Hemorrhage, ICH score 2 Respiratory failure requiring vent support due to increased work of breathing Probable healthcare associated pneumonia New severe sepsis Possible NMS Hypertensive Emergency- resolved. Agitated Delirium - resolved. 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 - resolving. Hyperglycemia Hypertension Hypernatremia Hypoactive delirium Plan: NEURO: - Seroquel and Haldol discontinued due to possible NMS - Discontinued modafinil 200mg daily due to possibility of serotonin syndrome - oxy to 5mg po q4h - propranolol to 30mg po q6h - continue clonidine 0.3 mg tid - Repeat CT of the head today RESP: - Placed back on PRVC /AC for increased work of breathing - CT of the chest today is 09/13/17 to evaluate for pneumonia - Broad-spectrum antibiotics as below - DuoNeb every 6 hours scheduled and when necessary, ventilator bundle CVS: - Intermittent hypertension now well controlled - Nicardipine to keep systolic blood pressure less than 150 - Continue clonidine and amlodipine and propranolol GI: - Status post PEG tube continue tube feeds - Having bowel movements no diarrhea - free water 200mL per tube q6h - Pepcid per tube /RENAL: - recheck daily sodium on bmp - continue lambert catheter given prior urinary obstruction and resolving rafaela - Nephrology following, creatinine steadily improving ID - New sepsis with high white count and high fever, most likely secondary to pneumonia - CT of the chest abdomen pelvis to evaluate for source of sepsis - Continue vancomycin and Zosyn - Follow-up on blood urine and sputum culture HEME: - Leukocytosis secondary to probable sepsis MSK: - OOB to stretcher chair daily - PT consult ENDO: - levemir to 12 units SQ q12h - keep med scale q6h SSI PROPH: - sqh 5000 q12h (2 weeks post bleed, stable). Pepcid for GI prophylaxis Overall impression: Overnight spike fever up to 105. WBC 23.3, most likely due to new sepsis from probable pneumonia. Now critically ill and requiring for vent support. Received dantrolene for probable NMS; Haldol discontinued. Currently remains critically ill off pathway with severe sepsis and respiratory failure. Prognosis remains poor CCT 35 MIN Ladan Pierre MD Sep 13, 2017 08:06
[2017-09-13] MEDS: INSULIN DETEMIR 100 UNITS/ML VIAL SQ SCH ×2 (10:22→20:21)
--- NOTE | 2017-09-13 11:03 | RADRPT ---
EXAM DATE/TIME: 09/13/2017 09:17 [facility] COMPARISON: CT BRAIN W/O CONTRAST, September 08, 2017, 9:28. INDICATIONS : Altered mental status. RADIATION DOSE: 57.71 CTDIvol (mGy) MEDICAL HISTORY : Hypertension. SURGICAL HISTORY : None. ENCOUNTER: Initial ACUITY: 1 day PAIN SCALE: Non-responsive LOCATION: Bilateral head TECHNIQUE: Multiple contiguous axial images were obtained of the head. Using automated exposure control and adj ustment of the mA and/or kV according to patient size, radiation dose was kept as low as reasonably a chievable to obtain optimal diagnostic quality images. DICOM format image data is available electro nically for review and comparison. FINDINGS: There is resolving hematoma in the left thalamus with decreasing mass effect and midline shift. A sma ll amount of blood is layering in the occipital horns. No acute hemorrhage is identified. The ventric les are slightly enlarged but unchanged in size. Pansinusitis is present. CONCLUSION: 1. Resolving left basal ganglia hematoma Natan Lagos MD on September 13, 2017 at 10:55 Board Certified Radiologist. This report was verified electronically.
--- NOTE | 2017-09-13 11:36 | HHI.NSPN ---
(RamaJames) History Chief Complaint: Unable to obtain due to patient's clinical condition. (RamaJames) Interval History 08/29: History of hypertension who was brought to the emergency room per [facility] after being found with altered mental status, right hemiparesis. He had reportedly been seen to be normal approximately 3-1/2 hours prior. Systolic blood pressure greater than 260/130 on initial evaluation. No seizure activity reported. Positive emesis. Per emergency room personnel the patient was responding verbally, difficulty raising his right arm upon initial arrival. He was intubated in the emergency room and a stat CT scan accomplished which has revealed a primarily left thalamic intracranial hemorrhage. 09/01/17: Patient remains intubated and sedated. 09/02: intubated and well sedated, not tolerating sedation vacation due to increase in blood pressure. 09/03/17: Remains on propofol and fentanyl IV for ventilator control. Positive agitation with decreased sedation 09/04/17: Pt sedated on Diprivan and Fentanyl drip. Not following commands. Pt on Cardene drip. Intubated. 09/05/17: Pt sedated on Diprivan and Fentanyl drip. Not following commands. Pt on Cardene drip. Intubated. Pupils 2mm bilaterally, NR bilaterally. 09/06/17: Remains intubated. PEG tube placed today. On Decadron and Benadryl for angioedema. Lisinopril discontinued 09/07. The patient is obtunded but is sedated with propofol. Nursing reports that the patient does have bleeding secondary to his PEG tube being placed yesterday. The family reports that the plan is to do a tracheostomy tomorrow. Nursing does say the patient does withdraw to stimulation, has a cough and gag reflex but his pupils are nonreactive. 09/10: The patient continues to be obtunded although he has sedation infusing at a low dose. He is trached and tolerating a CPAP trial. 09/13: Obtunded versus lethargic. He is not on any sedation. He is trached and mechanically ventilated. He went for a CT brain this morning. Nursing reports that the patient does withdraw to noxious stimulation and that the pupils are sluggish. (James Ontiveros) System Review Comments Unable to obtain due to patient's clinical condition. (James Ontiveros) Exam Results 09/11/17 09/11/17 09/12/17 09/12/17 09/13/17 09/13/17 06:00 18:00 06:00 18:00 06:00 18:00 Intake Total 1763 ml 1336 ml 689 ml 720 ml 1265 ml 996 ml Output Total 3240.0 ml 1500 ml 1250 ml 1050 ml 1450 ml Balance -1477.0 ml -164 ml -561 ml -330 ml -185 ml 996 ml Intake Oral 600 ml 720 ml IV Total 451 ml 298 ml 270 ml 996 ml Tube Feeding 1112 ml 438 ml 439 ml 595 ml Other 200 ml 250 ml 400 ml Output Urine Total 3100 ml 1350 ml 1250 ml 1050 ml 1450 ml Stool Total 100 ml 150 ml Gastric Drainage Total 40 ml Tube Feeding Residual Discard 0 ml 0 ml # Bowel Movements 2 1 0 1 0 Vital Signs Date Time Temp Pulse Resp B/P (MAP) Pulse Ox O2 Delivery O2 Flow Rate FiO2 09/13/17 10:51 109 138/62 09/13/17 10:00 112 09/13/17 09:05 19 09/13/17 09:00 100 100 09/13/17 08:00 101.7 106 21 134/63 (86) 98 09/13/17 08:00 106 09/13/17 07:26 100 40 09/13/17 07:26 100 Ventilator 40 09/13/17 07:00 98 Mechanical Ventilator 40 09/13/17 06:03 96 130/59 09/13/17 06:00 94 09/13/17 04:02 97 40 09/13/17 04:00 102.3 115 20 167/87 (113) 98 09/13/17 04:00 115 09/13/17 03:30 112 187/83 09/13/17 03:00 103.5 112 21 187/95 (125) 99 09/13/17 02:56 112 185/91 09/13/17 02:00 120 09/13/17 00:36 100 50 09/13/17 00:30 104.8 113 185/98 (127) 98 09/13/17 00:00 104.7 09/13/17 00:00 104.8 115 26 222/121 (154) 98 09/13/17 00:00 115 09/12/17 23:00 103.2 125 172/107 (128) 09/12/17 22:00 103.1 107 149/100 (116) 09/12/17 22:00 107 09/12/17 21:15 99 189/98 (128) 09/12/17 21:00 99 189/98 (128) 09/12/17 20:52 97 T-piece 35 09/12/17 19:00 T-Piece 35 09/12/17 18:00 101.6 96 30 161/86 (111) 09/12/17 18:00 96 09/12/17 16:00 95 09/12/17 14:00 91 09/12/17 12:00 95 09/12/17 12:00 101.2 96 19 165/84 (111) 92 09/12/17 10:00 98 09/12/17 08:00 101.0 95 18 147/82 (103) 96 09/12/17 08:00 95 09/12/17 07:37 95 T-piece 28 09/12/17 07:00 100 T-Piece 28 09/12/17 06:00 93 09/12/17 04:00 100.8 100 19 183/92 (122) 98 09/12/17 04:00 100 09/12/17 02:00 103 09/12/17 00:00 106 09/12/17 00:00 100.9 101 21 173/94 (120) 98 09/11/17 22:00 106 09/11/17 20:09 97 T-piece 6.00 35 09/11/17 20:00 106 09/11/17 20:00 101.8 106 21 165/92 (116) 98 09/11/17 19:00 T-Piece 40 09/11/17 18:00 95 09/11/17 16:00 101.7 101 24 161/84 (109) 97 09/11/17 16:00 110 09/11/17 14:00 104 09/11/17 12:00 40 09/11/17 12:00 99 09/11/17 12:00 101.0 99 25 165/84 (111) 97 09/11/17 10:19 22 09/11/17 10:00 106 09/11/17 08:00 40 09/11/17 08:00 100.9 105 23 140/61 (87) 97 09/11/17 08:00 102 09/11/17 07:58 97 T-piece 35 09/11/17 07:00 98 T-Piece 40 09/11/17 06:00 114 09/11/17 04:00 40 09/11/17 04:00 116 09/11/17 04:00 100.4 116 20 146/86 (106) 97 09/11/17 02:00 106 09/11/17 00:00 40 09/11/17 00:00 100.6 108 17 121/70 (87) 95 09/11/17 00:00 102 09/10/17 22:00 102 09/10/17 20:52 97 T-piece 6.00 40 09/10/17 20:00 108 09/10/17 20:00 100 T-Piece 40 09/10/17 20:00 100.8 108 20 158/78 (104) 99 09/10/17 20:00 40 09/10/17 18:00 99 09/10/17 16:00 95 09/10/17 16:00 40 09/10/17 16:00 100.6 104 17 153/89 (110) 97 09/10/17 14:00 97 09/10/17 12:00 99.8 98 20 161/74 (103) 95 09/10/17 12:00 98 09/10/17 11:45 95 T-piece 35 (James Ontiveros) Physical Examination GENERAL: Obtunded vs lethargic, no sedation. He is not in any apparent distress. HEENT: Normocephalic, atraumatic. Pupils 3 mm appear very sluggish. NECK: Tracheostomy, no JVD, trachea midline. MUSCULOSKELETAL: Moves LUE & BLE to stimulation. No evident deformity or clubbing. NEUROLOGICAL: Obtunded vs lethargic, GCS 7T (E2 V1T M4). Opens eyes & facial grimacing to noxious stimulation. Nonverbal, trached. Does not follow commands. Pupils 3 mm very sluggish. Moves LUE & BLE to local & central noxious stimulation, no response w/RUE. (James Ontiveros) Lab, Micro, Other Results This practitioner independently reviewed the CT brain completed this morning and compared it with that from . The images demonstrated continued improvement in the left thalmic haemorrhage. Blood products are noted in the posterior horns. Recent Impressions Head CT 09/13/17 0800 Signed Impressions: Service Date/Time: Wednesday, September 13, 2017 09:17 - CONCLUSION: 1. Resolving left basal ganglia hematoma Natan Lagos MD Chest X-Ray 09/12/17 0000 Signed Impressions: Service Date/Time: Tuesday, September 12, 2017 23:39 - CONCLUSION: No acute disease. Angelo Conn MD 09/11/17 09/11/17 09/12/17 09/12/17 09/13/17 09/13/17 06:00 18:00 06:00 18:00 06:00 18:00 Intake Total 1763 ml 1336 ml 689 ml 720 ml 1265 ml 996 ml Output Total 3240.0 ml 1500 ml 1250 ml 1050 ml 1450 ml Balance -1477.0 ml -164 ml -561 ml -330 ml -185 ml 996 ml Intake Oral 600 ml 720 ml IV Total 451 ml 298 ml 270 ml 996 ml Tube Feeding 1112 ml 438 ml 439 ml 595 ml Other 200 ml 250 ml 400 ml Output Urine Total 3100 ml 1350 ml 1250 ml 1050 ml 1450 ml Stool Total 100 ml 150 ml Gastric Drainage Total 40 ml Tube Feeding Residual Discard 0 ml 0 ml # Bowel Movements 2 1 0 1 0 Laboratory Tests Test 09/10/17 13:00 09/11/17 04:13 09/12/17 01:11 09/12/17 06:00 Magnesium Level 2.4 MG/DL Blood Urea Nitrogen 49 MG/DL Creatinine 3.15 MG/DL Random Glucose 231 MG/DL Albumin 2.0 GM/DL Calcium Level 8.6 MG/DL Phosphorus Level 2.9 MG/DL Sodium Level 146 MEQ/L Potassium Level 3.3 MEQ/L Chloride Level 107 MEQ/L Carbon Dioxide Level 30.0 MEQ/L Anion Gap 9 MEQ/L Estimat Glomerular Filtration Rate 26 ML/MIN Blood Gas Puncture Site RT RADIAL Blood Gas Patient Temperature 98.6 Blood Gas HCO3 32 mmol/L Blood Gas Base Excess 7.6 mmol/L Blood Gas Oxygen Saturation 96 % Arterial Blood pH 7.48 Arterial Blood Partial Pressure CO2 43 mmHg Arterial Blood Partial Pressure O2 107 mmHg Arterial Blood Oxygen Content 14.6 Vol % Arterial Blood Carboxyhemoglobin 1.1 % Arterial Blood Methemoglobin 1.3 % Blood Gas Hemoglobin 10.7 G/DL Oxygen Delivery Device VENTILATOR Blood Gas Ventilator Setting SEE COMMENT Blood Gas Inspired Oxygen 40 % Urine Color YELLOW Urine Turbidity HAZY Urine pH 6.5 Urine Specific [place] 1.018 Urine Protein 100 mg/dL Urine Glucose (UA) 300 mg/dL Urine Ketones NEG mg/dL Urine Occult Blood MOD Urine Nitrite NEG Urine Bilirubin NEG Urine Urobilinogen LESS THAN 2.0 MG/DL Urine Leukocyte Esterase NEG Urine RBC 166 /hpf Urine WBC 8 /hpf Urine Squamous Epithelial Cells 1 /hpf Urine Transitional Epithelial Cells <1 /hpf Urine Amorphous Sediment RARE Urine Bacteria FEW /hpf Urine Hyaline Casts 1 /lpf Urine Mucus FEW /lpf Microscopic Urinalysis Comment CATH-CULTURE IND Test 09/12/17 06:08 09/13/17 01:35 White Blood Count 15.6 TH/MM3 23.3 TH/MM3 Red Blood Count 3.90 MIL/MM3 4.13 MIL/MM3 Hemoglobin 10.0 GM/DL 11.1 GM/DL Hematocrit 32.4 % 34.2 % Mean Corpuscular Volume 83.2 FL 82.9 FL Mean Corpuscular Hemoglobin 25.7 PG 26.9 PG Mean Corpuscular Hemoglobin Concent 30.9 % 32.5 % Red Cell Distribution Width 15.0 % 15.0 % Platelet Count 324 TH/MM3 359 TH/MM3 Mean Platelet Volume 9.6 FL 10.4 FL Blood Urea Nitrogen 47 MG/DL 49 MG/DL Creatinine 2.88 MG/DL 2.85 MG/DL Random Glucose 247 MG/DL 226 MG/DL Calcium Level 8.6 MG/DL 8.9 MG/DL Sodium Level 147 MEQ/L 147 MEQ/L Potassium Level 3.4 MEQ/L 3.8 MEQ/L Chloride Level 110 MEQ/L 108 MEQ/L Carbon Dioxide Level 32.2 MEQ/L 33.9 MEQ/L Anion Gap 5 MEQ/L 5 MEQ/L Estimat Glomerular Filtration Rate 29 ML/MIN 29 ML/MIN Total Bilirubin 0.5 MG/DL Direct Bilirubin 0.2 MG/DL Indirect Bilirubin 0.3 MG/DL Aspartate Amino Transf (AST/SGOT) 114 U/L Alanine Aminotransferase (ALT/SGPT) 163 U/L Alkaline Phosphatase 102 U/L Total Creatine Kinase 498 U/L Creatine Kinase MB 0.6 NG/ML Creatine Kinase MB % 0.1 % Total Protein 7.8 GM/DL Albumin 2.2 GM/DL Orders Procedure Category Date Status Time Potassium Chlor 20 MED 09/10/17 Complete Meq Premix (Kcl 20 Me 13:00 Magnesium (Mg) LAB 09/10/17 Complete 12:33 Diet Tube Feed Only DIET 09/10/17 Transmitted Dinner Tube Feeding PRINCE 09/10/17 Complete 14:43 Dietary (Dietitian) CONS 09/10/17 Complete Consult Insulin Detemir Inj MED 09/11/17 In Process (Levemir Inj) 22:00 Oxycodone Liq MED 09/11/17 In Process (Roxicodone Intensol 13:00 Propranolol (Inderal) MED 09/11/17 In Process 12:00 Modafinil (Provigil) MED 09/11/17 In Process 12:00 Free Water (Free MED 09/11/17 In Process Water) 12:00 Cbc No Diff, Includes LAB 09/12/17 Complete Plts 05:00 Cbc No Diff, Includes LAB 09/14/17 Verified Plts 05:00 Cbc No Diff, Includes LAB 09/15/17 Verified Plts 05:00 Cbc No Diff, Includes LAB 09/16/17 Verified Plts 05:00 Cbc No Diff, Includes LAB 09/17/17 Verified Plts 05:00 Cbc No Diff, Includes LAB 09/18/17 Verified Plts 05:00 Basic Metabolic Panel LAB 09/12/17 Complete (Bmp) 05:00 Basic Metabolic Panel LAB 09/14/17 Verified (Bmp) 05:00 Basic Metabolic Panel LAB 09/15/17 Verified (Bmp) 05:00 Basic Metabolic Panel LAB 09/16/17 Verified (Bmp) 05:00 Basic Metabolic Panel LAB 09/17/17 Verified (Bmp) 05:00 Basic Metabolic Panel LAB 09/18/17 Verified (Bmp) 05:00 Activity Oob With PRINCE 09/11/17 In Process Assistance 10:20 Consult Pt Eval & Tx PT 09/11/17 Logged OOB 10:20 Heparin Inj (Heparin MED 09/11/17 In Process Inj) 21:00 Resp Trach Collar RSP 09/11/17 Logged Famotidine (Pepcid) MED 09/11/17 In Process 21:00 Quetiapine (Seroquel) MED 09/11/17 In Process 14:00 Replace Coleman PRINCE 09/11/17 In Process 14:29 ^ Other Nursing Orders PRINCE 09/11/17 In Process 17:41 Urinalysis - C+S If LAB 09/12/17 Complete Indicated 06:31 Sputum Culture And ALEXIS 09/12/17 In Process Gram Stain 06:31 Nasal Culture ALEXIS 09/12/17 In Process 06:52 Urine Culture ALEXIS 09/12/17 In Process 06:00 Ct Brain W/O Iv RADCT 09/13/17 Resulted Contrast(Rout) 08:00 [place], Hypothermia SPD 09/12/17 Logged 25x60 Ea 23:06 Equip, Hypo / SPD 09/12/17 Logged Hyperthermia Use 23:06 Arterial Blood Gas LAB 09/12/17 Complete (Abg) Chest, Single Ap RADDIAG 09/12/17 Resulted Blood Culture ALEXIS 09/13/17 In Process 00:46 Creatine Kinase (Cpk) LAB 09/13/17 Complete 00:51 Cbc No Diff, Includes LAB 09/13/17 Complete Plts 00:51 Basic Metabolic Panel LAB 09/13/17 Complete (Bmp) 00:51 CKMB LAB 09/13/17 Complete 01:35 CKMB% LAB 09/13/17 Complete 01:35 Lorazepam Inj (Ativan MED 09/13/17 Complete Inj) 02:45 Vancomycin Consult MED 09/13/17 In Process Pharmacy (Vancomycin 02:45 Portable Eeg EEG 09/13/17 Logged Piperacil-Tazo 2.25 MED 09/13/17 In Process Gm Premix (Zosyn 2.2 03:00 Nicardipine Inj MED 09/13/17 In Process (Cardene Inj) 02:45 Dantrolene Inj MED 09/13/17 Complete (Dantrium Inj) 03:00 Hepatic Functional LAB 09/13/17 Complete Panel 02:51 Vancomycin Inj MED 09/13/17 Complete (Vancomycin Inj) 04:00 Ct Thorax/ Chest Wo RADCT 09/13/[address] Abd/Pel W/O Iv RADCT 09/13/17 Taken Contrast Creatine Kinase (Cpk) LAB 09/13/17 Logged 14:00 Complete Blood Count LAB 09/14/17 Verified With Diff 06:00 Comprehensive LAB 09/14/17 Verified Metabolic Panel 06:00 Chest, Single Ap RADDIAG 09/14/17 Verified 06:00 Ot Request For Service OT 09/13/17 Logged 10:25 Random Vancomycin LAB 09/14/17 Verified 06:00 Vital Signs Date Time Temp Pulse Resp B/P (MAP) Pulse Ox O2 Delivery O2 Flow Rate FiO2 09/13/17 10:51 109 138/62 09/13/17 10:00 112 09/13/17 09:05 19 09/13/17 09:00 100 100 09/13/17 08:00 101.7 106 21 134/63 (86) 98 09/13/17 08:00 106 09/13/17 07:26 100 40 09/13/17 07:26 100 Ventilator 40 09/13/17 07:00 98 Mechanical Ventilator 40 09/13/17 06:03 96 130/59 09/13/17 06:00 94 09/13/17 04:02 97 40 09/13/17 04:00 102.3 115 20 167/87 (113) 98 09/13/17 04:00 115 09/13/17 03:30 112 187/83 09/13/17 03:00 103.5 112 21 187/95 (125) 99 09/13/17 02:56 112 185/91 09/13/17 02:00 120 09/13/17 00:36 100 50 09/13/17 00:30 104.8 113 185/98 (127) 98 09/13/17 00:00 104.7 09/13/17 00:00 104.8 115 26 222/121 (154) 98 09/13/17 00:00 115 09/12/17 23:00 103.2 125 172/107 (128) 09/12/17 22:00 103.1 107 149/100 (116) 09/12/17 22:00 107 09/12/17 21:15 99 189/98 (128) 09/12/17 21:00 99 189/98 (128) 09/12/17 20:52 97 T-piece 35 09/12/17 19:00 T-Piece 35 09/12/17 18:00 101.6 96 30 161/86 (111) 09/12/17 18:00 96 09/12/17 16:00 95 09/12/17 14:00 91 09/12/17 12:00 95 09/12/17 12:00 101.2 96 19 165/84 (111) 92 09/12/17 10:00 98 09/12/17 08:00 101.0 95 18 147/82 (103) 96 09/12/17 08:00 95 09/12/17 07:37 95 T-piece 28 09/12/17 07:00 100 T-Piece 28 09/12/17 06:00 93 09/12/17 04:00 100.8 100 19 183/92 (122) 98 09/12/17 04:00 100 09/12/17 02:00 103 09/12/17 00:00 106 09/12/17 00:00 100.9 101 21 173/94 (120) 98 09/11/17 22:00 106 09/11/17 20:09 97 T-piece 6.00 35 09/11/17 20:00 106 09/11/17 20:00 101.8 106 21 165/92 (116) 98 09/11/17 19:00 T-Piece 40 09/11/17 18:00 95 09/11/17 16:00 101.7 101 24 161/84 (109) 97 09/11/17 16:00 110 09/11/17 14:00 104 09/11/17 12:00 40 09/11/17 12:00 99 09/11/17 12:00 101.0 99 25 165/84 (111) 97 09/11/17 10:19 22 09/11/17 10:00 106 09/11/17 08:00 40 09/11/17 08:00 100.9 105 23 140/61 (87) 97 09/11/17 08:00 102 09/11/17 07:58 97 T-piece 35 09/11/17 07:00 98 T-Piece 40 09/11/17 06:00 114 09/11/17 04:00 40 09/11/17 04:00 116 09/11/17 04:00 100.4 116 20 146/86 (106) 97 09/11/17 02:00 106 09/11/17 00:00 40 09/11/17 00:00 100.6 108 17 121/70 (87) 95 09/11/17 00:00 102 09/10/17 22:00 102 09/10/17 20:52 97 T-piece 6.00 40 09/10/17 20:00 108 09/10/17 20:00 100 T-Piece 40 09/10/17 20:00 100.8 108 20 158/78 (104) 99 09/10/17 20:00 40 09/10/17 18:00 99 09/10/17 16:00 95 09/10/17 16:00 40 09/10/17 16:00 100.6 104 17 153/89 (110) 97 09/10/17 14:00 97 09/10/17 12:00 99.8 98 20 161/74 (103) 95 09/10/17 12:00 98 09/10/17 11:45 95 T-piece 35 (James Ontiveros) Medical Decision Making Impression and Plan Impression: 1. Large thalamic intracranial hemorrhage. Obtunded vs lethargic, no sedation. Withdraws & opens eyes to noxious stimulation. Prognosis poor for any meaningful recovery. CT brain w/improvement of left thalamic haemorrhage, decreased midline shift, blood noted in posterior horns, no acute findings. Reviewed labs for today. Large increase in leukocytosis. Sodium 147. UA w/RBCs & few WBCs. Blood & urine cultures pending. CT chest, abdomen & pelvis completed and pending Radiologist's report. Plan: Discussed plan of care with Nursing. Primary management per Supervisor Tubing. Neuro checks. Palliative Care consult. Continue full supportive care measures per family. (James Ontiveros) Attending Statement The exam, history, and the medical decision-making described in the above note were completed with the assistance of the mid-level provider. I reviewed and agree with the findings presented. I attest that I had a [id number] encounter with the patient on the same day, and personally performed and documented my assessment and findings in the medical record. On examination 09/13/2017, patient little more responsive. Moderate I opening to voice and sternal rub Not following commands Trach in place All sedation Continuing CPAP 09/13/2017 CT scan head with expected partial resolution-evolution left basal ganglia intracranial hemorrhage. (Orville Tinajero MD) James Ontiveros Sep 13, 2017 11:36 Orville Tinajero MD Oct 05, 2017 09:00
--- NOTE | 2017-09-13 11:58 | RADRPT ---
EXAM DATE/TIME: 09/13/2017 09:28 [facility] COMPARISON: CHEST SINGLE AP, September 12, 2017, 23:39. INDICATIONS : Abdominal distention. ORAL CONTRAST: No oral contrast ingested. RADIATION DOSE: 20.48 CTDIvol (mGy) ; Combined studies; Patient body habitus MEDICAL HISTORY : Hypertension. SURGICAL HISTORY : None. ENCOUNTER: Initial ACUITY: 1 day PAIN SCALE: Non-responsive LOCATION: Bilateral abdomen TECHNIQUE: Volumetric scanning of the abdomen and pelvis was performed. Using automated exposure control and ad justment of the mA and/or kV according to patient size, radiation dose was kept as low as reasonably achievable to obtain optimal diagnostic quality images. DICOM format image data is available electro nically for review and comparison. FINDINGS: LOWER LUNGS: Atelectatic changes in both lung bases and left lingula. Heart size appears prominent. LIVER: Homogeneous density without lesion. There is no dilation of the biliary tree. No calcified gallston es. SPLEEN: Normal size without lesion. PANCREAS: Within normal limits. KIDNEYS: Normal in size and shape. There is no mass, stone, or hydronephrosis. ADRENAL GLANDS: Within normal limits. VASCULAR: There is no aortic aneurysm. BOWEL/MESENTERY: Gastrostomy tube appropriately positioned in the gastric lumen there may be a small lipoma in small b owel loops laterally in the left midabdomen. Bowel is otherwise normal. Appendix is identified and is intact. I believe is a rectal tube in place. ABDOMINAL WALL: Small umbilical hernia only contains fat. Mild anasarca in the flanks. RETROPERITONEUM: There is some stranding in the perivascular tissues about the distal aorta extending into the aortic bifurcation. There also shotty lymph nodes in the same general vicinity which appear reactive.. BLADDER: Urinary bladder is mostly decompressed. There is some air in the nondependent portion of the bladder with some mural thickening and pericystic inflammatory changes. Findings could represent a chronic cy stitis. Has there been a recent instrumentation/catheterization to explain the air? REPRODUCTIVE: Within normal limits. INGUINAL: 2.6 cm right inguinal hernia only contains fat. MUSCULOSKELETAL: Within normal limits for patient age. CONCLUSION: 1. There is some stranding in the retroperitoneal perivascular tissues around the distal aorta extend ing into the bifurcation with a regional borderline lymph nodes. Findings are characteristic of a non specific inflammatory process. Findings could represent early retroperitoneal fibrosis.. 2. Urinary bladder is decompressed with some mural thickening in pericystic inflammatory changes poss ibly representing a chronic cystitis. Nondependent air could be associated with a recent catheterizat ion/instrumentation. 3. Small umbilical and right inguinal hernias only contain fat. 4. Bilateral dependent basilar and left lingular atelectatic changes. Heart size is borderline promin ent. 5. Otherwise, bowel is intact without obstruction to explain abdominal distention Reyes Guzman MD on September 13, 2017 at 11:47 Board Certified Radiologist. This report was verified electronically.
--- NOTE | 2017-09-13 12:03 | RADRPT ---
EXAM DATE/TIME: 09/13/2017 09:28 [facility] COMPARISON: CT THORAX W/O CONTRAST, September 20, 2015, 17:14. INDICATIONS : Respiratory distress. RADIATION DOSE: 20.48 CTDIvol (mGy) ; Combined studies; Patient body habitus MEDICAL HISTORY : Hypertension. SURGICAL HISTORY : None. ENCOUNTER: Initial ACUITY: 1 day PAIN SCALE: Non-responsive LOCATION: Bilateral chest TECHNIQUE: Volumetric scanning of the chest was performed. Using automated exposure control and adjustment of t he mA and/or kV according to patient size, radiation dose was kept as low as reasonably achievable to obtain optimal diagnostic quality images. DICOM format image data is available electronically for r eview and comparison. Follow-up recommendations for detected pulmonary nodules are based at a minimum on nodule size and pa tient risk factors according to Fleischner Society Guidelines. FINDINGS: LUNGS: Bibasilar dependent and left lingular atelectatic changes with no confluent infiltrate or suspicious mass lesion. PLEURAE: There is no pleural thickening or pleural effusion. MEDIASTINUM: The heart and great vessels demonstrate no acute abnormality. There is no mediastinal or hilar lymph adenopathy. Patient has a tracheostomy tube which appears to be appropriately positioned. Heart size is prominent. AXILLAE: Within normal limits. No lymphadenopathy. MUSCULOSKELETAL: Within normal limits for patient age. MISCELLANEOUS: The visualized upper abdominal organs demonstrate no acute abnormality. CONCLUSION: 1. Bibasilar and left lingular dependent atelectatic changes. Lungs are otherwise clear. 2. Tracheostomy tube with the tip probably positioned above the connie. 3. Compensated cardiomegaly. Reyes Guzman MD on September 13, 2017 at 11:56 Board Certified Radiologist. This report was verified electronically.
--- NOTE | 2017-09-13 13:16 | HHI.NPPN ---
Subjective Renal Failure: Acute Additional Remarks Patient remain unresponsive, he is back on the ventilator. Review of Systems General General Remarks unable to obtain Objective Data Data 09/13/17 09/14/17 19:00 07:00 Intake Total 770 ml Balance 770 ml IV Total 770 ml Vital Signs Date Time Temp Pulse Resp B/P (MAP) Pulse Ox O2 Delivery O2 Flow Rate FiO2 09/13/17 13:07 99 40 09/13/17 12:00 101.6 102 17 115/58 (77) 99 09/13/17 12:00 102 09/13/17 11:53 16 09/13/17 10:51 109 138/62 09/13/17 10:00 112 09/13/17 09:05 19 09/13/17 09:00 100 100 09/13/17 08:00 101.7 106 21 134/63 (86) 98 09/13/17 08:00 106 09/13/17 07:26 100 40 09/13/17 07:26 100 Ventilator 40 09/13/17 07:00 98 Mechanical Ventilator 40 09/13/17 06:03 96 130/59 09/13/17 06:00 94 09/13/17 04:02 97 40 09/13/17 04:00 102.3 115 20 167/87 (113) 98 09/13/17 04:00 115 09/13/17 03:30 112 187/83 09/13/17 03:00 103.5 112 21 187/95 (125) 99 09/13/17 02:56 112 185/91 09/13/17 02:00 120 09/13/17 00:36 100 50 09/13/17 00:30 104.8 113 185/98 (127) 98 09/13/17 00:00 104.7 09/13/17 00:00 104.8 115 26 222/121 (154) 98 09/13/17 00:00 115 09/12/17 23:00 103.2 125 172/107 (128) 09/12/17 22:00 103.1 107 149/100 (116) 09/12/17 22:00 107 09/12/17 21:15 99 189/98 (128) 09/12/17 21:00 99 189/98 (128) 09/12/17 20:52 97 T-piece 35 09/12/17 19:00 T-Piece 35 09/12/17 18:00 101.6 96 30 161/86 (111) 09/12/17 18:00 96 09/12/17 16:00 95 09/12/17 14:00 91 -: 09/13/17 0135 09/13/17 0135 Microbiology 09/13/17 Aerobic Blood Culture, Received Pending 09/13/17 Anaerobic Blood Culture, Received Pending 09/13/17 Aerobic Blood Culture, Received Pending 09/13/17 Anaerobic Blood Culture, Received Pending Tubes & Lines: Coleman Tubes & Lines Comment PEG, trach Drip Comment fentanyl, propofol Physical Exam General Appearance: No Acute Distress Neck Neck Exam: Neck Supple Pulmonary Resp Exam: Clear Bilaterally, Breath Sounds Equal Resp Remarks vented breath sounds. Cardiology CV Exam: Regular, Normal Sinus Rhythm Gastrointestinal/Abdomen GI Exam: Soft, Non-Tender, Bowel Sounds Present, Positive Bowel Movement, Distended GI Remarks obese. On TF Genitourinary Exam: Clear Urine Musculoskeletal MS Exam: Joints Intact, Normal Tone, Unable to Ambulate Extremeties Extremities Exam: Moderate Edema Neurologic Neuro Exam: Unresponsive, Sedated Assessment/Plan Discussed Condition With: Relative Assessment Summary: Hypertension Electrolyte Assessment: Hypokalemia Problem List: (1) Acute kidney injury ICD Codes: N17.9 - Acute kidney failure, unspecified Status: Acute Plan: Baseline creatinine around 2. He most likely has underlying CKD. RAFAELA most likely due to renal hypoperfusion resulting from normalization of BP. Improving renal function , no need for dialysis. He has excellent urine output. Coleman is in place. Avoid IVF, nephrotoxic agents. Continue to replace potassium as needed. Off diuretics, urine out put is adequate. (2) Hemorrhagic stroke ICD Codes: I61.9 - Nontraumatic intracerebral hemorrhage, unspecified Status: Acute Plan: Neurosurgery has followed, serial imaging reviewed. Non surgical management at this time. S/P PEG and tracheostomy Palliative is following, meaningful recovery is questionable. (3) Hypertension ICD Codes: I10 - Hypertension Status: Chronic Plan: BP improved. Continue oral medications. Monitor and titrate to effect. Adolph Rachel MD Sep 13, 2017 13:16
--- NOTE | 2017-09-13 15:29 | HHI.HCPN ---
Reason for visit a. To assist with evaluation and management of symptoms including: Pain and dyspnea. b. To assist medical decision maker(s) with: better understanding of current medical conditions; weighing benefits/burdens of medical treatment options; making medical treatment decisions. . (Soniya Elliott) Subjective/Interval History Mr. Matos is a 46-year-old male with a medical history significant for TIA, hypertension and migraines. Patient presented to ED via EMS on 08/28/[address] as stroke alert. Head CT revealing acute hemorrhagic stroke in the right thalamus with extension of the lateral third ventricles with a shift onto the right side of 6 mm. patient was subsequently intubated and placed on mechanical ventilation. Palliative care was consulted for further clarifications of goals of care and emotional support. Patient s/p PEG tube placement in 09/06/17 and tracheostomy on 09/08/17. Clinical course complicated by fever requiring cooling blanket, leukocytosis, and persisted respiratory failure requiring full ventilator support due to tachypnea. Patient seen in surgical ICU, remains on full ventilator support, FiO2 40%. Max temperature overnight at 104.8 with tremors. Patient was given a dose of Dantroline secondary to concerns of neuroleptic malignant syndrome. Haldol and Seroquel have been discontinued. Fever has been controlled with cooling blanket and Tylenol. Patient has been off sedation for the past 48 hours, observed opening eyes but not tracking or following any commands. Repeat head CT today revealing resolving left basal ganglia hematoma. Abdomen /pelvis CT revealing retroperitoneal nonspecific inflammatory process, no obstructions noted. Chest CT revealing bibasilar atelectatic changes. Sputum culture positive for gram-negative rods. Spoke with patient's daughter Shannan at bedside. Medical update provided. Reviewed current medical treatment and recommendations. Gently reviewed that patient remains in critical condition, overall prognosis for meaningful recovery remains guarded. Shannan reports that family feels that patient has made some improvement since admission as evidenced by resolving brain hematoma and renal function. Gently shared concerns with Shannan of patient's overall clinical condition, specifically neurological status 2 days post discontinuation of sedation. Reviewed that patient remains at a very high risk for further complications, continue decline and . Daughter verbalizing aggressive goals to include full code. Ongoing emotional support and active listening provided. Spiritual services declined. Case discussed with Dr. Pierre and bedside RN. . Family/friend interactions See interval note. . (Soniya Elliott) Advance Directives Living Will: Never completed Health Care Surrogate: Never completed Durable Power of An/Ssn 2 4 Operator: Never completed (Soniya Elliott) Advance Directive Specifics Health Care Surrogate(s): No advance directives completed as per patient's family. Patient is . As per [place] law, healthcare proxy decision making falls to the majority of patient's adult children for which he has 3 (4th child is 4 years old). Daughter Shannan, daughter Nichole and son Hadley Maddox wish to participate. . Significant change in goals: Goals of therapy remain unchanged. . (Soniya Elliott) Objective Vital Signs Date Time Temp Pulse Resp B/P (MAP) Pulse Ox O2 Delivery O2 Flow Rate FiO2 09/13/17 13:47 86 103/58 09/13/17 13:07 99 40 09/13/17 12:00 101.6 102 17 115/58 (77) 99 09/13/17 12:00 102 09/13/17 12:00 102 115/58 09/13/17 11:53 16 09/13/17 10:51 109 138/62 09/13/17 10:00 112 09/13/17 09:05 19 09/13/17 09:00 100 100 09/13/17 08:00 101.7 106 21 134/63 (86) 98 09/13/17 08:00 106 09/13/17 07:26 100 40 09/13/17 07:26 100 Ventilator 40 09/13/17 07:00 98 Mechanical Ventilator 40 09/13/17 06:03 96 130/59 09/13/17 06:00 94 09/13/17 04:02 97 40 09/13/17 04:00 102.3 115 20 167/87 (113) 98 09/13/17 04:00 115 09/13/17 03:30 112 187/83 09/13/17 03:00 103.5 112 21 187/95 (125) 99 09/13/17 02:56 112 185/91 09/13/17 02:00 120 09/13/17 00:36 100 50 09/13/17 00:30 104.8 113 185/98 (127) 98 09/13/17 00:00 104.7 09/13/17 00:00 104.8 115 26 222/121 (154) 98 09/13/17 00:00 115 09/12/17 23:00 103.2 125 172/107 (128) 09/12/17 22:00 103.1 107 149/100 (116) 09/12/17 22:00 107 09/12/17 21:15 99 189/98 (128) 09/12/17 21:00 99 189/98 (128) 09/12/17 20:52 97 T-piece 35 09/12/17 19:00 T-Piece 35 09/12/17 18:00 101.6 96 30 161/86 (111) 09/12/17 18:00 96 09/12/17 16:00 95 Intake & Output 09/13/17 09/13/17 07:00 19:00 Intake Total 1491 ml 770 ml Output Total 1450 ml Balance 41 ml 770 ml IV Total 496 ml 770 ml Tube Feeding 595 ml Other 400 ml Output Urine Total 1450 ml # Bowel Movements 0 Physical Exam CONSTITUTIONAL/GENERAL: This is an obese patient intubated on mechanical ventilation via tracheostomy. Currently on full ventilator support. TUBES/LINES/DRAINS: ETT, PEG tube, tracheostomy, SCDs, Coleman catheter, PIV's. SKIN: No jaundice, rashes, or lesions. No wounds seen anteriorly. Skin temperature appropriate. Not diaphoretic. HEAD: Atraumatic. Normocephalic. EYES: No scleral icterus. Bilateral injected conjunctiva. ENT: Unable to evaluate hearing secondary to clinical condition. Nose without bleeding or purulent drainage. Moist oral mucosa. Glossal edema. NECK: Trachea midline. Supple. CARDIOVASCULAR: Regular rate and rhythm without murmurs, gallops, or rubs. Peripheral pulses symmetric. RESPIRATORY/CHEST: Symmetric, coarse breath sounds bilaterally. Trach, on mechanical ventilation. GASTROINTESTINAL: Abdomen obese, large, distended. Unable to appreciate hepatomegaly secondary to body habitus. Bowel sounds hypoactive. PEG tube in place. GENITOURINARY: Without palpable bladder distension. Coleman catheter in place. MUSCULOSKELETAL: Extremities without clubbing, cyanosis. No mottling or clubbing. Edema to all 4 extremities. NEUROLOGICAL: Unresponsive to verbal or tactile stimuli. PSYCHIATRIC: Unable to evaluate secondary to clinical condition. Appears calm. . (Soniya Elliott) Diagnostic Tests Laboratory Laboratory Tests Test 09/11/17 04:13 09/12/17 01:11 09/12/17 06:00 09/12/17 06:08 Blood Urea Nitrogen 49 MG/DL (7-18) 47 MG/DL (7-18) Creatinine 3.15 MG/DL (0.60-1.30) 2.88 MG/DL (0.60-1.30) Random Glucose 231 MG/DL (74-106) 247 MG/DL (74-106) Albumin 2.0 GM/DL (3.4-5.0) Calcium Level 8.6 MG/DL (8.5-10.1) 8.6 MG/DL (8.5-10.1) Phosphorus Level 2.9 MG/DL (2.5-4.9) Sodium Level 146 MEQ/L (136-145) 147 MEQ/L (136-145) Potassium Level 3.3 MEQ/L (3.5-5.1) 3.4 MEQ/L (3.5-5.1) Chloride Level 107 MEQ/L (98-107) 110 MEQ/L (98-107) Carbon Dioxide Level 30.0 MEQ/L (21.0-32.0) 32.2 MEQ/L (21.0-32.0) Anion Gap 9 MEQ/L (5-15) 5 MEQ/L (5-15) Estimat Glomerular Filtration Rate 26 ML/MIN (>89) 29 ML/MIN (>89) Blood Gas Puncture Site RT RADIAL Blood Gas Patient Temperature 98.6 Blood Gas HCO3 32 mmol/L (22-26) Blood Gas Base Excess 7.6 mmol/L (-2-2) Blood Gas Oxygen Saturation 96 % (90-100) Arterial Blood pH 7.48 (7.380-7.420) Arterial Blood Partial Pressure CO2 43 mmHg (38-42) Arterial Blood Partial Pressure O2 107 mmHg (61-120) Arterial Blood Oxygen Content 14.6 Vol % (12.0-20.0) Arterial Blood Carboxyhemoglobin 1.1 % (0-4) Arterial Blood Methemoglobin 1.3 % (0-2) Blood Gas Hemoglobin 10.7 G/DL (12.0-16.0) Oxygen Delivery Device VENTILATOR Blood Gas Ventilator Setting SEE COMMENT Blood Gas Inspired Oxygen 40 % Urine Color YELLOW (YELLW/STRAW) Urine Turbidity HAZY (CLEAR) Urine pH 6.5 (5.0-8.5) Urine Specific [place] 1.018 (1.002-1.035) Urine Protein 100 mg/dL (NEG-TRACE) Urine Glucose (UA) 300 mg/dL (NEG) Urine Ketones NEG mg/dL (NEG) Urine Occult Blood MOD (NEG) Urine Nitrite NEG (NEG) Urine Bilirubin NEG (NEG) Urine Urobilinogen LESS THAN 2.0 MG/DL (LESS Urine Leukocyte Esterase NEG (NEG) Urine RBC 166 /hpf (0-3) Urine WBC 8 /hpf (0-5) Urine Squamous Epithelial Cells 1 /hpf (0-5) Urine Transitional Epithelial Cells <1 /hpf (NONE) Urine Amorphous Sediment RARE Urine Bacteria FEW /hpf (NONE) Urine Hyaline Casts 1 /lpf (RARE) Urine Mucus FEW /lpf (OCC) Microscopic Urinalysis Comment CATH-CULTURE IND White Blood Count 15.6 TH/MM3 (4.0-11.0) Red Blood Count 3.90 MIL/MM3 (4.50-5.90) Hemoglobin 10.0 GM/DL (13.0-17.0) Hematocrit 32.4 % (39.0-51.0) Mean Corpuscular Volume 83.2 FL (80.0-100.0) Mean Corpuscular Hemoglobin 25.7 PG (27.0-34.0) Mean Corpuscular Hemoglobin Concent 30.9 % (32.0-36.0) Red Cell Distribution Width 15.0 % (11.6-17.2) Platelet Count 324 TH/MM3 (150-450) Mean Platelet Volume 9.6 FL (7.0-11.0) Test 09/13/17 01:35 09/13/17 13:45 White Blood Count 23.3 TH/MM3 (4.0-11.0) Red Blood Count 4.13 MIL/MM3 (4.50-5.90) Hemoglobin 11.1 GM/DL (13.0-17.0) Hematocrit 34.2 % (39.0-51.0) Mean Corpuscular Volume 82.9 FL (80.0-100.0) Mean Corpuscular Hemoglobin 26.9 PG (27.0-34.0) Mean Corpuscular Hemoglobin Concent 32.5 % (32.0-36.0) Red Cell Distribution Width 15.0 % (11.6-17.2) Platelet Count 359 TH/MM3 (150-450) Mean Platelet Volume 10.4 FL (7.0-11.0) Blood Urea Nitrogen 49 MG/DL (7-18) Creatinine 2.85 MG/DL (0.60-1.30) Random Glucose 226 MG/DL (74-106) Calcium Level 8.9 MG/DL (8.5-10.1) Sodium Level 147 MEQ/L (136-145) Potassium Level 3.8 MEQ/L (3.5-5.1) Chloride Level 108 MEQ/L (98-107) Carbon Dioxide Level 33.9 MEQ/L (21.0-32.0) Anion Gap 5 MEQ/L (5-15) Estimat Glomerular Filtration Rate 29 ML/MIN (>89) Total Bilirubin 0.5 MG/DL (0.2-1.0) Direct Bilirubin 0.2 MG/DL (0.0-0.2) Indirect Bilirubin 0.3 MG/DL (0.0-0.8) Aspartate Amino Transf (AST/SGOT) 114 U/L (15-37) Alanine Aminotransferase (ALT/SGPT) 163 U/L (12-78) Alkaline Phosphatase 102 U/L (45-117) Total Creatine Kinase 498 U/L (39-308) 358 U/L (39-308) Creatine Kinase MB 0.6 NG/ML (0.5-3.6) 0.8 NG/ML (0.5-3.6) Creatine Kinase MB % 0.1 % (0.0-4.0) 0.2 % (0.0-4.0) Total Protein 7.8 GM/DL (6.4-8.2) Albumin 2.2 GM/DL (3.4-5.0) (Soniya Elliott) Result Diagram: 09/13/17 0135 09/13/17 0135 Microbiology Microbiology Date/Time Source Procedure Growth Status 09/13/17 01:35 Blood Peripheral Aerobic Blood Culture Pending Received 09/13/17 01:35 Blood Peripheral Anaerobic Blood Culture Pending Received 09/13/17 01:30 Blood Peripheral Aerobic Blood Culture Pending Received 09/13/17 01:30 Blood Peripheral Anaerobic Blood Culture Pending Received 09/12/17 06:00 Respiratory MRSA Surveillance Culture - Preliminary NO MRSA ISOLATED Resulted 09/12/17 06:00 Sputum Endotracheal Gram Stain - Final Resulted 09/12/17 06:00 Sputum Culture - Preliminary Gram Negative Adan Resulted 09/12/17 06:00 Urine Catheterized Urine Urine Culture - Preliminary NO GROWTH IN 24 HOURS. Resulted Imaging Last [address] 09/13/17 0800 Signed Impressions: Service Date/Time: Wednesday, September 13, 2017 09:17 - CONCLUSION: 1. Resolving left basal ganglia hematoma Natan Lagos MD Chest CT 09/13/17 0000 Signed Impressions: Service Date/Time: Wednesday, September 13, 2017 09:28 - CONCLUSION: 1. Bibasilar and left lingular dependent atelectatic changes. Lungs are otherwise clear. 2. Tracheostomy tube with the tip probably positioned above the connie. 3. Compensated cardiomegaly. Reyes Guzman MD Abdomen/Pelvis CT 09/13/17 0000 Signed Impressions: Service Date/Time: Wednesday, September 13, 2017 09:28 - CONCLUSION: 1. There is some stranding in the retroperitoneal perivascular tissues around the distal aorta extending into the bifurcation with a regional borderline lymph nodes. Findings are characteristic of a nonspecific inflammatory process. Findings could represent early retroperitoneal fibrosis.. 2. Urinary bladder is decompressed with some mural thickening in pericystic inflammatory changes possibly representing a chronic cystitis. Nondependent air could be associated with a recent catheterization/instrumentation. 3. Small umbilical and right inguinal hernias only contain fat. 4. Bilateral dependent basilar and left lingular atelectatic changes. Heart size is borderline prominent. 5. Otherwise , bowel is intact without obstruction to explain abdominal distention Reyes Guzman MD Chest X-Ray 09/12/17 0000 Signed Impressions: Service Date/Time: Tuesday, September 12, 2017 23:39 - CONCLUSION: No acute disease. Angelo Conn MD Procedures * 08/28/17 -endotracheal intubation * 08/31/17 -therapeutic bronchoscopy * 09/06/17 -PEG tube placement * 09/08/17 -tracheostomy . (Soniya Elliott) Assessment and Plan Disease Oriented Problem List: (1) Hemorrhagic stroke (2) Intracranial hemorrhage (3) Hypertensive emergency (4) Acute kidney injury (5) Acute encephalopathy Symptom Scale: (1) Dyspnea 0-10 Scale: Unable to quantify Comment: Secondary to acute respiratory failure. Remains intubated on mechanical ventilation. (2) Pain 0-10 Scale: Unable to quantify Comment: On fentanyl drip. Pertinent Non-Medical Issues Psychosocial: Patient originally from [facility]. He is the youngest of 4 siblings. High school education. Worked in his [employer]. 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 Patient is , has 4 children. No service. Spiritual: Pentecostal lenny. Legal: No advance directives completed as per patient's family. Ethical issues impacting care: Patient unable to participate in medical decision -making secondary to clinical condition. 3 adult children serving as healthcare proxy decision makers. . Important Contacts Daughter Shannan Matos , Daughter Nichole Matos Son Hadley Matos Ex- (mother of his children) Janet Matos . Patient's father Jem Matos . . Prognosis Mr. Matos is a 46-year-old male with a medical history significant for TIA, uncontrolled hypertension and migraines. Patient presented to ED via EMS on as stroke alert. Patient was last seen with normal neurological function approximately 3-1/2 hours prior to ED arrival. Upon ED arrival, GCS of 7, blood pressure 238/153. He subsequently had a vomiting episode requiring emergent intubation and mechanical ventilation. Head CT revealing acute hemorrhaic stroke in the right thalamus with extension of the lateral third ventricles with a shift onto the right side of 6 mm. chest x-ray revealing left lower lobe consolidation and patchy infiltrates in the central right lung. Clinical course complicated by acute encephalopathy, acute hypoxemic and hypercarbic respiratory failure and acute kidney injury. Patient remains a high risk for further complications, continue decline and . Condition guarded at this time. . Code Status: Full Code Plan * CODE STATUS: Full code. * HEALTHCARE DECISION-MAKING: Patient lacking capacity for medical decision- making secondary to clinical condition , encephalopathy, intubated on mechanical ventilation. Not likely to regain capacity giving brain bleed. No advance directives completed as per patient's family. Patient is . As per [place] law, healthcare proxy decision making falls to the majority of patient's adult children for which he has 3 (4th child is 4 years old). Daughters Shannan and Nichole and son Hadley Cuellar All wishing to participate. * GOALS OF CARE: Family electing for aggressive medical management to include FULL code. Gently discussed with family that patient's overall prognosis for a meaningful recovery remains guarded. Gently shared concerns with daughter Shannan of patient's overall clinical condition, specifically no neuro improvement s/p 2 days off sedation. Reviewed that patient remains at a very high risk for further complications, continue decline and . Long-term plans for this patient are impacted by his psychosocial situation, he has no payor source or coverage for acute rehabilitation/long-term placement. * SYMPTOMS: = Dyspnea, secondary to acute respiratory failure. Patient underwent tracheostomy placement on 09/08/17. Patient back on full vent support. = Pain: Secondary to intubation, medical interventions, bedbound. Currently on oxycodone 5 mg every 4 hours. = Bowels: MiraLAX, lactulose and Melina -Colace [id number]. Dulcolax suppository available. = Restlessness/ agitation: Seroquel and Haldol discontinued secondary to concerns for neuroleptic malignant syndrome. * Case discussed with Dr. Pierre and bedside RN. * Ongoing emotional support and active listening provided. Spiritual services offered and declined. * Palliative care contact information has been provided to patient's family. * Palliative care will continue to follow-up for further clarifications of goals of care, provide emotional support as patient's clinical course continues to evolve. . (Soniya Elliott) Time Spent Total Floor Time (mins): 33 (Total time to include review medical records, physical exam, goals of care conversation with patient's daughter Shannan, case discussion with Dr. Pierre and bedside RN.) >50% Counseling/Coord of Care: Yes (Soniya Elliott) Collaborating MD Comments Chart reviewed. Case discussed with palliative care PROTECTION SPECIALIST. Above PROTECTION SPECIALIST note reviewed and I concur. . (Harper,Soniya Wilder PROTECTION SPECIALIST Sep 13, 2017 15:29 Noel Harper MD Oct 17, 2017 08:41
[2017-09-13] MEDS: ATORVASTATIN 40 MG TAB PO SCH (20:21)
[2017-09-14] VITALS (17 sets, daily range): BP systolic 128–158; BP diastolic 71–94; PULSE 84–104; RESP 16–19; TEMP 100.1–101.7; O2SAT 98–100
[2017-09-14] MEDS: FREE WATER G-TUBE SCH ×5 (04:00→20:00)
[2017-09-14] MEDS: CHLORHEXIDINE GLUCONATE 2 % 1 PACK (2 CLOTHS) TOP SCH (04:00)
[2017-09-14] MEDS: PIPERACIL-TAZO 2.25 GM PREMIX 50 ML IV SCH ×4 (04:19→20:24)
[2017-09-14] MEDS: oxyCODONE HCL ORAL CONC 5 MG/0.25 ML SYRINGE PO SCH ×5 (04:22→20:20)
--- NOTE | 2017-09-14 04:55 | RADRPT ---
EXAM DATE/TIME: 09/14/2017 03:56 [facility] COMPARISON: CHEST SINGLE AP, September 12, 2017, 23:39. INDICATIONS : Respiratory failure. MEDICAL HISTORY : Hypertension. SURGICAL HISTORY : None. ENCOUNTER: Subsequent ACUITY: 4 - 6 days PAIN SCORE: Non-responsive. LOCATION: Bilateral chest FINDINGS: A single view of the chest demonstrates the lungs to be symmetrically aerated without evidence of mas s, infiltrate or effusion. The heart size remains prominent with no perihilar edema. The tracheostom y tube remains in place. There are overlying electrocardiogram leads and oxygen tubing. Osseous struc tures are intact. CONCLUSION: Stable appearance. Angelo Conn MD on September 14, 2017 at 4:52 Board Certified Radiologist. This report was verified electronically.
[2017-09-14] MEDS: PROPRANOLOL HCL 10 MG TAB PO SCH ×3 (05:49→17:19)
[2017-09-14] MEDS: cloNIDine HCL 0.3 MG TAB PO SCH ×3 (05:49→20:20)
[2017-09-14] MEDS: INSULIN NovoLIN REGULAR SUPPLEMENTAL SCALE SQ SCH ×3 (06:10→17:20)
[2017-09-14] MEDS: hydrALAZINE HCL 20 MG/ML VIAL IV PUSH PRN ×2 (06:10→10:45)
--- NOTE | 2017-09-14 06:49 | MG ---
cc: RAUL BLUNT MD Lab No: [id number]- Date: 22/01/2017 Age: 46 Sex: M Race: ____ DATE OF [birth year][address] Asif MEDICAL HISTORY 1. Hypertension 2. Migraine headache 3. Stroke 4. Alcohol and caffeine use. 5. Chest GERD He presented to the ED as a stroke alert, right-sided weakness and facial droop. Blood pressure 260/130. MEDICATIONS 1. Vancomycin 2. Nicardipine 3. Heparin 5. Oxycodone 6. Inderal 7. Clonidine 8. Hydralazine 9. Lipitor 10. Norvasc 11. Tylenol DESCRIPTION The EEG recording is excessively contaminated with movement and muscle artifact. In the readable portion of the EEG there is mild slowing of the background activity at 5-6 Hertz theta. Hyperventilation was omitted. Photic stimulation did not elicit a driving response. In the readable portion of the EEG there were no electrographic seizures or epileptiform discharges noted. INTERPRETATION: There is excessive technical errors that make the recording a less yield to interpret. There is a lot of excessive muscle and movement artifact. In the readable portion of the EEG, there were no electrographic seizures or epileptiform discharges noted. There is background slowing that may indicate an encephalopathic pattern. Clinical correlation is recommended. MD KALEIGH Corey/LESLY /8:25 PM /6:36 AM [facility]ENTER[facility]ing
[2017-09-14 06:55] LABS: AUTOMATED NEUTROPHIL # 15.4 TH/MM3 (1.8-7.7); BASOPHIL # 0.1 TH/MM3 (0-0.2); BASOPHIL % 0.7 % (0.0-2.0); EOSINOPHIL # 0.3 TH/MM3 (0-0.4); EOSINOPHIL % 1.7 % (0.0-4.0); HEMATOCRIT 32.3 % (39.0-51.0); LYMPH % 4.8 % (9.0-44.0); LYMPHOCYTE # 0.9 TH/MM3 (1.0-4.8); MEAN CELL VOLUME 83.3 FL (80.0-100.0); MEAN CORPUSCULAR HGB CONC 31.2 % (32.0-36.0); MEAN PLATELET VOLUME 10.4 FL (7.0-11.0); MONO % 9.2 % (0.0-8.0); MONOCYTE # 1.7 TH/MM3 (0-0.9); NEUT % 83.6 % (16.0-70.0); PLATELET COUNT 386 TH/MM3 (150-450); RED BLOOD COUNT 3.87 MIL/MM3 (4.50-5.90); RED CELL DISTRIBUTION WIDTH 15.3 % (11.6-17.2); WHITE BLOOD COUNT 18.4 TH/MM3 (4.0-11.0)
[2017-09-14 07:21] LABS: ALBUMIN 1.8 GM/DL (3.4-5.0); ALT (GPT) 129 U/L (12-78); AST (GOT) 87 U/L (15-37); BICARBONATE 31.5 MEQ/L (21.0-32.0); BLOOD UREA NITROGEN 50 MG/DL (7-18); CALCIUM 8.7 MG/DL (8.5-10.1); CHLORIDE 108 MEQ/L (98-107); CREATININE 2.58 MG/DL (0.60-1.30); GLOMERULAR FILTRATION RATE 33 ML/MIN (>89); GLUCOSE,RANDOM 209 MG/DL (74-106); SODIUM (NA) 147 MEQ/L (136-145)
[2017-09-14 07:23] LABS: ALKALINE PHOSPHATASE 104 U/L (45-117); RANDOM VANCOMYCIN 9.6 COMMENT; TOTAL BILIRUBIN ADULT 0.4 MG/DL (0.2-1.0); TOTAL PROTEIN 7.2 GM/DL (6.4-8.2)
[2017-09-14] MEDS: CHLORHEXIDINE 0.12% (ORAL KIT) 15 ML CUP MT SCH ×2 (07:50→20:00)
[2017-09-14] MEDS: FLUTICASONE PROPIONATE 50 MCG/ACT 16 GM NASAL SPRAY EACH NARE SCH (07:50)
[2017-09-14] MEDS: DOCUSATE SODIUM 50 MG/SENNA 8.6 MG TAB PO SCH ×2 (07:51→20:20)
[2017-09-14] MEDS: FAMOTIDINE 20 MG TAB NG SCH ×2 (07:51→20:20)
[2017-09-14] MEDS: HEPARIN SODIUM - SQ 10,000 UNITS/ML VIAL SQ SCH ×2 (07:51→20:20)
[2017-09-14] MEDS: POLYETHYLENE GLYCOL 17 GM PKG PO SCH ×2 (07:53→20:20)
--- NOTE | 2017-09-14 07:54 | HHI.NPPN ---
Subjective Renal Failure: Acute Additional Remarks Renal function is improving. Febrile. Notes were reviewed. He is on Vancomycin and Zosyn. Neuroleptic malignant syndrome and serotonin syndrome are also in differential. Review of Systems General General Remarks unable to obtain Objective Data Data Vital Signs Date Time Temp Pulse Resp B/P (MAP) Pulse Ox O2 Delivery O2 Flow Rate FiO2 09/14/17 06:00 96 09/14/17 04:21 100 40 09/14/17 04:00 98 09/14/17 04:00 40 09/14/17 04:00 101.7 98 17 132/71 (91) 100 09/14/17 02:00 92 09/14/17 01:09 99 40 09/14/17 00:00 40 09/14/17 00:00 101.2 99 19 133/86 (102) 100 09/14/17 00:00 99 09/13/17 22:00 89 09/13/17 21:03 99 40 09/13/17 20:00 101.3 09/13/17 20:00 40 09/13/17 20:00 82 09/13/17 20:00 101.3 87 16 117/68 (84) 99 09/13/17 19:30 40 09/13/17 19:00 100 Mechanical Ventilator 40 09/13/17 18:00 83 09/13/17 16:56 16 09/13/17 16:51 99 40 09/13/17 16:00 96 09/13/17 16:00 101.2 96 20 127/68 (87) 99 09/13/17 14:00 88 09/13/17 13:47 86 103/58 09/13/17 13:07 99 40 09/13/17 12:00 101.6 102 17 115/58 (77) 99 09/13/17 12:00 102 09/13/17 12:00 102 115/58 09/13/17 11:53 16 09/13/17 10:51 109 138/62 09/13/17 10:00 112 09/13/17 09:00 100 100 09/13/17 08:00 101.7 106 21 134/63 (86) 98 09/13/17 08:00 106 -: 09/14/17 0615 09/14/17 0615 Tubes & Lines: Coleman Tubes & Lines Comment PEG, trach Drip Comment fentanyl, propofol Physical Exam General Appearance: No Acute Distress Neck Neck Exam: Neck Supple Pulmonary Resp Exam: Clear Bilaterally, Breath Sounds Equal Resp Remarks vented breath sounds. Cardiology CV Exam: Regular, Normal Sinus Rhythm Gastrointestinal/Abdomen GI Exam: Soft, Non-Tender, Bowel Sounds Present, Positive Bowel Movement, Distended GI Remarks obese. On TF Genitourinary Exam: Clear Urine Musculoskeletal MS Exam: Joints Intact, Normal Tone, Unable to Ambulate Extremeties Extremities Exam: Moderate Edema Neurologic Neuro Exam: Unresponsive, Sedated Assessment/Plan Discussed Condition With: Relative Assessment Summary: Hypertension Electrolyte Assessment: Hypokalemia Problem List: (1) Acute kidney injury ICD Codes: N17.9 - Acute kidney failure, unspecified Status: Acute Plan: Baseline creatinine around 2. He most likely has underlying CKD. RAFAELA most likely due to renal hypoperfusion resulting from normalization of BP. Improving renal function , no need for dialysis. Non oliguric. Avoid IVF, nephrotoxic agents. Continue to replace potassium as needed. (2) Hemorrhagic stroke ICD Codes: I61.9 - Nontraumatic intracerebral hemorrhage, unspecified Status: Acute Plan: Neurosurgery has followed, serial imaging reviewed. Non surgical management at this time. S/P PEG and tracheostomy Palliative is following, meaningful recovery is questionable. (3) Hypertension ICD Codes: I10 - Hypertension Status: Chronic Plan: BP improved. Continue oral medications. Monitor and titrate to effect. (4) Sepsis ICD Codes: A41.9 - Sepsis, unspecified organism Status: Resolved Plan: Febrile. On Vancomycin and Zosyn. See above. Adolph Rachel MD Sep 14, 2017 07:54
[2017-09-14] MEDS: INSULIN DETEMIR 100 UNITS/ML VIAL SQ SCH ×2 (10:20→20:50)
[2017-09-14] MEDS: MORPHINE SULFATE 4 MG/ML INJ IV PUSH PRN (10:45)
--- NOTE | 2017-09-14 10:59 | HHI.NSPN ---
(RamaJames) History Chief Complaint: Unable to obtain due to patient's clinical condition. (RamaJames) Interval History 08/29: History of hypertension who was brought to the emergency room per [facility] after being found with altered mental status, right hemiparesis. He had reportedly been seen to be normal approximately 3-1/2 hours prior. Systolic blood pressure greater than 260/130 on initial evaluation. No seizure activity reported. Positive emesis. Per emergency room personnel the patient was responding verbally, difficulty raising his right arm upon initial arrival. He was intubated in the emergency room and a stat CT scan accomplished which has revealed a primarily left thalamic intracranial hemorrhage. 09/01/17: Patient remains intubated and sedated. 09/02: intubated and well sedated, not tolerating sedation vacation due to increase in blood pressure. 09/03/17: Remains on propofol and fentanyl IV for ventilator control. Positive agitation with decreased sedation 09/04/17: Pt sedated on Diprivan and Fentanyl drip. Not following commands. Pt on Cardene drip. Intubated. 09/05/17: Pt sedated on Diprivan and Fentanyl drip. Not following commands. Pt on Cardene drip. Intubated. Pupils 2mm bilaterally, NR bilaterally. 09/06/17: Remains intubated. PEG tube placed today. On Decadron and Benadryl for angioedema. Lisinopril discontinued 09/07. The patient is obtunded but is sedated with propofol. Nursing reports that the patient does have bleeding secondary to his PEG tube being placed yesterday. The family reports that the plan is to do a tracheostomy tomorrow. Nursing does say the patient does withdraw to stimulation, has a cough and gag reflex but his pupils are nonreactive. 09/10: The patient continues to be obtunded although he has sedation infusing at a low dose. He is trached and tolerating a CPAP trial. 09/13: Obtunded versus lethargic. He is not on any sedation. He is trached and mechanically ventilated. He went for a CT brain this morning. Nursing reports that the patient does withdraw to noxious stimulation and that the pupils are sluggish. 09/14: The patient has his eyes open when seen. He continues to be trached and mechanically ventilated. Nursing this morning reports that the patient gave a thumbs up on the left hand to command for him. (James Ontiveros) System Review Comments Unable to obtain due to patient's clinical condition. (James Ontiveros) Exam Results 09/12/17 09/12/17 09/13/17 09/13/17 09/14/17 09/14/17 06:00 18:00 06:00 18:00 06:00 18:00 Intake Total 689 ml 720 ml 1265 ml 2077 ml 1272 ml Output Total 1250 ml 1050 ml 1450 ml 1200 ml 1300 ml Balance -561 ml -330 ml -185 ml 877 ml -28 ml Intake Oral 720 ml IV Total 270 ml 1184 ml 100 ml Tube Feeding 439 ml 595 ml 233 ml 572 ml Other 250 ml 400 ml 660 ml 600 ml Output Urine Total 1250 ml 1050 ml 1450 ml 1200 ml 1300 ml # Bowel Movements 0 1 0 0 0 Vital Signs Date Time Temp Pulse Resp B/P (MAP) Pulse Ox O2 Delivery O2 Flow Rate FiO2 09/14/17 10:00 104 09/14/17 08:31 100 40 09/14/17 08:31 99 Ventilator 40 09/14/17 08:00 101.1 98 17 132/71 (91) 100 09/14/17 08:00 40 09/14/17 08:00 98 09/14/17 07:00 99 Mechanical Ventilator 40 09/14/17 06:00 96 09/14/17 04:21 100 40 09/14/17 04:00 98 09/14/17 04:00 40 09/14/17 04:00 101.7 98 17 132/71 (91) 100 09/14/17 02:00 92 09/14/17 01:09 99 40 09/14/17 00:00 40 09/14/17 00:00 101.2 99 19 133/86 (102) 100 09/14/17 00:00 99 09/13/17 22:00 89 09/13/17 21:03 99 40 09/13/17 20:00 101.3 09/13/17 20:00 40 09/13/17 20:00 82 09/13/17 20:00 101.3 87 16 117/68 (84) 99 09/13/17 19:30 40 09/13/17 19:00 100 Mechanical Ventilator 40 09/13/17 18:00 83 09/13/17 16:56 16 09/13/17 16:51 99 40 09/13/17 16:00 96 09/13/17 16:00 101.2 96 20 127/68 (87) 99 09/13/17 14:00 88 09/13/17 13:47 86 103/58 09/13/17 13:07 99 40 09/13/17 12:00 101.6 102 17 115/58 (77) 99 09/13/17 12:00 102 09/13/17 12:00 102 115/58 09/13/17 11:53 16 09/13/17 10:51 109 138/62 09/13/17 10:00 112 09/13/17 09:00 100 100 09/13/17 08:00 101.7 106 21 134/63 (86) 98 09/13/17 08:00 106 09/13/17 07:26 100 40 09/13/17 07:26 100 Ventilator 40 09/13/17 07:00 98 Mechanical Ventilator 40 09/13/17 06:03 96 130/59 09/13/17 06:00 94 09/13/17 04:02 97 40 09/13/17 04:00 102.3 115 20 167/87 (113) 98 09/13/17 04:00 115 09/13/17 03:30 112 187/83 09/13/17 03:00 103.5 112 21 187/95 (125) 99 09/13/17 02:56 112 185/91 09/13/17 02:00 120 09/13/17 00:36 100 50 09/13/17 00:30 104.8 113 185/98 (127) 98 09/13/17 00:00 104.7 09/13/17 00:00 104.8 115 26 222/121 (154) 98 09/13/17 00:00 115 09/13/17 00:00 40 09/12/17 23:00 103.2 125 172/107 (128) 09/12/17 22:00 103.1 107 149/100 (116) 09/12/17 22:00 107 09/12/17 21:15 99 189/98 (128) 09/12/17 21:00 99 189/98 (128) 09/12/17 20:52 97 T-piece 35 09/12/17 19:00 T-Piece 35 09/12/17 18:00 101.6 96 30 161/86 (111) 09/12/17 18:00 96 09/12/17 16:00 95 09/12/17 14:00 91 09/12/17 12:00 95 09/12/17 12:00 101.2 96 19 165/84 (111) 92 09/12/17 10:00 98 09/12/17 08:00 101.0 95 18 147/82 (103) 96 09/12/17 08:00 95 09/12/17 07:37 95 T-piece 28 09/12/17 07:00 100 T-Piece 28 09/12/17 06:00 93 09/12/17 04:00 100.8 100 19 183/92 (122) 98 09/12/17 04:00 100 09/12/17 02:00 103 09/12/17 00:00 106 09/12/17 00:00 100.9 101 21 173/94 (120) 98 09/11/17 22:00 106 09/11/17 20:09 97 T-piece 6.00 35 09/11/17 20:00 106 09/11/17 20:00 101.8 106 21 165/92 (116) 98 09/11/17 19:00 T-Piece 40 09/11/17 18:00 95 09/11/17 16:00 101.7 101 24 161/84 (109) 97 09/11/17 16:00 110 09/11/17 14:00 104 09/11/17 12:00 40 09/11/17 12:00 99 09/11/17 12:00 101.0 99 25 165/84 (111) 97 (James Ontiveros) Physical Examination GENERAL: Eyes open, no sedation. He is not in any apparent distress. HEENT: Normocephalic, atraumatic. Pupils 3 mm appear very sluggish. NECK: Tracheostomy, no JVD, trachea midline. MUSCULOSKELETAL: Moves LUE spontaneously & to command, moves BLE to stimulation. No evident deformity or clubbing. NEUROLOGICAL: Awake, GCS 11T (E4 V1T M6). Spontaneous eye opening. Nonverbal, trached. Gave a thumbs up to command w/left thumb, but does not move any other extremities to command. Moved both feet to noxious stimulation. No response w/ RUE. Pupils 3 mm very sluggish. (James Ontiveros) Lab, Micro, Other Results Recent Impressions Chest X-Ray 09/14/17 0600 Signed Impressions: Service Date/Time: Thursday, September 14, 2017 03:56 - CONCLUSION: Stable appearance. Angelo Cnon MD Head CT 09/13/17 0800 Signed Impressions: Service Date/Time: Wednesday, September 13, 2017 09:17 - CONCLUSION: 1. Resolving left basal ganglia hematoma Natan Lagos MD Chest CT 09/13/17 0000 Signed Impressions: Service Date/Time: Wednesday, September 13, 2017 09:28 - CONCLUSION: 1. Bibasilar and left lingular dependent atelectatic changes. Lungs are otherwise clear. 2. Tracheostomy tube with the tip probably positioned above the connie. 3. Compensated cardiomegaly. Reyes Guzman MD Abdomen/Pelvis CT 09/13/17 0000 Signed Impressions: Service Date/Time: Wednesday, September 13, 2017 09:28 - CONCLUSION: 1. There is some stranding in the retroperitoneal perivascular tissues around the distal aorta extending into the bifurcation with a regional borderline lymph nodes. Findings are characteristic of a nonspecific inflammatory process. Findings could represent early retroperitoneal fibrosis.. 2. Urinary bladder is decompressed with some mural thickening in pericystic inflammatory changes possibly representing a chronic cystitis. Nondependent air could be associated with a recent catheterization/instrumentation. 3. Small umbilical and right inguinal hernias only contain fat. 4. Bilateral dependent basilar and left lingular atelectatic changes. Heart size is borderline prominent. 5. Otherwise , bowel is intact without obstruction to explain abdominal distention Reyes Guzman MD Chest X-Ray 09/12/17 0000 Signed Impressions: Service Date/Time: Tuesday, September 12, 2017 23:39 - CONCLUSION: No acute disease. Angelo Conn MD Laboratory Tests Test 09/12/17 01:11 09/12/17 06:00 09/12/17 06:08 09/13/17 01:35 Blood Gas Puncture Site RT RADIAL Blood Gas Patient Temperature 98.6 Blood Gas HCO3 32 mmol/L Blood Gas Base Excess 7.6 mmol/L Blood Gas Oxygen Saturation 96 % Arterial Blood pH 7.48 Arterial Blood Partial Pressure CO2 43 mmHg Arterial Blood Partial Pressure O2 107 mmHg Arterial Blood Oxygen Content 14.6 Vol % Arterial Blood Carboxyhemoglobin 1.1 % Arterial Blood Methemoglobin 1.3 % Blood Gas Hemoglobin 10.7 G/DL Oxygen Delivery Device VENTILATOR Blood Gas Ventilator Setting SEE COMMENT Blood Gas Inspired Oxygen 40 % Urine Color YELLOW Urine Turbidity HAZY Urine pH 6.5 Urine Specific [place] 1.018 Urine Protein 100 mg/dL Urine Glucose (UA) 300 mg/dL Urine Ketones NEG mg/dL Urine Occult Blood MOD Urine Nitrite NEG Urine Bilirubin NEG Urine Urobilinogen LESS THAN 2.0 MG/DL Urine Leukocyte Esterase NEG Urine RBC 166 /hpf Urine WBC 8 /hpf Urine Squamous Epithelial Cells 1 /hpf Urine Transitional Epithelial Cells <1 /hpf Urine Amorphous Sediment RARE Urine Bacteria FEW /hpf Urine Hyaline Casts 1 /lpf Urine Mucus FEW /lpf Microscopic Urinalysis Comment CATH-CULTURE IND White Blood Count 15.6 TH/MM3 23.3 TH/MM3 Red Blood Count 3.90 MIL/MM3 4.13 MIL/MM3 Hemoglobin 10.0 GM/DL 11.1 GM/DL Hematocrit 32.4 % 34.2 % Mean Corpuscular Volume 83.2 FL 82.9 FL Mean Corpuscular Hemoglobin 25.7 PG 26.9 PG Mean Corpuscular Hemoglobin Concent 30.9 % 32.5 % Red Cell Distribution Width 15.0 % 15.0 % Platelet Count 324 TH/MM3 359 TH/MM3 Mean Platelet Volume 9.6 FL 10.4 FL Blood Urea Nitrogen 47 MG/DL 49 MG/DL Creatinine 2.88 MG/DL 2.85 MG/DL Random Glucose 247 MG/DL 226 MG/DL Calcium Level 8.6 MG/DL 8.9 MG/DL Sodium Level 147 MEQ/L 147 MEQ/L Potassium Level 3.4 MEQ/L 3.8 MEQ/L Chloride Level 110 MEQ/L 108 MEQ/L Carbon Dioxide Level 32.2 MEQ/L 33.9 MEQ/L Anion Gap 5 MEQ/L 5 MEQ/L Estimat Glomerular Filtration Rate 29 ML/MIN 29 ML/MIN Total Bilirubin 0.5 MG/DL Direct Bilirubin 0.2 MG/DL Indirect Bilirubin 0.3 MG/DL Aspartate Amino Transf (AST/SGOT) 114 U/L Alanine Aminotransferase (ALT/SGPT) 163 U/L Alkaline Phosphatase 102 U/L Total Creatine Kinase 498 U/L Creatine Kinase MB 0.6 NG/ML Creatine Kinase MB % 0.1 % Total Protein 7.8 GM/DL Albumin 2.2 GM/DL Test 09/13/17 13:45 09/14/17 06:15 Total Creatine Kinase 358 U/L Creatine Kinase MB 0.8 NG/ML Creatine Kinase MB % 0.2 % White Blood Count 18.4 TH/MM3 Red Blood Count 3.87 MIL/MM3 Hemoglobin 10.0 GM/DL Hematocrit 32.3 % Mean Corpuscular Volume 83.3 FL Mean Corpuscular Hemoglobin 26.0 PG Mean Corpuscular Hemoglobin Concent 31.2 % Red Cell Distribution Width 15.3 % Platelet Count 386 TH/MM3 Mean Platelet Volume 10.4 FL Neutrophils (%) (Auto) 83.6 % Lymphocytes (%) (Auto) 4.8 % Monocytes (%) (Auto) 9.2 % Eosinophils (%) (Auto) 1.7 % Basophils (%) (Auto) 0.7 % Neutrophils # (Auto) 15.4 TH/MM3 Lymphocytes # (Auto) 0.9 TH/MM3 Monocytes # (Auto) 1.7 TH/MM3 Eosinophils # (Auto) 0.3 TH/MM3 Basophils # (Auto) 0.1 TH/MM3 CBC Comment DIFF FINAL Differential Comment Blood Urea Nitrogen 50 MG/DL Creatinine 2.58 MG/DL Random Glucose 209 MG/DL Total Protein 7.2 GM/DL Albumin 1.8 GM/DL Calcium Level 8.7 MG/DL Alkaline Phosphatase 104 U/L Aspartate Amino Transf (AST/SGOT) 87 U/L Alanine Aminotransferase (ALT/SGPT) 129 U/L Total Bilirubin 0.4 MG/DL Sodium Level 147 MEQ/L Potassium Level 3.5 MEQ/L Chloride Level 108 MEQ/L Carbon Dioxide Level 31.5 MEQ/L Anion Gap 8 MEQ/L Estimat Glomerular Filtration Rate 33 ML/MIN Random Vancomycin Level 9.6 COMMENT (James Ontiveros) Medical Decision Making Impression and Plan Impression: 1. Large thalamic intracranial hemorrhage. Awake, gave thumbs up to command & moved both feet to noxious stimulation. CT brain w/improvement of left thalamic haemorrhage, decreased midline shift, blood noted in posterior horns, no acute findings. Reviewed labs for today. Decrease in leukocytosis. Sodium 147. Blood cultures pending. Urine culture w/no growth in 48 hours, final report. Plan: Discussed plan of care with Nursing. Primary management per Store Receiving Specialist. Neuro checks. Palliative Care consult. Continue full supportive care measures per family. (James Ontiveros) Attending Statement The exam, history, and the medical decision-making described in the above note were completed with the assistance of the mid-level provider. I reviewed and agree with the findings presented. I attest that I had a [id number] encounter with the patient on the same day, and personally performed and documented my assessment and findings in the medical record. (Genaro Jhaveri MD) James Ontiveros Sep 14, 2017 10:59 Genaro Jhaveri MD Sep 14, 2017 21:19
[2017-09-14] MEDS ORDERED: VANCOMYCIN INJ 2,500 MG in SODIUM CHLORID 0.9% 500 ML INJ 500 ML IV ONE (12:00)
[2017-09-14] MEDS: ACETAMINOPHEN 325 MG TAB PO PRN (12:28)
--- NOTE | 2017-09-14 14:43 | HHI.CCPN ---
Subjective Remarks/Hospital Course Hospital Course: 46 y/o man with longstanding hypertension and previous CVA presents obtunded with new neurological symptoms noticed prior to arrival. Timeline unclear. Required intubation in ED for airway protection. CT head shows left thalamic bleed and shift away from bleed. Toxicology screen pending. Subjective: 08/30: encephalopathy persists. bp under better control, still on cardene. on sedation vacation, moves left side spontaneously but nothing on right. 08/31: overnight, severely agitated, requiring high dose sedation. also, lambert obstructed, new lambert placed with improvement in obstruction. this morning, RAFAELA with Cr up to 3. urine Na < 10, suggestive of pre-renal etiology. continued ivf. high peak pressures on vent. suction lavage with thick tenacious secretions. bronch with left lobe mucous plugging. bronchospasm a significant problem requiring iv magnesium and duonebs. finally attempted small paralytic dose with improvement in abdominal breathing and fighting ventilator. 09/01: No improvement in neuro exam, intermittent jerking movements noted by the RN no seizure. Creatinine for urine output adequate. I have consulted nephrology. We'll check CT of the head repeat EEG tomorrow a.m. 09/02: Clinically remains same. Did not tolerate sedation vacation, became hypertensive. CT head today showed slight improvement in L thalamic and IVH. Dr. Tinajero is the neurosurgeon, Dr. Jhaveri covering 09/03: Still unable to tolerate sedation vacation. Becomes very asynchronous with the vent with desaturations. Discussed with daughters about possible tracheostomy, they want to discuss with their mom, patient's ex -. Creatinine has worsened to 5.1 but no acute indication for dialysis. Will check ABG urine output 1.8 L in 24 hours 09/04: Remains intubated sedated synchronous with the vent. Noted to have tongue swelling/angioedema. Lisinopril discontinued. Placed on Decadron and IV Benadryl. Plan for tracheostomy and PEG tube placement next week 09/05: Patient remains intubated sedated critically ill. No change or improvement in neuro status. Lisinopril discontinued yesterday Decadron and Benadryl started tongue swelling is improved. Hyperglycemia secondary to Decadron, random blood sugar 360. Will wean to DC. Plan for trach and PEG this week, if family agreeable 09/06: Angioedema improving with Decadron and Benadryl. Still gets very agitated with sedation lightening. Needs improved blood pressure control increase clonidine to 0.3 every 8 hours. Plan for PEG today and Trach 09/08/1709/07: Stable overnight, except bleeding/oozing from the PEG site. We'll give single dose of nasal DDAVP. Creatinine slightly improved to 4.4, urine output 3.9 L in 24 hours. Plan for tracheostomy 09/08/17. 09/08: Tracheostomy completed. Tongue edema unchanged. 09/09: Tolerating spontaneous respiration on trach. Tongue edema persists. 09/10: Tolerating progression to trach collar today. 09/11: t-piece x 24h. still not waking up and encephalopathic. however, not agitated. still hypertensive, tachycardic. will need placement. Cr continues to improve. still hypernatremic. 09/12: delayed note entry. seen around 1300 on 09/12. wbc slightly up, fever curve uptrending, but has history of fevers likely from thalamic stroke. sputum , urine cultures sent at 0600. will await these results before deciding further courses of action. still on t-piece and no overall clinical change. 09/13: Overnight events noted, febrile to 105, with tremor, clonus, rigidity. given dantrolene for possible NMS by Dr. Asif and stopped Haldol and Seroquel. Provigil also stop due to possibility of serotonin syndrome. Patient was started on Zosyn and vancomycin and panculture sent, and placed on full vent support due to tachypnea. Temp came down to 101 (his baseline) after dantrolene one dose. On my exam at this time patient does not have a rigidity and blood temperatures 101. Nursing staff reports thick yellow secretions, chest x-ray shows possible left lower lobe infiltrate. WBC increased from 15.5 to 23.3. I will get the CT of the chest to evaluate for lung infiltrate and also CT abdomen and pelvis to rule out any intra-abdominal source of sepsis. Hold off on Ativan at this time. Patient is also getting a CT of the head 09/14: Patient continues to spike fever but at baseline. WBC count is trending down (23.3 to 18.4). Sputum culture growing Klebsiella. Opens eyes spontaneously today. Weakly give thumbs up to the RN (I did not witness it) Objective Vital Signs Date Time Temp Pulse Resp B/P (MAP) Pulse Ox O2 Delivery O2 Flow Rate FiO2 09/14/17 12:00 101.5 102 17 158/94 (115) 99 09/14/17 12:00 40 09/14/17 08:31 Ventilator 09/11/17 20:09 6.00 Intake and Output 09/14/17 09/14/17 09/15/17 08:00 16:00 00:00 Intake Total 1222 ml 50 ml Output Total 1300 ml Balance -78 ml 50 ml Result Diagram: 09/14/17 0615 09/14/17 0615 Other Results Microbiology Date/Time Source Procedure Growth Status 09/12/17 06:00 Respiratory MRSA Surveillance Culture - Final NO MRSA ISOLATED Complete 09/12/17 06:00 Sputum Endotracheal Gram Stain - Final Complete 09/12/17 06:00 Sputum Culture - Final Klebsiella Pneumoniae Complete 09/12/17 06:00 Urine Catheterized Urine Urine Culture - Final NO GROWTH IN 48 HOURS. Complete Objective Remarks Gen: middle-aged male, lying in bed, encephalopathic, on ventilator support support. Head: Atraumatic. Conjunctivae clear. ENT: Tongue swollen/angioedema with laceration from bite, improving swelling Neck: Supple, trach site clean, dry. Lungs: PRVC/AC, tachypneic. equal chest rise. Coarse rhonchi and crackles bilaterally Heart: Tachycardic, RR. Intermittently hypertensive. Abdomen: Mildly distended. PEG site clean. Extremities: Warm, well perfused. Neuro: Opens eyes spontaneously today, Followed command to RN by giving thumbs up on right, Squeezed my hand weakly. w/d to pain left UE and bilateral LE. pupils equal, round A/P Problem List: (1) Intracranial hemorrhage ICD Code: I62.9 - Nontraumatic intracranial hemorrhage, unspecified Status: Acute (2) Hemorrhagic stroke ICD Code: I61.9 - Nontraumatic intracerebral hemorrhage, unspecified Status: Acute (3) Hypertensive emergency ICD Code: I10 - Hypertensive emergency Status: Acute Assessment and Plan Assessment: 46yM with left thalamic hypertensive hemorrhagic IPH, ICH score 2. remains off pathway, poor neurologic exam. wean off all sedatives. work towards controlling delirium. needs placement, but funding issues will be a problem. has history of fevers, likely secondary to thalamic bleed, but with rising wbc, will check cultures. if clinically declines, would start empiric abx. Active Problems: Acute encephalopathy - persistent. Left Thalamic Hemorrhage, with IV extension Intracerebral Hemorrhage, ICH score 2 Respiratory failure requiring vent support due to increased work of breathing Healthcare associated pneumonia Sepsis Possible NMS Fever central vs infectious Hypertensive Emergency- resolved. Agitated Delirium - resolved. 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 - resolving. Hyperglycemia Hypertension Hypernatremia Hypoactive delirium Plan: NEURO: - Seroquel and Haldol discontinued due to possible NMS - Discontinued modafinil 200mg daily due to possibility of serotonin syndrome - oxy to 5mg po q4h - propranolol to 30mg po q6h- increase to to 40 q6hr 09/14 - continue clonidine 0.3 mg tid - Repeat CT of the head improving bleed RESP: - CPAP trial with TP as tolerated - CT of the chest 09/13/17 -LLL infiltrate vs pneumonia - Broad-spectrum antibiotics as below (Zosyn and Vanc) - DuoNeb every 6 hours scheduled and when necessary, ventilator bundle CVS: - Intermittent hypertension now well controlled - Nicardipine to keep systolic blood pressure less than 150, now off - Continue clonidine, amlodipine and propranolol GI: - Status post PEG tube continue tube feeds - Having bowel movements - Free water 200mL per tube q6h - Pepcid per tube /RENAL: - recheck daily sodium on bmp - continue Lambert catheter given prior urinary obstruction and resolving rafaela - Nephrology following, creatinine steadily improving ID - New sepsis with high white count and high fever, most likely secondary to pneumonia - ID consult placed for persistent fever - CT of the chest abdomen pelvis to evaluate for source of sepsis-possible LLL pneumonia - Continue vancomycin and Zosyn - Follow-up on blood urine and sputum culture-Klebsiella in sputum HEME: - Leukocytosis secondary to probable sepsis MSK: - OOB to stretcher chair daily - PT consult ENDO: - Levemir to 12 units SQ q12h - keep med scale q6h SSI PROPH: - sqh 5000 q12h (2 weeks post bleed, stable). Pepcid for GI prophylaxis Level 3 Ladan Pierre MD Sep 14, 2017 14:43
--- NOTE | 2017-09-14 19:32 | MB ---
cc: MIKE HERNDON MD DATE OF CONSULTATION 09/14/[address] Pierre. REASON FOR CONSULTATION Persistent fever. Sepsis versus central. HISTORY OF THE PRESENT ILLNESS This is a 46-year-old black male who was admitted to the hospital on 08/29. The patient was found to have a central nervous system bleed involving the right thalamus and extending into the lateral third ventricle. The patient was intubated after he arrived at the emergency department. He was afebrile on the pharmacy care coordinator hours of 08/29 and later in the day he had a temperature elevation to 100.9 and then he had low-grade fever for the following four days and then intermittent low-grade fever after that. Then on 09/06 he started having a more persistent temperature elevation initially to around 100 degrees and then the temperature started climbing to 101 and then gradually worsening up to 103.1 degrees on 09/12. He went up to 104.8 degrees on 09/13. He has remained afebrile and is currently on a cooling blanket. The patient is sedated. He opens his eyes spontaneously but does not meaningfully interact. I am told by the RN that he moved his thumb on the left hand to command. Culture of the sputum from 09/12 has Klebsiella pneumoniae. Blood cultures from 09/13 have no growth and urine culture from 09/12 has no growth. The patient's white blood cell count is elevated. The white count tanya to 23.3 on 09/13. A chest x-ray shows no evidence of infiltrate or effusion. A chest CT showed bibasilar and left lingular dependent atelectatic changes. CT scan of the abdomen and pelvis showed some stranding in the retroperitoneal perivascular tissues around the distal aorta extending to the bifurcation with original borderline lymph node. CT scan of the head shows resolving left basal ganglia hematoma. The temperature is now consistently elevated at around 101 degrees. PAST MEDICAL HISTORY 1. Hypertension. 2. History of CVA. ALLERGIES NO KNOWN DRUG ALLERGIES. MEDICATIONS 1. Vancomycin, this was given earlier today. 2. Piperacillin / tazobactam. 3. Levemir. 4. Pepcid. 5. Inderal. 6. Lipitor. 7. Norvasc. SOCIAL HISTORY No tobacco. Occasional alcohol. No illicit drugs. FAMILY HISTORY Unable to obtain. REVIEW OF SYSTEMS Unable to obtain. PHYSICAL EXAMINATION GENERAL: This is a moderately obese male who is unresponsive. He is on the ventilator. VITAL SIGNS: Include temperature of 101. Blood pressure 151/90, heart rate 93. Respirations with ventilator. HEENT: Unable to fully assess. The patient cannot cooperate. The sclerae is pale. No icterus. Oropharynx, the patient has marked swelling of the tongue filling the mouth opening. NECK: No adenopathy. Mild swelling. LUNGS: Decreased breath sounds at the bases. HEART: Regular S1-S2 without murmurs. ABDOMEN: Bowel sounds present, soft. No tenderness appreciated. No masses palpable. RECTAL: Not performed. EXTREMITIES: No clubbing or cyanosis. Trace edema of the hands. NEUROLOGIC: Unable to assess. PSYCHIATRIC: Unable to assess. The patient has a condom catheter in place and the urine is clear. LABORATORY DATA WBC 18.4, 83% neutrophils. Platelet count 386. Hemoglobin 10.0. Creatinine 2.58, BUN 50, sodium 147, AST 87, ALT 129. IMPRESSION Persistent fever in a patient with intracranial bleed. Fever very likely a central fever. The patient, however, also has, what appears to be pneumonia due to gram-negative bacteria and elevated white blood cell count. Besides that, no other clear cut etiology of the fever. RECOMMENDATIONS 1. Continue the piperacillin / tazobactam. 2. Monitor the blood cultures. 3. Monitor temperature. 4. Monitor white blood cell count. 5. Monitor for other etiology of the fever. Thank you for this consultation. The patient's progress will be monitored and further recommendations will be made on followup if necessary. Mike Herndon MD FD/NANCY /6:46 PM /6:59 PM
[2017-09-14] MEDS: ATORVASTATIN 40 MG TAB PO SCH (20:24)
[2017-09-15] VITALS (19 sets, daily range): BP systolic 98–148; BP diastolic 51–82; PULSE 83–103; RESP 16–21; TEMP 100.8–102.2; O2SAT 95–100
[2017-09-15] MEDS: oxyCODONE HCL ORAL CONC 5 MG/0.25 ML SYRINGE PO SCH ×6 (00:45→21:00)
[2017-09-15] MEDS: ACETAMINOPHEN 325 MG TAB PO PRN (00:45)
[2017-09-15] MEDS: hydrALAZINE HCL 20 MG/ML VIAL IV PUSH PRN (01:16)
[2017-09-15] MEDS: CHLORHEXIDINE GLUCONATE 2 % 1 PACK (2 CLOTHS) TOP SCH (01:57)
[2017-09-15] MEDS: FREE WATER G-TUBE SCH ×6 (03:02→20:00)
[2017-09-15] MEDS: PIPERACIL-TAZO 2.25 GM PREMIX 50 ML IV SCH ×4 (03:02→21:00)
[2017-09-15] MEDS: INSULIN NovoLIN REGULAR SUPPLEMENTAL SCALE SQ SCH ×4 (05:45→18:18)
[2017-09-15] MEDS: cloNIDine HCL 0.3 MG TAB PO SCH ×3 (05:45→22:00)
[2017-09-15] MEDS: PROPRANOLOL HCL 10 MG TAB PO SCH ×4 (05:46→17:12)
[2017-09-15 07:25] LABS: ALBUMIN 1.6 GM/DL (3.4-5.0); ALT (GPT) 94 U/L (12-78); AST (GOT) 73 U/L (15-37); BICARBONATE 28.7 MEQ/L (21.0-32.0); BLOOD UREA NITROGEN 53 MG/DL (7-18); CALCIUM 8.5 MG/DL (8.5-10.1); CHLORIDE 110 MEQ/L (98-107); CREATININE 2.66 MG/DL (0.60-1.30); GLOMERULAR FILTRATION RATE 32 ML/MIN (>89); GLUCOSE,RANDOM 215 MG/DL (74-106); SODIUM (NA) 146 MEQ/L (136-145)
[2017-09-15 07:27] LABS: ALKALINE PHOSPHATASE 89 U/L (45-117); TOTAL BILIRUBIN ADULT 0.4 MG/DL (0.2-1.0); TOTAL PROTEIN 6.6 GM/DL (6.4-8.2)
[2017-09-15] MEDS: CHLORHEXIDINE 0.12% (ORAL KIT) 15 ML CUP MT SCH ×2 (08:00→20:00)
--- NOTE | 2017-09-15 08:49 | HHI.NPPN ---
Subjective Renal Failure: Acute Additional Remarks Continues to be febrile. Off sedation. On CPAP. Non oliguric. Review of Systems General General Remarks unable to obtain Objective Data Data Vital Signs Date Time Temp Pulse Resp B/P (MAP) Pulse Ox O2 Delivery O2 Flow Rate FiO2 09/15/17 07:50 40 09/15/17 07:50 100 40 09/15/17 06:00 97 09/15/17 04:06 99 40 09/15/17 04:00 40 09/15/17 04:00 101.1 103 16 142/77 (98) 99 09/15/17 04:00 101 09/15/17 02:00 102 09/15/17 01:06 99 40 09/15/17 00:00 40 09/15/17 00:00 94 09/15/17 00:00 102.2 94 21 129/71 (90) 98 09/14/17 20:01 100 40 09/14/17 20:00 40 09/14/17 20:00 84 09/14/17 20:00 100.6 92 16 128/73 (91) 98 09/14/17 19:00 100 Mechanical Ventilator 40 09/14/17 18:00 93 09/14/17 17:41 100 40 09/14/17 16:00 40 09/14/17 16:00 98 09/14/17 16:00 100.1 98 16 151/90 (110) 98 09/14/17 14:00 91 09/14/17 13:28 18 09/14/17 13:28 18 09/14/17 12:00 101.5 102 17 158/94 (115) 99 09/14/17 12:00 102 09/14/17 12:00 40 09/14/17 11:43 99 40 09/14/17 10:50 18 09/14/17 10:00 104 -: 09/14/17 0615 09/15/17 0605 Tubes & Lines: Coleman Tubes & Lines Comment PEG, trach Drip Comment fentanyl, propofol Physical Exam General Appearance: No Acute Distress Neck Neck Exam: Neck Supple Pulmonary Resp Exam: Clear Bilaterally, Breath Sounds Equal Resp Remarks vented breath sounds. Cardiology CV Exam: Regular, Normal Sinus Rhythm Gastrointestinal/Abdomen GI Exam: Soft, Non-Tender, Bowel Sounds Present, Positive Bowel Movement, Distended GI Remarks obese. On TF Genitourinary Exam: Clear Urine Musculoskeletal MS Exam: Joints Intact, Normal Tone, Unable to Ambulate Extremeties Extremities Exam: Moderate Edema Neurologic Neuro Exam: Unresponsive, Sedated Assessment/Plan Discussed Condition With: Relative Assessment Summary: Hypertension Electrolyte Assessment: Hypokalemia Problem List: (1) Acute kidney injury ICD Codes: N17.9 - Acute kidney failure, unspecified Status: Acute Plan: Baseline creatinine around 2. He most likely has underlying CKD. RAFAELA most likely due to renal hypoperfusion resulting from normalization of BP. Non oliguric, creatinine is slightly higher today. Monitor. Carefully monitor Vancomycin dosing, avoid levels above 20. Chose alternative if possible. Continue to replace potassium as needed. (2) Hemorrhagic stroke ICD Codes: I61.9 - Nontraumatic intracerebral hemorrhage, unspecified Status: Acute Plan: Neurosurgery has followed, serial imaging reviewed. Non surgical management at this time. S/P PEG and tracheostomy Palliative is following, meaningful recovery is questionable. (3) Hypertension ICD Codes: I10 - Hypertension Status: Chronic Plan: BP improved. Continue oral medications. Monitor and titrate to effect. (4) Sepsis ICD Codes: A41.9 - Sepsis, unspecified organism Status: Resolved Plan: Febrile. On Vancomycin and Zosyn. Sputum culture from 09/12 grew Klebsiella. Adolph Rachel MD Sep 15, 2017 08:49
[2017-09-15] MEDS: FAMOTIDINE 20 MG TAB NG SCH ×2 (09:20→21:00)
[2017-09-15] MEDS: DOCUSATE SODIUM 50 MG/SENNA 8.6 MG TAB PO SCH ×2 (09:20→21:00)
[2017-09-15] MEDS: POLYETHYLENE GLYCOL 17 GM PKG PO SCH ×2 (09:21→21:00)
[2017-09-15] MEDS: INSULIN DETEMIR 100 UNITS/ML VIAL SQ SCH ×2 (09:21→22:00)
[2017-09-15] MEDS: HEPARIN SODIUM - SQ 10,000 UNITS/ML VIAL SQ SCH ×2 (09:21→21:00)
[2017-09-15] MEDS: FLUTICASONE PROPIONATE 50 MCG/ACT 16 GM NASAL SPRAY EACH NARE SCH (09:21)
[2017-09-15] MEDS: POTASSIUM CHLOR 20 MEQ PREMIX 100 ML IV SCH ×2 (09:35→10:22)
--- NOTE | 2017-09-15 11:50 | HHI.IDPN ---
Note Infectious Disease Note Patient is awake and has eyes open. Appears to be tracking and watching TV. Persistent fever. The patient was found to have a central nervous system bleed involving the right thalamus and extending into the lateral third ventricle. The patient was intubated after he arrived at the emergency department. PAST MEDICAL HISTORY 1. Hypertension. 2. History of CVA. ALLERGIES NO KNOWN DRUG ALLERGIES. ANTIBIOTICS Piperacillin / tazobactam. Current Medications Medications (Trade) Dose Ordered Sig/Hermann Route PRN Reason Start Time Stop Time Status Last Admin Dose Admin Sodium Chloride (NS Flush) 2 ml UNSCH PRN IVF FLUSH AFTER USING IV ACCESS 08/29/17 00:00 Chlorhexidine Gluconate (Peridex 0.12% Liq) 15 ml BID@08,20 MT 08/29/17 08:00 09/15/17 08:00 Labetalol HCl (Trandate Inj) 10 mg Q20M PRN IV PUSH SBP>140, DBP>90 08/29/17 00:45 09/13/17 02:45 Amlodipine Besylate (Norvasc) 10 mg DAILY PO 08/29/17 09:00 09/15/17 09:20 Acetaminophen (Tylenol) 650 mg Q6H PRN PO PAIN 1-5 AND/OR FEVER >101F 08/29/17 00:45 09/15/17 00:45 Morphine Sulfate (Morphine Inj) 2 mg Q2H PRN IV PUSH PAIN SCALE 6 TO 10 08/29/17 00:45 09/14/17 10:45 Ondansetron HCl (Zofran Inj) 4 mg Q6H PRN IV PUSH NAUSEA OR VOMITING 08/29/17 00:45 09/11/17 14:18 Albuterol/ Ipratropium (Duoneb Neb) 1 ampule Q4HR NEB PRN INH WHEEZING 08/29/17 00:45 09/13/17 07:20 Miscellaneous Information 1 Q361D XX 08/29/17 00:45 08/29/17 01:00 Chlorhexidine Gluconate (Chlorhexidine 2% Cloth) Taper DAILY@04 TOP 08/29/17 04:00 08/25/18 03:59 Chlorhexidine Gluconate (Chlorhexidine 2% Cloth) 3 pack UNSCH PRN TOP HYGIENIC CARE 08/29/17 00:45 Atorvastatin Calcium (Lipitor) 40 mg HS PO 08/29/17 21:00 09/14/17 20:24 Dextrose (D50w (Vial) Inj) 25 ml UNSCH PRN IV PUSH HYPOGLYCEMIA-SEE COMMENTS 08/30/17 08:15 Insulin Human Regular (NovoLIN R SUPPLEMENTAL SCALE) 1 Q6HR SQ 08/30/17 12:00 09/15/17 05:45 Hydralazine HCl (Apresoline Inj) 10 mg Q30M PRN IV PUSH sbp > 160 08/30/17 08:15 09/15/17 01:16 Haloperidol Lactate (Haldol Inj) 5 mg Q4H PRN IV agitation 08/31/17 11:00 Future Hold 09/12/17 23:04 Bisacodyl (Dulcolax Supp) 10 mg DAILY RECTAL 08/31/17 12:00 Future Hold 08/31/17 11:58 Polyethylene Glycol (Miralax) 17 gm BID PO 08/31/17 12:00 09/15/17 09:21 Lactulose (Lactulose Liq) 30 ml BID PO 08/31/17 12:00 Future Hold 09/04/17 19:57 Senna/Docusate Sodium (Melina-Colace) 1 tab BID PO 08/31/17 12:00 09/15/17 09:20 Fluticasone Propionate (Flonase Tae Spr) 2 spray DAILY EACH NARE 09/05/17 17:00 09/15/17 09:21 Clonidine (Catapres) 0.3 mg Q8HR PO 09/06/17 14:00 09/15/17 05:45 Gelatin (Gelfoam 12 Mm/7 Mm Top) 1 foam Q2HR PRN TOPICAL if still bleeding from peg 09/07/17 19:45 09/08/17 08:00 Insulin Detemir (Levemir Inj) 12 units Q12H SQ 09/11/17 22:00 09/15/17 09:21 Oxycodone HCl (Roxicodone Intensol Liq) 5 mg Q4H PO 09/11/17 13:00 09/15/17 09:20 Propranolol HCl (Inderal) 30 mg Q6HR PO 09/11/17 12:00 09/15/17 05:46 Quetiapine Fumarate (SEROquel) 50 mg Q8HR PO 09/11/17 14:00 Future Hold 09/12/17 21:37 Modafinil (Provigil) 200 mg DAILY PO 09/11/17 12:00 Future Hold 09/12/17 09:07 Water (Free Water) VOLUME: 200 ML Q4HR G-TUBE 09/11/17 12:00 09/15/17 08:00 Famotidine (Pepcid) 10 mg BID NG 09/11/17 21:00 09/15/17 09:20 Heparin Sodium (Porcine) (Heparin Inj) 5,000 units Q12HR SQ 09/11/17 21:00 09/15/17 09:21 Pharmacy Profile Note 0 ml @ 0 mls/hr UNSCH OTHER 09/13/17 02:45 Piperacillin Sod/ Tazobactam Sod 50 ml @ 100 mls/hr Q6H IV 09/13/17 03:00 09/15/17 09:41 Nicardipine HCl 25 mg/Sodium Chloride 250 ml @ 50 mls/hr TITRATE PRN IV Blood pressure management 09/13/17 02:45 09/13/17 10:51 Potassium Chloride 100 ml @ 50 mls/hr Q2H IV 09/15/17 08:15 09/15/17 12:14 09/15/17 10:22 OBJECTIVE: Vital Signs Date Time Temp Pulse Resp B/P (MAP) Pulse Ox O2 Delivery O2 Flow Rate FiO2 09/15/17 10:00 91 09/15/17 08:00 40 09/15/17 08:00 97 09/15/17 08:00 101.4 85 16 98/51 (67) 100 09/15/17 07:50 40 09/15/17 07:50 100 40 09/15/17 07:00 100 Mechanical Ventilator 40 09/15/17 06:00 97 09/15/17 04:06 99 40 09/15/17 04:00 40 09/15/17 04:00 101.1 103 16 142/77 (98) 99 09/15/17 04:00 101 09/15/17 02:00 102 09/15/17 01:06 99 40 09/15/17 00:00 40 09/15/17 00:00 94 09/15/17 00:00 102.2 94 21 129/71 (90) 98 09/14/17 20:01 100 40 09/14/17 20:00 40 09/14/17 20:00 84 09/14/17 20:00 100.6 92 16 128/73 (91) 98 09/14/17 19:00 100 Mechanical Ventilator 40 09/14/17 18:00 93 09/14/17 17:41 100 40 09/14/17 16:00 40 09/14/17 16:00 98 09/14/17 16:00 100.1 98 16 151/90 (110) 98 09/14/17 14:00 91 09/14/17 13:28 18 09/14/17 13:28 18 09/14/17 12:00 101.5 102 17 158/94 (115) 99 09/14/17 12:00 102 09/14/17 12:00 40 Laboratory Tests Test 09/14/17 06:15 09/15/17 06:05 White Blood Count 18.4 TH/MM3 Red Blood Count 3.87 MIL/MM3 Hemoglobin 10.0 GM/DL Hematocrit 32.3 % Mean Corpuscular Volume 83.3 FL Mean Corpuscular Hemoglobin 26.0 PG Mean Corpuscular Hemoglobin Concent 31.2 % Red Cell Distribution Width 15.3 % Platelet Count 386 TH/MM3 Mean Platelet Volume 10.4 FL Neutrophils (%) (Auto) 83.6 % Lymphocytes (%) (Auto) 4.8 % Monocytes (%) (Auto) 9.2 % Eosinophils (%) (Auto) 1.7 % Basophils (%) (Auto) 0.7 % Neutrophils # (Auto) 15.4 TH/MM3 Lymphocytes # (Auto) 0.9 TH/MM3 Monocytes # (Auto) 1.7 TH/MM3 Eosinophils # (Auto) 0.3 TH/MM3 Basophils # (Auto) 0.1 TH/MM3 CBC Comment DIFF FINAL Differential Comment Laboratory Tests Test 09/13/17 13:45 09/14/17 06:15 09/15/17 06:05 Total Creatine Kinase 358 U/L Creatine Kinase MB 0.8 NG/ML Creatine Kinase MB % 0.2 % Blood Urea Nitrogen 50 MG/DL 53 MG/DL Creatinine 2.58 MG/DL 2.66 MG/DL Random Glucose 209 MG/DL 215 MG/DL Total Protein 7.2 GM/DL 6.6 GM/DL Albumin 1.8 GM/DL 1.6 GM/DL Calcium Level 8.7 MG/DL 8.5 MG/DL Alkaline Phosphatase 104 U/L 89 U/L Aspartate Amino Transf (AST/SGOT) 87 U/L 73 U/L Alanine Aminotransferase (ALT/SGPT) 129 U/L 94 U/L Total Bilirubin 0.4 MG/DL 0.4 MG/DL Sodium Level 147 MEQ/L 146 MEQ/L Potassium Level 3.5 MEQ/L 3.4 MEQ/L Chloride Level 108 MEQ/L 110 MEQ/L Carbon Dioxide Level 31.5 MEQ/L 28.7 MEQ/L Anion Gap 8 MEQ/L 7 MEQ/L Estimat Glomerular Filtration Rate 33 ML/MIN 32 ML/MIN Microbiology Date/Time Source Procedure Growth Status 09/13/17 01:35 Blood Peripheral Aerobic Blood Culture - Preliminary NO GROWTH IN 2 DAYS Resulted 09/13/17 01:35 Blood Peripheral Anaerobic Blood Culture - Preliminary NO GROWTH IN 2 DAYS Resulted 09/13/17 01:30 Blood Peripheral Aerobic Blood Culture - Preliminary NO GROWTH IN 2 DAYS Resulted 09/13/17 01:30 Blood Peripheral Anaerobic Blood Culture - Preliminary NO GROWTH IN 2 DAYS Resulted PHYSICAL EXAMINATION GENERAL: Awake on the ventilator. HEENT: The sclerae is pale. No icterus. Oropharynx, the patient has marked swelling of the tongue filling the mouth opening. NECK: No adenopathy. Mild swelling. LUNGS: Decreased breath sounds at the bases. HEART: Regular S1-S2 without murmurs. ABDOMEN: Bowel sounds present, soft. No tenderness appreciated. No masses palpable. EXTREMITIES: No clubbing or cyanosis. Trace edema of the hands. NEUROLOGIC: Unable to assess. PSYCHIATRIC: Unable to assess. IMPRESSION Persistent fever: Very likely due to intracranial bleed. Pneumonia due to Klebsiella. Leukocytosis. RECOMMENDATIONS 1. Continue piperacillin / tazobactam. 2. Monitor the blood cultures. 3. Monitor temperature. 4. Monitor white blood cell count. Kaz Gregg MD Sep 15, 2017 11:50
[2017-09-15] MEDS: RESP: ALBUTEROL 2.5 MG/IPRATROPIUM 0.5 MG NEB (PRN) INH (11:55)
--- NOTE | 2017-09-15 12:15 | HHI.NSPN ---
(Jeison Boyle) History Chief Complaint: Unable to obtain due to patient's clinical condition. (Jeison Boyle) Interval History 46-year-old male with history of hypertension who was brought to the emergency room per [facility] after being found with altered mental status, right hemiparesis. He had reportedly been seen to be normal approximately 3-1/2 hours prior. Systolic blood pressure greater than 260/130 on initial evaluation. No seizure activity reported. Positive emesis. Per emergency room personnel the patient was responding verbally, difficulty raising his right arm upon initial arrival. He was intubated in the emergency room and a stat CT scan accomplished which has revealed a primarily left thalamic intracranial hemorrhage. 09/01/17: Patient remains intubated and sedated. 09/02/17: Follow-up CT scan head with mild initial decreased intraventricular hemorrhage, no new thalamic hemorrhage, mild decreased mass effect. 09/03/17: Remains on propofol and fentanyl IV for ventilator control. Positive agitation with decreased sedation 09/04/17: Pt sedated on Diprivan and Fentanyl drip. Not following commands. Pt on Cardene drip. Intubated. 09/05/17: Pt sedated on Diprivan and Fentanyl drip. Not following commands. Pt on Cardene drip. Intubated. Pupils 2mm bilaterally, NR bilaterally. 09/06/17: Remains intubated. PEG tube placed today. On Decadron and Benadryl for angioedema. Lisinopril discontinued 09/07. The patient is obtunded but is sedated with propofol. Nursing reports that the patient does have bleeding secondary to his PEG tube being placed yesterday. The family reports that the plan is to do a tracheostomy tomorrow. Nursing does say the patient does withdraw to stimulation, has a cough and gag reflex but his pupils are nonreactive. 09/10: The patient continues to be obtunded although he has sedation infusing at a low dose. He is trached and tolerating a CPAP trial. 09/13: Obtunded versus lethargic. He is not on any sedation. He is trached and mechanically ventilated. He went for a CT brain this morning. Nursing reports that the patient does withdraw to noxious stimulation and that the pupils are sluggish. 09/14: The patient has his eyes open when seen. He continues to be trached and mechanically ventilated. Nursing this morning reports that the patient gave a thumbs up on the left hand to command for him. 09/15: Pt off sedative drips. Pupils 2mm bilaterally slight reaction bilaterally. Not following commands. Not opening eyes. (Jeison Boyle) System Review Comments Not able to obtain given clinical condition. (Jeison Boyle) Exam Results Vital Signs Date Time Temp Pulse Resp B/P (MAP) Pulse Ox O2 Delivery O2 Flow Rate FiO2 09/15/17 11:52 100 40 09/15/17 11:45 T-piece 09/15/17 10:00 91 09/15/17 08:00 101.4 16 98/51 (67) 09/11/17 20:09 6.00 Intake and Output 09/15/17 09/15/17 09/16/17 08:00 16:00 00:00 Intake Total 1210 ml Output Total 1000 ml Balance 210 ml (Jeison Boyle) Physical Examination GENERAL: He is not in any apparent distress. VSS. HEENT: Pupils 2 mm appear very sluggish slight reaction. Edematous tongue protruding from oral cavity. RESP: CTA bilaterally. Trach in place.' CARDIOVASCULAR: NSR no murmurs ABDOMEN: Soft positive bs. Peg in place. SKIN: SCDs in place. No cyanosis or erythema. MUSCULOSKELETAL: Not following commands for me for muscle testing. NEUROLOGICAL: Not opening eyes. Not following commands. Pupils 2mm bilaterally slight reaction bilaterally. (Jeison Boyle) Lab, Micro, Other Results Last Impressions Chest X-Ray 09/14/17 0600 Signed Impressions: Service Date/Time: Thursday, September 14, 2017 03:56 - CONCLUSION: Stable appearance. Angelo Conn MD Head CT 09/13/17 0800 Signed Impressions: Service Date/Time: Wednesday, September 13, 2017 09:17 - CONCLUSION: 1. Resolving left basal ganglia hematoma Natan Lagos MD Chest CT 09/13/17 0000 Signed Impressions: Service Date/Time: Wednesday, September 13, 2017 09:28 - CONCLUSION: 1. Bibasilar and left lingular dependent atelectatic changes. Lungs are otherwise clear. 2. Tracheostomy tube with the tip probably positioned above the connie. 3. Compensated cardiomegaly. Reyes Guzman MD Abdomen/Pelvis CT 09/13/17 0000 Signed Impressions: Service Date/Time: Wednesday, September 13, 2017 09:28 - CONCLUSION: 1. There is some stranding in the retroperitoneal perivascular tissues around the distal aorta extending into the bifurcation with a regional borderline lymph nodes. Findings are characteristic of a nonspecific inflammatory process. Findings could represent early retroperitoneal fibrosis.. 2. Urinary bladder is decompressed with some mural thickening in pericystic inflammatory changes possibly representing a chronic cystitis. Nondependent air could be associated with a recent catheterization/instrumentation. 3. Small umbilical and right inguinal hernias only contain fat. 4. Bilateral dependent basilar and left lingular atelectatic changes. Heart size is borderline prominent. 5. Otherwise , bowel is intact without obstruction to explain abdominal distention Reyes Guzman MD Abdomen X-Ray 09/10/17 0600 Signed Impressions: Service Date/Time: Sunday, September 10, 2017 03:56 - CONCLUSION: No significant abnormality is identified. There is mild distention of the colon but there are no findings to suggest bowel obstruction or significant ileus. Ignacio Underwood MD Liver Ultrasound 09/07/17 0000 Signed Impressions: Service Date/Time: Thursday, September 07, 2017 12:37 - CONCLUSION: 1. Unremarkable sonographic appearance of the liver. No evidence for hepatic volume loss or intrahepatic ductal dilatation. 2. No sonographic evidence for cholelithiasis or acute cholecystitis. 3. Mild increased right renal echogenicity may reflect medical renal disease. 4. Small bilateral pleural effusions. 5. Pancreas and inferior pole of the right kidney are obscured by bowel gas and therefore not evaluated. Darrell Robles MD Renal Ultrasound 08/31/17 0000 Signed Impressions: Service Date/Time: Thursday, August 31, 2017 17:42 - CONCLUSION: 1. No evidence of hydronephrosis on either side. 2. Solitary linear echogenic focus in the upper pole parenchyma of the right kidney has similar features to prior examination in January 2017 and possibly represents a calcification. David Snell MD Neck CTA [id number] Signed Impressions: Service Date/Time: Tuesday, August 29, 2017 00:13 - CONCLUSION: Negative carotid CTA. David Snell MD Head CTA [id number] Signed Impressions: Service Date/Time: Tuesday, August 29, 2017 00:13 - CONCLUSION: 1. No evidence of vessel truncation or aneurysm. 2. No abnormal vessels in the region of the large left thalamic hemorrhage. David Snell MD Laboratory Tests Test 09/15/17 06:05 09/15/17 11:37 Blood Urea Nitrogen 53 MG/DL Creatinine 2.66 MG/DL Random Glucose 215 MG/DL Total Protein 6.6 GM/DL Albumin 1.6 GM/DL Calcium Level 8.5 MG/DL Alkaline Phosphatase 89 U/L Aspartate Amino Transf (AST/SGOT) 73 U/L Alanine Aminotransferase (ALT/SGPT) 94 U/L Total Bilirubin 0.4 MG/DL Sodium Level 146 MEQ/L Potassium Level 3.4 MEQ/L Chloride Level 110 MEQ/L Carbon Dioxide Level 28.7 MEQ/L Anion Gap 7 MEQ/L Estimat Glomerular Filtration Rate 32 ML/MIN (Jeison Boyle) Medical Decision Making Impression and Plan A: 46 y/o M with a relatively large thalamic intracranial hemorrhage. P: Continue with critical care. Continue with blood pressure control Continue with neuro checks Continue with rehab efforts. Discussed with RN care plan. (Jeison Boyle) Attending Statement The exam, history, and the medical decision-making described in the above note were completed with the assistance of the mid-level provider. I reviewed and agree with the findings presented. I attest that I had a [id number] encounter with the patient on the same day, and personally performed and documented my assessment and findings in the medical record. (Jt Dotson MD) Jeison Boyle Sep 15, 2017 12:15 Jt Dotson MD Sep 15, 2017 17:10
[2017-09-15 14:22] LABS: AUTOMATED NEUTROPHIL # 11.6 TH/MM3 (1.8-7.7); BASOPHIL # 0.1 TH/MM3 (0-0.2); BASOPHIL % 0.7 % (0.0-2.0); EOSINOPHIL # 0.3 TH/MM3 (0-0.4); EOSINOPHIL % 2.4 % (0.0-4.0); HEMATOCRIT 29.4 % (39.0-51.0); HEMOGLOBIN 9.4 GM/DL (13.0-17.0); LYMPH % 7.7 % (9.0-44.0); LYMPHOCYTE # 1.1 TH/MM3 (1.0-4.8); MEAN CELL VOLUME 82.8 FL (80.0-100.0); MEAN CORPUSCULAR HEMOGLOBIN 26.3 PG (27.0-34.0); MEAN CORPUSCULAR HGB CONC 31.8 % (32.0-36.0); MEAN PLATELET VOLUME 10.4 FL (7.0-11.0); MONO % 9.8 % (0.0-8.0); MONOCYTE # 1.4 TH/MM3 (0-0.9); NEUT % 79.4 % (16.0-70.0); PLATELET COUNT 409 TH/MM3 (150-450); RED BLOOD COUNT 3.55 MIL/MM3 (4.50-5.90); RED CELL DISTRIBUTION WIDTH 14.7 % (11.6-17.2); WHITE BLOOD COUNT 14.6 TH/MM3 (4.0-11.0)
--- NOTE | 2017-09-15 14:22 | HHI.CCPN ---
Subjective Remarks/Hospital Course Hospital Course: 46 y/o man with longstanding hypertension and previous CVA presents obtunded with new neurological symptoms noticed prior to arrival. Timeline unclear. Required intubation in ED for airway protection. CT head shows left thalamic bleed and shift away from bleed. Toxicology screen pending. Subjective: 08/30: encephalopathy persists. bp under better control, still on cardene. on sedation vacation, moves left side spontaneously but nothing on right. 08/31: overnight, severely agitated, requiring high dose sedation. also, lambert obstructed, new lambert placed with improvement in obstruction. this morning, RAFAELA with Cr up to 3. urine Na < 10, suggestive of pre-renal etiology. continued ivf. high peak pressures on vent. suction lavage with thick tenacious secretions. bronch with left lobe mucous plugging. bronchospasm a significant problem requiring iv magnesium and duonebs. finally attempted small paralytic dose with improvement in abdominal breathing and fighting ventilator. 09/01: No improvement in neuro exam, intermittent jerking movements noted by the RN no seizure. Creatinine for urine output adequate. I have consulted nephrology. We'll check CT of the head repeat EEG tomorrow a.m. 09/02: Clinically remains same. Did not tolerate sedation vacation, became hypertensive. CT head today showed slight improvement in L thalamic and IVH. Dr. Tinajero is the neurosurgeon, Dr. Jhaveri covering 09/03: Still unable to tolerate sedation vacation. Becomes very asynchronous with the vent with desaturations. Discussed with daughters about possible tracheostomy, they want to discuss with their mom, patient's ex -. Creatinine has worsened to 5.1 but no acute indication for dialysis. Will check ABG urine output 1.8 L in 24 hours 09/04: Remains intubated sedated synchronous with the vent. Noted to have tongue swelling/angioedema. Lisinopril discontinued. Placed on Decadron and IV Benadryl. Plan for tracheostomy and PEG tube placement next week 09/05: Patient remains intubated sedated critically ill. No change or improvement in neuro status. Lisinopril discontinued yesterday Decadron and Benadryl started tongue swelling is improved. Hyperglycemia secondary to Decadron, random blood sugar 360. Will wean to DC. Plan for trach and PEG this week, if family agreeable 09/06: Angioedema improving with Decadron and Benadryl. Still gets very agitated with sedation lightening. Needs improved blood pressure control increase clonidine to 0.3 every 8 hours. Plan for PEG today and Trach 09/08/1709/07: Stable overnight, except bleeding/oozing from the PEG site. We'll give single dose of nasal DDAVP. Creatinine slightly improved to 4.4, urine output 3.9 L in 24 hours. Plan for tracheostomy 09/08/17. 09/08: Tracheostomy completed. Tongue edema unchanged. 09/09: Tolerating spontaneous respiration on trach. Tongue edema persists. 09/10: Tolerating progression to trach collar today. 09/11: t-piece x 24h. still not waking up and encephalopathic. however, not agitated. still hypertensive, tachycardic. will need placement. Cr continues to improve. still hypernatremic. 09/12: delayed note entry. seen around 1300 on 09/12. wbc slightly up, fever curve uptrending, but has history of fevers likely from thalamic stroke. sputum , urine cultures sent at 0600. will await these results before deciding further courses of action. still on t-piece and no overall clinical change. 09/13: Overnight events noted, febrile to 105, with tremor, clonus, rigidity. given dantrolene for possible NMS by Dr. Asif and stopped Haldol and Seroquel. Provigil also stop due to possibility of serotonin syndrome. Patient was started on Zosyn and vancomycin and panculture sent, and placed on full vent support due to tachypnea. Temp came down to 101 (his baseline) after dantrolene one dose. On my exam at this time patient does not have a rigidity and blood temperatures 101. Nursing staff reports thick yellow secretions, chest x-ray shows possible left lower lobe infiltrate. WBC increased from 15.5 to 23.3. I will get the CT of the chest to evaluate for lung infiltrate and also CT abdomen and pelvis to rule out any intra-abdominal source of sepsis. Hold off on Ativan at this time. Patient is also getting a CT of the head 09/14: Patient continues to spike fever but at baseline. WBC count is trending down (23.3 to 18.4). Sputum culture growing Klebsiella. Opens eyes spontaneously today. Weakly give thumbs up to the RN (I did not witness it) 09/15: Continues to spike fever, appreciate ID consult. I have ordered venous ultrasound of all extremities. Also check CT of the sinuses rule out sinusitis and also evaluate for transient swelling pharyngeal/retropharyngeal abscesses. ENT consulted for persistent angioedema Objective Vital Signs Date Time Temp Pulse Resp B/P (MAP) Pulse Ox O2 Delivery O2 Flow Rate FiO2 09/15/17 11:52 100 40 09/15/17 11:45 T-piece 09/15/17 10:00 91 09/15/17 08:00 101.4 16 98/51 (67) 09/11/17 20:09 6.00 Intake and Output 09/15/17 09/15/17 09/16/17 08:00 16:00 00:00 Intake Total 1210 ml 150 ml Output Total 1000 ml Balance 210 ml 150 ml Result Diagram: 09/14/1715 09/15/17 0605 Objective Remarks Gen: Middle-aged male, lying in bed, encephalopathic, on ventilator support support. Head: Atraumatic. Conjunctivae clear. ENT: Tongue swollen/angioedema with laceration from bite, stable Neck: Supple, trach site clean, dry. Lungs: PRVC/AC, tachypneic. equal chest rise. Coarse rhonchi and crackles bilaterally Heart: Tachycardic, RR. Intermittently hypertensive. Abdomen: Mildly distended. PEG site clean. Extremities: Warm, well perfused. Neuro: Opens eyes spontaneously today, not following commands. w/d to pain left UE and bilateral LE. pupils equal, round A/P Problem List: (1) Intracranial hemorrhage ICD Code: I62.9 - Nontraumatic intracranial hemorrhage, unspecified Status: Acute (2) Hemorrhagic stroke ICD Code: I61.9 - Nontraumatic intracerebral hemorrhage, unspecified Status: Acute (3) Hypertensive emergency ICD Code: I10 - Hypertensive emergency Status: Acute Assessment and Plan Assessment: 46yM with left thalamic hypertensive hemorrhagic IPH, ICH score 2. remains off pathway, poor neurologic exam. wean off all sedatives. work towards controlling delirium. needs placement, but funding issues will be a problem. has history of fevers, likely secondary to thalamic bleed, but with rising wbc, will check cultures. if clinically declines, would start empiric abx. Active Problems: Acute encephalopathy - persistent. Left Thalamic Hemorrhage, with IV extension Intracerebral Hemorrhage, ICH score 2 Respiratory failure requiring vent support due to increased work of breathing Healthcare associated pneumonia Sepsis Possible NMS Fever central vs infectious Hypertensive Emergency- resolved. Agitated Delirium - resolved. 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 - resolving. Hyperglycemia Hypertension Hypernatremia Hypoactive delirium Plan: NEURO: - Seroquel and Haldol discontinued due to possible NMS - Discontinued modafinil 200mg daily due to possibility of serotonin syndrome - oxy to 5mg po q4h - propranolol to 30mg po q6h- increase to to 40 q6hr 09/14 - continue clonidine 0.3 mg tid - Repeat CT of the head improving bleed RESP: - CPAP trial with TP as tolerated - CT of the chest 09/13/17 -LLL infiltrate - Broad-spectrum antibiotics as below (Zosyn and Vanc) - DuoNeb every 6 hours scheduled and when necessary, ventilator bundle CVS: - Intermittent hypertension now well controlled - Nicardipine to keep systolic blood pressure less than 150, now off - Continue clonidine, amlodipine and propranolol GI: - Status post PEG tube continue tube feeds - Having bowel movements - Free water 200mL per tube q6h - Pepcid per tube /RENAL: - recheck daily sodium on bmp - continue Lambert catheter given prior urinary obstruction and resolving rafaela - Nephrology following, creatinine stable ID - New sepsis with high white count and high fever, most likely secondary to pneumonia - ID consult appreciated - Fever work up with: Venous ultrasound of all extremities. CT of the sinuses rule out sinusitis and also evaluate for tongue swelling pharyngeal/retropharyngeal abscesses. - ENT consulted for persistent angioedema - Restarted Decadron and Benadryl, continue Flonase - Continue vancomycin and Zosyn - Follow-up on blood urine and sputum culture-Klebsiella in sputum HEME: - Leukocytosis secondary to probable sepsis MSK: - OOB to stretcher chair daily - PT consult ENDO: - Levemir to 12 units SQ q12h - keep med scale q6h SSI PROPH: - sqh 5000 q12h (2 weeks post bleed, stable). Pepcid for GI prophylaxis Level 3 Ladan Pierre MD Sep 15, 2017 14:21
[2017-09-15] MEDS: DEXAMETHASONE SOD PHOS 4 MG/ML VIAL IV PUSH SCH ×2 (14:46→17:12)
[2017-09-15] MEDS: diphenhydrAMINE HCL 50 MG/ML VIAL IV PUSH SCH ×2 (14:47→21:00)
--- NOTE | 2017-09-15 18:17 | RADRPT ---
EXAM DATE/TIME: 09/15/2017 16:58 [facility] COMPARISON: No previous studies available for comparison. INDICATIONS : Bilateral leg edmea. MEDICAL HISTORY : Stroke. CVA. Migraine. Hypertension. GERD. SURGICAL HISTORY : Peg tube placement. ENCOUNTER: Initial ACUITY: 1 day PAIN SCORE: Non-responsive LOCATION: Bilateral legs. TECHNIQUE: Venous ultrasound of the left and right leg was performed from the inguinal ligament to the proximal calf. Real-time, color Doppler and spectral tracing, compression and augmentation techniques were us ed. FINDINGS: RIGHT LEG: There is normal compressibility of the deep venous system from the inguinal region to the proximal ca lf. No echogenic clot is seen in the lumen of the common femoral, femoral, popliteal, and posterior tibial veins. There is a normal response of the venous system to proximal and distal augmentation an d respiration. LEFT LEG: There is normal compressibility of the deep venous system from the inguinal region to the proximal ca lf. No echogenic clot is seen in the lumen of the common femoral, femoral, popliteal, and posterior tibial veins. There is a normal response of the venous system to proximal and distal augmentation an d respiration. CONCLUSION: No evidence of DVT within the lower extremities. Ric Jack MD on September 15, 2017 at 18:12 Board Certified Radiologist. This report was verified electronically.
--- NOTE | 2017-09-15 18:18 | RADRPT ---
EXAM DATE/TIME: 09/15/2017 17:14 [facility] COMPARISON: No previous studies available for comparison. INDICATIONS : Bilateral arm edema. MEDICAL HISTORY : Stroke. CVA. Migraine. Hypertension. GERD. SURGICAL HISTORY : Peg tube placement. ENCOUNTER: Initial ACUITY: 1 day PAIN SCORE: Non-responsive LOCATION: Bilateral arms. FINDINGS: RIGHT UPPER EXTREMITY: There is nonocclusive thrombus within the right cephalic vein distal to the IV site. There is spontan eous flow documented in the brachial, basilic, axillary, and subclavian veins. The vessels are compr essible and augmentation response is documented. No filling defects are seen. The flow is phasic wi th respiration. Direction of flow in the jugular vein is caudal. LEFT UPPER EXTREMITY: There is occlusive thrombus within the left cephalic vein with no flow to the ulnar vein. There is sp ontaneous flow documented in the brachial, basilic, axillary, and subclavian veins. The vessels are compressible and augmentation response is documented. No filling defects are seen. The flow is phas ic with respiration. Direction of flow in the jugular vein is caudal. CONCLUSION: Occlusive thrombus within the left cephalic vein and nonocclusive thrombus within the right cephalic vein. Ric Jack MD on September 15, 2017 at 18:15 Board Certified Radiologist. This report was verified electronically.
[2017-09-15] MEDS: ATORVASTATIN 40 MG TAB PO SCH (21:00)
[2017-09-16] VITALS (20 sets, daily range): BP systolic 140–187; BP diastolic 70–100; PULSE 71–89; RESP 16–21; TEMP 99.1–100.6; O2SAT 95–100
[2017-09-16] MEDS: oxyCODONE HCL ORAL CONC 5 MG/0.25 ML SYRINGE PO SCH ×6 (01:00→20:41)
--- NOTE | 2017-09-16 02:22 | RADRPT ---
EXAM DATE/TIME: 09/16/2017 01:03 [facility] COMPARISON: No previous studies available for comparison. INDICATIONS : Facial swelling. RADIATION DOSE: 36.81 CTDIvol (mGy) MEDICAL HISTORY : Stroke. Cardiovascular disease Hypertension. SURGICAL HISTORY : None. ENCOUNTER: Initial ACUITY: 1 day PAIN SCORE: 5/10 LOCATION: Bilateral facial TECHNIQUE: Volumetric scanning of the facial bones was performed. Using automated exposure control and adjustme nt of the mA and/or kV according to patient size, radiation dose was kept as low as reasonably achiev able to obtain optimal diagnostic quality images. DICOM format image data is available electronicall y for review and comparison. FINDINGS: ORBITS: The orbital and infraorbital osseous structures are intact. The retroconal structures have a normal configuration. No radiopaque foreign bodies are seen. NASAL BONE: The nasal bone and maxillary spine are intact ZYGOMATIC ARCHES: Symmetric without evidence of fracture. SINUSES: The maxillary, ethmoid and frontal sinuses are intact. There is mucosal thickening and opacification in the frontal sinuses, sphenoid sinuses and maxillary sinuses as well as the ethmoidal air cells. Th ere are air-fluid levels within the maxillary sinuses. There is opacification of multiple bilateral m astoid air cells. There are mildly prominent lymph nodes at the base of the neck bilaterally. NASAL CAVITY: The nasal septum is intact and midline. The lacrimal ducts are intact. SOFT TISSUES: No radiopaque foreign bodies seen. No soft-tissue swelling is seen. INTRACRANIAL: No intracranial air seen. CRIBIFORM PLATE: Grossly intact. CONCLUSION: 1. Evidence of acute pansinusitis. 2. Opacification of multiple bilateral mastoid air cells most characteristic of mastoiditis. 3. Mildly prominent cervical chain nodes which may be reactive. Angelo Conn MD on September 16, 2017 at 2:17 Board Certified Radiologist. This report was verified electronically.
[2017-09-16] MEDS: CHLORHEXIDINE GLUCONATE 2 % 1 PACK (2 CLOTHS) TOP SCH (03:14)
[2017-09-16 03:50] LABS: MITOCHONDRIAL ABS LESS THAN 20.0 U (<=20.0)
[2017-09-16] MEDS: FREE WATER G-TUBE SCH ×6 (04:00→20:00)
[2017-09-16 04:50] LABS: HEMATOCRIT 27.6 % (39.0-51.0); MEAN CELL VOLUME 81.3 FL (80.0-100.0); MEAN CORPUSCULAR HEMOGLOBIN 26.6 PG (27.0-34.0); MEAN CORPUSCULAR HGB CONC 32.7 % (32.0-36.0); MEAN PLATELET VOLUME 10.5 FL (7.0-11.0); PLATELET COUNT 365 TH/MM3 (150-450); RED BLOOD COUNT 3.39 MIL/MM3 (4.50-5.90); RED CELL DISTRIBUTION WIDTH 14.5 % (11.6-17.2); WHITE BLOOD COUNT 13.6 TH/MM3 (4.0-11.0)
[2017-09-16] MEDS: diphenhydrAMINE HCL 50 MG/ML VIAL IV PUSH SCH ×4 (04:54→20:41)
[2017-09-16] MEDS: PIPERACIL-TAZO 2.25 GM PREMIX 50 ML IV SCH ×4 (04:54→20:40)
[2017-09-16] MEDS: cloNIDine HCL 0.3 MG TAB PO SCH ×3 (04:55→20:40)
[2017-09-16] MEDS: DEXAMETHASONE SOD PHOS 4 MG/ML VIAL IV PUSH SCH ×4 (04:55→17:06)
[2017-09-16] MEDS: PROPRANOLOL HCL 10 MG TAB PO SCH ×4 (04:55→17:07)
[2017-09-16 05:11] LABS: BICARBONATE 29.3 MEQ/L (21.0-32.0); CALCIUM 8.4 MG/DL (8.5-10.1); CREATININE 2.57 MG/DL (0.60-1.30)
[2017-09-16 05:13] LABS: RANDOM VANCOMYCIN 11.7 COMMENT
[2017-09-16] MEDS: INSULIN NovoLIN REGULAR SUPPLEMENTAL SCALE SQ SCH ×4 (05:53→17:19)
[2017-09-16] MEDS: hydrALAZINE HCL 20 MG/ML VIAL IV PUSH PRN ×4 (07:01→22:21)
[2017-09-16] MEDS: CHLORHEXIDINE 0.12% (ORAL KIT) 15 ML CUP MT SCH ×2 (08:00→21:30)
[2017-09-16] MEDS: FLUTICASONE PROPIONATE 50 MCG/ACT 16 GM NASAL SPRAY EACH NARE SCH (08:05)
[2017-09-16] MEDS: FAMOTIDINE 20 MG TAB NG SCH ×2 (08:06→20:40)
[2017-09-16] MEDS: HEPARIN SODIUM - SQ 10,000 UNITS/ML VIAL SQ SCH ×2 (08:06→20:40)
[2017-09-16] MEDS: POLYETHYLENE GLYCOL 17 GM PKG PO SCH ×2 (08:07→21:00)
[2017-09-16] MEDS: DOCUSATE SODIUM 50 MG/SENNA 8.6 MG TAB PO SCH ×2 (08:07→21:00)
--- NOTE | 2017-09-16 10:15 | HHI.NSPN ---
(RamaJames) History Chief Complaint: Unable to obtain due to patient's clinical condition. (RamaJames) Interval History 08/29: History of hypertension who was brought to the emergency room per [facility] after being found with altered mental status, right hemiparesis. He had reportedly been seen to be normal approximately 3-1/2 hours prior. Systolic blood pressure greater than 260/130 on initial evaluation. No seizure activity reported. Positive emesis. Per emergency room personnel the patient was responding verbally, difficulty raising his right arm upon initial arrival. He was intubated in the emergency room and a stat CT scan accomplished which has revealed a primarily left thalamic intracranial hemorrhage. 09/01/17: Patient remains intubated and sedated. 09/02: intubated and well sedated, not tolerating sedation vacation due to increase in blood pressure. 09/03/17: Remains on propofol and fentanyl IV for ventilator control. Positive agitation with decreased sedation 09/04/17: Pt sedated on Diprivan and Fentanyl drip. Not following commands. Pt on Cardene drip. Intubated. 09/05/17: Pt sedated on Diprivan and Fentanyl drip. Not following commands. Pt on Cardene drip. Intubated. Pupils 2mm bilaterally, NR bilaterally. 09/06/17: Remains intubated. PEG tube placed today. On Decadron and Benadryl for angioedema. Lisinopril discontinued 09/07. The patient is obtunded but is sedated with propofol. Nursing reports that the patient does have bleeding secondary to his PEG tube being placed yesterday. The family reports that the plan is to do a tracheostomy tomorrow. Nursing does say the patient does withdraw to stimulation, has a cough and gag reflex but his pupils are nonreactive. 09/10: The patient continues to be obtunded although he has sedation infusing at a low dose. He is trached and tolerating a CPAP trial. 09/13: Obtunded versus lethargic. He is not on any sedation. He is trached and mechanically ventilated. He went for a CT brain this morning. Nursing reports that the patient does withdraw to noxious stimulation and that the pupils are sluggish. 09/14: The patient has his eyes open when seen. He continues to be trached and mechanically ventilated. Nursing this morning reports that the patient gave a thumbs up on the left hand to command for him. 09/15: Pt off sedative drips. Pupils 2mm bilaterally slight reaction bilaterally. Not following commands. Not opening eyes. 09/16: When seen this morning the patient appears lethargic. He is trached and on T-piece. Nursing reports that the patient was more alert and did give a thumbs up to command this morning prior to receiving diphenhydramine. He also reported no movement to the right side. (James Ontiveros) System Review Comments Unable to obtain due to patient's clinical condition. (James Ontiveros) Exam Results 09/14/17 09/14/17 09/15/17 09/15/17 09/16/17 09/16/17 06:00 18:00 06:00 18:00 06:00 18:00 Intake Total 1272 ml 1674 ml 1210 ml 1499 ml 1113 ml Output Total 1300 ml 1250 ml 1000 ml 1075 ml 1000 ml 0 ml Balance -28 ml 424 ml 210 ml 424 ml 113 ml 0 ml IV Total 100 ml 625 ml 156 ml 375 ml Tube Feeding 572 ml 349 ml 454 ml 524 ml 513 ml Other 600 ml 700 ml 600 ml 600 ml 600 ml Output Urine Total 1300 ml 1250 ml 1000 ml 1075 ml 1000 ml Tube Feeding Residual Discard 0 ml 0 ml # Bowel Movements 0 0 1 2 0 Vital Signs Date Time Temp Pulse Resp B/P (MAP) Pulse Ox O2 Delivery O2 Flow Rate FiO2 09/16/17 08:00 99.7 88 21 187/76 (113) 95 09/16/17 08:00 40 09/16/17 08:00 88 09/16/17 07:36 35 09/16/17 07:36 100 35 09/16/17 06:00 80 09/16/17 04:08 99 40 09/16/17 04:00 100.4 82 16 158/94 (115) 97 09/16/17 04:00 40 09/16/17 04:00 82 09/16/17 02:00 79 09/16/17 01:36 100 40 09/16/17 01:00 100 100 09/16/17 00:00 89 09/16/17 00:00 40 09/16/17 00:00 100.6 89 16 140/77 (98) 100 09/15/17 22:00 83 09/15/17 21:00 40 09/15/17 20:31 100 40 09/15/17 20:00 84 09/15/17 20:00 100.8 83 16 130/75 (93) 100 09/15/17 20:00 40 09/15/17 18:00 95 09/15/17 16:32 100 40 09/15/17 16:00 95 09/15/17 16:00 40 09/15/17 16:00 101.0 96 18 137/75 (95) 09/15/17 14:00 94 09/15/17 12:00 100.9 93 16 148/82 (104) 100 09/15/17 12:00 93 09/15/17 12:00 40 09/15/17 11:52 100 40 09/15/17 11:45 95 T-piece 40 09/15/17 10:00 91 09/15/17 08:00 40 09/15/17 08:00 97 09/15/17 08:00 101.4 85 16 98/51 (67) 100 09/15/17 07:50 40 09/15/17 07:50 100 40 09/15/17 07:00 100 Mechanical Ventilator 40 09/15/17 06:00 97 09/15/17 04:06 99 40 09/15/17 04:00 40 09/15/17 04:00 101.1 103 16 142/77 (98) 99 09/15/17 04:00 101 09/15/17 02:00 102 09/15/17 01:06 99 40 09/15/17 00:00 40 09/15/17 00:00 94 09/15/17 00:00 102.2 94 21 129/71 (90) 98 09/14/17 20:01 100 40 09/14/17 20:00 40 09/14/17 20:00 84 09/14/17 20:00 100.6 92 16 128/73 (91) 98 09/14/17 19:00 100 Mechanical Ventilator 40 09/14/17 18:00 93 09/14/17 17:41 100 40 09/14/17 16:00 40 09/14/17 16:00 98 09/14/17 16:00 100.1 98 16 151/90 (110) 98 09/14/17 14:00 91 09/14/17 13:28 18 09/14/17 13:28 18 09/14/17 12:00 101.5 102 17 158/94 (115) 99 09/14/17 12:00 102 09/14/17 12:00 40 09/14/17 11:43 99 40 09/14/17 10:50 18 09/14/17 10:00 104 09/14/17 08:31 100 40 09/14/17 08:31 99 Ventilator 40 09/14/17 08:00 101.1 98 17 132/71 (91) 100 09/14/17 08:00 40 09/14/17 08:00 98 09/14/17 07:00 99 Mechanical Ventilator 40 09/14/17 06:00 96 09/14/17 04:21 100 40 09/14/17 04:00 98 09/14/17 04:00 40 09/14/17 04:00 101.7 98 17 132/71 (91) 100 09/14/17 02:00 92 09/14/17 01:09 99 40 09/14/17 00:00 40 09/14/17 00:00 101.2 99 19 133/86 (102) 100 09/14/17 00:00 99 09/13/17 22:00 89 09/13/17 21:03 99 40 09/13/17 20:00 101.3 09/13/17 20:00 40 09/13/17 20:00 82 09/13/17 20:00 101.3 87 16 117/68 (84) 99 09/13/17 19:30 40 09/13/17 19:00 100 Mechanical Ventilator 40 09/13/17 18:00 83 09/13/17 16:51 99 40 09/13/17 16:00 96 09/13/17 16:00 101.2 96 20 127/68 (87) 99 09/13/17 14:00 88 09/13/17 13:47 86 103/58 09/13/17 13:07 99 40 09/13/17 12:00 101.6 102 17 115/58 (77) 99 09/13/17 12:00 102 09/13/17 12:00 102 115/58 09/13/17 10:51 109 138/62 (EscambiaJames huff) Physical Examination GENERAL: Patient lethargic vs drowsy when seen, no evident distress. HEENT: Normocephalic, atraumatic. Left pupil 4 mm & right pupil 5 mm, slight reaction. Edematous tongue protruding from oral cavity. MUSCULOSKELETAL: Withdrew LUE to noxious stimulation, no movement to the RUE or BLE, no evident clubbing or deformity. NEUROLOGICAL: Lethargic vs drowsy, GCS 7T (E2 V1T M4). Nonverbal, trached. Opens eyes & facial grimacing to noxious stimulation. Does not follow commands. Moves LUE to local noxious stimulation but none to the other extremities. Left pupil 4 mm & right pupil 5 mm, slight reaction. (James Ontiveros) Physical Examination He is lethargic vs drowsy when seen, no evident distress. HEENT: Normocephalic, atraumatic. Left pupil 4 mm & right pupil 5 mm, slight reaction. Edematous tongue protruding from oral cavity. MUSCULOSKELETAL: Withdrew LUE to noxious stimulation, no movement to the RUE or BLE, no evident clubbing or deformity. NEUROLOGICAL: Lethargic vs drowsy, GCS 7T (E2 V1T M4). Nonverbal, trached. Opens eyes & facial grimacing to noxious stimulation. Does not follow commands. Moves LUE to local noxious stimulation but none to the other extremities. Left pupil 4 mm & right pupil 5 mm. (Genaro Jhaveri MD) Lab, Micro, Other Results Recent Impressions Maxillofacial CT 09/16/17 0000 Signed Impressions: Service Date/Time: September 01:03 - CONCLUSION: 1. Evidence of acute pansinusitis. 2. Opacification of multiple bilateral mastoid air cells most characteristic of mastoiditis. 3. Mildly prominent cervical chain nodes which may be reactive. Angelo Conn MD Upper Extremity Ultrasound 09/15/17 0000 Signed Impressions: Service Date/Time: Friday, September 15, 2017 17:14 - CONCLUSION: Occlusive thrombus within the left cephalic vein and nonocclusive thrombus within the right cephalic vein. Ric Jack MD Lower Extremity Ultrasound 09/15/17 0000 Signed Impressions: Service Date/Time: Friday, September 15, 2017 16:58 - CONCLUSION: No evidence of DVT within the lower extremities. Ric Jack MD Chest X-Ray 09/14/17 0600 Signed Impressions: Service Date/Time: Thursday, September 14, 2017 03:56 - CONCLUSION: Stable appearance. Angelo Conn MD Laboratory Tests Test 09/13/17 13:45 09/14/17 06:15 09/15/17 06:05 09/15/17 13:55 Total Creatine Kinase 358 U/L Creatine Kinase MB 0.8 NG/ML Creatine Kinase MB % 0.2 % White Blood Count 18.4 TH/MM3 14.6 TH/MM3 Red Blood Count 3.87 MIL/MM3 3.55 MIL/MM3 Hemoglobin 10.0 GM/DL 9.4 GM/DL Hematocrit 32.3 % 29.4 % Mean Corpuscular Volume 83.3 FL 82.8 FL Mean Corpuscular Hemoglobin 26.0 PG 26.3 PG Mean Corpuscular Hemoglobin Concent 31.2 % 31.8 % Red Cell Distribution Width 15.3 % 14.7 % Platelet Count 386 TH/MM3 409 TH/MM3 Mean Platelet Volume 10.4 FL 10.4 FL Neutrophils (%) (Auto) 83.6 % 79.4 % Lymphocytes (%) (Auto) 4.8 % 7.7 % Monocytes (%) (Auto) 9.2 % 9.8 % Eosinophils (%) (Auto) 1.7 % 2.4 % Basophils (%) (Auto) 0.7 % 0.7 % Neutrophils # (Auto) 15.4 TH/MM3 11.6 TH/MM3 Lymphocytes # (Auto) 0.9 TH/MM3 1.1 TH/MM3 Monocytes # (Auto) 1.7 TH/MM3 1.4 TH/MM3 Eosinophils # (Auto) 0.3 TH/MM3 0.3 TH/MM3 Basophils # (Auto) 0.1 TH/MM3 0.1 TH/MM3 CBC Comment DIFF FINAL DIFF FINAL Differential Comment Blood Urea Nitrogen 50 MG/DL 53 MG/DL Creatinine 2.58 MG/DL 2.66 MG/DL Random Glucose 209 MG/DL 215 MG/DL Total Protein 7.2 GM/DL 6.6 GM/DL Albumin 1.8 GM/DL 1.6 GM/DL Calcium Level 8.7 MG/DL 8.5 MG/DL Alkaline Phosphatase 104 U/L 89 U/L Aspartate Amino Transf (AST/SGOT) 87 U/L 73 U/L Alanine Aminotransferase (ALT/SGPT) 129 U/L 94 U/L Total Bilirubin 0.4 MG/DL 0.4 MG/DL Sodium Level 147 MEQ/L 146 MEQ/L Potassium Level 3.5 MEQ/L 3.4 MEQ/L Chloride Level 108 MEQ/L 110 MEQ/L Carbon Dioxide Level 31.5 MEQ/L 28.7 MEQ/L Anion Gap 8 MEQ/L 7 MEQ/L Estimat Glomerular Filtration Rate 33 ML/MIN 32 ML/MIN Random Vancomycin Level 9.6 COMMENT Test 09/16/17 04:33 White Blood Count 13.6 TH/MM3 Red Blood Count 3.39 MIL/MM3 Hemoglobin 9.0 GM/DL Hematocrit 27.6 % Mean Corpuscular Volume 81.3 FL Mean Corpuscular Hemoglobin 26.6 PG Mean Corpuscular Hemoglobin Concent 32.7 % Red Cell Distribution Width 14.5 % Platelet Count 365 TH/MM3 Mean Platelet Volume 10.5 FL Hematology Comments Blood Urea Nitrogen 56 MG/DL Creatinine 2.57 MG/DL Random Glucose 278 MG/DL Calcium Level 8.4 MG/DL Sodium Level 150 MEQ/L Potassium Level 3.6 MEQ/L Chloride Level 113 MEQ/L Carbon Dioxide Level 29.3 MEQ/L Anion Gap 8 MEQ/L Estimat Glomerular Filtration Rate 33 ML/MIN Random Vancomycin Level 11.7 COMMENT (James Ontiveros) Lab, Micro, Other Results Current Medications Sodium Chloride 1,000 ml @ 70 mls/hr [id number] ONCE IV ; Start 08/28/17 at 23:47 ; Stop 08/29/17 at 14:04; Status DC Nicardipine HCl 25 mg/Sodium Chloride 250 ml @ 50 mls/hr TITRATE PRN IV Blood pressure management; Start 08/29/17 at 00:00; Stop 08/29/17 at 00:48; Status DC Propofol 100 ml @ 0 mls/hr TITRATE PRN IV SEDATION; Start 08/29/17 at 00:00; Stop 08/29/17 at 00:40; Status DC Propofol 100 ml @ As Directed STK-MED ONCE .ROUTE ; Start 08/28/17 at 23:57; Stop 08/28/17 at 23:58; Status DC Etomidate (Amidate Inj) 20 mg ONCE ONCE IVP ; Start 08/29/17 at 00:00; Stop 08/29/17 at 00:01; Status DC Succinylcholine Chloride (Quelicin Inj) 100 mg ONCE ONCE IV PUSH ; Start 08/29 at 00:00; Stop 08/29/17 at 00:01; Status DC Sodium Chloride (NS Flush) 2 ml UNSCH PRN IVF FLUSH AFTER USING IV ACCESS; Start 08/29/17 at 00:00 Rocuronium [place] (Zemuron Inj) 50 mg BOLUS ONCE IV ; Start 08/29/17 at 00:15 ; Stop 08/29/17 at 00:17; Status DC Iohexol (Omnipaque 350 Inj) 100 ml STK-MED ONCE IVCONTRAST Last administered on 08/29/17 00:18; Start 08/29/17 at 00:18; Stop 08/29/17 at 00:19; Status DC Chlorhexidine Gluconate (Peridex 0.12% Liq) 15 ml BID@08,20 MT Last administered on 09/19/17 07:41; Start 08/29/17 at 08:00 Propofol 100 ml @ 3 mls/hr TITRATE PRN IV SEDATION; Start 08/29/17 at 00:45; Stop 08/29/17 at 04:17; Status DC Nicardipine HCl (Cardene Inj) 25 mg STK-MED ONCE .ROUTE ; Start 08/29/17 at 00: 36; Stop 08/29/17 at 00:37; Status DC Nicardipine HCl 25 mg/Sodium Chloride 250 ml @ 50 mls/hr TITRATE PRN IV BLOOD PRESSURE MANAGEMENT Last administered on 09/02/17 09:52; Start 08/29/17 at 00 :45; Stop 09/02/17 at 21:12; Status DC Labetalol HCl (Trandate Inj) 10 mg Q20M PRN IV PUSH SBP>140, DBP>90 Last administered on 09/19/17 02:16; Start 08/29/17 at 00:45 Amlodipine Besylate (Norvasc) 10 mg DAILY PO Last administered on 09/19/17 08 :08; Start 08/29/17 at 09:00 Lisinopril (Prinivil) 40 mg DAILY PO Last administered on 09/04/17 09:07; Start 08/29/17 at 09:00; Stop 09/04/17 at 12:18; Status DC Sodium Chloride 1,000 ml @ 75 mls/hr [id number] IV Last administered on 06:03; Start 08/29/17 at 00:43; Stop 08/31/17 at 11:07; Status DC Acetaminophen (Tylenol) 650 mg Q6H PRN PO PAIN 1-5 AND/OR FEVER >101F Last administered on 09/18/17 22:55; Start 08/29/17 at 00:45 Morphine Sulfate (Morphine Inj) 2 mg Q2H PRN IV PUSH PAIN SCALE 6 TO 10 Last administered on 09/17/17 03:33; Start 08/29/17 at 00:45 Pantoprazole Sodium (Protonix Inj) 40 mg DAILY IV PUSH Last administered on 09:15; Start 08/29/17 at 09:00; Stop 09/11/17 at 10:25; Status DC Ondansetron HCl (Zofran Inj) 4 mg Q6H PRN IV PUSH NAUSEA OR VOMITING Last administered on 09/11/17 14:18; Start 08/29/17 at 00:45 Albuterol/ Ipratropium (Duoneb Neb) 1 ampule Q4HR NEB PRN INH WHEEZING Last administered on 09/15/17 11:55; Start 08/29/17 at 00:45; Stop 09/17/17 at 12: 47; Status DC Miscellaneous Information 1 [id number] Last administered on 08/29/17 01:00; Start 08/29/17 at 00:45 Chlorhexidine Gluconate (Chlorhexidine 2% Cloth) 3 pack Taper DAILY@04 TOP ; Start 08/29/17 at 04:00; Stop 08/25/18 at 03:59 Chlorhexidine Gluconate (Chlorhexidine 2% Cloth) 3 pack UNSCH PRN TOP HYGIENIC CARE; Start 08/29/17 at 00:45 Senna/Docusate Sodium (Melina-Colace) 1 tab BID PO Last administered on 09:15; Start 08/29/17 at 09:00; Stop 08/31/17 at 11:08; Status DC Magnesium Hydroxide (Milk Of Magnesia Liq) 30 ml Q12H PRN PO Mild constipation ; Start 08/29/17 at 00:45; Stop 08/31/17 at 11:08; Status DC Sennosides (Senokot) 17.2 mg Q12H PRN PO Moderate constipation; Start at 00:45; Stop 08/31/17 at 11:08; Status DC Bisacodyl (Dulcolax Supp) 10 mg DAILY PRN RECTAL SEVERE CONSITIPATION; Start 08/29/17 at 00:45; Stop 08/31/17 at 11:08; Status DC Lactulose (Lactulose Liq) 30 ml DAILY PRN PO SEVERE CONSITIPATION; Start 08/29 at 00:45; Stop 08/31/17 at 11:08; Status DC Fentanyl Citrate 250 ml @ 5 mls/hr TITRATE PRN IV SEDATION Last administered on 09/11/17 06:14; Start 08/29/17 at 00:45; Stop 09/11/17 at 10:20; Status DC Fentanyl Citrate 250 ml @ As Directed STK-MED ONCE .ROUTE ; Start 08/29/17 at 01:30; Stop 08/29/17 at 04:10; Status DC Propofol 100 ml @ 3 mls/hr TITRATE PRN IV SEDATION Last administered on 07:37; Start 08/29/17 at 04:30; Stop 08/31/17 at 11:08; Status DC Rocuronium [place] (Zemuron Inj) 100 mg STAT ONCE IV Last administered on 02:00; Start 08/29/17 at 02:00; Stop 08/29/17 at 04:18; Status DC Atorvastatin Calcium (Lipitor) 40 mg HS PO Last administered on 09/18/17 20:08 ; Start 08/29/17 at 21:00 Hydrochlorothiazide (Hydrodiuril) 25 mg DAILY PO Last administered on 10:37; Start 08/29/17 at 09:00; Stop 09/08/17 at 11:02; Status DC Metoprolol Tartrate (Lopressor) 100 mg BID PO Last administered on 08/31/17 09:15; Start 08/29/17 at 09:00; Stop 09/11/17 at 10:20; Status DC Clonidine (Catapres) 0.1 mg Q8HR PO Last administered on 09/06/17 04:55; Start 08/29/17 at 06:00; Stop 09/06/17 at 11:33; Status DC Sodium Chloride 1,000 ml @ 999 mls/hr Q1H1M ONCE IV Last administered on 08/29 06:10; Start 08/29/17 at 06:30; Stop 08/29/17 at 07:30; Status DC Magnesium Oxide (Mag-Ox) 800 mg UNSCH PRN PO For Magnesium 1.2 - 1.6 mg/dL; Start 08/29/17 at 13:15; Stop 08/30/17 at 15:34; Status DC Magnesium Sulfate 4 gm/Sodium Chloride 100 ml @ 50 mls/hr UNSCH PRN IV For Magnesium 0.9 - 1.1 mg/dL; Start 08/29/17 at 13:15; Stop 08/30/17 at 15:34; Status DC Magnesium Sulfate 2 gm/Sodium Chloride 100 ml @ 50 mls/hr UNSCH PRN IV For Magnesium 1.2 - 1.6 mg/dL; Start 08/29/17 at 13:15; Stop 08/30/17 at 15:34; Status DC Potassium Chloride 100 ml @ 50 mls/hr Q2H PRN IV For Potassium 2.8 - 3.2 mEq/ L Last administered on 08/29/17 17:06; Start 08/29/17 at 13:15; Stop at 15:34; Status DC Potassium Chloride 100 ml @ 50 mls/hr Q2H PRN IV For Potassium 3.3 - 3.5 mEq/ L Last administered on 08/30/17 06:13; Start 08/29/17 at 13:15; Stop at 15:34; Status DC Potassium Chloride 100 ml @ 50 mls/hr Q2H PRN IV For Potassium 2.8 - 3.2 mEq/L ; Start 08/29/17 at 13:15; Stop 08/30/17 at 15:34; Status DC Potassium Chloride 100 ml @ 25 mls/hr UNSCH PRN IV For Potassium 3.3 - 3.5 mEq /L; Start 08/29/17 at 13:15; Stop 08/30/17 at 15:34; Status DC Potassium Phosphate (K-Phos) 2,000 mg Q4H PRN PO For Phosphorus < 2.5 mg/dL; Start 08/29/17 at 13:15; Stop 08/30/17 at 15:34; Status DC Potassium Phosphate (K-Phos) 2,000 mg UNSCH PRN PO/TUBE SEE LABEL COMMENTS; Start 08/29/17 at 13:15; Stop 08/30/17 at 15:34; Status DC Potassium Phosphate 30 mmol/ Sodium Chloride 260 ml @ 42 mls/hr UNSCH PRN IV SEE LABEL COMMENTS; Start 08/29/17 at 13:15; Stop 08/30/17 at 15:34; Status DC Sodium Phosphate 30 mmol/Sodium Chloride 250 ml @ 42 mls/hr UNSCH PRN IV For Phosphorus < 2.5 mg/dL; Start 08/29/17 at 13:15; Stop 08/30/17 at 15:34; Status DC Dextrose (D50w (Vial) Inj) 25 ml UNSCH PRN IV PUSH HYPOGLYCEMIA-SEE COMMENTS; Start 08/30/17 at 08:15; Stop 09/18/17 at 11:53; Status DC Insulin Human Regular (NovoLIN R SUPPLEMENTAL SCALE) 1 Q6HR SQ Last administered on 09/18/17t 05:34; Start 08/30/17 at 12:00; Stop 09/18/17 at 11: 53; Status DC Magnesium Oxide (Mag-Ox) 800 mg UNSCH PRN PO For Magnesium 1.2 - 1.6 mg/dL; Start 08/30/17 at 08:15; Stop 08/31/17 at 13:02; Status DC Magnesium Sulfate 4 gm/Sodium Chloride 100 ml @ 50 mls/hr UNSCH PRN IV For Magnesium 0.9 - 1.1 mg/dL; Start 08/30/17 at 08:15; Stop 08/31/17 at 13:02; Status DC Magnesium Sulfate 2 gm/Sodium Chloride 100 ml @ 50 mls/hr UNSCH PRN IV For Magnesium 1.2 - 1.6 mg/dL; Start 08/30/17 at 08:15; Stop 08/31/17 at 13:02; Status DC Potassium Chloride 100 ml @ 50 mls/hr Q2H PRN IV For Potassium 2.8 - 3.2 mEq/L ; Start 08/30/17 at 08:15; Stop 08/31/17 at 13:02; Status DC Potassium Chloride 100 ml @ 50 mls/hr Q2H PRN IV For Potassium 3.3 - 3.5 mEq/L ; Start 08/30/17 at 08:15; Stop 08/31/17 at 13:02; Status DC Potassium Chloride 100 ml @ 50 mls/hr Q2H PRN IV For Potassium 2.8 - 3.2 mEq/L ; Start 08/30/17 at 08:15; Stop 08/31/17 at 13:02; Status DC Potassium Chloride 100 ml @ 25 mls/hr UNSCH PRN IV For Potassium 3.3 - 3.5 mEq /L; Start 08/30/17 at 08:15; Stop 08/31/17 at 13:02; Status DC Potassium Phosphate (K-Phos) 2,000 mg Q4H PRN PO For Phosphorus < 2.5 mg/dL; Start 08/30/17 at 08:15; Stop 08/31/17 at 13:02; Status DC Potassium Phosphate (K-Phos) 2,000 mg UNSCH PRN PO/TUBE SEE LABEL COMMENTS; Start 08/30/17 at 08:15; Stop 08/31/17 at 13:02; Status DC Potassium Phosphate 30 mmol/ Sodium Chloride 260 ml @ 42 mls/hr UNSCH PRN IV SEE LABEL COMMENTS; Start 08/30/17 at 08:15; Stop 08/31/17 at 13:02; Status DC Sodium Phosphate 30 mmol/Sodium Chloride 250 ml @ 42 mls/hr UNSCH PRN IV For Phosphorus < 2.5 mg/dL; Start 08/30/17 at 08:15; Stop 08/31/17 at 13:02; Status DC Hydralazine HCl (Apresoline Inj) 10 mg Q30M PRN IV PUSH sbp > 160 Last administered on 09/19/17t 09:08; Start 08/30/17 at 08:15 Oxycodone HCl (Roxicodone Intensol Liq) 5 mg Q4H PO Last administered on 09:16; Start 08/30/17 at 09:00; Stop 08/31/17 at 11:07; Status DC Dexmedetomidine HCl 50 ml @ 29.9 mls/hr TITRATE IV ; Start 08/30/17 at 14:15; Stop 08/30/17 at 14:46; Status DC Dexmedetomidine HCl 200 mcg/ Sodium Chloride 50 ml @ 29.9 mls/hr TITRATE IV Last administered on 08/30/17 15:27; Start 08/30/17 at 15:00; Stop 08/30/17 at 16:42; Status DC Dexmedetomidine HCl 1000 mcg/ Sodium Chloride 250 ml @ 29.9 mls/hr TITRATE IV Last administered on 08/30/17 17:58; Start 08/30/17 at 16:45; Stop 08/31/17 at 06:14; Status DC Propofol 100 ml @ 14.352 mls/ hr TITRATE PRN IV SEDATION Last administered on 09/10/17 09:59; Start 08/31/17 at 00:30; Stop 09/11/17 at 10:20; Status DC Piperacillin Sod/ Tazobactam Sod 100 ml @ 200 mls/hr Q6HR IV Last administered on 09/01/17 13:02; Start 08/31/17 at 06:00; Stop 09/01/17 at 14 :52; Status DC Morphine Sulfate (Morphine Inj) 10 mg ONCE ONCE IV PUSH Last administered on 08/31/17 06:31; Start 08/31/17 at 06:30; Stop 08/31/17 at 06:31; Status DC Propranolol HCl (Inderal) 10 mg ONCE ONCE PO Last administered on 08/31/17 06:30; Start 08/31/17 at 06:15; Stop 08/31/17 at 06:20; Status DC Oxycodone HCl (Roxicodone Intensol Liq) 10 mg Q4H PO Last administered on 09:17; Start 08/31/17 at 13:00; Stop 09/11/17 at 10:20; Status DC Propranolol HCl (Inderal) 10 mg Q6HR PO Last administered on 09/11/17 05:37; Start 08/31/17 at 12:00; Stop 09/11/17 at 10:20; Status DC Quetiapine Fumarate (SEROquel) 100 mg Q8HR PO Last administered on 09/11/17 05 :37; Start 08/31/17 at 11:00; Stop 09/11/17 at 10:20; Status DC Haloperidol Lactate (Haldol Inj) 5 mg Q4H PRN IV agitation Last administered on 09/12/17 23:04; Start 08/31/17 at 11:00; Status Future Hold Magnesium Sulfate/ Dextrose 100 ml @ 100 mls/hr Q1H IV Last administered on 12:22; Start 08/31/17 at 12:00; Stop 08/31/17 at 13:00; Status DC Bisacodyl (Dulcolax Supp) 10 mg DAILY RECTAL Last administered on 08/31/17 11 :58; Start 08/31/17 at 12:00; Status Future Hold Polyethylene Glycol (Miralax) 17 gm BID PO Last administered on 09/15/17 09:21 ; Start 08/31/17 at 12:00 Lactulose (Lactulose Liq) 30 ml BID PO Last administered on 09/04/17 19:57; Start 08/31/17 at 12:00; Status Future Hold Senna/Docusate Sodium (Melina-Colace) 1 tab BID PO Last administered on 21:00; Start 08/31/17 at 12:00 Magnesium Citrate (Citroma Liq) 300 ml ONCE ONCE PO Last administered on 08/31 11:57; Start 08/31/17 at 12:00; Stop 08/31/17 at 12:01; Status DC Rocuronium [place] (Zemuron Inj) 50 mg STK-MED ONCE .ROUTE Last administered on 08/31/17 14:36; Start 08/31/17 at 14:36; Stop 08/31/17 at 14:37; Status DC Calcium Acetate (Phoslo) 667 mg TID PO Last administered on 09/08/17 10:38; Start 08/31/17 at 18:00; Stop 09/08/17 at 11:02; Status DC Rocuronium [place] (Zemuron Inj) 50 mg STAT ONCE IV Last administered on 08/31 16:00; Start 08/31/17 at 16:00; Stop 08/31/17 at 16:01; Status DC Lactated Ringer's 1,000 ml @ 999 mls/hr BOLUS ONCE IV Last administered on 21:12; Start 08/31/17 at 20:45; Stop 08/31/17 at 21:45; Status DC Piperacillin Sod/ Tazobactam Sod 50 ml @ 100 mls/hr Q6HR IV Last administered on 09/02/17 05:59; Start 09/01/17 at 18:00; Stop 09/02/17 at 10:45; Status DC Piperacillin Sod/ Tazobactam Sod 50 ml @ 100 mls/hr Q8HR IV Last administered on 09/11/17 05:37; Start 09/02/17 at 14:00; Stop 09/11/17 at 10:20; Status DC Nicardipine HCl 50 mg/Sodium Chloride 500 ml @ 50 mls/hr TITRATE PRN IV BLOOD PRESSURE MANAGEMENT Last administered on 09/05/17 22:00; Start 09/02/17 at 21 :15; Stop 09/11/17 at 10:25; Status DC Rocuronium [place] (Zemuron Inj) 50 mg STK-MED ONCE .ROUTE Last administered on 09/03/17 09:22; Start 09/03/17 at 09:22; Stop 09/03/17 at 09:23; Status DC Rocuronium [place] (Zemuron Inj) 50 mg NOW ONCE IV PUSH Last administered on 09/03/17 10:13; Start 09/03/17 at 10:15; Stop 09/03/17 at 10:16; Status DC Rocuronium [place] (Zemuron Inj) 50 mg NOW ONCE IV PUSH Last administered on 09/03/17 11:00; Start 09/03/17 at 11:00; Stop 09/03/17 at 11:01; Status DC Potassium Chloride 30 meq/ Sodium Chloride 115 ml @ 38.333 mls/ hr ONCE ONCE IV-CENTRAL Last administered on 09/03/17 13:36; Start 09/03/17 at 14:00; Stop 09/03/17 at 16:59; Status DC Dexamethasone Sodium Phosphate (Decadron Inj) 6 mg Q6H IV PUSH Last administered on 09/05/17 06:09; Start 09/04/17 at 13:00; Stop 09/05/17 at 11 :55; Status DC Diphenhydramine HCl (Benadryl Inj) 50 mg Q6H IV Last administered on 08:27; Start 09/04/17 at 13:00; Stop 09/07/17 at 12:59; Status DC Lorazepam (Ativan) 2 mg Q8H PO Last administered on 09/07/17 14:35; Start at 15:00; Stop 09/07/17 at 15:18; Status DC Acetaminophen 0 ml @ As Directed STK-MED ONCE IV ; Start 09/05/17 at 07:52; Stop 09/05/17 at 07:53; Status DC Insulin Detemir (Levemir Inj) 10 units Q12H SQ Last administered on 09/11/17 09:16; Start 09/05/17 at 10:00; Stop 09/11/17 at 10:21; Status DC Dexamethasone Sodium Phosphate (Decadron Inj) 4 mg Q12H IV PUSH Last administered on 09/07/17 05:28; Start 09/05/17 at 18:00; Stop 09/07/17 at 17 :59; Status DC Albuterol/ Ipratropium (Duoneb Neb) 1 ampule Q6HR NEB NEB Last administered on 09/08/17 11:05; Start 09/05/17 at 12:00; Stop 09/08/17 at 12:59; Status DC Rocuronium [place] (Zemuron Inj) 50 mg BOLUS STAT IV Last administered on 16:47; Start 09/05/17 at 16:37; Stop 09/05/17 at 16:38; Status DC Fluticasone Propionate (Flonase Tae Spr) 2 spray DAILY EACH NARE Last administered on 09/19/17 08:07; Start 09/05/17 at 17:00 Lactated Ringer's 1,000 ml @ 30 mls/hr Q24H PRN IV SEE LABEL COMMENTS; Start 09/05/17 at 23:00; Stop 09/08/17 at 22:59; Status DC Sodium Chloride 500 ml @ 30 mls/hr [id number] PRN IV SEE LABEL COMMENTS; Start at 23:00; Stop 09/08/17 at 22:59; Status DC Metoprolol Tartrate (Lopressor) 25 mg RADIOLOGY PHYSICIAN ASSISTANT PRN PO SEE LABEL COMMENTS; Start 09/05/17 at 23:00; Stop 09/08/17 at 22:59; Status DC Povidone Iodine (Betadine 5% Antisepsis Kit) 1 applic RADIOLOGY PHYSICIAN ASSISTANT PRN EACH NARE SEE LABEL COMMENTS; Start 09/05/17 at 23:00; Stop 09/08/17 at 22:59; Status DC Chlorhexidine Gluconate (Chlorhexidine 2% Cloth) 3 pack RADIOLOGY PHYSICIAN ASSISTANT PRN TOPICAL SEE LABEL COMMENTS; Start 09/05/17 at 23:00; Stop 09/08/17 at 22:59; Status DC Insulin Human Regular (NovoLIN R INJ) See Protocol Table ... RADIOLOGY PHYSICIAN ASSISTANT PRN SQ SEE PROTOCOL TABLE; Start 09/05/17 at 23:00; Stop 09/08/17 at 22:59; Status DC Potassium Chloride 100 ml @ 50 mls/hr ONCE ONCE IV Last administered on 09/06 10:16; Start 09/06/17 at 09:30; Stop 09/06/17 at 11:29; Status DC Clonidine (Catapres) 0.3 mg Q8HR PO Last administered on 09/19/17 13:56; Start 09/06/17 at 14:00 Clonidine (Catapres) 0.3 mg ONCE ONCE PO Last administered on 09/06/17 11:55 ; Start 09/06/17 at 11:45; Stop 09/06/17 at 11:46; Status DC Heparin Sodium (Porcine) (Heparin Inj) 5,000 units Q12HR SQ ; Start 09/06/17 at 21:00; Stop 09/06/17 at 21:00; Status DC Gelatin (Gelfoam 12 Mm/7 Mm Top) 1 foam STK-MED ONCE .ROUTE Last administered on 09/07/17 09:47; Start 09/07/17 at 09:47; Stop 09/07/17 at 09:48; Status DC Silver Nitrate/ Potassium Nitrate (Silver Nitrate Applicators) 1 appl ONCE ONCE TOPICAL Last administered on 09/07/17 10:15; Start 09/07/17 at 10:15; Stop 09/07/17 at 10:47; Status DC Potassium Chloride 100 ml @ 50 mls/hr Q2H IV Last administered on 09/07/17 12:45; Start 09/07/17 at 10:45; Stop 09/07/17 at 14:44; Status DC Desmopressin Acetate (Ddavp Tae Spr) 1 spray ONCE ONCE EACH NARE Last administered on 09/07/17 15:00; Start 09/07/17 at 15:00; Stop 09/07/17 at 15 :01; Status DC Propofol (Diprivan 200 Mg/20 ml Inj) 200 mg STK-MED ONCE IV ; Start 09/06/17 at 12:00; Stop 09/07/17 at 15:10; Status DC Lorazepam (Ativan) 1 mg Q12H PO Last administered on 09/09/17 20:27; Start 09/07/17 at 19:00; Stop 09/11/17 at 10:25; Status DC Gelatin (Gelfoam 12 Mm/7 Mm Top) 1 foam Q2HR PRN TOPICAL if still bleeding from peg Last administered on 09/08/17 08:00; Start 09/07/17 at 19:45 Potassium Chloride 100 ml @ 50 mls/hr Q2H IV Last administered on 09/08/17 11:59; Start 09/08/17 at 09:00; Stop 09/08/17 at 12:59; Status DC Potassium Chloride (KCl) 40 meq ONCE ONCE PO ; Start 09/08/17 at 09:00; Stop 09/08/17 at 12:05; Status DC Potassium Chloride (KCl Powder) 40 meq ONCE ONCE PEG Last administered on 12:15; Start 09/08/17 at 12:15; Stop 09/08/17 at 12:21; Status DC Midazolam HCl (Versed Inj) 10 mg ONCE ONCE IV PUSH ; Start 09/08/17 at 13:00; Stop 09/08/17 at 13:41; Status DC Sodium Chloride 1,000 ml @ 999 mls/hr BOLUS ONCE IV Last administered on 13:00; Start 09/08/17 at 13:00; Stop 09/08/17 at 14:00; Status DC Rocuronium [place] (Zemuron Inj) 100 mg BOLUS ONCE IV ; Start 09/08/17 at 13: 00; Stop 09/08/17 at 13:44; Status DC Albuterol/ Ipratropium (Duoneb Neb) 1 ampule Q6HR NEB NEB Last administered on 09/12/17 15:34; Start 09/08/17 at 16:00; Stop 09/12/17 at 15:59; Status DC Midazolam HCl (Versed Inj) 10 mg STK-MED ONCE .ROUTE Last administered on 09/08 13:39; Start 09/08/17 at 13:12; Stop 09/08/17 at 13:13; Status DC Rocuronium [place] (Zemuron Inj) 100 mg STK-MED ONCE .ROUTE Last administered on 09/08/17 13:12; Start 09/08/17 at 13:12; Stop 09/08/17 at 13:13; Status DC Midazolam HCl (Versed Inj) 5 mg STK-MED ONCE .ROUTE Last administered on 13:52; Start 09/08/17 at 13:44; Stop 09/08/17 at 13:45; Status DC Midazolam HCl (Versed Inj) 5 mg STK-MED ONCE .ROUTE Last administered on 13:52; Start 09/08/17 at 13:49; Stop 09/08/17 at 13:50; Status DC Potassium Bicarb/ Potassium Chloride (K-Lyte Cl Eff) 25 meq ONCE ONCE PO Last administered on 09/09/17 11:15; Start 09/09/17 at 11:00; Stop 09/09/17 at 11:03; Status DC Metoclopramide HCl (Reglan Inj) 5 mg Q8HR IV PUSH Last administered on 22:55; Start 09/09/17 at 22:00; Stop 09/11/17 at 10:25; Status DC Potassium Chloride 100 ml @ 50 mls/hr Q2H IV Last administered on 09/10/17 16 :01; Start 09/10/17 at 13:00; Stop 09/10/17 at 16:59; Status DC Insulin Detemir (Levemir Inj) 12 units Q12H SQ Last administered on 09/17/17 10:42; Start 09/11/17 at 22:00; Stop 09/17/17 at 15:27; Status DC Oxycodone HCl (Roxicodone Intensol Liq) 5 mg Q4H PO Last administered on 08:28; Start 09/11/17 at 13:00; Stop 09/17/17 at 12:47; Status DC Propranolol HCl (Inderal) 30 mg Q6HR PO Last administered on 09/17/17 04:23; Start 09/11/17 at 12:00; Stop 09/17/17 at 12:47; Status DC Quetiapine Fumarate (SEROquel) 50 mg Q8HR PO Last administered on 09/12/17 21: 37; Start 09/11/17 at 14:00; Status Future Hold Modafinil (Provigil) 200 mg DAILY PO Last administered on 09/12/17 09:07; Start 09/11/17 at 12:00; Status Future Hold Water (Free Water) VOLUME: 200 ML Q4HR G-TUBE Last administered on 09/18/17 08 :00; Start 09/11/17 at 12:00; Stop 09/18/17 at 11:53; Status DC Famotidine (Pepcid) 10 mg BID NG Last administered on 09/19/17 08:08; Start 09/11/17 at 21:00 Heparin Sodium (Porcine) (Heparin Inj) 5,000 units Q12HR SQ Last administered on 09/19/17 08:09; Start 09/11/17 at 21:00 Lorazepam (Ativan Inj) 1 mg ONCE ONCE IV PUSH Last administered on 09/13/17 02:57; Start 09/13/17 at 02:45; Stop 09/13/17 at 02:46; Status DC Pharmacy Profile Note 0 ml @ 0 mls/hr UNSCH OTHER ; Start 09/13/17 at 02:45; Stop 09/17/17 at 10:11; Status DC Piperacillin Sod/ Tazobactam Sod 50 ml @ 100 mls/hr Q6H IV Last administered on 09/19/17 14:41; Start 09/13/17 at 03:00; Stop 09/19/17 at 23:00 Nicardipine HCl 25 mg/Sodium Chloride 250 ml @ 50 mls/hr TITRATE PRN IV Blood pressure management Last administered on 09/17/17 04:57; Start 09/13/17 at 02: 45; Stop 09/17/17 at 12:47; Status DC Dantrolene Sodium (Dantrium Inj) 70 mg ONCE ONCE IV Last administered on 03:55; Start 09/13/17 at 03:00; Stop 09/13/17 at 03:01; Status DC Vancomycin HCl 2000 mg/Sodium Chloride 520 ml @ 250 mls/hr ONCE ONCE IV Last administered on 09/13/17 05:52; Start 09/13/17 at 04:00; Stop 09/13/17 at 06:04 ; Status DC Vancomycin HCl 2500 mg/Sodium Chloride 525 ml @ 250 mls/hr ONCE ONCE IV Last administered on 09/14/17 12:29; Start 09/14/17 at 12:00; Stop 09/14/17 at 14:05 ; Status DC Potassium Chloride 100 ml @ 50 mls/hr Q2H IV Last administered on 09/15/17 10 :22; Start 09/15/17 at 08:15; Stop 09/15/17 at 12:14; Status DC Dexamethasone Sodium Phosphate (Decadron Inj) 6 mg Q6HR IV PUSH Last administered on 09/17/17 04:24; Start 09/15/17 at 14:15; Stop 09/17/17 at 12:35 ; Status DC Diphenhydramine HCl (Benadryl Inj) 25 mg Q6H IV PUSH Last administered on 08:06; Start 09/15/17 at 15:00; Stop 09/18/17 at 14:59; Status DC Lidocaine HCl (Lidocaine Pf 2% Neb) 1 ml Q6HR NEB PRN NEB cough/bronchial irritation; Start 09/16/17 at 11:30 Vancomycin HCl 1500 mg/Sodium Chloride 515 ml @ 257.5 mls/ hr ONCE ONCE IV Last administered on 09/16/17 17:07; Start 09/16/17 at 15:00; Stop 09/16/17 at 16:59; Status DC Insulin Human Regular (NovoLIN R SUPPLEMENTAL SCALE) 5 ONCE ONCE SQ Last administered on 09/16/17 18:14; Start 09/16/17 at 18:00; Stop 09/16/17 at 18:01 ; Status DC Labetalol HCl (Trandate) 300 mg Q8HR PEG Last administered on 09/19/17 13:56 ; Start 09/17/17 at 14:00 Labetalol HCl (Trandate) 300 mg NOW ONCE PEG Last administered on 09/17/17 04 :23; Start 09/17/17 at 04:15; Stop 09/17/17 at 04:16; Status DC Dexamethasone Sodium Phosphate (Decadron Inj) 6 mg Q12HR IV PUSH Last administered on 09/19/17 08:09; Start 09/17/17 at 21:00; Stop 09/20/17 at 20: 59 Albuterol/ Ipratropium (Duoneb Neb) 1 ampule Q6HR NEB INH Last administered on 09/19/17 17:09; Start 09/17/17 at 16:00 Oxycodone HCl (Roxicodone Intensol Liq) 5 mg Q6H PO Last administered on 08:05; Start 09/17/17 at 15:00; Stop 09/18/17 at 12:04; Status DC Propranolol HCl (Inderal) 40 mg Q6HR PO Last administered on 09/19/17 17:33; Start 09/17/17 at 18:00 Insulin Detemir (Levemir Inj) 15 units Q12H SQ Last administered on 09/18/17 09:49; Start 09/17/17 at 22:00; Stop 09/18/17 at 11:53; Status DC Water (Free Water) 300 ml Q4HR G-TUBE Last administered on 09/19/17 16:00; Start 09/18/17 at 12:00 Insulin Detemir (Levemir Inj) 18 units Q12H SQ Last administered on 09/18/17 20:09; Start 09/18/17 at 22:00; Stop 09/19/17 at 08:52; Status DC Dextrose (D50w (Vial) Inj) 25 ml UNSCH PRN IV PUSH HYPOGLYCEMIA-SEE COMMENTS; Start 09/18/17 at 12:00 Insulin Human Regular (NovoLIN R SUPPLEMENTAL SCALE) 1 Q4HR SQ Last administered on 09/19/17 16:00; Start 09/18/17 at 12:00 Oxycodone HCl (Roxicodone Intensol Liq) 5 mg Q6H PRN PO pain 6-10 Last administered on 09/18/17 22:56; Start 09/18/17 at 15:00 Hydralazine HCl (Apresoline) 50 mg Q8HR PO Last administered on 09/19/17 05: 12; Start 09/18/17 at 14:00; Stop 09/19/17 at 08:52; Status DC Insulin Detemir (Levemir Inj) 20 units Q12H SQ Last administered on 09/19/17 09:07; Start 09/19/17 at 10:00 Hydralazine HCl (Apresoline) 100 mg Q8HR PO Last administered on 09/19/17 13: 56; Start 09/19/17 at 14:00 Dextrose 1,000 ml @ 42 mls/hr [id number] IV Last administered on 09/19/17 09:07 ; Start 09/19/17 at 08:[address] 09/16/17 0000 Signed Impressions: Service Date/Time: September 01:03 - CONCLUSION: 1. Evidence of acute pansinusitis. 2. Opacification of multiple bilateral mastoid air cells most characteristic of mastoiditis. 3. Mildly prominent cervical chain nodes which may be reactive. Angelo Conn MD Upper Extremity Ultrasound 09/15/17 0000 Signed Impressions: Service Date/Time: Friday, September 15, 2017 17:14 - CONCLUSION: Occlusive thrombus within the left cephalic vein and nonocclusive thrombus within the right cephalic vein. Ric Jack MD Lower Extremity Ultrasound 09/15/17 0000 Signed Impressions: Service Date/Time: Friday, September 15, 2017 16:58 - CONCLUSION: No evidence of DVT within the lower extremities. Ric Jack MD Chest X-Ray 09/14/17 0600 Signed Impressions: Service Date/Time: Thursday, September 14, 2017 03:56 - CONCLUSION: Stable appearance. Angelo Conn MD (Genaro Jhaveri MD) Medical Decision Making Impression and Plan Impression: 1. Large thalamic intracranial hemorrhage. Lethargic vs drowsy, opens eyes & moves LUE to noxious stimulation. CT brain w/improvement of left thalamic haemorrhage, decreased midline shift, blood noted in posterior horns, no acute findings. Reviewed labs for today. Decrease in leukocytosis. Sodium 150. Blood cultures w/no growth in 2 days, preliminary report. Plan: Discussed plan of care with Nursing. Primary management per Forest Fire Officer. Neuro checks. Palliative Care consult. Continue full supportive care measures per family. (James Ontiveros) Attending Statement 1. Large thalamic intracranial hemorrhage. CT brain w/improvement of left thalamic haemorrhage, decreased midline shift, blood noted in posterior horns, no acute findings. Primary management per Forest Fire Officer. Continue Neuro checks. Palliative Care consult. Continue full supportive care measures The exam, history, and the medical decision-making described in the above note were completed with the assistance of the mid-level provider. I reviewed and agree with the findings presented. I attest that I had a [id number] encounter with the patient on the same day, and personally performed and documented my assessment and findings in the medical record. (Genaro Jhaveri MD) James Ontiveros Sep 16, 2017 10:15 Genaro Jhaveri MD Sep 19, 2017 20:14
[2017-09-16] MEDS: INSULIN DETEMIR 100 UNITS/ML VIAL SQ SCH ×2 (10:51→21:31)
[2017-09-16] MEDS: LABETALOL HCL 100 MG/20 ML VIAL IV PUSH PRN ×2 (11:05→17:05)
[2017-09-16] MEDS ORDERED: RESP: LIDOCAINE HCL 2% 2 ML NEB NEB PRN (11:30)
--- NOTE | 2017-09-16 12:22 | HHI.CCPN ---
Subjective Remarks/Hospital Course Hospital Course: 46 y/o man with longstanding hypertension and previous CVA presents obtunded with new neurological symptoms noticed prior to arrival. Timeline unclear. Required intubation in ED for airway protection. CT head shows left thalamic bleed and shift away from bleed. Toxicology screen pending. Subjective: 08/30: encephalopathy persists. bp under better control, still on cardene. on sedation vacation, moves left side spontaneously but nothing on right. 08/31: overnight, severely agitated, requiring high dose sedation. also, lambert obstructed, new lambert placed with improvement in obstruction. this morning, RAFAELA with Cr up to 3. urine Na < 10, suggestive of pre-renal etiology. continued ivf. high peak pressures on vent. suction lavage with thick tenacious secretions. bronch with left lobe mucous plugging. bronchospasm a significant problem requiring iv magnesium and duonebs. finally attempted small paralytic dose with improvement in abdominal breathing and fighting ventilator. 09/01: No improvement in neuro exam, intermittent jerking movements noted by the RN no seizure. Creatinine for urine output adequate. I have consulted nephrology. We'll check CT of the head repeat EEG tomorrow a.m. 09/02: Clinically remains same. Did not tolerate sedation vacation, became hypertensive. CT head today showed slight improvement in L thalamic and IVH. Dr. Tinajero is the neurosurgeon, Dr. Jhaveri covering 09/03: Still unable to tolerate sedation vacation. Becomes very asynchronous with the vent with desaturations. Discussed with daughters about possible tracheostomy, they want to discuss with their mom, patient's ex -. Creatinine has worsened to 5.1 but no acute indication for dialysis. Will check ABG urine output 1.8 L in 24 hours 09/04: Remains intubated sedated synchronous with the vent. Noted to have tongue swelling/angioedema. Lisinopril discontinued. Placed on Decadron and IV Benadryl. Plan for tracheostomy and PEG tube placement next week 09/05: Patient remains intubated sedated critically ill. No change or improvement in neuro status. Lisinopril discontinued yesterday Decadron and Benadryl started tongue swelling is improved. Hyperglycemia secondary to Decadron, random blood sugar 360. Will wean to DC. Plan for trach and PEG this week, if family agreeable 09/06: Angioedema improving with Decadron and Benadryl. Still gets very agitated with sedation lightening. Needs improved blood pressure control increase clonidine to 0.3 every 8 hours. Plan for PEG today and Trach 09/08/1709/07: Stable overnight, except bleeding/oozing from the PEG site. We'll give single dose of nasal DDAVP. Creatinine slightly improved to 4.4, urine output 3.9 L in 24 hours. Plan for tracheostomy 09/08/17. 09/08: Tracheostomy completed. Tongue edema unchanged. 09/09: Tolerating spontaneous respiration on trach. Tongue edema persists. 09/10: Tolerating progression to trach collar today. 09/11: t-piece x 24h. still not waking up and encephalopathic. however, not agitated. still hypertensive, tachycardic. will need placement. Cr continues to improve. still hypernatremic. 09/12: delayed note entry. seen around 1300 on 09/12. wbc slightly up, fever curve uptrending, but has history of fevers likely from thalamic stroke. sputum , urine cultures sent at 0600. will await these results before deciding further courses of action. still on t-piece and no overall clinical change. 09/13: Overnight events noted, febrile to 105, with tremor, clonus, rigidity. given dantrolene for possible NMS by Dr. Asif and stopped Haldol and Seroquel. Provigil also stop due to possibility of serotonin syndrome. Patient was started on Zosyn and vancomycin and panculture sent, and placed on full vent support due to tachypnea. Temp came down to 101 (his baseline) after dantrolene one dose. On my exam at this time patient does not have a rigidity and blood temperatures 101. Nursing staff reports thick yellow secretions, chest x-ray shows possible left lower lobe infiltrate. WBC increased from 15.5 to 23.3. I will get the CT of the chest to evaluate for lung infiltrate and also CT abdomen and pelvis to rule out any intra-abdominal source of sepsis. Hold off on Ativan at this time. Patient is also getting a CT of the head 09/14: Patient continues to spike fever but at baseline. WBC count is trending down (23.3 to 18.4). Sputum culture growing Klebsiella. Opens eyes spontaneously today. Weakly give thumbs up to the RN (I did not witness it) 09/15: Continues to spike fever, appreciate ID consult. I have ordered venous ultrasound of all extremities. Also check CT of the sinuses rule out sinusitis and also evaluate for transient swelling pharyngeal/retropharyngeal abscesses. ENT consulted for persistent angioedema 09/16: On CPAP. Eyes open. Following commands on LUE. Bilateral cephalic vein thrombus, occlusive on Left. CT face shows pansinusitis and mastoiditis. ENT has seen for persistent angioedema and tongue swelling official consult pending Objective Vital Signs Date Time Temp Pulse Resp B/P (MAP) Pulse Ox O2 Delivery O2 Flow Rate FiO2 09/16/17 11:32 95 T-piece 35 09/16/17 10:00 88 09/16/17 08:00 99.7 21 187/76 (113) Intake and Output 09/16/17 09/16/17 09/17/17 08:00 16:00 00:00 Intake Total 1113 ml Output Total 1000.0 ml Balance 113.0 ml Result Diagram: 09/16/17 0433 09/16/17 043 Objective Remarks Gen: Middle-aged male, lying in bed, encephalopathic, on ventilator support support, CPAP. Head: Atraumatic. Conjunctivae clear. ENT: Tongue swollen/angioedema with laceration from bite, stable Neck: Supple, trach site clean, dry. Lungs: CPAP 10/5. equal chest rise. Few rhonchi and crackles bilaterally Heart: RR. Intermittently hypertensive. Abdomen: Mildly distended. PEG site clean. Extremities: Warm, well perfused. Neuro: Opens eyes spontaneously today, following commands LUE by giving thumbs up. w/d to pain left UE and bilateral LE. pupils equal, round A/P Problem List: (1) Intracranial hemorrhage ICD Code: I62.9 - Nontraumatic intracranial hemorrhage, unspecified Status: Acute (2) Hemorrhagic stroke ICD Code: I61.9 - Nontraumatic intracerebral hemorrhage, unspecified Status: Acute (3) Hypertensive emergency ICD Code: I10 - Hypertensive emergency Status: Acute Assessment and Plan Assessment: 46yM with left thalamic hypertensive hemorrhagic IPH, ICH score 2. remains off pathway, poor neurologic exam. wean off all sedatives. work towards controlling delirium. needs placement, but funding issues will be a problem. has history of fevers, likely secondary to thalamic bleed, but with rising wbc, will check cultures. if clinically declines, would start empiric abx. Active Problems: Acute encephalopathy - persistent. Left Thalamic Hemorrhage, with IV extension Intracerebral Hemorrhage, ICH score 2 Respiratory failure s/p trach Healthcare associated pneumonia Sepsis Pansinusitis, Mastoiditis Bilateral upper extremity superficial thrombophlebitis Possible NMS Fever central vs infectious Hypertensive Emergency- resolved. Agitated Delirium - resolved. 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 Hyperglycemia Hypertension Hypernatremia Hypoactive delirium Plan: NEURO: - Seroquel and Haldol discontinued due to possible NMS - Discontinued modafinil 200mg daily due to possibility of serotonin syndrome - oxy to 5mg po q4h - propranolol to 40mg po q6h - continue clonidine 0.3 mg tid - Repeat CT of the head improving bleed RESP: - CPAP trial with TP as tolerated - CT of the chest 09/13/17 -LLL infiltrate - Broad-spectrum antibiotics as below (Zosyn and Vanc) - DuoNeb every 6 hours scheduled and when necessary, ventilator bundle - CT face shows pansinusitis and mastoiditis - ENT consulted for persistent angioedema and sinusitis - Continue Decadron and Benadryl CVS: - Intermittent hypertension now well controlled - Nicardipine to keep systolic blood pressure less than 150, now off - Continue clonidine, amlodipine and propranolol GI: - Status post PEG tube continue tube feeds - Having bowel movements - Free water 200mL per tube q6h - Pepcid per tube /RENAL: - recheck daily sodium on bmp - continue Lambert catheter given prior urinary obstruction and resolving rafaela - Nephrology following, creatinine stable ID - New sepsis with high white count and high fever, most likely secondary to pneumonia - CT maxillofacial shows pansinusitis and mastoiditis, also upper extremity superficial thrombophlebitis on both contributing to fever - ID consult appreciated - ENT consulted for persistent angioedema - Restarted Decadron and Benadryl, continue Flonase - Continue vancomycin and Zosyn - Follow-up on blood urine and sputum culture-Klebsiella in sputum HEME: - Leukocytosis secondary to probable sepsis MSK: - OOB to stretcher chair daily - PT consult ENDO: - Levemir to 12 units SQ q12h - keep med scale q6h SSI PROPH: - sqh 5000 q12h (2 weeks post bleed, stable). Pepcid for GI prophylaxis Level 3 Ladan Pierre MD Sep 16, 2017 12:22
--- NOTE | 2017-09-16 13:29 | HHI.NPPN ---
Subjective Renal Failure: Acute Additional Remarks Continues to be febrile. Off sedation. On trach O2. Non oliguric. Review of Systems General General Remarks unable to obtain Objective Data Data 09/16/17 09/17/17 19:00 07:00 Output Total 0 ml Balance 0 ml Tube Feeding Residual Discard 0 ml Vital Signs Date Time Temp Pulse Resp B/P (MAP) Pulse Ox O2 Delivery O2 Flow Rate FiO2 09/16/17 12:00 99.1 86 19 156/70 (98) 95 09/16/17 12:00 87 09/16/17 11:32 95 T-piece 35 09/16/17 11:21 98 35 09/16/17 10:00 88 09/16/17 08:00 99.7 88 21 187/76 (113) 95 09/16/17 08:00 40 09/16/17 08:00 88 09/16/17 07:36 35 09/16/17 07:36 100 35 09/16/17 06:00 80 09/16/17 04:08 99 40 09/16/17 04:00 100.4 82 16 158/94 (115) 97 09/16/17 04:00 40 09/16/17 04:00 82 09/16/17 02:00 79 09/16/17 01:36 100 40 09/16/17 01:00 100 100 09/16/17 00:00 89 09/16/17 00:00 40 09/16/17 00:00 100.6 89 16 140/77 (98) 100 09/15/17 22:00 83 09/15/17 21:00 40 09/15/17 20:31 100 40 09/15/17 20:00 84 09/15/17 20:00 100.8 83 16 130/75 (93) 100 09/15/17 20:00 40 09/15/17 18:00 95 09/15/17 16:32 100 40 09/15/17 16:00 95 09/15/17 16:00 40 09/15/17 16:00 101.0 96 18 137/75 (95) 09/15/17 14:00 94 -: 09/16/17 0433 09/16/17 0433 Tubes & Lines: Coleman Tubes & Lines Comment PEG, trach Drip Comment fentanyl, propofol Physical Exam General Appearance: No Acute Distress Neck Neck Exam: Neck Supple Pulmonary Resp Exam: Clear Bilaterally, Breath Sounds Equal Cardiology CV Exam: Regular, Normal Sinus Rhythm Gastrointestinal/Abdomen GI Exam: Soft, Non-Tender, Bowel Sounds Present, Positive Bowel Movement, Distended Genitourinary Exam: Clear Urine Musculoskeletal MS Exam: Joints Intact, Normal Tone, Unable to Ambulate Extremeties Extremities Exam: Moderate Edema Neurologic Neuro Exam: Unresponsive, Sedated Assessment/Plan Discussed Condition With: Relative Assessment Summary: Hypertension Electrolyte Assessment: Hypokalemia Problem List: (1) Acute kidney injury ICD Codes: N17.9 - Acute kidney failure, unspecified Status: Acute Plan: Baseline creatinine around 2. current cr 2.5 He most likely has underlying CKD. RAFAELA most likely due to renal hypoperfusion resulting from normalization of BP. Non oliguric, creatinine is slightly higher today. Monitor. Carefully monitor Vancomycin dosing, avoid levels above 20. Chose alternative if possible. Continue to replace potassium as needed. (2) Hemorrhagic stroke ICD Codes: I61.9 - Nontraumatic intracerebral hemorrhage, unspecified Status: Acute Plan: Neurosurgery has followed, serial imaging reviewed. Non surgical management at this time. S/P PEG and tracheostomy Palliative is following, meaningful recovery is questionable. (3) Hypertension ICD Codes: I10 - Hypertension Status: Chronic Plan: BP improved. Continue oral medications. Monitor and titrate to effect. (4) Sepsis ICD Codes: A41.9 - Sepsis, unspecified organism Status: Resolved Plan: Febrile. On Vancomycin and Zosyn. Sputum culture from 09/12 grew Klebsiella. Timoteo Kuo MD Sep 16, 2017 13:29
--- NOTE | 2017-09-16 14:48 | HHI.HCPN ---
Reason for visit a. To assist with evaluation and management of symptoms including: Pain and dyspnea. b. To assist medical decision maker(s) with: better understanding of current medical conditions; weighing benefits/burdens of medical treatment options; making medical treatment decisions. . (Soniya Elliott) Subjective/Interval History Mr. Matos is a 46-year-old male with a medical history significant for TIA, hypertension and migraines. Patient presented to ED via EMS on 08/28/17 as stroke alert. Head CT revealing acute hemorrhagic stroke in the right thalamus with extension of the lateral third ventricles with a shift onto the right side of 6 mm. patient was subsequently intubated and placed on mechanical ventilation. Palliative care was consulted for further clarifications of goals of care and emotional support. Dual visit with palliative care social work therapist Crissy Castaneda. Patient was seen in surgical ICU. Status post tracheostomy and PEG tube placement. Patient off sedation for the past week. Patient was found today with eyes opened, appears alert. Squeezing my hand to command with left hand. Max temperature today 100.6. Remains hypertensive with SBP in the 150s to 180s. Tolerating CPAP trials yesterday, currently on T-piece for the past 2 hours. Urinary output remains good, renal function stable. Laboratory workup today revealing WBC 13.6 , Hgb stable and 9.0, platelet count 365. ENT, Dr. Joseph consulted today for evaluation of glossal edema. CT maxillofacial today revealing acute pansinusitis. Lower extremity ultrasound negative for DVT, upper extremity ultrasound positive for occlusive DVT to left cephalic, nonocclusive to right cephalic. Blood cultures 09/13/17 with no growth in 3 days. Spoke with patient's ex- Janet Matos and daughter Nichole at bedside. Medical update provided. Reviewed current medical treatment and recommendations. Family verbalizing being very hopeful with patient's clinical improvement. Ongoing emotional support and active listening provided to family. Gently reviewed that patient remains a high risk for further complications, continue decline and . Family verbalized appreciation for the care provided. Case discussed with bedside RN Berlin. . Family/friend interactions See interval note. . (Soniya Elliott) Advance Directives Living Will: Never completed Health Care Surrogate: Never completed Durable Power of Loan Representative: Never completed (Soniya Elliott) Advance Directive Specifics Health Care Surrogate(s): No advance directives completed as per patient's family. Patient is . As per [place] law, healthcare proxy decision making falls to the majority of patient's adult children for which he has 3 (4th child is 4 years old). Daughter Shannan, daughter Nichole and son Hadley Maddox wish to participate. . Significant change in goals: Goals of care remain aggressive. . (Soniya Elliott) Objective Vital Signs Date Time Temp Pulse Resp B/P (MAP) Pulse Ox O2 Delivery O2 Flow Rate FiO2 09/16/17 14:00 81 09/16/17 12:00 99.1 86 19 156/70 (98) 95 09/16/17 12:00 87 09/16/17 11:32 95 T-piece 35 09/16/17 11:21 98 35 09/16/17 10:00 88 09/16/17 08:00 99.7 88 21 187/76 (113) 95 09/16/17 08:00 40 09/16/17 08:00 88 09/16/17 07:36 35 09/16/17 07:36 100 35 09/16/17 06:00 80 09/16/17 04:08 99 40 09/16/17 04:00 100.4 82 16 158/94 (115) 97 09/16/17 04:00 40 09/16/17 04:00 82 09/16/17 02:00 79 09/16/17 01:36 100 40 09/16/17 01:00 100 100 09/16/17 00:00 89 09/16/17 00:00 40 09/16/17 00:00 100.6 89 16 140/77 (98) 100 09/15/17 22:00 83 09/15/17 21:00 40 09/15/17 20:31 100 40 09/15/17 20:00 84 09/15/17 20:00 100.8 83 16 130/75 (93) 100 09/15/17 20:00 40 09/15/17 18:00 95 09/15/17 16:32 100 40 09/15/17 16:00 95 09/15/17 16:00 40 09/15/17 16:00 101.0 96 18 137/75 (95) Intake & Output 09/16/17 09/16/17 07:00 19:00 Intake Total 1113 ml Output Total 1000 ml 0 ml Balance 113 ml 0 ml Tube Feeding 513 ml Other 600 ml Output Urine Total 1000 ml Tube Feeding Residual Discard 0 ml 0 ml # Bowel Movements 0 Physical Exam CONSTITUTIONAL/GENERAL: This is an obese patient resting in bed in no acute distress. TUBES/LINES/DRAINS: PEG tube, tracheostomy, SCDs, Coleman catheter, PIV's. SKIN: No jaundice, rashes, or lesions. No wounds seen anteriorly. Skin temperature appropriate. Not diaphoretic. HEAD: Atraumatic. Normocephalic. EYES: No scleral icterus. Bilateral injected conjunctiva. ENT: Hearing appears normal. Nose without bleeding or purulent drainage. Moist oral mucosa. Glossal edema. NECK: Trachea midline. Supple. CARDIOVASCULAR: Regular rate and rhythm without murmurs, gallops, or rubs. Peripheral pulses symmetric. RESPIRATORY/CHEST: Symmetric, clear breath sounds bilaterally. Trach, tolerating t-piece. GASTROINTESTINAL: Abdomen obese, large, round. Unable to appreciate hepatomegaly secondary to body habitus. Bowel sounds active. PEG tube in place. GENITOURINARY: Without palpable bladder distension. Coleman catheter in place. MUSCULOSKELETAL: Extremities without clubbing, cyanosis. No mottling or clubbing. Edema to all 4 extremities. NEUROLOGICAL: tracking with eyes. right-sided hemiparesis. Following commands with left upper extremity. PSYCHIATRIC: Appears calm. . (Soniya Elliott) Diagnostic Tests Laboratory Laboratory Tests Test 09/14/17 06:15 09/15/17 06:05 09/15/17 13:55 09/16/17 04:33 White Blood Count 18.4 TH/MM3 (4.0-11.0) 14.6 TH/MM3 (4.0-11.0) 13.6 TH/MM3 (4.0-11.0) Red Blood Count 3.87 MIL/MM3 (4.50-5.90) 3.55 MIL/MM3 (4.50-5.90) 3.39 MIL/MM3 (4.50-5.90) Hemoglobin 10.0 GM/DL (13.0-17.0) 9.4 GM/DL (13.0-17.0) 9.0 GM/DL (13.0-17.0) Hematocrit 32.3 % (39.0-51.0) 29.4 % (39.0-51.0) 27.6 % (39.0-51.0) Mean Corpuscular Volume 83.3 FL (80.0-100.0) 82.8 FL (80.0-100.0) 81.3 FL (80.0-100.0) Mean Corpuscular Hemoglobin 26.0 PG (27.0-34.0) 26.3 PG (27.0-34.0) 26.6 PG (27.0-34.0) Mean Corpuscular Hemoglobin Concent 31.2 % (32.0-36.0) 31.8 % (32.0-36.0) 32.7 % (32.0-36.0) Red Cell Distribution Width 15.3 % (11.6-17.2) 14.7 % (11.6-17.2) 14.5 % (11.6-17.2) Platelet Count 386 TH/MM3 (150-450) 409 TH/MM3 (150-450) 365 TH/MM3 (150-450) Mean Platelet Volume 10.4 FL (7.0-11.0) 10.4 FL (7.0-11.0) 10.5 FL (7.0-11.0) Neutrophils (%) (Auto) 83.6 % (16.0-70.0) 79.4 % (16.0-70.0) Lymphocytes (%) (Auto) 4.8 % (9.0-44.0) 7.7 % (9.0-44.0) Monocytes (%) (Auto) 9.2 % (0.0-8.0) 9.8 % (0.0-8.0) Eosinophils (%) (Auto) 1.7 % (0.0-4.0) 2.4 % (0.0-4.0) Basophils (%) (Auto) 0.7 % (0.0-2.0) 0.7 % (0.0-2.0) Neutrophils # (Auto) 15.4 TH/MM3 (1.8-7.7) 11.6 TH/MM3 (1.8-7.7) Lymphocytes # (Auto) 0.9 TH/MM3 (1.0-4.8) 1.1 TH/MM3 (1.0-4.8) Monocytes # (Auto) 1.7 TH/MM3 (0-0.9) 1.4 TH/MM3 (0-0.9) Eosinophils # (Auto) 0.3 TH/MM3 (0-0.4) 0.3 TH/MM3 (0-0.4) Basophils # (Auto) 0.1 TH/MM3 (0-0.2) 0.1 TH/MM3 (0-0.2) CBC Comment DIFF FINAL DIFF FINAL Differential Comment Blood Urea Nitrogen 50 MG/DL (7-18) 53 MG/DL (7-18) 56 MG/DL (7-18) Creatinine 2.58 MG/DL (0.60-1.30) 2.66 MG/DL (0.60-1.30) 2.57 MG/DL (0.60-1.30) Random Glucose 209 MG/DL (74-106) 215 MG/DL (74-106) 278 MG/DL (74-106) Total Protein 7.2 GM/DL (6.4-8.2) 6.6 GM/DL (6.4-8.2) Albumin 1.8 GM/DL (3.4-5.0) 1.6 GM/DL (3.4-5.0) Calcium Level 8.7 MG/DL (8.5-10.1) 8.5 MG/DL (8.5-10.1) 8.4 MG/DL (8.5-10.1) Alkaline Phosphatase 104 U/L (45-117) 89 U/L (45-117) Aspartate Amino Transf (AST/SGOT) 87 U/L (15-37) 73 U/L (15-37) Alanine Aminotransferase (ALT/SGPT) 129 U/L (12-78) 94 U/L (12-78) Total Bilirubin 0.4 MG/DL (0.2-1.0) 0.4 MG/DL (0.2-1.0) Sodium Level 147 MEQ/L (136-145) 146 MEQ/L (136-145) 150 MEQ/L (136-145) Potassium Level 3.5 MEQ/L (3.5-5.1) 3.4 MEQ/L (3.5-5.1) 3.6 MEQ/L (3.5-5.1) Chloride Level 108 MEQ/L (98-107) 110 MEQ/L (98-107) 113 MEQ/L (98-107) Carbon Dioxide Level 31.5 MEQ/L (21.0-32.0) 28.7 MEQ/L (21.0-32.0) 29.3 MEQ/L (21.0-32.0) Anion Gap 8 MEQ/L (5-15) 7 MEQ/L (5-15) 8 MEQ/L (5-15) Estimat Glomerular Filtration Rate 33 ML/MIN (>89) 32 ML/MIN (>89) 33 ML/MIN (>89) Random Vancomycin Level 9.6 COMMENT 11.7 COMMENT Hematology Comments (Soniya Elliott) Result Diagram: 09/16/173 09/16/17 0433 Imaging Last [address] 09/16/17 0000 Signed Impressions: Service Date/Time: September 01:03 - CONCLUSION: 1. Evidence of acute pansinusitis. 2. Opacification of multiple bilateral mastoid air cells most characteristic of mastoiditis. 3. Mildly prominent cervical chain nodes which may be reactive. Angelo Conn MD Upper Extremity Ultrasound 09/15/17 0000 Signed Impressions: Service Date/Time: Friday, September 15, 2017 17:14 - CONCLUSION: Occlusive thrombus within the left cephalic vein and nonocclusive thrombus within the right cephalic vein. Ric Jack MD Lower Extremity Ultrasound 09/15/17 0000 Signed Impressions: Service Date/Time: Friday, September 15, 2017 16:58 - CONCLUSION: No evidence of DVT within the lower extremities. Ric Jack MD Procedures * 08/28/17 -endotracheal intubation * 08/31/17 -therapeutic bronchoscopy * 09/06/17 -PEG tube placement * 09/08/17 -tracheostomy . (Soniya Elliott) Assessment and Plan Disease Oriented Problem List: (1) Hemorrhagic stroke (2) Intracranial hemorrhage (3) Hypertensive emergency (4) Acute kidney injury (5) Acute encephalopathy Symptom Scale: (1) Dyspnea 0-10 Scale: Unable to quantify Comment: Secondary to acute respiratory failure. Status post tracheostomy, currently tolerating T-piece. (2) Pain 0-10 Scale: Unable to quantify Comment: Oxycodone [id number]. Pertinent Non-Medical Issues Psychosocial: Patient originally from [facility]. He is the youngest of 4 siblings. High school education. 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 Patient is , has 4 children. No service. Spiritual: [employer]. Legal: No advance directives completed as per patient's family. Ethical issues impacting care: Patient unable to participate in medical decision -making secondary to clinical condition. 3 adult children serving as healthcare proxy decision makers. . Important Contacts Daughter Shannan Matos , Daughter Nichole Matos Son Hadley Matos Ex- (mother of his children) Janet Matos . Patient's father Jem Matos . . Prognosis Mr. Matos is a 46-year-old male with a medical history significant for TIA, uncontrolled hypertension and migraines. Patient presented to ED via EMS on as stroke alert. Patient was last seen with normal neurological function approximately 3-1/2 hours prior to ED arrival. Upon ED arrival, GCS of 7, blood pressure 238/153. He subsequently had a vomiting episode requiring emergent intubation and mechanical ventilation. Head CT revealing acute hemorrhaic stroke in the right thalamus with extension of the lateral third ventricles with a shift onto the right side of 6 mm. chest x-ray revealing left lower lobe consolidation and patchy infiltrates in the central right lung. Clinical course complicated by acute encephalopathy, acute hypoxemic and hypercarbic respiratory failure and acute kidney injury. Patient remains a high risk for further complications, continue decline and . Prognosis for a meaningful recovery guarded at this time. . Code Status: Full Code Plan * CODE STATUS: Full code. * HEALTHCARE DECISION-MAKING: Patient lacking capacity for medical decision- making secondary to clinical condition , encephalopathy, intubated on mechanical ventilation. Not likely to regain capacity giving brain bleed. No advance directives completed as per patient's family. Patient is . As per [place] law, healthcare proxy decision making falls to the majority of patient's adult children for which he has 3 (4th child is 4 years old). Daughters Shannan and Nichole and son Hadley Cuellar All wishing to participate. * GOALS OF CARE: Family electing for aggressive medical management to include FULL code. Gently reviewed with family that patient remains at a very high risk for further complications, continue decline and . Overall prognosis for a meaningful recovery is guarded at this time. Long-term plans for this patient are impacted by his psychosocial situation, he has no payor source or coverage for acute rehabilitation/long-term placement. payroll accounting manager following. * SYMPTOMS: = Dyspnea, secondary to acute respiratory failure. Patient s/p trach on 09/08/17. Currently tolerating TPs. = Pain: Secondary to intubation, medical interventions, bedbound. Currently on oxycodone 5 mg every 4 hours. Appears calm. = Bowels: MiraLAX, lactulose and Melina-Colace [id number]. Dulcolax suppository available. = Restlessness/agitation: Resolved. * Case discussed with bedside RN Berlin. * Ongoing emotional support and active listening provided. * Palliative care contact information has been provided to patient's family. * Palliative care will continue to follow-up as needed for further clarifications of goals of care, provide emotional support as patient's clinical course continues to evolve. . (Soniya Elliott) Time Spent Total Floor Time (mins): 27 (Total time to include review medical records, physical exam, goals of care conversation with patient's family, case discussion with bedside RN.) >50% Counseling/Coord of Care: Yes (Soniya Elliott) Attestation To help prompt me to consider important information that might be impacting today's encounter and assessment, information from prior notes written by myself or my colleagues may have been "brought forward" into today's note. My signature on this note, however, is an attestation that I personally performed the exam, history, and/or decision-making noted today, and, unless otherwise indicated, the interactions with patient, family, and staff as well as the review of records all occurred today. I also attest that the listed assessment and stated plan reflect my best clinical judgment today based on the combination of historical information, prior notes, and today's exam/ interactions. When time spent is documented, it refers only to time spent today by the signer, or if indicated, combined time spent today by collaborating physician/nurse practitioner. (Soniya Elliott) Collaborating MD Comments Chart reviewed. Case discussed with palliative care SENIOR ENVIRONMENTAL PRACTICE LEADER. Above SENIOR ENVIRONMENTAL PRACTICE LEADER note reviewed and I concur. . (Noel Harper MD) Soniya Elliott Sep 16, 2017 14:48 Noel Harper MD Oct 17, 2017 14:45
--- NOTE | 2017-09-16 14:48 | HHI.IDPN ---
Note Infectious Disease Note Patient is awake and following commands. Temp lower. The patient was found to have a central nervous system bleed involving the right thalamus and extending into the lateral third ventricle. The patient was intubated after he arrived at the emergency department. PAST MEDICAL HISTORY 1. Hypertension. 2. History of CVA. ALLERGIES NO KNOWN DRUG ALLERGIES. ANTIBIOTICS Piperacillin / tazobactam. Current Medications Medications (Trade) Dose Ordered Sig/Hermann Route PRN Reason Start Time Stop Time Status Last Admin Dose Admin Sodium Chloride (NS Flush) 2 ml UNSCH PRN IVF FLUSH AFTER USING IV ACCESS 08/29/17 00:00 Chlorhexidine Gluconate (Peridex 0.12% Liq) 15 ml BID@08,20 MT 08/29/17 08:00 09/16/17 08:00 Labetalol HCl (Trandate Inj) 10 mg Q20M PRN IV PUSH SBP>140, DBP>90 08/29/17 00:45 09/16/17 11:05 Amlodipine Besylate (Norvasc) 10 mg DAILY PO 08/29/17 09:00 09/16/17 08:06 Acetaminophen (Tylenol) 650 mg Q6H PRN PO PAIN 1-5 AND/OR FEVER >101F 08/29/17 00:45 09/15/17 00:45 Morphine Sulfate (Morphine Inj) 2 mg Q2H PRN IV PUSH PAIN SCALE 6 TO 10 08/29/17 00:45 09/14/17 10:45 Ondansetron HCl (Zofran Inj) 4 mg Q6H PRN IV PUSH NAUSEA OR VOMITING 08/29/17 00:45 09/11/17 14:18 Albuterol/ Ipratropium (Duoneb Neb) 1 ampule Q4HR NEB PRN INH WHEEZING 08/29/17 00:45 09/15/17 11:55 Miscellaneous Information 1 Q361D XX 08/29/17 00:45 08/29/17 01:00 Chlorhexidine Gluconate (Chlorhexidine 2% Cloth) Taper DAILY@04 TOP 08/29/17 04:00 08/25/18 03:59 Chlorhexidine Gluconate (Chlorhexidine 2% Cloth) 3 pack UNSCH PRN TOP HYGIENIC CARE 08/29/17 00:45 Atorvastatin Calcium (Lipitor) 40 mg HS PO 08/29/17 21:00 09/15/17 21:00 Dextrose (D50w (Vial) Inj) 25 ml UNSCH PRN IV PUSH HYPOGLYCEMIA-SEE COMMENTS 08/30/17 08:15 Insulin Human Regular (NovoLIN R SUPPLEMENTAL SCALE) 1 Q6HR SQ 08/30/17 12:00 09/16/17 12:57 Hydralazine HCl (Apresoline Inj) 10 mg Q30M PRN IV PUSH sbp > 160 08/30/17 08:15 09/16/17 07:01 Haloperidol Lactate (Haldol Inj) 5 mg Q4H PRN IV agitation 08/31/17 11:00 Future Hold 09/12/17 23:04 Bisacodyl (Dulcolax Supp) 10 mg DAILY RECTAL 08/31/17 12:00 Future Hold 08/31/17 11:58 Polyethylene Glycol (Miralax) 17 gm BID PO 08/31/17 12:00 09/15/17 09:21 Lactulose (Lactulose Liq) 30 ml BID PO 08/31/17 12:00 Future Hold 09/04/17 19:57 Senna/Docusate Sodium (Melina-Colace) 1 tab BID PO 08/31/17 12:00 09/15/17 21:00 Fluticasone Propionate (Flonase Tae Spr) 2 spray DAILY EACH NARE 09/05/17 17:00 09/16/17 08:05 Clonidine (Catapres) 0.3 mg Q8HR PO 09/06/17 14:00 09/16/17 12:57 Gelatin (Gelfoam 12 Mm/7 Mm Top) 1 foam Q2HR PRN TOPICAL if still bleeding from peg 09/07/17 19:45 09/08/17 08:00 Insulin Detemir (Levemir Inj) 12 units Q12H SQ 09/11/17 22:00 09/16/17 10:51 Oxycodone HCl (Roxicodone Intensol Liq) 5 mg Q4H PO 09/11/17 13:00 09/16/17 12:57 Propranolol HCl (Inderal) 30 mg Q6HR PO 09/11/17 12:00 09/16/17 12:57 Quetiapine Fumarate (SEROquel) 50 mg Q8HR PO 09/11/17 14:00 Future Hold 09/12/17 21:37 Modafinil (Provigil) 200 mg DAILY PO 09/11/17 12:00 Future Hold 09/12/17 09:07 Water (Free Water) VOLUME: 200 ML Q4HR G-TUBE 09/11/17 12:00 09/16/17 12:00 Famotidine (Pepcid) 10 mg BID NG 09/11/17 21:00 09/16/17 08:06 Heparin Sodium (Porcine) (Heparin Inj) 5,000 units Q12HR SQ 09/11/17 21:00 09/16/17 08:06 Pharmacy Profile Note 0 ml @ 0 mls/hr UNSCH OTHER 09/13/17 02:45 Piperacillin Sod/ Tazobactam Sod 50 ml @ 100 mls/hr Q6H IV 09/13/17 03:00 09/16/17 08:08 Nicardipine HCl 25 mg/Sodium Chloride 250 ml @ 50 mls/hr TITRATE PRN IV Blood pressure management 09/13/17 02:45 09/13/17 10:51 Dexamethasone Sodium Phosphate (Decadron Inj) 6 mg Q6HR IV PUSH 09/15/17 14:15 09/16/17 12:56 Diphenhydramine HCl (Benadryl Inj) 25 mg Q6H IV PUSH 09/15/17 15:00 09/18/17 14:59 09/16/17 08:07 Lidocaine HCl (Lidocaine Pf 2% Neb) 1 ml Q6HR NEB PRN NEB cough/bronchial irritation 09/16/17 11:30 Vancomycin HCl 1500 mg/Sodium Chloride 515 ml @ 257.5 mls/ hr ONCE ONCE IV 09/16/17 15:00 09/16/17 16:59 OBJECTIVE: Vital Signs Date Time Temp Pulse Resp B/P (MAP) Pulse Ox O2 Delivery O2 Flow Rate FiO2 09/16/17 14:00 81 09/16/17 12:00 99.1 86 19 156/70 (98) 95 09/16/17 12:00 87 09/16/17 11:32 95 T-piece 35 09/16/17 11:21 98 35 09/16/17 10:00 88 09/16/17 08:00 99.7 88 21 187/76 (113) 95 09/16/17 08:00 40 09/16/17 08:00 88 09/16/17 07:36 35 09/16/17 07:36 100 35 09/16/17 06:00 80 09/16/17 04:08 99 40 09/16/17 04:00 100.4 82 16 158/94 (115) 97 09/16/17 04:00 40 09/16/17 04:00 82 09/16/17 02:00 79 09/16/17 01:36 100 40 09/16/17 01:00 100 100 09/16/17 00:00 89 09/16/17 00:00 40 09/16/17 00:00 100.6 89 16 140/77 (98) 100 09/15/17 22:00 83 09/15/17 21:00 40 09/15/17 20:31 100 40 09/15/17 20:00 84 09/15/17 20:00 100.8 83 16 130/75 (93) 100 09/15/17 20:00 40 09/15/17 18:00 95 09/15/17 16:32 100 40 09/15/17 16:00 95 09/15/17 16:00 40 09/15/17 16:00 101.0 96 18 137/75 (95) Laboratory Tests Test 09/15/17 13:55 09/16/17 04:33 White Blood Count 14.6 TH/MM3 13.6 TH/MM3 Red Blood Count 3.55 MIL/MM3 3.39 MIL/MM3 Hemoglobin 9.4 GM/DL 9.0 GM/DL Hematocrit 29.4 % 27.6 % Mean Corpuscular Volume 82.8 FL 81.3 FL Mean Corpuscular Hemoglobin 26.3 PG 26.6 PG Mean Corpuscular Hemoglobin Concent 31.8 % 32.7 % Red Cell Distribution Width 14.7 % 14.5 % Platelet Count 409 TH/MM3 365 TH/MM3 Mean Platelet Volume 10.4 FL 10.5 FL Neutrophils (%) (Auto) 79.4 % Lymphocytes (%) (Auto) 7.7 % Monocytes (%) (Auto) 9.8 % Eosinophils (%) (Auto) 2.4 % Basophils (%) (Auto) 0.7 % Neutrophils # (Auto) 11.6 TH/MM3 Lymphocytes # (Auto) 1.1 TH/MM3 Monocytes # (Auto) 1.4 TH/MM3 Eosinophils # (Auto) 0.3 TH/MM3 Basophils # (Auto) 0.1 TH/MM3 CBC Comment DIFF FINAL Differential Comment Hematology Comments Laboratory Tests Test 09/15/17 06:05 09/16/17 04:33 Blood Urea Nitrogen 53 MG/DL 56 MG/DL Creatinine 2.66 MG/DL 2.57 MG/DL Random Glucose 215 MG/DL 278 MG/DL Total Protein 6.6 GM/DL Albumin 1.6 GM/DL Calcium Level 8.5 MG/DL 8.4 MG/DL Alkaline Phosphatase 89 U/L Aspartate Amino Transf (AST/SGOT) 73 U/L Alanine Aminotransferase (ALT/SGPT) 94 U/L Total Bilirubin 0.4 MG/DL Sodium Level 146 MEQ/L 150 MEQ/L Potassium Level 3.4 MEQ/L 3.6 MEQ/L Chloride Level 110 MEQ/L 113 MEQ/L Carbon Dioxide Level 28.7 MEQ/L 29.3 MEQ/L Anion Gap 7 MEQ/L 8 MEQ/L Estimat Glomerular Filtration Rate 32 ML/MIN 33 ML/MIN IMAGING: Maxillofacial CT 09/16/17 0000 Signed Impressions: Service Date/Time: September 01:03 - CONCLUSION: 1. Evidence of acute pansinusitis. 2. Opacification of multiple bilateral mastoid air cells most characteristic of mastoiditis. 3. Mildly prominent cervical chain nodes which may be reactive. Angelo Conn MD Upper Extremity Ultrasound 09/15/17 0000 Signed Impressions: Service Date/Time: Friday, September 15, 2017 17:14 - CONCLUSION: Occlusive thrombus within the left cephalic vein and nonocclusive thrombus within the right cephalic vein. Ric Jack MD Lower Extremity Ultrasound 09/15/17 0000 Signed Impressions: Service Date/Time: Friday, September 15, 2017 16:58 - CONCLUSION: No evidence of DVT within the lower extremities. Ric Jack MD Chest X-Ray 09/14/17 0600 Signed Impressions: Service Date/Time: Thursday, September 14, 2017 03:56 - CONCLUSION: Stable appearance. Angelo Conn MD Head CT 09/13/17 0800 Signed Impressions: Service Date/Time: Wednesday, September 13, 2017 09:17 - CONCLUSION: 1. Resolving left basal ganglia hematoma Natan Lagos MD Chest CT 09/13/17 0000 Signed Impressions: Service Date/Time: Wednesday, September 13, 2017 09:28 - CONCLUSION: 1. Bibasilar and left lingular dependent atelectatic changes. Lungs are otherwise clear. 2. Tracheostomy tube with the tip probably positioned above the connie. 3. Compensated cardiomegaly. Reyes Guzman MD Abdomen/Pelvis CT 09/13/17 0000 Signed Impressions: Service Date/Time: Wednesday, September 13, 2017 09:28 - CONCLUSION: 1. There is some stranding in the retroperitoneal perivascular tissues around the distal aorta extending into the bifurcation with a regional borderline lymph nodes. Findings are characteristic of a nonspecific inflammatory process. Findings could represent early retroperitoneal fibrosis.. 2. Urinary bladder is decompressed with some mural thickening in pericystic inflammatory changes possibly representing a chronic cystitis. Nondependent air could be associated with a recent catheterization/instrumentation. 3. Small umbilical and right inguinal hernias only contain fat. 4. Bilateral dependent basilar and left lingular atelectatic changes. Heart size is borderline prominent. 5. Otherwise , bowel is intact without obstruction to explain abdominal distention Reyes Guzman MD Abdomen X-Ray 09/10/17 0600 Signed Impressions: Service Date/Time: Sunday, September 10, 2017 03:56 - CONCLUSION: No significant abnormality is identified. There is mild distention of the colon but there are no findings to suggest bowel obstruction or significant ileus. Ignacio Underwood MD Liver Ultrasound 09/07/17 0000 Signed Impressions: Service Date/Time: Thursday, September 07, 2017 12:37 - CONCLUSION: 1. Unremarkable sonographic appearance of the liver. No evidence for hepatic volume loss or intrahepatic ductal dilatation. 2. No sonographic evidence for cholelithiasis or acute cholecystitis. 3. Mild increased right renal echogenicity may reflect medical renal disease. 4. Small bilateral pleural effusions. 5. Pancreas and inferior pole of the right kidney are obscured by bowel gas and therefore not evaluated. Darrell Robles MD Renal Ultrasound 08/31/17 0000 Signed Impressions: Service Date/Time: Thursday, August 31, 2017 17:42 - CONCLUSION: 1. No evidence of hydronephrosis on either side. 2. Solitary linear echogenic focus in the upper pole parenchyma of the right kidney has similar features to prior examination in January 2017 and possibly represents a calcification. David Snell MD Neck CTA [id number] Signed Impressions: Service Date/Time: Tuesday, August 29, 2017 00:13 - CONCLUSION: Negative carotid CTA. David Snell MD Head CTA [id number] Signed Impressions: Service Date/Time: Tuesday, August 29, 2017 00:13 - CONCLUSION: 1. No evidence of vessel truncation or aneurysm. 2. No abnormal vessels in the region of the large left thalamic hemorrhage. David Snell MD PHYSICAL EXAMINATION GENERAL: Awake on the ventilator. HEENT: The sclerae is pale. No icterus. Oropharynx, the patient has marked swelling of the tongue filling the mouth opening. NECK: No adenopathy. Mild swelling. LUNGS: Decreased breath sounds at the bases unchanged. HEART: Regular S1-S2 without murmurs. ABDOMEN: Bowel sounds present, soft. No tenderness. No masses palpable. EXTREMITIES: No clubbing or cyanosis. Trace edema of the hands. NEUROLOGIC: Unable to assess. PSYCHIATRIC: Unable to assess. IMPRESSION Persistent fever: Very likely due to intracranial bleed. Pneumonia due to Klebsiella. Leukocytosis. RECOMMENDATIONS 1. Continue piperacillin / tazobactam. 2. Monitor the blood cultures. 3. Monitor temperature. 4. Monitor white blood cell count. Kaz Gregg MD Sep 16, 2017 14:47
[2017-09-16] MEDS ORDERED: VANCOMYCIN INJ 1,500 MG in SODIUM CHLORID 0.9% 500 ML INJ 500 ML IV ONE (15:00)
--- NOTE | 2017-09-16 17:26 | MB ---
cc: MANUEL PIERSON MD DATE OF CONSULTATION 09/16/17 CHIEF COMPLAINT Sinusitis as well as angioedema HISTORY OF PRESENT ILLNESS This is a 46-year-old black male who was originally admitted to the hospital on August 29. He was found to have a central nervous system bleed involving the right thalamus extending into the lateral third ventricle. The patient had an emergent intubation, subsequently continued to have ICU care, eventually requiring tracheostomy. Sometime along toward the end of August, he began developing significant angioedema of the mouth and tongue with his tongue protruding out of his oral cavity. He has had difficulty with sepsis and fevers and has been followed and treated with multiple antibiotics for the sepsis, noted to have Klebsiella pneumonia as well as continued to have spiking fevers. This has then attributed to the sepsis. He has been worked up with a CT scan of his sinuses that showed some chronic inflammation of the sinuses as well as the mastoids, consistent with prolonged intubations. At this time, the patient is continuing to be treated with antibiotics and consult was placed for the sinusitis as well as the persistent angioedema. PAST MEDICAL HISTORY From his chart - 1. Hypertension 2. Previous history of stroke. Unable to obtain any other history from the patient as he is unable to speak due to the size of his tongue. ALLERGIES No known drug allergies. MEDICATIONS He is on multiple antibiotics and medications currently. SOCIAL HISTORY From the chart was no tobacco, no drugs. Occasional ethanol. PHYSICAL EXAMINATION GENERAL: The patient is on a tracheostomy. HEENT: Exam reveals significant swelling of the tongue extending out of his oral cavity approximately 6 mm. Flexible endoscopy today reveals significant edema of the tongue, tongue base down to the pharyngeal airway, edema of the lateral pharyngeal rivera and posterior pharyngeal rivera. The nasal exam reveals no purulent discharge from the sinus cavities, with nasal endoscopy some mucus drainage. The ear exam reveals some middle ear effusions that is serous in appearance. NECK: Reveals no palpable adenopathy IMAGING STUDIES CT scan was reviewed of the maxillofacial. Imaging showing chronic sinus opacification of multiple sinuses including the sinuses. Ethmoid air cells are relatively clear. There is some mastoid air cells that are full of fluid as well, but there is no coalescence. ASSESSMENT/PLAN Patient with sinusitis with some chronic and subacute findings. Agree with the current antibiotic choice. No indication for surgical intervention on the sinuses at this time. Recommend continued antibiotic therapy. As to his angioedema, it is very difficult to attribute the angioedema to specific medication therapy as he has had it chronically now for almost 10 days. There is significant edema of his remaining portions of his pharyngeal airway as well. It is possible that this has to do with decreased blood flow and prolonged edema from laying flat as well as decreased blood flow from the clotting that has been discovered in his upper neck and upper extremities or it is in fact more of a capillary leak syndrome which is a more difficult problem to treat. At this time, I do agree with his current treatment plan of steroids and Benadryl and determine as the antibiotics are able to be cleared of we will notice improvement. I expect a very slow transition of his angioedema and improvement. Should it be a capillary leak syndrome, that is a much more ominous finding and a difficult thing to treat. At this time, we will continue to anticipate improvement with current therapies for his angioedema. Luckily, he does have a very secure airway with the tracheostomy in place and there is no acute concern for airway obstruction. Manuel DE LA CRUZ/ /4:47 PM /5:00 PM
[2017-09-16] MEDS ORDERED: INSULIN NovoLIN REGULAR SUPPLEMENTAL SCALE SQ ONE (18:00)
[2017-09-16] MEDS: ATORVASTATIN 40 MG TAB PO SCH (20:40)
[2017-09-16] MEDS: niCARdipine INJ 25 MG in SODIUM CHLOR 0.9% 250 ML INJ 240 ML IV PRN (23:16)
[2017-09-17] VITALS (17 sets, daily range): BP systolic 131–173; BP diastolic 70–88; PULSE 60–90; RESP 13–18; TEMP 98.4–99.5; O2SAT 99–100
[2017-09-17] MEDS: LABETALOL HCL 100 MG/20 ML VIAL IV PUSH PRN ×3 (01:20→03:15)
[2017-09-17] MEDS: PROPRANOLOL HCL 10 MG TAB PO SCH ×2 (01:21→04:23)
[2017-09-17] MEDS: oxyCODONE HCL ORAL CONC 5 MG/0.25 ML SYRINGE PO SCH ×5 (01:21→20:38)
[2017-09-17] MEDS: DEXAMETHASONE SOD PHOS 4 MG/ML VIAL IV PUSH SCH ×3 (01:21→20:38)
[2017-09-17] MEDS: niCARdipine INJ 25 MG in SODIUM CHLOR 0.9% 250 ML INJ 240 ML IV PRN ×2 (02:37→04:57)
[2017-09-17] MEDS: PIPERACIL-TAZO 2.25 GM PREMIX 50 ML IV SCH ×4 (02:38→20:40)
[2017-09-17] MEDS: diphenhydrAMINE HCL 50 MG/ML VIAL IV PUSH SCH ×4 (02:38→20:38)
[2017-09-17] MEDS: MORPHINE SULFATE 4 MG/ML INJ IV PUSH PRN (03:33)
[2017-09-17] MEDS: FREE WATER G-TUBE SCH ×6 (04:00→20:40)
[2017-09-17] MEDS: CHLORHEXIDINE GLUCONATE 2 % 1 PACK (2 CLOTHS) TOP SCH (04:00)
[2017-09-17] MEDS ORDERED: LABETALOL HCL 200 MG TAB PEG ONE (04:15)
[2017-09-17] MEDS: cloNIDine HCL 0.3 MG TAB PO SCH ×3 (04:23→20:39)
--- NOTE | 2017-09-17 05:48 | RADRPT ---
EXAM DATE/TIME: 09/17/2017 04:32 [facility] COMPARISON: CHEST SINGLE AP, September 14, 2017, 3:56. INDICATIONS : Respiratory disease. MEDICAL HISTORY : Stroke. CVA. Migraine. Hypertension. GERD. SURGICAL HISTORY : Peg tube placement. ENCOUNTER: Subsequent ACUITY: 2 weeks PAIN SCORE: Non-responsive. LOCATION: Bilateral chest FINDINGS: Cardiomegaly. Tracheostomy tube noted. EKG leads overlie the chest. There is left lower lobe airspace disease identified. The right lung is clear. The osseous structures are intact. CONCLUSION: Left basilar airspace disease. Julian Loaiza MD on September 17, 2017 at 5:46 Board Certified Radiologist. This report was verified electronically.
[2017-09-17] MEDS: INSULIN NovoLIN REGULAR SUPPLEMENTAL SCALE SQ SCH ×4 (06:00→17:12)
[2017-09-17 06:25] LABS: AUTOMATED NEUTROPHIL # 13.6 TH/MM3 (1.8-7.7); BASOPHIL # 0.1 TH/MM3 (0-0.2); BASOPHIL % 0.4 % (0.0-2.0); EOSINOPHIL % 0.1 % (0.0-4.0); HEMOGLOBIN 8.8 GM/DL (13.0-17.0); LYMPH % 4.6 % (9.0-44.0); LYMPHOCYTE # 0.7 TH/MM3 (1.0-4.8); MEAN CORPUSCULAR HEMOGLOBIN 26.1 PG (27.0-34.0); MEAN CORPUSCULAR HGB CONC 31.4 % (32.0-36.0); MEAN PLATELET VOLUME 10.4 FL (7.0-11.0); MONO % 6.1 % (0.0-8.0); MONOCYTE # 0.9 TH/MM3 (0-0.9); NEUT % 88.8 % (16.0-70.0); PLATELET COUNT 436 TH/MM3 (150-450); RED BLOOD COUNT 3.38 MIL/MM3 (4.50-5.90); WHITE BLOOD COUNT 15.3 TH/MM3 (4.0-11.0)
[2017-09-17 06:53] LABS: ALBUMIN 1.7 GM/DL (3.4-5.0); AST (GOT) 83 U/L (15-37); BICARBONATE 28.7 MEQ/L (21.0-32.0); BLOOD UREA NITROGEN 53 MG/DL (7-18); CALCIUM 8.4 MG/DL (8.5-10.1); CHLORIDE 113 MEQ/L (98-107); CREATININE 2.32 MG/DL (0.60-1.30); GLOMERULAR FILTRATION RATE 37 ML/MIN (>89); GLUCOSE,RANDOM 293 MG/DL (74-106); SODIUM (NA) 149 MEQ/L (136-145)
[2017-09-17 06:58] LABS: ALKALINE PHOSPHATASE 86 U/L (45-117); ALT (GPT) 109 U/L (12-78); RANDOM VANCOMYCIN 20.9 COMMENT; TOTAL BILIRUBIN ADULT 0.3 MG/DL (0.2-1.0); TOTAL PROTEIN 6.5 GM/DL (6.4-8.2)
[2017-09-17 07:59] LABS: BANDS 3 % (0-6); LYMPHOCYTES 7 % (9-44); MONOCYTES 6 % (0-8); MYELOCYTES 3 % (0-0); NEUTROPHIL # MANUAL DIFF 13.3 TH/MM3 (1.8-7.7); POLYS (SEG NEUTROPHILS) 81 % (16-70)
[2017-09-17] MEDS: CHLORHEXIDINE 0.12% (ORAL KIT) 15 ML CUP MT SCH ×2 (08:00→20:39)
[2017-09-17] MEDS: HEPARIN SODIUM - SQ 10,000 UNITS/ML VIAL SQ SCH ×2 (08:28→20:38)
[2017-09-17] MEDS: FAMOTIDINE 20 MG TAB NG SCH ×2 (08:28→20:39)
[2017-09-17] MEDS: POLYETHYLENE GLYCOL 17 GM PKG PO SCH ×2 (08:29→20:39)
[2017-09-17] MEDS: FLUTICASONE PROPIONATE 50 MCG/ACT 16 GM NASAL SPRAY EACH NARE SCH (08:29)
[2017-09-17] MEDS: DOCUSATE SODIUM 50 MG/SENNA 8.6 MG TAB PO SCH ×2 (08:29→20:39)
[2017-09-17] MEDS: INSULIN DETEMIR 100 UNITS/ML VIAL SQ SCH ×2 (10:42→20:40)
--- NOTE | 2017-09-17 11:10 | HHI.NPPN ---
Subjective Renal Failure: Acute Additional Remarks Continues to be febrile. Off sedation. On trach O2. Non oliguric. Review of Systems General General Remarks unable to obtain Objective Data Data 09/17/17 09/18/17 19:00 07:00 Output Total 0 ml Balance 0 ml Tube Feeding Residual Discard 0 ml Vital Signs Date Time Temp Pulse Resp B/P (MAP) Pulse Ox O2 Delivery O2 Flow Rate FiO2 09/17/17 10:00 69 09/17/17 08:00 98.4 75 13 143/71 (95) 99 09/17/17 08:00 75 09/17/17 08:00 35 09/17/17 07:56 100 T-piece 35 09/17/17 07:45 100 35 09/17/17 07:00 100 Mechanical Ventilator 35 Trach Collar 09/17/17 06:00 70 09/17/17 04:57 80 159/67 09/17/17 04:00 35 09/17/17 04:00 80 09/17/17 04:00 99.5 80 14 159/70 (99) 99 09/17/17 03:43 99 35 09/17/17 02:37 81 189/90 09/17/17 02:00 80 09/17/17 00:20 99 35 09/17/17 00:00 35 09/17/17 00:00 90 09/17/17 00:00 99.3 90 15 173/80 (111) 99 09/16/17 23:16 81 196/93 09/16/17 22:00 82 09/16/17 20:29 100 35 09/16/17 20:15 35 09/16/17 20:00 99.3 71 16 175/100 (125) 100 09/16/17 20:00 100 T-Piece 35 09/16/17 20:00 77 09/16/17 18:00 75 09/16/17 16:00 99.3 79 19 186/96 (126) 95 09/16/17 16:00 78 09/16/17 15:01 99 T-piece 35 09/16/17 14:00 81 09/16/17 12:00 99.1 86 19 156/70 (98) 95 09/16/17 12:00 87 09/16/17 11:32 95 T-piece 35 09/16/17 11:21 98 35 -: 09/17/17 0530 09/17/17 0530 Tubes & Lines: Coleman Tubes & Lines Comment PEG, trach Drip Comment fentanyl, propofol Physical Exam General Appearance: No Acute Distress Neck Neck Exam: Neck Supple Pulmonary Resp Exam: Clear Bilaterally, Breath Sounds Equal Cardiology CV Exam: Regular, Normal Sinus Rhythm Gastrointestinal/Abdomen GI Exam: Soft, Non-Tender, Bowel Sounds Present, Positive Bowel Movement, Distended Genitourinary Exam: Clear Urine Musculoskeletal MS Exam: Joints Intact, Normal Tone, Unable to Ambulate Extremeties Extremities Exam: Moderate Edema Neurologic Neuro Exam: Unresponsive, Sedated Assessment/Plan Discussed Condition With: Relative Assessment Summary: Hypertension Electrolyte Assessment: Hypokalemia Problem List: (1) Acute kidney injury ICD Codes: N17.9 - Acute kidney failure, unspecified Status: Acute Plan: Baseline creatinine around 2. current cr 2.3 He most likely has underlying CKD. RAFAELA most likely due to renal hypoperfusion resulting from normalization of BP. Non oliguric, creatinine is slightly higher today. Monitor. Carefully monitor Vancomycin dosing, avoid levels above 20. Chose alternative if possible. Continue to replace potassium as needed. (2) Hemorrhagic stroke ICD Codes: I61.9 - Nontraumatic intracerebral hemorrhage, unspecified Status: Acute Plan: Neurosurgery has followed, serial imaging reviewed. Non surgical management at this time. S/P PEG and tracheostomy Palliative is following, meaningful recovery is questionable. (3) Hypertension ICD Codes: I10 - Hypertension Status: Chronic Plan: BP improved. Continue oral medications. Monitor and titrate to effect. (4) Sepsis ICD Codes: A41.9 - Sepsis, unspecified organism Status: Resolved Plan: Febrile. On Vancomycin and Zosyn. Sputum culture from 09/12 grew Klebsiella. Timoteo Kuo MD Sep 17, 2017 11:10
--- NOTE | 2017-09-17 12:41 | HHI.CCPN ---
Subjective Remarks/Hospital Course Hospital Course: 46 y/o man with longstanding hypertension and previous CVA presents obtunded with new neurological symptoms noticed prior to arrival. Timeline unclear. Required intubation in ED for airway protection. CT head shows left thalamic bleed and shift away from bleed. Toxicology screen pending. Subjective: 08/30: encephalopathy persists. bp under better control, still on cardene. on sedation vacation, moves left side spontaneously but nothing on right. 08/31: overnight, severely agitated, requiring high dose sedation. also, lambert obstructed, new lambert placed with improvement in obstruction. this morning, RAFAELA with Cr up to 3. urine Na < 10, suggestive of pre-renal etiology. continued ivf. high peak pressures on vent. suction lavage with thick tenacious secretions. bronch with left lobe mucous plugging. bronchospasm a significant problem requiring iv magnesium and duonebs. finally attempted small paralytic dose with improvement in abdominal breathing and fighting ventilator. 09/01: No improvement in neuro exam, intermittent jerking movements noted by the RN no seizure. Creatinine for urine output adequate. I have consulted nephrology. We'll check CT of the head repeat EEG tomorrow a.m. 09/02: Clinically remains same. Did not tolerate sedation vacation, became hypertensive. CT head today showed slight improvement in L thalamic and IVH. Dr. Tinajero is the neurosurgeon, Dr. Jhaveri covering 09/03: Still unable to tolerate sedation vacation. Becomes very asynchronous with the vent with desaturations. Discussed with daughters about possible tracheostomy, they want to discuss with their mom, patient's ex -. Creatinine has worsened to 5.1 but no acute indication for dialysis. Will check ABG urine output 1.8 L in 24 hours 09/04: Remains intubated sedated synchronous with the vent. Noted to have tongue swelling/angioedema. Lisinopril discontinued. Placed on Decadron and IV Benadryl. Plan for tracheostomy and PEG tube placement next week 09/05: Patient remains intubated sedated critically ill. No change or improvement in neuro status. Lisinopril discontinued yesterday Decadron and Benadryl started tongue swelling is improved. Hyperglycemia secondary to Decadron, random blood sugar 360. Will wean to DC. Plan for trach and PEG this week, if family agreeable 09/06: Angioedema improving with Decadron and Benadryl. Still gets very agitated with sedation lightening. Needs improved blood pressure control increase clonidine to 0.3 every 8 hours. Plan for PEG today and Trach 09/08/1709/07: Stable overnight, except bleeding/oozing from the PEG site. We'll give single dose of nasal DDAVP. Creatinine slightly improved to 4.4, urine output 3.9 L in 24 hours. Plan for tracheostomy 09/08/17. 09/08: Tracheostomy completed. Tongue edema unchanged. 09/09: Tolerating spontaneous respiration on trach. Tongue edema persists. 09/10: Tolerating progression to trach collar today. 09/11: t-piece x 24h. still not waking up and encephalopathic. however, not agitated. still hypertensive, tachycardic. will need placement. Cr continues to improve. still hypernatremic. 09/12: delayed note entry. seen around 1300 on 09/12. wbc slightly up, fever curve uptrending, but has history of fevers likely from thalamic stroke. sputum , urine cultures sent at 0600. will await these results before deciding further courses of action. still on t-piece and no overall clinical change. 09/13: Overnight events noted, febrile to 105, with tremor, clonus, rigidity. given dantrolene for possible NMS by Dr. Asif and stopped Haldol and Seroquel. Provigil also stop due to possibility of serotonin syndrome. Patient was started on Zosyn and vancomycin and panculture sent, and placed on full vent support due to tachypnea. Temp came down to 101 (his baseline) after dantrolene one dose. On my exam at this time patient does not have a rigidity and blood temperatures 101. Nursing staff reports thick yellow secretions, chest x-ray shows possible left lower lobe infiltrate. WBC increased from 15.5 to 23.3. I will get the CT of the chest to evaluate for lung infiltrate and also CT abdomen and pelvis to rule out any intra-abdominal source of sepsis. Hold off on Ativan at this time. Patient is also getting a CT of the head 09/14: Patient continues to spike fever but at baseline. WBC count is trending down (23.3 to 18.4). Sputum culture growing Klebsiella. Opens eyes spontaneously today. Weakly give thumbs up to the RN (I did not witness it) 09/15: Continues to spike fever, appreciate ID consult. I have ordered venous ultrasound of all extremities. Also check CT of the sinuses rule out sinusitis and also evaluate for transient swelling pharyngeal/retropharyngeal abscesses. ENT consulted for persistent angioedema 09/16: On CPAP. Eyes open. Following commands on LUE. Bilateral cephalic vein thrombus, occlusive on Left. CT face shows pansinusitis and mastoiditis. ENT has seen for persistent angioedema and tongue swelling official consult pending 09/17: Sitting up in stretcher chair today, tracking intermittently follows commands on LUE (gives thumbs up). Fever trending down. Angio edema improving. Chest x-ray shows persistent left lower lobe consolidation Objective Vital Signs Date Time Temp Pulse Resp B/P (MAP) Pulse Ox O2 Delivery O2 Flow Rate FiO2 09/17/17 12:00 78 09/17/17 12:00 35 09/17/17 12:00 99.0 16 131/79 (96) 99 09/17/17 07:56 T-piece Intake and Output 09/17/17 09/17/17 09/18/17 08:00 16:00 00:00 Intake Total 1109 ml Output Total 2000.0 ml Balance -891.0 ml Result Diagram: 09/17/1752909/17/17 05 Objective Remarks Gen: Middle-aged male, Sitting up in stretcher chair, encephalopathic Head: Atraumatic. Conjunctivae clear. ENT: Tongue swollen/angioedema with laceration from bite, stable to mildly improved Neck: Supple, trach site clean, dry. Lungs: On TP. equal chest rise. Few rhonchi and crackles bilaterally Heart: RR. Intermittently hypertensive. Abdomen: Mildly distended. PEG site clean. Extremities: Warm, well perfused. Neuro: Opens eyes spontaneously today, following commands LUE by giving thumbs up. w/d to pain left UE and bilateral LE. pupils equal, round A/P Problem List: (1) Intracranial hemorrhage ICD Code: I62.9 - Nontraumatic intracranial hemorrhage, unspecified Status: Acute (2) Hemorrhagic stroke ICD Code: I61.9 - Nontraumatic intracerebral hemorrhage, unspecified Status: Acute (3) Hypertensive emergency ICD Code: I10 - Hypertensive emergency Status: Acute Assessment and Plan Assessment: 46yM with left thalamic hypertensive hemorrhagic IPH, ICH score 2. slowly improving neurologically. Needs placement. Fever down trending. Angioedema slowly improving Active Problems: Acute encephalopathy - persistent. Left Thalamic Hemorrhage, with IV extension Intracerebral Hemorrhage, ICH score 2 Respiratory failure s/p trach Healthcare associated pneumonia Sepsis Pansinusitis, Mastoiditis Bilateral upper extremity superficial thrombophlebitis Possible NMS Fever central vs infectious Hypertensive Emergency- resolved. Agitated Delirium - resolved. 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 Hyperglycemia Hypertension Hypernatremia Hypoactive delirium Plan: NEURO: - Seroquel and Haldol discontinued due to possible NMS - Discontinued modafinil 200mg daily due to possibility of serotonin syndrome - oxy to 5mg po q4h, change to q6hr - propranolol to 40mg po q6h - continue clonidine 0.3 mg tid - Repeat CT of the head showed improving bleed RESP: - TP as tolerated - CT of the chest 09/13/17 -LLL infiltrate - Broad-spectrum antibiotics as below (Zosyn and Vanc-DC vanc) - DuoNeb every 6 hours scheduled and when necessary, ventilator bundle - CT face shows pansinusitis and mastoiditis - ENT consulted for persistent angioedema and sinusitis-appreciate input - Taper and DC Decadron and Benadryl over three days CVS: - Intermittent hypertension now well controlled - Nicardipine to keep systolic blood pressure less than 150, now off, will remove from MAR - Continue clonidine, amlodipine and propranolol GI: - Status post PEG tube continue tube feeds - Having bowel movements - Free water 200mL per tube q6h - Pepcid per tube /RENAL: - continue Lambert catheter given prior urinary obstruction and resolving rafaela - Nephrology following, creatinine stable ID - New sepsis with high white count and high fever, most likely secondary to pneumonia - CT maxillofacial shows pansinusitis and mastoiditis, also upper extremity superficial thrombophlebitis on both contributing to fever - ID consult appreciated - ENT consulted for persistent angioedema - Restarted Decadron and Benadryl, continue Flonase - On vancomycin and Zosyn- DC Vanc today - Follow-up on blood urine and sputum culture-Klebsiella in sputum HEME: - Leukocytosis secondary to probable sepsis MSK: - OOB to stretcher chair daily - PT/OT following ENDO: - Levemir to 12 units SQ q12h - keep med scale q6h SSI PROPH: - sqh 5000 q12h (2 weeks post bleed, stable). Pepcid for GI prophylaxis Level 2 Ladan Pierre MD Sep 17, 2017 12:41
--- NOTE | 2017-09-17 13:15 | HHI.IDPN ---
Note Infectious Disease Note Patient is awake and following commands on the left. Afebrile. Up in stretcher chair. Central nervous system bleed involving the right thalamus and extending into the lateral third ventricle. The patient was intubated after he arrived at the emergency department. PAST MEDICAL HISTORY 1. Hypertension. 2. History of CVA. ALLERGIES NO KNOWN DRUG ALLERGIES. ANTIBIOTICS Piperacillin / tazobactam. Current Medications Medications (Trade) Dose Ordered Sig/Hermann Route PRN Reason Start Time Stop Time Status Last Admin Dose Admin Sodium Chloride (NS Flush) 2 ml UNSCH PRN IVF FLUSH AFTER USING IV ACCESS 08/29/17 00:00 Chlorhexidine Gluconate (Peridex 0.12% Liq) 15 ml BID@08,20 MT 08/29/17 08:00 09/17/17 08:00 Labetalol HCl (Trandate Inj) 10 mg Q20M PRN IV PUSH SBP>140, DBP>90 08/29/17 00:45 09/17/17 03:15 Amlodipine Besylate (Norvasc) 10 mg DAILY PO 08/29/17 09:00 09/17/17 08:28 Acetaminophen (Tylenol) 650 mg Q6H PRN PO PAIN 1-5 AND/OR FEVER >101F 08/29/17 00:45 09/15/17 00:45 Morphine Sulfate (Morphine Inj) 2 mg Q2H PRN IV PUSH PAIN SCALE 6 TO 10 08/29/17 00:45 09/17/17 03:33 Ondansetron HCl (Zofran Inj) 4 mg Q6H PRN IV PUSH NAUSEA OR VOMITING 08/29/17 00:45 09/11/17 14:18 Miscellaneous Information 1 Q361D XX 08/29/17 00:45 08/29/17 01:00 Chlorhexidine Gluconate (Chlorhexidine 2% Cloth) 3 pack Taper DAILY@04 TOP 08/29/17 04:00 08/25/18 03:59 Chlorhexidine Gluconate (Chlorhexidine 2% Cloth) 3 pack UNSCH PRN TOP HYGIENIC CARE 08/29/17 00:45 Atorvastatin Calcium (Lipitor) 40 mg HS PO 08/29/17 21:00 09/16/17 20:40 Dextrose (D50w (Vial) Inj) 25 ml UNSCH PRN IV PUSH HYPOGLYCEMIA-SEE COMMENTS 08/30/17 08:15 Insulin Human Regular (NovoLIN R SUPPLEMENTAL SCALE) 1 Q6HR SQ 08/30/17 12:00 09/17/17 06:00 Hydralazine HCl (Apresoline Inj) 10 mg Q30M PRN IV PUSH sbp > 160 08/30/17 08:15 09/16/17 22:21 Haloperidol Lactate (Haldol Inj) 5 mg Q4H PRN IV agitation 08/31/17 11:00 Future Hold 09/12/17 23:04 Bisacodyl (Dulcolax Supp) 10 mg DAILY RECTAL 08/31/17 12:00 Future Hold 08/31/17 11:58 Polyethylene Glycol (Miralax) 17 gm BID PO 08/31/17 12:00 09/15/17 09:21 Lactulose (Lactulose Liq) 30 ml BID PO 08/31/17 12:00 Future Hold 09/04/17 19:57 Senna/Docusate Sodium (Melina-Colace) 1 tab BID PO 08/31/17 12:00 09/15/17 21:00 Fluticasone Propionate (Flonase Tae Spr) 2 spray DAILY EACH NARE 09/05/17 17:00 09/17/17 08:29 Clonidine (Catapres) 0.3 mg Q8HR PO 09/06/17 14:00 09/17/17 04:23 Gelatin (Gelfoam 12 Mm/7 Mm Top) 1 foam Q2HR PRN TOPICAL if still bleeding from peg 09/07/17 19:45 09/08/17 08:00 Insulin Detemir (Levemir Inj) 12 units Q12H SQ 09/11/17 22:00 09/17/17 10:42 Quetiapine Fumarate (SEROquel) 50 mg Q8HR PO 09/11/17 14:00 Future Hold 09/12/17 21:37 Modafinil (Provigil) 200 mg DAILY PO 09/11/17 12:00 Future Hold 09/12/17 09:07 Water (Free Water) VOLUME: 200 ML Q4HR G-TUBE 09/11/17 12:00 09/17/17 08:00 Famotidine (Pepcid) 10 mg BID NG 09/11/17 21:00 09/17/17 08:28 Heparin Sodium (Porcine) (Heparin Inj) 5,000 units Q12HR SQ 09/11/17 21:00 09/17/17 08:28 Piperacillin Sod/ Tazobactam Sod 50 ml @ 100 mls/hr Q6H IV 09/13/17 03:00 09/17/17 08:28 Diphenhydramine HCl (Benadryl Inj) 25 mg Q6H IV PUSH 09/15/17 15:00 09/18/17 14:59 09/17/17 08:28 Lidocaine HCl (Lidocaine Pf 2% Neb) 1 ml Q6HR NEB PRN NEB cough/bronchial irritation 09/16/17 11:30 Labetalol HCl (Trandate) 300 mg Q8HR PEG 09/17/17 14:00 Dexamethasone Sodium Phosphate (Decadron Inj) 6 mg Q12HR IV PUSH 09/17/17 21:00 09/20/17 20:59 UNV Albuterol/ Ipratropium (Duoneb Neb) 1 ampule Q6HR NEB INH 09/17/17 13:00 UNV Oxycodone HCl (Roxicodone Intensol Liq) 5 mg Q6H PO 09/17/17 13:00 UNV Propranolol HCl (Inderal) 40 mg Q6HR PO 09/17/17 18:00 UNV OBJECTIVE: Vital Signs Date Time Temp Pulse Resp B/P (MAP) Pulse Ox O2 Delivery O2 Flow Rate FiO2 09/17/17 12:00 78 09/17/17 12:00 35 09/17/17 12:00 99.0 76 16 131/79 (96) 99 09/17/17 10:00 69 09/17/17 08:00 98.4 75 13 143/71 (95) 99 09/17/17 08:00 75 09/17/17 08:00 35 09/17/17 07:56 100 T-piece 35 09/17/17 07:45 100 35 09/17/17 07:00 100 Mechanical Ventilator 35 Trach Collar 09/17/17 06:00 70 09/17/17 04:57 80 159/67 09/17/17 04:00 35 09/17/17 04:00 80 09/17/17 04:00 99.5 80 14 159/70 (99) 99 09/17/17 03:43 99 35 09/17/17 02:37 81 189/90 09/17/17 02:00 80 09/17/17 00:20 99 35 09/17/17 00:00 35 09/17/17 00:00 90 09/17/17 00:00 99.3 90 15 173/80 (111) 99 09/16/17 23:16 81 196/93 09/16/17 22:00 82 09/16/17 20:29 100 35 09/16/17 20:15 35 09/16/17 20:00 99.3 71 16 175/100 (125) 100 09/16/17 20:00 100 T-Piece 35 09/16/17 20:00 77 09/16/17 18:00 75 09/16/17 16:00 99.3 79 19 186/96 (126) 95 09/16/17 16:00 78 09/16/17 15:01 99 T-piece 35 09/16/17 14:00 81 Laboratory Tests Test 09/15/17 13:55 09/16/17 04:33 09/17/17 05:30 White Blood Count 14.6 TH/MM3 13.6 TH/MM3 15.3 TH/MM3 Red Blood Count 3.55 MIL/MM3 3.39 MIL/MM3 3.38 MIL/MM3 Hemoglobin 9.4 GM/DL 9.0 GM/DL 8.8 GM/DL Hematocrit 29.4 % 27.6 % 28.0 % Mean Corpuscular Volume 82.8 FL 81.3 FL 83.0 FL Mean Corpuscular Hemoglobin 26.3 PG 26.6 PG 26.1 PG Mean Corpuscular Hemoglobin Concent 31.8 % 32.7 % 31.4 % Red Cell Distribution Width 14.7 % 14.5 % 15.0 % Platelet Count 409 TH/MM3 365 TH/MM3 436 TH/MM3 Mean Platelet Volume 10.4 FL 10.5 FL 10.4 FL Neutrophils (%) (Auto) 79.4 % 88.8 % Lymphocytes (%) (Auto) 7.7 % 4.6 % Monocytes (%) (Auto) 9.8 % 6.1 % Eosinophils (%) (Auto) 2.4 % 0.1 % Basophils (%) (Auto) 0.7 % 0.4 % Neutrophils # (Auto) 11.6 TH/MM3 13.6 TH/MM3 Lymphocytes # (Auto) 1.1 TH/MM3 0.7 TH/MM3 Monocytes # (Auto) 1.4 TH/MM3 0.9 TH/MM3 Eosinophils # (Auto) 0.3 TH/MM3 0.0 TH/MM3 Basophils # (Auto) 0.1 TH/MM3 0.1 TH/MM3 CBC Comment DIFF FINAL AUTO DIFF Differential Comment FINAL DIFF MANUAL Hematology Comments Differential Total Cells Counted 100 Neutrophils % (Manual) 81 % Band Neutrophils % 3 % Lymphocytes % 7 % Monocytes % 6 % Neutrophils # (Manual) 13.3 TH/MM3 Myelocytes 3 % Platelet Estimate NORMAL Platelet Morphology Comment NORMAL Red Cell Morphology Comment NORMAL Laboratory Tests Test 09/16/17 04:33 09/17/17 05:30 Blood Urea Nitrogen 56 MG/DL 53 MG/DL Creatinine 2.57 MG/DL 2.32 MG/DL Random Glucose 278 MG/DL 293 MG/DL Calcium Level 8.4 MG/DL 8.4 MG/DL Sodium Level 150 MEQ/L 149 MEQ/L Potassium Level 3.6 MEQ/L 3.6 MEQ/L Chloride Level 113 MEQ/L 113 MEQ/L Carbon Dioxide Level 29.3 MEQ/L 28.7 MEQ/L Anion Gap 8 MEQ/L 7 MEQ/L Estimat Glomerular Filtration Rate 33 ML/MIN 37 ML/MIN Total Protein 6.5 GM/DL Albumin 1.7 GM/DL Alkaline Phosphatase 86 U/L Aspartate Amino Transf (AST/SGOT) 83 U/L Alanine Aminotransferase (ALT/SGPT) 109 U/L Total Bilirubin 0.3 MG/DL IMAGING: Chest X-Ray 09/17/17 0600 Signed Impressions: Service Date/Time: Sunday, September 17, 2017 04:32 - CONCLUSION: Left basilar airspace disease. Julian Loaiza MD Maxillofacial CT 09/16/17 0000 Signed Impressions: Service Date/Time: September 01:03 - CONCLUSION: 1. Evidence of acute pansinusitis. 2. Opacification of multiple bilateral mastoid air cells most characteristic of mastoiditis. 3. Mildly prominent cervical chain nodes which may be reactive. Angelo Conn MD Maxillofacial CT 09/16/17 0000 Signed Impressions: Service Date/Time: September 01:03 - CONCLUSION: 1. Evidence of acute pansinusitis. 2. Opacification of multiple bilateral mastoid air cells most characteristic of mastoiditis. 3. Mildly prominent cervical chain nodes which may be reactive. Angelo Conn MD Upper Extremity Ultrasound 09/15/17 0000 Signed Impressions: Service Date/Time: Friday, September 15, 2017 17:14 - CONCLUSION: Occlusive thrombus within the left cephalic vein and nonocclusive thrombus within the right cephalic vein. Ric Jack MD Lower Extremity Ultrasound 09/15/17 0000 Signed Impressions: Service Date/Time: Friday, September 15, 2017 16:58 - CONCLUSION: No evidence of DVT within the lower extremities. Ric Jack MD Chest X-Ray 09/14/17 0600 Signed Impressions: Service Date/Time: Thursday, September 14, 2017 03:56 - CONCLUSION: Stable appearance. Angelo Conn MD Head CT 09/13/17 0800 Signed Impressions: Service Date/Time: Wednesday, September 13, 2017 09:17 - CONCLUSION: 1. Resolving left basal ganglia hematoma Natan Lagos MD Chest CT 09/13/17 0000 Signed Impressions: Service Date/Time: Wednesday, September 13, 2017 09:28 - CONCLUSION: 1. Bibasilar and left lingular dependent atelectatic changes. Lungs are otherwise clear. 2. Tracheostomy tube with the tip probably positioned above the connie. 3. Compensated cardiomegaly. Reyes Guzman MD Abdomen/Pelvis CT 09/13/17 0000 Signed Impressions: Service Date/Time: Wednesday, September 13, 2017 09:28 - CONCLUSION: 1. There is some stranding in the retroperitoneal perivascular tissues around the distal aorta extending into the bifurcation with a regional borderline lymph nodes. Findings are characteristic of a nonspecific inflammatory process. Findings could represent early retroperitoneal fibrosis.. 2. Urinary bladder is decompressed with some mural thickening in pericystic inflammatory changes possibly representing a chronic cystitis. Nondependent air could be associated with a recent catheterization/instrumentation. 3. Small umbilical and right inguinal hernias only contain fat. 4. Bilateral dependent basilar and left lingular atelectatic changes. Heart size is borderline prominent. 5. Otherwise , bowel is intact without obstruction to explain abdominal distention Reyes Guzman MD Abdomen X-Ray 09/10/17 0600 Signed Impressions: Service Date/Time: Sunday, September 10, 2017 03:56 - CONCLUSION: No significant abnormality is identified. There is mild distention of the colon but there are no findings to suggest bowel obstruction or significant ileus. Ignacio Underwood MD Liver Ultrasound 09/07/17 0000 Signed Impressions: Service Date/Time: Thursday, September 07, 2017 12:37 - CONCLUSION: 1. Unremarkable sonographic appearance of the liver. No evidence for hepatic volume loss or intrahepatic ductal dilatation. 2. No sonographic evidence for cholelithiasis or acute cholecystitis. 3. Mild increased right renal echogenicity may reflect medical renal disease. 4. Small bilateral pleural effusions. 5. Pancreas and inferior pole of the right kidney are obscured by bowel gas and therefore not evaluated. Darrell Robles MD Renal Ultrasound 08/31/17 0000 Signed Impressions: Service Date/Time: Thursday, August 31, 2017 17:42 - CONCLUSION: 1. No evidence of hydronephrosis on either side. 2. Solitary linear echogenic focus in the upper pole parenchyma of the right kidney has similar features to prior examination in January 2017 and possibly represents a calcification. David Snell MD Neck CTA [id number] Signed Impressions: Service Date/Time: Tuesday, August 29, 2017 00:13 - CONCLUSION: Negative carotid CTA. David nSell MD Head CTA 08/28/177 Signed Impressions: Service Date/Time: Tuesday, August 29, 2017 00:13 - CONCLUSION: 1. No evidence of vessel truncation or aneurysm. 2. No abnormal vessels in the region of the large left thalamic hemorrhage. David Snell MD PHYSICAL EXAMINATION GENERAL: Awake on the ventilator. HEENT: The sclerae is pale. No icterus. Oropharynx, the patient has marked swelling of the tongue filling the mouth opening. NECK: No adenopathy. Mild swelling. LUNGS: Decreased breath sounds at the bases unchanged. HEART: Regular S1-S2 without murmurs. ABDOMEN: Bowel sounds present, soft. No tenderness. No masses palpable. EXTREMITIES: No clubbing or cyanosis. Trace edema of the hands. NEUROLOGIC: Unable to assess. PSYCHIATRIC: Unable to assess. IMPRESSION Persistent fever: Very likely due to intracranial bleed. Pneumonia due to Klebsiella. Leukocytosis. WBC still elevated. ? Decadron. RECOMMENDATIONS 1. Continue piperacillin / tazobactam. 2. Monitor white blood cell count. Kaz Gregg MD Sep 17, 2017 13:15
--- NOTE | 2017-09-17 13:42 | HHI.NSPN ---
History Chief Complaint: Unable to obtain due to patient's clinical condition. Interval History 08/29: History of hypertension who was brought to the emergency room per [facility] after being found with altered mental status, right hemiparesis. He had reportedly been seen to be normal approximately 3-1/2 hours prior. Systolic blood pressure greater than 260/130 on initial evaluation. No seizure activity reported. Positive emesis. Per emergency room personnel the patient was responding verbally, difficulty raising his right arm upon initial arrival. He was intubated in the emergency room and a stat CT scan accomplished which has revealed a primarily left thalamic intracranial hemorrhage. 09/01/17: Patient remains intubated and sedated. 09/02: intubated and well sedated, not tolerating sedation vacation due to increase in blood pressure. 09/03/17: Remains on propofol and fentanyl IV for ventilator control. Positive agitation with decreased sedation 09/04/17: Pt sedated on Diprivan and Fentanyl drip. Not following commands. Pt on Cardene drip. Intubated. 09/05/17: Pt sedated on Diprivan and Fentanyl drip. Not following commands. Pt on Cardene drip. Intubated. Pupils 2mm bilaterally, NR bilaterally. 09/06/17: Remains intubated. PEG tube placed today. On Decadron and Benadryl for angioedema. Lisinopril discontinued 09/07. The patient is obtunded but is sedated with propofol. Nursing reports that the patient does have bleeding secondary to his PEG tube being placed yesterday. The family reports that the plan is to do a tracheostomy tomorrow. Nursing does say the patient does withdraw to stimulation, has a cough and gag reflex but his pupils are nonreactive. 09/10: The patient continues to be obtunded although he has sedation infusing at a low dose. He is trached and tolerating a CPAP trial. 09/13: Obtunded versus lethargic. He is not on any sedation. He is trached and mechanically ventilated. He went for a CT brain this morning. Nursing reports that the patient does withdraw to noxious stimulation and that the pupils are sluggish. 09/14: The patient has his eyes open when seen. He continues to be trached and mechanically ventilated. Nursing this morning reports that the patient gave a thumbs up on the left hand to command for him. 09/15: Pt off sedative drips. Pupils 2mm bilaterally slight reaction bilaterally. Not following commands. Not opening eyes. 09/16: When seen this morning the patient appears lethargic. He is trached and on T-piece. Nursing reports that the patient was more alert and did give a thumbs up to command this morning prior to receiving diphenhydramine. He also reported no movement to the right side. 09/17: No acute events overnight. Patient up in chair Exam Results Vital Signs Date Time Temp Pulse Resp B/P (MAP) Pulse Ox O2 Delivery O2 Flow Rate FiO2 09/17/17 12:00 78 09/17/17 12:00 35 09/17/17 12:00 99.0 16 131/79 (96) 99 09/17/17 07:56 T-piece Intake and Output 09/17/17 09/17/17 09/18/17 08:00 16:00 00:00 Intake Total 1109 ml Output Total 2000.0 ml Balance -891.0 ml Physical Examination GEN: Patient awake and tracks spontaneously HEENT: Normocephalic, atraumatic. Tongue protrudes out of mouth and is edematous. Trached with trach collar in place CV: Regular rate and rhythm PULM: Diminished breath sounds at the bases GI: soft, nondistended, normoactive bowel sounds : Coleman in place Extremities: Edema to both lower extremities. NEURO: GCS [id number] CNII: Pupils OS 3+/OD 3+. Unable to assess visual field CNIII/IV/: EOMI bilaterally CNVII: Face symmetric CNVIII: Unable to assess hearing Motor strength testing (L/R): Motor exam limited secondary to patient cooperation. Spontaneous movement of upper extremity. DTR: Patella 1+ No clonus Sensory: Unable to assess Gait: Unable to assess Lab, Micro, Other Results Allergies Coded Allergies Type Severity Reaction Last Updated Verified No Known Allergies 01/06/17 Yes Recent Impressions Chest X-Ray 09/17/17 0600 Signed Impressions: Service Date/Time: Sunday, September 17, 2017 04:32 - CONCLUSION: Left basilar airspace disease. Julian Loaiza MD Maxillofacial CT 09/16/17 0000 Signed Impressions: Service Date/Time: September 01:03 - CONCLUSION: 1. Evidence of acute pansinusitis. 2. Opacification of multiple bilateral mastoid air cells most characteristic of mastoiditis. 3. Mildly prominent cervical chain nodes which may be reactive. Angelo Conn MD Upper Extremity Ultrasound 09/15/17 0000 Signed Impressions: Service Date/Time: Friday, September 15, 2017 17:14 - CONCLUSION: Occlusive thrombus within the left cephalic vein and nonocclusive thrombus within the right cephalic vein. Ric Jack MD Lower Extremity Ultrasound 09/15/17 0000 Signed Impressions: Service Date/Time: Friday, September 15, 2017 16:58 - CONCLUSION: No evidence of DVT within the lower extremities. Ric Jack MD 09/15/17 09/15/17 09/16/17 09/16/17 09/17/17 09/17/17 06:00 18:00 06:00 18:00 06:00 18:00 Intake Total 1210 ml 1499 ml 1113 ml 1347 ml 1653 ml Output Total 1000 ml 1075 ml 1000 ml 1375 ml 2000 ml 0 ml Balance 210 ml 424 ml 113 ml -28 ml -347 ml 0 ml IV Total 156 ml 375 ml 48 ml 544 ml Tube Feeding 454 ml 524 ml 513 ml 699 ml 509 ml Other 600 ml 600 ml 600 ml 600 ml 600 ml Output Urine Total 1000 ml 1075 ml 1000 ml 1375 ml 2000 ml Tube Feeding Residual Discard 0 ml 0 ml 0 ml 0 ml # Bowel Movements 1 2 0 3 0 Laboratory Tests Test 09/15/17 06:05 09/15/17 13:55 09/16/17 04:33 09/17/17 05:30 Blood Urea Nitrogen 53 MG/DL 56 MG/DL 53 MG/DL Creatinine 2.66 MG/DL 2.57 MG/DL 2.32 MG/DL Random Glucose 215 MG/DL 278 MG/DL 293 MG/DL Total Protein 6.6 GM/DL 6.5 GM/DL Albumin 1.6 GM/DL 1.7 GM/DL Calcium Level 8.5 MG/DL 8.4 MG/DL 8.4 MG/DL Alkaline Phosphatase 89 U/L 86 U/L Aspartate Amino Transf (AST/SGOT) 73 U/L 83 U/L Alanine Aminotransferase (ALT/SGPT) 94 U/L 109 U/L Total Bilirubin 0.4 MG/DL 0.3 MG/DL Sodium Level 146 MEQ/L 150 MEQ/L 149 MEQ/L Potassium Level 3.4 MEQ/L 3.6 MEQ/L 3.6 MEQ/L Chloride Level 110 MEQ/L 113 MEQ/L 113 MEQ/L Carbon Dioxide Level 28.7 MEQ/L 29.3 MEQ/L 28.7 MEQ/L Anion Gap 7 MEQ/L 8 MEQ/L 7 MEQ/L Estimat Glomerular Filtration Rate 32 ML/MIN 33 ML/MIN 37 ML/MIN White Blood Count 14.6 TH/MM3 13.6 TH/MM3 15.3 TH/MM3 Red Blood Count 3.55 MIL/MM3 3.39 MIL/MM3 3.38 MIL/MM3 Hemoglobin 9.4 GM/DL 9.0 GM/DL 8.8 GM/DL Hematocrit 29.4 % 27.6 % 28.0 % Mean Corpuscular Volume 82.8 FL 81.3 FL 83.0 FL Mean Corpuscular Hemoglobin 26.3 PG 26.6 PG 26.1 PG Mean Corpuscular Hemoglobin Concent 31.8 % 32.7 % 31.4 % Red Cell Distribution Width 14.7 % 14.5 % 15.0 % Platelet Count 409 TH/MM3 365 TH/MM3 436 TH/MM3 Mean Platelet Volume 10.4 FL 10.5 FL 10.4 FL Neutrophils (%) (Auto) 79.4 % 88.8 % Lymphocytes (%) (Auto) 7.7 % 4.6 % Monocytes (%) (Auto) 9.8 % 6.1 % Eosinophils (%) (Auto) 2.4 % 0.1 % Basophils (%) (Auto) 0.7 % 0.4 % Neutrophils # (Auto) 11.6 TH/MM3 13.6 TH/MM3 Lymphocytes # (Auto) 1.1 TH/MM3 0.7 TH/MM3 Monocytes # (Auto) 1.4 TH/MM3 0.9 TH/MM3 Eosinophils # (Auto) 0.3 TH/MM3 0.0 TH/MM3 Basophils # (Auto) 0.1 TH/MM3 0.1 TH/MM3 CBC Comment DIFF FINAL AUTO DIFF Differential Comment FINAL DIFF MANUAL Hematology Comments Random Vancomycin Level 11.7 COMMENT 20.9 COMMENT Differential Total Cells Counted 100 Neutrophils % (Manual) 81 % Band Neutrophils % 3 % Lymphocytes % 7 % Monocytes % 6 % Neutrophils # (Manual) 13.3 TH/MM3 Myelocytes 3 % Platelet Estimate NORMAL Platelet Morphology Comment NORMAL Red Cell Morphology Comment NORMAL Orders Procedure Category Date Status Time Consult Infectious CONS 09/14/17 Transmitted Disease (Hub Use Only)In Phy CONS 09/14/17 Transmitted Cons/Ref Comprehensive LAB 09/15/17 Complete Metabolic Panel 06:00 Complete Blood Count LAB 09/15/17 Complete With Diff 06:00 Potassium Chlor 20 MED 09/15/17 Complete Meq Premix (Kcl 20 Me 08:15 Resp Cpap Trial RSP 09/15/17 Logged Us Arm Venous Doppler RADUS 09/15/17 Resulted Bilat Us Leg Venous Doppler RADUS 09/15/17 Resulted Bilat Consult Ent CONS 09/15/17 Transmitted Dexamethasone Inj MED 09/15/17 Complete (Decadron Inj) 14:15 Diphenhydramine Inj MED 09/15/17 In Process (Benadryl Inj) 15:00 (Hub Use Only)In[place]ann[place] CONS 09/15/17 Transmitted Cons/Ref Random Vancomycin LAB 09/16/17 Complete 05:00 Ct Facial Bones W/O RADCT 09/16/17 Resulted Iv Cont Lidocaine Pf 2% Neb MED 09/16/17 In Process (Lidocaine Pf 2% Neb 11:30 Complete Blood Count LAB 09/17/17 Complete With Diff 06:00 Comprehensive LAB 09/17/17 Complete Metabolic Panel 06:00 Chest, Single Ap RADDIAG 09/17/17 Resulted 06:00 Activity Oob With PRINCE 09/16/17 In Process Assistance 12:22 Vancomycin Inj MED 09/16/17 Complete (Vancomycin Inj) 15:00 Random Vancomycin LAB 09/17/17 Complete 06:00 (Hub Use Only)In Phy CONS 09/16/17 Transmitted Cons/Ref Resp Trach Collar RSP 09/16/17 Logged Insulin Human Reg MED 09/16/17 Complete Supp Scale (Novolin R 18:00 Labetalol (Trandate) MED 09/17/17 In Process 14:00 Labetalol (Trandate) MED 09/17/17 Complete 04:15 Dexamethasone Inj MED 09/17/17 Logged (Decadron Inj) 21:00 Complete Blood Count LAB 09/18/17 Verified With Diff 06:00 Comprehensive LAB 09/18/17 Verified Metabolic Panel 06:00 Albuterol-Ipratropium MED 09/17/17 Logged Neb (Duoneb Neb) 13:00 Oxycodone Liq MED 09/17/17 Logged (Roxicodone Intensol 13:00 Propranolol (Inderal) MED 09/17/17 Logged 18:00 Vital Signs Date Time Temp Pulse Resp B/P (MAP) Pulse Ox O2 Delivery O2 Flow Rate FiO2 09/17/17 12:00 78 09/17/17 12:00 35 09/17/17 12:00 99.0 76 16 131/79 (96) 99 09/17/17 10:00 69 09/17/17 08:00 98.4 75 13 143/71 (95) 99 09/17/17 08:00 75 09/17/17 08:00 35 09/17/17 07:56 100 T-piece 35 09/17/17 07:45 100 35 09/17/17 07:00 100 Mechanical Ventilator 35 Trach Collar 09/17/17 06:00 70 09/17/17 04:57 80 159/67 09/17/17 04:00 35 09/17/17 04:00 80 09/17/17 04:00 99.5 80 14 159/70 (99) 99 09/17/17 03:43 99 35 09/17/17 02:37 81 189/90 09/17/17 02:00 80 09/17/17 00:20 99 35 09/17/17 00:00 35 09/17/17 00:00 90 09/17/17 00:00 99.3 90 15 173/80 (111) 99 09/16/17 23:16 81 196/93 09/16/17 22:00 82 09/16/17 20:29 100 35 09/16/17 20:15 35 09/16/17 20:00 99.3 71 16 175/100 (125) 100 09/16/17 20:00 100 T-Piece 35 09/16/17 20:00 77 09/16/17 18:00 75 09/16/17 16:00 99.3 79 19 186/96 (126) 95 09/16/17 16:00 78 09/16/17 15:01 99 T-piece 35 09/16/17 14:00 81 09/16/17 12:00 99.1 86 19 156/70 (98) 95 09/16/17 12:00 87 09/16/17 11:32 95 T-piece 35 09/16/17 11:21 98 35 09/16/17 10:00 88 09/16/17 08:00 99.7 88 21 187/76 (113) 95 09/16/17 08:00 40 09/16/17 08:00 88 09/16/17 07:36 35 09/16/17 07:36 100 35 09/16/17 06:00 80 09/16/17 06:00 09/16/17 04:08 99 40 09/16/17 04:00 100.4 82 16 158/94 (115) 97 09/16/17 04:00 40 09/16/17 04:00 82 09/16/17 02:00 79 09/16/17 01:36 100 40 09/16/17 01:00 100 100 09/16/17 00:00 89 09/16/17 00:00 40 09/16/17 00:00 100.6 89 16 140/77 (98) 100 09/15/17 22:00 83 09/15/17 21:00 40 09/15/17 20:31 100 40 09/15/17 20:00 84 09/15/17 20:00 100.8 83 16 130/75 (93) 100 09/15/17 20:00 40 09/15/17 18:00 95 09/15/17 16:32 100 40 09/15/17 16:00 95 09/15/17 16:00 40 09/15/17 16:00 101.0 96 18 137/75 (95) 09/15/17 14:00 94 09/15/17 12:00 100.9 93 16 148/82 (104) 100 09/15/17 12:00 93 09/15/17 12:00 40 09/15/17 11:52 100 40 09/15/17 11:45 95 T-piece 40 09/15/17 10:00 91 09/15/17 08:00 40 09/15/17 08:00 97 09/15/17 08:00 101.4 85 16 98/51 (67) 100 09/15/17 07:50 40 09/15/17 07:50 100 40 09/15/17 07:00 100 Mechanical Ventilator 40 09/15/17 06:00 97 09/15/17 04:06 99 40 09/15/17 04:00 40 09/15/17 04:00 101.1 103 16 142/77 (98) 99 09/15/17 04:00 101 09/15/17 02:00 102 09/15/17 01:06 99 40 09/15/17 00:00 40 09/15/17 00:00 94 09/15/17 00:00 102.2 94 21 129/71 (90) 98 09/14/17 20:01 100 40 09/14/17 20:00 40 09/14/17 20:00 84 09/14/17 20:00 100.6 92 16 128/73 (91) 98 09/14/17 19:00 100 Mechanical Ventilator 40 09/14/17 18:00 93 09/14/17 17:41 100 40 09/14/17 16:00 40 09/14/17 16:00 98 09/14/17 16:00 100.1 98 16 151/90 (110) 98 09/14/17 14:00 91 Medical Decision Making Impression and Plan Mr Matos has a large thalamic intracerebral hemorrhage with intraventricular extension. Neuro: Improving neurologic status with intermittently following commands. Recent head CT show resolution of hemorrhage. Continue to wean sedation Seizure prophylaxis: Not required. Hypertension: This is likely the underlying cause of the hemorrhage. Blood pressure now controlled on amlodipine, propranolol, and clonidine Pulm: Left lower lobe pneumonia on Zosyn. Improving pulmonary function on trach collar GI: Status post PEG tube placement. PPI prophylaxis. : Resolving RAFAELA Continue free water flushes and Coleman catheter for monitoring F/E/N: Malnutrition, now at goal with tube feeds ID: Persistent leukocytosis, but improving over last 4 days. Sputum culture showed Klebsiella. Continue Zosyn DVT prophylaxis: SCD, Heparin Clint Freitas MD Sep 17, 2017 13:42
[2017-09-17] MEDS: LABETALOL HCL 300 MG TAB PEG SCH ×2 (14:00→20:39)
[2017-09-17] MEDS: RESP: ALBUTEROL 2.5 MG/IPRATROPIUM 0.5 MG NEB (SCH) INH ×2 (15:35→20:47)
[2017-09-17] MEDS: PROPRANOLOL HCL 40 MG TAB PO SCH (17:12)
[2017-09-17] MEDS: ATORVASTATIN 40 MG TAB PO SCH (20:39)
[2017-09-18] VITALS (18 sets, daily range): BP systolic 147–171; BP diastolic 79–93; PULSE 54–80; RESP 12–20; TEMP 98.6–99.9; O2SAT 35–100
[2017-09-18] MEDS: INSULIN NovoLIN REGULAR SUPPLEMENTAL SCALE SQ SCH ×5 (00:19→20:06)
[2017-09-18] MEDS: FREE WATER G-TUBE SCH ×6 (00:19→20:07)
[2017-09-18] MEDS: PROPRANOLOL HCL 40 MG TAB PO SCH ×5 (00:19→22:55)
[2017-09-18] MEDS: oxyCODONE HCL ORAL CONC 5 MG/0.25 ML SYRINGE PO SCH ×2 (03:33→08:05)
[2017-09-18] MEDS: PIPERACIL-TAZO 2.25 GM PREMIX 50 ML IV SCH ×4 (03:33→20:09)
[2017-09-18] MEDS: diphenhydrAMINE HCL 50 MG/ML VIAL IV PUSH SCH ×2 (03:33→08:06)
[2017-09-18] MEDS: RESP: ALBUTEROL 2.5 MG/IPRATROPIUM 0.5 MG NEB (SCH) INH ×4 (03:42→21:12)
[2017-09-18] MEDS: CHLORHEXIDINE GLUCONATE 2 % 1 PACK (2 CLOTHS) TOP SCH (04:00)
[2017-09-18 04:08] LABS: AUTOMATED NEUTROPHIL # 10.5 TH/MM3 (1.8-7.7); BASOPHIL # 0.1 TH/MM3 (0-0.2); BASOPHIL % 0.5 % (0.0-2.0); EOSINOPHIL % 0.1 % (0.0-4.0); HEMATOCRIT 26.6 % (39.0-51.0); HEMOGLOBIN 8.4 GM/DL (13.0-17.0); LYMPH % 5.2 % (9.0-44.0); LYMPHOCYTE # 0.6 TH/MM3 (1.0-4.8); MEAN CELL VOLUME 84.8 FL (80.0-100.0); MEAN CORPUSCULAR HEMOGLOBIN 26.7 PG (27.0-34.0); MEAN CORPUSCULAR HGB CONC 31.5 % (32.0-36.0); MEAN PLATELET VOLUME 10.6 FL (7.0-11.0); MONO % 6.1 % (0.0-8.0); MONOCYTE # 0.7 TH/MM3 (0-0.9); NEUT % 88.1 % (16.0-70.0); PLATELET COUNT 386 TH/MM3 (150-450); RED BLOOD COUNT 3.13 MIL/MM3 (4.50-5.90); RED CELL DISTRIBUTION WIDTH 15.2 % (11.6-17.2); WHITE BLOOD COUNT 11.9 TH/MM3 (4.0-11.0)
[2017-09-18 04:42] LABS: ALBUMIN 1.9 GM/DL (3.4-5.0); ALKALINE PHOSPHATASE 91 U/L (45-117); ALT (GPT) 130 U/L (12-78); AST (GOT) 80 U/L (15-37); BICARBONATE 29.7 MEQ/L (21.0-32.0); BLOOD UREA NITROGEN 59 MG/DL (7-18); CALCIUM 8.5 MG/DL (8.5-10.1); CHLORIDE 114 MEQ/L (98-107); CREATININE 2.48 MG/DL (0.60-1.30); GLOMERULAR FILTRATION RATE 34 ML/MIN (>89); GLUCOSE,RANDOM 343 MG/DL (74-106); SODIUM (NA) 151 MEQ/L (136-145); TOTAL BILIRUBIN ADULT 0.3 MG/DL (0.2-1.0); TOTAL PROTEIN 6.3 GM/DL (6.4-8.2)
[2017-09-18] MEDS: LABETALOL HCL 300 MG TAB PEG SCH ×3 (04:56→20:08)
[2017-09-18] MEDS: cloNIDine HCL 0.3 MG TAB PO SCH ×3 (04:56→20:08)
[2017-09-18 04:59] LABS: BANDS 4 % (0-6); LYMPHOCYTES 7 % (9-44); MONOCYTES 3 % (0-8); MYELOCYTES 2 % (0-0); NEUTROPHIL # MANUAL DIFF 10.7 TH/MM3 (1.8-7.7); POLYS (SEG NEUTROPHILS) 84 % (16-70)
[2017-09-18] MEDS: FLUTICASONE PROPIONATE 50 MCG/ACT 16 GM NASAL SPRAY EACH NARE SCH (08:00)
[2017-09-18] MEDS: CHLORHEXIDINE 0.12% (ORAL KIT) 15 ML CUP MT SCH ×2 (08:00→20:07)
[2017-09-18] MEDS: HEPARIN SODIUM - SQ 10,000 UNITS/ML VIAL SQ SCH ×2 (08:05→20:06)
[2017-09-18] MEDS: FAMOTIDINE 20 MG TAB NG SCH ×2 (08:06→20:08)
[2017-09-18] MEDS: DEXAMETHASONE SOD PHOS 4 MG/ML VIAL IV PUSH SCH ×2 (08:06→20:08)
[2017-09-18] MEDS: DOCUSATE SODIUM 50 MG/SENNA 8.6 MG TAB PO SCH ×2 (08:07→20:08)
[2017-09-18] MEDS: POLYETHYLENE GLYCOL 17 GM PKG PO SCH ×2 (08:07→20:08)
[2017-09-18] MEDS: hydrALAZINE HCL 20 MG/ML VIAL IV PUSH PRN (09:42)
[2017-09-18] MEDS: INSULIN DETEMIR 100 UNITS/ML VIAL SQ SCH (09:49)
--- NOTE | 2017-09-18 10:12 | HHI.NSPN ---
History Chief Complaint: Unable to obtain due to patient's clinical condition. Interval History 08/29: History of hypertension who was brought to the emergency room per E [facility] after being found with altered mental status, right hemiparesis. He had reportedly been seen to be normal approximately 3-1/2 hours prior. Systolic blood pressure greater than 260/130 on initial evaluation. No seizure activity reported. Positive emesis. Per emergency room personnel the patient was responding verbally, difficulty raising his right arm upon initial arrival. He was intubated in the emergency room and a stat CT scan accomplished which has revealed a primarily left thalamic intracranial hemorrhage. 09/01/17: Patient remains intubated and sedated. 09/02: intubated and well sedated, not tolerating sedation vacation due to increase in blood pressure. 09/03/17: Remains on propofol and fentanyl IV for ventilator control. Positive agitation with decreased sedation 09/04/17: Pt sedated on Diprivan and Fentanyl drip. Not following commands. Pt on Cardene drip. Intubated. 09/05/17: Pt sedated on Diprivan and Fentanyl drip. Not following commands. Pt on Cardene drip. Intubated. Pupils 2mm bilaterally, NR bilaterally. 09/06/17: Remains intubated. PEG tube placed today. On Decadron and Benadryl for angioedema. Lisinopril discontinued 09/07. The patient is obtunded but is sedated with propofol. Nursing reports that the patient does have bleeding secondary to his PEG tube being placed yesterday. The family reports that the plan is to do a tracheostomy tomorrow. Nursing does say the patient does withdraw to stimulation, has a cough and gag reflex but his pupils are nonreactive. 09/10: The patient continues to be obtunded although he has sedation infusing at a low dose. He is trached and tolerating a CPAP trial. 09/13: Obtunded versus lethargic. He is not on any sedation. He is trached and mechanically ventilated. He went for a CT brain this morning. Nursing reports that the patient does withdraw to noxious stimulation and that the pupils are sluggish. 09/14: The patient has his eyes open when seen. He continues to be trached and mechanically ventilated. Nursing this morning reports that the patient gave a thumbs up on the left hand to command for him. 09/15: Pt off sedative drips. Pupils 2mm bilaterally slight reaction bilaterally. Not following commands. Not opening eyes. 09/16: When seen this morning the patient appears lethargic. He is trached and on T-piece. Nursing reports that the patient was more alert and did give a thumbs up to command this morning prior to receiving diphenhydramine. He also reported no movement to the right side. 09/17: No acute events overnight. Patient up in chair 09/18: No acute events overnight. Patient remains hypertensive. He is in bed with at his side. Exam Results Vital Signs Date Time Temp Pulse Resp B/P (MAP) Pulse Ox O2 Delivery O2 Flow Rate FiO2 09/18/17 09:05 15 09/18/17 08:25 35 T-piece 6.00 09/18/17 08:00 35 09/18/17 08:00 99.1 69 171/93 (119) Intake and Output 09/18/17 09/18/17 09/19/17 08:00 16:00 00:00 Intake Total 1317 ml Output Total 1150 ml Balance 167 ml Physical Examination GEN: Patient awake and tracks spontaneously HEENT: Normocephalic, atraumatic. Tongue protrudes out of mouth and is edematous. Trached with trach collar in place CV: Regular rate and rhythm PULM: Diminished breath sounds at the bases GI: soft, nondistended, normoactive bowel sounds : Coleman in place Extremities: Edema to both lower extremities. NEURO: GCS [id number] CNII: Pupils OS 3+/OD 3+. Unable to assess visual field CNIII/IV/: EOMI bilaterally CNVII: Face symmetric CNVIII: Unable to assess hearing Motor strength testing (L/R): Motor exam limited secondary to patient cooperation. Spontaneous movement of upper extremity. DTR: Patella 1+ No clonus Sensory: Unable to assess Gait: Unable to assess Lab, Micro, Other Results Allergies Coded Allergies Type Severity Reaction Last Updated Verified No Known Allergies 01/06/17 Yes Recent Impressions Chest X-Ray 09/17/17 0600 Signed Impressions: Service Date/Time: Sunday, September 17, 2017 04:32 - CONCLUSION: Left basilar airspace disease. Julian Loaiza MD Maxillofacial CT 09/16/17 0000 Signed Impressions: Service Date/Time: September 01:03 - CONCLUSION: 1. Evidence of acute pansinusitis. 2. Opacification of multiple bilateral mastoid air cells most characteristic of mastoiditis. 3. Mildly prominent cervical chain nodes which may be reactive. Angelo Conn MD 09/16/17 09/16/17 09/17/17 09/17/17 09/18/17 09/18/17 06:00 18:00 06:00 18:00 06:00 18:00 Intake Total 1113 ml 1347 ml 1653 ml 1432 ml 100 ml 1217 ml Output Total 1000 ml 1375 ml 2000 ml 1075 ml 1150 ml Balance 113 ml -28 ml -347 ml 357 ml 100 ml 67 ml IV Total 48 ml 544 ml 216 ml 100 ml Tube Feeding 513 ml 699 ml 509 ml 616 ml 617 ml Other 600 ml 600 ml 600 ml 600 ml 600 ml Output Urine Total 1000 ml 1375 ml 2000 ml 1075 ml 1150 ml Tube Feeding Residual Discard 0 ml 0 ml 0 ml 0 ml # Bowel Movements 0 3 0 1 Laboratory Tests Test 09/15/17 13:55 09/16/17 04:33 09/17/17 05:30 09/18/17 03:46 White Blood Count 14.6 TH/MM3 13.6 TH/MM3 15.3 TH/MM3 11.9 TH/MM3 Red Blood Count 3.55 MIL/MM3 3.39 MIL/MM3 3.38 MIL/MM3 3.13 MIL/MM3 Hemoglobin 9.4 GM/DL 9.0 GM/DL 8.8 GM/DL 8.4 GM/DL Hematocrit 29.4 % 27.6 % 28.0 % 26.6 % Mean Corpuscular Volume 82.8 FL 81.3 FL 83.0 FL 84.8 FL Mean Corpuscular Hemoglobin 26.3 PG 26.6 PG 26.1 PG 26.7 PG Mean Corpuscular Hemoglobin Concent 31.8 % 32.7 % 31.4 % 31.5 % Red Cell Distribution Width 14.7 % 14.5 % 15.0 % 15.2 % Platelet Count 409 TH/MM3 365 TH/MM3 436 TH/MM3 386 TH/MM3 Mean Platelet Volume 10.4 FL 10.5 FL 10.4 FL 10.6 FL Neutrophils (%) (Auto) 79.4 % 88.8 % 88.1 % Lymphocytes (%) (Auto) 7.7 % 4.6 % 5.2 % Monocytes (%) (Auto) 9.8 % 6.1 % 6.1 % Eosinophils (%) (Auto) 2.4 % 0.1 % 0.1 % Basophils (%) (Auto) 0.7 % 0.4 % 0.5 % Neutrophils # (Auto) 11.6 TH/MM3 13.6 TH/MM3 10.5 TH/MM3 Lymphocytes # (Auto) 1.1 TH/MM3 0.7 TH/MM3 0.6 TH/MM3 Monocytes # (Auto) 1.4 TH/MM3 0.9 TH/MM3 0.7 TH/MM3 Eosinophils # (Auto) 0.3 TH/MM3 0.0 TH/MM3 0.0 TH/MM3 Basophils # (Auto) 0.1 TH/MM3 0.1 TH/MM3 0.1 TH/MM3 CBC Comment DIFF FINAL AUTO DIFF AUTO DIFF Differential Comment FINAL DIFF MANUAL FINAL DIFF MANUAL Hematology Comments Blood Urea Nitrogen 56 MG/DL 53 MG/DL 59 MG/DL Creatinine 2.57 MG/DL 2.32 MG/DL 2.48 MG/DL Random Glucose 278 MG/DL 293 MG/DL 343 MG/DL Calcium Level 8.4 MG/DL 8.4 MG/DL 8.5 MG/DL Sodium Level 150 MEQ/L 149 MEQ/L 151 MEQ/L Potassium Level 3.6 MEQ/L 3.6 MEQ/L 4.4 MEQ/L Chloride Level 113 MEQ/L 113 MEQ/L 114 MEQ/L Carbon Dioxide Level 29.3 MEQ/L 28.7 MEQ/L 29.7 MEQ/L Anion Gap 8 MEQ/L 7 MEQ/L 7 MEQ/L Estimat Glomerular Filtration Rate 33 ML/MIN 37 ML/MIN 34 ML/MIN Random Vancomycin Level 11.7 COMMENT 20.9 COMMENT Differential Total Cells Counted 100 100 Neutrophils % (Manual) 81 % 84 % Band Neutrophils % 3 % 4 % Lymphocytes % 7 % 7 % Monocytes % 6 % 3 % Neutrophils # (Manual) 13.3 TH/MM3 10.7 TH/MM3 Myelocytes 3 % 2 % Platelet Estimate NORMAL NORMAL Platelet Morphology Comment NORMAL NORMAL Red Cell Morphology Comment NORMAL Total Protein 6.5 GM/DL 6.3 GM/DL Albumin 1.7 GM/DL 1.9 GM/DL Alkaline Phosphatase 86 U/L 91 U/L Aspartate Amino Transf (AST/SGOT) 83 U/L 80 U/L Alanine Aminotransferase (ALT/SGPT) 109 U/L 130 U/L Total Bilirubin 0.3 MG/DL 0.3 MG/DL Orders Procedure Category Date Status Time Resp Cpap Trial RSP 09/15/17 Logged Us Arm Venous Doppler RADUS 09/15/17 Resulted Bilat Us Leg Venous Doppler RADUS 09/15/17 Resulted Bilat Consult Ent CONS 09/15/17 Transmitted Dexamethasone Inj MED 09/15/17 Complete (Decadron Inj) 14:15 Diphenhydramine Inj MED 09/15/17 In Process (Benadryl Inj) 15:00 (Hub Use Only)Inp Phy CONS 09/15/17 Transmitted Cons/Ref Random Vancomycin LAB 09/16/17 Complete 05:00 Ct Facial Bones W/O RADCT 09/16/17 Resulted Iv Cont Lidocaine Pf 2% Neb MED 09/16/17 In Process (Lidocaine Pf 2% Neb 11:30 Complete Blood Count LAB 09/17/17 Complete With Diff 06:00 Comprehensive LAB 09/17/17 Complete Metabolic Panel 06:00 Chest, Single Ap RADDIAG 09/17/17 Resulted 06:00 Activity Oob With PRINCE 09/16/17 In Process Assistance 12:22 Vancomycin Inj MED 09/16/17 Complete (Vancomycin Inj) 15:00 Random Vancomycin LAB 09/17/17 Complete 06:00 (Hub Use Only)Inp Phy CONS 09/16/17 Transmitted Cons/Ref Resp Trach Collar RSP 09/16/17 Logged Insulin Human Reg MED 09/16/17 Complete Supp Scale (Novolin R 18:00 Labetalol (Trandate) MED 09/17/17 In Process 14:00 Labetalol (Trandate) MED 09/17/17 Complete 04:15 Dexamethasone Inj MED 09/17/17 In Process (Decadron Inj) 21:00 Complete Blood Count LAB 09/18/17 Complete With Diff 06:00 Comprehensive LAB 09/18/17 Complete Metabolic Panel 06:00 Oxycodone Liq MED 09/17/17 In Process (Roxicodone Intensol 15:00 Albuterol-Ipratropium MED 09/17/17 In Process Neb (Duoneb Neb) 16:00 Propranolol (Inderal) MED 09/17/17 In Process 18:00 Insulin Detemir Inj MED 09/17/17 In Process (Levemir Inj) 22:00 Electrocardiogram CAV 09/17/17 Complete Vital Signs Date Time Temp Pulse Resp B/P (MAP) Pulse Ox O2 Delivery O2 Flow Rate FiO2 09/18/17 09:05 15 09/18/17 08:25 35 T-piece 6.00 09/18/17 08:00 35 09/18/17 08:00 99.1 69 20 171/93 (119) 100 09/18/17 08:00 69 09/18/17 07:44 100 35 09/18/17 07:00 100 T-Piece 35 09/18/17 06:00 54 09/18/17 04:58 100 35 09/18/17 04:00 58 09/18/17 04:00 35 09/18/17 04:00 99.0 58 14 164/92 (116) 100 09/18/17 02:00 60 09/18/17 00:43 100 35 09/18/17 00:00 60 09/18/17 00:00 98.6 60 15 153/83 (106) 100 09/18/17 00:00 35 09/17/17 22:00 65 09/17/17 21:00 35 09/17/17 20:51 100 35 09/17/17 20:00 98.9 70 18 150/88 (108) 100 09/17/17 20:00 88 09/17/17 20:00 35 09/17/17 19:00 100 T-Piece 35 09/17/17 18:00 60 09/17/17 16:00 98.8 80 15 141/82 (101) 100 09/17/17 16:00 78 09/17/17 16:00 35 09/17/17 14:00 72 09/17/17 12:00 78 09/17/17 12:00 35 09/17/17 12:00 99.0 76 16 131/79 (96) 99 09/17/17 10:00 69 09/17/17 08:00 98.4 75 13 143/71 (95) 99 09/17/17 08:00 75 09/17/17 08:00 35 09/17/17 07:56 100 T-piece 35 09/17/17 07:45 100 35 09/17/17 07:00 100 Mechanical Ventilator 35 Trach Collar 09/17/17 06:00 70 09/17/17 04:57 80 159/67 09/17/17 04:00 35 09/17/17 04:00 80 09/17/17 04:00 99.5 80 14 159/70 (99) 99 09/17/17 03:43 99 35 09/17/17 02:37 81 189/90 09/17/17 02:00 80 09/17/17 00:20 99 35 09/17/17 00:00 35 09/17/17 00:00 90 09/17/17 00:00 99.3 90 15 173/80 (111) 99 09/16/17 23:16 81 196/93 09/16/17 22:00 82 09/16/17 20:29 100 35 09/16/17 20:15 35 09/16/17 20:00 99.3 71 16 175/100 (125) 100 09/16/17 20:00 100 T-Piece 35 09/16/17 20:00 77 09/16/17 18:00 75 09/16/17 16:00 99.3 79 19 186/96 (126) 95 09/16/17 16:00 78 09/16/17 15:01 99 T-piece 35 09/16/17 14:00 81 09/16/17 12:00 99.1 86 19 156/70 (98) 95 09/16/17 12:00 87 09/16/17 11:32 95 T-piece 35 09/16/17 11:21 98 35 09/16/17 10:00 88 09/16/17 08:00 99.7 88 21 187/76 (113) 95 09/16/17 08:00 40 09/16/17 08:00 88 09/16/17 07:36 35 09/16/17 07:36 100 35 09/16/17 06:00 80 09/16/17 06:00 09/16/17 04:08 99 40 09/16/17 04:00 100.4 82 16 158/94 (115) 97 09/16/17 04:00 40 09/16/17 04:00 82 09/16/17 02:00 79 09/16/17 01:36 100 40 09/16/17 01:00 100 100 09/16/17 00:00 89 09/16/17 00:00 40 09/16/17 00:00 100.6 89 16 140/77 (98) 100 09/15/17 22:00 83 09/15/17 21:00 40 09/15/17 20:31 100 40 09/15/17 20:00 84 09/15/17 20:00 100.8 83 16 130/75 (93) 100 09/15/17 20:00 40 09/15/17 18:00 95 09/15/17 16:32 100 40 09/15/17 16:00 95 09/15/17 16:00 40 09/15/17 16:00 101.0 96 18 137/75 (95) 09/15/17 14:00 94 09/15/17 12:00 100.9 93 16 148/82 (104) 100 09/15/17 12:00 93 09/15/17 12:00 40 09/15/17 11:52 100 40 09/15/17 11:45 95 T-piece 40 Medical Decision Making Impression and Plan Mr Matos has a large thalamic intracerebral hemorrhage with intraventricular extension. Neuro: Improving neurologic status with intermittently following commands. Recent head CT show resolution of hemorrhage. Continue to wean sedation Seizure prophylaxis: Not required. Hypertension: This is likely the underlying cause of the hemorrhage. Blood pressure now controlled on amlodipine, propranolol, and clonidine 09/18 Labile hypertension. Pulm: Left lower lobe pneumonia on Zosyn. Improving pulmonary function on trach collar 09/18 Stable GI: Status post PEG tube placement. PPI prophylaxis. : Resolving RAFAELA Continue free water flushes and Coleman catheter for monitoring F/E/N: Malnutrition, now at goal with tube feeds ID: Persistent leukocytosis, but improving over last 4 days. Sputum culture showed Klebsiella. Continue Zosyn DVT prophylaxis: SCD, Heparin Clint Freitas MD Sep 18, 2017 10:12
--- NOTE | 2017-09-18 11:54 | HHI.CCPN ---
Subjective Remarks/Hospital Course Hospital Course: 46 y/o man with longstanding hypertension and previous CVA presents obtunded with new neurological symptoms noticed prior to arrival. Timeline unclear. Required intubation in ED for airway protection. CT head shows left thalamic bleed and shift away from bleed. Toxicology screen pending. Subjective: 08/30: encephalopathy persists. bp under better control, still on cardene. on sedation vacation, moves left side spontaneously but nothing on right. 08/31: overnight, severely agitated, requiring high dose sedation. also, lambert obstructed, new lambert placed with improvement in obstruction. this morning, RAFAELA with Cr up to 3. urine Na < 10, suggestive of pre-renal etiology. continued ivf. high peak pressures on vent. suction lavage with thick tenacious secretions. bronch with left lobe mucous plugging. bronchospasm a significant problem requiring iv magnesium and duonebs. finally attempted small paralytic dose with improvement in abdominal breathing and fighting ventilator. 09/01: No improvement in neuro exam, intermittent jerking movements noted by the RN no seizure. Creatinine for urine output adequate. I have consulted nephrology. We'll check CT of the head repeat EEG tomorrow a.m. 09/02: Clinically remains same. Did not tolerate sedation vacation, became hypertensive. CT head today showed slight improvement in L thalamic and IVH. Dr. Tinajero is the neurosurgeon, Dr. Jhaveri covering 09/03: Still unable to tolerate sedation vacation. Becomes very asynchronous with the vent with desaturations. Discussed with daughters about possible tracheostomy, they want to discuss with their mom, patient's ex -. Creatinine has worsened to 5.1 but no acute indication for dialysis. Will check ABG urine output 1.8 L in 24 hours 09/04: Remains intubated sedated synchronous with the vent. Noted to have tongue swelling/angioedema. Lisinopril discontinued. Placed on Decadron and IV Benadryl. Plan for tracheostomy and PEG tube placement next week 09/05: Patient remains intubated sedated critically ill. No change or improvement in neuro status. Lisinopril discontinued yesterday Decadron and Benadryl started tongue swelling is improved. Hyperglycemia secondary to Decadron, random blood sugar 360. Will wean to DC. Plan for trach and PEG this week, if family agreeable 09/06: Angioedema improving with Decadron and Benadryl. Still gets very agitated with sedation lightening. Needs improved blood pressure control increase clonidine to 0.3 every 8 hours. Plan for PEG today and Trach 09/08/1709/07: Stable overnight, except bleeding/oozing from the PEG site. We'll give single dose of nasal DDAVP. Creatinine slightly improved to 4.4, urine output 3.9 L in 24 hours. Plan for tracheostomy 09/08/17. 09/08: Tracheostomy completed. Tongue edema unchanged. 09/09: Tolerating spontaneous respiration on trach. Tongue edema persists. 09/10: Tolerating progression to trach collar today. 09/11: t-piece x 24h. still not waking up and encephalopathic. however, not agitated. still hypertensive, tachycardic. will need placement. Cr continues to improve. still hypernatremic. 09/12: delayed note entry. seen around 1300 on 09/12. wbc slightly up, fever curve uptrending, but has history of fevers likely from thalamic stroke. sputum , urine cultures sent at 0600. will await these results before deciding further courses of action. still on t-piece and no overall clinical change. 09/13: Overnight events noted, febrile to 105, with tremor, clonus, rigidity. given dantrolene for possible NMS by Dr. Asif and stopped Haldol and Seroquel. Provigil also stop due to possibility of serotonin syndrome. Patient was started on Zosyn and vancomycin and panculture sent, and placed on full vent support due to tachypnea. Temp came down to 101 (his baseline) after dantrolene one dose. On my exam at this time patient does not have a rigidity and blood temperatures 101. Nursing staff reports thick yellow secretions, chest x-ray shows possible left lower lobe infiltrate. WBC increased from 15.5 to 23.3. I will get the CT of the chest to evaluate for lung infiltrate and also CT abdomen and pelvis to rule out any intra-abdominal source of sepsis. Hold off on Ativan at this time. Patient is also getting a CT of the head 09/14: Patient continues to spike fever but at baseline. WBC count is trending down (23.3 to 18.4). Sputum culture growing Klebsiella. Opens eyes spontaneously today. Weakly give thumbs up to the RN (I did not witness it) 09/15: Continues to spike fever, appreciate ID consult. I have ordered venous ultrasound of all extremities. Also check CT of the sinuses rule out sinusitis and also evaluate for transient swelling pharyngeal/retropharyngeal abscesses. ENT consulted for persistent angioedema 09/16: On CPAP. Eyes open. Following commands on LUE. Bilateral cephalic vein thrombus, occlusive on Left. CT face shows pansinusitis and mastoiditis. ENT has seen for persistent angioedema and tongue swelling official consult pending 09/17: Sitting up in stretcher chair today, tracking intermittently follows commands on LUE (gives thumbs up). Fever trending down. Angio edema improving. Chest x-ray shows persistent left lower lobe consolidation 09/18: no changes. cpap at night, trach collar during the day. blood glucoses > 300. Objective Vital Signs Date Time Temp Pulse Resp B/P (MAP) Pulse Ox O2 Delivery O2 Flow Rate FiO2 09/18/17 10:00 80 09/18/17 09:05 15 09/18/17 08:25 35 T-piece 6.00 09/18/17 08:00 35 09/18/17 08:00 99.1 171/93 (119) Intake and Output 09/18/17 09/18/17 09/19/17 08:00 16:00 00:00 Intake Total 1317 ml Output Total 1150 ml Balance 167 ml Result Diagram: 09/18/17 0346 09/18/17 0346 Objective Remarks Gen: Middle-aged male, Sitting up in stretcher chair, encephalopathic Head: Atraumatic. Conjunctivae clear. ENT: Tongue swollen/angioedema with laceration from bite, stable Neck: Supple, trach site clean, dry. Lungs: On TP. equal chest rise. Few rhonchi and crackles bilaterally Heart: RR. Intermittently hypertensive. Abdomen: Mildly distended. PEG site clean. Extremities: Warm, well perfused. Neuro: Opens eyes spontaneously today, following commands LUE by giving thumbs up. w/d to pain left UE and bilateral LE. pupils equal, round A/P Problem List: (1) Intracranial hemorrhage ICD Code: I62.9 - Nontraumatic intracranial hemorrhage, unspecified Status: Acute (2) Hemorrhagic stroke ICD Code: I61.9 - Nontraumatic intracerebral hemorrhage, unspecified Status: Acute (3) Hypertensive emergency ICD Code: I10 - Hypertensive emergency Status: Acute Assessment and Plan Assessment: 46yM with left thalamic hypertensive hemorrhagic IPH, ICH score 2. slowly improving neurologically. Needs placement. Fever down trending. Angioedema slowly improving. Active Problems: Acute encephalopathy - resolving. Left Thalamic Hemorrhage, with IV extension Intracerebral Hemorrhage, ICH score 2 Respiratory failure s/p trach Healthcare associated pneumonia - resolved. Sepsis - resolved. Pansinusitis, Mastoiditis Bilateral upper extremity superficial thrombophlebitis Possible NMS Fever central vs infectious Hypertensive Emergency- resolved. Agitated Delirium - resolved. 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 Hyperglycemia Hypertension Hypernatremia Hypoactive delirium - resolving. Plan: NEURO: - Seroquel and Haldol discontinued due to possible NMS - oxy to 5mg po q6h prn. - propranolol to 40mg po q6h - continue clonidine 0.3 mg tid - Repeat CT of the head showed improving bleed RESP: - TP as tolerated - CT of the chest 09/13/17 -LLL infiltrate - Broad-spectrum antibiotics as below (Zosyn and Vanc-DC vanc) - DuoNeb every 6 hours scheduled and when necessary, ventilator bundle - CT face shows pansinusitis and mastoiditis - ENT consulted for persistent angioedema and sinusitis-appreciate input - Taper and DC Decadron and Benadryl over three days CVS: - Intermittent hypertension now well controlled - Nicardipine to keep systolic blood pressure less than 150, now off, will remove from MAR - Continue clonidine, amlodipine and propranolol GI: - Status post PEG tube continue tube feeds - Having bowel movements - increased Free water 300mL per tube q6h - Pepcid per tube /RENAL: - continue Lambert catheter given prior urinary obstruction and resolving rafaela - Nephrology following, creatinine stable ID - New sepsis with high white count and high fever, most likely secondary to pneumonia - CT maxillofacial shows pansinusitis and mastoiditis, also upper extremity superficial thrombophlebitis on both contributing to fever - ID consult appreciated - ENT consulted for persistent angioedema - Restarted Decadron and Benadryl, continue Flonase - On zosyn. plan for 7 days total (09-13 to anticipated 09/19 stop date). - Follow-up on blood urine and sputum culture-Klebsiella in sputum HEME: - Leukocytosis secondary to probable sepsis - improving. MSK: - OOB to stretcher chair daily - PT/OT following ENDO: - Levemir to 18 units SQ q12h - change to high scale q4h ssi. PROPH: - sqh 5000 q12h (2 weeks post bleed, stable). Pepcid for GI prophylaxis Level 2 Fan Smith MD Sep 18, 2017 11:54
[2017-09-18] MEDS ORDERED: DEXTROSE 50% IN WATER 50 ML VIAL(D50) IV PUSH PRN (12:00)
--- NOTE | 2017-09-18 12:56 | HHI.NPPN ---
Subjective Renal Failure: Acute Additional Remarks Continues to be febrile. Off sedation. On trach O2. Non oliguric. Review of Systems General General Remarks unable to obtain Objective Data Data 09/18/17 09/19/17 19:00 07:00 Intake Total 600 ml Balance 600 ml Other 600 ml Vital Signs Date Time Temp Pulse Resp B/P (MAP) Pulse Ox O2 Delivery O2 Flow Rate FiO2 09/18/17 12:00 78 09/18/17 12:00 99.5 75 15 148/84 (105) 99 09/18/17 12:00 35 09/18/17 10:00 80 09/18/17 09:05 15 09/18/17 08:25 35 T-piece 6.00 09/18/17 08:00 35 09/18/17 08:00 99.1 69 20 171/93 (119) 100 09/18/17 08:00 69 09/18/17 07:44 100 35 09/18/17 07:00 100 T-Piece 35 09/18/17 06:00 54 09/18/17 04:58 100 35 09/18/17 04:00 58 09/18/17 04:00 35 09/18/17 04:00 99.0 58 14 164/92 (116) 100 09/18/17 02:00 60 09/18/17 00:43 100 35 09/18/17 00:00 60 09/18/17 00:00 98.6 60 15 153/83 (106) 100 09/18/17 00:00 35 09/17/17 22:00 65 09/17/17 21:00 35 09/17/17 20:51 100 35 09/17/17 20:00 98.9 70 18 150/88 (108) 100 09/17/17 20:00 88 09/17/17 20:00 35 09/17/17 19:00 100 T-Piece 35 09/17/17 18:00 60 09/17/17 16:00 98.8 80 15 141/82 (101) 100 09/17/17 16:00 78 09/17/17 16:00 35 09/17/17 14:00 72 -: 09/18/17 0346 09/18/17 0346 Tubes & Lines: Coleman Tubes & Lines Comment PEG, trach Drip Comment fentanyl, propofol Physical Exam General Appearance: No Acute Distress Neck Neck Exam: Neck Supple Pulmonary Resp Exam: Clear Bilaterally, Breath Sounds Equal Cardiology CV Exam: Regular, Normal Sinus Rhythm Gastrointestinal/Abdomen GI Exam: Soft, Non-Tender, Bowel Sounds Present, Positive Bowel Movement, Distended Genitourinary Exam: Clear Urine Musculoskeletal MS Exam: Joints Intact, Normal Tone, Unable to Ambulate Extremeties Extremities Exam: Moderate Edema Neurologic Neuro Exam: Unresponsive, Sedated Assessment/Plan Discussed Condition With: Relative Assessment Summary: Hypertension Electrolyte Assessment: Hypokalemia Problem List: (1) Acute kidney injury ICD Codes: N17.9 - Acute kidney failure, unspecified Status: Acute Plan: Baseline creatinine around 2. current cr 2.4 He most likely has underlying CKD. RAFAELA most likely due to renal hypoperfusion resulting from normalization of BP. Non oliguric, creatinine is slightly higher today. Monitor. water increased 300 cc q 4 as Na 151 (2) Hemorrhagic stroke ICD Codes: I61.9 - Nontraumatic intracerebral hemorrhage, unspecified Status: Acute Plan: Neurosurgery has followed, serial imaging reviewed. Non surgical management at this time. S/P PEG and tracheostomy Palliative is following, meaningful recovery is questionable. (3) Hypertension ICD Codes: I10 - Hypertension Status: Chronic Plan: BP improved. Continue oral medications. Monitor and titrate to effect. (4) Sepsis ICD Codes: A41.9 - Sepsis, unspecified organism Status: Resolved Plan: Febrile. On Vancomycin and Zosyn. Sputum culture from 09/12 grew Klebsiella. Timoteo Kuo MD Sep 18, 2017 12:56
--- NOTE | 2017-09-18 13:03 | EKG ---
Date Performed: 09/17/2017 Time Performed: 18:54:48 PTAGE: 46 years EKG: Sinus bradycardia. Inferior/lateral T wave changes Borderline ECG Compared to PREVIOUS TRACING , QRS voltage is somewhat less promient, T-wave changes are about the sa me. PREVIOUS TRACIN08/29/2017 00.30 DOCTOR: Arcenio Segundo Interpretating Date/Time 09/18/2017 13:02:25
[2017-09-18] MEDS: hydrALAZINE HCL 50 MG TAB PO SCH ×2 (14:17→20:08)
[2017-09-18] MEDS ORDERED: oxyCODONE HCL ORAL CONC 5 MG/0.25 ML SYRINGE PO PRN (15:00)
[2017-09-18] MEDS: ATORVASTATIN 40 MG TAB PO SCH (20:08)
[2017-09-18] MEDS ORDERED: INSULIN DETEMIR 100 UNITS/ML VIAL SQ SCH (22:00)
[2017-09-18] MEDS: LABETALOL HCL 100 MG/20 ML VIAL IV PUSH PRN ×2 (22:13→23:55)
[2017-09-18] MEDS: ACETAMINOPHEN 325 MG TAB PO PRN (22:55)
[2017-09-19] VITALS (14 sets, daily range): BP systolic 143–176; BP diastolic 73–99; PULSE 65–83; RESP 12–23; TEMP 98–99.2; O2SAT 97–100
[2017-09-19] MEDS: FREE WATER G-TUBE SCH ×6 (00:23→20:00)
[2017-09-19] MEDS: INSULIN NovoLIN REGULAR SUPPLEMENTAL SCALE SQ SCH ×6 (00:24→20:28)
[2017-09-19] MEDS: LABETALOL HCL 100 MG/20 ML VIAL IV PUSH PRN (02:16)
[2017-09-19] MEDS: PIPERACIL-TAZO 2.25 GM PREMIX 50 ML IV SCH ×4 (03:18→20:26)
[2017-09-19] MEDS: hydrALAZINE HCL 20 MG/ML VIAL IV PUSH PRN ×2 (03:18→09:08)
[2017-09-19] MEDS: RESP: ALBUTEROL 2.5 MG/IPRATROPIUM 0.5 MG NEB (SCH) INH ×4 (03:35→22:26)
[2017-09-19] MEDS: CHLORHEXIDINE GLUCONATE 2 % 1 PACK (2 CLOTHS) TOP SCH (04:00)
[2017-09-19] MEDS: cloNIDine HCL 0.3 MG TAB PO SCH ×3 (05:12→20:27)
[2017-09-19] MEDS: PROPRANOLOL HCL 40 MG TAB PO SCH ×3 (05:12→17:33)
[2017-09-19] MEDS: hydrALAZINE HCL 50 MG TAB PO SCH (05:12)
[2017-09-19] MEDS: LABETALOL HCL 300 MG TAB PEG SCH ×3 (05:13→22:07)
[2017-09-19] MEDS: CHLORHEXIDINE 0.12% (ORAL KIT) 15 ML CUP MT SCH ×2 (07:41→20:00)
[2017-09-19] MEDS: POLYETHYLENE GLYCOL 17 GM PKG PO SCH ×2 (08:07→20:21)
[2017-09-19] MEDS: DOCUSATE SODIUM 50 MG/SENNA 8.6 MG TAB PO SCH ×2 (08:07→20:27)
[2017-09-19] MEDS: FLUTICASONE PROPIONATE 50 MCG/ACT 16 GM NASAL SPRAY EACH NARE SCH (08:07)
[2017-09-19] MEDS: FAMOTIDINE 20 MG TAB NG SCH ×2 (08:08→20:27)
[2017-09-19] MEDS: DEXAMETHASONE SOD PHOS 4 MG/ML VIAL IV PUSH SCH ×2 (08:09→20:26)
[2017-09-19] MEDS: HEPARIN SODIUM - SQ 10,000 UNITS/ML VIAL SQ SCH ×2 (08:09→20:27)
--- NOTE | 2017-09-19 08:50 | HHI.CCPN ---
Subjective Remarks/Hospital Course Hospital Course: 46 y/o man with longstanding hypertension and previous CVA presents obtunded with new neurological symptoms noticed prior to arrival. Timeline unclear. Required intubation in ED for airway protection. CT head shows left thalamic bleed and shift away from bleed. Toxicology screen pending. Subjective: 08/30: encephalopathy persists. bp under better control, still on cardene. on sedation vacation, moves left side spontaneously but nothing on right. 08/31: overnight, severely agitated, requiring high dose sedation. also, lambert obstructed, new lambert placed with improvement in obstruction. this morning, RAFAELA with Cr up to 3. urine Na < 10, suggestive of pre-renal etiology. continued ivf. high peak pressures on vent. suction lavage with thick tenacious secretions. bronch with left lobe mucous plugging. bronchospasm a significant problem requiring iv magnesium and duonebs. finally attempted small paralytic dose with improvement in abdominal breathing and fighting ventilator. 09/01: No improvement in neuro exam, intermittent jerking movements noted by the RN no seizure. Creatinine for urine output adequate. I have consulted nephrology. We'll check CT of the head repeat EEG tomorrow a.m. 09/02: Clinically remains same. Did not tolerate sedation vacation, became hypertensive. CT head today showed slight improvement in L thalamic and IVH. Dr. Tinajero is the neurosurgeon, Dr. Jhaveri covering 09/03: Still unable to tolerate sedation vacation. Becomes very asynchronous with the vent with desaturations. Discussed with daughters about possible tracheostomy, they want to discuss with their mom, patient's ex -. Creatinine has worsened to 5.1 but no acute indication for dialysis. Will check ABG urine output 1.8 L in 24 hours 09/04: Remains intubated sedated synchronous with the vent. Noted to have tongue swelling/angioedema. Lisinopril discontinued. Placed on Decadron and IV Benadryl. Plan for tracheostomy and PEG tube placement next week 09/05: Patient remains intubated sedated critically ill. No change or improvement in neuro status. Lisinopril discontinued yesterday Decadron and Benadryl started tongue swelling is improved. Hyperglycemia secondary to Decadron, random blood sugar 360. Will wean to DC. Plan for trach and PEG this week, if family agreeable 09/06: Angioedema improving with Decadron and Benadryl. Still gets very agitated with sedation lightening. Needs improved blood pressure control increase clonidine to 0.3 every 8 hours. Plan for PEG today and Trach 09/08/1709/07: Stable overnight, except bleeding/oozing from the PEG site. We'll give single dose of nasal DDAVP. Creatinine slightly improved to 4.4, urine output 3.9 L in 24 hours. Plan for tracheostomy 09/08/17. 09/08: Tracheostomy completed. Tongue edema unchanged. 09/09: Tolerating spontaneous respiration on trach. Tongue edema persists. 09/10: Tolerating progression to trach collar today. 09/11: t-piece x 24h. still not waking up and encephalopathic. however, not agitated. still hypertensive, tachycardic. will need placement. Cr continues to improve. still hypernatremic. 09/12: delayed note entry. seen around 1300 on 09/12. wbc slightly up, fever curve uptrending, but has history of fevers likely from thalamic stroke. sputum , urine cultures sent at 0600. will await these results before deciding further courses of action. still on t-piece and no overall clinical change. 09/13: Overnight events noted, febrile to 105, with tremor, clonus, rigidity. given dantrolene for possible NMS by Dr. Asif and stopped Haldol and Seroquel. Provigil also stop due to possibility of serotonin syndrome. Patient was started on Zosyn and vancomycin and panculture sent, and placed on full vent support due to tachypnea. Temp came down to 101 (his baseline) after dantrolene one dose. On my exam at this time patient does not have a rigidity and blood temperatures 101. Nursing staff reports thick yellow secretions, chest x-ray shows possible left lower lobe infiltrate. WBC increased from 15.5 to 23.3. I will get the CT of the chest to evaluate for lung infiltrate and also CT abdomen and pelvis to rule out any intra-abdominal source of sepsis. Hold off on Ativan at this time. Patient is also getting a CT of the head 09/14: Patient continues to spike fever but at baseline. WBC count is trending down (23.3 to 18.4). Sputum culture growing Klebsiella. Opens eyes spontaneously today. Weakly give thumbs up to the RN (I did not witness it) 09/15: Continues to spike fever, appreciate ID consult. I have ordered venous ultrasound of all extremities. Also check CT of the sinuses rule out sinusitis and also evaluate for transient swelling pharyngeal/retropharyngeal abscesses. ENT consulted for persistent angioedema 09/16: On CPAP. Eyes open. Following commands on LUE. Bilateral cephalic vein thrombus, occlusive on Left. CT face shows pansinusitis and mastoiditis. ENT has seen for persistent angioedema and tongue swelling official consult pending 09/17: Sitting up in stretcher chair today, tracking intermittently follows commands on LUE (gives thumbs up). Fever trending down. Angio edema improving. Chest x-ray shows persistent left lower lobe consolidation 09/18: no changes. cpap at night, trach collar during the day. blood glucoses > 300. 09/19: been on t-piece x 24h. hypernatremia persists. glucose somewhat better, but remains consistently > 200 despite increased regimen. Objective Vital Signs Date Time Temp Pulse Resp B/P (MAP) Pulse Ox O2 Delivery O2 Flow Rate FiO2 09/19/17 08:00 72 09/19/17 07:00 99 T-Piece 09/19/17 04:00 98.1 14 160/80 (106) 09/18/17 21:14 5.00 Intake and Output 09/19/17 09/19/17 09/20/17 08:00 16:00 00:00 Intake Total 1296 ml Output Total 1600 ml Balance -304 ml Result Diagram: 09/18/17 0346 09/18/17 0346 Objective Remarks Gen: Middle-aged male, lying in bed, encephalopathic Head: Atraumatic. Conjunctivae clear. ENT: Tongue swollen/angioedema with laceration from bite, stable Neck: trach site clean, dry. Lungs: On TP. equal chest rise. Heart: RR. Intermittently hypertensive. Abdomen: Mildly distended. PEG site clean. Extremities: Warm, well perfused. Neuro: Opens eyes spontaneously today, following commands LUE by giving thumbs up. w/d to pain left UE and bilateral LE. pupils equal, round A/P Problem List: (1) Intracranial hemorrhage ICD Code: I62.9 - Nontraumatic intracranial hemorrhage, unspecified Status: Acute (2) Hemorrhagic stroke ICD Code: I61.9 - Nontraumatic intracerebral hemorrhage, unspecified Status: Acute (3) Hypertensive emergency ICD Code: I10 - Hypertensive emergency Status: Acute Assessment and Plan Assessment: 46yM with left thalamic hypertensive hemorrhagic IPH, ICH score 2. slowly improving neurologically. Needs placement. Fever down trending. Angioedema slowly improving. glycemic control remains a problem, as does hypernatremia. Active Problems: Acute encephalopathy - resolving. Left Thalamic Hemorrhage, with IV extension Intracerebral Hemorrhage, ICH score 2 Respiratory failure s/p trach - improving. Pansinusitis, Mastoiditis Bilateral upper extremity superficial thrombophlebitis 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 - slightly improved. Hyperglycemia - persistent. Hypertension Hypernatremia - persistent. Hypoactive delirium - resolving. Healthcare associated pneumonia with Klebsiella- resolved. Sepsis - resolved. Possible NMS - resolved. Fever central vs infectious - resolved. Hypertensive Emergency- resolved. Agitated Delirium - resolved. Plan: NEURO: - Seroquel and Haldol discontinued due to possible NMS - oxy 5mg po q6h prn. - propranolol 40mg po q6h - continue clonidine 0.3 mg tid - Repeat CT of the head showed improving bleed RESP: - TP as tolerated - CT of the chest 09/13/17 -LLL infiltrate - Broad-spectrum antibiotics as below - DuoNeb every 6 hours scheduled and when necessary, ventilator bundle - CT face shows pansinusitis and mastoiditis - ENT consulted for persistent angioedema and sinusitis-appreciate input CVS: - Intermittent hypertension now well controlled - Continue clonidine, amlodipine and propranolol - increase hydralazine to 100mg po q8hr. GI: - Status post PEG tube continue tube feeds - Having bowel movements - increased Free water 300mL per tube q4h add free water d5w @ 42 mL/hr. f/u daily sodium levels. - Pepcid per tube /RENAL: - continue Lambert catheter given prior urinary obstruction and resolving rafaela - Nephrology following, creatinine stable ID - New sepsis with high white count and high fever, most likely secondary to pneumonia - CT maxillofacial shows pansinusitis and mastoiditis, also upper extremity superficial thrombophlebitis on both contributing to fever - ID consult appreciated - ENT consulted for persistent angioedema - Restarted Decadron and Benadryl, continue Flonase - On zosyn. plan for 7 days total (09-13 to anticipated 09/19 stop date, will stop after today and monitor off abx clinically). - Klebsiella pneumonia HEME: - Leukocytosis secondary to probable sepsis - improving. MSK: - OOB to stretcher chair daily - PT/OT following ENDO: - increase Levemir again to 20 units SQ q12h - continue high scale q4h ssi. PROPH: - sqh 5000 q12h (2 weeks post bleed, stable). Pepcid for GI prophylaxis Level 2 Fan Smith MD Sep 19, 2017 08:50
[2017-09-19] MEDS: INSULIN DETEMIR 100 UNITS/ML VIAL SQ SCH ×2 (09:07→22:07)
[2017-09-19] MEDS: DEXTROSE 5% IN WATE 1000ML INJ 1,000 ML IV SCH (09:07)
--- NOTE | 2017-09-19 11:47 | HHI.NSPN ---
History Chief Complaint: Unable to obtain due to patient's clinical condition. Interval History 08/29: History of hypertension who was brought to the emergency room per E VAC after being found with altered mental status, right hemiparesis. He had reportedly been seen to be normal approximately 3-1/2 hours prior. Systolic blood pressure greater than 260/130 on initial evaluation. No seizure activity reported. Positive emesis. Per emergency room personnel the patient was responding verbally, difficulty raising his right arm upon initial arrival. He was intubated in the emergency room and a stat CT scan accomplished which has revealed a primarily left thalamic intracranial hemorrhage. 09/01/17: Patient remains intubated and sedated. 09/02: intubated and well sedated, not tolerating sedation vacation due to increase in blood pressure. 09/03/17: Remains on propofol and fentanyl IV for ventilator control. Positive agitation with decreased sedation 09/04/17: Pt sedated on Diprivan and Fentanyl drip. Not following commands. Pt on Cardene drip. Intubated. 09/05/17: Pt sedated on Diprivan and Fentanyl drip. Not following commands. Pt on Cardene drip. Intubated. Pupils 2mm bilaterally, NR bilaterally. 09/06/17: Remains intubated. PEG tube placed today. On Decadron and Benadryl for angioedema. Lisinopril discontinued 09/07. The patient is obtunded but is sedated with propofol. Nursing reports that the patient does have bleeding secondary to his PEG tube being placed yesterday. The family reports that the plan is to do a tracheostomy tomorrow. Nursing does say the patient does withdraw to stimulation, has a cough and gag reflex but his pupils are nonreactive. 09/10: The patient continues to be obtunded although he has sedation infusing at a low dose. He is trached and tolerating a CPAP trial. 09/13: Obtunded versus lethargic. He is not on any sedation. He is trached and mechanically ventilated. He went for a CT brain this morning. Nursing reports that the patient does withdraw to noxious stimulation and that the pupils are sluggish. 09/14: The patient has his eyes open when seen. He continues to be trached and mechanically ventilated. Nursing this morning reports that the patient gave a thumbs up on the left hand to command for him. 09/15: Pt off sedative drips. Pupils 2mm bilaterally slight reaction bilaterally. Not following commands. Not opening eyes. 09/16: When seen this morning the patient appears lethargic. He is trached and on T-piece. Nursing reports that the patient was more alert and did give a thumbs up to command this morning prior to receiving diphenhydramine. He also reported no movement to the right side. 09/17: No acute events overnight. Patient up in chair 09/18: No acute events overnight. Patient remains hypertensive. He is in bed with at his side. 09/19: Persistent hypertension overnight. Exam Results Vital Signs Date Time Temp Pulse Resp B/P (MAP) Pulse Ox O2 Delivery O2 Flow Rate FiO2 09/19/17 10:00 82 09/19/17 08:36 100 5.00 28 09/19/17 08:00 98.7 23 176/99 (124) 09/19/17 07:00 T-Piece Intake and Output 09/19/17 09/19/17 09/20/17 08:00 16:00 00:00 Intake Total 1296 ml Output Total 1600 ml Balance -304 ml Physical Examination GEN: Patient awake and tracks spontaneously HEENT: Normocephalic, atraumatic. Tongue protrudes out of mouth and is edematous. Trached with trach collar in place CV: Regular rate and rhythm PULM: Diminished breath sounds at the bases GI: soft, nondistended, normoactive bowel sounds : Coleman in place Extremities: Edema to both lower extremities. NEURO: GCS [id number] CNII: Pupils OS 3+/OD 3+. Unable to assess visual field CNIII/IV/: EOMI bilaterally CNVII: Face symmetric CNVIII: Unable to assess hearing Motor strength testing (L/R): Motor exam limited. Follows commands with left upper extremity. Shows thumb and 2 fingers on demand. No spontaneous movement of other extremities DTR: Patella 1+ No clonus Sensory: Unable to assess Gait: Unable to assess Lab, Micro, Other Results Allergies Coded Allergies Type Severity Reaction Last Updated Verified No Known Allergies 01/06/17 Yes Recent Impressions Chest X-Ray 09/17/17 0600 Signed Impressions: Service Date/Time: Sunday, September 17, 2017 04:32 - CONCLUSION: Left basilar airspace disease. Julian Loaiza MD 09/17/17 09/17/17 09/18/17 09/18/17 09/19/17 09/19/17 06:00 18:00 06:00 18:00 06:00 18:00 Intake Total 1653 ml 1432 ml 100 ml 2728 ml 100 ml 1196 ml Output Total 2000 ml 1075 ml 3275 ml 1600 ml Balance -347 ml 357 ml 100 ml -547 ml 100 ml -404 ml IV Total 544 ml 216 ml 100 ml 100 ml Tube Feeding 509 ml 616 ml 1328 ml 596 ml Other 600 ml 600 ml 1400 ml 600 ml Output Urine Total 2000 ml 1075 ml 3275 ml 1600 ml Tube Feeding Residual Discard 0 ml 0 ml # Bowel Movements 0 1 2 4 Laboratory Tests Test 09/17/17 05:30 09/18/17 03:46 White Blood Count 15.3 TH/MM3 11.9 TH/MM3 Red Blood Count 3.38 MIL/MM3 3.13 MIL/MM3 Hemoglobin 8.8 GM/DL 8.4 GM/DL Hematocrit 28.0 % 26.6 % Mean Corpuscular Volume 83.0 FL 84.8 FL Mean Corpuscular Hemoglobin 26.1 PG 26.7 PG Mean Corpuscular Hemoglobin Concent 31.4 % 31.5 % Red Cell Distribution Width 15.0 % 15.2 % Platelet Count 436 TH/MM3 386 TH/MM3 Mean Platelet Volume 10.4 FL 10.6 FL Neutrophils (%) (Auto) 88.8 % 88.1 % Lymphocytes (%) (Auto) 4.6 % 5.2 % Monocytes (%) (Auto) 6.1 % 6.1 % Eosinophils (%) (Auto) 0.1 % 0.1 % Basophils (%) (Auto) 0.4 % 0.5 % Neutrophils # (Auto) 13.6 TH/MM3 10.5 TH/MM3 Lymphocytes # (Auto) 0.7 TH/MM3 0.6 TH/MM3 Monocytes # (Auto) 0.9 TH/MM3 0.7 TH/MM3 Eosinophils # (Auto) 0.0 TH/MM3 0.0 TH/MM3 Basophils # (Auto) 0.1 TH/MM3 0.1 TH/MM3 CBC Comment AUTO DIFF AUTO DIFF Differential Total Cells Counted 100 100 Neutrophils % (Manual) 81 % 84 % Band Neutrophils % 3 % 4 % Lymphocytes % 7 % 7 % Monocytes % 6 % 3 % Neutrophils # (Manual) 13.3 TH/MM3 10.7 TH/MM3 Myelocytes 3 % 2 % Differential Comment FINAL DIFF MANUAL FINAL DIFF MANUAL Platelet Estimate NORMAL NORMAL Platelet Morphology Comment NORMAL NORMAL Red Cell Morphology Comment NORMAL Blood Urea Nitrogen 53 MG/DL 59 MG/DL Creatinine 2.32 MG/DL 2.48 MG/DL Random Glucose 293 MG/DL 343 MG/DL Total Protein 6.5 GM/DL 6.3 GM/DL Albumin 1.7 GM/DL 1.9 GM/DL Calcium Level 8.4 MG/DL 8.5 MG/DL Alkaline Phosphatase 86 U/L 91 U/L Aspartate Amino Transf (AST/SGOT) 83 U/L 80 U/L Alanine Aminotransferase (ALT/SGPT) 109 U/L 130 U/L Total Bilirubin 0.3 MG/DL 0.3 MG/DL Sodium Level 149 MEQ/L 151 MEQ/L Potassium Level 3.6 MEQ/L 4.4 MEQ/L Chloride Level 113 MEQ/L 114 MEQ/L Carbon Dioxide Level 28.7 MEQ/L 29.7 MEQ/L Anion Gap 7 MEQ/L 7 MEQ/L Estimat Glomerular Filtration Rate 37 ML/MIN 34 ML/MIN Random Vancomycin Level 20.9 COMMENT Orders Procedure Category Date Status Time Activity Oob With PRINCE 09/16/17 In Process Assistance 12:22 Vancomycin Inj MED 09/16/17 Complete (Vancomycin Inj) 15:00 Random Vancomycin LAB 09/17/17 Complete 06:00 (Hub Use Only)Inp Phy CONS 09/16/17 Transmitted Cons/Ref Resp Trach Collar RSP 09/16/17 Complete Insulin Human Reg MED 09/16/17 Complete Supp Scale (Novolin R 18:00 Labetalol (Trandate) MED 09/17/17 In Process 14:00 Labetalol (Trandate) MED 09/17/17 Complete 04:15 Dexamethasone Inj MED 09/17/17 In Process (Decadron Inj) 21:00 Complete Blood Count LAB 09/18/17 Complete With Diff 06:00 Comprehensive LAB 09/18/17 Complete Metabolic Panel 06:00 Oxycodone Liq MED 09/17/17 Complete (Roxicodone Intensol 15:00 Albuterol-Ipratropium MED 09/17/17 In Process Neb (Duoneb Neb) 16:00 Propranolol (Inderal) MED 09/17/17 In Process 18:00 Insulin Detemir Inj MED 09/17/17 Complete (Levemir Inj) 22:00 Electrocardiogram CAV 09/17/17 Resulted Free Water (Free MED 09/18/17 In Process Water) 12:00 Insulin Detemir Inj MED 09/18/17 Complete (Levemir Inj) 22:00 Bedside Glucose PRINCE 09/18/17 In Process 11:51 Blood Glucose Goal PRINCE 09/18/17 In Process (Criteria) 11:51 Hypoglycemia 51 - 69 PRINCE 09/18/17 In Process Mg/Dl 11:51 Hypoglycemia 50 Mg/Dl PRINCE 09/18/17 In Process Or < 11:[address]: Other PRINCE 09/18/17 In Process 11:51 Dextrose 50% In Jc MED 09/18/17 In Process (Vial) Inj (D50w (Vi 12:00 Insulin Human Reg MED 09/18/17 In Process Supp Scale (Novolin R 12:00 Resp Request For RSP 09/18/17 Logged Service Oxycodone Liq MED 09/18/17 In Process (Roxicodone Intensol 15:00 Hydralazine MED 09/18/17 Complete (Apresoline) 14:00 Basic Metabolic Panel LAB 09/19/17 In Process (Bmp) 08:36 Basic Metabolic Panel LAB 09/20/17 Verified ([facility] [place]) 05:00 Basic Metabolic Panel LAB 09/21/17 Verified ([facility] [place]) 05:00 Basic Metabolic Panel LAB 09/22/17 Verified ([facility] [place]) 05:00 Insulin Detemir Inj MED 09/19/17 In Process (Levemir Inj) 10:00 Dextrose 5% In Wate MED 09/19/17 In Process 1000ml Inj (D5w 1000 08:45 Hydralazine MED 09/19/17 In Process (Apresoline) 14:00 Vital Signs Date Time Temp Pulse Resp B/P (MAP) Pulse Ox O2 Delivery O2 Flow Rate FiO2 09/19/17 10:00 82 09/19/17 08:36 100 5.00 28 09/19/17 08:00 98.7 78 23 176/99 (124) 100 09/19/17 08:00 72 09/19/17 07:00 99 T-Piece 09/19/17 06:00 79 09/19/17 04:00 83 09/19/17 04:00 98.1 83 14 160/80 (106) 100 09/19/17 02:00 70 09/19/17 00:00 35 09/19/17 00:00 98.0 65 14 151/85 (107) 100 09/19/17 00:00 70 09/18/17 22:00 68 09/18/17 21:14 99 T-piece 5.00 28 09/18/17 20:00 99.9 71 12 164/93 (116) 98 09/18/17 20:00 35 09/18/17 20:00 71 09/18/17 19:00 Room Air 09/18/17 18:40 97 T-piece 5.00 28 09/18/17 18:39 28 09/18/17 18:00 70 09/18/17 16:00 68 09/18/17 16:00 99.7 68 17 147/79 (101) 100 09/18/17 16:00 35 09/18/17 14:00 76 09/18/17 12:00 78 09/18/17 12:00 99.5 75 15 148/84 (105) 99 09/18/17 12:00 35 09/18/17 10:00 80 09/18/17 09:05 15 09/18/17 08:25 35 T-piece 6.00 09/18/17 08:00 35 09/18/17 08:00 99.1 69 20 171/93 (119) 100 09/18/17 08:00 69 09/18/17 07:44 100 35 09/18/17 07:00 100 T-Piece 35 09/18/17 06:00 54 09/18/17 04:58 100 35 09/18/17 04:00 58 09/18/17 04:00 35 09/18/17 04:00 99.0 58 14 164/92 (116) 100 09/18/17 02:00 60 09/18/17 00:43 100 35 09/18/17 00:00 60 09/18/17 00:00 98.6 60 15 153/83 (106) 100 12/9/17 00:00 35 09/17/17 22:00 65 09/17/17 21:00 35 09/17/17 20:51 100 35 09/17/17 20:00 98.9 70 18 150/88 (108) 100 09/17/17 20:00 88 09/17/17 20:00 35 09/17/17 19:00 100 T-Piece 35 09/17/17 18:00 60 09/17/17 16:00 98.8 80 15 141/82 (101) 100 09/17/17 16:00 78 09/17/17 16:00 35 09/17/17 14:00 72 09/17/17 12:00 78 09/17/17 12:00 35 09/17/17 12:00 99.0 76 16 131/79 (96) 99 09/17/17 10:00 69 09/17/17 08:00 98.4 75 13 143/71 (95) 99 09/17/17 08:00 75 09/17/17 08:00 35 09/17/17 07:56 100 T-piece 35 09/17/17 07:45 100 35 09/17/17 07:00 100 Mechanical Ventilator 35 Trach Collar 09/17/17 06:00 70 09/17/17 04:57 80 159/67 09/17/17 04:00 35 09/17/17 04:00 80 09/17/17 04:00 99.5 80 14 159/70 (99) 99 09/17/17 03:43 99 35 09/17/17 02:37 81 189/90 09/17/17 02:00 80 09/17/17 00:20 99 35 09/17/17 00:00 35 09/17/17 00:00 90 09/17/17 00:00 99.3 90 15 173/80 (111) 99 09/16/17 23:16 81 196/93 09/16/17 22:00 82 09/16/17 20:29 100 35 09/16/17 20:15 35 09/16/17 20:00 99.3 71 16 175/100 (125) 100 09/16/17 20:00 100 T-Piece 35 09/16/17 20:00 77 09/16/17 18:00 75 09/16/17 16:00 99.3 79 19 186/96 (126) 95 09/16/17 16:00 78 09/16/17 15:01 99 T-piece 35 09/16/17 14:00 81 09/16/17 12:00 99.1 86 19 156/70 (98) 95 09/16/17 12:00 87 Medical Decision Making Impression and Plan Mr Matos has a large thalamic intracerebral hemorrhage with intraventricular extension. Neuro: Improving neurologic status with intermittently following commands. Recent head CT show resolution of hemorrhage. 09/19 neurologic exam stable. Patient intermittently following commands Seizure prophylaxis: Not required. Hypertension: This is likely the underlying cause of the hemorrhage. Blood pressure now controlled on amlodipine, propranolol, and clonidine 09/18 Labile hypertension 09/19 persistent hypertension. Recommend aggressive management in order to prevent subsequent hypertensive bleeds Pulm: Left lower lobe pneumonia on Zosyn. Improving pulmonary function on trach collar 09/18 Stable 09/19 Good O2 saturation GI: Status post PEG tube placement. PPI prophylaxis. : Resolving RAFAELA Continue free water flushes and Coleman catheter for monitoring F/E/N: Malnutrition, now at goal with tube feeds ID: Persistent leukocytosis, but improving over last 4 days. Sputum culture showed Klebsiella. Continue Zosyn 09/19 Afebrile on Zosyn for presumed pneumonia. DVT prophylaxis: SCD, Heparin Clint Freitas MD Sep 19, 2017 11:47
[2017-09-19 13:16] LABS: BICARBONATE 30.4 MEQ/L (21.0-32.0); CALCIUM 8.6 MG/DL (8.5-10.1); CREATININE 2.12 MG/DL (0.60-1.30)
--- NOTE | 2017-09-19 13:30 | HHI.NPPN ---
Subjective Renal Failure: Acute Additional Remarks Continues to be febrile. Off sedation. On trach O2. Non oliguric. Review of Systems General General Remarks unable to obtain Objective Data Data Vital Signs Date Time Temp Pulse Resp B/P (MAP) Pulse Ox O2 Delivery O2 Flow Rate FiO2 09/19/17 12:00 99.2 80 13 150/73 (98) 100 09/19/17 12:00 80 09/19/17 10:00 82 09/19/17 08:36 100 5.00 28 09/19/17 08:00 98.7 78 23 176/99 (124) 100 09/19/17 08:00 72 09/19/17 07:00 99 T-Piece 09/19/17 06:00 79 09/19/17 04:00 83 09/19/17 04:00 98.1 83 14 160/80 (106) 100 09/19/17 02:00 70 09/19/17 00:00 35 09/19/17 00:00 98.0 65 14 151/85 (107) 100 09/19/17 00:00 70 09/18/17 22:00 68 09/18/17 21:14 99 T-piece 5.00 28 09/18/17 20:00 99.9 71 12 164/93 (116) 98 09/18/17 20:00 35 09/18/17 20:00 71 09/18/17 19:00 Room Air 09/18/17 18:40 97 T-piece 5.00 28 09/18/17 18:39 28 09/18/17 18:00 70 09/18/17 16:00 68 09/18/17 16:00 99.7 68 17 147/79 (101) 100 09/18/17 16:00 35 09/18/17 14:00 76 -: 09/18/17 0346 09/19/17 1153 Tubes & Lines: Coleman Tubes & Lines Comment PEG, trach Drip Comment fentanyl, propofol Physical Exam General Appearance: No Acute Distress Neck Neck Exam: Neck Supple Pulmonary Resp Exam: Clear Bilaterally, Breath Sounds Equal Cardiology CV Exam: Regular, Normal Sinus Rhythm Gastrointestinal/Abdomen GI Exam: Soft, Non-Tender, Bowel Sounds Present, Positive Bowel Movement, Distended Genitourinary Exam: Clear Urine Musculoskeletal MS Exam: Joints Intact, Normal Tone, Unable to Ambulate Extremeties Extremities Exam: Moderate Edema Neurologic Neuro Exam: Unresponsive, Sedated Assessment/Plan Discussed Condition With: Relative Assessment Summary: Hypertension Electrolyte Assessment: Hypokalemia Problem List: (1) Acute kidney injury ICD Codes: N17.9 - Acute kidney failure, unspecified Status: Acute Plan: Baseline creatinine around 2. current cr 2.12 He most likely has underlying CKD. RAFAELA most likely due to renal hypoperfusion resulting from normalization of BP. Non oliguric, creatinine is better Monitor. water increased 300 cc q 4 as Na 150 (2) Hemorrhagic stroke ICD Codes: I61.9 - Nontraumatic intracerebral hemorrhage, unspecified Status: Acute Plan: Neurosurgery has followed, serial imaging reviewed. Non surgical management at this time. S/P PEG and tracheostomy Palliative is following, meaningful recovery is questionable. (3) Hypertension ICD Codes: I10 - Hypertension Status: Chronic Plan: BP improved. Continue oral medications. Monitor and titrate to effect. (4) Sepsis ICD Codes: A41.9 - Sepsis, unspecified organism Status: Resolved Plan: Febrile. On Vancomycin and Zosyn. Sputum culture from 09/12 grew Klebsiella. Timoteo Kuo MD Sep 19, 2017 13:30
[2017-09-19] MEDS: hydrALAZINE HCL 100 MG TAB PO SCH ×2 (13:56→22:07)
[2017-09-19] MEDS: ATORVASTATIN 40 MG TAB PO SCH (20:27)
[2017-09-20] VITALS (14 sets, daily range): BP systolic 121–151; BP diastolic 70–88; PULSE 67–79; RESP 12–14; TEMP 98.4–99.3; O2SAT 95–100
[2017-09-20] MEDS: PROPRANOLOL HCL 40 MG TAB PO SCH ×4 (00:12→18:07)
[2017-09-20] MEDS: INSULIN NovoLIN REGULAR SUPPLEMENTAL SCALE SQ SCH ×6 (00:12→21:59)
[2017-09-20] MEDS: CHLORHEXIDINE GLUCONATE 2 % 1 PACK (2 CLOTHS) TOP SCH (04:00)
[2017-09-20] MEDS: FREE WATER G-TUBE SCH ×6 (04:00→20:00)
[2017-09-20] MEDS: RESP: ALBUTEROL 2.5 MG/IPRATROPIUM 0.5 MG NEB (SCH) INH ×4 (04:07→20:31)
[2017-09-20] MEDS: cloNIDine HCL 0.3 MG TAB PO SCH ×3 (04:30→21:57)
[2017-09-20] MEDS: hydrALAZINE HCL 100 MG TAB PO SCH ×3 (05:15→21:57)
[2017-09-20] MEDS: LABETALOL HCL 300 MG TAB PEG SCH ×3 (05:15→22:37)
[2017-09-20 09:15] LABS: BICARBONATE 29.9 MEQ/L (21.0-32.0); CALCIUM 8.7 MG/DL (8.5-10.1); CREATININE 2.08 MG/DL (0.60-1.30)
[2017-09-20] MEDS: DEXTROSE 5% IN WATE 1000ML INJ 1,000 ML IV SCH (09:25)
[2017-09-20] MEDS: DEXAMETHASONE SOD PHOS 4 MG/ML VIAL IV PUSH SCH (09:26)
[2017-09-20] MEDS: POLYETHYLENE GLYCOL 17 GM PKG PO SCH ×3 (09:26→21:58)
[2017-09-20] MEDS: INSULIN DETEMIR 100 UNITS/ML VIAL SQ SCH ×2 (09:27→21:58)
[2017-09-20] MEDS: FAMOTIDINE 20 MG TAB NG SCH ×2 (09:27→21:57)
[2017-09-20] MEDS: DOCUSATE SODIUM 50 MG/SENNA 8.6 MG TAB PO SCH ×2 (09:27→21:56)
[2017-09-20] MEDS: HEPARIN SODIUM - SQ 10,000 UNITS/ML VIAL SQ SCH ×2 (09:27→22:00)
[2017-09-20] MEDS: CHLORHEXIDINE 0.12% (ORAL KIT) 15 ML CUP MT SCH ×2 (09:28→20:00)
[2017-09-20] MEDS: FLUTICASONE PROPIONATE 50 MCG/ACT 16 GM NASAL SPRAY EACH NARE SCH (09:28)
--- NOTE | 2017-09-20 09:49 | HHI.NSPN ---
History Chief Complaint: Unable to obtain due to patient's clinical condition. Interval History 46-year-old male with history of hypertension who was brought to the emergency room per E V[facility] after being found with altered mental status, right hemiparesis. He had reportedly been seen to be normal approximately 3-1/2 hours prior. Systolic blood pressure greater than 260/130 on initial evaluation. No seizure activity reported. Positive emesis. Per emergency room personnel the patient was responding verbally, difficulty raising his right arm upon initial arrival. He was intubated in the emergency room and a stat CT scan accomplished which has revealed a primarily left thalamic intracranial hemorrhage. 09/01/17: Patient remains intubated and sedated. 09/02/17: Follow-up CT scan head with mild initial decreased intraventricular hemorrhage, no new thalamic hemorrhage, mild decreased mass effect. 09/03/17: Remains on propofol and fentanyl IV for ventilator control. Positive agitation with decreased sedation 09/06/17: Remains intubated. PEG tube placed today. On Decadron and Benadryl for angioedema. Lisinopril discontinued 09/20/2017: Tracheostomy in place. Upper endoscopy performed 09/19/17 with findings of small amount of bleeding at the PEG site. Exam Results Vital Signs Date Time Temp Pulse Resp B/P (MAP) Pulse Ox O2 Delivery O2 Flow Rate FiO2 09/20/17 09:25 100 T-piece 5.00 28 09/20/17 06:00 67 09/20/17 04:00 99.3 12 151/86 (107) Intake and Output 09/20/17 09/20/17 09/21/17 08:00 16:00 00:00 Intake Total 1399 ml Output Total 1200 ml Balance 199 ml Physical Examination HEENT: Normocephalic, atraumatic. Left pupil 4 mm & right pupil 5 mm, slight reaction. Edematous tongue protruding from oral cavity. MUSCULOSKELETAL: No significant long bone or joint deformity NEUROLOGICAL: Relatively awake this morning. Eyes open, He seems to track somewhat to the left greater than right. Response to verbal stimulation. Persistent disconjugate extraocular movements Nonverbal, trached. Does not follow commands. He moves his left upper extremity occasional spontaneously with opening of his left hand. Otherwise no significant spontaneous movement or response to deep pain in the extremities. Lab, Micro, Other Results Laboratory Tests Test 09/19/17 11:53 09/20/17 07:08 Blood Urea Nitrogen 51 MG/DL 50 MG/DL Creatinine 2.12 MG/DL 2.08 MG/DL Random Glucose 177 MG/DL 262 MG/DL Sodium Level 150 MEQ/L 147 MEQ/L Chloride Level 114 MEQ/L 111 MEQ/L Estimat Glomerular Filtration Rate 41 ML/MIN 42 ML/MIN Medical Decision Making Impression and Plan Impression: Large thalamic intracranial hemorrhage. Gradually improving on most recent CT scan head Mental status gradually improving PEG tube in place Klebsiella pneumonia Hypertension Recommendations: Tracheostomy and PEG tube in place. CPAP at night-trach mask during the day Continuing therapy DVT prophylaxis-subcutaneous heparin Hypertension-remains on antihypertensive medications. Stable Klebsiella pneumonia-ID following. On Orville Levin MD Sep 20, 2017 09:49
--- NOTE | 2017-09-20 11:40 | HHI.CCPN ---
Subjective Remarks/Hospital Course Hospital Course: 46 y/o man with longstanding hypertension and previous CVA presents obtunded with new neurological symptoms noticed prior to arrival. Timeline unclear. Required intubation in ED for airway protection. CT head shows left thalamic bleed and shift away from bleed. Toxicology screen pending. Subjective: 08/30: encephalopathy persists. bp under better control, still on cardene. on sedation vacation, moves left side spontaneously but nothing on right. 08/31: overnight, severely agitated, requiring high dose sedation. also, lambert obstructed, new lambert placed with improvement in obstruction. this morning, RAFAELA with Cr up to 3. urine Na < 10, suggestive of pre-renal etiology. continued ivf. high peak pressures on vent. suction lavage with thick tenacious secretions. bronch with left lobe mucous plugging. bronchospasm a significant problem requiring iv magnesium and duonebs. finally attempted small paralytic dose with improvement in abdominal breathing and fighting ventilator. 09/01: No improvement in neuro exam, intermittent jerking movements noted by the RN no seizure. Creatinine for urine output adequate. I have consulted nephrology. We'll check CT of the head repeat EEG tomorrow a.m. 09/02: Clinically remains same. Did not tolerate sedation vacation, became hypertensive. CT head today showed slight improvement in L thalamic and IVH. Dr. Tinajero is the neurosurgeon, Dr. Jhaveri covering 09/03: Still unable to tolerate sedation vacation. Becomes very asynchronous with the vent with desaturations. Discussed with daughters about possible tracheostomy, they want to discuss with their mom, patient's ex -. Creatinine has worsened to 5.1 but no acute indication for dialysis. Will check ABG urine output 1.8 L in 24 hours 09/04: Remains intubated sedated synchronous with the vent. Noted to have tongue swelling/angioedema. Lisinopril discontinued. Placed on Decadron and IV Benadryl. Plan for tracheostomy and PEG tube placement next week 09/05: Patient remains intubated sedated critically ill. No change or improvement in neuro status. Lisinopril discontinued yesterday Decadron and Benadryl started tongue swelling is improved. Hyperglycemia secondary to Decadron, random blood sugar 360. Will wean to DC. Plan for trach and PEG this week, if family agreeable 09/06: Angioedema improving with Decadron and Benadryl. Still gets very agitated with sedation lightening. Needs improved blood pressure control increase clonidine to 0.3 every 8 hours. Plan for PEG today and Trach 09/08/1709/07: Stable overnight, except bleeding/oozing from the PEG site. We'll give single dose of nasal DDAVP. Creatinine slightly improved to 4.4, urine output 3.9 L in 24 hours. Plan for tracheostomy 09/08/17. 09/08: Tracheostomy completed. Tongue edema unchanged. 09/09: Tolerating spontaneous respiration on trach. Tongue edema persists. 09/10: Tolerating progression to trach collar today. 09/11: t-piece x 24h. still not waking up and encephalopathic. however, not agitated. still hypertensive, tachycardic. will need placement. Cr continues to improve. still hypernatremic. 09/12: delayed note entry. seen around 1300 on 09/12. wbc slightly up, fever curve uptrending, but has history of fevers likely from thalamic stroke. sputum , urine cultures sent at 0600. will await these results before deciding further courses of action. still on t-piece and no overall clinical change. 09/13: Overnight events noted, febrile to 105, with tremor, clonus, rigidity. given dantrolene for possible NMS by Dr. Asif and stopped Haldol and Seroquel. Provigil also stop due to possibility of serotonin syndrome. Patient was started on Zosyn and vancomycin and panculture sent, and placed on full vent support due to tachypnea. Temp came down to 101 (his baseline) after dantrolene one dose. On my exam at this time patient does not have a rigidity and blood temperatures 101. Nursing staff reports thick yellow secretions, chest x-ray shows possible left lower lobe infiltrate. WBC increased from 15.5 to 23.3. I will get the CT of the chest to evaluate for lung infiltrate and also CT abdomen and pelvis to rule out any intra-abdominal source of sepsis. Hold off on Ativan at this time. Patient is also getting a CT of the head 09/14: Patient continues to spike fever but at baseline. WBC count is trending down (23.3 to 18.4). Sputum culture growing Klebsiella. Opens eyes spontaneously today. Weakly give thumbs up to the RN (I did not witness it) 09/15: Continues to spike fever, appreciate ID consult. I have ordered venous ultrasound of all extremities. Also check CT of the sinuses rule out sinusitis and also evaluate for transient swelling pharyngeal/retropharyngeal abscesses. ENT consulted for persistent angioedema 09/16: On CPAP. Eyes open. Following commands on LUE. Bilateral cephalic vein thrombus, occlusive on Left. CT face shows pansinusitis and mastoiditis. ENT has seen for persistent angioedema and tongue swelling official consult pending 09/17: Sitting up in stretcher chair today, tracking intermittently follows commands on LUE (gives thumbs up). Fever trending down. Angio edema improving. Chest x-ray shows persistent left lower lobe consolidation 09/18: no changes. cpap at night, trach collar during the day. blood glucoses > 300. 09/19: been on t-piece x 24h. hypernatremia persists. glucose somewhat better, but remains consistently > 200 despite increased regimen. 09/20: Change D5W to 1/4 NS to correct hyperglycemia. Objective Vital Signs Date Time Temp Pulse Resp B/P (MAP) Pulse Ox O2 Delivery O2 Flow Rate FiO2 09/20/17 09:25 100 T-piece 5.00 28 09/20/17 06:00 67 09/20/17 04:00 99.3 12 151/86 (107) Intake and Output 09/20/17 09/20/17 09/21/17 08:00 16:00 00:00 Intake Total 1399 ml Output Total 1200 ml Balance 199 ml Result Diagram: 09/18/17 0346 09/20/17 0708 Objective Remarks Gen: Middle-aged male, lying in bed, encephalopathic Head: Atraumatic. Conjunctivae clear. ENT: Tongue swollen/angioedema with laceration from bite, stable Neck: trach site clean, dry. Lungs: On TP. equal chest rise. Heart: RR. Intermittently hypertensive. Abdomen: Mildly distended. PEG site clean. Extremities: Warm, well perfused. Neuro: Opens eyes spontaneously today, following commands LUE by giving thumbs up. w/d to pain left UE and bilateral LE. pupils equal, round A/P Problem List: (1) Intracranial hemorrhage ICD Code: I62.9 - Nontraumatic intracranial hemorrhage, unspecified Status: Acute (2) Hemorrhagic stroke ICD Code: I61.9 - Nontraumatic intracerebral hemorrhage, unspecified Status: Acute (3) Hypertensive emergency ICD Code: I10 - Hypertensive emergency Status: Acute Assessment and Plan Assessment: 46yM with left thalamic hypertensive hemorrhagic IPH, ICH score 2. slowly improving neurologically. Needs placement. Fever down trending. Angioedema slowly improving. glycemic control remains a problem, as does hypernatremia. Active Problems: Acute encephalopathy - resolving. Left Thalamic Hemorrhage, with IV extension Intracerebral Hemorrhage, ICH score 2 Respiratory failure s/p trach - improving. Pansinusitis, Mastoiditis Bilateral upper extremity superficial thrombophlebitis 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 - slightly improved. Hyperglycemia - persistent. Hypertension Hypernatremia - persistent. Hypoactive delirium - resolving. Healthcare associated pneumonia with Klebsiella- resolved. Sepsis - resolved. Possible NMS - resolved. Fever central vs infectious - resolved. Hypertensive Emergency- resolved. Agitated Delirium - resolved. Plan: NEURO: - Seroquel and Haldol discontinued due to possible NMS - oxy 5mg po q6h prn. - propranolol 40mg po q6h - continue clonidine 0.3 mg tid - Repeat CT of the head showed improving bleed RESP: - TP as tolerated - CT of the chest 09/13/17 -LLL infiltrate - Broad-spectrum antibiotics as below - DuoNeb every 6 hours scheduled and when necessary, ventilator bundle - CT face shows pansinusitis and mastoiditis - ENT consulted for persistent angioedema and sinusitis-appreciate input CVS: - Intermittent hypertension now well controlled - Continue clonidine, amlodipine and propranolol - increase hydralazine to 100mg po q8hr. GI: - Status post PEG tube continue tube feeds - Having bowel movements - increased Free water 300mL per tube q4h add free water 1/4 NS @ 42 mL/hr. f/u daily sodium levels. - Pepcid per tube /RENAL: - continue Lambert catheter given prior urinary obstruction and resolving rafaela - Nephrology following, creatinine stable ID - New sepsis with high white count and high fever, most likely secondary to pneumonia - CT maxillofacial shows pansinusitis and mastoiditis, also upper extremity superficial thrombophlebitis on both contributing to fever - ID consult appreciated - ENT consulted for persistent angioedema - Restarted Decadron and Benadryl, continue Flonase - On zosyn. plan for 7 days total (12-4 to anticipated 09/19 stop date, will stop after today and monitor off abx clinically). - Klebsiella pneumonia HEME: - Leukocytosis secondary to probable sepsis - improving. MSK: - OOB to stretcher chair daily - PT/OT following ENDO: - increase Levemir again to 20 units SQ q12h - continue high scale q4h ssi. PROPH: - sqh 5000 q12h (2 weeks post bleed, stable). Pepcid for GI prophylaxis Jack Farmer MD Sep 20, 2017 11:40
[2017-09-20] MEDS: SODIUM CHLORIDE 23.4% INJ 38.5 MEQ in WATER STERILE FOR INJ 1,000 ML IV SCH (12:44)
--- NOTE | 2017-09-20 13:50 | HHI.NPPN ---
Subjective Renal Failure: Acute Additional Remarks Continues to be febrile. Off sedation. On trach O2. Non oliguric. Review of Systems General General Remarks unable to obtain Objective Data Data 09/20/17 09/21/17 19:00 07:00 Intake Total 315 ml Balance 315 ml IV Total 315 ml Vital Signs Date Time Temp Pulse Resp B/P (MAP) Pulse Ox O2 Delivery O2 Flow Rate FiO2 09/20/17 12:00 98.7 67 14 146/82 (103) 95 09/20/17 12:00 67 09/20/17 10:00 68 09/20/17 09:25 100 T-piece 5.00 28 09/20/17 08:00 72 09/20/17 08:00 98.6 72 13 121/70 (87) 97 09/20/17 07:00 97 T-Piece 28 09/20/17 06:00 67 09/20/17 04:00 99.3 67 12 151/86 (107) 97 09/20/17 04:00 67 09/20/17 02:00 72 09/20/17 00:00 79 09/20/17 00:00 99.3 79 14 142/76 (98) 95 09/19/17 22:00 70 09/19/17 20:13 97 T-piece 28 09/19/17 20:00 68 09/19/17 20:00 98.9 68 12 161/90 (113) 97 09/19/17 20:00 97 T-Piece 28 09/19/17 18:00 69 09/19/17 16:00 99.0 72 16 143/82 (102) 99 09/19/17 16:00 72 09/19/17 14:00 76 -: 09/18/17 0346 09/20/17 0708 Tubes & Lines: Coleman Tubes & Lines Comment PEG, trach Drip Comment fentanyl, propofol Physical Exam General Appearance: No Acute Distress Neck Neck Exam: Neck Supple Pulmonary Resp Exam: Clear Bilaterally, Breath Sounds Equal Cardiology CV Exam: Regular, Normal Sinus Rhythm Gastrointestinal/Abdomen GI Exam: Soft, Non-Tender, Bowel Sounds Present, Positive Bowel Movement, Distended Genitourinary Exam: Clear Urine Musculoskeletal MS Exam: Joints Intact, Normal Tone, Unable to Ambulate Extremeties Extremities Exam: Moderate Edema Neurologic Neuro Exam: Unresponsive, Sedated Assessment/Plan Discussed Condition With: Relative Assessment Summary: Hypertension Electrolyte Assessment: Hypokalemia Problem List: (1) Acute kidney injury ICD Codes: N17.9 - Acute kidney failure, unspecified Status: Acute Plan: Baseline creatinine around 2. current cr 2 He most likely has underlying CKD. RAFAELA most likely due to renal hypoperfusion resulting from normalization of BP. Non oliguric, creatinine is better Monitor. water increased 300 cc q 4 as Na 147 Nephrology to follow as needed bases as CKD at baseline neurology injury with dependance for care (2) Hemorrhagic stroke ICD Codes: I61.9 - Nontraumatic intracerebral hemorrhage, unspecified Status: Acute Plan: Neurosurgery has followed, serial imaging reviewed. Non surgical management at this time. S/P PEG and tracheostomy Palliative is following, meaningful recovery is questionable. (3) Hypertension ICD Codes: I10 - Hypertension Status: Chronic Plan: BP improved. Continue oral medications. Monitor and titrate to effect. (4) Sepsis ICD Codes: A41.9 - Sepsis, unspecified organism Status: Resolved Plan: Febrile. On Vancomycin and Zosyn. Sputum culture from 09/12 grew Klebsiella. Timoteo Kuo MD Sep 20, 2017 13:49
--- NOTE | 2017-09-20 15:56 | HHI.IDPN ---
Note Infectious Disease Note Patient is awake and following commands on the left. No distress. Afebrile. Central nervous system bleed involving the right thalamus and extending into the lateral third ventricle. The patient was intubated after he arrived at the emergency department. PAST MEDICAL HISTORY 1. Hypertension. 2. History of CVA. ALLERGIES NO KNOWN DRUG ALLERGIES. ANTIBIOTICS None OBJECTIVE: Vital Signs Date Time Temp Pulse Resp B/P (MAP) Pulse Ox O2 Delivery O2 Flow Rate FiO2 09/20/17 12:00 98.7 67 14 146/82 (103) 95 09/20/17 12:00 67 09/20/17 10:00 68 09/20/17 09:25 100 T-piece 5.00 28 09/20/17 08:00 72 09/20/17 08:00 98.6 72 13 121/70 (87) 97 09/20/17 07:00 97 T-Piece 28 09/20/17 06:00 67 09/20/17 04:00 99.3 67 12 151/86 (107) 97 09/20/17 04:00 67 09/20/17 02:00 72 09/20/17 00:00 79 09/20/17 00:00 99.3 79 14 142/76 (98) 95 09/19/17 22:00 70 09/19/17 20:13 97 T-piece 28 09/19/17 20:00 68 09/19/17 20:00 98.9 68 12 161/90 (113) 97 09/19/17 20:00 97 T-Piece 28 09/19/17 18:00 69 09/19/17 16:00 99.0 72 16 143/82 (102) 99 09/19/17 16:00 72 Laboratory Tests Test 09/19/17 11:53 09/20/17 07:08 Blood Urea Nitrogen 51 MG/DL 50 MG/DL Creatinine 2.12 MG/DL 2.08 MG/DL Random Glucose 177 MG/DL 262 MG/DL Calcium Level 8.6 MG/DL 8.7 MG/DL Sodium Level 150 MEQ/L 147 MEQ/L Potassium Level 3.8 MEQ/L 4.1 MEQ/L Chloride Level 114 MEQ/L 111 MEQ/L Carbon Dioxide Level 30.4 MEQ/L 29.9 MEQ/L Anion Gap 6 MEQ/L 6 MEQ/L Estimat Glomerular Filtration Rate 41 ML/MIN 42 ML/MIN IMAGING: Chest X-Ray 09/17/17 0600 Signed Impressions: Service Date/Time: Sunday, September 17, 2017 04:32 - CONCLUSION: Left basilar airspace disease. Julian Loaiza MD Maxillofacial CT 09/16/17 0000 Signed Impressions: Service Date/Time: September 01:03 - CONCLUSION: 1. Evidence of acute pansinusitis. 2. Opacification of multiple bilateral mastoid air cells most characteristic of mastoiditis. 3. Mildly prominent cervical chain nodes which may be reactive. Angelo Conn MD Maxillofacial CT 09/16/17 0000 Signed Impressions: Service Date/Time: September 01:03 - CONCLUSION: 1. Evidence of acute pansinusitis. 2. Opacification of multiple bilateral mastoid air cells most characteristic of mastoiditis. 3. Mildly prominent cervical chain nodes which may be reactive. Angelo Conn MD Upper Extremity Ultrasound 09/15/17 0000 Signed Impressions: Service Date/Time: Friday, September 15, 2017 17:14 - CONCLUSION: Occlusive thrombus within the left cephalic vein and nonocclusive thrombus within the right cephalic vein. Ric Jack MD Lower Extremity Ultrasound 09/15/17 0000 Signed Impressions: Service Date/Time: Friday, September 15, 2017 16:58 - CONCLUSION: No evidence of DVT within the lower extremities. Ric Jack MD Chest X-Ray 09/14/17 0600 Signed Impressions: Service Date/Time: Thursday, September 14, 2017 03:56 - CONCLUSION: Stable appearance. Angelo Conn MD Head CT 09/13/17 0800 Signed Impressions: Service Date/Time: Wednesday, September 13, 2017 09:17 - CONCLUSION: 1. Resolving left basal ganglia hematoma Natan Lagos MD Chest CT 09/13/17 0000 Signed Impressions: Service Date/Time: Wednesday, September 13, 2017 09:28 - CONCLUSION: 1. Bibasilar and left lingular dependent atelectatic changes. Lungs are otherwise clear. 2. Tracheostomy tube with the tip probably positioned above the connie. 3. Compensated cardiomegaly. Reyes Guzman MD Abdomen/Pelvis CT 09/13/17 0000 Signed Impressions: Service Date/Time: Wednesday, September 13, 2017 09:28 - CONCLUSION: 1. There is some stranding in the retroperitoneal perivascular tissues around the distal aorta extending into the bifurcation with a regional borderline lymph nodes. Findings are characteristic of a nonspecific inflammatory process. Findings could represent early retroperitoneal fibrosis.. 2. Urinary bladder is decompressed with some mural thickening in pericystic inflammatory changes possibly representing a chronic cystitis. Nondependent air could be associated with a recent catheterization/instrumentation. 3. Small umbilical and right inguinal hernias only contain fat. 4. Bilateral dependent basilar and left lingular atelectatic changes. Heart size is borderline prominent. 5. Otherwise , bowel is intact without obstruction to explain abdominal distention Reyes Guzman MD Abdomen X-Ray 09/10/17 0600 Signed Impressions: Service Date/Time: Sunday, September 10, 2017 03:56 - CONCLUSION: No significant abnormality is identified. There is mild distention of the colon but there are no findings to suggest bowel obstruction or significant ileus. Ignacio Underwood MD Liver Ultrasound 09/07/17 0000 Signed Impressions: Service Date/Time: Thursday, September 07, 2017 12:37 - CONCLUSION: 1. Unremarkable sonographic appearance of the liver. No evidence for hepatic volume loss or intrahepatic ductal dilatation. 2. No sonographic evidence for cholelithiasis or acute cholecystitis. 3. Mild increased right renal echogenicity may reflect medical renal disease. 4. Small bilateral pleural effusions. 5. Pancreas and inferior pole of the right kidney are obscured by bowel gas and therefore not evaluated. Darrell Robles MD Renal Ultrasound 08/31/17 0000 Signed Impressions: Service Date/Time: Thursday, August 31, 2017 17:42 - CONCLUSION: 1. No evidence of hydronephrosis on either side. 2. Solitary linear echogenic focus in the upper pole parenchyma of the right kidney has similar features to prior examination in January 2017 and possibly represents a calcification. David Snell MD Neck CTA 08/28/177 Signed Impressions: Service Date/Time: Tuesday, August 29, 2017 00:13 - CONCLUSION: Negative carotid CTA. David Snell MD Head CTA 08/28/177 Signed Impressions: Service Date/Time: Tuesday, August 29, 2017 00:13 - CONCLUSION: 1. No evidence of vessel truncation or aneurysm. 2. No abnormal vessels in the region of the large left thalamic hemorrhage. David Snell MD PHYSICAL EXAMINATION GENERAL: Awake. No Distress. HEENT: No icterus. Oropharynx, the tongue swelling is decreased slightly. NECK: No adenopathy. Mild swelling. LUNGS: Decreased breath sounds.. HEART: Regular S1-S2 without murmurs. ABDOMEN: Bowel sounds present, soft. No tenderness. No masses palpable. EXTREMITIES: No clubbing or cyanosis. Trace edema of the hands. NEUROLOGIC: Unable to assess. PSYCHIATRIC: Unable to assess. IMPRESSION Persistent fever: Very likely due to intracranial bleed. Temp improved. Pneumonia due to Klebsiella. Leukocytosis. WBC is decreased. RECOMMENDATIONS Monitor temp without antibiotics. I will sign off now. Kaz Gregg MD Sep 20, 2017 15:56
--- NOTE | 2017-09-20 18:04 | HHI.HCPN ---
Reason for visit a. To assist with evaluation and management of symptoms including: Pain and dyspnea. b. To assist medical decision maker(s) with: better understanding of current medical conditions; weighing benefits/burdens of medical treatment options; making medical treatment decisions. . Subjective/Interval History Mr. Matos is a 46-year-old male with a medical history significant for TIA, hypertension and migraines. Patient presented to ED via EMS on 08/28/[address] as stroke alert. Head CT revealing acute hemorrhagic stroke in the right thalamus with extension of the lateral third ventricles with a shift onto the right side of 6 mm. patient was subsequently intubated and placed on mechanical ventilation. Palliative care was consulted for further clarifications of goals of care and emotional support. Patient seen and examined in ICU. Daughter asleep at bedside, did not awaken during my visit. Patient appears to be sleeping, did not arouse to voice or exam. Discussed with nurse and Dr. Pierre. Notes indicate patient has been off sedation. He is following some simple commands on left, opening eyes and tracking intermittently. On oxygen via t-piece to trach for the past 24-48 hours. Upper endoscopy performed 09/19/17 with findings of small amount of bleeding at the PEG site. Nephrology and neurosurgery continue to follow. Afebrile. Vital signs stable. ID has signed off, plan to monitor without antibiotics. Recent WBC 11.9 on 09/18/17. Blood cultures on 09/13/17 no growth in 5 days. No recent imaging. . Family/friend interactions Daughter asleep at bedside. Did not arouse during my visit. Per Dr. Pierre patient making some clinical improvements, did not see the need to wake family today. Will continue to follow. . Advance Directives Living Will: Never completed Health Care Surrogate: Never completed Durable Power of Rn Support Services: Never completed Advance Directive Specifics Health Care Surrogate(s): No advance directives completed as per patient's family. Patient is . As per [place] law, healthcare proxy decision making falls to the majority of patient's adult children for which he has 3 (4th child is 4 years old). Daughter Shannan, daughter Nichole and son Hadley Maddox wish to participate. . Significant change in goals: FULL CODE. Goals remain aggressive, patient making some neurologic improvements. . Objective Vital Signs Date Time Temp Pulse Resp B/P (MAP) Pulse Ox O2 Delivery O2 Flow Rate FiO2 09/20/17 12:00 98.7 67 14 146/82 (103) 95 09/20/17 12:00 67 09/20/17 10:00 68 09/20/17 09:25 100 T-piece 5.00 28 09/20/17 08:00 72 09/20/17 08:00 98.6 72 13 121/70 (87) 97 09/20/17 07:00 97 T-Piece 28 09/20/17 06:00 67 09/20/17 04:00 99.3 67 12 151/86 (107) 97 09/20/17 04:00 67 09/20/17 02:00 72 09/20/17 00:00 79 09/20/17 00:00 99.3 79 14 142/76 (98) 95 09/19/17 22:00 70 09/19/17 20:13 97 T-piece 28 09/19/17 20:00 68 09/19/17 20:00 98.9 68 12 161/90 (113) 97 09/19/17 20:00 97 T-Piece 28 09/19/17 18:00 69 Intake & Output 09/20/17 09/20/17 07:00 19:00 Intake Total 1449 ml 315 ml Output Total 1200 ml Balance 249 ml 315 ml IV Total 50 ml 315 ml Tube Feeding 499 ml Other 900 ml Output Urine Total 1200 ml # Bowel Movements 1 Physical Exam CONSTITUTIONAL/GENERAL: This is an obese patient resting in bed in no acute distress. TUBES/LINES/DRAINS: PEG tube, tracheostomy, SCDs, Coleman catheter, PIV's. SKIN: No jaundice, rashes, or lesions. No wounds seen anteriorly. Skin temperature appropriate. Not diaphoretic. HEAD: Atraumatic. Normocephalic. EYES: No scleral icterus. Bilateral injected conjunctiva. ENT: Hearing appears normal. Nose without bleeding or purulent drainage. Moist oral mucosa. Glossal edema. NECK: Trachea midline. Supple. CARDIOVASCULAR: Regular rate and rhythm without murmurs, gallops, or rubs. Peripheral pulses symmetric. RESPIRATORY/CHEST: Symmetric, clear breath sounds bilaterally. Trach, tolerating t-piece. GASTROINTESTINAL: Abdomen obese, large, round. Unable to appreciate hepatomegaly secondary to body habitus. Bowel sounds active. PEG tube in place. GENITOURINARY: Without palpable bladder distension. Coleman catheter in place. MUSCULOSKELETAL: Extremities without clubbing, cyanosis. No mottling or clubbing. Edema to all 4 extremities. NEUROLOGICAL: tracking with eyes. right-sided hemiparesis. Following commands with left upper extremity. PSYCHIATRIC: Appears calm. . Diagnostic Tests Laboratory Laboratory Tests Test 09/18/17 03:46 09/19/17 11:53 09/20/17 07:08 White Blood Count 11.9 TH/MM3 (4.0-11.0) Red Blood Count 3.13 MIL/MM3 (4.50-5.90) Hemoglobin 8.4 GM/DL (13.0-17.0) Hematocrit 26.6 % (39.0-51.0) Mean Corpuscular Volume 84.8 FL (80.0-100.0) Mean Corpuscular Hemoglobin 26.7 PG (27.0-34.0) Mean Corpuscular Hemoglobin Concent 31.5 % (32.0-36.0) Red Cell Distribution Width 15.2 % (11.6-17.2) Platelet Count 386 TH/MM3 (150-450) Mean Platelet Volume 10.6 FL (7.0-11.0) Neutrophils (%) (Auto) 88.1 % (16.0-70.0) Lymphocytes (%) (Auto) 5.2 % (9.0-44.0) Monocytes (%) (Auto) 6.1 % (0.0-8.0) Eosinophils (%) (Auto) 0.1 % (0.0-4.0) Basophils (%) (Auto) 0.5 % (0.0-2.0) Neutrophils # (Auto) 10.5 TH/MM3 (1.8-7.7) Lymphocytes # (Auto) 0.6 TH/MM3 (1.0-4.8) Monocytes # (Auto) 0.7 TH/MM3 (0-0.9) Eosinophils # (Auto) 0.0 TH/MM3 (0-0.4) Basophils # (Auto) 0.1 TH/MM3 (0-0.2) CBC Comment AUTO DIFF Differential Total Cells Counted 100 Neutrophils % (Manual) 84 % (16-70) Band Neutrophils % 4 % (0-6) Lymphocytes % 7 % (9-44) Monocytes % 3 % (0-8) Neutrophils # (Manual) 10.7 TH/MM3 (1.8-7.7) Myelocytes 2 % (0-0) Differential Comment FINAL DIFF MANUAL Platelet Estimate NORMAL (NORMAL) Platelet Morphology Comment NORMAL (NORMAL) Blood Urea Nitrogen 59 MG/DL (7-18) 51 MG/DL (7-18) 50 MG/DL (7-18) Creatinine 2.48 MG/DL (0.60-1.30) 2.12 MG/DL (0.60-1.30) 2.08 MG/DL (0.60-1.30) Random Glucose 343 MG/DL (74-106) 177 MG/DL (74-106) 262 MG/DL (74-106) Total Protein 6.3 GM/DL (6.4-8.2) Albumin 1.9 GM/DL (3.4-5.0) Calcium Level 8.5 MG/DL (8.5-10.1) 8.6 MG/DL (8.5-10.1) 8.7 MG/DL (8.5-10.1) Alkaline Phosphatase 91 U/L (45-117) Aspartate Amino Transf (AST/SGOT) 80 U/L (15-37) Alanine Aminotransferase (ALT/SGPT) 130 U/L (12-78) Total Bilirubin 0.3 MG/DL (0.2-1.0) Sodium Level 151 MEQ/L (136-145) 150 MEQ/L (136-145) 147 MEQ/L (136-145) Potassium Level 4.4 MEQ/L (3.5-5.1) 3.8 MEQ/L (3.5-5.1) 4.1 MEQ/L (3.5-5.1) Chloride Level 114 MEQ/L (98-107) 114 MEQ/L (98-107) 111 MEQ/L (98-107) Carbon Dioxide Level 29.7 MEQ/L (21.0-32.0) 30.4 MEQ/L (21.0-32.0) 29.9 MEQ/L (21.0-32.0) Anion Gap 7 MEQ/L (5-15) 6 MEQ/L (5-15) 6 MEQ/L (5-15) Estimat Glomerular Filtration Rate 34 ML/MIN (>89) 41 ML/MIN (>89) 42 ML/MIN (>89) Result Diagram: 09/18/17 0346 09/20/17 0708 Procedures * 08/28/17 -endotracheal intubation * 08/31/17 -therapeutic bronchoscopy * 09/06/17 -PEG tube placement * 09/08/17 -tracheostomy . Assessment and Plan Disease Oriented Problem List: (1) Hemorrhagic stroke (2) Intracranial hemorrhage (3) Hypertensive emergency (4) Acute kidney injury (5) Acute encephalopathy Symptom Scale: (1) Dyspnea 0-10 Scale: Unable to quantify Comment: Secondary to acute respiratory failure. Status post tracheostomy, currently tolerating T-piece. (2) Pain 0-10 Scale: Unable to quantify Comment: Oxycodone [id number]. Pertinent Non-Medical Issues Psychosocial: Patient originally from [facility]. He is the youngest of 4 siblings. High school education. Worked in his [employer] business [employer]. 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 Patient is , has 4 children. No service. Spiritual: Anabaptism lenny. Legal: No advance directives completed as per patient's family. Ethical issues impacting care: Patient unable to participate in medical decision -making secondary to clinical condition. 3 adult children serving as healthcare proxy decision makers. . Important Contacts Daughter Shannan Matos , Daughter Nichole Matos Son Hadley Matos Ex- (mother of his children) Janet Matos . Patient's father Jem Matos . . Prognosis Mr. Matos is a 46-year-old male with a medical history significant for TIA, uncontrolled hypertension and migraines. Patient presented to ED via EMS on as stroke alert. Patient was last seen with normal neurological function approximately 3-1/2 hours prior to ED arrival. Upon ED arrival, GCS of 7, blood pressure 238/153. He subsequently had a vomiting episode requiring emergent intubation and mechanical ventilation. Head CT revealing acute hemorrhaic stroke in the right thalamus with extension of the lateral third ventricles with a shift onto the right side of 6 mm. chest x-ray revealing left lower lobe consolidation and patchy infiltrates in the central right lung. Clinical course complicated by acute encephalopathy, acute hypoxemic and hypercarbic respiratory failure and acute kidney injury. Patient remains a high risk for further complications, continue decline and . Prognosis for a meaningful recovery guarded at this time. . Code Status: Full Code Plan * CODE STATUS: FULL CODE * HEALTHCARE DECISION-MAKING: Patient lacking capacity for medical decision- making secondary to clinical condition , encephalopathy, intubated on mechanical ventilation. Not likely to regain capacity giving brain bleed. No advance directives completed as per patient's family. Patient is . As per [place] law, healthcare proxy decision making falls to the majority of patient's adult children for which he has 3 (4th child is 4 years old). Daughters Shannan and Nichole and son Hadley Maddox. All wishing to participate. * GOALS OF CARE: Goals remain aggressive including FULL CODE, patient making some neurologic improvements. * Spoke with Dr. Pierre and nurse. * SYMPTOMS: = Dyspnea, secondary to acute respiratory failure. Patient s/p trach on 09/08/17. Currently tolerating T-piece. = Pain: Secondary to intubation, medical interventions, bedbound. Currently on oxycodone 5 mg every 4 hours. Sparing PRN need, last dose 09/18/17. Appears calm. = Bowels: MiraLAX, lactulose and Melina-Colace [id number]. Dulcolax suppository available. LBM 09/20/17. = Restlessness/agitation: Resolved. * Palliative care will continue to follow-up as needed for further clarifications of goals of care, provide emotional support as patient's clinical course continues to evolve. . Attestation To help prompt me to consider important information that might be impacting today's encounter and assessment, information from prior notes written by myself or my colleagues may have been "brought forward" into today's note. My signature on this note, however, is an attestation that I personally performed the exam, history, and/or decision-making noted today, and, unless otherwise indicated, the interactions with patient, family, and staff as well as the review of records all occurred today. I also attest that the listed assessment and stated plan reflect my best clinical judgment today based on the combination of historical information, prior notes, and today's exam/ interactions. When time spent is documented, it refers only to time spent today by the signer, or if indicated, combined time spent today by collaborating physician/nurse practitioner. Tess Jackson Sep 20, 2017 18:04
[2017-09-20] MEDS: ATORVASTATIN 40 MG TAB PO SCH (21:57)
[2017-09-21] VITALS (15 sets, daily range): BP systolic 127–170; BP diastolic 69–96; PULSE 65–86; RESP 14–15; TEMP 98.4–99.2; O2SAT 96–100
[2017-09-21] MEDS: PROPRANOLOL HCL 40 MG TAB PO SCH ×4 (00:05→17:48)
[2017-09-21] MEDS: INSULIN NovoLIN REGULAR SUPPLEMENTAL SCALE SQ SCH ×6 (00:06→19:51)
[2017-09-21] MEDS: FREE WATER G-TUBE SCH ×6 (03:39→20:00)
[2017-09-21] MEDS: RESP: ALBUTEROL 2.5 MG/IPRATROPIUM 0.5 MG NEB (SCH) INH ×2 (03:45→08:25)
[2017-09-21] MEDS: CHLORHEXIDINE GLUCONATE 2 % 1 PACK (2 CLOTHS) TOP SCH (04:00)
[2017-09-21] MEDS: LABETALOL HCL 300 MG TAB PEG SCH ×3 (05:31→23:16)
[2017-09-21] MEDS: hydrALAZINE HCL 100 MG TAB PO SCH ×3 (05:31→23:16)
[2017-09-21] MEDS: cloNIDine HCL 0.3 MG TAB PO SCH ×3 (05:31→23:16)
[2017-09-21 07:24] LABS: BICARBONATE 21.4 MEQ/L (21.0-32.0); CREATININE 1.7 MG/DL (0.60-1.30)
[2017-09-21] MEDS: CHLORHEXIDINE 0.12% (ORAL KIT) 15 ML CUP MT SCH ×2 (08:00→20:28)
[2017-09-21] MEDS: FLUTICASONE PROPIONATE 50 MCG/ACT 16 GM NASAL SPRAY EACH NARE SCH (08:09)
[2017-09-21] MEDS: DOCUSATE SODIUM 50 MG/SENNA 8.6 MG TAB PO SCH ×2 (08:10→21:10)
[2017-09-21] MEDS: POLYETHYLENE GLYCOL 17 GM PKG PO SCH ×2 (08:10→21:00)
[2017-09-21] MEDS: FAMOTIDINE 20 MG TAB NG SCH ×2 (08:10→21:10)
[2017-09-21] MEDS: HEPARIN SODIUM - SQ 10,000 UNITS/ML VIAL SQ SCH ×2 (08:11→21:11)
[2017-09-21] MEDS ORDERED: ACETAMINOPHEN 1000 MG/100 ML 0 ML IV ONE (09:42)
[2017-09-21] MEDS ORDERED: HYDROmorphone HCL PF 2 MG/ML VIAL ONE (09:43)
[2017-09-21] MEDS: INSULIN DETEMIR 100 UNITS/ML VIAL SQ SCH ×2 (09:43→23:16)
[2017-09-21] MEDS: SODIUM CHLORIDE 23.4% INJ 38.5 MEQ in WATER STERILE FOR INJ 1,000 ML IV SCH (10:48)
--- NOTE | 2017-09-21 15:22 | HHI.CCPN ---
Subjective Remarks/Hospital Course Hospital Course: 46 y/o man with longstanding hypertension and previous CVA presents obtunded with new neurological symptoms noticed prior to arrival. Timeline unclear. Required intubation in ED for airway protection. CT head shows left thalamic bleed and shift away from bleed. Toxicology screen pending. Subjective: 08/30: encephalopathy persists. bp under better control, still on cardene. on sedation vacation, moves left side spontaneously but nothing on right. 08/31: overnight, severely agitated, requiring high dose sedation. also, lambert obstructed, new lambert placed with improvement in obstruction. this morning, RAFAELA with Cr up to 3. urine Na < 10, suggestive of pre-renal etiology. continued ivf. high peak pressures on vent. suction lavage with thick tenacious secretions. bronch with left lobe mucous plugging. bronchospasm a significant problem requiring iv magnesium and duonebs. finally attempted small paralytic dose with improvement in abdominal breathing and fighting ventilator. 09/01: No improvement in neuro exam, intermittent jerking movements noted by the RN no seizure. Creatinine for urine output adequate. I have consulted nephrology. We'll check CT of the head repeat EEG tomorrow a.m. 09/02: Clinically remains same. Did not tolerate sedation vacation, became hypertensive. CT head today showed slight improvement in L thalamic and IVH. Dr. Tinajero is the neurosurgeon, Dr. Jhaveri covering 09/03: Still unable to tolerate sedation vacation. Becomes very asynchronous with the vent with desaturations. Discussed with daughters about possible tracheostomy, they want to discuss with their mom, patient's ex -. Creatinine has worsened to 5.1 but no acute indication for dialysis. Will check ABG urine output 1.8 L in 24 hours 09/04: Remains intubated sedated synchronous with the vent. Noted to have tongue swelling/angioedema. Lisinopril discontinued. Placed on Decadron and IV Benadryl. Plan for tracheostomy and PEG tube placement next week 09/05: Patient remains intubated sedated critically ill. No change or improvement in neuro status. Lisinopril discontinued yesterday Decadron and Benadryl started tongue swelling is improved. Hyperglycemia secondary to Decadron, random blood sugar 360. Will wean to DC. Plan for trach and PEG this week, if family agreeable 09/06: Angioedema improving with Decadron and Benadryl. Still gets very agitated with sedation lightening. Needs improved blood pressure control increase clonidine to 0.3 every 8 hours. Plan for PEG today and Trach 09/08/1709/07: Stable overnight, except bleeding/oozing from the PEG site. We'll give single dose of nasal DDAVP. Creatinine slightly improved to 4.4, urine output 3.9 L in 24 hours. Plan for tracheostomy 09/08/17. 09/08: Tracheostomy completed. Tongue edema unchanged. 09/09: Tolerating spontaneous respiration on trach. Tongue edema persists. 09/10: Tolerating progression to trach collar today. 09/11: t-piece x 24h. still not waking up and encephalopathic. however, not agitated. still hypertensive, tachycardic. will need placement. Cr continues to improve. still hypernatremic. 09/12: delayed note entry. seen around 1300 on 09/12. wbc slightly up, fever curve uptrending, but has history of fevers likely from thalamic stroke. sputum , urine cultures sent at 0600. will await these results before deciding further courses of action. still on t-piece and no overall clinical change. 09/13: Overnight events noted, febrile to 105, with tremor, clonus, rigidity. given dantrolene for possible NMS by Dr. Asif and stopped Haldol and Seroquel. Provigil also stop due to possibility of serotonin syndrome. Patient was started on Zosyn and vancomycin and panculture sent, and placed on full vent support due to tachypnea. Temp came down to 101 (his baseline) after dantrolene one dose. On my exam at this time patient does not have a rigidity and blood temperatures 101. Nursing staff reports thick yellow secretions, chest x-ray shows possible left lower lobe infiltrate. WBC increased from 15.5 to 23.3. I will get the CT of the chest to evaluate for lung infiltrate and also CT abdomen and pelvis to rule out any intra-abdominal source of sepsis. Hold off on Ativan at this time. Patient is also getting a CT of the head 09/14: Patient continues to spike fever but at baseline. WBC count is trending down (23.3 to 18.4). Sputum culture growing Klebsiella. Opens eyes spontaneously today. Weakly give thumbs up to the RN (I did not witness it) 09/15: Continues to spike fever, appreciate ID consult. I have ordered venous ultrasound of all extremities. Also check CT of the sinuses rule out sinusitis and also evaluate for transient swelling pharyngeal/retropharyngeal abscesses. ENT consulted for persistent angioedema 09/16: On CPAP. Eyes open. Following commands on LUE. Bilateral cephalic vein thrombus, occlusive on Left. CT face shows pansinusitis and mastoiditis. ENT has seen for persistent angioedema and tongue swelling official consult pending 09/17: Sitting up in stretcher chair today, tracking intermittently follows commands on LUE (gives thumbs up). Fever trending down. Angio edema improving. Chest x-ray shows persistent left lower lobe consolidation 09/18: no changes. cpap at night, trach collar during the day. blood glucoses > 300. 09/19: been on t-piece x 24h. hypernatremia persists. glucose somewhat better, but remains consistently > 200 despite increased regimen. 09/20: Change D5W to 1/4 NS to correct hyperglycemia. 09/21: Remains on T piece. Tolerating tube feeds. Objective Vital Signs Date Time Temp Pulse Resp B/P (MAP) Pulse Ox O2 Delivery O2 Flow Rate FiO2 09/21/17 14:00 70 09/21/17 12:00 98.7 14 127/69 (88) 100 09/21/17 08:25 T-piece 5.00 28 Intake and Output 09/21/17 09/21/17 09/22/17 08:00 16:00 00:00 Intake Total 1667 ml 645 ml Output Total 1100 ml Balance 567 ml 645 ml Result Diagram: 09/18/17 0346 09/21/17 0620 Objective Remarks Gen: Middle-aged male, lying in bed, encephalopathic Head: Atraumatic. Conjunctivae clear. ENT: Tongue swollen/angioedema with laceration from bite, stable Neck: trach site clean, dry. Lungs: On TP. equal chest rise. Heart: RR. Intermittently hypertensive. Abdomen: Mildly distended. PEG site clean. Extremities: Warm, well perfused. Neuro: Opens eyes spontaneously today, following commands LUE by giving thumbs up. w/d to pain left UE and bilateral LE. pupils equal, round A/P Problem List: (1) Intracranial hemorrhage ICD Code: I62.9 - Nontraumatic intracranial hemorrhage, unspecified Status: Acute (2) Hemorrhagic stroke ICD Code: I61.9 - Nontraumatic intracerebral hemorrhage, unspecified Status: Acute (3) Hypertensive emergency ICD Code: I10 - Hypertensive emergency Status: Acute Assessment and Plan Assessment: 46yM with left thalamic hypertensive hemorrhagic IPH, ICH score 2. slowly improving neurologically. Needs placement. Fever down trending. Angioedema slowly improving. glycemic control remains a problem, as does hypernatremia. Active Problems: Acute encephalopathy - resolving. Left Thalamic Hemorrhage, with IV extension Intracerebral Hemorrhage, ICH score 2 Respiratory failure s/p trach - improving. Pansinusitis, Mastoiditis Bilateral upper extremity superficial thrombophlebitis 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 - slightly improved. Hyperglycemia - persistent. Hypertension Hypernatremia - persistent. Hypoactive delirium - resolving. Healthcare associated pneumonia with Klebsiella- resolved. Sepsis - resolved. Possible NMS - resolved. Fever central vs infectious - resolved. Hypertensive Emergency- resolved. Agitated Delirium - resolved. Plan: NEURO: - Seroquel and Haldol discontinued due to possible NMS - oxy 5mg po q6h prn. - propranolol 40mg po q6h - continue clonidine 0.3 mg tid - Repeat CT of the head showed improving bleed RESP: - TP as tolerated - CT of the chest 09/13/17 -LLL infiltrate - Broad-spectrum antibiotics as below - DuoNeb every 6 hours scheduled and when necessary, ventilator bundle - CT face shows pansinusitis and mastoiditis - ENT consulted for persistent angioedema and sinusitis-appreciate input CVS: - Intermittent hypertension now well controlled - Continue clonidine, amlodipine and propranolol - increase hydralazine to 100mg po q8hr. GI: - Status post PEG tube continue tube feeds - Having bowel movements - increased Free water 300mL per tube q4h add free water 1/4 NS @ 42 mL/hr. f/u daily sodium levels. - Pepcid per tube /RENAL: - continue Lambert catheter given prior urinary obstruction and resolving rafaela - Nephrology following, creatinine stable ID - New sepsis with high white count and high fever, most likely secondary to pneumonia - CT maxillofacial shows pansinusitis and mastoiditis, also upper extremity superficial thrombophlebitis on both contributing to fever - ID consult appreciated - ENT consulted for persistent angioedema - Restarted Decadron and Benadryl, continue Flonase - On zosyn. plan for 7 days total (12-4 to anticipated 09/19 stop date, will stop after today and monitor off abx clinically). - Klebsiella pneumonia HEME: - Leukocytosis secondary to probable sepsis - improving. MSK: - OOB to stretcher chair daily - PT/OT following ENDO: - increase Levemir again to 20 units SQ q12h - continue high scale q4h ssi. PROPH: - sqh 5000 q12h (2 weeks post bleed, stable). Pepcid for GI prophylaxis Cesar Sanches MD Sep 21, 2017 15:22
[2017-09-21] MEDS: SODIUM POLYSTYRENE SULFONATE SUSP 15 GM/60 ML CUP PO SCH ×3 (17:48→19:53)
[2017-09-21] MEDS: ATORVASTATIN 40 MG TAB PO SCH (21:10)
--- NOTE | 2017-09-21 23:43 | HHI.NSPN ---
History Chief Complaint: Unable to obtain due to patient's clinical condition. Interval History 46-year-old male with history of hypertension who was brought to the emergency room per [facility] after being found with altered mental status, right hemiparesis. He had reportedly been seen to be normal approximately 3-1/2 hours prior. Systolic blood pressure greater than 260/130 on initial evaluation. No seizure activity reported. Positive emesis. Per emergency room personnel the patient was responding verbally, difficulty raising his right arm upon initial arrival. He was intubated in the emergency room and a stat CT scan accomplished which has revealed a primarily left thalamic intracranial hemorrhage. 09/01/17: Patient remains intubated and sedated. 09/02/17: Follow-up CT scan head with mild initial decreased intraventricular hemorrhage, no new thalamic hemorrhage, mild decreased mass effect. 09/03/17: Remains on propofol and fentanyl IV for ventilator control. Positive agitation with decreased sedation 09/06/17: Remains intubated. PEG tube placed today. On Decadron and Benadryl for angioedema. Lisinopril discontinued 09/20/2017: Tracheostomy in place. Upper endoscopy performed 09/19/17 with findings of small amount of bleeding at the PEG site. Exam Results Vital Signs Date Time Temp Pulse Resp B/P (MAP) Pulse Ox O2 Delivery O2 Flow Rate FiO2 09/21/17 21:21 100 T-piece 6.00 28 09/21/17 18:00 72 09/21/17 16:00 98.6 14 132/75 (94) Intake and Output 09/21/17 09/21/17 09/21/17 07:59 15:59 23:59 Intake Total 1667 ml 645 ml 1462 ml Output Total 1100 ml 1250 ml Balance 567 ml 645 ml 212 ml Physical Examination HEENT: Normocephalic, atraumatic. Left pupil 4 mm & right pupil 5 mm, slight reaction. Edematous tongue protruding from oral cavity. MUSCULOSKELETAL: No significant long bone or joint deformity NEUROLOGICAL: Awake and relatively alert Tracts to voice to the left with disconjugate gaze. Persistent disconjugate extraocular movements Nonverbal, trached. He grasps his left hand and lifts left foot to command. Appears to have right hemiplegia Medical Decision Making Impression and Plan Impression: Large thalamic intracranial hemorrhage. Gradually improving on most recent CT scan head Mental status gradually improving. Now following commands with the left upper and lower extremity PEG tube in place Klebsiella pneumonia Hypertension Recommendations: Tracheostomy and PEG tube in place. CPAP at night-trach mask during the day Continuing therapy DVT prophylaxis-subcutaneous heparin Hypertension-remains on antihypertensive medications. Stable Klebsiella pneumonia-ID following. On Orville Levin MD Sep 21, 2017 23:43
[2017-09-22] VITALS (11 sets, daily range): BP systolic 129–165; BP diastolic 74–86; PULSE 76–84; RESP 14–21; TEMP 98.7–99.2; O2SAT 100
[2017-09-22] MEDS: INSULIN NovoLIN REGULAR SUPPLEMENTAL SCALE SQ SCH ×7 (00:01→23:56)
[2017-09-22] MEDS: FREE WATER G-TUBE SCH ×6 (03:25→20:00)
[2017-09-22] MEDS: CHLORHEXIDINE GLUCONATE 2 % 1 PACK (2 CLOTHS) TOP SCH (04:00)
[2017-09-22] MEDS: PROPRANOLOL HCL 40 MG TAB PO SCH ×5 (05:52→23:55)
[2017-09-22] MEDS: LABETALOL HCL 300 MG TAB PEG SCH ×4 (05:52→22:26)
[2017-09-22] MEDS: hydrALAZINE HCL 100 MG TAB PO SCH ×3 (05:52→21:40)
[2017-09-22] MEDS: cloNIDine HCL 0.3 MG TAB PO SCH ×3 (05:52→21:41)
[2017-09-22 07:26] LABS: BICARBONATE 30.3 MEQ/L (21.0-32.0); CALCIUM 8.7 MG/DL (8.5-10.1); CREATININE 1.6 MG/DL (0.60-1.30)
[2017-09-22] MEDS: CHLORHEXIDINE 0.12% (ORAL KIT) 15 ML CUP MT SCH ×2 (08:00→21:43)
[2017-09-22] MEDS: FAMOTIDINE 20 MG TAB NG SCH ×2 (08:16→21:40)
[2017-09-22] MEDS: HEPARIN SODIUM - SQ 10,000 UNITS/ML VIAL SQ SCH ×2 (08:16→21:42)
[2017-09-22] MEDS: POLYETHYLENE GLYCOL 17 GM PKG PO SCH ×2 (08:16→21:00)
[2017-09-22] MEDS: DOCUSATE SODIUM 50 MG/SENNA 8.6 MG TAB PO SCH ×2 (08:16→21:39)
[2017-09-22] MEDS: FLUTICASONE PROPIONATE 50 MCG/ACT 16 GM NASAL SPRAY EACH NARE SCH (08:16)
[2017-09-22] MEDS: INSULIN DETEMIR 100 UNITS/ML VIAL SQ SCH ×2 (08:53→22:27)
[2017-09-22] MEDS: SODIUM CHLORIDE 23.4% INJ 38.5 MEQ in WATER STERILE FOR INJ 1,000 ML IV SCH (10:10)
--- NOTE | 2017-09-22 11:06 | HHI.CCPN ---
Subjective Remarks/Hospital Course Hospital Course: 46 y/o man with longstanding hypertension and previous CVA presents obtunded with new neurological symptoms noticed prior to arrival. Timeline unclear. Required intubation in ED for airway protection. CT head shows left thalamic bleed and shift away from bleed. Toxicology screen pending. Subjective: 08/30: encephalopathy persists. bp under better control, still on cardene. on sedation vacation, moves left side spontaneously but nothing on right. 08/31: overnight, severely agitated, requiring high dose sedation. also, lambert obstructed, new lambert placed with improvement in obstruction. this morning, RAFAELA with Cr up to 3. urine Na < 10, suggestive of pre-renal etiology. continued ivf. high peak pressures on vent. suction lavage with thick tenacious secretions. bronch with left lobe mucous plugging. bronchospasm a significant problem requiring iv magnesium and duonebs. finally attempted small paralytic dose with improvement in abdominal breathing and fighting ventilator. 09/01: No improvement in neuro exam, intermittent jerking movements noted by the RN no seizure. Creatinine for urine output adequate. I have consulted nephrology. We'll check CT of the head repeat EEG tomorrow a.m. 09/02: Clinically remains same. Did not tolerate sedation vacation, became hypertensive. CT head today showed slight improvement in L thalamic and IVH. Dr. Tinajero is the neurosurgeon, Dr. Jhaveri covering 09/03: Still unable to tolerate sedation vacation. Becomes very asynchronous with the vent with desaturations. Discussed with daughters about possible tracheostomy, they want to discuss with their mom, patient's ex -. Creatinine has worsened to 5.1 but no acute indication for dialysis. Will check ABG urine output 1.8 L in 24 hours 09/04: Remains intubated sedated synchronous with the vent. Noted to have tongue swelling/angioedema. Lisinopril discontinued. Placed on Decadron and IV Benadryl. Plan for tracheostomy and PEG tube placement next week 09/05: Patient remains intubated sedated critically ill. No change or improvement in neuro status. Lisinopril discontinued yesterday Decadron and Benadryl started tongue swelling is improved. Hyperglycemia secondary to Decadron, random blood sugar 360. Will wean to DC. Plan for trach and PEG this week, if family agreeable 09/06: Angioedema improving with Decadron and Benadryl. Still gets very agitated with sedation lightening. Needs improved blood pressure control increase clonidine to 0.3 every 8 hours. Plan for PEG today and Trach 09/08/1709/07: Stable overnight, except bleeding/oozing from the PEG site. We'll give single dose of nasal DDAVP. Creatinine slightly improved to 4.4, urine output 3.9 L in 24 hours. Plan for tracheostomy 09/08/17. 09/08: Tracheostomy completed. Tongue edema unchanged. 09/09: Tolerating spontaneous respiration on trach. Tongue edema persists. 09/10: Tolerating progression to trach collar today. 09/11: t-piece x 24h. still not waking up and encephalopathic. however, not agitated. still hypertensive, tachycardic. will need placement. Cr continues to improve. still hypernatremic. 09/12: delayed note entry. seen around 1300 on 09/12. wbc slightly up, fever curve uptrending, but has history of fevers likely from thalamic stroke. sputum , urine cultures sent at 0600. will await these results before deciding further courses of action. still on t-piece and no overall clinical change. 09/13: Overnight events noted, febrile to 105, with tremor, clonus, rigidity. given dantrolene for possible NMS by Dr. Asif and stopped Haldol and Seroquel. Provigil also stop due to possibility of serotonin syndrome. Patient was started on Zosyn and vancomycin and panculture sent, and placed on full vent support due to tachypnea. Temp came down to 101 (his baseline) after dantrolene one dose. On my exam at this time patient does not have a rigidity and blood temperatures 101. Nursing staff reports thick yellow secretions, chest x-ray shows possible left lower lobe infiltrate. WBC increased from 15.5 to 23.3. I will get the CT of the chest to evaluate for lung infiltrate and also CT abdomen and pelvis to rule out any intra-abdominal source of sepsis. Hold off on Ativan at this time. Patient is also getting a CT of the head 09/14: Patient continues to spike fever but at baseline. WBC count is trending down (23.3 to 18.4). Sputum culture growing Klebsiella. Opens eyes spontaneously today. Weakly give thumbs up to the RN (I did not witness it) 09/15: Continues to spike fever, appreciate ID consult. I have ordered venous ultrasound of all extremities. Also check CT of the sinuses rule out sinusitis and also evaluate for transient swelling pharyngeal/retropharyngeal abscesses. ENT consulted for persistent angioedema 09/16: On CPAP. Eyes open. Following commands on LUE. Bilateral cephalic vein thrombus, occlusive on Left. CT face shows pansinusitis and mastoiditis. ENT has seen for persistent angioedema and tongue swelling official consult pending 09/17: Sitting up in stretcher chair today, tracking intermittently follows commands on LUE (gives thumbs up). Fever trending down. Angio edema improving. Chest x-ray shows persistent left lower lobe consolidation 09/18: no changes. cpap at night, trach collar during the day. blood glucoses > 300. 09/19: been on t-piece x 24h. hypernatremia persists. glucose somewhat better, but remains consistently > 200 despite increased regimen. 09/20: Change D5W to 1/4 NS to correct hyperglycemia. 09/21: Remains on T piece. Tolerating tube feeds. 09/22: Remains on T piece. Tolerating tube feeds. Hyperkalemia improved with Kayexalate yesterday. Objective Vital Signs Date Time Temp Pulse Resp B/P (MAP) Pulse Ox O2 Delivery O2 Flow Rate FiO2 09/22/17 09:11 100 T-piece 5.00 28 09/22/17 08:00 80 09/22/17 08:00 99.2 15 129/75 (93) Intake and Output 09/22/17 09/22/17 09/23/17 08:00 16:00 00:00 Intake Total 1393 ml Output Total 1700 ml Balance -307 ml Result Diagram: 09/18/17 0346 09/22/17 0550 Objective Remarks Gen: Middle-aged male, lying in bed, encephalopathic Head: Atraumatic. Conjunctivae clear. ENT: Tongue swollen/angioedema with laceration from bite, stable Neck: trach site clean, dry. Lungs: On TP. equal chest rise. Heart: RR. Intermittently hypertensive. Abdomen: Mildly distended. PEG site clean. Extremities: Warm, well perfused. Neuro: Opens eyes spontaneously today, following commands LUE by giving thumbs up. w/d to pain left UE and bilateral LE. pupils equal, round A/P Problem List: (1) Intracranial hemorrhage ICD Code: I62.9 - Nontraumatic intracranial hemorrhage, unspecified Status: Acute (2) Hemorrhagic stroke ICD Code: I61.9 - Nontraumatic intracerebral hemorrhage, unspecified Status: Acute (3) Hypertensive emergency ICD Code: I10 - Hypertensive emergency Status: Acute Assessment and Plan Assessment: 46yM with left thalamic hypertensive hemorrhagic IPH, ICH score 2. slowly improving neurologically. Needs placement. Fever down trending. Angioedema slowly improving. glycemic control remains a problem, as does hypernatremia. Active Problems: Acute encephalopathy - resolving. Left Thalamic Hemorrhage, with IV extension Intracerebral Hemorrhage, ICH score 2 Respiratory failure s/p trach - improving. Pansinusitis, Mastoiditis Bilateral upper extremity superficial thrombophlebitis 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 - slightly improved. Hyperglycemia - persistent. Hypertension Hypernatremia - persistent. Hypoactive delirium - resolving. Healthcare associated pneumonia with Klebsiella- resolved. Sepsis - resolved. Possible NMS - resolved. Fever central vs infectious - resolved. Hypertensive Emergency- resolved. Agitated Delirium - resolved. Plan: NEURO: - Seroquel and Haldol discontinued due to possible NMS - oxy 5mg po q6h prn. - propranolol 40mg po q6h - continue clonidine 0.3 mg tid - Repeat CT of the head showed improving bleed RESP: -Tolerating T piece - CT of the chest 09/13/17 -LLL infiltrate - Broad-spectrum antibiotics as below - DuoNeb every 6 hours scheduled and when necessary, ventilator bundle - CT face shows pansinusitis and mastoiditis - ENT consulted for persistent angioedema and sinusitis-appreciate input CVS: - Intermittent hypertension now well controlled - Continue clonidine, amlodipine and propranolol - increase hydralazine to 100mg po q8hr. GI: - Status post PEG tube continue tube feeds - Having bowel movements - increased Free water 300mL per tube q4h add free water 1/4 NS @ 42 mL/hr. f/u daily sodium levels. - Pepcid per tube /RENAL: - continue Lambert catheter given prior urinary obstruction and resolving rafaela - Nephrology following, creatinine stable ID - New sepsis with high white count and high fever, most likely secondary to pneumonia - CT maxillofacial shows pansinusitis and mastoiditis, also upper extremity superficial thrombophlebitis on both contributing to fever - ID consult appreciated - ENT consulted for persistent angioedema -Off Decadron(09/20)and Benadryl(09/18), continue Flonase -Zosyn stopped (09-13 to 09-20). Monitor clinically for any recurrence of sepsis. - Klebsiella pneumonia HEME: - Leukocytosis secondary to probable sepsis - improving. MSK: - OOB to stretcher chair daily - PT/OT following ENDO: -Continue Levemir again to 20 units SQ q12h - continue high scale q4h ssi. PROPH: - sqh 5000 q12h (2 weeks post bleed, stable). Pepcid for GI prophylaxis Consult and transfer to hospitalist service for further medical management. Ordered transfer out of ICU. Cesar Sanches MD Sep 22, 2017 11:06
--- NOTE | 2017-09-22 11:46 | HHI.NSPN ---
(RamaJames) History Chief Complaint: Unable to obtain due to patient's clinical condition. (RamaJames) Interval History 08/29: History of hypertension who was brought to the emergency room per [facility] after being found with altered mental status, right hemiparesis. He had reportedly been seen to be normal approximately 3-1/2 hours prior. Systolic blood pressure greater than 260/130 on initial evaluation. No seizure activity reported. Positive emesis. Per emergency room personnel the patient was responding verbally, difficulty raising his right arm upon initial arrival. He was intubated in the emergency room and a stat CT scan accomplished which has revealed a primarily left thalamic intracranial hemorrhage. 09/01/17: Patient remains intubated and sedated. 09/02: intubated and well sedated, not tolerating sedation vacation due to increase in blood pressure. 09/03/17: Remains on propofol and fentanyl IV for ventilator control. Positive agitation with decreased sedation 09/04/17: Pt sedated on Diprivan and Fentanyl drip. Not following commands. Pt on Cardene drip. Intubated. 09/05/17: Pt sedated on Diprivan and Fentanyl drip. Not following commands. Pt on Cardene drip. Intubated. Pupils 2mm bilaterally, NR bilaterally. 09/06/17: Remains intubated. PEG tube placed today. On Decadron and Benadryl for angioedema. Lisinopril discontinued 09/07. The patient is obtunded but is sedated with propofol. Nursing reports that the patient does have bleeding secondary to his PEG tube being placed yesterday. The family reports that the plan is to do a tracheostomy tomorrow. Nursing does say the patient does withdraw to stimulation, has a cough and gag reflex but his pupils are nonreactive. 09/10: The patient continues to be obtunded although he has sedation infusing at a low dose. He is trached and tolerating a CPAP trial. 09/13: Obtunded versus lethargic. He is not on any sedation. He is trached and mechanically ventilated. He went for a CT brain this morning. Nursing reports that the patient does withdraw to noxious stimulation and that the pupils are sluggish. 09/14: The patient has his eyes open when seen. He continues to be trached and mechanically ventilated. Nursing this morning reports that the patient gave a thumbs up on the left hand to command for him. 09/15: Pt off sedative drips. Pupils 2mm bilaterally slight reaction bilaterally. Not following commands. Not opening eyes. 09/16: When seen this morning the patient appears lethargic. He is trached and on T-piece. Nursing reports that the patient was more alert and did give a thumbs up to command this morning prior to receiving diphenhydramine. He also reported no movement to the right side. 09/17: No acute events overnight. Patient up in chair 09/18: No acute events overnight. Patient remains hypertensive. He is in bed with at his side. 09/19: Persistent hypertension overnight. 09/20/2017: Tracheostomy in place. Upper endoscopy performed 09/19/17 with findings of small amount of bleeding at the PEG site. 09/22: The patient is awake when seen. He does interact. (James Ontiveros) System Review Comments Unable to obtain due to patient's clinical condition. (James Ontiveros) Exam Results 09/20/17 09/20/17 09/21/17 09/21/17 09/22/17 09/22/17 06:00 18:00 06:00 18:00 06:00 18:00 Intake Total 1449 ml 2180 ml 1667 ml 2107 ml 1393 ml Output Total 1200 ml 650 ml 1100 ml 1250 ml 1700 ml Balance 249 ml 1530 ml 567 ml 857 ml -307 ml IV Total 50 ml 630 ml 645 ml Tube Feeding 499 ml 650 ml 967 ml 962 ml 493 ml Other 900 ml 900 ml 700 ml 500 ml 900 ml Output Urine Total 1200 ml 650 ml 1100 ml 1250 ml 1700 ml # Bowel Movements 1 1 2 2 2 Vital Signs Date Time Temp Pulse Resp B/P (MAP) Pulse Ox O2 Delivery O2 Flow Rate FiO2 09/22/17 09:11 100 T-piece 5.00 28 09/22/17 08:00 80 09/22/17 08:00 T-Piece 28 09/22/17 08:00 99.2 76 15 129/75 (93) 100 09/22/17 06:00 78 09/22/17 04:00 82 09/22/17 04:00 99.2 78 16 165/86 (112) 100 09/22/17 02:00 78 09/22/17 00:00 84 09/22/17 00:00 99.2 84 14 161/74 (103) 100 09/21/17 22:00 86 09/21/17 21:21 100 T-piece 6.00 28 09/21/17 20:00 72 09/21/17 20:00 99.2 72 14 152/88 (109) 100 09/21/17 19:00 100 T-Piece 28 09/21/17 18:00 72 09/21/17 16:00 98.6 74 14 132/75 (94) 100 09/21/17 16:00 75 09/21/17 14:00 70 09/21/17 12:00 98.7 72 14 127/69 (88) 100 09/21/17 12:00 73 09/21/17 10:00 65 09/21/17 08:25 99 T-piece 5.00 28 09/21/17 08:00 68 09/21/17 08:00 98.9 69 14 142/83 (102) 100 09/21/17 07:00 99 T-Piece 28 09/21/17 06:00 74 09/21/17 04:00 68 09/21/17 04:00 98.4 68 15 170/96 (120) 100 09/21/17 03:50 96 30 09/21/17 02:00 70 09/21/17 00:00 98.9 68 14 147/78 (101) 97 09/21/17 00:00 68 09/20/17 22:00 70 09/20/17 20:33 98 T-piece 6.00 28 09/20/17 20:00 98.4 68 14 151/88 (109) 99 09/20/17 20:00 68 09/20/17 19:00 99 T-Piece 28 09/20/17 18:00 72 09/20/17 16:00 98.7 67 14 146/82 (103) 95 09/20/17 16:00 72 09/20/17 14:00 72 09/20/17 12:00 98.7 67 14 146/82 (103) 95 09/20/17 12:00 67 09/20/17 10:00 68 09/20/17 09:25 100 T-piece 5.00 28 09/20/17 08:00 72 09/20/17 08:00 98.6 72 13 121/70 (87) 97 09/20/17 07:00 97 T-Piece 28 09/20/17 06:00 67 09/20/17 04:00 99.3 67 12 151/86 (107) 97 09/20/17 04:00 67 09/20/17 02:00 72 09/20/17 00:00 79 09/20/17 00:00 99.3 79 14 142/76 (98) 95 09/19/17 22:00 70 09/19/17 20:13 97 T-piece 28 09/19/17 20:00 68 09/19/17 20:00 98.9 68 12 161/90 (113) 97 09/19/17 20:00 97 T-Piece 28 09/19/17 18:00 69 09/19/17 16:00 99.0 72 16 143/82 (102) 99 09/19/17 16:00 72 09/19/17 14:00 76 09/19/17 12:00 99.2 80 13 150/73 (98) 100 09/19/17 12:00 80 (James Ontiveros) Physical Examination GENERAL: Awake & alert, interacts, no evident distress. HEENT: Normocephalic, atraumatic. Left pupil 4 mm & right pupil 5 mm, slight reaction. Edematous tongue protruding from oral cavity. MUSCULOSKELETAL: Moves left-sided extremities, no evident clubbing or deformity. NEUROLOGICAL: Awake & fairly alert. Tracts to voice to the left with disconjugate gaze. Persistent disconjugate extraocular movements. Nonverbal, trached. Grasps with left hand and moves left foot to command. No movement of right extremities to noxious stimulation but does have facial grimacing. (James Ontiveros) Lab, Micro, Other Results Laboratory Tests Test 09/19/17 11:53 09/20/17 07:08 09/21/17 06:20 09/22/17 05:50 Blood Urea Nitrogen 51 MG/DL 50 MG/DL 43 MG/DL 38 MG/DL Creatinine 2.12 MG/DL 2.08 MG/DL 1.70 MG/DL 1.60 MG/DL Random Glucose 177 MG/DL 262 MG/DL 156 MG/DL 169 MG/DL Calcium Level 8.6 MG/DL 8.7 MG/DL 8.0 MG/DL 8.7 MG/DL Sodium Level 150 MEQ/L 147 MEQ/L 146 MEQ/L 147 MEQ/L Potassium Level 3.8 MEQ/L 4.1 MEQ/L 5.3 MEQ/L 3.5 MEQ/L Chloride Level 114 MEQ/L 111 MEQ/L 114 MEQ/L 111 MEQ/L Carbon Dioxide Level 30.4 MEQ/L 29.9 MEQ/L 21.4 MEQ/L 30.3 MEQ/L Anion Gap 6 MEQ/L 6 MEQ/L 11 MEQ/L 6 MEQ/L Estimat Glomerular Filtration Rate 41 ML/MIN 42 ML/MIN 53 ML/MIN 57 ML/MIN (James Ontiveros) Medical Decision Making Impression and Plan Impression: 1. Large thalamic intracranial hemorrhage. 2. Hypertension 3. Klebsiella pneumonia Awake & alert, improving mental status, following commands with left side, appears to have right hemiplegia. CT brain w/improvement of left thalamic haemorrhage, decreased midline shift, blood noted in posterior horns, no acute findings. Reviewed labs for today. Sodium 147. Plan: Discussed plan of care with Nursing. Primary management per [employer]. Neuro checks. Stat CT brain for any decline in neuro status. Abx per Infectious Disease. Palliative Care consult. Continue full supportive care measures per family. (James Ontiveros) Attending Statement The exam, history, and the medical decision-making described in the above note were completed with the assistance of the mid-level provider. I reviewed and agree with the findings presented. I attest that I had a [id number] encounter with the patient on the same day, and personally performed and documented my assessment and findings in the medical record. On my examination 09/22/17 the patient's family is in the room during the exam. He is awake and relatively alert. He continues to track towards the left with disconjugate gaze and response to his family's voice and stimulation. He moves his left upper and lower extremities spontaneous and to command. His family states that he has been counting for them. Continued gradual improvement in neurologic exam. Continue to wean ventilatory support as tolerated. Nutrition: To feedings Okay for Lovenox Will need inpatient rehabilitation (Orville Tinajero MD) James Ontiveros Sep 22, 2017 11:46 Orville Tinajero MD Sep 22, 2017 20:04
[2017-09-22] MEDS: ATORVASTATIN 40 MG TAB PO SCH (21:40)
[2017-09-23] VITALS (20 sets, daily range): BP systolic 98–161; BP diastolic 56–88; PULSE 72–81; RESP 13–26; TEMP 98.5–99.8; O2SAT 100
[2017-09-23] MEDS: ACETAMINOPHEN 325 MG TAB PO PRN (03:09)
[2017-09-23] MEDS: INSULIN NovoLIN REGULAR SUPPLEMENTAL SCALE SQ SCH ×5 (03:31→20:00)
[2017-09-23] MEDS: CHLORHEXIDINE GLUCONATE 2 % 1 PACK (2 CLOTHS) TOP SCH (04:00)
[2017-09-23] MEDS: FREE WATER G-TUBE SCH ×6 (04:00→20:00)
[2017-09-23] MEDS: cloNIDine HCL 0.3 MG TAB PO SCH ×3 (05:11→21:18)
[2017-09-23] MEDS: PROPRANOLOL HCL 40 MG TAB PO SCH ×3 (05:11→17:20)
[2017-09-23] MEDS: hydrALAZINE HCL 100 MG TAB PO SCH ×3 (05:11→21:18)
[2017-09-23] MEDS: LABETALOL HCL 300 MG TAB PEG SCH ×3 (05:11→21:18)
[2017-09-23 07:02] LABS: AUTOMATED NEUTROPHIL # 10.3 TH/MM3 (1.8-7.7); BASOPHIL # 0.1 TH/MM3 (0-0.2); BASOPHIL % 0.5 % (0.0-2.0); EOSINOPHIL # 0.2 TH/MM3 (0-0.4); EOSINOPHIL % 1.5 % (0.0-4.0); HEMATOCRIT 27.3 % (39.0-51.0); HEMOGLOBIN 8.8 GM/DL (13.0-17.0); LYMPH % 8.6 % (9.0-44.0); LYMPHOCYTE # 1.1 TH/MM3 (1.0-4.8); MEAN CELL VOLUME 82.9 FL (80.0-100.0); MEAN CORPUSCULAR HEMOGLOBIN 26.6 PG (27.0-34.0); MEAN CORPUSCULAR HGB CONC 32.1 % (32.0-36.0); MEAN PLATELET VOLUME 11.2 FL (7.0-11.0); MONOCYTE # 0.9 TH/MM3 (0-0.9); NEUT % 82.4 % (16.0-70.0); PLATELET COUNT 313 TH/MM3 (150-450); RED BLOOD COUNT 3.29 MIL/MM3 (4.50-5.90); RED CELL DISTRIBUTION WIDTH 14.8 % (11.6-17.2); WHITE BLOOD COUNT 12.6 TH/MM3 (4.0-11.0)
[2017-09-23 07:12] LABS: ALBUMIN 2.1 GM/DL (3.4-5.0); AST (GOT) 37 U/L (15-37); BICARBONATE 29.9 MEQ/L (21.0-32.0); BLOOD UREA NITROGEN 33 MG/DL (7-18); CALCIUM 8.6 MG/DL (8.5-10.1); CHLORIDE 107 MEQ/L (98-107); GLOMERULAR FILTRATION RATE 62 ML/MIN (>89); GLUCOSE,RANDOM 164 MG/DL (74-106); SODIUM (NA) 143 MEQ/L (136-145)
[2017-09-23 07:29] LABS: ALKALINE PHOSPHATASE 80 U/L (45-117); ALT (GPT) 80 U/L (12-78); TOTAL BILIRUBIN ADULT 0.3 MG/DL (0.2-1.0); TOTAL PROTEIN 6.4 GM/DL (6.4-8.2)
[2017-09-23 08:42] LABS: BANDS 4 % (0-6); BASOPHILS 1 % (0-2); LYMPHOCYTES 5 % (9-44); MONOCYTES 4 % (0-8); MYELOCYTES 4 % (0-0); NEUTROPHIL # MANUAL DIFF 10.8 TH/MM3 (1.8-7.7); POLYS (SEG NEUTROPHILS) 78 % (16-70)
[2017-09-23] MEDS: CHLORHEXIDINE 0.12% (ORAL KIT) 15 ML CUP MT SCH ×2 (08:59→20:41)
[2017-09-23] MEDS: FAMOTIDINE 20 MG TAB NG SCH ×2 (09:00→20:42)
[2017-09-23] MEDS: DOCUSATE SODIUM 50 MG/SENNA 8.6 MG TAB PO SCH ×2 (09:00→20:42)
[2017-09-23] MEDS: POLYETHYLENE GLYCOL 17 GM PKG PO SCH ×2 (09:00→20:42)
[2017-09-23] MEDS: FLUTICASONE PROPIONATE 50 MCG/ACT 16 GM NASAL SPRAY EACH NARE SCH (09:00)
[2017-09-23] MEDS: INSULIN DETEMIR 100 UNITS/ML VIAL SQ SCH ×2 (09:00→21:18)
[2017-09-23] MEDS: HEPARIN SODIUM - SQ 10,000 UNITS/ML VIAL SQ SCH ×2 (09:01→20:41)
[2017-09-23] MEDS: SODIUM CHLORIDE 23.4% INJ 38.5 MEQ in WATER STERILE FOR INJ 1,000 ML IV SCH (09:02)
--- NOTE | 2017-09-23 09:49 | HHI.NSPN ---
(RamaJames) History Chief Complaint: Unable to obtain due to patient's clinical condition. (RamaJames) Interval History 08/29: History of hypertension who was brought to the emergency room per [facility] after being found with altered mental status, right hemiparesis. He had reportedly been seen to be normal approximately 3-1/2 hours prior. Systolic blood pressure greater than 260/130 on initial evaluation. No seizure activity reported. Positive emesis. Per emergency room personnel the patient was responding verbally, difficulty raising his right arm upon initial arrival. He was intubated in the emergency room and a stat CT scan accomplished which has revealed a primarily left thalamic intracranial hemorrhage. 09/01/17: Patient remains intubated and sedated. 09/02: intubated and well sedated, not tolerating sedation vacation due to increase in blood pressure. 09/03/17: Remains on propofol and fentanyl IV for ventilator control. Positive agitation with decreased sedation 09/04/17: Pt sedated on Diprivan and Fentanyl drip. Not following commands. Pt on Cardene drip. Intubated. 09/05/17: Pt sedated on Diprivan and Fentanyl drip. Not following commands. Pt on Cardene drip. Intubated. Pupils 2mm bilaterally, NR bilaterally. 09/06/17: Remains intubated. PEG tube placed today. On Decadron and Benadryl for angioedema. Lisinopril discontinued 09/07. The patient is obtunded but is sedated with propofol. Nursing reports that the patient does have bleeding secondary to his PEG tube being placed yesterday. The family reports that the plan is to do a tracheostomy tomorrow. Nursing does say the patient does withdraw to stimulation, has a cough and gag reflex but his pupils are nonreactive. 09/10: The patient continues to be obtunded although he has sedation infusing at a low dose. He is trached and tolerating a CPAP trial. 09/13: Obtunded versus lethargic. He is not on any sedation. He is trached and mechanically ventilated. He went for a CT brain this morning. Nursing reports that the patient does withdraw to noxious stimulation and that the pupils are sluggish. 09/14: The patient has his eyes open when seen. He continues to be trached and mechanically ventilated. Nursing this morning reports that the patient gave a thumbs up on the left hand to command for him. 09/15: Pt off sedative drips. Pupils 2mm bilaterally slight reaction bilaterally. Not following commands. Not opening eyes. 09/16: When seen this morning the patient appears lethargic. He is trached and on T-piece. Nursing reports that the patient was more alert and did give a thumbs up to command this morning prior to receiving diphenhydramine. He also reported no movement to the right side. 09/17: No acute events overnight. Patient up in chair 09/18: No acute events overnight. Patient remains hypertensive. He is in bed with at his side. 09/19: Persistent hypertension overnight. 09/20/2017: Tracheostomy in place. Upper endoscopy performed 09/19/17 with findings of small amount of bleeding at the PEG site. 09/22: The patient is awake when seen. He does interact. 09/23: This morning the patient does have his eyes closed but opens them to voice. He does follow commands with the left side extremities and it appears he does track. (James Ontiveros) System Review Comments Unable to obtain due to patient's clinical condition. (James Ontiveros) Exam Results 09/21/17 09/21/17 09/22/17 09/22/17 09/23/17 09/23/17 06:00 18:00 06:00 18:00 06:00 18:00 Intake Total 1667 ml 2107 ml 1393 ml 2244 ml 2021 ml 1000 ml Output Total 1100 ml 1250 ml 1700 ml 1400 ml 1400 ml Balance 567 ml 857 ml -307 ml 844 ml 621 ml 1000 ml IV Total 645 ml 504 ml 540 ml 1000 ml Tube Feeding 967 ml 962 ml 493 ml 720 ml 581 ml Tube Irrigant 120 ml Other 700 ml 500 ml 900 ml 900 ml 900 ml Output Urine Total 1100 ml 1250 ml 1700 ml 1400 ml 1400 ml # Bowel Movements 2 2 2 1 2 Vital Signs Date Time Temp Pulse Resp B/P (MAP) Pulse Ox O2 Delivery O2 Flow Rate FiO2 09/23/17 06:00 78 09/23/17 04:00 78 09/23/17 04:00 98.8 78 20 161/88 (112) 100 09/23/17 02:00 80 09/23/17 00:00 99.8 78 15 144/77 (99) 100 09/23/17 00:00 78 09/22/17 22:28 100 T-piece 5.00 28 09/22/17 22:00 80 09/22/17 20:00 98.7 80 16 161/85 (110) 100 09/22/17 20:00 80 09/22/17 19:00 100 T-Piece 28 09/22/17 16:00 99.2 82 21 134/75 (94) 100 09/22/17 12:00 99.2 80 15 142/82 (102) 100 09/22/17 09:11 100 T-piece 5.00 28 09/22/17 08:00 80 09/22/17 08:00 T-Piece 28 09/22/17 08:00 99.2 76 15 129/75 (93) 100 09/22/17 06:00 78 09/22/17 04:00 82 09/22/17 04:00 99.2 78 16 165/86 (112) 100 09/22/17 02:00 78 09/22/17 00:00 84 09/22/17 00:00 99.2 84 14 161/74 (103) 100 09/21/17 22:00 86 09/21/17 21:21 100 T-piece 6.00 28 09/21/17 20:00 72 09/21/17 20:00 99.2 72 14 152/88 (109) 100 09/21/17 19:00 100 T-Piece 28 09/21/17 18:00 72 09/21/17 16:00 98.6 74 14 132/75 (94) 100 09/21/17 16:00 75 09/21/17 14:00 70 09/21/17 12:00 98.7 72 14 127/69 (88) 100 09/21/17 12:00 73 09/21/17 10:00 65 09/21/17 08:25 99 T-piece 5.00 28 09/21/17 08:00 68 09/21/17 08:00 98.9 69 14 142/83 (102) 100 09/21/17 07:00 99 T-Piece 28 09/21/17 06:00 74 09/21/17 04:00 68 09/21/17 04:00 98.4 68 15 170/96 (120) 100 09/21/17 03:50 96 30 09/21/17 02:00 70 09/21/17 00:00 98.9 68 14 147/78 (101) 97 09/21/17 00:00 68 09/20/17 22:00 70 09/20/17 20:33 98 T-piece 6.00 28 09/20/17 20:00 98.4 68 14 151/88 (109) 99 09/20/17 20:00 68 09/20/17 19:00 99 T-Piece 28 09/20/17 18:00 72 09/20/17 16:00 98.7 67 14 146/82 (103) 95 09/20/17 16:00 72 09/20/17 14:00 72 09/20/17 12:00 98.7 67 14 146/82 (103) 95 09/20/17 12:00 67 09/20/17 10:00 68 (James Ontiveros) Physical Examination GENERAL: Asleep but awakens to voice, then alert, interacts, no evident distress. HEENT: Normocephalic, atraumatic. Left pupil 4 mm & right pupil 5 mm, slight reaction, does appear to track. Edematous tongue protruding from oral cavity. MUSCULOSKELETAL: Moves left-sided extremities, no evident clubbing or deformity. NEUROLOGICAL: Asleep, but awakens to voice & alert after that. Left pupil 4 mm & right pupil 5 mm, slight reaction, does appear to track. Persistent disconjugate extraocular movements. Nonverbal, trached. Grasps with left hand and moves left foot to command, lifts both left-sided extremities off bed. No movement of right extremities to noxious stimulation but does have facial grimacing. (James Ontiverso) Lab, Micro, Other Results Laboratory Tests Test 09/21/17 06:20 09/22/17 05:50 09/23/17 05:21 Blood Urea Nitrogen 43 MG/DL 38 MG/DL 33 MG/DL Creatinine 1.70 MG/DL 1.60 MG/DL 1.50 MG/DL Random Glucose 156 MG/DL 169 MG/DL 164 MG/DL Calcium Level 8.0 MG/DL 8.7 MG/DL 8.6 MG/DL Sodium Level 146 MEQ/L 147 MEQ/L 143 MEQ/L Potassium Level 5.3 MEQ/L 3.5 MEQ/L 3.7 MEQ/L Chloride Level 114 MEQ/L 111 MEQ/L 107 MEQ/L Carbon Dioxide Level 21.4 MEQ/L 30.3 MEQ/L 29.9 MEQ/L Anion Gap 11 MEQ/L 6 MEQ/L 6 MEQ/L Estimat Glomerular Filtration Rate 53 ML/MIN 57 ML/MIN 62 ML/MIN White Blood Count 12.6 TH/MM3 Red Blood Count 3.29 MIL/MM3 Hemoglobin 8.8 GM/DL Hematocrit 27.3 % Mean Corpuscular Volume 82.9 FL Mean Corpuscular Hemoglobin 26.6 PG Mean Corpuscular Hemoglobin Concent 32.1 % Red Cell Distribution Width 14.8 % Platelet Count 313 TH/MM3 Mean Platelet Volume 11.2 FL Neutrophils (%) (Auto) 82.4 % Lymphocytes (%) (Auto) 8.6 % Monocytes (%) (Auto) 7.0 % Eosinophils (%) (Auto) 1.5 % Basophils (%) (Auto) 0.5 % Neutrophils # (Auto) 10.3 TH/MM3 Lymphocytes # (Auto) 1.1 TH/MM3 Monocytes # (Auto) 0.9 TH/MM3 Eosinophils # (Auto) 0.2 TH/MM3 Basophils # (Auto) 0.1 TH/MM3 CBC Comment AUTO DIFF Differential Total Cells Counted 100 Neutrophils % (Manual) 78 % Band Neutrophils % 4 % Lymphocytes % 5 % Monocytes % 4 % Eosinophils % 4 % Basophils % 1 % Neutrophils # (Manual) 10.8 TH/MM3 Myelocytes 4 % Differential Comment FINAL DIFF MANUAL Platelet Estimate NORMAL Platelet Morphology Comment ENLARGED Total Protein 6.4 GM/DL Albumin 2.1 GM/DL Alkaline Phosphatase 80 U/L Aspartate Amino Transf (AST/SGOT) 37 U/L Alanine Aminotransferase (ALT/SGPT) 80 U/L Total Bilirubin 0.3 MG/DL (James Ontiveros) Medical Decision Making Impression and Plan Impression: 1. Large thalamic intracranial hemorrhage. 2. Hypertension 3. Klebsiella pneumonia Awake & alert, improving mental status, following commands with left side, appears to have right hemiplegia. CT brain w/improvement of left thalamic haemorrhage, decreased midline shift, blood noted in posterior horns, no acute findings. Reviewed labs for today. Slight increase in leukocytosis. Sodium 143. 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 Neuro checks. Stat CT brain for any decline in neuro status. Abx per Infectious Disease. Palliative Care consult. Continue full supportive care measures per family. (James Ontiveros) Attending Statement The exam, history, and the medical decision-making described in the above note were completed with the assistance of the mid-level provider. I reviewed and agree with the findings presented. I attest that I had a [id number] encounter with the patient on the same day, and personally performed and documented my assessment and findings in the medical record. On my examination today the patient is awake and relatively alert. He continues to have moderate left greater than right gaze, persistent disconjugate. He moves the left upper and lower extremity moderate to command. Not following commands on the right side. He is sitting up in a chair with stable vital signs Continues to exhibit slow gradual improvement in level of consciousness. Discussed with patient and family room today. Continue therapy No neurosurgical intervention anticipated at this point We will follow intermittently while he is in the hospital. (Orville Tinajero MD) James Ontiveros Sep 23, 2017 09:49 Orville Tinajero MD Sep 23, 2017 18:26
--- NOTE | 2017-09-23 14:03 | HHI.CCPN ---
Subjective Remarks/Hospital Course Hospital Course: 46 y/o man with longstanding hypertension and previous CVA presents obtunded with new neurological symptoms noticed prior to arrival. Timeline unclear. Required intubation in ED for airway protection. CT head shows left thalamic bleed and shift away from bleed. Toxicology screen pending. Subjective: 08/30: encephalopathy persists. bp under better control, still on cardene. on sedation vacation, moves left side spontaneously but nothing on right. 08/31: overnight, severely agitated, requiring high dose sedation. also, lambert obstructed, new lambert placed with improvement in obstruction. this morning, RAFAELA with Cr up to 3. urine Na < 10, suggestive of pre-renal etiology. continued ivf. high peak pressures on vent. suction lavage with thick tenacious secretions. bronch with left lobe mucous plugging. bronchospasm a significant problem requiring iv magnesium and duonebs. finally attempted small paralytic dose with improvement in abdominal breathing and fighting ventilator. 09/01: No improvement in neuro exam, intermittent jerking movements noted by the RN no seizure. Creatinine for urine output adequate. I have consulted nephrology. We'll check CT of the head repeat EEG tomorrow a.m. 09/02: Clinically remains same. Did not tolerate sedation vacation, became hypertensive. CT head today showed slight improvement in L thalamic and IVH. Dr. Tinajero is the neurosurgeon, Dr. Jhaveri covering 09/03: Still unable to tolerate sedation vacation. Becomes very asynchronous with the vent with desaturations. Discussed with daughters about possible tracheostomy, they want to discuss with their mom, patient's ex -. Creatinine has worsened to 5.1 but no acute indication for dialysis. Will check ABG urine output 1.8 L in 24 hours 09/04: Remains intubated sedated synchronous with the vent. Noted to have tongue swelling/angioedema. Lisinopril discontinued. Placed on Decadron and IV Benadryl. Plan for tracheostomy and PEG tube placement next week 09/05: Patient remains intubated sedated critically ill. No change or improvement in neuro status. Lisinopril discontinued yesterday Decadron and Benadryl started tongue swelling is improved. Hyperglycemia secondary to Decadron, random blood sugar 360. Will wean to DC. Plan for trach and PEG this week, if family agreeable 09/06: Angioedema improving with Decadron and Benadryl. Still gets very agitated with sedation lightening. Needs improved blood pressure control increase clonidine to 0.3 every 8 hours. Plan for PEG today and Trach 09/08/1709/07: Stable overnight, except bleeding/oozing from the PEG site. We'll give single dose of nasal DDAVP. Creatinine slightly improved to 4.4, urine output 3.9 L in 24 hours. Plan for tracheostomy 09/08/17. 09/08: Tracheostomy completed. Tongue edema unchanged. 09/09: Tolerating spontaneous respiration on trach. Tongue edema persists. 09/10: Tolerating progression to trach collar today. 09/11: t-piece x 24h. still not waking up and encephalopathic. however, not agitated. still hypertensive, tachycardic. will need placement. Cr continues to improve. still hypernatremic. 09/12: delayed note entry. seen around 1300 on 09/12. wbc slightly up, fever curve uptrending, but has history of fevers likely from thalamic stroke. sputum , urine cultures sent at 0600. will await these results before deciding further courses of action. still on t-piece and no overall clinical change. 09/13: Overnight events noted, febrile to 105, with tremor, clonus, rigidity. given dantrolene for possible NMS by Dr. Asif and stopped Haldol and Seroquel. Provigil also stop due to possibility of serotonin syndrome. Patient was started on Zosyn and vancomycin and panculture sent, and placed on full vent support due to tachypnea. Temp came down to 101 (his baseline) after dantrolene one dose. On my exam at this time patient does not have a rigidity and blood temperatures 101. Nursing staff reports thick yellow secretions, chest x-ray shows possible left lower lobe infiltrate. WBC increased from 15.5 to 23.3. I will get the CT of the chest to evaluate for lung infiltrate and also CT abdomen and pelvis to rule out any intra-abdominal source of sepsis. Hold off on Ativan at this time. Patient is also getting a CT of the head 09/14: Patient continues to spike fever but at baseline. WBC count is trending down (23.3 to 18.4). Sputum culture growing Klebsiella. Opens eyes spontaneously today. Weakly give thumbs up to the RN (I did not witness it) 09/15: Continues to spike fever, appreciate ID consult. I have ordered venous ultrasound of all extremities. Also check CT of the sinuses rule out sinusitis and also evaluate for transient swelling pharyngeal/retropharyngeal abscesses. ENT consulted for persistent angioedema 09/16: On CPAP. Eyes open. Following commands on LUE. Bilateral cephalic vein thrombus, occlusive on Left. CT face shows pansinusitis and mastoiditis. ENT has seen for persistent angioedema and tongue swelling official consult pending 09/17: Sitting up in stretcher chair today, tracking intermittently follows commands on LUE (gives thumbs up). Fever trending down. Angio edema improving. Chest x-ray shows persistent left lower lobe consolidation 09/18: no changes. cpap at night, trach collar during the day. blood glucoses > 300. 09/19: been on t-piece x 24h. hypernatremia persists. glucose somewhat better, but remains consistently > 200 despite increased regimen. 09/20: Change D5W to 1/4 NS to correct hyperglycemia. 09/21: Remains on T piece. Tolerating tube feeds. 09/22: Remains on T piece. Tolerating tube feeds. Hyperkalemia improved with Kayexalate yesterday. 09/23: Renal function continues to improve. No change in neurological function. Objective Vital Signs Date Time Temp Pulse Resp B/P (MAP) Pulse Ox O2 Delivery O2 Flow Rate FiO2 09/23/17 13:00 99.5 80 15 134/76 (95) 100 09/23/17 08:12 T-piece 5.00 28 Intake and Output 09/23/17 09/23/17 09/24/17 08:00 16:00 00:00 Intake Total 2021 ml 1000 ml Output Total 1400 ml Balance 621 ml 1000 ml Result Diagram: 09/23/1752009/23/17520 Objective Remarks Gen: Middle-aged male, lying in bed, encephalopathic Head: Atraumatic. Conjunctivae clear. ENT: Tongue swollen/angioedema with laceration from bite, stable Neck: trach site clean, dry. Lungs: On TP. equal chest rise. Heart: RR. Intermittently hypertensive. Abdomen: Mildly distended. PEG site clean. Extremities: Warm, well perfused. Neuro: Opens eyes spontaneously today, following commands LUE by giving thumbs up. w/d to pain left UE and bilateral LE. pupils equal, round A/P Problem List: (1) Intracranial hemorrhage ICD Code: I62.9 - Nontraumatic intracranial hemorrhage, unspecified Status: Acute (2) Hemorrhagic stroke ICD Code: I61.9 - Nontraumatic intracerebral hemorrhage, unspecified Status: Acute (3) Hypertensive emergency ICD Code: I10 - Hypertensive emergency Status: Acute Assessment and Plan Assessment: 46yM with left thalamic hypertensive hemorrhagic IPH, ICH score 2. slowly improving neurologically. Needs placement. Fever down trending. Angioedema slowly improving. glycemic control remains a problem, as does hypernatremia. Active Problems: Acute encephalopathy - resolving. Left Thalamic Hemorrhage, with IV extension Intracerebral Hemorrhage, ICH score 2 Respiratory failure s/p trach - improving. Pansinusitis, Mastoiditis Bilateral upper extremity superficial thrombophlebitis 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 - slightly improved. Hyperglycemia - persistent. Hypertension Hypernatremia - persistent. Hypoactive delirium - resolving. Healthcare associated pneumonia with Klebsiella- resolved. Sepsis - resolved. Possible NMS - resolved. Fever central vs infectious - resolved. Hypertensive Emergency- resolved. Agitated Delirium - resolved. Plan: NEURO: - Seroquel and Haldol discontinued due to possible NMS - oxy 5mg po q6h prn. - propranolol 40mg po q6h - continue clonidine 0.3 mg tid - Repeat CT of the head showed improving bleed RESP: -Tolerating T piece - CT of the chest 09/13/17 -LLL infiltrate - Broad-spectrum antibiotics as below - DuoNeb every 6 hours scheduled and when necessary, ventilator bundle - CT face shows pansinusitis and mastoiditis - ENT consulted for persistent angioedema and sinusitis-appreciate input CVS: - Intermittent hypertension now well controlled - Continue clonidine, amlodipine and propranolol - increase hydralazine to 100mg po q8hr. GI: - Status post PEG tube continue tube feeds - Having bowel movements - increased Free water 300mL per tube q4h add free water 1/4 NS @ 42 mL/hr. f/u daily sodium levels. - Pepcid per tube /RENAL: - continue Lambert catheter given prior urinary obstruction and resolving rafaela - Nephrology following, creatinine stable ID - New sepsis with high white count and high fever, most likely secondary to pneumonia - CT maxillofacial shows pansinusitis and mastoiditis, also upper extremity superficial thrombophlebitis on both contributing to fever - ID consult appreciated - ENT consulted for persistent angioedema -Off Decadron(09/20)and Benadryl(09/18), continue Flonase -Zosyn stopped (09-13 to 09-20). Monitor clinically for any recurrence of sepsis. - Klebsiella pneumonia HEME: - Leukocytosis secondary to probable sepsis - improving. MSK: - OOB to stretcher chair daily - PT/OT following ENDO: -Continue Levemir again to 20 units SQ q12h - continue high scale q4h ssi. PROPH: - sqh 5000 q12h (2 weeks post bleed, stable). Pepcid for GI prophylaxis Consult and transfer to hospitalist service for further medical management. Ordered transfer out of ICU. Jack Farmer MD Sep 23, 2017 14:03
[2017-09-23] MEDS: ATORVASTATIN 40 MG TAB PO SCH (20:40)
[2017-09-24] VITALS (13 sets, daily range): BP systolic 118–154; BP diastolic 63–80; PULSE 72–87; RESP 11–21; TEMP 97.8–99.9; O2SAT 97–100
[2017-09-24] MEDS: PROPRANOLOL HCL 40 MG TAB PO SCH ×4 (00:30→17:28)
[2017-09-24] MEDS: INSULIN NovoLIN REGULAR SUPPLEMENTAL SCALE SQ SCH ×6 (00:38→20:00)
[2017-09-24] MEDS: CHLORHEXIDINE GLUCONATE 2 % 1 PACK (2 CLOTHS) TOP SCH (04:00)
[2017-09-24] MEDS: cloNIDine HCL 0.3 MG TAB PO SCH ×3 (05:06→22:00)
[2017-09-24] MEDS: SODIUM CHLORIDE 23.4% INJ 38.5 MEQ in WATER STERILE FOR INJ 1,000 ML IV SCH (05:06)
[2017-09-24] MEDS: LABETALOL HCL 300 MG TAB PEG SCH ×3 (05:06→22:26)
[2017-09-24] MEDS: FREE WATER G-TUBE SCH ×6 (05:06→20:00)
[2017-09-24] MEDS: hydrALAZINE HCL 100 MG TAB PO SCH ×3 (05:06→22:24)
[2017-09-24] MEDS: CHLORHEXIDINE 0.12% (ORAL KIT) 15 ML CUP MT SCH ×2 (08:00→20:00)
--- NOTE | 2017-09-24 08:59 | HHI.NSPN ---
(RamaJames) History Chief Complaint: Unable to obtain due to patient's clinical condition. (RamaJames) Interval History 08/29: History of hypertension who was brought to the emergency room per [facility] after being found with altered mental status, right hemiparesis. He had reportedly been seen to be normal approximately 3-1/2 hours prior. Systolic blood pressure greater than 260/130 on initial evaluation. No seizure activity reported. Positive emesis. Per emergency room personnel the patient was responding verbally, difficulty raising his right arm upon initial arrival. He was intubated in the emergency room and a stat CT scan accomplished which has revealed a primarily left thalamic intracranial hemorrhage. 09/01/17: Patient remains intubated and sedated. 09/02: intubated and well sedated, not tolerating sedation vacation due to increase in blood pressure. 09/03/17: Remains on propofol and fentanyl IV for ventilator control. Positive agitation with decreased sedation 09/04/17: Pt sedated on Diprivan and Fentanyl drip. Not following commands. Pt on Cardene drip. Intubated. 09/05/17: Pt sedated on Diprivan and Fentanyl drip. Not following commands. Pt on Cardene drip. Intubated. Pupils 2mm bilaterally, NR bilaterally. 09/06/17: Remains intubated. PEG tube placed today. On Decadron and Benadryl for angioedema. Lisinopril discontinued 09/07. The patient is obtunded but is sedated with propofol. Nursing reports that the patient does have bleeding secondary to his PEG tube being placed yesterday. The family reports that the plan is to do a tracheostomy tomorrow. Nursing does say the patient does withdraw to stimulation, has a cough and gag reflex but his pupils are nonreactive. 09/10: The patient continues to be obtunded although he has sedation infusing at a low dose. He is trached and tolerating a CPAP trial. 09/13: Obtunded versus lethargic. He is not on any sedation. He is trached and mechanically ventilated. He went for a CT brain this morning. Nursing reports that the patient does withdraw to noxious stimulation and that the pupils are sluggish. 09/14: The patient has his eyes open when seen. He continues to be trached and mechanically ventilated. Nursing this morning reports that the patient gave a thumbs up on the left hand to command for him. 09/15: Pt off sedative drips. Pupils 2mm bilaterally slight reaction bilaterally. Not following commands. Not opening eyes. 09/16: When seen this morning the patient appears lethargic. He is trached and on T-piece. Nursing reports that the patient was more alert and did give a thumbs up to command this morning prior to receiving diphenhydramine. He also reported no movement to the right side. 09/17: No acute events overnight. Patient up in chair 09/18: No acute events overnight. Patient remains hypertensive. He is in bed with at his side. 09/19: Persistent hypertension overnight. 09/20/2017: Tracheostomy in place. Upper endoscopy performed 09/19/17 with findings of small amount of bleeding at the PEG site. 09/22: The patient is awake when seen. He does interact. 09/23: This morning the patient does have his eyes closed but opens them to voice. He does follow commands with the left side extremities and it appears he does track. 09/24: When seen the patient is awake and looks towards my voice. He does follow commands on the left and appears to track with the eyes. No movement of the right noted. (James Ontiveros) System Review Comments Unable to obtain due to patient's clinical condition. (James Ontiveros) Exam Results 09/22/17 09/22/17 09/23/17 09/23/17 09/24/17 09/24/17 06:00 18:00 06:00 18:00 06:00 18:00 Intake Total 1393 ml 2244 ml 2021 ml 1316 ml 3705 ml Output Total 1700 ml 1400 ml 1400 ml 3000 ml Balance -307 ml 844 ml 621 ml 1316 ml 705 ml IV Total 504 ml 540 ml 1316 ml Tube Feeding 493 ml 720 ml 581 ml 1806 ml Tube Irrigant 120 ml Other 900 ml 900 ml 900 ml 1899 ml Output Urine Total 1700 ml 1400 ml 1400 ml 3000 ml # Bowel Movements 2 1 2 2 Vital Signs Date Time Temp Pulse Resp B/P (MAP) Pulse Ox O2 Delivery O2 Flow Rate FiO2 09/24/17 08:45 100 T-piece 5.00 28 09/24/17 06:00 78 09/24/17 04:00 78 09/24/17 04:00 99.8 79 16 140/77 (98) 100 09/24/17 02:00 72 09/24/17 00:00 97.8 81 18 154/80 (104) 100 09/24/17 00:00 81 09/23/17 22:00 79 09/23/17 21:05 100 T-piece 5.00 28 09/23/17 20:00 98.5 80 26 137/80 (99) 100 09/23/17 20:00 80 09/23/17 19:00 100 T-Piece 28 Humidified 09/23/17 18:00 81 09/23/17 18:00 81 17 140/75 (96) 100 09/23/17 17:00 81 14 132/71 (91) 100 09/23/17 16:00 99.2 77 15 103/57 (72) 100 09/23/17 16:00 77 09/23/17 15:00 75 16 98/66 (77) 100 09/23/17 14:00 77 14 123/72 (89) 100 09/23/17 14:00 77 09/23/17 13:00 77 16 123/72 (89) 100 09/23/17 13:00 99.5 80 15 134/76 (95) 100 09/23/17 12:00 80 09/23/17 12:00 80 15 145/82 (103) 100 09/23/17 11:00 76 16 158/83 (108) 100 09/23/17 10:00 72 13 138/75 (96) 100 09/23/17 10:00 72 09/23/17 09:00 72 15 128/56 (80) 100 09/23/17 08:12 100 T-piece 5.00 28 09/23/17 08:00 99.3 72 15 115/58 (77) 100 09/23/17 08:00 99 T-Piece 28 09/23/17 08:00 72 09/23/17 07:00 74 13 124/68 (86) 100 09/23/17 06:00 78 09/23/17 04:00 78 09/23/17 04:00 98.8 78 20 161/88 (112) 100 09/23/17 02:00 80 09/23/17 00:00 99.8 78 15 144/77 (99) 100 09/23/17 00:00 78 09/22/17 22:28 100 T-piece 5.00 28 09/22/17 22:00 80 09/22/17 20:00 98.7 80 16 161/85 (110) 100 09/22/17 20:00 80 09/22/17 19:00 100 T-Piece 28 09/22/17 16:00 99.2 82 21 134/75 (94) 100 09/22/17 12:00 99.2 80 15 142/82 (102) 100 09/22/17 09:11 100 T-piece 5.00 28 09/22/17 08:00 80 09/22/17 08:00 T-Piece 28 09/22/17 08:00 99.2 76 15 129/75 (93) 100 09/22/17 06:00 78 09/22/17 04:00 82 09/22/17 04:00 99.2 78 16 165/86 (112) 100 09/22/17 02:00 78 09/22/17 00:00 84 09/22/17 00:00 99.2 84 14 161/74 (103) 100 09/21/17 22:00 86 09/21/17 21:21 100 T-piece 6.00 28 09/21/17 20:00 72 09/21/17 20:00 99.2 72 14 152/88 (109) 100 09/21/17 19:00 100 T-Piece 28 09/21/17 18:00 72 09/21/17 16:00 98.6 74 14 132/75 (94) 100 09/21/17 16:00 75 09/21/17 14:00 70 09/21/17 12:00 98.7 72 14 127/69 (88) 100 09/21/17 12:00 73 09/21/17 10:00 65 (James Ontiveros) Physical Examination GENERAL: Awake, looks toward practitioner's voice, interacts, no evident distress. HEENT: Normocephalic, atraumatic. Left pupil 4 mm & right pupil 5 mm, slight reaction, disconjugate gaze, does appear to track. Edematous tongue improving. MUSCULOSKELETAL: Moves left-sided extremities, apparent right hemiplegia, no evident clubbing or deformity. NEUROLOGICAL: Awake & alert. Left pupil 4 mm & right pupil 5 mm, slight reaction, does appear to track. Persistent disconjugate extraocular movements. Nonverbal, trached. Grasps with left hand and moves left foot to command, lifts both left-sided extremities off bed. No movement of right extremities to noxious stimulation but does have facial grimacing. (James Ontiveros) Lab, Micro, Other Results Laboratory Tests Test 09/22/17 05:50 09/23/17 05:21 Blood Urea Nitrogen 38 MG/DL 33 MG/DL Creatinine 1.60 MG/DL 1.50 MG/DL Random Glucose 169 MG/DL 164 MG/DL Calcium Level 8.7 MG/DL 8.6 MG/DL Sodium Level 147 MEQ/L 143 MEQ/L Potassium Level 3.5 MEQ/L 3.7 MEQ/L Chloride Level 111 MEQ/L 107 MEQ/L Carbon Dioxide Level 30.3 MEQ/L 29.9 MEQ/L Anion Gap 6 MEQ/L 6 MEQ/L Estimat Glomerular Filtration Rate 57 ML/MIN 62 ML/MIN White Blood Count 12.6 TH/MM3 Red Blood Count 3.29 MIL/MM3 Hemoglobin 8.8 GM/DL Hematocrit 27.3 % Mean Corpuscular Volume 82.9 FL Mean Corpuscular Hemoglobin 26.6 PG Mean Corpuscular Hemoglobin Concent 32.1 % Red Cell Distribution Width 14.8 % Platelet Count 313 TH/MM3 Mean Platelet Volume 11.2 FL Neutrophils (%) (Auto) 82.4 % Lymphocytes (%) (Auto) 8.6 % Monocytes (%) (Auto) 7.0 % Eosinophils (%) (Auto) 1.5 % Basophils (%) (Auto) 0.5 % Neutrophils # (Auto) 10.3 TH/MM3 Lymphocytes # (Auto) 1.1 TH/MM3 Monocytes # (Auto) 0.9 TH/MM3 Eosinophils # (Auto) 0.2 TH/MM3 Basophils # (Auto) 0.1 TH/MM3 CBC Comment AUTO DIFF Differential Total Cells Counted 100 Neutrophils % (Manual) 78 % Band Neutrophils % 4 % Lymphocytes % 5 % Monocytes % 4 % Eosinophils % 4 % Basophils % 1 % Neutrophils # (Manual) 10.8 TH/MM3 Myelocytes 4 % Differential Comment FINAL DIFF MANUAL Platelet Estimate NORMAL Platelet Morphology Comment ENLARGED Total Protein 6.4 GM/DL Albumin 2.1 GM/DL Alkaline Phosphatase 80 U/L Aspartate Amino Transf (AST/SGOT) 37 U/L Alanine Aminotransferase (ALT/SGPT) 80 U/L Total Bilirubin 0.3 MG/DL (James Ontiveros) Medical Decision Making Impression and Plan Impression: 1. Large thalamic intracranial hemorrhage. 2. Hypertension 3. Klebsiella pneumonia The patient is stable neurologically with a persistent right hemiplegia. CT brain w/improvement of left thalamic haemorrhage, decreased midline shift, blood noted in posterior horns, no acute findings. Plan: Primary management per History Tutor. Neuro checks. Stat CT brain for any decline in neuro status. Abx per Infectious Disease. Palliative Care consult. Continue full supportive care measures per family. (James Ontiveros) Attending Statement The exam, history, and the medical decision-making described in the above note were completed with the assistance of the mid-level provider. I reviewed and agree with the findings presented. I attest that I had a [id number] encounter with the patient on the same day, and personally performed and documented my assessment and findings in the medical record. Patient remains relatively awake and alert. Tracts towards the left greater than right with disconjugate gaze. Follows commands with left upper extremity. Reviewed the patient with Dr. Palm who will be covering over the weekend. (Orville Tinajero MD) James Ontiveros Sep 24, 2017 08:59 Orville Tinajero MD Sep 27, 2017 20:25
[2017-09-24] MEDS: POLYETHYLENE GLYCOL 17 GM PKG PO SCH ×2 (09:00→20:34)
[2017-09-24] MEDS: FLUTICASONE PROPIONATE 50 MCG/ACT 16 GM NASAL SPRAY EACH NARE SCH (09:00)
[2017-09-24] MEDS: FAMOTIDINE 20 MG TAB NG SCH ×2 (09:14→20:43)
[2017-09-24] MEDS: DOCUSATE SODIUM 50 MG/SENNA 8.6 MG TAB PO SCH ×2 (09:14→20:34)
[2017-09-24] MEDS: HEPARIN SODIUM - SQ 10,000 UNITS/ML VIAL SQ SCH ×2 (09:15→20:43)
[2017-09-24] MEDS: INSULIN DETEMIR 100 UNITS/ML VIAL SQ SCH ×2 (09:15→22:24)
--- NOTE | 2017-09-24 13:30 | HHI.CCPN ---
Subjective Remarks/Hospital Course Hospital Course: 46 y/o man with longstanding hypertension and previous CVA presents obtunded with new neurological symptoms noticed prior to arrival. Timeline unclear. Required intubation in ED for airway protection. CT head shows left thalamic bleed and shift away from bleed. Toxicology screen pending. Subjective: 08/30: encephalopathy persists. bp under better control, still on cardene. on sedation vacation, moves left side spontaneously but nothing on right. 08/31: overnight, severely agitated, requiring high dose sedation. also, lambert obstructed, new lambert placed with improvement in obstruction. this morning, RAFAELA with Cr up to 3. urine Na < 10, suggestive of pre-renal etiology. continued ivf. high peak pressures on vent. suction lavage with thick tenacious secretions. bronch with left lobe mucous plugging. bronchospasm a significant problem requiring iv magnesium and duonebs. finally attempted small paralytic dose with improvement in abdominal breathing and fighting ventilator. 09/01: No improvement in neuro exam, intermittent jerking movements noted by the RN no seizure. Creatinine for urine output adequate. I have consulted nephrology. We'll check CT of the head repeat EEG tomorrow a.m. 09/02: Clinically remains same. Did not tolerate sedation vacation, became hypertensive. CT head today showed slight improvement in L thalamic and IVH. Dr. Tinajero is the neurosurgeon, Dr. Jhaveri covering 09/03: Still unable to tolerate sedation vacation. Becomes very asynchronous with the vent with desaturations. Discussed with daughters about possible tracheostomy, they want to discuss with their mom, patient's ex -. Creatinine has worsened to 5.1 but no acute indication for dialysis. Will check ABG urine output 1.8 L in 24 hours 09/04: Remains intubated sedated synchronous with the vent. Noted to have tongue swelling/angioedema. Lisinopril discontinued. Placed on Decadron and IV Benadryl. Plan for tracheostomy and PEG tube placement next week 09/05: Patient remains intubated sedated critically ill. No change or improvement in neuro status. Lisinopril discontinued yesterday Decadron and Benadryl started tongue swelling is improved. Hyperglycemia secondary to Decadron, random blood sugar 360. Will wean to DC. Plan for trach and PEG this week, if family agreeable 09/06: Angioedema improving with Decadron and Benadryl. Still gets very agitated with sedation lightening. Needs improved blood pressure control increase clonidine to 0.3 every 8 hours. Plan for PEG today and Trach 09/08/1709/07: Stable overnight, except bleeding/oozing from the PEG site. We'll give single dose of nasal DDAVP. Creatinine slightly improved to 4.4, urine output 3.9 L in 24 hours. Plan for tracheostomy 09/08/17. 09/08: Tracheostomy completed. Tongue edema unchanged. 09/09: Tolerating spontaneous respiration on trach. Tongue edema persists. 09/10: Tolerating progression to trach collar today. 09/11: t-piece x 24h. still not waking up and encephalopathic. however, not agitated. still hypertensive, tachycardic. will need placement. Cr continues to improve. still hypernatremic. 09/12: delayed note entry. seen around 1300 on 09/12. wbc slightly up, fever curve uptrending, but has history of fevers likely from thalamic stroke. sputum , urine cultures sent at 0600. will await these results before deciding further courses of action. still on t-piece and no overall clinical change. 09/13: Overnight events noted, febrile to 105, with tremor, clonus, rigidity. given dantrolene for possible NMS by Dr. Asif and stopped Haldol and Seroquel. Provigil also stop due to possibility of serotonin syndrome. Patient was started on Zosyn and vancomycin and panculture sent, and placed on full vent support due to tachypnea. Temp came down to 101 (his baseline) after dantrolene one dose. On my exam at this time patient does not have a rigidity and blood temperatures 101. Nursing staff reports thick yellow secretions, chest x-ray shows possible left lower lobe infiltrate. WBC increased from 15.5 to 23.3. I will get the CT of the chest to evaluate for lung infiltrate and also CT abdomen and pelvis to rule out any intra-abdominal source of sepsis. Hold off on Ativan at this time. Patient is also getting a CT of the head 09/14: Patient continues to spike fever but at baseline. WBC count is trending down (23.3 to 18.4). Sputum culture growing Klebsiella. Opens eyes spontaneously today. Weakly give thumbs up to the RN (I did not witness it) 09/15: Continues to spike fever, appreciate ID consult. I have ordered venous ultrasound of all extremities. Also check CT of the sinuses rule out sinusitis and also evaluate for transient swelling pharyngeal/retropharyngeal abscesses. ENT consulted for persistent angioedema 09/16: On CPAP. Eyes open. Following commands on LUE. Bilateral cephalic vein thrombus, occlusive on Left. CT face shows pansinusitis and mastoiditis. ENT has seen for persistent angioedema and tongue swelling official consult pending 09/17: Sitting up in stretcher chair today, tracking intermittently follows commands on LUE (gives thumbs up). Fever trending down. Angio edema improving. Chest x-ray shows persistent left lower lobe consolidation 09/18: no changes. cpap at night, trach collar during the day. blood glucoses > 300. 09/19: been on t-piece x 24h. hypernatremia persists. glucose somewhat better, but remains consistently > 200 despite increased regimen. 09/20: Change D5W to 1/4 NS to correct hyperglycemia. 09/21: Remains on T piece. Tolerating tube feeds. 09/22: Remains on T piece. Tolerating tube feeds. Hyperkalemia improved with Kayexalate yesterday. 09/23: Renal function continues to improve. No change in neurological function. 09/24: Neuro status remains unchanged. Remains on T piece. Tolerating PEG feeds. Awaiting transfer out of ICU since 09/22 Objective Vital Signs Date Time Temp Pulse Resp B/P (MAP) Pulse Ox O2 Delivery O2 Flow Rate FiO2 09/24/17 10:00 76 09/24/17 08:45 100 T-piece 5.00 28 09/24/17 08:00 99.3 15 121/65 (83) Intake and Output 09/24/17 09/24/17 09/25/17 08:00 16:00 00:00 Intake Total 1575 ml Output Total 2000 ml Balance -425 ml Result Diagram: 09/23/1752009/23/17520 Objective Remarks Gen: Middle-aged male, lying in bed, encephalopathic Head: Atraumatic. Conjunctivae clear. ENT: Tongue swollen/angioedema with laceration from bite, stable Neck: trach site clean, dry. Lungs: On TP. equal chest rise. Heart: RR. Intermittently hypertensive. Abdomen: Mildly distended. PEG site clean. Extremities: Warm, well perfused. Neuro: Opens eyes spontaneously, following commands LUE by giving thumbs up. w/ d to pain left UE and bilateral LE. pupils equal, round A/P Problem List: (1) Intracranial hemorrhage ICD Code: I62.9 - Nontraumatic intracranial hemorrhage, unspecified Status: Acute (2) Hemorrhagic stroke ICD Code: I61.9 - Nontraumatic intracerebral hemorrhage, unspecified Status: Acute (3) Hypertensive emergency ICD Code: I10 - Hypertensive emergency Status: Acute Assessment and Plan Assessment: 46yM with left thalamic hypertensive hemorrhagic IPH, ICH score 2. slowly improving neurologically. Needs placement. Fever down trending. Angioedema slowly improving. glycemic control remains a problem, as does hypernatremia. Active Problems: Acute encephalopathy - resolving. Left Thalamic Hemorrhage, with IV extension Intracerebral Hemorrhage, ICH score 2 Respiratory failure s/p trach - improving. Pansinusitis, Mastoiditis Bilateral upper extremity superficial thrombophlebitis 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 - slightly improved. Hyperglycemia - persistent. Hypertension Hypernatremia - persistent. Hypoactive delirium - resolving. Healthcare associated pneumonia with Klebsiella- resolved. Sepsis - resolved. Possible NMS - resolved. Fever central vs infectious - resolved. Hypertensive Emergency- resolved. Agitated Delirium - resolved. Plan: NEURO: - Seroquel and Haldol discontinued due to possible NMS - oxy 5mg po q6h prn. - propranolol 40mg po q6h - continue clonidine 0.3 mg tid - Repeat CT of the head showed improving bleed RESP: -Tolerating T piece - CT of the chest 09/13/17 -LLL infiltrate - Broad-spectrum antibiotics as below - DuoNeb every 6 hours scheduled and when necessary, ventilator bundle - CT face shows pansinusitis and mastoiditis - ENT consulted for persistent angioedema and sinusitis-appreciate input CVS: - Intermittent hypertension now well controlled - Continue clonidine, amlodipine and propranolol - increase hydralazine to 100mg po q8hr. GI: - Status post PEG tube continue tube feeds - Having bowel movements - increased Free water 300mL per tube q4h add free water 1/4 NS @ 42 mL/hr. f/u daily sodium levels. - Pepcid per tube /RENAL: - continue Lambert catheter given prior urinary obstruction and resolving rafaela - Nephrology following, creatinine stable ID - New sepsis with high white count and high fever, most likely secondary to pneumonia - CT maxillofacial shows pansinusitis and mastoiditis, also upper extremity superficial thrombophlebitis on both contributing to fever - ID consult appreciated - ENT consulted for persistent angioedema -Off Decadron(09/20)and Benadryl(09/18), continue Flonase -Zosyn stopped (09-13 to 09-20). Monitor clinically for any recurrence of sepsis. - Klebsiella pneumonia HEME: - Leukocytosis secondary to probable sepsis - improving. MSK: - OOB to stretcher chair daily - PT/OT following ENDO: -Continue Levemir again to 20 units SQ q12h - continue high scale q4h ssi. PROPH: - sqh 5000 q12h (2 weeks post bleed, stable). Pepcid for GI prophylaxis Consult and transfer to hospitalist service for further medical management. Ordered transfer out of ICU. Cesar Sanches MD Sep 24, 2017 13:30
[2017-09-24] MEDS ORDERED: MORPHINE SULFATE 2 MG/ML INJ IV PUSH PRN (16:30)
[2017-09-24] MEDS: ATORVASTATIN 40 MG TAB PO SCH (20:43)
[2017-09-25] VITALS (10 sets, daily range): BP systolic 114–147; BP diastolic 58–82; PULSE 80–88; RESP 17–21; TEMP 97.9–100.2; O2SAT 93–96
[2017-09-25] MEDS: PROPRANOLOL HCL 40 MG TAB PO SCH ×2 (00:35→05:26)
[2017-09-25] MEDS: INSULIN NovoLIN REGULAR SUPPLEMENTAL SCALE SQ SCH ×2 (00:35→04:09)
[2017-09-25] MEDS: FREE WATER G-TUBE SCH ×7 (04:00→23:31)
[2017-09-25] MEDS: CHLORHEXIDINE GLUCONATE 2 % 1 PACK (2 CLOTHS) TOP SCH (04:00)
[2017-09-25] MEDS ORDERED: POTASSIUM CHLORIDE 25 MEQ EFFERVESCENT TAB PO ONE (04:30)
[2017-09-25] MEDS ORDERED: METOPROLOL TARTRATE 25 MG TAB PO SCH (05:00)
[2017-09-25] MEDS: LABETALOL HCL 300 MG TAB PEG SCH (05:26)
[2017-09-25] MEDS: cloNIDine HCL 0.3 MG TAB PO SCH (05:27)
[2017-09-25] MEDS: hydrALAZINE HCL 100 MG TAB PO SCH (05:31)
[2017-09-25] MEDS: SODIUM CHLORIDE 23.4% INJ 38.5 MEQ in WATER STERILE FOR INJ 1,000 ML IV SCH (06:01)
[2017-09-25] MEDS: CHLORHEXIDINE 0.12% (ORAL KIT) 15 ML CUP MT SCH ×2 (08:00→20:48)
[2017-09-25 08:06] LABS: AUTOMATED NEUTROPHIL # 7.9 TH/MM3 (1.8-7.7); BASOPHIL # 0.1 TH/MM3 (0-0.2); BASOPHIL % 0.8 % (0.0-2.0); EOSINOPHIL # 0.1 TH/MM3 (0-0.4); EOSINOPHIL % 1.4 % (0.0-4.0); HEMATOCRIT 24.7 % (39.0-51.0); LYMPH % 14.5 % (9.0-44.0); LYMPHOCYTE # 1.5 TH/MM3 (1.0-4.8); MEAN CELL VOLUME 82.3 FL (80.0-100.0); MEAN CORPUSCULAR HEMOGLOBIN 26.8 PG (27.0-34.0); MEAN CORPUSCULAR HGB CONC 32.5 % (32.0-36.0); MEAN PLATELET VOLUME 10.9 FL (7.0-11.0); MONO % 7.2 % (0.0-8.0); MONOCYTE # 0.7 TH/MM3 (0-0.9); NEUT % 76.1 % (16.0-70.0); PLATELET COUNT 262 TH/MM3 (150-450); RED CELL DISTRIBUTION WIDTH 14.8 % (11.6-17.2); WHITE BLOOD COUNT 10.4 TH/MM3 (4.0-11.0)
[2017-09-25 08:14] LABS: ALBUMIN 2.1 GM/DL (3.4-5.0); AST (GOT) 36 U/L (15-37); BICARBONATE 26.1 MEQ/L (21.0-32.0); BLOOD UREA NITROGEN 31 MG/DL (7-18); CALCIUM 8.6 MG/DL (8.5-10.1); CHLORIDE 104 MEQ/L (98-107); CREATININE 1.34 MG/DL (0.60-1.30); GLOMERULAR FILTRATION RATE 70 ML/MIN (>89); GLUCOSE,RANDOM 142 MG/DL (74-106); SODIUM (NA) 137 MEQ/L (136-145)
[2017-09-25 08:17] LABS: ALKALINE PHOSPHATASE 69 U/L (45-117); ALT (GPT) 57 U/L (12-78); TOTAL BILIRUBIN ADULT 0.2 MG/DL (0.2-1.0); TOTAL PROTEIN 6.2 GM/DL (6.4-8.2)
[2017-09-25] MEDS: FLUTICASONE PROPIONATE 50 MCG/ACT 16 GM NASAL SPRAY EACH NARE SCH (09:00)
[2017-09-25] MEDS ORDERED: GLUCAGON 1 MG/ML VIAL OTHER PRN (09:30)
[2017-09-25] MEDS ORDERED: SODIUM CHLOR 0.45% 1000 ML INJ 1,000 ML IV SCH (10:00)
[2017-09-25] MEDS: FAMOTIDINE 20 MG TAB NG SCH ×2 (10:52→20:44)
[2017-09-25] MEDS: INSULIN DETEMIR 100 UNITS/ML VIAL SQ SCH ×2 (10:52→20:47)
[2017-09-25] MEDS: HEPARIN SODIUM - SQ 10,000 UNITS/ML VIAL SQ SCH ×2 (10:52→20:51)
[2017-09-25] MEDS: PROPRANOLOL HCL 40 MG TAB G-TUBE SCH ×3 (11:01→23:30)
[2017-09-25] MEDS ORDERED: METOPROLOL TARTRATE 25 MG TAB G-TUBE SCH (13:00)
[2017-09-25] MEDS: ACETAMINOPHEN 325 MG TAB G-TUBE PRN (13:15)
[2017-09-25] MEDS: QUEtiapine FUMARATE 25 MG TAB G-TUBE SCH ×2 (13:15→20:45)
[2017-09-25] MEDS: INSULIN ASPART SUPPLEMENTAL SCALE SQ SCH ×3 (13:16→23:30)
[2017-09-25] MEDS: hydrALAZINE HCL 100 MG TAB G-TUBE SCH ×2 (13:16→20:45)
[2017-09-25] MEDS: cloNIDine HCL 0.3 MG TAB G-TUBE SCH ×2 (13:16→20:45)
--- NOTE | 2017-09-25 14:04 | RADRPT ---
EXAM DATE/TIME: 09/25/2017 13:46 [facility] COMPARISON: CHEST SINGLE AP, September 17, 2017, 4:32. INDICATIONS : Respiratory disease MEDICAL HISTORY : Stroke. CVA. Migraine. Hypertension. GERD SURGICAL HISTORY : None. ENCOUNTER: Subsequent ACUITY: 3 weeks PAIN SCORE: Non-responsive. LOCATION: Bilateral chest FINDINGS: Stable tracheostomy catheter. Persistent left lower lung zone airspace consolidation. Cardiomediastin al contours are stable. Remainder of exam is unchanged. CONCLUSION: 1. Stable left lower lobe airspace consolidation. 2. No significant interval change. Darrell Robles MD on September 25, 2017 at 14:01 Board Certified Radiologist. This report was verified electronically.
--- NOTE | 2017-09-25 14:11 | HHI.PR ---
Subjective Remarks Follow-up pneumonia. Tmax 100. Ex Concerned regarding coughing. Discussed with RN, no secretions even with suction. Critical care medicine requested transfer of care and medical management. Chart reviewed. Objective Vitals Vital Signs Date Time Temp Pulse Resp B/P (MAP) Pulse Ox O2 Delivery O2 Flow Rate FiO2 09/25/17 12:00 100.0 88 17 129/72 (91) 96 09/25/17 11:53 94 T-piece 6.00 40 09/25/17 08:00 97.9 87 17 114/58 (76) 96 09/25/17 07:00 T-Piece 5.00 28 Humidified 09/25/17 04:00 100.2 85 20 147/82 (103) 94 09/25/17 03:50 99.5 86 21 133/71 (91) 93 09/25/17 00:45 T-Piece 28 Humidified 09/24/17 23:18 98.7 87 20 140/72 (94) 97 09/24/17 21:09 100 T-piece 5.00 21 09/24/17 20:00 83 09/24/17 20:00 99.9 83 21 137/75 (95) 100 09/24/17 19:00 100 T-Piece 28 Humidified 09/24/17 16:00 98.9 76 11 118/63 (81) 100 09/24/17 16:00 76 I/O 09/24/17 09/24/17 09/24/17 09/25/17 09/25/17 09/25/17 07:00 15:00 23:00 07:00 15:00 23:00 Intake Total 1575 ml 652 ml 1000 ml Output Total 2000 ml 975 ml 1550 ml Balance -425 ml -323 ml -550 ml IV Total 1000 ml Tube Feeding 675 ml 52 ml Other 900 ml 600 ml Output Urine Total 2000 ml 975 ml 1550 ml # Bowel Movements 1 2 0 Result Diagram: 09/25/17 0703 09/25/17 0703 Imaging Last Impressions Chest X-Ray 09/17/17 0600 Signed Impressions: Service Date/Time: Sunday, September 17, 2017 04:32 - CONCLUSION: Left basilar airspace disease. Julian Loaiza MD Maxillofacial CT 09/16/17 0000 Signed Impressions: Service Date/Time: September 01:03 - CONCLUSION: 1. Evidence of acute pansinusitis. 2. Opacification of multiple bilateral mastoid air cells most characteristic of mastoiditis. 3. Mildly prominent cervical chain nodes which may be reactive. Angelo Conn MD Upper Extremity Ultrasound 09/15/17 0000 Signed Impressions: Service Date/Time: Friday, September 15, 2017 17:14 - CONCLUSION: Occlusive thrombus within the left cephalic vein and nonocclusive thrombus within the right cephalic vein. Ric Jack MD Lower Extremity Ultrasound 09/15/17 0000 Signed Impressions: Service Date/Time: Friday, September 15, 2017 16:58 - CONCLUSION: No evidence of DVT within the lower extremities. Ric Jack MD Head CT 09/13/17 0800 Signed Impressions: Service Date/Time: Wednesday, September 13, 2017 09:17 - CONCLUSION: 1. Resolving left basal ganglia hematoma Natan Lagos MD Chest CT 09/13/17 0000 Signed Impressions: Service Date/Time: Wednesday, September 13, 2017 09:28 - CONCLUSION: 1. Bibasilar and left lingular dependent atelectatic changes. Lungs are otherwise clear. 2. Tracheostomy tube with the tip probably positioned above the connie. 3. Compensated cardiomegaly. Reyes Guzman MD Abdomen/Pelvis CT 09/13/17 0000 Signed Impressions: Service Date/Time: Wednesday, September 13, 2017 09:28 - CONCLUSION: 1. There is some stranding in the retroperitoneal perivascular tissues around the distal aorta extending into the bifurcation with a regional borderline lymph nodes. Findings are characteristic of a nonspecific inflammatory process. Findings could represent early retroperitoneal fibrosis.. 2. Urinary bladder is decompressed with some mural thickening in pericystic inflammatory changes possibly representing a chronic cystitis. Nondependent air could be associated with a recent catheterization/instrumentation. 3. Small umbilical and right inguinal hernias only contain fat. 4. Bilateral dependent basilar and left lingular atelectatic changes. Heart size is borderline prominent. 5. Otherwise , bowel is intact without obstruction to explain abdominal distention Reyes Guzman MD Abdomen X-Ray 09/10/17 0600 Signed Impressions: Service Date/Time: Sunday, September 10, 2017 03:56 - CONCLUSION: No significant abnormality is identified. There is mild distention of the colon but there are no findings to suggest bowel obstruction or significant ileus. Ignacio Underwood MD Liver Ultrasound 09/07/17 0000 Signed Impressions: Service Date/Time: Thursday, September 07, 2017 12:37 - CONCLUSION: 1. Unremarkable sonographic appearance of the liver. No evidence for hepatic volume loss or intrahepatic ductal dilatation. 2. No sonographic evidence for cholelithiasis or acute cholecystitis. 3. Mild increased right renal echogenicity may reflect medical renal disease. 4. Small bilateral pleural effusions. 5. Pancreas and inferior pole of the right kidney are obscured by bowel gas and therefore not evaluated. Darrell Robles MD Renal Ultrasound 08/31/17 0000 Signed Impressions: Service Date/Time: Thursday, August 31, 2017 17:42 - CONCLUSION: 1. No evidence of hydronephrosis on either side. 2. Solitary linear echogenic focus in the upper pole parenchyma of the right kidney has similar features to prior examination in January 2017 and possibly represents a calcification. David Snell MD Neck CTA 08/28/[id number] Signed Impressions: Service Date/Time: Tuesday, August 29, 2017 00:13 - CONCLUSION: Negative carotid CTA. David Snell MD Head CTA 08/28/177 Signed Impressions: Service Date/Time: Tuesday, August 29, 2017 00:13 - CONCLUSION: 1. No evidence of vessel truncation or aneurysm. 2. No abnormal vessels in the region of the large left thalamic hemorrhage. David Snell MD Objective Remarks Gen: Middle-aged male, lying in bed, in no distress Head: Atraumatic. Conjunctivae clear. ENT: Tongue with improved swelling Neck: trach site clean, dry. Lungs: On TP. equal chest rise. Heart: RR. Regular rate and rhythm Abdomen: Mildly distended. PEG site clean. Extremities: Warm, well perfused. Neuro: Opens eyes spontaneously, following commands LUE by giving thumbs up. Right-sided weakness Procedures Tracheostomy and PEG placement A/P Problem List: (1) Intracranial hemorrhage ICD Code: I62.9 - Nontraumatic intracranial hemorrhage, unspecified Status: Acute Assessment and Plan 46yM with left thalamic hypertensive hemorrhagic IPH, ICH score 2. Slowly improving neurologically. Needs placement. Angioedema slowly improving. Intermittent fever. Acute encephalopathy - resolving. Left Thalamic Hemorrhage, with IV extension Intracerebral Hemorrhage Respiratory failure s/p trach - improving. Central fever Bilateral upper extremity superficial thrombophlebitis 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 - slightly improved. Hyperglycemia - persistent. Hypertension Hypernatremia -resolved Healthcare associated pneumonia with Klebsiella- resolved. Sepsis - resolved. Possible NMS - resolved. Hypertensive Emergency- resolved. Agitated Delirium - resolved. Plan: NEURO: - Seroquel and Haldol discontinued due to possible NMS - Oxycodone 5mg q6h prn. - propranolol 40mg q6h - continue clonidine 0.3 mg tid - Repeat CT of the head showed improving bleed RESP: - Tolerating T piece - CT of the chest 09/13/17 -LLL infiltrate - Status post Broad-spectrum antibiotics - DuoNeb every 6 hours scheduled and when necessary, ventilator bundle - CT face shows pansinusitis and mastoiditis - ENT consulted for persistent angioedema and sinusitis-appreciate input CVS: - Intermittent hypertension now well controlled - Continue clonidine, amlodipine and propranolol - Continue hydralazine to 100mg po q8hr. GI: - Status post PEG tube continue tube feeds - Having bowel movements - Continue Free water 300mL per tube q4h - Switch to half NS @ 42 mL/hr. follow-up daily sodium levels. - Pepcid per tube /RENAL: - Strict I and O continue condom catheter - Nephrology following, creatinine stable ID - CT maxillofacial shows pansinusitis and mastoiditis, also upper extremity superficial thrombophlebitis on both contributing to fever - ID consult appreciated - ENT consulted for persistent angioedema - Off Decadron(09/20)and Benadryl(09/18), continue Flonase - Zosyn stopped (09-13 to 09-20). Monitor clinically for any recurrence of sepsis. - Patient has intermittent fever and now has new cough. Repeat chest x-ray. Aggressive pulmonary toilet HEME: - Leukocytosis secondary to probable sepsis -resolving MSK: - OOB to stretcher chair daily - PT/OT following ENDO: - Continue Levemir 20 units SQ q12h - continue sliding scale PROPH: - sqh 5000 q12h (2 weeks post bleed, stable). Pepcid for GI prophylaxis Discharge Planning Dc to [facility] pt has no payor source Dre Green MD Sep 25, 2017 14:11
[2017-09-25] MEDS: RESP: ALBUTEROL 2.5 MG/3 ML NEB (PRN) NEB (15:22)
[2017-09-25] MEDS: ATORVASTATIN 40 MG TAB DOBHOFF SCH (20:45)
[2017-09-25] MEDS: DOCUSATE SODIUM 50 MG/SENNA 8.6 MG TAB G-TUBE SCH (20:45)
[2017-09-25] MEDS: SODIUM CHLORIDE 0.9% FLUSH 10 ML FLUSH IVF PRN (20:46)
[2017-09-25] MEDS: POLYETHYLENE GLYCOL 17 GM PKG G-TUBE SCH (20:46)
[2017-09-25] MEDS: oxyCODONE HCL ORAL CONC 5 MG/0.25 ML SYRINGE G-TUBE PRN (20:48)
[2017-09-26] VITALS (13 sets, daily range): BP systolic 114–146; BP diastolic 60–81; PULSE 75–87; RESP 18–20; TEMP 98.3–101; O2SAT 97–100
[2017-09-26] MEDS: CHLORHEXIDINE GLUCONATE 2 % 1 PACK (2 CLOTHS) TOP SCH (04:00)
[2017-09-26] MEDS: FREE WATER G-TUBE SCH ×6 (04:00→23:36)
[2017-09-26] MEDS: cloNIDine HCL 0.3 MG TAB G-TUBE SCH ×3 (05:53→21:23)
[2017-09-26] MEDS: QUEtiapine FUMARATE 25 MG TAB G-TUBE SCH ×3 (05:53→21:23)
[2017-09-26] MEDS: hydrALAZINE HCL 100 MG TAB G-TUBE SCH ×3 (05:54→21:23)
[2017-09-26] MEDS: PROPRANOLOL HCL 40 MG TAB G-TUBE SCH ×4 (05:54→23:36)
[2017-09-26] MEDS: INSULIN ASPART SUPPLEMENTAL SCALE SQ SCH ×4 (05:56→23:37)
[2017-09-26] MEDS: CHLORHEXIDINE 0.12% (ORAL KIT) 15 ML CUP MT SCH ×2 (08:00→21:22)
[2017-09-26] MEDS: POLYETHYLENE GLYCOL 17 GM PKG G-TUBE SCH ×2 (08:21→21:21)
[2017-09-26] MEDS: HEPARIN SODIUM - SQ 10,000 UNITS/ML VIAL SQ SCH ×2 (08:21→21:23)
[2017-09-26] MEDS: DOCUSATE SODIUM 50 MG/SENNA 8.6 MG TAB G-TUBE SCH ×2 (08:21→21:22)
[2017-09-26] MEDS: INSULIN DETEMIR 100 UNITS/ML VIAL SQ SCH ×2 (08:22→21:23)
[2017-09-26] MEDS: FAMOTIDINE 20 MG TAB NG SCH ×2 (08:22→21:22)
[2017-09-26] MEDS: FLUTICASONE PROPIONATE 50 MCG/ACT 16 GM NASAL SPRAY EACH NARE SCH (08:23)
[2017-09-26] MEDS: ACETAMINOPHEN 325 MG TAB G-TUBE PRN (08:38)
[2017-09-26 09:51] LABS: BICARBONATE 24.2 MEQ/L (21.0-32.0); CALCIUM 8.3 MG/DL (8.5-10.1); CREATININE 1.44 MG/DL (0.60-1.30); MAGNESIUM 2.2 MG/DL (1.5-2.5)
[2017-09-26 10:05] LABS: HEMATOCRIT 25.6 % (39.0-51.0); HEMOGLOBIN 8.7 GM/DL (13.0-17.0); MEAN CELL VOLUME 81.7 FL (80.0-100.0); MEAN CORPUSCULAR HGB CONC 34.2 % (32.0-36.0); MEAN PLATELET VOLUME 11.2 FL (7.0-11.0); PLATELET COUNT 204 TH/MM3 (150-450); RED BLOOD COUNT 3.13 MIL/MM3 (4.50-5.90); RED CELL DISTRIBUTION WIDTH 15.1 % (11.6-17.2); WHITE BLOOD COUNT 15.6 TH/MM3 (4.0-11.0)
--- NOTE | 2017-09-26 10:08 | RADRPT ---
EXAM DATE/TIME: 09/26/2017 09:45 [facility] COMPARISON: CHEST SINGLE AP, September 25, 2017, 13:46. INDICATIONS : Fever. MEDICAL HISTORY : Stroke. CVA. Migraine. Hypertension. GERD SURGICAL HISTORY : None. ENCOUNTER: Subsequent ACUITY: 3 weeks PAIN SCORE: Non-responsive. LOCATION: Bilateral cranial FINDINGS: A single view of the chest demonstrates the lungs to be symmetrically aerated with obscuration of lef t hemidiaphragm characteristic of consolidation/effusion. Right lung is clear. Accounting for the deg ree of inspiration, heart size is borderline but well compensated. Tracheostomy tube is identified wi th the tip at the clavicular heads. Osseous structures are intact. CONCLUSION: Stable examination with left basilar consolidation/effusion. Reyes Guzman MD on September 26, 2017 at 10:05 Board Certified Radiologist. This report was verified electronically.
--- NOTE | 2017-09-26 11:40 | HHI.PR ---
Subjective Remarks Patient is awake and following commands. Family at bedside reports that he is coughing more. Having fevers this morning. Objective Vitals Vital Signs Date Time Temp Pulse Resp B/P (MAP) Pulse Ox O2 Delivery O2 Flow Rate FiO2 09/26/17 09:51 99.3 09/26/17 09:12 101.0 84 18 125/62 (83) 99 09/26/17 04:00 100.5 84 18 146/81 (102) 97 09/26/17 04:00 T-Piece 6.00 28 09/26/17 03:49 87 09/26/17 00:00 99.7 76 19 131/73 (92) 97 09/26/17 00:00 T-Piece 6.00 28 09/25/17 23:45 80 09/25/17 22:07 96 T-piece 6.00 28 09/25/17 20:00 99.4 82 19 137/67 (90) 96 09/25/17 19:43 81 09/25/17 16:00 99.3 87 17 131/68 (89) 96 09/25/17 12:00 T-Piece 28 Humidified 09/25/17 12:00 100.0 88 17 129/72 (91) 96 09/25/17 11:53 94 T-piece 6.00 40 I/O 09/25/17 09/25/17 09/25/17 09/26/17 09/26/17 09/26/17 07:00 15:00 23:00 07:00 15:00 23:00 Intake Total 1000 ml 1720 ml Output Total 1550 ml 1200 ml 1800 ml Balance -550 ml -1200 ml -80 ml Intake Oral 0 ml IV Total 1000 ml Tube Feeding 700 ml Tube Irrigant 120 ml Other 900 ml Output Urine Total 1550 ml 1200 ml 1800 ml # Bowel Movements 0 2 1 Result Diagram: 09/26/1772409/26/17724 Objective Remarks GENERAL: Obese male, trached, sitting in the chair CARDIOVASCULAR: Normal rate and regular rhythm without murmurs, gallops, or rubs. RESPIRATORY: Trached. Coarse upper airway sounds diffusely. Diminished breath sounds at the bases. Some faint rhonchi, left base. GASTROINTESTINAL: Abdomen soft, non-tender, PEG in place. Normal active bowel sounds MUSCULOSKELETAL: Extremities without cyanosis, or edema. NEURO: Awake, follow commands. Right sided hemiparesis. Left upper and left lower extremity strength 4 out of 5. PSYCH: Appropriate mood and affect. Procedures Tracheostomy and PEG placement A/P Problem List: (1) Intracranial hemorrhage ICD Code: I62.9 - Nontraumatic intracranial hemorrhage, unspecified Status: Acute Assessment and Plan 46-year-old male with left thalamic hypertensive hemorrhagic CVA. ICH score 2. Patient with significant right sided hemiparesis. Slow neurological improvement. He can follow commands and have some strength on the left side. Had issues with angioedema earlier in the hospitalization. This is also improving. Patient has had a prolonged ICU course. He has been transferred to the floor. 09/26/17: Patient developed fever, leukocytosis, family reports he is coughing more. Chest x-ray shows stable left lower lobe consolidation. He does not appear toxic, but given the risk of worsening pneumonia, patient was started on Ceftin. Previously had sputum culture that was positive for Klebsiella. Acute encephalopathy - resolving. Left Thalamic Hemorrhage, with IV extension Intracerebral Hemorrhage - Repeat CT of the head showed improving bleed - Neurosurgery following. Continue neurochecks. Repeat head CT for any decline in neuro status. - Continue rehabilitation efforts with PT, OT, speech - On Seroquel to control agitated delirium. Roxicodone as needed for pain Healthcare associated pneumonia: Previously treated with antibiotics. - Patient is having recurrent fever and new leukocytosis. His chest x-ray shows stable left lower lobe consolidation. Previously completed treatment with antibiotics. Last antibiotics dose was about a week ago for Klebsiella. - Given worsening cough, fever, and leukocytosis. Will start Ceftin for a 7 day course. We'll consult ID if no improvement. Respiratory failure s/p trach - Tolerating T piece - CT of the chest 09/13/17 -LLL infiltrate. Repeat chest x-ray on 09/26/17 shows stable left lower lobe consolidation - DuoNeb every 6 hours scheduled and when necessary -Patient had angioedema, source unclear and was seen by ENT. He was treated with steroids. Per ENT, expect slow improvement. This is resolving. - Consult pulmonology to assist with trach management Hyperglycemia - persistent. - Continue Levemir 20 units SQ q12h - Continue sliding scale insulin with Accu-Cheks. - Check hemoglobin A1c Hypertension - Intermittent hypertension now well controlled - Continue clonidine, amlodipine and propranolol - Continue hydralazine to 100mg po q8hr. Nutrition status: - Status post PEG tube continue tube feeds - Having bowel movements - Continue Free water 300mL per tube q4h - Pepcid per tube Acute kidney injury, most likely has CK D per nephrology: Renal function stabilized. - Follow I/oh Physical deconditioning/right sided hemiparesis - OOB to stretcher chair daily - PT/OT following PROPH: - sqh 5000 q12h (2 weeks post bleed, stable). Pepcid for GI prophylaxis Discharge Planning Needs senior living facility. [facility] Sep 26, 2017 11:40
[2017-09-26] MEDS: CEFUROXIME AXETIL 500 MG TAB PO SCH ×2 (13:24→21:22)
--- NOTE | 2017-09-26 14:54 | MB ---
cc: WANG PIÑA M.D. DATE OF CONSULTATION: 09/26/2017. REASON FOR CONSULTATION: Tracheostomy care. HISTORY OF PRESENT ILLNESS: Mr. Marck Wilde is a 46-year-old -[place] male who was hospitalized August 29, 2017 with altered mental status and new thalamic bleed. The patient had developed respiratory failure requiring intubation, mechanical ventilation, subsequent tracheostomy with ventilatory support. His hospital stay was complicated by infection, which has been treated. The patient is presently off ventilatory support and tracheostomy is in place. He does not follow commands and does not relate any history. The history is from the record. PAST MEDICAL HISTORY: 1. Previous CVA. 2. Hypertension. 3. Obesity. ALLERGIES: None known to medication. SOCIAL HISTORY: No smoking or drinking. Occasional alcohol. FAMILY HISTORY: Noncontributory. REVIEW OF SYSTEMS: A twelve-point review of systems is as per the history of present illness and past history, otherwise negative. CURRENT MEDICATIONS: Medications at present include: 1. Ceftin. 2. Amlodipine. 3. Atorvastatin. 4. Hydralazine. 5. Propranolol. 6. Pepcid. 7. Insulin. IMPRESSION: 1. Respiratory failure now off ventilatory support. 2. Status post tracheostomy. 3. Status post CVA. 4. Hypertension. 5. Morbid obesity. PLAN: The patient's oxygenation is adequate at this time. He appears in no distress. His last chest x-ray done today was with left basilar atelectasis, pneumonia or effusion which has not been changed from previous. Would continue pulmonary toilet, oxygen therapy as needed, attempt to remove the tracheostomy when that is possible. I do thank you for asking me to partake in Mr. Carlo garces. Wang Piña MD WWW/SILVIA /2:28 PM /2:41 PM
[2017-09-26] MEDS: RESP: ALBUTEROL 2.5 MG/3 ML NEB (PRN) NEB (19:36)
[2017-09-26] MEDS: ATORVASTATIN 40 MG TAB DOBHOFF SCH (21:22)
[2017-09-27] VITALS (10 sets, daily range): BP systolic 131–153; BP diastolic 60–85; PULSE 75–87; RESP 17–20; TEMP 98.9–99.8; O2SAT 95–99
[2017-09-27] MEDS: FREE WATER G-TUBE SCH ×6 (03:30→23:35)
[2017-09-27] MEDS: CHLORHEXIDINE GLUCONATE 2 % 1 PACK (2 CLOTHS) TOP SCH (03:30)
[2017-09-27] MEDS: PROPRANOLOL HCL 40 MG TAB G-TUBE SCH ×4 (05:11→23:32)
[2017-09-27] MEDS: QUEtiapine FUMARATE 25 MG TAB G-TUBE SCH ×3 (05:12→21:53)
[2017-09-27] MEDS: hydrALAZINE HCL 100 MG TAB G-TUBE SCH ×3 (05:12→21:53)
[2017-09-27] MEDS: cloNIDine HCL 0.3 MG TAB G-TUBE SCH ×3 (05:12→21:53)
[2017-09-27] MEDS: INSULIN ASPART SUPPLEMENTAL SCALE SQ SCH ×4 (05:17→23:36)
[2017-09-27 08:52] LABS: HEMATOCRIT 27.4 % (39.0-51.0); HEMOGLOBIN 8.8 GM/DL (13.0-17.0); MEAN CELL VOLUME 82.6 FL (80.0-100.0); MEAN CORPUSCULAR HEMOGLOBIN 26.6 PG (27.0-34.0); MEAN CORPUSCULAR HGB CONC 32.2 % (32.0-36.0); MEAN PLATELET VOLUME 10.6 FL (7.0-11.0); PLATELET COUNT 255 TH/MM3 (150-450); RED BLOOD COUNT 3.31 MIL/MM3 (4.50-5.90); RED CELL DISTRIBUTION WIDTH 15.2 % (11.6-17.2); WHITE BLOOD COUNT 9.3 TH/MM3 (4.0-11.0)
[2017-09-27 09:07] LABS: BICARBONATE 30.5 MEQ/L (21.0-32.0); CALCIUM 8.7 MG/DL (8.5-10.1); CREATININE 1.39 MG/DL (0.60-1.30)
[2017-09-27] MEDS: FLUTICASONE PROPIONATE 50 MCG/ACT 16 GM NASAL SPRAY EACH NARE SCH (09:19)
[2017-09-27] MEDS: CHLORHEXIDINE 0.12% (ORAL KIT) 15 ML CUP MT SCH ×2 (09:19→20:00)
[2017-09-27] MEDS: POLYETHYLENE GLYCOL 17 GM PKG G-TUBE SCH ×2 (09:19→21:54)
[2017-09-27] MEDS: FAMOTIDINE 20 MG TAB NG SCH ×2 (09:20→21:53)
[2017-09-27] MEDS: DOCUSATE SODIUM 50 MG/SENNA 8.6 MG TAB G-TUBE SCH ×2 (09:20→21:53)
[2017-09-27] MEDS: HEPARIN SODIUM - SQ 10,000 UNITS/ML VIAL SQ SCH ×2 (09:20→21:54)
[2017-09-27] MEDS: CEFUROXIME AXETIL 500 MG TAB PO SCH ×2 (09:20→21:53)
[2017-09-27] MEDS: INSULIN DETEMIR 100 UNITS/ML VIAL SQ SCH ×2 (09:20→21:55)
[2017-09-27 09:53] LABS: AMORPHOUS SEDIMENT, URINE RARE; BACTERIA, URINE RARE /hpf; BILIRUBIN, URINE NEG (NEG); BLOOD, URINE NEG (NEG); GLUCOSE,URINE NEG (NEG); KETONE, URINE NEG (NEG); MUCUS URINE FEW /lpf (OCC); NITRITE,URINE NEG (NEG); PH, URINE 5.5 (5.0-8.5); SQUAMOUS EPITHELIAL CELL URINE 1 /hpf (0-5); URINE COLOR LIGHT-YELLOW (YELLW/STRAW); URINE LEUKOCYTE ESTERASE TRACE (NEG)
--- NOTE | 2017-09-27 12:24 | HHI.NSPN ---
(RamaJames) History Chief Complaint: Unable to obtain due to patient's clinical condition. (RamaJames) Interval History 08/29: History of hypertension who was brought to the emergency room per [facility] after being found with altered mental status, right hemiparesis. He had reportedly been seen to be normal approximately 3-1/2 hours prior. Systolic blood pressure greater than 260/130 on initial evaluation. No seizure activity reported. Positive emesis. Per emergency room personnel the patient was responding verbally, difficulty raising his right arm upon initial arrival. He was intubated in the emergency room and a stat CT scan accomplished which has revealed a primarily left thalamic intracranial hemorrhage. 09/01/17: Patient remains intubated and sedated. 09/02: intubated and well sedated, not tolerating sedation vacation due to increase in blood pressure. 09/03/17: Remains on propofol and fentanyl IV for ventilator control. Positive agitation with decreased sedation 09/04/17: Pt sedated on Diprivan and Fentanyl drip. Not following commands. Pt on Cardene drip. Intubated. 09/05/17: Pt sedated on Diprivan and Fentanyl drip. Not following commands. Pt on Cardene drip. Intubated. Pupils 2mm bilaterally, NR bilaterally. 09/06/17: Remains intubated. PEG tube placed today. On Decadron and Benadryl for angioedema. Lisinopril discontinued 09/07. The patient is obtunded but is sedated with propofol. Nursing reports that the patient does have bleeding secondary to his PEG tube being placed yesterday. The family reports that the plan is to do a tracheostomy tomorrow. Nursing does say the patient does withdraw to stimulation, has a cough and gag reflex but his pupils are nonreactive. 09/10: The patient continues to be obtunded although he has sedation infusing at a low dose. He is trached and tolerating a CPAP trial. 09/13: Obtunded versus lethargic. He is not on any sedation. He is trached and mechanically ventilated. He went for a CT brain this morning. Nursing reports that the patient does withdraw to noxious stimulation and that the pupils are sluggish. 09/14: The patient has his eyes open when seen. He continues to be trached and mechanically ventilated. Nursing this morning reports that the patient gave a thumbs up on the left hand to command for him. 09/15: Pt off sedative drips. Pupils 2mm bilaterally slight reaction bilaterally. Not following commands. Not opening eyes. 09/16: When seen this morning the patient appears lethargic. He is trached and on T-piece. Nursing reports that the patient was more alert and did give a thumbs up to command this morning prior to receiving diphenhydramine. He also reported no movement to the right side. 09/17: No acute events overnight. Patient up in chair 09/18: No acute events overnight. Patient remains hypertensive. He is in bed with at his side. 09/19: Persistent hypertension overnight. 09/20/2017: Tracheostomy in place. Upper endoscopy performed 09/19/17 with findings of small amount of bleeding at the PEG site. 09/22: The patient is awake when seen. He does interact. 09/23: This morning the patient does have his eyes closed but opens them to voice. He does follow commands with the left side extremities and it appears he does track. 09/24: When seen the patient is awake and looks towards my voice. He does follow commands on the left and appears to track with the eyes. No movement of the right noted. 09/27: The patient is moving the left arm spontaneously to wipe his face. He continues to have some mild swelling to the tongue. He was transferred from [facility] to a regular med/surg floor on . (James Ontiveros) System Review Comments Unable to obtain due to patient's clinical condition. (James Ontiveros) Exam Results 09/25/17 09/25/17 09/26/17 09/26/17 09/27/17 09/27/17 06:00 18:00 06:00 18:00 06:00 18:00 Intake Total 1000 ml 1720 ml 0 ml 0 ml Output Total 1550 ml 1200 ml 1800 ml 1325 ml 2100 ml Balance -550 ml -1200 ml -80 ml -1325 ml -2100 ml Intake Oral 0 ml 0 ml 0 ml IV Total 1000 ml Tube Feeding 700 ml Tube Irrigant 120 ml Other 900 ml Output Urine Total 1550 ml 1200 ml 1800 ml 1325 ml 2100 ml # Voids 2 # Bowel Movements 0 2 1 0 Vital Signs Date Time Temp Pulse Resp B/P (MAP) Pulse Ox O2 Delivery O2 Flow Rate FiO2 09/27/17 09:59 98 T-piece 28 09/27/17 09:12 T-Piece 6.00 28 09/27/17 08:00 99.1 81 20 143/75 (97) 97 09/27/17 08:00 83 09/27/17 04:00 T-Piece 6.00 28 09/27/17 04:00 99.4 83 17 131/60 (83) 99 09/27/17 03:46 78 09/27/17 00:00 T-Piece 6.00 28 09/27/17 00:00 99.6 75 17 143/77 (99) 99 09/26/17 22:44 75 09/26/17 20:00 T-Piece 6.00 28 09/26/17 20:00 99.9 81 19 144/72 (96) 99 09/26/17 19:47 83 09/26/17 19:37 T-piece 6.00 28 09/26/17 16:08 98.3 81 20 118/60 (79) 100 09/26/17 16:00 79 09/26/17 16:00 T-Piece 6.00 28 09/26/17 12:35 98 T-piece 6.00 28 09/26/17 12:08 99.6 83 20 114/62 (79) 97 09/26/17 12:00 T-Piece 6.00 28 09/26/17 09:51 99.3 09/26/17 09:12 101.0 84 18 125/62 (83) 99 09/26/17 08:00 85 09/26/17 08:00 T-Piece 6.00 28 09/26/17 04:00 100.5 84 18 146/81 (102) 97 09/26/17 04:00 T-Piece 6.00 28 09/26/17 03:49 87 09/26/17 00:00 99.7 76 19 131/73 (92) 97 09/26/17 00:00 T-Piece 6.00 28 09/25/17 23:45 80 09/25/17 22:07 96 T-piece 6.00 28 09/25/17 20:00 99.4 82 19 137/67 (90) 96 09/25/17 19:43 81 09/25/17 16:00 99.3 87 17 131/68 (89) 96 09/25/17 12:00 T-Piece 28 Humidified 09/25/17 12:00 100.0 88 17 129/72 (91) 96 09/25/17 11:53 94 T-piece 6.00 40 09/25/17 08:00 86 09/25/17 08:00 97.9 87 17 114/58 (76) 96 09/25/17 07:00 T-Piece 5.00 28 Humidified 09/25/17 04:00 100.2 85 20 147/82 (103) 94 09/25/17 03:50 99.5 86 21 133/71 (91) 93 09/25/17 00:45 T-Piece 28 Humidified 09/24/17 23:18 98.7 87 20 140/72 (94) 97 09/24/17 21:09 100 T-piece 5.00 21 09/24/17 20:00 83 09/24/17 20:00 99.9 83 21 137/75 (95) 100 09/24/17 19:00 100 T-Piece 28 Humidified 09/24/17 16:00 98.9 76 11 118/63 (81) 100 09/24/17 16:00 76 (James Ontiveros) Physical Examination GENERAL: Awake, interacts, no evident distress. HEENT: Normocephalic, atraumatic. Left pupil 4 mm & right pupil 5 mm, slight reaction, disconjugate gaze. Edematous tongue slowly improving. MUSCULOSKELETAL: Moves left-sided extremities, apparent right hemiplegia, no evident clubbing or deformity. NEUROLOGICAL: Awake & alert. Left pupil 4 mm & right pupil 5 mm, slight reaction, does appear to track. Persistent disconjugate extraocular movements. Nonverbal, trached. Spontaneously moves LUE. Moves LLE to command. No movement of right extremities to noxious stimulation but does have facial grimacing. (James Ontiveros) Lab, Micro, Other Results Recent Impressions Chest X-Ray 09/26/17 0000 Signed Impressions: Service Date/Time: Tuesday, September 26, 2017 09:45 - CONCLUSION: Stable examination with left basilar consolidation/effusion. Reyes Guzman MD Chest X-Ray 09/25/17 0000 Signed Impressions: Service Date/Time: Monday, September 25, 2017 13:46 - CONCLUSION: 1. Stable left lower lobe airspace consolidation. 2. No significant interval change. Darrell Robles MD Laboratory Tests Test 09/25/17 07:03 09/26/17 07:25 09/27/17 08:15 09/27/17 09:45 White Blood Count 10.4 TH/MM3 15.6 TH/MM3 9.3 TH/MM3 Red Blood Count 3.00 MIL/MM3 3.13 MIL/MM3 3.31 MIL/MM3 Hemoglobin 8.0 GM/DL 8.7 GM/DL 8.8 GM/DL Hematocrit 24.7 % 25.6 % 27.4 % Mean Corpuscular Volume 82.3 FL 81.7 FL 82.6 FL Mean Corpuscular Hemoglobin 26.8 PG 28.0 PG 26.6 PG Mean Corpuscular Hemoglobin Concent 32.5 % 34.2 % 32.2 % Red Cell Distribution Width 14.8 % 15.1 % 15.2 % Platelet Count 262 TH/MM3 204 TH/MM3 255 TH/MM3 Mean Platelet Volume 10.9 FL 11.2 FL 10.6 FL Neutrophils (%) (Auto) 76.1 % Lymphocytes (%) (Auto) 14.5 % Monocytes (%) (Auto) 7.2 % Eosinophils (%) (Auto) 1.4 % Basophils (%) (Auto) 0.8 % Neutrophils # (Auto) 7.9 TH/MM3 Lymphocytes # (Auto) 1.5 TH/MM3 Monocytes # (Auto) 0.7 TH/MM3 Eosinophils # (Auto) 0.1 TH/MM3 Basophils # (Auto) 0.1 TH/MM3 CBC Comment DIFF FINAL Differential Comment Blood Urea Nitrogen 31 MG/DL 30 MG/DL 28 MG/DL Creatinine 1.34 MG/DL 1.44 MG/DL 1.39 MG/DL Random Glucose 142 MG/DL 153 MG/DL 159 MG/DL Total Protein 6.2 GM/DL Albumin 2.1 GM/DL Calcium Level 8.6 MG/DL 8.3 MG/DL 8.7 MG/DL Magnesium Level 2.0 MG/DL 2.2 MG/DL Alkaline Phosphatase 69 U/L Aspartate Amino Transf (AST/SGOT) 36 U/L Alanine Aminotransferase (ALT/SGPT) 57 U/L Total Bilirubin 0.2 MG/DL Sodium Level 137 MEQ/L 139 MEQ/L 139 MEQ/L Potassium Level 4.5 MEQ/L 4.6 MEQ/L 3.9 MEQ/L Chloride Level 104 MEQ/L 105 MEQ/L 103 MEQ/L Carbon Dioxide Level 26.1 MEQ/L 24.2 MEQ/L 30.5 MEQ/L Anion Gap 7 MEQ/L 10 MEQ/L 6 MEQ/L Estimat Glomerular Filtration Rate 70 ML/MIN 65 ML/MIN 67 ML/MIN Hematology Comments Urine Color LIGHT-YELLOW Urine Turbidity CLEAR Urine pH 5.5 Urine Specific [place] 1.008 Urine Protein NEG mg/dL Urine Glucose (UA) NEG mg/dL Urine Ketones NEG mg/dL Urine Occult Blood NEG Urine Nitrite NEG Urine Bilirubin NEG Urine Urobilinogen LESS THAN 2.0 MG/DL Urine Leukocyte Esterase TRACE Urine RBC 1 /hpf Urine WBC 4 /hpf Urine Squamous Epithelial Cells 1 /hpf Urine Amorphous Sediment RARE Urine Bacteria RARE /hpf Urine Mucus FEW /lpf Microscopic Urinalysis Comment CATH-CULTURE IND (James Ontiveros) Medical Decision Making Impression and Plan Impression: 1. Large thalamic intracranial hemorrhage. 2. Hypertension 3. Klebsiella pneumonia The patient remains stable neurologically with a persistent right hemiplegia. CT brain w/improvement of left thalamic haemorrhage, decreased midline shift, blood noted in posterior horns, no acute findings. Plan: Primary management per Hospitalist. Neuro checks. Stat CT brain for any decline in neuro status. Abx per Infectious Disease. Palliative Care consult. Continue full supportive care measures per family. (James Ontiveros) Attending Statement The exam, history, and the medical decision-making described in the above note were completed with the assistance of the mid-level provider. I reviewed and agree with the findings presented. I attest that I had a [id number] encounter with the patient on the same day, and personally performed and documented my assessment and findings in the medical record. Patient examination remains stable today compared to 09/24/17. Continuing antibiotic treatment for Klebsiella pneumonia per infectious disease. No neurosurgical intervention anticipated at this point. Continuing therapies Stable for long term/rehabilitation from neurosurgical standpoint (Orville Tinajero MD) James Ontiveros Sep 27, 2017 12:24 Orville Tinajero MD Sep 27, 2017 20:27
--- NOTE | 2017-09-27 13:46 | HHI.PR ---
Subjective Remarks Afebrile today No new issues. Patient is able to move the left upper and left lower extremities. Right hemiparesis persists. Objective Vitals Vital Signs Date Time Temp Pulse Resp B/P (MAP) Pulse Ox O2 Delivery O2 Flow Rate FiO2 09/27/17 12:30 T-Piece 6.00 28 09/27/17 12:00 99.8 85 20 148/82 (104) 97 09/27/17 09:59 98 T-piece 28 09/27/17 09:12 T-Piece 6.00 28 09/27/17 08:00 99.1 81 20 143/75 (97) 97 09/27/17 08:00 83 09/27/17 04:00 T-Piece 6.00 28 09/27/17 04:00 99.4 83 17 131/60 (83) 99 09/27/17 03:46 78 09/27/17 00:00 T-Piece 6.00 28 09/27/17 00:00 99.6 75 17 143/77 (99) 99 09/26/17 22:44 75 09/26/17 20:00 T-Piece 6.00 28 09/26/17 20:00 99.9 81 19 144/72 (96) 99 09/26/17 19:47 83 09/26/17 19:37 T-piece 6.00 28 09/26/17 16:08 98.3 81 20 118/60 (79) 100 09/26/17 16:00 79 09/26/17 16:00 T-Piece 6.00 28 I/O 09/26/17 09/26/17 09/26/17 09/27/17 09/27/17 09/27/17 07:00 15:00 23:00 07:00 15:00 23:00 Intake Total 1720 ml 0 ml 0 ml Output Total 1800 ml 850 ml 475 ml 2100 ml Balance -80 ml -850 ml -475 ml -2100 ml Intake Oral 0 ml 0 ml 0 ml Tube Feeding 700 ml Tube Irrigant 120 ml Other 900 ml Output Urine Total 1800 ml 850 ml 475 ml 2100 ml # Voids 2 # Bowel Movements 1 0 Result Diagram: 09/27/1781409/27/17814 Objective Remarks GENERAL: Obese male, trached, sitting in the chair CARDIOVASCULAR: Normal rate and regular rhythm without murmurs, gallops, or rubs. RESPIRATORY: Trached. Coarse upper airway sounds diffusely. Diminished breath sounds at the bases. Some faint rhonchi, left base. GASTROINTESTINAL: Abdomen soft, non-tender, PEG in place. Normal active bowel sounds MUSCULOSKELETAL: Extremities without cyanosis, or edema. NEURO: Awake, follow commands. Right sided hemiparesis. Left upper and left lower extremity strength 4 out of 5. PSYCH: Appropriate mood and affect. Procedures Tracheostomy and PEG placement A/P Problem List: (1) Intracranial hemorrhage ICD Code: I62.9 - Nontraumatic intracranial hemorrhage, unspecified Status: Acute Assessment and Plan 46-year-old male with left thalamic hypertensive hemorrhagic CVA. ICH score 2. Patient with significant right sided hemiparesis. Slow neurological improvement. He can follow commands and have some strength on the left side. Had issues with angioedema earlier in the hospitalization. This is also improving. Patient has had a prolonged ICU course. He has been transferred to the floor. Acute encephalopathy - resolving. Left Thalamic Hemorrhage, with IV extension Intracerebral Hemorrhage - Repeat CT of the head showed improving bleed - Neurosurgery following. Continue neurochecks. Repeat head CT for any decline in neuro status. - Continue rehabilitation efforts with PT, OT, speech - On Seroquel to control agitated delirium. Roxicodone as needed for pain Healthcare associated pneumonia: Previously treated with antibiotics. - on 09/25 Patient recurrent fever and new leukocytosis. His chest x-ray shows stable left lower lobe consolidation. Previously completed treatment with antibiotics. Last antibiotics dose was about a week ago for Klebsiella. - Given worsening cough, fever, and leukocytosis. Continue Ceftin for a 7 day course. We'll consult ID if no improvement. - Improving. Afebrile. Respiratory failure s/p trach - Tolerating T piece - CT of the chest 09/13/17 -LLL infiltrate. Repeat chest x-ray on 09/26/17 shows stable left lower lobe consolidation - DuoNeb every 6 hours scheduled and when necessary -Patient had angioedema, source unclear and was seen by ENT. He was treated with steroids. Per ENT, expect slow improvement. This is resolving. -Appreciate pulmonology following for trach management Hyperglycemia - persistent. - Continue Levemir 20 units SQ q12h - Continue sliding scale insulin with Accu-Cheks. - hemoglobin A1c pending Hypertension - Intermittent hypertension now well controlled - Continue clonidine, amlodipine and propranolol - Continue hydralazine to 100mg po q8hr. Nutrition status: - Status post PEG tube continue tube feeds - Having bowel movements - Continue Free water 300mL per tube q4h - Pepcid per tube Acute kidney injury, most likely has CK D per nephrology: Renal function stabilized. - Follow I/oh Physical deconditioning/right sided hemiparesis - OOB to stretcher chair daily - PT/OT following PROPH: - sqh 5000 q12h (2 weeks post bleed, stable). Pepcid for GI prophylaxis Discharge Planning Needs detention facility placement Linnea Simons MD Sep 27, 2017 13:46
--- NOTE | 2017-09-27 15:54 | HHI.PR ---
Subjective Remarks OPENS EES NO DISTRESS TRACH [place] Objective Vital Signs Date Time Temp Pulse Resp B/P (MAP) Pulse Ox O2 Delivery O2 Flow Rate FiO2 09/27/17 15:00 T-Piece 6.00 28 09/27/17 12:30 T-Piece 6.00 28 09/27/17 12:00 99.8 85 20 148/82 (104) 97 09/27/17 09:59 98 T-piece 28 09/27/17 09:12 T-Piece 6.00 28 09/27/17 08:00 99.1 81 20 143/75 (97) 97 09/27/17 08:00 83 09/27/17 04:00 T-Piece 6.00 28 09/27/17 04:00 99.4 83 17 131/60 (83) 99 09/27/17 03:46 78 09/27/17 00:00 T-Piece 6.00 28 09/27/17 00:00 99.6 75 17 143/77 (99) 99 09/26/17 22:44 75 09/26/17 20:00 T-Piece 6.00 28 09/26/17 20:00 99.9 81 19 144/72 (96) 99 09/26/17 19:47 83 09/26/17 19:37 T-piece 6.00 28 09/26/17 16:08 98.3 81 20 118/60 (79) 100 09/26/17 16:00 79 09/26/17 16:00 T-Piece 6.00 28 I/O 09/26/17 09/26/17 09/26/17 09/27/17 09/27/17 09/27/17 06:59 14:59 22:59 06:59 14:59 22:59 Intake Total 1720 ml 0 ml 0 ml Output Total 1800 ml 850 ml 475 ml 2100 ml Balance -80 ml -850 ml -475 ml -2100 ml Intake Oral 0 ml 0 ml 0 ml Tube Feeding 700 ml Tube Irrigant 120 ml Other 900 ml Output Urine Total 1800 ml 850 ml 475 ml 2100 ml # Voids 2 # Bowel Movements 1 0 Result Diagram: 09/27/1715 09/27/1715 Objective Remarks GENERAL: SKIN: Warm and dry. HEAD: Atraumatic. Normocephalic. EYES: Pupils equal and round. No scleral icterus. No injection or drainage. ENT: No nasal bleeding or discharge. Mucous membranes pink and moist. NECK: Trachea midline. No JVD. CARDIOVASCULAR: Regular rate and rhythm. RESPIRATORY: No accessory muscle use. Clear to auscultation. Breath sounds equal bilaterally. GASTROINTESTINAL: Abdomen soft, non-tender, nondistended. Hepatic and splenic margins not palpable. MUSCULOSKELETAL: Extremities without clubbing, cyanosis, or edema. No obvious deformities. NEUROLOGICAL: Awake and alert. No obvious cranial nerve deficits. Motor grossly within normal limits. Five out of 5 muscle strength in the arms and legs. Normal speech. PSYCHIATRIC: Appropriate mood and affect; insight and judgment normal. Assessment and Plan Assessment and Plan RESPIRATORY FAILURE S/P TRACH S/P CVA OBESITY HTN PLAN O2 NEEDED PULM TOILET INCREASE ACTIVITY REMOVE TRACH WHEN POSSIBLE Wang Piña MD Sep 27, 2017 15:54
[2017-09-27 15:55] LABS: HEMOGLOBIN A1C 9.1 % (4.3-6.0)
[2017-09-27] MEDS: ATORVASTATIN 40 MG TAB DOBHOFF SCH (21:53)
[2017-09-28] VITALS (12 sets, daily range): BP systolic 119–146; BP diastolic 64–79; PULSE 76–97; RESP 16–20; TEMP 97.1–99.3; O2SAT 95–99
[2017-09-28] MEDS: FREE WATER G-TUBE SCH ×6 (03:17→23:39)
[2017-09-28] MEDS: CHLORHEXIDINE GLUCONATE 2 % 1 PACK (2 CLOTHS) TOP SCH (03:17)
[2017-09-28] MEDS: cloNIDine HCL 0.3 MG TAB G-TUBE SCH ×3 (05:12→20:47)
[2017-09-28] MEDS: INSULIN ASPART SUPPLEMENTAL SCALE SQ SCH ×4 (05:12→23:39)
[2017-09-28] MEDS: PROPRANOLOL HCL 40 MG TAB G-TUBE SCH ×4 (05:12→23:39)
[2017-09-28] MEDS: hydrALAZINE HCL 100 MG TAB G-TUBE SCH ×3 (05:12→20:47)
[2017-09-28] MEDS: QUEtiapine FUMARATE 25 MG TAB G-TUBE SCH ×3 (05:12→20:47)
[2017-09-28] MEDS: FLUTICASONE PROPIONATE 50 MCG/ACT 16 GM NASAL SPRAY EACH NARE SCH (08:19)
[2017-09-28] MEDS: CHLORHEXIDINE 0.12% (ORAL KIT) 15 ML CUP MT SCH ×2 (08:19→20:48)
[2017-09-28] MEDS: DOCUSATE SODIUM 50 MG/SENNA 8.6 MG TAB G-TUBE SCH ×2 (08:20→20:47)
[2017-09-28] MEDS: FAMOTIDINE 20 MG TAB NG SCH ×2 (08:20→20:47)
[2017-09-28] MEDS: CEFUROXIME AXETIL 500 MG TAB PO SCH ×2 (08:20→20:47)
[2017-09-28] MEDS: POLYETHYLENE GLYCOL 17 GM PKG G-TUBE SCH ×2 (08:20→20:47)
[2017-09-28] MEDS: HEPARIN SODIUM - SQ 10,000 UNITS/ML VIAL SQ SCH (08:20)
--- NOTE | 2017-09-28 08:59 | HHI.PR ---
Subjective Remarks OPENS EyES NO DISTRESS TRACH [place] Objective Vital Signs Date Time Temp Pulse Resp B/P (MAP) Pulse Ox O2 Delivery O2 Flow Rate FiO2 09/28/17 08:38 99 T-piece 28 09/28/17 08:00 T-Piece 6.00 28 09/28/17 06:18 97 T-piece 6.00 28 09/28/17 04:00 T-Piece 6.00 28 09/28/17 04:00 99.1 81 18 146/79 (101) 98 09/28/17 03:42 83 09/28/17 00:00 98.5 80 18 134/67 (89) 97 09/28/17 00:00 T-Piece 6.00 28 09/27/17 23:59 80 09/27/17 20:01 81 09/27/17 20:00 99.2 82 18 137/85 (102) 99 09/27/17 20:00 T-Piece 6.00 28 09/27/17 17:00 T-Piece 6.00 28 09/27/17 16:00 87 09/27/17 16:00 T-Piece 6.00 28 09/27/17 16:00 98.9 85 20 153/78 (103) 95 09/27/17 15:00 T-Piece 6.00 28 09/27/17 12:30 T-Piece 6.00 28 09/27/17 12:00 99.8 85 20 148/82 (104) 97 09/27/17 12:00 82 09/27/17 09:59 98 T-piece 28 09/27/17 09:12 T-Piece 6.00 28 I/O 09/27/17 09/27/17 09/27/17 09/28/17 09/28/17 09/28/17 07:00 15:00 23:00 07:00 15:00 23:00 Intake Total 0 ml Output Total 2100 ml 550 ml Balance -2100 ml -550 ml Intake Oral 0 ml Output Urine Total 2100 ml 550 ml # Voids 2 Result Diagram: 09/27/1781409/27/17814 Objective Remarks GENERAL: SKIN: Warm and dry. HEAD: Atraumatic. Normocephalic. EYES: Pupils equal and round. No scleral icterus. No injection or drainage. ENT: No nasal bleeding or discharge. Mucous membranes pink and moist. NECK: Trachea midline. No JVD. CARDIOVASCULAR: Regular rate and rhythm. RESPIRATORY: No accessory muscle use. Clear to auscultation. Breath sounds equal bilaterally. GASTROINTESTINAL: Abdomen soft, non-tender, nondistended. Hepatic and splenic margins not palpable. MUSCULOSKELETAL: Extremities without clubbing, cyanosis, or edema. No obvious deformities. NEUROLOGICAL: Awake and alert. No obvious cranial nerve deficits. Motor grossly within normal limits. Five out of 5 muscle strength in the arms and legs. Normal speech. PSYCHIATRIC: Appropriate mood and affect; insight and judgment normal. Assessment and Plan Assessment and Plan RESPIRATORY FAILURE S/P TRACH S/P CVA OBESITY HTN PLAN O2 NEEDED PULM TOILET INCREASE ACTIVITY REMOVE TRACH WHEN POSSIBLE Wang Piña MD Sep 28, 2017 08:59
[2017-09-28 09:43] LABS: MEAN CELL VOLUME 82.7 FL (80.0-100.0); MEAN CORPUSCULAR HEMOGLOBIN 26.6 PG (27.0-34.0); MEAN CORPUSCULAR HGB CONC 32.2 % (32.0-36.0); MEAN PLATELET VOLUME 10.7 FL (7.0-11.0); PLATELET COUNT 128 TH/MM3 (150-450); RED BLOOD COUNT 2.42 MIL/MM3 (4.50-5.90); RED CELL DISTRIBUTION WIDTH 14.9 % (11.6-17.2); WHITE BLOOD COUNT 5.2 TH/MM3 (4.0-11.0)
[2017-09-28 09:47] LABS: HEMOGLOBIN 6.4 GM/DL (13.0-17.0)
[2017-09-28 10:04] LABS: BICARBONATE 27.5 MEQ/L (21.0-32.0); CALCIUM 8.6 MG/DL (8.5-10.1); CREATININE 1.21 MG/DL (0.60-1.30)
[2017-09-28] MEDS ORDERED: SODIUM CHLOR 0.9% 250 ML INJ 250 ML IV ONE (10:15)
[2017-09-28] MEDS: INSULIN DETEMIR 100 UNITS/ML VIAL SQ SCH ×2 (11:48→23:39)
--- NOTE | 2017-09-28 15:18 | HHI.PR ---
Subjective Remarks I was notified of critical H&H this morning. The patient did not have any signs of bleeding or symptoms of anemia. A repeat H&H was ordered, prophylactic heparin held. Patients clinical status is unchanged otherwise. He opens his eyes and can follow some commands intermittently. Objective Vitals Vital Signs Date Time Temp Pulse Resp B/P (MAP) Pulse Ox O2 Delivery O2 Flow Rate FiO2 09/28/17 14:16 Room Air 6.00 28 09/28/17 12:09 Room Air 09/28/17 12:00 98.8 83 20 144/78 (100) 98 09/28/17 12:00 85 09/28/17 10:17 80 09/28/17 08:38 99 T-piece 28 09/28/17 08:00 99.3 97 20 119/64 (82) 97 09/28/17 08:00 T-Piece 6.00 28 09/28/17 06:18 97 T-piece 6.00 28 09/28/17 04:00 T-Piece 6.00 28 09/28/17 04:00 99.1 81 18 146/79 (101) 98 09/28/17 03:42 83 09/28/17 00:00 98.5 80 18 134/67 (89) 97 09/28/17 00:00 T-Piece 6.00 28 09/27/17 23:59 80 09/27/17 20:01 81 09/27/17 20:00 99.2 82 18 137/85 (102) 99 09/27/17 20:00 T-Piece 6.00 28 09/27/17 17:00 T-Piece 6.00 28 09/27/17 16:00 87 09/27/17 16:00 T-Piece 6.00 28 09/27/17 16:00 98.9 85 20 153/78 (103) 95 I/O 09/27/17 09/27/17 09/27/17 09/28/17 09/28/17 09/28/17 07:00 15:00 23:00 07:00 15:00 23:00 Intake Total 0 ml Output Total 2100 ml 550 ml 550 ml Balance -2100 ml -550 ml -550 ml Intake Oral 0 ml Output Urine Total 2100 ml 550 ml 550 ml # Voids 2 # Bowel Movements 1 Result Diagram: 09/28/1782417 0825 Imaging Laboratory Tests Test 09/28/17 08:25 09/28/17 15:11 White Blood Count 5.2 8.2 Red Blood Count 2.42 2.88 Hemoglobin 6.4 7.6 Hematocrit 20.0 23.5 Mean Corpuscular Volume 82.7 81.6 Mean Corpuscular Hemoglobin 26.6 26.4 Mean Corpuscular Hemoglobin Concent 32.2 32.3 Red Cell Distribution Width 14.9 15.3 Platelet Count 128 267 Mean Platelet Volume 10.7 9.8 Blood Urea Nitrogen 25 Creatinine 1.21 Random Glucose 155 Calcium Level 8.6 Sodium Level 139 Potassium Level 4.8 Chloride Level 102 Carbon Dioxide Level 27.5 Anion Gap 10 Estimat Glomerular Filtration Rate 79 Date/Time Source Procedure Growth Status 09/27/17 08:20 Blood Peripheral Aerobic Blood Culture - Preliminary NO GROWTH IN 1 DAY Resulted 09/27/17 08:20 Blood Peripheral Anaerobic Blood Culture - Preliminary NO GROWTH IN 1 DAY Resulted 09/28/17 13:45 Stool Stool Stool Occult Blood (ALEXIS) - Final HEMOCCULT NEGATIVE Complete 09/12/17 06:00 Respiratory MRSA Surveillance Culture - Final NO MRSA ISOLATED Complete 09/27/17 09:45 Urine Catheterized Urine Urine Culture - Preliminary Gram Negative Adan Resulted Objective Remarks GENERAL: Obese male, trached, sitting in the chair CARDIOVASCULAR: Normal rate and regular rhythm without murmurs, gallops, or rubs. RESPIRATORY: Trached. Coarse upper airway sounds diffusely. Diminished breath sounds at the bases. Some faint rhonchi, left base. GASTROINTESTINAL: Abdomen soft, non-tender, PEG in place. Normal active bowel sounds MUSCULOSKELETAL: Extremities without cyanosis, or edema. NEURO: Awake, follow commands. Right sided hemiparesis. Left upper and left lower extremity strength 4 out of 5. PSYCH: Appropriate mood and affect. Procedures Tracheostomy and PEG placement A/P Problem List: (1) Intracranial hemorrhage ICD Code: I62.9 - Nontraumatic intracranial hemorrhage, unspecified Status: Acute Assessment and Plan 46-year-old male with left thalamic hypertensive hemorrhagic CVA. ICH score 2. Patient with significant right sided hemiparesis. Slow neurological improvement. He can follow commands and have some strength on the left side. Had issues with angioedema earlier in the hospitalization. This is also improving. Patient has had a prolonged ICU course. He has been transferred to the floor. Acute encephalopathy - resolving. Left Thalamic Hemorrhage, with IV extension Intracerebral Hemorrhage - Repeat CT of the head showed improving bleed - Neurosurgery following. Continue neurochecks. Repeat head CT for any decline in neuro status. - Continue rehabilitation efforts with PT, OT, speech - On Seroquel to control agitated delirium. Roxicodone as needed for pain Anemia: There has been no evidence of any new bleeding since his hemorrhage on admission. No signs of GI bleeding. However he is H&H has been trending down. Hemoglobin down to 7.6 today. The initial report of a hemoglobin of 6.4 was probably due to a bad sample. Hold off transfusion for now. Repeat labs in the morning. Obtain iron studies. Send stool for Hemoccult - Consider hematology consult tomorrow if his H&H continues to decline. Healthcare associated pneumonia: Previously treated with antibiotics. - on 09/25 Patient recurrent fever and new leukocytosis. His chest x-ray shows stable left lower lobe consolidation. Previously completed treatment with antibiotics. Last antibiotics dose was about a week ago for Klebsiella. - Given worsening cough, fever, and leukocytosis. Continue Ceftin for a 7 day course. We'll consult ID if no improvement. - Improving. Afebrile. UTI: Urine is growing gram-negative rods. Continue cefuroxime as above. Follow urine cultures Respiratory failure s/p trach - Tolerating T piece - CT of the chest 09/13/17 -LLL infiltrate. Repeat chest x-ray on 09/26/17 shows stable left lower lobe consolidation - DuoNeb every 6 hours scheduled and when necessary -Patient had angioedema, source unclear and was seen by ENT. He was treated with steroids. Per ENT, expect slow improvement. This is resolving. -Appreciate pulmonology following for trach management Hyperglycemia - persistent. - Continue Levemir 20 units SQ q12h - Continue sliding scale insulin with Accu-Cheks. - hemoglobin A1c pending Hypertension - Intermittent hypertension now well controlled - Continue clonidine, amlodipine and propranolol - Continue hydralazine to 100mg po q8hr. Nutrition status: - Status post PEG tube continue tube feeds - Having bowel movements - Continue Free water 300mL per tube q4h - Pepcid per tube Acute kidney injury, most likely has CK D per nephrology: Renal function stabilized. - Follow I/oh Physical deconditioning/right sided hemiparesis - OOB to stretcher chair daily - PT/OT following PROPH: - sqh 5000 q12h (2 weeks post bleed, stable). Pepcid for GI prophylaxis DVT: SCDs. Heparin on hold for now given anemia. Discharge Planning Needs shelter facility placement CM following. Linnea Simons MD Sep 28, 2017 15:18
[2017-09-28 15:41] LABS: HEMATOCRIT 23.5 % (39.0-51.0); HEMOGLOBIN 7.6 GM/DL (13.0-17.0); MEAN CELL VOLUME 81.6 FL (80.0-100.0); MEAN CORPUSCULAR HEMOGLOBIN 26.4 PG (27.0-34.0); MEAN CORPUSCULAR HGB CONC 32.3 % (32.0-36.0); MEAN PLATELET VOLUME 9.8 FL (7.0-11.0); PLATELET COUNT 267 TH/MM3 (150-450); RED BLOOD COUNT 2.88 MIL/MM3 (4.50-5.90); RED CELL DISTRIBUTION WIDTH 15.3 % (11.6-17.2); WHITE BLOOD COUNT 8.2 TH/MM3 (4.0-11.0)
--- NOTE | 2017-09-28 17:30 | HHI.NSPN ---
(RamaJames) History Chief Complaint: Unable to obtain due to patient's clinical condition. (RamaJames) Interval History 08/29: History of hypertension who was brought to the emergency room per [facility] after being found with altered mental status, right hemiparesis. He had reportedly been seen to be normal approximately 3-1/2 hours prior. Systolic blood pressure greater than 260/130 on initial evaluation. No seizure activity reported. Positive emesis. Per emergency room personnel the patient was responding verbally, difficulty raising his right arm upon initial arrival. He was intubated in the emergency room and a stat CT scan accomplished which has revealed a primarily left thalamic intracranial hemorrhage. 09/01/17: Patient remains intubated and sedated. :09/02: intubated and well sedated, not tolerating sedation vacation due to increase in blood pressure. 09/03/17: Remains on propofol and fentanyl IV for ventilator control. Positive agitation with decreased sedation 09/04/17: Pt sedated on Diprivan and Fentanyl drip. Not following commands. Pt on Cardene drip. Intubated. 09/05/17: Pt sedated on Diprivan and Fentanyl drip. Not following commands. Pt on Cardene drip. Intubated. Pupils 2mm bilaterally, NR bilaterally. 09/06/17: Remains intubated. PEG tube placed today. On Decadron and Benadryl for angioedema. Lisinopril discontinued 09/07. The patient is obtunded but is sedated with propofol. Nursing reports that the patient does have bleeding secondary to his PEG tube being placed yesterday. The family reports that the plan is to do a tracheostomy tomorrow. Nursing does say the patient does withdraw to stimulation, has a cough and gag reflex but his pupils are nonreactive. 09/10: The patient continues to be obtunded although he has sedation infusing at a low dose. He is trached and tolerating a CPAP trial. 09/13: Obtunded versus lethargic. He is not on any sedation. He is trached and mechanically ventilated. He went for a CT brain this morning. Nursing reports that the patient does withdraw to noxious stimulation and that the pupils are sluggish. 09/14: The patient has his eyes open when seen. He continues to be trached and mechanically ventilated. Nursing this morning reports that the patient gave a thumbs up on the left hand to command for him. 09/15: Pt off sedative drips. Pupils 2mm bilaterally slight reaction bilaterally. Not following commands. Not opening eyes. 09/16: When seen this morning the patient appears lethargic. He is trached and on T-piece. Nursing reports that the patient was more alert and did give a thumbs up to command this morning prior to receiving diphenhydramine. He also reported no movement to the right side. 09/17: No acute events overnight. Patient up in chair 09/18: No acute events overnight. Patient remains hypertensive. He is in bed with at his side. 09/19: Persistent hypertension overnight. 09/20/2017: Tracheostomy in place. Upper endoscopy performed 09/19/17 with findings of small amount of bleeding at the PEG site. 09/22: The patient is awake when seen. He does interact. 09/23: This morning the patient does have his eyes closed but opens them to voice. He does follow commands with the left side extremities and it appears he does track. 09/24: When seen the patient is awake and looks towards my voice. He does follow commands on the left and appears to track with the eyes. No movement of the right noted. 09/27: The patient is moving the left arm spontaneously to wipe his face. He continues to have some mild swelling to the tongue. He was transferred from [facility] to a regular med/surg floor on . 09/28: This afternoon the patient is asleep but awakens to noxious stimulation. His family states that he was extremely tired. Once awake he did interact. (James Ontiveros) System Review Comments Unable to obtain due to patient's clinical condition. (James Ontiveros) Exam Results 09/26/17 09/26/17 09/27/17 09/27/17 09/28/17 09/28/17 05:59 17:59 05:59 17:59 05:59 17:59 Intake Total 1720 ml 0 ml Output Total 2050 ml 2275 ml 2650 ml 1150 ml Balance -2050 ml -555 ml -2650 ml -1150 ml Intake Oral 0 ml 0 ml Tube Feeding 700 ml Tube Irrigant 120 ml Other 900 ml Output Urine Total 2050 ml 2275 ml 2650 ml 1150 ml # Voids 2 # Bowel Movements 2 1 1 Vital Signs Date Time Temp Pulse Resp B/P (MAP) Pulse Ox O2 Delivery O2 Flow Rate FiO2 09/28/17 16:00 79 09/28/17 16:00 98.2 80 20 128/65 (86) 95 09/28/17 14:16 Room Air 6.00 28 09/28/17 12:09 Room Air 09/28/17 12:00 98.8 83 20 144/78 (100) 98 09/28/17 12:00 85 09/28/17 10:17 80 09/28/17 08:38 99 T-piece 28 09/28/17 08:00 99.3 97 20 119/64 (82) 97 09/28/17 08:00 T-Piece 6.00 28 09/28/17 06:18 97 T-piece 6.00 28 09/28/17 04:00 T-Piece 6.00 28 09/28/17 04:00 99.1 81 18 146/79 (101) 98 09/28/17 03:42 83 09/28/17 00:00 98.5 80 18 134/67 (89) 97 09/28/17 00:00 T-Piece 6.00 28 09/27/17 23:59 80 09/27/17 20:01 81 09/27/17 20:00 99.2 82 18 137/85 (102) 99 09/27/17 20:00 T-Piece 6.00 28 09/27/17 17:00 T-Piece 6.00 28 09/27/17 16:00 87 09/27/17 16:00 T-Piece 6.00 28 09/27/17 16:00 98.9 85 20 153/78 (103) 95 09/27/17 15:00 T-Piece 6.00 28 09/27/17 12:30 T-Piece 6.00 28 09/27/17 12:00 99.8 85 20 148/82 (104) 97 09/27/17 12:00 82 09/27/17 09:59 98 T-piece 28 09/27/17 09:12 T-Piece 6.00 28 09/27/17 08:00 99.1 81 20 143/75 (97) 97 09/27/17 08:00 83 09/27/17 04:00 T-Piece 6.00 28 09/27/17 04:00 99.4 83 17 131/60 (83) 99 09/27/17 03:46 78 09/27/17 00:00 T-Piece 6.00 28 09/27/17 00:00 99.6 75 17 143/77 (99) 99 09/26/17 22:44 75 09/26/17 20:00 T-Piece 6.00 28 09/26/17 20:00 99.9 81 19 144/72 (96) 99 09/26/17 19:47 83 09/26/17 19:37 T-piece 6.00 28 09/26/17 16:08 98.3 81 20 118/60 (79) 100 09/26/17 16:00 79 09/26/17 16:00 T-Piece 6.00 28 09/26/17 12:35 98 T-piece 6.00 28 09/26/17 12:08 99.6 83 20 114/62 (79) 97 09/26/17 12:00 T-Piece 6.00 09/26/17 09:51 99.3 09/26/17 09:12 101.0 84 18 125/62 (83) 99 09/26/17 08:00 85 09/26/17 08:00 T-Piece 6.00 28 09/26/17 04:00 100.5 84 18 146/81 (102) 97 09/26/17 04:00 T-Piece 6.00 28 09/26/17 03:49 87 09/26/17 00:00 99.7 76 19 131/73 (92) 97 09/26/17 00:00 T-Piece 6.00 28 09/25/17 23:45 80 09/25/17 22:07 96 T-piece 6.00 28 09/25/17 20:00 99.4 82 19 137/67 (90) 96 09/25/17 19:43 81 (James Ontiveros) Physical Examination GENERAL: Asleep but awakens to noxious stimulation, interacts after that although does require some coaxing at times, no evident distress. HEENT: Normocephalic, atraumatic. Left pupil 4 mm & right pupil 5 mm, slight reaction, disconjugate gaze. Edematous tongue slowly improving. MUSCULOSKELETAL: Moves left-sided extremities, apparent right hemiplegia, no evident clubbing or deformity. NEUROLOGICAL: Asleep but awakens to noxious stimulation. Left pupil 4 mm & right pupil 5 mm, slight reaction, does appear to track. Persistent disconjugate extraocular movements. Nonverbal, trached. Spontaneously moves LUE. Moves LLE to command. No movement of right extremities to noxious stimulation but does have facial grimacing. (James Ontiveros) Lab, Micro, Other Results Recent Impressions Chest X-Ray 09/26/17 0000 Signed Impressions: Service Date/Time: Tuesday, September 26, 2017 09:45 - CONCLUSION: Stable examination with left basilar consolidation/effusion. Reyes Guzman MD Laboratory Tests Test 09/26/17 07:25 09/27/17 08:15 09/27/17 09:45 09/28/17 08:25 White Blood Count 15.6 TH/MM3 9.3 TH/MM3 5.2 TH/MM3 Red Blood Count 3.13 MIL/MM3 3.31 MIL/MM3 2.42 MIL/MM3 Hemoglobin 8.7 GM/DL 8.8 GM/DL 6.4 GM/DL Hematocrit 25.6 % 27.4 % 20.0 % Mean Corpuscular Volume 81.7 FL 82.6 FL 82.7 FL Mean Corpuscular Hemoglobin 28.0 PG 26.6 PG 26.6 PG Mean Corpuscular Hemoglobin Concent 34.2 % 32.2 % 32.2 % Red Cell Distribution Width 15.1 % 15.2 % 14.9 % Platelet Count 204 TH/MM3 255 TH/MM3 128 TH/MM3 Mean Platelet Volume 11.2 FL 10.6 FL 10.7 FL Hematology Comments Blood Urea Nitrogen 30 MG/DL 28 MG/DL 25 MG/DL Creatinine 1.44 MG/DL 1.39 MG/DL 1.21 MG/DL Random Glucose 153 MG/DL 159 MG/DL 155 MG/DL Calcium Level 8.3 MG/DL 8.7 MG/DL 8.6 MG/DL Magnesium Level 2.2 MG/DL Sodium Level 139 MEQ/L 139 MEQ/L 139 MEQ/L Potassium Level 4.6 MEQ/L 3.9 MEQ/L 4.8 MEQ/L Chloride Level 105 MEQ/L 103 MEQ/L 102 MEQ/L Carbon Dioxide Level 24.2 MEQ/L 30.5 MEQ/L 27.5 MEQ/L Anion Gap 10 MEQ/L 6 MEQ/L 10 MEQ/L Estimat Glomerular Filtration Rate 65 ML/MIN 67 ML/MIN 79 ML/MIN Hemoglobin A1c 9.1 % Urine Color LIGHT-YELLOW Urine Turbidity CLEAR Urine pH 5.5 Urine Specific [place] 1.008 Urine Protein NEG mg/dL Urine Glucose (UA) NEG mg/dL Urine Ketones NEG mg/dL Urine Occult Blood NEG Urine Nitrite NEG Urine Bilirubin NEG Urine Urobilinogen LESS THAN 2.0 MG/DL Urine Leukocyte Esterase TRACE Urine RBC 1 /hpf Urine WBC 4 /hpf Urine Squamous Epithelial Cells 1 /hpf Urine Amorphous Sediment RARE Urine Bacteria RARE /hpf Urine Mucus FEW /lpf Microscopic Urinalysis Comment CATH-CULTURE IND Test 09/28/17 15:11 White Blood Count 8.2 TH/MM3 Red Blood Count 2.88 MIL/MM3 Hemoglobin 7.6 GM/DL Hematocrit 23.5 % Mean Corpuscular Volume 81.6 FL Mean Corpuscular Hemoglobin 26.4 PG Mean Corpuscular Hemoglobin Concent 32.3 % Red Cell Distribution Width 15.3 % Platelet Count 267 TH/MM3 Mean Platelet Volume 9.8 FL (James Ontiveros) Medical Decision Making Impression and Plan Impression: 1. Large thalamic intracranial hemorrhage. 2. Hypertension 3. Klebsiella pneumonia The patient continues to be stable neurologically with a persistent right hemiplegia. CT brain w/improvement of left thalamic haemorrhage, decreased midline shift, blood noted in posterior horns, no acute findings. Plan: Primary management per Hospitalist. Neuro checks. Stat CT brain for any decline in neuro status. Abx per Infectious Disease. Palliative Care consult. Continue full supportive care measures per family. (James Ontiveros) Attending Statement The exam, history, and the medical decision-making described in the above note were completed with the assistance of the mid-level provider. I reviewed and agree with the findings presented. I attest that I had a [id number] encounter with the patient on the same day, and personally performed and documented my assessment and findings in the medical record. On my examination of 09/29/2017 evening, the patient is resting quietly. He arouses to voice. He tracks to the left with disconjugate gaze. Follows commands with left upper and lower extremity. Persistent right hemiplegia. Slow improvement in neurologic function Stable for discharge to senior care-rehabilitation from neurosurgical standpoint. Continue to follow intermittently during this hospitalization. (Orville Tinajero MD) James Ontiveros Sep 28, 2017 17:30 Orville Tinajero MD Sep 29, 2017 00:09
[2017-09-28] MEDS: SODIUM CHLORIDE 0.9% FLUSH 10 ML FLUSH IVF PRN (20:47)
[2017-09-28] MEDS: ATORVASTATIN 40 MG TAB DOBHOFF SCH (20:47)
[2017-09-29] VITALS (11 sets, daily range): BP systolic 137–159; BP diastolic 75–87; PULSE 71–83; RESP 16–20; TEMP 98.6–99.5; O2SAT 96–100
[2017-09-29] MEDS: RESP: ALBUTEROL 2.5 MG/3 ML NEB (PRN) NEB (00:45)
[2017-09-29] MEDS: ACETAMINOPHEN 325 MG TAB G-TUBE PRN (01:17)
[2017-09-29] MEDS: CHLORHEXIDINE GLUCONATE 2 % 1 PACK (2 CLOTHS) TOP SCH (03:44)
[2017-09-29] MEDS: FREE WATER G-TUBE SCH ×5 (03:44→20:39)
[2017-09-29] MEDS: hydrALAZINE HCL 100 MG TAB G-TUBE SCH ×3 (06:13→20:41)
[2017-09-29] MEDS: QUEtiapine FUMARATE 25 MG TAB G-TUBE SCH ×3 (06:13→20:42)
[2017-09-29] MEDS: PROPRANOLOL HCL 40 MG TAB G-TUBE SCH ×3 (06:13→17:43)
[2017-09-29] MEDS: cloNIDine HCL 0.3 MG TAB G-TUBE SCH ×3 (06:13→20:41)
[2017-09-29] MEDS: INSULIN ASPART SUPPLEMENTAL SCALE SQ SCH ×3 (06:26→17:43)
[2017-09-29 07:30] LABS: HEMATOCRIT 21.9 % (39.0-51.0); HEMOGLOBIN 7.3 GM/DL (13.0-17.0); MEAN CELL VOLUME 82.1 FL (80.0-100.0); MEAN CORPUSCULAR HEMOGLOBIN 27.3 PG (27.0-34.0); MEAN CORPUSCULAR HGB CONC 33.2 % (32.0-36.0); MEAN PLATELET VOLUME 9.8 FL (7.0-11.0); PLATELET COUNT 272 TH/MM3 (150-450); RED BLOOD COUNT 2.66 MIL/MM3 (4.50-5.90); RED CELL DISTRIBUTION WIDTH 14.9 % (11.6-17.2); WHITE BLOOD COUNT 6.2 TH/MM3 (4.0-11.0)
[2017-09-29] MEDS: CHLORHEXIDINE 0.12% (ORAL KIT) 15 ML CUP MT SCH ×2 (08:00→20:39)
[2017-09-29 08:02] LABS: % SATURATION IRON PROFILE 9.3 % (20-50); BICARBONATE 32.1 MEQ/L (21.0-32.0); BLOOD UREA NITROGEN 25 MG/DL (7-18); CALCIUM 8.8 MG/DL (8.5-10.1); CHLORIDE 101 MEQ/L (98-107); CREATININE 1.14 MG/DL (0.60-1.30); GLOMERULAR FILTRATION RATE 85 ML/MIN (>89); GLUCOSE,RANDOM 141 MG/DL (74-106); IRON (FE) 22 MCG/DL (65-175); SODIUM (NA) 138 MEQ/L (136-145); TOTAL IRON BINDING CAPACITY 237 MCG/DL (250-450)
[2017-09-29 08:36] LABS: FERRITIN 440 NG/ML (26-388); FOLATE 7.6 NG/ML (3.1-17.5)
[2017-09-29] MEDS: FLUTICASONE PROPIONATE 50 MCG/ACT 16 GM NASAL SPRAY EACH NARE SCH (09:00)
--- NOTE | 2017-09-29 09:32 | HHI.PR ---
Subjective Remarks in no acute distress. trach in place. awake. afebrile. Objective Vitals Vital Signs Date Time Temp Pulse Resp B/P (MAP) Pulse Ox O2 Delivery O2 Flow Rate FiO2 09/29/17 04:08 76 09/29/17 04:00 98.6 77 16 139/76 (97) 99 09/29/17 00:58 99 T-piece 6.00 28 09/29/17 00:10 81 09/29/17 00:00 99.0 83 16 137/75 (95) 98 09/28/17 20:31 77 09/28/17 20:17 T-Piece 6.00 28 09/28/17 20:00 97.1 76 16 135/74 (94) 99 09/28/17 18:30 Room Air 6.00 28 09/28/17 17:50 95 T-piece 6.00 28 09/28/17 16:00 79 09/28/17 16:00 98.2 80 20 128/65 (86) 95 09/28/17 14:16 Room Air 6.00 28 09/28/17 12:09 Room Air 09/28/17 12:00 98.8 83 20 144/78 (100) 98 09/28/17 12:00 85 09/28/17 10:17 80 I/O 09/28/17 09/28/17 09/28/17 09/29/17 09/29/17 09/29/17 07:00 15:00 23:00 07:00 15:00 23:00 Intake Total 1635 ml Output Total 550 ml 600 ml 1400 ml Balance -550 ml -600 ml 235 ml Tube Feeding 735 ml Other 900 ml Output Urine Total 550 ml 600 ml 1400 ml # Bowel Movements 1 2 Result Diagram: 09/29/17 0707 09/29/17 0707 Imaging Last Impressions Chest X-Ray 09/26/17 0000 Signed Impressions: Service Date/Time: Tuesday, September 26, 2017 09:45 - CONCLUSION: Stable examination with left basilar consolidation/effusion. Reyes Guzman MD Maxillofacial CT 09/16/17 0000 Signed Impressions: Service Date/Time: September 01:03 - CONCLUSION: 1. Evidence of acute pansinusitis. 2. Opacification of multiple bilateral mastoid air cells most characteristic of mastoiditis. 3. Mildly prominent cervical chain nodes which may be reactive. Angelo Conn MD Upper Extremity Ultrasound 09/15/17 0000 Signed Impressions: Service Date/Time: Friday, September 15, 2017 17:14 - CONCLUSION: Occlusive thrombus within the left cephalic vein and nonocclusive thrombus within the right cephalic vein. Ric Jack MD Lower Extremity Ultrasound 09/15/17 0000 Signed Impressions: Service Date/Time: Friday, September 15, 2017 16:58 - CONCLUSION: No evidence of DVT within the lower extremities. Ric Jack MD Head CT 09/13/17 0800 Signed Impressions: Service Date/Time: Wednesday, September 13, 2017 09:17 - CONCLUSION: 1. Resolving left basal ganglia hematoma Natan Lagos MD Chest CT 09/13/17 0000 Signed Impressions: Service Date/Time: Wednesday, September 13, 2017 09:28 - CONCLUSION: 1. Bibasilar and left lingular dependent atelectatic changes. Lungs are otherwise clear. 2. Tracheostomy tube with the tip probably positioned above the connie. 3. Compensated cardiomegaly. Reyes Guzman MD Abdomen/Pelvis CT 09/13/17 0000 Signed Impressions: Service Date/Time: Wednesday, September 13, 2017 09:28 - CONCLUSION: 1. There is some stranding in the retroperitoneal perivascular tissues around the distal aorta extending into the bifurcation with a regional borderline lymph nodes. Findings are characteristic of a nonspecific inflammatory process. Findings could represent early retroperitoneal fibrosis.. 2. Urinary bladder is decompressed with some mural thickening in pericystic inflammatory changes possibly representing a chronic cystitis. Nondependent air could be associated with a recent catheterization/instrumentation. 3. Small umbilical and right inguinal hernias only contain fat. 4. Bilateral dependent basilar and left lingular atelectatic changes. Heart size is borderline prominent. 5. Otherwise , bowel is intact without obstruction to explain abdominal distention Reyes Guzman MD Abdomen X-Ray 09/10/17 0600 Signed Impressions: Service Date/Time: Sunday, September 10, 2017 03:56 - CONCLUSION: No significant abnormality is identified. There is mild distention of the colon but there are no findings to suggest bowel obstruction or significant ileus. Ignacio Underwood MD Liver Ultrasound 09/07/17 0000 Signed Impressions: Service Date/Time: Thursday, September 07, 2017 12:37 - CONCLUSION: 1. Unremarkable sonographic appearance of the liver. No evidence for hepatic volume loss or intrahepatic ductal dilatation. 2. No sonographic evidence for cholelithiasis or acute cholecystitis. 3. Mild increased right renal echogenicity may reflect medical renal disease. 4. Small bilateral pleural effusions. 5. Pancreas and inferior pole of the right kidney are obscured by bowel gas and therefore not evaluated. Darrell Robles MD Renal Ultrasound 08/31/17 0000 Signed Impressions: Service Date/Time: Thursday, August 31, 2017 17:42 - CONCLUSION: 1. No evidence of hydronephrosis on either side. 2. Solitary linear echogenic focus in the upper pole parenchyma of the right kidney has similar features to prior examination in January 2017 and possibly represents a calcification. David Snell MD Neck CTA 08/28/17 2347 Signed Impressions: Service Date/Time: Tuesday, August 29, 2017 00:13 - CONCLUSION: Negative carotid CTA. David Snell MD Head CTA 08/28/17 2347 Signed Impressions: Service Date/Time: Tuesday, August 29, 2017 00:13 - CONCLUSION: 1. No evidence of vessel truncation or aneurysm. 2. No abnormal vessels in the region of the large left thalamic hemorrhage. David Snell MD Objective Remarks GENERAL: in no apparent distress. Neck; trach in place. CARDIOVASCULAR: Regular rate and irregular rhythm without murmurs, gallops, or rubs. RESPIRATORY: Clear to auscultation. Breath sounds equal bilaterally. No wheezes , rales, or rhonchi. GASTROINTESTINAL: Abdomen soft, non-tender, nondistended. Normal, active bowel sounds-PEG in place. MUSCULOSKELETAL: Extremities without clubbing, cyanosis, or edema. NEURO: awake. Procedures Tracheostomy and PEG placement Medications and IVs Inpatient Medications Acetaminophen (Tylenol) 650 mg Q6H PRN G-TUBE PAIN 1-5 AND/OR FEVER >101F Last administered on 09/29/17t 01:17; Start 09/25/17 at 12:45 Albuterol Sulfate (Albuterol Neb) 2.5 mg Q2HR NEB PRN NEB sob/wheeze Last administered on 09/29/17 00:45; Start 09/25/17 at 13:30 Albuterol/ Ipratropium (Duoneb Neb) 1 ampule Q6HR NEB INH Last administered on 09/21/17 08:25; Start 09/17/17 at 16:00; Stop 09/21/17 at 15:59; Status DC Amlodipine Besylate (Norvasc) 10 mg DAILY G-TUBE Last administered on 08:20; Start 09/26/17 at 09:00 Atorvastatin Calcium (Lipitor) 40 mg HS DOBHOFF Last administered on 20:47; Start 09/25/17 at 21:00 Bisacodyl (Dulcolax Supp) 10 mg DAILY RECTAL Last administered on 08/31/17 11 :58; Start 08/31/17 at 12:00; Stop 09/25/17 at 09:30; Status DC Calcium Acetate (Phoslo) 667 mg TID PO Last administered on 09/08/17 10:38; Start 08/31/17 at 18:00; Stop 09/08/17 at 11:02; Status DC Cefuroxime Axetil (Ceftin) 500 mg Q12HR PO Last administered on 09/28/17 20: 47; Start 09/26/17 at 11:15; Stop 10/03/17 at 11:14 Chlorhexidine Gluconate (Chlorhexidine 2% Cloth) 3 pack IMPORT CUSTOMER SERVICE MANAGER PRN TOPICAL SEE LABEL COMMENTS; Start 09/05/17 at 23:00; Stop 09/08/17 at 22:59; Status DC Chlorhexidine Gluconate (Peridex 0.12% Liq) 15 ml BID@08,20 MT Last administered on 09/28/17 20:48; Start 08/29/17 at 08:00 Clonidine (Catapres) 0.3 mg Q8HR G-TUBE Last administered on 09/29/17 06:13; Start 09/25/17 at 14:00 Dantrolene Sodium (Dantrium Inj) 70 mg ONCE ONCE IV Last administered on 03:55; Start 09/13/17 at 03:00; Stop 09/13/17 at 03:01; Status DC Desmopressin Acetate (Ddavp Tae Spr) 1 spray ONCE ONCE EACH NARE Last administered on 09/07/17 15:00; Start 09/07/17 at 15:00; Stop 09/07/17 at 15 :01; Status DC Dexamethasone Sodium Phosphate (Decadron Inj) 6 mg Q12HR IV PUSH Last administered on 09/20/17 09:26; Start 09/17/17 at 21:00; Stop 09/20/17 at 20: 59; Status DC Dexmedetomidine HCl 50 ml @ 29.9 mls/hr TITRATE IV ; Start 08/30/17 at 14:15; Stop 08/30/17 at 14:46; Status DC Dexmedetomidine HCl 1000 mcg/ Sodium Chloride 250 ml @ 29.9 mls/hr TITRATE IV Last administered on 08/30/17 17:58; Start 08/30/17 at 16:45; Stop 08/31/17 at 06:14; Status DC Dexmedetomidine HCl 200 mcg/ Sodium Chloride 50 ml @ 29.9 mls/hr TITRATE IV Last administered on 08/30/17 15:27; Start 08/30/17 at 15:00; Stop 08/30/17 at 16:42; Status DC Dextrose 1,000 ml @ 42 mls/hr [id number] IV Last administered on 09/20/17 09:25 ; Start 09/19/17 at 08:45; Stop 09/20/17 at 11:39; Status DC Dextrose (D50w (Vial) Inj) 25 ml UNSCH PRN IV PUSH HYPOGLYCEMIA-SEE COMMENTS; Start 09/18/17 at 12:00 Diphenhydramine HCl (Benadryl Inj) 25 mg Q6H IV PUSH Last administered on 08:06; Start 09/15/17 at 15:00; Stop 09/18/17 at 14:59; Status DC Etomidate (Amidate Inj) 20 mg ONCE ONCE IVP ; Start 08/29/17 at 00:00; Stop 08/29/17 at 00:01; Status DC Famotidine (Pepcid) 20 mg BID NG Last administered on 09/28/17 20:47; Start 09/24/17 at 09:30 Fentanyl Citrate 250 ml @ 5 mls/hr TITRATE PRN IV SEDATION Last administered on 09/11/17 06:14; Start 08/29/17 at 00:45; Stop 09/11/17 at 10:20; Status DC Fluticasone Propionate (Flonase Tae Spr) 2 spray DAILY EACH NARE Last administered on 09/28/17 08:19; Start 09/05/17 at 17:00 Gelatin (Gelfoam 12 Mm/7 Mm Top) 1 foam Q2HR PRN TOPICAL if still bleeding from peg Last administered on 09/08/17 08:00; Start 09/07/17 at 19:45 Glucagon (Glucagon Inj) 1 mg UNSCH PRN OTHER HYPOGLYCEMIA-SEE COMMENTS; Start 09/25/17 at 09:30 Haloperidol Lactate (Haldol Inj) 5 mg Q4H PRN IV agitation Last administered on 09/12/17 23:04; Start 08/31/17 at 11:00; Stop 09/25/17 at 09:30; Status DC Heparin Sodium (Porcine) (Heparin Inj) 5,000 units Q12HR SQ Last administered on 09/28/17 08:20; Start 09/11/17 at 21:00; Status Future Hold Hydralazine HCl (Apresoline Inj) 10 mg Q30M PRN IV PUSH sbp > 160 Last administered on 09/19/17 09:08; Start 08/30/17 at 08:15 Hydralazine HCl (Apresoline) 100 mg Q8HR G-TUBE Last administered on 06:13; Start 09/25/17 at 14:00 Hydrochlorothiazide (Hydrodiuril) 25 mg DAILY PO Last administered on 10:37; Start 08/29/17 at 09:00; Stop 09/08/17 at 11:02; Status DC Insulin Aspart (NovoLOG SUPPLEMENTAL SCALE) 1 Q6H SQ Last administered on 09/29 06:26; Start 09/25/17 at 12:00 Insulin Detemir (Levemir Inj) 20 units Q12H SQ Last administered on 09/28/17 23:39; Start 09/19/17 at 10:00 Insulin Human Regular (NovoLIN R SUPPLEMENTAL SCALE) 1 Q4HR SQ Last administered on 09/25/17 04:09; Start 09/18/17 at 12:00; Stop 09/25/17 at 09: 28; Status DC Insulin Human Regular (NovoLIN R INJ) See Protocol Table ... IMP[employer] CUSTOMER SERVICE MANAGER PRN SQ SEE PROTOCOL TABLE; Start 09/05/17 at 23:00; Stop 09/08/17 at 22:59; Status DC Labetalol HCl (Trandate Inj) 10 mg Q20M PRN IV PUSH SBP>140, DBP>90 Last administered on 09/19/17 02:16; Start 08/29/17 at 00:45 Labetalol HCl (Trandate) 300 mg NOW ONCE PEG Last administered on 09/17/17 04 :23; Start 09/17/17 at 04:15; Stop 09/17/17 at 04:16; Status DC Lactated Ringer's 1,000 ml @ 30 mls/hr Q24H PRN IV SEE LABEL COMMENTS; Start 09/05/17 at 23:00; Stop 09/08/17 at 22:59; Status DC Lactulose (Lactulose Liq) 30 ml BID PO Last administered on 09/04/17 19:57; Start 08/31/17 at 12:00; Stop 09/25/17 at 09:30; Status DC Lidocaine HCl (Lidocaine Pf 2% Neb) 1 ml Q6HR NEB PRN NEB cough/bronchial irritation; Start 09/16/17 at 11:30 Lisinopril (Prinivil) 40 mg DAILY PO Last administered on 09/04/17 09:07; Start 08/29/17 at 09:00; Stop 09/04/17 at 12:18; Status DC Lorazepam (Ativan Inj) 1 mg ONCE ONCE IV PUSH Last administered on 09/13/17 02:57; Start 09/13/17 at 02:45; Stop 09/13/17 at 02:46; Status DC Lorazepam (Ativan) 1 mg Q12H PO Last administered on 09/09/17 20:27; Start 09/07/17 at 19:00; Stop 09/11/17 at 10:25; Status DC Magnesium Hydroxide (Milk Of Magnesia Liq) 30 ml Q12H PRN PO Mild constipation ; Start 08/29/17 at 00:45; Stop 08/31/17 at 11:08; Status DC Magnesium Citrate (Citroma Liq) 300 ml ONCE ONCE PO Last administered on 11/21 /17at 11:57; Start 08/31/17 at 12:00; Stop 08/31/17 at 12:01; Status DC Magnesium Oxide (Mag-Ox) 800 mg UNSCH PRN PO For Magnesium 1.2 - 1.6 mg/dL; Start 08/30/17 at 08:15; Stop 08/31/17 at 13:02; Status DC Magnesium Sulfate 2 gm/Sodium Chloride 100 ml @ 50 mls/hr UNSCH PRN IV For Magnesium 1.2 - 1.6 mg/dL; Start 08/30/17 at 08:15; Stop 08/31/17 at 13:02; Status DC Magnesium Sulfate 4 gm/Sodium Chloride 100 ml @ 50 mls/hr UNSCH PRN IV For Magnesium 0.9 - 1.1 mg/dL; Start 08/30/17 at 08:15; Stop 08/31/17 at 13:02; Status DC Magnesium Sulfate/ Dextrose 100 ml @ 100 mls/hr Q1H IV Last administered on 12:22; Start 08/31/17 at 12:00; Stop 08/31/17 at 13:00; Status DC Metoclopramide HCl (Reglan Inj) 5 mg Q8HR IV PUSH Last administered on 22:55; Start 09/09/17 at 22:00; Stop 09/11/17 at 10:25; Status DC Metoprolol Tartrate (Lopressor) 25 mg Q8H G-TUBE ; Start 09/25/17 at 13:00; Stop 09/25/17 at 13:00; Status DC Midazolam HCl (Versed Inj) 10 mg ONCE ONCE IV PUSH ; Start 09/08/17 at 13:00; Stop 09/08/17 at 13:41; Status DC Miscellaneous Information 1 [id number] Last administered on 08/29/17 01:00; Start 08/29/17 at 00:45 Modafinil (Provigil) 200 mg DAILY PO Last administered on 09/12/17 09:07; Start 09/11/17 at 12:00; Stop 09/25/17 at 09:30; Status DC Morphine Sulfate (Morphine Inj) 2 mg Q2H PRN IV PUSH breakthru pain; Start at 16:30 Nicardipine HCl 25 mg/Sodium Chloride 250 ml @ 50 mls/hr TITRATE PRN IV Blood pressure management Last administered on 09/17/17 04:57; Start 09/13/17 at 02: 45; Stop 09/17/17 at 12:47; Status DC Nicardipine HCl 50 mg/Sodium Chloride 500 ml @ 50 mls/hr TITRATE PRN IV BLOOD PRESSURE MANAGEMENT Last administered on 09/05/17 22:00; Start 09/02/17 at 21 :15; Stop 09/11/17 at 10:25; Status DC Ondansetron HCl (Zofran Inj) 4 mg Q6H PRN IV PUSH NAUSEA OR VOMITING Last administered on 09/11/17 14:18; Start 08/29/17 at 00:45 Oxycodone HCl (Roxicodone Intensol Liq) 5 mg Q6H PRN G-TUBE pain 6-10 Last administered on 09/25/17 20:48; Start 09/25/17 at 15:00 Pantoprazole Sodium (Protonix Inj) 40 mg DAILY IV PUSH Last administered on 09:15; Start 08/29/17 at 09:00; Stop 09/11/17 at 10:25; Status DC Pharmacy Profile Note 0 ml @ 0 mls/hr UNSCH OTHER ; Start 09/13/17 at 02:45; Stop 09/17/17 at 10:11; Status DC Piperacillin Sod/ Tazobactam Sod 50 ml @ 100 mls/hr Q6H IV Last administered on 09/19/17 20:26; Start 09/13/17 at 03:00; Stop 09/19/17 at 23:00; Status DC Polyethylene Glycol (Miralax) 17 gm BID G-TUBE Last administered on 09/28/17 20:47; Start 09/25/17 at 21:00 Potassium Chloride 30 meq/ Sodium Chloride 115 ml @ 38.333 mls/ hr ONCE ONCE IV-CENTRAL Last administered on 09/03/17 13:36; Start 09/03/17 at 14:00; Stop 09/03/17 at 16:59; Status DC Potassium Phosphate (K-Phos) 2,000 mg UNSCH PRN PO/TUBE SEE LABEL COMMENTS; Start 08/30/17 at 08:15; Stop 08/31/17 at 13:02; Status DC Potassium Phosphate 30 mmol/ Sodium Chloride 260 ml @ 42 mls/hr UNSCH PRN IV SEE LABEL COMMENTS; Start 08/30/17 at 08:15; Stop 08/31/17 at 13:02; Status DC Potassium Bicarb/ Potassium Chloride (K-Lyte Cl Eff) 50 meq ONCE ONCE PO Last administered on 09/25/17 05:25; Start 09/25/17 at 04:30; Stop 09/25/17 at 04:31; Status DC Potassium Chloride 100 ml @ 50 mls/hr Q2H IV Last administered on 09/15/17 10 :22; Start 09/15/17 at 08:15; Stop 09/15/17 at 12:14; Status DC Potassium Chloride (KCl Powder) 40 meq ONCE ONCE PEG Last administered on 12:15; Start 09/08/17 at 12:15; Stop 09/08/17 at 12:21; Status DC Potassium Chloride (KCl) 40 meq ONCE ONCE PO ; Start 09/08/17 at 09:00; Stop 09/08/17 at 12:05; Status DC Povidone Iodine (Betadine 5% Antisepsis Kit) 1 applic IMPORT CUSTOMER SERVICE MANAGER PRN EACH NARE SEE LABEL COMMENTS; Start 09/05/17 at 23:00; Stop 09/08/17 at 22:59; Status DC Propofol 100 ml @ 14.352 mls/ hr TITRATE PRN IV SEDATION Last administered on 09/10/17 09:59; Start 08/31/17 at 00:30; Stop 09/11/17 at 10:20; Status DC Propranolol HCl (Inderal) 40 mg Q6HR G-TUBE Last administered on 09/29/17 06: 13; Start 09/25/17 at 12:00 Quetiapine Fumarate (SEROquel) 50 mg Q8HR G-TUBE Last administered on 06:13; Start 09/25/17 at 14:00 Rocuronium [place] (Zemuron Inj) 100 mg BOLUS ONCE IV ; Start 09/08/17 at 13: 00; Stop 09/08/17 at 13:44; Status DC Senna/Docusate Sodium (Melina-Colace) 1 tab BID G-TUBE Last administered on 09/28 20:47; Start 09/25/17 at 21:00 Sennosides (Senokot) 17.2 mg Q12H PRN PO Moderate constipation; Start at 00:45; Stop 08/31/17 at 11:08; Status DC Silver Nitrate/ Potassium Nitrate (Silver Nitrate Applicators) 1 appl ONCE ONCE TOPICAL Last administered on 09/07/17 10:15; Start 09/07/17 at 10:15; Stop 09/07/17 at 10:47; Status DC Sodium Polystyrene Sulfonate (Kayexalate Liq) 30 gm Q2HR PO Last administered on 09/21/17 19:53; Start 09/21/17 at 16:00; Stop 09/21/17 at 21:00; Status DC Sodium Chloride 250 ml @ 15 mls/hr ONCE ONCE IV ; Start 09/28/17 at 10:15; Stop 09/28/17 at 16:53; Status DC Sodium Chloride (NS Flush) 2 ml UNSCH PRN IVF FLUSH AFTER USING IV ACCESS Last administered on 09/28/17 20:47; Start 08/29/17 at 00:00 Sodium Chloride 38.5 meq/Sterile Water 1,009.625 ml @ 42 mls/hr Q24H IV Last administered on 09/25/17 06:01; Start 09/20/17 at 13:00; Stop 09/25/17 at 09 :24; Status DC Sodium Phosphate 30 mmol/Sodium Chloride 250 ml @ 42 mls/hr UNSCH PRN IV For Phosphorus < 2.5 mg/dL; Start 08/30/17 at 08:15; Stop 08/31/17 at 13:02; Status DC Succinylcholine Chloride (Quelicin Inj) 100 mg ONCE ONCE IV PUSH ; Start 08/29 at 00:00; Stop 08/29/17 at 00:01; Status DC Vancomycin HCl 1500 mg/Sodium Chloride 515 ml @ 257.5 mls/ hr ONCE ONCE IV Last administered on 09/16/17 17:07; Start 09/16/17 at 15:00; Stop 09/16/17 at 16:59; Status DC Vancomycin HCl 2000 mg/Sodium Chloride 520 ml @ 250 mls/hr ONCE ONCE IV Last administered on 09/13/17 05:52; Start 09/13/17 at 04:00; Stop 09/13/17 at 06:04 ; Status DC Vancomycin HCl 2500 mg/Sodium Chloride 525 ml @ 250 mls/hr ONCE ONCE IV Last administered on 09/14/17 12:29; Start 09/14/17 at 12:00; Stop 09/14/17 at 14:05 ; Status DC Water (Free Water) 300 ml Q4HR G-TUBE Last administered on 09/29/17 03:44; Start 09/18/17 at 12:00 A/P Problem List: (1) Intracranial hemorrhage ICD Code: I62.9 - Nontraumatic intracranial hemorrhage, unspecified Status: Acute Assessment and Plan A/P Acute encephalopathy - resolving. Left Thalamic Hemorrhage, with IV extension Intracerebral Hemorrhage - Repeat CT of the head showed improving bleed - Neurosurgery following. Continue neurochecks. Repeat head CT for any decline in neuro status. - Continue rehabilitation efforts with PT, OT, speech - On Seroquel to control agitated delirium. Roxicodone as needed for pain Anemia likely due to chronic disease. H/H fairly stable. will monitor periodically. Healthcare associated pneumonia: Previously treated with antibiotics. - on 09/25 Patient recurrent fever and new leukocytosis. His chest x-ray shows stable left lower lobe consolidation. Previously completed treatment with antibiotics. Last antibiotics dose was about a week ago for Klebsiella. - Given worsening cough, fever, and leukocytosis. Continue Ceftin for a 7 day course. We'll consult ID if fever recurs. UTI: Urine is growing gram-negative rods. Continue cefuroxime as above. Follow urine cultures Respiratory failure s/p trach - Tolerating T piece - CT of the chest 09/13/17 -LLL infiltrate. Repeat chest x-ray on 09/26/17 shows stable left lower lobe consolidation - DuoNeb every 6 hours scheduled and when necessary -Patient had angioedema, source unclear and was seen by ENT. He was treated with steroids. Per ENT, expect slow improvement. This is resolving. -Appreciate pulmonology following for trach management Hyperglycemia - persistent. - Continue Levemir 20 units SQ q12h - Continue sliding scale insulin with Accu-Cheks. - hemoglobin A1c 9.1. Hypertension - Intermittent hypertension now well controlled - Continue clonidine, amlodipine and propranolol - Continue hydralazine. Nutrition status: - Status post PEG tube continue tube feeds - Having bowel movements - Continue Free water 300mL per tube q4h - Pepcid per tube Acute kidney injury, most likely has CK D per nephrology: Renal function stabilized. - Follow I/oh Physical deconditioning/right sided hemiparesis - OOB to stretcher chair daily - PT/OT following PROPH: - SCD's. Pepcid for GI prophylaxis Discharge Planning dc planning to SNF. Zoë Rivas MD Sep 29, 2017 09:32
[2017-09-29] MEDS: INSULIN DETEMIR 100 UNITS/ML VIAL SQ SCH ×2 (10:24→20:54)
[2017-09-29] MEDS: POLYETHYLENE GLYCOL 17 GM PKG G-TUBE SCH ×2 (10:24→20:41)
[2017-09-29] MEDS: DOCUSATE SODIUM 50 MG/SENNA 8.6 MG TAB G-TUBE SCH ×2 (10:24→20:41)
[2017-09-29] MEDS: FAMOTIDINE 20 MG TAB NG SCH ×2 (10:25→20:40)
[2017-09-29] MEDS: CEFUROXIME AXETIL 500 MG TAB PO SCH ×2 (10:25→20:41)
--- NOTE | 2017-09-29 17:18 | HHI.HCPN ---
Reason for visit a. To assist with evaluation and management of symptoms including: Pain and dyspnea. b. To assist medical decision maker(s) with: better understanding of current medical conditions; weighing benefits/burdens of medical treatment options; making medical treatment decisions. . Subjective/Interval History Palliative care follow-up for further clarifications of goals of care, family support. Patient seen in medical floor. He was transferred from surgical ICU on 09/24/17. Patient tolerating T-piece, 6 L, 28% FiO2. Patient afebrile, stable hemodynamically. Chest x-ray 09/25/17 revealing left lower lobe airspace consolidation. Patient being treated with antibiotics. Follow-up chest x-ray 09/26/17 revealing stable left basilar consolidation/effusion. Pulmonology, Dr. Galloway consulted on for tracheostomy care. Dropping hemoglobin on 09/28/17 6.4 from 8.8, repeat H&H 7.6/23.5. Laboratory today revealing stable Hgb 7.3, no signs of acute bleeding reported. Prophylactic heparin on hold. Speech therapy following, "patient demonstrating improved visual tracking but remains unable to functionally use alphabet board for communication attempts". Patient following commands with left upper and lower extremities, right-sided hemiparesis. Nodding head to "yes/no" questions. Denying pain or abdominal discomfort during my visit. PT following, PT at rehabilitation recommended. Ongoing disposition planning as per pillowcase cleaner. Telephone call to patient's maryjane Casarez message in voicemail. Nursing staff reports that tiffany Varela is currently in labor. Palliative care to continue to follow-up as needed. . Family/friend interactions See interval note. . Advance Directives Living Will: Never completed Health Care Surrogate: Never completed Durable Power of Auto Former Machine Operator: Never completed Advance Directive Specifics Health Care Surrogate(s): No advance directives completed as per patient's family. Patient is . As per [place] law, healthcare proxy decision making falls to the majority of patient's adult children for which he has 3 (4th child is 4 years old). Daughter Shannan, tiffany Varela and son Hadley Maddox wish to participate. . Significant change in goals: Goals remain aggressive. . Objective Vital Signs Date Time Temp Pulse Resp B/P (MAP) Pulse Ox O2 Delivery O2 Flow Rate FiO2 09/29/17 16:03 79 09/29/17 08:02 71 09/29/17 08:00 T-Piece 6.00 28 09/29/17 04:08 76 09/29/17 04:00 98.6 77 16 139/76 (97) 99 09/29/17 00:58 99 T-piece 6.00 28 09/29/17 00:10 81 09/29/17 00:00 99.0 83 16 137/75 (95) 98 09/28/17 20:31 77 09/28/17 20:17 T-Piece 6.00 28 09/28/17 20:00 97.1 76 16 135/74 (94) 99 09/28/17 18:30 Room Air 6.00 28 09/28/17 17:50 95 T-piece 6.00 28 Intake & Output 09/29/17 09/29/17 07:00 19:00 Intake Total 1635 ml Output Total 1400 ml Balance 235 ml Tube Feeding 735 ml Other 900 ml Output Urine Total 1400 ml # Bowel Movements 2 Physical Exam CONSTITUTIONAL/GENERAL: This is an obese patient resting in bed in no acute distress. TUBES/LINES/DRAINS: PEG tube, tracheostomy, SCDs, condom catheter, PIV's. SKIN: No jaundice, rashes, or lesions. No wounds seen anteriorly. Skin temperature appropriate. Not diaphoretic. HEAD: Atraumatic. Normocephalic. EYES: No scleral icterus. ENT: Hearing appears normal. Nose without bleeding or purulent drainage. Moist oral mucosa. Glossal edema, improving. NECK: Trachea midline. Supple. CARDIOVASCULAR: Regular rate and rhythm without murmurs, gallops, or rubs. Peripheral pulses symmetric. RESPIRATORY/CHEST: Symmetric, clear breath sounds bilaterally. Trach, tolerating t-piece. GASTROINTESTINAL: Abdomen obese, large, round. Unable to appreciate hepatomegaly secondary to body habitus. Bowel sounds active. PEG tube in place. GENITOURINARY: Without palpable bladder distension. Condom catheter in place. MUSCULOSKELETAL: Extremities without clubbing, cyanosis. No mottling or clubbing. Edema to all 4 extremities. NEUROLOGICAL: tracking with eyes. right-sided hemiparesis. Following commands with left upper and lower extremity. PSYCHIATRIC: Appears calm. . Diagnostic Tests Laboratory Laboratory Tests Test 09/27/17 08:15 09/27/17 09:45 09/28/17 08:25 09/28/17 15:11 White Blood Count 9.3 TH/MM3 (4.0-11.0) 5.2 TH/MM3 (4.0-11.0) 8.2 TH/MM3 (4.0-11.0) Red Blood Count 3.31 MIL/MM3 (4.50-5.90) 2.42 MIL/MM3 (4.50-5.90) 2.88 MIL/MM3 (4.50-5.90) Hemoglobin 8.8 GM/DL (13.0-17.0) 6.4 GM/DL (13.0-17.0) 7.6 GM/DL (13.0-17.0) Hematocrit 27.4 % (39.0-51.0) 20.0 % (39.0-51.0) 23.5 % (39.0-51.0) Mean Corpuscular Volume 82.6 FL (80.0-100.0) 82.7 FL (80.0-100.0) 81.6 FL (80.0-100.0) Mean Corpuscular Hemoglobin 26.6 PG (27.0-34.0) 26.6 PG (27.0-34.0) 26.4 PG (27.0-34.0) Mean Corpuscular Hemoglobin Concent 32.2 % (32.0-36.0) 32.2 % (32.0-36.0) 32.3 % (32.0-36.0) Red Cell Distribution Width 15.2 % (11.6-17.2) 14.9 % (11.6-17.2) 15.3 % (11.6-17.2) Platelet Count 255 TH/MM3 (150-450) 128 TH/MM3 (150-450) 267 TH/MM3 (150-450) Mean Platelet Volume 10.6 FL (7.0-11.0) 10.7 FL (7.0-11.0) 9.8 FL (7.0-11.0) Blood Urea Nitrogen 28 MG/DL (7-18) 25 MG/DL (7-18) Creatinine 1.39 MG/DL (0.60-1.30) 1.21 MG/DL (0.60-1.30) Random Glucose 159 MG/DL (74-106) 155 MG/DL (74-106) Calcium Level 8.7 MG/DL (8.5-10.1) 8.6 MG/DL (8.5-10.1) Sodium Level 139 MEQ/L (136-145) 139 MEQ/L (136-145) Potassium Level 3.9 MEQ/L (3.5-5.1) 4.8 MEQ/L (3.5-5.1) Chloride Level 103 MEQ/L (98-107) 102 MEQ/L (98-107) Carbon Dioxide Level 30.5 MEQ/L (21.0-32.0) 27.5 MEQ/L (21.0-32.0) Anion Gap 6 MEQ/L (5-15) 10 MEQ/L (5-15) Estimat Glomerular Filtration Rate 67 ML/MIN (>89) 79 ML/MIN (>89) Urine Color LIGHT-YELLOW (YELLW/STRAW) Urine Turbidity CLEAR (CLEAR) Urine pH 5.5 (5.0-8.5) Urine Specific Douglas 1.008 (1.002-1.035) Urine Protein NEG mg/dL (NEG-TRACE) Urine Glucose (UA) NEG mg/dL (NEG) Urine Ketones NEG mg/dL (NEG) Urine Occult Blood NEG (NEG) Urine Nitrite NEG (NEG) Urine Bilirubin NEG (NEG) Urine Urobilinogen LESS THAN 2.0 MG/DL (LESS Urine Leukocyte Esterase TRACE (NEG) Urine RBC 1 /hpf (0-3) Urine WBC 4 /hpf (0-5) Urine Squamous Epithelial Cells 1 /hpf (0-5) Urine Amorphous Sediment RARE Urine Bacteria RARE /hpf (NONE) Urine Mucus FEW /lpf (OCC) Microscopic Urinalysis Comment CATH-CULTURE IND Test 09/29/17 07:07 White Blood Count 6.2 TH/MM3 (4.0-11.0) Red Blood Count 2.66 MIL/MM3 (4.50-5.90) Hemoglobin 7.3 GM/DL (13.0-17.0) Hematocrit 21.9 % (39.0-51.0) Mean Corpuscular Volume 82.1 FL (80.0-100.0) Mean Corpuscular Hemoglobin 27.3 PG (27.0-34.0) Mean Corpuscular Hemoglobin Concent 33.2 % (32.0-36.0) Red Cell Distribution Width 14.9 % (11.6-17.2) Platelet Count 272 TH/MM3 (150-450) Mean Platelet Volume 9.8 FL (7.0-11.0) Blood Urea Nitrogen 25 MG/DL (7-18) Creatinine 1.14 MG/DL (0.60-1.30) Random Glucose 141 MG/DL (74-106) Calcium Level 8.8 MG/DL (8.5-10.1) Sodium Level 138 MEQ/L (136-145) Potassium Level 4.1 MEQ/L (3.5-5.1) Chloride Level 101 MEQ/L (98-107) Carbon Dioxide Level 32.1 MEQ/L (21.0-32.0) Anion Gap 5 MEQ/L (5-15) Estimat Glomerular Filtration Rate 85 ML/MIN (>89) Iron Level 22 MCG/DL (65-175) Total Iron Binding Capacity 237 MCG/DL (250-450) Percent Iron Saturation 9.3 % (20-50) Ferritin 440 NG/ML (26-388) Vitamin B12 Level 981 PG/ML (193-986) Folate 7.6 NG/ML (3.1-17.5) Result Diagram: 09/29/17 0707 09/29/17 0707 Microbiology Microbiology Date/Time Source Procedure Growth Status 09/27/17 08:20 Blood Peripheral Aerobic Blood Culture - Preliminary NO GROWTH IN 2 DAYS Resulted 09/27/17 08:20 Blood Peripheral Anaerobic Blood Culture - Preliminary NO GROWTH IN 2 DAYS Resulted 09/27/17 08:15 Blood Peripheral Aerobic Blood Culture - Preliminary NO GROWTH IN 2 DAYS Resulted 09/27/17 08:15 Blood Peripheral Anaerobic Blood Culture - Preliminary NO GROWTH IN 2 DAYS Resulted 09/28/17 13:45 Stool Stool Stool Occult Blood (ALEXIS) - Final HEMOCCULT NEGATIVE Complete 09/27/17 09:45 Urine Catheterized Urine Urine Culture - Final Pseudomonas Aeruginosa Complete Procedures * 08/28/17 -endotracheal intubation * 08/31/17 -therapeutic bronchoscopy * 09/06/17 -PEG tube placement * 09/08/17 -tracheostomy . Assessment and Plan Disease Oriented Problem List: (1) Hemorrhagic stroke (2) Intracranial hemorrhage (3) Hypertensive emergency (4) Acute kidney injury (5) Acute encephalopathy Symptom Scale: (1) Dyspnea 0-10 Scale: Unable to quantify Comment: Secondary to acute respiratory failure. Status post tracheostomy, currently tolerating T-piece. (2) Pain 0-10 Scale: Unable to quantify Comment: Oxycodone [id number]. Pertinent Non-Medical Issues Psychosocial: Patient originally from [facility]. He is the youngest of 4 siblings. High school education. 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 Patient is , has 4 children. No service. Spiritual: Rastafari lenny. Legal: No advance directives completed as per patient's family. Ethical issues impacting care: Patient unable to participate in medical decision -making secondary to clinical condition. 3 adult children serving as healthcare proxy decision makers. . Important Contacts Daughter Shannan Matos , Daughter Nichole Matos Son Hadley Matos Ex- (mother of his children) Janet Matos . Patient's father Jem Matos . . Prognosis Mr. Matos is a 46-year-old male with a medical history significant for TIA, uncontrolled hypertension and migraines. Patient presented to ED via EMS on as stroke alert. Patient was last seen with normal neurological function approximately 3-1/2 hours prior to ED arrival. Upon ED arrival, GCS of 7, blood pressure 238/153. He subsequently had a vomiting episode requiring emergent intubation and mechanical ventilation. Head CT revealing acute hemorrhaic stroke in the right thalamus with extension of the lateral third ventricles with a shift onto the right side of 6 mm. chest x-ray revealing left lower lobe consolidation and patchy infiltrates in the central right lung. Clinical course complicated by acute encephalopathy, acute hypoxemic and hypercarbic respiratory failure and acute kidney injury. Patient remains a high risk for further complications, continue decline and . Prognosis for a meaningful recovery guarded at this time. . Code Status: Full Code Plan * CODE STATUS: FULL CODE * HEALTHCARE DECISION-MAKING: Patient lacking capacity for medical decision- making secondary to clinical condition , encephalopathy, intubated on mechanical ventilation. Not likely to regain capacity giving brain bleed. No advance directives completed as per patient's family. Patient is . As per [place] law, healthcare proxy decision making falls to the majority of patient's adult children for which he has 3 (4th child is 4 years old). Daughters Kary and son Hadley Cuellar All wishing to participate. * GOALS OF CARE: Goals remain aggressive including FULL CODE, patient making some neurologic improvements. * SYMPTOMS: = Dyspnea, secondary to acute respiratory failure. Patient s/p trach on 09/08/17. Currently tolerating T-piece. = Pain: Secondary to intubation, medical interventions, bedbound. Currently on oxycodone 5 mg every 6 hours. Sparing PRN need, last dose 09/25/17. Appears calm. = Bowels: MiraLAX , lactulose and Melina-Colace [id number]. Dulcolax suppository available. = Restlessness/agitation: controlled with Seroquel 50mg every 8 hours. * Palliative care will continue to follow-up as needed for further clarifications of goals of care, provide emotional support as patient's clinical course continues to evolve. . Time Spent Total Floor Time (mins): 23 (Total time to include review medical records, physical exam, case discussion with medical team.) >50% Counseling/Coord of Care: Yes Attestation To help prompt me to consider important information that might be impacting today's encounter and assessment, information from prior notes written by myself or my colleagues may have been "brought forward" into today's note. My signature on this note, however, is an attestation that I personally performed the exam, history, and/or decision-making noted today, and, unless otherwise indicated, the interactions with patient, family, and staff as well as the review of records all occurred today. I also attest that the listed assessment and stated plan reflect my best clinical judgment today based on the combination of historical information, prior notes, and today's exam/ interactions. When time spent is documented, it refers only to time spent today by the signer, or if indicated, combined time spent today by collaborating physician/nurse practitioner. Soniya Elliott Sep 29, 2017 17:18
--- NOTE | 2017-09-29 19:22 | HHI.PR ---
Subjective Remarks OPENS EyES NO DISTRESS TRACH OK Objective Vital Signs Date Time Temp Pulse Resp B/P (MAP) Pulse Ox O2 Delivery O2 Flow Rate FiO2 09/29/17 16:03 79 09/29/17 08:02 71 09/29/17 08:00 T-Piece 6.00 28 09/29/17 04:08 76 09/29/17 04:00 98.6 77 16 139/76 (97) 99 09/29/17 00:58 99 T-piece 6.00 28 09/29/17 00:10 81 09/29/17 00:00 99.0 83 16 137/75 (95) 98 09/28/17 20:31 77 09/28/17 20:17 T-Piece 6.00 28 09/28/17 20:00 97.1 76 16 135/74 (94) 99 I/O 09/28/17 09/28/17 09/28/17 09/29/17 09/29/17 09/29/17 07:00 15:00 23:00 07:00 15:00 23:00 Intake Total 1635 ml Output Total 550 ml 600 ml 1400 ml Balance -550 ml -600 ml 235 ml Tube Feeding 735 ml Other 900 ml Output Urine Total 550 ml 600 ml 1400 ml # Bowel Movements 1 2 Result Diagram: 09/29/17 0709/29/17 0707 Objective Remarks GENERAL: SKIN: Warm and dry. HEAD: Atraumatic. Normocephalic. EYES: Pupils equal and round. No scleral icterus. No injection or drainage. ENT: No nasal bleeding or discharge. Mucous membranes pink and moist. NECK: Trachea midline. No JVD. CARDIOVASCULAR: Regular rate and rhythm. RESPIRATORY: No accessory muscle use. Clear to auscultation. Breath sounds equal bilaterally. GASTROINTESTINAL: Abdomen soft, non-tender, nondistended. Hepatic and splenic margins not palpable. MUSCULOSKELETAL: Extremities without clubbing, cyanosis, or edema. No obvious deformities. NEUROLOGICAL: Awake and alert. No obvious cranial nerve deficits. Motor grossly within normal limits. Five out of 5 muscle strength in the arms and legs. Normal speech. PSYCHIATRIC: Appropriate mood and affect; insight and judgment normal. Assessment and Plan Assessment and Plan RESPIRATORY FAILURE S/P TRACH S/P CVA OBESITY HTN PLAN O2 NEEDED PULM TOILET INCREASE ACTIVITY REMOVE TRACH WHEN POSSIBLE Discharge Planning GENERAL: SKIN: Warm and dry. HEAD: Atraumatic. Normocephalic. EYES: Pupils equal and round. No scleral icterus. No injection or drainage. ENT: No nasal bleeding or discharge. Mucous membranes pink and moist. NECK: Trachea midline. No JVD. CARDIOVASCULAR: Regular rate and rhythm. RESPIRATORY: No accessory muscle use. Clear to auscultation. Breath sounds equal bilaterally. GASTROINTESTINAL: Abdomen soft, non-tender, nondistended. Hepatic and splenic margins not palpable. MUSCULOSKELETAL: Extremities without clubbing, cyanosis, or edema. No obvious deformities. NEUROLOGICAL: Awake and alert. No obvious cranial nerve deficits. Motor grossly within normal limits. Five out of 5 muscle strength in the arms and legs. Normal speech. PSYCHIATRIC: Appropriate mood and affect; insight and judgment normal. Wang Piña MD Sep 29, 2017 19:22
[2017-09-29] MEDS: ATORVASTATIN 40 MG TAB DOBHOFF SCH (20:40)
[2017-09-30] VITALS (12 sets, daily range): BP systolic 106–174; BP diastolic 66–84; PULSE 81–91; RESP 18–20; TEMP 97.1–100; O2SAT 96–99
[2017-09-30] MEDS: FREE WATER G-TUBE SCH ×6 (00:41→21:18)
[2017-09-30] MEDS: PROPRANOLOL HCL 40 MG TAB G-TUBE SCH ×4 (00:41→18:07)
[2017-09-30] MEDS: CHLORHEXIDINE GLUCONATE 2 % 1 PACK (2 CLOTHS) TOP SCH (03:00)
[2017-09-30] MEDS: INSULIN ASPART SUPPLEMENTAL SCALE SQ SCH ×4 (05:59→18:07)
[2017-09-30] MEDS: cloNIDine HCL 0.3 MG TAB G-TUBE SCH ×3 (06:01→21:25)
[2017-09-30] MEDS: hydrALAZINE HCL 100 MG TAB G-TUBE SCH ×3 (06:01→21:15)
[2017-09-30] MEDS: QUEtiapine FUMARATE 25 MG TAB G-TUBE SCH ×3 (06:01→21:14)
[2017-09-30] MEDS: DOCUSATE SODIUM 50 MG/SENNA 8.6 MG TAB G-TUBE SCH ×2 (07:50→21:15)
[2017-09-30] MEDS: CEFUROXIME AXETIL 500 MG TAB PO SCH ×2 (07:50→21:14)
[2017-09-30] MEDS: POLYETHYLENE GLYCOL 17 GM PKG G-TUBE SCH ×2 (07:50→21:19)
[2017-09-30] MEDS: FAMOTIDINE 20 MG TAB NG SCH ×2 (07:51→21:15)
[2017-09-30] MEDS: CHLORHEXIDINE 0.12% (ORAL KIT) 15 ML CUP MT SCH ×2 (07:51→21:19)
[2017-09-30] MEDS: FLUTICASONE PROPIONATE 50 MCG/ACT 16 GM NASAL SPRAY EACH NARE SCH (07:51)
[2017-09-30] MEDS: INSULIN DETEMIR 100 UNITS/ML VIAL SQ SCH ×2 (09:54→21:16)
--- NOTE | 2017-09-30 12:12 | HHI.PR ---
Subjective Remarks in no acute distress. looks comfortable. no fever. Objective Vitals Vital Signs Date Time Temp Pulse Resp B/P (MAP) Pulse Ox O2 Delivery O2 Flow Rate FiO2 09/30/17 08:12 87 09/30/17 08:00 T-Piece 5.00 28 09/30/17 08:00 99.5 88 20 141/66 (91) 97 09/30/17 04:11 84 09/30/17 04:00 97.1 86 20 106/82 (90) 96 09/30/17 00:00 99.0 91 20 155/72 (99) 96 09/30/17 00:00 85 09/29/17 20:55 T-Piece 6.00 09/29/17 20:00 80 09/29/17 20:00 98.8 77 20 157/75 (102) 100 09/29/17 16:03 79 09/29/17 16:00 99.3 82 20 159/87 (111) 99 I/O 09/29/17 09/29/17 09/29/17 09/30/17 09/30/17 09/30/17 07:00 15:00 23:00 07:00 15:00 23:00 Intake Total 1635 ml 0 ml 0 ml Output Total 1400 ml 600 ml 1000 ml Balance 235 ml -600 ml -1000 ml Intake Oral 0 ml 0 ml Tube Feeding 735 ml Other 900 ml Output Urine Total 1400 ml 600 ml 1000 ml # Bowel Movements 2 2 0 Result Diagram: 09/29/17 0707 09/29/17 0707 Imaging Last Impressions Chest X-Ray 09/26/17 0000 Signed Impressions: Service Date/Time: Tuesday, September 26, 2017 09:45 - CONCLUSION: Stable examination with left basilar consolidation/effusion. Reyes Guzman MD Maxillofacial CT 09/16/17 0000 Signed Impressions: Service Date/Time: September 01:03 - CONCLUSION: 1. Evidence of acute pansinusitis. 2. Opacification of multiple bilateral mastoid air cells most characteristic of mastoiditis. 3. Mildly prominent cervical chain nodes which may be reactive. Angelo Conn MD Upper Extremity Ultrasound 09/15/17 0000 Signed Impressions: Service Date/Time: Friday, September 15, 2017 17:14 - CONCLUSION: Occlusive thrombus within the left cephalic vein and nonocclusive thrombus within the right cephalic vein. Ric Jack MD Lower Extremity Ultrasound 09/15/17 0000 Signed Impressions: Service Date/Time: Friday, September 15, 2017 16:58 - CONCLUSION: No evidence of DVT within the lower extremities. Ric Jack MD Head CT 09/13/17 0800 Signed Impressions: Service Date/Time: Wednesday, September 13, 2017 09:17 - CONCLUSION: 1. Resolving left basal ganglia hematoma Natan Lagos MD Chest CT 09/13/17 0000 Signed Impressions: Service Date/Time: Wednesday, September 13, 2017 09:28 - CONCLUSION: 1. Bibasilar and left lingular dependent atelectatic changes. Lungs are otherwise clear. 2. Tracheostomy tube with the tip probably positioned above the connie. 3. Compensated cardiomegaly. Reyes Guzman MD Abdomen/Pelvis CT 09/13/17 0000 Signed Impressions: Service Date/Time: Wednesday, September 13, 2017 09:28 - CONCLUSION: 1. There is some stranding in the retroperitoneal perivascular tissues around the distal aorta extending into the bifurcation with a regional borderline lymph nodes. Findings are characteristic of a nonspecific inflammatory process. Findings could represent early retroperitoneal fibrosis.. 2. Urinary bladder is decompressed with some mural thickening in pericystic inflammatory changes possibly representing a chronic cystitis. Nondependent air could be associated with a recent catheterization/instrumentation. 3. Small umbilical and right inguinal hernias only contain fat. 4. Bilateral dependent basilar and left lingular atelectatic changes. Heart size is borderline prominent. 5. Otherwise , bowel is intact without obstruction to explain abdominal distention Reyes Guzman MD Abdomen X-Ray 09/10/17 0600 Signed Impressions: Service Date/Time: Sunday, September 10, 2017 03:56 - CONCLUSION: No significant abnormality is identified. There is mild distention of the colon but there are no findings to suggest bowel obstruction or significant ileus. Ignacio Underwood MD Liver Ultrasound 09/07/17 0000 Signed Impressions: Service Date/Time: Thursday, September 07, 2017 12:37 - CONCLUSION: 1. Unremarkable sonographic appearance of the liver. No evidence for hepatic volume loss or intrahepatic ductal dilatation. 2. No sonographic evidence for cholelithiasis or acute cholecystitis. 3. Mild increased right renal echogenicity may reflect medical renal disease. 4. Small bilateral pleural effusions. 5. Pancreas and inferior pole of the right kidney are obscured by bowel gas and therefore not evaluated. Darrell Robles MD Renal Ultrasound 08/31/17 0000 Signed Impressions: Service Date/Time: Thursday, August 31, 2017 17:42 - CONCLUSION: 1. No evidence of hydronephrosis on either side. 2. Solitary linear echogenic focus in the upper pole parenchyma of the right kidney has similar features to prior examination in January 2017 and possibly represents a calcification. David Snell MD Neck CTA 08/28/177 Signed Impressions: Service Date/Time: Tuesday, August 29, 2017 00:13 - CONCLUSION: Negative carotid CTA. David Snell MD Head CTA 08/28/177 Signed Impressions: Service Date/Time: Tuesday, August 29, 2017 00:13 - CONCLUSION: 1. No evidence of vessel truncation or aneurysm. 2. No abnormal vessels in the region of the large left thalamic hemorrhage. David Snell MD Objective Remarks GENERAL: in no apparent distress. Neck; trach in place. CARDIOVASCULAR: Regular rate and irregular rhythm without murmurs, gallops, or rubs. RESPIRATORY: Clear to auscultation. Breath sounds equal bilaterally. No wheezes , rales, or rhonchi. GASTROINTESTINAL: Abdomen soft, non-tender, nondistended. Normal, active bowel sounds-PEG in place. MUSCULOSKELETAL: Extremities without clubbing, cyanosis, or edema. NEURO: awake. Procedures Tracheostomy and PEG placement Medications and IVs Inpatient Medications Acetaminophen (Tylenol) 650 mg Q6H PRN G-TUBE PAIN 1-5 AND/OR FEVER >101F Last administered on 09/29/17 01:17; Start 09/25/17 at 12:45 Albuterol Sulfate (Albuterol Neb) 2.5 mg Q2HR NEB PRN NEB sob/wheeze Last administered on 09/29/17 00:45; Start 09/25/17 at 13:30 Albuterol/ Ipratropium (Duoneb Neb) 1 ampule Q6HR NEB INH Last administered on 09/21/17 08:25; Start 09/17/17 at 16:00; Stop 09/21/17 at 15:59; Status DC Amlodipine Besylate (Norvasc) 10 mg DAILY G-TUBE Last administered on 07:50; Start 09/26/17 at 09:00 Atorvastatin Calcium (Lipitor) 40 mg HS DOBHOFF Last administered on 20:40; Start 09/25/17 at 21:00 Bisacodyl (Dulcolax Supp) 10 mg DAILY RECTAL Last administered on 08/31/17 11 :58; Start 08/31/17 at 12:00; Stop 09/25/17 at 09:30; Status DC Calcium Acetate (Phoslo) 667 mg TID PO Last administered on 09/08/17 10:38; Start 08/31/17 at 18:00; Stop 09/08/17 at 11:02; Status DC Cefuroxime Axetil (Ceftin) 500 mg Q12HR PO Last administered on 09/30/17 07: 50; Start 09/26/17 at 11:15; Stop 10/03/17 at 11:14 Chlorhexidine Gluconate (Chlorhexidine 2% Cloth) 3 pack SWEET P[employer]LE [employer]ER PRN TOPICAL SEE LABEL COMMENTS; Start 09/05/17 at 23:00; Stop 09/08/17 at 22:59; Status DC Chlorhexidine Gluconate (Peridex 0.12% Liq) 15 ml BID@08,20 MT Last administered on 09/30/17 07:51; Start 08/29/17 at 08:00 Clonidine (Catapres) 0.3 mg Q8HR G-TUBE Last administered on 09/30/17 06:01; Start 09/25/17 at 14:00 Dantrolene Sodium (Dantrium Inj) 70 mg ONCE ONCE IV Last administered on 03:55; Start 09/13/17 at 03:00; Stop 09/13/17 at 03:01; Status DC Desmopressin Acetate (Ddavp Tae Spr) 1 spray ONCE ONCE EACH NARE Last administered on 09/07/17 15:00; Start 09/07/17 at 15:00; Stop 09/07/17 at 15 :01; Status DC Dexamethasone Sodium Phosphate (Decadron Inj) 6 mg Q12HR IV PUSH Last administered on 09/20/17 09:26; Start 09/17/17 at 21:00; Stop 09/20/17 at 20: 59; Status DC Dexmedetomidine HCl 50 ml @ 29.9 mls/hr TITRATE IV ; Start 08/30/17 at 14:15; Stop 08/30/17 at 14:46; Status DC Dexmedetomidine HCl 1000 mcg/ Sodium Chloride 250 ml @ 29.9 mls/hr TITRATE IV Last administered on 08/30/17 17:58; Start 08/30/17 at 16:45; Stop 08/31/17 at 06:14; Status DC Dexmedetomidine HCl 200 mcg/ Sodium Chloride 50 ml @ 29.9 mls/hr TITRATE IV Last administered on 08/30/17 15:27; Start 08/30/17 at 15:00; Stop 08/30/17 at 16:42; Status DC Dextrose 1,000 ml @ 42 mls/hr [id number] IV Last administered on 09/20/17 09:25 ; Start 09/19/17 at 08:45; Stop 09/20/17 at 11:39; Status DC Dextrose (D50w (Vial) Inj) 25 ml UNSCH PRN IV PUSH HYPOGLYCEMIA-SEE COMMENTS; Start 09/18/17 at 12:00 Diphenhydramine HCl (Benadryl Inj) 25 mg Q6H IV PUSH Last administered on 08:06; Start 09/15/17 at 15:00; Stop 09/18/17 at 14:59; Status DC Etomidate (Amidate Inj) 20 mg ONCE ONCE IVP ; Start 08/29/17 at 00:00; Stop 08/29/17 at 00:01; Status DC Famotidine (Pepcid) 20 mg BID NG Last administered on 09/30/17 07:51; Start 09/24/17 at 09:30 Fentanyl Citrate 250 ml @ 5 mls/hr TITRATE PRN IV SEDATION Last administered on 09/11/17 06:14; Start 08/29/17 at 00:45; Stop 09/11/17 at 10:20; Status DC Fluticasone Propionate (Flonase Tae Spr) 2 spray DAILY EACH NARE Last administered on 09/30/17 07:51; Start 09/05/17 at 17:00 Gelatin (Gelfoam 12 Mm/7 Mm Top) 1 foam Q2HR PRN TOPICAL if still bleeding from peg Last administered on 09/08/17 08:00; Start 09/07/17 at 19:45 Glucagon (Glucagon Inj) 1 mg UNSCH PRN OTHER HYPOGLYCEMIA-SEE COMMENTS; Start 09/25/17 at 09:30 Haloperidol Lactate (Haldol Inj) 5 mg Q4H PRN IV agitation Last administered on 09/12/17 23:04; Start 08/31/17 at 11:00; Stop 09/25/17 at 09:30; Status DC Heparin Sodium (Porcine) (Heparin Inj) 5,000 units Q12HR SQ Last administered on 09/28/17 08:20; Start 09/11/17 at 21:00; Status Future Hold Hydralazine HCl (Apresoline Inj) 10 mg Q30M PRN IV PUSH sbp > 160 Last administered on 09/19/17 09:08; Start 08/30/17 at 08:15 Hydralazine HCl (Apresoline) 100 mg Q8HR G-TUBE Last administered on 06:01; Start 09/25/17 at 14:00 Hydrochlorothiazide (Hydrodiuril) 25 mg DAILY PO Last administered on 10:37; Start 08/29/17 at 09:00; Stop 09/08/17 at 11:02; Status DC Insulin Aspart (NovoLOG SUPPLEMENTAL SCALE) 1 Q6H SQ Last administered on 09/30 05:59; Start 09/25/17 at 12:00 Insulin Detemir (Levemir Inj) 20 units Q12H SQ Last administered on 09/30/17 09:54; Start 09/19/17 at 10:00 Insulin Human Regular (NovoLIN R SUPPLEMENTAL SCALE) 1 Q4HR SQ Last administered on 09/25/17 04:09; Start 09/18/17 at 12:00; Stop 09/25/17 at 09: 28; Status DC Insulin Human Regular (NovoLIN R INJ) See Protocol Table ... SWEET P[employer]LE [employer]ER PRN SQ SEE PROTOCOL TABLE; Start 09/05/17 at 23:00; Stop 09/08/17 at 22:59; Status DC Labetalol HCl (Trandate Inj) 10 mg Q20M PRN IV PUSH SBP>140, DBP>90 Last administered on 09/19/17 02:16; Start 08/29/17 at 00:45 Labetalol HCl (Trandate) 300 mg NOW ONCE PEG Last administered on 09/17/17 04 :23; Start 09/17/17 at 04:15; Stop 09/17/17 at 04:16; Status DC Lactated Ringer's 1,000 ml @ 30 mls/hr Q24H PRN IV SEE LABEL COMMENTS; Start 09/05/17 at 23:00; Stop 09/08/17 at 22:59; Status DC Lactulose (Lactulose Liq) 30 ml BID PO Last administered on 09/04/17 19:57; Start 08/31/17 at 12:00; Stop 09/25/17 at 09:30; Status DC Lidocaine HCl (Lidocaine Pf 2% Neb) 1 ml Q6HR NEB PRN NEB cough/bronchial irritation; Start 09/16/17 at 11:30 Lisinopril (Prinivil) 40 mg DAILY PO Last administered on 09/04/17 09:07; Start 08/29/17 at 09:00; Stop 09/04/17 at 12:18; Status DC Lorazepam (Ativan Inj) 1 mg ONCE ONCE IV PUSH Last administered on 09/13/17 02:57; Start 09/13/17 at 02:45; Stop 09/13/17 at 02:46; Status DC Lorazepam (Ativan) 1 mg Q12H PO Last administered on 09/09/17 20:27; Start 09/07/17 at 19:00; Stop 09/11/17 at 10:25; Status DC Magnesium Hydroxide (Milk Of Magnesia Liq) 30 ml Q12H PRN PO Mild constipation ; Start 08/29/17 at 00:45; Stop 08/31/17 at 11:08; Status DC Magnesium Citrate (Citroma Liq) 300 ml ONCE ONCE PO Last administered on 08/31 11:57; Start 08/31/17 at 12:00; Stop 08/31/17 at 12:01; Status DC Magnesium Oxide (Mag-Ox) 800 mg UNSCH PRN PO For Magnesium 1.2 - 1.6 mg/dL; Start 08/30/17 at 08:15; Stop 08/31/17 at 13:02; Status DC Magnesium Sulfate 2 gm/Sodium Chloride 100 ml @ 50 mls/hr UNSCH PRN IV For Magnesium 1.2 - 1.6 mg/dL; Start 08/30/17 at 08:15; Stop 08/31/17 at 13:02; Status DC Magnesium Sulfate 4 gm/Sodium Chloride 100 ml @ 50 mls/hr UNSCH PRN IV For Magnesium 0.9 - 1.1 mg/dL; Start 08/30/17 at 08:15; Stop 08/31/17 at 13:02; Status DC Magnesium Sulfate/ Dextrose 100 ml @ 100 mls/hr Q1H IV Last administered on 12:22; Start 08/31/17 at 12:00; Stop 08/31/17 at 13:00; Status DC Metoclopramide HCl (Reglan Inj) 5 mg Q8HR IV PUSH Last administered on 22:55; Start 09/09/17 at 22:00; Stop 09/11/17 at 10:25; Status DC Metoprolol Tartrate (Lopressor) 25 mg Q8H G-TUBE ; Start 09/25/17 at 13:00; Stop 09/25/17 at 13:00; Status DC Midazolam HCl (Versed Inj) 10 mg ONCE ONCE IV PUSH ; Start 09/08/17 at 13:00; Stop 09/08/17 at 13:41; Status DC Miscellaneous Information 1 [id number] Last administered on 08/29/17 01:00; Start 08/29/17 at 00:45 Modafinil (Provigil) 200 mg DAILY PO Last administered on 09/12/17 09:07; Start 09/11/17 at 12:00; Stop 09/25/17 at 09:30; Status DC Morphine Sulfate (Morphine Inj) 2 mg Q2H PRN IV PUSH breakthru pain; Start at 16:30 Nicardipine HCl 25 mg/Sodium Chloride 250 ml @ 50 mls/hr TITRATE PRN IV Blood pressure management Last administered on 09/17/17 04:57; Start 09/13/17 at 02: 45; Stop 09/17/17 at 12:47; Status DC Nicardipine HCl 50 mg/Sodium Chloride 500 ml @ 50 mls/hr TITRATE PRN IV BLOOD PRESSURE MANAGEMENT Last administered on 09/05/17 22:00; Start 09/02/17 at 21 :15; Stop 09/11/17 at 10:25; Status DC Ondansetron HCl (Zofran Inj) 4 mg Q6H PRN IV PUSH NAUSEA OR VOMITING Last administered on 09/11/17 14:18; Start 08/29/17 at 00:45 Oxycodone HCl (Roxicodone Intensol Liq) 5 mg Q6H PRN G-TUBE pain 6-10 Last administered on 09/25/17 20:48; Start 09/25/17 at 15:00 Pantoprazole Sodium (Protonix Inj) 40 mg DAILY IV PUSH Last administered on 09:15; Start 08/29/17 at 09:00; Stop 09/11/17 at 10:25; Status DC Pharmacy Profile Note 0 ml @ 0 mls/hr UNSCH OTHER ; Start 09/13/17 at 02:45; Stop 09/17/17 at 10:11; Status DC Piperacillin Sod/ Tazobactam Sod 50 ml @ 100 mls/hr Q6H IV Last administered on 09/19/17 20:26; Start 09/13/17 at 03:00; Stop 09/19/17 at 23:00; Status DC Polyethylene Glycol (Miralax) 17 gm BID G-TUBE Last administered on 09/30/17 07:50; Start 09/25/17 at 21:00 Potassium Chloride 30 meq/ Sodium Chloride 115 ml @ 38.333 mls/ hr ONCE ONCE IV-CENTRAL Last administered on 09/03/17 13:36; Start 09/03/17 at 14:00; Stop 09/03/17 at 16:59; Status DC Potassium Phosphate (K-Phos) 2,000 mg UNSCH PRN PO/TUBE SEE LABEL COMMENTS; Start 08/30/17 at 08:15; Stop 08/31/17 at 13:02; Status DC Potassium Phosphate 30 mmol/ Sodium Chloride 260 ml @ 42 mls/hr UNSCH PRN IV SEE LABEL COMMENTS; Start 08/30/17 at 08:15; Stop 08/31/17 at 13:02; Status DC Potassium Bicarb/ Potassium Chloride (K-Lyte Cl Eff) 50 meq ONCE ONCE PO Last administered on 09/25/17 05:25; Start 09/25/17 at 04:30; Stop 09/25/17 at 04:31; Status DC Potassium Chloride 100 ml @ 50 mls/hr Q2H IV Last administered on 09/15/17 10 :22; Start 09/15/17 at 08:15; Stop 09/15/17 at 12:14; Status DC Potassium Chloride (KCl Powder) 40 meq ONCE ONCE PEG Last administered on 12:15; Start 09/08/17 at 12:15; Stop 09/08/17 at 12:21; Status DC Potassium Chloride (KCl) 40 meq ONCE ONCE PO ; Start 09/08/17 at 09:00; Stop 09/08/17 at 12:05; Status DC Povidone Iodine (Betadine 5% Antisepsis Kit) 1 applic SWEET PICKLE [employer]KER PRN EACH NARE SEE LABEL COMMENTS; Start 09/05/17 at 23:00; Stop 09/08/17 at 22:59; Status DC Propofol 100 ml @ 14.352 mls/ hr TITRATE PRN IV SEDATION Last administered on 09/10/17 09:59; Start 08/31/17 at 00:30; Stop 09/11/17 at 10:20; Status DC Propranolol HCl (Inderal) 40 mg Q6HR G-TUBE Last administered on 09/30/17 06: 01; Start 09/25/17 at 12:00 Quetiapine Fumarate (SEROquel) 50 mg Q8HR G-TUBE Last administered on 06:01; Start 09/25/17 at 14:00 Rocuronium Henderson (Zemuron Inj) 100 mg BOLUS ONCE IV ; Start 09/08/17 at 13: 00; Stop 09/08/17 at 13:44; Status DC Senna/Docusate Sodium (Melina-Colace) 1 tab BID G-TUBE Last administered on 09/30 07:50; Start 09/25/17 at 21:00 Sennosides (Senokot) 17.2 mg Q12H PRN PO Moderate constipation; Start at 00:45; Stop 08/31/17 at 11:08; Status DC Silver Nitrate/ Potassium Nitrate (Silver Nitrate Applicators) 1 appl ONCE ONCE TOPICAL Last administered on 09/07/17 10:15; Start 09/07/17 at 10:15; Stop 09/07/17 at 10:47; Status DC Sodium Polystyrene Sulfonate (Kayexalate Liq) 30 gm Q2HR PO Last administered on 09/21/17 19:53; Start 09/21/17 at 16:00; Stop 09/21/17 at 21:00; Status DC Sodium Chloride 250 ml @ 15 mls/hr ONCE ONCE IV ; Start 09/28/17 at 10:15; Stop 09/28/17 at 16:53; Status DC Sodium Chloride (NS Flush) 2 ml UNSCH PRN IVF FLUSH AFTER USING IV ACCESS Last administered on 09/28/17 20:47; Start 08/29/17 at 00:00 Sodium Chloride 38.5 meq/Sterile Water 1,009.625 ml @ 42 mls/hr Q24H IV Last administered on 09/25/17 06:01; Start 09/20/17 at 13:00; Stop 09/25/17 at 09 :24; Status DC Sodium Phosphate 30 mmol/Sodium Chloride 250 ml @ 42 mls/hr UNSCH PRN IV For Phosphorus < 2.5 mg/dL; Start 08/30/17 at 08:15; Stop 08/31/17 at 13:02; Status DC Succinylcholine Chloride (Quelicin Inj) 100 mg ONCE ONCE IV PUSH ; Start 08/29 at 00:00; Stop 08/29/17 at 00:01; Status DC Vancomycin HCl 1500 mg/Sodium Chloride 515 ml @ 257.5 mls/ hr ONCE ONCE IV Last administered on 09/16/17 17:07; Start 09/16/17 at 15:00; Stop 09/16/17 at 16:59; Status DC Vancomycin HCl 2000 mg/Sodium Chloride 520 ml @ 250 mls/hr ONCE ONCE IV Last administered on 09/13/17 05:52; Start 09/13/17 at 04:00; Stop 09/13/17 at 06:04 ; Status DC Vancomycin HCl 2500 mg/Sodium Chloride 525 ml @ 250 mls/hr ONCE ONCE IV Last administered on 09/14/17 12:29; Start 09/14/17 at 12:00; Stop 09/14/17 at 14:05 ; Status DC Water (Free Water) 300 ml Q4HR G-TUBE Last administered on 09/30/17t 07:51; Start 09/18/17 at 12:00 A/P Problem List: (1) Intracranial hemorrhage ICD Code: I62.9 - Nontraumatic intracranial hemorrhage, unspecified Status: Acute Assessment and Plan A/P Acute encephalopathy - improving. Left Thalamic Hemorrhage, with IV extension Intracerebral Hemorrhage - Repeat CT of the head showed improving bleed - Neurosurgery following. Continue neurochecks. Repeat head CT for any decline in neuro status. - Continue rehabilitation efforts with PT, OT, speech - On Seroquel to control agitated delirium. Roxicodone as needed for pain Anemia likely due to chronic disease. H/H fairly stable. will monitor periodically. Healthcare associated pneumonia: Previously treated with antibiotics. - on 09/25 Patient recurrent fever and new leukocytosis. His chest x-ray shows stable left lower lobe consolidation. Previously completed treatment with antibiotics. Last antibiotics dose was about a week ago for Klebsiella. - Given worsening cough, fever, and leukocytosis. Continue Ceftin for a 7 day course. We'll consult ID if fever recurs. UTI: Urine is growing gram-negative rods. Continue cefuroxime as above. Follow urine cultures Respiratory failure s/p trach - Tolerating T piece - CT of the chest 09/13/17 -LLL infiltrate. Repeat chest x-ray on 09/26/17 shows stable left lower lobe consolidation - DuoNeb every 6 hours scheduled and when necessary -Patient had angioedema, source unclear and was seen by ENT. He was treated with steroids. Per ENT, expect slow improvement. This is resolving. -Appreciate pulmonology following for trach management Hyperglycemia - persistent. - Continue Levemir 20 units SQ q12h - Continue sliding scale insulin with Accu-Cheks. - hemoglobin A1c 9.1. Hypertension - Intermittent hypertension now well controlled - Continue clonidine, amlodipine and propranolol - Continue hydralazine. Nutrition status: - Status post PEG tube continue tube feeds - Having bowel movements - Continue Free water 300mL per tube q4h - Pepcid per tube Acute kidney injury, most likely has CK D per nephrology: Renal function stabilized. - Follow I/oh Physical deconditioning/right sided hemiparesis - OOB to stretcher chair daily - PT/OT following PROPH: - SCD's. Pepcid for GI prophylaxis Discharge Planning dc planning to SNF. Zoë Rivas MD Sep 30, 2017 12:12
--- NOTE | 2017-09-30 18:19 | HHI.PR ---
Subjective Remarks OPENS EyES NO DISTRESS TRACH OK Objective Vital Signs Date Time Temp Pulse Resp B/P (MAP) Pulse Ox O2 Delivery O2 Flow Rate FiO2 09/30/17 12:03 89 09/30/17 08:12 87 09/30/17 08:00 T-Piece 5.00 28 09/30/17 08:00 99.5 88 20 141/66 (91) 97 09/30/17 04:11 84 09/30/17 04:00 97.1 86 20 106/82 (90) 96 09/30/17 00:00 99.0 91 20 155/72 (99) 96 09/30/17 00:00 85 09/29/17 20:55 T-Piece 6.00 09/29/17 20:00 80 09/29/17 20:00 98.8 77 20 157/75 (102) 100 I/O 09/29/17 09/29/17 09/29/17 09/30/17 09/30/17 09/30/17 07:00 15:00 23:00 07:00 15:00 23:00 Intake Total 1635 ml 0 ml 0 ml Output Total 1400 ml 600 ml 1000 ml Balance 235 ml -600 ml -1000 ml Intake Oral 0 ml 0 ml Tube Feeding 735 ml Other 900 ml Output Urine Total 1400 ml 600 ml 1000 ml # Bowel Movements 2 2 0 Result Diagram: 09/29/17 0709/29/17 0707 Objective Remarks GENERAL: SKIN: Warm and dry. HEAD: Atraumatic. Normocephalic. EYES: Pupils equal and round. No scleral icterus. No injection or drainage. ENT: No nasal bleeding or discharge. Mucous membranes pink and moist. NECK: Trachea midline. No JVD. CARDIOVASCULAR: Regular rate and rhythm. RESPIRATORY: No accessory muscle use. Clear to auscultation. Breath sounds equal bilaterally. GASTROINTESTINAL: Abdomen soft, non-tender, nondistended. Hepatic and splenic margins not palpable. MUSCULOSKELETAL: Extremities without clubbing, cyanosis, or edema. No obvious deformities. NEUROLOGICAL: Awake and alert. No obvious cranial nerve deficits. Motor grossly within normal limits. Five out of 5 muscle strength in the arms and legs. Normal speech. PSYCHIATRIC: Appropriate mood and affect; insight and judgment normal. Assessment and Plan Assessment and Plan RESPIRATORY FAILURE S/P TRACH S/P CVA OBESITY HTN PLAN O2 NEEDED PULM TOILET INCREASE ACTIVITY REMOVE TRACH WHEN POSSIBLE Wang Piña MD Sep 30, 2017 18:19
[2017-09-30] MEDS: ATORVASTATIN 40 MG TAB DOBHOFF SCH (21:14)
[2017-10-01] VITALS (12 sets, daily range): BP systolic 131–158; BP diastolic 72–86; PULSE 77–91; RESP 18–20; TEMP 97.8–99; O2SAT 97–100
[2017-10-01] MEDS: FREE WATER G-TUBE SCH ×6 (00:05→22:14)
[2017-10-01] MEDS: INSULIN ASPART SUPPLEMENTAL SCALE SQ SCH ×4 (00:06→17:38)
[2017-10-01] MEDS: PROPRANOLOL HCL 40 MG TAB G-TUBE SCH ×4 (00:07→17:39)
[2017-10-01] MEDS: CHLORHEXIDINE GLUCONATE 2 % 1 PACK (2 CLOTHS) TOP SCH (04:00)
[2017-10-01] MEDS: hydrALAZINE HCL 100 MG TAB G-TUBE SCH ×3 (05:20→22:22)
[2017-10-01] MEDS: cloNIDine HCL 0.3 MG TAB G-TUBE SCH ×3 (05:20→22:24)
[2017-10-01] MEDS: QUEtiapine FUMARATE 25 MG TAB G-TUBE SCH ×3 (05:21→22:23)
[2017-10-01] MEDS: DOCUSATE SODIUM 50 MG/SENNA 8.6 MG TAB G-TUBE SCH ×2 (07:50→21:00)
[2017-10-01] MEDS: POLYETHYLENE GLYCOL 17 GM PKG G-TUBE SCH ×2 (07:50→21:00)
[2017-10-01] MEDS: CHLORHEXIDINE 0.12% (ORAL KIT) 15 ML CUP MT SCH ×2 (08:13→22:15)
[2017-10-01] MEDS: FLUTICASONE PROPIONATE 50 MCG/ACT 16 GM NASAL SPRAY EACH NARE SCH (08:13)
[2017-10-01] MEDS: FAMOTIDINE 20 MG TAB NG SCH ×2 (08:14→22:23)
[2017-10-01] MEDS: CEFUROXIME AXETIL 500 MG TAB PO SCH ×2 (08:14→22:23)
[2017-10-01] MEDS: INSULIN DETEMIR 100 UNITS/ML VIAL SQ SCH ×2 (09:24→22:24)
--- NOTE | 2017-10-01 10:23 | HHI.PR ---
Subjective Remarks in no acute distress. T max 100. Objective Vitals Vital Signs Date Time Temp Pulse Resp B/P (MAP) Pulse Ox O2 Delivery O2 Flow Rate FiO2 10/01/17 08:15 T-Piece 5.00 28 10/01/17 07:55 97 T-piece 28 10/01/17 04:00 99.0 84 20 151/86 (107) 98 10/01/17 03:44 81 10/01/17 00:00 97.8 91 20 131/72 (91) 98 09/30/17 23:49 86 09/30/17 21:40 98 T-piece 28 09/30/17 19:57 82 09/30/17 19:53 T-Piece 6.00 09/30/17 19:53 97.9 81 18 143/84 (103) 99 09/30/17 16:00 98.5 83 20 149/81 (103) 97 09/30/17 12:03 89 09/30/17 12:00 100.0 90 20 174/83 (113) 96 I/O 09/30/17 09/30/17 09/30/17 10/01/17 10/01/17 10/01/17 07:00 15:00 23:00 07:00 15:00 23:00 Intake Total 0 ml 0 ml Output Total 1000 ml 2725 ml 850 ml Balance -1000 ml -2725 ml -850 ml Intake Oral 0 ml 0 ml Output Urine Total 1000 ml 2725 ml 850 ml # Bowel Movements 0 3 1 Result Diagram: 09/29/17 0707 09/29/17 0707 Imaging Last Impressions Chest X-Ray 09/26/17 0000 Signed Impressions: Service Date/Time: Tuesday, September 26, 2017 09:45 - CONCLUSION: Stable examination with left basilar consolidation/effusion. Reyes Guzman MD Maxillofacial CT 09/16/17 0000 Signed Impressions: Service Date/Time: September 01:03 - CONCLUSION: 1. Evidence of acute pansinusitis. 2. Opacification of multiple bilateral mastoid air cells most characteristic of mastoiditis. 3. Mildly prominent cervical chain nodes which may be reactive. Angelo Conn MD Upper Extremity Ultrasound 09/15/17 0000 Signed Impressions: Service Date/Time: Friday, September 15, 2017 17:14 - CONCLUSION: Occlusive thrombus within the left cephalic vein and nonocclusive thrombus within the right cephalic vein. Ric Jack MD Lower Extremity Ultrasound 09/15/17 0000 Signed Impressions: Service Date/Time: Friday, September 15, 2017 16:58 - CONCLUSION: No evidence of DVT within the lower extremities. Ric Jack MD Head CT 09/13/17 0800 Signed Impressions: Service Date/Time: Wednesday, September 13, 2017 09:17 - CONCLUSION: 1. Resolving left basal ganglia hematoma Natan Lagos MD Chest CT 09/13/17 0000 Signed Impressions: Service Date/Time: Wednesday, September 13, 2017 09:28 - CONCLUSION: 1. Bibasilar and left lingular dependent atelectatic changes. Lungs are otherwise clear. 2. Tracheostomy tube with the tip probably positioned above the connie. 3. Compensated cardiomegaly. Reyes Guzman MD Abdomen/Pelvis CT 09/13/17 0000 Signed Impressions: Service Date/Time: Wednesday, September 13, 2017 09:28 - CONCLUSION: 1. There is some stranding in the retroperitoneal perivascular tissues around the distal aorta extending into the bifurcation with a regional borderline lymph nodes. Findings are characteristic of a nonspecific inflammatory process. Findings could represent early retroperitoneal fibrosis.. 2. Urinary bladder is decompressed with some mural thickening in pericystic inflammatory changes possibly representing a chronic cystitis. Nondependent air could be associated with a recent catheterization/instrumentation. 3. Small umbilical and right inguinal hernias only contain fat. 4. Bilateral dependent basilar and left lingular atelectatic changes. Heart size is borderline prominent. 5. Otherwise , bowel is intact without obstruction to explain abdominal distention Reyes Guzman MD Abdomen X-Ray 09/10/17 0600 Signed Impressions: Service Date/Time: Sunday, September 10, 2017 03:56 - CONCLUSION: No significant abnormality is identified. There is mild distention of the colon but there are no findings to suggest bowel obstruction or significant ileus. Ignacio Underwood MD Liver Ultrasound 09/07/17 0000 Signed Impressions: Service Date/Time: Thursday, September 07, 2017 12:37 - CONCLUSION: 1. Unremarkable sonographic appearance of the liver. No evidence for hepatic volume loss or intrahepatic ductal dilatation. 2. No sonographic evidence for cholelithiasis or acute cholecystitis. 3. Mild increased right renal echogenicity may reflect medical renal disease. 4. Small bilateral pleural effusions. 5. Pancreas and inferior pole of the right kidney are obscured by bowel gas and therefore not evaluated. Darrell Robles MD Renal Ultrasound 08/31/17 0000 Signed Impressions: Service Date/Time: Thursday, August 31, 2017 17:42 - CONCLUSION: 1. No evidence of hydronephrosis on either side. 2. Solitary linear echogenic focus in the upper pole parenchyma of the right kidney has similar features to prior examination in January 2017 and possibly represents a calcification. David Snell MD Neck CTA 08/28/177 Signed Impressions: Service Date/Time: Tuesday, August 29, 2017 00:13 - CONCLUSION: Negative carotid CTA. David Snell MD Head CTA 08/28/177 Signed Impressions: Service Date/Time: Tuesday, August 29, 2017 00:13 - CONCLUSION: 1. No evidence of vessel truncation or aneurysm. 2. No abnormal vessels in the region of the large left thalamic hemorrhage. David Snell MD Objective Remarks GENERAL: in no apparent distress. Neck; trach in place. CARDIOVASCULAR: Regular rate and irregular rhythm without murmurs, gallops, or rubs. RESPIRATORY: Clear to auscultation. Breath sounds equal bilaterally. No wheezes , rales, or rhonchi. GASTROINTESTINAL: Abdomen soft, non-tender, nondistended. Normal, active bowel sounds-PEG in place. MUSCULOSKELETAL: Extremities without clubbing, cyanosis, or edema. NEURO: awake. Procedures Tracheostomy and PEG placement Medications and IVs Inpatient Medications Acetaminophen (Tylenol) 650 mg Q6H PRN G-TUBE PAIN 1-5 AND/OR FEVER >101F Last administered on 09/29/17 01:17; Start 09/25/17 at 12:45 Albuterol Sulfate (Albuterol Neb) 2.5 mg Q2HR NEB PRN NEB sob/wheeze Last administered on 09/29/17 00:45; Start 09/25/17 at 13:30 Albuterol/ Ipratropium (Duoneb Neb) 1 ampule Q6HR NEB INH Last administered on 09/21/17 08:25; Start 09/17/17 at 16:00; Stop 09/21/17 at 15:59; Status DC Amlodipine Besylate (Norvasc) 10 mg DAILY G-TUBE Last administered on 08:14; Start 09/26/17 at 09:00 Atorvastatin Calcium (Lipitor) 40 mg HS DOBHOFF Last administered on 21:14; Start 09/25/17 at 21:00 Bisacodyl (Dulcolax Supp) 10 mg DAILY RECTAL Last administered on 08/31/17 11 :58; Start 08/31/17 at 12:00; Stop 09/25/17 at 09:30; Status DC Calcium Acetate (Phoslo) 667 mg TID PO Last administered on 09/08/17 10:38; Start 08/31/17 at 18:00; Stop 09/08/17 at 11:02; Status DC Cefuroxime Axetil (Ceftin) 500 mg Q12HR PO Last administered on 10/01/17 08: 14; Start 09/26/17 at 11:15; Stop 10/03/17 at 11:14 Chlorhexidine Gluconate (Chlorhexidine 2% Cloth) 3 pack BETTING CLERKS PRN TOPICAL SEE LABEL COMMENTS; Start 09/05/17 at 23:00; Stop 09/08/17 at 22:59; Status DC Chlorhexidine Gluconate (Peridex 0.12% Liq) 15 ml BID@08,20 MT Last administered on 10/01/17 08:13; Start 08/29/17 at 08:00 Clonidine (Catapres) 0.3 mg Q8HR G-TUBE Last administered on 10/01/17 05:20; Start 09/25/17 at 14:00 Dantrolene Sodium (Dantrium Inj) 70 mg ONCE ONCE IV Last administered on 03:55; Start 09/13/17 at 03:00; Stop 09/13/17 at 03:01; Status DC Desmopressin Acetate (Ddavp Tae Spr) 1 spray ONCE ONCE EACH NARE Last administered on 09/07/17 15:00; Start 09/07/17 at 15:00; Stop 09/07/17 at 15 :01; Status DC Dexamethasone Sodium Phosphate (Decadron Inj) 6 mg Q12HR IV PUSH Last administered on 09/20/17 09:26; Start 09/17/17 at 21:00; Stop 09/20/17 at 20: 59; Status DC Dexmedetomidine HCl 50 ml @ 29.9 mls/hr TITRATE IV ; Start 08/30/17 at 14:15; Stop 08/30/17 at 14:46; Status DC Dexmedetomidine HCl 1000 mcg/ Sodium Chloride 250 ml @ 29.9 mls/hr TITRATE IV Last administered on 08/30/17 17:58; Start 08/30/17 at 16:45; Stop 08/31/17 at 06:14; Status DC Dexmedetomidine HCl 200 mcg/ Sodium Chloride 50 ml @ 29.9 mls/hr TITRATE IV Last administered on 08/30/17 15:27; Start 08/30/17 at 15:00; Stop 08/30/17 at 16:42; Status DC Dextrose 1,000 ml @ 42 mls/hr [id number] IV Last administered on 09/20/17 09:25 ; Start 09/19/17 at 08:45; Stop 09/20/17 at 11:39; Status DC Dextrose (D50w (Vial) Inj) 25 ml UNSCH PRN IV PUSH HYPOGLYCEMIA-SEE COMMENTS; Start 09/18/17 at 12:00 Diphenhydramine HCl (Benadryl Inj) 25 mg Q6H IV PUSH Last administered on 08:06; Start 09/15/17 at 15:00; Stop 09/18/17 at 14:59; Status DC Etomidate (Amidate Inj) 20 mg ONCE ONCE IVP ; Start 08/29/17 at 00:00; Stop 08/29/17 at 00:01; Status DC Famotidine (Pepcid) 20 mg BID NG Last administered on 10/01/17 08:14; Start 09/24/17 at 09:30 Fentanyl Citrate 250 ml @ 5 mls/hr TITRATE PRN IV SEDATION Last administered on 09/11/17 06:14; Start 08/29/17 at 00:45; Stop 09/11/17 at 10:20; Status DC Fluticasone Propionate (Flonase Tae Spr) 2 spray DAILY EACH NARE Last administered on 10/01/17 08:13; Start 09/05/17 at 17:00 Gelatin (Gelfoam 12 Mm/7 Mm Top) 1 foam Q2HR PRN TOPICAL if still bleeding from peg Last administered on 09/08/17 08:00; Start 09/07/17 at 19:45 Glucagon (Glucagon Inj) 1 mg UNSCH PRN OTHER HYPOGLYCEMIA-SEE COMMENTS; Start 09/25/17 at 09:30 Haloperidol Lactate (Haldol Inj) 5 mg Q4H PRN IV agitation Last administered on 09/12/17 23:04; Start 08/31/17 at 11:00; Stop 09/25/17 at 09:30; Status DC Heparin Sodium (Porcine) (Heparin Inj) 5,000 units Q12HR SQ Last administered on 09/28/17 08:20; Start 09/11/17 at 21:00; Status Future Hold Hydralazine HCl (Apresoline Inj) 10 mg Q30M PRN IV PUSH sbp > 160 Last administered on 09/19/17 09:08; Start 08/30/17 at 08:15 Hydralazine HCl (Apresoline) 100 mg Q8HR G-TUBE Last administered on 05:20; Start 09/25/17 at 14:00 Hydrochlorothiazide (Hydrodiuril) 25 mg DAILY PO Last administered on 10:37; Start 08/29/17 at 09:00; Stop 09/08/17 at 11:02; Status DC Insulin Aspart (NovoLOG SUPPLEMENTAL SCALE) 1 Q6H SQ Last administered on 10/01 05:38; Start 09/25/17 at 12:00 Insulin Detemir (Levemir Inj) 20 units Q12H SQ Last administered on 10/01/17 09:24; Start 09/19/17 at 10:00 Insulin Human Regular (NovoLIN R SUPPLEMENTAL SCALE) 1 Q4HR SQ Last administered on 09/25/17 04:09; Start 09/18/17 at 12:00; Stop 09/25/17 at 09: 28; Status DC Insulin Human Regular (NovoLIN R INJ) See Protocol Table ... BETTING CLERKS PRN SQ SEE PROTOCOL TABLE; Start 09/05/17 at 23:00; Stop 09/08/17 at 22:59; Status DC Labetalol HCl (Trandate Inj) 10 mg Q20M PRN IV PUSH SBP>140, DBP>90 Last administered on 09/19/17 02:16; Start 08/29/17 at 00:45 Labetalol HCl (Trandate) 300 mg NOW ONCE PEG Last administered on 09/17/17 04 :23; Start 09/17/17 at 04:15; Stop 09/17/17 at 04:16; Status DC Lactated Ringer's 1,000 ml @ 30 mls/hr Q24H PRN IV SEE LABEL COMMENTS; Start 09/05/17 at 23:00; Stop 09/08/17 at 22:59; Status DC Lactulose (Lactulose Liq) 30 ml BID PO Last administered on 09/04/17 19:57; Start 08/31/17 at 12:00; Stop 09/25/17 at 09:30; Status DC Lidocaine HCl (Lidocaine Pf 2% Neb) 1 ml Q6HR NEB PRN NEB cough/bronchial irritation; Start 09/16/17 at 11:30 Lisinopril (Prinivil) 40 mg DAILY PO Last administered on 09/04/17 09:07; Start 08/29/17 at 09:00; Stop 09/04/17 at 12:18; Status DC Lorazepam (Ativan Inj) 1 mg ONCE ONCE IV PUSH Last administered on 09/13/17 02:57; Start 09/13/17 at 02:45; Stop 09/13/17 at 02:46; Status DC Lorazepam (Ativan) 1 mg Q12H PO Last administered on 09/09/17 20:27; Start 09/07/17 at 19:00; Stop 09/11/17 at 10:25; Status DC Magnesium Hydroxide (Milk Of Magnesia Liq) 30 ml Q12H PRN PO Mild constipation ; Start 08/29/17 at 00:45; Stop 08/31/17 at 11:08; Status DC Magnesium Citrate (Citroma Liq) 300 ml ONCE ONCE PO Last administered on 08/31 11:57; Start 08/31/17 at 12:00; Stop 08/31/17 at 12:01; Status DC Magnesium Oxide (Mag-Ox) 800 mg UNSCH PRN PO For Magnesium 1.2 - 1.6 mg/dL; Start 08/30/17 at 08:15; Stop 08/31/17 at 13:02; Status DC Magnesium Sulfate 2 gm/Sodium Chloride 100 ml @ 50 mls/hr UNSCH PRN IV For Magnesium 1.2 - 1.6 mg/dL; Start 08/30/17 at 08:15; Stop 08/31/17 at 13:02; Status DC Magnesium Sulfate 4 gm/Sodium Chloride 100 ml @ 50 mls/hr UNSCH PRN IV For Magnesium 0.9 - 1.1 mg/dL; Start 08/30/17 at 08:15; Stop 08/31/17 at 13:02; Status DC Magnesium Sulfate/ Dextrose 100 ml @ 100 mls/hr Q1H IV Last administered on 12:22; Start 08/31/17 at 12:00; Stop 08/31/17 at 13:00; Status DC Metoclopramide HCl (Reglan Inj) 5 mg Q8HR IV PUSH Last administered on 22:55; Start 09/09/17 at 22:00; Stop 09/11/17 at 10:25; Status DC Metoprolol Tartrate (Lopressor) 25 mg Q8H G-TUBE ; Start 09/25/17 at 13:00; Stop 09/25/17 at 13:00; Status DC Midazolam HCl (Versed Inj) 10 mg ONCE ONCE IV PUSH ; Start 09/08/17 at 13:00; Stop 09/08/17 at 13:41; Status DC Miscellaneous Information 1 [id number] Last administered on 08/29/17 01:00; Start 08/29/17 at 00:45 Modafinil (Provigil) 200 mg DAILY PO Last administered on 09/12/17 09:07; Start 09/11/17 at 12:00; Stop 09/25/17 at 09:30; Status DC Morphine Sulfate (Morphine Inj) 2 mg Q2H PRN IV PUSH breakthru pain; Start at 16:30 Nicardipine HCl 25 mg/Sodium Chloride 250 ml @ 50 mls/hr TITRATE PRN IV Blood pressure management Last administered on 09/17/17 04:57; Start 09/13/17 at 02: 45; Stop 09/17/17 at 12:47; Status DC Nicardipine HCl 50 mg/Sodium Chloride 500 ml @ 50 mls/hr TITRATE PRN IV BLOOD PRESSURE MANAGEMENT Last administered on 09/05/17 22:00; Start 09/02/17 at 21 :15; Stop 09/11/17 at 10:25; Status DC Ondansetron HCl (Zofran Inj) 4 mg Q6H PRN IV PUSH NAUSEA OR VOMITING Last administered on 09/11/17 14:18; Start 08/29/17 at 00:45 Oxycodone HCl (Roxicodone Intensol Liq) 5 mg Q6H PRN G-TUBE pain 6-10 Last administered on 09/25/17 20:48; Start 09/25/17 at 15:00 Pantoprazole Sodium (Protonix Inj) 40 mg DAILY IV PUSH Last administered on 09:15; Start 08/29/17 at 09:00; Stop 09/11/17 at 10:25; Status DC Pharmacy Profile Note 0 ml @ 0 mls/hr UNSCH OTHER ; Start 09/13/17 at 02:45; Stop 09/17/17 at 10:11; Status DC Piperacillin Sod/ Tazobactam Sod 50 ml @ 100 mls/hr Q6H IV Last administered on 09/19/17 20:26; Start 09/13/17 at 03:00; Stop 09/19/17 at 23:00; Status DC Polyethylene Glycol (Miralax) 17 gm BID G-TUBE Last administered on 09/30/17 21:19; Start 09/25/17 at 21:00 Potassium Chloride 30 meq/ Sodium Chloride 115 ml @ 38.333 mls/ hr ONCE ONCE IV-CENTRAL Last administered on 09/03/17 13:36; Start 09/03/17 at 14:00; Stop 09/03/17 at 16:59; Status DC Potassium Phosphate (K-Phos) 2,000 mg UNSCH PRN PO/TUBE SEE LABEL COMMENTS; Start 08/30/17 at 08:15; Stop 08/31/17 at 13:02; Status DC Potassium Phosphate 30 mmol/ Sodium Chloride 260 ml @ 42 mls/hr UNSCH PRN IV SEE LABEL COMMENTS; Start 08/30/17 at 08:15; Stop 08/31/17 at 13:02; Status DC Potassium Bicarb/ Potassium Chloride (K-Lyte Cl Eff) 50 meq ONCE ONCE PO Last administered on 09/25/17 05:25; Start 09/25/17 at 04:30; Stop 09/25/17 at 04:31; Status DC Potassium Chloride 100 ml @ 50 mls/hr Q2H IV Last administered on 09/15/17 10 :22; Start 09/15/17 at 08:15; Stop 09/15/17 at 12:14; Status DC Potassium Chloride (KCl Powder) 40 meq ONCE ONCE PEG Last administered on 12:15; Start 09/08/17 at 12:15; Stop 09/08/17 at 12:21; Status DC Potassium Chloride (KCl) 40 meq ONCE ONCE PO ; Start 09/08/17 at 09:00; Stop 09/08/17 at 12:05; Status DC Povidone Iodine (Betadine 5% Antisepsis Kit) 1 applic BETTING CLERKS PRN EACH NARE SEE LABEL COMMENTS; Start 09/05/17 at 23:00; Stop 09/08/17 at 22:59; Status DC Propofol 100 ml @ 14.352 mls/ hr TITRATE PRN IV SEDATION Last administered on 09/10/17 09:59; Start 08/31/17 at 00:30; Stop 09/11/17 at 10:20; Status DC Propranolol HCl (Inderal) 40 mg Q6HR G-TUBE Last administered on 10/01/17 05: 20; Start 09/25/17 at 12:00 Quetiapine Fumarate (SEROquel) 50 mg Q8HR G-TUBE Last administered on 05:21; Start 09/25/17 at 14:00 Rocuronium Shiloh (Zemuron Inj) 100 mg BOLUS ONCE IV ; Start 09/08/17 at 13: 00; Stop 09/08/17 at 13:44; Status DC Senna/Docusate Sodium (Melina-Colace) 1 tab BID G-TUBE Last administered on 09/30 21:15; Start 09/25/17 at 21:00 Sennosides (Senokot) 17.2 mg Q12H PRN PO Moderate constipation; Start at 00:45; Stop 08/31/17 at 11:08; Status DC Silver Nitrate/ Potassium Nitrate (Silver Nitrate Applicators) 1 appl ONCE ONCE TOPICAL Last administered on 09/07/17 10:15; Start 09/07/17 at 10:15; Stop 09/07/17 at 10:47; Status DC Sodium Polystyrene Sulfonate (Kayexalate Liq) 30 gm Q2HR PO Last administered on 09/21/17 19:53; Start 09/21/17 at 16:00; Stop 09/21/17 at 21:00; Status DC Sodium Chloride 250 ml @ 15 mls/hr ONCE ONCE IV ; Start 09/28/17 at 10:15; Stop 09/28/17 at 16:53; Status DC Sodium Chloride (NS Flush) 2 ml UNSCH PRN IVF FLUSH AFTER USING IV ACCESS Last administered on 09/28/17 20:47; Start 08/29/17 at 00:00 Sodium Chloride 38.5 meq/Sterile Water 1,009.625 ml @ 42 mls/hr Q24H IV Last administered on 09/25/17 06:01; Start 09/20/17 at 13:00; Stop 09/25/17 at 09 :24; Status DC Sodium Phosphate 30 mmol/Sodium Chloride 250 ml @ 42 mls/hr UNSCH PRN IV For Phosphorus < 2.5 mg/dL; Start 08/30/17 at 08:15; Stop 08/31/17 at 13:02; Status DC Succinylcholine Chloride (Quelicin Inj) 100 mg ONCE ONCE IV PUSH ; Start 08/29 at 00:00; Stop 08/29/17 at 00:01; Status DC Vancomycin HCl 1500 mg/Sodium Chloride 515 ml @ 257.5 mls/ hr ONCE ONCE IV Last administered on 09/16/17 17:07; Start 09/16/17 at 15:00; Stop 09/16/17 at 16:59; Status DC Vancomycin HCl 2000 mg/Sodium Chloride 520 ml @ 250 mls/hr ONCE ONCE IV Last administered on 09/13/17 05:52; Start 09/13/17 at 04:00; Stop 09/13/17 at 06:04 ; Status DC Vancomycin HCl 2500 mg/Sodium Chloride 525 ml @ 250 mls/hr ONCE ONCE IV Last administered on 09/14/17 12:29; Start 09/14/17 at 12:00; Stop 09/14/17 at 14:05 ; Status DC Water (Free Water) 300 ml Q4HR G-TUBE Last administered on 10/01/17t 08:13; Start 09/18/17 at 12:00 A/P Problem List: (1) Intracranial hemorrhage ICD Code: I62.9 - Nontraumatic intracranial hemorrhage, unspecified Status: Acute Assessment and Plan A/P Acute encephalopathy - improving. Left Thalamic Hemorrhage, with IV extension Intracerebral Hemorrhage - Repeat CT of the head showed improving bleed - Neurosurgery following. Continue neurochecks. Repeat head CT for any decline in neuro status. - Continue rehabilitation efforts with PT, OT, speech - On Seroquel to control agitated delirium. Roxicodone as needed for pain Anemia likely due to chronic disease. H/H fairly stable. will monitor periodically. Healthcare associated pneumonia: Previously treated with antibiotics. - 09/25;Patient recurrent fever and new leukocytosis. His chest x-ray shows stable left lower lobe consolidation. Previously completed treatment with antibiotics. Last antibiotics dose was about a week ago for Klebsiella. - Given worsening cough, fever, and leukocytosis. Continue Ceftin for a 7 day course. -had a low grade fever yesterday;-will continue to monitor temps. -consider ID evaluation with persistent fever. UTI: Urine is growing pseudomonas. Continue cefuroxime as above. Follow urine cultures Respiratory failure s/p trach - Tolerating T piece - CT of the chest 09/13/17 -LLL infiltrate. Repeat chest x-ray on 09/26/17 shows stable left lower lobe consolidation - DuoNeb every 6 hours scheduled and when necessary -Patient had angioedema, source unclear and was seen by ENT. He was treated with steroids. Per ENT, expect slow improvement. This is resolving. -Appreciate pulmonology following for trach management Hyperglycemia - persistent. - Continue Levemir 20 units SQ q12h - Continue sliding scale insulin with Accu-Cheks. - hemoglobin A1c 9.1. Hypertension - Intermittent hypertension now well controlled - Continue clonidine, amlodipine and propranolol - Continue hydralazine. Nutrition status: - Status post PEG tube continue tube feeds - Having bowel movements - Continue Free water 300mL per tube q4h - Pepcid per tube Acute kidney injury, most likely has CK D per nephrology: Renal function stabilized. - Follow I/oh Physical deconditioning/right sided hemiparesis - OOB to stretcher chair daily - PT/OT following PROPH: - SCD's. Pepcid for GI prophylaxis Discharge Planning dc planning to SNF. Zoë Rivas MD Oct 01, 2017 10:23
[2017-10-01 11:17] LABS: AUTOMATED NEUTROPHIL # 4.6 TH/MM3 (1.8-7.7); BASOPHIL # 0.1 TH/MM3 (0-0.2); EOSINOPHIL # 0.3 TH/MM3 (0-0.4); HEMATOCRIT 22.1 % (39.0-51.0); HEMOGLOBIN 7.4 GM/DL (13.0-17.0); LYMPHOCYTE # 0.9 TH/MM3 (1.0-4.8); MEAN CELL VOLUME 81.3 FL (80.0-100.0); MEAN CORPUSCULAR HEMOGLOBIN 27.3 PG (27.0-34.0); MEAN CORPUSCULAR HGB CONC 33.6 % (32.0-36.0); MEAN PLATELET VOLUME 9.4 FL (7.0-11.0); MONOCYTE # 0.7 TH/MM3 (0-0.9); PLATELET COUNT 291 TH/MM3 (150-450); RED BLOOD COUNT 2.72 MIL/MM3 (4.50-5.90); RED CELL DISTRIBUTION WIDTH 14.5 % (11.6-17.2); WHITE BLOOD COUNT 6.6 TH/MM3 (4.0-11.0)
--- NOTE | 2017-10-01 16:11 | HHI.PR ---
Subjective Remarks OPENS EyES NO DISTRESS TRACH OK Objective Vital Signs Date Time Temp Pulse Resp B/P (MAP) Pulse Ox O2 Delivery O2 Flow Rate FiO2 10/01/17 08:15 T-Piece 5.00 28 10/01/17 08:00 79 10/01/17 07:55 97 T-piece 28 10/01/17 04:00 99.0 84 20 151/86 (107) 98 10/01/17 03:44 81 10/01/17 00:00 97.8 91 20 131/72 (91) 98 09/30/17 23:49 86 09/30/17 21:40 98 T-piece 28 09/30/17 19:57 82 09/30/17 19:53 T-Piece 6.00 09/30/17 19:53 97.9 81 18 143/84 (103) 99 I/O 09/30/17 09/30/17 09/30/17 10/01/17 10/01/17 10/01/17 07:00 15:00 23:00 07:00 15:00 23:00 Intake Total 0 ml 0 ml Output Total 1000 ml 2725 ml 850 ml Balance -1000 ml -2725 ml -850 ml Intake Oral 0 ml 0 ml Output Urine Total 1000 ml 2725 ml 850 ml # Bowel Movements 0 3 1 Result Diagram: 10/01/17 1015 09/29/17 0707 Objective Remarks GENERAL: SKIN: Warm and dry. HEAD: Atraumatic. Normocephalic. EYES: Pupils equal and round. No scleral icterus. No injection or drainage. ENT: No nasal bleeding or discharge. Mucous membranes pink and moist. NECK: Trachea midline. No JVD. CARDIOVASCULAR: Regular rate and rhythm. RESPIRATORY: No accessory muscle use. Clear to auscultation. Breath sounds equal bilaterally. GASTROINTESTINAL: Abdomen soft, non-tender, nondistended. Hepatic and splenic margins not palpable. MUSCULOSKELETAL: Extremities without clubbing, cyanosis, or edema. No obvious deformities. NEUROLOGICAL: Awake and alert. No obvious cranial nerve deficits. Motor grossly within normal limits. Five out of 5 muscle strength in the arms and legs. Normal speech. PSYCHIATRIC: Appropriate mood and affect; insight and judgment normal. Assessment and Plan Assessment and Plan RESPIRATORY FAILURE S/P TRACH S/P CVA OBESITY HTN PLAN O2 NEEDED PULM TOILET INCREASE ACTIVITY REMOVE TRACH WHEN POSSIBLE Wang,Wang Wadie MD Oct 01, 2017 16:11
[2017-10-01] MEDS: ATORVASTATIN 40 MG TAB DOBHOFF SCH (22:23)
[2017-10-02] VITALS (12 sets, daily range): BP systolic 124–175; BP diastolic 68–89; PULSE 78–96; RESP 20; TEMP 98–99.2; O2SAT 92–100
[2017-10-02] MEDS: PROPRANOLOL HCL 40 MG TAB G-TUBE SCH ×4 (00:55→18:37)
[2017-10-02] MEDS: FREE WATER G-TUBE SCH ×6 (00:56→21:16)
[2017-10-02] MEDS: INSULIN ASPART SUPPLEMENTAL SCALE SQ SCH ×4 (00:59→18:38)
[2017-10-02] MEDS: CHLORHEXIDINE GLUCONATE 2 % 1 PACK (2 CLOTHS) TOP SCH (04:00)
[2017-10-02] MEDS: hydrALAZINE HCL 100 MG TAB G-TUBE SCH ×3 (05:15→21:17)
[2017-10-02] MEDS: QUEtiapine FUMARATE 25 MG TAB G-TUBE SCH ×3 (05:16→21:18)
[2017-10-02] MEDS: cloNIDine HCL 0.3 MG TAB G-TUBE SCH ×3 (05:16→21:18)
[2017-10-02 08:29] LABS: AUTOMATED NEUTROPHIL # 4.9 TH/MM3 (1.8-7.7); BASOPHIL # 0.1 TH/MM3 (0-0.2); BASOPHIL % 0.9 % (0.0-2.0); EOSINOPHIL # 0.3 TH/MM3 (0-0.4); EOSINOPHIL % 4.5 % (0.0-4.0); HEMATOCRIT 21.9 % (39.0-51.0); HEMOGLOBIN 7.3 GM/DL (13.0-17.0); LYMPH % 15.8 % (9.0-44.0); LYMPHOCYTE # 1.1 TH/MM3 (1.0-4.8); MEAN CELL VOLUME 81.7 FL (80.0-100.0); MEAN CORPUSCULAR HEMOGLOBIN 27.4 PG (27.0-34.0); MEAN CORPUSCULAR HGB CONC 33.5 % (32.0-36.0); MEAN PLATELET VOLUME 9.4 FL (7.0-11.0); MONO % 8.6 % (0.0-8.0); MONOCYTE # 0.6 TH/MM3 (0-0.9); NEUT % 70.2 % (16.0-70.0); PLATELET COUNT 302 TH/MM3 (150-450); RED BLOOD COUNT 2.68 MIL/MM3 (4.50-5.90); RED CELL DISTRIBUTION WIDTH 14.8 % (11.6-17.2)
[2017-10-02] MEDS: FLUTICASONE PROPIONATE 50 MCG/ACT 16 GM NASAL SPRAY EACH NARE SCH (09:00)
[2017-10-02] MEDS: DOCUSATE SODIUM 50 MG/SENNA 8.6 MG TAB G-TUBE SCH ×2 (09:00→21:00)
[2017-10-02] MEDS: POLYETHYLENE GLYCOL 17 GM PKG G-TUBE SCH ×2 (09:00→21:00)
--- NOTE | 2017-10-02 10:46 | HHI.PR ---
Subjective Remarks in no distress. denies pain. still with some right sided weakness. Objective Vitals Vital Signs Date Time Temp Pulse Resp B/P (MAP) Pulse Ox O2 Delivery O2 Flow Rate FiO2 10/02/17 08:54 98 T-piece 28 10/02/17 08:11 98.8 78 20 131/70 (90) 95 10/02/17 08:00 T-Piece 5.00 28 10/02/17 06:08 98.0 81 20 167/85 (112) 98 10/02/17 03:53 79 10/02/17 00:00 98.5 83 20 138/82 (100) 100 10/01/17 23:46 81 10/01/17 22:19 99.0 84 18 152/85 (107) 100 10/01/17 20:30 T-Piece 5.00 10/01/17 19:44 77 10/01/17 16:04 79 10/01/17 16:00 98.3 88 20 152/80 (104) 98 10/01/17 12:31 82 10/01/17 12:00 98.9 81 20 158/81 (106) 98 I/O 10/01/17 10/01/17 10/01/17 10/02/17 10/02/17 10/02/17 07:00 15:00 23:00 07:00 15:00 23:00 Intake Total 0 ml 0 ml Output Total 850 ml 700 ml 1700 ml Balance -850 ml -700 ml -1700 ml Intake Oral 0 ml 0 ml Output Urine Total 850 ml 700 ml 1700 ml # Bowel Movements 1 2 Result Diagram: 10/02/17 0719 09/29/17 0707 Imaging Last Impressions Chest X-Ray 09/26/17 0000 Signed Impressions: Service Date/Time: Tuesday, September 26, 2017 09:45 - CONCLUSION: Stable examination with left basilar consolidation/effusion. Reyes Guzman MD Maxillofacial CT 09/16/17 0000 Signed Impressions: Service Date/Time: September 01:03 - CONCLUSION: 1. Evidence of acute pansinusitis. 2. Opacification of multiple bilateral mastoid air cells most characteristic of mastoiditis. 3. Mildly prominent cervical chain nodes which may be reactive. Angelo Conn MD Upper Extremity Ultrasound 09/15/17 0000 Signed Impressions: Service Date/Time: Friday, September 15, 2017 17:14 - CONCLUSION: Occlusive thrombus within the left cephalic vein and nonocclusive thrombus within the right cephalic vein. Ric Jack MD Lower Extremity Ultrasound 09/15/17 0000 Signed Impressions: Service Date/Time: Friday, September 15, 2017 16:58 - CONCLUSION: No evidence of DVT within the lower extremities. Ric Jack MD Head CT 09/13/17 0800 Signed Impressions: Service Date/Time: Wednesday, September 13, 2017 09:17 - CONCLUSION: 1. Resolving left basal ganglia hematoma Natan Lagos MD Chest CT 09/13/17 0000 Signed Impressions: Service Date/Time: Wednesday, September 13, 2017 09:28 - CONCLUSION: 1. Bibasilar and left lingular dependent atelectatic changes. Lungs are otherwise clear. 2. Tracheostomy tube with the tip probably positioned above the connie. 3. Compensated cardiomegaly. Reyes Guzman MD Abdomen/Pelvis CT 09/13/17 0000 Signed Impressions: Service Date/Time: Wednesday, September 13, 2017 09:28 - CONCLUSION: 1. There is some stranding in the retroperitoneal perivascular tissues around the distal aorta extending into the bifurcation with a regional borderline lymph nodes. Findings are characteristic of a nonspecific inflammatory process. Findings could represent early retroperitoneal fibrosis.. 2. Urinary bladder is decompressed with some mural thickening in pericystic inflammatory changes possibly representing a chronic cystitis. Nondependent air could be associated with a recent catheterization/instrumentation. 3. Small umbilical and right inguinal hernias only contain fat. 4. Bilateral dependent basilar and left lingular atelectatic changes. Heart size is borderline prominent. 5. Otherwise , bowel is intact without obstruction to explain abdominal distention Reyes Guzman MD Abdomen X-Ray 09/10/17 0600 Signed Impressions: Service Date/Time: Sunday, September 10, 2017 03:56 - CONCLUSION: No significant abnormality is identified. There is mild distention of the colon but there are no findings to suggest bowel obstruction or significant ileus. Ignacio Underwood MD Liver Ultrasound 09/07/17 0000 Signed Impressions: Service Date/Time: Thursday, September 07, 2017 12:37 - CONCLUSION: 1. Unremarkable sonographic appearance of the liver. No evidence for hepatic volume loss or intrahepatic ductal dilatation. 2. No sonographic evidence for cholelithiasis or acute cholecystitis. 3. Mild increased right renal echogenicity may reflect medical renal disease. 4. Small bilateral pleural effusions. 5. Pancreas and inferior pole of the right kidney are obscured by bowel gas and therefore not evaluated. Darrell Robles MD Renal Ultrasound 08/31/17 0000 Signed Impressions: Service Date/Time: Thursday, August 31, 2017 17:42 - CONCLUSION: 1. No evidence of hydronephrosis on either side. 2. Solitary linear echogenic focus in the upper pole parenchyma of the right kidney has similar features to prior examination in January 2017 and possibly represents a calcification. David Snell MD Neck CTA 08/28/177 Signed Impressions: Service Date/Time: Tuesday, August 29, 2017 00:13 - CONCLUSION: Negative carotid CTA. David Snell MD Head CTA 08/28/177 Signed Impressions: Service Date/Time: Tuesday, August 29, 2017 00:13 - CONCLUSION: 1. No evidence of vessel truncation or aneurysm. 2. No abnormal vessels in the region of the large left thalamic hemorrhage. David Snell MD Objective Remarks GENERAL: in no apparent distress. Neck; trach in place. CARDIOVASCULAR: Regular rate and irregular rhythm without murmurs, gallops, or rubs. RESPIRATORY: Clear to auscultation. Breath sounds equal bilaterally. No wheezes , rales, or rhonchi. GASTROINTESTINAL: Abdomen soft, non-tender, nondistended. Normal, active bowel sounds-PEG in place. MUSCULOSKELETAL: Extremities without clubbing, cyanosis, or edema. NEURO: awake. Procedures Tracheostomy and PEG placement Medications and IVs Inpatient Medications Acetaminophen (Tylenol) 650 mg Q6H PRN G-TUBE PAIN 1-5 AND/OR FEVER >101F Last administered on 09/29/17 01:17; Start 09/25/17 at 12:45 Albuterol Sulfate (Albuterol Neb) 2.5 mg Q2HR NEB PRN NEB sob/wheeze Last administered on 09/29/17 00:45; Start 09/25/17 at 13:30 Albuterol/ Ipratropium (Duoneb Neb) 1 ampule Q6HR NEB INH Last administered on 09/21/17 08:25; Start 09/17/17 at 16:00; Stop 09/21/17 at 15:59; Status DC Amlodipine Besylate (Norvasc) 10 mg DAILY G-TUBE Last administered on 08:14; Start 09/26/17 at 09:00 Atorvastatin Calcium (Lipitor) 40 mg HS DOBHOFF Last administered on 22:23; Start 09/25/17 at 21:00 Bisacodyl (Dulcolax Supp) 10 mg DAILY RECTAL Last administered on 08/31/17 11 :58; Start 08/31/17 at 12:00; Stop 09/25/17 at 09:30; Status DC Calcium Acetate (Phoslo) 667 mg TID PO Last administered on 09/08/17 10:38; Start 08/31/17 at 18:00; Stop 09/08/17 at 11:02; Status DC Cefuroxime Axetil (Ceftin) 500 mg Q12HR PO Last administered on 10/01/17 22: 23; Start 09/26/17 at 11:15; Stop 10/03/17 at 11:14 Chlorhexidine Gluconate (Chlorhexidine 2% Cloth) 3 pack SECURITY INVESTIGATOR PRN TOPICAL SEE LABEL COMMENTS; Start 09/05/17 at 23:00; Stop 09/08/17 at 22:59; Status DC Chlorhexidine Gluconate (Peridex 0.12% Liq) 15 ml BID@08,20 MT Last administered on 10/01/17 22:15; Start 08/29/17 at 08:00 Clonidine (Catapres) 0.3 mg Q8HR G-TUBE Last administered on 10/02/17 05:16; Start 09/25/17 at 14:00 Dantrolene Sodium (Dantrium Inj) 70 mg ONCE ONCE IV Last administered on 03:55; Start 09/13/17 at 03:00; Stop 09/13/17 at 03:01; Status DC Desmopressin Acetate (Ddavp Tae Spr) 1 spray ONCE ONCE EACH NARE Last administered on 09/07/17 15:00; Start 09/07/17 at 15:00; Stop 09/07/17 at 15 :01; Status DC Dexamethasone Sodium Phosphate (Decadron Inj) 6 mg Q12HR IV PUSH Last administered on 09/20/17 09:26; Start 09/17/17 at 21:00; Stop 09/20/17 at 20: 59; Status DC Dexmedetomidine HCl 50 ml @ 29.9 mls/hr TITRATE IV ; Start 08/30/17 at 14:15; Stop 08/30/17 at 14:46; Status DC Dexmedetomidine HCl 1000 mcg/ Sodium Chloride 250 ml @ 29.9 mls/hr TITRATE IV Last administered on 08/30/17 17:58; Start 08/30/17 at 16:45; Stop 08/31/17 at 06:14; Status DC Dexmedetomidine HCl 200 mcg/ Sodium Chloride 50 ml @ 29.9 mls/hr TITRATE IV Last administered on 08/30/17 15:27; Start 08/30/17 at 15:00; Stop 08/30/17 at 16:42; Status DC Dextrose 1,000 ml @ 42 mls/hr [id number] IV Last administered on 09/20/17 09:25 ; Start 09/19/17 at 08:45; Stop 09/20/17 at 11:39; Status DC Dextrose (D50w (Vial) Inj) 25 ml UNSCH PRN IV PUSH HYPOGLYCEMIA-SEE COMMENTS; Start 09/18/17 at 12:00 Diphenhydramine HCl (Benadryl Inj) 25 mg Q6H IV PUSH Last administered on 08:06; Start 09/15/17 at 15:00; Stop 09/18/17 at 14:59; Status DC Etomidate (Amidate Inj) 20 mg ONCE ONCE IVP ; Start 08/29/17 at 00:00; Stop 08/29/17 at 00:01; Status DC Famotidine (Pepcid) 20 mg BID NG Last administered on 10/01/17 22:23; Start 09/24/17 at 09:30 Fentanyl Citrate 250 ml @ 5 mls/hr TITRATE PRN IV SEDATION Last administered on 09/11/17 06:14; Start 08/29/17 at 00:45; Stop 09/11/17 at 10:20; Status DC Fluticasone Propionate (Flonase Tae Spr) 2 spray DAILY EACH NARE Last administered on 10/01/17 08:13; Start 09/05/17 at 17:00 Gelatin (Gelfoam 12 Mm/7 Mm Top) 1 foam Q2HR PRN TOPICAL if still bleeding from peg Last administered on 09/08/17 08:00; Start 09/07/17 at 19:45 Glucagon (Glucagon Inj) 1 mg UNSCH PRN OTHER HYPOGLYCEMIA-SEE COMMENTS; Start 09/25/17 at 09:30 Haloperidol Lactate (Haldol Inj) 5 mg Q4H PRN IV agitation Last administered on 09/12/17 23:04; Start 08/31/17 at 11:00; Stop 09/25/17 at 09:30; Status DC Heparin Sodium (Porcine) (Heparin Inj) 5,000 units Q12HR SQ Last administered on 09/28/17 08:20; Start 09/11/17 at 21:00; Status Future Hold Hydralazine HCl (Apresoline Inj) 10 mg Q30M PRN IV PUSH sbp > 160 Last administered on 09/19/17 09:08; Start 08/30/17 at 08:15 Hydralazine HCl (Apresoline) 100 mg Q8HR G-TUBE Last administered on 05:15; Start 09/25/17 at 14:00 Hydrochlorothiazide (Hydrodiuril) 25 mg DAILY PO Last administered on 10:37; Start 08/29/17 at 09:00; Stop 09/08/17 at 11:02; Status DC Insulin Aspart (NovoLOG SUPPLEMENTAL SCALE) 1 Q6H SQ Last administered on 10/02 05:22; Start 09/25/17 at 12:00 Insulin Detemir (Levemir Inj) 20 units Q12H SQ Last administered on 10/01/17 22:24; Start 09/19/17 at 10:00 Insulin Human Regular (NovoLIN R SUPPLEMENTAL SCALE) 1 Q4HR SQ Last administered on 09/25/17 04:09; Start 09/18/17 at 12:00; Stop 09/25/17 at 09: 28; Status DC Insulin Human Regular (NovoLIN R INJ) See Protocol Table ... SECURITY INVESTIGATOR PRN SQ SEE PROTOCOL TABLE; Start 09/05/17 at 23:00; Stop 09/08/17 at 22:59; Status DC Labetalol HCl (Trandate Inj) 10 mg Q20M PRN IV PUSH SBP>140, DBP>90 Last administered on 09/19/17 02:16; Start 08/29/17 at 00:45 Labetalol HCl (Trandate) 300 mg NOW ONCE PEG Last administered on 09/17/17 04 :23; Start 09/17/17 at 04:15; Stop 09/17/17 at 04:16; Status DC Lactated Ringer's 1,000 ml @ 30 mls/hr Q24H PRN IV SEE LABEL COMMENTS; Start 09/05/17 at 23:00; Stop 09/08/17 at 22:59; Status DC Lactulose (Lactulose Liq) 30 ml BID PO Last administered on 09/04/17 19:57; Start 08/31/17 at 12:00; Stop 09/25/17 at 09:30; Status DC Lidocaine HCl (Lidocaine Pf 2% Neb) 1 ml Q6HR NEB PRN NEB cough/bronchial irritation; Start 09/16/17 at 11:30 Lisinopril (Prinivil) 40 mg DAILY PO Last administered on 09/04/17 09:07; Start 08/29/17 at 09:00; Stop 09/04/17 at 12:18; Status DC Lorazepam (Ativan Inj) 1 mg ONCE ONCE IV PUSH Last administered on 09/13/17 02:57; Start 09/13/17 at 02:45; Stop 09/13/17 at 02:46; Status DC Lorazepam (Ativan) 1 mg Q12H PO Last administered on 09/09/17 20:27; Start 09/07/17 at 19:00; Stop 09/11/17 at 10:25; Status DC Magnesium Hydroxide (Milk Of Magnesia Liq) 30 ml Q12H PRN PO Mild constipation ; Start 08/29/17 at 00:45; Stop 08/31/17 at 11:08; Status DC Magnesium Citrate (Citroma Liq) 300 ml ONCE ONCE PO Last administered on 08/31 11:57; Start 08/31/17 at 12:00; Stop 08/31/17 at 12:01; Status DC Magnesium Oxide (Mag-Ox) 800 mg UNSCH PRN PO For Magnesium 1.2 - 1.6 mg/dL; Start 08/30/17 at 08:15; Stop 08/31/17 at 13:02; Status DC Magnesium Sulfate 2 gm/Sodium Chloride 100 ml @ 50 mls/hr UNSCH PRN IV For Magnesium 1.2 - 1.6 mg/dL; Start 08/30/17 at 08:15; Stop 08/31/17 at 13:02; Status DC Magnesium Sulfate 4 gm/Sodium Chloride 100 ml @ 50 mls/hr UNSCH PRN IV For Magnesium 0.9 - 1.1 mg/dL; Start 08/30/17 at 08:15; Stop 08/31/17 at 13:02; Status DC Magnesium Sulfate/ Dextrose 100 ml @ 100 mls/hr Q1H IV Last administered on 12:22; Start 08/31/17 at 12:00; Stop 08/31/17 at 13:00; Status DC Metoclopramide HCl (Reglan Inj) 5 mg Q8HR IV PUSH Last administered on 22:55; Start 09/09/17 at 22:00; Stop 09/11/17 at 10:25; Status DC Metoprolol Tartrate (Lopressor) 25 mg Q8H G-TUBE ; Start 09/25/17 at 13:00; Stop 09/25/17 at 13:00; Status DC Midazolam HCl (Versed Inj) 10 mg ONCE ONCE IV PUSH ; Start 09/08/17 at 13:00; Stop 09/08/17 at 13:41; Status DC Miscellaneous Information 1 [id number] Last administered on 08/29/17 01:00; Start 08/29/17 at 00:45 Modafinil (Provigil) 200 mg DAILY PO Last administered on 09/12/17 09:07; Start 09/11/17 at 12:00; Stop 09/25/17 at 09:30; Status DC Morphine Sulfate (Morphine Inj) 2 mg Q2H PRN IV PUSH breakthru pain; Start at 16:30 Nicardipine HCl 25 mg/Sodium Chloride 250 ml @ 50 mls/hr TITRATE PRN IV Blood pressure management Last administered on 09/17/17 04:57; Start 09/13/17 at 02: 45; Stop 09/17/17 at 12:47; Status DC Nicardipine HCl 50 mg/Sodium Chloride 500 ml @ 50 mls/hr TITRATE PRN IV BLOOD PRESSURE MANAGEMENT Last administered on 09/05/17 22:00; Start 09/02/17 at 21 :15; Stop 09/11/17 at 10:25; Status DC Ondansetron HCl (Zofran Inj) 4 mg Q6H PRN IV PUSH NAUSEA OR VOMITING Last administered on 09/11/17 14:18; Start 08/29/17 at 00:45 Oxycodone HCl (Roxicodone Intensol Liq) 5 mg Q6H PRN G-TUBE pain 6-10 Last administered on 09/25/17 20:48; Start 09/25/17 at 15:00 Pantoprazole Sodium (Protonix Inj) 40 mg DAILY IV PUSH Last administered on 09:15; Start 08/29/17 at 09:00; Stop 09/11/17 at 10:25; Status DC Pharmacy Profile Note 0 ml @ 0 mls/hr UNSCH OTHER ; Start 09/13/17 at 02:45; Stop 09/17/17 at 10:11; Status DC Piperacillin Sod/ Tazobactam Sod 50 ml @ 100 mls/hr Q6H IV Last administered on 09/19/17 20:26; Start 09/13/17 at 03:00; Stop 09/19/17 at 23:00; Status DC Polyethylene Glycol (Miralax) 17 gm BID G-TUBE Last administered on 09/30/17 21:19; Start 09/25/17 at 21:00 Potassium Chloride 30 meq/ Sodium Chloride 115 ml @ 38.333 mls/ hr ONCE ONCE IV-CENTRAL Last administered on 09/03/17 13:36; Start 09/03/17 at 14:00; Stop 09/03/17 at 16:59; Status DC Potassium Phosphate (K-Phos) 2,000 mg UNSCH PRN PO/TUBE SEE LABEL COMMENTS; Start 08/30/17 at 08:15; Stop 08/31/17 at 13:02; Status DC Potassium Phosphate 30 mmol/ Sodium Chloride 260 ml @ 42 mls/hr UNSCH PRN IV SEE LABEL COMMENTS; Start 08/30/17 at 08:15; Stop 08/31/17 at 13:02; Status DC Potassium Bicarb/ Potassium Chloride (K-Lyte Cl Eff) 50 meq ONCE ONCE PO Last administered on 09/25/17 05:25; Start 09/25/17 at 04:30; Stop 09/25/17 at 04:31; Status DC Potassium Chloride 100 ml @ 50 mls/hr Q2H IV Last administered on 09/15/17 10 :22; Start 09/15/17 at 08:15; Stop 09/15/17 at 12:14; Status DC Potassium Chloride (KCl Powder) 40 meq ONCE ONCE PEG Last administered on 12:15; Start 09/08/17 at 12:15; Stop 09/08/17 at 12:21; Status DC Potassium Chloride (KCl) 40 meq ONCE ONCE PO ; Start 09/08/17 at 09:00; Stop 09/08/17 at 12:05; Status DC Povidone Iodine (Betadine 5% Antisepsis Kit) 1 applic SECURITY INVESTIGATOR PRN EACH NARE SEE LABEL COMMENTS; Start 09/05/17 at 23:00; Stop 09/08/17 at 22:59; Status DC Propofol 100 ml @ 14.352 mls/ hr TITRATE PRN IV SEDATION Last administered on 09/10/17 09:59; Start 08/31/17 at 00:30; Stop 09/11/17 at 10:20; Status DC Propranolol HCl (Inderal) 40 mg Q6HR G-TUBE Last administered on 10/02/17 05: 16; Start 09/25/17 at 12:00 Quetiapine Fumarate (SEROquel) 50 mg Q8HR G-TUBE Last administered on 05:16; Start 09/25/17 at 14:00 Rocuronium [place] (Zemuron Inj) 100 mg BOLUS ONCE IV ; Start 09/08/17 at 13: 00; Stop 09/08/17 at 13:44; Status DC Senna/Docusate Sodium (Melina-Colace) 1 tab BID G-TUBE Last administered on 09/30 21:15; Start 09/25/17 at 21:00 Sennosides (Senokot) 17.2 mg Q12H PRN PO Moderate constipation; Start at 00:45; Stop 08/31/17 at 11:08; Status DC Silver Nitrate/ Potassium Nitrate (Silver Nitrate Applicators) 1 appl ONCE ONCE TOPICAL Last administered on 09/07/17 10:15; Start 09/07/17 at 10:15; Stop 09/07/17 at 10:47; Status DC Sodium Polystyrene Sulfonate (Kayexalate Liq) 30 gm Q2HR PO Last administered on 09/21/17 19:53; Start 09/21/17 at 16:00; Stop 09/21/17 at 21:00; Status DC Sodium Chloride 250 ml @ 15 mls/hr ONCE ONCE IV ; Start 09/28/17 at 10:15; Stop 09/28/17 at 16:53; Status DC Sodium Chloride (NS Flush) 2 ml UNSCH PRN IVF FLUSH AFTER USING IV ACCESS Last administered on 09/28/17 20:47; Start 08/29/17 at 00:00 Sodium Chloride 38.5 meq/Sterile Water 1,009.625 ml @ 42 mls/hr Q24H IV Last administered on 09/25/17 06:01; Start 09/20/17 at 13:00; Stop 09/25/17 at 09 :24; Status DC Sodium Phosphate 30 mmol/Sodium Chloride 250 ml @ 42 mls/hr UNSCH PRN IV For Phosphorus < 2.5 mg/dL; Start 08/30/17 at 08:15; Stop 08/31/17 at 13:02; Status DC Succinylcholine Chloride (Quelicin Inj) 100 mg ONCE ONCE IV PUSH ; Start 08/29 at 00:00; Stop 08/29/17 at 00:01; Status DC Vancomycin HCl 1500 mg/Sodium Chloride 515 ml @ 257.5 mls/ hr ONCE ONCE IV Last administered on 09/16/17 17:07; Start 09/16/17 at 15:00; Stop 09/16/17 at 16:59; Status DC Vancomycin HCl 2000 mg/Sodium Chloride 520 ml @ 250 mls/hr ONCE ONCE IV Last administered on 09/13/17 05:52; Start 09/13/17 at 04:00; Stop 09/13/17 at 06:04 ; Status DC Vancomycin HCl 2500 mg/Sodium Chloride 525 ml @ 250 mls/hr ONCE ONCE IV Last administered on 09/14/17 12:29; Start 09/14/17 at 12:00; Stop 09/14/17 at 14:05 ; Status DC Water (Free Water) 300 ml Q4HR G-TUBE Last administered on 10/02/17 05:15; Start 09/18/17 at 12:00 A/P Problem List: (1) Intracranial hemorrhage ICD Code: I62.9 - Nontraumatic intracranial hemorrhage, unspecified Status: Acute Assessment and Plan A/P Acute encephalopathy - improving. Left Thalamic Hemorrhage, with IV extension Intracerebral Hemorrhage - Repeat CT of the head showed improving bleed - Neurosurgery following. Continue neurochecks. Repeat head CT for any decline in neuro status. - Continue rehabilitation efforts with PT, OT, speech - On Seroquel to control agitated delirium. Roxicodone as needed for pain Anemia likely due to chronic disease. H/H fairly stable. will monitor periodically. Healthcare associated pneumonia: Previously treated with antibiotics. - 09/25;Patient recurrent fever and new leukocytosis. His chest x-ray shows stable left lower lobe consolidation. Previously completed treatment with antibiotics. Last antibiotics dose was about a week ago for Klebsiella. - Given worsening cough, fever, and leukocytosis. Continue Ceftin for a 7 day course. -afebrile since yesterday;-will continue to monitor temps. -consider ID evaluation with persistent fever. UTI: Urine is growing pseudomonas. Continue cefuroxime as above. Follow urine cultures Respiratory failure s/p trach - Tolerating T piece - CT of the chest 09/13/17 -LLL infiltrate. Repeat chest x-ray on 09/26/17 shows stable left lower lobe consolidation - DuoNeb every 6 hours scheduled and when necessary -Patient had angioedema, source unclear and was seen by ENT. He was treated with steroids. Per ENT, expect slow improvement. This is resolving. -Appreciate pulmonology following for trach management Hyperglycemia - persistent. - Continue Levemir 20 units SQ q12h - Continue sliding scale insulin with Accu-Cheks. - hemoglobin A1c 9.1. Hypertension - Intermittent hypertension now well controlled - Continue clonidine, amlodipine and propranolol - Continue hydralazine. Nutrition status: - Status post PEG tube continue tube feeds - Having bowel movements - Continue Free water 300mL per tube q4h - Pepcid per tube Acute kidney injury, most likely has CK D per nephrology: Renal function stabilized. - Follow I/oh Physical deconditioning/right sided hemiparesis - OOB to stretcher chair daily - PT/OT following PROPH: - SCD's. Pepcid for GI prophylaxis Discharge Planning dc planning to SNF. Zoë Rivas MD Oct 02, 2017 10:46
[2017-10-02] MEDS: CEFUROXIME AXETIL 500 MG TAB PO SCH ×2 (11:01→21:17)
[2017-10-02] MEDS: FAMOTIDINE 20 MG TAB NG SCH ×2 (11:01→21:18)
[2017-10-02] MEDS: INSULIN DETEMIR 100 UNITS/ML VIAL SQ SCH ×2 (11:02→21:17)
--- NOTE | 2017-10-02 17:29 | HHI.PR ---
Subjective Remarks 46 YOAA male with ICH,RF,Trach Moves left ext Looks around no fever Objective Vital Signs Vital Signs Date Time Temp Pulse Resp B/P (MAP) Pulse Ox O2 Delivery O2 Flow Rate FiO2 10/02/17 16:50 98 T-piece 6.00 28 10/02/17 12:11 99.2 80 20 168/89 (115) 92 10/02/17 12:00 78 10/02/17 08:54 98 T-piece 28 10/02/17 08:11 98.8 78 20 131/70 (90) 95 10/02/17 08:00 80 10/02/17 08:00 T-Piece 5.00 28 10/02/17 06:08 98.0 81 20 167/85 (112) 98 10/02/17 03:53 79 10/02/17 00:00 98.5 83 20 138/82 (100) 100 10/01/17 23:46 81 10/01/17 22:19 99.0 84 18 152/85 (107) 100 10/01/17 20:30 T-Piece 5.00 28 10/01/17 19:44 77 I/O 10/01/17 10/01/17 10/01/17 10/02/17 10/02/17 10/02/17 07:00 15:00 23:00 07:00 15:00 23:00 Intake Total 0 ml 0 ml 600 ml Output Total 850 ml 700 ml 1700 ml Balance -850 ml -700 ml -1700 ml 600 ml Intake Oral 0 ml 0 ml Other 600 ml Output Urine Total 850 ml 700 ml 1700 ml # Bowel Movements 1 2 Result Diagram: 10/02/17 0719 09/29/17 0707 Objective Remarks GENERAL: WBWN AA male, NAD SKIN: Warm and dry. HEAD: Normocephalic. EYES: No scleral icterus. No injection or drainage. NECK: Supple, trachea midline. No JVD or lymphadenopathy. trach CARDIOVASCULAR: Regular rate and rhythm without murmurs, gallops, or rubs. RESPIRATORY: Breath sounds equal bilaterally. No accessory muscle use. GASTROINTESTINAL: Abdomen soft, non-tender, nondistended. MUSCULOSKELETAL: No cyanosis, or edema. BACK: Nontender without obvious deformity. No CVA tenderness. A/P Assessment and Plan Resp failure S/P Trach HTN ICH, right side flacid Pn PLAN Trach care Aerosol nebs Cont Abx Tube feeding Jesus Villar MD Oct 02, 2017 17:29
[2017-10-02] MEDS: CHLORHEXIDINE 0.12% (ORAL KIT) 15 ML CUP MT SCH (21:16)
[2017-10-02] MEDS: ATORVASTATIN 40 MG TAB DOBHOFF SCH (21:18)
[2017-10-03] VITALS (10 sets, daily range): BP systolic 121–165; BP diastolic 72–86; PULSE 77–89; RESP 17–20; TEMP 98–99.1; O2SAT 93–99
[2017-10-03] MEDS: FREE WATER G-TUBE SCH ×6 (00:12→20:00)
[2017-10-03] MEDS: PROPRANOLOL HCL 40 MG TAB G-TUBE SCH ×4 (00:13→18:01)
[2017-10-03] MEDS: INSULIN ASPART SUPPLEMENTAL SCALE SQ SCH ×4 (00:23→18:00)
[2017-10-03] MEDS: CHLORHEXIDINE GLUCONATE 2 % 1 PACK (2 CLOTHS) TOP SCH (03:55)
[2017-10-03] MEDS: QUEtiapine FUMARATE 25 MG TAB G-TUBE SCH ×3 (05:20→22:06)
[2017-10-03] MEDS: hydrALAZINE HCL 100 MG TAB G-TUBE SCH ×3 (05:20→22:05)
[2017-10-03] MEDS: cloNIDine HCL 0.3 MG TAB G-TUBE SCH ×3 (05:20→22:05)
[2017-10-03] MEDS: CHLORHEXIDINE 0.12% (ORAL KIT) 15 ML CUP MT SCH ×2 (08:00→20:00)
[2017-10-03] MEDS: FLUTICASONE PROPIONATE 50 MCG/ACT 16 GM NASAL SPRAY EACH NARE SCH (09:00)
[2017-10-03] MEDS: CEFUROXIME AXETIL 500 MG TAB PO SCH (09:03)
[2017-10-03] MEDS: INSULIN DETEMIR 100 UNITS/ML VIAL SQ SCH ×2 (09:03→22:00)
[2017-10-03] MEDS: DOCUSATE SODIUM 50 MG/SENNA 8.6 MG TAB G-TUBE SCH ×2 (09:03→22:05)
[2017-10-03] MEDS: POLYETHYLENE GLYCOL 17 GM PKG G-TUBE SCH ×2 (09:03→22:06)
[2017-10-03] MEDS: FAMOTIDINE 20 MG TAB NG SCH ×2 (09:03→22:05)
--- NOTE | 2017-10-03 11:01 | HHI.PR ---
Subjective Remarks in no acute distress. afebrile. clinically the same. Objective Vitals Vital Signs Date Time Temp Pulse Resp B/P (MAP) Pulse Ox O2 Delivery O2 Flow Rate FiO2 10/03/17 08:30 98 T-piece 6.00 28 10/03/17 08:00 98.3 81 17 137/72 (93) 96 10/03/17 04:58 98.4 79 20 145/81 (102) 99 10/03/17 04:04 78 10/03/17 00:12 89 10/03/17 00:00 98.7 89 20 121/74 (90) 99 10/02/17 20:15 T-Piece 5.00 28 10/02/17 20:11 90 10/02/17 20:00 98.2 89 20 124/75 (91) 98 10/02/17 18:11 98.5 96 20 175/68 (103) 93 10/02/17 16:50 98 T-piece 6.00 28 10/02/17 12:11 99.2 80 20 168/89 (115) 92 10/02/17 12:00 78 I/O 10/02/17 10/02/17 10/02/17 10/03/17 10/03/17 10/03/17 07:00 15:00 23:00 07:00 15:00 23:00 Intake Total 0 ml 1700 ml Output Total 1700 ml 2000 ml 950 ml Balance -1700 ml -300 ml -950 ml Intake Oral 0 ml 0 ml Tube Feeding 1100 ml Other 600 ml Output Urine Total 1700 ml 2000 ml 950 ml # Bowel Movements 1 Result Diagram: 10/02/17 0719 09/29/17 0707 Imaging Last Impressions Chest X-Ray 09/26/17 0000 Signed Impressions: Service Date/Time: Tuesday, September 26, 2017 09:45 - CONCLUSION: Stable examination with left basilar consolidation/effusion. Reyes Guzman MD Maxillofacial CT 09/16/17 0000 Signed Impressions: Service Date/Time: September 01:03 - CONCLUSION: 1. Evidence of acute pansinusitis. 2. Opacification of multiple bilateral mastoid air cells most characteristic of mastoiditis. 3. Mildly prominent cervical chain nodes which may be reactive. Angelo Conn MD Upper Extremity Ultrasound 09/15/17 0000 Signed Impressions: Service Date/Time: Friday, September 15, 2017 17:14 - CONCLUSION: Occlusive thrombus within the left cephalic vein and nonocclusive thrombus within the right cephalic vein. Ric Jack MD Lower Extremity Ultrasound 09/15/17 0000 Signed Impressions: Service Date/Time: Friday, September 15, 2017 16:58 - CONCLUSION: No evidence of DVT within the lower extremities. Ric Jack MD Head CT 09/13/17 0800 Signed Impressions: Service Date/Time: Wednesday, September 13, 2017 09:17 - CONCLUSION: 1. Resolving left basal ganglia hematoma Natan Lagos MD Chest CT 09/13/17 0000 Signed Impressions: Service Date/Time: Wednesday, September 13, 2017 09:28 - CONCLUSION: 1. Bibasilar and left lingular dependent atelectatic changes. Lungs are otherwise clear. 2. Tracheostomy tube with the tip probably positioned above the connie. 3. Compensated cardiomegaly. Reyes Guzman MD Abdomen/Pelvis CT 09/13/17 0000 Signed Impressions: Service Date/Time: Wednesday, September 13, 2017 09:28 - CONCLUSION: 1. There is some stranding in the retroperitoneal perivascular tissues around the distal aorta extending into the bifurcation with a regional borderline lymph nodes. Findings are characteristic of a nonspecific inflammatory process. Findings could represent early retroperitoneal fibrosis.. 2. Urinary bladder is decompressed with some mural thickening in pericystic inflammatory changes possibly representing a chronic cystitis. Nondependent air could be associated with a recent catheterization/instrumentation. 3. Small umbilical and right inguinal hernias only contain fat. 4. Bilateral dependent basilar and left lingular atelectatic changes. Heart size is borderline prominent. 5. Otherwise , bowel is intact without obstruction to explain abdominal distention Reyes Guzman MD Abdomen X-Ray 09/10/17 0600 Signed Impressions: Service Date/Time: Sunday, September 10, 2017 03:56 - CONCLUSION: No significant abnormality is identified. There is mild distention of the colon but there are no findings to suggest bowel obstruction or significant ileus. Ignacio Underwood MD Liver Ultrasound 09/07/17 0000 Signed Impressions: Service Date/Time: Thursday, September 07, 2017 12:37 - CONCLUSION: 1. Unremarkable sonographic appearance of the liver. No evidence for hepatic volume loss or intrahepatic ductal dilatation. 2. No sonographic evidence for cholelithiasis or acute cholecystitis. 3. Mild increased right renal echogenicity may reflect medical renal disease. 4. Small bilateral pleural effusions. 5. Pancreas and inferior pole of the right kidney are obscured by bowel gas and therefore not evaluated. Darrell Robles MD Renal Ultrasound 08/31/17 0000 Signed Impressions: Service Date/Time: Thursday, August 31, 2017 17:42 - CONCLUSION: 1. No evidence of hydronephrosis on either side. 2. Solitary linear echogenic focus in the upper pole parenchyma of the right kidney has similar features to prior examination in January 2017 and possibly represents a calcification. David Snell MD Neck CTA 08/28/177 Signed Impressions: Service Date/Time: Tuesday, August 29, 2017 00:13 - CONCLUSION: Negative carotid CTA. David Snell MD Head CTA [id number] Signed Impressions: Service Date/Time: Tuesday, August 29, 2017 00:13 - CONCLUSION: 1. No evidence of vessel truncation or aneurysm. 2. No abnormal vessels in the region of the large left thalamic hemorrhage. David Snell MD Objective Remarks GENERAL: in no apparent distress. Neck; trach in place. CARDIOVASCULAR: Regular rate and irregular rhythm without murmurs, gallops, or rubs. RESPIRATORY: Clear to auscultation. Breath sounds equal bilaterally. No wheezes , rales, or rhonchi. GASTROINTESTINAL: Abdomen soft, non-tender, nondistended. Normal, active bowel sounds-PEG in place. MUSCULOSKELETAL: Extremities without clubbing, cyanosis, or edema. NEURO: awake. Procedures Tracheostomy and PEG placement Medications and IVs Inpatient Medications Acetaminophen (Tylenol) 650 mg Q6H PRN G-TUBE PAIN 1-5 AND/OR FEVER >101F Last administered on 09/29/17 01:17; Start 09/25/17 at 12:45 Albuterol Sulfate (Albuterol Neb) 2.5 mg Q2HR NEB PRN NEB sob/wheeze Last administered on 09/29/17 00:45; Start 09/25/17 at 13:30 Albuterol/ Ipratropium (Duoneb Neb) 1 ampule Q6HR NEB INH Last administered on 09/21/17 08:25; Start 09/17/17 at 16:00; Stop 09/21/17 at 15:59; Status DC Amlodipine Besylate (Norvasc) 10 mg DAILY G-TUBE Last administered on 09:03; Start 09/26/17 at 09:00 Atorvastatin Calcium (Lipitor) 40 mg HS DOBHOFF Last administered on 21:18; Start 09/25/17 at 21:00 Bisacodyl (Dulcolax Supp) 10 mg DAILY RECTAL Last administered on 08/31/17 11 :58; Start 08/31/17 at 12:00; Stop 09/25/17 at 09:30; Status DC Calcium Acetate (Phoslo) 667 mg TID PO Last administered on 09/08/17 10:38; Start 08/31/17 at 18:00; Stop 09/08/17 at 11:02; Status DC Cefuroxime Axetil (Ceftin) 500 mg Q12HR PO Last administered on 10/03/17 09: 03; Start 09/26/17 at 11:15; Stop 10/03/17 at 11:14 Chlorhexidine Gluconate (Chlorhexidine 2% Cloth) 3 pack 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 SEE LABEL COMMENTS; Start 09/05/17 at 23:00; Stop 09/08/17 at 22:59; Status DC Chlorhexidine Gluconate (Peridex 0.12% Liq) 15 ml BID@08,20 MT Last administered on 10/03/17 08:00; Start 08/29/17 at 08:00 Clonidine (Catapres) 0.3 mg Q8HR G-TUBE Last administered on 10/03/17 05:20; Start 09/25/17 at 14:00 Dantrolene Sodium (Dantrium Inj) 70 mg ONCE ONCE IV Last administered on 03:55; Start 09/13/17 at 03:00; Stop 09/13/17 at 03:01; Status DC Desmopressin Acetate (Ddavp Tae Spr) 1 spray ONCE ONCE EACH NARE Last administered on 09/07/17 15:00; Start 09/07/17 at 15:00; Stop 09/07/17 at 15 :01; Status DC Dexamethasone Sodium Phosphate (Decadron Inj) 6 mg Q12HR IV PUSH Last administered on 09/20/17 09:26; Start 09/17/17 at 21:00; Stop 09/20/17 at 20: 59; Status DC Dexmedetomidine HCl 50 ml @ 29.9 mls/hr TITRATE IV ; Start 08/30/17 at 14:15; Stop 08/30/17 at 14:46; Status DC Dexmedetomidine HCl 1000 mcg/ Sodium Chloride 250 ml @ 29.9 mls/hr TITRATE IV Last administered on 08/30/17 17:58; Start 08/30/17 at 16:45; Stop 08/31/17 at 06:14; Status DC Dexmedetomidine HCl 200 mcg/ Sodium Chloride 50 ml @ 29.9 mls/hr TITRATE IV Last administered on 08/30/17 15:27; Start 08/30/17 at 15:00; Stop 08/30/17 at 16:42; Status DC Dextrose 1,000 ml @ 42 mls/hr [id number] IV Last administered on 09/20/17 09:25 ; Start 09/19/17 at 08:45; Stop 09/20/17 at 11:39; Status DC Dextrose (D50w (Vial) Inj) 25 ml UNSCH PRN IV PUSH HYPOGLYCEMIA-SEE COMMENTS; Start 09/18/17 at 12:00 Diphenhydramine HCl (Benadryl Inj) 25 mg Q6H IV PUSH Last administered on 08:06; Start 09/15/17 at 15:00; Stop 09/18/17 at 14:59; Status DC Etomidate (Amidate Inj) 20 mg ONCE ONCE IVP ; Start 08/29/17 at 00:00; Stop 08/29/17 at 00:01; Status DC Famotidine (Pepcid) 20 mg BID NG Last administered on 10/03/17 09:03; Start 09/24/17 at 09:30 Fentanyl Citrate 250 ml @ 5 mls/hr TITRATE PRN IV SEDATION Last administered on 09/11/17 06:14; Start 08/29/17 at 00:45; Stop 09/11/17 at 10:20; Status DC Fluticasone Propionate (Flonase Tae Spr) 2 spray DAILY EACH NARE Last administered on 10/03/17 09:00; Start 09/05/17 at 17:00 Gelatin (Gelfoam 12 Mm/7 Mm Top) 1 foam Q2HR PRN TOPICAL if still bleeding from peg Last administered on 09/08/17 08:00; Start 09/07/17 at 19:45 Glucagon (Glucagon Inj) 1 mg UNSCH PRN OTHER HYPOGLYCEMIA-SEE COMMENTS; Start 09/25/17 at 09:30 Haloperidol Lactate (Haldol Inj) 5 mg Q4H PRN IV agitation Last administered on 09/12/17 23:04; Start 08/31/17 at 11:00; Stop 09/25/17 at 09:30; Status DC Heparin Sodium (Porcine) (Heparin Inj) 5,000 units Q12HR SQ Last administered on 09/28/17 08:20; Start 09/11/17 at 21:00; Status Future Hold Hydralazine HCl (Apresoline Inj) 10 mg Q30M PRN IV PUSH sbp > 160 Last administered on 09/19/17 09:08; Start 08/30/17 at 08:15 Hydralazine HCl (Apresoline) 100 mg Q8HR G-TUBE Last administered on 05:20; Start 09/25/17 at 14:00 Hydrochlorothiazide (Hydrodiuril) 25 mg DAILY PO Last administered on 10:37; Start 08/29/17 at 09:00; Stop 09/08/17 at 11:02; Status DC Insulin Aspart (NovoLOG SUPPLEMENTAL SCALE) 1 Q6H SQ Last administered on 10/03 05:20; Start 09/25/17 at 12:00 Insulin Detemir (Levemir Inj) 20 units Q12H SQ Last administered on 10/03/17 09:03; Start 09/19/17 at 10:00 Insulin Human Regular (NovoLIN R SUPPLEMENTAL SCALE) 1 Q4HR SQ Last administered on 09/25/17 04:09; Start 09/18/17 at 12:00; Stop 09/25/17 at 09: 28; Status DC Insulin Human Regular (NovoLIN R INJ) See Protocol Table ... 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 SQ SEE PROTOCOL TABLE; Start 09/05/17 at 23:00; Stop 09/08/17 at 22:59; Status DC Labetalol HCl (Trandate Inj) 10 mg Q20M PRN IV PUSH SBP>140, DBP>90 Last administered on 09/19/17 02:16; Start 08/29/17 at 00:45 Labetalol HCl (Trandate) 300 mg NOW ONCE PEG Last administered on 09/17/17 04 :23; Start 09/17/17 at 04:15; Stop 09/17/17 at 04:16; Status DC Lactated Ringer's 1,000 ml @ 30 mls/hr Q24H PRN IV SEE LABEL COMMENTS; Start 09/05/17 at 23:00; Stop 09/08/17 at 22:59; Status DC Lactulose (Lactulose Liq) 30 ml BID PO Last administered on 09/04/17 19:57; Start 08/31/17 at 12:00; Stop 09/25/17 at 09:30; Status DC Lidocaine HCl (Lidocaine Pf 2% Neb) 1 ml Q6HR NEB PRN NEB cough/bronchial irritation; Start 09/16/17 at 11:30 Lisinopril (Prinivil) 40 mg DAILY PO Last administered on 09/04/17 09:07; Start 08/29/17 at 09:00; Stop 09/04/17 at 12:18; Status DC Lorazepam (Ativan Inj) 1 mg ONCE ONCE IV PUSH Last administered on 09/13/17 02:57; Start 09/13/17 at 02:45; Stop 09/13/17 at 02:46; Status DC Lorazepam (Ativan) 1 mg Q12H PO Last administered on 09/09/17 20:27; Start 09/07/17 at 19:00; Stop 09/11/17 at 10:25; Status DC Magnesium Hydroxide (Milk Of Magnesia Liq) 30 ml Q12H PRN PO Mild constipation ; Start 08/29/17 at 00:45; Stop 08/31/17 at 11:08; Status DC Magnesium Citrate (Citroma Liq) 300 ml ONCE ONCE PO Last administered on 08/31 11:57; Start 08/31/17 at 12:00; Stop 08/31/17 at 12:01; Status DC Magnesium Oxide (Mag-Ox) 800 mg UNSCH PRN PO For Magnesium 1.2 - 1.6 mg/dL; Start 08/30/17 at 08:15; Stop 08/31/17 at 13:02; Status DC Magnesium Sulfate 2 gm/Sodium Chloride 100 ml @ 50 mls/hr UNSCH PRN IV For Magnesium 1.2 - 1.6 mg/dL; Start 08/30/17 at 08:15; Stop 08/31/17 at 13:02; Status DC Magnesium Sulfate 4 gm/Sodium Chloride 100 ml @ 50 mls/hr UNSCH PRN IV For Magnesium 0.9 - 1.1 mg/dL; Start 08/30/17 at 08:15; Stop 08/31/17 at 13:02; Status DC Magnesium Sulfate/ Dextrose 100 ml @ 100 mls/hr Q1H IV Last administered on 12:22; Start 08/31/17 at 12:00; Stop 08/31/17 at 13:00; Status DC Metoclopramide HCl (Reglan Inj) 5 mg Q8HR IV PUSH Last administered on 22:55; Start 09/09/17 at 22:00; Stop 09/11/17 at 10:25; Status DC Metoprolol Tartrate (Lopressor) 25 mg Q8H G-TUBE ; Start 09/25/17 at 13:00; Stop 09/25/17 at 13:00; Status DC Midazolam HCl (Versed Inj) 10 mg ONCE ONCE IV PUSH ; Start 09/08/17 at 13:00; Stop 09/08/17 at 13:41; Status DC Miscellaneous Information 1 [id number] Last administered on 08/29/17 01:00; Start 08/29/17 at 00:45 Modafinil (Provigil) 200 mg DAILY PO Last administered on 09/12/17 09:07; Start 09/11/17 at 12:00; Stop 09/25/17 at 09:30; Status DC Morphine Sulfate (Morphine Inj) 2 mg Q2H PRN IV PUSH breakthru pain; Start at 16:30 Nicardipine HCl 25 mg/Sodium Chloride 250 ml @ 50 mls/hr TITRATE PRN IV Blood pressure management Last administered on 09/17/17 04:57; Start 09/13/17 at 02: 45; Stop 09/17/17 at 12:47; Status DC Nicardipine HCl 50 mg/Sodium Chloride 500 ml @ 50 mls/hr TITRATE PRN IV BLOOD PRESSURE MANAGEMENT Last administered on 09/05/17 22:00; Start 09/02/17 at 21 :15; Stop 09/11/17 at 10:25; Status DC Ondansetron HCl (Zofran Inj) 4 mg Q6H PRN IV PUSH NAUSEA OR VOMITING Last administered on 09/11/17 14:18; Start 08/29/17 at 00:45 Oxycodone HCl (Roxicodone Intensol Liq) 5 mg Q6H PRN G-TUBE pain 6-10 Last administered on 09/25/17 20:48; Start 09/25/17 at 15:00 Pantoprazole Sodium (Protonix Inj) 40 mg DAILY IV PUSH Last administered on 09:15; Start 08/29/17 at 09:00; Stop 09/11/17 at 10:25; Status DC Pharmacy Profile Note 0 ml @ 0 mls/hr UNSCH OTHER ; Start 09/13/17 at 02:45; Stop 09/17/17 at 10:11; Status DC Piperacillin Sod/ Tazobactam Sod 50 ml @ 100 mls/hr Q6H IV Last administered on 09/19/17 20:26; Start 09/13/17 at 03:00; Stop 09/19/17 at 23:00; Status DC Polyethylene Glycol (Miralax) 17 gm BID G-TUBE Last administered on 10/03/17 09:03; Start 09/25/17 at 21:00 Potassium Chloride 30 meq/ Sodium Chloride 115 ml @ 38.333 mls/ hr ONCE ONCE IV-CENTRAL Last administered on 09/03/17 13:36; Start 09/03/17 at 14:00; Stop 09/03/17 at 16:59; Status DC Potassium Phosphate (K-Phos) 2,000 mg UNSCH PRN PO/TUBE SEE LABEL COMMENTS; Start 08/30/17 at 08:15; Stop 08/31/17 at 13:02; Status DC Potassium Phosphate 30 mmol/ Sodium Chloride 260 ml @ 42 mls/hr UNSCH PRN IV SEE LABEL COMMENTS; Start 08/30/17 at 08:15; Stop 08/31/17 at 13:02; Status DC Potassium Bicarb/ Potassium Chloride (K-Lyte Cl Eff) 50 meq ONCE ONCE PO Last administered on 09/25/17 05:25; Start 09/25/17 at 04:30; Stop 09/25/17 at 04:31; Status DC Potassium Chloride 100 ml @ 50 mls/hr Q2H IV Last administered on 09/15/17 10 :22; Start 09/15/17 at 08:15; Stop 09/15/17 at 12:14; Status DC Potassium Chloride (KCl Powder) 40 meq ONCE ONCE PEG Last administered on 12:15; Start 09/08/17 at 12:15; Stop 09/08/17 at 12:21; Status DC Potassium Chloride (KCl) 40 meq ONCE ONCE PO ; Start 09/08/17 at 09:00; Stop 09/08/17 at 12:05; Status DC Povidone Iodine (Betadine 5% Antisepsis Kit) 1 applic 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 EACH NARE SEE LABEL COMMENTS; Start 09/05/17 at 23:00; Stop 09/08/17 at 22:59; Status DC Propofol 100 ml @ 14.352 mls/ hr TITRATE PRN IV SEDATION Last administered on 09/10/17 09:59; Start 08/31/17 at 00:30; Stop 09/11/17 at 10:20; Status DC Propranolol HCl (Inderal) 40 mg Q6HR G-TUBE Last administered on 10/03/17 05: 20; Start 09/25/17 at 12:00 Quetiapine Fumarate (SEROquel) 50 mg Q8HR G-TUBE Last administered on 05:20; Start 09/25/17 at 14:00 Rocuronium [place] (Zemuron Inj) 100 mg BOLUS ONCE IV ; Start 09/08/17 at 13: 00; Stop 09/08/17 at 13:44; Status DC Senna/Docusate Sodium (Melina-Colace) 1 tab BID G-TUBE Last administered on 10/03 09:03; Start 09/25/17 at 21:00 Sennosides (Senokot) 17.2 mg Q12H PRN PO Moderate constipation; Start at 00:45; Stop 08/31/17 at 11:08; Status DC Silver Nitrate/ Potassium Nitrate (Silver Nitrate Applicators) 1 appl ONCE ONCE TOPICAL Last administered on 09/07/17 10:15; Start 09/07/17 at 10:15; Stop 09/07/17 at 10:47; Status DC Sodium Polystyrene Sulfonate (Kayexalate Liq) 30 gm Q2HR PO Last administered on 09/21/17 19:53; Start 09/21/17 at 16:00; Stop 09/21/17 at 21:00; Status DC Sodium Chloride 250 ml @ 15 mls/hr ONCE ONCE IV ; Start 09/28/17 at 10:15; Stop 09/28/17 at 16:53; Status DC Sodium Chloride (NS Flush) 2 ml UNSCH PRN IVF FLUSH AFTER USING IV ACCESS Last administered on 09/28/17 20:47; Start 08/29/17 at 00:00 Sodium Chloride 38.5 meq/Sterile Water 1,009.625 ml @ 42 mls/hr Q24H IV Last administered on 09/25/17 06:01; Start 09/20/17 at 13:00; Stop 09/25/17 at 09 :24; Status DC Sodium Phosphate 30 mmol/Sodium Chloride 250 ml @ 42 mls/hr UNSCH PRN IV For Phosphorus < 2.5 mg/dL; Start 08/30/17 at 08:15; Stop 08/31/17 at 13:02; Status DC Succinylcholine Chloride (Quelicin Inj) 100 mg ONCE ONCE IV PUSH ; Start 08/29 at 00:00; Stop 08/29/17 at 00:01; Status DC Vancomycin HCl 1500 mg/Sodium Chloride 515 ml @ 257.5 mls/ hr ONCE ONCE IV Last administered on 09/16/17 17:07; Start 09/16/17 at 15:00; Stop 09/16/17 at 16:59; Status DC Vancomycin HCl 2000 mg/Sodium Chloride 520 ml @ 250 mls/hr ONCE ONCE IV Last administered on 09/13/17 05:52; Start 09/13/17 at 04:00; Stop 09/13/17 at 06:04 ; Status DC Vancomycin HCl 2500 mg/Sodium Chloride 525 ml @ 250 mls/hr ONCE ONCE IV Last administered on 09/14/17 12:29; Start 09/14/17 at 12:00; Stop 09/14/17 at 14:05 ; Status DC Water (Free Water) 300 ml Q4HR G-TUBE Last administered on 10/03/17 08:00; Start 09/18/17 at 12:00 A/P Problem List: (1) Intracranial hemorrhage ICD Code: I62.9 - Nontraumatic intracranial hemorrhage, unspecified Status: Acute Assessment and Plan A/P Acute encephalopathy - improving. Left Thalamic Hemorrhage, with IV extension Intracerebral Hemorrhage - Repeat CT of the head showed improving bleed - Neurosurgery following. Continue neurochecks. Repeat head CT for any decline in neuro status. - Continue rehabilitation efforts with PT, OT, speech - On Seroquel to control agitated delirium. Roxicodone as needed for pain Anemia likely due to chronic disease. H/H fairly stable. will monitor periodically. Healthcare associated pneumonia: Previously treated with antibiotics. - 09/25;Patient recurrent fever and new leukocytosis. His chest x-ray shows stable left lower lobe consolidation. Previously completed treatment with antibiotics. Last antibiotics dose was about a week ago for Klebsiella. - Given worsening cough, fever, and leukocytosis. Continue Ceftin for a 7 day course; will finish the course of antibiotic today. -will continue to monitor temps. UTI: Urine is growing pseudomonas. Continue antibiotic as above. Respiratory failure s/p trach - Tolerating T piece - CT of the chest 09/13/17 -LLL infiltrate. Repeat chest x-ray on 09/26/17 shows stable left lower lobe consolidation - DuoNeb every 6 hours scheduled and when necessary -Patient had angioedema, source unclear and was seen by ENT. He was treated with steroids. Per ENT, expect slow improvement. This is resolving. -Appreciate pulmonology following for trach management Hyperglycemia - persistent. - Continue Levemir 20 units SQ q12h - Continue sliding scale insulin with Accu-Cheks. - hemoglobin A1c 9.1. Hypertension - Intermittent hypertension now well controlled - Continue clonidine, amlodipine and propranolol - Continue hydralazine. Nutrition status: - Status post PEG tube continue tube feeds - Having bowel movements - Continue Free water 300mL per tube q4h - Pepcid per tube Acute kidney injury, most likely has CKD per nephrology: Renal function stabilized. - monitor renal function periodically. Physical deconditioning/right sided hemiparesis - OOB to stretcher chair daily - PT/OT following PROPH: - SCD's. Pepcid for GI prophylaxis Discharge Planning dc planning to SNF. Zoë Rivas MD Oct 03, 2017 11:01
--- NOTE | 2017-10-03 15:53 | HHI.PR ---
Subjective Remarks 46 YOAA male with ICH,RF,Trach Moves left ext Looks around no fever No new complait Objective Vital Signs Vital Signs Date Time Temp Pulse Resp B/P (MAP) Pulse Ox O2 Delivery O2 Flow Rate FiO2 10/03/17 12:00 80 10/03/17 12:00 98.0 79 18 165/80 (108) 93 10/03/17 11:18 80 10/03/17 09:10 T-Piece 28 10/03/17 08:30 98 T-piece 6.00 28 10/03/17 08:00 98.3 81 17 137/72 (93) 96 10/03/17 04:58 98.4 79 20 145/81 (102) 99 10/03/17 04:04 78 10/03/17 00:12 89 10/03/17 00:00 98.7 89 20 121/74 (90) 99 10/02/17 20:15 T-Piece 5.00 28 10/02/17 20:11 90 10/02/17 20:00 98.2 89 20 124/75 (91) 98 10/02/17 18:11 98.5 96 20 175/68 (103) 93 10/02/17 16:50 98 T-piece 6.00 28 I/O 10/02/17 10/02/17 10/02/17 10/03/17 10/03/17 10/03/17 07:00 15:00 23:00 07:00 15:00 23:00 Intake Total 0 ml 1700 ml Output Total 1700 ml 2000 ml 950 ml 650 ml Balance -1700 ml -300 ml -950 ml -650 ml Intake Oral 0 ml 0 ml Tube Feeding 1100 ml Other 600 ml Output Urine Total 1700 ml 2000 ml 950 ml 650 ml # Bowel Movements 1 0 Result Diagram: 10/02/17 0719 09/29/17 0707 Objective Remarks GENERAL: WBWN AA male, NAD SKIN: Warm and dry. HEAD: Normocephalic. EYES: No scleral icterus. No injection or drainage. NECK: Supple, trachea midline. No JVD or lymphadenopathy. trach CARDIOVASCULAR: Regular rate and rhythm without murmurs, gallops, or rubs. RESPIRATORY: Breath sounds equal bilaterally. No accessory muscle use. GASTROINTESTINAL: Abdomen soft, non-tender, nondistended. MUSCULOSKELETAL: No cyanosis, or edema. BACK: Nontender without obvious deformity. No CVA tenderness. A/P Assessment and Plan Resp failure S/P Trach HTN ICH, right side flacid Pn PLAN Trach care Aerosol nebs Cont Abx Tube feeding Jesus Villar MD Oct 03, 2017 15:53
[2017-10-03] MEDS: ATORVASTATIN 40 MG TAB DOBHOFF SCH (22:05)
[2017-10-04] VITALS (11 sets, daily range): BP systolic 127–163; BP diastolic 79–94; PULSE 83–97; RESP 17–20; TEMP 98.6–99.9; O2SAT 94–99
[2017-10-04] MEDS: PROPRANOLOL HCL 40 MG TAB G-TUBE SCH ×5 (01:16→23:15)
[2017-10-04] MEDS: CHLORHEXIDINE GLUCONATE 2 % 1 PACK (2 CLOTHS) TOP SCH (04:00)
[2017-10-04] MEDS: FREE WATER G-TUBE SCH ×7 (04:00→23:15)
[2017-10-04] MEDS: cloNIDine HCL 0.3 MG TAB G-TUBE SCH ×3 (06:00→21:53)
[2017-10-04] MEDS: INSULIN ASPART SUPPLEMENTAL SCALE SQ SCH ×5 (06:00→23:16)
[2017-10-04] MEDS: hydrALAZINE HCL 100 MG TAB G-TUBE SCH ×3 (06:53→21:53)
[2017-10-04] MEDS: QUEtiapine FUMARATE 25 MG TAB G-TUBE SCH ×3 (06:53→21:53)
[2017-10-04] MEDS: CHLORHEXIDINE 0.12% (ORAL KIT) 15 ML CUP MT SCH ×2 (08:00→21:55)
[2017-10-04] MEDS: DOCUSATE SODIUM 50 MG/SENNA 8.6 MG TAB G-TUBE SCH ×2 (08:41→21:00)
[2017-10-04] MEDS: FAMOTIDINE 20 MG TAB NG SCH ×2 (08:41→21:53)
[2017-10-04] MEDS: POLYETHYLENE GLYCOL 17 GM PKG G-TUBE SCH ×2 (08:42→21:00)
[2017-10-04 08:59] LABS: AUTOMATED NEUTROPHIL # 5.6 TH/MM3 (1.8-7.7); BASOPHIL % 0.6 % (0.0-2.0); EOSINOPHIL # 0.3 TH/MM3 (0-0.4); EOSINOPHIL % 3.9 % (0.0-4.0); HEMATOCRIT 24.1 % (39.0-51.0); HEMOGLOBIN 7.9 GM/DL (13.0-17.0); LYMPH % 14.2 % (9.0-44.0); LYMPHOCYTE # 1.1 TH/MM3 (1.0-4.8); MEAN CORPUSCULAR HEMOGLOBIN 26.5 PG (27.0-34.0); MEAN CORPUSCULAR HGB CONC 32.7 % (32.0-36.0); MEAN PLATELET VOLUME 8.2 FL (7.0-11.0); MONO % 7.1 % (0.0-8.0); MONOCYTE # 0.5 TH/MM3 (0-0.9); NEUT % 74.2 % (16.0-70.0); PLATELET COUNT 327 TH/MM3 (150-450); RED BLOOD COUNT 2.98 MIL/MM3 (4.50-5.90); RED CELL DISTRIBUTION WIDTH 14.5 % (11.6-17.2); WHITE BLOOD COUNT 7.6 TH/MM3 (4.0-11.0)
[2017-10-04 09:21] LABS: BICARBONATE 33.5 MEQ/L (21.0-32.0); CALCIUM 9.1 MG/DL (8.5-10.1); CREATININE 0.89 MG/DL (0.60-1.30)
[2017-10-04] MEDS: FLUTICASONE PROPIONATE 50 MCG/ACT 16 GM NASAL SPRAY EACH NARE SCH (09:23)
[2017-10-04] MEDS: INSULIN DETEMIR 100 UNITS/ML VIAL SQ SCH ×2 (09:57→21:54)
--- NOTE | 2017-10-04 11:01 | HHI.PR ---
Subjective Remarks in no acute distress. clinically no change. Objective Vitals Vital Signs Date Time Temp Pulse Resp B/P (MAP) Pulse Ox O2 Delivery O2 Flow Rate FiO2 10/04/17 08:08 99.9 87 18 148/79 (102) 94 10/04/17 07:47 T-Piece 6.00 28 10/04/17 07:47 86 10/04/17 04:00 85 10/04/17 04:00 98.7 86 17 137/81 (99) 98 10/04/17 00:20 96 T-piece 6.00 28 10/04/17 00:00 99.2 85 17 127/83 (98) 97 10/04/17 00:00 85 10/03/17 20:30 T-Piece 6.00 28 10/03/17 20:00 99.1 82 17 157/86 (109) 96 10/03/17 20:00 77 10/03/17 16:00 83 10/03/17 16:00 98.0 81 17 147/76 (99) 95 10/03/17 12:00 80 10/03/17 12:00 98.0 79 18 165/80 (108) 93 10/03/17 11:18 80 I/O 10/03/17 10/03/17 10/03/17 10/04/17 10/04/17 10/04/17 07:00 15:00 23:00 07:00 15:00 23:00 Intake Total 600 ml 900 ml Output Total 950 ml 650 ml 1400 ml 600 ml Balance -950 ml -50 ml -500 ml -600 ml Tube Feeding 600 ml Other 600 ml 300 ml Output Urine Total 950 ml 650 ml 1400 ml 600 ml # Voids 2 # Bowel Movements 0 0 Result Diagram: 10/04/1719 10/04/17 0819 Imaging Last Impressions Chest X-Ray 09/26/17 0000 Signed Impressions: Service Date/Time: Tuesday, September 26, 2017 09:45 - CONCLUSION: Stable examination with left basilar consolidation/effusion. Reyes Guzman MD Maxillofacial CT 09/16/17 0000 Signed Impressions: Service Date/Time: September 01:03 - CONCLUSION: 1. Evidence of acute pansinusitis. 2. Opacification of multiple bilateral mastoid air cells most characteristic of mastoiditis. 3. Mildly prominent cervical chain nodes which may be reactive. Angelo Conn MD Upper Extremity Ultrasound 09/15/17 0000 Signed Impressions: Service Date/Time: Friday, September 15, 2017 17:14 - CONCLUSION: Occlusive thrombus within the left cephalic vein and nonocclusive thrombus within the right cephalic vein. Ric Jack MD Lower Extremity Ultrasound 09/15/17 0000 Signed Impressions: Service Date/Time: Friday, September 15, 2017 16:58 - CONCLUSION: No evidence of DVT within the lower extremities. Ric Jack MD Head CT 09/13/17 0800 Signed Impressions: Service Date/Time: Wednesday, September 13, 2017 09:17 - CONCLUSION: 1. Resolving left basal ganglia hematoma Natan Lagos MD Chest CT 09/13/17 0000 Signed Impressions: Service Date/Time: Wednesday, September 13, 2017 09:28 - CONCLUSION: 1. Bibasilar and left lingular dependent atelectatic changes. Lungs are otherwise clear. 2. Tracheostomy tube with the tip probably positioned above the connie. 3. Compensated cardiomegaly. Reyes Guzman MD Abdomen/Pelvis CT 09/13/17 0000 Signed Impressions: Service Date/Time: Wednesday, September 13, 2017 09:28 - CONCLUSION: 1. There is some stranding in the retroperitoneal perivascular tissues around the distal aorta extending into the bifurcation with a regional borderline lymph nodes. Findings are characteristic of a nonspecific inflammatory process. Findings could represent early retroperitoneal fibrosis.. 2. Urinary bladder is decompressed with some mural thickening in pericystic inflammatory changes possibly representing a chronic cystitis. Nondependent air could be associated with a recent catheterization/instrumentation. 3. Small umbilical and right inguinal hernias only contain fat. 4. Bilateral dependent basilar and left lingular atelectatic changes. Heart size is borderline prominent. 5. Otherwise , bowel is intact without obstruction to explain abdominal distention Reyes Guzman MD Abdomen X-Ray 09/10/17 0600 Signed Impressions: Service Date/Time: Sunday, September 10, 2017 03:56 - CONCLUSION: No significant abnormality is identified. There is mild distention of the colon but there are no findings to suggest bowel obstruction or significant ileus. Ignacio Underwood MD Liver Ultrasound 09/07/17 0000 Signed Impressions: Service Date/Time: Thursday, September 07, 2017 12:37 - CONCLUSION: 1. Unremarkable sonographic appearance of the liver. No evidence for hepatic volume loss or intrahepatic ductal dilatation. 2. No sonographic evidence for cholelithiasis or acute cholecystitis. 3. Mild increased right renal echogenicity may reflect medical renal disease. 4. Small bilateral pleural effusions. 5. Pancreas and inferior pole of the right kidney are obscured by bowel gas and therefore not evaluated. Darrell Robles MD Renal Ultrasound 08/31/17 0000 Signed Impressions: Service Date/Time: Thursday, August 31, 2017 17:42 - CONCLUSION: 1. No evidence of hydronephrosis on either side. 2. Solitary linear echogenic focus in the upper pole parenchyma of the right kidney has similar features to prior examination in January 2017 and possibly represents a calcification. David Snell MD Neck CTA 08/28/17 2347 Signed Impressions: Service Date/Time: Tuesday, August 29, 2017 00:13 - CONCLUSION: Negative carotid CTA. David Snell MD Head CTA 08/28/17 2347 Signed Impressions: Service Date/Time: Tuesday, August 29, 2017 00:13 - CONCLUSION: 1. No evidence of vessel truncation or aneurysm. 2. No abnormal vessels in the region of the large left thalamic hemorrhage. David Snell MD Objective Remarks GENERAL: in no apparent distress. Neck; trach in place. CARDIOVASCULAR: Regular rate and irregular rhythm without murmurs, gallops, or rubs. RESPIRATORY: Clear to auscultation. Breath sounds equal bilaterally. No wheezes , rales, or rhonchi. GASTROINTESTINAL: Abdomen soft, non-tender, nondistended. Normal, active bowel sounds-PEG in place. MUSCULOSKELETAL: Extremities without clubbing, cyanosis, or edema. NEURO: awake. Procedures Tracheostomy and PEG placement Medications and IVs Inpatient Medications Acetaminophen (Tylenol) 650 mg Q6H PRN G-TUBE PAIN 1-5 AND/OR FEVER >101F Last administered on 09/29/17 01:17; Start 09/25/17 at 12:45 Albuterol Sulfate (Albuterol Neb) 2.5 mg Q2HR NEB PRN NEB sob/wheeze Last administered on 09/29/17 00:45; Start 09/25/17 at 13:30 Albuterol/ Ipratropium (Duoneb Neb) 1 ampule Q6HR NEB INH Last administered on 09/21/17 08:25; Start 09/17/17 at 16:00; Stop 09/21/17 at 15:59; Status DC Amlodipine Besylate (Norvasc) 10 mg DAILY G-TUBE Last administered on 08:41; Start 09/26/17 at 09:00 Atorvastatin Calcium (Lipitor) 40 mg HS DOBHOFF Last administered on 22:05; Start 09/25/17 at 21:00 Bisacodyl (Dulcolax Supp) 10 mg DAILY RECTAL Last administered on 08/31/17 11 :58; Start 08/31/17 at 12:00; Stop 09/25/17 at 09:30; Status DC Calcium Acetate (Phoslo) 667 mg TID PO Last administered on 09/08/17 10:38; Start 08/31/17 at 18:00; Stop 09/08/17 at 11:02; Status DC Cefuroxime Axetil (Ceftin) 500 mg Q12HR PO Last administered on 10/03/17 09: 03; Start 09/26/17 at 11:15; Stop 10/03/17 at 11:14; Status DC Chlorhexidine Gluconate (Chlorhexidine 2% Cloth) 3 pack 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 SEWING 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 TOPICAL SEE LABEL COMMENTS; Start 09/05/17 at 23:00; Stop 09/08/17 at 22:59; Status DC Chlorhexidine Gluconate (Peridex 0.12% Liq) 15 ml BID@08,20 MT Last administered on 10/04/17 08:00; Start 08/29/17 at 08:00 Clonidine (Catapres) 0.3 mg Q8HR G-TUBE Last administered on 10/04/17 06:00; Start 09/25/17 at 14:00 Dantrolene Sodium (Dantrium Inj) 70 mg ONCE ONCE IV Last administered on 03:55; Start 09/13/17 at 03:00; Stop 09/13/17 at 03:01; Status DC Desmopressin Acetate (Ddavp Tae Spr) 1 spray ONCE ONCE EACH NARE Last administered on 09/07/17 15:00; Start 09/07/17 at 15:00; Stop 09/07/17 at 15 :01; Status DC Dexamethasone Sodium Phosphate (Decadron Inj) 6 mg Q12HR IV PUSH Last administered on 09/20/17 09:26; Start 09/17/17 at 21:00; Stop 09/20/17 at 20: 59; Status DC Dexmedetomidine HCl 50 ml @ 29.9 mls/hr TITRATE IV ; Start 08/30/17 at 14:15; Stop 08/30/17 at 14:46; Status DC Dexmedetomidine HCl 1000 mcg/ Sodium Chloride 250 ml @ 29.9 mls/hr TITRATE IV Last administered on 08/30/17 17:58; Start 08/30/17 at 16:45; Stop 08/31/17 at 06:14; Status DC Dexmedetomidine HCl 200 mcg/ Sodium Chloride 50 ml @ 29.9 mls/hr TITRATE IV Last administered on 08/30/17 15:27; Start 08/30/17 at 15:00; Stop 08/30/17 at 16:42; Status DC Dextrose 1,000 ml @ 42 mls/hr [id number] IV Last administered on 09/20/17 09:25 ; Start 09/19/17 at 08:45; Stop 09/20/17 at 11:39; Status DC Dextrose (D50w (Vial) Inj) 25 ml UNSCH PRN IV PUSH HYPOGLYCEMIA-SEE COMMENTS; Start 09/18/17 at 12:00 Diphenhydramine HCl (Benadryl Inj) 25 mg Q6H IV PUSH Last administered on 08:06; Start 09/15/17 at 15:00; Stop 09/18/17 at 14:59; Status DC Etomidate (Amidate Inj) 20 mg ONCE ONCE IVP ; Start 08/29/17 at 00:00; Stop 08/29/17 at 00:01; Status DC Famotidine (Pepcid) 20 mg BID NG Last administered on 10/04/17 08:41; Start 09/24/17 at 09:30 Fentanyl Citrate 250 ml @ 5 mls/hr TITRATE PRN IV SEDATION Last administered on 09/11/17 06:14; Start 08/29/17 at 00:45; Stop 09/11/17 at 10:20; Status DC Fluticasone Propionate (Flonase Tae Spr) 2 spray DAILY EACH NARE Last administered on 10/04/17 09:23; Start 09/05/17 at 17:00 Gelatin (Gelfoam 12 Mm/7 Mm Top) 1 foam Q2HR PRN TOPICAL if still bleeding from peg Last administered on 09/08/17 08:00; Start 09/07/17 at 19:45 Glucagon (Glucagon Inj) 1 mg UNSCH PRN OTHER HYPOGLYCEMIA-SEE COMMENTS; Start 09/25/17 at 09:30 Haloperidol Lactate (Haldol Inj) 5 mg Q4H PRN IV agitation Last administered on 09/12/17 23:04; Start 08/31/17 at 11:00; Stop 09/25/17 at 09:30; Status DC Heparin Sodium (Porcine) (Heparin Inj) 5,000 units Q12HR SQ Last administered on 09/28/17 08:20; Start 09/11/17 at 21:00; Status Future Hold Hydralazine HCl (Apresoline Inj) 10 mg Q30M PRN IV PUSH sbp > 160 Last administered on 09/19/17 09:08; Start 08/30/17 at 08:15 Hydralazine HCl (Apresoline) 100 mg Q8HR G-TUBE Last administered on 06:53; Start 09/25/17 at 14:00 Hydrochlorothiazide (Hydrodiuril) 25 mg DAILY PO Last administered on 10:37; Start 08/29/17 at 09:00; Stop 09/08/17 at 11:02; Status DC Insulin Aspart (NovoLOG SUPPLEMENTAL SCALE) 1 Q6H SQ Last administered on 10/04 06:00; Start 09/25/17 at 12:00 Insulin Detemir (Levemir Inj) 20 units Q12H SQ Last administered on 10/04/17 09:57; Start 09/19/17 at 10:00 Insulin Human Regular (NovoLIN R SUPPLEMENTAL SCALE) 1 Q4HR SQ Last administered on 09/25/17 04:09; Start 09/18/17 at 12:00; Stop 09/25/17 at 09: 28; Status DC Insulin Human Regular (NovoLIN R INJ) See Protocol Table ... OVERLOCK SEWING 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 PRN SQ SEE PROTOCOL TABLE; Start 09/05/17 at 23:00; Stop 09/08/17 at 22:59; Status DC Labetalol HCl (Trandate Inj) 10 mg Q20M PRN IV PUSH SBP>140, DBP>90 Last administered on 09/19/17 02:16; Start 08/29/17 at 00:45 Labetalol HCl (Trandate) 300 mg NOW ONCE PEG Last administered on 09/17/17 04 :23; Start 09/17/17 at 04:15; Stop 09/17/17 at 04:16; Status DC Lactated Ringer's 1,000 ml @ 30 mls/hr Q24H PRN IV SEE LABEL COMMENTS; Start 09/05/17 at 23:00; Stop 09/08/17 at 22:59; Status DC Lactulose (Lactulose Liq) 30 ml BID PO Last administered on 09/04/17 19:57; Start 08/31/17 at 12:00; Stop 09/25/17 at 09:30; Status DC Lidocaine HCl (Lidocaine Pf 2% Neb) 1 ml Q6HR NEB PRN NEB cough/bronchial irritation; Start 09/16/17 at 11:30 Lisinopril (Prinivil) 40 mg DAILY PO Last administered on 09/04/17 09:07; Start 08/29/17 at 09:00; Stop 09/04/17 at 12:18; Status DC Lorazepam (Ativan Inj) 1 mg ONCE ONCE IV PUSH Last administered on 09/13/17 02:57; Start 09/13/17 at 02:45; Stop 09/13/17 at 02:46; Status DC Lorazepam (Ativan) 1 mg Q12H PO Last administered on 09/09/17 20:27; Start 09/07/17 at 19:00; Stop 09/11/17 at 10:25; Status DC Magnesium Hydroxide (Milk Of Magnesia Liq) 30 ml Q12H PRN PO Mild constipation ; Start 08/29/17 at 00:45; Stop 08/31/17 at 11:08; Status DC Magnesium Citrate (Citroma Liq) 300 ml ONCE ONCE PO Last administered on 11/21 /17at 11:57; Start 08/31/17 at 12:00; Stop 08/31/17 at 12:01; Status DC Magnesium Oxide (Mag-Ox) 800 mg UNSCH PRN PO For Magnesium 1.2 - 1.6 mg/dL; Start 08/30/17 at 08:15; Stop 08/31/17 at 13:02; Status DC Magnesium Sulfate 2 gm/Sodium Chloride 100 ml @ 50 mls/hr UNSCH PRN IV For Magnesium 1.2 - 1.6 mg/dL; Start 08/30/17 at 08:15; Stop 08/31/17 at 13:02; Status DC Magnesium Sulfate 4 gm/Sodium Chloride 100 ml @ 50 mls/hr UNSCH PRN IV For Magnesium 0.9 - 1.1 mg/dL; Start 08/30/17 at 08:15; Stop 08/31/17 at 13:02; Status DC Magnesium Sulfate/ Dextrose 100 ml @ 100 mls/hr Q1H IV Last administered on 12:22; Start 08/31/17 at 12:00; Stop 08/31/17 at 13:00; Status DC Metoclopramide HCl (Reglan Inj) 5 mg Q8HR IV PUSH Last administered on 22:55; Start 09/09/17 at 22:00; Stop 09/11/17 at 10:25; Status DC Metoprolol Tartrate (Lopressor) 25 mg Q8H G-TUBE ; Start 09/25/17 at 13:00; Stop 09/25/17 at 13:00; Status DC Midazolam HCl (Versed Inj) 10 mg ONCE ONCE IV PUSH ; Start 09/08/17 at 13:00; Stop 09/08/17 at 13:41; Status DC Miscellaneous Information 1 [id number] Last administered on 08/29/17 01:00; Start 08/29/17 at 00:45 Modafinil (Provigil) 200 mg DAILY PO Last administered on 09/12/17 09:07; Start 09/11/17 at 12:00; Stop 09/25/17 at 09:30; Status DC Morphine Sulfate (Morphine Inj) 2 mg Q2H PRN IV PUSH breakthru pain; Start at 16:30 Nicardipine HCl 25 mg/Sodium Chloride 250 ml @ 50 mls/hr TITRATE PRN IV Blood pressure management Last administered on 09/17/17 04:57; Start 09/13/17 at 02: 45; Stop 09/17/17 at 12:47; Status DC Nicardipine HCl 50 mg/Sodium Chloride 500 ml @ 50 mls/hr TITRATE PRN IV BLOOD PRESSURE MANAGEMENT Last administered on 09/05/17 22:00; Start 09/02/17 at 21 :15; Stop 09/11/17 at 10:25; Status DC Ondansetron HCl (Zofran Inj) 4 mg Q6H PRN IV PUSH NAUSEA OR VOMITING Last administered on 09/11/17 14:18; Start 08/29/17 at 00:45 Oxycodone HCl (Roxicodone Intensol Liq) 5 mg Q6H PRN G-TUBE pain 6-10 Last administered on 09/25/17 20:48; Start 09/25/17 at 15:00 Pantoprazole Sodium (Protonix Inj) 40 mg DAILY IV PUSH Last administered on 09:15; Start 08/29/17 at 09:00; Stop 09/11/17 at 10:25; Status DC Pharmacy Profile Note 0 ml @ 0 mls/hr UNSCH OTHER ; Start 09/13/17 at 02:45; Stop 09/17/17 at 10:11; Status DC Piperacillin Sod/ Tazobactam Sod 50 ml @ 100 mls/hr Q6H IV Last administered on 09/19/17 20:26; Start 09/13/17 at 03:00; Stop 09/19/17 at 23:00; Status DC Polyethylene Glycol (Miralax) 17 gm BID G-TUBE Last administered on 10/03/17 22:06; Start 09/25/17 at 21:00 Potassium Chloride 30 meq/ Sodium Chloride 115 ml @ 38.333 mls/ hr ONCE ONCE IV-CENTRAL Last administered on 09/03/17 13:36; Start 09/03/17 at 14:00; Stop 09/03/17 at 16:59; Status DC Potassium Phosphate (K-Phos) 2,000 mg UNSCH PRN PO/TUBE SEE LABEL COMMENTS; Start 08/30/17 at 08:15; Stop 08/31/17 at 13:02; Status DC Potassium Phosphate 30 mmol/ Sodium Chloride 260 ml @ 42 mls/hr UNSCH PRN IV SEE LABEL COMMENTS; Start 08/30/17 at 08:15; Stop 08/31/17 at 13:02; Status DC Potassium Bicarb/ Potassium Chloride (K-Lyte Cl Eff) 50 meq ONCE ONCE PO Last administered on 09/25/17 05:25; Start 09/25/17 at 04:30; Stop 09/25/17 at 04:31; Status DC Potassium Chloride 100 ml @ 50 mls/hr Q2H IV Last administered on 09/15/17 10 :22; Start 09/15/17 at 08:15; Stop 09/15/17 at 12:14; Status DC Potassium Chloride (KCl Powder) 40 meq ONCE ONCE PEG Last administered on 12:15; Start 09/08/17 at 12:15; Stop 09/08/17 at 12:21; Status DC Potassium Chloride (KCl) 40 meq ONCE ONCE PO ; Start 09/08/17 at 09:00; Stop 09/08/17 at 12:05; Status DC Povidone Iodine (Betadine 5% Antisepsis Kit) 1 applic OVERLOCK SEWING 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 PRN EACH NARE SEE LABEL COMMENTS; Start 09/05/17 at 23:00; Stop 09/08/17 at 22:59; Status DC Propofol 100 ml @ 14.352 mls/ hr TITRATE PRN IV SEDATION Last administered on 09/10/17 09:59; Start 08/31/17 at 00:30; Stop 09/11/17 at 10:20; Status DC Propranolol HCl (Inderal) 40 mg Q6HR G-TUBE Last administered on 10/04/17 06: 52; Start 09/25/17 at 12:00 Quetiapine Fumarate (SEROquel) 50 mg Q8HR G-TUBE Last administered on 06:53; Start 09/25/17 at 14:00 Rocuronium [place] (Zemuron Inj) 100 mg BOLUS ONCE IV ; Start 09/08/17 at 13: 00; Stop 09/08/17 at 13:44; Status DC Senna/Docusate Sodium (Melina-Colace) 1 tab BID G-TUBE Last administered on 10/03 22:05; Start 09/25/17 at 21:00 Sennosides (Senokot) 17.2 mg Q12H PRN PO Moderate constipation; Start at 00:45; Stop 08/31/17 at 11:08; Status DC Silver Nitrate/ Potassium Nitrate (Silver Nitrate Applicators) 1 appl ONCE ONCE TOPICAL Last administered on 09/07/17 10:15; Start 09/07/17 at 10:15; Stop 09/07/17 at 10:47; Status DC Sodium Polystyrene Sulfonate (Kayexalate Liq) 30 gm Q2HR PO Last administered on 09/21/17 19:53; Start 09/21/17 at 16:00; Stop 09/21/17 at 21:00; Status DC Sodium Chloride 250 ml @ 15 mls/hr ONCE ONCE IV ; Start 09/28/17 at 10:15; Stop 09/28/17 at 16:53; Status DC Sodium Chloride (NS Flush) 2 ml UNSCH PRN IVF FLUSH AFTER USING IV ACCESS Last administered on 09/28/17 20:47; Start 08/29/17 at 00:00 Sodium Chloride 38.5 meq/Sterile Water 1,009.625 ml @ 42 mls/hr Q24H IV Last administered on 09/25/17 06:01; Start 09/20/17 at 13:00; Stop 09/25/17 at 09 :24; Status DC Sodium Phosphate 30 mmol/Sodium Chloride 250 ml @ 42 mls/hr UNSCH PRN IV For Phosphorus < 2.5 mg/dL; Start 08/30/17 at 08:15; Stop 08/31/17 at 13:02; Status DC Succinylcholine Chloride (Quelicin Inj) 100 mg ONCE ONCE IV PUSH ; Start 08/29 at 00:00; Stop 08/29/17 at 00:01; Status DC Vancomycin HCl 1500 mg/Sodium Chloride 515 ml @ 257.5 mls/ hr ONCE ONCE IV Last administered on 09/16/17 17:07; Start 09/16/17 at 15:00; Stop 09/16/17 at 16:59; Status DC Vancomycin HCl 2000 mg/Sodium Chloride 520 ml @ 250 mls/hr ONCE ONCE IV Last administered on 09/13/17 05:52; Start 09/13/17 at 04:00; Stop 09/13/17 at 06:04 ; Status DC Vancomycin HCl 2500 mg/Sodium Chloride 525 ml @ 250 mls/hr ONCE ONCE IV Last administered on 09/14/17 12:29; Start 09/14/17 at 12:00; Stop 09/14/17 at 14:05 ; Status DC Water (Free Water) 300 ml Q4HR G-TUBE Last administered on 10/04/17 08:00; Start 09/18/17 at 12:00 A/P Problem List: (1) Intracranial hemorrhage ICD Code: I62.9 - Nontraumatic intracranial hemorrhage, unspecified Status: Acute Assessment and Plan A/P Acute encephalopathy - improving. Left Thalamic Hemorrhage Intracerebral Hemorrhage - Repeat CT of the head showed improving bleed - Neurosurgery follow-up appreciated; stable for dc to SNF per neurosurgery. - Continue rehabilitation efforts with PT, OT, speech - On Seroquel to control agitated delirium. Roxicodone as needed for pain Anemia likely due to chronic disease. H/H fairly stable. will monitor periodically. Healthcare associated pneumonia finished the course of antibiotic. UTI: treated. Respiratory failure s/p trach - Tolerating T piece - CT of the chest 09/13/17 -LLL infiltrate. Repeat chest x-ray on 09/26/17 shows stable left lower lobe consolidation - continue neb treatment. -Patient had angioedema, source unclear and was seen by ENT. He was treated with steroids. Per ENT, expect slow improvement. This is resolving. -Appreciate pulmonology following for trach management Hyperglycemia - persistent. - Continue Levemir 20 units SQ q12h - Continue sliding scale insulin with Accu-Cheks. - hemoglobin A1c 9.1. Hypertension - Intermittent hypertension now well controlled - Continue clonidine, amlodipine and propranolol - Continue hydralazine. Nutrition status: - Status post PEG tube continue tube feeds - Having bowel movements - Continue Free water Acute kidney injury, most likely has CKD per nephrology: Renal function stabilized. - monitor renal function periodically. Physical deconditioning/right sided hemiparesis - OOB to stretcher chair daily - PT/OT following PROPH: - SCD's. Pepcid for GI prophylaxis Discharge Planning dc planning to SNF in progress. Zoë Rivas MD Oct 04, 2017 11:01
--- NOTE | 2017-10-04 14:33 | HHI.PR ---
Subjective Remarks 46 YOAA male with ICH,RF,Trach Moves left ext Looks around no fever has thick secretions, requires suction Objective Vital Signs Vital Signs Date Time Temp Pulse Resp B/P (MAP) Pulse Ox O2 Delivery O2 Flow Rate FiO2 10/04/17 12: 98.8 91 18 141/81 (101) 94 10/04/17 08:08 99.9 87 18 148/79 (102) 94 10/04/17 07:47 T-Piece 6.00 28 10/04/17 07:47 86 10/04/17 04:00 85 10/04/17 04:00 98.7 86 17 137/81 (99) 98 10/04/17 00:20 96 T-piece 6.00 28 10/04/17 00:00 99.2 85 17 127/83 (98) 97 10/04/17 00:00 85 10/03/17 20:30 T-Piece 6.00 28 10/03/17 20:00 99.1 82 17 157/86 (109) 96 10/03/17 20:00 77 10/03/17 16:00 83 10/03/17 16:00 98.0 81 17 147/76 (99) 95 I/O 10/03/17 10/03/17 10/03/17 10/04/17 10/04/17 10/04/17 07:00 15:00 23:00 07:00 15:00 23:00 Intake Total 600 ml 900 ml Output Total 950 ml 650 ml 1400 ml 600 ml Balance -950 ml -50 ml -500 ml -600 ml Tube Feeding 600 ml Other 600 ml 300 ml Output Urine Total 950 ml 650 ml 1400 ml 600 ml # Voids 2 # Bowel Movements 0 0 Result Diagram: 10/04/1781810/04/17818 Objective Remarks GENERAL: WBWN AA male, NAD SKIN: Warm and dry. HEAD: Normocephalic. EYES: No scleral icterus. No injection or drainage. NECK: Supple, trachea midline. No JVD or lymphadenopathy. trach CARDIOVASCULAR: Regular rate and rhythm without murmurs, gallops, or rubs. RESPIRATORY: Breath sounds equal bilaterally. No accessory muscle use. GASTROINTESTINAL: Abdomen soft, non-tender, nondistended. MUSCULOSKELETAL: No cyanosis, or edema. BACK: Nontender without obvious deformity. No CVA tenderness. A/P Assessment and Plan Resp failure S/P Trach HTN ICH, right side flacid Pn PLAN Trach care Aerosol nebs Cont Abx Tube feeding Suction prn Jesus Villar MD Oct 04, 2017 14:33
[2017-10-04] MEDS: ATORVASTATIN 40 MG TAB DOBHOFF SCH (21:53)
[2017-10-05] VITALS (11 sets, daily range): BP systolic 130–148; BP diastolic 68–87; PULSE 78–87; RESP 18–20; TEMP 97.5–100.5; O2SAT 97–99
[2017-10-05] MEDS: CHLORHEXIDINE GLUCONATE 2 % 1 PACK (2 CLOTHS) TOP SCH (03:35)
[2017-10-05] MEDS: FREE WATER G-TUBE SCH ×6 (04:00→23:35)
[2017-10-05] MEDS: hydrALAZINE HCL 100 MG TAB G-TUBE SCH ×3 (05:38→20:13)
[2017-10-05] MEDS: QUEtiapine FUMARATE 25 MG TAB G-TUBE SCH ×3 (05:38→20:13)
[2017-10-05] MEDS: cloNIDine HCL 0.3 MG TAB G-TUBE SCH ×3 (05:38→20:14)
[2017-10-05] MEDS: PROPRANOLOL HCL 40 MG TAB G-TUBE SCH ×4 (05:38→23:35)
[2017-10-05] MEDS: INSULIN ASPART SUPPLEMENTAL SCALE SQ SCH ×4 (05:57→23:36)
[2017-10-05] MEDS: CHLORHEXIDINE 0.12% (ORAL KIT) 15 ML CUP MT SCH ×2 (08:00→20:11)
[2017-10-05] MEDS: POLYETHYLENE GLYCOL 17 GM PKG G-TUBE SCH ×2 (09:00→20:14)
[2017-10-05] MEDS: FLUTICASONE PROPIONATE 50 MCG/ACT 16 GM NASAL SPRAY EACH NARE SCH (09:00)
[2017-10-05] MEDS: INSULIN DETEMIR 100 UNITS/ML VIAL SQ SCH ×2 (10:00→21:59)
[2017-10-05] MEDS: DOCUSATE SODIUM 50 MG/SENNA 8.6 MG TAB G-TUBE SCH ×2 (10:54→20:15)
[2017-10-05] MEDS: FAMOTIDINE 20 MG TAB NG SCH ×2 (10:54→20:13)
--- NOTE | 2017-10-05 11:04 | HHI.PR ---
Subjective Remarks in no acute distress. afebrile. Objective Vitals Vital Signs Date Time Temp Pulse Resp B/P (MAP) Pulse Ox O2 Delivery O2 Flow Rate FiO2 10/05/17 09:55 99 T-piece 28 10/05/17 08:00 97.6 79 18 137/75 (95) 98 10/05/17 04:00 81 10/05/17 04:00 98.6 80 20 141/72 (95) 98 10/05/17 03:57 T-Piece 6.00 28 10/05/17 00:00 82 10/05/17 00:00 T-Piece 6.00 28 10/05/17 00:00 97.5 81 18 136/77 (96) 97 10/04/17 21:20 T-Piece 6.00 28 10/04/17 20:26 95 T-piece 6.00 28 10/04/17 20:00 85 10/04/17 20:00 98.9 83 20 163/94 (117) 94 10/04/17 16:35 98.6 86 20 141/79 (99) 99 10/04/17 16:23 87 10/04/17 12:17 98.8 91 18 141/81 (101) 94 10/04/17 12:13 97 I/O 10/04/17 10/04/17 10/04/17 10/05/17 10/05/17 10/05/17 07:00 15:00 23:00 07:00 15:00 23:00 Intake Total 1600 ml 1600 ml Output Total 600 ml 500 ml 900 ml Balance -600 ml 1100 ml 700 ml Intake Oral 0 ml Tube Feeding 600 ml 700 ml Tube Irrigant 100 ml 900 ml Other 900 ml Output Urine Total 600 ml 500 ml 900 ml # Voids 2 # Bowel Movements 0 1 1 Result Diagram: 10/04/17 0819 10/04/17 0819 Imaging Last Impressions Chest X-Ray 09/26/17 0000 Signed Impressions: Service Date/Time: Tuesday, September 26, 2017 09:45 - CONCLUSION: Stable examination with left basilar consolidation/effusion. Reyes Guzman MD Maxillofacial CT 09/16/17 0000 Signed Impressions: Service Date/Time: September 01:03 - CONCLUSION: 1. Evidence of acute pansinusitis. 2. Opacification of multiple bilateral mastoid air cells most characteristic of mastoiditis. 3. Mildly prominent cervical chain nodes which may be reactive. Angelo Conn MD Upper Extremity Ultrasound 09/15/17 0000 Signed Impressions: Service Date/Time: Friday, September 15, 2017 17:14 - CONCLUSION: Occlusive thrombus within the left cephalic vein and nonocclusive thrombus within the right cephalic vein. Ric Jack MD Lower Extremity Ultrasound 09/15/17 0000 Signed Impressions: Service Date/Time: Friday, September 15, 2017 16:58 - CONCLUSION: No evidence of DVT within the lower extremities. Ric Jack MD Head CT 09/13/17 0800 Signed Impressions: Service Date/Time: Wednesday, September 13, 2017 09:17 - CONCLUSION: 1. Resolving left basal ganglia hematoma Natan Lagos MD Chest CT 09/13/17 0000 Signed Impressions: Service Date/Time: Wednesday, September 13, 2017 09:28 - CONCLUSION: 1. Bibasilar and left lingular dependent atelectatic changes. Lungs are otherwise clear. 2. Tracheostomy tube with the tip probably positioned above the connie. 3. Compensated cardiomegaly. Reyes Guzman MD Abdomen/Pelvis CT 09/13/17 0000 Signed Impressions: Service Date/Time: Wednesday, September 13, 2017 09:28 - CONCLUSION: 1. There is some stranding in the retroperitoneal perivascular tissues around the distal aorta extending into the bifurcation with a regional borderline lymph nodes. Findings are characteristic of a nonspecific inflammatory process. Findings could represent early retroperitoneal fibrosis.. 2. Urinary bladder is decompressed with some mural thickening in pericystic inflammatory changes possibly representing a chronic cystitis. Nondependent air could be associated with a recent catheterization/instrumentation. 3. Small umbilical and right inguinal hernias only contain fat. 4. Bilateral dependent basilar and left lingular atelectatic changes. Heart size is borderline prominent. 5. Otherwise , bowel is intact without obstruction to explain abdominal distention Reyes Guzman MD Abdomen X-Ray 09/10/17 0600 Signed Impressions: Service Date/Time: Sunday, September 10, 2017 03:56 - CONCLUSION: No significant abnormality is identified. There is mild distention of the colon but there are no findings to suggest bowel obstruction or significant ileus. Ignacio Underwood MD Liver Ultrasound 09/07/17 0000 Signed Impressions: Service Date/Time: Thursday, September 07, 2017 12:37 - CONCLUSION: 1. Unremarkable sonographic appearance of the liver. No evidence for hepatic volume loss or intrahepatic ductal dilatation. 2. No sonographic evidence for cholelithiasis or acute cholecystitis. 3. Mild increased right renal echogenicity may reflect medical renal disease. 4. Small bilateral pleural effusions. 5. Pancreas and inferior pole of the right kidney are obscured by bowel gas and therefore not evaluated. Darrell Robles MD Renal Ultrasound 08/31/17 0000 Signed Impressions: Service Date/Time: Thursday, August 31, 2017 17:42 - CONCLUSION: 1. No evidence of hydronephrosis on either side. 2. Solitary linear echogenic focus in the upper pole parenchyma of the right kidney has similar features to prior examination in January 2017 and possibly represents a calcification. David Snell MD Neck CTA 08/28/177 Signed Impressions: Service Date/Time: Tuesday, August 29, 2017 00:13 - CONCLUSION: Negative carotid CTA. David Snell MD Head CTA 08/28/17 2347 Signed Impressions: Service Date/Time: Tuesday, August 29, 2017 00:13 - CONCLUSION: 1. No evidence of vessel truncation or aneurysm. 2. No abnormal vessels in the region of the large left thalamic hemorrhage. David Snell MD Objective Remarks GENERAL: in no apparent distress. Neck; trach in place. CARDIOVASCULAR: Regular rate and irregular rhythm without murmurs, gallops, or rubs. RESPIRATORY: Clear to auscultation. Breath sounds equal bilaterally. No wheezes , rales, or rhonchi. GASTROINTESTINAL: Abdomen soft, non-tender, nondistended. Normal, active bowel sounds-PEG in place. MUSCULOSKELETAL: Extremities without clubbing, cyanosis, or edema. NEURO: awake. Procedures Tracheostomy and PEG placement Medications and IVs Inpatient Medications Acetaminophen (Tylenol) 650 mg Q6H PRN G-TUBE PAIN 1-5 AND/OR FEVER >101F Last administered on 09/29/17t 01:17; Start 09/25/17 at 12:45 Albuterol Sulfate (Albuterol Neb) 2.5 mg Q2HR NEB PRN NEB sob/wheeze Last administered on 09/29/17 00:45; Start 09/25/17 at 13:30 Albuterol/ Ipratropium (Duoneb Neb) 1 ampule Q6HR NEB INH Last administered on 09/21/17 08:25; Start 09/17/17 at 16:00; Stop 09/21/17 at 15:59; Status DC Amlodipine Besylate (Norvasc) 10 mg DAILY G-TUBE Last administered on 10:54; Start 09/26/17 at 09:00 Atorvastatin Calcium (Lipitor) 40 mg HS DOBHOFF Last administered on 21:53; Start 09/25/17 at 21:00 Bisacodyl (Dulcolax Supp) 10 mg DAILY RECTAL Last administered on 08/31/17 11 :58; Start 08/31/17 at 12:00; Stop 09/25/17 at 09:30; Status DC Calcium Acetate (Phoslo) 667 mg TID PO Last administered on 09/08/17 10:38; Start 08/31/17 at 18:00; Stop 09/08/17 at 11:02; Status DC Cefuroxime Axetil (Ceftin) 500 mg Q12HR PO Last administered on 10/03/17 09: 03; Start 09/26/17 at 11:15; Stop 10/03/17 at 11:14; Status DC Chlorhexidine Gluconate (Chlorhexidine 2% Cloth) 3 pack CARPENTER FORM PRN TOPICAL SEE LABEL COMMENTS; Start 09/05/17 at 23:00; Stop 09/08/17 at 22:59; Status DC Chlorhexidine Gluconate (Peridex 0.12% Liq) 15 ml BID@08,20 MT Last administered on 10/05/17 08:00; Start 08/29/17 at 08:00 Clonidine (Catapres) 0.3 mg Q8HR G-TUBE Last administered on 10/05/17 05:38; Start 09/25/17 at 14:00 Dantrolene Sodium (Dantrium Inj) 70 mg ONCE ONCE IV Last administered on 03:55; Start 09/13/17 at 03:00; Stop 09/13/17 at 03:01; Status DC Desmopressin Acetate (Ddavp Tae Spr) 1 spray ONCE ONCE EACH NARE Last administered on 09/07/17 15:00; Start 09/07/17 at 15:00; Stop 09/07/17 at 15 :01; Status DC Dexamethasone Sodium Phosphate (Decadron Inj) 6 mg Q12HR IV PUSH Last administered on 09/20/17 09:26; Start 09/17/17 at 21:00; Stop 09/20/17 at 20: 59; Status DC Dexmedetomidine HCl 50 ml @ 29.9 mls/hr TITRATE IV ; Start 08/30/17 at 14:15; Stop 08/30/17 at 14:46; Status DC Dexmedetomidine HCl 1000 mcg/ Sodium Chloride 250 ml @ 29.9 mls/hr TITRATE IV Last administered on 08/30/17 17:58; Start 08/30/17 at 16:45; Stop 08/31/17 at 06:14; Status DC Dexmedetomidine HCl 200 mcg/ Sodium Chloride 50 ml @ 29.9 mls/hr TITRATE IV Last administered on 08/30/17 15:27; Start 08/30/17 at 15:00; Stop 08/30/17 at 16:42; Status DC Dextrose 1,000 ml @ 42 mls/hr [id number] IV Last administered on 09/20/17 09:25 ; Start 09/19/17 at 08:45; Stop 09/20/17 at 11:39; Status DC Dextrose (D50w (Vial) Inj) 25 ml UNSCH PRN IV PUSH HYPOGLYCEMIA-SEE COMMENTS; Start 09/18/17 at 12:00 Diphenhydramine HCl (Benadryl Inj) 25 mg Q6H IV PUSH Last administered on 08:06; Start 09/15/17 at 15:00; Stop 09/18/17 at 14:59; Status DC Etomidate (Amidate Inj) 20 mg ONCE ONCE IVP ; Start 08/29/17 at 00:00; Stop 08/29/17 at 00:01; Status DC Famotidine (Pepcid) 20 mg BID NG Last administered on 10/05/17 10:54; Start 09/24/17 at 09:30 Fentanyl Citrate 250 ml @ 5 mls/hr TITRATE PRN IV SEDATION Last administered on 09/11/17 06:14; Start 08/29/17 at 00:45; Stop 09/11/17 at 10:20; Status DC Fluticasone Propionate (Flonase Tae Spr) 2 spray DAILY EACH NARE Last administered on 10/05/17 09:00; Start 09/05/17 at 17:00 Gelatin (Gelfoam 12 Mm/7 Mm Top) 1 foam Q2HR PRN TOPICAL if still bleeding from peg Last administered on 09/08/17 08:00; Start 09/07/17 at 19:45 Glucagon (Glucagon Inj) 1 mg UNSCH PRN OTHER HYPOGLYCEMIA-SEE COMMENTS; Start 09/25/17 at 09:30 Haloperidol Lactate (Haldol Inj) 5 mg Q4H PRN IV agitation Last administered on 09/12/17 23:04; Start 08/31/17 at 11:00; Stop 09/25/17 at 09:30; Status DC Heparin Sodium (Porcine) (Heparin Inj) 5,000 units Q12HR SQ Last administered on 09/28/17 08:20; Start 09/11/17 at 21:00; Status Future Hold Hydralazine HCl (Apresoline Inj) 10 mg Q30M PRN IV PUSH sbp > 160 Last administered on 09/19/17 09:08; Start 08/30/17 at 08:15 Hydralazine HCl (Apresoline) 100 mg Q8HR G-TUBE Last administered on 05:38; Start 09/25/17 at 14:00 Hydrochlorothiazide (Hydrodiuril) 25 mg DAILY PO Last administered on 10:37; Start 08/29/17 at 09:00; Stop 09/08/17 at 11:02; Status DC Insulin Aspart (NovoLOG SUPPLEMENTAL SCALE) 1 Q6H SQ Last administered on 10/05 05:57; Start 09/25/17 at 12:00 Insulin Detemir (Levemir Inj) 20 units Q12H SQ Last administered on 10/05/17 10:00; Start 09/19/17 at 10:00 Insulin Human Regular (NovoLIN R SUPPLEMENTAL SCALE) 1 Q4HR SQ Last administered on 09/25/17 04:09; Start 09/18/17 at 12:00; Stop 09/25/17 at 09: 28; Status DC Insulin Human Regular (NovoLIN R INJ) See Protocol Table ... CARPENTER FORM PRN SQ SEE PROTOCOL TABLE; Start 09/05/17 at 23:00; Stop 09/08/17 at 22:59; Status DC Labetalol HCl (Trandate Inj) 10 mg Q20M PRN IV PUSH SBP>140, DBP>90 Last administered on 09/19/17 02:16; Start 08/29/17 at 00:45 Labetalol HCl (Trandate) 300 mg NOW ONCE PEG Last administered on 09/17/17 04 :23; Start 09/17/17 at 04:15; Stop 09/17/17 at 04:16; Status DC Lactated Ringer's 1,000 ml @ 30 mls/hr Q24H PRN IV SEE LABEL COMMENTS; Start 09/05/17 at 23:00; Stop 09/08/17 at 22:59; Status DC Lactulose (Lactulose Liq) 30 ml BID PO Last administered on 09/04/17 19:57; Start 08/31/17 at 12:00; Stop 09/25/17 at 09:30; Status DC Lidocaine HCl (Lidocaine Pf 2% Neb) 1 ml Q6HR NEB PRN NEB cough/bronchial irritation; Start 09/16/17 at 11:30 Lisinopril (Prinivil) 40 mg DAILY PO Last administered on 09/04/17 09:07; Start 08/29/17 at 09:00; Stop 09/04/17 at 12:18; Status DC Lorazepam (Ativan Inj) 1 mg ONCE ONCE IV PUSH Last administered on 09/13/17 02:57; Start 09/13/17 at 02:45; Stop 09/13/17 at 02:46; Status DC Lorazepam (Ativan) 1 mg Q12H PO Last administered on 09/09/17 20:27; Start 09/07/17 at 19:00; Stop 09/11/17 at 10:25; Status DC Magnesium Hydroxide (Milk Of Magnesia Liq) 30 ml Q12H PRN PO Mild constipation ; Start 08/29/17 at 00:45; Stop 08/31/17 at 11:08; Status DC Magnesium Citrate (Citroma Liq) 300 ml ONCE ONCE PO Last administered on 08/31 11:57; Start 08/31/17 at 12:00; Stop 08/31/17 at 12:01; Status DC Magnesium Oxide (Mag-Ox) 800 mg UNSCH PRN PO For Magnesium 1.2 - 1.6 mg/dL; Start 08/30/17 at 08:15; Stop 08/31/17 at 13:02; Status DC Magnesium Sulfate 2 gm/Sodium Chloride 100 ml @ 50 mls/hr UNSCH PRN IV For Magnesium 1.2 - 1.6 mg/dL; Start 08/30/17 at 08:15; Stop 08/31/17 at 13:02; Status DC Magnesium Sulfate 4 gm/Sodium Chloride 100 ml @ 50 mls/hr UNSCH PRN IV For Magnesium 0.9 - 1.1 mg/dL; Start 08/30/17 at 08:15; Stop 08/31/17 at 13:02; Status DC Magnesium Sulfate/ Dextrose 100 ml @ 100 mls/hr Q1H IV Last administered on 12:22; Start 08/31/17 at 12:00; Stop 08/31/17 at 13:00; Status DC Metoclopramide HCl (Reglan Inj) 5 mg Q8HR IV PUSH Last administered on 22:55; Start 09/09/17 at 22:00; Stop 09/11/17 at 10:25; Status DC Metoprolol Tartrate (Lopressor) 25 mg Q8H G-TUBE ; Start 09/25/17 at 13:00; Stop 09/25/17 at 13:00; Status DC Midazolam HCl (Versed Inj) 10 mg ONCE ONCE IV PUSH ; Start 09/08/17 at 13:00; Stop 09/08/17 at 13:41; Status DC Miscellaneous Information 1 [id number] Last administered on 08/29/17 01:00; Start 08/29/17 at 00:45 Modafinil (Provigil) 200 mg DAILY PO Last administered on 09/12/17 09:07; Start 09/11/17 at 12:00; Stop 09/25/17 at 09:30; Status DC Morphine Sulfate (Morphine Inj) 2 mg Q2H PRN IV PUSH breakthru pain; Start at 16:30 Nicardipine HCl 25 mg/Sodium Chloride 250 ml @ 50 mls/hr TITRATE PRN IV Blood pressure management Last administered on 09/17/17 04:57; Start 09/13/17 at 02: 45; Stop 09/17/17 at 12:47; Status DC Nicardipine HCl 50 mg/Sodium Chloride 500 ml @ 50 mls/hr TITRATE PRN IV BLOOD PRESSURE MANAGEMENT Last administered on 09/05/17 22:00; Start 09/02/17 at 21 :15; Stop 09/11/17 at 10:25; Status DC Ondansetron HCl (Zofran Inj) 4 mg Q6H PRN IV PUSH NAUSEA OR VOMITING Last administered on 09/11/17 14:18; Start 08/29/17 at 00:45 Oxycodone HCl (Roxicodone Intensol Liq) 5 mg Q6H PRN G-TUBE pain 6-10 Last administered on 09/25/17 20:48; Start 09/25/17 at 15:00 Pantoprazole Sodium (Protonix Inj) 40 mg DAILY IV PUSH Last administered on 09:15; Start 08/29/17 at 09:00; Stop 09/11/17 at 10:25; Status DC Pharmacy Profile Note 0 ml @ 0 mls/hr UNSCH OTHER ; Start 09/13/17 at 02:45; Stop 09/17/17 at 10:11; Status DC Piperacillin Sod/ Tazobactam Sod 50 ml @ 100 mls/hr Q6H IV Last administered on 09/19/17 20:26; Start 09/13/17 at 03:00; Stop 09/19/17 at 23:00; Status DC Polyethylene Glycol (Miralax) 17 gm BID G-TUBE Last administered on 10/03/17 22:06; Start 09/25/17 at 21:00 Potassium Chloride 30 meq/ Sodium Chloride 115 ml @ 38.333 mls/ hr ONCE ONCE IV-CENTRAL Last administered on 09/03/17 13:36; Start 09/03/17 at 14:00; Stop 09/03/17 at 16:59; Status DC Potassium Phosphate (K-Phos) 2,000 mg UNSCH PRN PO/TUBE SEE LABEL COMMENTS; Start 08/30/17 at 08:15; Stop 08/31/17 at 13:02; Status DC Potassium Phosphate 30 mmol/ Sodium Chloride 260 ml @ 42 mls/hr UNSCH PRN IV SEE LABEL COMMENTS; Start 08/30/17 at 08:15; Stop 08/31/17 at 13:02; Status DC Potassium Bicarb/ Potassium Chloride (K-Lyte Cl Eff) 50 meq ONCE ONCE PO Last administered on 09/25/17 05:25; Start 09/25/17 at 04:30; Stop 09/25/17 at 04:31; Status DC Potassium Chloride 100 ml @ 50 mls/hr Q2H IV Last administered on 09/15/17 10 :22; Start 09/15/17 at 08:15; Stop 09/15/17 at 12:14; Status DC Potassium Chloride (KCl Powder) 40 meq ONCE ONCE PEG Last administered on 12:15; Start 09/08/17 at 12:15; Stop 09/08/17 at 12:21; Status DC Potassium Chloride (KCl) 40 meq ONCE ONCE PO ; Start 09/08/17 at 09:00; Stop 09/08/17 at 12:05; Status DC Povidone Iodine (Betadine 5% Antisepsis Kit) 1 applic CARPENTER FORM PRN EACH NARE SEE LABEL COMMENTS; Start 09/05/17 at 23:00; Stop 09/08/17 at 22:59; Status DC Propofol 100 ml @ 14.352 mls/ hr TITRATE PRN IV SEDATION Last administered on 09/10/17 09:59; Start 08/31/17 at 00:30; Stop 09/11/17 at 10:20; Status DC Propranolol HCl (Inderal) 40 mg Q6HR G-TUBE Last administered on 10/05/17 05: 38; Start 09/25/17 at 12:00 Quetiapine Fumarate (SEROquel) 50 mg Q8HR G-TUBE Last administered on 05:38; Start 09/25/17 at 14:00 Rocuronium Warne (Zemuron Inj) 100 mg BOLUS ONCE IV ; Start 09/08/17 at 13: 00; Stop 09/08/17 at 13:44; Status DC Senna/Docusate Sodium (Melina-Colace) 1 tab BID G-TUBE Last administered on 10/05 10:54; Start 09/25/17 at 21:00 Sennosides (Senokot) 17.2 mg Q12H PRN PO Moderate constipation; Start at 00:45; Stop 08/31/17 at 11:08; Status DC Silver Nitrate/ Potassium Nitrate (Silver Nitrate Applicators) 1 appl ONCE ONCE TOPICAL Last administered on 09/07/17 10:15; Start 09/07/17 at 10:15; Stop 09/07/17 at 10:47; Status DC Sodium Polystyrene Sulfonate (Kayexalate Liq) 30 gm Q2HR PO Last administered on 09/21/17 19:53; Start 09/21/17 at 16:00; Stop 09/21/17 at 21:00; Status DC Sodium Chloride 250 ml @ 15 mls/hr ONCE ONCE IV ; Start 09/28/17 at 10:15; Stop 09/28/17 at 16:53; Status DC Sodium Chloride (NS Flush) 2 ml UNSCH PRN IVF FLUSH AFTER USING IV ACCESS Last administered on 09/28/17 20:47; Start 08/29/17 at 00:00 Sodium Chloride 38.5 meq/Sterile Water 1,009.625 ml @ 42 mls/hr Q24H IV Last administered on 09/25/17 06:01; Start 09/20/17 at 13:00; Stop 09/25/17 at 09 :24; Status DC Sodium Phosphate 30 mmol/Sodium Chloride 250 ml @ 42 mls/hr UNSCH PRN IV For Phosphorus < 2.5 mg/dL; Start 08/30/17 at 08:15; Stop 08/31/17 at 13:02; Status DC Succinylcholine Chloride (Quelicin Inj) 100 mg ONCE ONCE IV PUSH ; Start 08/29 at 00:00; Stop 08/29/17 at 00:01; Status DC Vancomycin HCl 1500 mg/Sodium Chloride 515 ml @ 257.5 mls/ hr ONCE ONCE IV Last administered on 09/16/17 17:07; Start 09/16/17 at 15:00; Stop 09/16/17 at 16:59; Status DC Vancomycin HCl 2000 mg/Sodium Chloride 520 ml @ 250 mls/hr ONCE ONCE IV Last administered on 09/13/17 05:52; Start 09/13/17 at 04:00; Stop 09/13/17 at 06:04 ; Status DC Vancomycin HCl 2500 mg/Sodium Chloride 525 ml @ 250 mls/hr ONCE ONCE IV Last administered on 09/14/17 12:29; Start 09/14/17 at 12:00; Stop 09/14/17 at 14:05 ; Status DC Water (Free Water) 300 ml Q4HR G-TUBE Last administered on 10/05/17 08:00; Start 09/18/17 at 12:00 A/P Problem List: (1) Intracranial hemorrhage ICD Code: I62.9 - Nontraumatic intracranial hemorrhage, unspecified Status: Acute Assessment and Plan A/P Acute encephalopathy - improving. Left Thalamic Hemorrhage Intracerebral Hemorrhage - Repeat CT of the head showed improving bleed - Neurosurgery follow-up appreciated; stable for dc to SNF per neurosurgery. - Continue rehabilitation efforts with PT, OT, speech - On Seroquel to control agitated delirium. Roxicodone as needed for pain Anemia likely due to chronic disease. H/H fairly stable. will monitor periodically. Healthcare associated pneumonia finished the course of antibiotic. UTI: treated. Respiratory failure s/p trach - Tolerating T piece - CT of the chest 09/13/17 -LLL infiltrate. Repeat chest x-ray on 09/26/17 shows stable left lower lobe consolidation - continue neb treatment. -Patient had angioedema, source unclear and was seen by ENT. He was treated with steroids. Per ENT, expect slow improvement. This is resolving. -Appreciate pulmonology following for trach management Hyperglycemia - persistent. - Continue Levemir 20 units SQ q12h - Continue sliding scale insulin with Accu-Cheks. - hemoglobin A1c 9.1. Hypertension - Intermittent hypertension now well controlled - Continue clonidine, amlodipine and propranolol - Continue hydralazine. Nutrition status: - Status post PEG tube continue tube feeds - Having bowel movements - Continue Free water Acute kidney injury, most likely has CKD per nephrology: Renal function stabilized. - monitor renal function periodically. Physical deconditioning/right sided hemiparesis - OOB to stretcher chair daily - PT/OT following PROPH: - SCD's. Pepcid for GI prophylaxis Discharge Planning dc planning to SNF in progress. Zoë Rivas MD Oct 05, 2017 11:04
--- NOTE | 2017-10-05 11:09 | HHI.NSPN ---
(RamaJames) History Chief Complaint: Unable to obtain due to patient's clinical condition. (RamaJames) Interval History 08/29: History of hypertension who was brought to the emergency room per [facility] after being found with altered mental status, right hemiparesis. He had reportedly been seen to be normal approximately 3-1/2 hours prior. Systolic blood pressure greater than 260/130 on initial evaluation. No seizure activity reported. Positive emesis. Per emergency room personnel the patient was responding verbally, difficulty raising his right arm upon initial arrival. He was intubated in the emergency room and a stat CT scan accomplished which has revealed a primarily left thalamic intracranial hemorrhage. 09/01/17: Patient remains intubated and sedated. :09/02: intubated and well sedated, not tolerating sedation vacation due to increase in blood pressure. 09/03/17: Remains on propofol and fentanyl IV for ventilator control. Positive agitation with decreased sedation 09/04/17: Pt sedated on Diprivan and Fentanyl drip. Not following commands. Pt on Cardene drip. Intubated. 09/05/17: Pt sedated on Diprivan and Fentanyl drip. Not following commands. Pt on Cardene drip. Intubated. Pupils 2mm bilaterally, NR bilaterally. 09/06/17: Remains intubated. PEG tube placed today. On Decadron and Benadryl for angioedema. Lisinopril discontinued 09/07. The patient is obtunded but is sedated with propofol. Nursing reports that the patient does have bleeding secondary to his PEG tube being placed yesterday. The family reports that the plan is to do a tracheostomy tomorrow. Nursing does say the patient does withdraw to stimulation, has a cough and gag reflex but his pupils are nonreactive. 09/10: The patient continues to be obtunded although he has sedation infusing at a low dose. He is trached and tolerating a CPAP trial. 09/13: Obtunded versus lethargic. He is not on any sedation. He is trached and mechanically ventilated. He went for a CT brain this morning. Nursing reports that the patient does withdraw to noxious stimulation and that the pupils are sluggish. 09/14: The patient has his eyes open when seen. He continues to be trached and mechanically ventilated. Nursing this morning reports that the patient gave a thumbs up on the left hand to command for him. 09/15: Pt off sedative drips. Pupils 2mm bilaterally slight reaction bilaterally. Not following commands. Not opening eyes. 09/16: When seen this morning the patient appears lethargic. He is trached and on T-piece. Nursing reports that the patient was more alert and did give a thumbs up to command this morning prior to receiving diphenhydramine. He also reported no movement to the right side. 09/17: No acute events overnight. Patient up in chair 09/18: No acute events overnight. Patient remains hypertensive. He is in bed with at his side. 09/19: Persistent hypertension overnight. 09/20/2017: Tracheostomy in place. Upper endoscopy performed 09/19/17 with findings of small amount of bleeding at the PEG site. 09/22: The patient is awake when seen. He does interact. 09/23: This morning the patient does have his eyes closed but opens them to voice. He does follow commands with the left side extremities and it appears he does track. 09/24: When seen the patient is awake and looks towards my voice. He does follow commands on the left and appears to track with the eyes. No movement of the right noted. 09/27: The patient is moving the left arm spontaneously to wipe his face. He continues to have some mild swelling to the tongue. He was transferred from [facility] to a regular med/surg floor on . 09/28: This afternoon the patient is asleep but awakens to noxious stimulation. His family states that he was extremely tired. Once awake he did interact. 10/05: When seen this morning the patient has his eyes closed. Nursing states that the patient has been sleepy every time she has been in the room today. He did respond and open his eyes to central noxious stimulation and follow some commands. (James Ontiveros) System Review Comments Unable to obtain due to patient's clinical condition. (James Ontiveros) Exam Results 10/03/17 10/03/17 10/04/17 10/04/17 10/05/17 10/05/17 05:59 17:59 05:59 17:59 05:59 17:59 Intake Total 1100 ml 1500 ml 1600 ml 1600 ml Output Total 2000 ml 1600 ml 1400 ml 600 ml 500 ml 900 ml Balance -900 ml -100 ml -1400 ml 1000 ml -500 ml 700 ml Intake Oral 0 ml 0 ml Tube Feeding 1100 ml 600 ml 600 ml 700 ml Tube Irrigant 100 ml 900 ml Other 900 ml 900 ml Output Urine Total 2000 ml 1600 ml 1400 ml 600 ml 500 ml 900 ml # Voids 2 # Bowel Movements 1 0 0 1 1 Vital Signs Date Time Temp Pulse Resp B/P (MAP) Pulse Ox O2 Delivery O2 Flow Rate FiO2 10/05/17 09:55 99 T-piece 10/05/17 08:00 97.6 79 18 137/75 (95) 98 10/05/17 04:00 81 10/05/17 04:00 98.6 80 20 141/72 (95) 98 10/05/17 03:57 T-Piece 6.00 10/05/17 00:00 82 10/05/17 00:00 T-Piece 6.00 10/05/17 00:00 97.5 81 18 136/77 (96) 97 10/04/17 21:20 T-Piece 6.00 10/04/17 20:26 95 T-piece 6.00 10/04/17 20:00 85 10/04/17 20:00 98.9 83 20 163/94 (117) 94 10/04/17 16:35 98.6 86 20 141/79 (99) 99 10/04/17 16:23 87 10/04/17 12:17 98.8 91 18 141/81 (101) 94 10/04/17 12:13 97 10/04/17 08:08 99.9 87 18 148/79 (102) 94 10/04/17 07:47 T-Piece 6.00 10/04/17 07:47 86 10/04/17 04:00 85 10/04/17 04:00 98.7 86 17 137/81 (99) 98 10/04/17 00:20 96 T-piece 6.00 10/04/17 00:00 99.2 85 17 127/83 (98) 97 10/04/17 00:00 85 10/03/17 20:30 T-Piece 6.00 28 10/03/17 20:00 99.1 82 17 157/86 (109) 96 10/03/17 20:00 77 10/03/17 16:00 83 10/03/17 16:00 98.0 81 17 147/76 (99) 95 10/03/17 12:00 80 10/03/17 12:00 98.0 79 18 165/80 (108) 93 10/03/17 11:18 80 10/03/17 09:10 T-Piece 28 10/03/17 08:30 98 T-piece 6.00 28 10/03/17 08:00 98.3 81 17 137/72 (93) 96 10/03/17 04:58 98.4 79 20 145/81 (102) 99 10/03/17 04:04 78 10/03/17 00:12 89 10/03/17 00:00 98.7 89 20 121/74 (90) 99 10/02/17 20:15 T-Piece 5.00 28 10/02/17 20:11 90 10/02/17 20:00 98.2 89 20 124/75 (91) 98 10/02/17 18:11 98.5 96 20 175/68 (103) 93 10/02/17 16:50 98 T-piece 6.00 28 10/02/17 12:11 99.2 80 20 168/89 (115) 92 10/02/17 12:00 78 (James Ontiveros) Physical Examination GENERAL: Asleep but awakens to noxious stimulation, interacts with coaxing, no evident distress. HEENT: Normocephalic, atraumatic. Left pupil 4 mm & right pupil 5 mm, slight reaction, disconjugate gaze. Tongue still moderately edematous. MUSCULOSKELETAL: Moves left-sided extremities, apparent right hemiplegia, no evident clubbing or deformity. NEUROLOGICAL: Asleep but awakens to noxious stimulation. Readily closes eyes again. Left pupil 4 mm & right pupil 5 mm, slight reaction. Persistent disconjugate extraocular movements. Nonverbal, trached. Follows simple commands with left side. Minimal hand squeeze and lifts hand off bed when asked to do thumbs up but didn 't give thumbs up. Facial grimacing and slight movement of RLE to noxious stimulation. Facial grimacing and movement of left-side and right lower extremities to local noxious stimulation to RUE but no movement of RUE. (James Ontiveros) Lab, Micro, Other Results Laboratory Tests Test 10/04/17 08:19 White Blood Count 7.6 TH/MM3 Red Blood Count 2.98 MIL/MM3 Hemoglobin 7.9 GM/DL Hematocrit 24.1 % Mean Corpuscular Volume 81.0 FL Mean Corpuscular Hemoglobin 26.5 PG Mean Corpuscular Hemoglobin Concent 32.7 % Red Cell Distribution Width 14.5 % Platelet Count 327 TH/MM3 Mean Platelet Volume 8.2 FL Neutrophils (%) (Auto) 74.2 % Lymphocytes (%) (Auto) 14.2 % Monocytes (%) (Auto) 7.1 % Eosinophils (%) (Auto) 3.9 % Basophils (%) (Auto) 0.6 % Neutrophils # (Auto) 5.6 TH/MM3 Lymphocytes # (Auto) 1.1 TH/MM3 Monocytes # (Auto) 0.5 TH/MM3 Eosinophils # (Auto) 0.3 TH/MM3 Basophils # (Auto) 0.0 TH/MM3 CBC Comment DIFF FINAL Differential Comment Blood Urea Nitrogen 20 MG/DL Creatinine 0.89 MG/DL Random Glucose 141 MG/DL Calcium Level 9.1 MG/DL Sodium Level 136 MEQ/L Potassium Level 3.5 MEQ/L Chloride Level 97 MEQ/L Carbon Dioxide Level 33.5 MEQ/L Anion Gap 6 MEQ/L Estimat Glomerular Filtration Rate 113 ML/MIN (James Ontiveros) Medical Decision Making Impression and Plan Impression: 1. Large thalamic intracranial hemorrhage. 2. Hypertension, improved 3. Klebsiella pneumonia, resolved The patient continues to be stable neurologically, minimal improvement in right hemiplegia. CT brain w/improvement of left thalamic haemorrhage, decreased midline shift, blood noted in posterior horns, no acute findings. Plan: Primary management per Hospitalist. Neuro checks. Stat CT brain for any decline in neuro status. Abx per Infectious Disease. Palliative Care consult. Continue full supportive care measures per family. The patient is stable for discharge to a SNF from NSGY's perspective. (James Ontiveros) Attending Statement The exam, history, and the medical decision-making described in the above note were completed with the assistance of the mid-level provider. I reviewed and agree with the findings presented. I attest that I had a [id number] encounter with the patient on the same day, and personally performed and documented my assessment and findings in the medical record. Remains awake, relatively alert Tracks to the left greater than right with eyes Mild left hand grasp to command. Mild right upper showed a flexion to deep pain Neurologic stable Following intermittently while in hospital Neurosurgery okay for discharge to rehabilitation (Orville Tinajero MD) James Ontiveros Oct 05, 2017 11:09 Orville Tinajero MD Oct 08, 2017 20:10
--- NOTE | 2017-10-05 17:25 | HHI.PR ---
Subjective Remarks 46 YOAA male with ICH,RF,Trach Moves left ext Looks around no fever has thick secretions, requires suction no New complaint Objective Vital Signs Vital Signs Date Time Temp Pulse Resp B/P (MAP) Pulse Ox O2 Delivery O2 Flow Rate FiO2 10/05/17 12:00 84 10/05/17 12:00 99.3 85 20 141/79 (99) 98 10/05/17 09:55 99 T-piece 28 10/05/17 08:05 78 10/05/17 08:00 97.6 79 18 137/75 (95) 98 10/05/17 07:00 T-Piece 6.00 28 10/05/17 04:00 81 10/05/17 04:00 98.6 80 20 141/72 (95) 98 10/05/17 03:57 T-Piece 6.00 28 10/05/17 00:00 82 10/05/17 00:00 T-Piece 6.00 28 10/05/17 00:00 97.5 81 18 136/77 (96) 97 10/04/17 21:20 T-Piece 6.00 28 10/04/17 20:26 95 T-piece 6.00 28 10/04/17 20:00 85 10/04/17 20:00 98.9 83 20 163/94 (117) 94 I/O 10/04/17 10/04/17 10/04/17 10/05/17 10/05/17 10/05/17 07:00 15:00 23:00 07:00 15:00 23:00 Intake Total 1600 ml 1600 ml Output Total 600 ml 500 ml 900 ml Balance -600 ml 1100 ml 700 ml Intake Oral 0 ml Tube Feeding 600 ml 700 ml Tube Irrigant 100 ml 900 ml Other 900 ml Output Urine Total 600 ml 500 ml 900 ml # Voids 2 # Bowel Movements 0 1 1 Result Diagram: 10/04/1781810/04/17818 Objective Remarks GENERAL: WBWN AA male, NAD SKIN: Warm and dry. HEAD: Normocephalic. EYES: No scleral icterus. No injection or drainage. NECK: Supple, trachea midline. No JVD or lymphadenopathy. trach CARDIOVASCULAR: Regular rate and rhythm without murmurs, gallops, or rubs. RESPIRATORY: Breath sounds equal bilaterally. No accessory muscle use. GASTROINTESTINAL: Abdomen soft, non-tender, nondistended. MUSCULOSKELETAL: No cyanosis, or edema. BACK: Nontender without obvious deformity. No CVA tenderness. A/P Assessment and Plan Resp failure S/P Trach HTN ICH, right side flacid Pn PLAN Trach care Aerosol nebs Cont Abx Tube feeding Suction prn Jesus Villar MD Oct 05, 2017 17:25
[2017-10-05] MEDS: ATORVASTATIN 40 MG TAB DOBHOFF SCH (20:13)
[2017-10-06] VITALS (13 sets, daily range): BP systolic 130–155; BP diastolic 70–87; PULSE 75–91; RESP 18–20; TEMP 98.5–98.6; O2SAT 95–100
[2017-10-06] MEDS: CHLORHEXIDINE GLUCONATE 2 % 1 PACK (2 CLOTHS) TOP SCH (03:14)
[2017-10-06] MEDS: hydrALAZINE HCL 100 MG TAB G-TUBE SCH ×3 (05:29→22:04)
[2017-10-06] MEDS: cloNIDine HCL 0.3 MG TAB G-TUBE SCH ×3 (05:29→22:04)
[2017-10-06] MEDS: QUEtiapine FUMARATE 25 MG TAB G-TUBE SCH ×3 (05:29→22:04)
[2017-10-06] MEDS: PROPRANOLOL HCL 40 MG TAB G-TUBE SCH ×3 (05:29→17:31)
[2017-10-06] MEDS: FREE WATER G-TUBE SCH ×5 (05:30→22:03)
[2017-10-06] MEDS: INSULIN ASPART SUPPLEMENTAL SCALE SQ SCH ×3 (05:32→17:26)
[2017-10-06] MEDS: CHLORHEXIDINE 0.12% (ORAL KIT) 15 ML CUP MT SCH ×2 (08:00→22:03)
[2017-10-06] MEDS: FLUTICASONE PROPIONATE 50 MCG/ACT 16 GM NASAL SPRAY EACH NARE SCH (08:55)
[2017-10-06] MEDS: FAMOTIDINE 20 MG TAB NG SCH ×2 (08:55→22:04)
[2017-10-06] MEDS: DOCUSATE SODIUM 50 MG/SENNA 8.6 MG TAB G-TUBE SCH ×2 (08:55→22:04)
[2017-10-06] MEDS: INSULIN DETEMIR 100 UNITS/ML VIAL SQ SCH ×2 (08:55→22:06)
[2017-10-06] MEDS: POLYETHYLENE GLYCOL 17 GM PKG G-TUBE SCH ×2 (08:55→22:06)
--- NOTE | 2017-10-06 13:55 | HHI.PR ---
Subjective Remarks NO NEW COMPLAINTS AWAITS PLACEMENT WORKING WITH PT AND OT REMAINS FLACCID ON THE RIGHT SIDE DW RN AND PT AND CM Objective Vitals Vital Signs Date Time Temp Pulse Resp B/P (MAP) Pulse Ox O2 Delivery O2 Flow Rate FiO2 10/06/17 11:40 96 T-piece 28 10/06/17 08:11 98.5 76 18 130/72 (91) 99 10/06/17 08:00 79 10/06/17 08:00 T-Piece 6.00 28 10/06/17 04:00 98.5 81 20 155/86 (109) 100 10/06/17 03:44 81 10/06/17 00:00 98.5 86 20 136/70 (92) 95 10/05/17 23:42 83 10/05/17 20:31 T-Piece 6.00 28 10/05/17 20:04 99.5 80 18 148/87 (107) 97 10/05/17 19:53 83 10/05/17 16:15 84 10/05/17 16:00 100.5 87 20 130/68 (88) 97 I/O 10/05/17 10/05/17 10/05/17 10/06/17 10/06/17 10/06/17 07:00 15:00 23:00 07:00 15:00 23:00 Intake Total 1600 ml 0 ml 463 ml Output Total 900 ml 1500 ml 450 ml Balance 700 ml -1500 ml 13 ml Intake Oral 0 ml 0 ml 0 ml Tube Feeding 700 ml 463 ml Tube Irrigant 900 ml Output Urine Total 900 ml 1500 ml 450 ml # Bowel Movements 1 0 Result Diagram: 10/04/1781810/04/1719 Other Results Laboratory Tests Test 10/04/17 08:19 White Blood Count 7.6 TH/MM3 Red Blood Count 2.98 MIL/MM3 Hemoglobin 7.9 GM/DL Hematocrit 24.1 % Mean Corpuscular Volume 81.0 FL Mean Corpuscular Hemoglobin 26.5 PG Mean Corpuscular Hemoglobin Concent 32.7 % Red Cell Distribution Width 14.5 % Platelet Count 327 TH/MM3 Mean Platelet Volume 8.2 FL Neutrophils (%) (Auto) 74.2 % Lymphocytes (%) (Auto) 14.2 % Monocytes (%) (Auto) 7.1 % Eosinophils (%) (Auto) 3.9 % Basophils (%) (Auto) 0.6 % Neutrophils # (Auto) 5.6 TH/MM3 Lymphocytes # (Auto) 1.1 TH/MM3 Monocytes # (Auto) 0.5 TH/MM3 Eosinophils # (Auto) 0.3 TH/MM3 Basophils # (Auto) 0.0 TH/MM3 CBC Comment DIFF FINAL Differential Comment Blood Urea Nitrogen 20 MG/DL Creatinine 0.89 MG/DL Random Glucose 141 MG/DL Calcium Level 9.1 MG/DL Sodium Level 136 MEQ/L Potassium Level 3.5 MEQ/L Chloride Level 97 MEQ/L Carbon Dioxide Level 33.5 MEQ/L Anion Gap 6 MEQ/L Estimat Glomerular Filtration Rate 113 ML/MIN Imaging Last Impressions Chest X-Ray 09/26/17 0000 Signed Impressions: Service Date/Time: Tuesday, September 26, 2017 09:45 - CONCLUSION: Stable examination with left basilar consolidation/effusion. Reyes Guzman MD Maxillofacial CT 09/16/17 0000 Signed Impressions: Service Date/Time: September 01:03 - CONCLUSION: 1. Evidence of acute pansinusitis. 2. Opacification of multiple bilateral mastoid air cells most characteristic of mastoiditis. 3. Mildly prominent cervical chain nodes which may be reactive. Angelo Conn MD Upper Extremity Ultrasound 09/15/17 0000 Signed Impressions: Service Date/Time: Friday, September 15, 2017 17:14 - CONCLUSION: Occlusive thrombus within the left cephalic vein and nonocclusive thrombus within the right cephalic vein. Ric Jack MD Lower Extremity Ultrasound 09/15/17 0000 Signed Impressions: Service Date/Time: Friday, September 15, 2017 16:58 - CONCLUSION: No evidence of DVT within the lower extremities. Ric Jack MD Head CT 09/13/17 0800 Signed Impressions: Service Date/Time: Wednesday, September 13, 2017 09:17 - CONCLUSION: 1. Resolving left basal ganglia hematoma Natan Lagos MD Chest CT 09/13/17 0000 Signed Impressions: Service Date/Time: Wednesday, September 13, 2017 09:28 - CONCLUSION: 1. Bibasilar and left lingular dependent atelectatic changes. Lungs are otherwise clear. 2. Tracheostomy tube with the tip probably positioned above the connie. 3. Compensated cardiomegaly. Reyes Guzman MD Abdomen/Pelvis CT 09/13/17 0000 Signed Impressions: Service Date/Time: Wednesday, September 13, 2017 09:28 - CONCLUSION: 1. There is some stranding in the retroperitoneal perivascular tissues around the distal aorta extending into the bifurcation with a regional borderline lymph nodes. Findings are characteristic of a nonspecific inflammatory process. Findings could represent early retroperitoneal fibrosis.. 2. Urinary bladder is decompressed with some mural thickening in pericystic inflammatory changes possibly representing a chronic cystitis. Nondependent air could be associated with a recent catheterization/instrumentation. 3. Small umbilical and right inguinal hernias only contain fat. 4. Bilateral dependent basilar and left lingular atelectatic changes. Heart size is borderline prominent. 5. Otherwise , bowel is intact without obstruction to explain abdominal distention Reyes Guzman MD Abdomen X-Ray 09/10/17 0600 Signed Impressions: Service Date/Time: Sunday, September 10, 2017 03:56 - CONCLUSION: No significant abnormality is identified. There is mild distention of the colon but there are no findings to suggest bowel obstruction or significant ileus. Ignacio Underwood MD Liver Ultrasound 09/07/17 0000 Signed Impressions: Service Date/Time: Thursday, September 07, 2017 12:37 - CONCLUSION: 1. Unremarkable sonographic appearance of the liver. No evidence for hepatic volume loss or intrahepatic ductal dilatation. 2. No sonographic evidence for cholelithiasis or acute cholecystitis. 3. Mild increased right renal echogenicity may reflect medical renal disease. 4. Small bilateral pleural effusions. 5. Pancreas and inferior pole of the right kidney are obscured by bowel gas and therefore not evaluated. Darrell Robles MD Renal Ultrasound 08/31/17 0000 Signed Impressions: Service Date/Time: Thursday, August 31, 2017 17:42 - CONCLUSION: 1. No evidence of hydronephrosis on either side. 2. Solitary linear echogenic focus in the upper pole parenchyma of the right kidney has similar features to prior examination in January 2017 and possibly represents a calcification. David Snell MD Neck CTA 08/28/17 [id number] Signed Impressions: Service Date/Time: Tuesday, August 29, 2017 00:13 - CONCLUSION: Negative carotid CTA. David Snell MD Head CTA 08/28/17 [id number] Signed Impressions: Service Date/Time: Tuesday, August 29, 2017 00:13 - CONCLUSION: 1. No evidence of vessel truncation or aneurysm. 2. No abnormal vessels in the region of the large left thalamic hemorrhage. David Snell MD Objective Remarks GENERAL: Awake and alert moves left side flaccid on the right side has tracheostomy in place and PEG tube in place SKIN: Warm and dry. HEAD: Atraumatic. Normocephalic. EYES: Pupils equal and round. No scleral icterus. No injection or drainage. ENT: No nasal bleeding or discharge. Mucous membranes pink and moist. NECK: Trachea midline. No JVD. Tracheostomy in place CARDIOVASCULAR: Regular rate and rhythm. S1 and S2 no S3 or S4 RESPIRATORY: No accessory muscle use.. Breath sounds equal bilaterally. Coarse breath sounds bilaterally GASTROINTESTINAL: Abdomen soft, non-tender, nondistended. Hepatic and splenic margins not palpable. PEG tube MUSCULOSKELETAL: Extremities without clubbing, cyanosis, or edema. No obvious deformities. Right side flaccid moves left side NEUROLOGICAL: Awake and alert. No obvious cranial nerve deficits. Motor grossly within normal limits. Five out of 5 muscle strength in the left arms and legs flaccid on the right. Cannot assess Normal speech due to to trach. PSYCHIATRIC: Appropriate mood and affect; insight and judgment normal cannot assess either of these due to trach. Procedures Tracheostomy and PEG placement Medications and IVs Current Medications Sodium Chloride 1,000 ml @ 70 mls/hr [id number] ONCE IV ; Start 08/28/17 at 23:47 ; Stop 08/29/17 at 14:04; Status DC Nicardipine HCl 25 mg/Sodium Chloride 250 ml @ 50 mls/hr TITRATE PRN IV Blood pressure management; Start 08/29/17 at 00:00; Stop 08/29/17 at 00:48; Status DC Propofol 100 ml @ 0 mls/hr TITRATE PRN IV SEDATION; Start 08/29/17 at 00:00; Stop 08/29/17 at 00:40; Status DC Propofol 100 ml @ As Directed STK-MED ONCE .ROUTE ; Start 08/28/17 at 23:57; Stop 08/28/17 at 23:58; Status DC Etomidate (Amidate Inj) 20 mg ONCE ONCE IVP ; Start 08/29/17 at 00:00; Stop 08/29/17 at 00:01; Status DC Succinylcholine Chloride (Quelicin Inj) 100 mg ONCE ONCE IV PUSH ; Start 08/29 at 00:00; Stop 08/29/17 at 00:01; Status DC Sodium Chloride (NS Flush) 2 ml UNSCH PRN IVF FLUSH AFTER USING IV ACCESS Last administered on 09/28/17 20:47; Start 08/29/17 at 00:00 Rocuronium Brilliant (Zemuron Inj) 50 mg BOLUS ONCE IV ; Start 08/29/17 at 00:15 ; Stop 08/29/17 at 00:17; Status DC Iohexol (Omnipaque 350 Inj) 100 ml STK-MED ONCE IVCONTRAST Last administered on 08/29/17 00:18; Start 08/29/17 at 00:18; Stop 08/29/17 at 00:19; Status DC Chlorhexidine Gluconate (Peridex 0.12% Liq) 15 ml BID@08,20 MT Last administered on 10/06/17 08:00; Start 08/29/17 at 08:00 Propofol 100 ml @ 3 mls/hr TITRATE PRN IV SEDATION; Start 08/29/17 at 00:45; Stop 08/29/17 at 04:17; Status DC Nicardipine HCl (Cardene Inj) 25 mg STK-MED ONCE .ROUTE ; Start 08/29/17 at 00: 36; Stop 08/29/17 at 00:37; Status DC Nicardipine HCl 25 mg/Sodium Chloride 250 ml @ 50 mls/hr TITRATE PRN IV BLOOD PRESSURE MANAGEMENT Last administered on 09/02/17 09:52; Start 08/29/17 at 00 :45; Stop 09/02/17 at 21:12; Status DC Labetalol HCl (Trandate Inj) 10 mg Q20M PRN IV PUSH SBP>140, DBP>90 Last administered on 09/19/17 02:16; Start 08/29/17 at 00:45 Amlodipine Besylate (Norvasc) 10 mg DAILY PO Last administered on 09/24/17 09 :14; Start 08/29/17 at 09:00; Stop 09/25/17 at 09:29; Status DC Lisinopril (Prinivil) 40 mg DAILY PO Last administered on 09/04/17 09:07; Start 08/29/17 at 09:00; Stop 09/04/17 at 12:18; Status DC Sodium Chloride 1,000 ml @ 75 mls/hr [id number] IV Last administered on 06:03; Start 08/29/17 at 00:43; Stop 08/31/17 at 11:07; Status DC Acetaminophen (Tylenol) 650 mg Q6H PRN PO PAIN 1-5 AND/OR FEVER >101F Last administered on 09/23/17 03:09; Start 08/29/17 at 00:45; Stop 09/25/17 at 09 :29; Status DC Morphine Sulfate (Morphine Inj) 2 mg Q2H PRN IV PUSH PAIN SCALE 6 TO 10 Last administered on 09/17/17 03:33; Start 08/29/17 at 00:45; Stop 09/24/17 at 16: 27; Status DC Pantoprazole Sodium (Protonix Inj) 40 mg DAILY IV PUSH Last administered on 09:15; Start 08/29/17 at 09:00; Stop 09/11/17 at 10:25; Status DC Ondansetron HCl (Zofran Inj) 4 mg Q6H PRN IV PUSH NAUSEA OR VOMITING Last administered on 09/11/17 14:18; Start 08/29/17 at 00:45 Albuterol/ Ipratropium (Duoneb Neb) 1 ampule Q4HR NEB PRN INH WHEEZING Last administered on 09/15/17 11:55; Start 08/29/17 at 00:45; Stop 09/17/17 at 12: 47; Status DC Miscellaneous Information 1 [id number] Last administered on 08/29/17 01:00; Start 08/29/17 at 00:45 Chlorhexidine Gluconate (Chlorhexidine 2% Cloth) 3 pack Taper DAILY@04 TOP ; Start 08/29/17 at 04:00; Stop 08/25/18 at 03:59 Chlorhexidine Gluconate (Chlorhexidine 2% Cloth) 3 pack UNSCH PRN TOP HYGIENIC CARE; Start 08/29/17 at 00:45 Senna/Docusate Sodium (Melina-Colace) 1 tab BID PO Last administered on 09:15; Start 08/29/17 at 09:00; Stop 08/31/17 at 11:08; Status DC Magnesium Hydroxide (Milk Of Magnesia Liq) 30 ml Q12H PRN PO Mild constipation ; Start 08/29/17 at 00:45; Stop 08/31/17 at 11:08; Status DC Sennosides (Senokot) 17.2 mg Q12H PRN PO Moderate constipation; Start at 00:45; Stop 08/31/17 at 11:08; Status DC Bisacodyl (Dulcolax Supp) 10 mg DAILY PRN RECTAL SEVERE CONSITIPATION; Start 08/29/17 at 00:45; Stop 08/31/17 at 11:08; Status DC Lactulose (Lactulose Liq) 30 ml DAILY PRN PO SEVERE CONSITIPATION; Start 08/29 at 00:45; Stop 08/31/17 at 11:08; Status DC Fentanyl Citrate 250 ml @ 5 mls/hr TITRATE PRN IV SEDATION Last administered on 09/11/17 06:14; Start 08/29/17 at 00:45; Stop 09/11/17 at 10:20; Status DC Fentanyl Citrate 250 ml @ As Directed STK-MED ONCE .ROUTE ; Start 08/29/17 at 01:30; Stop 08/29/17 at 04:10; Status DC Propofol 100 ml @ 3 mls/hr TITRATE PRN IV SEDATION Last administered on 07:37; Start 08/29/17 at 04:30; Stop 08/31/17 at 11:08; Status DC Rocuronium Brilliant (Zemuron Inj) 100 mg STAT ONCE IV Last administered on 02:00; Start 08/29/17 at 02:00; Stop 08/29/17 at 04:18; Status DC Atorvastatin Calcium (Lipitor) 40 mg HS PO Last administered on 09/24/17 20: 43; Start 08/29/17 at 21:00; Stop 09/25/17 at 09:29; Status DC Hydrochlorothiazide (Hydrodiuril) 25 mg DAILY PO Last administered on 10:37; Start 08/29/17 at 09:00; Stop 09/08/17 at 11:02; Status DC Metoprolol Tartrate (Lopressor) 100 mg BID PO Last administered on 08/31/17 09:15; Start 08/29/17 at 09:00; Stop 09/11/17 at 10:20; Status DC Clonidine (Catapres) 0.1 mg Q8HR PO Last administered on 09/06/17 04:55; Start 08/29/17 at 06:00; Stop 09/06/17 at 11:33; Status DC Sodium Chloride 1,000 ml @ 999 mls/hr Q1H1M ONCE IV Last administered on 08/29 06:10; Start 08/29/17 at 06:30; Stop 08/29/17 at 07:30; Status DC Magnesium Oxide (Mag-Ox) 800 mg UNSCH PRN PO For Magnesium 1.2 - 1.6 mg/dL; Start 08/29/17 at 13:15; Stop 08/30/17 at 15:34; Status DC Magnesium Sulfate 4 gm/Sodium Chloride 100 ml @ 50 mls/hr UNSCH PRN IV For Magnesium 0.9 - 1.1 mg/dL; Start 08/29/17 at 13:15; Stop 08/30/17 at 15:34; Status DC Magnesium Sulfate 2 gm/Sodium Chloride 100 ml @ 50 mls/hr UNSCH PRN IV For Magnesium 1.2 - 1.6 mg/dL; Start 08/29/17 at 13:15; Stop 08/30/17 at 15:34; Status DC Potassium Chloride 100 ml @ 50 mls/hr Q2H PRN IV For Potassium 2.8 - 3.2 mEq/ L Last administered on 08/29/17 17:06; Start 08/29/17 at 13:15; Stop at 15:34; Status DC Potassium Chloride 100 ml @ 50 mls/hr Q2H PRN IV For Potassium 3.3 - 3.5 mEq/ L Last administered on 08/30/17 06:13; Start 08/29/17 at 13:15; Stop at 15:34; Status DC Potassium Chloride 100 ml @ 50 mls/hr Q2H PRN IV For Potassium 2.8 - 3.2 mEq/L ; Start 08/29/17 at 13:15; Stop 08/30/17 at 15:34; Status DC Potassium Chloride 100 ml @ 25 mls/hr UNSCH PRN IV For Potassium 3.3 - 3.5 mEq /L; Start 08/29/17 at 13:15; Stop 08/30/17 at 15:34; Status DC Potassium Phosphate (K-Phos) 2,000 mg Q4H PRN PO For Phosphorus < 2.5 mg/dL; Start 08/29/17 at 13:15; Stop 08/30/17 at 15:34; Status DC Potassium Phosphate (K-Phos) 2,000 mg UNSCH PRN PO/TUBE SEE LABEL COMMENTS; Start 08/29/17 at 13:15; Stop 08/30/17 at 15:34; Status DC Potassium Phosphate 30 mmol/ Sodium Chloride 260 ml @ 42 mls/hr UNSCH PRN IV SEE LABEL COMMENTS; Start 08/29/17 at 13:15; Stop 08/30/17 at 15:34; Status DC Sodium Phosphate 30 mmol/Sodium Chloride 250 ml @ 42 mls/hr UNSCH PRN IV For Phosphorus < 2.5 mg/dL; Start 08/29/17 at 13:15; Stop 08/30/17 at 15:34; Status DC Dextrose (D50w (Vial) Inj) 25 ml UNSCH PRN IV PUSH HYPOGLYCEMIA-SEE COMMENTS; Start 08/30/17 at 08:15; Stop 09/18/17 at 11:53; Status DC Insulin Human Regular (NovoLIN R SUPPLEMENTAL SCALE) 1 Q6HR SQ Last administered on 09/18/17t 05:34; Start 08/30/17 at 12:00; Stop 09/18/17 at 11: 53; Status DC Magnesium Oxide (Mag-Ox) 800 mg UNSCH PRN PO For Magnesium 1.2 - 1.6 mg/dL; Start 08/30/17 at 08:15; Stop 08/31/17 at 13:02; Status DC Magnesium Sulfate 4 gm/Sodium Chloride 100 ml @ 50 mls/hr UNSCH PRN IV For Magnesium 0.9 - 1.1 mg/dL; Start 08/30/17 at 08:15; Stop 08/31/17 at 13:02; Status DC Magnesium Sulfate 2 gm/Sodium Chloride 100 ml @ 50 mls/hr UNSCH PRN IV For Magnesium 1.2 - 1.6 mg/dL; Start 08/30/17 at 08:15; Stop 08/31/17 at 13:02; Status DC Potassium Chloride 100 ml @ 50 mls/hr Q2H PRN IV For Potassium 2.8 - 3.2 mEq/L ; Start 08/30/17 at 08:15; Stop 08/31/17 at 13:02; Status DC Potassium Chloride 100 ml @ 50 mls/hr Q2H PRN IV For Potassium 3.3 - 3.5 mEq/L ; Start 08/30/17 at 08:15; Stop 08/31/17 at 13:02; Status DC Potassium Chloride 100 ml @ 50 mls/hr Q2H PRN IV For Potassium 2.8 - 3.2 mEq/L ; Start 08/30/17 at 08:15; Stop 08/31/17 at 13:02; Status DC Potassium Chloride 100 ml @ 25 mls/hr UNSCH PRN IV For Potassium 3.3 - 3.5 mEq /L; Start 08/30/17 at 08:15; Stop 08/31/17 at 13:02; Status DC Potassium Phosphate (K-Phos) 2,000 mg Q4H PRN PO For Phosphorus < 2.5 mg/dL; Start 08/30/17 at 08:15; Stop 08/31/17 at 13:02; Status DC Potassium Phosphate (K-Phos) 2,000 mg UNSCH PRN PO/TUBE SEE LABEL COMMENTS; Start 08/30/17 at 08:15; Stop 08/31/17 at 13:02; Status DC Potassium Phosphate 30 mmol/ Sodium Chloride 260 ml @ 42 mls/hr UNSCH PRN IV SEE LABEL COMMENTS; Start 08/30/17 at 08:15; Stop 08/31/17 at 13:02; Status DC Sodium Phosphate 30 mmol/Sodium Chloride 250 ml @ 42 mls/hr UNSCH PRN IV For Phosphorus < 2.5 mg/dL; Start 08/30/17 at 08:15; Stop 08/31/17 at 13:02; Status DC Hydralazine HCl (Apresoline Inj) 10 mg Q30M PRN IV PUSH sbp > 160 Last administered on 09/19/17t 09:08; Start 08/30/17 at 08:15 Oxycodone HCl (Roxicodone Intensol Liq) 5 mg Q4H PO Last administered on 09:16; Start 08/30/17 at 09:00; Stop 08/31/17 at 11:07; Status DC Dexmedetomidine HCl 50 ml @ 29.9 mls/hr TITRATE IV ; Start 08/30/17 at 14:15; Stop 08/30/17 at 14:46; Status DC Dexmedetomidine HCl 200 mcg/ Sodium Chloride 50 ml @ 29.9 mls/hr TITRATE IV Last administered on 08/30/17 15:27; Start 08/30/17 at 15:00; Stop 08/30/17 at 16:42; Status DC Dexmedetomidine HCl 1000 mcg/ Sodium Chloride 250 ml @ 29.9 mls/hr TITRATE IV Last administered on 08/30/17 17:58; Start 08/30/17 at 16:45; Stop 08/31/17 at 06:14; Status DC Propofol 100 ml @ 14.352 mls/ hr TITRATE PRN IV SEDATION Last administered on 09/10/17 09:59; Start 08/31/17 at 00:30; Stop 09/11/17 at 10:20; Status DC Piperacillin Sod/ Tazobactam Sod 100 ml @ 200 mls/hr Q6HR IV Last administered on 09/01/17 13:02; Start 08/31/17 at 06:00; Stop 09/01/17 at 14 :52; Status DC Morphine Sulfate (Morphine Inj) 10 mg ONCE ONCE IV PUSH Last administered on 08/31/17 06:31; Start 08/31/17 at 06:30; Stop 08/31/17 at 06:31; Status DC Propranolol HCl (Inderal) 10 mg ONCE ONCE PO Last administered on 08/31/17 06:30; Start 08/31/17 at 06:15; Stop 08/31/17 at 06:20; Status DC Oxycodone HCl (Roxicodone Intensol Liq) 10 mg Q4H PO Last administered on 09:17; Start 08/31/17 at 13:00; Stop 09/11/17 at 10:20; Status DC Propranolol HCl (Inderal) 10 mg Q6HR PO Last administered on 09/11/17 05:37; Start 08/31/17 at 12:00; Stop 09/11/17 at 10:20; Status DC Quetiapine Fumarate (SEROquel) 100 mg Q8HR PO Last administered on 09/11/17 05 :37; Start 08/31/17 at 11:00; Stop 09/11/17 at 10:20; Status DC Haloperidol Lactate (Haldol Inj) 5 mg Q4H PRN IV agitation Last administered on 09/12/17 23:04; Start 08/31/17 at 11:00; Stop 09/25/17 at 09:30; Status DC Magnesium Sulfate/ Dextrose 100 ml @ 100 mls/hr Q1H IV Last administered on 12:22; Start 08/31/17 at 12:00; Stop 08/31/17 at 13:00; Status DC Bisacodyl (Dulcolax Supp) 10 mg DAILY RECTAL Last administered on 08/31/17 11 :58; Start 08/31/17 at 12:00; Stop 09/25/17 at 09:30; Status DC Polyethylene Glycol (Miralax) 17 gm BID PO Last administered on 09/20/17 09: 26; Start 08/31/17 at 12:00; Stop 09/25/17 at 09:29; Status DC Lactulose (Lactulose Liq) 30 ml BID PO Last administered on 09/04/17 19:57; Start 08/31/17 at 12:00; Stop 09/25/17 at 09:30; Status DC Senna/Docusate Sodium (Melina-Colace) 1 tab BID PO Last administered on 09:14; Start 08/31/17 at 12:00; Stop 09/25/17 at 09:29; Status DC Magnesium Citrate (Citroma Liq) 300 ml ONCE ONCE PO Last administered on 08/31 11:57; Start 08/31/17 at 12:00; Stop 08/31/17 at 12:01; Status DC Rocuronium Brilliant (Zemuron Inj) 50 mg STK-MED ONCE .ROUTE Last administered on 08/31/17 14:36; Start 08/31/17 at 14:36; Stop 08/31/17 at 14:37; Status DC Calcium Acetate (Phoslo) 667 mg TID PO Last administered on 09/08/17 10:38; Start 08/31/17 at 18:00; Stop 09/08/17 at 11:02; Status DC Rocuronium Brilliant (Zemuron Inj) 50 mg STAT ONCE IV Last administered on 08/31 16:00; Start 08/31/17 at 16:00; Stop 08/31/17 at 16:01; Status DC Lactated Ringer's 1,000 ml @ 999 mls/hr BOLUS ONCE IV Last administered on 21:12; Start 08/31/17 at 20:45; Stop 08/31/17 at 21:45; Status DC Piperacillin Sod/ Tazobactam Sod 50 ml @ 100 mls/hr Q6HR IV Last administered on 09/02/17 05:59; Start 09/01/17 at 18:00; Stop 09/02/17 at 10:45; Status DC Piperacillin Sod/ Tazobactam Sod 50 ml @ 100 mls/hr Q8HR IV Last administered on 09/11/17 05:37; Start 09/02/17 at 14:00; Stop 09/11/17 at 10:20; Status DC Nicardipine HCl 50 mg/Sodium Chloride 500 ml @ 50 mls/hr TITRATE PRN IV BLOOD PRESSURE MANAGEMENT Last administered on 09/05/17 22:00; Start 09/02/17 at 21 :15; Stop 09/11/17 at 10:25; Status DC Rocuronium Brilliant (Zemuron Inj) 50 mg STK-MED ONCE .ROUTE Last administered on 09/03/17 09:22; Start 09/03/17 at 09:22; Stop 09/03/17 at 09:23; Status DC Rocuronium Brilliant (Zemuron Inj) 50 mg NOW ONCE IV PUSH Last administered on 09/03/17 10:13; Start 09/03/17 at 10:15; Stop 09/03/17 at 10:16; Status DC Rocuronium Brilliant (Zemuron Inj) 50 mg NOW ONCE IV PUSH Last administered on 09/03/17 11:00; Start 09/03/17 at 11:00; Stop 09/03/17 at 11:01; Status DC Potassium Chloride 30 meq/ Sodium Chloride 115 ml @ 38.333 mls/ hr ONCE ONCE IV-CENTRAL Last administered on 09/03/17 13:36; Start 09/03/17 at 14:00; Stop 09/03/17 at 16:59; Status DC Dexamethasone Sodium Phosphate (Decadron Inj) 6 mg Q6H IV PUSH Last administered on 09/05/17 06:09; Start 09/04/17 at 13:00; Stop 09/05/17 at 11 :55; Status DC Diphenhydramine HCl (Benadryl Inj) 50 mg Q6H IV Last administered on 08:27; Start 09/04/17 at 13:00; Stop 09/07/17 at 12:59; Status DC Lorazepam (Ativan) 2 mg Q8H PO Last administered on 09/07/17 14:35; Start at 15:00; Stop 09/07/17 at 15:18; Status DC Acetaminophen 0 ml @ As Directed STK-MED ONCE IV ; Start 09/05/17 at 07:52; Stop 09/05/17 at 07:53; Status DC Insulin Detemir (Levemir Inj) 10 units Q12H SQ Last administered on 09/11/17 09:16; Start 09/05/17 at 10:00; Stop 09/11/17 at 10:21; Status DC Dexamethasone Sodium Phosphate (Decadron Inj) 4 mg Q12H IV PUSH Last administered on 09/07/17 05:28; Start 09/05/17 at 18:00; Stop 09/07/17 at 17 :59; Status DC Albuterol/ Ipratropium (Duoneb Neb) 1 ampule Q6HR NEB NEB Last administered on 09/08/17 11:05; Start 09/05/17 at 12:00; Stop 09/08/17 at 12:59; Status DC Rocuronium Brilliant (Zemuron Inj) 50 mg BOLUS STAT IV Last administered on 16:47; Start 09/05/17 at 16:37; Stop 09/05/17 at 16:38; Status DC Fluticasone Propionate (Flonase Tae Spr) 2 spray DAILY EACH NARE Last administered on 10/06/17 08:55; Start 09/05/17 at 17:00 Lactated Ringer's 1,000 ml @ 30 mls/hr Q24H PRN IV SEE LABEL COMMENTS; Start 09/05/17 at 23:00; Stop 09/08/17 at 22:59; Status DC Sodium Chloride 500 ml @ 30 mls/hr [id number] PRN IV SEE LABEL COMMENTS; Start at 23:00; Stop 09/08/17 at 22:59; Status DC Metoprolol Tartrate (Lopressor) 25 mg CELERY TIER PRN PO SEE LABEL COMMENTS; Start 09/05/17 at 23:00; Stop 09/08/17 at 22:59; Status DC Povidone Iodine (Betadine 5% Antisepsis Kit) 1 applic CELERY TIER PRN EACH NARE SEE LABEL COMMENTS; Start 09/05/17 at 23:00; Stop 09/08/17 at 22:59; Status DC Chlorhexidine Gluconate (Chlorhexidine 2% Cloth) 3 pack CELERY TIER PRN TOPICAL SEE LABEL COMMENTS; Start 09/05/17 at 23:00; Stop 09/08/17 at 22:59; Status DC Insulin Human Regular (NovoLIN R INJ) See Protocol Table ... CELERY TIER PRN SQ SEE PROTOCOL TABLE; Start 09/05/17 at 23:00; Stop 09/08/17 at 22:59; Status DC Potassium Chloride 100 ml @ 50 mls/hr ONCE ONCE IV Last administered on 09/06 10:16; Start 09/06/17 at 09:30; Stop 09/06/17 at 11:29; Status DC Clonidine (Catapres) 0.3 mg Q8HR PO Last administered on 09/25/17 05:27; Start 09/06/17 at 14:00; Stop 09/25/17 at 09:29; Status DC Clonidine (Catapres) 0.3 mg ONCE ONCE PO Last administered on 09/06/17 11:55 ; Start 09/06/17 at 11:45; Stop 09/06/17 at 11:46; Status DC Heparin Sodium (Porcine) (Heparin Inj) 5,000 units Q12HR SQ ; Start 09/06/17 at 21:00; Stop 09/06/17 at 21:00; Status DC Gelatin (Gelfoam 12 Mm/7 Mm Top) 1 foam [facility] ONCE .ROUTE Last administered on 09/07/17 09:47; Start 09/07/17 at 09:47; Stop 09/07/17 at 09:48; Status DC Silver Nitrate/ Potassium Nitrate (Silver Nitrate Applicators) 1 appl ONCE ONCE TOPICAL Last administered on 09/07/17 10:15; Start 09/07/17 at 10:15; Stop 09/07/17 at 10:47; Status DC Potassium Chloride 100 ml @ 50 mls/hr Q2H IV Last administered on 09/07/17 12:45; Start 09/07/17 at 10:45; Stop 09/07/17 at 14:44; Status DC Desmopressin Acetate (Ddavp Tae Spr) 1 spray ONCE ONCE EACH NARE Last administered on 09/07/17 15:00; Start 09/07/17 at 15:00; Stop 09/07/17 at 15 :01; Status DC Propofol (Diprivan 200 Mg/20 ml Inj) 200 mg STK-MED ONCE IV ; Start 09/06/17 at 12:00; Stop 09/07/17 at 15:10; Status DC Lorazepam (Ativan) 1 mg Q12H PO Last administered on 09/09/17 20:27; Start 09/07/17 at 19:00; Stop 09/11/17 at 10:25; Status DC Gelatin (Gelfoam 12 Mm/7 Mm Top) 1 foam Q2HR PRN TOPICAL if still bleeding from peg Last administered on 09/08/17 08:00; Start 09/07/17 at 19:45 Potassium Chloride 100 ml @ 50 mls/hr Q2H IV Last administered on 09/08/17 11:59; Start 09/08/17 at 09:00; Stop 09/08/17 at 12:59; Status DC Potassium Chloride (KCl) 40 meq ONCE ONCE PO ; Start 09/08/17 at 09:00; Stop 09/08/17 at 12:05; Status DC Potassium Chloride (KCl Powder) 40 meq ONCE ONCE PEG Last administered on 12:15; Start 09/08/17 at 12:15; Stop 09/08/17 at 12:21; Status DC Midazolam HCl (Versed Inj) 10 mg ONCE ONCE IV PUSH ; Start 09/08/17 at 13:00; Stop 09/08/17 at 13:41; Status DC Sodium Chloride 1,000 ml @ 999 mls/hr BOLUS ONCE IV Last administered on 13:00; Start 09/08/17 at 13:00; Stop 09/08/17 at 14:00; Status DC Rocuronium Brilliant (Zemuron Inj) 100 mg BOLUS ONCE IV ; Start 09/08/17 at 13: 00; Stop 09/08/17 at 13:44; Status DC Albuterol/ Ipratropium (Duoneb Neb) 1 ampule Q6HR NEB NEB Last administered on 09/12/17 15:34; Start 09/08/17 at 16:00; Stop 09/12/17 at 15:59; Status DC Midazolam HCl (Versed Inj) 10 mg STK-MED ONCE .ROUTE Last administered on 09/08 13:39; Start 09/08/17 at 13:12; Stop 09/08/17 at 13:13; Status DC Rocuronium Brilliant (Zemuron Inj) 100 mg STK-MED ONCE .ROUTE Last administered on 09/08/17 13:12; Start 09/08/17 at 13:12; Stop 09/08/17 at 13:13; Status DC Midazolam HCl (Versed Inj) 5 mg STK-MED ONCE .ROUTE Last administered on 13:52; Start 09/08/17 at 13:44; Stop 09/08/17 at 13:45; Status DC Midazolam HCl (Versed Inj) 5 mg STK-MED ONCE .ROUTE Last administered on 13:52; Start 09/08/17 at 13:49; Stop 09/08/17 at 13:50; Status DC Potassium Bicarb/ Potassium Chloride (K-Lyte Cl Eff) 25 meq ONCE ONCE PO Last administered on 09/09/17 11:15; Start 09/09/17 at 11:00; Stop 09/09/17 at 11:03; Status DC Metoclopramide HCl (Reglan Inj) 5 mg Q8HR IV PUSH Last administered on 22:55; Start 09/09/17 at 22:00; Stop 09/11/17 at 10:25; Status DC Potassium Chloride 100 ml @ 50 mls/hr Q2H IV Last administered on 09/10/17 16 :01; Start 09/10/17 at 13:00; Stop 09/10/17 at 16:59; Status DC Insulin Detemir (Levemir Inj) 12 units Q12H SQ Last administered on 09/17/17 10:42; Start 09/11/17 at 22:00; Stop 09/17/17 at 15:27; Status DC Oxycodone HCl (Roxicodone Intensol Liq) 5 mg Q4H PO Last administered on 08:28; Start 09/11/17 at 13:00; Stop 09/17/17 at 12:47; Status DC Propranolol HCl (Inderal) 30 mg Q6HR PO Last administered on 09/17/17 04:23; Start 09/11/17 at 12:00; Stop 09/17/17 at 12:47; Status DC Quetiapine Fumarate (SEROquel) 50 mg Q8HR PO Last administered on 09/12/17 21: 37; Start 09/11/17 at 14:00; Stop 09/25/17 at 09:29; Status DC Modafinil (Provigil) 200 mg DAILY PO Last administered on 09/12/17 09:07; Start 09/11/17 at 12:00; Stop 09/25/17 at 09:30; Status DC Water (Free Water) VOLUME: 200 ML Q4HR G-TUBE Last administered on 09/18/17 08 :00; Start 09/11/17 at 12:00; Stop 09/18/17 at 11:53; Status DC Famotidine (Pepcid) 10 mg BID NG Last administered on 09/23/17 20:42; Start 09/11/17 at 21:00; Stop 09/24/17 at 09:10; Status DC Heparin Sodium (Porcine) (Heparin Inj) 5,000 units Q12HR SQ Last administered on 09/28/17 08:20; Start 09/11/17 at 21:00; Status Future Hold Lorazepam (Ativan Inj) 1 mg ONCE ONCE IV PUSH Last administered on 09/13/17 02:57; Start 09/13/17 at 02:45; Stop 09/13/17 at 02:46; Status DC Pharmacy Profile Note 0 ml @ 0 mls/hr UNSCH OTHER ; Start 09/13/17 at 02:45; Stop 09/17/17 at 10:11; Status DC Piperacillin Sod/ Tazobactam Sod 50 ml @ 100 mls/hr Q6H IV Last administered on 09/19/17 20:26; Start 09/13/17 at 03:00; Stop 09/19/17 at 23:00; Status DC Nicardipine HCl 25 mg/Sodium Chloride 250 ml @ 50 mls/hr TITRATE PRN IV Blood pressure management Last administered on 09/17/17 04:57; Start 09/13/17 at 02: 45; Stop 09/17/17 at 12:47; Status DC Dantrolene Sodium (Dantrium Inj) 70 mg ONCE ONCE IV Last administered on 03:55; Start 09/13/17 at 03:00; Stop 09/13/17 at 03:01; Status DC Vancomycin HCl 2000 mg/Sodium Chloride 520 ml @ 250 mls/hr ONCE ONCE IV Last administered on 09/13/17 05:52; Start 09/13/17 at 04:00; Stop 09/13/17 at 06:04 ; Status DC Vancomycin HCl 2500 mg/Sodium Chloride 525 ml @ 250 mls/hr ONCE ONCE IV Last administered on 09/14/17 12:29; Start 09/14/17 at 12:00; Stop 09/14/17 at 14:05 ; Status DC Potassium Chloride 100 ml @ 50 mls/hr Q2H IV Last administered on 09/15/17 10 :22; Start 09/15/17 at 08:15; Stop 09/15/17 at 12:14; Status DC Dexamethasone Sodium Phosphate (Decadron Inj) 6 mg Q6HR IV PUSH Last administered on 09/17/17 04:24; Start 09/15/17 at 14:15; Stop 09/17/17 at 12:35 ; Status DC Diphenhydramine HCl (Benadryl Inj) 25 mg Q6H IV PUSH Last administered on 08:06; Start 09/15/17 at 15:00; Stop 09/18/17 at 14:59; Status DC Lidocaine HCl (Lidocaine Pf 2% Neb) 1 ml Q6HR NEB PRN NEB cough/bronchial irritation; Start 09/16/17 at 11:30 Vancomycin HCl 1500 mg/Sodium Chloride 515 ml @ 257.5 mls/ hr ONCE ONCE IV Last administered on 09/16/17 17:07; Start 09/16/17 at 15:00; Stop 09/16/17 at 16:59; Status DC Insulin Human Regular (NovoLIN R SUPPLEMENTAL SCALE) 5 ONCE ONCE SQ Last administered on 09/16/17 18:14; Start 09/16/17 at 18:00; Stop 09/16/17 at 18:01 ; Status DC Labetalol HCl (Trandate) 300 mg Q8HR PEG Last administered on 09/25/17 05:26 ; Start 09/17/17 at 14:00; Stop 09/25/17 at 09:31; Status DC Labetalol HCl (Trandate) 300 mg NOW ONCE PEG Last administered on 09/17/17 04 :23; Start 09/17/17 at 04:15; Stop 09/17/17 at 04:16; Status DC Dexamethasone Sodium Phosphate (Decadron Inj) 6 mg Q12HR IV PUSH Last administered on 09/20/17 09:26; Start 09/17/17 at 21:00; Stop 09/20/17 at 20: 59; Status DC Albuterol/ Ipratropium (Duoneb Neb) 1 ampule Q6HR NEB INH Last administered on 09/21/17 08:25; Start 09/17/17 at 16:00; Stop 09/21/17 at 15:59; Status DC Oxycodone HCl (Roxicodone Intensol Liq) 5 mg Q6H PO Last administered on 08:05; Start 09/17/17 at 15:00; Stop 09/18/17 at 12:04; Status DC Propranolol HCl (Inderal) 40 mg Q6HR PO Last administered on 09/25/17 05:26; Start 09/17/17 at 18:00; Stop 09/25/17 at 09:29; Status DC Insulin Detemir (Levemir Inj) 15 units Q12H SQ Last administered on 09/18/17 09:49; Start 09/17/17 at 22:00; Stop 09/18/17 at 11:53; Status DC Water (Free Water) 300 ml Q4HR G-TUBE Last administered on 10/06/17 11:28; Start 09/18/17 at 12:00 Insulin Detemir (Levemir Inj) 18 units Q12H SQ Last administered on 09/18/17 20:09; Start 09/18/17 at 22:00; Stop 09/19/17 at 08:52; Status DC Dextrose (D50w (Vial) Inj) 25 ml UNSCH PRN IV PUSH HYPOGLYCEMIA-SEE COMMENTS; Start 09/18/17 at 12:00 Insulin Human Regular (NovoLIN R SUPPLEMENTAL SCALE) 1 Q4HR SQ Last administered on 09/25/17 04:09; Start 09/18/17 at 12:00; Stop 09/25/17 at 09: 28; Status DC Oxycodone HCl (Roxicodone Intensol Liq) 5 mg Q6H PRN PO pain 6-10 Last administered on 09/18/17 22:56; Start 09/18/17 at 15:00; Stop 09/25/17 at 09: 29; Status DC Hydralazine HCl (Apresoline) 50 mg Q8HR PO Last administered on 09/19/17 05: 12; Start 09/18/17 at 14:00; Stop 09/19/17 at 08:52; Status DC Insulin Detemir (Levemir Inj) 20 units Q12H SQ Last administered on 10/06/17 08:55; Start 09/19/17 at 10:00 Hydralazine HCl (Apresoline) 100 mg Q8HR PO Last administered on 09/25/17 05: 31; Start 09/19/17 at 14:00; Stop 09/25/17 at 09:29; Status DC Dextrose 1,000 ml @ 42 mls/hr [id number] IV Last administered on 09/20/17 09:25 ; Start 09/19/17 at 08:45; Stop 09/20/17 at 11:39; Status DC Sodium Chloride 38.5 meq/Sterile Water 1,009.625 ml @ 42 mls/hr Q24H IV Last administered on 09/25/17 06:01; Start 09/20/17 at 13:00; Stop 09/25/17 at 09 :24; Status DC Acetaminophen 0 ml @ As Directed STK-MED ONCE IV ; Start 09/21/17 at 09:42; Stop 09/21/17 at 09:43; Status DC Hydromorphone HCl (Dilaudid Pf Inj) 2 mg STK-MED ONCE .ROUTE ; Start 09/21/17 at 09:43; Stop 09/21/17 at 09:44; Status DC Sodium Polystyrene Sulfonate (Kayexalate Liq) 30 gm Q2HR PO Last administered on 09/21/17 19:53; Start 09/21/17 at 16:00; Stop 09/21/17 at 21:00; Status DC Famotidine (Pepcid) 20 mg BID NG Last administered on 10/06/17 08:55; Start 09/24/17 at 09:30 Morphine Sulfate (Morphine Inj) 2 mg Q2H PRN IV PUSH breakthru pain; Start at 16:30 Metoprolol Tartrate (Lopressor) 25 mg Q8H PO Last administered on 09/25/17 05 :25; Start 09/25/17 at 05:00; Stop 09/25/17 at 09:29; Status DC Potassium Bicarb/ Potassium Chloride (K-Lyte Cl Eff) 50 meq ONCE ONCE PO Last administered on 09/25/17 05:25; Start 09/25/17 at 04:30; Stop 09/25/17 at 04:31; Status DC Sodium Chloride 1,000 ml @ 42 mls/hr [id number] IV ; Start 09/25/17 at 10:00; Stop 09/25/17 at 10:00; Status DC Glucagon (Glucagon Inj) 1 mg UNSCH PRN OTHER HYPOGLYCEMIA-SEE COMMENTS; Start 09/25/17 at 09:30 Insulin Aspart (NovoLOG SUPPLEMENTAL SCALE) 1 Q6H SQ Last administered on 10/06 13:29; Start 09/25/17 at 12:00 Acetaminophen (Tylenol) 650 mg Q6H PRN G-TUBE PAIN 1-5 AND/OR FEVER >101F Last administered on 09/29/17 01:17; Start 09/25/17 at 12:45 Amlodipine Besylate (Norvasc) 10 mg DAILY G-TUBE Last administered on 08:55; Start 09/26/17 at 09:00 Atorvastatin Calcium (Lipitor) 40 mg HS [id number] Last administered on 20:13; Start 09/25/17 at 21:00 Clonidine (Catapres) 0.3 mg Q8HR G-TUBE Last administered on 10/06/17 13:32; Start 09/25/17 at 14:00 Senna/Docusate Sodium (Melina-Colace) 1 tab BID G-TUBE Last administered on 10/06 08:55; Start 09/25/17 at 21:00 Hydralazine HCl (Apresoline) 100 mg Q8HR G-TUBE Last administered on 13:32; Start 09/25/17 at 14:00 Metoprolol Tartrate (Lopressor) 25 mg Q8H G-TUBE ; Start 09/25/17 at 13:00; Stop 09/25/17 at 13:00; Status DC Oxycodone HCl (Roxicodone Intensol Liq) 5 mg Q6H PRN G-TUBE pain 6-10 Last administered on 09/25/17 20:48; Start 09/25/17 at 15:00 Polyethylene Glycol (Miralax) 17 gm BID G-TUBE Last administered on 10/06/17 08:55; Start 09/25/17 at 21:00 Propranolol HCl (Inderal) 40 mg Q6HR G-TUBE Last administered on 10/06/17 11: 34; Start 09/25/17 at 12:00 Quetiapine Fumarate (SEROquel) 50 mg Q8HR G-TUBE Last administered on 13:32; Start 09/25/17 at 14:00 Albuterol Sulfate (Albuterol Neb) 2.5 mg Q2HR NEB PRN NEB sob/wheeze Last administered on 09/29/17 00:45; Start 09/25/17 at 13:30 Cefuroxime Axetil (Ceftin) 500 mg Q12HR PO Last administered on 10/03/17 09: 03; Start 09/26/17 at 11:15; Stop 10/03/17 at 11:14; Status DC Sodium Chloride 250 ml @ 15 mls/hr ONCE ONCE IV ; Start 09/28/17 at 10:15; Stop 09/28/17 at 16:53; Status DC A/P Problem List: (1) Intracranial hemorrhage ICD Code: I62.9 - Nontraumatic intracranial hemorrhage, unspecified Status: Acute Assessment and Plan Assessment and Plan A/P Acute encephalopathy - improving. Left Thalamic Hemorrhage Intracerebral Hemorrhage - Repeat CT of the head showed improving bleed - Neurosurgery follow-up appreciated; stable for dc to SNF per neurosurgery. - Continue rehabilitation efforts with PT, OT, speech - On Seroquel to control agitated delirium. Roxicodone as needed for pain Anemia likely due to chronic disease. H/H fairly stable. will monitor periodically. Healthcare associated pneumonia finished the course of antibiotic. UTI: treated. Respiratory failure s/p trach - Tolerating T piece - CT of the chest 09/13/17 -LLL infiltrate. Repeat chest x-ray on 09/26/17 shows stable left lower lobe consolidation - continue neb treatment. -Patient had angioedema, source unclear and was seen by ENT. He was treated with steroids. Per ENT, expect slow improvement. This is resolving. -Appreciate pulmonology following for trach management Hyperglycemia - persistent. - Continue Levemir 20 units SQ q12h - Continue sliding scale insulin with Accu-Cheks. - hemoglobin A1c 9.1. Hypertension - Intermittent hypertension now well controlled - Continue clonidine, amlodipine and propranolol - Continue hydralazine. Nutrition status: - Status post PEG tube continue tube feeds - Having bowel movements - Continue Free water Acute kidney injury, most likely has CKD per nephrology: Renal function stabilized. - monitor renal function periodically. Physical deconditioning/right sided hemiparesis - OOB to stretcher chair daily - PT/OT following PROPH: - SCD's. Pepcid for GI prophylaxis Discharge Planning dc planning to SNF in progress. Discharge Planning Await case management ability to find SNF Kalen Rice DO Oct 06, 2017 13:55
--- NOTE | 2017-10-06 15:29 | HHI.PR ---
Subjective Remarks 46 YOAA male with ICH,RF,Trach Moves left ext Looks around no fever has thick secretions, requires suction no New complaint Objective Vital Signs Vital Signs Date Time Temp Pulse Resp B/P (MAP) Pulse Ox O2 Delivery O2 Flow Rate FiO2 10/06/17 11:40 96 T-piece 28 10/06/17 08:11 98.5 76 18 130/72 (91) 99 10/06/17 08:00 79 10/06/17 08:00 T-Piece 6.00 28 10/06/17 04:00 98.5 81 20 155/86 (109) 100 10/06/17 03:44 81 10/06/17 00:00 98.5 86 20 136/70 (92) 95 10/05/17 23:42 83 10/05/17 20:31 T-Piece 6.00 28 10/05/17 20:04 99.5 80 18 148/87 (107) 97 10/05/17 19:53 83 10/05/17 16:15 84 10/05/17 16:00 100.5 87 20 130/68 (88) 97 I/O 10/05/17 10/05/17 10/05/17 10/06/17 10/06/17 10/06/17 07:00 15:00 23:00 07:00 15:00 23:00 Intake Total 1600 ml 0 ml 463 ml Output Total 900 ml 1500 ml 450 ml Balance 700 ml -1500 ml 13 ml Intake Oral 0 ml 0 ml 0 ml Tube Feeding 700 ml 463 ml Tube Irrigant 900 ml Output Urine Total 900 ml 1500 ml 450 ml # Bowel Movements 1 0 Result Diagram: 10/04/1781810/04/17818 Objective Remarks GENERAL: WBWN AA male, NAD SKIN: Warm and dry. HEAD: Normocephalic. EYES: No scleral icterus. No injection or drainage. NECK: Supple, trachea midline. No JVD or lymphadenopathy. trach CARDIOVASCULAR: Regular rate and rhythm without murmurs, gallops, or rubs. RESPIRATORY: Breath sounds equal bilaterally. No accessory muscle use. GASTROINTESTINAL: Abdomen soft, non-tender, nondistended. MUSCULOSKELETAL: No cyanosis, or edema. BACK: Nontender without obvious deformity. No CVA tenderness. A/P Assessment and Plan Resp failure S/P Trach HTN ICH, right side flacid Pn PLAN Trach care Aerosol nebs Cont Abx Tube feeding Suction prn Tried to call daughter Shannan at listed number, no responce Will wean trach as secretions decrease. Jesus Villar MD Oct 06, 2017 15:29
[2017-10-06] MEDS: ATORVASTATIN 40 MG TAB DOBHOFF SCH (22:05)
[2017-10-07] VITALS (11 sets, daily range): BP systolic 121–145; BP diastolic 68–89; PULSE 72–82; RESP 18–21; TEMP 98.1–99.1; O2SAT 94–99
[2017-10-07] MEDS: PROPRANOLOL HCL 40 MG TAB G-TUBE SCH ×4 (00:24→17:39)
[2017-10-07] MEDS: INSULIN ASPART SUPPLEMENTAL SCALE SQ SCH ×4 (00:25→17:39)
[2017-10-07] MEDS: FREE WATER G-TUBE SCH ×6 (00:25→20:00)
[2017-10-07] MEDS: CHLORHEXIDINE GLUCONATE 2 % 1 PACK (2 CLOTHS) TOP SCH (03:36)
[2017-10-07] MEDS: QUEtiapine FUMARATE 25 MG TAB G-TUBE SCH ×3 (05:38→21:38)
[2017-10-07] MEDS: cloNIDine HCL 0.3 MG TAB G-TUBE SCH ×3 (05:38→21:38)
[2017-10-07] MEDS: hydrALAZINE HCL 100 MG TAB G-TUBE SCH ×3 (05:38→21:38)
[2017-10-07] MEDS: CHLORHEXIDINE 0.12% (ORAL KIT) 15 ML CUP MT SCH ×2 (08:37→20:00)
[2017-10-07] MEDS: FAMOTIDINE 20 MG TAB NG SCH ×2 (08:38→21:38)
[2017-10-07] MEDS: POLYETHYLENE GLYCOL 17 GM PKG G-TUBE SCH ×2 (08:39→21:00)
[2017-10-07] MEDS: FLUTICASONE PROPIONATE 50 MCG/ACT 16 GM NASAL SPRAY EACH NARE SCH (08:39)
[2017-10-07] MEDS: INSULIN DETEMIR 100 UNITS/ML VIAL SQ SCH ×2 (08:39→21:39)
[2017-10-07] MEDS: DOCUSATE SODIUM 50 MG/SENNA 8.6 MG TAB G-TUBE SCH ×2 (08:39→21:00)
--- NOTE | 2017-10-07 14:17 | HHI.PR ---
Subjective Remarks 10-06 NO NEW COMPLAINTS AWAITS PLACEMENT WORKING WITH PT AND OT REMAINS FLACCID ON THE RIGHT SIDE DW RN AND PT AND CM 10-07 CONTINUE TO MONITOR AWAIT SAFE PLACEMENT FLACCID ON RIGHT SIDE Objective Vitals Vital Signs Date Time Temp Pulse Resp B/P (MAP) Pulse Ox O2 Delivery O2 Flow Rate FiO2 10/07/17 12:08 98.9 73 19 144/89 (107) 98 10/07/17 09:43 98 T-piece 10/07/17 08:08 98.3 82 19 138/68 (91) 94 10/07/17 04:00 98.1 73 20 137/80 (99) 95 10/07/17 03:42 72 10/07/17 00:00 98.7 77 21 138/74 (95) 98 10/07/17 00:00 T-Piece 6.00 10/06/17 23:47 75 10/06/17 20:00 T-Piece 6.00 28 10/06/17 20:00 98.5 75 20 145/87 (106) 100 10/06/17 19:44 77 10/06/17 16:11 98.6 76 18 136/74 (94) 98 I/O 10/06/17 10/06/17 10/06/17 10/07/17 10/07/17 10/07/17 07:00 15:00 23:00 07:00 15:00 23:00 Intake Total 463 ml 0 ml 1985 ml Output Total 450 ml 900 ml 1200 ml Balance 13 ml -900 ml 785 ml Intake Oral 0 ml 0 ml 0 ml Tube Feeding 463 ml 1085 ml Other 900 ml Output Urine Total 450 ml 900 ml 1200 ml # Bowel Movements 0 2 2 Result Diagram: 10/04/1719 10/04/1719 Imaging Last Impressions Chest X-Ray 09/26/17 0000 Signed Impressions: Service Date/Time: Tuesday, September 26, 2017 09:45 - CONCLUSION: Stable examination with left basilar consolidation/effusion. Reyes Guzman MD Maxillofacial CT 09/16/17 0000 Signed Impressions: Service Date/Time: September 01:03 - CONCLUSION: 1. Evidence of acute pansinusitis. 2. Opacification of multiple bilateral mastoid air cells most characteristic of mastoiditis. 3. Mildly prominent cervical chain nodes which may be reactive. Angelo Conn MD Upper Extremity Ultrasound 09/15/17 0000 Signed Impressions: Service Date/Time: Friday, September 15, 2017 17:14 - CONCLUSION: Occlusive thrombus within the left cephalic vein and nonocclusive thrombus within the right cephalic vein. Ric Jack MD Lower Extremity Ultrasound 09/15/17 0000 Signed Impressions: Service Date/Time: Friday, September 15, 2017 16:58 - CONCLUSION: No evidence of DVT within the lower extremities. Ric Jack MD Head CT 09/13/17 0800 Signed Impressions: Service Date/Time: Wednesday, September 13, 2017 09:17 - CONCLUSION: 1. Resolving left basal ganglia hematoma Natan Lagos MD Chest CT 09/13/17 0000 Signed Impressions: Service Date/Time: Wednesday, September 13, 2017 09:28 - CONCLUSION: 1. Bibasilar and left lingular dependent atelectatic changes. Lungs are otherwise clear. 2. Tracheostomy tube with the tip probably positioned above the connie. 3. Compensated cardiomegaly. Reyes Guzman MD Abdomen/Pelvis CT 09/13/17 0000 Signed Impressions: Service Date/Time: Wednesday, September 13, 2017 09:28 - CONCLUSION: 1. There is some stranding in the retroperitoneal perivascular tissues around the distal aorta extending into the bifurcation with a regional borderline lymph nodes. Findings are characteristic of a nonspecific inflammatory process. Findings could represent early retroperitoneal fibrosis.. 2. Urinary bladder is decompressed with some mural thickening in pericystic inflammatory changes possibly representing a chronic cystitis. Nondependent air could be associated with a recent catheterization/instrumentation. 3. Small umbilical and right inguinal hernias only contain fat. 4. Bilateral dependent basilar and left lingular atelectatic changes. Heart size is borderline prominent. 5. Otherwise , bowel is intact without obstruction to explain abdominal distention Reyes Guzman MD Abdomen X-Ray 09/10/17 0600 Signed Impressions: Service Date/Time: Sunday, September 10, 2017 03:56 - CONCLUSION: No significant abnormality is identified. There is mild distention of the colon but there are no findings to suggest bowel obstruction or significant ileus. Ignacio Underwood MD Liver Ultrasound 09/07/17 0000 Signed Impressions: Service Date/Time: Thursday, September 07, 2017 12:37 - CONCLUSION: 1. Unremarkable sonographic appearance of the liver. No evidence for hepatic volume loss or intrahepatic ductal dilatation. 2. No sonographic evidence for cholelithiasis or acute cholecystitis. 3. Mild increased right renal echogenicity may reflect medical renal disease. 4. Small bilateral pleural effusions. 5. Pancreas and inferior pole of the right kidney are obscured by bowel gas and therefore not evaluated. Darrell Robles MD Renal Ultrasound 08/31/17 0000 Signed Impressions: Service Date/Time: Thursday, August 31, 2017 17:42 - CONCLUSION: 1. No evidence of hydronephrosis on either side. 2. Solitary linear echogenic focus in the upper pole parenchyma of the right kidney has similar features to prior examination in January 2017 and possibly represents a calcification. David Snell MD Neck CTA 08/28/17 2347 Signed Impressions: Service Date/Time: Tuesday, August 29, 2017 00:13 - CONCLUSION: Negative carotid CTA. David Snell MD Head CTA 08/28/17 2347 Signed Impressions: Service Date/Time: Tuesday, August 29, 2017 00:13 - CONCLUSION: 1. No evidence of vessel truncation or aneurysm. 2. No abnormal vessels in the region of the large left thalamic hemorrhage. David Snell MD Objective Remarks GENERAL: Awake and alert moves left side flaccid on the right side has tracheostomy in place and PEG tube in place SKIN: Warm and dry. HEAD: Atraumatic. Normocephalic. EYES: Pupils equal and round. No scleral icterus. No injection or drainage. ENT: No nasal bleeding or discharge. Mucous membranes pink and moist. NECK: Trachea midline. No JVD. Tracheostomy in place CARDIOVASCULAR: Regular rate and rhythm. S1 and S2 no S3 or S4 RESPIRATORY: No accessory muscle use.. Breath sounds equal bilaterally. Coarse breath sounds bilaterally GASTROINTESTINAL: Abdomen soft, non-tender, nondistended. Hepatic and splenic margins not palpable. PEG tube MUSCULOSKELETAL: Extremities without clubbing, cyanosis, or edema. No obvious deformities. Right side flaccid moves left side NEUROLOGICAL: Awake and alert. No obvious cranial nerve deficits. Motor grossly within normal limits. Five out of 5 muscle strength in the left arms and legs flaccid on the right. Cannot assess Normal speech due to to trach. PSYCHIATRIC: Appropriate mood and affect; insight and judgment normal cannot assess either of these due to trach. Procedures Tracheostomy and PEG placement Medications and IVs Current Medications Sodium Chloride 1,000 ml @ 70 mls/hr [id number] ONCE IV ; Start 08/28/17 at 23:47 ; Stop 08/29/17 at 14:04; Status DC Nicardipine HCl 25 mg/Sodium Chloride 250 ml @ 50 mls/hr TITRATE PRN IV Blood pressure management; Start 08/29/17 at 00:00; Stop 08/29/17 at 00:48; Status DC Propofol 100 ml @ 0 mls/hr TITRATE PRN IV SEDATION; Start 08/29/17 at 00:00; Stop 08/29/17 at 00:40; Status DC Propofol 100 ml @ As Directed STK-MED ONCE .ROUTE ; Start 08/28/17 at 23:57; Stop 08/28/17 at 23:58; Status DC Etomidate (Amidate Inj) 20 mg ONCE ONCE IVP ; Start 08/29/17 at 00:00; Stop 08/29/17 at 00:01; Status DC Succinylcholine Chloride (Quelicin Inj) 100 mg ONCE ONCE IV PUSH ; Start 08/29 at 00:00; Stop 08/29/17 at 00:01; Status DC Sodium Chloride (NS Flush) 2 ml UNSCH PRN IVF FLUSH AFTER USING IV ACCESS Last administered on 09/28/17 20:47; Start 08/29/17 at 00:00 Rocuronium Welches (Zemuron Inj) 50 mg BOLUS ONCE IV ; Start 08/29/17 at 00:15 ; Stop 08/29/17 at 00:17; Status DC Iohexol (Omnipaque 350 Inj) 100 ml STK-MED ONCE IVCONTRAST Last administered on 08/29/17 00:18; Start 08/29/17 at 00:18; Stop 08/29/17 at 00:19; Status DC Chlorhexidine Gluconate (Peridex 0.12% Liq) 15 ml BID@08,20 MT Last administered on 10/07/17 08:37; Start 08/29/17 at 08:00 Propofol 100 ml @ 3 mls/hr TITRATE PRN IV SEDATION; Start 08/29/17 at 00:45; Stop 08/29/17 at 04:17; Status DC Nicardipine HCl (Cardene Inj) 25 mg STK-MED ONCE .ROUTE ; Start 08/29/17 at 00: 36; Stop 08/29/17 at 00:37; Status DC Nicardipine HCl 25 mg/Sodium Chloride 250 ml @ 50 mls/hr TITRATE PRN IV BLOOD PRESSURE MANAGEMENT Last administered on 09/02/17 09:52; Start 08/29/17 at 00 :45; Stop 09/02/17 at 21:12; Status DC Labetalol HCl (Trandate Inj) 10 mg Q20M PRN IV PUSH SBP>140, DBP>90 Last administered on 09/19/17 02:16; Start 08/29/17 at 00:45 Amlodipine Besylate (Norvasc) 10 mg DAILY PO Last administered on 09/24/17 09 :14; Start 08/29/17 at 09:00; Stop 09/25/17 at 09:29; Status DC Lisinopril (Prinivil) 40 mg DAILY PO Last administered on 09/04/17 09:07; Start 08/29/17 at 09:00; Stop 09/04/17 at 12:18; Status DC Sodium Chloride 1,000 ml @ 75 mls/hr [id number] IV Last administered on 06:03; Start 08/29/17 at 00:43; Stop 08/31/17 at 11:07; Status DC Acetaminophen (Tylenol) 650 mg Q6H PRN PO PAIN 1-5 AND/OR FEVER >101F Last administered on 09/23/17 03:09; Start 08/29/17 at 00:45; Stop 09/25/17 at 09 :29; Status DC Morphine Sulfate (Morphine Inj) 2 mg Q2H PRN IV PUSH PAIN SCALE 6 TO 10 Last administered on 09/17/17 03:33; Start 08/29/17 at 00:45; Stop 09/24/17 at 16: 27; Status DC Pantoprazole Sodium (Protonix Inj) 40 mg DAILY IV PUSH Last administered on 09:15; Start 08/29/17 at 09:00; Stop 09/11/17 at 10:25; Status DC Ondansetron HCl (Zofran Inj) 4 mg Q6H PRN IV PUSH NAUSEA OR VOMITING Last administered on 09/11/17 14:18; Start 08/29/17 at 00:45 Albuterol/ Ipratropium (Duoneb Neb) 1 ampule Q4HR NEB PRN INH WHEEZING Last administered on 09/15/17 11:55; Start 08/29/17 at 00:45; Stop 09/17/17 at 12: 47; Status DC Miscellaneous Information 1 [id number] Last administered on 08/29/17 01:00; Start 08/29/17 at 00:45 Chlorhexidine Gluconate (Chlorhexidine 2% Cloth) 3 pack Taper DAILY@04 TOP ; Start 08/29/17 at 04:00; Stop 08/25/18 at 03:59 Chlorhexidine Gluconate (Chlorhexidine 2% Cloth) 3 pack UNSCH PRN TOP HYGIENIC CARE; Start 08/29/17 at 00:45 Senna/Docusate Sodium (Melina-Colace) 1 tab BID PO Last administered on 09:15; Start 08/29/17 at 09:00; Stop 08/31/17 at 11:08; Status DC Magnesium Hydroxide (Milk Of Magnesia Liq) 30 ml Q12H PRN PO Mild constipation ; Start 08/29/17 at 00:45; Stop 08/31/17 at 11:08; Status DC Sennosides (Senokot) 17.2 mg Q12H PRN PO Moderate constipation; Start at 00:45; Stop 08/31/17 at 11:08; Status DC Bisacodyl (Dulcolax Supp) 10 mg DAILY PRN RECTAL SEVERE CONSITIPATION; Start 08/29/17 at 00:45; Stop 08/31/17 at 11:08; Status DC Lactulose (Lactulose Liq) 30 ml DAILY PRN PO SEVERE CONSITIPATION; Start 08/29 at 00:45; Stop 08/31/17 at 11:08; Status DC Fentanyl Citrate 250 ml @ 5 mls/hr TITRATE PRN IV SEDATION Last administered on 09/11/17 06:14; Start 08/29/17 at 00:45; Stop 09/11/17 at 10:20; Status DC Fentanyl Citrate 250 ml @ As Directed STK-MED ONCE .ROUTE ; Start 08/29/17 at 01:30; Stop 08/29/17 at 04:10; Status DC Propofol 100 ml @ 3 mls/hr TITRATE PRN IV SEDATION Last administered on 07:37; Start 08/29/17 at 04:30; Stop 08/31/17 at 11:08; Status DC Rocuronium Welches (Zemuron Inj) 100 mg STAT ONCE IV Last administered on 02:00; Start 08/29/17 at 02:00; Stop 08/29/17 at 04:18; Status DC Atorvastatin Calcium (Lipitor) 40 mg HS PO Last administered on 09/24/17 20: 43; Start 08/29/17 at 21:00; Stop 09/25/17 at 09:29; Status DC Hydrochlorothiazide (Hydrodiuril) 25 mg DAILY PO Last administered on 10:37; Start 08/29/17 at 09:00; Stop 09/08/17 at 11:02; Status DC Metoprolol Tartrate (Lopressor) 100 mg BID PO Last administered on 08/31/17 09:15; Start 08/29/17 at 09:00; Stop 09/11/17 at 10:20; Status DC Clonidine (Catapres) 0.1 mg Q8HR PO Last administered on 09/06/17 04:55; Start 08/29/17 at 06:00; Stop 09/06/17 at 11:33; Status DC Sodium Chloride 1,000 ml @ 999 mls/hr Q1H1M ONCE IV Last administered on 08/29 06:10; Start 08/29/17 at 06:30; Stop 08/29/17 at 07:30; Status DC Magnesium Oxide (Mag-Ox) 800 mg UNSCH PRN PO For Magnesium 1.2 - 1.6 mg/dL; Start 08/29/17 at 13:15; Stop 08/30/17 at 15:34; Status DC Magnesium Sulfate 4 gm/Sodium Chloride 100 ml @ 50 mls/hr UNSCH PRN IV For Magnesium 0.9 - 1.1 mg/dL; Start 08/29/17 at 13:15; Stop 08/30/17 at 15:34; Status DC Magnesium Sulfate 2 gm/Sodium Chloride 100 ml @ 50 mls/hr UNSCH PRN IV For Magnesium 1.2 - 1.6 mg/dL; Start 08/29/17 at 13:15; Stop 08/30/17 at 15:34; Status DC Potassium Chloride 100 ml @ 50 mls/hr Q2H PRN IV For Potassium 2.8 - 3.2 mEq/ L Last administered on 08/29/17t 17:06; Start 08/29/17 at 13:15; Stop at 15:34; Status DC Potassium Chloride 100 ml @ 50 mls/hr Q2H PRN IV For Potassium 3.3 - 3.5 mEq/ L Last administered on 08/30/17t 06:13; Start 08/29/17 at 13:15; Stop at 15:34; Status DC Potassium Chloride 100 ml @ 50 mls/hr Q2H PRN IV For Potassium 2.8 - 3.2 mEq/L ; Start 08/29/17 at 13:15; Stop 08/30/17 at 15:34; Status DC Potassium Chloride 100 ml @ 25 mls/hr UNSCH PRN IV For Potassium 3.3 - 3.5 mEq /L; Start 08/29/17 at 13:15; Stop 08/30/17 at 15:34; Status DC Potassium Phosphate (K-Phos) 2,000 mg Q4H PRN PO For Phosphorus < 2.5 mg/dL; Start 08/29/17 at 13:15; Stop 08/30/17 at 15:34; Status DC Potassium Phosphate (K-Phos) 2,000 mg UNSCH PRN PO/TUBE SEE LABEL COMMENTS; Start 08/29/17 at 13:15; Stop 08/30/17 at 15:34; Status DC Potassium Phosphate 30 mmol/ Sodium Chloride 260 ml @ 42 mls/hr UNSCH PRN IV SEE LABEL COMMENTS; Start 08/29/17 at 13:15; Stop 08/30/17 at 15:34; Status DC Sodium Phosphate 30 mmol/Sodium Chloride 250 ml @ 42 mls/hr UNSCH PRN IV For Phosphorus < 2.5 mg/dL; Start 08/29/17 at 13:15; Stop 08/30/17 at 15:34; Status DC Dextrose (D50w (Vial) Inj) 25 ml UNSCH PRN IV PUSH HYPOGLYCEMIA-SEE COMMENTS; Start 08/30/17 at 08:15; Stop 09/18/17 at 11:53; Status DC Insulin Human Regular (NovoLIN R SUPPLEMENTAL SCALE) 1 Q6HR SQ Last administered on 09/18/17t 05:34; Start 08/30/17 at 12:00; Stop 09/18/17 at 11: 53; Status DC Magnesium Oxide (Mag-Ox) 800 mg UNSCH PRN PO For Magnesium 1.2 - 1.6 mg/dL; Start 08/30/17 at 08:15; Stop 08/31/17 at 13:02; Status DC Magnesium Sulfate 4 gm/Sodium Chloride 100 ml @ 50 mls/hr UNSCH PRN IV For Magnesium 0.9 - 1.1 mg/dL; Start 08/30/17 at 08:15; Stop 08/31/17 at 13:02; Status DC Magnesium Sulfate 2 gm/Sodium Chloride 100 ml @ 50 mls/hr UNSCH PRN IV For Magnesium 1.2 - 1.6 mg/dL; Start 08/30/17 at 08:15; Stop 08/31/17 at 13:02; Status DC Potassium Chloride 100 ml @ 50 mls/hr Q2H PRN IV For Potassium 2.8 - 3.2 mEq/L ; Start 08/30/17 at 08:15; Stop 08/31/17 at 13:02; Status DC Potassium Chloride 100 ml @ 50 mls/hr Q2H PRN IV For Potassium 3.3 - 3.5 mEq/L ; Start 08/30/17 at 08:15; Stop 08/31/17 at 13:02; Status DC Potassium Chloride 100 ml @ 50 mls/hr Q2H PRN IV For Potassium 2.8 - 3.2 mEq/L ; Start 08/30/17 at 08:15; Stop 08/31/17 at 13:02; Status DC Potassium Chloride 100 ml @ 25 mls/hr UNSCH PRN IV For Potassium 3.3 - 3.5 mEq /L; Start 08/30/17 at 08:15; Stop 08/31/17 at 13:02; Status DC Potassium Phosphate (K-Phos) 2,000 mg Q4H PRN PO For Phosphorus < 2.5 mg/dL; Start 08/30/17 at 08:15; Stop 08/31/17 at 13:02; Status DC Potassium Phosphate (K-Phos) 2,000 mg UNSCH PRN PO/TUBE SEE LABEL COMMENTS; Start 08/30/17 at 08:15; Stop 08/31/17 at 13:02; Status DC Potassium Phosphate 30 mmol/ Sodium Chloride 260 ml @ 42 mls/hr UNSCH PRN IV SEE LABEL COMMENTS; Start 08/30/17 at 08:15; Stop 08/31/17 at 13:02; Status DC Sodium Phosphate 30 mmol/Sodium Chloride 250 ml @ 42 mls/hr UNSCH PRN IV For Phosphorus < 2.5 mg/dL; Start 08/30/17 at 08:15; Stop 08/31/17 at 13:02; Status DC Hydralazine HCl (Apresoline Inj) 10 mg Q30M PRN IV PUSH sbp > 160 Last administered on 09/19/17 09:08; Start 08/30/17 at 08:15 Oxycodone HCl (Roxicodone Intensol Liq) 5 mg Q4H PO Last administered on 09:16; Start 08/30/17 at 09:00; Stop 08/31/17 at 11:07; Status DC Dexmedetomidine HCl 50 ml @ 29.9 mls/hr TITRATE IV ; Start 08/30/17 at 14:15; Stop 08/30/17 at 14:46; Status DC Dexmedetomidine HCl 200 mcg/ Sodium Chloride 50 ml @ 29.9 mls/hr TITRATE IV Last administered on 08/30/17 15:27; Start 08/30/17 at 15:00; Stop 08/30/17 at 16:42; Status DC Dexmedetomidine HCl 1000 mcg/ Sodium Chloride 250 ml @ 29.9 mls/hr TITRATE IV Last administered on 08/30/17 17:58; Start 08/30/17 at 16:45; Stop 08/31/17 at 06:14; Status DC Propofol 100 ml @ 14.352 mls/ hr TITRATE PRN IV SEDATION Last administered on 09/10/17 09:59; Start 08/31/17 at 00:30; Stop 09/11/17 at 10:20; Status DC Piperacillin Sod/ Tazobactam Sod 100 ml @ 200 mls/hr Q6HR IV Last administered on 09/01/17 13:02; Start 08/31/17 at 06:00; Stop 09/01/17 at 14 :52; Status DC Morphine Sulfate (Morphine Inj) 10 mg ONCE ONCE IV PUSH Last administered on 08/31/17 06:31; Start 08/31/17 at 06:30; Stop 08/31/17 at 06:31; Status DC Propranolol HCl (Inderal) 10 mg ONCE ONCE PO Last administered on 08/31/17 06:30; Start 08/31/17 at 06:15; Stop 08/31/17 at 06:20; Status DC Oxycodone HCl (Roxicodone Intensol Liq) 10 mg Q4H PO Last administered on 09:17; Start 08/31/17 at 13:00; Stop 09/11/17 at 10:20; Status DC Propranolol HCl (Inderal) 10 mg Q6HR PO Last administered on 09/11/17 05:37; Start 08/31/17 at 12:00; Stop 09/11/17 at 10:20; Status DC Quetiapine Fumarate (SEROquel) 100 mg Q8HR PO Last administered on 09/11/17 05 :37; Start 08/31/17 at 11:00; Stop 09/11/17 at 10:20; Status DC Haloperidol Lactate (Haldol Inj) 5 mg Q4H PRN IV agitation Last administered on 09/12/17 23:04; Start 08/31/17 at 11:00; Stop 09/25/17 at 09:30; Status DC Magnesium Sulfate/ Dextrose 100 ml @ 100 mls/hr Q1H IV Last administered on 12:22; Start 08/31/17 at 12:00; Stop 08/31/17 at 13:00; Status DC Bisacodyl (Dulcolax Supp) 10 mg DAILY RECTAL Last administered on 08/31/17 11 :58; Start 08/31/17 at 12:00; Stop 09/25/17 at 09:30; Status DC Polyethylene Glycol (Miralax) 17 gm BID PO Last administered on 09/20/17 09: 26; Start 08/31/17 at 12:00; Stop 09/25/17 at 09:29; Status DC Lactulose (Lactulose Liq) 30 ml BID PO Last administered on 09/04/17 19:57; Start 08/31/17 at 12:00; Stop 09/25/17 at 09:30; Status DC Senna/Docusate Sodium (Melina-Colace) 1 tab BID PO Last administered on 09:14; Start 08/31/17 at 12:00; Stop 09/25/17 at 09:29; Status DC Magnesium Citrate (Citroma Liq) 300 ml ONCE ONCE PO Last administered on 08/31 11:57; Start 08/31/17 at 12:00; Stop 08/31/17 at 12:01; Status DC Rocuronium Welches (Zemuron Inj) 50 mg STK-MED ONCE .ROUTE Last administered on 08/31/17 14:36; Start 08/31/17 at 14:36; Stop 08/31/17 at 14:37; Status DC Calcium Acetate (Phoslo) 667 mg TID PO Last administered on 09/08/17 10:38; Start 08/31/17 at 18:00; Stop 09/08/17 at 11:02; Status DC Rocuronium Welches (Zemuron Inj) 50 mg STAT ONCE IV Last administered on 08/31 16:00; Start 08/31/17 at 16:00; Stop 08/31/17 at 16:01; Status DC Lactated Ringer's 1,000 ml @ 999 mls/hr BOLUS ONCE IV Last administered on 21:12; Start 08/31/17 at 20:45; Stop 08/31/17 at 21:45; Status DC Piperacillin Sod/ Tazobactam Sod 50 ml @ 100 mls/hr Q6HR IV Last administered on 09/02/17 05:59; Start 09/01/17 at 18:00; Stop 09/02/17 at 10:45; Status DC Piperacillin Sod/ Tazobactam Sod 50 ml @ 100 mls/hr Q8HR IV Last administered on 09/11/17 05:37; Start 09/02/17 at 14:00; Stop 09/11/17 at 10:20; Status DC Nicardipine HCl 50 mg/Sodium Chloride 500 ml @ 50 mls/hr TITRATE PRN IV BLOOD PRESSURE MANAGEMENT Last administered on 09/05/17 22:00; Start 09/02/17 at 21 :15; Stop 09/11/17 at 10:25; Status DC Rocuronium Welches (Zemuron Inj) 50 mg STK-MED ONCE .ROUTE Last administered on 09/03/17 09:22; Start 09/03/17 at 09:22; Stop 09/03/17 at 09:23; Status DC Rocuronium Welches (Zemuron Inj) 50 mg NOW ONCE IV PUSH Last administered on 09/03/17 10:13; Start 09/03/17 at 10:15; Stop 09/03/17 at 10:16; Status DC Rocuronium Welches (Zemuron Inj) 50 mg NOW ONCE IV PUSH Last administered on 09/03/17 11:00; Start 09/03/17 at 11:00; Stop 09/03/17 at 11:01; Status DC Potassium Chloride 30 meq/ Sodium Chloride 115 ml @ 38.333 mls/ hr ONCE ONCE IV-CENTRAL Last administered on 09/03/17 13:36; Start 09/03/17 at 14:00; Stop 09/03/17 at 16:59; Status DC Dexamethasone Sodium Phosphate (Decadron Inj) 6 mg Q6H IV PUSH Last administered on 09/05/17 06:09; Start 09/04/17 at 13:00; Stop 09/05/17 at 11 :55; Status DC Diphenhydramine HCl (Benadryl Inj) 50 mg Q6H IV Last administered on 08:27; Start 09/04/17 at 13:00; Stop 09/07/17 at 12:59; Status DC Lorazepam (Ativan) 2 mg Q8H PO Last administered on 09/07/17 14:35; Start at 15:00; Stop 09/07/17 at 15:18; Status DC Acetaminophen 0 ml @ As Directed STK-MED ONCE IV ; Start 09/05/17 at 07:52; Stop 09/05/17 at 07:53; Status DC Insulin Detemir (Levemir Inj) 10 units Q12H SQ Last administered on 09/11/17 09:16; Start 09/05/17 at 10:00; Stop 09/11/17 at 10:21; Status DC Dexamethasone Sodium Phosphate (Decadron Inj) 4 mg Q12H IV PUSH Last administered on 09/07/17 05:28; Start 09/05/17 at 18:00; Stop 09/07/17 at 17 :59; Status DC Albuterol/ Ipratropium (Duoneb Neb) 1 ampule Q6HR NEB NEB Last administered on 09/08/17 11:05; Start 09/05/17 at 12:00; Stop 09/08/17 at 12:59; Status DC Rocuronium Welches (Zemuron Inj) 50 mg BOLUS STAT IV Last administered on 16:47; Start 09/05/17 at 16:37; Stop 09/05/17 at 16:38; Status DC Fluticasone Propionate (Flonase Tae Spr) 2 spray DAILY EACH NARE Last administered on 10/07/17 08:39; Start 09/05/17 at 17:00 Lactated Ringer's 1,000 ml @ 30 mls/hr Q24H PRN IV SEE LABEL COMMENTS; Start 09/05/17 at 23:00; Stop 09/08/17 at 22:59; Status DC Sodium Chloride 500 ml @ 30 mls/hr [id number] PRN IV SEE LABEL COMMENTS; Start at 23:00; Stop 09/08/17 at 22:59; Status DC Metoprolol Tartrate (Lopressor) 25 mg LACING STRING CUTTER PRN PO SEE LABEL COMMENTS; Start 09/05/17 at 23:00; Stop 09/08/17 at 22:59; Status DC Povidone Iodine (Betadine 5% Antisepsis Kit) 1 applic LACING STRING CUTTER PRN EACH NARE SEE LABEL COMMENTS; Start 09/05/17 at 23:00; Stop 09/08/17 at 22:59; Status DC Chlorhexidine Gluconate (Chlorhexidine 2% Cloth) 3 pack LACING STRING CUTTER PRN TOPICAL SEE LABEL COMMENTS; Start 09/05/17 at 23:00; Stop 09/08/17 at 22:59; Status DC Insulin Human Regular (NovoLIN R INJ) See Protocol Table ... LACING STRING CUTTER PRN SQ SEE PROTOCOL TABLE; Start 09/05/17 at 23:00; Stop 09/08/17 at 22:59; Status DC Potassium Chloride 100 ml @ 50 mls/hr ONCE ONCE IV Last administered on 09/06 10:16; Start 09/06/17 at 09:30; Stop 09/06/17 at 11:29; Status DC Clonidine (Catapres) 0.3 mg Q8HR PO Last administered on 09/25/17 05:27; Start 09/06/17 at 14:00; Stop 09/25/17 at 09:29; Status DC Clonidine (Catapres) 0.3 mg ONCE ONCE PO Last administered on 09/06/17 11:55 ; Start 09/06/17 at 11:45; Stop 09/06/17 at 11:46; Status DC Heparin Sodium (Porcine) (Heparin Inj) 5,000 units Q12HR SQ ; Start 09/06/17 at 21:00; Stop 09/06/17 at 21:00; Status DC Gelatin (Gelfoam 12 Mm/7 Mm Top) 1 foam STK-MED ONCE .ROUTE Last administered on 09/07/17 09:47; Start 09/07/17 at 09:47; Stop 09/07/17 at 09:48; Status DC Silver Nitrate/ Potassium Nitrate (Silver Nitrate Applicators) 1 appl ONCE ONCE TOPICAL Last administered on 09/07/17 10:15; Start 09/07/17 at 10:15; Stop 09/07/17 at 10:47; Status DC Potassium Chloride 100 ml @ 50 mls/hr Q2H IV Last administered on 09/07/17 12:45; Start 09/07/17 at 10:45; Stop 09/07/17 at 14:44; Status DC Desmopressin Acetate (Ddavp Tae Spr) 1 spray ONCE ONCE EACH NARE Last administered on 09/07/17 15:00; Start 09/07/17 at 15:00; Stop 09/07/17 at 15 :01; Status DC Propofol (Diprivan 200 Mg/20 ml Inj) 200 mg STK-MED ONCE IV ; Start 09/06/17 at 12:00; Stop 09/07/17 at 15:10; Status DC Lorazepam (Ativan) 1 mg Q12H PO Last administered on 09/09/17 20:27; Start 09/07/17 at 19:00; Stop 09/11/17 at 10:25; Status DC Gelatin (Gelfoam 12 Mm/7 Mm Top) 1 foam Q2HR PRN TOPICAL if still bleeding from peg Last administered on 09/08/17 08:00; Start 09/07/17 at 19:45 Potassium Chloride 100 ml @ 50 mls/hr Q2H IV Last administered on 09/08/17 11:59; Start 09/08/17 at 09:00; Stop 09/08/17 at 12:59; Status DC Potassium Chloride (KCl) 40 meq ONCE ONCE PO ; Start 09/08/17 at 09:00; Stop 09/08/17 at 12:05; Status DC Potassium Chloride (KCl Powder) 40 meq ONCE ONCE PEG Last administered on 12:15; Start 09/08/17 at 12:15; Stop 09/08/17 at 12:21; Status DC Midazolam HCl (Versed Inj) 10 mg ONCE ONCE IV PUSH ; Start 09/08/17 at 13:00; Stop 09/08/17 at 13:41; Status DC Sodium Chloride 1,000 ml @ 999 mls/hr BOLUS ONCE IV Last administered on 13:00; Start 09/08/17 at 13:00; Stop 09/08/17 at 14:00; Status DC Rocuronium Welches (Zemuron Inj) 100 mg BOLUS ONCE IV ; Start 09/08/17 at 13: 00; Stop 09/08/17 at 13:44; Status DC Albuterol/ Ipratropium (Duoneb Neb) 1 ampule Q6HR NEB NEB Last administered on 09/12/17 15:34; Start 09/08/17 at 16:00; Stop 09/12/17 at 15:59; Status DC Midazolam HCl (Versed Inj) 10 mg STK-MED ONCE .ROUTE Last administered on 09/08 13:39; Start 09/08/17 at 13:12; Stop 09/08/17 at 13:13; Status DC Rocuronium Welches (Zemuron Inj) 100 mg STK-MED ONCE .ROUTE Last administered on 09/08/17 13:12; Start 09/08/17 at 13:12; Stop 09/08/17 at 13:13; Status DC Midazolam HCl (Versed Inj) 5 mg STK-MED ONCE .ROUTE Last administered on 13:52; Start 09/08/17 at 13:44; Stop 09/08/17 at 13:45; Status DC Midazolam HCl (Versed Inj) 5 mg STK-MED ONCE .ROUTE Last administered on 13:52; Start 09/08/17 at 13:49; Stop 09/08/17 at 13:50; Status DC Potassium Bicarb/ Potassium Chloride (K-Lyte Cl Eff) 25 meq ONCE ONCE PO Last administered on 09/09/17 11:15; Start 09/09/17 at 11:00; Stop 09/09/17 at 11:03; Status DC Metoclopramide HCl (Reglan Inj) 5 mg Q8HR IV PUSH Last administered on 22:55; Start 09/09/17 at 22:00; Stop 09/11/17 at 10:25; Status DC Potassium Chloride 100 ml @ 50 mls/hr Q2H IV Last administered on 09/10/17 16 :01; Start 09/10/17 at 13:00; Stop 09/10/17 at 16:59; Status DC Insulin Detemir (Levemir Inj) 12 units Q12H SQ Last administered on 09/17/17 10:42; Start 09/11/17 at 22:00; Stop 09/17/17 at 15:27; Status DC Oxycodone HCl (Roxicodone Intensol Liq) 5 mg Q4H PO Last administered on 08:28; Start 09/11/17 at 13:00; Stop 09/17/17 at 12:47; Status DC Propranolol HCl (Inderal) 30 mg Q6HR PO Last administered on 09/17/17 04:23; Start 09/11/17 at 12:00; Stop 09/17/17 at 12:47; Status DC Quetiapine Fumarate (SEROquel) 50 mg Q8HR PO Last administered on 09/12/17 21: 37; Start 09/11/17 at 14:00; Stop 09/25/17 at 09:29; Status DC Modafinil (Provigil) 200 mg DAILY PO Last administered on 09/12/17 09:07; Start 09/11/17 at 12:00; Stop 09/25/17 at 09:30; Status DC Water (Free Water) VOLUME: 200 ML Q4HR G-TUBE Last administered on 09/18/17 08 :00; Start 09/11/17 at 12:00; Stop 09/18/17 at 11:53; Status DC Famotidine (Pepcid) 10 mg BID NG Last administered on 09/23/17 20:42; Start 09/11/17 at 21:00; Stop 09/24/17 at 09:10; Status DC Heparin Sodium (Porcine) (Heparin Inj) 5,000 units Q12HR SQ Last administered on 09/28/17 08:20; Start 09/11/17 at 21:00; Status Future Hold Lorazepam (Ativan Inj) 1 mg ONCE ONCE IV PUSH Last administered on 09/13/17 02:57; Start 09/13/17 at 02:45; Stop 09/13/17 at 02:46; Status DC Pharmacy Profile Note 0 ml @ 0 mls/hr UNSCH OTHER ; Start 09/13/17 at 02:45; Stop 09/17/17 at 10:11; Status DC Piperacillin Sod/ Tazobactam Sod 50 ml @ 100 mls/hr Q6H IV Last administered on 09/19/17 20:26; Start 09/13/17 at 03:00; Stop 09/19/17 at 23:00; Status DC Nicardipine HCl 25 mg/Sodium Chloride 250 ml @ 50 mls/hr TITRATE PRN IV Blood pressure management Last administered on 09/17/17 04:57; Start 09/13/17 at 02: 45; Stop 09/17/17 at 12:47; Status DC Dantrolene Sodium (Dantrium Inj) 70 mg ONCE ONCE IV Last administered on 03:55; Start 09/13/17 at 03:00; Stop 09/13/17 at 03:01; Status DC Vancomycin HCl 2000 mg/Sodium Chloride 520 ml @ 250 mls/hr ONCE ONCE IV Last administered on 09/13/17 05:52; Start 09/13/17 at 04:00; Stop 09/13/17 at 06:04 ; Status DC Vancomycin HCl 2500 mg/Sodium Chloride 525 ml @ 250 mls/hr ONCE ONCE IV Last administered on 09/14/17 12:29; Start 09/14/17 at 12:00; Stop 09/14/17 at 14:05 ; Status DC Potassium Chloride 100 ml @ 50 mls/hr Q2H IV Last administered on 09/15/17 10 :22; Start 09/15/17 at 08:15; Stop 09/15/17 at 12:14; Status DC Dexamethasone Sodium Phosphate (Decadron Inj) 6 mg Q6HR IV PUSH Last administered on 09/17/17 04:24; Start 09/15/17 at 14:15; Stop 09/17/17 at 12:35 ; Status DC Diphenhydramine HCl (Benadryl Inj) 25 mg Q6H IV PUSH Last administered on 08:06; Start 09/15/17 at 15:00; Stop 09/18/17 at 14:59; Status DC Lidocaine HCl (Lidocaine Pf 2% Neb) 1 ml Q6HR NEB PRN NEB cough/bronchial irritation; Start 09/16/17 at 11:30 Vancomycin HCl 1500 mg/Sodium Chloride 515 ml @ 257.5 mls/ hr ONCE ONCE IV Last administered on 09/16/17 17:07; Start 09/16/17 at 15:00; Stop 09/16/17 at 16:59; Status DC Insulin Human Regular (NovoLIN R SUPPLEMENTAL SCALE) 5 ONCE ONCE SQ Last administered on 09/16/17 18:14; Start 09/16/17 at 18:00; Stop 09/16/17 at 18:01 ; Status DC Labetalol HCl (Trandate) 300 mg Q8HR PEG Last administered on 09/25/17 05:26 ; Start 09/17/17 at 14:00; Stop 09/25/17 at 09:31; Status DC Labetalol HCl (Trandate) 300 mg NOW ONCE PEG Last administered on 09/17/17 04 :23; Start 09/17/17 at 04:15; Stop 09/17/17 at 04:16; Status DC Dexamethasone Sodium Phosphate (Decadron Inj) 6 mg Q12HR IV PUSH Last administered on 09/20/17 09:26; Start 09/17/17 at 21:00; Stop 09/20/17 at 20: 59; Status DC Albuterol/ Ipratropium (Duoneb Neb) 1 ampule Q6HR NEB INH Last administered on 09/21/17 08:25; Start 09/17/17 at 16:00; Stop 09/21/17 at 15:59; Status DC Oxycodone HCl (Roxicodone Intensol Liq) 5 mg Q6H PO Last administered on 08:05; Start 09/17/17 at 15:00; Stop 09/18/17 at 12:04; Status DC Propranolol HCl (Inderal) 40 mg Q6HR PO Last administered on 09/25/17 05:26; Start 09/17/17 at 18:00; Stop 09/25/17 at 09:29; Status DC Insulin Detemir (Levemir Inj) 15 units Q12H SQ Last administered on 09/18/17 09:49; Start 09/17/17 at 22:00; Stop 09/18/17 at 11:53; Status DC Water (Free Water) 300 ml Q4HR G-TUBE Last administered on 10/07/17 12:00; Start 09/18/17 at 12:00 Insulin Detemir (Levemir Inj) 18 units Q12H SQ Last administered on 09/18/17 20:09; Start 09/18/17 at 22:00; Stop 09/19/17 at 08:52; Status DC Dextrose (D50w (Vial) Inj) 25 ml UNSCH PRN IV PUSH HYPOGLYCEMIA-SEE COMMENTS; Start 09/18/17 at 12:00 Insulin Human Regular (NovoLIN R SUPPLEMENTAL SCALE) 1 Q4HR SQ Last administered on 09/25/17 04:09; Start 09/18/17 at 12:00; Stop 09/25/17 at 09: 28; Status DC Oxycodone HCl (Roxicodone Intensol Liq) 5 mg Q6H PRN PO pain 6-10 Last administered on 09/18/17 22:56; Start 09/18/17 at 15:00; Stop 09/25/17 at 09: 29; Status DC Hydralazine HCl (Apresoline) 50 mg Q8HR PO Last administered on 09/19/17 05: 12; Start 09/18/17 at 14:00; Stop 09/19/17 at 08:52; Status DC Insulin Detemir (Levemir Inj) 20 units Q12H SQ Last administered on 10/07/17 08:39; Start 09/19/17 at 10:00 Hydralazine HCl (Apresoline) 100 mg Q8HR PO Last administered on 09/25/17 05: 31; Start 09/19/17 at 14:00; Stop 09/25/17 at 09:29; Status DC Dextrose 1,000 ml @ 42 mls/hr [id number] IV Last administered on 09/20/17 09:25 ; Start 09/19/17 at 08:45; Stop 09/20/17 at 11:39; Status DC Sodium Chloride 38.5 meq/Sterile Water 1,009.625 ml @ 42 mls/hr Q24H IV Last administered on 09/25/17 06:01; Start 09/20/17 at 13:00; Stop 09/25/17 at 09 :24; Status DC Acetaminophen 0 ml @ As Directed STK-MED ONCE IV ; Start 09/21/17 at 09:42; Stop 09/21/17 at 09:43; Status DC Hydromorphone HCl (Dilaudid Pf Inj) 2 mg STK-MED ONCE .ROUTE ; Start 09/21/17 at 09:43; Stop 09/21/17 at 09:44; Status DC Sodium Polystyrene Sulfonate (Kayexalate Liq) 30 gm Q2HR PO Last administered on 09/21/17 19:53; Start 09/21/17 at 16:00; Stop 09/21/17 at 21:00; Status DC Famotidine (Pepcid) 20 mg BID NG Last administered on 10/07/17 08:38; Start 09/24/17 at 09:30 Morphine Sulfate (Morphine Inj) 2 mg Q2H PRN IV PUSH breakthru pain; Start at 16:30 Metoprolol Tartrate (Lopressor) 25 mg Q8H PO Last administered on 09/25/17 05 :25; Start 09/25/17 at 05:00; Stop 09/25/17 at 09:29; Status DC Potassium Bicarb/ Potassium Chloride (K-Lyte Cl Eff) 50 meq ONCE ONCE PO Last administered on 09/25/17 05:25; Start 09/25/17 at 04:30; Stop 09/25/17 at 04:31; Status DC Sodium Chloride 1,000 ml @ 42 mls/hr [id number] IV ; Start 09/25/17 at 10:00; Stop 09/25/17 at 10:00; Status DC Glucagon (Glucagon Inj) 1 mg UNSCH PRN OTHER HYPOGLYCEMIA-SEE COMMENTS; Start 09/25/17 at 09:30 Insulin Aspart (NovoLOG SUPPLEMENTAL SCALE) 1 Q6H SQ Last administered on 10/07 12:00; Start 09/25/17 at 12:00 Acetaminophen (Tylenol) 650 mg Q6H PRN G-TUBE PAIN 1-5 AND/OR FEVER >101F Last administered on 09/29/17 01:17; Start 09/25/17 at 12:45 Amlodipine Besylate (Norvasc) 10 mg DAILY G-TUBE Last administered on 08:39; Start 09/26/17 at 09:00 Atorvastatin Calcium (Lipitor) 40 mg HS DOBHOFF Last administered on 22:05; Start 09/25/17 at 21:00 Clonidine (Catapres) 0.3 mg Q8HR G-TUBE Last administered on 10/07/17 05:38; Start 09/25/17 at 14:00 Senna/Docusate Sodium (Melina-Colace) 1 tab BID G-TUBE Last administered on 10/06 22:04; Start 09/25/17 at 21:00 Hydralazine HCl (Apresoline) 100 mg Q8HR G-TUBE Last administered on 05:38; Start 09/25/17 at 14:00 Metoprolol Tartrate (Lopressor) 25 mg Q8H G-TUBE ; Start 09/25/17 at 13:00; Stop 09/25/17 at 13:00; Status DC Oxycodone HCl (Roxicodone Intensol Liq) 5 mg Q6H PRN G-TUBE pain 6-10 Last administered on 09/25/17 20:48; Start 09/25/17 at 15:00 Polyethylene Glycol (Miralax) 17 gm BID G-TUBE Last administered on 10/06/17 22:06; Start 09/25/17 at 21:00 Propranolol HCl (Inderal) 40 mg Q6HR G-TUBE Last administered on 10/07/17 12: 12; Start 09/25/17 at 12:00 Quetiapine Fumarate (SEROquel) 50 mg Q8HR G-TUBE Last administered on 05:38; Start 09/25/17 at 14:00 Albuterol Sulfate (Albuterol Neb) 2.5 mg Q2HR NEB PRN NEB sob/wheeze Last administered on 09/29/17 00:45; Start 09/25/17 at 13:30 Cefuroxime Axetil (Ceftin) 500 mg Q12HR PO Last administered on 10/03/17 09: 03; Start 09/26/17 at 11:15; Stop 10/03/17 at 11:14; Status DC Sodium Chloride 250 ml @ 15 mls/hr ONCE ONCE IV ; Start 09/28/17 at 10:15; Stop 09/28/17 at 16:53; Status DC A/P Problem List: (1) Intracranial hemorrhage ICD Code: I62.9 - Nontraumatic intracranial hemorrhage, unspecified Status: Acute Assessment and Plan Assessment and Plan A/P Acute encephalopathy - improving. Left Thalamic Hemorrhage Intracerebral Hemorrhage - Repeat CT of the head showed improving bleed - Neurosurgery follow-up appreciated; stable for dc to SNF per neurosurgery. - Continue rehabilitation efforts with PT, OT, speech - On Seroquel to control agitated delirium. Roxicodone as needed for pain Anemia likely due to chronic disease. H/H fairly stable. will monitor periodically. Healthcare associated pneumonia finished the course of antibiotic. UTI: treated. Respiratory failure s/p trach - Tolerating T piece - CT of the chest 09/13/17 -LLL infiltrate. Repeat chest x-ray on 09/26/17 shows stable left lower lobe consolidation - continue neb treatment. -Patient had angioedema, source unclear and was seen by ENT. He was treated with steroids. Per ENT, expect slow improvement. This is resolving. -Appreciate pulmonology following for trach management Hyperglycemia - persistent. - Continue Levemir 20 units SQ q12h - Continue sliding scale insulin with Accu-Cheks. - hemoglobin A1c 9.1. Hypertension - Intermittent hypertension now well controlled - Continue clonidine, amlodipine and propranolol - Continue hydralazine. Nutrition status: - Status post PEG tube continue tube feeds - Having bowel movements - Continue Free water Acute kidney injury, most likely has CKD per nephrology: Renal function stabilized. - monitor renal function periodically. Physical deconditioning/right sided hemiparesis - OOB to stretcher chair daily - PT/OT following PROPH: - SCD's. Pepcid for GI prophylaxis Discharge Planning dc planning to SNF in progress. Discharge Planning Await case management ability to find SNF Kalen Rice DO Oct 07, 2017 14:17
--- NOTE | 2017-10-07 15:35 | HHI.HCPN ---
Reason for visit a. To assist with evaluation and management of symptoms including: Pain and dyspnea. b. To assist medical decision maker(s) with: better understanding of current medical conditions; weighing benefits/burdens of medical treatment options; making medical treatment decisions. . Subjective/Interval History Palliative care follow-up for further clarifications of goals of care, family support. Patient seen in medical floor. Patient tolerating T-piece, 6 L, 28% FiO2. Patient afebrile, stable hemodynamically. Pulmonology, Dr. Galloway following. Dropping hemoglobin on 09/28/17 6.4 from 8.8, has remained stable since. Most recent hemoglobin 10/04 revealing 7.9. Speech therapy following, patient showing slow improvement in using alphabet board, mouthing words. Patient following commands with left upper and lower extremities, right-sided weakness persist. Nodding head to "yes/no" questions. Denying pain or abdominal discomfort during my visit. PT following, PT at rehabilitation recommended. Ongoing disposition planning as per shoe caser. Patient's brother at bedside, he verbalized having no questions regarding patient's care. Telephone call to patient's daughter maryjane Campbell message in voicemail. Palliative care to continue to follow-up as needed. . Family/friend interactions See interval note. . Advance Directives Living Will: Never completed Health Care Surrogate: Never completed Durable Power of Supervisor Composing Room: Never completed Advance Directive Specifics Health Care Surrogate(s): No advance directives completed as per patient's family. Patient is . As per [place] law, healthcare proxy decision making falls to the majority of patient's adult children for which he has 3 (4th child is 4 years old). Daughter Shannan, daughter Nichole and son Hadley Maddox wish to participate. . Significant change in goals: Goals of therapy remain aggressive. . Objective Vital Signs Date Time Temp Pulse Resp B/P (MAP) Pulse Ox O2 Delivery O2 Flow Rate FiO2 10/07/17 12:08 98.9 73 19 144/89 (107) 98 10/07/17 09:43 98 T-piece 28 10/07/17 08:08 98.3 82 19 138/68 (91) 94 10/07/17 04:00 98.1 73 20 137/80 (99) 95 10/07/17 03:42 72 10/07/17 00:00 98.7 77 21 138/74 (95) 98 10/07/17 00:00 T-Piece 6.00 28 10/06/17 23:47 75 10/06/17 20:00 T-Piece 6.00 28 10/06/17 20:00 98.5 75 20 145/87 (106) 100 10/06/17 19:44 77 10/06/17 16:11 98.6 76 18 136/74 (94) 98 Intake & Output 10/07/17 10/07/17 07:00 19:00 Intake Total 1985 ml Output Total 1200 ml Balance 785 ml Intake Oral 0 ml Tube Feeding 1085 ml Other 900 ml Output Urine Total 1200 ml # Bowel Movements 2 Physical Exam CONSTITUTIONAL/GENERAL: This is a male patient resting in bed in no acute distress. TUBES/LINES/DRAINS: PEG tube, tracheostomy, SCDs, urinary catheter, PIV's. SKIN: No jaundice, rashes, or lesions. No wounds seen anteriorly. Skin temperature appropriate. Not diaphoretic. HEAD: Atraumatic. Normocephalic. EYES: No scleral icterus. ENT: Hearing appears normal. Nose without bleeding or purulent drainage. Moist oral mucosa. Glossal edema, much improved. NECK: Trachea midline. Supple. CARDIOVASCULAR: Regular rate and rhythm without murmurs, gallops, or rubs. Peripheral pulses symmetric. RESPIRATORY/CHEST: Symmetric, clear breath sounds bilaterally. Trach, tolerating t-piece. GASTROINTESTINAL: Abdomen obese, large, round. Unable to appreciate hepatomegaly secondary to body habitus. Bowel sounds active. PEG tube in place. GENITOURINARY: Without palpable bladder distension. Condom catheter in place. MUSCULOSKELETAL: Extremities without clubbing, cyanosis. No mottling or clubbing. Edema to all 4 extremities. NEUROLOGICAL: tracking with eyes. right-sided weakness. Following commands with left upper and lower extremity. PSYCHIATRIC: Appears calm. . Diagnostic Tests Result Diagram: 10/04/1781810/04/17818 Procedures * 08/28/17 -endotracheal intubation * 08/31/17 -therapeutic bronchoscopy * 09/06/17 -PEG tube placement * 09/08/17 -tracheostomy . Assessment and Plan Disease Oriented Problem List: (1) Hemorrhagic stroke (2) Intracranial hemorrhage (3) Hypertensive emergency (4) Acute kidney injury (5) Acute encephalopathy Symptom Scale: (1) Dyspnea 0-10 Scale: Unable to quantify Comment: Secondary to acute respiratory failure. Status post tracheostomy, currently tolerating T-piece. (2) Pain 0-10 Scale: Unable to quantify Comment: Oxycodone [id number]. Pertinent Non-Medical Issues Psychosocial: Patient originally from [facility]. He is the youngest of 4 siblings. High school education. 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 Patient is , has 4 children. No service. Spiritual: Druze lenny. Legal: No advance directives completed as per patient's family. Ethical issues impacting care: Patient unable to participate in medical decision -making secondary to clinical condition. 3 adult children serving as healthcare proxy decision makers. . Important Contacts Daughter Shannan Matos , Daughter Nichole Matos Son Hadley Matos Ex- (mother of his children) Janet Matos . Patient's father Jem Matos . . Prognosis Mr. Matos is a 46-year-old male with a medical history significant for TIA, uncontrolled hypertension and migraines. Patient presented to ED via EMS on as stroke alert. Patient was last seen with normal neurological function approximately 3-1/2 hours prior to ED arrival. Upon ED arrival, GCS of 7, blood pressure 238/153. He subsequently had a vomiting episode requiring emergent intubation and mechanical ventilation. Head CT revealing acute hemorrhaic stroke in the right thalamus with extension of the lateral third ventricles with a shift onto the right side of 6 mm. chest x-ray revealing left lower lobe consolidation and patchy infiltrates in the central right lung. Clinical course complicated by acute encephalopathy, acute hypoxemic and hypercarbic respiratory failure and acute kidney injury. Patient remains a high risk for further complications, continue decline and . Prognosis for a meaningful recovery guarded at this time. . Code Status: Full Code Plan * CODE STATUS: FULL CODE * HEALTHCARE DECISION-MAKING: Patient currently unable to participate in medical decision-making secondary to clinical condition. Unclear if patient will regain capacity giving brain bleed. No advance directives completed as per patient's family. Patient is . As per [place] law, healthcare proxy decision making falls to the majority of patient's adult children for which he has 3 (4th child is 4 years old). Daughters Shannan and Nichole and son Hadley Cuellar All wishing to participate. * GOALS OF CARE: Goals remain aggressive including FULL CODE, patient making some neurologic improvements. * SYMPTOMS: = Dyspnea, secondary to acute respiratory failure. Patient s/p trach on 09/08/17. Currently tolerating T-piece. Pulmonology following. = Pain: Secondary to intubation, medical interventions, bedbound. Currently on oxycodone 5 mg every 6 hours. Sparing PRN need, last dose 09/25/17. Appears calm. = Bowels: MiraLAX, lactulose and Melina-Colace [id number]. Dulcolax suppository available. = Restlessness/agitation: controlled with Seroquel 50mg every 8 hours. = Debility, given acute brain bleed, prolonged hospitalization. Right-sided weakness. Participating in PT/OT. Pending discharge to rehabilitation. * Palliative care will continue to follow-up as needed for further clarifications of goals of care, provide emotional support as patient's clinical course continues to evolve. . Time Spent Total Floor Time (mins): 22 (Total time to include review medical records, physical exam, conversation with patient's brother, telephone call to patient's daughter Shannan.) >50% Counseling/Coord of Care: Yes Attestation To help prompt me to consider important information that might be impacting today's encounter and assessment, information from prior notes written by myself or my colleagues may have been "brought forward" into today's note. My signature on this note, however, is an attestation that I personally performed the exam, history, and/or decision-making noted today, and, unless otherwise indicated, the interactions with patient, family, and staff as well as the review of records all occurred today. I also attest that the listed assessment and stated plan reflect my best clinical judgment today based on the combination of historical information, prior notes, and today's exam/ interactions. When time spent is documented, it refers only to time spent today by the signer, or if indicated, combined time spent today by collaborating physician/nurse practitioner. Soniya Elliott Oct 07, 2017 15:35
--- NOTE | 2017-10-07 18:58 | HHI.PR ---
Subjective Remarks 46 YOAA male with ICH,RF,Trach Moves left ext Looks around, able to communicate Good cough efforts no fever no New complaint Objective Vital Signs Vital Signs Date Time Temp Pulse Resp B/P (MAP) Pulse Ox O2 Delivery O2 Flow Rate FiO2 10/07/17 16:08 99.0 75 19 121/78 (92) 98 10/07/17 12:08 98.9 73 19 144/89 (107) 98 10/07/17 09:43 98 T-piece 28 10/07/17 08:08 98.3 82 19 138/68 (91) 94 10/07/17 04:00 98.1 73 20 137/80 (99) 95 10/07/17 03:42 72 10/07/17 00:00 98.7 77 21 138/74 (95) 98 10/07/17 00:00 T-Piece 6.00 10/06/17 23:47 75 10/06/17 20:00 T-Piece 6.00 10/06/17 20:00 98.5 75 20 145/87 (106) 100 10/06/17 19:44 77 I/O 10/06/17 10/06/17 10/06/17 10/07/17 10/07/17 10/07/17 07:00 15:00 23:00 07:00 15:00 23:00 Intake Total 463 ml 0 ml 1985 ml 0 ml Output Total 450 ml 900 ml 1200 ml 2600 ml Balance 13 ml -900 ml 785 ml -2600 ml Intake Oral 0 ml 0 ml 0 ml 0 ml Tube Feeding 463 ml 1085 ml Other 900 ml Output Urine Total 450 ml 900 ml 1200 ml 2600 ml # Bowel Movements 0 2 2 0 Result Diagram: 10/04/1781810/04/17818 Objective Remarks GENERAL: WBWN AA male, NAD SKIN: Warm and dry. HEAD: Normocephalic. EYES: No scleral icterus. No injection or drainage. NECK: Supple, trachea midline. No JVD or lymphadenopathy. trach CARDIOVASCULAR: Regular rate and rhythm without murmurs, gallops, or rubs. RESPIRATORY: Breath sounds equal bilaterally. No accessory muscle use. GASTROINTESTINAL: Abdomen soft, non-tender, nondistended. MUSCULOSKELETAL: No cyanosis, or edema. BACK: Nontender without obvious deformity. No CVA tenderness. A/P Assessment and Plan Resp failure S/P Trach HTN ICH, right side flacid Pn PLAN Trach care Aerosol nebs Cont Abx Tube feeding Suction prn Change to Fenestrated Trach PMV trial Jesus Villar MD Oct 07, 2017 18:58
[2017-10-07] MEDS: ATORVASTATIN 40 MG TAB DOBHOFF SCH (21:38)
[2017-10-08] VITALS (13 sets, daily range): BP systolic 138–175; BP diastolic 75–94; PULSE 72–90; RESP 17–20; TEMP 98.3–100.7; O2SAT 95–99
[2017-10-08] MEDS: PROPRANOLOL HCL 40 MG TAB G-TUBE SCH ×4 (00:04→17:07)
[2017-10-08] MEDS: FREE WATER G-TUBE SCH ×7 (00:10→23:41)
[2017-10-08] MEDS: CHLORHEXIDINE GLUCONATE 2 % 1 PACK (2 CLOTHS) TOP SCH (03:25)
[2017-10-08] MEDS: INSULIN ASPART SUPPLEMENTAL SCALE SQ SCH ×5 (05:13→23:41)
[2017-10-08] MEDS: hydrALAZINE HCL 100 MG TAB G-TUBE SCH ×3 (05:14→22:26)
[2017-10-08] MEDS: QUEtiapine FUMARATE 25 MG TAB G-TUBE SCH ×3 (05:14→22:26)
[2017-10-08] MEDS: cloNIDine HCL 0.3 MG TAB G-TUBE SCH ×3 (05:14→22:26)
[2017-10-08] MEDS: CHLORHEXIDINE 0.12% (ORAL KIT) 15 ML CUP MT SCH ×2 (08:00→20:00)
[2017-10-08] MEDS: FAMOTIDINE 20 MG TAB NG SCH ×2 (08:04→22:26)
[2017-10-08] MEDS: FLUTICASONE PROPIONATE 50 MCG/ACT 16 GM NASAL SPRAY EACH NARE SCH (08:04)
[2017-10-08] MEDS: DOCUSATE SODIUM 50 MG/SENNA 8.6 MG TAB G-TUBE SCH ×2 (08:05→21:00)
[2017-10-08] MEDS: POLYETHYLENE GLYCOL 17 GM PKG G-TUBE SCH ×2 (08:05→21:00)
[2017-10-08] MEDS: INSULIN DETEMIR 100 UNITS/ML VIAL SQ SCH ×2 (09:54→22:27)
--- NOTE | 2017-10-08 12:38 | HHI.PR ---
Subjective Remarks 10-06 NO NEW COMPLAINTS AWAITS PLACEMENT WORKING WITH PT AND OT REMAINS FLACCID ON THE RIGHT SIDE DW RN AND PT AND CM 10-07 CONTINUE TO MONITOR AWAIT SAFE PLACEMENT FLACCID ON RIGHT SIDE 10-08 NEEDS SAFE PLACEMENT REMAINS FLACCID ON THE RIGHT MOVES THE LEFT Objective Vitals Vital Signs Date Time Temp Pulse Resp B/P (MAP) Pulse Ox O2 Delivery O2 Flow Rate FiO2 10/08/17 11:45 T-Piece 5.00 28 10/08/17 11:40 99 T-piece 28 10/08/17 11:00 98.8 84 20 175/88 (117) 96 10/08/17 08:00 98.3 76 20 138/75 (96) 99 10/08/17 04:00 99.0 77 18 152/90 (110) 99 10/08/17 04:00 84 10/08/17 00:52 98.5 74 18 147/87 (107) 99 10/08/17 00:00 72 10/07/17 22:10 99 T-piece 5.00 28 10/07/17 21:40 T-Piece 3.50 10/07/17 20:42 99.1 74 18 145/84 (104) 99 10/07/17 20:00 72 10/07/17 16:08 99.0 75 19 121/78 (92) 98 I/O 10/07/17 10/07/17 10/07/17 10/08/17 10/08/17 10/08/17 07:00 15:00 23:00 07:00 15:00 23:00 Intake Total 1985 ml 0 ml 733 ml Output Total 1200 ml 2600 ml 2050 ml Balance 785 ml -2600 ml -1317 ml Intake Oral 0 ml 0 ml Tube Feeding 1085 ml 433 ml Other 900 ml 300 ml Output Urine Total 1200 ml 2600 ml 2050 ml # Bowel Movements 2 0 1 Result Diagram: 10/04/17 0819 10/04/17818 Imaging Last Impressions Chest X-Ray 09/26/17 0000 Signed Impressions: Service Date/Time: Tuesday, September 26, 2017 09:45 - CONCLUSION: Stable examination with left basilar consolidation/effusion. Reyes Guzman MD Maxillofacial CT 09/16/17 0000 Signed Impressions: Service Date/Time: September 01:03 - CONCLUSION: 1. Evidence of acute pansinusitis. 2. Opacification of multiple bilateral mastoid air cells most characteristic of mastoiditis. 3. Mildly prominent cervical chain nodes which may be reactive. Angelo Conn MD Upper Extremity Ultrasound 09/15/17 0000 Signed Impressions: Service Date/Time: Friday, September 15, 2017 17:14 - CONCLUSION: Occlusive thrombus within the left cephalic vein and nonocclusive thrombus within the right cephalic vein. Ric Jack MD Lower Extremity Ultrasound 09/15/17 0000 Signed Impressions: Service Date/Time: Friday, September 15, 2017 16:58 - CONCLUSION: No evidence of DVT within the lower extremities. Ric Jack MD Head CT 09/13/17 0800 Signed Impressions: Service Date/Time: Wednesday, September 13, 2017 09:17 - CONCLUSION: 1. Resolving left basal ganglia hematoma Natan Lagos MD Chest CT 09/13/17 0000 Signed Impressions: Service Date/Time: Wednesday, September 13, 2017 09:28 - CONCLUSION: 1. Bibasilar and left lingular dependent atelectatic changes. Lungs are otherwise clear. 2. Tracheostomy tube with the tip probably positioned above the connie. 3. Compensated cardiomegaly. Reyes Guzman MD Abdomen/Pelvis CT 09/13/17 0000 Signed Impressions: Service Date/Time: Wednesday, September 13, 2017 09:28 - CONCLUSION: 1. There is some stranding in the retroperitoneal perivascular tissues around the distal aorta extending into the bifurcation with a regional borderline lymph nodes. Findings are characteristic of a nonspecific inflammatory process. Findings could represent early retroperitoneal fibrosis.. 2. Urinary bladder is decompressed with some mural thickening in pericystic inflammatory changes possibly representing a chronic cystitis. Nondependent air could be associated with a recent catheterization/instrumentation. 3. Small umbilical and right inguinal hernias only contain fat. 4. Bilateral dependent basilar and left lingular atelectatic changes. Heart size is borderline prominent. 5. Otherwise , bowel is intact without obstruction to explain abdominal distention Reyes Guzman MD Abdomen X-Ray 09/10/17 0600 Signed Impressions: Service Date/Time: Sunday, September 10, 2017 03:56 - CONCLUSION: No significant abnormality is identified. There is mild distention of the colon but there are no findings to suggest bowel obstruction or significant ileus. Ignacio Underwood MD Liver Ultrasound 09/07/17 0000 Signed Impressions: Service Date/Time: Thursday, September 07, 2017 12:37 - CONCLUSION: 1. Unremarkable sonographic appearance of the liver. No evidence for hepatic volume loss or intrahepatic ductal dilatation. 2. No sonographic evidence for cholelithiasis or acute cholecystitis. 3. Mild increased right renal echogenicity may reflect medical renal disease. 4. Small bilateral pleural effusions. 5. Pancreas and inferior pole of the right kidney are obscured by bowel gas and therefore not evaluated. Darrell Robles MD Renal Ultrasound 08/31/17 0000 Signed Impressions: Service Date/Time: Thursday, August 31, 2017 17:42 - CONCLUSION: 1. No evidence of hydronephrosis on either side. 2. Solitary linear echogenic focus in the upper pole parenchyma of the right kidney has similar features to prior examination in January 2017 and possibly represents a calcification. David Snell MD Neck CTA 08/28/177 Signed Impressions: Service Date/Time: Tuesday, August 29, 2017 00:13 - CONCLUSION: Negative carotid CTA. David Snell MD Head CTA 08/28/177 Signed Impressions: Service Date/Time: Tuesday, August 29, 2017 00:13 - CONCLUSION: 1. No evidence of vessel truncation or aneurysm. 2. No abnormal vessels in the region of the large left thalamic hemorrhage. David Snell MD Objective Remarks GENERAL: Awake and alert moves left side flaccid on the right side has tracheostomy in place and PEG tube in place SKIN: Warm and dry. HEAD: Atraumatic. Normocephalic. EYES: Pupils equal and round. No scleral icterus. No injection or drainage. ENT: No nasal bleeding or discharge. Mucous membranes pink and moist. NECK: Trachea midline. No JVD. Tracheostomy in place CARDIOVASCULAR: Regular rate and rhythm. S1 and S2 no S3 or S4 RESPIRATORY: No accessory muscle use.. Breath sounds equal bilaterally. Coarse breath sounds bilaterally GASTROINTESTINAL: Abdomen soft, non-tender, nondistended. Hepatic and splenic margins not palpable. PEG tube MUSCULOSKELETAL: Extremities without clubbing, cyanosis, or edema. No obvious deformities. Right side flaccid moves left side NEUROLOGICAL: Awake and alert. No obvious cranial nerve deficits. Motor grossly within normal limits. Five out of 5 muscle strength in the left arms and legs flaccid on the right. Cannot assess Normal speech due to to trach. PSYCHIATRIC: Appropriate mood and affect; insight and judgment normal cannot assess either of these due to trach. Procedures Tracheostomy and PEG placement Medications and IVs Current Medications Sodium Chloride 1,000 ml @ 70 mls/hr [id number] ONCE IV ; Start 08/28/17 at 23:47 ; Stop 08/29/17 at 14:04; Status DC Nicardipine HCl 25 mg/Sodium Chloride 250 ml @ 50 mls/hr TITRATE PRN IV Blood pressure management; Start 08/29/17 at 00:00; Stop 08/29/17 at 00:48; Status DC Propofol 100 ml @ 0 mls/hr TITRATE PRN IV SEDATION; Start 08/29/17 at 00:00; Stop 08/29/17 at 00:40; Status DC Propofol 100 ml @ As Directed STK-MED ONCE .ROUTE ; Start 08/28/17 at 23:57; Stop 08/28/17 at 23:58; Status DC Etomidate (Amidate Inj) 20 mg ONCE ONCE IVP ; Start 08/29/17 at 00:00; Stop 08/29/17 at 00:01; Status DC Succinylcholine Chloride (Quelicin Inj) 100 mg ONCE ONCE IV PUSH ; Start 08/29 at 00:00; Stop 08/29/17 at 00:01; Status DC Sodium Chloride (NS Flush) 2 ml UNSCH PRN IVF FLUSH AFTER USING IV ACCESS Last administered on 09/28/17t 20:47; Start 08/29/17 at 00:00 Rocuronium Marion (Zemuron Inj) 50 mg BOLUS ONCE IV ; Start 08/29/17 at 00:15 ; Stop 08/29/17 at 00:17; Status DC Iohexol (Omnipaque 350 Inj) 100 ml STK-MED ONCE IVCONTRAST Last administered on 08/29/17t 00:18; Start 08/29/17 at 00:18; Stop 08/29/17 at 00:19; Status DC Chlorhexidine Gluconate (Peridex 0.12% Liq) 15 ml BID@08,20 MT Last administered on 10/08/17 08:00; Start 08/29/17 at 08:00 Propofol 100 ml @ 3 mls/hr TITRATE PRN IV SEDATION; Start 08/29/17 at 00:45; Stop 08/29/17 at 04:17; Status DC Nicardipine HCl (Cardene Inj) 25 mg STK-MED ONCE .ROUTE ; Start 08/29/17 at 00: 36; Stop 08/29/17 at 00:37; Status DC Nicardipine HCl 25 mg/Sodium Chloride 250 ml @ 50 mls/hr TITRATE PRN IV BLOOD PRESSURE MANAGEMENT Last administered on 09/02/17 09:52; Start 08/29/17 at 00 :45; Stop 09/02/17 at 21:12; Status DC Labetalol HCl (Trandate Inj) 10 mg Q20M PRN IV PUSH SBP>140, DBP>90 Last administered on 09/19/17 02:16; Start 08/29/17 at 00:45 Amlodipine Besylate (Norvasc) 10 mg DAILY PO Last administered on 09/24/17 09 :14; Start 08/29/17 at 09:00; Stop 09/25/17 at 09:29; Status DC Lisinopril (Prinivil) 40 mg DAILY PO Last administered on 09/04/17 09:07; Start 08/29/17 at 09:00; Stop 09/04/17 at 12:18; Status DC Sodium Chloride 1,000 ml @ 75 mls/hr [id number] IV Last administered on 06:03; Start 08/29/17 at 00:43; Stop 08/31/17 at 11:07; Status DC Acetaminophen (Tylenol) 650 mg Q6H PRN PO PAIN 1-5 AND/OR FEVER >101F Last administered on 09/23/17 03:09; Start 08/29/17 at 00:45; Stop 09/25/17 at 09 :29; Status DC Morphine Sulfate (Morphine Inj) 2 mg Q2H PRN IV PUSH PAIN SCALE 6 TO 10 Last administered on 09/17/17 03:33; Start 08/29/17 at 00:45; Stop 09/24/17 at 16: 27; Status DC Pantoprazole Sodium (Protonix Inj) 40 mg DAILY IV PUSH Last administered on 09:15; Start 08/29/17 at 09:00; Stop 09/11/17 at 10:25; Status DC Ondansetron HCl (Zofran Inj) 4 mg Q6H PRN IV PUSH NAUSEA OR VOMITING Last administered on 09/11/17 14:18; Start 08/29/17 at 00:45 Albuterol/ Ipratropium (Duoneb Neb) 1 ampule Q4HR NEB PRN INH WHEEZING Last administered on 09/15/17 11:55; Start 08/29/17 at 00:45; Stop 09/17/17 at 12: 47; Status DC Miscellaneous Information 1 [id number] Last administered on 08/29/17 01:00; Start 08/29/17 at 00:45 Chlorhexidine Gluconate (Chlorhexidine 2% Cloth) 3 pack Taper DAILY@04 TOP ; Start 08/29/17 at 04:00; Stop 08/25/18 at 03:59 Chlorhexidine Gluconate (Chlorhexidine 2% Cloth) 3 pack UNSCH PRN TOP HYGIENIC CARE; Start 08/29/17 at 00:45 Senna/Docusate Sodium (Melina-Colace) 1 tab BID PO Last administered on 09:15; Start 08/29/17 at 09:00; Stop 08/31/17 at 11:08; Status DC Magnesium Hydroxide (Milk Of Magnesia Liq) 30 ml Q12H PRN PO Mild constipation ; Start 08/29/17 at 00:45; Stop 08/31/17 at 11:08; Status DC Sennosides (Senokot) 17.2 mg Q12H PRN PO Moderate constipation; Start at 00:45; Stop 08/31/17 at 11:08; Status DC Bisacodyl (Dulcolax Supp) 10 mg DAILY PRN RECTAL SEVERE CONSITIPATION; Start 08/29/17 at 00:45; Stop 08/31/17 at 11:08; Status DC Lactulose (Lactulose Liq) 30 ml DAILY PRN PO SEVERE CONSITIPATION; Start 08/29 at 00:45; Stop 08/31/17 at 11:08; Status DC Fentanyl Citrate 250 ml @ 5 mls/hr TITRATE PRN IV SEDATION Last administered on 09/11/17 06:14; Start 08/29/17 at 00:45; Stop 09/11/17 at 10:20; Status DC Fentanyl Citrate 250 ml @ As Directed STK-MED ONCE .ROUTE ; Start 08/29/17 at 01:30; Stop 08/29/17 at 04:10; Status DC Propofol 100 ml @ 3 mls/hr TITRATE PRN IV SEDATION Last administered on 07:37; Start 08/29/17 at 04:30; Stop 08/31/17 at 11:08; Status DC Rocuronium Marion (Zemuron Inj) 100 mg STAT ONCE IV Last administered on 02:00; Start 08/29/17 at 02:00; Stop 08/29/17 at 04:18; Status DC Atorvastatin Calcium (Lipitor) 40 mg HS PO Last administered on 09/24/17 20: 43; Start 08/29/17 at 21:00; Stop 09/25/17 at 09:29; Status DC Hydrochlorothiazide (Hydrodiuril) 25 mg DAILY PO Last administered on 10:37; Start 08/29/17 at 09:00; Stop 09/08/17 at 11:02; Status DC Metoprolol Tartrate (Lopressor) 100 mg BID PO Last administered on 08/31/17 09:15; Start 08/29/17 at 09:00; Stop 09/11/17 at 10:20; Status DC Clonidine (Catapres) 0.1 mg Q8HR PO Last administered on 09/06/17 04:55; Start 08/29/17 at 06:00; Stop 09/06/17 at 11:33; Status DC Sodium Chloride 1,000 ml @ 999 mls/hr Q1H1M ONCE IV Last administered on 08/29 06:10; Start 08/29/17 at 06:30; Stop 08/29/17 at 07:30; Status DC Magnesium Oxide (Mag-Ox) 800 mg UNSCH PRN PO For Magnesium 1.2 - 1.6 mg/dL; Start 08/29/17 at 13:15; Stop 08/30/17 at 15:34; Status DC Magnesium Sulfate 4 gm/Sodium Chloride 100 ml @ 50 mls/hr UNSCH PRN IV For Magnesium 0.9 - 1.1 mg/dL; Start 08/29/17 at 13:15; Stop 08/30/17 at 15:34; Status DC Magnesium Sulfate 2 gm/Sodium Chloride 100 ml @ 50 mls/hr UNSCH PRN IV For Magnesium 1.2 - 1.6 mg/dL; Start 08/29/17 at 13:15; Stop 08/30/17 at 15:34; Status DC Potassium Chloride 100 ml @ 50 mls/hr Q2H PRN IV For Potassium 2.8 - 3.2 mEq/ L Last administered on 08/29/17t 17:06; Start 08/29/17 at 13:15; Stop at 15:34; Status DC Potassium Chloride 100 ml @ 50 mls/hr Q2H PRN IV For Potassium 3.3 - 3.5 mEq/ L Last administered on 08/30/17t 06:13; Start 08/29/17 at 13:15; Stop at 15:34; Status DC Potassium Chloride 100 ml @ 50 mls/hr Q2H PRN IV For Potassium 2.8 - 3.2 mEq/L ; Start 08/29/17 at 13:15; Stop 08/30/17 at 15:34; Status DC Potassium Chloride 100 ml @ 25 mls/hr UNSCH PRN IV For Potassium 3.3 - 3.5 mEq /L; Start 08/29/17 at 13:15; Stop 08/30/17 at 15:34; Status DC Potassium Phosphate (K-Phos) 2,000 mg Q4H PRN PO For Phosphorus < 2.5 mg/dL; Start 08/29/17 at 13:15; Stop 08/30/17 at 15:34; Status DC Potassium Phosphate (K-Phos) 2,000 mg UNSCH PRN PO/TUBE SEE LABEL COMMENTS; Start 08/29/17 at 13:15; Stop 08/30/17 at 15:34; Status DC Potassium Phosphate 30 mmol/ Sodium Chloride 260 ml @ 42 mls/hr UNSCH PRN IV SEE LABEL COMMENTS; Start 08/29/17 at 13:15; Stop 08/30/17 at 15:34; Status DC Sodium Phosphate 30 mmol/Sodium Chloride 250 ml @ 42 mls/hr UNSCH PRN IV For Phosphorus < 2.5 mg/dL; Start 08/29/17 at 13:15; Stop 08/30/17 at 15:34; Status DC Dextrose (D50w (Vial) Inj) 25 ml UNSCH PRN IV PUSH HYPOGLYCEMIA-SEE COMMENTS; Start 08/30/17 at 08:15; Stop 09/18/17 at 11:53; Status DC Insulin Human Regular (NovoLIN R SUPPLEMENTAL SCALE) 1 Q6HR SQ Last administered on 09/18/17t 05:34; Start 08/30/17 at 12:00; Stop 09/18/17 at 11: 53; Status DC Magnesium Oxide (Mag-Ox) 800 mg UNSCH PRN PO For Magnesium 1.2 - 1.6 mg/dL; Start 08/30/17 at 08:15; Stop 08/31/17 at 13:02; Status DC Magnesium Sulfate 4 gm/Sodium Chloride 100 ml @ 50 mls/hr UNSCH PRN IV For Magnesium 0.9 - 1.1 mg/dL; Start 08/30/17 at 08:15; Stop 08/31/17 at 13:02; Status DC Magnesium Sulfate 2 gm/Sodium Chloride 100 ml @ 50 mls/hr UNSCH PRN IV For Magnesium 1.2 - 1.6 mg/dL; Start 08/30/17 at 08:15; Stop 08/31/17 at 13:02; Status DC Potassium Chloride 100 ml @ 50 mls/hr Q2H PRN IV For Potassium 2.8 - 3.2 mEq/L ; Start 08/30/17 at 08:15; Stop 08/31/17 at 13:02; Status DC Potassium Chloride 100 ml @ 50 mls/hr Q2H PRN IV For Potassium 3.3 - 3.5 mEq/L ; Start 08/30/17 at 08:15; Stop 08/31/17 at 13:02; Status DC Potassium Chloride 100 ml @ 50 mls/hr Q2H PRN IV For Potassium 2.8 - 3.2 mEq/L ; Start 08/30/17 at 08:15; Stop 08/31/17 at 13:02; Status DC Potassium Chloride 100 ml @ 25 mls/hr UNSCH PRN IV For Potassium 3.3 - 3.5 mEq /L; Start 08/30/17 at 08:15; Stop 08/31/17 at 13:02; Status DC Potassium Phosphate (K-Phos) 2,000 mg Q4H PRN PO For Phosphorus < 2.5 mg/dL; Start 08/30/17 at 08:15; Stop 08/31/17 at 13:02; Status DC Potassium Phosphate (K-Phos) 2,000 mg UNSCH PRN PO/TUBE SEE LABEL COMMENTS; Start 08/30/17 at 08:15; Stop 08/31/17 at 13:02; Status DC Potassium Phosphate 30 mmol/ Sodium Chloride 260 ml @ 42 mls/hr UNSCH PRN IV SEE LABEL COMMENTS; Start 08/30/17 at 08:15; Stop 08/31/17 at 13:02; Status DC Sodium Phosphate 30 mmol/Sodium Chloride 250 ml @ 42 mls/hr UNSCH PRN IV For Phosphorus < 2.5 mg/dL; Start 08/30/17 at 08:15; Stop 08/31/17 at 13:02; Status DC Hydralazine HCl (Apresoline Inj) 10 mg Q30M PRN IV PUSH sbp > 160 Last administered on 09/19/17 09:08; Start 08/30/17 at 08:15 Oxycodone HCl (Roxicodone Intensol Liq) 5 mg Q4H PO Last administered on 09:16; Start 08/30/17 at 09:00; Stop 08/31/17 at 11:07; Status DC Dexmedetomidine HCl 50 ml @ 29.9 mls/hr TITRATE IV ; Start 08/30/17 at 14:15; Stop 08/30/17 at 14:46; Status DC Dexmedetomidine HCl 200 mcg/ Sodium Chloride 50 ml @ 29.9 mls/hr TITRATE IV Last administered on 08/30/17 15:27; Start 08/30/17 at 15:00; Stop 08/30/17 at 16:42; Status DC Dexmedetomidine HCl 1000 mcg/ Sodium Chloride 250 ml @ 29.9 mls/hr TITRATE IV Last administered on 08/30/17 17:58; Start 08/30/17 at 16:45; Stop 08/31/17 at 06:14; Status DC Propofol 100 ml @ 14.352 mls/ hr TITRATE PRN IV SEDATION Last administered on 09/10/17 09:59; Start 08/31/17 at 00:30; Stop 09/11/17 at 10:20; Status DC Piperacillin Sod/ Tazobactam Sod 100 ml @ 200 mls/hr Q6HR IV Last administered on 09/01/17 13:02; Start 08/31/17 at 06:00; Stop 09/01/17 at 14 :52; Status DC Morphine Sulfate (Morphine Inj) 10 mg ONCE ONCE IV PUSH Last administered on 08/31/17 06:31; Start 08/31/17 at 06:30; Stop 08/31/17 at 06:31; Status DC Propranolol HCl (Inderal) 10 mg ONCE ONCE PO Last administered on 08/31/17 06:30; Start 08/31/17 at 06:15; Stop 08/31/17 at 06:20; Status DC Oxycodone HCl (Roxicodone Intensol Liq) 10 mg Q4H PO Last administered on 09:17; Start 08/31/17 at 13:00; Stop 09/11/17 at 10:20; Status DC Propranolol HCl (Inderal) 10 mg Q6HR PO Last administered on 09/11/17 05:37; Start 08/31/17 at 12:00; Stop 09/11/17 at 10:20; Status DC Quetiapine Fumarate (SEROquel) 100 mg Q8HR PO Last administered on 09/11/17 05 :37; Start 08/31/17 at 11:00; Stop 09/11/17 at 10:20; Status DC Haloperidol Lactate (Haldol Inj) 5 mg Q4H PRN IV agitation Last administered on 09/12/17 23:04; Start 08/31/17 at 11:00; Stop 09/25/17 at 09:30; Status DC Magnesium Sulfate/ Dextrose 100 ml @ 100 mls/hr Q1H IV Last administered on 12:22; Start 08/31/17 at 12:00; Stop 08/31/17 at 13:00; Status DC Bisacodyl (Dulcolax Supp) 10 mg DAILY RECTAL Last administered on 08/31/17 11 :58; Start 08/31/17 at 12:00; Stop 09/25/17 at 09:30; Status DC Polyethylene Glycol (Miralax) 17 gm BID PO Last administered on 09/20/17 09: 26; Start 08/31/17 at 12:00; Stop 09/25/17 at 09:29; Status DC Lactulose (Lactulose Liq) 30 ml BID PO Last administered on 09/04/17 19:57; Start 08/31/17 at 12:00; Stop 09/25/17 at 09:30; Status DC Senna/Docusate Sodium (Melina-Colace) 1 tab BID PO Last administered on 09:14; Start 08/31/17 at 12:00; Stop 09/25/17 at 09:29; Status DC Magnesium Citrate (Citroma Liq) 300 ml ONCE ONCE PO Last administered on 08/31 11:57; Start 08/31/17 at 12:00; Stop 08/31/17 at 12:01; Status DC Rocuronium Marion (Zemuron Inj) 50 mg STK-MED ONCE .ROUTE Last administered on 08/31/17 14:36; Start 08/31/17 at 14:36; Stop 08/31/17 at 14:37; Status DC Calcium Acetate (Phoslo) 667 mg TID PO Last administered on 09/08/17 10:38; Start 08/31/17 at 18:00; Stop 09/08/17 at 11:02; Status DC Rocuronium Marion (Zemuron Inj) 50 mg STAT ONCE IV Last administered on 08/31 16:00; Start 08/31/17 at 16:00; Stop 08/31/17 at 16:01; Status DC Lactated Ringer's 1,000 ml @ 999 mls/hr BOLUS ONCE IV Last administered on 21:12; Start 08/31/17 at 20:45; Stop 08/31/17 at 21:45; Status DC Piperacillin Sod/ Tazobactam Sod 50 ml @ 100 mls/hr Q6HR IV Last administered on 09/02/17 05:59; Start 09/01/17 at 18:00; Stop 09/02/17 at 10:45; Status DC Piperacillin Sod/ Tazobactam Sod 50 ml @ 100 mls/hr Q8HR IV Last administered on 09/11/17 05:37; Start 09/02/17 at 14:00; Stop 09/11/17 at 10:20; Status DC Nicardipine HCl 50 mg/Sodium Chloride 500 ml @ 50 mls/hr TITRATE PRN IV BLOOD PRESSURE MANAGEMENT Last administered on 09/05/17 22:00; Start 09/02/17 at 21 :15; Stop 09/11/17 at 10:25; Status DC Rocuronium Marion (Zemuron Inj) 50 mg STK-MED ONCE .ROUTE Last administered on 09/03/17 09:22; Start 09/03/17 at 09:22; Stop 09/03/17 at 09:23; Status DC Rocuronium Marion (Zemuron Inj) 50 mg NOW ONCE IV PUSH Last administered on 09/03/17 10:13; Start 09/03/17 at 10:15; Stop 09/03/17 at 10:16; Status DC Rocuronium Marion (Zemuron Inj) 50 mg NOW ONCE IV PUSH Last administered on 09/03/17 11:00; Start 09/03/17 at 11:00; Stop 09/03/17 at 11:01; Status DC Potassium Chloride 30 meq/ Sodium Chloride 115 ml @ 38.333 mls/ hr ONCE ONCE IV-CENTRAL Last administered on 09/03/17 13:36; Start 09/03/17 at 14:00; Stop 09/03/17 at 16:59; Status DC Dexamethasone Sodium Phosphate (Decadron Inj) 6 mg Q6H IV PUSH Last administered on 09/05/17 06:09; Start 09/04/17 at 13:00; Stop 09/05/17 at 11 :55; Status DC Diphenhydramine HCl (Benadryl Inj) 50 mg Q6H IV Last administered on 08:27; Start 09/04/17 at 13:00; Stop 09/07/17 at 12:59; Status DC Lorazepam (Ativan) 2 mg Q8H PO Last administered on 09/07/17 14:35; Start at 15:00; Stop 09/07/17 at 15:18; Status DC Acetaminophen 0 ml @ As Directed STK-MED ONCE IV ; Start 09/05/17 at 07:52; Stop 09/05/17 at 07:53; Status DC Insulin Detemir (Levemir Inj) 10 units Q12H SQ Last administered on 09/11/17 09:16; Start 09/05/17 at 10:00; Stop 09/11/17 at 10:21; Status DC Dexamethasone Sodium Phosphate (Decadron Inj) 4 mg Q12H IV PUSH Last administered on 09/07/17 05:28; Start 09/05/17 at 18:00; Stop 09/07/17 at 17 :59; Status DC Albuterol/ Ipratropium (Duoneb Neb) 1 ampule Q6HR NEB NEB Last administered on 09/08/17 11:05; Start 09/05/17 at 12:00; Stop 09/08/17 at 12:59; Status DC Rocuronium Marion (Zemuron Inj) 50 mg BOLUS STAT IV Last administered on 16:47; Start 09/05/17 at 16:37; Stop 09/05/17 at 16:38; Status DC Fluticasone Propionate (Flonase Tae Spr) 2 spray DAILY EACH NARE Last administered on 10/08/17 08:04; Start 09/05/17 at 17:00 Lactated Ringer's 1,000 ml @ 30 mls/hr Q24H PRN IV SEE LABEL COMMENTS; Start 09/05/17 at 23:00; Stop 09/08/17 at 22:59; Status DC Sodium Chloride 500 ml @ 30 mls/hr [id number] PRN IV SEE LABEL COMMENTS; Start at 23:00; Stop 09/08/17 at 22:59; Status DC Metoprolol Tartrate (Lopressor) 25 mg FRAME CATCHER PRN PO SEE LABEL COMMENTS; Start 09/05/17 at 23:00; Stop 09/08/17 at 22:59; Status DC Povidone Iodine (Betadine 5% Antisepsis Kit) 1 applic FRAME CATCHER PRN EACH NARE SEE LABEL COMMENTS; Start 09/05/17 at 23:00; Stop 09/08/17 at 22:59; Status DC Chlorhexidine Gluconate (Chlorhexidine 2% Cloth) 3 pack FRAME CATCHER PRN TOPICAL SEE LABEL COMMENTS; Start 09/05/17 at 23:00; Stop 09/08/17 at 22:59; Status DC Insulin Human Regular (NovoLIN R INJ) See Protocol Table ... FRAME CATCHER PRN SQ SEE PROTOCOL TABLE; Start 09/05/17 at 23:00; Stop 09/08/17 at 22:59; Status DC Potassium Chloride 100 ml @ 50 mls/hr ONCE ONCE IV Last administered on 09/06 10:16; Start 09/06/17 at 09:30; Stop 09/06/17 at 11:29; Status DC Clonidine (Catapres) 0.3 mg Q8HR PO Last administered on 09/25/17 05:27; Start 09/06/17 at 14:00; Stop 09/25/17 at 09:29; Status DC Clonidine (Catapres) 0.3 mg ONCE ONCE PO Last administered on 09/06/17 11:55 ; Start 09/06/17 at 11:45; Stop 09/06/17 at 11:46; Status DC Heparin Sodium (Porcine) (Heparin Inj) 5,000 units Q12HR SQ ; Start 09/06/17 at 21:00; Stop 09/06/17 at 21:00; Status DC Gelatin (Gelfoam 12 Mm/7 Mm Top) 1 foam STK-MED ONCE .ROUTE Last administered on 09/07/17 09:47; Start 09/07/17 at 09:47; Stop 09/07/17 at 09:48; Status DC Silver Nitrate/ Potassium Nitrate (Silver Nitrate Applicators) 1 appl ONCE ONCE TOPICAL Last administered on 09/07/17 10:15; Start 09/07/17 at 10:15; Stop 09/07/17 at 10:47; Status DC Potassium Chloride 100 ml @ 50 mls/hr Q2H IV Last administered on 09/07/17 12:45; Start 09/07/17 at 10:45; Stop 09/07/17 at 14:44; Status DC Desmopressin Acetate (Ddavp Tae Spr) 1 spray ONCE ONCE EACH NARE Last administered on 09/07/17 15:00; Start 09/07/17 at 15:00; Stop 09/07/17 at 15 :01; Status DC Propofol (Diprivan 200 Mg/20 ml Inj) 200 mg STK-MED ONCE IV ; Start 09/06/17 at 12:00; Stop 09/07/17 at 15:10; Status DC Lorazepam (Ativan) 1 mg Q12H PO Last administered on 09/09/17 20:27; Start 09/07/17 at 19:00; Stop 09/11/17 at 10:25; Status DC Gelatin (Gelfoam 12 Mm/7 Mm Top) 1 foam Q2HR PRN TOPICAL if still bleeding from peg Last administered on 09/08/17 08:00; Start 09/07/17 at 19:45 Potassium Chloride 100 ml @ 50 mls/hr Q2H IV Last administered on 09/08/17 11:59; Start 09/08/17 at 09:00; Stop 09/08/17 at 12:59; Status DC Potassium Chloride (KCl) 40 meq ONCE ONCE PO ; Start 09/08/17 at 09:00; Stop 09/08/17 at 12:05; Status DC Potassium Chloride (KCl Powder) 40 meq ONCE ONCE PEG Last administered on 12:15; Start 09/08/17 at 12:15; Stop 09/08/17 at 12:21; Status DC Midazolam HCl (Versed Inj) 10 mg ONCE ONCE IV PUSH ; Start 09/08/17 at 13:00; Stop 09/08/17 at 13:41; Status DC Sodium Chloride 1,000 ml @ 999 mls/hr BOLUS ONCE IV Last administered on 13:00; Start 09/08/17 at 13:00; Stop 09/08/17 at 14:00; Status DC Rocuronium Marion (Zemuron Inj) 100 mg BOLUS ONCE IV ; Start 09/08/17 at 13: 00; Stop 09/08/17 at 13:44; Status DC Albuterol/ Ipratropium (Duoneb Neb) 1 ampule Q6HR NEB NEB Last administered on 09/12/17 15:34; Start 09/08/17 at 16:00; Stop 09/12/17 at 15:59; Status DC Midazolam HCl (Versed Inj) 10 mg STK-MED ONCE .ROUTE Last administered on 09/08 13:39; Start 09/08/17 at 13:12; Stop 09/08/17 at 13:13; Status DC Rocuronium Marion (Zemuron Inj) 100 mg STK-MED ONCE .ROUTE Last administered on 09/08/17 13:12; Start 09/08/17 at 13:12; Stop 09/08/17 at 13:13; Status DC Midazolam HCl (Versed Inj) 5 mg STK-MED ONCE .ROUTE Last administered on 13:52; Start 09/08/17 at 13:44; Stop 09/08/17 at 13:45; Status DC Midazolam HCl (Versed Inj) 5 mg STK-MED ONCE .ROUTE Last administered on 13:52; Start 09/08/17 at 13:49; Stop 09/08/17 at 13:50; Status DC Potassium Bicarb/ Potassium Chloride (K-Lyte Cl Eff) 25 meq ONCE ONCE PO Last administered on 09/09/17 11:15; Start 09/09/17 at 11:00; Stop 09/09/17 at 11:03; Status DC Metoclopramide HCl (Reglan Inj) 5 mg Q8HR IV PUSH Last administered on 22:55; Start 09/09/17 at 22:00; Stop 09/11/17 at 10:25; Status DC Potassium Chloride 100 ml @ 50 mls/hr Q2H IV Last administered on 09/10/17 16 :01; Start 09/10/17 at 13:00; Stop 09/10/17 at 16:59; Status DC Insulin Detemir (Levemir Inj) 12 units Q12H SQ Last administered on 09/17/17 10:42; Start 09/11/17 at 22:00; Stop 09/17/17 at 15:27; Status DC Oxycodone HCl (Roxicodone Intensol Liq) 5 mg Q4H PO Last administered on 08:28; Start 09/11/17 at 13:00; Stop 09/17/17 at 12:47; Status DC Propranolol HCl (Inderal) 30 mg Q6HR PO Last administered on 09/17/17 04:23; Start 09/11/17 at 12:00; Stop 09/17/17 at 12:47; Status DC Quetiapine Fumarate (SEROquel) 50 mg Q8HR PO Last administered on 09/12/17 21: 37; Start 09/11/17 at 14:00; Stop 09/25/17 at 09:29; Status DC Modafinil (Provigil) 200 mg DAILY PO Last administered on 09/12/17 09:07; Start 09/11/17 at 12:00; Stop 09/25/17 at 09:30; Status DC Water (Free Water) VOLUME: 200 ML Q4HR G-TUBE Last administered on 09/18/17 08 :00; Start 09/11/17 at 12:00; Stop 09/18/17 at 11:53; Status DC Famotidine (Pepcid) 10 mg BID NG Last administered on 09/23/17 20:42; Start 09/11/17 at 21:00; Stop 09/24/17 at 09:10; Status DC Heparin Sodium (Porcine) (Heparin Inj) 5,000 units Q12HR SQ Last administered on 09/28/17 08:20; Start 09/11/17 at 21:00; Status Future Hold Lorazepam (Ativan Inj) 1 mg ONCE ONCE IV PUSH Last administered on 09/13/17 02:57; Start 09/13/17 at 02:45; Stop 09/13/17 at 02:46; Status DC Pharmacy Profile Note 0 ml @ 0 mls/hr UNSCH OTHER ; Start 09/13/17 at 02:45; Stop 09/17/17 at 10:11; Status DC Piperacillin Sod/ Tazobactam Sod 50 ml @ 100 mls/hr Q6H IV Last administered on 09/19/17 20:26; Start 09/13/17 at 03:00; Stop 09/19/17 at 23:00; Status DC Nicardipine HCl 25 mg/Sodium Chloride 250 ml @ 50 mls/hr TITRATE PRN IV Blood pressure management Last administered on 09/17/17 04:57; Start 09/13/17 at 02: 45; Stop 09/17/17 at 12:47; Status DC Dantrolene Sodium (Dantrium Inj) 70 mg ONCE ONCE IV Last administered on 03:55; Start 09/13/17 at 03:00; Stop 09/13/17 at 03:01; Status DC Vancomycin HCl 2000 mg/Sodium Chloride 520 ml @ 250 mls/hr ONCE ONCE IV Last administered on 09/13/17 05:52; Start 09/13/17 at 04:00; Stop 09/13/17 at 06:04 ; Status DC Vancomycin HCl 2500 mg/Sodium Chloride 525 ml @ 250 mls/hr ONCE ONCE IV Last administered on 09/14/17 12:29; Start 09/14/17 at 12:00; Stop 09/14/17 at 14:05 ; Status DC Potassium Chloride 100 ml @ 50 mls/hr Q2H IV Last administered on 09/15/17 10 :22; Start 09/15/17 at 08:15; Stop 09/15/17 at 12:14; Status DC Dexamethasone Sodium Phosphate (Decadron Inj) 6 mg Q6HR IV PUSH Last administered on 09/17/17 04:24; Start 09/15/17 at 14:15; Stop 09/17/17 at 12:35 ; Status DC Diphenhydramine HCl (Benadryl Inj) 25 mg Q6H IV PUSH Last administered on 08:06; Start 09/15/17 at 15:00; Stop 09/18/17 at 14:59; Status DC Lidocaine HCl (Lidocaine Pf 2% Neb) 1 ml Q6HR NEB PRN NEB cough/bronchial irritation; Start 09/16/17 at 11:30 Vancomycin HCl 1500 mg/Sodium Chloride 515 ml @ 257.5 mls/ hr ONCE ONCE IV Last administered on 09/16/17 17:07; Start 09/16/17 at 15:00; Stop 09/16/17 at 16:59; Status DC Insulin Human Regular (NovoLIN R SUPPLEMENTAL SCALE) 5 ONCE ONCE SQ Last administered on 09/16/17 18:14; Start 09/16/17 at 18:00; Stop 09/16/17 at 18:01 ; Status DC Labetalol HCl (Trandate) 300 mg Q8HR PEG Last administered on 09/25/17 05:26 ; Start 09/17/17 at 14:00; Stop 09/25/17 at 09:31; Status DC Labetalol HCl (Trandate) 300 mg NOW ONCE PEG Last administered on 09/17/17 04 :23; Start 09/17/17 at 04:15; Stop 09/17/17 at 04:16; Status DC Dexamethasone Sodium Phosphate (Decadron Inj) 6 mg Q12HR IV PUSH Last administered on 09/20/17 09:26; Start 09/17/17 at 21:00; Stop 09/20/17 at 20: 59; Status DC Albuterol/ Ipratropium (Duoneb Neb) 1 ampule Q6HR NEB INH Last administered on 09/21/17 08:25; Start 09/17/17 at 16:00; Stop 09/21/17 at 15:59; Status DC Oxycodone HCl (Roxicodone Intensol Liq) 5 mg Q6H PO Last administered on 08:05; Start 09/17/17 at 15:00; Stop 09/18/17 at 12:04; Status DC Propranolol HCl (Inderal) 40 mg Q6HR PO Last administered on 09/25/17 05:26; Start 09/17/17 at 18:00; Stop 09/25/17 at 09:29; Status DC Insulin Detemir (Levemir Inj) 15 units Q12H SQ Last administered on 09/18/17 09:49; Start 09/17/17 at 22:00; Stop 09/18/17 at 11:53; Status DC Water (Free Water) 300 ml Q4HR G-TUBE Last administered on 10/08/17 08:00; Start 09/18/17 at 12:00 Insulin Detemir (Levemir Inj) 18 units Q12H SQ Last administered on 09/18/17 20:09; Start 09/18/17 at 22:00; Stop 09/19/17 at 08:52; Status DC Dextrose (D50w (Vial) Inj) 25 ml UNSCH PRN IV PUSH HYPOGLYCEMIA-SEE COMMENTS; Start 09/18/17 at 12:00 Insulin Human Regular (NovoLIN R SUPPLEMENTAL SCALE) 1 Q4HR SQ Last administered on 09/25/17 04:09; Start 09/18/17 at 12:00; Stop 09/25/17 at 09: 28; Status DC Oxycodone HCl (Roxicodone Intensol Liq) 5 mg Q6H PRN PO pain 6-10 Last administered on 09/18/17 22:56; Start 09/18/17 at 15:00; Stop 09/25/17 at 09: 29; Status DC Hydralazine HCl (Apresoline) 50 mg Q8HR PO Last administered on 09/19/17 05: 12; Start 09/18/17 at 14:00; Stop 09/19/17 at 08:52; Status DC Insulin Detemir (Levemir Inj) 20 units Q12H SQ Last administered on 10/08/17 09:54; Start 09/19/17 at 10:00 Hydralazine HCl (Apresoline) 100 mg Q8HR PO Last administered on 09/25/17 05: 31; Start 09/19/17 at 14:00; Stop 09/25/17 at 09:29; Status DC Dextrose 1,000 ml @ 42 mls/hr [id number] IV Last administered on 09/20/17 09:25 ; Start 09/19/17 at 08:45; Stop 09/20/17 at 11:39; Status DC Sodium Chloride 38.5 meq/Sterile Water 1,009.625 ml @ 42 mls/hr Q24H IV Last administered on 09/25/17 06:01; Start 09/20/17 at 13:00; Stop 09/25/17 at 09 :24; Status DC Acetaminophen 0 ml @ As Directed STK-MED ONCE IV ; Start 09/21/17 at 09:42; Stop 09/21/17 at 09:43; Status DC Hydromorphone HCl (Dilaudid Pf Inj) 2 mg STK-MED ONCE .ROUTE ; Start 09/21/17 at 09:43; Stop 09/21/17 at 09:44; Status DC Sodium Polystyrene Sulfonate (Kayexalate Liq) 30 gm Q2HR PO Last administered on 09/21/17 19:53; Start 09/21/17 at 16:00; Stop 09/21/17 at 21:00; Status DC Famotidine (Pepcid) 20 mg BID NG Last administered on 10/08/17 08:04; Start 09/24/17 at 09:30 Morphine Sulfate (Morphine Inj) 2 mg Q2H PRN IV PUSH breakthru pain; Start at 16:30 Metoprolol Tartrate (Lopressor) 25 mg Q8H PO Last administered on 09/25/17 05 :25; Start 09/25/17 at 05:00; Stop 09/25/17 at 09:29; Status DC Potassium Bicarb/ Potassium Chloride (K-Lyte Cl Eff) 50 meq ONCE ONCE PO Last administered on 09/25/17 05:25; Start 09/25/17 at 04:30; Stop 09/25/17 at 04:31; Status DC Sodium Chloride 1,000 ml @ 42 mls/hr [id number] IV ; Start 09/25/17 at 10:00; Stop 09/25/17 at 10:00; Status DC Glucagon (Glucagon Inj) 1 mg UNSCH PRN OTHER HYPOGLYCEMIA-SEE COMMENTS; Start 09/25/17 at 09:30 Insulin Aspart (NovoLOG SUPPLEMENTAL SCALE) 1 Q6H SQ Last administered on 10/08 05:13; Start 09/25/17 at 12:00 Acetaminophen (Tylenol) 650 mg Q6H PRN G-TUBE PAIN 1-5 AND/OR FEVER >101F Last administered on 09/29/17 01:17; Start 09/25/17 at 12:45 Amlodipine Besylate (Norvasc) 10 mg DAILY G-TUBE Last administered on 08:04; Start 09/26/17 at 09:00 Atorvastatin Calcium (Lipitor) 40 mg HS DOBHOFF Last administered on 21:38; Start 09/25/17 at 21:00 Clonidine (Catapres) 0.3 mg Q8HR G-TUBE Last administered on 10/08/17 05:14; Start 09/25/17 at 14:00 Senna/Docusate Sodium (Melina-Colace) 1 tab BID G-TUBE Last administered on 10/06 22:04; Start 09/25/17 at 21:00 Hydralazine HCl (Apresoline) 100 mg Q8HR G-TUBE Last administered on 05:14; Start 09/25/17 at 14:00 Metoprolol Tartrate (Lopressor) 25 mg Q8H G-TUBE ; Start 09/25/17 at 13:00; Stop 09/25/17 at 13:00; Status DC Oxycodone HCl (Roxicodone Intensol Liq) 5 mg Q6H PRN G-TUBE pain 6-10 Last administered on 09/25/17 20:48; Start 09/25/17 at 15:00 Polyethylene Glycol (Miralax) 17 gm BID G-TUBE Last administered on 10/06/17 22:06; Start 09/25/17 at 21:00 Propranolol HCl (Inderal) 40 mg Q6HR G-TUBE Last administered on 10/08/17 05: 14; Start 09/25/17 at 12:00 Quetiapine Fumarate (SEROquel) 50 mg Q8HR G-TUBE Last administered on 05:14; Start 09/25/17 at 14:00 Albuterol Sulfate (Albuterol Neb) 2.5 mg Q2HR NEB PRN NEB sob/wheeze Last administered on 09/29/17 00:45; Start 09/25/17 at 13:30 Cefuroxime Axetil (Ceftin) 500 mg Q12HR PO Last administered on 10/03/17 09: 03; Start 09/26/17 at 11:15; Stop 10/03/17 at 11:14; Status DC Sodium Chloride 250 ml @ 15 mls/hr ONCE ONCE IV ; Start 09/28/17 at 10:15; Stop 09/28/17 at 16:53; Status DC A/P Problem List: (1) Intracranial hemorrhage ICD Code: I62.9 - Nontraumatic intracranial hemorrhage, unspecified Status: Acute Assessment and Plan Assessment and Plan A/P Acute encephalopathy - improving. Left Thalamic Hemorrhage Intracerebral Hemorrhage - Repeat CT of the head showed improving bleed - Neurosurgery follow-up appreciated; stable for dc to SNF per neurosurgery. - Continue rehabilitation efforts with PT, OT, speech - On Seroquel to control agitated delirium. Roxicodone as needed for pain Anemia likely due to chronic disease. H/H fairly stable. will monitor periodically. Healthcare associated pneumonia finished the course of antibiotic. UTI: treated. Respiratory failure s/p trach - Tolerating T piece - CT of the chest 09/13/17 -LLL infiltrate. Repeat chest x-ray on 09/26/17 shows stable left lower lobe consolidation - continue neb treatment. -Patient had angioedema, source unclear and was seen by ENT. He was treated with steroids. Per ENT, expect slow improvement. This is resolving. -Appreciate pulmonology following for trach management Hyperglycemia - persistent. - Continue Levemir 20 units SQ q12h - Continue sliding scale insulin with Accu-Cheks. - hemoglobin A1c 9.1. Hypertension - Intermittent hypertension now well controlled - Continue clonidine, amlodipine and propranolol - Continue hydralazine. Nutrition status: - Status post PEG tube continue tube feeds - Having bowel movements - Continue Free water Acute kidney injury, most likely has CKD per nephrology: Renal function stabilized. - monitor renal function periodically. Physical deconditioning/right sided hemiparesis - OOB to stretcher chair daily - PT/OT following PROPH: - SCD's. Pepcid for GI prophylaxis Discharge Planning dc planning to SNF in progress. Discharge Planning Await case management ability to find SNF Kalen Rice DO Oct 08, 2017 12:38
--- NOTE | 2017-10-08 16:49 | HHI.PR ---
Subjective Remarks 46 YOAA male with ICH,RF,Trach Moves left ext Looks around, able to communicate Good cough efforts no fever Objective Vital Signs Vital Signs Date Time Temp Pulse Resp B/P (MAP) Pulse Ox O2 Delivery O2 Flow Rate FiO2 10/08/17 16:00 100.7 90 20 152/85 (107) 95 10/08/17 11:55 84 10/08/17 11:45 T-Piece 5.00 28 10/08/17 11:40 99 T-piece 28 10/08/17 11:00 98.8 84 20 175/88 (117) 96 10/08/17 08:00 98.3 76 20 138/75 (96) 99 10/08/17 07:47 78 10/08/17 04:00 99.0 77 18 152/90 (110) 99 10/08/17 04:00 84 10/08/17 00:52 98.5 74 18 147/87 (107) 99 10/08/17 00:00 72 10/07/17 22:10 99 T-piece 5.00 28 10/07/17 21:40 T-Piece 3.50 10/07/17 20:42 99.1 74 18 145/84 (104) 99 10/07/17 20:00 72 I/O 10/07/17 10/07/17 10/07/17 10/08/17 10/08/17 10/08/17 07:00 15:00 23:00 07:00 15:00 23:00 Intake Total 1985 ml 0 ml 733 ml Output Total 1200 ml 2600 ml 2050 ml 120 ml Balance 785 ml -2600 ml -1317 ml -120 ml Intake Oral 0 ml 0 ml Tube Feeding 1085 ml 433 ml Other 900 ml 300 ml Output Urine Total 1200 ml 2600 ml 2050 ml 120 ml # Voids 4 # Bowel Movements 2 0 1 1 Result Diagram: 10/04/1781810/04/17818 Objective Remarks GENERAL: WBWN AA male, NAD SKIN: Warm and dry. HEAD: Normocephalic. EYES: No scleral icterus. No injection or drainage. NECK: Supple, trachea midline. No JVD or lymphadenopathy. trach CARDIOVASCULAR: Regular rate and rhythm without murmurs, gallops, or rubs. RESPIRATORY: Breath sounds equal bilaterally. No accessory muscle use. GASTROINTESTINAL: Abdomen soft, non-tender, nondistended. MUSCULOSKELETAL: No cyanosis, or edema. BACK: Nontender without obvious deformity. No CVA tenderness. A/P Assessment and Plan Resp failure S/P Trach HTN ICH, right side flacid Pn PLAN Trach care Aerosol nebs Cont Abx Tube feeding Suction prn PMV trial Jesus Villar MD Oct 08, 2017 16:49
[2017-10-08] MEDS: ATORVASTATIN 40 MG TAB DOBHOFF SCH (22:26)
[2017-10-09] VITALS (9 sets, daily range): BP systolic 124–157; BP diastolic 78–90; PULSE 73–81; RESP 17–18; TEMP 98.1–99.4; O2SAT 96–99
[2017-10-09] MEDS: CHLORHEXIDINE GLUCONATE 2 % 1 PACK (2 CLOTHS) TOP SCH (03:55)
[2017-10-09] MEDS: FREE WATER G-TUBE SCH ×6 (03:55→23:04)
[2017-10-09] MEDS: PROPRANOLOL HCL 40 MG TAB G-TUBE SCH ×4 (05:12→17:33)
[2017-10-09] MEDS: QUEtiapine FUMARATE 25 MG TAB G-TUBE SCH ×3 (05:12→20:55)
[2017-10-09] MEDS: hydrALAZINE HCL 100 MG TAB G-TUBE SCH ×3 (05:12→20:56)
[2017-10-09] MEDS: cloNIDine HCL 0.3 MG TAB G-TUBE SCH ×3 (05:12→20:56)
[2017-10-09] MEDS: INSULIN ASPART SUPPLEMENTAL SCALE SQ SCH ×3 (05:15→17:34)
[2017-10-09] MEDS: DOCUSATE SODIUM 50 MG/SENNA 8.6 MG TAB G-TUBE SCH ×2 (09:00→20:53)
[2017-10-09] MEDS: POLYETHYLENE GLYCOL 17 GM PKG G-TUBE SCH ×2 (09:00→20:53)
[2017-10-09] MEDS: FAMOTIDINE 20 MG TAB NG SCH ×2 (10:00→20:56)
[2017-10-09] MEDS: FLUTICASONE PROPIONATE 50 MCG/ACT 16 GM NASAL SPRAY EACH NARE SCH (10:01)
[2017-10-09] MEDS: INSULIN DETEMIR 100 UNITS/ML VIAL SQ SCH ×2 (10:02→20:57)
[2017-10-09] MEDS: CHLORHEXIDINE 0.12% (ORAL KIT) 15 ML CUP MT SCH ×2 (10:03→20:00)
--- NOTE | 2017-10-09 14:33 | HHI.PR ---
Subjective Remarks 46 YOAA male with ICH,RF,Trach Moves left ext Looks around, able to communicate Good cough efforts no fever Tolerated PMV yesterday Objective Vital Signs Vital Signs Date Time Temp Pulse Resp B/P (MAP) Pulse Ox O2 Delivery O2 Flow Rate FiO2 10/09/17 12:00 98.9 75 18 153/90 (111) 98 10/09/17 08:00 98.1 73 18 145/89 (107) 96 10/09/17 04:00 98.8 75 17 157/89 (111) 98 10/09/17 04:00 77 10/09/17 00:00 98.8 80 17 148/85 (106) 98 10/08/17 23:53 80 10/08/17 22:30 T-Piece 28 10/08/17 20:00 98.5 83 17 167/94 (118) 95 10/08/17 20:00 84 10/08/17 18:16 95 Trach Collar 6.00 28 10/08/17 16:00 100.7 90 20 152/85 (107) 95 10/08/17 15:57 87 I/O 10/08/17 10/08/17 10/08/17 10/09/17 10/09/17 10/09/17 07:00 15:00 23:00 07:00 15:00 23:00 Intake Total 733 ml 0 ml Output Total 2050 ml 120 ml 200 ml Balance -1317 ml -120 ml -200 ml Intake Oral 0 ml Tube Feeding 433 ml Other 300 ml Output Urine Total 2050 ml 120 ml 200 ml # Voids 4 2 # Bowel Movements 1 1 Objective Remarks GENERAL: WBWN AA male, NAD SKIN: Warm and dry. HEAD: Normocephalic. EYES: No scleral icterus. No injection or drainage. NECK: Supple, trachea midline. No JVD or lymphadenopathy. trach CARDIOVASCULAR: Regular rate and rhythm without murmurs, gallops, or rubs. RESPIRATORY: Breath sounds equal bilaterally. No accessory muscle use. GASTROINTESTINAL: Abdomen soft, non-tender, nondistended. MUSCULOSKELETAL: No cyanosis, or edema. BACK: Nontender without obvious deformity. No CVA tenderness. A/P Assessment and Plan Resp failure S/P Trach HTN ICH, right side flacid Pn PLAN Trach care Aerosol nebs Cont Abx Tube feeding Suction prn Daily PMV trial Jesus Villar MD Oct 09, 2017 14:33
[2017-10-09] MEDS: ATORVASTATIN 40 MG TAB DOBHOFF SCH (20:56)
--- NOTE | 2017-10-09 23:58 | HHI.PR ---
Subjective Remarks Objective Vital Signs Date Time Temp Pulse Resp B/P (MAP) Pulse Ox O2 Delivery O2 Flow Rate FiO2 10/09/17 22:36 99 T-piece 5.00 28 10/09/17 20:00 T-Piece 5.00 28 10/09/17 20:00 99.4 77 18 147/83 (104) 99 10/09/17 19:35 77 10/09/17 16:00 77 10/09/17 16:00 98.6 77 18 124/78 (93) 99 10/09/17 12:00 78 10/09/17 12:00 98.9 75 18 153/90 (111) 98 10/09/17 08:00 98.1 73 18 145/89 (107) 96 10/09/17 08:00 73 10/09/17 07:00 T-Piece 5.00 28 10/09/17 04:00 98.8 75 17 157/89 (111) 98 10/09/17 04:00 77 10/09/17 00:00 98.8 80 17 148/85 (106) 98 I/O 10/09/17 10/09/17 10/09/17 10/10/17 10/10/17 10/10/17 07:00 15:00 23:00 07:00 15:00 23:00 Intake Total 0 ml 720 ml Output Total 200 ml Balance -200 ml 720 ml Intake Oral 0 ml Tube Feeding 720 ml Output Urine Total 200 ml # Voids 2 Lucius Bocanegra MD Oct 09, 2017 23:58
[2017-10-10] VITALS (10 sets, daily range): BP systolic 128–168; BP diastolic 65–86; PULSE 75–85; RESP 17–18; TEMP 98–100.4; O2SAT 93–99
--- NOTE | 2017-10-10 00:11 | HHI.PR ---
Subjective Remarks Patient seen today around 2 PM. Communicates via shaking and nodding head. . Continued flaccid paralysis on the right. Objective Vital Signs Date Time Temp Pulse Resp B/P (MAP) Pulse Ox O2 Delivery O2 Flow Rate FiO2 10/09/17 22:36 99 T-piece 5.00 28 10/09/17 20:00 T-Piece 5.00 28 10/09/17 20:00 99.4 77 18 147/83 (104) 99 10/09/17 19:35 77 10/09/17 16:00 77 10/09/17 16:00 98.6 77 18 124/78 (93) 99 10/09/17 12:00 78 10/09/17 12:00 98.9 75 18 153/90 (111) 98 10/09/17 08:00 98.1 73 18 145/89 (107) 96 10/09/17 08:00 73 10/09/17 07:00 T-Piece 5.00 28 10/09/17 04:00 98.8 75 17 157/89 (111) 98 10/09/17 04:00 77 I/O 10/09/17 10/09/17 10/09/17 10/10/17 10/10/17 10/10/17 07:00 15:00 23:00 07:00 15:00 23:00 Intake Total 0 ml 720 ml Output Total 200 ml Balance -200 ml 720 ml Intake Oral 0 ml Tube Feeding 720 ml Output Urine Total 200 ml # Voids 2 Objective Remarks GENERAL: patient lying in bed. Appears comfortable. Communicates by nodding his head. SKIN: Warm and dry. HEAD: Normocephalic. EYES: No scleral icterus. No injection or drainage. NECK: Supple, trachea midline. No JVD. CARDIOVASCULAR: Regular rate and rhythm without murmurs, gallops, or rubs. RESPIRATORY: Breath sounds equal bilaterally. No accessory muscle use. GASTROINTESTINAL: Abdomen soft, non-tender, nondistended. PEG tube in place without surrounding erythema or leakage. MUSCULOSKELETAL: No cyanosis, or edema. flaccid paralysis on the right. BACK: Nontender without obvious deformity. No CVA tenderness. A/P Assessment and Plan 10/09. Patient seen and examined. Continue current management Acute encephalopathy - improving. Left Thalamic Hemorrhage Intracerebral Hemorrhage - Repeat CT of the head showed improving bleed - Neurosurgery follow-up appreciated; stable for dc to SNF per neurosurgery. - Continue rehabilitation efforts with PT, OT, speech - On Seroquel to control agitated delirium. Roxicodone as needed for pain Anemia likely due to chronic disease. H/H fairly stable. will monitor periodically. Healthcare associated pneumonia finished the course of antibiotic. UTI: treated. Respiratory failure s/p trach - Tolerating T piece - CT of the chest 09/13/17 -LLL infiltrate. Repeat chest x-ray on 09/26/17 shows stable left lower lobe consolidation - continue neb treatment. -Patient had angioedema, source unclear and was seen by ENT. He was treated with steroids. Per ENT, expect slow improvement. This is resolving. -Appreciate pulmonology following for trach management Hyperglycemia - persistent. - Continue Levemir 20 units SQ q12h - Continue sliding scale insulin with Accu-Cheks. - hemoglobin A1c 9.1. Hypertension - Intermittent hypertension now well controlled - Continue clonidine, amlodipine and propranolol - Continue hydralazine. Nutrition status: - Status post PEG tube continue tube feeds - Having bowel movements - Continue Free water Acute kidney injury, most likely has CKD per nephrology: Renal function stabilized. - monitor renal function periodically. Physical deconditioning/right sided hemiparesis - OOB to stretcher chair daily - PT/OT following PROPH: - SCD's. Pepcid for GI prophylaxis Discharge Planning Await case management ability to find SNF Lucius Bocanegra MD Oct 10, 2017 00:11
[2017-10-10] MEDS: PROPRANOLOL HCL 40 MG TAB G-TUBE SCH ×4 (00:14→17:36)
[2017-10-10] MEDS: FREE WATER G-TUBE SCH ×5 (04:00→20:00)
[2017-10-10] MEDS: CHLORHEXIDINE GLUCONATE 2 % 1 PACK (2 CLOTHS) TOP SCH (04:00)
[2017-10-10] MEDS: INSULIN ASPART SUPPLEMENTAL SCALE SQ SCH ×4 (05:04→17:37)
[2017-10-10] MEDS: hydrALAZINE HCL 100 MG TAB G-TUBE SCH ×3 (05:05→21:07)
[2017-10-10] MEDS: QUEtiapine FUMARATE 25 MG TAB G-TUBE SCH ×3 (05:05→21:07)
[2017-10-10] MEDS: cloNIDine HCL 0.3 MG TAB G-TUBE SCH ×3 (05:05→21:07)
[2017-10-10] MEDS: POLYETHYLENE GLYCOL 17 GM PKG G-TUBE SCH ×2 (09:00→21:07)
[2017-10-10] MEDS: DOCUSATE SODIUM 50 MG/SENNA 8.6 MG TAB G-TUBE SCH ×2 (09:00→21:07)
[2017-10-10] MEDS: FAMOTIDINE 20 MG TAB NG SCH ×2 (09:42→21:07)
[2017-10-10] MEDS: INSULIN DETEMIR 100 UNITS/ML VIAL SQ SCH ×2 (09:42→21:08)
[2017-10-10] MEDS: FLUTICASONE PROPIONATE 50 MCG/ACT 16 GM NASAL SPRAY EACH NARE SCH (09:43)
[2017-10-10] MEDS: CHLORHEXIDINE 0.12% (ORAL KIT) 15 ML CUP MT SCH ×2 (09:43→20:00)
--- NOTE | 2017-10-10 15:24 | HHI.PR ---
Subjective Remarks 46 YOAA male with ICH,RF,Trach Moves left ext Looks around, able to communicate Good cough efforts no fever Objective Vital Signs Vital Signs Date Time Temp Pulse Resp B/P (MAP) Pulse Ox O2 Delivery O2 Flow Rate FiO2 10/10/17 12:00 99.4 77 18 145/79 (101) 97 10/10/17 08:00 99.5 78 18 128/72 (90) 99 10/10/17 07:00 T-Piece 5.00 28 10/10/17 06:05 T-Piece 5.00 28 10/10/17 04:00 100.4 75 17 146/81 (102) 98 10/10/17 03:46 75 10/10/17 00:00 99.8 83 18 137/85 (102) 96 10/09/17 23:48 81 10/09/17 22:36 99 T-piece 5.00 28 10/09/17 20:00 T-Piece 5.00 28 10/09/17 20:00 99.4 77 18 147/83 (104) 99 10/09/17 19:35 77 10/09/17 16:00 77 10/09/17 16:00 98.6 77 18 124/78 (93) 99 I/O 10/09/17 10/09/17 10/09/17 10/10/17 10/10/17 10/10/17 07:00 15:00 23:00 07:00 15:00 23:00 Intake Total 0 ml 720 ml 0 ml Output Total 200 ml 350 ml Balance -200 ml 720 ml -350 ml Intake Oral 0 ml 0 ml Tube Feeding 720 ml Output Urine Total 200 ml 350 ml # Voids 2 # Bowel Movements 1 Objective Remarks GENERAL: WBWN AA male, NAD SKIN: Warm and dry. HEAD: Normocephalic. EYES: No scleral icterus. No injection or drainage. NECK: Supple, trachea midline. No JVD or lymphadenopathy. trach CARDIOVASCULAR: Regular rate and rhythm without murmurs, gallops, or rubs. RESPIRATORY: Breath sounds equal bilaterally. No accessory muscle use. GASTROINTESTINAL: Abdomen soft, non-tender, nondistended. MUSCULOSKELETAL: No cyanosis, or edema. BACK: Nontender without obvious deformity. No CVA tenderness. A/P Assessment and Plan Resp failure S/P Trach HTN ICH, right side flacid Pn PLAN Trach care Aerosol nebs Cont Abx Tube feeding Suction prn Daily PMV trial Jesus Villar MD Oct 10, 2017 15:24
--- NOTE | 2017-10-10 17:20 | HHI.PR ---
Subjective Remarks Patient seen today around 3 PM. Again communicates by shaking and nodding head. No overt complaints. Objective Vital Signs Date Time Temp Pulse Resp B/P (MAP) Pulse Ox O2 Delivery O2 Flow Rate FiO2 10/10/17 15:58 99.5 85 18 129/65 (86) 96 10/10/17 12:00 79 10/10/17 12:00 99.4 77 18 145/79 (101) 97 10/10/17 08:00 99.5 78 18 128/72 (90) 99 10/10/17 08:00 78 10/10/17 07:00 T-Piece 5.00 28 10/10/17 06:05 T-Piece 5.00 28 10/10/17 04:00 100.4 75 17 146/81 (102) 98 10/10/17 03:46 75 10/10/17 00:00 99.8 83 18 137/85 (102) 96 10/09/17 23:48 81 10/09/17 22:36 99 T-piece 5.00 28 10/09/17 20:00 T-Piece 5.00 28 10/09/17 20:00 99.4 77 18 147/83 (104) 99 10/09/17 19:35 77 I/O 10/09/17 10/09/17 10/09/17 10/10/17 10/10/17 10/10/17 07:00 15:00 23:00 07:00 15:00 23:00 Intake Total 0 ml 720 ml 0 ml Output Total 200 ml 350 ml Balance -200 ml 720 ml -350 ml Intake Oral 0 ml 0 ml Tube Feeding 720 ml Output Urine Total 200 ml 350 ml # Voids 2 # Bowel Movements 1 Objective Remarks GENERAL: patient lying in bed. Appears comfortable. Communicates by nodding his head. no Changes on exam today. SKIN: Warm and dry. HEAD: Normocephalic. EYES: No scleral icterus. No injection or drainage. NECK: Supple, trachea midline. No JVD. CARDIOVASCULAR: Regular rate and rhythm without murmurs, gallops, or rubs. RESPIRATORY: Breath sounds equal bilaterally. No accessory muscle use. GASTROINTESTINAL: Abdomen soft, non-tender, nondistended. PEG tube in place without surrounding erythema or leakage. MUSCULOSKELETAL: No cyanosis, or edema. flaccid paralysis on the right. BACK: Nontender without obvious deformity. No CVA tenderness. A/P Assessment and Plan 10/10. Patient seen and examined again. Continue current management // Acute encephalopathy - improving. Left Thalamic Hemorrhage Intracerebral Hemorrhage - Repeat CT of the head showed improving bleed - Neurosurgery follow-up appreciated; stable for dc to SNF per neurosurgery. - Continue rehabilitation efforts with PT, OT, speech - On Seroquel to control agitated delirium. Roxicodone as needed for pain //Anemia likely due to chronic disease. H/H fairly stable. will monitor periodically. //Healthcare associated pneumonia finished the course of antibiotic. //UTI: treated. //Respiratory failure s/p trach - Tolerating T piece - CT of the chest 09/13/17 -LLL infiltrate. Repeat chest x-ray on 09/26/17 shows stable left lower lobe consolidation - continue neb treatment. -Patient had angioedema, source unclear and was seen by ENT. He was treated with steroids. Per ENT, expect slow improvement. This is resolving. -Appreciate pulmonology following for trach management //Hyperglycemia - persistent. - Continue Levemir 20 units SQ q12h - Continue sliding scale insulin with Accu-Cheks. - hemoglobin A1c 9.1. //Hypertension - Intermittent hypertension now well controlled - Continue clonidine, amlodipine and propranolol - Continue hydralazine. //Nutrition status: - Status post PEG tube continue tube feeds - Having bowel movements - Continue Free water //Acute kidney injury, most likely has CKD per nephrology: Renal function stabilized. - monitor renal function periodically. //Physical deconditioning/right sided hemiparesis - OOB to stretcher chair daily - PT/OT following PROPH: - SCD's. Pepcid for GI prophylaxis Discharge Planning Await case management ability to find SNF Discharge Planning Await case management ability to find SNF Lucius Bocanegra MD Oct 10, 2017 17:20
[2017-10-10] MEDS: ATORVASTATIN 40 MG TAB DOBHOFF SCH (21:07)
[2017-10-11] VITALS (10 sets, daily range): BP systolic 127–142; BP diastolic 70–87; PULSE 75–81; RESP 18–20; TEMP 98.2–98.9; O2SAT 95–100
[2017-10-11] MEDS: PROPRANOLOL HCL 40 MG TAB G-TUBE SCH ×4 (00:14→18:41)
[2017-10-11] MEDS: INSULIN ASPART SUPPLEMENTAL SCALE SQ SCH ×4 (01:02→18:00)
[2017-10-11] MEDS: CHLORHEXIDINE GLUCONATE 2 % 1 PACK (2 CLOTHS) TOP SCH (04:00)
[2017-10-11] MEDS: FREE WATER G-TUBE SCH ×6 (04:00→20:00)
[2017-10-11] MEDS: QUEtiapine FUMARATE 25 MG TAB G-TUBE SCH ×3 (05:53→21:28)
[2017-10-11] MEDS: hydrALAZINE HCL 100 MG TAB G-TUBE SCH ×3 (05:53→21:27)
[2017-10-11] MEDS: cloNIDine HCL 0.3 MG TAB G-TUBE SCH ×3 (05:53→21:28)
[2017-10-11] MEDS: POLYETHYLENE GLYCOL 17 GM PKG G-TUBE SCH ×2 (08:07→21:00)
[2017-10-11 08:25] LABS: BASOPHIL % 0.7 % (0.0-2.0); EOSINOPHIL # 0.2 TH/MM3 (0-0.4); HEMATOCRIT 24.5 % (39.0-51.0); HEMOGLOBIN 8.1 GM/DL (13.0-17.0); LYMPH % 22.3 % (9.0-44.0); LYMPHOCYTE # 1.4 TH/MM3 (1.0-4.8); MEAN CELL VOLUME 80.8 FL (80.0-100.0); MEAN CORPUSCULAR HEMOGLOBIN 26.6 PG (27.0-34.0); MEAN CORPUSCULAR HGB CONC 32.9 % (32.0-36.0); MEAN PLATELET VOLUME 8.3 FL (7.0-11.0); MONO % 9.3 % (0.0-8.0); MONOCYTE # 0.6 TH/MM3 (0-0.9); NEUT % 64.7 % (16.0-70.0); PLATELET COUNT 332 TH/MM3 (150-450); RED BLOOD COUNT 3.03 MIL/MM3 (4.50-5.90); RED CELL DISTRIBUTION WIDTH 14.9 % (11.6-17.2); WHITE BLOOD COUNT 6.2 TH/MM3 (4.0-11.0)
[2017-10-11 08:57] LABS: ALBUMIN 2.3 GM/DL (3.4-5.0); BICARBONATE 33.4 MEQ/L (21.0-32.0); CREATININE 0.87 MG/DL (0.60-1.30)
[2017-10-11] MEDS: DOCUSATE SODIUM 50 MG/SENNA 8.6 MG TAB G-TUBE SCH ×3 (09:00→21:00)
[2017-10-11] MEDS: INSULIN DETEMIR 100 UNITS/ML VIAL SQ SCH ×2 (09:58→21:27)
[2017-10-11] MEDS: FAMOTIDINE 20 MG TAB NG SCH ×2 (09:58→21:28)
[2017-10-11] MEDS: CHLORHEXIDINE 0.12% (ORAL KIT) 15 ML CUP MT SCH (09:59)
[2017-10-11] MEDS: FLUTICASONE PROPIONATE 50 MCG/ACT 16 GM NASAL SPRAY EACH NARE SCH (09:59)
--- NOTE | 2017-10-11 14:34 | HHI.PR ---
Subjective Remarks 46 YOAA male with ICH,RF,Trach Moves left ext Looks around, able to communicate Good cough efforts no fever takes off trach collar and remains stable Objective Vital Signs Vital Signs Date Time Temp Pulse Resp B/P (MAP) Pulse Ox O2 Delivery O2 Flow Rate FiO2 10/11/17 12:00 98.4 79 18 142/87 (105) 98 10/11/17 08:40 98 T-piece 28 10/11/17 08:00 98.2 75 18 127/70 (89) 98 10/11/17 05:30 98.4 79 18 141/81 (101) 95 10/11/17 04:00 Room Air 10/11/17 03:58 81 10/11/17 03:26 97 T-piece 28 10/11/17 00:05 80 10/11/17 00:00 T-Piece 5.00 28 Humidified 10/10/17 23:55 98.0 79 18 145/83 (103) 97 10/10/17 21:00 98.0 84 17 168/86 (113) 93 10/10/17 20:04 78 10/10/17 20:00 T-Piece 5.00 28 Humidified 10/10/17 16:00 83 10/10/17 15:58 99.5 85 18 129/65 (86) 96 I/O 10/10/17 10/10/17 10/10/17 10/11/17 10/11/17 10/11/17 07:00 15:00 23:00 07:00 15:00 23:00 Intake Total 0 ml 1322 ml Output Total 350 ml 1150 ml Balance -350 ml 172 ml Intake Oral 0 ml 0 ml Tube Feeding 1322 ml Output Urine Total 350 ml 1150 ml # Voids 8 # Bowel Movements 1 1 0 Result Diagram: 10/11/17 0740 10/11/17 0740 Objective Remarks GENERAL: WBWN AA male, NAD SKIN: Warm and dry. HEAD: Normocephalic. EYES: No scleral icterus. No injection or drainage. NECK: Supple, trachea midline. No JVD or lymphadenopathy. trach CARDIOVASCULAR: Regular rate and rhythm without murmurs, gallops, or rubs. RESPIRATORY: Breath sounds equal bilaterally. No accessory muscle use. GASTROINTESTINAL: Abdomen soft, non-tender, nondistended. MUSCULOSKELETAL: No cyanosis, or edema. BACK: Nontender without obvious deformity. No CVA tenderness. A/P Assessment and Plan Resp failure S/P Trach HTN ICH, right side flacid Pn PLAN Trach care Aerosol nebs Cont Abx Tube feeding Suction prn Daily PMV trial Jesus Villar MD Oct 11, 2017 14:34
[2017-10-11] MEDS: RESP: ALBUTEROL 2.5 MG/3 ML NEB (PRN) NEB (17:07)
[2017-10-11] MEDS: CHLORHEXIDINE GLUCONATE 0.12% 15 ML CUP SWISH-SPIT SCH (18:41)
--- NOTE | 2017-10-11 20:06 | HHI.PR ---
Subjective Remarks Patient seen this afternoon around 4 PM. Patient indicates that he feels RN. Denies any pain. Objective Vital Signs Date Time Temp Pulse Resp B/P (MAP) Pulse Ox O2 Delivery O2 Flow Rate FiO2 10/11/17 16:00 98.9 80 18 135/70 (91) 100 10/11/17 12:00 98.4 79 18 142/87 (105) 98 10/11/17 08:40 98 T-piece 28 10/11/17 08:00 98.2 75 18 127/70 (89) 98 10/11/17 05:30 98.4 79 18 141/81 (101) 95 10/11/17 04:00 Room Air 10/11/17 03:58 81 10/11/17 03:26 97 T-piece 28 10/11/17 00:05 80 10/11/17 00:00 T-Piece 5.00 28 Humidified 10/10/17 23:55 98.0 79 18 145/83 (103) 97 10/10/17 21:00 98.0 84 17 168/86 (113) 93 I/O 10/10/17 10/10/17 10/10/17 10/11/17 10/11/17 10/11/17 07:00 15:00 23:00 07:00 15:00 23:00 Intake Total 0 ml 1322 ml 619 ml Output Total 350 ml 1150 ml 1175 ml Balance -350 ml 172 ml -556 ml Intake Oral 0 ml 0 ml 0 ml Tube Feeding 1322 ml 619 ml Output Urine Total 350 ml 1150 ml 1175 ml # Voids 8 # Bowel Movements 1 1 0 0 Result Diagram: 10/11/17 0740 10/11/17 0740 Objective Remarks GENERAL: patient lying in bed. Appears comfortable. Communicates by nodding his head. again, no Changes on exam today. SKIN: Warm and dry. HEAD: Normocephalic. EYES: No scleral icterus. No injection or drainage. NECK: Supple, trachea midline. No JVD. CARDIOVASCULAR: Regular rate and rhythm without murmurs, gallops, or rubs. RESPIRATORY: Breath sounds equal bilaterally. No accessory muscle use. GASTROINTESTINAL: Abdomen soft, non-tender, nondistended. PEG tube in place without surrounding erythema or leakage. MUSCULOSKELETAL: No cyanosis, or edema. flaccid paralysis on the right. BACK: Nontender without obvious deformity. No CVA tenderness. A/P Assessment and Plan 10/11. Patient seen and examined. Continue management. Case management continue to work on placement. // Acute encephalopathy - improving. Left Thalamic Hemorrhage Intracerebral Hemorrhage - Repeat CT of the head showed improving bleed - Neurosurgery follow-up appreciated; stable for dc to SNF per neurosurgery. - Continue rehabilitation efforts with PT, OT, speech - On Seroquel to control agitated delirium. Roxicodone as needed for pain //Anemia likely due to chronic disease. H/H fairly stable. will monitor periodically. //Healthcare associated pneumonia finished the course of antibiotic. //UTI: treated. //Respiratory failure s/p trach - Tolerating T piece - CT of the chest 09/13/17 -LLL infiltrate. Repeat chest x-ray on 09/26/17 shows stable left lower lobe consolidation - continue neb treatment. -Patient had angioedema, source unclear and was seen by ENT. He was treated with steroids. Per ENT, expect slow improvement. This is resolving. -Appreciate pulmonology following for trach management //Hyperglycemia - persistent. - Continue Levemir 20 units SQ q12h - Continue sliding scale insulin with Accu-Cheks. - hemoglobin A1c 9.1. //Hypertension - Intermittent hypertension now well controlled - Continue clonidine, amlodipine and propranolol - Continue hydralazine. //Nutrition status: - Status post PEG tube continue tube feeds - Having bowel movements - Continue Free water //Acute kidney injury, most likely has CKD per nephrology: Renal function stabilized. - monitor renal function periodically. //Physical deconditioning/right sided hemiparesis - OOB to stretcher chair daily - PT/OT following PROPH: - SCD's. Pepcid for GI prophylaxis Discharge Planning Await case management ability to find SNF Discharge Planning Await case management ability to find SNF Lucius Bocanegra MD Oct 11, 2017 20:06
[2017-10-11] MEDS: ATORVASTATIN 40 MG TAB DOBHOFF SCH (21:28)
[2017-10-12] VITALS (9 sets, daily range): BP systolic 132–150; BP diastolic 68–88; PULSE 77–86; RESP 18–20; TEMP 98.1–99.3; O2SAT 94–100
[2017-10-12] MEDS: PROPRANOLOL HCL 40 MG TAB G-TUBE SCH ×4 (00:30→17:55)
[2017-10-12] MEDS: CHLORHEXIDINE GLUCONATE 2 % 1 PACK (2 CLOTHS) TOP SCH (04:00)
[2017-10-12] MEDS: FREE WATER G-TUBE SCH ×6 (04:00→20:00)
[2017-10-12] MEDS: QUEtiapine FUMARATE 25 MG TAB G-TUBE SCH ×3 (05:19→20:29)
[2017-10-12] MEDS: hydrALAZINE HCL 100 MG TAB G-TUBE SCH ×3 (05:19→20:29)
[2017-10-12] MEDS: cloNIDine HCL 0.3 MG TAB G-TUBE SCH ×3 (05:22→20:29)
[2017-10-12] MEDS: INSULIN ASPART SUPPLEMENTAL SCALE SQ SCH ×4 (05:22→17:56)
[2017-10-12] MEDS: DOCUSATE SODIUM 50 MG/SENNA 8.6 MG TAB G-TUBE SCH ×2 (09:00→20:30)
[2017-10-12] MEDS: POLYETHYLENE GLYCOL 17 GM PKG G-TUBE SCH ×2 (09:00→20:30)
[2017-10-12] MEDS: CHLORHEXIDINE GLUCONATE 0.12% 15 ML CUP SWISH-SPIT SCH ×3 (10:24→18:13)
[2017-10-12] MEDS: FAMOTIDINE 20 MG TAB NG SCH ×2 (10:24→20:29)
[2017-10-12] MEDS: FLUTICASONE PROPIONATE 50 MCG/ACT 16 GM NASAL SPRAY EACH NARE SCH (10:25)
[2017-10-12] MEDS: INSULIN DETEMIR 100 UNITS/ML VIAL SQ SCH ×2 (10:25→20:29)
--- NOTE | 2017-10-12 14:00 | HHI.PR ---
Subjective Remarks Patient seen and examined No acute event overnight Afebrile Objective Vitals Vital Signs Date Time Temp Pulse Resp B/P (MAP) Pulse Ox O2 Delivery O2 Flow Rate FiO2 10/12/17 12:00 98.6 77 18 146/88 (107) 98 10/12/17 09:00 T-Piece 5.00 28 10/12/17 09:00 78 10/12/17 08:47 100 T-piece 28 10/12/17 08:00 98.2 78 18 132/68 (89) 97 10/12/17 04:00 80 10/12/17 04:00 99.2 79 20 138/81 (100) 98 10/12/17 04:00 T-Piece 10/12/17 00:00 Room Air 10/12/17 00:00 99.1 86 20 140/80 (100) 94 10/12/17 00:00 85 10/11/17 20:27 100 T-piece 28 10/11/17 20:00 Room Air 10/11/17 20:00 98.9 78 20 141/84 (103) 99 10/11/17 20:00 79 10/11/17 16:00 98.9 80 18 135/70 (91) 100 I/O 10/11/17 10/11/17 10/11/17 10/12/17 10/12/17 10/12/17 07:00 15:00 23:00 07:00 15:00 23:00 Intake Total 1322 ml 619 ml 900 ml Output Total 1150 ml 1175 ml Balance 172 ml -556 ml 900 ml Intake Oral 0 ml 0 ml Tube Feeding 1322 ml 619 ml Other 900 ml Output Urine Total 1150 ml 1175 ml # Bowel Movements 0 0 Result Diagram: 10/11/17 0740 10/11/17 0740 Imaging Last Impressions Chest X-Ray 09/26/17 0000 Signed Impressions: Service Date/Time: Tuesday, September 26, 2017 09:45 - CONCLUSION: Stable examination with left basilar consolidation/effusion. Reyes Guzman MD Maxillofacial CT 09/16/17 0000 Signed Impressions: Service Date/Time: September 01:03 - CONCLUSION: 1. Evidence of acute pansinusitis. 2. Opacification of multiple bilateral mastoid air cells most characteristic of mastoiditis. 3. Mildly prominent cervical chain nodes which may be reactive. Angelo Conn MD Upper Extremity Ultrasound 09/15/17 0000 Signed Impressions: Service Date/Time: Friday, September 15, 2017 17:14 - CONCLUSION: Occlusive thrombus within the left cephalic vein and nonocclusive thrombus within the right cephalic vein. Ric Jack MD Lower Extremity Ultrasound 09/15/17 0000 Signed Impressions: Service Date/Time: Friday, September 15, 2017 16:58 - CONCLUSION: No evidence of DVT within the lower extremities. Ric Jack MD Head CT 09/13/17 0800 Signed Impressions: Service Date/Time: Wednesday, September 13, 2017 09:17 - CONCLUSION: 1. Resolving left basal ganglia hematoma Natan Lagos MD Chest CT 09/13/17 0000 Signed Impressions: Service Date/Time: Wednesday, September 13, 2017 09:28 - CONCLUSION: 1. Bibasilar and left lingular dependent atelectatic changes. Lungs are otherwise clear. 2. Tracheostomy tube with the tip probably positioned above the connie. 3. Compensated cardiomegaly. Reyes Guzman MD Abdomen/Pelvis CT 09/13/17 0000 Signed Impressions: Service Date/Time: Wednesday, September 13, 2017 09:28 - CONCLUSION: 1. There is some stranding in the retroperitoneal perivascular tissues around the distal aorta extending into the bifurcation with a regional borderline lymph nodes. Findings are characteristic of a nonspecific inflammatory process. Findings could represent early retroperitoneal fibrosis.. 2. Urinary bladder is decompressed with some mural thickening in pericystic inflammatory changes possibly representing a chronic cystitis. Nondependent air could be associated with a recent catheterization/instrumentation. 3. Small umbilical and right inguinal hernias only contain fat. 4. Bilateral dependent basilar and left lingular atelectatic changes. Heart size is borderline prominent. 5. Otherwise , bowel is intact without obstruction to explain abdominal distention Reyes Guzman MD Abdomen X-Ray 09/10/17 0600 Signed Impressions: Service Date/Time: Sunday, September 10, 2017 03:56 - CONCLUSION: No significant abnormality is identified. There is mild distention of the colon but there are no findings to suggest bowel obstruction or significant ileus. Ignacio Underwood MD Liver Ultrasound 09/07/17 0000 Signed Impressions: Service Date/Time: Thursday, September 07, 2017 12:37 - CONCLUSION: 1. Unremarkable sonographic appearance of the liver. No evidence for hepatic volume loss or intrahepatic ductal dilatation. 2. No sonographic evidence for cholelithiasis or acute cholecystitis. 3. Mild increased right renal echogenicity may reflect medical renal disease. 4. Small bilateral pleural effusions. 5. Pancreas and inferior pole of the right kidney are obscured by bowel gas and therefore not evaluated. Darrell Robles MD Renal Ultrasound 08/31/17 0000 Signed Impressions: Service Date/Time: Thursday, August 31, 2017 17:42 - CONCLUSION: 1. No evidence of hydronephrosis on either side. 2. Solitary linear echogenic focus in the upper pole parenchyma of the right kidney has similar features to prior examination in January 2017 and possibly represents a calcification. David Snell MD Neck CTA 08/28/17 2347 Signed Impressions: Service Date/Time: Tuesday, August 29, 2017 00:13 - CONCLUSION: Negative carotid CTA. David Snell MD Head CTA 08/28/17 2347 Signed Impressions: Service Date/Time: Tuesday, August 29, 2017 00:13 - CONCLUSION: 1. No evidence of vessel truncation or aneurysm. 2. No abnormal vessels in the region of the large left thalamic hemorrhage. David Snell MD Objective Remarks GENERAL: NAD SKIN: Warm and dry. HEAD: Normocephalic. EYES: No scleral icterus. No injection or drainage. NECK: Supple, trachea midline. No JVD or lymphadenopathy. CARDIOVASCULAR: Regular rate and rhythm without murmurs, gallops, or rubs. RESPIRATORY: Breath sounds equal bilaterally. No accessory muscle use. GASTROINTESTINAL: Abdomen soft, non-tender, nondistended. MUSCULOSKELETAL: No cyanosis, or edema. Neuro: right hemiparesis BACK: Nontender without obvious deformity. No CVA tenderness. Procedures Tracheostomy and PEG placement A/P Problem List: (1) Intracranial hemorrhage ICD Code: I62.9 - Nontraumatic intracranial hemorrhage, unspecified Status: Acute Assessment and Plan Acute encephalopathy - improved Left Thalamic Hemorrhage Intracerebral Hemorrhage - Repeat CT of the head showed improving bleed - Neurosurgery follow-up appreciated; stable for dc to SNF per neurosurgery. - Continue rehabilitation efforts with PT, OT, speech - On Seroquel to control agitated delirium. Roxicodone as needed for pain Anemia likely due to chronic disease. H/H fairly stable. Healthcare associated pneumonia completed the course of antibiotic. UTI: treated. Respiratory failure s/p trach - Tolerating T piece - continue neb treatment. -Patient had angioedema, source unclear and was seen by ENT. He was treated with steroids. Per ENT, expect slow improvement. -Appreciate pulmonology following for trach management Hyperglycemia - - Continue Levemir 20 units SQ q12h - Continue sliding scale insulin with Accu-Cheks. - hemoglobin A1c 9.1. Hypertension - Continue clonidine, amlodipine and propranolol - Continue hydralazine. Nutrition status: - Status post PEG tube continue tube feeds - Continue Free water Acute kidney injury, most likely has CKD per nephrology: Renal function stabilized. - monitor renal function periodically. Physical deconditioning/right sided hemiparesis - OOB to stretcher chair daily - PT/OT following PROPH: - SCD's. Pepcid for GI prophylaxis Jeison Lopez MD Oct 12, 2017 14:00
--- NOTE | 2017-10-12 17:22 | HHI.NSPN ---
(RamaJames) History Chief Complaint: Unable to obtain due to patient's clinical condition. (RamaJames) Interval History 08/29: History of hypertension who was brought to the emergency room per [facility] after being found with altered mental status, right hemiparesis. He had reportedly been seen to be normal approximately 3-1/2 hours prior. Systolic blood pressure greater than 260/130 on initial evaluation. No seizure activity reported. Positive emesis. Per emergency room personnel the patient was responding verbally, difficulty raising his right arm upon initial arrival. He was intubated in the emergency room and a stat CT scan accomplished which has revealed a primarily left thalamic intracranial hemorrhage. 09/01/17: Patient remains intubated and sedated. :09/02: intubated and well sedated, not tolerating sedation vacation due to increase in blood pressure. 09/03/17: Remains on propofol and fentanyl IV for ventilator control. Positive agitation with decreased sedation 09/04/17: Pt sedated on Diprivan and Fentanyl drip. Not following commands. Pt on Cardene drip. Intubated. 09/05/17: Pt sedated on Diprivan and Fentanyl drip. Not following commands. Pt on Cardene drip. Intubated. Pupils 2mm bilaterally, NR bilaterally. 09/06/17: Remains intubated. PEG tube placed today. On Decadron and Benadryl for angioedema. Lisinopril discontinued 09/07. The patient is obtunded but is sedated with propofol. Nursing reports that the patient does have bleeding secondary to his PEG tube being placed yesterday. The family reports that the plan is to do a tracheostomy tomorrow. Nursing does say the patient does withdraw to stimulation, has a cough and gag reflex but his pupils are nonreactive. 09/10: The patient continues to be obtunded although he has sedation infusing at a low dose. He is trached and tolerating a CPAP trial. 09/13: Obtunded versus lethargic. He is not on any sedation. He is trached and mechanically ventilated. He went for a CT brain this morning. Nursing reports that the patient does withdraw to noxious stimulation and that the pupils are sluggish. 09/14: The patient has his eyes open when seen. He continues to be trached and mechanically ventilated. Nursing this morning reports that the patient gave a thumbs up on the left hand to command for him. 09/15: Pt off sedative drips. Pupils 2mm bilaterally slight reaction bilaterally. Not following commands. Not opening eyes. 09/16: When seen this morning the patient appears lethargic. He is trached and on T-piece. Nursing reports that the patient was more alert and did give a thumbs up to command this morning prior to receiving diphenhydramine. He also reported no movement to the right side. 09/17: No acute events overnight. Patient up in chair 09/18: No acute events overnight. Patient remains hypertensive. He is in bed with at his side. 09/19: Persistent hypertension overnight. 09/20/2017: Tracheostomy in place. Upper endoscopy performed 09/19/17 with findings of small amount of bleeding at the PEG site. 09/22: The patient is awake when seen. He does interact. 09/23: This morning the patient does have his eyes closed but opens them to voice. He does follow commands with the left side extremities and it appears he does track. 09/24: When seen the patient is awake and looks towards my voice. He does follow commands on the left and appears to track with the eyes. No movement of the right noted. 09/27: The patient is moving the left arm spontaneously to wipe his face. He continues to have some mild swelling to the tongue. He was transferred from [facility] to a regular med/surg floor on . 09/28: This afternoon the patient is asleep but awakens to noxious stimulation. His family states that he was extremely tired. Once awake he did interact. 10/05: When seen this morning the patient has his eyes closed. Nursing states that the patient has been sleepy every time she has been in the room today. He did respond and open his eyes to central noxious stimulation and follow some commands. 10/12: The patient is asleep when this practitioner enters the room. He opens his eyes to voice and moves the left side to command and spontaneously. He does weakly try to say a couple word. He is trached and on a T-piece. Nursing reported that a Passey Balta valve was tried but the patient had difficulty with his respirations. (James Ontiveros) System Review Comments Unable to obtain due to patient's clinical condition. (James Ontiveros) Exam Results 10/10/17 10/10/17 10/11/17 10/11/17 10/12/17 10/12/17 06:00 18:00 06:00 18:00 06:00 18:00 Intake Total 720 ml 0 ml 1322 ml 1519 ml Output Total 350 ml 1150 ml 1175 ml Balance 370 ml -1150 ml 147 ml 1519 ml Intake Oral 0 ml 0 ml 0 ml Tube Feeding 720 ml 1322 ml 619 ml Other 900 ml Output Urine Total 350 ml 1150 ml 1175 ml # Voids 8 # Bowel Movements 1 1 0 Vital Signs Date Time Temp Pulse Resp B/P (MAP) Pulse Ox O2 Delivery O2 Flow Rate FiO2 10/12/17 12:00 98.6 77 18 146/88 (107) 98 10/12/17 09:00 T-Piece 5.00 28 10/12/17 09:00 78 10/12/17 08:47 100 T-piece 10/12/17 08:00 98.2 78 18 132/68 (89) 97 10/12/17 04:00 80 10/12/17 04:00 99.2 79 20 138/81 (100) 98 10/12/17 04:00 T-Piece 10/12/17 00:00 Room Air 10/12/17 00:00 99.1 86 20 140/80 (100) 94 10/12/17 00:00 85 10/11/17 20:27 100 T-piece 28 10/11/17 20:00 Room Air 10/11/17 20:00 98.9 78 20 141/84 (103) 99 10/11/17 20:00 79 10/11/17 16:00 98.9 80 18 135/70 (91) 100 10/11/17 12:00 98.4 79 18 142/87 (105) 98 10/11/17 08:40 98 T-piece 28 10/11/17 08:00 98.2 75 18 127/70 (89) 98 10/11/17 05:30 98.4 79 18 141/81 (101) 95 10/11/17 04:00 Room Air 10/11/17 03:58 81 10/11/17 03:26 97 T-piece 28 10/11/17 00:05 80 10/11/17 00:00 T-Piece 5.00 28 Humidified 10/10/17 23:55 98.0 79 18 145/83 (103) 97 10/10/17 21:00 98.0 84 17 168/86 (113) 93 10/10/17 20:04 78 10/10/17 20:00 T-Piece 5.00 28 Humidified 10/10/17 16:00 83 10/10/17 15:58 99.5 85 18 129/65 (86) 96 10/10/17 12:00 79 10/10/17 12:00 99.4 77 18 145/79 (101) 97 10/10/17 08:00 99.5 78 18 128/72 (90) 99 10/10/17 08:00 78 10/10/17 07:00 T-Piece 5.00 28 10/10/17 06:05 T-Piece 5.00 28 10/10/17 04:00 100.4 75 17 146/81 (102) 98 10/10/17 03:46 75 10/10/17 00:00 99.8 83 18 137/85 (102) 96 10/09/17 23:48 81 10/09/17 22:36 99 T-piece 5.00 28 10/09/17 20:00 T-Piece 5.00 28 10/09/17 20:00 99.4 77 18 147/83 (104) 99 10/09/17 19:35 77 (James Ontiveros) Physical Examination GENERAL: Asleep but awakens to voice, readily interacts, no evident distress. HEENT: Normocephalic, atraumatic. Tongue appears essentially normal. MUSCULOSKELETAL: No evident clubbing or deformity. NEUROLOGICAL: Asleep but awakens to voice. Left pupil 3 mm & right pupil 4 mm, slight reaction. Tries to verbalise, trached. Follows simple commands. When asked to show 2 fingers with the left hand the patient was able to do so. Moves left side extremities to command with 4+/5 muscle strength, weak superintendent plant with right hand but not able to lift extremity off bed, no movement of RLE to local noxious stimuli but he does indicate he feels it. (James Ontiveros) Lab, Micro, Other Results Laboratory Tests Test 10/11/17 07:40 White Blood Count 6.2 TH/MM3 Red Blood Count 3.03 MIL/MM3 Hemoglobin 8.1 GM/DL Hematocrit 24.5 % Mean Corpuscular Volume 80.8 FL Mean Corpuscular Hemoglobin 26.6 PG Mean Corpuscular Hemoglobin Concent 32.9 % Red Cell Distribution Width 14.9 % Platelet Count 332 TH/MM3 Mean Platelet Volume 8.3 FL Neutrophils (%) (Auto) 64.7 % Lymphocytes (%) (Auto) 22.3 % Monocytes (%) (Auto) 9.3 % Eosinophils (%) (Auto) 3.0 % Basophils (%) (Auto) 0.7 % Neutrophils # (Auto) 4.0 TH/MM3 Lymphocytes # (Auto) 1.4 TH/MM3 Monocytes # (Auto) 0.6 TH/MM3 Eosinophils # (Auto) 0.2 TH/MM3 Basophils # (Auto) 0.0 TH/MM3 CBC Comment DIFF FINAL Differential Comment Blood Urea Nitrogen 18 MG/DL Creatinine 0.87 MG/DL Random Glucose 140 MG/DL Albumin 2.3 GM/DL Calcium Level 9.0 MG/DL Phosphorus Level 4.0 MG/DL Magnesium Level 2.0 MG/DL Sodium Level 140 MEQ/L Potassium Level 3.5 MEQ/L Chloride Level 100 MEQ/L Carbon Dioxide Level 33.4 MEQ/L Anion Gap 7 MEQ/L Estimat Glomerular Filtration Rate 116 ML/MIN (James Ontiveros) Medical Decision Making Impression and Plan Impression: 1. Large thalamic intracranial hemorrhage. 2. Hypertension, improved 3. Klebsiella pneumonia, resolved The patient is doing better w/good neurological function to left-side extremities, minimal improvement in right hemiplegia. CT brain w/improvement of left thalamic haemorrhage, decreased midline shift, blood noted in posterior horns, no acute findings. Plan: Primary management per Hospitalist. Neuro checks. Stat CT brain for any decline in neuro status. Continue full supportive care measures per family. The patient is stable for discharge to a SNF from NSGY's perspective. Continue Passey Balta valve trials. (James Ontiveros) Attending Statement The exam, history, and the medical decision-making described in the above note were completed with the assistance of the mid-level provider. I reviewed and agree with the findings presented. I attest that I had a [id number] encounter with the patient on the same day, and personally performed and documented my assessment and findings in the medical record. On my examination of , the patient opened his eyes to voice. Follows simple commands to grasp left upper extremity with some purposeful left upper extremity movements. Neurologic function gradually improving. Tracheostomy in place. No further neurosurgical intervention anticipated that this point. Stable for discharge to rehabilitation from neurosurgery standpoint (Orville Tinajero MD) James Ontiveros Oct 12, 2017 17:22 Orville Tinajero MD Oct 14, 2017 18:50
--- NOTE | 2017-10-12 18:38 | HHI.PR ---
Subjective Remarks 46 YOAA male with ICH,RF,Trach Moves left ext Looks around, able to communicate Good cough efforts no fever Objective Vital Signs Vital Signs Date Time Temp Pulse Resp B/P (MAP) Pulse Ox O2 Delivery O2 Flow Rate FiO2 10/12/17 18:01 Room Air 10/12/17 16:00 84 10/12/17 16:00 99.3 85 18 137/74 (95) 98 10/12/17 12:00 98.6 77 18 146/88 (107) 98 10/12/17 12:00 86 10/12/17 09:00 T-Piece 5.00 28 10/12/17 09:00 78 10/12/17 08:47 100 T-piece 28 10/12/17 08:00 98.2 78 18 132/68 (89) 97 10/12/17 04:00 80 10/12/17 04:00 99.2 79 20 138/81 (100) 98 10/12/17 04:00 T-Piece 10/12/17 00:00 Room Air 10/12/17 00:00 99.1 86 20 140/80 (100) 94 10/12/17 00:00 85 10/11/17 20:27 100 T-piece 28 10/11/17 20:00 Room Air 10/11/17 20:00 98.9 78 20 141/84 (103) 99 10/11/17 20:00 79 I/O 10/11/17 10/11/17 10/11/17 10/12/17 10/12/17 10/12/17 07:00 15:00 23:00 07:00 15:00 23:00 Intake Total 1322 ml 619 ml 900 ml 0 ml Output Total 1150 ml 1175 ml 1200 ml Balance 172 ml -556 ml 900 ml -1200 ml Intake Oral 0 ml 0 ml 0 ml Tube Feeding 1322 ml 619 ml Other 900 ml Output Urine Total 1150 ml 1175 ml 1200 ml # Bowel Movements 0 0 0 Result Diagram: 10/11/1740 10/11/17 0740 Objective Remarks GENERAL: WBWN AA male, NAD SKIN: Warm and dry. HEAD: Normocephalic. EYES: No scleral icterus. No injection or drainage. NECK: Supple, trachea midline. No JVD or lymphadenopathy. trach CARDIOVASCULAR: Regular rate and rhythm without murmurs, gallops, or rubs. RESPIRATORY: Breath sounds equal bilaterally. No accessory muscle use. GASTROINTESTINAL: Abdomen soft, non-tender, nondistended. MUSCULOSKELETAL: No cyanosis, or edema. BACK: Nontender without obvious deformity. No CVA tenderness. A/P Assessment and Plan Resp failure S/P Trach HTN ICH, right side flacid Pn PLAN Trach care Aerosol nebs Cont Abx Tube feeding Suction prn Daily PMV trial Jesus Villar MD Oct 12, 2017 18:38
[2017-10-12] MEDS: ATORVASTATIN 40 MG TAB DOBHOFF SCH (20:30)
[2017-10-13] VITALS (10 sets, daily range): BP systolic 137–160; BP diastolic 69–84; PULSE 77–87; RESP 18–20; TEMP 98–99.8; O2SAT 94–99
[2017-10-13] MEDS: PROPRANOLOL HCL 40 MG TAB G-TUBE SCH ×5 (00:12→23:06)
[2017-10-13] MEDS: CHLORHEXIDINE GLUCONATE 2 % 1 PACK (2 CLOTHS) TOP SCH (03:59)
[2017-10-13] MEDS: FREE WATER G-TUBE SCH ×7 (03:59→23:07)
[2017-10-13] MEDS: INSULIN ASPART SUPPLEMENTAL SCALE SQ SCH ×5 (05:14→23:07)
[2017-10-13] MEDS: hydrALAZINE HCL 100 MG TAB G-TUBE SCH ×3 (05:14→20:58)
[2017-10-13] MEDS: cloNIDine HCL 0.3 MG TAB G-TUBE SCH ×3 (05:14→20:58)
[2017-10-13] MEDS: QUEtiapine FUMARATE 25 MG TAB G-TUBE SCH ×3 (05:14→20:58)
[2017-10-13] MEDS: DOCUSATE SODIUM 50 MG/SENNA 8.6 MG TAB G-TUBE SCH ×2 (09:00→20:56)
[2017-10-13] MEDS: FLUTICASONE PROPIONATE 50 MCG/ACT 16 GM NASAL SPRAY EACH NARE SCH (09:00)
[2017-10-13] MEDS: POLYETHYLENE GLYCOL 17 GM PKG G-TUBE SCH ×2 (09:00→20:56)
[2017-10-13] MEDS: FAMOTIDINE 20 MG TAB NG SCH ×2 (09:15→20:58)
[2017-10-13] MEDS: INSULIN DETEMIR 100 UNITS/ML VIAL SQ SCH ×2 (09:18→20:58)
[2017-10-13] MEDS: CHLORHEXIDINE GLUCONATE 0.12% 15 ML CUP SWISH-SPIT SCH ×3 (09:21→18:00)
--- NOTE | 2017-10-13 11:48 | HHI.PR ---
Subjective Remarks Patient seen and examined, no acute event overnight. He was resting. Vitals stable and afebrile. Objective Vitals Vital Signs Date Time Temp Pulse Resp B/P (MAP) Pulse Ox O2 Delivery O2 Flow Rate FiO2 10/13/17 11:13 97 T-piece 28 10/13/17 09:00 79 10/13/17 09:00 Room Air 10/13/17 08:00 98.6 80 18 144/69 (94) 94 10/13/17 04:00 98.6 80 20 160/81 (107) 95 10/13/17 04:00 T-Piece 10/13/17 04:00 80 10/13/17 00:00 T-Piece 10/13/17 00:00 82 10/13/17 00:00 99.7 77 20 137/75 (95) 99 10/12/17 21:35 96 28 10/12/17 20:00 82 10/12/17 20:00 98.1 84 20 150/81 (104) 95 10/12/17 20:00 Room Air 10/12/17 18:01 Room Air 10/12/17 16:00 84 10/12/17 16:00 99.3 85 18 137/74 (95) 98 10/12/17 12:00 98.6 77 18 146/88 (107) 98 10/12/17 12:00 86 I/O 10/12/17 10/12/17 10/12/17 10/13/17 10/13/17 10/13/17 07:00 15:00 23:00 07:00 15:00 23:00 Intake Total 900 ml 0 ml 2126 ml Output Total 1200 ml 750 ml Balance 900 ml -1200 ml 1376 ml Intake Oral 0 ml 0 ml Tube Feeding 1226 ml Other 900 ml 900 ml Output Urine Total 1200 ml 750 ml # Bowel Movements 0 1 Result Diagram: 10/11/17 0740 10/11/17 0740 Objective Remarks GENERAL: NAD SKIN: Warm and dry. HEAD: Normocephalic. EYES: No scleral icterus. No injection or drainage. NECK: Supple, trachea midline. No JVD or lymphadenopathy. CARDIOVASCULAR: Regular rate and rhythm without murmurs, gallops, or rubs. RESPIRATORY: Breath sounds equal bilaterally. No accessory muscle use. GASTROINTESTINAL: Abdomen soft, non-tender, nondistended. MUSCULOSKELETAL: No cyanosis, or edema. Neuro: right hemiparesis BACK: Nontender without obvious deformity. No CVA tenderness. Procedures Tracheostomy and PEG placement A/P Problem List: (1) Intracranial hemorrhage ICD Code: I62.9 - Nontraumatic intracranial hemorrhage, unspecified Status: Acute Assessment and Plan 46-year-old man with Acute encephalopathy - improved Left Thalamic Hemorrhage Intracerebral Hemorrhage - Repeat CT of the head showed improving bleed - Neurosurgery follow-up appreciated; stable for dc to SNF per neurosurgery. - Continue rehabilitation efforts with PT, OT, speech - On Seroquel to control agitated delirium. Roxicodone as needed for pain Anemia likely due to chronic disease. H/H fairly stable. Healthcare associated pneumonia completed the course of antibiotic. UTI: treated. Respiratory failure s/p trach - Tolerating T piece - continue neb treatment. -Patient had angioedema, source unclear and was seen by ENT. He was treated with steroids. Per ENT, expect slow improvement. -Appreciate pulmonology following for trach management Hyperglycemia - - Continue Levemir 20 units SQ q12h - Continue sliding scale insulin with Accu-Cheks. - hemoglobin A1c 9.1. Hypertension - Continue clonidine, amlodipine and propranolol - Continue hydralazine. Nutrition status: - Status post PEG tube continue tube feeds - Continue Free water Acute kidney injury, most likely has CKD per nephrology: Renal function stabilized. - monitor renal function periodically. Physical deconditioning/right sided hemiparesis - OOB to stretcher chair daily - PT/OT following PROPH: - SCD's. Pepcid for GI prophylaxis Jeison Lopez MD Oct 13, 2017 11:47
--- NOTE | 2017-10-13 18:53 | HHI.PR ---
Subjective Remarks 46 YOAA male with ICH,RF,Trach Moves left ext Looks around, able to communicate Good cough efforts no fever Objective Vital Signs Vital Signs Date Time Temp Pulse Resp B/P (MAP) Pulse Ox O2 Delivery O2 Flow Rate FiO2 10/13/17 17:54 98 T-piece 6.00 28 10/13/17 16:00 99.8 84 18 157/75 (102) 98 10/13/17 12:00 98.0 84 18 150/82 (104) 98 10/13/17 12:00 Room Air 10/13/17 12:00 87 10/13/17 11:13 97 T-piece 28 10/13/17 09:00 79 10/13/17 09:00 Room Air 10/13/17 08:00 98.6 80 18 144/69 (94) 94 10/13/17 04:00 98.6 80 20 160/81 (107) 95 10/13/17 04:00 T-Piece 10/13/17 04:00 80 10/13/17 00:00 T-Piece 10/13/17 00:00 82 10/13/17 00:00 99.7 77 20 137/75 (95) 99 10/12/17 21:35 96 28 10/12/17 20:00 82 10/12/17 20:00 98.1 84 20 150/81 (104) 95 10/12/17 20:00 Room Air I/O 10/12/17 10/12/17 10/12/17 10/13/17 10/13/17 10/13/17 07:00 15:00 23:00 07:00 15:00 23:00 Intake Total 900 ml 0 ml 2126 ml 0 ml Output Total 1200 ml 750 ml 2600 ml Balance 900 ml -1200 ml 1376 ml -2600 ml Intake Oral 0 ml 0 ml 0 ml Tube Feeding 1226 ml Other 900 ml 900 ml Output Urine Total 1200 ml 750 ml 2600 ml # Bowel Movements 0 1 0 Result Diagram: 10/11/17 0740 10/11/17 0740 Objective Remarks GENERAL: WBWN AA male, NAD SKIN: Warm and dry. HEAD: Normocephalic. EYES: No scleral icterus. No injection or drainage. NECK: Supple, trachea midline. No JVD or lymphadenopathy. trach CARDIOVASCULAR: Regular rate and rhythm without murmurs, gallops, or rubs. RESPIRATORY: Breath sounds equal bilaterally. No accessory muscle use. GASTROINTESTINAL: Abdomen soft, non-tender, nondistended. MUSCULOSKELETAL: No cyanosis, or edema. BACK: Nontender without obvious deformity. No CVA tenderness. A/P Assessment and Plan Resp failure S/P Trach HTN ICH, right side flacid Pn PLAN Trach care Aerosol nebs Cont Abx Tube feeding Suction prn Daily PMV trial Trach capping trial in AM Jesus Villar MD Oct 13, 2017 18:53
[2017-10-13] MEDS: ATORVASTATIN 40 MG TAB DOBHOFF SCH (20:58)
[2017-10-14] VITALS (9 sets, daily range): BP systolic 118–137; BP diastolic 69–89; PULSE 77–84; RESP 18–20; TEMP 98.2–99; O2SAT 92–99
[2017-10-14] MEDS: CHLORHEXIDINE GLUCONATE 2 % 1 PACK (2 CLOTHS) TOP SCH (02:19)
[2017-10-14] MEDS: FREE WATER G-TUBE SCH ×5 (03:15→20:00)
[2017-10-14] MEDS: PROPRANOLOL HCL 40 MG TAB G-TUBE SCH ×3 (05:31→18:23)
[2017-10-14] MEDS: hydrALAZINE HCL 100 MG TAB G-TUBE SCH ×3 (05:31→21:59)
[2017-10-14] MEDS: QUEtiapine FUMARATE 25 MG TAB G-TUBE SCH ×3 (05:31→21:59)
[2017-10-14] MEDS: INSULIN ASPART SUPPLEMENTAL SCALE SQ SCH ×3 (05:32→19:00)
[2017-10-14] MEDS: cloNIDine HCL 0.3 MG TAB G-TUBE SCH ×3 (05:32→21:59)
[2017-10-14] MEDS: FLUTICASONE PROPIONATE 50 MCG/ACT 16 GM NASAL SPRAY EACH NARE SCH (09:00)
[2017-10-14] MEDS: CHLORHEXIDINE GLUCONATE 0.12% 15 ML CUP SWISH-SPIT SCH ×3 (09:00→18:23)
[2017-10-14] MEDS: FAMOTIDINE 20 MG TAB NG SCH ×2 (09:45→21:59)
[2017-10-14] MEDS: POLYETHYLENE GLYCOL 17 GM PKG G-TUBE SCH ×2 (09:45→21:59)
[2017-10-14] MEDS: DOCUSATE SODIUM 50 MG/SENNA 8.6 MG TAB G-TUBE SCH ×2 (09:45→21:59)
[2017-10-14] MEDS: INSULIN DETEMIR 100 UNITS/ML VIAL SQ SCH ×2 (09:46→21:59)
--- NOTE | 2017-10-14 10:45 | HHI.PR ---
Subjective Remarks Patient seen and examined this a.m. He has refused to work with PT this a.m. Objective Vitals Vital Signs Date Time Temp Pulse Resp B/P (MAP) Pulse Ox O2 Delivery O2 Flow Rate FiO2 10/14/17 08:00 98.6 77 18 128/73 (91) 99 10/14/17 04:41 Trach Collar 6.00 28 T-Piece 10/14/17 04:01 81 10/14/17 04:00 99.0 82 20 136/78 (97) 97 10/14/17 00:00 T-Piece 6.00 28 10/14/17 00:00 79 10/14/17 00:00 98.8 80 20 136/82 (100) 98 10/13/17 20:20 81 10/13/17 20:00 Room Air 10/13/17 20:00 99.6 84 20 147/84 (105) 95 10/13/17 19:19 Room Air 10/13/17 17:54 98 T-piece 6.00 28 10/13/17 16:00 86 10/13/17 16:00 99.8 84 18 157/75 (102) 98 10/13/17 12:00 98.0 84 18 150/82 (104) 98 10/13/17 12:00 Room Air 10/13/17 12:00 87 10/13/17 11:13 97 T-piece 28 I/O 10/13/17 10/13/17 10/13/17 10/14/17 10/14/17 10/14/17 07:00 15:00 23:00 07:00 15:00 23:00 Intake Total 2126 ml 0 ml 0 ml Output Total 750 ml 2600 ml 1200 ml Balance 1376 ml -2600 ml -1200 ml Intake Oral 0 ml 0 ml 0 ml Tube Feeding 1226 ml Other 900 ml Output Urine Total 750 ml 2600 ml 1200 ml # Bowel Movements 1 0 0 Result Diagram: 10/11/1740 10/11/17 0740 Objective Remarks GENERAL: NAD SKIN: Warm and dry. HEAD: Normocephalic. EYES: No scleral icterus. No injection or drainage. NECK: Supple, trachea midline. No JVD or lymphadenopathy. CARDIOVASCULAR: Regular rate and rhythm without murmurs, gallops, or rubs. RESPIRATORY: Breath sounds equal bilaterally. No accessory muscle use. GASTROINTESTINAL: Abdomen soft, non-tender, nondistended. MUSCULOSKELETAL: No cyanosis, or edema. Neuro: right hemiparesis BACK: Nontender without obvious deformity. No CVA tenderness. Procedures Tracheostomy and PEG placement A/P Problem List: (1) Intracranial hemorrhage ICD Code: I62.9 - Nontraumatic intracranial hemorrhage, unspecified Status: Acute Assessment and Plan 46-year-old man with Acute encephalopathy - improved Left Thalamic Hemorrhage Intracerebral Hemorrhage - Repeat CT of the head showed improving bleed - Neurosurgery follow-up appreciated; stable for dc to SNF per neurosurgery. - Continue rehabilitation efforts with PT, OT, speech - On Seroquel to control agitated delirium. Roxicodone as needed for pain Anemia likely due to chronic disease. H/H fairly stable. Healthcare associated pneumonia completed the course of antibiotic. UTI: treated. Respiratory failure s/p trach - Tolerating T piece - continue neb treatment. -Patient had angioedema, source unclear and was seen by ENT. He was treated with steroids. Per ENT, expect slow improvement. -Appreciate pulmonology following for trach management -Plan for trach capping this a.m. Hyperglycemia - - Continue Levemir 20 units SQ q12h - Continue sliding scale insulin with Accu-Cheks. - hemoglobin A1c 9.1. Hypertension - Continue clonidine, amlodipine and propranolol - Continue hydralazine. Nutrition status: - Status post PEG tube continue tube feeds - Continue Free water Acute kidney injury, most likely has CKD per nephrology: Renal function stabilized. - monitor renal function periodically. Physical deconditioning/right sided hemiparesis - OOB to stretcher chair daily - PT/OT following PROPH: - SCD's. Pepcid for GI prophylaxis Jeison Lopez MD Oct 14, 2017 10:45
--- NOTE | 2017-10-14 19:37 | HHI.PR ---
Subjective Remarks 46 YOAA male with ICH,RF,Trach Moves left ext Looks around, able to communicate Good cough efforts no fever Did't tolerate trach capping Hungry, wants to eat Objective Vital Signs Vital Signs Date Time Temp Pulse Resp B/P (MAP) Pulse Ox O2 Delivery O2 Flow Rate FiO2 10/14/17 16:00 98.2 83 18 127/71 (89) 97 10/14/17 14:00 Trach Collar 6.00 28 T-Piece 10/14/17 12:24 96 T-piece 28 10/14/17 12:00 98.6 79 18 137/89 (105) 99 10/14/17 08:00 98.6 77 18 128/73 (91) 99 10/14/17 04:41 Trach Collar 6.00 28 T-Piece 10/14/17 04:01 81 10/14/17 04:00 99.0 82 20 136/78 (97) 97 10/14/17 00:00 T-Piece 6.00 28 10/14/17 00:00 79 10/14/17 00:00 98.8 80 20 136/82 (100) 98 10/13/17 20:20 81 10/13/17 20:00 Room Air 10/13/17 20:00 99.6 84 20 147/84 (105) 95 I/O 10/13/17 10/13/17 10/13/17 10/14/17 10/14/17 10/14/17 07:00 15:00 23:00 07:00 15:00 23:00 Intake Total 2126 ml 0 ml 0 ml 840 ml Output Total 750 ml 2600 ml 1200 ml 300 ml Balance 1376 ml -2600 ml -1200 ml 540 ml Intake Oral 0 ml 0 ml 0 ml 0 ml Tube Feeding 1226 ml 540 ml Other 900 ml 300 ml Output Urine Total 750 ml 2600 ml 1200 ml 300 ml # Voids 2 # Bowel Movements 1 0 0 2 Result Diagram: 10/11/1740 10/11/17739 Objective Remarks GENERAL: WBWN AA male, NAD SKIN: Warm and dry. HEAD: Normocephalic. EYES: No scleral icterus. No injection or drainage. NECK: Supple, trachea midline. No JVD or lymphadenopathy. trach CARDIOVASCULAR: Regular rate and rhythm without murmurs, gallops, or rubs. RESPIRATORY: Breath sounds equal bilaterally. No accessory muscle use. GASTROINTESTINAL: Abdomen soft, non-tender, nondistended. MUSCULOSKELETAL: No cyanosis, or edema. BACK: Nontender without obvious deformity. No CVA tenderness. 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
[2017-10-14] MEDS: ATORVASTATIN 40 MG TAB DOBHOFF SCH (21:59)
[2017-10-15] VITALS (13 sets, daily range): BP systolic 123–161; BP diastolic 67–88; PULSE 76–91; RESP 16–20; TEMP 97.8–98.8; O2SAT 95–100
[2017-10-15] MEDS: FREE WATER G-TUBE SCH ×7 (03:31→23:33)
[2017-10-15] MEDS: CHLORHEXIDINE GLUCONATE 2 % 1 PACK (2 CLOTHS) TOP SCH (03:31)
[2017-10-15] MEDS: hydrALAZINE HCL 100 MG TAB G-TUBE SCH ×3 (05:33→23:05)
[2017-10-15] MEDS: INSULIN ASPART SUPPLEMENTAL SCALE SQ SCH ×5 (05:33→23:27)
[2017-10-15] MEDS: PROPRANOLOL HCL 40 MG TAB G-TUBE SCH ×5 (05:33→23:33)
[2017-10-15] MEDS: cloNIDine HCL 0.3 MG TAB G-TUBE SCH ×3 (05:33→23:06)
[2017-10-15] MEDS: QUEtiapine FUMARATE 25 MG TAB G-TUBE SCH ×3 (05:33→23:06)
[2017-10-15] MEDS: POLYETHYLENE GLYCOL 17 GM PKG G-TUBE SCH ×2 (10:07→23:05)
[2017-10-15] MEDS: DOCUSATE SODIUM 50 MG/SENNA 8.6 MG TAB G-TUBE SCH ×2 (10:08→23:05)
[2017-10-15] MEDS: FAMOTIDINE 20 MG TAB NG SCH ×2 (10:08→23:06)
[2017-10-15] MEDS: INSULIN DETEMIR 100 UNITS/ML VIAL SQ SCH ×2 (10:08→23:06)
[2017-10-15] MEDS: CHLORHEXIDINE GLUCONATE 0.12% 15 ML CUP SWISH-SPIT SCH ×3 (10:08→18:00)
[2017-10-15] MEDS: oxyCODONE HCL ORAL CONC 5 MG/0.25 ML SYRINGE G-TUBE PRN (12:00)
--- NOTE | 2017-10-15 13:03 | HHI.PR ---
Subjective Remarks Patient seen and examined didn't tolerate trach capping yesterday Objective Vitals Vital Signs Date Time Temp Pulse Resp B/P (MAP) Pulse Ox O2 Delivery O2 Flow Rate FiO2 10/15/17 12:53 97.8 78 18 146/86 (106) 99 10/15/17 10:41 98 T-piece 28 10/15/17 08:43 98.7 76 20 128/74 (92) 96 10/15/17 05:13 79 10/15/17 04:00 98.2 79 16 136/75 (95) 100 10/15/17 00:19 85 10/15/17 00:00 98.5 88 17 123/67 (85) 98 10/14/17 22:24 99 T-piece 28 10/14/17 20:00 80 10/14/17 20:00 98.5 84 18 118/69 (85) 92 10/14/17 19:46 T-Piece 6.00 28 10/14/17 16:00 98.2 83 18 127/71 (89) 97 10/14/17 14:00 Trach Collar 6.00 28 T-Piece I/O 10/14/17 10/14/17 10/14/17 10/15/17 10/15/17 10/15/17 07:00 15:00 23:00 07:00 15:00 23:00 Intake Total 0 ml 840 ml 1269 ml Output Total 1200 ml 300 ml 800 ml Balance -1200 ml 540 ml 469 ml Intake Oral 0 ml 0 ml 0 ml Tube Feeding 540 ml 369 ml Other 300 ml 900 ml Output Urine Total 1200 ml 300 ml 800 ml # Voids 2 # Bowel Movements 0 2 Result Diagram: 10/11/17 0740 10/11/17 0740 Objective Remarks GENERAL: NAD SKIN: Warm and dry. HEAD: Normocephalic. EYES: No scleral icterus. No injection or drainage. NECK: Supple, trachea midline. No JVD or lymphadenopathy. CARDIOVASCULAR: Regular rate and rhythm without murmurs, gallops, or rubs. RESPIRATORY: Breath sounds equal bilaterally. No accessory muscle use. GASTROINTESTINAL: Abdomen soft, non-tender, nondistended. MUSCULOSKELETAL: No cyanosis, or edema. Neuro: right hemiparesis BACK: Nontender without obvious deformity. No CVA tenderness. Procedures Tracheostomy and PEG placement A/P Problem List: (1) Intracranial hemorrhage ICD Code: I62.9 - Nontraumatic intracranial hemorrhage, unspecified Status: Acute Assessment and Plan 46-year-old man with Acute encephalopathy - improved Left Thalamic Hemorrhage Intracerebral Hemorrhage - Repeat CT of the head showed improving bleed - Neurosurgery follow-up appreciated; stable for dc to SNF per neurosurgery. - Continue rehabilitation efforts with PT, OT, speech - On Seroquel to control agitated delirium. Roxicodone as needed for pain Anemia likely due to chronic disease. H/H fairly stable. Healthcare associated pneumonia completed the course of antibiotic. UTI: treated. Respiratory failure s/p trach - Tolerating T piece - continue neb treatment. -Patient had angioedema, source unclear and was seen by ENT. He was treated with steroids. Per ENT, expect slow improvement. -Appreciate pulmonology following for trach management -Did not tolerate trach capping yesterday Hyperglycemia - - Continue Levemir 20 units SQ q12h - Continue sliding scale insulin with Accu-Cheks. - hemoglobin A1c 9.1. Hypertension - Continue clonidine, amlodipine and propranolol - Continue hydralazine. Nutrition status: - Status post PEG tube continue tube feeds - Continue Free water Acute kidney injury, most likely has CKD per nephrology: Renal function stabilized. - monitor renal function periodically. Physical deconditioning/right sided hemiparesis - OOB to stretcher chair daily - PT/OT following PROPH: - SCD's. Pepcid for GI prophylaxis Jeison Lopez MD Oct 15, 2017 13:03
[2017-10-15] MEDS: FLUTICASONE PROPIONATE 50 MCG/ACT 16 GM NASAL SPRAY EACH NARE SCH (14:57)
--- NOTE | 2017-10-15 18:08 | HHI.PR ---
Subjective Remarks 46 YOAA male with ICH,RF,Trach Moves left ext Looks around, able to communicate Good cough efforts no fever Did't tolerate trach capping Objective Vital Signs Vital Signs Date Time Temp Pulse Resp B/P (MAP) Pulse Ox O2 Delivery O2 Flow Rate FiO2 10/15/17 16:16 98.4 79 18 161/88 (112) 95 10/15/17 14:44 20 10/15/17 12:53 97.8 78 18 146/86 (106) 99 10/15/17 10:41 98 T-piece 28 10/15/17 08:43 98.7 76 20 128/74 (92) 96 10/15/17 05:13 79 10/15/17 04:00 98.2 79 16 136/75 (95) 100 10/15/17 00:19 85 10/15/17 00:00 98.5 88 17 123/67 (85) 98 10/14/17 22:24 99 T-piece 28 10/14/17 20:00 80 10/14/17 20:00 98.5 84 18 118/69 (85) 92 10/14/17 19:46 T-Piece 6.00 28 I/O 10/14/17 10/14/17 10/14/17 10/15/17 10/15/17 10/15/17 07:00 15:00 23:00 07:00 15:00 23:00 Intake Total 0 ml 840 ml 1269 ml Output Total 1200 ml 300 ml 800 ml Balance -1200 ml 540 ml 469 ml Intake Oral 0 ml 0 ml 0 ml Tube Feeding 540 ml 369 ml Other 300 ml 900 ml Output Urine Total 1200 ml 300 ml 800 ml # Voids 2 # Bowel Movements 0 2 Result Diagram: 10/11/17 0740 10/11/17 0740 Objective Remarks GENERAL: WBWN AA male, NAD SKIN: Warm and dry. HEAD: Normocephalic. EYES: No scleral icterus. No injection or drainage. NECK: Supple, trachea midline. No JVD or lymphadenopathy. trach CARDIOVASCULAR: Regular rate and rhythm without murmurs, gallops, or rubs. RESPIRATORY: Breath sounds equal bilaterally. No accessory muscle use. GASTROINTESTINAL: Abdomen soft, non-tender, nondistended. MUSCULOSKELETAL: No cyanosis, or edema. BACK: Nontender without obvious deformity. No CVA tenderness. A/P Assessment and Plan Resp failure S/P Trach HTN ICH, right side flacid Pn PLAN Trach care Aerosol nebs Cont Abx Tube feeding Suction prn Daily PMV trial Jesus Villar MD Oct 15, 2017 18:08
[2017-10-15] MEDS: ATORVASTATIN 40 MG TAB DOBHOFF SCH (23:06)
[2017-10-15] MEDS: ACETAMINOPHEN 325 MG TAB G-TUBE PRN (23:34)
[2017-10-16] VITALS (11 sets, daily range): BP systolic 113–158; BP diastolic 64–85; PULSE 72–98; RESP 17–20; TEMP 98–101.1; O2SAT 97–100
[2017-10-16] MEDS: FREE WATER G-TUBE SCH ×5 (04:00→20:00)
[2017-10-16] MEDS: CHLORHEXIDINE GLUCONATE 2 % 1 PACK (2 CLOTHS) TOP SCH (04:00)
[2017-10-16] MEDS: INSULIN ASPART SUPPLEMENTAL SCALE SQ SCH ×3 (06:00→18:27)
[2017-10-16] MEDS: PROPRANOLOL HCL 40 MG TAB G-TUBE SCH ×3 (06:38→18:00)
[2017-10-16] MEDS: hydrALAZINE HCL 100 MG TAB G-TUBE SCH ×3 (06:38→22:56)
[2017-10-16] MEDS: cloNIDine HCL 0.3 MG TAB G-TUBE SCH ×3 (06:38→23:04)
[2017-10-16] MEDS: QUEtiapine FUMARATE 25 MG TAB G-TUBE SCH ×3 (06:38→22:56)
[2017-10-16] MEDS: DOCUSATE SODIUM 50 MG/SENNA 8.6 MG TAB G-TUBE SCH ×2 (09:06→21:00)
[2017-10-16] MEDS: POLYETHYLENE GLYCOL 17 GM PKG G-TUBE SCH ×2 (09:06→21:00)
[2017-10-16] MEDS: CHLORHEXIDINE GLUCONATE 0.12% 15 ML CUP SWISH-SPIT SCH ×3 (09:06→17:46)
[2017-10-16] MEDS: FAMOTIDINE 20 MG TAB NG SCH ×2 (09:06→22:57)
[2017-10-16] MEDS: FLUTICASONE PROPIONATE 50 MCG/ACT 16 GM NASAL SPRAY EACH NARE SCH (09:07)
[2017-10-16] MEDS: INSULIN DETEMIR 100 UNITS/ML VIAL SQ SCH ×2 (11:36→22:57)
--- NOTE | 2017-10-16 11:39 | HHI.PR ---
Subjective Remarks Patient seen and examined Much more alert today and follow more commands. No acute event overnight Objective Vitals Vital Signs Date Time Temp Pulse Resp B/P (MAP) Pulse Ox O2 Delivery O2 Flow Rate FiO2 10/16/17 08:00 98.3 75 18 113/66 (82) 97 10/16/17 04:00 98.0 77 18 125/64 (84) 99 10/16/17 03:49 72 10/16/17 00:09 101.1 88 20 148/79 (102) 100 10/15/17 23:48 87 10/15/17 22:15 99 T-piece 6.00 28 10/15/17 20:00 98.8 88 20 128/74 (92) 99 10/15/17 19:47 91 10/15/17 19:35 T-Piece 6.00 28 10/15/17 18:15 T-Piece 6.00 28 10/15/17 16:16 98.4 79 18 161/88 (112) 95 10/15/17 14:44 20 10/15/17 12:53 97.8 78 18 146/86 (106) 99 I/O 10/15/17 10/15/17 10/15/17 10/16/17 10/16/17 10/16/17 07:00 15:00 23:00 07:00 15:00 23:00 Intake Total 1269 ml 643 ml Output Total 800 ml 550 ml Balance 469 ml 643 ml -550 ml Intake Oral 0 ml Tube Feeding 369 ml 343 ml Other 900 ml 300 ml Output Urine Total 800 ml 550 ml # Bowel Movements 1 Objective Remarks GENERAL: NAD SKIN: Warm and dry. HEAD: Normocephalic. EYES: No scleral icterus. No injection or drainage. NECK: Supple, trachea midline. No JVD or lymphadenopathy. CARDIOVASCULAR: Regular rate and rhythm without murmurs, gallops, or rubs. RESPIRATORY: Breath sounds equal bilaterally. No accessory muscle use. GASTROINTESTINAL: Abdomen soft, non-tender, nondistended. MUSCULOSKELETAL: No cyanosis, or edema. Neuro: right hemiparesis BACK: Nontender without obvious deformity. No CVA tenderness. Procedures Tracheostomy and PEG placement A/P Problem List: (1) Intracranial hemorrhage ICD Code: I62.9 - Nontraumatic intracranial hemorrhage, unspecified Status: Acute Assessment and Plan 46-year-old man with Acute encephalopathy - improved Left Thalamic Hemorrhage Intracerebral Hemorrhage - Repeat CT of the head showed improving bleed - Neurosurgery follow-up appreciated; stable for dc to SNF per neurosurgery. - Continue rehabilitation efforts with PT, OT, speech - On Seroquel . Roxicodone as needed for pain Anemia likely due to chronic disease. H/H fairly stable. Healthcare associated pneumonia completed the course of antibiotic. UTI: treated. Respiratory failure s/p trach - Tolerating T piece - continue neb treatment. -Patient had angioedema, source unclear and was seen by ENT. He was treated with steroids. Per ENT, expect slow improvement. -Appreciate pulmonology following for trach management -Did not tolerate trach capping 10/14/17 Hyperglycemia - - Continue Levemir 20 units SQ q12h - Continue sliding scale insulin with Accu-Cheks. - hemoglobin A1c 9.1. Hypertension - Continue clonidine, amlodipine and propranolol - Continue hydralazine. Nutrition status: - Status post PEG tube continue tube feeds - Continue Free water Acute kidney injury, most likely has CKD per nephrology: Renal function stabilized. - monitor renal function periodically. Physical deconditioning/right sided hemiparesis - OOB to stretcher chair daily - PT/OT following PROPH: - SCD's. Pepcid for GI prophylaxis Jeison Lopez MD Oct 16, 2017 11:39
[2017-10-16] MEDS: ATORVASTATIN 40 MG TAB DOBHOFF SCH (22:56)
[2017-10-17] VITALS (11 sets, daily range): BP systolic 117–155; BP diastolic 67–85; PULSE 74–97; RESP 17–20; TEMP 98.3–98.6; O2SAT 95–100
[2017-10-17] MEDS: PROPRANOLOL HCL 40 MG TAB G-TUBE SCH ×5 (01:02→22:35)
[2017-10-17] MEDS: CHLORHEXIDINE GLUCONATE 2 % 1 PACK (2 CLOTHS) TOP SCH (04:00)
[2017-10-17] MEDS: FREE WATER G-TUBE SCH ×7 (04:00→23:46)
[2017-10-17] MEDS: QUEtiapine FUMARATE 25 MG TAB G-TUBE SCH ×3 (05:41→22:35)
[2017-10-17] MEDS: cloNIDine HCL 0.3 MG TAB G-TUBE SCH ×3 (05:41→22:35)
[2017-10-17] MEDS: hydrALAZINE HCL 100 MG TAB G-TUBE SCH ×3 (05:41→22:35)
[2017-10-17] MEDS: INSULIN ASPART SUPPLEMENTAL SCALE SQ SCH ×5 (06:00→22:37)
[2017-10-17] MEDS: POLYETHYLENE GLYCOL 17 GM PKG G-TUBE SCH ×2 (09:00→22:35)
[2017-10-17] MEDS: FLUTICASONE PROPIONATE 50 MCG/ACT 16 GM NASAL SPRAY EACH NARE SCH (09:00)
[2017-10-17] MEDS: DOCUSATE SODIUM 50 MG/SENNA 8.6 MG TAB G-TUBE SCH ×2 (09:00→22:35)
[2017-10-17] MEDS: CHLORHEXIDINE GLUCONATE 0.12% 15 ML CUP SWISH-SPIT SCH ×3 (09:00→18:00)
[2017-10-17] MEDS: FAMOTIDINE 20 MG TAB NG SCH ×2 (09:17→22:35)
[2017-10-17] MEDS: INSULIN DETEMIR 100 UNITS/ML VIAL SQ SCH ×2 (09:19→22:53)
--- NOTE | 2017-10-17 11:15 | HHI.PR ---
Subjective Remarks Patient seen and examined Stated he only slept 4 hours last night No other issues Objective Vitals Vital Signs Date Time Temp Pulse Resp B/P (MAP) Pulse Ox O2 Delivery O2 Flow Rate FiO2 10/17/17 09:00 98.3 75 20 117/70 (86) 100 10/17/17 09:00 T-Piece 6.00 28 10/17/17 04:00 81 10/17/17 04:00 98.5 97 17 155/85 (108) 97 10/17/17 00:51 99 T-piece 6.00 28 10/17/17 00:00 98.6 97 17 150/82 (104) 95 10/17/17 00:00 97 10/16/17 23:00 T-Piece 6.00 28 10/16/17 20:00 98.5 97 17 153/85 (107) 97 10/16/17 20:00 98 10/16/17 16:04 80 10/16/17 16:00 98.6 88 20 158/84 (108) 99 10/16/17 13:45 98.3 82 18 142/68 (92) 97 10/16/17 13:06 83 140/78 (98) 10/16/17 12:06 80 I/O 10/16/17 10/16/17 10/16/17 10/17/17 10/17/17 10/17/17 07:00 15:00 23:00 07:00 15:00 23:00 Output Total 550 ml 650 ml Balance -550 ml -650 ml Output Urine Total 550 ml 650 ml # Bowel Movements 1 Objective Remarks GENERAL: NAD SKIN: Warm and dry. HEAD: Normocephalic. EYES: No scleral icterus. No injection or drainage. NECK: Supple, trachea midline. No JVD or lymphadenopathy. CARDIOVASCULAR: Regular rate and rhythm without murmurs, gallops, or rubs. RESPIRATORY: Breath sounds equal bilaterally. No accessory muscle use. GASTROINTESTINAL: Abdomen soft, non-tender, nondistended. MUSCULOSKELETAL: No cyanosis, or edema. Neuro: right hemiparesis BACK: Nontender without obvious deformity. No CVA tenderness. Procedures Tracheostomy and PEG placement A/P Problem List: (1) Intracranial hemorrhage ICD Code: I62.9 - Nontraumatic intracranial hemorrhage, unspecified Status: Acute Assessment and Plan 46-year-old man with Acute encephalopathy - improved Left Thalamic Hemorrhage Intracerebral Hemorrhage - Repeat CT of the head showed improving bleed - Neurosurgery follow-up appreciated; stable for dc to SNF per neurosurgery. - Continue rehabilitation efforts with PT, OT, speech - On Seroquel . Roxicodone as needed for pain Anemia likely due to chronic disease. H/H fairly stable. Healthcare associated pneumonia completed the course of antibiotic. UTI: treated. Respiratory failure s/p trach - Tolerating T piece - continue neb treatment. -Patient had angioedema, source unclear and was seen by ENT. He was treated with steroids. Per ENT, expect slow improvement. -Appreciate pulmonology following for trach management -Did not tolerate trach 10/14/17, likely trial of trach capping next week Hyperglycemia - - Continue Levemir 20 units SQ q12h - Continue sliding scale insulin with Accu-Cheks. - hemoglobin A1c 9.1. Hypertension - Continue clonidine, amlodipine and propranolol - Continue hydralazine. Nutrition status: - Status post PEG tube continue tube feeds - Continue Free water Acute kidney injury, most likely has CKD per nephrology: Renal function stabilized. - monitor renal function periodically. Physical deconditioning/right sided hemiparesis - OOB to stretcher chair daily - PT/OT following PROPH: - SCD's. Pepcid for GI prophylaxis Jeison Lopez MD Oct 17, 2017 11:15
[2017-10-17] MEDS: ATORVASTATIN 40 MG TAB DOBHOFF SCH (22:35)
[2017-10-17] MEDS: oxyCODONE HCL ORAL CONC 5 MG/0.25 ML SYRINGE G-TUBE PRN (23:46)
[2017-10-18] VITALS (11 sets, daily range): BP systolic 115–139; BP diastolic 67–83; PULSE 74–85; RESP 18–22; TEMP 97.8–99.5; O2SAT 96–98
[2017-10-18] MEDS: FREE WATER G-TUBE SCH ×5 (03:58→21:39)
[2017-10-18] MEDS: CHLORHEXIDINE GLUCONATE 2 % 1 PACK (2 CLOTHS) TOP SCH (03:58)
[2017-10-18] MEDS: INSULIN ASPART SUPPLEMENTAL SCALE SQ SCH ×3 (06:00→18:00)
[2017-10-18] MEDS: PROPRANOLOL HCL 40 MG TAB G-TUBE SCH ×3 (06:23→18:28)
[2017-10-18] MEDS: QUEtiapine FUMARATE 25 MG TAB G-TUBE SCH ×3 (06:23→21:41)
[2017-10-18] MEDS: cloNIDine HCL 0.3 MG TAB G-TUBE SCH ×3 (06:23→21:41)
[2017-10-18] MEDS: hydrALAZINE HCL 100 MG TAB G-TUBE SCH ×3 (06:23→21:46)
[2017-10-18] MEDS: FLUTICASONE PROPIONATE 50 MCG/ACT 16 GM NASAL SPRAY EACH NARE SCH (09:00)
[2017-10-18] MEDS: CHLORHEXIDINE GLUCONATE 0.12% 15 ML CUP SWISH-SPIT SCH ×3 (09:00→18:00)
[2017-10-18] MEDS: INSULIN DETEMIR 100 UNITS/ML VIAL SQ SCH ×2 (09:16→21:47)
[2017-10-18] MEDS: DOCUSATE SODIUM 50 MG/SENNA 8.6 MG TAB G-TUBE SCH ×2 (09:17→21:00)
[2017-10-18] MEDS: FAMOTIDINE 20 MG TAB NG SCH ×2 (09:17→21:42)
[2017-10-18] MEDS: POLYETHYLENE GLYCOL 17 GM PKG G-TUBE SCH ×2 (09:17→21:00)
--- NOTE | 2017-10-18 10:19 | HHI.PR ---
Subjective Remarks Patient seen and examined No acute event overnight No Episode of oxygen desaturation Currently afebrile Objective Vitals Vital Signs Date Time Temp Pulse Resp B/P (MAP) Pulse Ox O2 Delivery O2 Flow Rate FiO2 10/18/17 04:00 98.8 76 20 131/79 (96) 96 10/18/17 03:41 75 10/18/17 00:00 99.5 79 20 139/81 (100) 97 10/17/17 23:38 80 10/17/17 22:20 T-Piece 6.00 28 10/17/17 20:00 78 10/17/17 20:00 98.3 77 20 123/79 (94) 99 10/17/17 16:00 98.4 78 18 123/67 (85) 97 10/17/17 15:44 83 10/17/17 15:38 100 T-piece 6.00 28 10/17/17 12:00 79 10/17/17 12:00 98.4 78 18 123/67 (85) 97 I/O 10/17/17 10/17/17 10/17/17 10/18/17 10/18/17 10/18/17 07:00 15:00 23:00 07:00 15:00 23:00 Intake Total 903 ml Output Total 650 ml 900 ml 600 ml Balance -650 ml -900 ml 303 ml Tube Feeding 903 ml Output Urine Total 650 ml 900 ml 600 ml # Bowel Movements 0 0 Objective Remarks GENERAL: NAD SKIN: Warm and dry. HEAD: Normocephalic. EYES: No scleral icterus. No injection or drainage. NECK: Supple, trachea midline. No JVD or lymphadenopathy. CARDIOVASCULAR: Regular rate and rhythm without murmurs, gallops, or rubs. RESPIRATORY: Breath sounds equal bilaterally. No accessory muscle use. GASTROINTESTINAL: Abdomen soft, non-tender, nondistended. MUSCULOSKELETAL: No cyanosis, or edema. Neuro: right hemiparesis BACK: Nontender without obvious deformity. No CVA tenderness. Procedures Tracheostomy and PEG placement A/P Problem List: (1) Intracranial hemorrhage ICD Code: I62.9 - Nontraumatic intracranial hemorrhage, unspecified Status: Acute Assessment and Plan 46-year-old man with Acute encephalopathy - improved Left Thalamic Hemorrhage Intracerebral Hemorrhage - Repeat CT of the head showed improving bleed - Neurosurgery follow-up appreciated; stable for dc to SNF per neurosurgery. - Continue rehabilitation efforts with PT, OT, speech - On Seroquel . Roxicodone as needed for pain Anemia likely due to chronic disease. H/H fairly stable. Healthcare associated pneumonia completed the course of antibiotic. UTI: treated. Respiratory failure s/p trach - Tolerating T piece - continue neb treatment. -Patient had angioedema, source unclear and was seen by ENT. He was treated with steroids. Per ENT, expect slow improvement. -Appreciate pulmonology following for trach management -Did not tolerate trach 10/14/17, likely trial of trach capping this week Hyperglycemia - - Continue Levemir 20 units SQ q12h - Continue sliding scale insulin with Accu-Cheks. - hemoglobin A1c 9.1. Hypertension - Continue clonidine, amlodipine and propranolol - Continue hydralazine. Nutrition status: - Status post PEG tube continue tube feeds - Continue Free water Acute kidney injury, most likely has CKD per nephrology: Renal function stabilized. - monitor renal function periodically. Physical deconditioning/right sided hemiparesis - OOB to stretcher chair daily - PT/OT following PROPH: - SCD's. Pepcid for GI prophylaxis Jeison Lopez MD Oct 18, 2017 10:19
[2017-10-18] MEDS: oxyCODONE HCL ORAL CONC 5 MG/0.25 ML SYRINGE G-TUBE PRN (15:57)
--- NOTE | 2017-10-18 20:00 | HHI.PR ---
Subjective Remarks 46 YOAA male with ICH,RF,Trach Moves left ext Looks around, able to communicate Good cough efforts no fever on trach collar Objective Vital Signs Vital Signs Date Time Temp Pulse Resp B/P (MAP) Pulse Ox O2 Delivery O2 Flow Rate FiO2 10/18/17 16:09 85 10/18/17 13:38 98 T-piece 28 10/18/17 12:00 98.8 77 22 125/83 (97) 96 10/18/17 08:04 74 10/18/17 08:00 98.5 75 20 115/67 (83) 98 10/18/17 08:00 T-Piece 6.00 28 10/18/17 04:00 98.8 76 20 131/79 (96) 96 10/18/17 03:41 75 10/18/17 00:00 99.5 79 20 139/81 (100) 97 10/17/17 23:38 80 10/17/17 22:20 T-Piece 6.00 28 10/17/17 20:00 78 10/17/17 20:00 98.3 77 20 123/79 (94) 99 I/O 10/17/17 10/17/17 10/17/17 10/18/17 10/18/17 10/18/17 07:00 15:00 23:00 07:00 15:00 23:00 Intake Total 903 ml Output Total 650 ml 900 ml 600 ml Balance -650 ml -900 ml 303 ml Tube Feeding 903 ml Output Urine Total 650 ml 900 ml 600 ml # Bowel Movements 0 0 Objective Remarks GENERAL: WBWN AA male, NAD SKIN: Warm and dry. HEAD: Normocephalic. EYES: No scleral icterus. No injection or drainage. NECK: Supple, trachea midline. No JVD or lymphadenopathy. trach CARDIOVASCULAR: Regular rate and rhythm without murmurs, gallops, or rubs. RESPIRATORY: Breath sounds equal bilaterally. No accessory muscle use. GASTROINTESTINAL: Abdomen soft, non-tender, nondistended. MUSCULOSKELETAL: No cyanosis, or edema. BACK: Nontender without obvious deformity. No CVA tenderness. A/P Assessment and Plan Resp failure S/P Trach HTN ICH, right side flacid Pn PLAN Trach care Aerosol nebs Cont Abx Tube feeding Suction prn Jesus Villar MD Oct 18, 2017 20:00
[2017-10-18] MEDS: ATORVASTATIN 40 MG TAB DOBHOFF SCH (21:41)
[2017-10-19] VITALS (13 sets, daily range): BP systolic 114–156; BP diastolic 67–81; PULSE 73–83; RESP 16–20; TEMP 98.3–99.3; O2SAT 96–99
[2017-10-19] MEDS: FREE WATER G-TUBE SCH ×6 (00:33→22:22)
[2017-10-19] MEDS: PROPRANOLOL HCL 40 MG TAB G-TUBE SCH ×4 (00:33→18:09)
[2017-10-19] MEDS: CHLORHEXIDINE GLUCONATE 2 % 1 PACK (2 CLOTHS) TOP SCH (04:00)
[2017-10-19] MEDS: INSULIN ASPART SUPPLEMENTAL SCALE SQ SCH ×4 (05:56→18:00)
[2017-10-19] MEDS: QUEtiapine FUMARATE 25 MG TAB G-TUBE SCH ×3 (06:17→22:21)
[2017-10-19] MEDS: cloNIDine HCL 0.3 MG TAB G-TUBE SCH ×3 (06:17→22:21)
[2017-10-19] MEDS: hydrALAZINE HCL 100 MG TAB G-TUBE SCH ×3 (06:17→22:21)
[2017-10-19] MEDS: FLUTICASONE PROPIONATE 50 MCG/ACT 16 GM NASAL SPRAY EACH NARE SCH (09:00)
[2017-10-19] MEDS: CHLORHEXIDINE GLUCONATE 0.12% 15 ML CUP SWISH-SPIT SCH ×3 (09:00→18:00)
[2017-10-19] MEDS: POLYETHYLENE GLYCOL 17 GM PKG G-TUBE SCH ×2 (09:09→21:00)
[2017-10-19] MEDS: DOCUSATE SODIUM 50 MG/SENNA 8.6 MG TAB G-TUBE SCH ×2 (09:09→21:00)
[2017-10-19] MEDS: INSULIN DETEMIR 100 UNITS/ML VIAL SQ SCH ×2 (09:09→22:22)
[2017-10-19] MEDS: FAMOTIDINE 20 MG TAB NG SCH ×2 (09:09→22:21)
--- NOTE | 2017-10-19 09:10 | HHI.PR ---
Subjective Remarks Patient seen and examined Denies any acute event overnight stable and afebrile Objective Vitals Vital Signs Date Time Temp Pulse Resp B/P (MAP) Pulse Ox O2 Delivery O2 Flow Rate FiO2 10/19/17 08:37 98.3 73 20 114/70 (85) 99 10/19/17 05:30 98.6 74 16 138/76 (96) 96 10/19/17 04:27 75 10/19/17 00:00 77 10/19/17 00:00 98.6 79 18 140/69 (92) 96 10/18/17 21:45 97 T-piece 6.00 28 10/18/17 20:00 98.8 77 18 136/74 (94) 97 10/18/17 20:00 75 10/18/17 19:00 T-Piece 6.00 28 10/18/17 17:00 97.8 80 20 125/72 (89) 98 10/18/17 16:09 85 10/18/17 13:38 98 T-piece 28 10/18/17 12:00 98.8 77 22 125/83 (97) 96 I/O 10/18/17 10/18/17 10/18/17 10/19/17 10/19/17 10/19/17 06:59 14:59 22:59 06:59 14:59 22:59 Intake Total 903 ml Output Total 600 ml 1200 ml 0 ml 850 ml Balance 303 ml -1200 ml 0 ml -850 ml Tube Feeding 903 ml Output Urine Total 600 ml 1200 ml 850 ml Tube Feeding Residual Discard 0 ml # Voids 0 # Bowel Movements 0 1 0 Objective Remarks GENERAL: NAD SKIN: Warm and dry. HEAD: Normocephalic. EYES: No scleral icterus. No injection or drainage. NECK: Supple, trachea midline. No JVD or lymphadenopathy. CARDIOVASCULAR: Regular rate and rhythm without murmurs, gallops, or rubs. RESPIRATORY: Breath sounds equal bilaterally. No accessory muscle use. GASTROINTESTINAL: Abdomen soft, non-tender, nondistended. MUSCULOSKELETAL: No cyanosis, or edema. Neuro: right hemiparesis BACK: Nontender without obvious deformity. No CVA tenderness. Procedures Tracheostomy and PEG placement A/P Problem List: (1) Intracranial hemorrhage ICD Code: I62.9 - Nontraumatic intracranial hemorrhage, unspecified Status: Acute Assessment and Plan 46-year-old man with Acute encephalopathy - improved Left Thalamic Hemorrhage Intracerebral Hemorrhage - Repeat CT of the head showed improving bleed - Neurosurgery follow-up appreciated; stable for dc to SNF per neurosurgery. - Continue rehabilitation efforts with PT, OT, speech - On Seroquel . Roxicodone as needed for pain Anemia likely due to chronic disease. H/H fairly stable. Healthcare associated pneumonia completed the course of antibiotic. UTI: treated. Respiratory failure s/p trach - Tolerating T piece - continue neb treatment. -Patient had angioedema, source unclear and was seen by ENT. He was treated with steroids. Per ENT, expect slow improvement. -Appreciate pulmonology following for trach management -Did not tolerate trach 10/14/17, likely trial of trach capping possible this week Hyperglycemia - - Continue Levemir 20 units SQ q12h - Continue sliding scale insulin with Accu-Cheks. - hemoglobin A1c 9.1. Hypertension - Continue clonidine, amlodipine and propranolol - Continue hydralazine. Nutrition status: - Status post PEG tube continue tube feeds - Continue Free water Acute kidney injury, most likely has CKD per nephrology: Renal function stabilized. - monitor renal function periodically. Physical deconditioning/right sided hemiparesis - OOB to stretcher chair daily - PT/OT following PROPH: - SCD's. Pepcid for GI prophylaxis Jeison Lopez MD Oct 19, 2017 09:10
--- NOTE | 2017-10-19 11:34 | HHI.HCPN ---
Palliative care visit for follow-up patient and family support. Mr. Matos is sleeping upon my arrival. Easily awakens. Able to make needs his needs known. Some grimacing noted with movement, inquired about pain and points to his right side motioning slight pain with movement. Denies any shortness of breath. Denies any other questions or concerns. Mr. Matos confirms delivery of daughter' s baby. Able to shake head yes as to being the reason family is not at bedside as frequently. No family at bedside during my visit. Telephone call to Nichole allen. No answer, left message with brief update of visit and palliative care number in an event she wishes to call back. Palliative care will continue to follow throughout hospitalization. Crissy Castaneda, POLICE [employer]ISON OFFICER Oct 19, 2017 11:34
[2017-10-19] MEDS: oxyCODONE HCL ORAL CONC 5 MG/0.25 ML SYRINGE G-TUBE PRN (14:45)
--- NOTE | 2017-10-19 19:14 | HHI.PR ---
Subjective Remarks 46 YOAA male with ICH,RF,Trach Moves left ext Looks around, able to communicate no fever on trach collar Objective Vital Signs Vital Signs Date Time Temp Pulse Resp B/P (MAP) Pulse Ox O2 Delivery O2 Flow Rate FiO2 10/19/17 17:32 98.9 79 20 122/67 (85) 98 10/19/17 17:27 99 T-piece 6.00 28 10/19/17 15:45 20 10/19/17 12:15 98.6 83 20 156/71 (99) 99 10/19/17 12:14 98 T-piece 28 10/19/17 09:00 T-Piece 6.00 28 10/19/17 08:37 98.3 73 20 114/70 (85) 99 10/19/17 05:30 98.6 74 16 138/76 (96) 96 10/19/17 04:27 75 10/19/17 00:00 77 10/19/17 00:00 98.6 79 18 140/69 (92) 96 10/18/17 21:45 97 T-piece 6.00 28 10/18/17 20:00 98.8 77 18 136/74 (94) 97 10/18/17 20:00 75 I/O 10/18/17 10/18/17 10/18/17 10/19/17 10/19/17 10/19/17 07:00 15:00 23:00 07:00 15:00 23:00 Intake Total 903 ml 0 ml Output Total 600 ml 1200 ml 0 ml 1450 ml Balance 303 ml -1200 ml 0 ml -1450 ml Intake Oral 0 ml Tube Feeding 903 ml Output Urine Total 600 ml 1200 ml 1450 ml Tube Feeding Residual Discard 0 ml # Voids 0 # Bowel Movements 0 1 0 1 Objective Remarks GENERAL: WBWN AA male, NAD SKIN: Warm and dry. HEAD: Normocephalic. EYES: No scleral icterus. No injection or drainage. NECK: Supple, trachea midline. No JVD or lymphadenopathy. trach CARDIOVASCULAR: Regular rate and rhythm without murmurs, gallops, or rubs. RESPIRATORY: Breath sounds equal bilaterally. No accessory muscle use. GASTROINTESTINAL: Abdomen soft, non-tender, nondistended. MUSCULOSKELETAL: No cyanosis, or edema. BACK: Nontender without obvious deformity. No CVA tenderness. A/P Assessment and Plan Resp failure S/P Trach HTN ICH, right side flacid Pn PLAN Trach care Aerosol nebs Cont Abx Tube feeding Suction prn trach capping in AM Jesus Villar MD Oct 19, 2017 19:14
[2017-10-19] MEDS: ATORVASTATIN 40 MG TAB DOBHOFF SCH (22:20)
[2017-10-20] VITALS (14 sets, daily range): BP systolic 123–143; BP diastolic 69–86; PULSE 69–107; RESP 17–19; TEMP 98–99.1; O2SAT 94–99
[2017-10-20] MEDS: PROPRANOLOL HCL 40 MG TAB G-TUBE SCH ×4 (01:00→18:06)
[2017-10-20] MEDS: FREE WATER G-TUBE SCH ×6 (01:00→22:19)
[2017-10-20] MEDS: CHLORHEXIDINE GLUCONATE 2 % 1 PACK (2 CLOTHS) TOP SCH (04:00)
[2017-10-20] MEDS: hydrALAZINE HCL 100 MG TAB G-TUBE SCH ×3 (06:12→22:17)
[2017-10-20] MEDS: cloNIDine HCL 0.3 MG TAB G-TUBE SCH ×3 (06:13→22:18)
[2017-10-20] MEDS: QUEtiapine FUMARATE 25 MG TAB G-TUBE SCH ×3 (06:13→22:17)
[2017-10-20] MEDS: INSULIN ASPART SUPPLEMENTAL SCALE SQ SCH ×4 (06:22→18:06)
[2017-10-20] MEDS: POLYETHYLENE GLYCOL 17 GM PKG G-TUBE SCH ×2 (09:00→21:00)
[2017-10-20] MEDS: DOCUSATE SODIUM 50 MG/SENNA 8.6 MG TAB G-TUBE SCH ×2 (09:00→21:00)
[2017-10-20] MEDS: FLUTICASONE PROPIONATE 50 MCG/ACT 16 GM NASAL SPRAY EACH NARE SCH (10:29)
[2017-10-20] MEDS: FAMOTIDINE 20 MG TAB NG SCH ×2 (10:29→22:17)
[2017-10-20] MEDS: CHLORHEXIDINE GLUCONATE 0.12% 15 ML CUP SWISH-SPIT SCH ×3 (10:29→18:06)
[2017-10-20] MEDS: INSULIN DETEMIR 100 UNITS/ML VIAL SQ SCH ×2 (10:30→22:18)
--- NOTE | 2017-10-20 12:11 | HHI.PR ---
Subjective Remarks Patient seen and examined [place] Of trach capping unsuccessful 2 days in a row Objective Vitals Vital Signs Date Time Temp Pulse Resp B/P (MAP) Pulse Ox O2 Delivery O2 Flow Rate FiO2 10/20/17 11:49 75 10/20/17 08:00 98.3 79 17 123/71 (88) 95 10/20/17 07:15 95 T-Piece 6.00 28 10/20/17 04:00 98.0 69 17 129/69 (89) 98 10/20/17 03:46 76 10/20/17 00:54 98 T-piece 6.00 28 10/20/17 00:00 99.0 75 19 140/76 (97) 97 10/19/17 23:43 79 10/19/17 20:00 99.3 77 19 148/81 (103) 96 10/19/17 19:44 74 10/19/17 19:00 T-Piece 6.00 28 10/19/17 17:32 98.9 79 20 122/67 (85) 98 10/19/17 17:27 99 T-piece 6.00 28 10/19/17 15:59 78 10/19/17 15:45 20 10/19/17 12:15 98.6 83 20 156/71 (99) 99 10/19/17 12:14 98 T-piece I/O 10/19/17 10/19/17 10/19/17 10/20/17 10/20/17 10/20/17 07:00 15:00 23:00 07:00 15:00 23:00 Intake Total 0 ml 0 ml 0 ml Output Total 0 ml 1450 ml 750 ml 500 ml 0 ml Balance 0 ml -1450 ml -750 ml -500 ml 0 ml Intake Oral 0 ml 0 ml 0 ml Output Urine Total 1450 ml 750 ml 500 ml Tube Feeding Residual Discard 0 ml 0 ml 0 ml # Voids 0 # Bowel Movements 0 1 0 0 Objective Remarks GENERAL: NAD SKIN: Warm and dry. HEAD: Normocephalic. EYES: No scleral icterus. No injection or drainage. NECK: Supple, trachea midline. No JVD or lymphadenopathy. CARDIOVASCULAR: Regular rate and rhythm without murmurs, gallops, or rubs. RESPIRATORY: Breath sounds equal bilaterally. No accessory muscle use. GASTROINTESTINAL: Abdomen soft, non-tender, nondistended. MUSCULOSKELETAL: No cyanosis, or edema. Neuro: right hemiparesis BACK: Nontender without obvious deformity. No CVA tenderness. Procedures Tracheostomy and PEG placement A/P Problem List: (1) Intracranial hemorrhage ICD Code: I62.9 - Nontraumatic intracranial hemorrhage, unspecified Status: Acute Assessment and Plan 46-year-old man with Acute encephalopathy - improved Left Thalamic Hemorrhage Intracerebral Hemorrhage - Repeat CT of the head showed improving bleed - Neurosurgery follow-up appreciated; stable for dc to SNF per neurosurgery. - Continue rehabilitation efforts with PT, OT, speech - On Seroquel . Roxicodone as needed for pain Anemia likely due to chronic disease. H/H fairly stable. Healthcare associated pneumonia completed the course of antibiotic. UTI: treated. Respiratory failure s/p trach - Tolerating T piece - continue neb treatment. -Patient had angioedema, source unclear and was seen by ENT. He was treated with steroids. Per ENT, expect slow improvement. -Appreciate pulmonology following for trach management -Did not tolerate trach 10/14/17, -trial of trach capping .... Will give Solu-Medrol 125 mg IV 1 now and attempt another trial this afternoon 10/20/17 Hyperglycemia - - Continue Levemir 20 units SQ q12h - Continue sliding scale insulin with Accu-Cheks. - hemoglobin A1c 9.1. Hypertension - Continue clonidine, amlodipine and propranolol - Continue hydralazine. Nutrition status: - Status post PEG tube continue tube feeds - Continue Free water Acute kidney injury, most likely has CKD per nephrology: Renal function stabilized. - monitor renal function periodically. Physical deconditioning/right sided hemiparesis - OOB to stretcher chair daily - PT/OT following PROPH: - SCD's. Pepcid for GI prophylaxis Jeison Lopez MD Oct 20, 2017 12:11
[2017-10-20] MEDS ORDERED: methylPREDNISolone SOD SUCC 125 MG/2 ML VIAL IV PUSH ONE (12:15)
[2017-10-20] MEDS: oxyCODONE HCL ORAL CONC 5 MG/0.25 ML SYRINGE G-TUBE PRN (13:54)
--- NOTE | 2017-10-20 16:57 | HHI.PR ---
Subjective Remarks 46 YOAA male with ICH,RF,Trach Moves left ext Looks around, able to communicate no fever on trach collar Did't tolerate trach capping Objective Vital Signs Vital Signs Date Time Temp Pulse Resp B/P (MAP) Pulse Ox O2 Delivery O2 Flow Rate FiO2 10/20/17 15:08 20 10/20/17 13:39 77 10/20/17 12:00 99.1 81 18 143/77 (99) 97 10/20/17 11:49 75 10/20/17 08:00 98.3 79 17 123/71 (88) 95 10/20/17 07:15 95 T-Piece 6.00 28 10/20/17 04:00 98.0 69 17 129/69 (89) 98 10/20/17 03:46 76 10/20/17 00:54 98 T-piece 6.00 28 10/20/17 00:00 99.0 75 19 140/76 (97) 97 10/19/17 23:43 79 10/19/17 20:00 99.3 77 19 148/81 (103) 96 10/19/17 19:44 74 10/19/17 19:00 T-Piece 6.00 28 10/19/17 17:32 98.9 79 20 122/67 (85) 98 10/19/17 17:27 99 T-piece 6.00 28 I/O 10/19/17 10/19/17 10/19/17 10/20/17 10/20/17 10/20/17 06:59 14:59 22:59 06:59 14:59 22:59 Intake Total 0 ml 0 ml 0 ml Output Total 0 ml 1450 ml 750 ml 500 ml 0 ml Balance 0 ml -1450 ml -750 ml -500 ml 0 ml Intake Oral 0 ml 0 ml 0 ml Output Urine Total 1450 ml 750 ml 500 ml Tube Feeding Residual Discard 0 ml 0 ml 0 ml # Voids 0 # Bowel Movements 0 1 0 0 Objective Remarks GENERAL: WBWN AA male, NAD SKIN: Warm and dry. HEAD: Normocephalic. EYES: No scleral icterus. No injection or drainage. NECK: Supple, trachea midline. No JVD or lymphadenopathy. trach CARDIOVASCULAR: Regular rate and rhythm without murmurs, gallops, or rubs. RESPIRATORY: Breath sounds equal bilaterally. No accessory muscle use. GASTROINTESTINAL: Abdomen soft, non-tender, nondistended. MUSCULOSKELETAL: No cyanosis, or edema. BACK: Nontender without obvious deformity. No CVA tenderness. A/P Assessment and Plan Resp failure S/P Trach HTN ICH, right side flacid Pn PLAN Trach care Aerosol nebs Cont Abx Tube feeding Suction prn Jesus Villar MD Oct 20, 2017 16:57
[2017-10-20] MEDS: ATORVASTATIN 40 MG TAB DOBHOFF SCH (22:18)
[2017-10-21] VITALS (10 sets, daily range): BP systolic 132–159; BP diastolic 74–90; PULSE 77–89; RESP 16–20; TEMP 97.8–99.1; O2SAT 95–99
[2017-10-21] MEDS: PROPRANOLOL HCL 40 MG TAB G-TUBE SCH ×4 (00:24→18:00)
[2017-10-21] MEDS: INSULIN ASPART SUPPLEMENTAL SCALE SQ SCH ×4 (00:25→18:00)
[2017-10-21] MEDS: FREE WATER G-TUBE SCH ×6 (00:25→22:32)
[2017-10-21] MEDS: CHLORHEXIDINE GLUCONATE 2 % 1 PACK (2 CLOTHS) TOP SCH (04:00)
[2017-10-21] MEDS: cloNIDine HCL 0.3 MG TAB G-TUBE SCH ×3 (05:50→22:35)
[2017-10-21] MEDS: hydrALAZINE HCL 100 MG TAB G-TUBE SCH ×3 (05:50→22:35)
[2017-10-21] MEDS: QUEtiapine FUMARATE 25 MG TAB G-TUBE SCH ×3 (05:51→22:35)
[2017-10-21] MEDS: POLYETHYLENE GLYCOL 17 GM PKG G-TUBE SCH ×2 (09:00→21:00)
[2017-10-21] MEDS: DOCUSATE SODIUM 50 MG/SENNA 8.6 MG TAB G-TUBE SCH ×2 (09:00→21:00)
[2017-10-21] MEDS: FLUTICASONE PROPIONATE 50 MCG/ACT 16 GM NASAL SPRAY EACH NARE SCH (09:48)
[2017-10-21] MEDS: FAMOTIDINE 20 MG TAB NG SCH ×2 (09:48→22:35)
[2017-10-21] MEDS: INSULIN DETEMIR 100 UNITS/ML VIAL SQ SCH ×2 (09:49→22:34)
[2017-10-21] MEDS: CHLORHEXIDINE GLUCONATE 0.12% 15 ML CUP SWISH-SPIT SCH ×3 (09:49→18:00)
--- NOTE | 2017-10-21 12:31 | HHI.PR ---
Subjective Remarks Patient seen and examined [place] Of trach capping unsuccessful AWAIT SAFE PLACEMENT LEFT SIDE IS FLACCID Objective Vitals Vital Signs Date Time Temp Pulse Resp B/P (MAP) Pulse Ox O2 Delivery O2 Flow Rate FiO2 10/21/17 12:17 98.3 80 20 142/74 (96) 96 10/21/17 11:10 99 T-piece 28 10/21/17 08:00 98.0 80 18 135/75 (95) 95 10/21/17 04:00 97.8 84 18 132/78 (96) 96 10/21/17 03:46 83 10/21/17 00:00 99.1 88 18 159/81 (107) 95 10/20/17 23:53 99 10/20/17 20:33 99 T-piece 6.00 28 10/20/17 20:00 98.3 107 18 136/85 (102) 94 10/20/17 19:46 101 10/20/17 19:00 T-Piece 6.00 28 10/20/17 18:53 82 10/20/17 16:00 98.2 81 18 143/86 (105) 97 10/20/17 15:08 20 10/20/17 13:39 77 I/O 10/20/17 10/20/17 10/20/17 10/21/17 10/21/17 10/21/17 07:00 15:00 23:00 07:00 15:00 23:00 Intake Total 0 ml 0 ml Output Total 500 ml 0 ml 1200.0 ml 650 ml Balance -500 ml 0 ml -1200.0 ml -650 ml Intake Oral 0 ml 0 ml Output Urine Total 500 ml 1200 ml 650 ml Tube Feeding Residual Discard 0 ml 0 ml 0 ml 0 ml # Bowel Movements 0 0 Imaging Last Impressions Chest X-Ray 09/26/17 0000 Signed Impressions: Service Date/Time: Tuesday, September 26, 2017 09:45 - CONCLUSION: Stable examination with left basilar consolidation/effusion. Reyes Guzman MD Maxillofacial CT 09/16/17 0000 Signed Impressions: Service Date/Time: September 01:03 - CONCLUSION: 1. Evidence of acute pansinusitis. 2. Opacification of multiple bilateral mastoid air cells most characteristic of mastoiditis. 3. Mildly prominent cervical chain nodes which may be reactive. Angelo Conn MD Upper Extremity Ultrasound 09/15/17 0000 Signed Impressions: Service Date/Time: Friday, September 15, 2017 17:14 - CONCLUSION: Occlusive thrombus within the left cephalic vein and nonocclusive thrombus within the right cephalic vein. Ric Jack MD Lower Extremity Ultrasound 09/15/17 0000 Signed Impressions: Service Date/Time: Friday, September 15, 2017 16:58 - CONCLUSION: No evidence of DVT within the lower extremities. Ric Jack MD Head CT 09/13/17 0800 Signed Impressions: Service Date/Time: Wednesday, September 13, 2017 09:17 - CONCLUSION: 1. Resolving left basal ganglia hematoma Natan Lagos MD Chest CT 09/13/17 0000 Signed Impressions: Service Date/Time: Wednesday, September 13, 2017 09:28 - CONCLUSION: 1. Bibasilar and left lingular dependent atelectatic changes. Lungs are otherwise clear. 2. Tracheostomy tube with the tip probably positioned above the connie. 3. Compensated cardiomegaly. Reyes Guzman MD Abdomen/Pelvis CT 09/13/17 0000 Signed Impressions: Service Date/Time: Wednesday, September 13, 2017 09:28 - CONCLUSION: 1. There is some stranding in the retroperitoneal perivascular tissues around the distal aorta extending into the bifurcation with a regional borderline lymph nodes. Findings are characteristic of a nonspecific inflammatory process. Findings could represent early retroperitoneal fibrosis.. 2. Urinary bladder is decompressed with some mural thickening in pericystic inflammatory changes possibly representing a chronic cystitis. Nondependent air could be associated with a recent catheterization/instrumentation. 3. Small umbilical and right inguinal hernias only contain fat. 4. Bilateral dependent basilar and left lingular atelectatic changes. Heart size is borderline prominent. 5. Otherwise , bowel is intact without obstruction to explain abdominal distention Reyes Guzman MD Abdomen X-Ray 09/10/17 0600 Signed Impressions: Service Date/Time: Sunday, September 10, 2017 03:56 - CONCLUSION: No significant abnormality is identified. There is mild distention of the colon but there are no findings to suggest bowel obstruction or significant ileus. Ignacio Underwood MD Liver Ultrasound 09/07/17 0000 Signed Impressions: Service Date/Time: Thursday, September 07, 2017 12:37 - CONCLUSION: 1. Unremarkable sonographic appearance of the liver. No evidence for hepatic volume loss or intrahepatic ductal dilatation. 2. No sonographic evidence for cholelithiasis or acute cholecystitis. 3. Mild increased right renal echogenicity may reflect medical renal disease. 4. Small bilateral pleural effusions. 5. Pancreas and inferior pole of the right kidney are obscured by bowel gas and therefore not evaluated. Darrell Robles MD Renal Ultrasound 08/31/17 0000 Signed Impressions: Service Date/Time: Thursday, August 31, 2017 17:42 - CONCLUSION: 1. No evidence of hydronephrosis on either side. 2. Solitary linear echogenic focus in the upper pole parenchyma of the right kidney has similar features to prior examination in January 2017 and possibly represents a calcification. David Snell MD Neck CTA 08/28/17 2347 Signed Impressions: Service Date/Time: Tuesday, August 29, 2017 00:13 - CONCLUSION: Negative carotid CTA. David Snell MD Head CTA 08/28/17 2347 Signed Impressions: Service Date/Time: Tuesday, August 29, 2017 00:13 - CONCLUSION: 1. No evidence of vessel truncation or aneurysm. 2. No abnormal vessels in the region of the large left thalamic hemorrhage. David Snell MD Objective Remarks GENERAL: Awake and alert moves left side- flaccid on the right side -has tracheostomy in place and PEG tube in place SKIN: Warm and dry. HEAD: Atraumatic. Normocephalic. EYES: Pupils equal and round. No scleral icterus. No injection or drainage. ENT: No nasal bleeding or discharge. Mucous membranes pink and moist. NECK: Trachea midline. No JVD. Tracheostomy in place CARDIOVASCULAR: Regular rate and rhythm. S1 and S2 no S3 or S4 RESPIRATORY: No accessory muscle use.. Breath sounds equal bilaterally. Coarse breath sounds bilaterally GASTROINTESTINAL: Abdomen soft, non-tender, nondistended. Hepatic and splenic margins not palpable. PEG tube MUSCULOSKELETAL: Extremities without clubbing, cyanosis, or edema. No obvious deformities. Right side flaccid moves left side NEUROLOGICAL: Awake and alert. No obvious cranial nerve deficits. Motor grossly within normal limits. Five out of 5 muscle strength in the left arms and legs-- flaccid on the right. Cannot assess Normal speech due to to trach. PSYCHIATRIC: Appropriate mood and affect; insight and judgment normal cannot assess either of these due to trach. Procedures Tracheostomy and PEG placement Medications and IVs Current Medications Sodium Chloride 1,000 ml @ 70 mls/hr [id number] ONCE IV ; Start 08/28/17 at 23:47 ; Stop 08/29/17 at 14:04; Status DC Nicardipine HCl 25 mg/Sodium Chloride 250 ml @ 50 mls/hr TITRATE PRN IV Blood pressure management; Start 08/29/17 at 00:00; Stop 08/29/17 at 00:48; Status DC Propofol 100 ml @ 0 mls/hr TITRATE PRN IV SEDATION; Start 08/29/17 at 00:00; Stop 08/29/17 at 00:40; Status DC Propofol 100 ml @ As Directed STK-MED ONCE .ROUTE ; Start 08/28/17 at 23:57; Stop 08/28/17 at 23:58; Status DC Etomidate (Amidate Inj) 20 mg ONCE ONCE IVP ; Start 08/29/17 at 00:00; Stop 08/29/17 at 00:01; Status DC Succinylcholine Chloride (Quelicin Inj) 100 mg ONCE ONCE IV PUSH ; Start 08/29 at 00:00; Stop 08/29/17 at 00:01; Status DC Sodium Chloride (NS Flush) 2 ml UNSCH PRN IVF FLUSH AFTER USING IV ACCESS Last administered on 09/28/17t 20:47; Start 08/29/17 at 00:00 Rocuronium [place] (Zemuron Inj) 50 mg BOLUS ONCE IV ; Start 08/29/17 at 00:15 ; Stop 08/29/17 at 00:17; Status DC Iohexol (Omnipaque 350 Inj) 100 ml STK-MED ONCE IVCONTRAST Last administered on 08/29/17t 00:18; Start 08/29/17 at 00:18; Stop 08/29/17 at 00:19; Status DC Chlorhexidine Gluconate (Peridex 0.12% Liq) 15 ml BID@08,20 MT Last administered on 10/11/17at 09:59; Start 08/29/17 at 08:00; Stop 10/11/17 at 14:08 ; Status DC Propofol 100 ml @ 3 mls/hr TITRATE PRN IV SEDATION; Start 08/29/17 at 00:45; Stop 08/29/17 at 04:17; Status DC Nicardipine HCl (Cardene Inj) 25 mg STK-MED ONCE .ROUTE ; Start 08/29/17 at 00: 36; Stop 08/29/17 at 00:37; Status DC Nicardipine HCl 25 mg/Sodium Chloride 250 ml @ 50 mls/hr TITRATE PRN IV BLOOD PRESSURE MANAGEMENT Last administered on 09/02/17 09:52; Start 08/29/17 at 00 :45; Stop 09/02/17 at 21:12; Status DC Labetalol HCl (Trandate Inj) 10 mg Q20M PRN IV PUSH SBP>140, DBP>90 Last administered on 09/19/17 02:16; Start 08/29/17 at 00:45 Amlodipine Besylate (Norvasc) 10 mg DAILY PO Last administered on 09/24/17 09 :14; Start 08/29/17 at 09:00; Stop 09/25/17 at 09:29; Status DC Lisinopril (Prinivil) 40 mg DAILY PO Last administered on 09/04/17 09:07; Start 08/29/17 at 09:00; Stop 09/04/17 at 12:18; Status DC Sodium Chloride 1,000 ml @ 75 mls/hr [id number] IV Last administered on 06:03; Start 08/29/17 at 00:43; Stop 08/31/17 at 11:07; Status DC Acetaminophen (Tylenol) 650 mg Q6H PRN PO PAIN 1-5 AND/OR FEVER >101F Last administered on 09/23/17 03:09; Start 08/29/17 at 00:45; Stop 09/25/17 at 09 :29; Status DC Morphine Sulfate (Morphine Inj) 2 mg Q2H PRN IV PUSH PAIN SCALE 6 TO 10 Last administered on 09/17/17 03:33; Start 08/29/17 at 00:45; Stop 09/24/17 at 16: 27; Status DC Pantoprazole Sodium (Protonix Inj) 40 mg DAILY IV PUSH Last administered on 09:15; Start 08/29/17 at 09:00; Stop 09/11/17 at 10:25; Status DC Ondansetron HCl (Zofran Inj) 4 mg Q6H PRN IV PUSH NAUSEA OR VOMITING Last administered on 09/11/17 14:18; Start 08/29/17 at 00:45 Albuterol/ Ipratropium (Duoneb Neb) 1 ampule Q4HR NEB PRN INH WHEEZING Last administered on 09/15/17 11:55; Start 08/29/17 at 00:45; Stop 09/17/17 at 12: 47; Status DC Miscellaneous Information 1 [id number] Last administered on 08/29/17 01:00; Start 08/29/17 at 00:45 Chlorhexidine Gluconate (Chlorhexidine 2% Cloth) Taper DAILY@04 TOP ; Start at 04:00; Stop 08/25/18 at 03:59 Chlorhexidine Gluconate (Chlorhexidine 2% Cloth) 3 pack UNSCH PRN TOP HYGIENIC CARE; Start 08/29/17 at 00:45 Senna/Docusate Sodium (Melina-Colace) 1 tab BID PO Last administered on 09:15; Start 08/29/17 at 09:00; Stop 08/31/17 at 11:08; Status DC Magnesium Hydroxide (Milk Of Magnesia Liq) 30 ml Q12H PRN PO Mild constipation ; Start 08/29/17 at 00:45; Stop 08/31/17 at 11:08; Status DC Sennosides (Senokot) 17.2 mg Q12H PRN PO Moderate constipation; Start at 00:45; Stop 08/31/17 at 11:08; Status DC Bisacodyl (Dulcolax Supp) 10 mg DAILY PRN RECTAL SEVERE CONSITIPATION; Start 08/29/17 at 00:45; Stop 08/31/17 at 11:08; Status DC Lactulose (Lactulose Liq) 30 ml DAILY PRN PO SEVERE CONSITIPATION; Start 08/29 at 00:45; Stop 08/31/17 at 11:08; Status DC Fentanyl Citrate 250 ml @ 5 mls/hr TITRATE PRN IV SEDATION Last administered on 09/11/17 06:14; Start 08/29/17 at 00:45; Stop 09/11/17 at 10:20; Status DC Fentanyl Citrate 250 ml @ As Directed STK-MED ONCE .ROUTE ; Start 08/29/17 at 01:30; Stop 08/29/17 at 04:10; Status DC Propofol 100 ml @ 3 mls/hr TITRATE PRN IV SEDATION Last administered on 07:37; Start 08/29/17 at 04:30; Stop 08/31/17 at 11:08; Status DC Rocuronium [place] (Zemuron Inj) 100 mg STAT ONCE IV Last administered on 02:00; Start 08/29/17 at 02:00; Stop 08/29/17 at 04:18; Status DC Atorvastatin Calcium (Lipitor) 40 mg HS PO Last administered on 09/24/17 20: 43; Start 08/29/17 at 21:00; Stop 09/25/17 at 09:29; Status DC Hydrochlorothiazide (Hydrodiuril) 25 mg DAILY PO Last administered on 10:37; Start 08/29/17 at 09:00; Stop 09/08/17 at 11:02; Status DC Metoprolol Tartrate (Lopressor) 100 mg BID PO Last administered on 08/31/17 09:15; Start 08/29/17 at 09:00; Stop 09/11/17 at 10:20; Status DC Clonidine (Catapres) 0.1 mg Q8HR PO Last administered on 09/06/17 04:55; Start 08/29/17 at 06:00; Stop 09/06/17 at 11:33; Status DC Sodium Chloride 1,000 ml @ 999 mls/hr Q1H1M ONCE IV Last administered on 08/29 06:10; Start 08/29/17 at 06:30; Stop 08/29/17 at 07:30; Status DC Magnesium Oxide (Mag-Ox) 800 mg UNSCH PRN PO For Magnesium 1.2 - 1.6 mg/dL; Start 08/29/17 at 13:15; Stop 08/30/17 at 15:34; Status DC Magnesium Sulfate 4 gm/Sodium Chloride 100 ml @ 50 mls/hr UNSCH PRN IV For Magnesium 0.9 - 1.1 mg/dL; Start 08/29/17 at 13:15; Stop 08/30/17 at 15:34; Status DC Magnesium Sulfate 2 gm/Sodium Chloride 100 ml @ 50 mls/hr UNSCH PRN IV For Magnesium 1.2 - 1.6 mg/dL; Start 08/29/17 at 13:15; Stop 08/30/17 at 15:34; Status DC Potassium Chloride 100 ml @ 50 mls/hr Q2H PRN IV For Potassium 2.8 - 3.2 mEq/ L Last administered on 08/29/17t 17:06; Start 08/29/17 at 13:15; Stop at 15:34; Status DC Potassium Chloride 100 ml @ 50 mls/hr Q2H PRN IV For Potassium 3.3 - 3.5 mEq/ L Last administered on 08/30/17t 06:13; Start 08/29/17 at 13:15; Stop at 15:34; Status DC Potassium Chloride 100 ml @ 50 mls/hr Q2H PRN IV For Potassium 2.8 - 3.2 mEq/L ; Start 08/29/17 at 13:15; Stop 08/30/17 at 15:34; Status DC Potassium Chloride 100 ml @ 25 mls/hr UNSCH PRN IV For Potassium 3.3 - 3.5 mEq /L; Start 08/29/17 at 13:15; Stop 08/30/17 at 15:34; Status DC Potassium Phosphate (K-Phos) 2,000 mg Q4H PRN PO For Phosphorus < 2.5 mg/dL; Start 08/29/17 at 13:15; Stop 08/30/17 at 15:34; Status DC Potassium Phosphate (K-Phos) 2,000 mg UNSCH PRN PO/TUBE SEE LABEL COMMENTS; Start 08/29/17 at 13:15; Stop 08/30/17 at 15:34; Status DC Potassium Phosphate 30 mmol/ Sodium Chloride 260 ml @ 42 mls/hr UNSCH PRN IV SEE LABEL COMMENTS; Start 08/29/17 at 13:15; Stop 08/30/17 at 15:34; Status DC Sodium Phosphate 30 mmol/Sodium Chloride 250 ml @ 42 mls/hr UNSCH PRN IV For Phosphorus < 2.5 mg/dL; Start 08/29/17 at 13:15; Stop 08/30/17 at 15:34; Status DC Dextrose (D50w (Vial) Inj) 25 ml UNSCH PRN IV PUSH HYPOGLYCEMIA-SEE COMMENTS; Start 08/30/17 at 08:15; Stop 09/18/17 at 11:53; Status DC Insulin Human Regular (NovoLIN R SUPPLEMENTAL SCALE) 1 Q6HR SQ Last administered on 09/18/17t 05:34; Start 08/30/17 at 12:00; Stop 09/18/17 at 11: 53; Status DC Magnesium Oxide (Mag-Ox) 800 mg UNSCH PRN PO For Magnesium 1.2 - 1.6 mg/dL; Start 08/30/17 at 08:15; Stop 08/31/17 at 13:02; Status DC Magnesium Sulfate 4 gm/Sodium Chloride 100 ml @ 50 mls/hr UNSCH PRN IV For Magnesium 0.9 - 1.1 mg/dL; Start 08/30/17 at 08:15; Stop 08/31/17 at 13:02; Status DC Magnesium Sulfate 2 gm/Sodium Chloride 100 ml @ 50 mls/hr UNSCH PRN IV For Magnesium 1.2 - 1.6 mg/dL; Start 08/30/17 at 08:15; Stop 08/31/17 at 13:02; Status DC Potassium Chloride 100 ml @ 50 mls/hr Q2H PRN IV For Potassium 2.8 - 3.2 mEq/L ; Start 08/30/17 at 08:15; Stop 08/31/17 at 13:02; Status DC Potassium Chloride 100 ml @ 50 mls/hr Q2H PRN IV For Potassium 3.3 - 3.5 mEq/L ; Start 08/30/17 at 08:15; Stop 08/31/17 at 13:02; Status DC Potassium Chloride 100 ml @ 50 mls/hr Q2H PRN IV For Potassium 2.8 - 3.2 mEq/L ; Start 08/30/17 at 08:15; Stop 08/31/17 at 13:02; Status DC Potassium Chloride 100 ml @ 25 mls/hr UNSCH PRN IV For Potassium 3.3 - 3.5 mEq /L; Start 08/30/17 at 08:15; Stop 08/31/17 at 13:02; Status DC Potassium Phosphate (K-Phos) 2,000 mg Q4H PRN PO For Phosphorus < 2.5 mg/dL; Start 08/30/17 at 08:15; Stop 08/31/17 at 13:02; Status DC Potassium Phosphate (K-Phos) 2,000 mg UNSCH PRN PO/TUBE SEE LABEL COMMENTS; Start 08/30/17 at 08:15; Stop 08/31/17 at 13:02; Status DC Potassium Phosphate 30 mmol/ Sodium Chloride 260 ml @ 42 mls/hr UNSCH PRN IV SEE LABEL COMMENTS; Start 08/30/17 at 08:15; Stop 08/31/17 at 13:02; Status DC Sodium Phosphate 30 mmol/Sodium Chloride 250 ml @ 42 mls/hr UNSCH PRN IV For Phosphorus < 2.5 mg/dL; Start 08/30/17 at 08:15; Stop 08/31/17 at 13:02; Status DC Hydralazine HCl (Apresoline Inj) 10 mg Q30M PRN IV PUSH sbp > 160 Last administered on 09/19/17 09:08; Start 08/30/17 at 08:15 Oxycodone HCl (Roxicodone Intensol Liq) 5 mg Q4H PO Last administered on 09:16; Start 08/30/17 at 09:00; Stop 08/31/17 at 11:07; Status DC Dexmedetomidine HCl 50 ml @ 29.9 mls/hr TITRATE IV ; Start 08/30/17 at 14:15; Stop 08/30/17 at 14:46; Status DC Dexmedetomidine HCl 200 mcg/ Sodium Chloride 50 ml @ 29.9 mls/hr TITRATE IV Last administered on 08/30/17 15:27; Start 08/30/17 at 15:00; Stop 08/30/17 at 16:42; Status DC Dexmedetomidine HCl 1000 mcg/ Sodium Chloride 250 ml @ 29.9 mls/hr TITRATE IV Last administered on 08/30/17 17:58; Start 08/30/17 at 16:45; Stop 08/31/17 at 06:14; Status DC Propofol 100 ml @ 14.352 mls/ hr TITRATE PRN IV SEDATION Last administered on 09/10/17 09:59; Start 08/31/17 at 00:30; Stop 09/11/17 at 10:20; Status DC Piperacillin Sod/ Tazobactam Sod 100 ml @ 200 mls/hr Q6HR IV Last administered on 09/01/17 13:02; Start 08/31/17 at 06:00; Stop 09/01/17 at 14 :52; Status DC Morphine Sulfate (Morphine Inj) 10 mg ONCE ONCE IV PUSH Last administered on 08/31/17 06:31; Start 08/31/17 at 06:30; Stop 08/31/17 at 06:31; Status DC Propranolol HCl (Inderal) 10 mg ONCE ONCE PO Last administered on 08/31/17 06:30; Start 08/31/17 at 06:15; Stop 08/31/17 at 06:20; Status DC Oxycodone HCl (Roxicodone Intensol Liq) 10 mg Q4H PO Last administered on 09:17; Start 08/31/17 at 13:00; Stop 09/11/17 at 10:20; Status DC Propranolol HCl (Inderal) 10 mg Q6HR PO Last administered on 09/11/17 05:37; Start 08/31/17 at 12:00; Stop 09/11/17 at 10:20; Status DC Quetiapine Fumarate (SEROquel) 100 mg Q8HR PO Last administered on 09/11/17 05 :37; Start 08/31/17 at 11:00; Stop 09/11/17 at 10:20; Status DC Haloperidol Lactate (Haldol Inj) 5 mg Q4H PRN IV agitation Last administered on 09/12/17 23:04; Start 08/31/17 at 11:00; Stop 09/25/17 at 09:30; Status DC Magnesium Sulfate/ Dextrose 100 ml @ 100 mls/hr Q1H IV Last administered on 12:22; Start 08/31/17 at 12:00; Stop 08/31/17 at 13:00; Status DC Bisacodyl (Dulcolax Supp) 10 mg DAILY RECTAL Last administered on 08/31/17 11 :58; Start 08/31/17 at 12:00; Stop 09/25/17 at 09:30; Status DC Polyethylene Glycol (Miralax) 17 gm BID PO Last administered on 09/20/17 09: 26; Start 08/31/17 at 12:00; Stop 09/25/17 at 09:29; Status DC Lactulose (Lactulose Liq) 30 ml BID PO Last administered on 09/04/17 19:57; Start 08/31/17 at 12:00; Stop 09/25/17 at 09:30; Status DC Senna/Docusate Sodium (Melina-Colace) 1 tab BID PO Last administered on 09:14; Start 08/31/17 at 12:00; Stop 09/25/17 at 09:29; Status DC Magnesium Citrate (Citroma Liq) 300 ml ONCE ONCE PO Last administered on 08/31 11:57; Start 08/31/17 at 12:00; Stop 08/31/17 at 12:01; Status DC Rocuronium [place] (Zemuron Inj) 50 mg STK-MED ONCE .ROUTE Last administered on 08/31/17 14:36; Start 08/31/17 at 14:36; Stop 08/31/17 at 14:37; Status DC Calcium Acetate (Phoslo) 667 mg TID PO Last administered on 09/08/17 10:38; Start 08/31/17 at 18:00; Stop 09/08/17 at 11:02; Status DC Rocuronium [place] (Zemuron Inj) 50 mg STAT ONCE IV Last administered on 08/31 16:00; Start 08/31/17 at 16:00; Stop 08/31/17 at 16:01; Status DC Lactated Ringer's 1,000 ml @ 999 mls/hr BOLUS ONCE IV Last administered on 21:12; Start 08/31/17 at 20:45; Stop 08/31/17 at 21:45; Status DC Piperacillin Sod/ Tazobactam Sod 50 ml @ 100 mls/hr Q6HR IV Last administered on 09/02/17 05:59; Start 09/01/17 at 18:00; Stop 09/02/17 at 10:45; Status DC Piperacillin Sod/ Tazobactam Sod 50 ml @ 100 mls/hr Q8HR IV Last administered on 09/11/17 05:37; Start 09/02/17 at 14:00; Stop 09/11/17 at 10:20; Status DC Nicardipine HCl 50 mg/Sodium Chloride 500 ml @ 50 mls/hr TITRATE PRN IV BLOOD PRESSURE MANAGEMENT Last administered on 09/05/17 22:00; Start 09/02/17 at 21 :15; Stop 09/11/17 at 10:25; Status DC Rocuronium [place] (Zemuron Inj) 50 mg STK-MED ONCE .ROUTE Last administered on 09/03/17 09:22; Start 09/03/17 at 09:22; Stop 09/03/17 at 09:23; Status DC Rocuronium [place] (Zemuron Inj) 50 mg NOW ONCE IV PUSH Last administered on 09/03/17 10:13; Start 09/03/17 at 10:15; Stop 09/03/17 at 10:16; Status DC Rocuronium [place] (Zemuron Inj) 50 mg NOW ONCE IV PUSH Last administered on 09/03/17 11:00; Start 09/03/17 at 11:00; Stop 09/03/17 at 11:01; Status DC Potassium Chloride 30 meq/ Sodium Chloride 115 ml @ 38.333 mls/ hr ONCE ONCE IV-CENTRAL Last administered on 09/03/17 13:36; Start 09/03/17 at 14:00; Stop 09/03/17 at 16:59; Status DC Dexamethasone Sodium Phosphate (Decadron Inj) 6 mg Q6H IV PUSH Last administered on 09/05/17 06:09; Start 09/04/17 at 13:00; Stop 09/05/17 at 11 :55; Status DC Diphenhydramine HCl (Benadryl Inj) 50 mg Q6H IV Last administered on 08:27; Start 09/04/17 at 13:00; Stop 09/07/17 at 12:59; Status DC Lorazepam (Ativan) 2 mg Q8H PO Last administered on 09/07/17 14:35; Start at 15:00; Stop 09/07/17 at 15:18; Status DC Acetaminophen 0 ml @ As Directed STK-MED ONCE IV ; Start 09/05/17 at 07:52; Stop 09/05/17 at 07:53; Status DC Insulin Detemir (Levemir Inj) 10 units Q12H SQ Last administered on 09/11/17 09:16; Start 09/05/17 at 10:00; Stop 09/11/17 at 10:21; Status DC Dexamethasone Sodium Phosphate (Decadron Inj) 4 mg Q12H IV PUSH Last administered on 09/07/17 05:28; Start 09/05/17 at 18:00; Stop 09/07/17 at 17 :59; Status DC Albuterol/ Ipratropium (Duoneb Neb) 1 ampule Q6HR NEB NEB Last administered on 09/08/17 11:05; Start 09/05/17 at 12:00; Stop 09/08/17 at 12:59; Status DC Rocuronium [place] (Zemuron Inj) 50 mg BOLUS STAT IV Last administered on 16:47; Start 09/05/17 at 16:37; Stop 09/05/17 at 16:38; Status DC Fluticasone Propionate (Flonase Tae Spr) 2 spray DAILY EACH NARE Last administered on 10/21/17 09:48; Start 09/05/17 at 17:00 Lactated Ringer's 1,000 ml @ 30 mls/hr Q24H PRN IV SEE LABEL COMMENTS; Start 09/05/17 at 23:00; Stop 09/08/17 at 22:59; Status DC Sodium Chloride 500 ml @ 30 mls/hr [id number] PRN IV SEE LABEL COMMENTS; Start at 23:00; Stop 09/08/17 at 22:59; Status DC Metoprolol Tartrate (Lopressor) 25 mg TUBER MACHINE CUTTER PRN PO SEE LABEL COMMENTS; Start 09/05/17 at 23:00; Stop 09/08/17 at 22:59; Status DC Povidone Iodine (Betadine 5% Antisepsis Kit) 1 applic TUBER MACHINE CUTTER PRN EACH NARE SEE LABEL COMMENTS; Start 09/05/17 at 23:00; Stop 09/08/17 at 22:59; Status DC Chlorhexidine Gluconate (Chlorhexidine 2% Cloth) 3 pack TUBER MACHINE CUTTER PRN TOPICAL SEE LABEL COMMENTS; Start 09/05/17 at 23:00; Stop 09/08/17 at 22:59; Status DC Insulin Human Regular (NovoLIN R INJ) See Protocol Table ... TUBER MACHINE CUTTER PRN SQ SEE PROTOCOL TABLE; Start 09/05/17 at 23:00; Stop 09/08/17 at 22:59; Status DC Potassium Chloride 100 ml @ 50 mls/hr ONCE ONCE IV Last administered on 09/06 10:16; Start 09/06/17 at 09:30; Stop 09/06/17 at 11:29; Status DC Clonidine (Catapres) 0.3 mg Q8HR PO Last administered on 09/25/17 05:27; Start 09/06/17 at 14:00; Stop 09/25/17 at 09:29; Status DC Clonidine (Catapres) 0.3 mg ONCE ONCE PO Last administered on 09/06/17 11:55 ; Start 09/06/17 at 11:45; Stop 09/06/17 at 11:46; Status DC Heparin Sodium (Porcine) (Heparin Inj) 5,000 units Q12HR SQ ; Start 09/06/17 at 21:00; Stop 09/06/17 at 21:00; Status DC Gelatin (Gelfoam 12 Mm/7 Mm Top) 1 foam STK-MED ONCE .ROUTE Last administered on 09/07/17 09:47; Start 09/07/17 at 09:47; Stop 09/07/17 at 09:48; Status DC Silver Nitrate/ Potassium Nitrate (Silver Nitrate Applicators) 1 appl ONCE ONCE TOPICAL Last administered on 09/07/17 10:15; Start 09/07/17 at 10:15; Stop 09/07/17 at 10:47; Status DC Potassium Chloride 100 ml @ 50 mls/hr Q2H IV Last administered on 09/07/17 12:45; Start 09/07/17 at 10:45; Stop 09/07/17 at 14:44; Status DC Desmopressin Acetate (Ddavp Tae Spr) 1 spray ONCE ONCE EACH NARE Last administered on 09/07/17 15:00; Start 09/07/17 at 15:00; Stop 09/07/17 at 15 :01; Status DC Propofol (Diprivan 200 Mg/20 ml Inj) 200 mg STK-MED ONCE IV ; Start 09/06/17 at 12:00; Stop 09/07/17 at 15:10; Status DC Lorazepam (Ativan) 1 mg Q12H PO Last administered on 09/09/17 20:27; Start 09/07/17 at 19:00; Stop 09/11/17 at 10:25; Status DC Gelatin (Gelfoam 12 Mm/7 Mm Top) 1 foam Q2HR PRN TOPICAL if still bleeding from peg Last administered on 09/08/17 08:00; Start 09/07/17 at 19:45 Potassium Chloride 100 ml @ 50 mls/hr Q2H IV Last administered on 09/08/17 11:59; Start 09/08/17 at 09:00; Stop 09/08/17 at 12:59; Status DC Potassium Chloride (KCl) 40 meq ONCE ONCE PO ; Start 09/08/17 at 09:00; Stop 09/08/17 at 12:05; Status DC Potassium Chloride (KCl Powder) 40 meq ONCE ONCE PEG Last administered on 12:15; Start 09/08/17 at 12:15; Stop 09/08/17 at 12:21; Status DC Midazolam HCl (Versed Inj) 10 mg ONCE ONCE IV PUSH ; Start 09/08/17 at 13:00; Stop 09/08/17 at 13:41; Status DC Sodium Chloride 1,000 ml @ 999 mls/hr BOLUS ONCE IV Last administered on 13:00; Start 09/08/17 at 13:00; Stop 09/08/17 at 14:00; Status DC Rocuronium [place] (Zemuron Inj) 100 mg BOLUS ONCE IV ; Start 09/08/17 at 13: 00; Stop 09/08/17 at 13:44; Status DC Albuterol/ Ipratropium (Duoneb Neb) 1 ampule Q6HR NEB NEB Last administered on 09/12/17 15:34; Start 09/08/17 at 16:00; Stop 09/12/17 at 15:59; Status DC Midazolam HCl (Versed Inj) 10 mg STK-MED ONCE .ROUTE Last administered on 09/08 13:39; Start 09/08/17 at 13:12; Stop 09/08/17 at 13:13; Status DC Rocuronium [place] (Zemuron Inj) 100 mg STK-MED ONCE .ROUTE Last administered on 09/08/17 13:12; Start 09/08/17 at 13:12; Stop 09/08/17 at 13:13; Status DC Midazolam HCl (Versed Inj) 5 mg STK-MED ONCE .ROUTE Last administered on 13:52; Start 09/08/17 at 13:44; Stop 09/08/17 at 13:45; Status DC Midazolam HCl (Versed Inj) 5 mg STK-MED ONCE .ROUTE Last administered on 13:52; Start 09/08/17 at 13:49; Stop 09/08/17 at 13:50; Status DC Potassium Bicarb/ Potassium Chloride (K-Lyte Cl Eff) 25 meq ONCE ONCE PO Last administered on 09/09/17 11:15; Start 09/09/17 at 11:00; Stop 09/09/17 at 11:03; Status DC Metoclopramide HCl (Reglan Inj) 5 mg Q8HR IV PUSH Last administered on 22:55; Start 09/09/17 at 22:00; Stop 09/11/17 at 10:25; Status DC Potassium Chloride 100 ml @ 50 mls/hr Q2H IV Last administered on 09/10/17 16 :01; Start 09/10/17 at 13:00; Stop 09/10/17 at 16:59; Status DC Insulin Detemir (Levemir Inj) 12 units Q12H SQ Last administered on 09/17/17 10:42; Start 09/11/17 at 22:00; Stop 09/17/17 at 15:27; Status DC Oxycodone HCl (Roxicodone Intensol Liq) 5 mg Q4H PO Last administered on 08:28; Start 09/11/17 at 13:00; Stop 09/17/17 at 12:47; Status DC Propranolol HCl (Inderal) 30 mg Q6HR PO Last administered on 09/17/17 04:23; Start 09/11/17 at 12:00; Stop 09/17/17 at 12:47; Status DC Quetiapine Fumarate (SEROquel) 50 mg Q8HR PO Last administered on 09/12/17 21: 37; Start 09/11/17 at 14:00; Stop 09/25/17 at 09:29; Status DC Modafinil (Provigil) 200 mg DAILY PO Last administered on 09/12/17 09:07; Start 09/11/17 at 12:00; Stop 09/25/17 at 09:30; Status DC Water (Free Water) VOLUME: 200 ML Q4HR G-TUBE Last administered on 09/18/17 08 :00; Start 09/11/17 at 12:00; Stop 09/18/17 at 11:53; Status DC Famotidine (Pepcid) 10 mg BID NG Last administered on 09/23/17 20:42; Start 09/11/17 at 21:00; Stop 09/24/17 at 09:10; Status DC Heparin Sodium (Porcine) (Heparin Inj) 5,000 units Q12HR SQ Last administered on 09/28/17 08:20; Start 09/11/17 at 21:00; Status Future Hold Lorazepam (Ativan Inj) 1 mg ONCE ONCE IV PUSH Last administered on 09/13/17 02:57; Start 09/13/17 at 02:45; Stop 09/13/17 at 02:46; Status DC Pharmacy Profile Note 0 ml @ 0 mls/hr UNSCH OTHER ; Start 09/13/17 at 02:45; Stop 09/17/17 at 10:11; Status DC Piperacillin Sod/ Tazobactam Sod 50 ml @ 100 mls/hr Q6H IV Last administered on 09/19/17 20:26; Start 09/13/17 at 03:00; Stop 09/19/17 at 23:00; Status DC Nicardipine HCl 25 mg/Sodium Chloride 250 ml @ 50 mls/hr TITRATE PRN IV Blood pressure management Last administered on 09/17/17 04:57; Start 09/13/17 at 02: 45; Stop 09/17/17 at 12:47; Status DC Dantrolene Sodium (Dantrium Inj) 70 mg ONCE ONCE IV Last administered on 03:55; Start 09/13/17 at 03:00; Stop 09/13/17 at 03:01; Status DC Vancomycin HCl 2000 mg/Sodium Chloride 520 ml @ 250 mls/hr ONCE ONCE IV Last administered on 09/13/17 05:52; Start 09/13/17 at 04:00; Stop 09/13/17 at 06:04 ; Status DC Vancomycin HCl 2500 mg/Sodium Chloride 525 ml @ 250 mls/hr ONCE ONCE IV Last administered on 09/14/17 12:29; Start 09/14/17 at 12:00; Stop 09/14/17 at 14:05 ; Status DC Potassium Chloride 100 ml @ 50 mls/hr Q2H IV Last administered on 09/15/17 10 :22; Start 09/15/17 at 08:15; Stop 09/15/17 at 12:14; Status DC Dexamethasone Sodium Phosphate (Decadron Inj) 6 mg Q6HR IV PUSH Last administered on 09/17/17 04:24; Start 09/15/17 at 14:15; Stop 09/17/17 at 12:35 ; Status DC Diphenhydramine HCl (Benadryl Inj) 25 mg Q6H IV PUSH Last administered on 08:06; Start 09/15/17 at 15:00; Stop 09/18/17 at 14:59; Status DC Lidocaine HCl (Lidocaine Pf 2% Neb) 1 ml Q6HR NEB PRN NEB cough/bronchial irritation; Start 09/16/17 at 11:30 Vancomycin HCl 1500 mg/Sodium Chloride 515 ml @ 257.5 mls/ hr ONCE ONCE IV Last administered on 09/16/17 17:07; Start 09/16/17 at 15:00; Stop 09/16/17 at 16:59; Status DC Insulin Human Regular (NovoLIN R SUPPLEMENTAL SCALE) 5 ONCE ONCE SQ Last administered on 09/16/17 18:14; Start 09/16/17 at 18:00; Stop 09/16/17 at 18:01 ; Status DC Labetalol HCl (Trandate) 300 mg Q8HR PEG Last administered on 09/25/17 05:26 ; Start 09/17/17 at 14:00; Stop 09/25/17 at 09:31; Status DC Labetalol HCl (Trandate) 300 mg NOW ONCE PEG Last administered on 09/17/17 04 :23; Start 09/17/17 at 04:15; Stop 09/17/17 at 04:16; Status DC Dexamethasone Sodium Phosphate (Decadron Inj) 6 mg Q12HR IV PUSH Last administered on 09/20/17 09:26; Start 09/17/17 at 21:00; Stop 09/20/17 at 20: 59; Status DC Albuterol/ Ipratropium (Duoneb Neb) 1 ampule Q6HR NEB INH Last administered on 09/21/17 08:25; Start 09/17/17 at 16:00; Stop 09/21/17 at 15:59; Status DC Oxycodone HCl (Roxicodone Intensol Liq) 5 mg Q6H PO Last administered on 08:05; Start 09/17/17 at 15:00; Stop 09/18/17 at 12:04; Status DC Propranolol HCl (Inderal) 40 mg Q6HR PO Last administered on 09/25/17 05:26; Start 09/17/17 at 18:00; Stop 09/25/17 at 09:29; Status DC Insulin Detemir (Levemir Inj) 15 units Q12H SQ Last administered on 09/18/17 09:49; Start 09/17/17 at 22:00; Stop 09/18/17 at 11:53; Status DC Water (Free Water) 300 ml Q4HR G-TUBE Last administered on 10/21/17 09:49; Start 09/18/17 at 12:00 Insulin Detemir (Levemir Inj) 18 units Q12H SQ Last administered on 09/18/17 20:09; Start 09/18/17 at 22:00; Stop 09/19/17 at 08:52; Status DC Dextrose (D50w (Vial) Inj) 25 ml UNSCH PRN IV PUSH HYPOGLYCEMIA-SEE COMMENTS; Start 09/18/17 at 12:00 Insulin Human Regular (NovoLIN R SUPPLEMENTAL SCALE) 1 Q4HR SQ Last administered on 09/25/17 04:09; Start 09/18/17 at 12:00; Stop 09/25/17 at 09: 28; Status DC Oxycodone HCl (Roxicodone Intensol Liq) 5 mg Q6H PRN PO pain 6-10 Last administered on 09/18/17 22:56; Start 09/18/17 at 15:00; Stop 09/25/17 at 09: 29; Status DC Hydralazine HCl (Apresoline) 50 mg Q8HR PO Last administered on 09/19/17 05: 12; Start 09/18/17 at 14:00; Stop 09/19/17 at 08:52; Status DC Insulin Detemir (Levemir Inj) 20 units Q12H SQ Last administered on 10/21/17 09:49; Start 09/19/17 at 10:00 Hydralazine HCl (Apresoline) 100 mg Q8HR PO Last administered on 09/25/17 05: 31; Start 09/19/17 at 14:00; Stop 09/25/17 at 09:29; Status DC Dextrose 1,000 ml @ 42 mls/hr [id number] IV Last administered on 09/20/17 09:25 ; Start 09/19/17 at 08:45; Stop 09/20/17 at 11:39; Status DC Sodium Chloride 38.5 meq/Sterile Water 1,009.625 ml @ 42 mls/hr Q24H IV Last administered on 09/25/17 06:01; Start 09/20/17 at 13:00; Stop 09/25/17 at 09 :24; Status DC Acetaminophen 0 ml @ As Directed STK-MED ONCE IV ; Start 09/21/17 at 09:42; Stop 09/21/17 at 09:43; Status DC Hydromorphone HCl (Dilaudid Pf Inj) 2 mg STK-MED ONCE .ROUTE ; Start 09/21/17 at 09:43; Stop 09/21/17 at 09:44; Status DC Sodium Polystyrene Sulfonate (Kayexalate Liq) 30 gm Q2HR PO Last administered on 09/21/17 19:53; Start 09/21/17 at 16:00; Stop 09/21/17 at 21:00; Status DC Famotidine (Pepcid) 20 mg BID NG Last administered on 10/21/17 09:48; Start 09/24/17 at 09:30 Morphine Sulfate (Morphine Inj) 2 mg Q2H PRN IV PUSH breakthru pain; Start at 16:30 Metoprolol Tartrate (Lopressor) 25 mg Q8H PO Last administered on 09/25/17 05 :25; Start 09/25/17 at 05:00; Stop 09/25/17 at 09:29; Status DC Potassium Bicarb/ Potassium Chloride (K-Lyte Cl Eff) 50 meq ONCE ONCE PO Last administered on 09/25/17t 05:25; Start 09/25/17 at 04:30; Stop 09/25/17 at 04:31; Status DC Sodium Chloride 1,000 ml @ 42 mls/hr [id number] IV ; Start 09/25/17 at 10:00; Stop 09/25/17 at 10:00; Status DC Glucagon (Glucagon Inj) 1 mg UNSCH PRN OTHER HYPOGLYCEMIA-SEE COMMENTS; Start 09/25/17 at 09:30 Insulin Aspart (NovoLOG SUPPLEMENTAL SCALE) 1 Q6H SQ Last administered on 05:51; Start 09/25/17 at 12:00 Acetaminophen (Tylenol) 650 mg Q6H PRN G-TUBE PAIN 1-5 AND/OR FEVER >101F Last administered on 10/15/17 23:34; Start 09/25/17 at 12:45 Amlodipine Besylate (Norvasc) 10 mg DAILY G-TUBE Last administered on 09:48; Start 09/26/17 at 09:00 Atorvastatin Calcium (Lipitor) 40 mg HS DOBHOFF Last administered on 10/20/17 22:18; Start 09/25/17 at 21:00 Clonidine (Catapres) 0.3 mg Q8HR G-TUBE Last administered on 10/21/17 05:50; Start 09/25/17 at 14:00 Senna/Docusate Sodium (Melina-Colace) 1 tab BID G-TUBE Last administered on 09:09; Start 09/25/17 at 21:00 Hydralazine HCl (Apresoline) 100 mg Q8HR G-TUBE Last administered on 10/21/17 05:50; Start 09/25/17 at 14:00 Metoprolol Tartrate (Lopressor) 25 mg Q8H G-TUBE ; Start 09/25/17 at 13:00; Stop 09/25/17 at 13:00; Status DC Oxycodone HCl (Roxicodone Intensol Liq) 5 mg Q6H PRN G-TUBE pain 6-10 Last administered on 10/20/17 13:54; Start 09/25/17 at 15:00 Polyethylene Glycol (Miralax) 17 gm BID G-TUBE Last administered on 10/19/17 09 :09; Start 09/25/17 at 21:00 Propranolol HCl (Inderal) 40 mg Q6HR G-TUBE Last administered on 10/21/17 05: 51; Start 09/25/17 at 12:00 Quetiapine Fumarate (SEROquel) 50 mg Q8HR G-TUBE Last administered on 05:51; Start 09/25/17 at 14:00 Albuterol Sulfate (Albuterol Neb) 2.5 mg Q2HR NEB PRN NEB sob/wheeze Last administered on 10/11/17 17:07; Start 09/25/17 at 13:30 Cefuroxime Axetil (Ceftin) 500 mg Q12HR PO Last administered on 10/03/17t 09: 03; Start 09/26/17 at 11:15; Stop 10/03/17 at 11:14; Status DC Sodium Chloride 250 ml @ 15 mls/hr ONCE ONCE IV ; Start 09/28/17 at 10:15; Stop 09/28/17 at 16:53; Status DC Chlorhexidine Gluconate (Peridex 0.12% Liq) 15 ml TID SWISH-SPIT Last administered on 10/21/17 09:49; Start 10/11/17 at 18:00 Methylprednisolone Sodium Succinate (SoluMEDROL INJ) 125 mg ONCE ONCE IV PUSH Last administered on 10/20/17at 13:09; Start 10/20/17 at 12:15; Stop 10/20/17 at 12:16; Status DC A/P Problem List: (1) Intracranial hemorrhage ICD Code: I62.9 - Nontraumatic intracranial hemorrhage, unspecified Status: Acute Assessment and Plan Assessment and Plan A/P Acute encephalopathy - improving. Left Thalamic Hemorrhage Intracerebral Hemorrhage - Repeat CT of the head showed improving bleed - Neurosurgery follow-up appreciated; stable for dc to SNF per neurosurgery. - Continue rehabilitation efforts with PT, OT, speech - On Seroquel to control agitated delirium. Roxicodone as needed for pain Anemia likely due to chronic disease. H/H fairly stable. will monitor periodically. Healthcare associated pneumonia finished the course of antibiotic. UTI: treated. Respiratory failure s/p trach - Tolerating T piece - CT of the chest 09/13/17 -LLL infiltrate. Repeat chest x-ray on 09/26/17 shows stable left lower lobe consolidation - continue neb treatment. -Patient had angioedema, source unclear and was seen by ENT. He was treated with steroids. Per ENT, expect slow improvement. This is resolving. -Appreciate pulmonology following for trach management Respiratory failure s/p trach -Did not tolerate trach 10/14/17, -trial of trach capping .... Will give Solu-Medrol 125 mg IV 1 now and attempt another trial this afternoon 10/20/17 Hyperglycemia - persistent. - Continue Levemir 20 units SQ q12h - Continue sliding scale insulin with Accu-Cheks. - hemoglobin A1c 9.1. Hypertension - Intermittent hypertension now well controlled - Continue clonidine, amlodipine and propranolol - Continue hydralazine. Nutrition status: - Status post PEG tube continue tube feeds - Having bowel movements - Continue Free water Acute kidney injury, most likely has CKD per nephrology: Renal function stabilized. - monitor renal function periodically. Physical deconditioning/right sided hemiparesis - OOB to stretcher chair daily - PT/OT following AND SPEECH PROPH: - SCD's. Pepcid for GI prophylaxis Discharge Planning dc planning to SNF in PROCESS Discharge Planning Await case management ability to find SNF Kalen Rice DO Oct 21, 2017 12:31
--- NOTE | 2017-10-21 17:09 | HHI.PR ---
Subjective Remarks ALERT NO DISTRESS TRACH OK Objective GENERAL: SKIN: Warm and dry. HEAD: Atraumatic. Normocephalic. EYES: Pupils equal and round. No scleral icterus. No injection or drainage. ENT: No nasal bleeding or discharge. Mucous membranes pink and moist. NECK: Trachea midline. No JVD. CARDIOVASCULAR: Regular rate and rhythm. RESPIRATORY: No accessory muscle use. Clear to auscultation. Breath sounds equal bilaterally. GASTROINTESTINAL: Abdomen soft, non-tender, nondistended. Hepatic and splenic margins not palpable. MUSCULOSKELETAL: Extremities without clubbing, cyanosis, or edema. No obvious deformities. NEUROLOGICAL: Awake and alert. No obvious cranial nerve deficits. Motor grossly within normal limits. Five out of 5 muscle strength in the arms and legs. Normal speech. PSYCHIATRIC: Appropriate mood and affect; insight and judgment normal. Vital Signs Date Time Temp Pulse Resp B/P (MAP) Pulse Ox O2 Delivery O2 Flow Rate FiO2 10/21/17 16:13 98.3 89 18 148/90 (109) 96 10/21/17 12:17 98.3 80 20 142/74 (96) 96 10/21/17 11:10 99 T-piece 28 10/21/17 08:00 80 10/21/17 08:00 96 T-Piece 6.00 28 10/21/17 08:00 98.0 80 18 135/75 (95) 95 10/21/17 04:00 97.8 84 18 132/78 (96) 96 10/21/17 03:46 83 10/21/17 00:00 99.1 88 18 159/81 (107) 95 10/20/17 23:53 99 10/20/17 20:33 99 T-piece 6.00 28 10/20/17 20:00 98.3 107 18 136/85 (102) 94 10/20/17 19:46 101 10/20/17 19:00 T-Piece 6.00 28 10/20/17 18:53 82 I/O 10/20/17 10/20/17 10/20/17 10/21/17 10/21/17 10/21/17 07:00 15:00 23:00 07:00 15:00 23:00 Intake Total 0 ml 1620 ml 0 ml Output Total 500 ml 0 ml 1200.0 ml 650 ml 0 ml Balance -500 ml 0 ml 420.0 ml -650 ml 0 ml Intake Oral 0 ml 0 ml Tube Feeding 720 ml Other 900 ml Output Urine Total 500 ml 1200 ml 650 ml Tube Feeding Residual Discard 0 ml 0 ml 0 ml 0 ml 0 ml # Bowel Movements 0 0 Objective Remarks GENERAL: SKIN: Warm and dry. HEAD: Atraumatic. Normocephalic. EYES: Pupils equal and round. No scleral icterus. No injection or drainage. ENT: No nasal bleeding or discharge. Mucous membranes pink and moist. NECK: Trachea midline. No JVD. CARDIOVASCULAR: Regular rate and rhythm. RESPIRATORY: No accessory muscle use. Clear to auscultation. Breath sounds equal bilaterally. GASTROINTESTINAL: Abdomen soft, non-tender, nondistended. Hepatic and splenic margins not palpable. MUSCULOSKELETAL: Extremities without clubbing, cyanosis, or edema. No obvious deformities. NEUROLOGICAL: Awake and alert. No obvious cranial nerve deficits. Motor grossly within normal limits. Five out of 5 muscle strength in the arms and legs. Normal speech. PSYCHIATRIC: Appropriate mood and affect; insight and judgment normal. Assessment and Plan Assessment and Plan RESPIRATORY FAILURE S/P TRACH S/P CVA OBESITY HTN PLAN O2 NEEDED PULM TOILET INCREASE ACTIVITY REMOVE TRACH WHEN POSSIBLE Wang Piña MD Oct 21, 2017 17:09
[2017-10-21] MEDS: ATORVASTATIN 40 MG TAB DOBHOFF SCH (22:35)
[2017-10-22] VITALS (12 sets, daily range): BP systolic 124–144; BP diastolic 62–81; PULSE 72–85; RESP 20–21; TEMP 97.9–98.4; O2SAT 94–100
[2017-10-22] MEDS: INSULIN ASPART SUPPLEMENTAL SCALE SQ SCH ×5 (00:43→23:53)
[2017-10-22] MEDS: PROPRANOLOL HCL 40 MG TAB G-TUBE SCH ×5 (00:43→23:52)
[2017-10-22] MEDS: FREE WATER G-TUBE SCH ×7 (00:51→23:52)
[2017-10-22] MEDS: CHLORHEXIDINE GLUCONATE 2 % 1 PACK (2 CLOTHS) TOP SCH (04:00)
[2017-10-22] MEDS: hydrALAZINE HCL 100 MG TAB G-TUBE SCH ×3 (05:06→20:37)
[2017-10-22] MEDS: cloNIDine HCL 0.3 MG TAB G-TUBE SCH ×3 (05:06→20:37)
[2017-10-22] MEDS: QUEtiapine FUMARATE 25 MG TAB G-TUBE SCH ×3 (05:07→20:37)
[2017-10-22] MEDS: DOCUSATE SODIUM 50 MG/SENNA 8.6 MG TAB G-TUBE SCH ×2 (09:00→20:38)
[2017-10-22] MEDS: POLYETHYLENE GLYCOL 17 GM PKG G-TUBE SCH ×2 (09:00→20:38)
[2017-10-22] MEDS: FAMOTIDINE 20 MG TAB NG SCH ×2 (09:48→20:36)
[2017-10-22] MEDS: SODIUM CHLORIDE 0.9% FLUSH 10 ML FLUSH IVF PRN (09:48)
[2017-10-22] MEDS: CHLORHEXIDINE GLUCONATE 0.12% 15 ML CUP SWISH-SPIT SCH ×3 (09:49→18:02)
[2017-10-22] MEDS: FLUTICASONE PROPIONATE 50 MCG/ACT 16 GM NASAL SPRAY EACH NARE SCH (09:52)
[2017-10-22] MEDS: INSULIN DETEMIR 100 UNITS/ML VIAL SQ SCH ×2 (10:43→20:37)
--- NOTE | 2017-10-22 13:18 | HHI.PR ---
Subjective Remarks 1-11 Patient seen and examined [place] Of trach capping unsuccessful AWAIT SAFE PLACEMENT RIGHT SIDE IS LESS FLACCID 1-12 MOVING RIGHT SIDE MORE- NOT TOTALLY FLACCID MOVING LEFT SIDE WELL CONTINUE PT AND OT Objective Vitals Vital Signs Date Time Temp Pulse Resp B/P (MAP) Pulse Ox O2 Delivery O2 Flow Rate FiO2 10/22/17 09:00 T-Piece 6.00 28 10/22/17 08:11 98.1 72 21 136/78 (97) 99 10/22/17 08:01 72 10/22/17 04:16 74 10/22/17 04:00 98.2 76 20 129/71 (90) 100 10/22/17 00:11 84 10/22/17 00:00 97.9 85 20 124/62 (82) 100 10/21/17 20:45 T-Piece 6.00 28 10/21/17 20:33 77 10/21/17 20:00 98.3 86 16 139/78 (98) 97 10/21/17 16:13 98.3 89 18 148/90 (109) 96 I/O 10/21/17 10/21/17 10/21/17 10/22/17 10/22/17 10/22/17 07:00 15:00 23:00 07:00 15:00 23:00 Intake Total 0 ml 1620 ml 0 ml Output Total 650 ml 0 ml 400.0 ml 400 ml Balance -650 ml 0 ml 1220.0 ml -400 ml Intake Oral 0 ml 0 ml Tube Feeding 720 ml Other 900 ml Output Urine Total 650 ml 400 ml 400 ml Tube Feeding Residual Discard 0 ml 0 ml 0 ml # Bowel Movements 0 0 Imaging Last Impressions Chest X-Ray 09/26/17 0000 Signed Impressions: Service Date/Time: Tuesday, September 26, 2017 09:45 - CONCLUSION: Stable examination with left basilar consolidation/effusion. Reyes Guzman MD Maxillofacial CT 09/16/17 0000 Signed Impressions: Service Date/Time: September 01:03 - CONCLUSION: 1. Evidence of acute pansinusitis. 2. Opacification of multiple bilateral mastoid air cells most characteristic of mastoiditis. 3. Mildly prominent cervical chain nodes which may be reactive. Angelo Conn MD Upper Extremity Ultrasound 09/15/17 0000 Signed Impressions: Service Date/Time: Friday, September 15, 2017 17:14 - CONCLUSION: Occlusive thrombus within the left cephalic vein and nonocclusive thrombus within the right cephalic vein. Ric Jack MD Lower Extremity Ultrasound 09/15/17 0000 Signed Impressions: Service Date/Time: Friday, September 15, 2017 16:58 - CONCLUSION: No evidence of DVT within the lower extremities. Ric Jack MD Head CT 09/13/17 0800 Signed Impressions: Service Date/Time: Wednesday, September 13, 2017 09:17 - CONCLUSION: 1. Resolving left basal ganglia hematoma Natan Lagos MD Chest CT 09/13/17 0000 Signed Impressions: Service Date/Time: Wednesday, September 13, 2017 09:28 - CONCLUSION: 1. Bibasilar and left lingular dependent atelectatic changes. Lungs are otherwise clear. 2. Tracheostomy tube with the tip probably positioned above the connie. 3. Compensated cardiomegaly. Reyes Guzman MD Abdomen/Pelvis CT 09/13/17 0000 Signed Impressions: Service Date/Time: Wednesday, September 13, 2017 09:28 - CONCLUSION: 1. There is some stranding in the retroperitoneal perivascular tissues around the distal aorta extending into the bifurcation with a regional borderline lymph nodes. Findings are characteristic of a nonspecific inflammatory process. Findings could represent early retroperitoneal fibrosis.. 2. Urinary bladder is decompressed with some mural thickening in pericystic inflammatory changes possibly representing a chronic cystitis. Nondependent air could be associated with a recent catheterization/instrumentation. 3. Small umbilical and right inguinal hernias only contain fat. 4. Bilateral dependent basilar and left lingular atelectatic changes. Heart size is borderline prominent. 5. Otherwise , bowel is intact without obstruction to explain abdominal distention Reyes Guzman MD Abdomen X-Ray 09/10/17 0600 Signed Impressions: Service Date/Time: Sunday, September 10, 2017 03:56 - CONCLUSION: No significant abnormality is identified. There is mild distention of the colon but there are no findings to suggest bowel obstruction or significant ileus. Ignacio Underwood MD Liver Ultrasound 09/07/17 0000 Signed Impressions: Service Date/Time: Thursday, September 07, 2017 12:37 - CONCLUSION: 1. Unremarkable sonographic appearance of the liver. No evidence for hepatic volume loss or intrahepatic ductal dilatation. 2. No sonographic evidence for cholelithiasis or acute cholecystitis. 3. Mild increased right renal echogenicity may reflect medical renal disease. 4. Small bilateral pleural effusions. 5. Pancreas and inferior pole of the right kidney are obscured by bowel gas and therefore not evaluated. Darrell Robles MD Renal Ultrasound 08/31/17 0000 Signed Impressions: Service Date/Time: Thursday, August 31, 2017 17:42 - CONCLUSION: 1. No evidence of hydronephrosis on either side. 2. Solitary linear echogenic focus in the upper pole parenchyma of the right kidney has similar features to prior examination in January 2017 and possibly represents a calcification. David Snell MD Neck CTA 08/28/17 2347 Signed Impressions: Service Date/Time: Tuesday, August 29, 2017 00:13 - CONCLUSION: Negative carotid CTA. David Snell MD Head CTA 08/28/17 2347 Signed Impressions: Service Date/Time: Tuesday, August 29, 2017 00:13 - CONCLUSION: 1. No evidence of vessel truncation or aneurysm. 2. No abnormal vessels in the region of the large left thalamic hemorrhage. David Snell MD Objective Remarks GENERAL: Awake and alert moves left side- LESS flaccid on the right side - MOVING SOME-has tracheostomy in place and PEG tube in place SKIN: Warm and dry. HEAD: Atraumatic. Normocephalic. EYES: Pupils equal and round. No scleral icterus. No injection or drainage. ENT: No nasal bleeding or discharge. Mucous membranes pink and moist. NECK: Trachea midline. No JVD. Tracheostomy in place CARDIOVASCULAR: Regular rate and rhythm. S1 and S2 no S3 or S4 RESPIRATORY: No accessory muscle use.. Breath sounds equal bilaterally. Coarse breath sounds bilaterally GASTROINTESTINAL: Abdomen soft, non-tender, nondistended. Hepatic and splenic margins not palpable. PEG tube CONDOM CATHETER IN PLACE MUSCULOSKELETAL: Extremities without clubbing, cyanosis, or edema. No obvious deformities. Right side flaccid moves left side NEUROLOGICAL: Awake and alert. No obvious cranial nerve deficits. Motor grossly within normal limits. Five out of 5 muscle strength in the left arms and legs--LESS flaccid on the right- NO MOVING SOME. Cannot assess Normal speech due to to trach. PSYCHIATRIC: Appropriate mood and affect; insight and judgment normal cannot assess either of these due to trach. Procedures Tracheostomy and PEG placement Medications and IVs Current Medications Sodium Chloride 1,000 ml @ 70 mls/hr [id number] ONCE IV ; Start 08/28/17 at 23:47 ; Stop 08/29/17 at 14:04; Status DC Nicardipine HCl 25 mg/Sodium Chloride 250 ml @ 50 mls/hr TITRATE PRN IV Blood pressure management; Start 08/29/17 at 00:00; Stop 08/29/17 at 00:48; Status DC Propofol 100 ml @ 0 mls/hr TITRATE PRN IV SEDATION; Start 08/29/17 at 00:00; Stop 08/29/17 at 00:40; Status DC Propofol 100 ml @ As Directed STK-MED ONCE .ROUTE ; Start 08/28/17 at 23:57; Stop 08/28/17 at 23:58; Status DC Etomidate (Amidate Inj) 20 mg ONCE ONCE IVP ; Start 08/29/17 at 00:00; Stop 08/29/17 at 00:01; Status DC Succinylcholine Chloride (Quelicin Inj) 100 mg ONCE ONCE IV PUSH ; Start 08/29 at 00:00; Stop 08/29/17 at 00:01; Status DC Sodium Chloride (NS Flush) 2 ml UNSCH PRN IVF FLUSH AFTER USING IV ACCESS Last administered on 10/22/17at 09:48; Start 08/29/17 at 00:00 Rocuronium [place] (Zemuron Inj) 50 mg BOLUS ONCE IV ; Start 08/29/17 at 00:15 ; Stop 08/29/17 at 00:17; Status DC Iohexol (Omnipaque 350 Inj) 100 ml STK-MED ONCE IVCONTRAST Last administered on 08/29/17t 00:18; Start 08/29/17 at 00:18; Stop 08/29/17 at 00:19; Status DC Chlorhexidine Gluconate (Peridex 0.12% Liq) 15 ml BID@08,20 MT Last administered on 10/11/17at 09:59; Start 08/29/17 at 08:00; Stop 10/11/17 at 14:08 ; Status DC Propofol 100 ml @ 3 mls/hr TITRATE PRN IV SEDATION; Start 08/29/17 at 00:45; Stop 08/29/17 at 04:17; Status DC Nicardipine HCl (Cardene Inj) 25 mg STK-MED ONCE .ROUTE ; Start 08/29/17 at 00: 36; Stop 08/29/17 at 00:37; Status DC Nicardipine HCl 25 mg/Sodium Chloride 250 ml @ 50 mls/hr TITRATE PRN IV BLOOD PRESSURE MANAGEMENT Last administered on 09/02/17 09:52; Start 08/29/17 at 00 :45; Stop 09/02/17 at 21:12; Status DC Labetalol HCl (Trandate Inj) 10 mg Q20M PRN IV PUSH SBP>140, DBP>90 Last administered on 09/19/17 02:16; Start 08/29/17 at 00:45 Amlodipine Besylate (Norvasc) 10 mg DAILY PO Last administered on 09/24/17 09 :14; Start 08/29/17 at 09:00; Stop 09/25/17 at 09:29; Status DC Lisinopril (Prinivil) 40 mg DAILY PO Last administered on 09/04/17 09:07; Start 08/29/17 at 09:00; Stop 09/04/17 at 12:18; Status DC Sodium Chloride 1,000 ml @ 75 mls/hr [id number] IV Last administered on 06:03; Start 08/29/17 at 00:43; Stop 08/31/17 at 11:07; Status DC Acetaminophen (Tylenol) 650 mg Q6H PRN PO PAIN 1-5 AND/OR FEVER >101F Last administered on 09/23/17 03:09; Start 08/29/17 at 00:45; Stop 09/25/17 at 09 :29; Status DC Morphine Sulfate (Morphine Inj) 2 mg Q2H PRN IV PUSH PAIN SCALE 6 TO 10 Last administered on 09/17/17 03:33; Start 08/29/17 at 00:45; Stop 09/24/17 at 16: 27; Status DC Pantoprazole Sodium (Protonix Inj) 40 mg DAILY IV PUSH Last administered on 09:15; Start 08/29/17 at 09:00; Stop 09/11/17 at 10:25; Status DC Ondansetron HCl (Zofran Inj) 4 mg Q6H PRN IV PUSH NAUSEA OR VOMITING Last administered on 09/11/17 14:18; Start 08/29/17 at 00:45 Albuterol/ Ipratropium (Duoneb Neb) 1 ampule Q4HR NEB PRN INH WHEEZING Last administered on 09/15/17 11:55; Start 08/29/17 at 00:45; Stop 09/17/17 at 12: 47; Status DC Miscellaneous Information 1 [id number] Last administered on 08/29/17 01:00; Start 08/29/17 at 00:45 Chlorhexidine Gluconate (Chlorhexidine 2% Cloth) Taper DAILY@04 TOP ; Start at 04:00; Stop 08/25/18 at 03:59 Chlorhexidine Gluconate (Chlorhexidine 2% Cloth) 3 pack UNSCH PRN TOP HYGIENIC CARE; Start 08/29/17 at 00:45 Senna/Docusate Sodium (Melina-Colace) 1 tab BID PO Last administered on 09:15; Start 08/29/17 at 09:00; Stop 08/31/17 at 11:08; Status DC Magnesium Hydroxide (Milk Of Magnesia Liq) 30 ml Q12H PRN PO Mild constipation ; Start 08/29/17 at 00:45; Stop 08/31/17 at 11:08; Status DC Sennosides (Senokot) 17.2 mg Q12H PRN PO Moderate constipation; Start at 00:45; Stop 08/31/17 at 11:08; Status DC Bisacodyl (Dulcolax Supp) 10 mg DAILY PRN RECTAL SEVERE CONSITIPATION; Start 08/29/17 at 00:45; Stop 08/31/17 at 11:08; Status DC Lactulose (Lactulose Liq) 30 ml DAILY PRN PO SEVERE CONSITIPATION; Start 08/29 at 00:45; Stop 08/31/17 at 11:08; Status DC Fentanyl Citrate 250 ml @ 5 mls/hr TITRATE PRN IV SEDATION Last administered on 09/11/17 06:14; Start 08/29/17 at 00:45; Stop 09/11/17 at 10:20; Status DC Fentanyl Citrate 250 ml @ As Directed STK-MED ONCE .ROUTE ; Start 08/29/17 at 01:30; Stop 08/29/17 at 04:10; Status DC Propofol 100 ml @ 3 mls/hr TITRATE PRN IV SEDATION Last administered on 07:37; Start 08/29/17 at 04:30; Stop 08/31/17 at 11:08; Status DC Rocuronium [place] (Zemuron Inj) 100 mg STAT ONCE IV Last administered on 02:00; Start 08/29/17 at 02:00; Stop 08/29/17 at 04:18; Status DC Atorvastatin Calcium (Lipitor) 40 mg HS PO Last administered on 09/24/17 20: 43; Start 08/29/17 at 21:00; Stop 09/25/17 at 09:29; Status DC Hydrochlorothiazide (Hydrodiuril) 25 mg DAILY PO Last administered on 10:37; Start 08/29/17 at 09:00; Stop 09/08/17 at 11:02; Status DC Metoprolol Tartrate (Lopressor) 100 mg BID PO Last administered on 08/31/17 09:15; Start 08/29/17 at 09:00; Stop 09/11/17 at 10:20; Status DC Clonidine (Catapres) 0.1 mg Q8HR PO Last administered on 09/06/17 04:55; Start 08/29/17 at 06:00; Stop 09/06/17 at 11:33; Status DC Sodium Chloride 1,000 ml @ 999 mls/hr Q1H1M ONCE IV Last administered on 08/29 06:10; Start 08/29/17 at 06:30; Stop 08/29/17 at 07:30; Status DC Magnesium Oxide (Mag-Ox) 800 mg UNSCH PRN PO For Magnesium 1.2 - 1.6 mg/dL; Start 08/29/17 at 13:15; Stop 08/30/17 at 15:34; Status DC Magnesium Sulfate 4 gm/Sodium Chloride 100 ml @ 50 mls/hr UNSCH PRN IV For Magnesium 0.9 - 1.1 mg/dL; Start 08/29/17 at 13:15; Stop 08/30/17 at 15:34; Status DC Magnesium Sulfate 2 gm/Sodium Chloride 100 ml @ 50 mls/hr UNSCH PRN IV For Magnesium 1.2 - 1.6 mg/dL; Start 08/29/17 at 13:15; Stop 08/30/17 at 15:34; Status DC Potassium Chloride 100 ml @ 50 mls/hr Q2H PRN IV For Potassium 2.8 - 3.2 mEq/ L Last administered on 08/29/17t 17:06; Start 08/29/17 at 13:15; Stop at 15:34; Status DC Potassium Chloride 100 ml @ 50 mls/hr Q2H PRN IV For Potassium 3.3 - 3.5 mEq/ L Last administered on 08/30/17t 06:13; Start 08/29/17 at 13:15; Stop at 15:34; Status DC Potassium Chloride 100 ml @ 50 mls/hr Q2H PRN IV For Potassium 2.8 - 3.2 mEq/L ; Start 08/29/17 at 13:15; Stop 08/30/17 at 15:34; Status DC Potassium Chloride 100 ml @ 25 mls/hr UNSCH PRN IV For Potassium 3.3 - 3.5 mEq /L; Start 08/29/17 at 13:15; Stop 08/30/17 at 15:34; Status DC Potassium Phosphate (K-Phos) 2,000 mg Q4H PRN PO For Phosphorus < 2.5 mg/dL; Start 08/29/17 at 13:15; Stop 08/30/17 at 15:34; Status DC Potassium Phosphate (K-Phos) 2,000 mg UNSCH PRN PO/TUBE SEE LABEL COMMENTS; Start 08/29/17 at 13:15; Stop 08/30/17 at 15:34; Status DC Potassium Phosphate 30 mmol/ Sodium Chloride 260 ml @ 42 mls/hr UNSCH PRN IV SEE LABEL COMMENTS; Start 08/29/17 at 13:15; Stop 08/30/17 at 15:34; Status DC Sodium Phosphate 30 mmol/Sodium Chloride 250 ml @ 42 mls/hr UNSCH PRN IV For Phosphorus < 2.5 mg/dL; Start 08/29/17 at 13:15; Stop 08/30/17 at 15:34; Status DC Dextrose (D50w (Vial) Inj) 25 ml UNSCH PRN IV PUSH HYPOGLYCEMIA-SEE COMMENTS; Start 08/30/17 at 08:15; Stop 09/18/17 at 11:53; Status DC Insulin Human Regular (NovoLIN R SUPPLEMENTAL SCALE) 1 Q6HR SQ Last administered on 09/18/17t 05:34; Start 08/30/17 at 12:00; Stop 09/18/17 at 11: 53; Status DC Magnesium Oxide (Mag-Ox) 800 mg UNSCH PRN PO For Magnesium 1.2 - 1.6 mg/dL; Start 08/30/17 at 08:15; Stop 08/31/17 at 13:02; Status DC Magnesium Sulfate 4 gm/Sodium Chloride 100 ml @ 50 mls/hr UNSCH PRN IV For Magnesium 0.9 - 1.1 mg/dL; Start 08/30/17 at 08:15; Stop 08/31/17 at 13:02; Status DC Magnesium Sulfate 2 gm/Sodium Chloride 100 ml @ 50 mls/hr UNSCH PRN IV For Magnesium 1.2 - 1.6 mg/dL; Start 08/30/17 at 08:15; Stop 08/31/17 at 13:02; Status DC Potassium Chloride 100 ml @ 50 mls/hr Q2H PRN IV For Potassium 2.8 - 3.2 mEq/L ; Start 08/30/17 at 08:15; Stop 08/31/17 at 13:02; Status DC Potassium Chloride 100 ml @ 50 mls/hr Q2H PRN IV For Potassium 3.3 - 3.5 mEq/L ; Start 08/30/17 at 08:15; Stop 08/31/17 at 13:02; Status DC Potassium Chloride 100 ml @ 50 mls/hr Q2H PRN IV For Potassium 2.8 - 3.2 mEq/L ; Start 08/30/17 at 08:15; Stop 08/31/17 at 13:02; Status DC Potassium Chloride 100 ml @ 25 mls/hr UNSCH PRN IV For Potassium 3.3 - 3.5 mEq /L; Start 08/30/17 at 08:15; Stop 08/31/17 at 13:02; Status DC Potassium Phosphate (K-Phos) 2,000 mg Q4H PRN PO For Phosphorus < 2.5 mg/dL; Start 08/30/17 at 08:15; Stop 08/31/17 at 13:02; Status DC Potassium Phosphate (K-Phos) 2,000 mg UNSCH PRN PO/TUBE SEE LABEL COMMENTS; Start 08/30/17 at 08:15; Stop 08/31/17 at 13:02; Status DC Potassium Phosphate 30 mmol/ Sodium Chloride 260 ml @ 42 mls/hr UNSCH PRN IV SEE LABEL COMMENTS; Start 08/30/17 at 08:15; Stop 08/31/17 at 13:02; Status DC Sodium Phosphate 30 mmol/Sodium Chloride 250 ml @ 42 mls/hr UNSCH PRN IV For Phosphorus < 2.5 mg/dL; Start 08/30/17 at 08:15; Stop 08/31/17 at 13:02; Status DC Hydralazine HCl (Apresoline Inj) 10 mg Q30M PRN IV PUSH sbp > 160 Last administered on 09/19/17 09:08; Start 08/30/17 at 08:15 Oxycodone HCl (Roxicodone Intensol Liq) 5 mg Q4H PO Last administered on 09:16; Start 08/30/17 at 09:00; Stop 08/31/17 at 11:07; Status DC Dexmedetomidine HCl 50 ml @ 29.9 mls/hr TITRATE IV ; Start 08/30/17 at 14:15; Stop 08/30/17 at 14:46; Status DC Dexmedetomidine HCl 200 mcg/ Sodium Chloride 50 ml @ 29.9 mls/hr TITRATE IV Last administered on 08/30/17 15:27; Start 08/30/17 at 15:00; Stop 08/30/17 at 16:42; Status DC Dexmedetomidine HCl 1000 mcg/ Sodium Chloride 250 ml @ 29.9 mls/hr TITRATE IV Last administered on 08/30/17 17:58; Start 08/30/17 at 16:45; Stop 08/31/17 at 06:14; Status DC Propofol 100 ml @ 14.352 mls/ hr TITRATE PRN IV SEDATION Last administered on 09/10/17 09:59; Start 08/31/17 at 00:30; Stop 09/11/17 at 10:20; Status DC Piperacillin Sod/ Tazobactam Sod 100 ml @ 200 mls/hr Q6HR IV Last administered on 09/01/17 13:02; Start 08/31/17 at 06:00; Stop 09/01/17 at 14 :52; Status DC Morphine Sulfate (Morphine Inj) 10 mg ONCE ONCE IV PUSH Last administered on 08/31/17 06:31; Start 08/31/17 at 06:30; Stop 08/31/17 at 06:31; Status DC Propranolol HCl (Inderal) 10 mg ONCE ONCE PO Last administered on 08/31/17 06:30; Start 08/31/17 at 06:15; Stop 08/31/17 at 06:20; Status DC Oxycodone HCl (Roxicodone Intensol Liq) 10 mg Q4H PO Last administered on 09:17; Start 08/31/17 at 13:00; Stop 09/11/17 at 10:20; Status DC Propranolol HCl (Inderal) 10 mg Q6HR PO Last administered on 09/11/17 05:37; Start 08/31/17 at 12:00; Stop 09/11/17 at 10:20; Status DC Quetiapine Fumarate (SEROquel) 100 mg Q8HR PO Last administered on 09/11/17 05 :37; Start 08/31/17 at 11:00; Stop 09/11/17 at 10:20; Status DC Haloperidol Lactate (Haldol Inj) 5 mg Q4H PRN IV agitation Last administered on 09/12/17 23:04; Start 08/31/17 at 11:00; Stop 09/25/17 at 09:30; Status DC Magnesium Sulfate/ Dextrose 100 ml @ 100 mls/hr Q1H IV Last administered on 12:22; Start 08/31/17 at 12:00; Stop 08/31/17 at 13:00; Status DC Bisacodyl (Dulcolax Supp) 10 mg DAILY RECTAL Last administered on 08/31/17 11 :58; Start 08/31/17 at 12:00; Stop 09/25/17 at 09:30; Status DC Polyethylene Glycol (Miralax) 17 gm BID PO Last administered on 09/20/17 09: 26; Start 08/31/17 at 12:00; Stop 09/25/17 at 09:29; Status DC Lactulose (Lactulose Liq) 30 ml BID PO Last administered on 09/04/17 19:57; Start 08/31/17 at 12:00; Stop 09/25/17 at 09:30; Status DC Senna/Docusate Sodium (Melina-Colace) 1 tab BID PO Last administered on 09:14; Start 08/31/17 at 12:00; Stop 09/25/17 at 09:29; Status DC Magnesium Citrate (Citroma Liq) 300 ml ONCE ONCE PO Last administered on 08/31 11:57; Start 08/31/17 at 12:00; Stop 08/31/17 at 12:01; Status DC Rocuronium [place] (Zemuron Inj) 50 mg STK-MED ONCE .ROUTE Last administered on 08/31/17 14:36; Start 08/31/17 at 14:36; Stop 08/31/17 at 14:37; Status DC Calcium Acetate (Phoslo) 667 mg TID PO Last administered on 09/08/17 10:38; Start 08/31/17 at 18:00; Stop 09/08/17 at 11:02; Status DC Rocuronium [place] (Zemuron Inj) 50 mg STAT ONCE IV Last administered on 08/31 16:00; Start 08/31/17 at 16:00; Stop 08/31/17 at 16:01; Status DC Lactated Ringer's 1,000 ml @ 999 mls/hr BOLUS ONCE IV Last administered on 21:12; Start 08/31/17 at 20:45; Stop 08/31/17 at 21:45; Status DC Piperacillin Sod/ Tazobactam Sod 50 ml @ 100 mls/hr Q6HR IV Last administered on 09/02/17 05:59; Start 09/01/17 at 18:00; Stop 09/02/17 at 10:45; Status DC Piperacillin Sod/ Tazobactam Sod 50 ml @ 100 mls/hr Q8HR IV Last administered on 09/11/17 05:37; Start 09/02/17 at 14:00; Stop 09/11/17 at 10:20; Status DC Nicardipine HCl 50 mg/Sodium Chloride 500 ml @ 50 mls/hr TITRATE PRN IV BLOOD PRESSURE MANAGEMENT Last administered on 09/05/17 22:00; Start 09/02/17 at 21 :15; Stop 09/11/17 at 10:25; Status DC Rocuronium [place] (Zemuron Inj) 50 mg STK-MED ONCE .ROUTE Last administered on 09/03/17 09:22; Start 09/03/17 at 09:22; Stop 09/03/17 at 09:23; Status DC Rocuronium [place] (Zemuron Inj) 50 mg NOW ONCE IV PUSH Last administered on 09/03/17 10:13; Start 09/03/17 at 10:15; Stop 09/03/17 at 10:16; Status DC Rocuronium [place] (Zemuron Inj) 50 mg NOW ONCE IV PUSH Last administered on 09/03/17 11:00; Start 09/03/17 at 11:00; Stop 09/03/17 at 11:01; Status DC Potassium Chloride 30 meq/ Sodium Chloride 115 ml @ 38.333 mls/ hr ONCE ONCE IV-CENTRAL Last administered on 09/03/17 13:36; Start 09/03/17 at 14:00; Stop 09/03/17 at 16:59; Status DC Dexamethasone Sodium Phosphate (Decadron Inj) 6 mg Q6H IV PUSH Last administered on 09/05/17 06:09; Start 09/04/17 at 13:00; Stop 09/05/17 at 11 :55; Status DC Diphenhydramine HCl (Benadryl Inj) 50 mg Q6H IV Last administered on 08:27; Start 09/04/17 at 13:00; Stop 09/07/17 at 12:59; Status DC Lorazepam (Ativan) 2 mg Q8H PO Last administered on 09/07/17 14:35; Start at 15:00; Stop 09/07/17 at 15:18; Status DC Acetaminophen 0 ml @ As Directed STK-MED ONCE IV ; Start 09/05/17 at 07:52; Stop 09/05/17 at 07:53; Status DC Insulin Detemir (Levemir Inj) 10 units Q12H SQ Last administered on 09/11/17 09:16; Start 09/05/17 at 10:00; Stop 09/11/17 at 10:21; Status DC Dexamethasone Sodium Phosphate (Decadron Inj) 4 mg Q12H IV PUSH Last administered on 09/07/17 05:28; Start 09/05/17 at 18:00; Stop 09/07/17 at 17 :59; Status DC Albuterol/ Ipratropium (Duoneb Neb) 1 ampule Q6HR NEB NEB Last administered on 09/08/17 11:05; Start 09/05/17 at 12:00; Stop 09/08/17 at 12:59; Status DC Rocuronium [place] (Zemuron Inj) 50 mg BOLUS STAT IV Last administered on 16:47; Start 09/05/17 at 16:37; Stop 09/05/17 at 16:38; Status DC Fluticasone Propionate (Flonase Tae Spr) 2 spray DAILY EACH NARE Last administered on 10/22/17 09:52; Start 09/05/17 at 17:00 Lactated Ringer's 1,000 ml @ 30 mls/hr Q24H PRN IV SEE LABEL COMMENTS; Start 09/05/17 at 23:00; Stop 09/08/17 at 22:59; Status DC Sodium Chloride 500 ml @ 30 mls/hr [id number] PRN IV SEE LABEL COMMENTS; Start at 23:00; Stop 09/08/17 at 22:59; Status DC Metoprolol Tartrate (Lopressor) 25 mg [employer] PRN PO SEE LABEL COMMENTS; Start 09/05/17 at 23:00; Stop 09/08/17 at 22:59; Status DC Povidone Iodine (Betadine 5% Antisepsis Kit) 1 applic [employer] PRN EACH NARE SEE LABEL COMMENTS; Start 09/05/17 at 23:00; Stop 09/08/17 at 22:59; Status DC Chlorhexidine Gluconate (Chlorhexidine 2% Cloth) 3 pack [employer] PRN TOPICAL SEE LABEL COMMENTS; Start 09/05/17 at 23:00; Stop 09/08/17 at 22:59; Status DC Insulin Human Regular (NovoLIN R INJ) See Protocol Table ... [employer] PRN SQ SEE PROTOCOL TABLE; Start 09/05/17 at 23:00; Stop 09/08/17 at 22:59; Status DC Potassium Chloride 100 ml @ 50 mls/hr ONCE ONCE IV Last administered on 09/06 10:16; Start 09/06/17 at 09:30; Stop 09/06/17 at 11:29; Status DC Clonidine (Catapres) 0.3 mg Q8HR PO Last administered on 09/25/17 05:27; Start 09/06/17 at 14:00; Stop 09/25/17 at 09:29; Status DC Clonidine (Catapres) 0.3 mg ONCE ONCE PO Last administered on 09/06/17 11:55 ; Start 09/06/17 at 11:45; Stop 09/06/17 at 11:46; Status DC Heparin Sodium (Porcine) (Heparin Inj) 5,000 units Q12HR SQ ; Start 09/06/17 at 21:00; Stop 09/06/17 at 21:00; Status DC Gelatin (Gelfoam 12 Mm/7 Mm Top) 1 foam STK-MED ONCE .ROUTE Last administered on 09/07/17 09:47; Start 09/07/17 at 09:47; Stop 09/07/17 at 09:48; Status DC Silver Nitrate/ Potassium Nitrate (Silver Nitrate Applicators) 1 appl ONCE ONCE TOPICAL Last administered on 09/07/17 10:15; Start 09/07/17 at 10:15; Stop 09/07/17 at 10:47; Status DC Potassium Chloride 100 ml @ 50 mls/hr Q2H IV Last administered on 09/07/17 12:45; Start 09/07/17 at 10:45; Stop 09/07/17 at 14:44; Status DC Desmopressin Acetate (Ddavp Tae Spr) 1 spray ONCE ONCE EACH NARE Last administered on 09/07/17 15:00; Start 09/07/17 at 15:00; Stop 09/07/17 at 15 :01; Status DC Propofol (Diprivan 200 Mg/20 ml Inj) 200 mg STK-MED ONCE IV ; Start 09/06/17 at 12:00; Stop 09/07/17 at 15:10; Status DC Lorazepam (Ativan) 1 mg Q12H PO Last administered on 09/09/17 20:27; Start 09/07/17 at 19:00; Stop 09/11/17 at 10:25; Status DC Gelatin (Gelfoam 12 Mm/7 Mm Top) 1 foam Q2HR PRN TOPICAL if still bleeding from peg Last administered on 09/08/17 08:00; Start 09/07/17 at 19:45 Potassium Chloride 100 ml @ 50 mls/hr Q2H IV Last administered on 09/08/17 11:59; Start 09/08/17 at 09:00; Stop 09/08/17 at 12:59; Status DC Potassium Chloride (KCl) 40 meq ONCE ONCE PO ; Start 09/08/17 at 09:00; Stop 09/08/17 at 12:05; Status DC Potassium Chloride (KCl Powder) 40 meq ONCE ONCE PEG Last administered on 12:15; Start 09/08/17 at 12:15; Stop 09/08/17 at 12:21; Status DC Midazolam HCl (Versed Inj) 10 mg ONCE ONCE IV PUSH ; Start 09/08/17 at 13:00; Stop 09/08/17 at 13:41; Status DC Sodium Chloride 1,000 ml @ 999 mls/hr BOLUS ONCE IV Last administered on 13:00; Start 09/08/17 at 13:00; Stop 09/08/17 at 14:00; Status DC Rocuronium [place] (Zemuron Inj) 100 mg BOLUS ONCE IV ; Start 09/08/17 at 13: 00; Stop 09/08/17 at 13:44; Status DC Albuterol/ Ipratropium (Duoneb Neb) 1 ampule Q6HR NEB NEB Last administered on 09/12/17 15:34; Start 09/08/17 at 16:00; Stop 09/12/17 at 15:59; Status DC Midazolam HCl (Versed Inj) 10 mg STK-MED ONCE .ROUTE Last administered on 09/08 13:39; Start 09/08/17 at 13:12; Stop 09/08/17 at 13:13; Status DC Rocuronium [place] (Zemuron Inj) 100 mg STK-MED ONCE .ROUTE Last administered on 09/08/17 13:12; Start 09/08/17 at 13:12; Stop 09/08/17 at 13:13; Status DC Midazolam HCl (Versed Inj) 5 mg STK-MED ONCE .ROUTE Last administered on 13:52; Start 09/08/17 at 13:44; Stop 09/08/17 at 13:45; Status DC Midazolam HCl (Versed Inj) 5 mg STK-MED ONCE .ROUTE Last administered on 13:52; Start 09/08/17 at 13:49; Stop 09/08/17 at 13:50; Status DC Potassium Bicarb/ Potassium Chloride (K-Lyte Cl Eff) 25 meq ONCE ONCE PO Last administered on 09/09/17 11:15; Start 09/09/17 at 11:00; Stop 09/09/17 at 11:03; Status DC Metoclopramide HCl (Reglan Inj) 5 mg Q8HR IV PUSH Last administered on 22:55; Start 09/09/17 at 22:00; Stop 09/11/17 at 10:25; Status DC Potassium Chloride 100 ml @ 50 mls/hr Q2H IV Last administered on 09/10/17 16 :01; Start 09/10/17 at 13:00; Stop 09/10/17 at 16:59; Status DC Insulin Detemir (Levemir Inj) 12 units Q12H SQ Last administered on 09/17/17 10:42; Start 09/11/17 at 22:00; Stop 09/17/17 at 15:27; Status DC Oxycodone HCl (Roxicodone Intensol Liq) 5 mg Q4H PO Last administered on 08:28; Start 09/11/17 at 13:00; Stop 09/17/17 at 12:47; Status DC Propranolol HCl (Inderal) 30 mg Q6HR PO Last administered on 09/17/17 04:23; Start 09/11/17 at 12:00; Stop 09/17/17 at 12:47; Status DC Quetiapine Fumarate (SEROquel) 50 mg Q8HR PO Last administered on 09/12/17 21: 37; Start 09/11/17 at 14:00; Stop 09/25/17 at 09:29; Status DC Modafinil (Provigil) 200 mg DAILY PO Last administered on 09/12/17 09:07; Start 09/11/17 at 12:00; Stop 09/25/17 at 09:30; Status DC Water (Free Water) VOLUME: 200 ML Q4HR G-TUBE Last administered on 09/18/17 08 :00; Start 09/11/17 at 12:00; Stop 09/18/17 at 11:53; Status DC Famotidine (Pepcid) 10 mg BID NG Last administered on 09/23/17 20:42; Start 09/11/17 at 21:00; Stop 09/24/17 at 09:10; Status DC Heparin Sodium (Porcine) (Heparin Inj) 5,000 units Q12HR SQ Last administered on 09/28/17 08:20; Start 09/11/17 at 21:00; Status Future Hold Lorazepam (Ativan Inj) 1 mg ONCE ONCE IV PUSH Last administered on 09/13/17 02:57; Start 09/13/17 at 02:45; Stop 09/13/17 at 02:46; Status DC Pharmacy Profile Note 0 ml @ 0 mls/hr UNSCH OTHER ; Start 09/13/17 at 02:45; Stop 09/17/17 at 10:11; Status DC Piperacillin Sod/ Tazobactam Sod 50 ml @ 100 mls/hr Q6H IV Last administered on 09/19/17 20:26; Start 09/13/17 at 03:00; Stop 09/19/17 at 23:00; Status DC Nicardipine HCl 25 mg/Sodium Chloride 250 ml @ 50 mls/hr TITRATE PRN IV Blood pressure management Last administered on 09/17/17 04:57; Start 09/13/17 at 02: 45; Stop 09/17/17 at 12:47; Status DC Dantrolene Sodium (Dantrium Inj) 70 mg ONCE ONCE IV Last administered on 03:55; Start 09/13/17 at 03:00; Stop 09/13/17 at 03:01; Status DC Vancomycin HCl 2000 mg/Sodium Chloride 520 ml @ 250 mls/hr ONCE ONCE IV Last administered on 09/13/17 05:52; Start 09/13/17 at 04:00; Stop 09/13/17 at 06:04 ; Status DC Vancomycin HCl 2500 mg/Sodium Chloride 525 ml @ 250 mls/hr ONCE ONCE IV Last administered on 09/14/17 12:29; Start 09/14/17 at 12:00; Stop 09/14/17 at 14:05 ; Status DC Potassium Chloride 100 ml @ 50 mls/hr Q2H IV Last administered on 09/15/17 10 :22; Start 09/15/17 at 08:15; Stop 09/15/17 at 12:14; Status DC Dexamethasone Sodium Phosphate (Decadron Inj) 6 mg Q6HR IV PUSH Last administered on 09/17/17 04:24; Start 09/15/17 at 14:15; Stop 09/17/17 at 12:35 ; Status DC Diphenhydramine HCl (Benadryl Inj) 25 mg Q6H IV PUSH Last administered on 08:06; Start 09/15/17 at 15:00; Stop 09/18/17 at 14:59; Status DC Lidocaine HCl (Lidocaine Pf 2% Neb) 1 ml Q6HR NEB PRN NEB cough/bronchial irritation; Start 09/16/17 at 11:30 Vancomycin HCl 1500 mg/Sodium Chloride 515 ml @ 257.5 mls/ hr ONCE ONCE IV Last administered on 09/16/17 17:07; Start 09/16/17 at 15:00; Stop 09/16/17 at 16:59; Status DC Insulin Human Regular (NovoLIN R SUPPLEMENTAL SCALE) 5 ONCE ONCE SQ Last administered on 09/16/17 18:14; Start 09/16/17 at 18:00; Stop 09/16/17 at 18:01 ; Status DC Labetalol HCl (Trandate) 300 mg Q8HR PEG Last administered on 09/25/17 05:26 ; Start 09/17/17 at 14:00; Stop 09/25/17 at 09:31; Status DC Labetalol HCl (Trandate) 300 mg NOW ONCE PEG Last administered on 09/17/17 04 :23; Start 09/17/17 at 04:15; Stop 09/17/17 at 04:16; Status DC Dexamethasone Sodium Phosphate (Decadron Inj) 6 mg Q12HR IV PUSH Last administered on 09/20/17 09:26; Start 09/17/17 at 21:00; Stop 09/20/17 at 20: 59; Status DC Albuterol/ Ipratropium (Duoneb Neb) 1 ampule Q6HR NEB INH Last administered on 09/21/17 08:25; Start 09/17/17 at 16:00; Stop 09/21/17 at 15:59; Status DC Oxycodone HCl (Roxicodone Intensol Liq) 5 mg Q6H PO Last administered on 08:05; Start 09/17/17 at 15:00; Stop 09/18/17 at 12:04; Status DC Propranolol HCl (Inderal) 40 mg Q6HR PO Last administered on 09/25/17 05:26; Start 09/17/17 at 18:00; Stop 09/25/17 at 09:29; Status DC Insulin Detemir (Levemir Inj) 15 units Q12H SQ Last administered on 09/18/17 09:49; Start 09/17/17 at 22:00; Stop 09/18/17 at 11:53; Status DC Water (Free Water) 300 ml Q4HR G-TUBE Last administered on 10/22/17at 12:00; Start 09/18/17 at 12:00 Insulin Detemir (Levemir Inj) 18 units Q12H SQ Last administered on 09/18/17 20:09; Start 09/18/17 at 22:00; Stop 09/19/17 at 08:52; Status DC Dextrose (D50w (Vial) Inj) 25 ml UNSCH PRN IV PUSH HYPOGLYCEMIA-SEE COMMENTS; Start 09/18/17 at 12:00 Insulin Human Regular (NovoLIN R SUPPLEMENTAL SCALE) 1 Q4HR SQ Last administered on 09/25/17 04:09; Start 09/18/17 at 12:00; Stop 09/25/17 at 09: 28; Status DC Oxycodone HCl (Roxicodone Intensol Liq) 5 mg Q6H PRN PO pain 6-10 Last administered on 09/18/17 22:56; Start 09/18/17 at 15:00; Stop 09/25/17 at 09: 29; Status DC Hydralazine HCl (Apresoline) 50 mg Q8HR PO Last administered on 09/19/17 05: 12; Start 09/18/17 at 14:00; Stop 09/19/17 at 08:52; Status DC Insulin Detemir (Levemir Inj) 20 units Q12H SQ Last administered on 10/22/17 10:43; Start 09/19/17 at 10:00 Hydralazine HCl (Apresoline) 100 mg Q8HR PO Last administered on 09/25/17 05: 31; Start 09/19/17 at 14:00; Stop 09/25/17 at 09:29; Status DC Dextrose 1,000 ml @ 42 mls/hr [id number] IV Last administered on 09/20/17 09:25 ; Start 09/19/17 at 08:45; Stop 09/20/17 at 11:39; Status DC Sodium Chloride 38.5 meq/Sterile Water 1,009.625 ml @ 42 mls/hr Q24H IV Last administered on 09/25/17 06:01; Start 09/20/17 at 13:00; Stop 09/25/17 at 09 :24; Status DC Acetaminophen 0 ml @ As Directed STK-MED ONCE IV ; Start 09/21/17 at 09:42; Stop 09/21/17 at 09:43; Status DC Hydromorphone HCl (Dilaudid Pf Inj) 2 mg STK-MED ONCE .ROUTE ; Start 09/21/17 at 09:43; Stop 09/21/17 at 09:44; Status DC Sodium Polystyrene Sulfonate (Kayexalate Liq) 30 gm Q2HR PO Last administered on 09/21/17 19:53; Start 09/21/17 at 16:00; Stop 09/21/17 at 21:00; Status DC Famotidine (Pepcid) 20 mg BID NG Last administered on 10/22/17 09:48; Start 09/24/17 at 09:30 Morphine Sulfate (Morphine Inj) 2 mg Q2H PRN IV PUSH breakthru pain; Start at 16:30 Metoprolol Tartrate (Lopressor) 25 mg Q8H PO Last administered on 09/25/17 05 :25; Start 09/25/17 at 05:00; Stop 09/25/17 at 09:29; Status DC Potassium Bicarb/ Potassium Chloride (K-Lyte Cl Eff) 50 meq ONCE ONCE PO Last administered on 12/16/17at 05:25; Start 09/25/17 at 04:30; Stop 09/25/17 at 04:31; Status DC Sodium Chloride 1,000 ml @ 42 mls/hr [id number] IV ; Start 09/25/17 at 10:00; Stop 09/25/17 at 10:00; Status DC Glucagon (Glucagon Inj) 1 mg UNSCH PRN OTHER HYPOGLYCEMIA-SEE COMMENTS; Start 09/25/17 at 09:30 Insulin Aspart (NovoLOG SUPPLEMENTAL SCALE) 1 Q6H SQ Last administered on 12:24; Start 09/25/17 at 12:00 Acetaminophen (Tylenol) 650 mg Q6H PRN G-TUBE PAIN 1-5 AND/OR FEVER >101F Last administered on 10/15/17 23:34; Start 09/25/17 at 12:45 Amlodipine Besylate (Norvasc) 10 mg DAILY G-TUBE Last administered on 09:48; Start 09/26/17 at 09:00 Atorvastatin Calcium (Lipitor) 40 mg HS DOBHOFF Last administered on 10/21/17 22:35; Start 09/25/17 at 21:00 Clonidine (Catapres) 0.3 mg Q8HR G-TUBE Last administered on 10/22/17 05:06; Start 09/25/17 at 14:00 Senna/Docusate Sodium (Melina-Colace) 1 tab BID G-TUBE Last administered on 09:09; Start 09/25/17 at 21:00 Hydralazine HCl (Apresoline) 100 mg Q8HR G-TUBE Last administered on 10/22/17 05:06; Start 09/25/17 at 14:00 Metoprolol Tartrate (Lopressor) 25 mg Q8H G-TUBE ; Start 09/25/17 at 13:00; Stop 09/25/17 at 13:00; Status DC Oxycodone HCl (Roxicodone Intensol Liq) 5 mg Q6H PRN G-TUBE pain 6-10 Last administered on 10/20/17 13:54; Start 09/25/17 at 15:00 Polyethylene Glycol (Miralax) 17 gm BID G-TUBE Last administered on 1/9/18at 09 :09; Start 09/25/17 at 21:00 Propranolol HCl (Inderal) 40 mg Q6HR G-TUBE Last administered on 10/22/17 12: 24; Start 09/25/17 at 12:00 Quetiapine Fumarate (SEROquel) 50 mg Q8HR G-TUBE Last administered on 05:07; Start 09/25/17 at 14:00 Albuterol Sulfate (Albuterol Neb) 2.5 mg Q2HR NEB PRN NEB sob/wheeze Last administered on 10/11/17at 17:07; Start 09/25/17 at 13:30 Cefuroxime Axetil (Ceftin) 500 mg Q12HR PO Last administered on 10/03/17t 09: 03; Start 09/26/17 at 11:15; Stop 10/03/17 at 11:14; Status DC Sodium Chloride 250 ml @ 15 mls/hr ONCE ONCE IV ; Start 09/28/17 at 10:15; Stop 09/28/17 at 16:53; Status DC Chlorhexidine Gluconate (Peridex 0.12% Liq) 15 ml TID SWISH-SPIT Last administered on 10/22/17 12:24; Start 10/11/17 at 18:00 Methylprednisolone Sodium Succinate (SoluMEDROL INJ) 125 mg ONCE ONCE IV PUSH Last administered on 10/20/17 13:09; Start 10/20/17 at 12:15; Stop 10/20/17 at 12:16; Status DC A/P Problem List: (1) Intracranial hemorrhage ICD Code: I62.9 - Nontraumatic intracranial hemorrhage, unspecified Status: Acute Assessment and Plan Assessment and Plan A/P Acute encephalopathy - improving. Left Thalamic Hemorrhage Intracerebral Hemorrhage - Repeat CT of the head showed improving bleed - Neurosurgery follow-up appreciated; stable for dc to SNF per neurosurgery. - Continue rehabilitation efforts with PT, OT, speech - On Seroquel to control agitated delirium. Roxicodone as needed for pain Anemia likely due to chronic disease. H/H fairly stable. will monitor periodically. Healthcare associated pneumonia finished the course of antibiotic. UTI: treated. Respiratory failure s/p trach - Tolerating T piece - CT of the chest 09/13/17 -LLL infiltrate. Repeat chest x-ray on 09/26/17 shows stable left lower lobe consolidation - continue neb treatment. -Patient had angioedema, source unclear and was seen by ENT. He was treated with steroids. Per ENT, expect slow improvement. This is resolving. -Appreciate pulmonology following for trach management Respiratory failure s/p trach -Did not tolerate trach 10/14/17, -trial of trach capping .... Will give Solu-Medrol 125 mg IV 1 now and attempt another trial this afternoon 10/20/17 Hyperglycemia - persistent. - Continue Levemir 20 units SQ q12h - Continue sliding scale insulin with Accu-Cheks. - hemoglobin A1c 9.1. Hypertension - Intermittent hypertension now well controlled - Continue clonidine, amlodipine and propranolol - Continue hydralazine. Nutrition status: - Status post PEG tube continue tube feeds - Having bowel movements - Continue Free water Acute kidney injury, most likely has CKD per nephrology: Renal function stabilized. - monitor renal function periodically. Physical deconditioning/right sided hemiparesis - OOB to stretcher chair daily - PT/OT following AND SPEECH RIGHT SIDE NOW HAS MORE MOVEMENT IN UE AND LE ON THE RIGHT PROPH: - SCD's. Pepcid for GI prophylaxis Discharge Planning dc planning to SNF VS INPATIENT REHAB in PROCESS Discharge Planning Await case management ability to find SNF VS INPATIENT REHAB FOR AGGRESSIVE PT AND OT AND Kalen Webb DO Oct 22, 2017 13:18
--- NOTE | 2017-10-22 19:27 | HHI.PR ---
Subjective Remarks ALERT NO DISTRESS TRACH OK Objective Vital Signs Date Time Temp Pulse Resp B/P (MAP) Pulse Ox O2 Delivery O2 Flow Rate FiO2 10/22/17 18:25 97 Nasal Cannula 2.00 10/22/17 16:11 98.4 79 20 144/76 (98) 97 10/22/17 13:13 94 Nasal Cannula 2.00 10/22/17 12:10 98.2 79 21 124/74 (91) 97 10/22/17 09:00 T-Piece 6.00 28 10/22/17 08:11 98.1 72 21 136/78 (97) 99 10/22/17 08:01 72 10/22/17 04:16 74 10/22/17 04:00 98.2 76 20 129/71 (90) 100 10/22/17 00:11 84 10/22/17 00:00 97.9 85 20 124/62 (82) 100 10/21/17 20:45 T-Piece 6.00 28 10/21/17 20:33 77 10/21/17 20:00 98.3 86 16 139/78 (98) 97 I/O 10/21/17 10/21/17 10/21/17 10/22/17 10/22/17 10/22/17 07:00 15:00 23:00 07:00 15:00 23:00 Intake Total 0 ml 1620 ml 0 ml Output Total 650 ml 0 ml 400.0 ml 400 ml 1500 ml Balance -650 ml 0 ml 1220.0 ml -400 ml -1500 ml Intake Oral 0 ml 0 ml Tube Feeding 720 ml Other 900 ml Output Urine Total 650 ml 400 ml 400 ml 1500 ml Tube Feeding Residual Discard 0 ml 0 ml 0 ml # Bowel Movements 0 0 1 Objective Remarks GENERAL: SKIN: Warm and dry. HEAD: Atraumatic. Normocephalic. EYES: Pupils equal and round. No scleral icterus. No injection or drainage. ENT: No nasal bleeding or discharge. Mucous membranes pink and moist. NECK: Trachea midline. No JVD. CARDIOVASCULAR: Regular rate and rhythm. RESPIRATORY: No accessory muscle use. Clear to auscultation. Breath sounds equal bilaterally. GASTROINTESTINAL: Abdomen soft, non-tender, nondistended. Hepatic and splenic margins not palpable. MUSCULOSKELETAL: Extremities without clubbing, cyanosis, or edema. No obvious deformities. NEUROLOGICAL: Awake and alert. No obvious cranial nerve deficits. Motor grossly within normal limits. Five out of 5 muscle strength in the arms and legs. Normal speech. PSYCHIATRIC: Appropriate mood and affect; insight and judgment normal. Assessment and Plan Assessment and Plan RESPIRATORY FAILURE S/P TRACH S/P CVA OBESITY HTN PLAN O2 NEEDED PULM TOILET INCREASE ACTIVITY REMOVE TRACH WHEN POSSIBLE Wang Piña MD Oct 22, 2017 19:27
[2017-10-22] MEDS: ATORVASTATIN 40 MG TAB DOBHOFF SCH (20:37)
[2017-10-22] MEDS: oxyCODONE HCL ORAL CONC 5 MG/0.25 ML SYRINGE G-TUBE PRN (22:37)
[2017-10-23] VITALS (15 sets, daily range): BP systolic 117–156; BP diastolic 69–84; PULSE 70–125; RESP 18–21; TEMP 97.6–98.8; O2SAT 93–100
[2017-10-23] MEDS: CHLORHEXIDINE GLUCONATE 2 % 1 PACK (2 CLOTHS) TOP SCH (04:00)
[2017-10-23] MEDS: FREE WATER G-TUBE SCH ×5 (04:46→20:00)
[2017-10-23] MEDS: PROPRANOLOL HCL 40 MG TAB G-TUBE SCH ×3 (05:58→17:42)
[2017-10-23] MEDS: QUEtiapine FUMARATE 25 MG TAB G-TUBE SCH ×3 (05:58→21:29)
[2017-10-23] MEDS: INSULIN ASPART SUPPLEMENTAL SCALE SQ SCH ×3 (05:58→17:49)
[2017-10-23] MEDS: cloNIDine HCL 0.3 MG TAB G-TUBE SCH ×3 (05:58→21:29)
[2017-10-23] MEDS: hydrALAZINE HCL 100 MG TAB G-TUBE SCH ×3 (05:58→21:29)
[2017-10-23] MEDS: CHLORHEXIDINE GLUCONATE 0.12% 15 ML CUP SWISH-SPIT SCH ×3 (09:24→17:42)
[2017-10-23] MEDS: FAMOTIDINE 20 MG TAB NG SCH ×2 (09:24→21:28)
[2017-10-23] MEDS: DOCUSATE SODIUM 50 MG/SENNA 8.6 MG TAB G-TUBE SCH ×2 (09:24→21:00)
[2017-10-23] MEDS: POLYETHYLENE GLYCOL 17 GM PKG G-TUBE SCH ×2 (09:24→21:00)
[2017-10-23] MEDS: INSULIN DETEMIR 100 UNITS/ML VIAL SQ SCH ×2 (09:24→21:29)
[2017-10-23] MEDS: FLUTICASONE PROPIONATE 50 MCG/ACT 16 GM NASAL SPRAY EACH NARE SCH (09:25)
--- NOTE | 2017-10-23 12:12 | HHI.PR ---
Subjective Remarks 1-11 Patient seen and examined Barre Of trach capping unsuccessful AWAIT SAFE PLACEMENT RIGHT SIDE IS LESS FLACCID 1-12 MOVING RIGHT SIDE MORE- NOT TOTALLY FLACCID MOVING LEFT SIDE WELL CONTINUE PT AND OT 1-13 TOLERATING PASSY DIANA VALVE MOVING RIGHT SIDE MORE TO RUIZ WHEN BED AVAILABLE Objective Vitals Vital Signs Date Time Temp Pulse Resp B/P (MAP) Pulse Ox O2 Delivery O2 Flow Rate FiO2 10/23/17 10:46 94 Nasal Cannula 4.00 10/23/17 09:45 Nasal Cannula 4.00 10/23/17 09:30 Blow By 6.00 T-Piece Humidified 10/23/17 08:12 97.6 75 20 117/71 (86) 98 10/23/17 08:00 70 10/23/17 04:06 73 10/23/17 04:00 97.7 72 20 137/78 (97) 96 10/23/17 00:16 125 10/23/17 00:00 97.6 77 20 124/69 (87) 97 10/22/17 20:07 83 10/22/17 20:00 T-Piece 6.00 28 10/22/17 20:00 97.9 81 20 143/81 (101) 98 10/22/17 18:25 97 Nasal Cannula 2.00 10/22/17 16:11 98.4 79 20 144/76 (98) 97 10/22/17 13:13 94 Nasal Cannula 2.00 10/22/17 12:10 98.2 79 21 124/74 (91) 97 I/O 10/22/17 10/22/17 10/22/17 10/23/17 10/23/17 10/23/17 07:00 15:00 23:00 07:00 15:00 23:00 Intake Total 0 ml 600 ml Output Total 400 ml 1500 ml 650 ml Balance -400 ml -1500 ml -650 ml 600 ml Intake Oral 0 ml Other 600 ml Output Urine Total 400 ml 1500 ml 650 ml Stool Total 0 ml # Bowel Movements 0 1 Imaging Last Impressions Chest X-Ray 09/26/17 0000 Signed Impressions: Service Date/Time: Tuesday, September 26, 2017 09:45 - CONCLUSION: Stable examination with left basilar consolidation/effusion. Reyes Guzman MD Maxillofacial CT 09/16/17 0000 Signed Impressions: Service Date/Time: September 01:03 - CONCLUSION: 1. Evidence of acute pansinusitis. 2. Opacification of multiple bilateral mastoid air cells most characteristic of mastoiditis. 3. Mildly prominent cervical chain nodes which may be reactive. Angelo Conn MD Upper Extremity Ultrasound 09/15/17 0000 Signed Impressions: Service Date/Time: Friday, September 15, 2017 17:14 - CONCLUSION: Occlusive thrombus within the left cephalic vein and nonocclusive thrombus within the right cephalic vein. Ric Jack MD Lower Extremity Ultrasound 09/15/17 0000 Signed Impressions: Service Date/Time: Friday, September 15, 2017 16:58 - CONCLUSION: No evidence of DVT within the lower extremities. Ric Jack MD Head CT 09/13/17 0800 Signed Impressions: Service Date/Time: Wednesday, September 13, 2017 09:17 - CONCLUSION: 1. Resolving left basal ganglia hematoma Natan Lagos MD Chest CT 09/13/17 0000 Signed Impressions: Service Date/Time: Wednesday, September 13, 2017 09:28 - CONCLUSION: 1. Bibasilar and left lingular dependent atelectatic changes. Lungs are otherwise clear. 2. Tracheostomy tube with the tip probably positioned above the connie. 3. Compensated cardiomegaly. Reyes Guzman MD Abdomen/Pelvis CT 09/13/17 0000 Signed Impressions: Service Date/Time: Wednesday, September 13, 2017 09:28 - CONCLUSION: 1. There is some stranding in the retroperitoneal perivascular tissues around the distal aorta extending into the bifurcation with a regional borderline lymph nodes. Findings are characteristic of a nonspecific inflammatory process. Findings could represent early retroperitoneal fibrosis.. 2. Urinary bladder is decompressed with some mural thickening in pericystic inflammatory changes possibly representing a chronic cystitis. Nondependent air could be associated with a recent catheterization/instrumentation. 3. Small umbilical and right inguinal hernias only contain fat. 4. Bilateral dependent basilar and left lingular atelectatic changes. Heart size is borderline prominent. 5. Otherwise , bowel is intact without obstruction to explain abdominal distention Reyes Guzman MD Abdomen X-Ray 09/10/17 0600 Signed Impressions: Service Date/Time: Sunday, September 10, 2017 03:56 - CONCLUSION: No significant abnormality is identified. There is mild distention of the colon but there are no findings to suggest bowel obstruction or significant ileus. Ignacio Underwood MD Liver Ultrasound 09/07/17 0000 Signed Impressions: Service Date/Time: Thursday, September 07, 2017 12:37 - CONCLUSION: 1. Unremarkable sonographic appearance of the liver. No evidence for hepatic volume loss or intrahepatic ductal dilatation. 2. No sonographic evidence for cholelithiasis or acute cholecystitis. 3. Mild increased right renal echogenicity may reflect medical renal disease. 4. Small bilateral pleural effusions. 5. Pancreas and inferior pole of the right kidney are obscured by bowel gas and therefore not evaluated. Darrell Robles MD Renal Ultrasound 08/31/17 0000 Signed Impressions: Service Date/Time: Thursday, August 31, 2017 17:42 - CONCLUSION: 1. No evidence of hydronephrosis on either side. 2. Solitary linear echogenic focus in the upper pole parenchyma of the right kidney has similar features to prior examination in January 2017 and possibly represents a calcification. David Snell MD Neck CTA 08/28/177 Signed Impressions: Service Date/Time: Tuesday, August 29, 2017 00:13 - CONCLUSION: Negative carotid CTA. David Snell MD Head CTA 08/28/177 Signed Impressions: Service Date/Time: Tuesday, August 29, 2017 00:13 - CONCLUSION: 1. No evidence of vessel truncation or aneurysm. 2. No abnormal vessels in the region of the large left thalamic hemorrhage. David Snell MD Objective Remarks GENERAL: Awake and alert moves left side- LESS flaccid on the right side - MOVING SOME-has tracheostomy in place and PEG tube in place SKIN: Warm and dry. HEAD: Atraumatic. Normocephalic. EYES: Pupils equal and round. No scleral icterus. No injection or drainage. ENT: No nasal bleeding or discharge. Mucous membranes pink and moist. NECK: Trachea midline. No JVD. Tracheostomy in place CARDIOVASCULAR: Regular rate and rhythm. S1 and S2 no S3 or S4 RESPIRATORY: No accessory muscle use.. Breath sounds equal bilaterally. Coarse breath sounds bilaterally GASTROINTESTINAL: Abdomen soft, non-tender, nondistended. Hepatic and splenic margins not palpable. PEG tube CONDOM CATHETER IN PLACE MUSCULOSKELETAL: Extremities without clubbing, cyanosis, or edema. No obvious deformities. Right side flaccid moves left side NEUROLOGICAL: Awake and alert. No obvious cranial nerve deficits. Motor grossly within normal limits. Five out of 5 muscle strength in the left arms and legs--LESS flaccid on the right- NO MOVING SOME. Cannot assess Normal speech due to to trach. PSYCHIATRIC: Appropriate mood and affect; insight and judgment normal cannot assess either of these due to trach. Procedures Tracheostomy and PEG placement Medications and IVs Current Medications Sodium Chloride 1,000 ml @ 70 mls/hr [id number] ONCE IV ; Start 08/28/17 at 23:47 ; Stop 08/29/17 at 14:04; Status DC Nicardipine HCl 25 mg/Sodium Chloride 250 ml @ 50 mls/hr TITRATE PRN IV Blood pressure management; Start 08/29/17 at 00:00; Stop 08/29/17 at 00:48; Status DC Propofol 100 ml @ 0 mls/hr TITRATE PRN IV SEDATION; Start 08/29/17 at 00:00; Stop 08/29/17 at 00:40; Status DC Propofol 100 ml @ As Directed STK-MED ONCE .ROUTE ; Start 08/28/17 at 23:57; Stop 08/28/17 at 23:58; Status DC Etomidate (Amidate Inj) 20 mg ONCE ONCE IVP ; Start 08/29/17 at 00:00; Stop 08/29/17 at 00:01; Status DC Succinylcholine Chloride (Quelicin Inj) 100 mg ONCE ONCE IV PUSH ; Start 08/29 at 00:00; Stop 08/29/17 at 00:01; Status DC Sodium Chloride (NS Flush) 2 ml UNSCH PRN IVF FLUSH AFTER USING IV ACCESS Last administered on 10/22/17at 09:48; Start 08/29/17 at 00:00 Rocuronium [place] (Zemuron Inj) 50 mg BOLUS ONCE IV ; Start 08/29/17 at 00:15 ; Stop 08/29/17 at 00:17; Status DC Iohexol (Omnipaque 350 Inj) 100 ml STK-MED ONCE IVCONTRAST Last administered on 08/29/17t 00:18; Start 08/29/17 at 00:18; Stop 08/29/17 at 00:19; Status DC Chlorhexidine Gluconate (Peridex 0.12% Liq) 15 ml BID@08,20 MT Last administered on 10/11/17at 09:59; Start 08/29/17 at 08:00; Stop 10/11/17 at 14:08 ; Status DC Propofol 100 ml @ 3 mls/hr TITRATE PRN IV SEDATION; Start 08/29/17 at 00:45; Stop 08/29/17 at 04:17; Status DC Nicardipine HCl (Cardene Inj) 25 mg STK-MED ONCE .ROUTE ; Start 08/29/17 at 00: 36; Stop 08/29/17 at 00:37; Status DC Nicardipine HCl 25 mg/Sodium Chloride 250 ml @ 50 mls/hr TITRATE PRN IV BLOOD PRESSURE MANAGEMENT Last administered on 09/02/17 09:52; Start 08/29/17 at 00 :45; Stop 09/02/17 at 21:12; Status DC Labetalol HCl (Trandate Inj) 10 mg Q20M PRN IV PUSH SBP>140, DBP>90 Last administered on 09/19/17 02:16; Start 08/29/17 at 00:45 Amlodipine Besylate (Norvasc) 10 mg DAILY PO Last administered on 09/24/17 09 :14; Start 08/29/17 at 09:00; Stop 09/25/17 at 09:29; Status DC Lisinopril (Prinivil) 40 mg DAILY PO Last administered on 09/04/17 09:07; Start 08/29/17 at 09:00; Stop 09/04/17 at 12:18; Status DC Sodium Chloride 1,000 ml @ 75 mls/hr [id number] IV Last administered on 06:03; Start 08/29/17 at 00:43; Stop 08/31/17 at 11:07; Status DC Acetaminophen (Tylenol) 650 mg Q6H PRN PO PAIN 1-5 AND/OR FEVER >101F Last administered on 09/23/17 03:09; Start 08/29/17 at 00:45; Stop 09/25/17 at 09 :29; Status DC Morphine Sulfate (Morphine Inj) 2 mg Q2H PRN IV PUSH PAIN SCALE 6 TO 10 Last administered on 09/17/17 03:33; Start 08/29/17 at 00:45; Stop 09/24/17 at 16: 27; Status DC Pantoprazole Sodium (Protonix Inj) 40 mg DAILY IV PUSH Last administered on 09:15; Start 08/29/17 at 09:00; Stop 09/11/17 at 10:25; Status DC Ondansetron HCl (Zofran Inj) 4 mg Q6H PRN IV PUSH NAUSEA OR VOMITING Last administered on 09/11/17 14:18; Start 08/29/17 at 00:45 Albuterol/ Ipratropium (Duoneb Neb) 1 ampule Q4HR NEB PRN INH WHEEZING Last administered on 09/15/17 11:55; Start 08/29/17 at 00:45; Stop 09/17/17 at 12: 47; Status DC Miscellaneous Information 1 [id number] Last administered on 08/29/17 01:00; Start 08/29/17 at 00:45 Chlorhexidine Gluconate (Chlorhexidine 2% Cloth) Taper DAILY@04 TOP ; Start at 04:00; Stop 08/25/18 at 03:59 Chlorhexidine Gluconate (Chlorhexidine 2% Cloth) 3 pack UNSCH PRN TOP HYGIENIC CARE; Start 08/29/17 at 00:45 Senna/Docusate Sodium (Melina-Colace) 1 tab BID PO Last administered on 09:15; Start 08/29/17 at 09:00; Stop 08/31/17 at 11:08; Status DC Magnesium Hydroxide (Milk Of Magnesia Liq) 30 ml Q12H PRN PO Mild constipation ; Start 08/29/17 at 00:45; Stop 08/31/17 at 11:08; Status DC Sennosides (Senokot) 17.2 mg Q12H PRN PO Moderate constipation; Start at 00:45; Stop 08/31/17 at 11:08; Status DC Bisacodyl (Dulcolax Supp) 10 mg DAILY PRN RECTAL SEVERE CONSITIPATION; Start 08/29/17 at 00:45; Stop 08/31/17 at 11:08; Status DC Lactulose (Lactulose Liq) 30 ml DAILY PRN PO SEVERE CONSITIPATION; Start 08/29 at 00:45; Stop 08/31/17 at 11:08; Status DC Fentanyl Citrate 250 ml @ 5 mls/hr TITRATE PRN IV SEDATION Last administered on 09/11/17 06:14; Start 08/29/17 at 00:45; Stop 09/11/17 at 10:20; Status DC Fentanyl Citrate 250 ml @ As Directed STK-MED ONCE .ROUTE ; Start 08/29/17 at 01:30; Stop 08/29/17 at 04:10; Status DC Propofol 100 ml @ 3 mls/hr TITRATE PRN IV SEDATION Last administered on 07:37; Start 08/29/17 at 04:30; Stop 08/31/17 at 11:08; Status DC Rocuronium [place]kin[place] (Zemuron Inj) 100 mg STAT ONCE IV Last administered on 02:00; Start 08/29/17 at 02:00; Stop 08/29/17 at 04:18; Status DC Atorvastatin Calcium (Lipitor) 40 mg HS PO Last administered on 09/24/17 20: 43; Start 08/29/17 at 21:00; Stop 09/25/17 at 09:29; Status DC Hydrochlorothiazide (Hydrodiuril) 25 mg DAILY PO Last administered on 10:37; Start 08/29/17 at 09:00; Stop 09/08/17 at 11:02; Status DC Metoprolol Tartrate (Lopressor) 100 mg BID PO Last administered on 08/31/17 09:15; Start 08/29/17 at 09:00; Stop 09/11/17 at 10:20; Status DC Clonidine (Catapres) 0.1 mg Q8HR PO Last administered on 09/06/17 04:55; Start 08/29/17 at 06:00; Stop 09/06/17 at 11:33; Status DC Sodium Chloride 1,000 ml @ 999 mls/hr Q1H1M ONCE IV Last administered on 08/29 06:10; Start 08/29/17 at 06:30; Stop 08/29/17 at 07:30; Status DC Magnesium Oxide (Mag-Ox) 800 mg UNSCH PRN PO For Magnesium 1.2 - 1.6 mg/dL; Start 08/29/17 at 13:15; Stop 08/30/17 at 15:34; Status DC Magnesium Sulfate 4 gm/Sodium Chloride 100 ml @ 50 mls/hr UNSCH PRN IV For Magnesium 0.9 - 1.1 mg/dL; Start 08/29/17 at 13:15; Stop 08/30/17 at 15:34; Status DC Magnesium Sulfate 2 gm/Sodium Chloride 100 ml @ 50 mls/hr UNSCH PRN IV For Magnesium 1.2 - 1.6 mg/dL; Start 08/29/17 at 13:15; Stop 08/30/17 at 15:34; Status DC Potassium Chloride 100 ml @ 50 mls/hr Q2H PRN IV For Potassium 2.8 - 3.2 mEq/ L Last administered on 08/29/17t 17:06; Start 08/29/17 at 13:15; Stop at 15:34; Status DC Potassium Chloride 100 ml @ 50 mls/hr Q2H PRN IV For Potassium 3.3 - 3.5 mEq/ L Last administered on 08/30/17t 06:13; Start 08/29/17 at 13:15; Stop at 15:34; Status DC Potassium Chloride 100 ml @ 50 mls/hr Q2H PRN IV For Potassium 2.8 - 3.2 mEq/L ; Start 08/29/17 at 13:15; Stop 08/30/17 at 15:34; Status DC Potassium Chloride 100 ml @ 25 mls/hr UNSCH PRN IV For Potassium 3.3 - 3.5 mEq /L; Start 08/29/17 at 13:15; Stop 08/30/17 at 15:34; Status DC Potassium Phosphate (K-Phos) 2,000 mg Q4H PRN PO For Phosphorus < 2.5 mg/dL; Start 08/29/17 at 13:15; Stop 08/30/17 at 15:34; Status DC Potassium Phosphate (K-Phos) 2,000 mg UNSCH PRN PO/TUBE SEE LABEL COMMENTS; Start 08/29/17 at 13:15; Stop 08/30/17 at 15:34; Status DC Potassium Phosphate 30 mmol/ Sodium Chloride 260 ml @ 42 mls/hr UNSCH PRN IV SEE LABEL COMMENTS; Start 08/29/17 at 13:15; Stop 08/30/17 at 15:34; Status DC Sodium Phosphate 30 mmol/Sodium Chloride 250 ml @ 42 mls/hr UNSCH PRN IV For Phosphorus < 2.5 mg/dL; Start 08/29/17 at 13:15; Stop 08/30/17 at 15:34; Status DC Dextrose (D50w (Vial) Inj) 25 ml UNSCH PRN IV PUSH HYPOGLYCEMIA-SEE COMMENTS; Start 08/30/17 at 08:15; Stop 09/18/17 at 11:53; Status DC Insulin Human Regular (NovoLIN R SUPPLEMENTAL SCALE) 1 Q6HR SQ Last administered on 09/18/17t 05:34; Start 08/30/17 at 12:00; Stop 09/18/17 at 11: 53; Status DC Magnesium Oxide (Mag-Ox) 800 mg UNSCH PRN PO For Magnesium 1.2 - 1.6 mg/dL; Start 08/30/17 at 08:15; Stop 08/31/17 at 13:02; Status DC Magnesium Sulfate 4 gm/Sodium Chloride 100 ml @ 50 mls/hr UNSCH PRN IV For Magnesium 0.9 - 1.1 mg/dL; Start 08/30/17 at 08:15; Stop 08/31/17 at 13:02; Status DC Magnesium Sulfate 2 gm/Sodium Chloride 100 ml @ 50 mls/hr UNSCH PRN IV For Magnesium 1.2 - 1.6 mg/dL; Start 08/30/17 at 08:15; Stop 08/31/17 at 13:02; Status DC Potassium Chloride 100 ml @ 50 mls/hr Q2H PRN IV For Potassium 2.8 - 3.2 mEq/L ; Start 08/30/17 at 08:15; Stop 08/31/17 at 13:02; Status DC Potassium Chloride 100 ml @ 50 mls/hr Q2H PRN IV For Potassium 3.3 - 3.5 mEq/L ; Start 08/30/17 at 08:15; Stop 08/31/17 at 13:02; Status DC Potassium Chloride 100 ml @ 50 mls/hr Q2H PRN IV For Potassium 2.8 - 3.2 mEq/L ; Start 08/30/17 at 08:15; Stop 08/31/17 at 13:02; Status DC Potassium Chloride 100 ml @ 25 mls/hr UNSCH PRN IV For Potassium 3.3 - 3.5 mEq /L; Start 08/30/17 at 08:15; Stop 08/31/17 at 13:02; Status DC Potassium Phosphate (K-Phos) 2,000 mg Q4H PRN PO For Phosphorus < 2.5 mg/dL; Start 08/30/17 at 08:15; Stop 08/31/17 at 13:02; Status DC Potassium Phosphate (K-Phos) 2,000 mg UNSCH PRN PO/TUBE SEE LABEL COMMENTS; Start 08/30/17 at 08:15; Stop 08/31/17 at 13:02; Status DC Potassium Phosphate 30 mmol/ Sodium Chloride 260 ml @ 42 mls/hr UNSCH PRN IV SEE LABEL COMMENTS; Start 08/30/17 at 08:15; Stop 08/31/17 at 13:02; Status DC Sodium Phosphate 30 mmol/Sodium Chloride 250 ml @ 42 mls/hr UNSCH PRN IV For Phosphorus < 2.5 mg/dL; Start 08/30/17 at 08:15; Stop 08/31/17 at 13:02; Status DC Hydralazine HCl (Apresoline Inj) 10 mg Q30M PRN IV PUSH sbp > 160 Last administered on 09/19/17 09:08; Start 08/30/17 at 08:15 Oxycodone HCl (Roxicodone Intensol Liq) 5 mg Q4H PO Last administered on 09:16; Start 08/30/17 at 09:00; Stop 08/31/17 at 11:07; Status DC Dexmedetomidine HCl 50 ml @ 29.9 mls/hr TITRATE IV ; Start 08/30/17 at 14:15; Stop 08/30/17 at 14:46; Status DC Dexmedetomidine HCl 200 mcg/ Sodium Chloride 50 ml @ 29.9 mls/hr TITRATE IV Last administered on 08/30/17 15:27; Start 08/30/17 at 15:00; Stop 08/30/17 at 16:42; Status DC Dexmedetomidine HCl 1000 mcg/ Sodium Chloride 250 ml @ 29.9 mls/hr TITRATE IV Last administered on 08/30/17 17:58; Start 08/30/17 at 16:45; Stop 08/31/17 at 06:14; Status DC Propofol 100 ml @ 14.352 mls/ hr TITRATE PRN IV SEDATION Last administered on 09/10/17 09:59; Start 08/31/17 at 00:30; Stop 09/11/17 at 10:20; Status DC Piperacillin Sod/ Tazobactam Sod 100 ml @ 200 mls/hr Q6HR IV Last administered on 09/01/17 13:02; Start 08/31/17 at 06:00; Stop 09/01/17 at 14 :52; Status DC Morphine Sulfate (Morphine Inj) 10 mg ONCE ONCE IV PUSH Last administered on 08/31/17 06:31; Start 08/31/17 at 06:30; Stop 08/31/17 at 06:31; Status DC Propranolol HCl (Inderal) 10 mg ONCE ONCE PO Last administered on 08/31/17 06:30; Start 08/31/17 at 06:15; Stop 08/31/17 at 06:20; Status DC Oxycodone HCl (Roxicodone Intensol Liq) 10 mg Q4H PO Last administered on 09:17; Start 08/31/17 at 13:00; Stop 09/11/17 at 10:20; Status DC Propranolol HCl (Inderal) 10 mg Q6HR PO Last administered on 09/11/17 05:37; Start 08/31/17 at 12:00; Stop 09/11/17 at 10:20; Status DC Quetiapine Fumarate (SEROquel) 100 mg Q8HR PO Last administered on 09/11/17 05 :37; Start 08/31/17 at 11:00; Stop 09/11/17 at 10:20; Status DC Haloperidol Lactate (Haldol Inj) 5 mg Q4H PRN IV agitation Last administered on 09/12/17 23:04; Start 08/31/17 at 11:00; Stop 09/25/17 at 09:30; Status DC Magnesium Sulfate/ Dextrose 100 ml @ 100 mls/hr Q1H IV Last administered on 12:22; Start 08/31/17 at 12:00; Stop 08/31/17 at 13:00; Status DC Bisacodyl (Dulcolax Supp) 10 mg DAILY RECTAL Last administered on 08/31/17 11 :58; Start 08/31/17 at 12:00; Stop 09/25/17 at 09:30; Status DC Polyethylene Glycol (Miralax) 17 gm BID PO Last administered on 09/20/17 09: 26; Start 08/31/17 at 12:00; Stop 09/25/17 at 09:29; Status DC Lactulose (Lactulose Liq) 30 ml BID PO Last administered on 09/04/17 19:57; Start 08/31/17 at 12:00; Stop 09/25/17 at 09:30; Status DC Senna/Docusate Sodium (Melina-Colace) 1 tab BID PO Last administered on 09:14; Start 08/31/17 at 12:00; Stop 09/25/17 at 09:29; Status DC Magnesium Citrate (Citroma Liq) 300 ml ONCE ONCE PO Last administered on 08/31 11:57; Start 08/31/17 at 12:00; Stop 08/31/17 at 12:01; Status DC Rocuronium [place] (Zemuron Inj) 50 mg STK-MED ONCE .ROUTE Last administered on 08/31/17 14:36; Start 08/31/17 at 14:36; Stop 08/31/17 at 14:37; Status DC Calcium Acetate (Phoslo) 667 mg TID PO Last administered on 09/08/17 10:38; Start 08/31/17 at 18:00; Stop 09/08/17 at 11:02; Status DC Rocuronium [place] (Zemuron Inj) 50 mg STAT ONCE IV Last administered on 08/31 16:00; Start 08/31/17 at 16:00; Stop 08/31/17 at 16:01; Status DC Lactated Ringer's 1,000 ml @ 999 mls/hr BOLUS ONCE IV Last administered on 21:12; Start 08/31/17 at 20:45; Stop 08/31/17 at 21:45; Status DC Piperacillin Sod/ Tazobactam Sod 50 ml @ 100 mls/hr Q6HR IV Last administered on 09/02/17 05:59; Start 09/01/17 at 18:00; Stop 09/02/17 at 10:45; Status DC Piperacillin Sod/ Tazobactam Sod 50 ml @ 100 mls/hr Q8HR IV Last administered on 09/11/17 05:37; Start 09/02/17 at 14:00; Stop 09/11/17 at 10:20; Status DC Nicardipine HCl 50 mg/Sodium Chloride 500 ml @ 50 mls/hr TITRATE PRN IV BLOOD PRESSURE MANAGEMENT Last administered on 09/05/17 22:00; Start 09/02/17 at 21 :15; Stop 09/11/17 at 10:25; Status DC Rocuronium [place] (Zemuron Inj) 50 mg STK-MED ONCE .ROUTE Last administered on 09/03/17 09:22; Start 09/03/17 at 09:22; Stop 09/03/17 at 09:23; Status DC Rocuronium [place] (Zemuron Inj) 50 mg NOW ONCE IV PUSH Last administered on 09/03/17 10:13; Start 09/03/17 at 10:15; Stop 09/03/17 at 10:16; Status DC Rocuronium [place] (Zemuron Inj) 50 mg NOW ONCE IV PUSH Last administered on 09/03/17 11:00; Start 09/03/17 at 11:00; Stop 09/03/17 at 11:01; Status DC Potassium Chloride 30 meq/ Sodium Chloride 115 ml @ 38.333 mls/ hr ONCE ONCE IV-CENTRAL Last administered on 09/03/17 13:36; Start 09/03/17 at 14:00; Stop 09/03/17 at 16:59; Status DC Dexamethasone Sodium Phosphate (Decadron Inj) 6 mg Q6H IV PUSH Last administered on 09/05/17 06:09; Start 09/04/17 at 13:00; Stop 09/05/17 at 11 :55; Status DC Diphenhydramine HCl (Benadryl Inj) 50 mg Q6H IV Last administered on 08:27; Start 09/04/17 at 13:00; Stop 09/07/17 at 12:59; Status DC Lorazepam (Ativan) 2 mg Q8H PO Last administered on 09/07/17 14:35; Start at 15:00; Stop 09/07/17 at 15:18; Status DC Acetaminophen 0 ml @ As Directed STK-MED ONCE IV ; Start 09/05/17 at 07:52; Stop 09/05/17 at 07:53; Status DC Insulin Detemir (Levemir Inj) 10 units Q12H SQ Last administered on 09/11/17 09:16; Start 09/05/17 at 10:00; Stop 09/11/17 at 10:21; Status DC Dexamethasone Sodium Phosphate (Decadron Inj) 4 mg Q12H IV PUSH Last administered on 09/07/17 05:28; Start 09/05/17 at 18:00; Stop 09/07/17 at 17 :59; Status DC Albuterol/ Ipratropium (Duoneb Neb) 1 ampule Q6HR NEB NEB Last administered on 09/08/17 11:05; Start 09/05/17 at 12:00; Stop 09/08/17 at 12:59; Status DC Rocuronium [place] (Zemuron Inj) 50 mg BOLUS STAT IV Last administered on 16:47; Start 09/05/17 at 16:37; Stop 09/05/17 at 16:38; Status DC Fluticasone Propionate (Flonase Tae Spr) 2 spray DAILY EACH NARE Last administered on 10/22/17at 09:52; Start 09/05/17 at 17:00 Lactated Ringer's 1,000 ml @ 30 mls/hr Q24H PRN IV SEE LABEL COMMENTS; Start 09/05/17 at 23:00; Stop 09/08/17 at 22:59; Status DC Sodium Chloride 500 ml @ 30 mls/hr [id number] PRN IV SEE LABEL COMMENTS; Start at 23:00; Stop 09/08/17 at 22:59; Status DC Metoprolol Tartrate (Lopressor) 25 mg TREE DOCTOR PRN PO SEE LABEL COMMENTS; Start 09/05/17 at 23:00; Stop 09/08/17 at 22:59; Status DC Povidone Iodine (Betadine 5% Antisepsis Kit) 1 applic TREE DOCTOR PRN EACH NARE SEE LABEL COMMENTS; Start 09/05/17 at 23:00; Stop 09/08/17 at 22:59; Status DC Chlorhexidine Gluconate (Chlorhexidine 2% Cloth) 3 pack TREE DOCTOR PRN TOPICAL SEE LABEL COMMENTS; Start 09/05/17 at 23:00; Stop 09/08/17 at 22:59; Status DC Insulin Human Regular (NovoLIN R INJ) See Protocol Table ... TREE DOCTOR PRN SQ SEE PROTOCOL TABLE; Start 09/05/17 at 23:00; Stop 09/08/17 at 22:59; Status DC Potassium Chloride 100 ml @ 50 mls/hr ONCE ONCE IV Last administered on 09/06 10:16; Start 09/06/17 at 09:30; Stop 09/06/17 at 11:29; Status DC Clonidine (Catapres) 0.3 mg Q8HR PO Last administered on 09/25/17 05:27; Start 09/06/17 at 14:00; Stop 09/25/17 at 09:29; Status DC Clonidine (Catapres) 0.3 mg ONCE ONCE PO Last administered on 09/06/17 11:55 ; Start 09/06/17 at 11:45; Stop 09/06/17 at 11:46; Status DC Heparin Sodium (Porcine) (Heparin Inj) 5,000 units Q12HR SQ ; Start 09/06/17 at 21:00; Stop 09/06/17 at 21:00; Status DC Gelatin (Gelfoam 12 Mm/7 Mm Top) 1 foam STK-MED ONCE .ROUTE Last administered on 09/07/17 09:47; Start 09/07/17 at 09:47; Stop 09/07/17 at 09:48; Status DC Silver Nitrate/ Potassium Nitrate (Silver Nitrate Applicators) 1 appl ONCE ONCE TOPICAL Last administered on 09/07/17 10:15; Start 09/07/17 at 10:15; Stop 09/07/17 at 10:47; Status DC Potassium Chloride 100 ml @ 50 mls/hr Q2H IV Last administered on 09/07/17 12:45; Start 09/07/17 at 10:45; Stop 09/07/17 at 14:44; Status DC Desmopressin Acetate (Ddavp Tae Spr) 1 spray ONCE ONCE EACH NARE Last administered on 09/07/17 15:00; Start 09/07/17 at 15:00; Stop 09/07/17 at 15 :01; Status DC Propofol (Diprivan 200 Mg/20 ml Inj) 200 mg STK-MED ONCE IV ; Start 09/06/17 at 12:00; Stop 09/07/17 at 15:10; Status DC Lorazepam (Ativan) 1 mg Q12H PO Last administered on 09/09/17 20:27; Start 09/07/17 at 19:00; Stop 09/11/17 at 10:25; Status DC Gelatin (Gelfoam 12 Mm/7 Mm Top) 1 foam Q2HR PRN TOPICAL if still bleeding from peg Last administered on 09/08/17 08:00; Start 09/07/17 at 19:45 Potassium Chloride 100 ml @ 50 mls/hr Q2H IV Last administered on 09/08/17 11:59; Start 09/08/17 at 09:00; Stop 09/08/17 at 12:59; Status DC Potassium Chloride (KCl) 40 meq ONCE ONCE PO ; Start 09/08/17 at 09:00; Stop 09/08/17 at 12:05; Status DC Potassium Chloride (KCl Powder) 40 meq ONCE ONCE PEG Last administered on 12:15; Start 09/08/17 at 12:15; Stop 09/08/17 at 12:21; Status DC Midazolam HCl (Versed Inj) 10 mg ONCE ONCE IV PUSH ; Start 09/08/17 at 13:00; Stop 09/08/17 at 13:41; Status DC Sodium Chloride 1,000 ml @ 999 mls/hr BOLUS ONCE IV Last administered on 13:00; Start 09/08/17 at 13:00; Stop 09/08/17 at 14:00; Status DC Rocuronium [place] (Zemuron Inj) 100 mg BOLUS ONCE IV ; Start 09/08/17 at 13: 00; Stop 09/08/17 at 13:44; Status DC Albuterol/ Ipratropium (Duoneb Neb) 1 ampule Q6HR NEB NEB Last administered on 09/12/17 15:34; Start 09/08/17 at 16:00; Stop 09/12/17 at 15:59; Status DC Midazolam HCl (Versed Inj) 10 mg STK-MED ONCE .ROUTE Last administered on 09/08 13:39; Start 09/08/17 at 13:12; Stop 09/08/17 at 13:13; Status DC Rocuronium [place] (Zemuron Inj) 100 mg STK-MED ONCE .ROUTE Last administered on 09/08/17 13:12; Start 09/08/17 at 13:12; Stop 09/08/17 at 13:13; Status DC Midazolam HCl (Versed Inj) 5 mg STK-MED ONCE .ROUTE Last administered on 13:52; Start 09/08/17 at 13:44; Stop 09/08/17 at 13:45; Status DC Midazolam HCl (Versed Inj) 5 mg STK-MED ONCE .ROUTE Last administered on 13:52; Start 09/08/17 at 13:49; Stop 09/08/17 at 13:50; Status DC Potassium Bicarb/ Potassium Chloride (K-Lyte Cl Eff) 25 meq ONCE ONCE PO Last administered on 09/09/17 11:15; Start 09/09/17 at 11:00; Stop 09/09/17 at 11:03; Status DC Metoclopramide HCl (Reglan Inj) 5 mg Q8HR IV PUSH Last administered on 22:55; Start 09/09/17 at 22:00; Stop 09/11/17 at 10:25; Status DC Potassium Chloride 100 ml @ 50 mls/hr Q2H IV Last administered on 09/10/17 16 :01; Start 09/10/17 at 13:00; Stop 09/10/17 at 16:59; Status DC Insulin Detemir (Levemir Inj) 12 units Q12H SQ Last administered on 09/17/17 10:42; Start 09/11/17 at 22:00; Stop 09/17/17 at 15:27; Status DC Oxycodone HCl (Roxicodone Intensol Liq) 5 mg Q4H PO Last administered on 08:28; Start 09/11/17 at 13:00; Stop 09/17/17 at 12:47; Status DC Propranolol HCl (Inderal) 30 mg Q6HR PO Last administered on 09/17/17 04:23; Start 09/11/17 at 12:00; Stop 09/17/17 at 12:47; Status DC Quetiapine Fumarate (SEROquel) 50 mg Q8HR PO Last administered on 09/12/17 21: 37; Start 09/11/17 at 14:00; Stop 09/25/17 at 09:29; Status DC Modafinil (Provigil) 200 mg DAILY PO Last administered on 09/12/17 09:07; Start 09/11/17 at 12:00; Stop 09/25/17 at 09:30; Status DC Water (Free Water) VOLUME: 200 ML Q4HR G-TUBE Last administered on 09/18/17 08 :00; Start 09/11/17 at 12:00; Stop 09/18/17 at 11:53; Status DC Famotidine (Pepcid) 10 mg BID NG Last administered on 09/23/17 20:42; Start 09/11/17 at 21:00; Stop 09/24/17 at 09:10; Status DC Heparin Sodium (Porcine) (Heparin Inj) 5,000 units Q12HR SQ Last administered on 09/28/17 08:20; Start 09/11/17 at 21:00; Status Future Hold Lorazepam (Ativan Inj) 1 mg ONCE ONCE IV PUSH Last administered on 09/13/17 02:57; Start 09/13/17 at 02:45; Stop 09/13/17 at 02:46; Status DC Pharmacy Profile Note 0 ml @ 0 mls/hr UNSCH OTHER ; Start 09/13/17 at 02:45; Stop 09/17/17 at 10:11; Status DC Piperacillin Sod/ Tazobactam Sod 50 ml @ 100 mls/hr Q6H IV Last administered on 09/19/17 20:26; Start 09/13/17 at 03:00; Stop 09/19/17 at 23:00; Status DC Nicardipine HCl 25 mg/Sodium Chloride 250 ml @ 50 mls/hr TITRATE PRN IV Blood pressure management Last administered on 09/17/17 04:57; Start 09/13/17 at 02: 45; Stop 09/17/17 at 12:47; Status DC Dantrolene Sodium (Dantrium Inj) 70 mg ONCE ONCE IV Last administered on 03:55; Start 09/13/17 at 03:00; Stop 09/13/17 at 03:01; Status DC Vancomycin HCl 2000 mg/Sodium Chloride 520 ml @ 250 mls/hr ONCE ONCE IV Last administered on 09/13/17 05:52; Start 09/13/17 at 04:00; Stop 09/13/17 at 06:04 ; Status DC Vancomycin HCl 2500 mg/Sodium Chloride 525 ml @ 250 mls/hr ONCE ONCE IV Last administered on 09/14/17 12:29; Start 09/14/17 at 12:00; Stop 09/14/17 at 14:05 ; Status DC Potassium Chloride 100 ml @ 50 mls/hr Q2H IV Last administered on 09/15/17 10 :22; Start 09/15/17 at 08:15; Stop 09/15/17 at 12:14; Status DC Dexamethasone Sodium Phosphate (Decadron Inj) 6 mg Q6HR IV PUSH Last administered on 09/17/17 04:24; Start 09/15/17 at 14:15; Stop 09/17/17 at 12:35 ; Status DC Diphenhydramine HCl (Benadryl Inj) 25 mg Q6H IV PUSH Last administered on 08:06; Start 09/15/17 at 15:00; Stop 09/18/17 at 14:59; Status DC Lidocaine HCl (Lidocaine Pf 2% Neb) 1 ml Q6HR NEB PRN NEB cough/bronchial irritation; Start 09/16/17 at 11:30 Vancomycin HCl 1500 mg/Sodium Chloride 515 ml @ 257.5 mls/ hr ONCE ONCE IV Last administered on 09/16/17 17:07; Start 09/16/17 at 15:00; Stop 09/16/17 at 16:59; Status DC Insulin Human Regular (NovoLIN R SUPPLEMENTAL SCALE) 5 ONCE ONCE SQ Last administered on 09/16/17 18:14; Start 09/16/17 at 18:00; Stop 09/16/17 at 18:01 ; Status DC Labetalol HCl (Trandate) 300 mg Q8HR PEG Last administered on 09/25/17 05:26 ; Start 09/17/17 at 14:00; Stop 09/25/17 at 09:31; Status DC Labetalol HCl (Trandate) 300 mg NOW ONCE PEG Last administered on 09/17/17 04 :23; Start 09/17/17 at 04:15; Stop 09/17/17 at 04:16; Status DC Dexamethasone Sodium Phosphate (Decadron Inj) 6 mg Q12HR IV PUSH Last administered on 09/20/17 09:26; Start 09/17/17 at 21:00; Stop 09/20/17 at 20: 59; Status DC Albuterol/ Ipratropium (Duoneb Neb) 1 ampule Q6HR NEB INH Last administered on 09/21/17 08:25; Start 09/17/17 at 16:00; Stop 09/21/17 at 15:59; Status DC Oxycodone HCl (Roxicodone Intensol Liq) 5 mg Q6H PO Last administered on 08:05; Start 09/17/17 at 15:00; Stop 09/18/17 at 12:04; Status DC Propranolol HCl (Inderal) 40 mg Q6HR PO Last administered on 09/25/17 05:26; Start 09/17/17 at 18:00; Stop 09/25/17 at 09:29; Status DC Insulin Detemir (Levemir Inj) 15 units Q12H SQ Last administered on 09/18/17 09:49; Start 09/17/17 at 22:00; Stop 09/18/17 at 11:53; Status DC Water (Free Water) 300 ml Q4HR G-TUBE Last administered on 10/23/17at 11:35; Start 09/18/17 at 12:00 Insulin Detemir (Levemir Inj) 18 units Q12H SQ Last administered on 09/18/17 20:09; Start 09/18/17 at 22:00; Stop 09/19/17 at 08:52; Status DC Dextrose (D50w (Vial) Inj) 25 ml UNSCH PRN IV PUSH HYPOGLYCEMIA-SEE COMMENTS; Start 09/18/17 at 12:00 Insulin Human Regular (NovoLIN R SUPPLEMENTAL SCALE) 1 Q4HR SQ Last administered on 09/25/17 04:09; Start 09/18/17 at 12:00; Stop 09/25/17 at 09: 28; Status DC Oxycodone HCl (Roxicodone Intensol Liq) 5 mg Q6H PRN PO pain 6-10 Last administered on 09/18/17 22:56; Start 09/18/17 at 15:00; Stop 09/25/17 at 09: 29; Status DC Hydralazine HCl (Apresoline) 50 mg Q8HR PO Last administered on 09/19/17 05: 12; Start 09/18/17 at 14:00; Stop 09/19/17 at 08:52; Status DC Insulin Detemir (Levemir Inj) 20 units Q12H SQ Last administered on 10/23/17 09:24; Start 09/19/17 at 10:00 Hydralazine HCl (Apresoline) 100 mg Q8HR PO Last administered on 09/25/17 05: 31; Start 09/19/17 at 14:00; Stop 09/25/17 at 09:29; Status DC Dextrose 1,000 ml @ 42 mls/hr [id number] IV Last administered on 09/20/17 09:25 ; Start 09/19/17 at 08:45; Stop 09/20/17 at 11:39; Status DC Sodium Chloride 38.5 meq/Sterile Water 1,009.625 ml @ 42 mls/hr Q24H IV Last administered on 09/25/17 06:01; Start 09/20/17 at 13:00; Stop 09/25/17 at 09 :24; Status DC Acetaminophen 0 ml @ As Directed STK-MED ONCE IV ; Start 09/21/17 at 09:42; Stop 09/21/17 at 09:43; Status DC Hydromorphone HCl (Dilaudid Pf Inj) 2 mg STK-MED ONCE .ROUTE ; Start 09/21/17 at 09:43; Stop 09/21/17 at 09:44; Status DC Sodium Polystyrene Sulfonate (Kayexalate Liq) 30 gm Q2HR PO Last administered on 09/21/17 19:53; Start 09/21/17 at 16:00; Stop 09/21/17 at 21:00; Status DC Famotidine (Pepcid) 20 mg BID NG Last administered on 10/23/17 09:24; Start 09/24/17 at 09:30 Morphine Sulfate (Morphine Inj) 2 mg Q2H PRN IV PUSH breakthru pain; Start at 16:30 Metoprolol Tartrate (Lopressor) 25 mg Q8H PO Last administered on 09/25/17 05 :25; Start 09/25/17 at 05:00; Stop 09/25/17 at 09:29; Status DC Potassium Bicarb/ Potassium Chloride (K-Lyte Cl Eff) 50 meq ONCE ONCE PO Last administered on 09/25/17 05:25; Start 09/25/17 at 04:30; Stop 09/25/17 at 04:31; Status DC Sodium Chloride 1,000 ml @ 42 mls/hr [id number] IV ; Start 09/25/17 at 10:00; Stop 09/25/17 at 10:00; Status DC Glucagon (Glucagon Inj) 1 mg UNSCH PRN OTHER HYPOGLYCEMIA-SEE COMMENTS; Start 09/25/17 at 09:30 Insulin Aspart (NovoLOG SUPPLEMENTAL SCALE) 1 Q6H SQ Last administered on 23:53; Start 09/25/17 at 12:00 Acetaminophen (Tylenol) 650 mg Q6H PRN G-TUBE PAIN 1-5 AND/OR FEVER >101F Last administered on 10/15/17 23:34; Start 09/25/17 at 12:45 Amlodipine Besylate (Norvasc) 10 mg DAILY G-TUBE Last administered on 09:24; Start 09/26/17 at 09:00 Atorvastatin Calcium (Lipitor) 40 mg HS DOBHOFF Last administered on 10/22/17 20:37; Start 09/25/17 at 21:00 Clonidine (Catapres) 0.3 mg Q8HR G-TUBE Last administered on 10/23/17 05:58; Start 09/25/17 at 14:00 Senna/Docusate Sodium (Melina-Colace) 1 tab BID G-TUBE Last administered on 09:09; Start 09/25/17 at 21:00 Hydralazine HCl (Apresoline) 100 mg Q8HR G-TUBE Last administered on 10/23/17 05:58; Start 09/25/17 at 14:00 Metoprolol Tartrate (Lopressor) 25 mg Q8H G-TUBE ; Start 09/25/17 at 13:00; Stop 09/25/17 at 13:00; Status DC Oxycodone HCl (Roxicodone Intensol Liq) 5 mg Q6H PRN G-TUBE pain 6-10 Last administered on 10/22/17 22:37; Start 09/25/17 at 15:00 Polyethylene Glycol (Miralax) 17 gm BID G-TUBE Last administered on 10/19/17 09 :09; Start 09/25/17 at 21:00 Propranolol HCl (Inderal) 40 mg Q6HR G-TUBE Last administered on 10/23/17 11: 57; Start 09/25/17 at 12:00 Quetiapine Fumarate (SEROquel) 50 mg Q8HR G-TUBE Last administered on 05:58; Start 09/25/17 at 14:00 Albuterol Sulfate (Albuterol Neb) 2.5 mg Q2HR NEB PRN NEB sob/wheeze Last administered on 10/11/17 17:07; Start 09/25/17 at 13:30 Cefuroxime Axetil (Ceftin) 500 mg Q12HR PO Last administered on 10/03/17t 09: 03; Start 09/26/17 at 11:15; Stop 10/03/17 at 11:14; Status DC Sodium Chloride 250 ml @ 15 mls/hr ONCE ONCE IV ; Start 09/28/17 at 10:15; Stop 09/28/17 at 16:53; Status DC Chlorhexidine Gluconate (Peridex 0.12% Liq) 15 ml TID SWISH-SPIT Last administered on 10/22/17 18:02; Start 10/11/17 at 18:00 Methylprednisolone Sodium Succinate (SoluMEDROL INJ) 125 mg ONCE ONCE IV PUSH Last administered on 10/20/17 13:09; Start 10/20/17 at 12:15; Stop 10/20/17 at 12:16; Status DC A/P Problem List: (1) Intracranial hemorrhage ICD Code: I62.9 - Nontraumatic intracranial hemorrhage, unspecified Status: Acute Assessment and Plan Assessment and Plan A/P Acute encephalopathy - improving. Left Thalamic Hemorrhage Intracerebral Hemorrhage - Repeat CT of the head showed improving bleed - Neurosurgery follow-up appreciated; stable for dc to SNF per neurosurgery. - Continue rehabilitation efforts with PT, OT, speech - On Seroquel to control agitated delirium. Roxicodone as needed for pain Anemia likely due to chronic disease. H/H fairly stable. will monitor periodically. Healthcare associated pneumonia finished the course of antibiotic. UTI: treated. Respiratory failure s/p trach - Tolerating T piece - CT of the chest 09/13/17 -LLL infiltrate. Repeat chest x-ray on 09/26/17 shows stable left lower lobe consolidation - continue neb treatment. -Patient had angioedema, source unclear and was seen by ENT. He was treated with steroids. Per ENT, expect slow improvement. This is resolving. -Appreciate pulmonology following for trach management Respiratory failure s/p trach -Did not tolerate trach 10/14/17, -trial of trach capping .... Will give Solu-Medrol 125 mg IV 1 now and attempt another trial this afternoon 10/20/17 HAS PASSY DIANA VALVE IN PLACE AND USING IT WEL Hyperglycemia - persistent. - Continue Levemir 20 units SQ q12h - Continue sliding scale insulin with Accu-Cheks. - hemoglobin A1c 9.1. Hypertension - Intermittent hypertension now well controlled - Continue clonidine, amlodipine and propranolol - Continue hydralazine. Nutrition status: - Status post PEG tube continue tube feeds - Having bowel movements - Continue Free water Acute kidney injury, most likely has CKD per nephrology: Renal function stabilized. - monitor renal function periodically. Physical deconditioning/right sided hemiparesis - OOB to stretcher chair daily - PT/OT following AND SPEECH RIGHT SIDE NOW HAS MORE MOVEMENT IN UE AND LE ON THE RIGHT PROPH: - SCD's. Pepcid for GI prophylaxis Discharge Planning dc planning to SNF VS INPATIENT REHAB in PROCESS Discharge Planning Await case management ability to find SNF VS INPATIENT REHAB FOR AGGRESSIVE PT AND OT AND Kalen Webb DO Oct 23, 2017 12:12
--- NOTE | 2017-10-23 14:04 | HHI.PR ---
Subjective Remarks Patient is lying in bed in NAD. Afebrile. Objective Vital Signs Vital Signs Date Time Temp Pulse Resp B/P (MAP) Pulse Ox O2 Delivery O2 Flow Rate FiO2 10/23/17 12:10 97.8 71 20 139/81 (100) 95 10/23/17 10:46 94 Nasal Cannula 4.00 10/23/17 09:45 Nasal Cannula 4.00 10/23/17 09:30 Blow By 6.00 T-Piece Humidified 10/23/17 08:12 97.6 75 20 117/71 (86) 98 10/23/17 08:00 70 10/23/17 04:06 73 10/23/17 04:00 97.7 72 20 137/78 (97) 96 10/23/17 00:16 125 10/23/17 00:00 97.6 77 20 124/69 (87) 97 10/22/17 20:07 83 10/22/17 20:00 T-Piece 6.00 28 10/22/17 20:00 97.9 81 20 143/81 (101) 98 10/22/17 18:25 97 Nasal Cannula 2.00 10/22/17 16:11 98.4 79 20 144/76 (98) 97 I/O 10/22/17 10/22/17 10/22/17 10/23/17 10/23/17 10/23/17 07:00 15:00 23:00 07:00 15:00 23:00 Intake Total 0 ml 600 ml Output Total 400 ml 1500 ml 650 ml Balance -400 ml -1500 ml -650 ml 600 ml Intake Oral 0 ml Other 600 ml Output Urine Total 400 ml 1500 ml 650 ml Stool Total 0 ml # Bowel Movements 0 1 Other Results Last Impressions Chest X-Ray 09/26/17 0000 Signed Impressions: Service Date/Time: Tuesday, September 26, 2017 09:45 - CONCLUSION: Stable examination with left basilar consolidation/effusion. Reyes Guzman MD Maxillofacial CT 09/16/17 0000 Signed Impressions: Service Date/Time: September 01:03 - CONCLUSION: 1. Evidence of acute pansinusitis. 2. Opacification of multiple bilateral mastoid air cells most characteristic of mastoiditis. 3. Mildly prominent cervical chain nodes which may be reactive. Angelo Conn MD Upper Extremity Ultrasound 09/15/17 0000 Signed Impressions: Service Date/Time: Friday, September 15, 2017 17:14 - CONCLUSION: Occlusive thrombus within the left cephalic vein and nonocclusive thrombus within the right cephalic vein. Ric Jack MD Lower Extremity Ultrasound 09/15/17 0000 Signed Impressions: Service Date/Time: Friday, September 15, 2017 16:58 - CONCLUSION: No evidence of DVT within the lower extremities. Ric Jack MD Head CT 09/13/17 0800 Signed Impressions: Service Date/Time: Wednesday, September 13, 2017 09:17 - CONCLUSION: 1. Resolving left basal ganglia hematoma Natan Lagos MD Chest CT 09/13/17 0000 Signed Impressions: Service Date/Time: Wednesday, September 13, 2017 09:28 - CONCLUSION: 1. Bibasilar and left lingular dependent atelectatic changes. Lungs are otherwise clear. 2. Tracheostomy tube with the tip probably positioned above the connie. 3. Compensated cardiomegaly. Reyes Guzman MD Abdomen/Pelvis CT 09/13/17 0000 Signed Impressions: Service Date/Time: Wednesday, September 13, 2017 09:28 - CONCLUSION: 1. There is some stranding in the retroperitoneal perivascular tissues around the distal aorta extending into the bifurcation with a regional borderline lymph nodes. Findings are characteristic of a nonspecific inflammatory process. Findings could represent early retroperitoneal fibrosis.. 2. Urinary bladder is decompressed with some mural thickening in pericystic inflammatory changes possibly representing a chronic cystitis. Nondependent air could be associated with a recent catheterization/instrumentation. 3. Small umbilical and right inguinal hernias only contain fat. 4. Bilateral dependent basilar and left lingular atelectatic changes. Heart size is borderline prominent. 5. Otherwise , bowel is intact without obstruction to explain abdominal distention Reyes Guzman MD Abdomen X-Ray 09/10/17 0600 Signed Impressions: Service Date/Time: Sunday, September 10, 2017 03:56 - CONCLUSION: No significant abnormality is identified. There is mild distention of the colon but there are no findings to suggest bowel obstruction or significant ileus. Ignacio Underwood MD Liver Ultrasound 09/07/17 0000 Signed Impressions: Service Date/Time: Thursday, September 07, 2017 12:37 - CONCLUSION: 1. Unremarkable sonographic appearance of the liver. No evidence for hepatic volume loss or intrahepatic ductal dilatation. 2. No sonographic evidence for cholelithiasis or acute cholecystitis. 3. Mild increased right renal echogenicity may reflect medical renal disease. 4. Small bilateral pleural effusions. 5. Pancreas and inferior pole of the right kidney are obscured by bowel gas and therefore not evaluated. Darrell Robles MD Renal Ultrasound 08/31/17 0000 Signed Impressions: Service Date/Time: Thursday, August 31, 2017 17:42 - CONCLUSION: 1. No evidence of hydronephrosis on either side. 2. Solitary linear echogenic focus in the upper pole parenchyma of the right kidney has similar features to prior examination in January 2017 and possibly represents a calcification. David Snell MD Neck CTA 08/28/177 Signed Impressions: Service Date/Time: Tuesday, August 29, 2017 00:13 - CONCLUSION: Negative carotid CTA. David Snell MD Head CTA 08/28/177 Signed Impressions: Service Date/Time: Tuesday, August 29, 2017 00:13 - CONCLUSION: 1. No evidence of vessel truncation or aneurysm. 2. No abnormal vessels in the region of the large left thalamic hemorrhage. David Snell MD Objective Remarks GENERAL: Patient is lying in bed in NAD SKIN: Warm and dry. HEAD: Normocephalic. EYES: No scleral icterus. No injection or drainage. NECK: Supple, trachea midline. No JVD or lymphadenopathy. CARDIOVASCULAR: Regular rate and rhythm without murmurs, gallops, or rubs. RESPIRATORY: Breath sounds equal bilaterally. No accessory muscle use. GASTROINTESTINAL: Abdomen soft, non-tender, nondistended. MUSCULOSKELETAL: No cyanosis, or edema. BACK: Nontender without obvious deformity. No CVA tenderness. Neuro: Awake and alert A/P Assessment and Plan Resp failure S/P Trach HTN s/p ICH, right side flaccid Pneumonia PLAN Continue with oxygen keep sat >92% Bronchodilators Pulm toilet, trach care Off abx, monitor for signs of infections ( fever, WBC) Continue with tube feeds via PEG tube check cxr in am Continue treatment plan. Jacqui Briseno MD Oct 23, 2017 14:04
[2017-10-23] MEDS: RESP: ALBUTEROL 2.5 MG/IPRATROPIUM 0.5 MG NEB (SCH) NEB ×2 (16:00→20:18)
[2017-10-23] MEDS: ATORVASTATIN 40 MG TAB DOBHOFF SCH (21:29)
[2017-10-24] VITALS (11 sets, daily range): BP systolic 119–147; BP diastolic 68–77; PULSE 72–83; RESP 17–21; TEMP 97.8–98.9; O2SAT 94–100
[2017-10-24] MEDS: INSULIN ASPART SUPPLEMENTAL SCALE SQ SCH ×4 (01:15→18:00)
[2017-10-24] MEDS: RESP: ALBUTEROL 2.5 MG/IPRATROPIUM 0.5 MG NEB (SCH) NEB ×4 (04:00→21:55)
[2017-10-24] MEDS: FREE WATER G-TUBE SCH ×5 (04:00→20:00)
[2017-10-24] MEDS: CHLORHEXIDINE GLUCONATE 2 % 1 PACK (2 CLOTHS) TOP SCH (04:00)
--- NOTE | 2017-10-24 05:52 | RADRPT ---
EXAM DATE/TIME: 10/24/2017 04:21 [facility] COMPARISON: CHEST SINGLE AP, September 26, 2017, 9:45. INDICATIONS : Chronic respiratory failure. MEDICAL HISTORY : Stroke. CVA. Migraine. Hypertension. GERD SURGICAL HISTORY : ENCOUNTER: Subsequent ACUITY: 2 months PAIN SCORE: Non-responsive. LOCATION: Bilateral chest FINDINGS: Tracheostomy tube remains in place. No pneumothorax. Right lung remains clear. There continues to be a mild infiltrate in the left lung base. Heart size is enlarged but stable. No definite pleural effus ions. No new or significant changes. CONCLUSION: No significant interval change. Iain Fragoso MD on October 24, 2017 at 5:49 Board Certified Radiologist. This report was verified electronically.
[2017-10-24] MEDS: hydrALAZINE HCL 100 MG TAB G-TUBE SCH ×3 (06:04→22:00)
[2017-10-24] MEDS: PROPRANOLOL HCL 40 MG TAB G-TUBE SCH ×4 (06:04→16:51)
[2017-10-24] MEDS: cloNIDine HCL 0.3 MG TAB G-TUBE SCH ×3 (06:04→22:00)
[2017-10-24] MEDS: QUEtiapine FUMARATE 25 MG TAB G-TUBE SCH ×3 (06:04→20:43)
[2017-10-24 08:10] LABS: AUTOMATED NEUTROPHIL # 4.5 TH/MM3 (1.8-7.7); BASOPHIL % 0.3 % (0.0-2.0); EOSINOPHIL # 0.1 TH/MM3 (0-0.4); EOSINOPHIL % 1.4 % (0.0-4.0); HEMATOCRIT 29.4 % (39.0-51.0); LYMPH % 20.3 % (9.0-44.0); LYMPHOCYTE # 1.3 TH/MM3 (1.0-4.8); MEAN CELL VOLUME 85.8 FL (80.0-100.0); MEAN CORPUSCULAR HEMOGLOBIN 26.4 PG (27.0-34.0); MEAN CORPUSCULAR HGB CONC 30.7 % (32.0-36.0); MEAN PLATELET VOLUME 9.3 FL (7.0-11.0); MONO % 9.6 % (0.0-8.0); MONOCYTE # 0.6 TH/MM3 (0-0.9); NEUT % 68.4 % (16.0-70.0); PLATELET COUNT 313 TH/MM3 (150-450); RED BLOOD COUNT 3.42 MIL/MM3 (4.50-5.90); RED CELL DISTRIBUTION WIDTH 15.6 % (11.6-17.2); WHITE BLOOD COUNT 6.6 TH/MM3 (4.0-11.0)
[2017-10-24 08:26] LABS: ALKALINE PHOSPHATASE 85 U/L (45-117); TOTAL BILIRUBIN ADULT 0.3 MG/DL (0.2-1.0); TOTAL PROTEIN 6.5 GM/DL (6.4-8.2)
[2017-10-24 08:35] LABS: ALBUMIN 2.4 GM/DL (3.4-5.0); ALT (GPT) 30 U/L (12-78); AST (GOT) 33 U/L (15-37); BICARBONATE 30.3 MEQ/L (21.0-32.0); BLOOD UREA NITROGEN 21 MG/DL (7-18); CALCIUM 8.8 MG/DL (8.5-10.1); CHLORIDE 102 MEQ/L (98-107); CREATININE 0.84 MG/DL (0.60-1.30); GLOMERULAR FILTRATION RATE 120 ML/MIN (>89); GLUCOSE,RANDOM 124 MG/DL (74-106); MAGNESIUM 2.2 MG/DL (1.5-2.5); PHOSPHORUS 3.9 MG/DL (2.5-4.9); SODIUM (NA) 138 MEQ/L (136-145)
[2017-10-24] MEDS: CHLORHEXIDINE GLUCONATE 0.12% 15 ML CUP SWISH-SPIT SCH (09:00)
[2017-10-24] MEDS: FLUTICASONE PROPIONATE 50 MCG/ACT 16 GM NASAL SPRAY EACH NARE SCH (09:00)
[2017-10-24] MEDS: DOCUSATE SODIUM 50 MG/SENNA 8.6 MG TAB G-TUBE SCH ×2 (09:10→20:43)
[2017-10-24] MEDS: POLYETHYLENE GLYCOL 17 GM PKG G-TUBE SCH ×2 (09:10→20:44)
[2017-10-24] MEDS: FAMOTIDINE 20 MG TAB NG SCH ×2 (09:10→20:43)
[2017-10-24] MEDS: INSULIN DETEMIR 100 UNITS/ML VIAL SQ SCH ×2 (09:11→20:42)
--- NOTE | 2017-10-24 09:59 | HHI.PR ---
Subjective Remarks Patient is lying in bed in NAD. Afebrile. On TP's with 28% FIO2. Objective Vital Signs Vital Signs Date Time Temp Pulse Resp B/P (MAP) Pulse Ox O2 Delivery O2 Flow Rate FiO2 10/24/17 09:50 97 3.00 10/24/17 08:49 97 T-piece 6.00 28 10/24/17 04:00 T-Piece 6.00 28 10/24/17 04:00 98.6 74 17 120/71 (87) 99 10/24/17 03:48 72 10/24/17 02:30 T-Piece 6.00 28 10/24/17 00:00 98.6 83 17 147/72 (97) 98 10/24/17 00:00 Nasal Cannula 3.00 10/23/17 23:46 85 10/23/17 20:23 100 Nasal Cannula 3.00 10/23/17 20:00 98.8 81 18 156/78 (104) 96 10/23/17 20:00 Nasal Cannula 3.00 10/23/17 19:43 79 10/23/17 18:09 98.3 82 21 146/84 (104) 93 10/23/17 16:00 75 10/23/17 12:10 97.8 71 20 139/81 (100) 95 10/23/17 12:00 75 10/23/17 10:46 94 Nasal Cannula 4.00 I/O 10/23/17 10/23/17 10/23/17 10/24/17 10/24/17 10/24/17 07:00 15:00 23:00 07:00 15:00 23:00 Intake Total 600 ml 1020 ml 1738 ml Output Total 650 ml 1850 ml Balance -650 ml 600 ml 1020 ml -112 ml Intake Oral 0 ml Tube Feeding 720 ml 778 ml Tube Irrigant 60 ml Other 600 ml 300 ml 900 ml Output Urine Total 650 ml 1850 ml Stool Total 0 ml # Voids 3 # Bowel Movements 0 1 Result Diagram: 10/24/17 0703 10/24/17 0705 Other Results Last Impressions Chest X-Ray 10/24/17 0600 Signed Impressions: Service Date/Time: Tuesday, October 24, 2017 04:21 - CONCLUSION: No significant interval change. Iain Fragoso MD Maxillofacial CT 09/16/17 0000 Signed Impressions: Service Date/Time: September 01:03 - CONCLUSION: 1. Evidence of acute pansinusitis. 2. Opacification of multiple bilateral mastoid air cells most characteristic of mastoiditis. 3. Mildly prominent cervical chain nodes which may be reactive. Angelo Conn MD Upper Extremity Ultrasound 09/15/17 0000 Signed Impressions: Service Date/Time: Friday, September 15, 2017 17:14 - CONCLUSION: Occlusive thrombus within the left cephalic vein and nonocclusive thrombus within the right cephalic vein. Ric Jack MD Lower Extremity Ultrasound 09/15/17 0000 Signed Impressions: Service Date/Time: Friday, September 15, 2017 16:58 - CONCLUSION: No evidence of DVT within the lower extremities. Ric Jack MD Head CT 09/13/17 0800 Signed Impressions: Service Date/Time: Wednesday, September 13, 2017 09:17 - CONCLUSION: 1. Resolving left basal ganglia hematoma Natan Lagos MD Chest CT 09/13/17 0000 Signed Impressions: Service Date/Time: Wednesday, September 13, 2017 09:28 - CONCLUSION: 1. Bibasilar and left lingular dependent atelectatic changes. Lungs are otherwise clear. 2. Tracheostomy tube with the tip probably positioned above the connie. 3. Compensated cardiomegaly. Reyes Guzman MD Abdomen/Pelvis CT 09/13/17 0000 Signed Impressions: Service Date/Time: Wednesday, September 13, 2017 09:28 - CONCLUSION: 1. There is some stranding in the retroperitoneal perivascular tissues around the distal aorta extending into the bifurcation with a regional borderline lymph nodes. Findings are characteristic of a nonspecific inflammatory process. Findings could represent early retroperitoneal fibrosis.. 2. Urinary bladder is decompressed with some mural thickening in pericystic inflammatory changes possibly representing a chronic cystitis. Nondependent air could be associated with a recent catheterization/instrumentation. 3. Small umbilical and right inguinal hernias only contain fat. 4. Bilateral dependent basilar and left lingular atelectatic changes. Heart size is borderline prominent. 5. Otherwise , bowel is intact without obstruction to explain abdominal distention Reyes Guzman MD Abdomen X-Ray 09/10/17 0600 Signed Impressions: Service Date/Time: Sunday, September 10, 2017 03:56 - CONCLUSION: No significant abnormality is identified. There is mild distention of the colon but there are no findings to suggest bowel obstruction or significant ileus. Ignacio Underwood MD Liver Ultrasound 09/07/17 0000 Signed Impressions: Service Date/Time: Thursday, September 07, 2017 12:37 - CONCLUSION: 1. Unremarkable sonographic appearance of the liver. No evidence for hepatic volume loss or intrahepatic ductal dilatation. 2. No sonographic evidence for cholelithiasis or acute cholecystitis. 3. Mild increased right renal echogenicity may reflect medical renal disease. 4. Small bilateral pleural effusions. 5. Pancreas and inferior pole of the right kidney are obscured by bowel gas and therefore not evaluated. Darrell Robles MD Renal Ultrasound 08/31/17 0000 Signed Impressions: Service Date/Time: Thursday, August 31, 2017 17:42 - CONCLUSION: 1. No evidence of hydronephrosis on either side. 2. Solitary linear echogenic focus in the upper pole parenchyma of the right kidney has similar features to prior examination in January 2017 and possibly represents a calcification. David Snell MD Neck CTA 08/28/177 Signed Impressions: Service Date/Time: Tuesday, August 29, 2017 00:13 - CONCLUSION: Negative carotid CTA. David Snell MD Head CTA 08/28/177 Signed Impressions: Service Date/Time: Tuesday, August 29, 2017 00:13 - CONCLUSION: 1. No evidence of vessel truncation or aneurysm. 2. No abnormal vessels in the region of the large left thalamic hemorrhage. David Snell MD Objective Remarks GENERAL: Patient is lying in bed in NAD SKIN: Warm and dry. HEAD: Normocephalic. EYES: No scleral icterus. No injection or drainage. NECK: Supple, trachea midline. No JVD or lymphadenopathy. CARDIOVASCULAR: Regular rate and rhythm without murmurs, gallops, or rubs. RESPIRATORY: Breath sounds equal bilaterally. No accessory muscle use. GASTROINTESTINAL: Abdomen soft, non-tender, nondistended. MUSCULOSKELETAL: No cyanosis, or edema. BACK: Nontender without obvious deformity. No CVA tenderness. Neuro: Awake and alert A/P Assessment and Plan Resp failure S/P Trach HTN s/p ICH, right side flaccid Pneumonia PLAN Continue with oxygen keep sat >92% Bronchodilators Pulm toilet, trach care Off abx, monitor for signs of infections ( fever, WBC) Continue with tube feeds via PEG tube CXR today showed clear right lung , mild infiltrate left lung base(unchanged) Continue treatment plan. Jacqui Briseno MD Oct 24, 2017 09:59
--- NOTE | 2017-10-24 10:43 | HHI.PR ---
Subjective Remarks 1-11 Patient seen and examined [place] trach capping unsuccessful AWAIT SAFE PLACEMENT RIGHT SIDE IS LESS FLACCID 1-12 MOVING RIGHT SIDE MORE- NOT TOTALLY FLACCID MOVING LEFT SIDE WELL CONTINUE PT AND OT 1-13 TOLERATING PASSY DIANA VALVE MOVING RIGHT SIDE MORE TO RUIZ WHEN BED AVAILABLE 1-14 HAS PASSY DIANA VALVE IN PLACE NO NEW COMPLAINTS DW RN AND PT MOVING RIDE SIDE SOME NOW AWAIT RUIZ PLACEMENT Objective Vitals Vital Signs Date Time Temp Pulse Resp B/P (MAP) Pulse Ox O2 Delivery O2 Flow Rate FiO2 10/24/17 09:50 97 3.00 10/24/17 08:49 97 T-piece 6.00 28 10/24/17 08:10 98.1 73 21 123/77 (92) 100 10/24/17 04:00 T-Piece 6.00 28 10/24/17 04:00 98.6 74 17 120/71 (87) 99 10/24/17 03:48 72 10/24/17 02:30 T-Piece 6.00 28 10/24/17 00:00 98.6 83 17 147/72 (97) 98 10/24/17 00:00 Nasal Cannula 3.00 10/23/17 23:46 85 10/23/17 20:23 100 Nasal Cannula 3.00 10/23/17 20:00 98.8 81 18 156/78 (104) 96 10/23/17 20:00 Nasal Cannula 3.00 10/23/17 19:43 79 10/23/17 18:09 98.3 82 21 146/84 (104) 93 10/23/17 16:00 75 10/23/17 12:10 97.8 71 20 139/81 (100) 95 10/23/17 12:00 75 10/23/17 10:46 94 Nasal Cannula 4.00 I/O 10/23/17 10/23/17 10/23/17 10/24/17 10/24/17 10/24/17 07:00 15:00 23:00 07:00 15:00 23:00 Intake Total 600 ml 1020 ml 1738 ml Output Total 650 ml 1850 ml Balance -650 ml 600 ml 1020 ml -112 ml Intake Oral 0 ml Tube Feeding 720 ml 778 ml Tube Irrigant 60 ml Other 600 ml 300 ml 900 ml Output Urine Total 650 ml 1850 ml Stool Total 0 ml # Voids 3 # Bowel Movements 0 1 Result Diagram: 10/24/17 0703 10/24/17 0705 Other Results Laboratory Tests Test 10/24/17 07:03 10/24/17 07:05 White Blood Count 6.6 TH/MM3 Red Blood Count 3.42 MIL/MM3 Hemoglobin 9.0 GM/DL Hematocrit 29.4 % Mean Corpuscular Volume 85.8 FL Mean Corpuscular Hemoglobin 26.4 PG Mean Corpuscular Hemoglobin Concent 30.7 % Red Cell Distribution Width 15.6 % Platelet Count 313 TH/MM3 Mean Platelet Volume 9.3 FL Neutrophils (%) (Auto) 68.4 % Lymphocytes (%) (Auto) 20.3 % Monocytes (%) (Auto) 9.6 % Eosinophils (%) (Auto) 1.4 % Basophils (%) (Auto) 0.3 % Neutrophils # (Auto) 4.5 TH/MM3 Lymphocytes # (Auto) 1.3 TH/MM3 Monocytes # (Auto) 0.6 TH/MM3 Eosinophils # (Auto) 0.1 TH/MM3 Basophils # (Auto) 0.0 TH/MM3 CBC Comment DIFF FINAL Differential Comment Blood Urea Nitrogen 21 MG/DL Creatinine 0.84 MG/DL Random Glucose 124 MG/DL Total Protein 6.5 GM/DL Albumin 2.4 GM/DL Calcium Level 8.8 MG/DL Phosphorus Level 3.9 MG/DL Magnesium Level 2.2 MG/DL Alkaline Phosphatase 85 U/L Aspartate Amino Transf (AST/SGOT) 33 U/L Alanine Aminotransferase (ALT/SGPT) 30 U/L Total Bilirubin 0.3 MG/DL Sodium Level 138 MEQ/L Potassium Level 4.2 MEQ/L Chloride Level 102 MEQ/L Carbon Dioxide Level 30.3 MEQ/L Anion Gap 6 MEQ/L Estimat Glomerular Filtration Rate 120 ML/MIN Imaging Last Impressions Chest X-Ray 10/24/17 0600 Signed Impressions: Service Date/Time: Tuesday, October 24, 2017 04:21 - CONCLUSION: No significant interval change. Iain Fragoso MD Maxillofacial CT 09/16/17 0000 Signed Impressions: Service Date/Time: September 01:03 - CONCLUSION: 1. Evidence of acute pansinusitis. 2. Opacification of multiple bilateral mastoid air cells most characteristic of mastoiditis. 3. Mildly prominent cervical chain nodes which may be reactive. Angelo Conn MD Upper Extremity Ultrasound 09/15/17 0000 Signed Impressions: Service Date/Time: Friday, September 15, 2017 17:14 - CONCLUSION: Occlusive thrombus within the left cephalic vein and nonocclusive thrombus within the right cephalic vein. Ric Jack MD Lower Extremity Ultrasound 09/15/17 0000 Signed Impressions: Service Date/Time: Friday, September 15, 2017 16:58 - CONCLUSION: No evidence of DVT within the lower extremities. Ric Jack MD Head CT 09/13/17 0800 Signed Impressions: Service Date/Time: Wednesday, September 13, 2017 09:17 - CONCLUSION: 1. Resolving left basal ganglia hematoma Natan Lagos MD Chest CT 09/13/17 0000 Signed Impressions: Service Date/Time: Wednesday, September 13, 2017 09:28 - CONCLUSION: 1. Bibasilar and left lingular dependent atelectatic changes. Lungs are otherwise clear. 2. Tracheostomy tube with the tip probably positioned above the connie. 3. Compensated cardiomegaly. Reyes Guzman MD Abdomen/Pelvis CT 09/13/17 0000 Signed Impressions: Service Date/Time: Wednesday, September 13, 2017 09:28 - CONCLUSION: 1. There is some stranding in the retroperitoneal perivascular tissues around the distal aorta extending into the bifurcation with a regional borderline lymph nodes. Findings are characteristic of a nonspecific inflammatory process. Findings could represent early retroperitoneal fibrosis.. 2. Urinary bladder is decompressed with some mural thickening in pericystic inflammatory changes possibly representing a chronic cystitis. Nondependent air could be associated with a recent catheterization/instrumentation. 3. Small umbilical and right inguinal hernias only contain fat. 4. Bilateral dependent basilar and left lingular atelectatic changes. Heart size is borderline prominent. 5. Otherwise , bowel is intact without obstruction to explain abdominal distention Reyes Guzman MD Abdomen X-Ray 09/10/17 0600 Signed Impressions: Service Date/Time: Sunday, September 10, 2017 03:56 - CONCLUSION: No significant abnormality is identified. There is mild distention of the colon but there are no findings to suggest bowel obstruction or significant ileus. Ignacio Underwood MD Liver Ultrasound 09/07/17 0000 Signed Impressions: Service Date/Time: Thursday, September 07, 2017 12:37 - CONCLUSION: 1. Unremarkable sonographic appearance of the liver. No evidence for hepatic volume loss or intrahepatic ductal dilatation. 2. No sonographic evidence for cholelithiasis or acute cholecystitis. 3. Mild increased right renal echogenicity may reflect medical renal disease. 4. Small bilateral pleural effusions. 5. Pancreas and inferior pole of the right kidney are obscured by bowel gas and therefore not evaluated. Darrell Robles MD Renal Ultrasound 08/31/17 0000 Signed Impressions: Service Date/Time: Thursday, August 31, 2017 17:42 - CONCLUSION: 1. No evidence of hydronephrosis on either side. 2. Solitary linear echogenic focus in the upper pole parenchyma of the right kidney has similar features to prior examination in January 2017 and possibly represents a calcification. David Snell MD Neck CTA 08/28/17 2347 Signed Impressions: Service Date/Time: Tuesday, August 29, 2017 00:13 - CONCLUSION: Negative carotid CTA. David Snell MD Head CTA 08/28/17 2347 Signed Impressions: Service Date/Time: Tuesday, August 29, 2017 00:13 - CONCLUSION: 1. No evidence of vessel truncation or aneurysm. 2. No abnormal vessels in the region of the large left thalamic hemorrhage. David Snell MD Objective Remarks GENERAL: Awake and alert moves left side- LESS flaccid on the right side - MOVING SOME-has tracheostomy in place and PEG tube in place SKIN: Warm and dry. HEAD: Atraumatic. Normocephalic. EYES: Pupils equal and round. No scleral icterus. No injection or drainage. ENT: No nasal bleeding or discharge. Mucous membranes pink and moist. NECK: Trachea midline. No JVD. Tracheostomy in place WITH PASSY DIANA VALVE IN PLACE NOW CARDIOVASCULAR: Regular rate and rhythm. S1 and S2 no S3 or S4 RESPIRATORY: No accessory muscle use.. Breath sounds equal bilaterally. Coarse breath sounds bilaterally GASTROINTESTINAL: Abdomen soft, non-tender, nondistended. Hepatic and splenic margins not palpable. PEG tube CONDOM CATHETER IN PLACE MUSCULOSKELETAL: Extremities without clubbing, cyanosis, or edema. No obvious deformities. Right side flaccid moves left side NEUROLOGICAL: Awake and alert. No obvious cranial nerve deficits. Motor grossly within normal limits. Five out of 5 muscle strength in the left arms and legs--LESS flaccid on the right- NO MOVING SOME. USING PASSY DIANA VALVE NOW PSYCHIATRIC: Appropriate mood and affect; insight and judgment BETTER- HAS PASSY DIANA VALVE CAN COMMUNICATE BETTER Procedures Tracheostomy and PEG placement Medications and IVs Current Medications Sodium Chloride 1,000 ml @ 70 mls/hr [id number] ONCE IV ; Start 08/28/17 at 23:47 ; Stop 08/29/17 at 14:04; Status DC Nicardipine HCl 25 mg/Sodium Chloride 250 ml @ 50 mls/hr TITRATE PRN IV Blood pressure management; Start 08/29/17 at 00:00; Stop 08/29/17 at 00:48; Status DC Propofol 100 ml @ 0 mls/hr TITRATE PRN IV SEDATION; Start 08/29/17 at 00:00; Stop 08/29/17 at 00:40; Status DC Propofol 100 ml @ As Directed STK-MED ONCE .ROUTE ; Start 08/28/17 at 23:57; Stop 08/28/17 at 23:58; Status DC Etomidate (Amidate Inj) 20 mg ONCE ONCE IVP ; Start 08/29/17 at 00:00; Stop 08/29/17 at 00:01; Status DC Succinylcholine Chloride (Quelicin Inj) 100 mg ONCE ONCE IV PUSH ; Start 08/29 at 00:00; Stop 08/29/17 at 00:01; Status DC Sodium Chloride (NS Flush) 2 ml UNSCH PRN IVF FLUSH AFTER USING IV ACCESS Last administered on 10/22/17at 09:48; Start 08/29/17 at 00:00 Rocuronium Clinton (Zemuron Inj) 50 mg BOLUS ONCE IV ; Start 08/29/17 at 00:15 ; Stop 08/29/17 at 00:17; Status DC Iohexol (Omnipaque 350 Inj) 100 ml STK-MED ONCE IVCONTRAST Last administered on 08/29/17t 00:18; Start 08/29/17 at 00:18; Stop 08/29/17 at 00:19; Status DC Chlorhexidine Gluconate (Peridex 0.12% Liq) 15 ml BID@08,20 MT Last administered on 10/11/17at 09:59; Start 08/29/17 at 08:00; Stop 10/11/17 at 14:08 ; Status DC Propofol 100 ml @ 3 mls/hr TITRATE PRN IV SEDATION; Start 08/29/17 at 00:45; Stop 08/29/17 at 04:17; Status DC Nicardipine HCl (Cardene Inj) 25 mg STK-MED ONCE .ROUTE ; Start 08/29/17 at 00: 36; Stop 08/29/17 at 00:37; Status DC Nicardipine HCl 25 mg/Sodium Chloride 250 ml @ 50 mls/hr TITRATE PRN IV BLOOD PRESSURE MANAGEMENT Last administered on 09/02/17 09:52; Start 08/29/17 at 00 :45; Stop 09/02/17 at 21:12; Status DC Labetalol HCl (Trandate Inj) 10 mg Q20M PRN IV PUSH SBP>140, DBP>90 Last administered on 09/19/17 02:16; Start 08/29/17 at 00:45 Amlodipine Besylate (Norvasc) 10 mg DAILY PO Last administered on 09/24/17 09 :14; Start 08/29/17 at 09:00; Stop 09/25/17 at 09:29; Status DC Lisinopril (Prinivil) 40 mg DAILY PO Last administered on 09/04/17 09:07; Start 08/29/17 at 09:00; Stop 09/04/17 at 12:18; Status DC Sodium Chloride 1,000 ml @ 75 mls/hr [id number] IV Last administered on 06:03; Start 08/29/17 at 00:43; Stop 08/31/17 at 11:07; Status DC Acetaminophen (Tylenol) 650 mg Q6H PRN PO PAIN 1-5 AND/OR FEVER >101F Last administered on 09/23/17 03:09; Start 08/29/17 at 00:45; Stop 09/25/17 at 09 :29; Status DC Morphine Sulfate (Morphine Inj) 2 mg Q2H PRN IV PUSH PAIN SCALE 6 TO 10 Last administered on 09/17/17 03:33; Start 08/29/17 at 00:45; Stop 09/24/17 at 16: 27; Status DC Pantoprazole Sodium (Protonix Inj) 40 mg DAILY IV PUSH Last administered on 09:15; Start 08/29/17 at 09:00; Stop 09/11/17 at 10:25; Status DC Ondansetron HCl (Zofran Inj) 4 mg Q6H PRN IV PUSH NAUSEA OR VOMITING Last administered on 09/11/17 14:18; Start 08/29/17 at 00:45 Albuterol/ Ipratropium (Duoneb Neb) 1 ampule Q4HR NEB PRN INH WHEEZING Last administered on 09/15/17 11:55; Start 08/29/17 at 00:45; Stop 09/17/17 at 12: 47; Status DC Miscellaneous Information 1 [id number] Last administered on 08/29/17 01:00; Start 08/29/17 at 00:45; Stop 10/24/17 at 04:26; Status DC Chlorhexidine Gluconate (Chlorhexidine 2% Cloth) Taper DAILY@04 TOP ; Start at 04:00; Stop 10/24/17 at 04:26; Status DC Chlorhexidine Gluconate (Chlorhexidine 2% Cloth) 3 pack UNSCH PRN TOP HYGIENIC CARE; Start 08/29/17 at 00:45; Stop 10/24/17 at 04:26; Status DC Senna/Docusate Sodium (Melina-Colace) 1 tab BID PO Last administered on 09:15; Start 08/29/17 at 09:00; Stop 08/31/17 at 11:08; Status DC Magnesium Hydroxide (Milk Of Magnesia Liq) 30 ml Q12H PRN PO Mild constipation ; Start 08/29/17 at 00:45; Stop 08/31/17 at 11:08; Status DC Sennosides (Senokot) 17.2 mg Q12H PRN PO Moderate constipation; Start at 00:45; Stop 08/31/17 at 11:08; Status DC Bisacodyl (Dulcolax Supp) 10 mg DAILY PRN RECTAL SEVERE CONSITIPATION; Start 08/29/17 at 00:45; Stop 08/31/17 at 11:08; Status DC Lactulose (Lactulose Liq) 30 ml DAILY PRN PO SEVERE CONSITIPATION; Start 08/29 at 00:45; Stop 08/31/17 at 11:08; Status DC Fentanyl Citrate 250 ml @ 5 mls/hr TITRATE PRN IV SEDATION Last administered on 09/11/17 06:14; Start 08/29/17 at 00:45; Stop 09/11/17 at 10:20; Status DC Fentanyl Citrate 250 ml @ As Directed STK-MED ONCE .ROUTE ; Start 08/29/17 at 01:30; Stop 08/29/17 at 04:10; Status DC Propofol 100 ml @ 3 mls/hr TITRATE PRN IV SEDATION Last administered on 07:37; Start 08/29/17 at 04:30; Stop 08/31/17 at 11:08; Status DC Rocuronium Clinton (Zemuron Inj) 100 mg STAT ONCE IV Last administered on 02:00; Start 08/29/17 at 02:00; Stop 08/29/17 at 04:18; Status DC Atorvastatin Calcium (Lipitor) 40 mg HS PO Last administered on 09/24/17 20: 43; Start 08/29/17 at 21:00; Stop 09/25/17 at 09:29; Status DC Hydrochlorothiazide (Hydrodiuril) 25 mg DAILY PO Last administered on 10:37; Start 08/29/17 at 09:00; Stop 09/08/17 at 11:02; Status DC Metoprolol Tartrate (Lopressor) 100 mg BID PO Last administered on 08/31/17 09:15; Start 08/29/17 at 09:00; Stop 09/11/17 at 10:20; Status DC Clonidine (Catapres) 0.1 mg Q8HR PO Last administered on 09/06/17 04:55; Start 08/29/17 at 06:00; Stop 09/06/17 at 11:33; Status DC Sodium Chloride 1,000 ml @ 999 mls/hr Q1H1M ONCE IV Last administered on 08/29 06:10; Start 08/29/17 at 06:30; Stop 08/29/17 at 07:30; Status DC Magnesium Oxide (Mag-Ox) 800 mg UNSCH PRN PO For Magnesium 1.2 - 1.6 mg/dL; Start 08/29/17 at 13:15; Stop 08/30/17 at 15:34; Status DC Magnesium Sulfate 4 gm/Sodium Chloride 100 ml @ 50 mls/hr UNSCH PRN IV For Magnesium 0.9 - 1.1 mg/dL; Start 08/29/17 at 13:15; Stop 08/30/17 at 15:34; Status DC Magnesium Sulfate 2 gm/Sodium Chloride 100 ml @ 50 mls/hr UNSCH PRN IV For Magnesium 1.2 - 1.6 mg/dL; Start 08/29/17 at 13:15; Stop 08/30/17 at 15:34; Status DC Potassium Chloride 100 ml @ 50 mls/hr Q2H PRN IV For Potassium 2.8 - 3.2 mEq/ L Last administered on 08/29/17t 17:06; Start 08/29/17 at 13:15; Stop at 15:34; Status DC Potassium Chloride 100 ml @ 50 mls/hr Q2H PRN IV For Potassium 3.3 - 3.5 mEq/ L Last administered on 08/30/17t 06:13; Start 08/29/17 at 13:15; Stop at 15:34; Status DC Potassium Chloride 100 ml @ 50 mls/hr Q2H PRN IV For Potassium 2.8 - 3.2 mEq/L ; Start 08/29/17 at 13:15; Stop 08/30/17 at 15:34; Status DC Potassium Chloride 100 ml @ 25 mls/hr UNSCH PRN IV For Potassium 3.3 - 3.5 mEq /L; Start 08/29/17 at 13:15; Stop 08/30/17 at 15:34; Status DC Potassium Phosphate (K-Phos) 2,000 mg Q4H PRN PO For Phosphorus < 2.5 mg/dL; Start 08/29/17 at 13:15; Stop 08/30/17 at 15:34; Status DC Potassium Phosphate (K-Phos) 2,000 mg UNSCH PRN PO/TUBE SEE LABEL COMMENTS; Start 08/29/17 at 13:15; Stop 08/30/17 at 15:34; Status DC Potassium Phosphate 30 mmol/ Sodium Chloride 260 ml @ 42 mls/hr UNSCH PRN IV SEE LABEL COMMENTS; Start 08/29/17 at 13:15; Stop 08/30/17 at 15:34; Status DC Sodium Phosphate 30 mmol/Sodium Chloride 250 ml @ 42 mls/hr UNSCH PRN IV For Phosphorus < 2.5 mg/dL; Start 08/29/17 at 13:15; Stop 08/30/17 at 15:34; Status DC Dextrose (D50w (Vial) Inj) 25 ml UNSCH PRN IV PUSH HYPOGLYCEMIA-SEE COMMENTS; Start 08/30/17 at 08:15; Stop 09/18/17 at 11:53; Status DC Insulin Human Regular (NovoLIN R SUPPLEMENTAL SCALE) 1 Q6HR SQ Last administered on 09/18/17t 05:34; Start 08/30/17 at 12:00; Stop 09/18/17 at 11: 53; Status DC Magnesium Oxide (Mag-Ox) 800 mg UNSCH PRN PO For Magnesium 1.2 - 1.6 mg/dL; Start 08/30/17 at 08:15; Stop 08/31/17 at 13:02; Status DC Magnesium Sulfate 4 gm/Sodium Chloride 100 ml @ 50 mls/hr UNSCH PRN IV For Magnesium 0.9 - 1.1 mg/dL; Start 08/30/17 at 08:15; Stop 08/31/17 at 13:02; Status DC Magnesium Sulfate 2 gm/Sodium Chloride 100 ml @ 50 mls/hr UNSCH PRN IV For Magnesium 1.2 - 1.6 mg/dL; Start 08/30/17 at 08:15; Stop 08/31/17 at 13:02; Status DC Potassium Chloride 100 ml @ 50 mls/hr Q2H PRN IV For Potassium 2.8 - 3.2 mEq/L ; Start 08/30/17 at 08:15; Stop 08/31/17 at 13:02; Status DC Potassium Chloride 100 ml @ 50 mls/hr Q2H PRN IV For Potassium 3.3 - 3.5 mEq/L ; Start 08/30/17 at 08:15; Stop 08/31/17 at 13:02; Status DC Potassium Chloride 100 ml @ 50 mls/hr Q2H PRN IV For Potassium 2.8 - 3.2 mEq/L ; Start 08/30/17 at 08:15; Stop 08/31/17 at 13:02; Status DC Potassium Chloride 100 ml @ 25 mls/hr UNSCH PRN IV For Potassium 3.3 - 3.5 mEq /L; Start 08/30/17 at 08:15; Stop 08/31/17 at 13:02; Status DC Potassium Phosphate (K-Phos) 2,000 mg Q4H PRN PO For Phosphorus < 2.5 mg/dL; Start 08/30/17 at 08:15; Stop 08/31/17 at 13:02; Status DC Potassium Phosphate (K-Phos) 2,000 mg UNSCH PRN PO/TUBE SEE LABEL COMMENTS; Start 08/30/17 at 08:15; Stop 08/31/17 at 13:02; Status DC Potassium Phosphate 30 mmol/ Sodium Chloride 260 ml @ 42 mls/hr UNSCH PRN IV SEE LABEL COMMENTS; Start 08/30/17 at 08:15; Stop 08/31/17 at 13:02; Status DC Sodium Phosphate 30 mmol/Sodium Chloride 250 ml @ 42 mls/hr UNSCH PRN IV For Phosphorus < 2.5 mg/dL; Start 08/30/17 at 08:15; Stop 08/31/17 at 13:02; Status DC Hydralazine HCl (Apresoline Inj) 10 mg Q30M PRN IV PUSH sbp > 160 Last administered on 09/19/17 09:08; Start 08/30/17 at 08:15 Oxycodone HCl (Roxicodone Intensol Liq) 5 mg Q4H PO Last administered on 09:16; Start 08/30/17 at 09:00; Stop 08/31/17 at 11:07; Status DC Dexmedetomidine HCl 50 ml @ 29.9 mls/hr TITRATE IV ; Start 08/30/17 at 14:15; Stop 08/30/17 at 14:46; Status DC Dexmedetomidine HCl 200 mcg/ Sodium Chloride 50 ml @ 29.9 mls/hr TITRATE IV Last administered on 08/30/17 15:27; Start 08/30/17 at 15:00; Stop 08/30/17 at 16:42; Status DC Dexmedetomidine HCl 1000 mcg/ Sodium Chloride 250 ml @ 29.9 mls/hr TITRATE IV Last administered on 08/30/17 17:58; Start 08/30/17 at 16:45; Stop 08/31/17 at 06:14; Status DC Propofol 100 ml @ 14.352 mls/ hr TITRATE PRN IV SEDATION Last administered on 09/10/17 09:59; Start 08/31/17 at 00:30; Stop 09/11/17 at 10:20; Status DC Piperacillin Sod/ Tazobactam Sod 100 ml @ 200 mls/hr Q6HR IV Last administered on 09/01/17 13:02; Start 08/31/17 at 06:00; Stop 09/01/17 at 14 :52; Status DC Morphine Sulfate (Morphine Inj) 10 mg ONCE ONCE IV PUSH Last administered on 08/31/17 06:31; Start 08/31/17 at 06:30; Stop 08/31/17 at 06:31; Status DC Propranolol HCl (Inderal) 10 mg ONCE ONCE PO Last administered on 08/31/17 06:30; Start 08/31/17 at 06:15; Stop 08/31/17 at 06:20; Status DC Oxycodone HCl (Roxicodone Intensol Liq) 10 mg Q4H PO Last administered on 09:17; Start 08/31/17 at 13:00; Stop 09/11/17 at 10:20; Status DC Propranolol HCl (Inderal) 10 mg Q6HR PO Last administered on 09/11/17 05:37; Start 08/31/17 at 12:00; Stop 09/11/17 at 10:20; Status DC Quetiapine Fumarate (SEROquel) 100 mg Q8HR PO Last administered on 09/11/17 05 :37; Start 08/31/17 at 11:00; Stop 09/11/17 at 10:20; Status DC Haloperidol Lactate (Haldol Inj) 5 mg Q4H PRN IV agitation Last administered on 09/12/17 23:04; Start 08/31/17 at 11:00; Stop 09/25/17 at 09:30; Status DC Magnesium Sulfate/ Dextrose 100 ml @ 100 mls/hr Q1H IV Last administered on 12:22; Start 08/31/17 at 12:00; Stop 08/31/17 at 13:00; Status DC Bisacodyl (Dulcolax Supp) 10 mg DAILY RECTAL Last administered on 08/31/17 11 :58; Start 08/31/17 at 12:00; Stop 09/25/17 at 09:30; Status DC Polyethylene Glycol (Miralax) 17 gm BID PO Last administered on 09/20/17 09: 26; Start 08/31/17 at 12:00; Stop 09/25/17 at 09:29; Status DC Lactulose (Lactulose Liq) 30 ml BID PO Last administered on 09/04/17 19:57; Start 08/31/17 at 12:00; Stop 09/25/17 at 09:30; Status DC Senna/Docusate Sodium (Melina-Colace) 1 tab BID PO Last administered on 09:14; Start 08/31/17 at 12:00; Stop 09/25/17 at 09:29; Status DC Magnesium Citrate (Citroma Liq) 300 ml ONCE ONCE PO Last administered on 08/31 11:57; Start 08/31/17 at 12:00; Stop 08/31/17 at 12:01; Status DC Rocuronium Clinton (Zemuron Inj) 50 mg STK-MED ONCE .ROUTE Last administered on 08/31/17 14:36; Start 08/31/17 at 14:36; Stop 08/31/17 at 14:37; Status DC Calcium Acetate (Phoslo) 667 mg TID PO Last administered on 09/08/17 10:38; Start 08/31/17 at 18:00; Stop 09/08/17 at 11:02; Status DC Rocuronium Clinton (Zemuron Inj) 50 mg STAT ONCE IV Last administered on 08/31 16:00; Start 08/31/17 at 16:00; Stop 08/31/17 at 16:01; Status DC Lactated Ringer's 1,000 ml @ 999 mls/hr BOLUS ONCE IV Last administered on 21:12; Start 08/31/17 at 20:45; Stop 08/31/17 at 21:45; Status DC Piperacillin Sod/ Tazobactam Sod 50 ml @ 100 mls/hr Q6HR IV Last administered on 09/02/17 05:59; Start 09/01/17 at 18:00; Stop 09/02/17 at 10:45; Status DC Piperacillin Sod/ Tazobactam Sod 50 ml @ 100 mls/hr Q8HR IV Last administered on 09/11/17 05:37; Start 09/02/17 at 14:00; Stop 09/11/17 at 10:20; Status DC Nicardipine HCl 50 mg/Sodium Chloride 500 ml @ 50 mls/hr TITRATE PRN IV BLOOD PRESSURE MANAGEMENT Last administered on 09/05/17 22:00; Start 09/02/17 at 21 :15; Stop 09/11/17 at 10:25; Status DC Rocuronium Clinton (Zemuron Inj) 50 mg STK-MED ONCE .ROUTE Last administered on 09/03/17 09:22; Start 09/03/17 at 09:22; Stop 09/03/17 at 09:23; Status DC Rocuronium Clinton (Zemuron Inj) 50 mg NOW ONCE IV PUSH Last administered on 09/03/17 10:13; Start 09/03/17 at 10:15; Stop 09/03/17 at 10:16; Status DC Rocuronium Clinton (Zemuron Inj) 50 mg NOW ONCE IV PUSH Last administered on 09/03/17 11:00; Start 09/03/17 at 11:00; Stop 09/03/17 at 11:01; Status DC Potassium Chloride 30 meq/ Sodium Chloride 115 ml @ 38.333 mls/ hr ONCE ONCE IV-CENTRAL Last administered on 09/03/17 13:36; Start 09/03/17 at 14:00; Stop 09/03/17 at 16:59; Status DC Dexamethasone Sodium Phosphate (Decadron Inj) 6 mg Q6H IV PUSH Last administered on 09/05/17 06:09; Start 09/04/17 at 13:00; Stop 09/05/17 at 11 :55; Status DC Diphenhydramine HCl (Benadryl Inj) 50 mg Q6H IV Last administered on 08:27; Start 09/04/17 at 13:00; Stop 09/07/17 at 12:59; Status DC Lorazepam (Ativan) 2 mg Q8H PO Last administered on 09/07/17 14:35; Start at 15:00; Stop 09/07/17 at 15:18; Status DC Acetaminophen 0 ml @ As Directed STK-MED ONCE IV ; Start 09/05/17 at 07:52; Stop 09/05/17 at 07:53; Status DC Insulin Detemir (Levemir Inj) 10 units Q12H SQ Last administered on 09/11/17 09:16; Start 09/05/17 at 10:00; Stop 09/11/17 at 10:21; Status DC Dexamethasone Sodium Phosphate (Decadron Inj) 4 mg Q12H IV PUSH Last administered on 09/07/17 05:28; Start 09/05/17 at 18:00; Stop 09/07/17 at 17 :59; Status DC Albuterol/ Ipratropium (Duoneb Neb) 1 ampule Q6HR NEB NEB Last administered on 09/08/17 11:05; Start 09/05/17 at 12:00; Stop 09/08/17 at 12:59; Status DC Rocuronium Clinton (Zemuron Inj) 50 mg BOLUS STAT IV Last administered on 16:47; Start 09/05/17 at 16:37; Stop 09/05/17 at 16:38; Status DC Fluticasone Propionate (Flonase Tae Spr) 2 spray DAILY EACH NARE Last administered on 10/24/17at 09:00; Start 09/05/17 at 17:00 Lactated Ringer's 1,000 ml @ 30 mls/hr Q24H PRN IV SEE LABEL COMMENTS; Start 09/05/17 at 23:00; Stop 09/08/17 at 22:59; Status DC Sodium Chloride 500 ml @ 30 mls/hr [id number] PRN IV SEE LABEL COMMENTS; Start at 23:00; Stop 09/08/17 at 22:59; Status DC Metoprolol Tartrate (Lopressor) 25 mg OLAP DEVELOPER PRN PO SEE LABEL COMMENTS; Start 09/05/17 at 23:00; Stop 09/08/17 at 22:59; Status DC Povidone Iodine (Betadine 5% Antisepsis Kit) 1 applic [employer] PRN EACH NARE SEE LABEL COMMENTS; Start 09/05/17 at 23:00; Stop 09/08/17 at 22:59; Status DC Chlorhexidine Gluconate (Chlorhexidine 2% Cloth) 3 pack [employer] PRN TOPICAL SEE LABEL COMMENTS; Start 09/05/17 at 23:00; Stop 09/08/17 at 22:59; Status DC Insulin Human Regular (NovoLIN R INJ) See Protocol Table ... [employer] PRN SQ SEE PROTOCOL TABLE; Start 09/05/17 at 23:00; Stop 09/08/17 at 22:59; Status DC Potassium Chloride 100 ml @ 50 mls/hr ONCE ONCE IV Last administered on 09/06 10:16; Start 09/06/17 at 09:30; Stop 09/06/17 at 11:29; Status DC Clonidine (Catapres) 0.3 mg Q8HR PO Last administered on 09/25/17 05:27; Start 09/06/17 at 14:00; Stop 09/25/17 at 09:29; Status DC Clonidine (Catapres) 0.3 mg ONCE ONCE PO Last administered on 09/06/17 11:55 ; Start 09/06/17 at 11:45; Stop 09/06/17 at 11:46; Status DC Heparin Sodium (Porcine) (Heparin Inj) 5,000 units Q12HR SQ ; Start 09/06/17 at 21:00; Stop 09/06/17 at 21:00; Status DC Gelatin (Gelfoam 12 Mm/7 Mm Top) 1 foam STK-MED ONCE .ROUTE Last administered on 09/07/17 09:47; Start 09/07/17 at 09:47; Stop 09/07/17 at 09:48; Status DC Silver Nitrate/ Potassium Nitrate (Silver Nitrate Applicators) 1 appl ONCE ONCE TOPICAL Last administered on 09/07/17 10:15; Start 09/07/17 at 10:15; Stop 09/07/17 at 10:47; Status DC Potassium Chloride 100 ml @ 50 mls/hr Q2H IV Last administered on 09/07/17 12:45; Start 09/07/17 at 10:45; Stop 09/07/17 at 14:44; Status DC Desmopressin Acetate (Ddavp Tae Spr) 1 spray ONCE ONCE EACH NARE Last administered on 09/07/17 15:00; Start 09/07/17 at 15:00; Stop 09/07/17 at 15 :01; Status DC Propofol (Diprivan 200 Mg/20 ml Inj) 200 mg STK-MED ONCE IV ; Start 09/06/17 at 12:00; Stop 09/07/17 at 15:10; Status DC Lorazepam (Ativan) 1 mg Q12H PO Last administered on 09/09/17 20:27; Start 09/07/17 at 19:00; Stop 09/11/17 at 10:25; Status DC Gelatin (Gelfoam 12 Mm/7 Mm Top) 1 foam Q2HR PRN TOPICAL if still bleeding from peg Last administered on 09/08/17 08:00; Start 09/07/17 at 19:45 Potassium Chloride 100 ml @ 50 mls/hr Q2H IV Last administered on 09/08/17 11:59; Start 09/08/17 at 09:00; Stop 09/08/17 at 12:59; Status DC Potassium Chloride (KCl) 40 meq ONCE ONCE PO ; Start 09/08/17 at 09:00; Stop 09/08/17 at 12:05; Status DC Potassium Chloride (KCl Powder) 40 meq ONCE ONCE PEG Last administered on 12:15; Start 09/08/17 at 12:15; Stop 09/08/17 at 12:21; Status DC Midazolam HCl (Versed Inj) 10 mg ONCE ONCE IV PUSH ; Start 09/08/17 at 13:00; Stop 09/08/17 at 13:41; Status DC Sodium Chloride 1,000 ml @ 999 mls/hr BOLUS ONCE IV Last administered on 13:00; Start 09/08/17 at 13:00; Stop 09/08/17 at 14:00; Status DC Rocuronium Clinton (Zemuron Inj) 100 mg BOLUS ONCE IV ; Start 09/08/17 at 13: 00; Stop 09/08/17 at 13:44; Status DC Albuterol/ Ipratropium (Duoneb Neb) 1 ampule Q6HR NEB NEB Last administered on 09/12/17 15:34; Start 09/08/17 at 16:00; Stop 09/12/17 at 15:59; Status DC Midazolam HCl (Versed Inj) 10 mg STK-MED ONCE .ROUTE Last administered on 09/08 13:39; Start 09/08/17 at 13:12; Stop 09/08/17 at 13:13; Status DC Rocuronium Clinton (Zemuron Inj) 100 mg STK-MED ONCE .ROUTE Last administered on 09/08/17 13:12; Start 09/08/17 at 13:12; Stop 09/08/17 at 13:13; Status DC Midazolam HCl (Versed Inj) 5 mg STK-MED ONCE .ROUTE Last administered on 13:52; Start 09/08/17 at 13:44; Stop 09/08/17 at 13:45; Status DC Midazolam HCl (Versed Inj) 5 mg STK-MED ONCE .ROUTE Last administered on 13:52; Start 09/08/17 at 13:49; Stop 09/08/17 at 13:50; Status DC Potassium Bicarb/ Potassium Chloride (K-Lyte Cl Eff) 25 meq ONCE ONCE PO Last administered on 09/09/17 11:15; Start 09/09/17 at 11:00; Stop 09/09/17 at 11:03; Status DC Metoclopramide HCl (Reglan Inj) 5 mg Q8HR IV PUSH Last administered on 22:55; Start 09/09/17 at 22:00; Stop 09/11/17 at 10:25; Status DC Potassium Chloride 100 ml @ 50 mls/hr Q2H IV Last administered on 09/10/17 16 :01; Start 09/10/17 at 13:00; Stop 09/10/17 at 16:59; Status DC Insulin Detemir (Levemir Inj) 12 units Q12H SQ Last administered on 09/17/17 10:42; Start 09/11/17 at 22:00; Stop 09/17/17 at 15:27; Status DC Oxycodone HCl (Roxicodone Intensol Liq) 5 mg Q4H PO Last administered on 08:28; Start 09/11/17 at 13:00; Stop 09/17/17 at 12:47; Status DC Propranolol HCl (Inderal) 30 mg Q6HR PO Last administered on 09/17/17 04:23; Start 09/11/17 at 12:00; Stop 09/17/17 at 12:47; Status DC Quetiapine Fumarate (SEROquel) 50 mg Q8HR PO Last administered on 09/12/17 21: 37; Start 09/11/17 at 14:00; Stop 09/25/17 at 09:29; Status DC Modafinil (Provigil) 200 mg DAILY PO Last administered on 09/12/17 09:07; Start 09/11/17 at 12:00; Stop 09/25/17 at 09:30; Status DC Water (Free Water) VOLUME: 200 ML Q4HR G-TUBE Last administered on 09/18/17 08 :00; Start 09/11/17 at 12:00; Stop 09/18/17 at 11:53; Status DC Famotidine (Pepcid) 10 mg BID NG Last administered on 09/23/17 20:42; Start 09/11/17 at 21:00; Stop 09/24/17 at 09:10; Status DC Heparin Sodium (Porcine) (Heparin Inj) 5,000 units Q12HR SQ Last administered on 09/28/17 08:20; Start 09/11/17 at 21:00; Status Future Hold Lorazepam (Ativan Inj) 1 mg ONCE ONCE IV PUSH Last administered on 09/13/17 02:57; Start 09/13/17 at 02:45; Stop 09/13/17 at 02:46; Status DC Pharmacy Profile Note 0 ml @ 0 mls/hr UNSCH OTHER ; Start 09/13/17 at 02:45; Stop 09/17/17 at 10:11; Status DC Piperacillin Sod/ Tazobactam Sod 50 ml @ 100 mls/hr Q6H IV Last administered on 09/19/17 20:26; Start 09/13/17 at 03:00; Stop 09/19/17 at 23:00; Status DC Nicardipine HCl 25 mg/Sodium Chloride 250 ml @ 50 mls/hr TITRATE PRN IV Blood pressure management Last administered on 09/17/17 04:57; Start 09/13/17 at 02: 45; Stop 09/17/17 at 12:47; Status DC Dantrolene Sodium (Dantrium Inj) 70 mg ONCE ONCE IV Last administered on 03:55; Start 09/13/17 at 03:00; Stop 09/13/17 at 03:01; Status DC Vancomycin HCl 2000 mg/Sodium Chloride 520 ml @ 250 mls/hr ONCE ONCE IV Last administered on 09/13/17 05:52; Start 09/13/17 at 04:00; Stop 09/13/17 at 06:04 ; Status DC Vancomycin HCl 2500 mg/Sodium Chloride 525 ml @ 250 mls/hr ONCE ONCE IV Last administered on 09/14/17 12:29; Start 09/14/17 at 12:00; Stop 09/14/17 at 14:05 ; Status DC Potassium Chloride 100 ml @ 50 mls/hr Q2H IV Last administered on 09/15/17 10 :22; Start 09/15/17 at 08:15; Stop 09/15/17 at 12:14; Status DC Dexamethasone Sodium Phosphate (Decadron Inj) 6 mg Q6HR IV PUSH Last administered on 09/17/17 04:24; Start 09/15/17 at 14:15; Stop 09/17/17 at 12:35 ; Status DC Diphenhydramine HCl (Benadryl Inj) 25 mg Q6H IV PUSH Last administered on 08:06; Start 09/15/17 at 15:00; Stop 09/18/17 at 14:59; Status DC Lidocaine HCl (Lidocaine Pf 2% Neb) 1 ml Q6HR NEB PRN NEB cough/bronchial irritation; Start 09/16/17 at 11:30 Vancomycin HCl 1500 mg/Sodium Chloride 515 ml @ 257.5 mls/ hr ONCE ONCE IV Last administered on 09/16/17 17:07; Start 09/16/17 at 15:00; Stop 09/16/17 at 16:59; Status DC Insulin Human Regular (NovoLIN R SUPPLEMENTAL SCALE) 5 ONCE ONCE SQ Last administered on 09/16/17 18:14; Start 09/16/17 at 18:00; Stop 09/16/17 at 18:01 ; Status DC Labetalol HCl (Trandate) 300 mg Q8HR PEG Last administered on 09/25/17 05:26 ; Start 09/17/17 at 14:00; Stop 09/25/17 at 09:31; Status DC Labetalol HCl (Trandate) 300 mg NOW ONCE PEG Last administered on 09/17/17 04 :23; Start 09/17/17 at 04:15; Stop 09/17/17 at 04:16; Status DC Dexamethasone Sodium Phosphate (Decadron Inj) 6 mg Q12HR IV PUSH Last administered on 09/20/17 09:26; Start 09/17/17 at 21:00; Stop 09/20/17 at 20: 59; Status DC Albuterol/ Ipratropium (Duoneb Neb) 1 ampule Q6HR NEB INH Last administered on 09/21/17 08:25; Start 09/17/17 at 16:00; Stop 09/21/17 at 15:59; Status DC Oxycodone HCl (Roxicodone Intensol Liq) 5 mg Q6H PO Last administered on 08:05; Start 09/17/17 at 15:00; Stop 09/18/17 at 12:04; Status DC Propranolol HCl (Inderal) 40 mg Q6HR PO Last administered on 09/25/17 05:26; Start 09/17/17 at 18:00; Stop 09/25/17 at 09:29; Status DC Insulin Detemir (Levemir Inj) 15 units Q12H SQ Last administered on 09/18/17 09:49; Start 09/17/17 at 22:00; Stop 09/18/17 at 11:53; Status DC Water (Free Water) 300 ml Q4HR G-TUBE Last administered on 10/24/17at 08:00; Start 09/18/17 at 12:00 Insulin Detemir (Levemir Inj) 18 units Q12H SQ Last administered on 09/18/17 20:09; Start 09/18/17 at 22:00; Stop 09/19/17 at 08:52; Status DC Dextrose (D50w (Vial) Inj) 25 ml UNSCH PRN IV PUSH HYPOGLYCEMIA-SEE COMMENTS; Start 09/18/17 at 12:00 Insulin Human Regular (NovoLIN R SUPPLEMENTAL SCALE) 1 Q4HR SQ Last administered on 09/25/17 04:09; Start 09/18/17 at 12:00; Stop 09/25/17 at 09: 28; Status DC Oxycodone HCl (Roxicodone Intensol Liq) 5 mg Q6H PRN PO pain 6-10 Last administered on 09/18/17 22:56; Start 09/18/17 at 15:00; Stop 09/25/17 at 09: 29; Status DC Hydralazine HCl (Apresoline) 50 mg Q8HR PO Last administered on 09/19/17 05: 12; Start 09/18/17 at 14:00; Stop 09/19/17 at 08:52; Status DC Insulin Detemir (Levemir Inj) 20 units Q12H SQ Last administered on 10/24/17 09:11; Start 09/19/17 at 10:00 Hydralazine HCl (Apresoline) 100 mg Q8HR PO Last administered on 09/25/17 05: 31; Start 09/19/17 at 14:00; Stop 09/25/17 at 09:29; Status DC Dextrose 1,000 ml @ 42 mls/hr [id number] IV Last administered on 09/20/17 09:25 ; Start 09/19/17 at 08:45; Stop 09/20/17 at 11:39; Status DC Sodium Chloride 38.5 meq/Sterile Water 1,009.625 ml @ 42 mls/hr Q24H IV Last administered on 09/25/17 06:01; Start 09/20/17 at 13:00; Stop 09/25/17 at 09 :24; Status DC Acetaminophen 0 ml @ As Directed STK-MED ONCE IV ; Start 09/21/17 at 09:42; Stop 09/21/17 at 09:43; Status DC Hydromorphone HCl (Dilaudid Pf Inj) 2 mg STK-MED ONCE .ROUTE ; Start 09/21/17 at 09:43; Stop 09/21/17 at 09:44; Status DC Sodium Polystyrene Sulfonate (Kayexalate Liq) 30 gm Q2HR PO Last administered on 09/21/17 19:53; Start 09/21/17 at 16:00; Stop 09/21/17 at 21:00; Status DC Famotidine (Pepcid) 20 mg BID NG Last administered on 10/24/17 09:10; Start 09/24/17 at 09:30 Morphine Sulfate (Morphine Inj) 2 mg Q2H PRN IV PUSH breakthru pain; Start at 16:30 Metoprolol Tartrate (Lopressor) 25 mg Q8H PO Last administered on 09/25/17 05 :25; Start 09/25/17 at 05:00; Stop 09/25/17 at 09:29; Status DC Potassium Bicarb/ Potassium Chloride (K-Lyte Cl Eff) 50 meq ONCE ONCE PO Last administered on 09/25/17 05:25; Start 09/25/17 at 04:30; Stop 09/25/17 at 04:31; Status DC Sodium Chloride 1,000 ml @ 42 mls/hr [id number] IV ; Start 09/25/17 at 10:00; Stop 09/25/17 at 10:00; Status DC Glucagon (Glucagon Inj) 1 mg UNSCH PRN OTHER HYPOGLYCEMIA-SEE COMMENTS; Start 09/25/17 at 09:30 Insulin Aspart (NovoLOG SUPPLEMENTAL SCALE) 1 Q6H SQ Last administered on 06:00; Start 09/25/17 at 12:00 Acetaminophen (Tylenol) 650 mg Q6H PRN G-TUBE PAIN 1-5 AND/OR FEVER >101F Last administered on 10/15/17 23:34; Start 09/25/17 at 12:45 Amlodipine Besylate (Norvasc) 10 mg DAILY G-TUBE Last administered on 09:10; Start 09/26/17 at 09:00 Atorvastatin Calcium (Lipitor) 40 mg HS DOBHOFF Last administered on 10/23/17 21:29; Start 09/25/17 at 21:00 Clonidine (Catapres) 0.3 mg Q8HR G-TUBE Last administered on 10/24/17 06:04; Start 09/25/17 at 14:00 Senna/Docusate Sodium (Melina-Colace) 1 tab BID G-TUBE Last administered on 09:10; Start 09/25/17 at 21:00 Hydralazine HCl (Apresoline) 100 mg Q8HR G-TUBE Last administered on 10/24/17 06:04; Start 09/25/17 at 14:00 Metoprolol Tartrate (Lopressor) 25 mg Q8H G-TUBE ; Start 09/25/17 at 13:00; Stop 09/25/17 at 13:00; Status DC Oxycodone HCl (Roxicodone Intensol Liq) 5 mg Q6H PRN G-TUBE pain 6-10 Last administered on 10/22/17 22:37; Start 09/25/17 at 15:00 Polyethylene Glycol (Miralax) 17 gm BID G-TUBE Last administered on 10/24/17 09:10; Start 09/25/17 at 21:00 Propranolol HCl (Inderal) 40 mg Q6HR G-TUBE Last administered on 10/24/17 06: 04; Start 09/25/17 at 12:00 Quetiapine Fumarate (SEROquel) 50 mg Q8HR G-TUBE Last administered on 06:04; Start 09/25/17 at 14:00 Albuterol Sulfate (Albuterol Neb) 2.5 mg Q2HR NEB PRN NEB sob/wheeze Last administered on 10/11/17 17:07; Start 09/25/17 at 13:30 Cefuroxime Axetil (Ceftin) 500 mg Q12HR PO Last administered on 10/03/17t 09: 03; Start 09/26/17 at 11:15; Stop 10/03/17 at 11:14; Status DC Sodium Chloride 250 ml @ 15 mls/hr ONCE ONCE IV ; Start 09/28/17 at 10:15; Stop 09/28/17 at 16:53; Status DC Chlorhexidine Gluconate (Peridex 0.12% Liq) 15 ml TID SWISH-SPIT Last administered on 10/24/17 09:00; Start 10/11/17 at 18:00 Methylprednisolone Sodium Succinate (SoluMEDROL INJ) 125 mg ONCE ONCE IV PUSH Last administered on 10/20/17at 13:09; Start 10/20/17 at 12:15; Stop 10/20/17 at 12:16; Status DC Albuterol/ Ipratropium (Duoneb Neb) 1 ampule Q6HR NEB NEB Last administered on 10/24/17at 08:46; Start 10/23/17 at 16:00 A/P Problem List: (1) Intracranial hemorrhage ICD Code: I62.9 - Nontraumatic intracranial hemorrhage, unspecified Status: Acute Assessment and Plan Assessment and Plan A/P Acute encephalopathy - improving. Left Thalamic Hemorrhage Intracerebral Hemorrhage - Repeat CT of the head showed improving bleed - Neurosurgery follow-up appreciated; stable for dc to SNF per neurosurgery. - Continue rehabilitation efforts with PT, OT, speech - On Seroquel to control agitated delirium. Roxicodone as needed for pain Anemia likely due to chronic disease. H/H fairly stable. will monitor periodically. Healthcare associated pneumonia finished the course of antibiotic. UTI: treated. Respiratory failure s/p trach - Tolerating T piece - CT of the chest 09/13/17 -LLL infiltrate. Repeat chest x-ray on 09/26/17 shows stable left lower lobe consolidation - continue neb treatment. -Patient had angioedema, source unclear and was seen by ENT. He was treated with steroids. Per ENT, expect slow improvement. This is resolving. -Appreciate pulmonology following for trach management Respiratory failure s/p trach -Did not tolerate trach 10/14/17, -trial of trach capping .... Will give Solu-Medrol 125 mg IV 1 now and attempt another trial this afternoon 10/20/17 HAS PASSY DIANA VALVE IN PLACE AND USING IT WEL Hyperglycemia - persistent. - Continue Levemir 20 units SQ q12h - Continue sliding scale insulin with Accu-Cheks. - hemoglobin A1c 9.1. Hypertension - Intermittent hypertension now well controlled - Continue clonidine, amlodipine and propranolol - Continue hydralazine. Nutrition status: - Status post PEG tube continue tube feeds - Having bowel movements - Continue Free water Acute kidney injury, most likely has CKD per nephrology: Renal function stabilized. - monitor renal function periodically. Physical deconditioning/right sided hemiparesis - OOB to stretcher chair daily - PT/OT following AND SPEECH RIGHT SIDE NOW HAS MORE MOVEMENT IN UE AND LE ON THE RIGHT PROPH: - SCD's. Pepcid for GI prophylaxis Discharge Planning dc planning to SNF VS INPATIENT REHAB in PROCESS CONTINUE PT AND OT AND ST Discharge Planning Await case management ability to find SNF VS INPATIENT REHAB FOR AGGRESSIVE PT AND OT AND ST Kalen Rice DO Oct 24, 2017 10:43
[2017-10-24] MEDS: oxyCODONE HCL ORAL CONC 5 MG/0.25 ML SYRINGE G-TUBE PRN ×2 (16:52→22:55)
[2017-10-24] MEDS: ATORVASTATIN 40 MG TAB DOBHOFF SCH (20:43)
[2017-10-24] MEDS: SODIUM CHLORIDE 0.9% FLUSH 10 ML FLUSH IVF PRN (20:44)
[2017-10-25] VITALS: BP 119/71; PULSE 80; PULSE 81; RESP 18; TEMP 98.9; O2SAT 98
[2017-10-25 04:00] VITALS: BP 114/67; PULSE 79; PULSE 82; RESP 18; TEMP 98.2; O2SAT 99
[2017-10-25] MEDS: FREE WATER G-TUBE SCH ×6 (04:00→21:38)
[2017-10-25] MEDS: RESP: ALBUTEROL 2.5 MG/IPRATROPIUM 0.5 MG NEB (SCH) NEB ×3 (05:36→21:09)
[2017-10-25] MEDS: INSULIN ASPART SUPPLEMENTAL SCALE SQ SCH ×4 (06:04→18:43)
[2017-10-25] MEDS: cloNIDine HCL 0.3 MG TAB G-TUBE SCH ×3 (06:04→21:38)
[2017-10-25] MEDS: QUEtiapine FUMARATE 25 MG TAB G-TUBE SCH ×3 (06:04→21:38)
[2017-10-25] MEDS: hydrALAZINE HCL 100 MG TAB G-TUBE SCH ×3 (06:04→21:37)
[2017-10-25] MEDS: PROPRANOLOL HCL 40 MG TAB G-TUBE SCH ×4 (06:04→18:43)
[2017-10-25 08:00] VITALS: BP 119/77; PULSE 77; PULSE 81; RESP 18; TEMP 99.8; O2SAT 93
[2017-10-25] MEDS: POLYETHYLENE GLYCOL 17 GM PKG G-TUBE SCH ×2 (09:00→21:00)
[2017-10-25] MEDS: CHLORHEXIDINE GLUCONATE 0.12% 15 ML CUP SWISH-SPIT SCH ×3 (09:00→18:00)
[2017-10-25] MEDS: FAMOTIDINE 20 MG TAB NG SCH ×2 (10:07→21:37)
[2017-10-25] MEDS: DOCUSATE SODIUM 50 MG/SENNA 8.6 MG TAB G-TUBE SCH ×2 (10:07→21:00)
[2017-10-25] MEDS: FLUTICASONE PROPIONATE 50 MCG/ACT 16 GM NASAL SPRAY EACH NARE SCH (10:08)
[2017-10-25] MEDS: INSULIN DETEMIR 100 UNITS/ML VIAL SQ SCH ×2 (10:08→21:39)
[2017-10-25 12:28] VITALS: BP 132/73; PULSE 76; RESP 18; TEMP 99.2; O2SAT 93
--- NOTE | 2017-10-25 13:15 | HHI.PR ---
Subjective Remarks 1-11 Patient seen and examined Jal Of trach capping unsuccessful AWAIT SAFE PLACEMENT RIGHT SIDE IS LESS FLACCID 1-12 MOVING RIGHT SIDE MORE- NOT TOTALLY FLACCID MOVING LEFT SIDE WELL CONTINUE PT AND OT 1-13 TOLERATING PASSY DIANA VALVE MOVING RIGHT SIDE MORE TO RUIZ WHEN BED AVAILABLE 1-14 HAS PASSY DIANA VALVE IN PLACE NO NEW COMPLAINTS DW RN AND PT MOVING RIDE SIDE SOME NOW AWAIT RUIZ PLACEMENT 1-15 WANTS TO EAT BUT NEEDS SPEECH CLEARANCE FOR THAT DW RN AND PT HOPEFULLY TO RUIZ SOON NEEDS PT AND OT AND ST Objective Vitals Vital Signs Date Time Temp Pulse Resp B/P (MAP) Pulse Ox O2 Delivery O2 Flow Rate FiO2 10/25/17 12:28 99.2 76 18 132/73 (92) 93 10/25/17 08:00 99.8 81 18 119/77 (91) 93 10/25/17 08:00 77 10/25/17 04:00 98.2 79 18 114/67 (83) 99 10/25/17 04:00 82 10/25/17 04:00 T-Piece 6.00 28 Humidified 10/25/17 00:00 80 10/25/17 00:00 98.9 81 18 119/71 (87) 98 10/24/17 23:00 Trach Collar 6.00 28 Humidified 10/24/17 21:56 98 Trach Collar 6.00 21 10/24/17 20:00 Nasal Cannula 3.00 Humidified 10/24/17 20:00 98.2 81 18 134/73 (93) 94 10/24/17 20:00 81 10/24/17 16:09 98.9 81 20 119/68 (85) 94 I/O 10/24/17 10/24/17 10/24/17 10/25/17 10/25/17 10/25/17 07:00 15:00 23:00 07:00 15:00 23:00 Intake Total 1738 ml 1676 ml Output Total 1850 ml 1000 ml 300 ml Balance -112 ml -1000 ml 1676 ml -300 ml Intake Oral 0 ml Tube Feeding 778 ml 746 ml Tube Irrigant 60 ml 30 ml Other 900 ml 900 ml Output Urine Total 1850 ml 1000 ml 300 ml # Bowel Movements 1 0 Result Diagram: 10/24/17 0703 10/24/17 0705 Other Results Laboratory Tests Test 10/24/17 07:03 10/24/17 07:05 White Blood Count 6.6 TH/MM3 Red Blood Count 3.42 MIL/MM3 Hemoglobin 9.0 GM/DL Hematocrit 29.4 % Mean Corpuscular Volume 85.8 FL Mean Corpuscular Hemoglobin 26.4 PG Mean Corpuscular Hemoglobin Concent 30.7 % Red Cell Distribution Width 15.6 % Platelet Count 313 TH/MM3 Mean Platelet Volume 9.3 FL Neutrophils (%) (Auto) 68.4 % Lymphocytes (%) (Auto) 20.3 % Monocytes (%) (Auto) 9.6 % Eosinophils (%) (Auto) 1.4 % Basophils (%) (Auto) 0.3 % Neutrophils # (Auto) 4.5 TH/MM3 Lymphocytes # (Auto) 1.3 TH/MM3 Monocytes # (Auto) 0.6 TH/MM3 Eosinophils # (Auto) 0.1 TH/MM3 Basophils # (Auto) 0.0 TH/MM3 CBC Comment DIFF FINAL Differential Comment Blood Urea Nitrogen 21 MG/DL Creatinine 0.84 MG/DL Random Glucose 124 MG/DL Total Protein 6.5 GM/DL Albumin 2.4 GM/DL Calcium Level 8.8 MG/DL Phosphorus Level 3.9 MG/DL Magnesium Level 2.2 MG/DL Alkaline Phosphatase 85 U/L Aspartate Amino Transf (AST/SGOT) 33 U/L Alanine Aminotransferase (ALT/SGPT) 30 U/L Total Bilirubin 0.3 MG/DL Sodium Level 138 MEQ/L Potassium Level 4.2 MEQ/L Chloride Level 102 MEQ/L Carbon Dioxide Level 30.3 MEQ/L Anion Gap 6 MEQ/L Estimat Glomerular Filtration Rate 120 ML/MIN Imaging Last Impressions Chest X-Ray 10/24/17 0600 Signed Impressions: Service Date/Time: Tuesday, October 24, 2017 04:21 - CONCLUSION: No significant interval change. Iain Fragoso MD Maxillofacial CT 09/16/17 0000 Signed Impressions: Service Date/Time: September 01:03 - CONCLUSION: 1. Evidence of acute pansinusitis. 2. Opacification of multiple bilateral mastoid air cells most characteristic of mastoiditis. 3. Mildly prominent cervical chain nodes which may be reactive. Angelo Conn MD Upper Extremity Ultrasound 09/15/17 0000 Signed Impressions: Service Date/Time: Friday, September 15, 2017 17:14 - CONCLUSION: Occlusive thrombus within the left cephalic vein and nonocclusive thrombus within the right cephalic vein. Ric Jack MD Lower Extremity Ultrasound 09/15/17 0000 Signed Impressions: Service Date/Time: Friday, September 15, 2017 16:58 - CONCLUSION: No evidence of DVT within the lower extremities. Ric Jack MD Head CT 09/13/17 0800 Signed Impressions: Service Date/Time: Wednesday, September 13, 2017 09:17 - CONCLUSION: 1. Resolving left basal ganglia hematoma Natan Lagos MD Chest CT 09/13/17 0000 Signed Impressions: Service Date/Time: Wednesday, September 13, 2017 09:28 - CONCLUSION: 1. Bibasilar and left lingular dependent atelectatic changes. Lungs are otherwise clear. 2. Tracheostomy tube with the tip probably positioned above the connie. 3. Compensated cardiomegaly. Reyes Guzman MD Abdomen/Pelvis CT 09/13/17 0000 Signed Impressions: Service Date/Time: Wednesday, September 13, 2017 09:28 - CONCLUSION: 1. There is some stranding in the retroperitoneal perivascular tissues around the distal aorta extending into the bifurcation with a regional borderline lymph nodes. Findings are characteristic of a nonspecific inflammatory process. Findings could represent early retroperitoneal fibrosis.. 2. Urinary bladder is decompressed with some mural thickening in pericystic inflammatory changes possibly representing a chronic cystitis. Nondependent air could be associated with a recent catheterization/instrumentation. 3. Small umbilical and right inguinal hernias only contain fat. 4. Bilateral dependent basilar and left lingular atelectatic changes. Heart size is borderline prominent. 5. Otherwise , bowel is intact without obstruction to explain abdominal distention Reyes Guzman MD Abdomen X-Ray 09/10/17 0600 Signed Impressions: Service Date/Time: Sunday, September 10, 2017 03:56 - CONCLUSION: No significant abnormality is identified. There is mild distention of the colon but there are no findings to suggest bowel obstruction or significant ileus. Ignacio Underwood MD Liver Ultrasound 09/07/17 0000 Signed Impressions: Service Date/Time: Thursday, September 07, 2017 12:37 - CONCLUSION: 1. Unremarkable sonographic appearance of the liver. No evidence for hepatic volume loss or intrahepatic ductal dilatation. 2. No sonographic evidence for cholelithiasis or acute cholecystitis. 3. Mild increased right renal echogenicity may reflect medical renal disease. 4. Small bilateral pleural effusions. 5. Pancreas and inferior pole of the right kidney are obscured by bowel gas and therefore not evaluated. Darrell Robles MD Renal Ultrasound 08/31/17 0000 Signed Impressions: Service Date/Time: Thursday, August 31, 2017 17:42 - CONCLUSION: 1. No evidence of hydronephrosis on either side. 2. Solitary linear echogenic focus in the upper pole parenchyma of the right kidney has similar features to prior examination in January 2017 and possibly represents a calcification. David Snell MD Neck CTA 08/28/17 2347 Signed Impressions: Service Date/Time: Tuesday, August 29, 2017 00:13 - CONCLUSION: Negative carotid CTA. David Snell MD Head CTA 08/28/17 2347 Signed Impressions: Service Date/Time: Tuesday, August 29, 2017 00:13 - CONCLUSION: 1. No evidence of vessel truncation or aneurysm. 2. No abnormal vessels in the region of the large left thalamic hemorrhage. David Snell MD Objective Remarks GENERAL: Awake and alert moves left side- LESS flaccid on the right side - MOVING SOME-has tracheostomy in place and PEG tube in place SKIN: Warm and dry. HEAD: Atraumatic. Normocephalic. EYES: Pupils equal and round. No scleral icterus. No injection or drainage. ENT: No nasal bleeding or discharge. Mucous membranes pink and moist. NECK: Trachea midline. No JVD. Tracheostomy in place WITH PASSY DIANA VALVE IN PLACE NOW CARDIOVASCULAR: Regular rate and rhythm. S1 and S2 no S3 or S4 RESPIRATORY: No accessory muscle use.. Breath sounds equal bilaterally. Coarse breath sounds bilaterally GASTROINTESTINAL: Abdomen soft, non-tender, nondistended. Hepatic and splenic margins not palpable. PEG tube CONDOM CATHETER IN PLACE MUSCULOSKELETAL: Extremities without clubbing, cyanosis, or edema. No obvious deformities. Right side flaccid moves left side NEUROLOGICAL: Awake and alert. No obvious cranial nerve deficits. Motor grossly within normal limits. Five out of 5 muscle strength in the left arms and legs--LESS flaccid on the right- NO MOVING SOME. USING PASSY DIANA VALVE NOW PSYCHIATRIC: Appropriate mood and affect; insight and judgment BETTER- HAS PASSY DIANA VALVE CAN COMMUNICATE BETTER Procedures Tracheostomy and PEG placement Medications and IVs Current Medications Sodium Chloride 1,000 ml @ 70 mls/hr [id number] ONCE IV ; Start 08/28/17 at 23:47 ; Stop 08/29/17 at 14:04; Status DC Nicardipine HCl 25 mg/Sodium Chloride 250 ml @ 50 mls/hr TITRATE PRN IV Blood pressure management; Start 08/29/17 at 00:00; Stop 08/29/17 at 00:48; Status DC Propofol 100 ml @ 0 mls/hr TITRATE PRN IV SEDATION; Start 08/29/17 at 00:00; Stop 08/29/17 at 00:40; Status DC Propofol 100 ml @ As Directed STK-MED ONCE .ROUTE ; Start 08/28/17 at 23:57; Stop 08/28/17 at 23:58; Status DC Etomidate (Amidate Inj) 20 mg ONCE ONCE IVP ; Start 08/29/17 at 00:00; Stop 08/29/17 at 00:01; Status DC Succinylcholine Chloride (Quelicin Inj) 100 mg ONCE ONCE IV PUSH ; Start 08/29 at 00:00; Stop 08/29/17 at 00:01; Status DC Sodium Chloride (NS Flush) 2 ml UNSCH PRN IVF FLUSH AFTER USING IV ACCESS Last administered on 10/24/17at 20:44; Start 08/29/17 at 00:00 Rocuronium [place] (Zemuron Inj) 50 mg BOLUS ONCE IV ; Start 08/29/17 at 00:15 ; Stop 08/29/17 at 00:17; Status DC Iohexol (Omnipaque 350 Inj) 100 ml STK-MED ONCE IVCONTRAST Last administered on 08/29/17t 00:18; Start 08/29/17 at 00:18; Stop 08/29/17 at 00:19; Status DC Chlorhexidine Gluconate (Peridex 0.12% Liq) 15 ml BID@08,20 MT Last administered on 10/11/17at 09:59; Start 08/29/17 at 08:00; Stop 10/11/17 at 14:08 ; Status DC Propofol 100 ml @ 3 mls/hr TITRATE PRN IV SEDATION; Start 08/29/17 at 00:45; Stop 08/29/17 at 04:17; Status DC Nicardipine HCl (Cardene Inj) 25 mg STK-MED ONCE .ROUTE ; Start 08/29/17 at 00: 36; Stop 08/29/17 at 00:37; Status DC Nicardipine HCl 25 mg/Sodium Chloride 250 ml @ 50 mls/hr TITRATE PRN IV BLOOD PRESSURE MANAGEMENT Last administered on 09/02/17 09:52; Start 08/29/17 at 00 :45; Stop 09/02/17 at 21:12; Status DC Labetalol HCl (Trandate Inj) 10 mg Q20M PRN IV PUSH SBP>140, DBP>90 Last administered on 09/19/17 02:16; Start 08/29/17 at 00:45 Amlodipine Besylate (Norvasc) 10 mg DAILY PO Last administered on 09/24/17 09 :14; Start 08/29/17 at 09:00; Stop 09/25/17 at 09:29; Status DC Lisinopril (Prinivil) 40 mg DAILY PO Last administered on 09/04/17 09:07; Start 08/29/17 at 09:00; Stop 09/04/17 at 12:18; Status DC Sodium Chloride 1,000 ml @ 75 mls/hr [id number] IV Last administered on 06:03; Start 08/29/17 at 00:43; Stop 08/31/17 at 11:07; Status DC Acetaminophen (Tylenol) 650 mg Q6H PRN PO PAIN 1-5 AND/OR FEVER >101F Last administered on 09/23/17 03:09; Start 08/29/17 at 00:45; Stop 09/25/17 at 09 :29; Status DC Morphine Sulfate (Morphine Inj) 2 mg Q2H PRN IV PUSH PAIN SCALE 6 TO 10 Last administered on 09/17/17 03:33; Start 08/29/17 at 00:45; Stop 09/24/17 at 16: 27; Status DC Pantoprazole Sodium (Protonix Inj) 40 mg DAILY IV PUSH Last administered on 09:15; Start 08/29/17 at 09:00; Stop 09/11/17 at 10:25; Status DC Ondansetron HCl (Zofran Inj) 4 mg Q6H PRN IV PUSH NAUSEA OR VOMITING Last administered on 09/11/17 14:18; Start 08/29/17 at 00:45 Albuterol/ Ipratropium (Duoneb Neb) 1 ampule Q4HR NEB PRN INH WHEEZING Last administered on 09/15/17 11:55; Start 08/29/17 at 00:45; Stop 09/17/17 at 12: 47; Status DC Miscellaneous Information 1 [id number] Last administered on 08/29/17 01:00; Start 08/29/17 at 00:45; Stop 10/24/17 at 04:26; Status DC Chlorhexidine Gluconate (Chlorhexidine 2% Cloth) Taper DAILY@04 TOP ; Start at 04:00; Stop 10/24/17 at 04:26; Status DC Chlorhexidine Gluconate (Chlorhexidine 2% Cloth) 3 pack UNSCH PRN TOP HYGIENIC CARE; Start 08/29/17 at 00:45; Stop 10/24/17 at 04:26; Status DC Senna/Docusate Sodium (Melina-Colace) 1 tab BID PO Last administered on 09:15; Start 08/29/17 at 09:00; Stop 08/31/17 at 11:08; Status DC Magnesium Hydroxide (Milk Of Magnesia Liq) 30 ml Q12H PRN PO Mild constipation ; Start 08/29/17 at 00:45; Stop 08/31/17 at 11:08; Status DC Sennosides (Senokot) 17.2 mg Q12H PRN PO Moderate constipation; Start at 00:45; Stop 08/31/17 at 11:08; Status DC Bisacodyl (Dulcolax Supp) 10 mg DAILY PRN RECTAL SEVERE CONSITIPATION; Start 08/29/17 at 00:45; Stop 08/31/17 at 11:08; Status DC Lactulose (Lactulose Liq) 30 ml DAILY PRN PO SEVERE CONSITIPATION; Start 08/29 at 00:45; Stop 08/31/17 at 11:08; Status DC Fentanyl Citrate 250 ml @ 5 mls/hr TITRATE PRN IV SEDATION Last administered on 09/11/17 06:14; Start 08/29/17 at 00:45; Stop 09/11/17 at 10:20; Status DC Fentanyl Citrate 250 ml @ As Directed STK-MED ONCE .ROUTE ; Start 08/29/17 at 01:30; Stop 08/29/17 at 04:10; Status DC Propofol 100 ml @ 3 mls/hr TITRATE PRN IV SEDATION Last administered on 07:37; Start 08/29/17 at 04:30; Stop 08/31/17 at 11:08; Status DC Rocuronium [place] (Zemuron Inj) 100 mg STAT ONCE IV Last administered on 02:00; Start 08/29/17 at 02:00; Stop 08/29/17 at 04:18; Status DC Atorvastatin Calcium (Lipitor) 40 mg HS PO Last administered on 09/24/17 20: 43; Start 08/29/17 at 21:00; Stop 09/25/17 at 09:29; Status DC Hydrochlorothiazide (Hydrodiuril) 25 mg DAILY PO Last administered on 10:37; Start 08/29/17 at 09:00; Stop 09/08/17 at 11:02; Status DC Metoprolol Tartrate (Lopressor) 100 mg BID PO Last administered on 08/31/17 09:15; Start 08/29/17 at 09:00; Stop 09/11/17 at 10:20; Status DC Clonidine (Catapres) 0.1 mg Q8HR PO Last administered on 09/06/17 04:55; Start 08/29/17 at 06:00; Stop 09/06/17 at 11:33; Status DC Sodium Chloride 1,000 ml @ 999 mls/hr Q1H1M ONCE IV Last administered on 08/29 06:10; Start 08/29/17 at 06:30; Stop 08/29/17 at 07:30; Status DC Magnesium Oxide (Mag-Ox) 800 mg UNSCH PRN PO For Magnesium 1.2 - 1.6 mg/dL; Start 08/29/17 at 13:15; Stop 08/30/17 at 15:34; Status DC Magnesium Sulfate 4 gm/Sodium Chloride 100 ml @ 50 mls/hr UNSCH PRN IV For Magnesium 0.9 - 1.1 mg/dL; Start 08/29/17 at 13:15; Stop 08/30/17 at 15:34; Status DC Magnesium Sulfate 2 gm/Sodium Chloride 100 ml @ 50 mls/hr UNSCH PRN IV For Magnesium 1.2 - 1.6 mg/dL; Start 08/29/17 at 13:15; Stop 08/30/17 at 15:34; Status DC Potassium Chloride 100 ml @ 50 mls/hr Q2H PRN IV For Potassium 2.8 - 3.2 mEq/ L Last administered on 08/29/17t 17:06; Start 08/29/17 at 13:15; Stop at 15:34; Status DC Potassium Chloride 100 ml @ 50 mls/hr Q2H PRN IV For Potassium 3.3 - 3.5 mEq/ L Last administered on 08/30/17t 06:13; Start 08/29/17 at 13:15; Stop at 15:34; Status DC Potassium Chloride 100 ml @ 50 mls/hr Q2H PRN IV For Potassium 2.8 - 3.2 mEq/L ; Start 08/29/17 at 13:15; Stop 08/30/17 at 15:34; Status DC Potassium Chloride 100 ml @ 25 mls/hr UNSCH PRN IV For Potassium 3.3 - 3.5 mEq /L; Start 08/29/17 at 13:15; Stop 08/30/17 at 15:34; Status DC Potassium Phosphate (K-Phos) 2,000 mg Q4H PRN PO For Phosphorus < 2.5 mg/dL; Start 08/29/17 at 13:15; Stop 08/30/17 at 15:34; Status DC Potassium Phosphate (K-Phos) 2,000 mg UNSCH PRN PO/TUBE SEE LABEL COMMENTS; Start 08/29/17 at 13:15; Stop 08/30/17 at 15:34; Status DC Potassium Phosphate 30 mmol/ Sodium Chloride 260 ml @ 42 mls/hr UNSCH PRN IV SEE LABEL COMMENTS; Start 08/29/17 at 13:15; Stop 08/30/17 at 15:34; Status DC Sodium Phosphate 30 mmol/Sodium Chloride 250 ml @ 42 mls/hr UNSCH PRN IV For Phosphorus < 2.5 mg/dL; Start 08/29/17 at 13:15; Stop 08/30/17 at 15:34; Status DC Dextrose (D50w (Vial) Inj) 25 ml UNSCH PRN IV PUSH HYPOGLYCEMIA-SEE COMMENTS; Start 08/30/17 at 08:15; Stop 09/18/17 at 11:53; Status DC Insulin Human Regular (NovoLIN R SUPPLEMENTAL SCALE) 1 Q6HR SQ Last administered on 09/18/17t 05:34; Start 08/30/17 at 12:00; Stop 09/18/17 at 11: 53; Status DC Magnesium Oxide (Mag-Ox) 800 mg UNSCH PRN PO For Magnesium 1.2 - 1.6 mg/dL; Start 08/30/17 at 08:15; Stop 08/31/17 at 13:02; Status DC Magnesium Sulfate 4 gm/Sodium Chloride 100 ml @ 50 mls/hr UNSCH PRN IV For Magnesium 0.9 - 1.1 mg/dL; Start 08/30/17 at 08:15; Stop 08/31/17 at 13:02; Status DC Magnesium Sulfate 2 gm/Sodium Chloride 100 ml @ 50 mls/hr UNSCH PRN IV For Magnesium 1.2 - 1.6 mg/dL; Start 08/30/17 at 08:15; Stop 08/31/17 at 13:02; Status DC Potassium Chloride 100 ml @ 50 mls/hr Q2H PRN IV For Potassium 2.8 - 3.2 mEq/L ; Start 08/30/17 at 08:15; Stop 08/31/17 at 13:02; Status DC Potassium Chloride 100 ml @ 50 mls/hr Q2H PRN IV For Potassium 3.3 - 3.5 mEq/L ; Start 08/30/17 at 08:15; Stop 08/31/17 at 13:02; Status DC Potassium Chloride 100 ml @ 50 mls/hr Q2H PRN IV For Potassium 2.8 - 3.2 mEq/L ; Start 08/30/17 at 08:15; Stop 08/31/17 at 13:02; Status DC Potassium Chloride 100 ml @ 25 mls/hr UNSCH PRN IV For Potassium 3.3 - 3.5 mEq /L; Start 08/30/17 at 08:15; Stop 08/31/17 at 13:02; Status DC Potassium Phosphate (K-Phos) 2,000 mg Q4H PRN PO For Phosphorus < 2.5 mg/dL; Start 08/30/17 at 08:15; Stop 08/31/17 at 13:02; Status DC Potassium Phosphate (K-Phos) 2,000 mg UNSCH PRN PO/TUBE SEE LABEL COMMENTS; Start 08/30/17 at 08:15; Stop 08/31/17 at 13:02; Status DC Potassium Phosphate 30 mmol/ Sodium Chloride 260 ml @ 42 mls/hr UNSCH PRN IV SEE LABEL COMMENTS; Start 08/30/17 at 08:15; Stop 08/31/17 at 13:02; Status DC Sodium Phosphate 30 mmol/Sodium Chloride 250 ml @ 42 mls/hr UNSCH PRN IV For Phosphorus < 2.5 mg/dL; Start 08/30/17 at 08:15; Stop 08/31/17 at 13:02; Status DC Hydralazine HCl (Apresoline Inj) 10 mg Q30M PRN IV PUSH sbp > 160 Last administered on 09/19/17 09:08; Start 08/30/17 at 08:15 Oxycodone HCl (Roxicodone Intensol Liq) 5 mg Q4H PO Last administered on 09:16; Start 08/30/17 at 09:00; Stop 08/31/17 at 11:07; Status DC Dexmedetomidine HCl 50 ml @ 29.9 mls/hr TITRATE IV ; Start 08/30/17 at 14:15; Stop 08/30/17 at 14:46; Status DC Dexmedetomidine HCl 200 mcg/ Sodium Chloride 50 ml @ 29.9 mls/hr TITRATE IV Last administered on 08/30/17 15:27; Start 08/30/17 at 15:00; Stop 08/30/17 at 16:42; Status DC Dexmedetomidine HCl 1000 mcg/ Sodium Chloride 250 ml @ 29.9 mls/hr TITRATE IV Last administered on 08/30/17 17:58; Start 08/30/17 at 16:45; Stop 08/31/17 at 06:14; Status DC Propofol 100 ml @ 14.352 mls/ hr TITRATE PRN IV SEDATION Last administered on 09/10/17 09:59; Start 08/31/17 at 00:30; Stop 09/11/17 at 10:20; Status DC Piperacillin Sod/ Tazobactam Sod 100 ml @ 200 mls/hr Q6HR IV Last administered on 09/01/17 13:02; Start 08/31/17 at 06:00; Stop 09/01/17 at 14 :52; Status DC Morphine Sulfate (Morphine Inj) 10 mg ONCE ONCE IV PUSH Last administered on 08/31/17 06:31; Start 08/31/17 at 06:30; Stop 08/31/17 at 06:31; Status DC Propranolol HCl (Inderal) 10 mg ONCE ONCE PO Last administered on 08/31/17 06:30; Start 08/31/17 at 06:15; Stop 08/31/17 at 06:20; Status DC Oxycodone HCl (Roxicodone Intensol Liq) 10 mg Q4H PO Last administered on 09:17; Start 08/31/17 at 13:00; Stop 09/11/17 at 10:20; Status DC Propranolol HCl (Inderal) 10 mg Q6HR PO Last administered on 09/11/17 05:37; Start 08/31/17 at 12:00; Stop 09/11/17 at 10:20; Status DC Quetiapine Fumarate (SEROquel) 100 mg Q8HR PO Last administered on 09/11/17 05 :37; Start 08/31/17 at 11:00; Stop 09/11/17 at 10:20; Status DC Haloperidol Lactate (Haldol Inj) 5 mg Q4H PRN IV agitation Last administered on 09/12/17 23:04; Start 08/31/17 at 11:00; Stop 09/25/17 at 09:30; Status DC Magnesium Sulfate/ Dextrose 100 ml @ 100 mls/hr Q1H IV Last administered on 12:22; Start 08/31/17 at 12:00; Stop 08/31/17 at 13:00; Status DC Bisacodyl (Dulcolax Supp) 10 mg DAILY RECTAL Last administered on 08/31/17 11 :58; Start 08/31/17 at 12:00; Stop 09/25/17 at 09:30; Status DC Polyethylene Glycol (Miralax) 17 gm BID PO Last administered on 09/20/17 09: 26; Start 08/31/17 at 12:00; Stop 09/25/17 at 09:29; Status DC Lactulose (Lactulose Liq) 30 ml BID PO Last administered on 09/04/17 19:57; Start 08/31/17 at 12:00; Stop 09/25/17 at 09:30; Status DC Senna/Docusate Sodium (Melina-Colace) 1 tab BID PO Last administered on 09:14; Start 08/31/17 at 12:00; Stop 09/25/17 at 09:29; Status DC Magnesium Citrate (Citroma Liq) 300 ml ONCE ONCE PO Last administered on 08/31 11:57; Start 08/31/17 at 12:00; Stop 08/31/17 at 12:01; Status DC Rocuronium [place] (Zemuron Inj) 50 mg STK-MED ONCE .ROUTE Last administered on 08/31/17 14:36; Start 08/31/17 at 14:36; Stop 08/31/17 at 14:37; Status DC Calcium Acetate (Phoslo) 667 mg TID PO Last administered on 09/08/17 10:38; Start 08/31/17 at 18:00; Stop 09/08/17 at 11:02; Status DC Rocuronium [place] (Zemuron Inj) 50 mg STAT ONCE IV Last administered on 08/31 16:00; Start 08/31/17 at 16:00; Stop 08/31/17 at 16:01; Status DC Lactated Ringer's 1,000 ml @ 999 mls/hr BOLUS ONCE IV Last administered on 21:12; Start 08/31/17 at 20:45; Stop 08/31/17 at 21:45; Status DC Piperacillin Sod/ Tazobactam Sod 50 ml @ 100 mls/hr Q6HR IV Last administered on 09/02/17 05:59; Start 09/01/17 at 18:00; Stop 09/02/17 at 10:45; Status DC Piperacillin Sod/ Tazobactam Sod 50 ml @ 100 mls/hr Q8HR IV Last administered on 09/11/17 05:37; Start 09/02/17 at 14:00; Stop 09/11/17 at 10:20; Status DC Nicardipine HCl 50 mg/Sodium Chloride 500 ml @ 50 mls/hr TITRATE PRN IV BLOOD PRESSURE MANAGEMENT Last administered on 09/05/17 22:00; Start 09/02/17 at 21 :15; Stop 09/11/17 at 10:25; Status DC Rocuronium [place] (Zemuron Inj) 50 mg STK-MED ONCE .ROUTE Last administered on 09/03/17 09:22; Start 09/03/17 at 09:22; Stop 09/03/17 at 09:23; Status DC Rocuronium [place] (Zemuron Inj) 50 mg NOW ONCE IV PUSH Last administered on 09/03/17 10:13; Start 09/03/17 at 10:15; Stop 09/03/17 at 10:16; Status DC Rocuronium [place] (Zemuron Inj) 50 mg NOW ONCE IV PUSH Last administered on 09/03/17 11:00; Start 09/03/17 at 11:00; Stop 09/03/17 at 11:01; Status DC Potassium Chloride 30 meq/ Sodium Chloride 115 ml @ 38.333 mls/ hr ONCE ONCE IV-CENTRAL Last administered on 09/03/17 13:36; Start 09/03/17 at 14:00; Stop 09/03/17 at 16:59; Status DC Dexamethasone Sodium Phosphate (Decadron Inj) 6 mg Q6H IV PUSH Last administered on 09/05/17 06:09; Start 09/04/17 at 13:00; Stop 09/05/17 at 11 :55; Status DC Diphenhydramine HCl (Benadryl Inj) 50 mg Q6H IV Last administered on 08:27; Start 09/04/17 at 13:00; Stop 09/07/17 at 12:59; Status DC Lorazepam (Ativan) 2 mg Q8H PO Last administered on 09/07/17 14:35; Start at 15:00; Stop 09/07/17 at 15:18; Status DC Acetaminophen 0 ml @ As Directed STK-MED ONCE IV ; Start 09/05/17 at 07:52; Stop 09/05/17 at 07:53; Status DC Insulin Detemir (Levemir Inj) 10 units Q12H SQ Last administered on 09/11/17 09:16; Start 09/05/17 at 10:00; Stop 09/11/17 at 10:21; Status DC Dexamethasone Sodium Phosphate (Decadron Inj) 4 mg Q12H IV PUSH Last administered on 09/07/17 05:28; Start 09/05/17 at 18:00; Stop 09/07/17 at 17 :59; Status DC Albuterol/ Ipratropium (Duoneb Neb) 1 ampule Q6HR NEB NEB Last administered on 09/08/17 11:05; Start 09/05/17 at 12:00; Stop 09/08/17 at 12:59; Status DC Rocuronium [place] (Zemuron Inj) 50 mg BOLUS STAT IV Last administered on 16:47; Start 09/05/17 at 16:37; Stop 09/05/17 at 16:38; Status DC Fluticasone Propionate (Flonase Tae Spr) 2 spray DAILY EACH NARE Last administered on 10/25/17at 10:08; Start 09/05/17 at 17:00 Lactated Ringer's 1,000 ml @ 30 mls/hr Q24H PRN IV SEE LABEL COMMENTS; Start 09/05/17 at 23:00; Stop 09/08/17 at 22:59; Status DC Sodium Chloride 500 ml @ 30 mls/hr [id number] PRN IV SEE LABEL COMMENTS; Start at 23:00; Stop 09/08/17 at 22:59; Status DC Metoprolol Tartrate (Lopressor) 25 mg [employer] MA[employer] PRN PO SEE LABEL COMMENTS; Start 09/05/17 at 23:00; Stop 09/08/17 at 22:59; Status DC Povidone Iodine (Betadine 5% Antisepsis Kit) 1 applic [employer] PRN EACH NARE SEE LABEL COMMENTS; Start 09/05/17 at 23:00; Stop 09/08/17 at 22:59; Status DC Chlorhexidine Gluconate (Chlorhexidine 2% Cloth) 3 pack [employer] PRN TOPICAL SEE LABEL COMMENTS; Start 09/05/17 at 23:00; Stop 09/08/17 at 22:59; Status DC Insulin Human Regular (NovoLIN R INJ) See Protocol Table ... [employer] PRN SQ SEE PROTOCOL TABLE; Start 09/05/17 at 23:00; Stop 09/08/17 at 22:59; Status DC Potassium Chloride 100 ml @ 50 mls/hr ONCE ONCE IV Last administered on 09/06 10:16; Start 09/06/17 at 09:30; Stop 09/06/17 at 11:29; Status DC Clonidine (Catapres) 0.3 mg Q8HR PO Last administered on 09/25/17 05:27; Start 09/06/17 at 14:00; Stop 09/25/17 at 09:29; Status DC Clonidine (Catapres) 0.3 mg ONCE ONCE PO Last administered on 09/06/17 11:55 ; Start 09/06/17 at 11:45; Stop 09/06/17 at 11:46; Status DC Heparin Sodium (Porcine) (Heparin Inj) 5,000 units Q12HR SQ ; Start 09/06/17 at 21:00; Stop 09/06/17 at 21:00; Status DC Gelatin (Gelfoam 12 Mm/7 Mm Top) 1 foam STK-MED ONCE .ROUTE Last administered on 09/07/17 09:47; Start 09/07/17 at 09:47; Stop 09/07/17 at 09:48; Status DC Silver Nitrate/ Potassium Nitrate (Silver Nitrate Applicators) 1 appl ONCE ONCE TOPICAL Last administered on 09/07/17 10:15; Start 09/07/17 at 10:15; Stop 09/07/17 at 10:47; Status DC Potassium Chloride 100 ml @ 50 mls/hr Q2H IV Last administered on 09/07/17 12:45; Start 09/07/17 at 10:45; Stop 09/07/17 at 14:44; Status DC Desmopressin Acetate (Ddavp Tae Spr) 1 spray ONCE ONCE EACH NARE Last administered on 09/07/17 15:00; Start 09/07/17 at 15:00; Stop 09/07/17 at 15 :01; Status DC Propofol (Diprivan 200 Mg/20 ml Inj) 200 mg STK-MED ONCE IV ; Start 09/06/17 at 12:00; Stop 09/07/17 at 15:10; Status DC Lorazepam (Ativan) 1 mg Q12H PO Last administered on 09/09/17 20:27; Start 09/07/17 at 19:00; Stop 09/11/17 at 10:25; Status DC Gelatin (Gelfoam 12 Mm/7 Mm Top) 1 foam Q2HR PRN TOPICAL if still bleeding from peg Last administered on 09/08/17 08:00; Start 09/07/17 at 19:45 Potassium Chloride 100 ml @ 50 mls/hr Q2H IV Last administered on 09/08/17 11:59; Start 09/08/17 at 09:00; Stop 09/08/17 at 12:59; Status DC Potassium Chloride (KCl) 40 meq ONCE ONCE PO ; Start 09/08/17 at 09:00; Stop 09/08/17 at 12:05; Status DC Potassium Chloride (KCl Powder) 40 meq ONCE ONCE PEG Last administered on 12:15; Start 09/08/17 at 12:15; Stop 09/08/17 at 12:21; Status DC Midazolam HCl (Versed Inj) 10 mg ONCE ONCE IV PUSH ; Start 09/08/17 at 13:00; Stop 09/08/17 at 13:41; Status DC Sodium Chloride 1,000 ml @ 999 mls/hr BOLUS ONCE IV Last administered on 13:00; Start 09/08/17 at 13:00; Stop 09/08/17 at 14:00; Status DC Rocuronium [place] (Zemuron Inj) 100 mg BOLUS ONCE IV ; Start 09/08/17 at 13: 00; Stop 09/08/17 at 13:44; Status DC Albuterol/ Ipratropium (Duoneb Neb) 1 ampule Q6HR NEB NEB Last administered on 09/12/17 15:34; Start 09/08/17 at 16:00; Stop 09/12/17 at 15:59; Status DC Midazolam HCl (Versed Inj) 10 mg STK-MED ONCE .ROUTE Last administered on 09/08 13:39; Start 09/08/17 at 13:12; Stop 09/08/17 at 13:13; Status DC Rocuronium [place] (Zemuron Inj) 100 mg STK-MED ONCE .ROUTE Last administered on 09/08/17 13:12; Start 09/08/17 at 13:12; Stop 09/08/17 at 13:13; Status DC Midazolam HCl (Versed Inj) 5 mg STK-MED ONCE .ROUTE Last administered on 13:52; Start 09/08/17 at 13:44; Stop 09/08/17 at 13:45; Status DC Midazolam HCl (Versed Inj) 5 mg STK-MED ONCE .ROUTE Last administered on 13:52; Start 09/08/17 at 13:49; Stop 09/08/17 at 13:50; Status DC Potassium Bicarb/ Potassium Chloride (K-Lyte Cl Eff) 25 meq ONCE ONCE PO Last administered on 09/09/17 11:15; Start 09/09/17 at 11:00; Stop 09/09/17 at 11:03; Status DC Metoclopramide HCl (Reglan Inj) 5 mg Q8HR IV PUSH Last administered on 22:55; Start 09/09/17 at 22:00; Stop 09/11/17 at 10:25; Status DC Potassium Chloride 100 ml @ 50 mls/hr Q2H IV Last administered on 09/10/17 16 :01; Start 09/10/17 at 13:00; Stop 09/10/17 at 16:59; Status DC Insulin Detemir (Levemir Inj) 12 units Q12H SQ Last administered on 09/17/17 10:42; Start 09/11/17 at 22:00; Stop 09/17/17 at 15:27; Status DC Oxycodone HCl (Roxicodone Intensol Liq) 5 mg Q4H PO Last administered on 08:28; Start 09/11/17 at 13:00; Stop 09/17/17 at 12:47; Status DC Propranolol HCl (Inderal) 30 mg Q6HR PO Last administered on 09/17/17 04:23; Start 09/11/17 at 12:00; Stop 09/17/17 at 12:47; Status DC Quetiapine Fumarate (SEROquel) 50 mg Q8HR PO Last administered on 09/12/17 21: 37; Start 09/11/17 at 14:00; Stop 09/25/17 at 09:29; Status DC Modafinil (Provigil) 200 mg DAILY PO Last administered on 09/12/17 09:07; Start 09/11/17 at 12:00; Stop 09/25/17 at 09:30; Status DC Water (Free Water) VOLUME: 200 ML Q4HR G-TUBE Last administered on 09/18/17 08 :00; Start 09/11/17 at 12:00; Stop 09/18/17 at 11:53; Status DC Famotidine (Pepcid) 10 mg BID NG Last administered on 09/23/17 20:42; Start 09/11/17 at 21:00; Stop 09/24/17 at 09:10; Status DC Heparin Sodium (Porcine) (Heparin Inj) 5,000 units Q12HR SQ Last administered on 09/28/17 08:20; Start 09/11/17 at 21:00; Status Future Hold Lorazepam (Ativan Inj) 1 mg ONCE ONCE IV PUSH Last administered on 09/13/17 02:57; Start 09/13/17 at 02:45; Stop 09/13/17 at 02:46; Status DC Pharmacy Profile Note 0 ml @ 0 mls/hr UNSCH OTHER ; Start 09/13/17 at 02:45; Stop 09/17/17 at 10:11; Status DC Piperacillin Sod/ Tazobactam Sod 50 ml @ 100 mls/hr Q6H IV Last administered on 09/19/17 20:26; Start 09/13/17 at 03:00; Stop 09/19/17 at 23:00; Status DC Nicardipine HCl 25 mg/Sodium Chloride 250 ml @ 50 mls/hr TITRATE PRN IV Blood pressure management Last administered on 09/17/17 04:57; Start 09/13/17 at 02: 45; Stop 09/17/17 at 12:47; Status DC Dantrolene Sodium (Dantrium Inj) 70 mg ONCE ONCE IV Last administered on 03:55; Start 09/13/17 at 03:00; Stop 09/13/17 at 03:01; Status DC Vancomycin HCl 2000 mg/Sodium Chloride 520 ml @ 250 mls/hr ONCE ONCE IV Last administered on 09/13/17 05:52; Start 09/13/17 at 04:00; Stop 09/13/17 at 06:04 ; Status DC Vancomycin HCl 2500 mg/Sodium Chloride 525 ml @ 250 mls/hr ONCE ONCE IV Last administered on 09/14/17 12:29; Start 09/14/17 at 12:00; Stop 09/14/17 at 14:05 ; Status DC Potassium Chloride 100 ml @ 50 mls/hr Q2H IV Last administered on 09/15/17 10 :22; Start 09/15/17 at 08:15; Stop 09/15/17 at 12:14; Status DC Dexamethasone Sodium Phosphate (Decadron Inj) 6 mg Q6HR IV PUSH Last administered on 09/17/17 04:24; Start 09/15/17 at 14:15; Stop 09/17/17 at 12:35 ; Status DC Diphenhydramine HCl (Benadryl Inj) 25 mg Q6H IV PUSH Last administered on 08:06; Start 09/15/17 at 15:00; Stop 09/18/17 at 14:59; Status DC Lidocaine HCl (Lidocaine Pf 2% Neb) 1 ml Q6HR NEB PRN NEB cough/bronchial irritation; Start 09/16/17 at 11:30 Vancomycin HCl 1500 mg/Sodium Chloride 515 ml @ 257.5 mls/ hr ONCE ONCE IV Last administered on 09/16/17 17:07; Start 09/16/17 at 15:00; Stop 09/16/17 at 16:59; Status DC Insulin Human Regular (NovoLIN R SUPPLEMENTAL SCALE) 5 ONCE ONCE SQ Last administered on 09/16/17 18:14; Start 09/16/17 at 18:00; Stop 09/16/17 at 18:01 ; Status DC Labetalol HCl (Trandate) 300 mg Q8HR PEG Last administered on 09/25/17 05:26 ; Start 09/17/17 at 14:00; Stop 09/25/17 at 09:31; Status DC Labetalol HCl (Trandate) 300 mg NOW ONCE PEG Last administered on 09/17/17 04 :23; Start 09/17/17 at 04:15; Stop 09/17/17 at 04:16; Status DC Dexamethasone Sodium Phosphate (Decadron Inj) 6 mg Q12HR IV PUSH Last administered on 09/20/17 09:26; Start 09/17/17 at 21:00; Stop 09/20/17 at 20: 59; Status DC Albuterol/ Ipratropium (Duoneb Neb) 1 ampule Q6HR NEB INH Last administered on 09/21/17 08:25; Start 09/17/17 at 16:00; Stop 09/21/17 at 15:59; Status DC Oxycodone HCl (Roxicodone Intensol Liq) 5 mg Q6H PO Last administered on 08:05; Start 09/17/17 at 15:00; Stop 09/18/17 at 12:04; Status DC Propranolol HCl (Inderal) 40 mg Q6HR PO Last administered on 09/25/17 05:26; Start 09/17/17 at 18:00; Stop 09/25/17 at 09:29; Status DC Insulin Detemir (Levemir Inj) 15 units Q12H SQ Last administered on 09/18/17 09:49; Start 09/17/17 at 22:00; Stop 09/18/17 at 11:53; Status DC Water (Free Water) 300 ml Q4HR G-TUBE Last administered on 10/25/17at 12:00; Start 09/18/17 at 12:00 Insulin Detemir (Levemir Inj) 18 units Q12H SQ Last administered on 09/18/17 20:09; Start 09/18/17 at 22:00; Stop 09/19/17 at 08:52; Status DC Dextrose (D50w (Vial) Inj) 25 ml UNSCH PRN IV PUSH HYPOGLYCEMIA-SEE COMMENTS; Start 09/18/17 at 12:00 Insulin Human Regular (NovoLIN R SUPPLEMENTAL SCALE) 1 Q4HR SQ Last administered on 09/25/17 04:09; Start 09/18/17 at 12:00; Stop 09/25/17 at 09: 28; Status DC Oxycodone HCl (Roxicodone Intensol Liq) 5 mg Q6H PRN PO pain 6-10 Last administered on 09/18/17 22:56; Start 09/18/17 at 15:00; Stop 09/25/17 at 09: 29; Status DC Hydralazine HCl (Apresoline) 50 mg Q8HR PO Last administered on 09/19/17 05: 12; Start 09/18/17 at 14:00; Stop 09/19/17 at 08:52; Status DC Insulin Detemir (Levemir Inj) 20 units Q12H SQ Last administered on 10/25/17 10:08; Start 09/19/17 at 10:00 Hydralazine HCl (Apresoline) 100 mg Q8HR PO Last administered on 09/25/17 05: 31; Start 09/19/17 at 14:00; Stop 09/25/17 at 09:29; Status DC Dextrose 1,000 ml @ 42 mls/hr [id number] IV Last administered on 09/20/17 09:25 ; Start 09/19/17 at 08:45; Stop 09/20/17 at 11:39; Status DC Sodium Chloride 38.5 meq/Sterile Water 1,009.625 ml @ 42 mls/hr Q24H IV Last administered on 09/25/17 06:01; Start 09/20/17 at 13:00; Stop 09/25/17 at 09 :24; Status DC Acetaminophen 0 ml @ As Directed STK-MED ONCE IV ; Start 09/21/17 at 09:42; Stop 09/21/17 at 09:43; Status DC Hydromorphone HCl (Dilaudid Pf Inj) 2 mg STK-MED ONCE .ROUTE ; Start 09/21/17 at 09:43; Stop 09/21/17 at 09:44; Status DC Sodium Polystyrene Sulfonate (Kayexalate Liq) 30 gm Q2HR PO Last administered on 09/21/17 19:53; Start 09/21/17 at 16:00; Stop 09/21/17 at 21:00; Status DC Famotidine (Pepcid) 20 mg BID NG Last administered on 10/25/17 10:07; Start 09/24/17 at 09:30 Morphine Sulfate (Morphine Inj) 2 mg Q2H PRN IV PUSH breakthru pain Last administered on 10/24/17 20:42; Start 09/24/17 at 16:30 Metoprolol Tartrate (Lopressor) 25 mg Q8H PO Last administered on 09/25/17 05 :25; Start 09/25/17 at 05:00; Stop 09/25/17 at 09:29; Status DC Potassium Bicarb/ Potassium Chloride (K-Lyte Cl Eff) 50 meq ONCE ONCE PO Last administered on 09/25/17 05:25; Start 09/25/17 at 04:30; Stop 09/25/17 at 04:31; Status DC Sodium Chloride 1,000 ml @ 42 mls/hr [id number] IV ; Start 09/25/17 at 10:00; Stop 09/25/17 at 10:00; Status DC Glucagon (Glucagon Inj) 1 mg UNSCH PRN OTHER HYPOGLYCEMIA-SEE COMMENTS; Start 09/25/17 at 09:30 Insulin Aspart (NovoLOG SUPPLEMENTAL SCALE) 1 Q6H SQ Last administered on 12:52; Start 09/25/17 at 12:00 Acetaminophen (Tylenol) 650 mg Q6H PRN G-TUBE PAIN 1-5 AND/OR FEVER >101F Last administered on 10/15/17 23:34; Start 09/25/17 at 12:45 Amlodipine Besylate (Norvasc) 10 mg DAILY G-TUBE Last administered on 10:07; Start 09/26/17 at 09:00 Atorvastatin Calcium (Lipitor) 40 mg HS DOBHOFF Last administered on 10/24/17 20:43; Start 09/25/17 at 21:00 Clonidine (Catapres) 0.3 mg Q8HR G-TUBE Last administered on 10/25/17 12:53; Start 09/25/17 at 14:00 Senna/Docusate Sodium (Melina-Colace) 1 tab BID G-TUBE Last administered on 10:07; Start 09/25/17 at 21:00 Hydralazine HCl (Apresoline) 100 mg Q8HR G-TUBE Last administered on 10/25/17 12:52; Start 09/25/17 at 14:00 Metoprolol Tartrate (Lopressor) 25 mg Q8H G-TUBE ; Start 09/25/17 at 13:00; Stop 09/25/17 at 13:00; Status DC Oxycodone HCl (Roxicodone Intensol Liq) 5 mg Q6H PRN G-TUBE pain 6-10 Last administered on 10/24/17 22:55; Start 09/25/17 at 15:00 Polyethylene Glycol (Miralax) 17 gm BID G-TUBE Last administered on 10/24/17 09:10; Start 09/25/17 at 21:00 Propranolol HCl (Inderal) 40 mg Q6HR G-TUBE Last administered on 10/25/17 12: 52; Start 09/25/17 at 12:00 Quetiapine Fumarate (SEROquel) 50 mg Q8HR G-TUBE Last administered on 12:52; Start 09/25/17 at 14:00 Albuterol Sulfate (Albuterol Neb) 2.5 mg Q2HR NEB PRN NEB sob/wheeze Last administered on 10/11/17 17:07; Start 09/25/17 at 13:30 Cefuroxime Axetil (Ceftin) 500 mg Q12HR PO Last administered on 10/03/17t 09: 03; Start 09/26/17 at 11:15; Stop 10/03/17 at 11:14; Status DC Sodium Chloride 250 ml @ 15 mls/hr ONCE ONCE IV ; Start 09/28/17 at 10:15; Stop 09/28/17 at 16:53; Status DC Chlorhexidine Gluconate (Peridex 0.12% Liq) 15 ml TID SWISH-SPIT Last administered on 10/24/17 09:00; Start 10/11/17 at 18:00 Methylprednisolone Sodium Succinate (SoluMEDROL INJ) 125 mg ONCE ONCE IV PUSH Last administered on 10/20/17at 13:09; Start 10/20/17 at 12:15; Stop 10/20/17 at 12:16; Status DC Albuterol/ Ipratropium (Duoneb Neb) 1 ampule Q6HR NEB NEB Last administered on 10/24/17 08:46; Start 10/23/17 at 16:00 A/P Problem List: (1) Intracranial hemorrhage ICD Code: I62.9 - Nontraumatic intracranial hemorrhage, unspecified Status: Acute Assessment and Plan Assessment and Plan A/P Acute encephalopathy - improving. Left Thalamic Hemorrhage Intracerebral Hemorrhage - Repeat CT of the head showed improving bleed - Neurosurgery follow-up appreciated; stable for dc to SNF per neurosurgery. - Continue rehabilitation efforts with PT, OT, speech - On Seroquel to control agitated delirium. Roxicodone as needed for pain Anemia likely due to chronic disease. H/H fairly stable. will monitor periodically. Healthcare associated pneumonia finished the course of antibiotic. UTI: treated. Respiratory failure s/p trach - Tolerating T piece - CT of the chest 09/13/17 -LLL infiltrate. Repeat chest x-ray on 09/26/17 shows stable left lower lobe consolidation - continue neb treatment. -Patient had angioedema, source unclear and was seen by ENT. He was treated with steroids. Per ENT, expect slow improvement. This is resolving. -Appreciate pulmonology following for trach management Respiratory failure s/p trach -Did not tolerate trach 10/14/17, -trial of trach capping .... Will give Solu-Medrol 125 mg IV 1 now and attempt another trial this afternoon 10/20/17 HAS PASSY DIANA VALVE IN PLACE AND USING IT WEL Hyperglycemia - persistent. - Continue Levemir 20 units SQ q12h - Continue sliding scale insulin with Accu-Cheks. - hemoglobin A1c 9.1. Hypertension - Intermittent hypertension now well controlled - Continue clonidine, amlodipine and propranolol - Continue hydralazine. Nutrition status: - Status post PEG tube continue tube feeds - Having bowel movements - Continue Free water - ST TO WORK WITH PATIENT REGARDING ADVANCING DIET Acute kidney injury, most likely has CKD per nephrology: Renal function stabilized. - monitor renal function periodically. Physical deconditioning/right sided hemiparesis - OOB to stretcher chair daily - PT/OT following AND SPEECH RIGHT SIDE NOW HAS MORE MOVEMENT IN UE AND LE ON THE RIGHT PROPH: - SCD's. Pepcid for GI prophylaxis Discharge Planning dc planning to SNF VS INPATIENT REHAB in PROCESS CONTINUE PT AND OT AND ST Discharge Planning Await case management ability to find SNF VS INPATIENT REHAB FOR AGGRESSIVE PT AND OT AND ST Kalen Rice DO Oct 25, 2017 13:15
[2017-10-25] MEDS: oxyCODONE HCL ORAL CONC 5 MG/0.25 ML SYRINGE G-TUBE PRN (13:36)
[2017-10-25 16:05] VITALS: BP_SYST 125; BP_SYST 132; BP_DIAS 68; BP_DIAS 70; PULSE 78; RESP 20; TEMP 98.1; O2SAT 100
--- NOTE | 2017-10-25 18:43 | HHI.PR ---
Subjective Remarks ALERT NO DISTRESS TRACH OK Objective Vital Signs Date Time Temp Pulse Resp B/P (MAP) Pulse Ox O2 Delivery O2 Flow Rate FiO2 10/25/17 16:05 98.1 78 20 125/68 (87) 100 10/25/17 12:28 99.2 76 18 132/73 (92) 93 10/25/17 08:00 99.8 81 18 119/77 (91) 93 10/25/17 08:00 77 10/25/17 04:00 98.2 79 18 114/67 (83) 99 10/25/17 04:00 82 10/25/17 04:00 T-Piece 6.00 28 Humidified 10/25/17 00:00 80 10/25/17 00:00 98.9 81 18 119/71 (87) 98 10/24/17 23:00 Trach Collar 6.00 28 Humidified 10/24/17 21:56 98 Trach Collar 6.00 21 10/24/17 20:00 Nasal Cannula 3.00 Humidified 10/24/17 20:00 98.2 81 18 134/73 (93) 94 10/24/17 20:00 81 I/O 10/24/17 10/24/17 10/24/17 10/25/17 10/25/17 10/25/17 07:00 15:00 23:00 07:00 15:00 23:00 Intake Total 1738 ml 1676 ml Output Total 1850 ml 1000 ml 750 ml Balance -112 ml -1000 ml 1676 ml -750 ml Intake Oral 0 ml Tube Feeding 778 ml 746 ml Tube Irrigant 60 ml 30 ml Other 900 ml 900 ml Output Urine Total 1850 ml 1000 ml 750 ml # Bowel Movements 1 0 0 Result Diagram: 10/24/17 0703 10/24/17 0705 Objective Remarks GENERAL: SKIN: Warm and dry. HEAD: Atraumatic. Normocephalic. EYES: Pupils equal and round. No scleral icterus. No injection or drainage. ENT: No nasal bleeding or discharge. Mucous membranes pink and moist. NECK: Trachea midline. No JVD. CARDIOVASCULAR: Regular rate and rhythm. RESPIRATORY: No accessory muscle use. Clear to auscultation. Breath sounds equal bilaterally. GASTROINTESTINAL: Abdomen soft, non-tender, nondistended. Hepatic and splenic margins not palpable. MUSCULOSKELETAL: Extremities without clubbing, cyanosis, or edema. No obvious deformities. NEUROLOGICAL: Awake and alert. No obvious cranial nerve deficits. Motor grossly within normal limits. Five out of 5 muscle strength in the arms and legs. Normal speech. PSYCHIATRIC: Appropriate mood and affect; insight and judgment normal. Assessment and Plan Assessment and Plan RESPIRATORY FAILURE S/P TRACH S/P CVA OBESITY HTN PLAN O2 NEEDED PULM TOILET INCREASE ACTIVITY [facility] Oct 25, 2017 18:43
[2017-10-25 20:23] VITALS: PULSE 75
[2017-10-25] MEDS: ATORVASTATIN 40 MG TAB DOBHOFF SCH (21:37)
[2017-10-26] VITALS (12 sets, daily range): BP systolic 100–154; BP diastolic 59–78; PULSE 75–89; RESP 18–21; TEMP 98.1–99.4; O2SAT 94–100
[2017-10-26] MEDS: FREE WATER G-TUBE SCH ×6 (00:20→23:44)
[2017-10-26] MEDS: PROPRANOLOL HCL 40 MG TAB G-TUBE SCH ×4 (00:20→17:50)
[2017-10-26] MEDS: RESP: ALBUTEROL 2.5 MG/IPRATROPIUM 0.5 MG NEB (SCH) NEB ×4 (04:16→21:08)
[2017-10-26] MEDS: QUEtiapine FUMARATE 25 MG TAB G-TUBE SCH ×3 (05:09→23:46)
[2017-10-26] MEDS: cloNIDine HCL 0.3 MG TAB G-TUBE SCH ×3 (05:09→23:45)
[2017-10-26] MEDS: hydrALAZINE HCL 100 MG TAB G-TUBE SCH ×3 (05:09→23:45)
[2017-10-26] MEDS: INSULIN ASPART SUPPLEMENTAL SCALE SQ SCH ×5 (05:10→23:47)
--- NOTE | 2017-10-26 08:36 | HHI.PR ---
Subjective Remarks ALERT NO DISTRESS TRACH OK Objective Vital Signs Date Time Temp Pulse Resp B/P (MAP) Pulse Ox O2 Delivery O2 Flow Rate FiO2 10/26/17 04:28 100 Trach Collar 6.00 28 10/26/17 04:03 75 10/26/17 04:00 99.2 75 18 139/78 (98) 100 10/26/17 00:00 76 10/26/17 00:00 98.3 75 18 130/75 (93) 99 10/25/17 20:23 75 10/25/17 19:00 Trach Collar 6.00 28 Humidified 10/25/17 16:05 98.1 78 20 125/68 (87) 100 10/25/17 12:28 99.2 76 18 132/73 (92) 93 I/O 10/25/17 10/25/17 10/25/17 10/26/17 10/26/17 10/26/17 07:00 15:00 23:00 07:00 15:00 23:00 Intake Total 1676 ml Output Total 750 ml 0 ml 1000 ml Balance 1676 ml -750 ml 0 ml -1000 ml Tube Feeding 746 ml Tube Irrigant 30 ml Other 900 ml Output Urine Total 750 ml 1000 ml Tube Feeding Residual Discard 0 ml # Bowel Movements 0 Result Diagram: 10/24/17 0703 10/24/17 0705 Objective Remarks GENERAL: SKIN: Warm and dry. HEAD: Atraumatic. Normocephalic. EYES: Pupils equal and round. No scleral icterus. No injection or drainage. ENT: No nasal bleeding or discharge. Mucous membranes pink and moist. NECK: Trachea midline. No JVD. CARDIOVASCULAR: Regular rate and rhythm. RESPIRATORY: No accessory muscle use. Clear to auscultation. Breath sounds equal bilaterally. GASTROINTESTINAL: Abdomen soft, non-tender, nondistended. Hepatic and splenic margins not palpable. MUSCULOSKELETAL: Extremities without clubbing, cyanosis, or edema. No obvious deformities. NEUROLOGICAL: Awake and alert. No obvious cranial nerve deficits. Motor grossly within normal limits. Five out of 5 muscle strength in the arms and legs. Normal speech. PSYCHIATRIC: Appropriate mood and affect; insight and judgment normal. Assessment and Plan Assessment and Plan RESPIRATORY FAILURE S/P TRACH S/P CVA OBESITY HTN PLAN O2 NEEDED PULM TOILET INCREASE ACTIVITY Wang Piña MD Oct 26, 2017 08:36
[2017-10-26] MEDS: DOCUSATE SODIUM 50 MG/SENNA 8.6 MG TAB G-TUBE SCH ×2 (09:00→21:00)
[2017-10-26] MEDS: POLYETHYLENE GLYCOL 17 GM PKG G-TUBE SCH ×2 (09:00→21:00)
[2017-10-26] MEDS: CHLORHEXIDINE GLUCONATE 0.12% 15 ML CUP SWISH-SPIT SCH ×3 (09:00→18:00)
--- NOTE | 2017-10-26 10:01 | HHI.NSPN ---
(Mikey Ontiverosdenis CORTES) History Chief Complaint: "I need to get out of here." (Mikey Ontiverosdenis CORTES) Interval History 08/29: History of hypertension who was brought to the emergency room per [facility] after being found with altered mental status, right hemiparesis. He had reportedly been seen to be normal approximately 3-1/2 hours prior. Systolic blood pressure greater than 260/130 on initial evaluation. No seizure activity reported. Positive emesis. Per emergency room personnel the patient was responding verbally, difficulty raising his right arm upon initial arrival. He was intubated in the emergency room and a stat CT scan accomplished which has revealed a primarily left thalamic intracranial hemorrhage. 09/01/17: Patient remains intubated and sedated. :09/02: intubated and well sedated, not tolerating sedation vacation due to increase in blood pressure. 09/03/17: Remains on propofol and fentanyl IV for ventilator control. Positive agitation with decreased sedation 09/04/17: Pt sedated on Diprivan and Fentanyl drip. Not following commands. Pt on Cardene drip. Intubated. 09/05/17: Pt sedated on Diprivan and Fentanyl drip. Not following commands. Pt on Cardene drip. Intubated. Pupils 2mm bilaterally, NR bilaterally. 09/06/17: Remains intubated. PEG tube placed today. On Decadron and Benadryl for angioedema. Lisinopril discontinued 09/07. The patient is obtunded but is sedated with propofol. Nursing reports that the patient does have bleeding secondary to his PEG tube being placed yesterday. The family reports that the plan is to do a tracheostomy tomorrow. Nursing does say the patient does withdraw to stimulation, has a cough and gag reflex but his pupils are nonreactive. 09/10: The patient continues to be obtunded although he has sedation infusing at a low dose. He is trached and tolerating a CPAP trial. 09/13: Obtunded versus lethargic. He is not on any sedation. He is trached and mechanically ventilated. He went for a CT brain this morning. Nursing reports that the patient does withdraw to noxious stimulation and that the pupils are sluggish. 09/14: The patient has his eyes open when seen. He continues to be trached and mechanically ventilated. Nursing this morning reports that the patient gave a thumbs up on the left hand to command for him. 09/15: Pt off sedative drips. Pupils 2mm bilaterally slight reaction bilaterally. Not following commands. Not opening eyes. 09/16: When seen this morning the patient appears lethargic. He is trached and on T-piece. Nursing reports that the patient was more alert and did give a thumbs up to command this morning prior to receiving diphenhydramine. He also reported no movement to the right side. 09/17: No acute events overnight. Patient up in chair 09/18: No acute events overnight. Patient remains hypertensive. He is in bed with at his side. 09/19: Persistent hypertension overnight. 09/20/2017: Tracheostomy in place. Upper endoscopy performed 09/19/17 with findings of small amount of bleeding at the PEG site. 09/22: The patient is awake when seen. He does interact. 09/23: This morning the patient does have his eyes closed but opens them to voice. He does follow commands with the left side extremities and it appears he does track. 09/24: When seen the patient is awake and looks towards my voice. He does follow commands on the left and appears to track with the eyes. No movement of the right noted. 09/27: The patient is moving the left arm spontaneously to wipe his face. He continues to have some mild swelling to the tongue. He was transferred from [facility] to a regular med/surg floor on . 09/28: This afternoon the patient is asleep but awakens to noxious stimulation. His family states that he was extremely tired. Once awake he did interact. 10/05: When seen this morning the patient has his eyes closed. Nursing states that the patient has been sleepy every time she has been in the room today. He did respond and open his eyes to central noxious stimulation and follow some commands. 10/12: The patient is asleep when this practitioner enters the room. He opens his eyes to voice and moves the left side to command and spontaneously. He does weakly try to say a couple word. He is trached and on a T-piece. Nursing reported that a [place] valve was tried but the patient had difficulty with his respirations. 10/26: This morning the patient is awake with the [place] valve in place. He is talking and oriented. He states that he has a trach in place and doesn't need it anymore. He does say he is not able to move the right lower extremity when asked to do so. (James Ontiveros) Exam Results 10/24/17 10/24/17 10/25/17 10/25/17 10/26/17 10/26/17 06:00 18:00 06:00 18:00 06:00 18:00 Intake Total 1738 ml 1676 ml Output Total 1850 ml 1000 ml 750 ml 1000 ml Balance -112 ml 676 ml -750 ml -1000 ml Intake Oral 0 ml Tube Feeding 778 ml 746 ml Tube Irrigant 60 ml 30 ml Other 900 ml 900 ml Output Urine Total 1850 ml 1000 ml 750 ml 1000 ml Tube Feeding Residual Discard 0 ml # Voids 3 # Bowel Movements 1 0 0 Vital Signs Date Time Temp Pulse Resp B/P (MAP) Pulse Ox O2 Delivery O2 Flow Rate FiO2 10/26/17 09:37 99 Trach Collar 5.00 28 10/26/17 04:28 100 Trach Collar 6.00 28 10/26/17 04:03 75 10/26/17 04:00 99.2 75 18 139/78 (98) 100 10/26/17 00:00 76 10/26/17 00:00 98.3 75 18 130/75 (93) 99 10/25/17 20:23 75 10/25/17 19:00 Trach Collar 6.00 28 Humidified 10/25/17 16:05 98.1 78 20 125/68 (87) 100 10/25/17 12:28 99.2 76 18 132/73 (92) 93 10/25/17 08:00 99.8 81 18 119/77 (91) 93 10/25/17 08:00 77 10/25/17 04:00 98.2 79 18 114/67 (83) 99 10/25/17 04:00 82 10/25/17 04:00 T-Piece 6.00 28 Humidified 10/25/17 00:00 80 10/25/17 00:00 98.9 81 18 119/71 (87) 98 10/24/17 23:00 Trach Collar 6.00 28 Humidified 10/24/17 21:56 98 Trach Collar 6.00 21 10/24/17 20:00 Nasal Cannula 3.00 Humidified 10/24/17 20:00 98.2 81 18 134/73 (93) 94 10/24/17 20:00 81 10/24/17 16:09 98.9 81 20 119/68 (85) 94 10/24/17 12:11 97.8 77 21 134/76 (95) 99 10/24/17 09:50 Nasal Cannula 3.00 10/24/17 09:50 97 3.00 10/24/17 09:00 Nasal Cannula 3.00 10/24/17 08:49 97 T-piece 6.00 28 10/24/17 08:10 98.1 73 21 123/77 (92) 100 10/24/17 08:00 72 10/24/17 08:00 T-Piece 6.00 28 10/24/17 04:00 T-Piece 6.00 28 10/24/17 04:00 98.6 74 17 120/71 (87) 99 10/24/17 03:48 72 10/24/17 02:30 T-Piece 6.00 28 10/24/17 00:00 98.6 83 17 147/72 (97) 98 10/24/17 00:00 Nasal Cannula 3.00 10/23/17 23:46 85 10/23/17 20:23 100 Nasal Cannula 3.00 10/23/17 20:00 98.8 81 18 156/78 (104) 96 10/23/17 20:00 Nasal Cannula 3.00 10/23/17 19:43 79 10/23/17 18:09 98.3 82 21 146/84 (104) 93 10/23/17 16:00 75 10/23/17 12:10 97.8 71 20 139/81 (100) 95 10/23/17 12:00 75 10/23/17 10:46 94 Nasal Cannula 4.00 (James Ontiveros) Physical Examination GENERAL: Awake & alert, readily interacts, no evident distress. HEENT: Normocephalic, atraumatic. Tracking with his eyes. MUSCULOSKELETAL: No evident clubbing or deformity. Moving LUE spontaneously. NEUROLOGICAL: AA&O x3. Speech essentially clear w/[place] valve in place. Left pupil 3 mm & right pupil 4 mm, slight reaction. Follows simple commands. Moves LUE>LLE>RUE to command, no movement of RLE to command or local noxious stimulation. (James Ontiveros) Lab, Micro, Other Results Recent Impressions Chest X-Ray 10/24/17 0600 Signed Impressions: Service Date/Time: Tuesday, October 24, 2017 04:21 - CONCLUSION: No significant interval change. Iain Fragoso MD Laboratory Tests Test 10/24/17 07:03 10/24/17 07:05 White Blood Count 6.6 TH/MM3 Red Blood Count 3.42 MIL/MM3 Hemoglobin 9.0 GM/DL Hematocrit 29.4 % Mean Corpuscular Volume 85.8 FL Mean Corpuscular Hemoglobin 26.4 PG Mean Corpuscular Hemoglobin Concent 30.7 % Red Cell Distribution Width 15.6 % Platelet Count 313 TH/MM3 Mean Platelet Volume 9.3 FL Neutrophils (%) (Auto) 68.4 % Lymphocytes (%) (Auto) 20.3 % Monocytes (%) (Auto) 9.6 % Eosinophils (%) (Auto) 1.4 % Basophils (%) (Auto) 0.3 % Neutrophils # (Auto) 4.5 TH/MM3 Lymphocytes # (Auto) 1.3 TH/MM3 Monocytes # (Auto) 0.6 TH/MM3 Eosinophils # (Auto) 0.1 TH/MM3 Basophils # (Auto) 0.0 TH/MM3 CBC Comment DIFF FINAL Differential Comment Blood Urea Nitrogen 21 MG/DL Creatinine 0.84 MG/DL Random Glucose 124 MG/DL Total Protein 6.5 GM/DL Albumin 2.4 GM/DL Calcium Level 8.8 MG/DL Phosphorus Level 3.9 MG/DL Magnesium Level 2.2 MG/DL Alkaline Phosphatase 85 U/L Aspartate Amino Transf (AST/SGOT) 33 U/L Alanine Aminotransferase (ALT/SGPT) 30 U/L Total Bilirubin 0.3 MG/DL Sodium Level 138 MEQ/L Potassium Level 4.2 MEQ/L Chloride Level 102 MEQ/L Carbon Dioxide Level 30.3 MEQ/L Anion Gap 6 MEQ/L Estimat Glomerular Filtration Rate 120 ML/MIN (James Ontiveros) Medical Decision Making Impression and Plan Impression: 1. Large thalamic intracranial hemorrhage. 2. Hypertension, improved 3. Klebsiella pneumonia, resolved The patient continues to improve neurologically w/good motor function to left- side extremities, some movement of RUE but not RLE. CT brain w/improvement of left thalamic haemorrhage, decreased midline shift, blood noted in posterior horns, no acute findings. Plan: Primary management per Hospitalist. Neuro checks. Stat CT brain for any decline in neuro status. The patient is stable for discharge to a SNF from NSGY's perspective. (James Ontiveros) Attending Statement The exam, history, and the medical decision-making described in the above note were completed with the assistance of the mid-level provider. I reviewed and agree with the findings presented. I attest that I had a [id number] encounter with the patient on the same day, and personally performed and documented my assessment and findings in the medical record. On my exam today he is alert, converses with short phrases appropriate. Moves left side well to command Continued steady improvement Continue PT/OT/ST Stable for rehab from NS standpoint (Orville Tinajero MD) James Ontiveros Oct 26, 2017 10:01 Orville Tinajero MD Oct 26, 2017 19:38
[2017-10-26] MEDS: FAMOTIDINE 20 MG TAB NG SCH ×2 (10:13→23:45)
[2017-10-26] MEDS: INSULIN DETEMIR 100 UNITS/ML VIAL SQ SCH ×2 (10:14→23:46)
[2017-10-26] MEDS: FLUTICASONE PROPIONATE 50 MCG/ACT 16 GM NASAL SPRAY EACH NARE SCH (10:14)
--- NOTE | 2017-10-26 11:46 | HHI.PR ---
Subjective Remarks 1-11 Patient seen and examined Scott Of trach capping unsuccessful AWAIT SAFE PLACEMENT RIGHT SIDE IS LESS FLACCID 1-12 MOVING RIGHT SIDE MORE- NOT TOTALLY FLACCID MOVING LEFT SIDE WELL CONTINUE PT AND OT 1-13 TOLERATING PASSY DIANA VALVE MOVING RIGHT SIDE MORE TO RUIZ WHEN BED AVAILABLE 1-14 HAS PASSY DIANA VALVE IN PLACE NO NEW COMPLAINTS DW RN AND PT MOVING RIDE SIDE SOME NOW AWAIT RUIZ PLACEMENT 1-15 WANTS TO EAT BUT NEEDS SPEECH CLEARANCE FOR THAT DW RN AND PT HOPEFULLY TO RUIZ SOON NEEDS PT AND OT AND ST 1-16 NOT CLEARED BY SPEECH TO EAT YET DW RN AND PT AWAIT RUIZ HAVING SOME PAIN IN RIGHT ARM/LEG Objective Vitals Vital Signs Date Time Temp Pulse Resp B/P (MAP) Pulse Ox O2 Delivery O2 Flow Rate FiO2 10/26/17 09:59 96 Nasal Cannula 3.00 10/26/17 09:56 Nasal Cannula 3.00 96 10/26/17 09:37 99 Trach Collar 5.00 28 10/26/17 08:00 98.4 78 20 118/71 (87) 99 10/26/17 04:28 100 Trach Collar 6.00 28 10/26/17 04:03 75 10/26/17 04:00 99.2 75 18 139/78 (98) 100 10/26/17 00:00 76 10/26/17 00:00 98.3 75 18 130/75 (93) 99 10/25/17 20:23 75 10/25/17 19:00 Trach Collar 6.00 28 Humidified 10/25/17 16:05 98.1 78 20 125/68 (87) 100 10/25/17 12:28 99.2 76 18 132/73 (92) 93 I/O 10/25/17 10/25/17 10/25/17 10/26/17 10/26/17 10/26/17 07:00 15:00 23:00 07:00 15:00 23:00 Intake Total 1676 ml Output Total 750 ml 0 ml 1000 ml Balance 1676 ml -750 ml 0 ml -1000 ml Tube Feeding 746 ml Tube Irrigant 30 ml Other 900 ml Output Urine Total 750 ml 1000 ml Tube Feeding Residual Discard 0 ml # Bowel Movements 0 Result Diagram: 10/24/17 0703 10/24/17 0705 Other Results Laboratory Tests Test 10/24/17 07:03 10/24/17 07:05 White Blood Count 6.6 TH/MM3 Red Blood Count 3.42 MIL/MM3 Hemoglobin 9.0 GM/DL Hematocrit 29.4 % Mean Corpuscular Volume 85.8 FL Mean Corpuscular Hemoglobin 26.4 PG Mean Corpuscular Hemoglobin Concent 30.7 % Red Cell Distribution Width 15.6 % Platelet Count 313 TH/MM3 Mean Platelet Volume 9.3 FL Neutrophils (%) (Auto) 68.4 % Lymphocytes (%) (Auto) 20.3 % Monocytes (%) (Auto) 9.6 % Eosinophils (%) (Auto) 1.4 % Basophils (%) (Auto) 0.3 % Neutrophils # (Auto) 4.5 TH/MM3 Lymphocytes # (Auto) 1.3 TH/MM3 Monocytes # (Auto) 0.6 TH/MM3 Eosinophils # (Auto) 0.1 TH/MM3 Basophils # (Auto) 0.0 TH/MM3 CBC Comment DIFF FINAL Differential Comment Blood Urea Nitrogen 21 MG/DL Creatinine 0.84 MG/DL Random Glucose 124 MG/DL Total Protein 6.5 GM/DL Albumin 2.4 GM/DL Calcium Level 8.8 MG/DL Phosphorus Level 3.9 MG/DL Magnesium Level 2.2 MG/DL Alkaline Phosphatase 85 U/L Aspartate Amino Transf (AST/SGOT) 33 U/L Alanine Aminotransferase (ALT/SGPT) 30 U/L Total Bilirubin 0.3 MG/DL Sodium Level 138 MEQ/L Potassium Level 4.2 MEQ/L Chloride Level 102 MEQ/L Carbon Dioxide Level 30.3 MEQ/L Anion Gap 6 MEQ/L Estimat Glomerular Filtration Rate 120 ML/MIN Imaging Last Impressions Chest X-Ray 10/24/17 0600 Signed Impressions: Service Date/Time: Tuesday, October 24, 2017 04:21 - CONCLUSION: No significant interval change. Iain Fragoso MD Maxillofacial CT 09/16/17 0000 Signed Impressions: Service Date/Time: September 01:03 - CONCLUSION: 1. Evidence of acute pansinusitis. 2. Opacification of multiple bilateral mastoid air cells most characteristic of mastoiditis. 3. Mildly prominent cervical chain nodes which may be reactive. Angelo Conn MD Upper Extremity Ultrasound 09/15/17 0000 Signed Impressions: Service Date/Time: Friday, September 15, 2017 17:14 - CONCLUSION: Occlusive thrombus within the left cephalic vein and nonocclusive thrombus within the right cephalic vein. Ric Jack MD Lower Extremity Ultrasound 09/15/17 0000 Signed Impressions: Service Date/Time: Friday, September 15, 2017 16:58 - CONCLUSION: No evidence of DVT within the lower extremities. Ric Jack MD Head CT 09/13/17 0800 Signed Impressions: Service Date/Time: Wednesday, September 13, 2017 09:17 - CONCLUSION: 1. Resolving left basal ganglia hematoma Natan Lagos MD Chest CT 09/13/17 0000 Signed Impressions: Service Date/Time: Wednesday, September 13, 2017 09:28 - CONCLUSION: 1. Bibasilar and left lingular dependent atelectatic changes. Lungs are otherwise clear. 2. Tracheostomy tube with the tip probably positioned above the connie. 3. Compensated cardiomegaly. Reyes Guzman MD Abdomen/Pelvis CT 09/13/17 0000 Signed Impressions: Service Date/Time: Wednesday, September 13, 2017 09:28 - CONCLUSION: 1. There is some stranding in the retroperitoneal perivascular tissues around the distal aorta extending into the bifurcation with a regional borderline lymph nodes. Findings are characteristic of a nonspecific inflammatory process. Findings could represent early retroperitoneal fibrosis.. 2. Urinary bladder is decompressed with some mural thickening in pericystic inflammatory changes possibly representing a chronic cystitis. Nondependent air could be associated with a recent catheterization/instrumentation. 3. Small umbilical and right inguinal hernias only contain fat. 4. Bilateral dependent basilar and left lingular atelectatic changes. Heart size is borderline prominent. 5. Otherwise , bowel is intact without obstruction to explain abdominal distention Reyes Guzman MD Abdomen X-Ray 09/10/17 0600 Signed Impressions: Service Date/Time: Sunday, September 10, 2017 03:56 - CONCLUSION: No significant abnormality is identified. There is mild distention of the colon but there are no findings to suggest bowel obstruction or significant ileus. Ignacio Underwood MD Liver Ultrasound 09/07/17 0000 Signed Impressions: Service Date/Time: Thursday, September 07, 2017 12:37 - CONCLUSION: 1. Unremarkable sonographic appearance of the liver. No evidence for hepatic volume loss or intrahepatic ductal dilatation. 2. No sonographic evidence for cholelithiasis or acute cholecystitis. 3. Mild increased right renal echogenicity may reflect medical renal disease. 4. Small bilateral pleural effusions. 5. Pancreas and inferior pole of the right kidney are obscured by bowel gas and therefore not evaluated. Darrell Robles MD Renal Ultrasound 08/31/17 0000 Signed Impressions: Service Date/Time: Thursday, August 31, 2017 17:42 - CONCLUSION: 1. No evidence of hydronephrosis on either side. 2. Solitary linear echogenic focus in the upper pole parenchyma of the right kidney has similar features to prior examination in January 2017 and possibly represents a calcification. David Snell MD Neck CTA 08/28/17 2347 Signed Impressions: Service Date/Time: Tuesday, August 29, 2017 00:13 - CONCLUSION: Negative carotid CTA. David Snell MD Head CTA 08/28/17 2347 Signed Impressions: Service Date/Time: Tuesday, August 29, 2017 00:13 - CONCLUSION: 1. No evidence of vessel truncation or aneurysm. 2. No abnormal vessels in the region of the large left thalamic hemorrhage. David Snell MD Objective Remarks GENERAL: Awake and alert moves left side- LESS flaccid on the right side - MOVING SOME-has tracheostomy in place and PEG tube in place SKIN: Warm and dry. HEAD: Atraumatic. Normocephalic. EYES: Pupils equal and round. No scleral icterus. No injection or drainage. ENT: No nasal bleeding or discharge. Mucous membranes pink and moist. NECK: Trachea midline. No JVD. Tracheostomy in place WITH PASSY DIANA VALVE IN PLACE NOW CARDIOVASCULAR: Regular rate and rhythm. S1 and S2 no S3 or S4 RESPIRATORY: No accessory muscle use.. Breath sounds equal bilaterally. Coarse breath sounds bilaterally GASTROINTESTINAL: Abdomen soft, non-tender, nondistended. Hepatic and splenic margins not palpable. PEG tube CONDOM CATHETER IN PLACE MUSCULOSKELETAL: Extremities without clubbing, cyanosis, or edema. No obvious deformities. Right side flaccid moves left side NEUROLOGICAL: Awake and alert. No obvious cranial nerve deficits. Motor grossly within normal limits. Five out of 5 muscle strength in the left arms and legs--LESS flaccid on the right- NO MOVING SOME. USING PASSY DIANA VALVE NOW PSYCHIATRIC: Appropriate mood and affect; insight and judgment BETTER- HAS PASSY DIANA VALVE CAN COMMUNICATE BETTER Procedures Tracheostomy and PEG placement Medications and IVs Current Medications Sodium Chloride 1,000 ml @ 70 mls/hr [id number] ONCE IV ; Start 08/28/17 at 23:47 ; Stop 08/29/17 at 14:04; Status DC Nicardipine HCl 25 mg/Sodium Chloride 250 ml @ 50 mls/hr TITRATE PRN IV Blood pressure management; Start 08/29/17 at 00:00; Stop 08/29/17 at 00:48; Status DC Propofol 100 ml @ 0 mls/hr TITRATE PRN IV SEDATION; Start 08/29/17 at 00:00; Stop 08/29/17 at 00:40; Status DC Propofol 100 ml @ As Directed STK-MED ONCE .ROUTE ; Start 08/28/17 at 23:57; Stop 08/28/17 at 23:58; Status DC Etomidate (Amidate Inj) 20 mg ONCE ONCE IVP ; Start 08/29/17 at 00:00; Stop 08/29/17 at 00:01; Status DC Succinylcholine Chloride (Quelicin Inj) 100 mg ONCE ONCE IV PUSH ; Start 08/29 at 00:00; Stop 08/29/17 at 00:01; Status DC Sodium Chloride (NS Flush) 2 ml UNSCH PRN IVF FLUSH AFTER USING IV ACCESS Last administered on 10/24/17at 20:44; Start 08/29/17 at 00:00 Rocuronium Hammond (Zemuron Inj) 50 mg BOLUS ONCE IV ; Start 08/29/17 at 00:15 ; Stop 08/29/17 at 00:17; Status DC Iohexol (Omnipaque 350 Inj) 100 ml STK-MED ONCE IVCONTRAST Last administered on 08/29/17t 00:18; Start 08/29/17 at 00:18; Stop 08/29/17 at 00:19; Status DC Chlorhexidine Gluconate (Peridex 0.12% Liq) 15 ml BID@08,20 MT Last administered on 10/11/17at 09:59; Start 08/29/17 at 08:00; Stop 10/11/17 at 14:08 ; Status DC Propofol 100 ml @ 3 mls/hr TITRATE PRN IV SEDATION; Start 08/29/17 at 00:45; Stop 08/29/17 at 04:17; Status DC Nicardipine HCl (Cardene Inj) 25 mg STK-MED ONCE .ROUTE ; Start 08/29/17 at 00: 36; Stop 08/29/17 at 00:37; Status DC Nicardipine HCl 25 mg/Sodium Chloride 250 ml @ 50 mls/hr TITRATE PRN IV BLOOD PRESSURE MANAGEMENT Last administered on 09/02/17 09:52; Start 08/29/17 at 00 :45; Stop 09/02/17 at 21:12; Status DC Labetalol HCl (Trandate Inj) 10 mg Q20M PRN IV PUSH SBP>140, DBP>90 Last administered on 09/19/17 02:16; Start 08/29/17 at 00:45 Amlodipine Besylate (Norvasc) 10 mg DAILY PO Last administered on 09/24/17 09 :14; Start 08/29/17 at 09:00; Stop 09/25/17 at 09:29; Status DC Lisinopril (Prinivil) 40 mg DAILY PO Last administered on 09/04/17 09:07; Start 08/29/17 at 09:00; Stop 09/04/17 at 12:18; Status DC Sodium Chloride 1,000 ml @ 75 mls/hr [id number] IV Last administered on 06:03; Start 08/29/17 at 00:43; Stop 08/31/17 at 11:07; Status DC Acetaminophen (Tylenol) 650 mg Q6H PRN PO PAIN 1-5 AND/OR FEVER >101F Last administered on 09/23/17 03:09; Start 08/29/17 at 00:45; Stop 09/25/17 at 09 :29; Status DC Morphine Sulfate (Morphine Inj) 2 mg Q2H PRN IV PUSH PAIN SCALE 6 TO 10 Last administered on 09/17/17 03:33; Start 08/29/17 at 00:45; Stop 09/24/17 at 16: 27; Status DC Pantoprazole Sodium (Protonix Inj) 40 mg DAILY IV PUSH Last administered on 09:15; Start 08/29/17 at 09:00; Stop 09/11/17 at 10:25; Status DC Ondansetron HCl (Zofran Inj) 4 mg Q6H PRN IV PUSH NAUSEA OR VOMITING Last administered on 09/11/17 14:18; Start 08/29/17 at 00:45 Albuterol/ Ipratropium (Duoneb Neb) 1 ampule Q4HR NEB PRN INH WHEEZING Last administered on 09/15/17 11:55; Start 08/29/17 at 00:45; Stop 09/17/17 at 12: 47; Status DC Miscellaneous Information 1 [id number] Last administered on 08/29/17 01:00; Start 08/29/17 at 00:45; Stop 10/24/17 at 04:26; Status DC Chlorhexidine Gluconate (Chlorhexidine 2% Cloth) Taper DAILY@04 TOP ; Start at 04:00; Stop 10/24/17 at 04:26; Status DC Chlorhexidine Gluconate (Chlorhexidine 2% Cloth) 3 pack UNSCH PRN TOP HYGIENIC CARE; Start 08/29/17 at 00:45; Stop 10/24/17 at 04:26; Status DC Senna/Docusate Sodium (Melina-Colace) 1 tab BID PO Last administered on 09:15; Start 08/29/17 at 09:00; Stop 08/31/17 at 11:08; Status DC Magnesium Hydroxide (Milk Of Magnesia Liq) 30 ml Q12H PRN PO Mild constipation ; Start 08/29/17 at 00:45; Stop 08/31/17 at 11:08; Status DC Sennosides (Senokot) 17.2 mg Q12H PRN PO Moderate constipation; Start at 00:45; Stop 08/31/17 at 11:08; Status DC Bisacodyl (Dulcolax Supp) 10 mg DAILY PRN RECTAL SEVERE CONSITIPATION; Start 08/29/17 at 00:45; Stop 08/31/17 at 11:08; Status DC Lactulose (Lactulose Liq) 30 ml DAILY PRN PO SEVERE CONSITIPATION; Start 08/29 at 00:45; Stop 08/31/17 at 11:08; Status DC Fentanyl Citrate 250 ml @ 5 mls/hr TITRATE PRN IV SEDATION Last administered on 09/11/17 06:14; Start 08/29/17 at 00:45; Stop 09/11/17 at 10:20; Status DC Fentanyl Citrate 250 ml @ As Directed STK-MED ONCE .ROUTE ; Start 08/29/17 at 01:30; Stop 08/29/17 at 04:10; Status DC Propofol 100 ml @ 3 mls/hr TITRATE PRN IV SEDATION Last administered on 07:37; Start 08/29/17 at 04:30; Stop 08/31/17 at 11:08; Status DC Rocuronium Hammond (Zemuron Inj) 100 mg STAT ONCE IV Last administered on 02:00; Start 08/29/17 at 02:00; Stop 08/29/17 at 04:18; Status DC Atorvastatin Calcium (Lipitor) 40 mg HS PO Last administered on 09/24/17 20: 43; Start 08/29/17 at 21:00; Stop 09/25/17 at 09:29; Status DC Hydrochlorothiazide (Hydrodiuril) 25 mg DAILY PO Last administered on 10:37; Start 08/29/17 at 09:00; Stop 09/08/17 at 11:02; Status DC Metoprolol Tartrate (Lopressor) 100 mg BID PO Last administered on 08/31/17 09:15; Start 08/29/17 at 09:00; Stop 09/11/17 at 10:20; Status DC Clonidine (Catapres) 0.1 mg Q8HR PO Last administered on 09/06/17 04:55; Start 08/29/17 at 06:00; Stop 09/06/17 at 11:33; Status DC Sodium Chloride 1,000 ml @ 999 mls/hr Q1H1M ONCE IV Last administered on 08/29 06:10; Start 08/29/17 at 06:30; Stop 08/29/17 at 07:30; Status DC Magnesium Oxide (Mag-Ox) 800 mg UNSCH PRN PO For Magnesium 1.2 - 1.6 mg/dL; Start 08/29/17 at 13:15; Stop 08/30/17 at 15:34; Status DC Magnesium Sulfate 4 gm/Sodium Chloride 100 ml @ 50 mls/hr UNSCH PRN IV For Magnesium 0.9 - 1.1 mg/dL; Start 08/29/17 at 13:15; Stop 08/30/17 at 15:34; Status DC Magnesium Sulfate 2 gm/Sodium Chloride 100 ml @ 50 mls/hr UNSCH PRN IV For Magnesium 1.2 - 1.6 mg/dL; Start 08/29/17 at 13:15; Stop 08/30/17 at 15:34; Status DC Potassium Chloride 100 ml @ 50 mls/hr Q2H PRN IV For Potassium 2.8 - 3.2 mEq/ L Last administered on 08/29/17t 17:06; Start 08/29/17 at 13:15; Stop at 15:34; Status DC Potassium Chloride 100 ml @ 50 mls/hr Q2H PRN IV For Potassium 3.3 - 3.5 mEq/ L Last administered on 08/30/17t 06:13; Start 08/29/17 at 13:15; Stop at 15:34; Status DC Potassium Chloride 100 ml @ 50 mls/hr Q2H PRN IV For Potassium 2.8 - 3.2 mEq/L ; Start 08/29/17 at 13:15; Stop 08/30/17 at 15:34; Status DC Potassium Chloride 100 ml @ 25 mls/hr UNSCH PRN IV For Potassium 3.3 - 3.5 mEq /L; Start 08/29/17 at 13:15; Stop 08/30/17 at 15:34; Status DC Potassium Phosphate (K-Phos) 2,000 mg Q4H PRN PO For Phosphorus < 2.5 mg/dL; Start 08/29/17 at 13:15; Stop 08/30/17 at 15:34; Status DC Potassium Phosphate (K-Phos) 2,000 mg UNSCH PRN PO/TUBE SEE LABEL COMMENTS; Start 08/29/17 at 13:15; Stop 08/30/17 at 15:34; Status DC Potassium Phosphate 30 mmol/ Sodium Chloride 260 ml @ 42 mls/hr UNSCH PRN IV SEE LABEL COMMENTS; Start 08/29/17 at 13:15; Stop 08/30/17 at 15:34; Status DC Sodium Phosphate 30 mmol/Sodium Chloride 250 ml @ 42 mls/hr UNSCH PRN IV For Phosphorus < 2.5 mg/dL; Start 08/29/17 at 13:15; Stop 08/30/17 at 15:34; Status DC Dextrose (D50w (Vial) Inj) 25 ml UNSCH PRN IV PUSH HYPOGLYCEMIA-SEE COMMENTS; Start 08/30/17 at 08:15; Stop 09/18/17 at 11:53; Status DC Insulin Human Regular (NovoLIN R SUPPLEMENTAL SCALE) 1 Q6HR SQ Last administered on 09/18/17t 05:34; Start 08/30/17 at 12:00; Stop 09/18/17 at 11: 53; Status DC Magnesium Oxide (Mag-Ox) 800 mg UNSCH PRN PO For Magnesium 1.2 - 1.6 mg/dL; Start 08/30/17 at 08:15; Stop 08/31/17 at 13:02; Status DC Magnesium Sulfate 4 gm/Sodium Chloride 100 ml @ 50 mls/hr UNSCH PRN IV For Magnesium 0.9 - 1.1 mg/dL; Start 08/30/17 at 08:15; Stop 08/31/17 at 13:02; Status DC Magnesium Sulfate 2 gm/Sodium Chloride 100 ml @ 50 mls/hr UNSCH PRN IV For Magnesium 1.2 - 1.6 mg/dL; Start 08/30/17 at 08:15; Stop 08/31/17 at 13:02; Status DC Potassium Chloride 100 ml @ 50 mls/hr Q2H PRN IV For Potassium 2.8 - 3.2 mEq/L ; Start 08/30/17 at 08:15; Stop 08/31/17 at 13:02; Status DC Potassium Chloride 100 ml @ 50 mls/hr Q2H PRN IV For Potassium 3.3 - 3.5 mEq/L ; Start 08/30/17 at 08:15; Stop 08/31/17 at 13:02; Status DC Potassium Chloride 100 ml @ 50 mls/hr Q2H PRN IV For Potassium 2.8 - 3.2 mEq/L ; Start 08/30/17 at 08:15; Stop 08/31/17 at 13:02; Status DC Potassium Chloride 100 ml @ 25 mls/hr UNSCH PRN IV For Potassium 3.3 - 3.5 mEq /L; Start 08/30/17 at 08:15; Stop 08/31/17 at 13:02; Status DC Potassium Phosphate (K-Phos) 2,000 mg Q4H PRN PO For Phosphorus < 2.5 mg/dL; Start 08/30/17 at 08:15; Stop 08/31/17 at 13:02; Status DC Potassium Phosphate (K-Phos) 2,000 mg UNSCH PRN PO/TUBE SEE LABEL COMMENTS; Start 08/30/17 at 08:15; Stop 08/31/17 at 13:02; Status DC Potassium Phosphate 30 mmol/ Sodium Chloride 260 ml @ 42 mls/hr UNSCH PRN IV SEE LABEL COMMENTS; Start 08/30/17 at 08:15; Stop 08/31/17 at 13:02; Status DC Sodium Phosphate 30 mmol/Sodium Chloride 250 ml @ 42 mls/hr UNSCH PRN IV For Phosphorus < 2.5 mg/dL; Start 08/30/17 at 08:15; Stop 08/31/17 at 13:02; Status DC Hydralazine HCl (Apresoline Inj) 10 mg Q30M PRN IV PUSH sbp > 160 Last administered on 09/19/17 09:08; Start 08/30/17 at 08:15 Oxycodone HCl (Roxicodone Intensol Liq) 5 mg Q4H PO Last administered on 09:16; Start 08/30/17 at 09:00; Stop 08/31/17 at 11:07; Status DC Dexmedetomidine HCl 50 ml @ 29.9 mls/hr TITRATE IV ; Start 08/30/17 at 14:15; Stop 08/30/17 at 14:46; Status DC Dexmedetomidine HCl 200 mcg/ Sodium Chloride 50 ml @ 29.9 mls/hr TITRATE IV Last administered on 08/30/17 15:27; Start 08/30/17 at 15:00; Stop 08/30/17 at 16:42; Status DC Dexmedetomidine HCl 1000 mcg/ Sodium Chloride 250 ml @ 29.9 mls/hr TITRATE IV Last administered on 08/30/17 17:58; Start 08/30/17 at 16:45; Stop 08/31/17 at 06:14; Status DC Propofol 100 ml @ 14.352 mls/ hr TITRATE PRN IV SEDATION Last administered on 09/10/17 09:59; Start 08/31/17 at 00:30; Stop 09/11/17 at 10:20; Status DC Piperacillin Sod/ Tazobactam Sod 100 ml @ 200 mls/hr Q6HR IV Last administered on 09/01/17 13:02; Start 08/31/17 at 06:00; Stop 09/01/17 at 14 :52; Status DC Morphine Sulfate (Morphine Inj) 10 mg ONCE ONCE IV PUSH Last administered on 08/31/17 06:31; Start 08/31/17 at 06:30; Stop 08/31/17 at 06:31; Status DC Propranolol HCl (Inderal) 10 mg ONCE ONCE PO Last administered on 08/31/17 06:30; Start 08/31/17 at 06:15; Stop 08/31/17 at 06:20; Status DC Oxycodone HCl (Roxicodone Intensol Liq) 10 mg Q4H PO Last administered on 09:17; Start 08/31/17 at 13:00; Stop 09/11/17 at 10:20; Status DC Propranolol HCl (Inderal) 10 mg Q6HR PO Last administered on 09/11/17 05:37; Start 08/31/17 at 12:00; Stop 09/11/17 at 10:20; Status DC Quetiapine Fumarate (SEROquel) 100 mg Q8HR PO Last administered on 09/11/17 05 :37; Start 08/31/17 at 11:00; Stop 09/11/17 at 10:20; Status DC Haloperidol Lactate (Haldol Inj) 5 mg Q4H PRN IV agitation Last administered on 09/12/17 23:04; Start 08/31/17 at 11:00; Stop 09/25/17 at 09:30; Status DC Magnesium Sulfate/ Dextrose 100 ml @ 100 mls/hr Q1H IV Last administered on 12:22; Start 08/31/17 at 12:00; Stop 08/31/17 at 13:00; Status DC Bisacodyl (Dulcolax Supp) 10 mg DAILY RECTAL Last administered on 08/31/17 11 :58; Start 08/31/17 at 12:00; Stop 09/25/17 at 09:30; Status DC Polyethylene Glycol (Miralax) 17 gm BID PO Last administered on 09/20/17 09: 26; Start 08/31/17 at 12:00; Stop 09/25/17 at 09:29; Status DC Lactulose (Lactulose Liq) 30 ml BID PO Last administered on 09/04/17 19:57; Start 08/31/17 at 12:00; Stop 09/25/17 at 09:30; Status DC Senna/Docusate Sodium (Melina-Colace) 1 tab BID PO Last administered on 09:14; Start 08/31/17 at 12:00; Stop 09/25/17 at 09:29; Status DC Magnesium Citrate (Citroma Liq) 300 ml ONCE ONCE PO Last administered on 08/31 11:57; Start 08/31/17 at 12:00; Stop 08/31/17 at 12:01; Status DC Rocuronium Hammond (Zemuron Inj) 50 mg STK-MED ONCE .ROUTE Last administered on 08/31/17 14:36; Start 08/31/17 at 14:36; Stop 08/31/17 at 14:37; Status DC Calcium Acetate (Phoslo) 667 mg TID PO Last administered on 09/08/17 10:38; Start 08/31/17 at 18:00; Stop 09/08/17 at 11:02; Status DC Rocuronium Hammond (Zemuron Inj) 50 mg STAT ONCE IV Last administered on 08/31 16:00; Start 08/31/17 at 16:00; Stop 08/31/17 at 16:01; Status DC Lactated Ringer's 1,000 ml @ 999 mls/hr BOLUS ONCE IV Last administered on 21:12; Start 08/31/17 at 20:45; Stop 08/31/17 at 21:45; Status DC Piperacillin Sod/ Tazobactam Sod 50 ml @ 100 mls/hr Q6HR IV Last administered on 09/02/17 05:59; Start 09/01/17 at 18:00; Stop 09/02/17 at 10:45; Status DC Piperacillin Sod/ Tazobactam Sod 50 ml @ 100 mls/hr Q8HR IV Last administered on 09/11/17 05:37; Start 09/02/17 at 14:00; Stop 09/11/17 at 10:20; Status DC Nicardipine HCl 50 mg/Sodium Chloride 500 ml @ 50 mls/hr TITRATE PRN IV BLOOD PRESSURE MANAGEMENT Last administered on 09/05/17 22:00; Start 09/02/17 at 21 :15; Stop 09/11/17 at 10:25; Status DC Rocuronium Hammond (Zemuron Inj) 50 mg STK-MED ONCE .ROUTE Last administered on 09/03/17 09:22; Start 09/03/17 at 09:22; Stop 09/03/17 at 09:23; Status DC Rocuronium Hammond (Zemuron Inj) 50 mg NOW ONCE IV PUSH Last administered on 09/03/17 10:13; Start 09/03/17 at 10:15; Stop 09/03/17 at 10:16; Status DC Rocuronium Hammond (Zemuron Inj) 50 mg NOW ONCE IV PUSH Last administered on 09/03/17 11:00; Start 09/03/17 at 11:00; Stop 09/03/17 at 11:01; Status DC Potassium Chloride 30 meq/ Sodium Chloride 115 ml @ 38.333 mls/ hr ONCE ONCE IV-CENTRAL Last administered on 09/03/17 13:36; Start 09/03/17 at 14:00; Stop 09/03/17 at 16:59; Status DC Dexamethasone Sodium Phosphate (Decadron Inj) 6 mg Q6H IV PUSH Last administered on 09/05/17 06:09; Start 09/04/17 at 13:00; Stop 09/05/17 at 11 :55; Status DC Diphenhydramine HCl (Benadryl Inj) 50 mg Q6H IV Last administered on 08:27; Start 09/04/17 at 13:00; Stop 09/07/17 at 12:59; Status DC Lorazepam (Ativan) 2 mg Q8H PO Last administered on 09/07/17 14:35; Start at 15:00; Stop 09/07/17 at 15:18; Status DC Acetaminophen 0 ml @ As Directed STK-MED ONCE IV ; Start 09/05/17 at 07:52; Stop 09/05/17 at 07:53; Status DC Insulin Detemir (Levemir Inj) 10 units Q12H SQ Last administered on 09/11/17 09:16; Start 09/05/17 at 10:00; Stop 09/11/17 at 10:21; Status DC Dexamethasone Sodium Phosphate (Decadron Inj) 4 mg Q12H IV PUSH Last administered on 09/07/17 05:28; Start 09/05/17 at 18:00; Stop 09/07/17 at 17 :59; Status DC Albuterol/ Ipratropium (Duoneb Neb) 1 ampule Q6HR NEB NEB Last administered on 09/08/17 11:05; Start 09/05/17 at 12:00; Stop 09/08/17 at 12:59; Status DC Rocuronium Hammond (Zemuron Inj) 50 mg BOLUS STAT IV Last administered on 16:47; Start 09/05/17 at 16:37; Stop 09/05/17 at 16:38; Status DC Fluticasone Propionate (Flonase Tae Spr) 2 spray DAILY EACH NARE Last administered on 10/26/17at 10:14; Start 09/05/17 at 17:00 Lactated Ringer's 1,000 ml @ 30 mls/hr Q24H PRN IV SEE LABEL COMMENTS; Start 09/05/17 at 23:00; Stop 09/08/17 at 22:59; Status DC Sodium Chloride 500 ml @ 30 mls/hr [id number] PRN IV SEE LABEL COMMENTS; Start at 23:00; Stop 09/08/17 at 22:59; Status DC Metoprolol Tartrate (Lopressor) 25 mg ON AIR TALENT PRN PO SEE LABEL COMMENTS; Start 09/05/17 at 23:00; Stop 09/08/17 at 22:59; Status DC Povidone Iodine (Betadine 5% Antisepsis Kit) 1 applic ON AIR TALENT PRN EACH NARE SEE LABEL COMMENTS; Start 09/05/17 at 23:00; Stop 09/08/17 at 22:59; Status DC Chlorhexidine Gluconate (Chlorhexidine 2% Cloth) 3 pack ON AIR TALENT PRN TOPICAL SEE LABEL COMMENTS; Start 09/05/17 at 23:00; Stop 09/08/17 at 22:59; Status DC Insulin Human Regular (NovoLIN R INJ) See Protocol Table ... ON AIR TALENT PRN SQ SEE PROTOCOL TABLE; Start 09/05/17 at 23:00; Stop 09/08/17 at 22:59; Status DC Potassium Chloride 100 ml @ 50 mls/hr ONCE ONCE IV Last administered on 09/06 10:16; Start 09/06/17 at 09:30; Stop 09/06/17 at 11:29; Status DC Clonidine (Catapres) 0.3 mg Q8HR PO Last administered on 09/25/17 05:27; Start 09/06/17 at 14:00; Stop 09/25/17 at 09:29; Status DC Clonidine (Catapres) 0.3 mg ONCE ONCE PO Last administered on 09/06/17 11:55 ; Start 09/06/17 at 11:45; Stop 09/06/17 at 11:46; Status DC Heparin Sodium (Porcine) (Heparin Inj) 5,000 units Q12HR SQ ; Start 09/06/17 at 21:00; Stop 09/06/17 at 21:00; Status DC Gelatin (Gelfoam 12 Mm/7 Mm Top) 1 foam STK-MED ONCE .ROUTE Last administered on 09/07/17 09:47; Start 09/07/17 at 09:47; Stop 09/07/17 at 09:48; Status DC Silver Nitrate/ Potassium Nitrate (Silver Nitrate Applicators) 1 appl ONCE ONCE TOPICAL Last administered on 09/07/17 10:15; Start 09/07/17 at 10:15; Stop 09/07/17 at 10:47; Status DC Potassium Chloride 100 ml @ 50 mls/hr Q2H IV Last administered on 09/07/17 12:45; Start 09/07/17 at 10:45; Stop 09/07/17 at 14:44; Status DC Desmopressin Acetate (Ddavp Tae Spr) 1 spray ONCE ONCE EACH NARE Last administered on 09/07/17 15:00; Start 09/07/17 at 15:00; Stop 09/07/17 at 15 :01; Status DC Propofol (Diprivan 200 Mg/20 ml Inj) 200 mg STK-MED ONCE IV ; Start 09/06/17 at 12:00; Stop 09/07/17 at 15:10; Status DC Lorazepam (Ativan) 1 mg Q12H PO Last administered on 09/09/17 20:27; Start 09/07/17 at 19:00; Stop 09/11/17 at 10:25; Status DC Gelatin (Gelfoam 12 Mm/7 Mm Top) 1 foam Q2HR PRN TOPICAL if still bleeding from peg Last administered on 09/08/17 08:00; Start 09/07/17 at 19:45 Potassium Chloride 100 ml @ 50 mls/hr Q2H IV Last administered on 09/08/17 11:59; Start 09/08/17 at 09:00; Stop 09/08/17 at 12:59; Status DC Potassium Chloride (KCl) 40 meq ONCE ONCE PO ; Start 09/08/17 at 09:00; Stop 09/08/17 at 12:05; Status DC Potassium Chloride (KCl Powder) 40 meq ONCE ONCE PEG Last administered on 12:15; Start 09/08/17 at 12:15; Stop 09/08/17 at 12:21; Status DC Midazolam HCl (Versed Inj) 10 mg ONCE ONCE IV PUSH ; Start 09/08/17 at 13:00; Stop 09/08/17 at 13:41; Status DC Sodium Chloride 1,000 ml @ 999 mls/hr BOLUS ONCE IV Last administered on 13:00; Start 09/08/17 at 13:00; Stop 09/08/17 at 14:00; Status DC Rocuronium Hammond (Zemuron Inj) 100 mg BOLUS ONCE IV ; Start 09/08/17 at 13: 00; Stop 09/08/17 at 13:44; Status DC Albuterol/ Ipratropium (Duoneb Neb) 1 ampule Q6HR NEB NEB Last administered on 09/12/17 15:34; Start 09/08/17 at 16:00; Stop 09/12/17 at 15:59; Status DC Midazolam HCl (Versed Inj) 10 mg STK-MED ONCE .ROUTE Last administered on 09/08 13:39; Start 09/08/17 at 13:12; Stop 09/08/17 at 13:13; Status DC Rocuronium Hammond (Zemuron Inj) 100 mg STK-MED ONCE .ROUTE Last administered on 09/08/17 13:12; Start 09/08/17 at 13:12; Stop 09/08/17 at 13:13; Status DC Midazolam HCl (Versed Inj) 5 mg STK-MED ONCE .ROUTE Last administered on 13:52; Start 09/08/17 at 13:44; Stop 09/08/17 at 13:45; Status DC Midazolam HCl (Versed Inj) 5 mg STK-MED ONCE .ROUTE Last administered on 13:52; Start 09/08/17 at 13:49; Stop 09/08/17 at 13:50; Status DC Potassium Bicarb/ Potassium Chloride (K-Lyte Cl Eff) 25 meq ONCE ONCE PO Last administered on 09/09/17 11:15; Start 09/09/17 at 11:00; Stop 09/09/17 at 11:03; Status DC Metoclopramide HCl (Reglan Inj) 5 mg Q8HR IV PUSH Last administered on 22:55; Start 09/09/17 at 22:00; Stop 09/11/17 at 10:25; Status DC Potassium Chloride 100 ml @ 50 mls/hr Q2H IV Last administered on 09/10/17 16 :01; Start 09/10/17 at 13:00; Stop 09/10/17 at 16:59; Status DC Insulin Detemir (Levemir Inj) 12 units Q12H SQ Last administered on 09/17/17 10:42; Start 09/11/17 at 22:00; Stop 09/17/17 at 15:27; Status DC Oxycodone HCl (Roxicodone Intensol Liq) 5 mg Q4H PO Last administered on 08:28; Start 09/11/17 at 13:00; Stop 09/17/17 at 12:47; Status DC Propranolol HCl (Inderal) 30 mg Q6HR PO Last administered on 09/17/17 04:23; Start 09/11/17 at 12:00; Stop 09/17/17 at 12:47; Status DC Quetiapine Fumarate (SEROquel) 50 mg Q8HR PO Last administered on 09/12/17 21: 37; Start 09/11/17 at 14:00; Stop 09/25/17 at 09:29; Status DC Modafinil (Provigil) 200 mg DAILY PO Last administered on 09/12/17 09:07; Start 09/11/17 at 12:00; Stop 09/25/17 at 09:30; Status DC Water (Free Water) VOLUME: 200 ML Q4HR G-TUBE Last administered on 09/18/17 08 :00; Start 09/11/17 at 12:00; Stop 09/18/17 at 11:53; Status DC Famotidine (Pepcid) 10 mg BID NG Last administered on 09/23/17 20:42; Start 09/11/17 at 21:00; Stop 09/24/17 at 09:10; Status DC Heparin Sodium (Porcine) (Heparin Inj) 5,000 units Q12HR SQ Last administered on 09/28/17 08:20; Start 09/11/17 at 21:00; Status Future Hold Lorazepam (Ativan Inj) 1 mg ONCE ONCE IV PUSH Last administered on 09/13/17 02:57; Start 09/13/17 at 02:45; Stop 09/13/17 at 02:46; Status DC Pharmacy Profile Note 0 ml @ 0 mls/hr UNSCH OTHER ; Start 09/13/17 at 02:45; Stop 09/17/17 at 10:11; Status DC Piperacillin Sod/ Tazobactam Sod 50 ml @ 100 mls/hr Q6H IV Last administered on 09/19/17 20:26; Start 09/13/17 at 03:00; Stop 09/19/17 at 23:00; Status DC Nicardipine HCl 25 mg/Sodium Chloride 250 ml @ 50 mls/hr TITRATE PRN IV Blood pressure management Last administered on 09/17/17 04:57; Start 09/13/17 at 02: 45; Stop 09/17/17 at 12:47; Status DC Dantrolene Sodium (Dantrium Inj) 70 mg ONCE ONCE IV Last administered on 03:55; Start 09/13/17 at 03:00; Stop 09/13/17 at 03:01; Status DC Vancomycin HCl 2000 mg/Sodium Chloride 520 ml @ 250 mls/hr ONCE ONCE IV Last administered on 09/13/17 05:52; Start 09/13/17 at 04:00; Stop 09/13/17 at 06:04 ; Status DC Vancomycin HCl 2500 mg/Sodium Chloride 525 ml @ 250 mls/hr ONCE ONCE IV Last administered on 09/14/17 12:29; Start 09/14/17 at 12:00; Stop 09/14/17 at 14:05 ; Status DC Potassium Chloride 100 ml @ 50 mls/hr Q2H IV Last administered on 09/15/17 10 :22; Start 09/15/17 at 08:15; Stop 09/15/17 at 12:14; Status DC Dexamethasone Sodium Phosphate (Decadron Inj) 6 mg Q6HR IV PUSH Last administered on 09/17/17 04:24; Start 09/15/17 at 14:15; Stop 09/17/17 at 12:35 ; Status DC Diphenhydramine HCl (Benadryl Inj) 25 mg Q6H IV PUSH Last administered on 08:06; Start 09/15/17 at 15:00; Stop 09/18/17 at 14:59; Status DC Lidocaine HCl (Lidocaine Pf 2% Neb) 1 ml Q6HR NEB PRN NEB cough/bronchial irritation; Start 09/16/17 at 11:30 Vancomycin HCl 1500 mg/Sodium Chloride 515 ml @ 257.5 mls/ hr ONCE ONCE IV Last administered on 09/16/17 17:07; Start 09/16/17 at 15:00; Stop 09/16/17 at 16:59; Status DC Insulin Human Regular (NovoLIN R SUPPLEMENTAL SCALE) 5 ONCE ONCE SQ Last administered on 09/16/17 18:14; Start 09/16/17 at 18:00; Stop 09/16/17 at 18:01 ; Status DC Labetalol HCl (Trandate) 300 mg Q8HR PEG Last administered on 09/25/17 05:26 ; Start 09/17/17 at 14:00; Stop 09/25/17 at 09:31; Status DC Labetalol HCl (Trandate) 300 mg NOW ONCE PEG Last administered on 09/17/17 04 :23; Start 09/17/17 at 04:15; Stop 09/17/17 at 04:16; Status DC Dexamethasone Sodium Phosphate (Decadron Inj) 6 mg Q12HR IV PUSH Last administered on 09/20/17 09:26; Start 09/17/17 at 21:00; Stop 09/20/17 at 20: 59; Status DC Albuterol/ Ipratropium (Duoneb Neb) 1 ampule Q6HR NEB INH Last administered on 09/21/17 08:25; Start 09/17/17 at 16:00; Stop 09/21/17 at 15:59; Status DC Oxycodone HCl (Roxicodone Intensol Liq) 5 mg Q6H PO Last administered on 08:05; Start 09/17/17 at 15:00; Stop 09/18/17 at 12:04; Status DC Propranolol HCl (Inderal) 40 mg Q6HR PO Last administered on 09/25/17 05:26; Start 09/17/17 at 18:00; Stop 09/25/17 at 09:29; Status DC Insulin Detemir (Levemir Inj) 15 units Q12H SQ Last administered on 09/18/17 09:49; Start 09/17/17 at 22:00; Stop 09/18/17 at 11:53; Status DC Water (Free Water) 300 ml Q4HR G-TUBE Last administered on 10/26/17 08:00; Start 09/18/17 at 12:00 Insulin Detemir (Levemir Inj) 18 units Q12H SQ Last administered on 09/18/17 20:09; Start 09/18/17 at 22:00; Stop 09/19/17 at 08:52; Status DC Dextrose (D50w (Vial) Inj) 25 ml UNSCH PRN IV PUSH HYPOGLYCEMIA-SEE COMMENTS; Start 09/18/17 at 12:00 Insulin Human Regular (NovoLIN R SUPPLEMENTAL SCALE) 1 Q4HR SQ Last administered on 09/25/17 04:09; Start 09/18/17 at 12:00; Stop 09/25/17 at 09: 28; Status DC Oxycodone HCl (Roxicodone Intensol Liq) 5 mg Q6H PRN PO pain 6-10 Last administered on 09/18/17 22:56; Start 09/18/17 at 15:00; Stop 09/25/17 at 09: 29; Status DC Hydralazine HCl (Apresoline) 50 mg Q8HR PO Last administered on 09/19/17 05: 12; Start 09/18/17 at 14:00; Stop 09/19/17 at 08:52; Status DC Insulin Detemir (Levemir Inj) 20 units Q12H SQ Last administered on 10/26/17 10:14; Start 09/19/17 at 10:00 Hydralazine HCl (Apresoline) 100 mg Q8HR PO Last administered on 09/25/17 05: 31; Start 09/19/17 at 14:00; Stop 09/25/17 at 09:29; Status DC Dextrose 1,000 ml @ 42 mls/hr [id number] IV Last administered on 09/20/17 09:25 ; Start 09/19/17 at 08:45; Stop 09/20/17 at 11:39; Status DC Sodium Chloride 38.5 meq/Sterile Water 1,009.625 ml @ 42 mls/hr Q24H IV Last administered on 09/25/17 06:01; Start 09/20/17 at 13:00; Stop 09/25/17 at 09 :24; Status DC Acetaminophen 0 ml @ As Directed STK-MED ONCE IV ; Start 09/21/17 at 09:42; Stop 09/21/17 at 09:43; Status DC Hydromorphone HCl (Dilaudid Pf Inj) 2 mg STK-MED ONCE .ROUTE ; Start 09/21/17 at 09:43; Stop 09/21/17 at 09:44; Status DC Sodium Polystyrene Sulfonate (Kayexalate Liq) 30 gm Q2HR PO Last administered on 09/21/17 19:53; Start 09/21/17 at 16:00; Stop 09/21/17 at 21:00; Status DC Famotidine (Pepcid) 20 mg BID NG Last administered on 10/26/17 10:13; Start 09/24/17 at 09:30 Morphine Sulfate (Morphine Inj) 2 mg Q2H PRN IV PUSH breakthru pain Last administered on 10/24/17 20:42; Start 09/24/17 at 16:30 Metoprolol Tartrate (Lopressor) 25 mg Q8H PO Last administered on 09/25/17 05 :25; Start 09/25/17 at 05:00; Stop 09/25/17 at 09:29; Status DC Potassium Bicarb/ Potassium Chloride (K-Lyte Cl Eff) 50 meq ONCE ONCE PO Last administered on 09/25/17 05:25; Start 09/25/17 at 04:30; Stop 09/25/17 at 04:31; Status DC Sodium Chloride 1,000 ml @ 42 mls/hr [id number] IV ; Start 09/25/17 at 10:00; Stop 09/25/17 at 10:00; Status DC Glucagon (Glucagon Inj) 1 mg UNSCH PRN OTHER HYPOGLYCEMIA-SEE COMMENTS; Start 09/25/17 at 09:30 Insulin Aspart (NovoLOG SUPPLEMENTAL SCALE) 1 Q6H SQ Last administered on 05:10; Start 09/25/17 at 12:00 Acetaminophen (Tylenol) 650 mg Q6H PRN G-TUBE PAIN 1-5 AND/OR FEVER >101F Last administered on 10/15/17 23:34; Start 09/25/17 at 12:45 Amlodipine Besylate (Norvasc) 10 mg DAILY G-TUBE Last administered on 10:13; Start 09/26/17 at 09:00 Atorvastatin Calcium (Lipitor) 40 mg HS DOBHOFF Last administered on 10/25/17 21:37; Start 09/25/17 at 21:00 Clonidine (Catapres) 0.3 mg Q8HR G-TUBE Last administered on 10/26/17 05:09; Start 09/25/17 at 14:00 Senna/Docusate Sodium (Melina-Colace) 1 tab BID G-TUBE Last administered on 10:07; Start 09/25/17 at 21:00 Hydralazine HCl (Apresoline) 100 mg Q8HR G-TUBE Last administered on 10/26/17 05:09; Start 09/25/17 at 14:00 Metoprolol Tartrate (Lopressor) 25 mg Q8H G-TUBE ; Start 09/25/17 at 13:00; Stop 09/25/17 at 13:00; Status DC Oxycodone HCl (Roxicodone Intensol Liq) 5 mg Q6H PRN G-TUBE pain 6-10 Last administered on 10/25/17 13:36; Start 09/25/17 at 15:00 Polyethylene Glycol (Miralax) 17 gm BID G-TUBE Last administered on 10/24/17 09:10; Start 09/25/17 at 21:00 Propranolol HCl (Inderal) 40 mg Q6HR G-TUBE Last administered on 10/26/17 05: 09; Start 09/25/17 at 12:00 Quetiapine Fumarate (SEROquel) 50 mg Q8HR G-TUBE Last administered on 05:09; Start 09/25/17 at 14:00 Albuterol Sulfate (Albuterol Neb) 2.5 mg Q2HR NEB PRN NEB sob/wheeze Last administered on 10/11/17 17:07; Start 09/25/17 at 13:30 Cefuroxime Axetil (Ceftin) 500 mg Q12HR PO Last administered on 10/03/17t 09: 03; Start 09/26/17 at 11:15; Stop 10/03/17 at 11:14; Status DC Sodium Chloride 250 ml @ 15 mls/hr ONCE ONCE IV ; Start 09/28/17 at 10:15; Stop 09/28/17 at 16:53; Status DC Chlorhexidine Gluconate (Peridex 0.12% Liq) 15 ml TID SWISH-SPIT Last administered on 10/24/17 09:00; Start 10/11/17 at 18:00 Methylprednisolone Sodium Succinate (SoluMEDROL INJ) 125 mg ONCE ONCE IV PUSH Last administered on 10/20/17 13:09; Start 10/20/17 at 12:15; Stop 10/20/17 at 12:16; Status DC Albuterol/ Ipratropium (Duoneb Neb) 1 ampule Q6HR NEB NEB Last administered on 10/26/17 09:36; Start 10/23/17 at 16:00 A/P Problem List: (1) Intracranial hemorrhage ICD Code: I62.9 - Nontraumatic intracranial hemorrhage, unspecified Status: Acute Assessment and Plan Assessment and Plan A/P Acute encephalopathy - improving. Left Thalamic Hemorrhage Intracerebral Hemorrhage - Repeat CT of the head showed improving bleed - Neurosurgery follow-up appreciated; stable for dc to SNF per neurosurgery. - Continue rehabilitation efforts with PT, OT, speech - On Seroquel to control agitated delirium. Roxicodone as needed for pain Anemia likely due to chronic disease. H/H fairly stable. will monitor periodically. Healthcare associated pneumonia finished the course of antibiotic. UTI: treated. Respiratory failure s/p trach - Tolerating T piece - CT of the chest 09/13/17 -LLL infiltrate. Repeat chest x-ray on 09/26/17 shows stable left lower lobe consolidation - continue neb treatment. -Patient had angioedema, source unclear and was seen by ENT. He was treated with steroids. Per ENT, expect slow improvement. This is resolving. -Appreciate pulmonology following for trach management Respiratory failure s/p trach -Did not tolerate trach 10/14/17, -trial of trach capping .... Will give Solu-Medrol 125 mg IV 1 now and attempt another trial this afternoon 10/20/17 HAS PASSY DIANA VALVE IN PLACE AND USING IT WEL Hyperglycemia - persistent. - Continue Levemir 20 units SQ q12h - Continue sliding scale insulin with Accu-Cheks. - hemoglobin A1c 9.1. Hypertension - Intermittent hypertension now well controlled - Continue clonidine, amlodipine and propranolol - Continue hydralazine. Nutrition status: - Status post PEG tube continue tube feeds - Having bowel movements - Continue Free water - ST TO WORK WITH PATIENT REGARDING ADVANCING DIET Acute kidney injury, most likely has CKD per nephrology: Renal function stabilized. - monitor renal function periodically. Physical deconditioning/right sided hemiparesis - OOB to stretcher chair daily - PT/OT following AND SPEECH RIGHT SIDE NOW HAS MORE MOVEMENT IN UE AND LE ON THE RIGHT PERIPHERAL NEUROPATHY- ADJUST MEDS START NEURONTIN 100MG TID PROPH: - SCD's. Pepcid for GI prophylaxis Discharge Planning dc planning to SNF VS INPATIENT REHAB in PROCESS CONTINUE PT AND OT AND ST Discharge Planning Await case management ability to find SNF VS INPATIENT REHAB FOR AGGRESSIVE PT AND OT AND ST Kalen Rice DO Oct 26, 2017 11:46
[2017-10-26] MEDS: GABAPENTIN 100 MG CAP PO SCH ×2 (13:31→17:51)
[2017-10-26] MEDS: ATORVASTATIN 40 MG TAB DOBHOFF SCH (23:44)
[2017-10-27] VITALS (11 sets, daily range): BP systolic 111–157; BP diastolic 64–89; PULSE 70–83; RESP 20–21; TEMP 98.2–99.7; O2SAT 91–99
[2017-10-27] MEDS: PROPRANOLOL HCL 40 MG TAB G-TUBE SCH ×5 (00:01→23:17)
[2017-10-27] MEDS: FREE WATER G-TUBE SCH ×8 (00:02→23:29)
[2017-10-27] MEDS: RESP: ALBUTEROL 2.5 MG/IPRATROPIUM 0.5 MG NEB (SCH) NEB ×2 (04:55→10:00)
[2017-10-27] MEDS: INSULIN ASPART SUPPLEMENTAL SCALE SQ SCH ×4 (05:57→23:17)
[2017-10-27] MEDS: cloNIDine HCL 0.3 MG TAB G-TUBE SCH ×3 (06:00→20:56)
[2017-10-27] MEDS: QUEtiapine FUMARATE 25 MG TAB G-TUBE SCH ×3 (06:00→20:56)
[2017-10-27] MEDS: hydrALAZINE HCL 100 MG TAB G-TUBE SCH ×3 (06:00→20:56)
[2017-10-27] MEDS: DOCUSATE SODIUM 50 MG/SENNA 8.6 MG TAB G-TUBE SCH ×2 (09:39→20:55)
[2017-10-27] MEDS: GABAPENTIN 100 MG CAP PO SCH ×3 (09:39→17:54)
[2017-10-27] MEDS: FAMOTIDINE 20 MG TAB NG SCH ×2 (09:39→20:56)
[2017-10-27] MEDS: CHLORHEXIDINE GLUCONATE 0.12% 15 ML CUP SWISH-SPIT SCH ×3 (09:39→17:55)
[2017-10-27] MEDS: FLUTICASONE PROPIONATE 50 MCG/ACT 16 GM NASAL SPRAY EACH NARE SCH (09:41)
[2017-10-27] MEDS: POLYETHYLENE GLYCOL 17 GM PKG G-TUBE SCH ×2 (09:41→20:55)
[2017-10-27] MEDS: INSULIN DETEMIR 100 UNITS/ML VIAL SQ SCH ×2 (10:00→23:17)
--- NOTE | 2017-10-27 10:19 | HHI.PR ---
Subjective Remarks 1-11 Patient seen and examined Romulus Of trach capping unsuccessful AWAIT SAFE PLACEMENT RIGHT SIDE IS LESS FLACCID 1-12 MOVING RIGHT SIDE MORE- NOT TOTALLY FLACCID MOVING LEFT SIDE WELL CONTINUE PT AND OT 1-13 TOLERATING PASSY DIANA VALVE MOVING RIGHT SIDE MORE TO RUIZ WHEN BED AVAILABLE 1-14 HAS PASSY DIANA VALVE IN PLACE NO NEW COMPLAINTS DW RN AND PT MOVING RIDE SIDE SOME NOW AWAIT RUIZ PLACEMENT 1-15 WANTS TO EAT BUT NEEDS SPEECH CLEARANCE FOR THAT DW RN AND PT HOPEFULLY TO RUIZ SOON NEEDS PT AND OT AND ST 1-16 NOT CLEARED BY SPEECH TO EAT YET DW RN AND PT AWAIT RUIZ HAVING SOME PAIN IN RIGHT ARM/LEG -17 DIET STARTED CLEARED BY SPEECH FOR DIET DW PATIENT AND RN WORKING WITH PT AND OT PASSY DIANA VALVE IN PLACE CONTINUE PT AND OT Objective Vitals Vital Signs Date Time Temp Pulse Resp B/P (MAP) Pulse Ox O2 Delivery O2 Flow Rate FiO2 10/27/17 08:52 99 21 10/27/17 08:52 21 10/27/17 04:00 98.2 73 21 157/75 (102) 99 10/27/17 03:59 72 10/27/17 00:09 81 10/27/17 00:00 98.6 80 20 154/83 (106) 95 10/26/17 21:13 94 10/26/17 20:33 84 10/26/17 20:00 98.6 86 21 154/78 (103) 96 10/26/17 19:00 Room Air 10/26/17 16:00 98.1 89 20 138/70 (92) 94 10/26/17 16:00 87 10/26/17 12:00 81 10/26/17 12:00 99.4 82 20 100/59 (73) 94 I/O 10/26/17 10/26/17 10/26/17 10/27/17 10/27/17 10/27/17 07:00 15:00 23:00 07:00 15:00 23:00 Intake Total 0 ml 180 ml Output Total 1000 ml 1850 ml 850 ml Balance -1000 ml -1850 ml -670 ml Intake Oral 0 ml 180 ml Output Urine Total 1000 ml 1850 ml 850 ml # Bowel Movements 0 0 Result Diagram: 10/24/17 0703 10/27/17 0827 Other Results Laboratory Tests Test 1/17/18 08:27 Random Glucose 89 MG/DL Imaging Last Impressions Chest X-Ray 10/24/17 0600 Signed Impressions: Service Date/Time: Tuesday, October 24, 2017 04:21 - CONCLUSION: No significant interval change. Iain Fragoso MD Maxillofacial CT 09/16/17 0000 Signed Impressions: Service Date/Time: September 01:03 - CONCLUSION: 1. Evidence of acute pansinusitis. 2. Opacification of multiple bilateral mastoid air cells most characteristic of mastoiditis. 3. Mildly prominent cervical chain nodes which may be reactive. Angelo Conn MD Upper Extremity Ultrasound 09/15/17 0000 Signed Impressions: Service Date/Time: Friday, September 15, 2017 17:14 - CONCLUSION: Occlusive thrombus within the left cephalic vein and nonocclusive thrombus within the right cephalic vein. Ric Jack MD Lower Extremity Ultrasound 09/15/17 0000 Signed Impressions: Service Date/Time: Friday, September 15, 2017 16:58 - CONCLUSION: No evidence of DVT within the lower extremities. Ric Jack MD Head CT 09/13/17 0800 Signed Impressions: Service Date/Time: Wednesday, September 13, 2017 09:17 - CONCLUSION: 1. Resolving left basal ganglia hematoma Natan Lagos MD Chest CT 09/13/17 0000 Signed Impressions: Service Date/Time: Wednesday, September 13, 2017 09:28 - CONCLUSION: 1. Bibasilar and left lingular dependent atelectatic changes. Lungs are otherwise clear. 2. Tracheostomy tube with the tip probably positioned above the connie. 3. Compensated cardiomegaly. Reyes Guzman MD Abdomen/Pelvis CT 09/13/17 0000 Signed Impressions: Service Date/Time: Wednesday, September 13, 2017 09:28 - CONCLUSION: 1. There is some stranding in the retroperitoneal perivascular tissues around the distal aorta extending into the bifurcation with a regional borderline lymph nodes. Findings are characteristic of a nonspecific inflammatory process. Findings could represent early retroperitoneal fibrosis.. 2. Urinary bladder is decompressed with some mural thickening in pericystic inflammatory changes possibly representing a chronic cystitis. Nondependent air could be associated with a recent catheterization/instrumentation. 3. Small umbilical and right inguinal hernias only contain fat. 4. Bilateral dependent basilar and left lingular atelectatic changes. Heart size is borderline prominent. 5. Otherwise , bowel is intact without obstruction to explain abdominal distention Reyes Guzman MD Abdomen X-Ray 09/10/17 0600 Signed Impressions: Service Date/Time: Sunday, September 10, 2017 03:56 - CONCLUSION: No significant abnormality is identified. There is mild distention of the colon but there are no findings to suggest bowel obstruction or significant ileus. Ignacio Underwood MD Liver Ultrasound 09/07/17 0000 Signed Impressions: Service Date/Time: Thursday, September 07, 2017 12:37 - CONCLUSION: 1. Unremarkable sonographic appearance of the liver. No evidence for hepatic volume loss or intrahepatic ductal dilatation. 2. No sonographic evidence for cholelithiasis or acute cholecystitis. 3. Mild increased right renal echogenicity may reflect medical renal disease. 4. Small bilateral pleural effusions. 5. Pancreas and inferior pole of the right kidney are obscured by bowel gas and therefore not evaluated. Darrell Robles MD Renal Ultrasound 08/31/17 0000 Signed Impressions: Service Date/Time: Thursday, August 31, 2017 17:42 - CONCLUSION: 1. No evidence of hydronephrosis on either side. 2. Solitary linear echogenic focus in the upper pole parenchyma of the right kidney has similar features to prior examination in January 2017 and possibly represents a calcification. David Snell MD Neck CTA 08/28/177 Signed Impressions: Service Date/Time: Tuesday, August 29, 2017 00:13 - CONCLUSION: Negative carotid CTA. David Snell MD Head CTA 08/28/17 2347 Signed Impressions: Service Date/Time: Tuesday, August 29, 2017 00:13 - CONCLUSION: 1. No evidence of vessel truncation or aneurysm. 2. No abnormal vessels in the region of the large left thalamic hemorrhage. David Snell MD Objective Remarks GENERAL: Awake and alert moves left side- LESS flaccid on the right side - MOVING SOME-has tracheostomy in place and PEG tube in place SKIN: Warm and dry. HEAD: Atraumatic. Normocephalic. EYES: Pupils equal and round. No scleral icterus. No injection or drainage. ENT: No nasal bleeding or discharge. Mucous membranes pink and moist. NECK: Trachea midline. No JVD. Tracheostomy in place WITH PASSY DIANA VALVE IN PLACE NOW CARDIOVASCULAR: Regular rate and rhythm. S1 and S2 no S3 or S4 RESPIRATORY: No accessory muscle use.. Breath sounds equal bilaterally. Coarse breath sounds bilaterally GASTROINTESTINAL: Abdomen soft, non-tender, nondistended. Hepatic and splenic margins not palpable. PEG tube CONDOM CATHETER IN PLACE MUSCULOSKELETAL: Extremities without clubbing, cyanosis, or edema. No obvious deformities. Right side flaccid moves left side NEUROLOGICAL: Awake and alert. No obvious cranial nerve deficits. Motor grossly within normal limits. Five out of 5 muscle strength in the left arms and legs--LESS flaccid on the right- NO MOVING SOME. USING PASSY DIANA VALVE NOW PSYCHIATRIC: Appropriate mood and affect; insight and judgment BETTER- HAS PASSY DIANA VALVE CAN COMMUNICATE BETTER Procedures Tracheostomy and PEG placement Medications and IVs Current Medications Sodium Chloride 1,000 ml @ 70 mls/hr [id number] ONCE IV ; Start 08/28/17 at 23:47 ; Stop 08/29/17 at 14:04; Status DC Nicardipine HCl 25 mg/Sodium Chloride 250 ml @ 50 mls/hr TITRATE PRN IV Blood pressure management; Start 08/29/17 at 00:00; Stop 08/29/17 at 00:48; Status DC Propofol 100 ml @ 0 mls/hr TITRATE PRN IV SEDATION; Start 08/29/17 at 00:00; Stop 08/29/17 at 00:40; Status DC Propofol 100 ml @ As Directed STK-MED ONCE .ROUTE ; Start 08/28/17 at 23:57; Stop 08/28/17 at 23:58; Status DC Etomidate (Amidate Inj) 20 mg ONCE ONCE IVP ; Start 08/29/17 at 00:00; Stop 08/29/17 at 00:01; Status DC Succinylcholine Chloride (Quelicin Inj) 100 mg ONCE ONCE IV PUSH ; Start 08/29 at 00:00; Stop 08/29/17 at 00:01; Status DC Sodium Chloride (NS Flush) 2 ml UNSCH PRN IVF FLUSH AFTER USING IV ACCESS Last administered on 10/24/17at 20:44; Start 08/29/17 at 00:00 Rocuronium Arcadia (Zemuron Inj) 50 mg BOLUS ONCE IV ; Start 08/29/17 at 00:15 ; Stop 08/29/17 at 00:17; Status DC Iohexol (Omnipaque 350 Inj) 100 ml STK-MED ONCE IVCONTRAST Last administered on 08/29/17 00:18; Start 08/29/17 at 00:18; Stop 08/29/17 at 00:19; Status DC Chlorhexidine Gluconate (Peridex 0.12% Liq) 15 ml BID@08,20 MT Last administered on 10/11/17at 09:59; Start 08/29/17 at 08:00; Stop 10/11/17 at 14:08 ; Status DC Propofol 100 ml @ 3 mls/hr TITRATE PRN IV SEDATION; Start 08/29/17 at 00:45; Stop 08/29/17 at 04:17; Status DC Nicardipine HCl (Cardene Inj) 25 mg STK-MED ONCE .ROUTE ; Start 08/29/17 at 00: 36; Stop 08/29/17 at 00:37; Status DC Nicardipine HCl 25 mg/Sodium Chloride 250 ml @ 50 mls/hr TITRATE PRN IV BLOOD PRESSURE MANAGEMENT Last administered on 09/02/17 09:52; Start 08/29/17 at 00 :45; Stop 09/02/17 at 21:12; Status DC Labetalol HCl (Trandate Inj) 10 mg Q20M PRN IV PUSH SBP>140, DBP>90 Last administered on 09/19/17 02:16; Start 08/29/17 at 00:45 Amlodipine Besylate (Norvasc) 10 mg DAILY PO Last administered on 09/24/17 09 :14; Start 08/29/17 at 09:00; Stop 09/25/17 at 09:29; Status DC Lisinopril (Prinivil) 40 mg DAILY PO Last administered on 09/04/17 09:07; Start 08/29/17 at 09:00; Stop 09/04/17 at 12:18; Status DC Sodium Chloride 1,000 ml @ 75 mls/hr [id number] IV Last administered on 06:03; Start 08/29/17 at 00:43; Stop 08/31/17 at 11:07; Status DC Acetaminophen (Tylenol) 650 mg Q6H PRN PO PAIN 1-5 AND/OR FEVER >101F Last administered on 09/23/17 03:09; Start 08/29/17 at 00:45; Stop 09/25/17 at 09 :29; Status DC Morphine Sulfate (Morphine Inj) 2 mg Q2H PRN IV PUSH PAIN SCALE 6 TO 10 Last administered on 09/17/17 03:33; Start 08/29/17 at 00:45; Stop 09/24/17 at 16: 27; Status DC Pantoprazole Sodium (Protonix Inj) 40 mg DAILY IV PUSH Last administered on 09:15; Start 08/29/17 at 09:00; Stop 09/11/17 at 10:25; Status DC Ondansetron HCl (Zofran Inj) 4 mg Q6H PRN IV PUSH NAUSEA OR VOMITING Last administered on 09/11/17 14:18; Start 08/29/17 at 00:45 Albuterol/ Ipratropium (Duoneb Neb) 1 ampule Q4HR NEB PRN INH WHEEZING Last administered on 09/15/17 11:55; Start 08/29/17 at 00:45; Stop 09/17/17 at 12: 47; Status DC Miscellaneous Information 1 [id number] Last administered on 08/29/17 01:00; Start 08/29/17 at 00:45; Stop 10/24/17 at 04:26; Status DC Chlorhexidine Gluconate (Chlorhexidine 2% Cloth) Taper DAILY@04 TOP ; Start at 04:00; Stop 10/24/17 at 04:26; Status DC Chlorhexidine Gluconate (Chlorhexidine 2% Cloth) 3 pack UNSCH PRN TOP HYGIENIC CARE; Start 08/29/17 at 00:45; Stop 10/24/17 at 04:26; Status DC Senna/Docusate Sodium (Melina-Colace) 1 tab BID PO Last administered on 09:15; Start 08/29/17 at 09:00; Stop 08/31/17 at 11:08; Status DC Magnesium Hydroxide (Milk Of Magnesia Liq) 30 ml Q12H PRN PO Mild constipation ; Start 08/29/17 at 00:45; Stop 08/31/17 at 11:08; Status DC Sennosides (Senokot) 17.2 mg Q12H PRN PO Moderate constipation; Start at 00:45; Stop 08/31/17 at 11:08; Status DC Bisacodyl (Dulcolax Supp) 10 mg DAILY PRN RECTAL SEVERE CONSITIPATION; Start 08/29/17 at 00:45; Stop 08/31/17 at 11:08; Status DC Lactulose (Lactulose Liq) 30 ml DAILY PRN PO SEVERE CONSITIPATION; Start 08/29 at 00:45; Stop 08/31/17 at 11:08; Status DC Fentanyl Citrate 250 ml @ 5 mls/hr TITRATE PRN IV SEDATION Last administered on 09/11/17 06:14; Start 08/29/17 at 00:45; Stop 09/11/17 at 10:20; Status DC Fentanyl Citrate 250 ml @ As Directed STK-MED ONCE .ROUTE ; Start 08/29/17 at 01:30; Stop 08/29/17 at 04:10; Status DC Propofol 100 ml @ 3 mls/hr TITRATE PRN IV SEDATION Last administered on 07:37; Start 08/29/17 at 04:30; Stop 08/31/17 at 11:08; Status DC Rocuronium Arcadia (Zemuron Inj) 100 mg STAT ONCE IV Last administered on 02:00; Start 08/29/17 at 02:00; Stop 08/29/17 at 04:18; Status DC Atorvastatin Calcium (Lipitor) 40 mg HS PO Last administered on 09/24/17 20: 43; Start 08/29/17 at 21:00; Stop 09/25/17 at 09:29; Status DC Hydrochlorothiazide (Hydrodiuril) 25 mg DAILY PO Last administered on 10:37; Start 08/29/17 at 09:00; Stop 09/08/17 at 11:02; Status DC Metoprolol Tartrate (Lopressor) 100 mg BID PO Last administered on 08/31/17 09:15; Start 08/29/17 at 09:00; Stop 09/11/17 at 10:20; Status DC Clonidine (Catapres) 0.1 mg Q8HR PO Last administered on 09/06/17 04:55; Start 08/29/17 at 06:00; Stop 09/06/17 at 11:33; Status DC Sodium Chloride 1,000 ml @ 999 mls/hr Q1H1M ONCE IV Last administered on 08/29 06:10; Start 08/29/17 at 06:30; Stop 08/29/17 at 07:30; Status DC Magnesium Oxide (Mag-Ox) 800 mg UNSCH PRN PO For Magnesium 1.2 - 1.6 mg/dL; Start 08/29/17 at 13:15; Stop 08/30/17 at 15:34; Status DC Magnesium Sulfate 4 gm/Sodium Chloride 100 ml @ 50 mls/hr UNSCH PRN IV For Magnesium 0.9 - 1.1 mg/dL; Start 08/29/17 at 13:15; Stop 08/30/17 at 15:34; Status DC Magnesium Sulfate 2 gm/Sodium Chloride 100 ml @ 50 mls/hr UNSCH PRN IV For Magnesium 1.2 - 1.6 mg/dL; Start 08/29/17 at 13:15; Stop 08/30/17 at 15:34; Status DC Potassium Chloride 100 ml @ 50 mls/hr Q2H PRN IV For Potassium 2.8 - 3.2 mEq/ L Last administered on 08/29/17 17:06; Start 08/29/17 at 13:15; Stop at 15:34; Status DC Potassium Chloride 100 ml @ 50 mls/hr Q2H PRN IV For Potassium 3.3 - 3.5 mEq/ L Last administered on 08/30/17 06:13; Start 08/29/17 at 13:15; Stop at 15:34; Status DC Potassium Chloride 100 ml @ 50 mls/hr Q2H PRN IV For Potassium 2.8 - 3.2 mEq/L ; Start 08/29/17 at 13:15; Stop 08/30/17 at 15:34; Status DC Potassium Chloride 100 ml @ 25 mls/hr UNSCH PRN IV For Potassium 3.3 - 3.5 mEq /L; Start 08/29/17 at 13:15; Stop 08/30/17 at 15:34; Status DC Potassium Phosphate (K-Phos) 2,000 mg Q4H PRN PO For Phosphorus < 2.5 mg/dL; Start 08/29/17 at 13:15; Stop 08/30/17 at 15:34; Status DC Potassium Phosphate (K-Phos) 2,000 mg UNSCH PRN PO/TUBE SEE LABEL COMMENTS; Start 08/29/17 at 13:15; Stop 08/30/17 at 15:34; Status DC Potassium Phosphate 30 mmol/ Sodium Chloride 260 ml @ 42 mls/hr UNSCH PRN IV SEE LABEL COMMENTS; Start 08/29/17 at 13:15; Stop 08/30/17 at 15:34; Status DC Sodium Phosphate 30 mmol/Sodium Chloride 250 ml @ 42 mls/hr UNSCH PRN IV For Phosphorus < 2.5 mg/dL; Start 08/29/17 at 13:15; Stop 08/30/17 at 15:34; Status DC Dextrose (D50w (Vial) Inj) 25 ml UNSCH PRN IV PUSH HYPOGLYCEMIA-SEE COMMENTS; Start 08/30/17 at 08:15; Stop 09/18/17 at 11:53; Status DC Insulin Human Regular (NovoLIN R SUPPLEMENTAL SCALE) 1 Q6HR SQ Last administered on 09/18/17t 05:34; Start 08/30/17 at 12:00; Stop 09/18/17 at 11: 53; Status DC Magnesium Oxide (Mag-Ox) 800 mg UNSCH PRN PO For Magnesium 1.2 - 1.6 mg/dL; Start 08/30/17 at 08:15; Stop 08/31/17 at 13:02; Status DC Magnesium Sulfate 4 gm/Sodium Chloride 100 ml @ 50 mls/hr UNSCH PRN IV For Magnesium 0.9 - 1.1 mg/dL; Start 08/30/17 at 08:15; Stop 08/31/17 at 13:02; Status DC Magnesium Sulfate 2 gm/Sodium Chloride 100 ml @ 50 mls/hr UNSCH PRN IV For Magnesium 1.2 - 1.6 mg/dL; Start 08/30/17 at 08:15; Stop 08/31/17 at 13:02; Status DC Potassium Chloride 100 ml @ 50 mls/hr Q2H PRN IV For Potassium 2.8 - 3.2 mEq/L ; Start 08/30/17 at 08:15; Stop 08/31/17 at 13:02; Status DC Potassium Chloride 100 ml @ 50 mls/hr Q2H PRN IV For Potassium 3.3 - 3.5 mEq/L ; Start 08/30/17 at 08:15; Stop 08/31/17 at 13:02; Status DC Potassium Chloride 100 ml @ 50 mls/hr Q2H PRN IV For Potassium 2.8 - 3.2 mEq/L ; Start 08/30/17 at 08:15; Stop 08/31/17 at 13:02; Status DC Potassium Chloride 100 ml @ 25 mls/hr UNSCH PRN IV For Potassium 3.3 - 3.5 mEq /L; Start 08/30/17 at 08:15; Stop 08/31/17 at 13:02; Status DC Potassium Phosphate (K-Phos) 2,000 mg Q4H PRN PO For Phosphorus < 2.5 mg/dL; Start 08/30/17 at 08:15; Stop 08/31/17 at 13:02; Status DC Potassium Phosphate (K-Phos) 2,000 mg UNSCH PRN PO/TUBE SEE LABEL COMMENTS; Start 08/30/17 at 08:15; Stop 08/31/17 at 13:02; Status DC Potassium Phosphate 30 mmol/ Sodium Chloride 260 ml @ 42 mls/hr UNSCH PRN IV SEE LABEL COMMENTS; Start 08/30/17 at 08:15; Stop 08/31/17 at 13:02; Status DC Sodium Phosphate 30 mmol/Sodium Chloride 250 ml @ 42 mls/hr UNSCH PRN IV For Phosphorus < 2.5 mg/dL; Start 08/30/17 at 08:15; Stop 08/31/17 at 13:02; Status DC Hydralazine HCl (Apresoline Inj) 10 mg Q30M PRN IV PUSH sbp > 160 Last administered on 09/19/17 09:08; Start 08/30/17 at 08:15 Oxycodone HCl (Roxicodone Intensol Liq) 5 mg Q4H PO Last administered on 09:16; Start 08/30/17 at 09:00; Stop 08/31/17 at 11:07; Status DC Dexmedetomidine HCl 50 ml @ 29.9 mls/hr TITRATE IV ; Start 08/30/17 at 14:15; Stop 08/30/17 at 14:46; Status DC Dexmedetomidine HCl 200 mcg/ Sodium Chloride 50 ml @ 29.9 mls/hr TITRATE IV Last administered on 08/30/17 15:27; Start 08/30/17 at 15:00; Stop 08/30/17 at 16:42; Status DC Dexmedetomidine HCl 1000 mcg/ Sodium Chloride 250 ml @ 29.9 mls/hr TITRATE IV Last administered on 08/30/17 17:58; Start 08/30/17 at 16:45; Stop 08/31/17 at 06:14; Status DC Propofol 100 ml @ 14.352 mls/ hr TITRATE PRN IV SEDATION Last administered on 09/10/17 09:59; Start 08/31/17 at 00:30; Stop 09/11/17 at 10:20; Status DC Piperacillin Sod/ Tazobactam Sod 100 ml @ 200 mls/hr Q6HR IV Last administered on 09/01/17 13:02; Start 08/31/17 at 06:00; Stop 09/01/17 at 14 :52; Status DC Morphine Sulfate (Morphine Inj) 10 mg ONCE ONCE IV PUSH Last administered on 08/31/17 06:31; Start 08/31/17 at 06:30; Stop 08/31/17 at 06:31; Status DC Propranolol HCl (Inderal) 10 mg ONCE ONCE PO Last administered on 08/31/17 06:30; Start 08/31/17 at 06:15; Stop 08/31/17 at 06:20; Status DC Oxycodone HCl (Roxicodone Intensol Liq) 10 mg Q4H PO Last administered on 09:17; Start 08/31/17 at 13:00; Stop 09/11/17 at 10:20; Status DC Propranolol HCl (Inderal) 10 mg Q6HR PO Last administered on 09/11/17 05:37; Start 08/31/17 at 12:00; Stop 09/11/17 at 10:20; Status DC Quetiapine Fumarate (SEROquel) 100 mg Q8HR PO Last administered on 09/11/17 05 :37; Start 08/31/17 at 11:00; Stop 09/11/17 at 10:20; Status DC Haloperidol Lactate (Haldol Inj) 5 mg Q4H PRN IV agitation Last administered on 09/12/17 23:04; Start 08/31/17 at 11:00; Stop 09/25/17 at 09:30; Status DC Magnesium Sulfate/ Dextrose 100 ml @ 100 mls/hr Q1H IV Last administered on 12:22; Start 08/31/17 at 12:00; Stop 08/31/17 at 13:00; Status DC Bisacodyl (Dulcolax Supp) 10 mg DAILY RECTAL Last administered on 08/31/17 11 :58; Start 08/31/17 at 12:00; Stop 09/25/17 at 09:30; Status DC Polyethylene Glycol (Miralax) 17 gm BID PO Last administered on 09/20/17 09: 26; Start 08/31/17 at 12:00; Stop 09/25/17 at 09:29; Status DC Lactulose (Lactulose Liq) 30 ml BID PO Last administered on 09/04/17 19:57; Start 08/31/17 at 12:00; Stop 09/25/17 at 09:30; Status DC Senna/Docusate Sodium (Melina-Colace) 1 tab BID PO Last administered on 09:14; Start 08/31/17 at 12:00; Stop 09/25/17 at 09:29; Status DC Magnesium Citrate (Citroma Liq) 300 ml ONCE ONCE PO Last administered on 08/31 11:57; Start 08/31/17 at 12:00; Stop 08/31/17 at 12:01; Status DC Rocuronium Arcadia (Zemuron Inj) 50 mg STK-MED ONCE .ROUTE Last administered on 08/31/17 14:36; Start 08/31/17 at 14:36; Stop 08/31/17 at 14:37; Status DC Calcium Acetate (Phoslo) 667 mg TID PO Last administered on 09/08/17 10:38; Start 08/31/17 at 18:00; Stop 09/08/17 at 11:02; Status DC Rocuronium Arcadia (Zemuron Inj) 50 mg STAT ONCE IV Last administered on 08/31 16:00; Start 08/31/17 at 16:00; Stop 08/31/17 at 16:01; Status DC Lactated Ringer's 1,000 ml @ 999 mls/hr BOLUS ONCE IV Last administered on 21:12; Start 08/31/17 at 20:45; Stop 08/31/17 at 21:45; Status DC Piperacillin Sod/ Tazobactam Sod 50 ml @ 100 mls/hr Q6HR IV Last administered on 09/02/17 05:59; Start 09/01/17 at 18:00; Stop 09/02/17 at 10:45; Status DC Piperacillin Sod/ Tazobactam Sod 50 ml @ 100 mls/hr Q8HR IV Last administered on 09/11/17 05:37; Start 09/02/17 at 14:00; Stop 09/11/17 at 10:20; Status DC Nicardipine HCl 50 mg/Sodium Chloride 500 ml @ 50 mls/hr TITRATE PRN IV BLOOD PRESSURE MANAGEMENT Last administered on 09/05/17 22:00; Start 09/02/17 at 21 :15; Stop 09/11/17 at 10:25; Status DC Rocuronium Arcadia (Zemuron Inj) 50 mg STK-MED ONCE .ROUTE Last administered on 09/03/17 09:22; Start 09/03/17 at 09:22; Stop 09/03/17 at 09:23; Status DC Rocuronium Arcadia (Zemuron Inj) 50 mg NOW ONCE IV PUSH Last administered on 09/03/17 10:13; Start 09/03/17 at 10:15; Stop 09/03/17 at 10:16; Status DC Rocuronium Arcadia (Zemuron Inj) 50 mg NOW ONCE IV PUSH Last administered on 09/03/17 11:00; Start 09/03/17 at 11:00; Stop 09/03/17 at 11:01; Status DC Potassium Chloride 30 meq/ Sodium Chloride 115 ml @ 38.333 mls/ hr ONCE ONCE IV-CENTRAL Last administered on 09/03/17 13:36; Start 09/03/17 at 14:00; Stop 09/03/17 at 16:59; Status DC Dexamethasone Sodium Phosphate (Decadron Inj) 6 mg Q6H IV PUSH Last administered on 09/05/17 06:09; Start 09/04/17 at 13:00; Stop 09/05/17 at 11 :55; Status DC Diphenhydramine HCl (Benadryl Inj) 50 mg Q6H IV Last administered on 08:27; Start 09/04/17 at 13:00; Stop 09/07/17 at 12:59; Status DC Lorazepam (Ativan) 2 mg Q8H PO Last administered on 09/07/17 14:35; Start at 15:00; Stop 09/07/17 at 15:18; Status DC Acetaminophen 0 ml @ As Directed STK-MED ONCE IV ; Start 09/05/17 at 07:52; Stop 09/05/17 at 07:53; Status DC Insulin Detemir (Levemir Inj) 10 units Q12H SQ Last administered on 09/11/17 09:16; Start 09/05/17 at 10:00; Stop 09/11/17 at 10:21; Status DC Dexamethasone Sodium Phosphate (Decadron Inj) 4 mg Q12H IV PUSH Last administered on 09/07/17 05:28; Start 09/05/17 at 18:00; Stop 09/07/17 at 17 :59; Status DC Albuterol/ Ipratropium (Duoneb Neb) 1 ampule Q6HR NEB NEB Last administered on 09/08/17 11:05; Start 09/05/17 at 12:00; Stop 09/08/17 at 12:59; Status DC Rocuronium Arcadia (Zemuron Inj) 50 mg BOLUS STAT IV Last administered on 16:47; Start 09/05/17 at 16:37; Stop 09/05/17 at 16:38; Status DC Fluticasone Propionate (Flonase Tae Spr) 2 spray DAILY EACH NARE Last administered on 10/27/17at 09:41; Start 09/05/17 at 17:00 Lactated Ringer's 1,000 ml @ 30 mls/hr Q24H PRN IV SEE LABEL COMMENTS; Start 09/05/17 at 23:00; Stop 09/08/17 at 22:59; Status DC Sodium Chloride 500 ml @ 30 mls/hr [id number] PRN IV SEE LABEL COMMENTS; Start at 23:00; Stop 09/08/17 at 22:59; Status DC Metoprolol Tartrate (Lopressor) 25 mg [employer]PAREL [employer] PRN PO SEE LABEL COMMENTS; Start 09/05/17 at 23:00; Stop 09/08/17 at 22:59; Status DC Povidone Iodine (Betadine 5% Antisepsis Kit) 1 applic [employer] PRN EACH NARE SEE LABEL COMMENTS; Start 09/05/17 at 23:00; Stop 09/08/17 at 22:59; Status DC Chlorhexidine Gluconate (Chlorhexidine 2% Cloth) 3 pack [employer] PRN TOPICAL SEE LABEL COMMENTS; Start 09/05/17 at 23:00; Stop 09/08/17 at 22:59; Status DC Insulin Human Regular (NovoLIN R INJ) See Protocol Table ... [employer] PRN SQ SEE PROTOCOL TABLE; Start 09/05/17 at 23:00; Stop 09/08/17 at 22:59; Status DC Potassium Chloride 100 ml @ 50 mls/hr ONCE ONCE IV Last administered on 09/06 10:16; Start 09/06/17 at 09:30; Stop 09/06/17 at 11:29; Status DC Clonidine (Catapres) 0.3 mg Q8HR PO Last administered on 09/25/17 05:27; Start 09/06/17 at 14:00; Stop 09/25/17 at 09:29; Status DC Clonidine (Catapres) 0.3 mg ONCE ONCE PO Last administered on 09/06/17 11:55 ; Start 09/06/17 at 11:45; Stop 09/06/17 at 11:46; Status DC Heparin Sodium (Porcine) (Heparin Inj) 5,000 units Q12HR SQ ; Start 09/06/17 at 21:00; Stop 09/06/17 at 21:00; Status DC Gelatin (Gelfoam 12 Mm/7 Mm Top) 1 foam STK-MED ONCE .ROUTE Last administered on 09/07/17 09:47; Start 09/07/17 at 09:47; Stop 09/07/17 at 09:48; Status DC Silver Nitrate/ Potassium Nitrate (Silver Nitrate Applicators) 1 appl ONCE ONCE TOPICAL Last administered on 09/07/17 10:15; Start 09/07/17 at 10:15; Stop 09/07/17 at 10:47; Status DC Potassium Chloride 100 ml @ 50 mls/hr Q2H IV Last administered on 09/07/17 12:45; Start 09/07/17 at 10:45; Stop 09/07/17 at 14:44; Status DC Desmopressin Acetate (Ddavp Tae Spr) 1 spray ONCE ONCE EACH NARE Last administered on 09/07/17 15:00; Start 09/07/17 at 15:00; Stop 09/07/17 at 15 :01; Status DC Propofol (Diprivan 200 Mg/20 ml Inj) 200 mg STK-MED ONCE IV ; Start 09/06/17 at 12:00; Stop 09/07/17 at 15:10; Status DC Lorazepam (Ativan) 1 mg Q12H PO Last administered on 09/09/17 20:27; Start 09/07/17 at 19:00; Stop 09/11/17 at 10:25; Status DC Gelatin (Gelfoam 12 Mm/7 Mm Top) 1 foam Q2HR PRN TOPICAL if still bleeding from peg Last administered on 09/08/17 08:00; Start 09/07/17 at 19:45 Potassium Chloride 100 ml @ 50 mls/hr Q2H IV Last administered on 09/08/17 11:59; Start 09/08/17 at 09:00; Stop 09/08/17 at 12:59; Status DC Potassium Chloride (KCl) 40 meq ONCE ONCE PO ; Start 09/08/17 at 09:00; Stop 09/08/17 at 12:05; Status DC Potassium Chloride (KCl Powder) 40 meq ONCE ONCE PEG Last administered on 12:15; Start 09/08/17 at 12:15; Stop 09/08/17 at 12:21; Status DC Midazolam HCl (Versed Inj) 10 mg ONCE ONCE IV PUSH ; Start 09/08/17 at 13:00; Stop 09/08/17 at 13:41; Status DC Sodium Chloride 1,000 ml @ 999 mls/hr BOLUS ONCE IV Last administered on 13:00; Start 09/08/17 at 13:00; Stop 09/08/17 at 14:00; Status DC Rocuronium [place]cad[place] (Zemuron Inj) 100 mg BOLUS ONCE IV ; Start 09/08/17 at 13: 00; Stop 09/08/17 at 13:44; Status DC Albuterol/ Ipratropium (Duoneb Neb) 1 ampule Q6HR NEB NEB Last administered on 09/12/17 15:34; Start 09/08/17 at 16:00; Stop 09/12/17 at 15:59; Status DC Midazolam HCl (Versed Inj) 10 mg STK-MED ONCE .ROUTE Last administered on 09/08 13:39; Start 09/08/17 at 13:12; Stop 09/08/17 at 13:13; Status DC Rocuronium [place]cad[place] (Zemuron Inj) 100 mg STK-MED ONCE .ROUTE Last administered on 09/08/17 13:12; Start 09/08/17 at 13:12; Stop 09/08/17 at 13:13; Status DC Midazolam HCl (Versed Inj) 5 mg STK-MED ONCE .ROUTE Last administered on 13:52; Start 09/08/17 at 13:44; Stop 09/08/17 at 13:45; Status DC Midazolam HCl (Versed Inj) 5 mg STK-MED ONCE .ROUTE Last administered on 13:52; Start 09/08/17 at 13:49; Stop 09/08/17 at 13:50; Status DC Potassium Bicarb/ Potassium Chloride (K-Lyte Cl Eff) 25 meq ONCE ONCE PO Last administered on 09/09/17 11:15; Start 09/09/17 at 11:00; Stop 09/09/17 at 11:03; Status DC Metoclopramide HCl (Reglan Inj) 5 mg Q8HR IV PUSH Last administered on 22:55; Start 09/09/17 at 22:00; Stop 09/11/17 at 10:25; Status DC Potassium Chloride 100 ml @ 50 mls/hr Q2H IV Last administered on 09/10/17 16 :01; Start 09/10/17 at 13:00; Stop 09/10/17 at 16:59; Status DC Insulin Detemir (Levemir Inj) 12 units Q12H SQ Last administered on 09/17/17 10:42; Start 09/11/17 at 22:00; Stop 09/17/17 at 15:27; Status DC Oxycodone HCl (Roxicodone Intensol Liq) 5 mg Q4H PO Last administered on 08:28; Start 09/11/17 at 13:00; Stop 09/17/17 at 12:47; Status DC Propranolol HCl (Inderal) 30 mg Q6HR PO Last administered on 09/17/17 04:23; Start 09/11/17 at 12:00; Stop 09/17/17 at 12:47; Status DC Quetiapine Fumarate (SEROquel) 50 mg Q8HR PO Last administered on 09/12/17 21: 37; Start 09/11/17 at 14:00; Stop 09/25/17 at 09:29; Status DC Modafinil (Provigil) 200 mg DAILY PO Last administered on 09/12/17 09:07; Start 09/11/17 at 12:00; Stop 09/25/17 at 09:30; Status DC Water (Free Water) VOLUME: 200 ML Q4HR G-TUBE Last administered on 09/18/17 08 :00; Start 09/11/17 at 12:00; Stop 09/18/17 at 11:53; Status DC Famotidine (Pepcid) 10 mg BID NG Last administered on 09/23/17 20:42; Start 09/11/17 at 21:00; Stop 09/24/17 at 09:10; Status DC Heparin Sodium (Porcine) (Heparin Inj) 5,000 units Q12HR SQ Last administered on 09/28/17 08:20; Start 09/11/17 at 21:00; Status Future Hold Lorazepam (Ativan Inj) 1 mg ONCE ONCE IV PUSH Last administered on 09/13/17 02:57; Start 09/13/17 at 02:45; Stop 09/13/17 at 02:46; Status DC Pharmacy Profile Note 0 ml @ 0 mls/hr UNSCH OTHER ; Start 09/13/17 at 02:45; Stop 09/17/17 at 10:11; Status DC Piperacillin Sod/ Tazobactam Sod 50 ml @ 100 mls/hr Q6H IV Last administered on 09/19/17 20:26; Start 09/13/17 at 03:00; Stop 09/19/17 at 23:00; Status DC Nicardipine HCl 25 mg/Sodium Chloride 250 ml @ 50 mls/hr TITRATE PRN IV Blood pressure management Last administered on 09/17/17 04:57; Start 09/13/17 at 02: 45; Stop 09/17/17 at 12:47; Status DC Dantrolene Sodium (Dantrium Inj) 70 mg ONCE ONCE IV Last administered on 03:55; Start 09/13/17 at 03:00; Stop 09/13/17 at 03:01; Status DC Vancomycin HCl 2000 mg/Sodium Chloride 520 ml @ 250 mls/hr ONCE ONCE IV Last administered on 09/13/17 05:52; Start 09/13/17 at 04:00; Stop 09/13/17 at 06:04 ; Status DC Vancomycin HCl 2500 mg/Sodium Chloride 525 ml @ 250 mls/hr ONCE ONCE IV Last administered on 09/14/17 12:29; Start 09/14/17 at 12:00; Stop 09/14/17 at 14:05 ; Status DC Potassium Chloride 100 ml @ 50 mls/hr Q2H IV Last administered on 09/15/17 10 :22; Start 09/15/17 at 08:15; Stop 09/15/17 at 12:14; Status DC Dexamethasone Sodium Phosphate (Decadron Inj) 6 mg Q6HR IV PUSH Last administered on 09/17/17 04:24; Start 09/15/17 at 14:15; Stop 09/17/17 at 12:35 ; Status DC Diphenhydramine HCl (Benadryl Inj) 25 mg Q6H IV PUSH Last administered on 08:06; Start 09/15/17 at 15:00; Stop 09/18/17 at 14:59; Status DC Lidocaine HCl (Lidocaine Pf 2% Neb) 1 ml Q6HR NEB PRN NEB cough/bronchial irritation; Start 09/16/17 at 11:30 Vancomycin HCl 1500 mg/Sodium Chloride 515 ml @ 257.5 mls/ hr ONCE ONCE IV Last administered on 09/16/17 17:07; Start 09/16/17 at 15:00; Stop 09/16/17 at 16:59; Status DC Insulin Human Regular (NovoLIN R SUPPLEMENTAL SCALE) 5 ONCE ONCE SQ Last administered on 09/16/17 18:14; Start 09/16/17 at 18:00; Stop 09/16/17 at 18:01 ; Status DC Labetalol HCl (Trandate) 300 mg Q8HR PEG Last administered on 09/25/17 05:26 ; Start 09/17/17 at 14:00; Stop 09/25/17 at 09:31; Status DC Labetalol HCl (Trandate) 300 mg NOW ONCE PEG Last administered on 09/17/17 04 :23; Start 09/17/17 at 04:15; Stop 09/17/17 at 04:16; Status DC Dexamethasone Sodium Phosphate (Decadron Inj) 6 mg Q12HR IV PUSH Last administered on 09/20/17 09:26; Start 09/17/17 at 21:00; Stop 09/20/17 at 20: 59; Status DC Albuterol/ Ipratropium (Duoneb Neb) 1 ampule Q6HR NEB INH Last administered on 09/21/17 08:25; Start 09/17/17 at 16:00; Stop 09/21/17 at 15:59; Status DC Oxycodone HCl (Roxicodone Intensol Liq) 5 mg Q6H PO Last administered on 08:05; Start 09/17/17 at 15:00; Stop 09/18/17 at 12:04; Status DC Propranolol HCl (Inderal) 40 mg Q6HR PO Last administered on 09/25/17 05:26; Start 09/17/17 at 18:00; Stop 09/25/17 at 09:29; Status DC Insulin Detemir (Levemir Inj) 15 units Q12H SQ Last administered on 09/18/17 09:49; Start 09/17/17 at 22:00; Stop 09/18/17 at 11:53; Status DC Water (Free Water) 300 ml Q4HR G-TUBE Last administered on 10/27/17at 04:00; Start 09/18/17 at 12:00 Insulin Detemir (Levemir Inj) 18 units Q12H SQ Last administered on 09/18/17 20:09; Start 09/18/17 at 22:00; Stop 09/19/17 at 08:52; Status DC Dextrose (D50w (Vial) Inj) 25 ml UNSCH PRN IV PUSH HYPOGLYCEMIA-SEE COMMENTS; Start 09/18/17 at 12:00 Insulin Human Regular (NovoLIN R SUPPLEMENTAL SCALE) 1 Q4HR SQ Last administered on 09/25/17 04:09; Start 09/18/17 at 12:00; Stop 09/25/17 at 09: 28; Status DC Oxycodone HCl (Roxicodone Intensol Liq) 5 mg Q6H PRN PO pain 6-10 Last administered on 09/18/17 22:56; Start 09/18/17 at 15:00; Stop 09/25/17 at 09: 29; Status DC Hydralazine HCl (Apresoline) 50 mg Q8HR PO Last administered on 09/19/17 05: 12; Start 09/18/17 at 14:00; Stop 09/19/17 at 08:52; Status DC Insulin Detemir (Levemir Inj) 20 units Q12H SQ Last administered on 10/26/17at 23:46; Start 09/19/17 at 10:00 Hydralazine HCl (Apresoline) 100 mg Q8HR PO Last administered on 09/25/17 05: 31; Start 09/19/17 at 14:00; Stop 09/25/17 at 09:29; Status DC Dextrose 1,000 ml @ 42 mls/hr [id number] IV Last administered on 09/20/17 09:25 ; Start 09/19/17 at 08:45; Stop 09/20/17 at 11:39; Status DC Sodium Chloride 38.5 meq/Sterile Water 1,009.625 ml @ 42 mls/hr Q24H IV Last administered on 09/25/17 06:01; Start 09/20/17 at 13:00; Stop 09/25/17 at 09 :24; Status DC Acetaminophen 0 ml @ As Directed STK-MED ONCE IV ; Start 09/21/17 at 09:42; Stop 09/21/17 at 09:43; Status DC Hydromorphone HCl (Dilaudid Pf Inj) 2 mg STK-MED ONCE .ROUTE ; Start 09/21/17 at 09:43; Stop 09/21/17 at 09:44; Status DC Sodium Polystyrene Sulfonate (Kayexalate Liq) 30 gm Q2HR PO Last administered on 09/21/17 19:53; Start 09/21/17 at 16:00; Stop 09/21/17 at 21:00; Status DC Famotidine (Pepcid) 20 mg BID NG Last administered on 10/27/17 09:39; Start 09/24/17 at 09:30 Morphine Sulfate (Morphine Inj) 2 mg Q2H PRN IV PUSH breakthru pain Last administered on 10/24/17 20:42; Start 09/24/17 at 16:30 Metoprolol Tartrate (Lopressor) 25 mg Q8H PO Last administered on 09/25/17 05 :25; Start 09/25/17 at 05:00; Stop 09/25/17 at 09:29; Status DC Potassium Bicarb/ Potassium Chloride (K-Lyte Cl Eff) 50 meq ONCE ONCE PO Last administered on 09/25/17 05:25; Start 09/25/17 at 04:30; Stop 09/25/17 at 04:31; Status DC Sodium Chloride 1,000 ml @ 42 mls/hr [id number] IV ; Start 09/25/17 at 10:00; Stop 09/25/17 at 10:00; Status DC Glucagon (Glucagon Inj) 1 mg UNSCH PRN OTHER HYPOGLYCEMIA-SEE COMMENTS; Start 09/25/17 at 09:30 Insulin Aspart (NovoLOG SUPPLEMENTAL SCALE) 1 Q6H SQ Last administered on 17:50; Start 09/25/17 at 12:00 Acetaminophen (Tylenol) 650 mg Q6H PRN G-TUBE PAIN 1-5 AND/OR FEVER >101F Last administered on 10/15/17 23:34; Start 09/25/17 at 12:45 Amlodipine Besylate (Norvasc) 10 mg DAILY G-TUBE Last administered on 09:39; Start 09/26/17 at 09:00 Atorvastatin Calcium (Lipitor) 40 mg HS DOBHOFF Last administered on 10/26/17 23:44; Start 09/25/17 at 21:00 Clonidine (Catapres) 0.3 mg Q8HR G-TUBE Last administered on 10/27/17 06:00; Start 09/25/17 at 14:00 Senna/Docusate Sodium (Melina-Colace) 1 tab BID G-TUBE Last administered on 09:39; Start 09/25/17 at 21:00 Hydralazine HCl (Apresoline) 100 mg Q8HR G-TUBE Last administered on 10/27/17at 06:00; Start 09/25/17 at 14:00 Metoprolol Tartrate (Lopressor) 25 mg Q8H G-TUBE ; Start 09/25/17 at 13:00; Stop 09/25/17 at 13:00; Status DC Oxycodone HCl (Roxicodone Intensol Liq) 5 mg Q6H PRN G-TUBE pain 6-10 Last administered on 10/25/17 13:36; Start 09/25/17 at 15:00 Polyethylene Glycol (Miralax) 17 gm BID G-TUBE Last administered on 10/27/17 09:41; Start 09/25/17 at 21:00 Propranolol HCl (Inderal) 40 mg Q6HR G-TUBE Last administered on 10/27/17 06: 02; Start 09/25/17 at 12:00 Quetiapine Fumarate (SEROquel) 50 mg Q8HR G-TUBE Last administered on 06:00; Start 09/25/17 at 14:00 Albuterol Sulfate (Albuterol Neb) 2.5 mg Q2HR NEB PRN NEB sob/wheeze Last administered on 10/11/17at 17:07; Start 09/25/17 at 13:30 Cefuroxime Axetil (Ceftin) 500 mg Q12HR PO Last administered on 10/03/17t 09: 03; Start 09/26/17 at 11:15; Stop 10/03/17 at 11:14; Status DC Sodium Chloride 250 ml @ 15 mls/hr ONCE ONCE IV ; Start 09/28/17 at 10:15; Stop 09/28/17 at 16:53; Status DC Chlorhexidine Gluconate (Peridex 0.12% Liq) 15 ml TID SWISH-SPIT Last administered on 10/27/17 09:39; Start 10/11/17 at 18:00 Methylprednisolone Sodium Succinate (SoluMEDROL INJ) 125 mg ONCE ONCE IV PUSH Last administered on 10/20/17at 13:09; Start 10/20/17 at 12:15; Stop 10/20/17 at 12:16; Status DC Albuterol/ Ipratropium (Duoneb Neb) 1 ampule Q6HR NEB NEB Last administered on 10/27/17at 04:55; Start 10/23/17 at 16:00 Gabapentin (Neurontin) 100 mg TID PO Last administered on 10/27/17at 09:39; Start 10/26/17 at 13:00 A/P Problem List: (1) Intracranial hemorrhage ICD Code: I62.9 - Nontraumatic intracranial hemorrhage, unspecified Status: Acute Assessment and Plan Assessment and Plan A/P Acute encephalopathy - improving. Left Thalamic Hemorrhage Intracerebral Hemorrhage - Repeat CT of the head showed improving bleed - Neurosurgery follow-up appreciated; stable for dc to SNF per neurosurgery. - Continue rehabilitation efforts with PT, OT, speech - On Seroquel to control agitated delirium. Roxicodone as needed for pain Anemia likely due to chronic disease. H/H fairly stable. will monitor periodically. Healthcare associated pneumonia finished the course of antibiotic. UTI: treated. Respiratory failure s/p trach - Tolerating T piece - CT of the chest 09/13/17 -LLL infiltrate. Repeat chest x-ray on 09/26/17 shows stable left lower lobe consolidation - continue neb treatment. -Patient had angioedema, source unclear and was seen by ENT. He was treated with steroids. Per ENT, expect slow improvement. This is resolving. -Appreciate pulmonology following for trach management Respiratory failure s/p trach -Did not tolerate trach 10/14/17, -trial of trach capping .... Will give Solu-Medrol 125 mg IV 1 now and attempt another trial this afternoon 10/20/17 HAS PASSY DIANA VALVE IN PLACE AND USING IT WELL PASSED SPEECH DIET ADVANCED Hyperglycemia - persistent. - Continue Levemir 20 units SQ q12h - Continue sliding scale insulin with Accu-Cheks. - hemoglobin A1c 9.1. Hypertension - Intermittent hypertension now well controlled - Continue clonidine, amlodipine and propranolol - Continue hydralazine. Nutrition status: - Status post PEG tube continue tube feeds - Having bowel movements - Continue Free water - ST TO WORK WITH PATIENT REGARDING ADVANCING DIET DIET ADVANCED- WEAN OFF TUBE FEEDS Acute kidney injury, most likely has CKD per nephrology: Renal function stabilized. - monitor renal function periodically. Physical deconditioning/right sided hemiparesis - OOB to stretcher chair daily - PT/OT following AND SPEECH RIGHT SIDE NOW HAS MORE MOVEMENT IN UE AND LE ON THE RIGHT PERIPHERAL NEUROPATHY- ADJUST MEDS START NEURONTIN 100MG TID PROPH: - SCD's. Pepcid for GI prophylaxis Discharge Planning dc planning to SNF VS INPATIENT REHAB in PROCESS CONTINUE PT AND OT AND ST Discharge Planning Await case management ability to find SNF VS INPATIENT REHAB FOR AGGRESSIVE PT AND OT AND ST Kalen Rice DO Oct 27, 2017 10:19
--- NOTE | 2017-10-27 11:07 | RADRPT ---
EXAM DATE/TIME: 10/27/2017 10:55 [facility] COMPARISON: CT BRAIN W/O CONTRAST, September 13, 2017, 9:17. CT FACIAL BONES W/O CONTRAST, September 16, 2017, 1:0 3. INDICATIONS : Follow up intracerebral hemorrhage. RADIATION DOSE: 49.14 CTDIvol (mGy) MEDICAL HISTORY : Hypertension. SURGICAL HISTORY : None. ENCOUNTER: Initial ACUITY: 1 day PAIN SCALE: 0/10 LOCATION: cranial TECHNIQUE: Multiple contiguous axial images were obtained of the head. Using automated exposure control and adj ustment of the mA and/or kV according to patient size, radiation dose was kept as low as reasonably a chievable to obtain optimal diagnostic quality images. DICOM format image data is available electro nically for review and comparison. FINDINGS: CEREBRUM: The examination demonstrates a small area of encephalomalacia in the left basal ganglia. The hemorrha ge which was in this area has completely resolved. No new areas of intraparenchymal or intraventricul ar hemorrhage are seen. POSTERIOR FOSSA: The cerebellum and brainstem are intact. The 4th ventricle is midline. The cerebellopontine angle i s unremarkable. EXTRACRANIAL: The visualized portion of the orbits is intact. SKULL: The calvaria is intact. No evidence of skull fracture. CONCLUSION: 1. Small area of encephalomalacia in the left basal ganglia corresponding to the area of hemorrhage s een on the previous exam. No new areas of hemorrhage are seen. No significant mass effect is identifi ed. Ant Reece MD on October 27, 2017 at 11:00 Board Certified Radiologist. This report was verified electronically.
--- NOTE | 2017-10-27 15:54 | HHI.PR ---
Subjective Remarks ALERT NO DISTRESS TRACH OK Objective GENERAL: SKIN: Warm and dry. HEAD: Atraumatic. Normocephalic. EYES: Pupils equal and round. No scleral icterus. No injection or drainage. ENT: No nasal bleeding or discharge. Mucous membranes pink and moist. NECK: Trachea midline. No JVD. CARDIOVASCULAR: Regular rate and rhythm. RESPIRATORY: No accessory muscle use. Clear to auscultation. Breath sounds equal bilaterally. GASTROINTESTINAL: Abdomen soft, non-tender, nondistended. Hepatic and splenic margins not palpable. MUSCULOSKELETAL: Extremities without clubbing, cyanosis, or edema. No obvious deformities. NEUROLOGICAL: Awake and alert. No obvious cranial nerve deficits. Motor grossly within normal limits. Five out of 5 muscle strength in the arms and legs. Normal speech. PSYCHIATRIC: Appropriate mood and affect; insight and judgment normal. Vital Signs Date Time Temp Pulse Resp B/P (MAP) Pulse Ox O2 Delivery O2 Flow Rate FiO2 10/27/17 12:00 98.3 77 20 149/89 (109) 98 10/27/17 11:35 Room Air 10/27/17 08:52 99 21 10/27/17 08:52 21 10/27/17 08:00 Room Air 10/27/17 08:00 98.4 72 20 111/64 (80) 96 10/27/17 04:00 98.2 73 21 157/75 (102) 99 10/27/17 03:59 72 10/27/17 00:09 81 10/27/17 00:00 98.6 80 20 154/83 (106) 95 10/26/17 21:13 94 10/26/17 20:33 84 10/26/17 20:00 98.6 86 21 154/78 (103) 96 10/26/17 19:00 Room Air 10/26/17 16:00 98.1 89 20 138/70 (92) 94 10/26/17 16:00 87 I/O 10/26/17 10/26/17 10/26/17 10/27/17 10/27/17 10/27/17 07:00 15:00 23:00 07:00 15:00 23:00 Intake Total 0 ml 180 ml Output Total 1000 ml 1850 ml 850 ml Balance -1000 ml -1850 ml -670 ml Intake Oral 0 ml 180 ml Output Urine Total 1000 ml 1850 ml 850 ml # Bowel Movements 0 0 Result Diagram: 10/24/17 0703 10/27/17 0827 Objective Remarks GENERAL: SKIN: Warm and dry. HEAD: Atraumatic. Normocephalic. EYES: Pupils equal and round. No scleral icterus. No injection or drainage. ENT: No nasal bleeding or discharge. Mucous membranes pink and moist. NECK: Trachea midline. No JVD. CARDIOVASCULAR: Regular rate and rhythm. RESPIRATORY: No accessory muscle use. Clear to auscultation. Breath sounds equal bilaterally. GASTROINTESTINAL: Abdomen soft, non-tender, nondistended. Hepatic and splenic margins not palpable. MUSCULOSKELETAL: Extremities without clubbing, cyanosis, or edema. No obvious deformities. NEUROLOGICAL: Awake and alert. No obvious cranial nerve deficits. Motor grossly within normal limits. Five out of 5 muscle strength in the arms and legs. Normal speech. PSYCHIATRIC: Appropriate mood and affect; insight and judgment normal. Assessment and Plan Assessment and Plan RESPIRATORY FAILURE S/P TRACH S/P CVA OBESITY HTN PLAN O2 NEEDED PULM TOILET INCREASE ACTIVITY TRACH CHANGED BY MYSELF AT BEDSIDE TO FENESTRATED CUFFLESS #6 Wang Piña MD Oct 27, 2017 15:54
--- NOTE | 2017-10-27 16:11 | HHI.HCPN ---
Reason for visit a. To assist with evaluation and management of symptoms including: Pain and dyspnea. b. To assist medical decision maker(s) with: better understanding of current medical conditions; weighing benefits/burdens of medical treatment options; making medical treatment decisions. . Subjective/Interval History Palliative care follow-up for further clarifications of goals of care, family support. Patient seen in his room, resting in bed in no acute distress. Passey Chester valve in place, patient unable to talk in short sentences. Alert and oriented x self, place and situation. Following commands. Currently tolerating room air since yesterday. Patient denies pain, shortness of breath or abdominal discomfort. Endorsing persistent numbness to bilateral lower extremities. Right-sided weakness, able to move fingers and right hand, more limited movement to right lower extremity. Moving left upper and lower extremities to command. Speech therapy following, patient was started on pur ed diet with thin liquids. Has continued to participate in PT/OT therapy. Patient remains afebrile, stable hemodynamically. CT of the head 10/27/17 revealing small area of encephalomalacia in the left basal ganglia corresponded to areas of hemorrhage seen on previous studies. No new areas of hemorrhage noted. No family at bedside. Patient appears to have good understanding of his clinical condition, able to per to dissipating medical decision-making. He tells me that he is eager to discharge to acute rehabilitation for physical strengthening. Goals of therapy remain aggressive. . Family/friend interactions No family at bedside. . Advance Directives Living Will: Never completed Health Care Surrogate: Never completed Durable Power of Coffee Grower: Never completed Advance Directive Specifics Health Care Surrogate(s): No advance directives completed as per patient's family. Patient is . As per [place] law, healthcare proxy decision making falls to the majority of patient's adult children for which he has 3 (4th child is 4 years old). Daughter Shannan, daughter Nichole and son Hadley Maddox wish to participate. . Significant change in goals: Goals of therapy remain aggressive. . Objective Vital Signs Date Time Temp Pulse Resp B/P (MAP) Pulse Ox O2 Delivery O2 Flow Rate FiO2 10/27/17 12:00 98.3 77 20 149/89 (109) 98 10/27/17 11:35 Room Air 10/27/17 08:52 99 21 10/27/17 08:52 21 10/27/17 08:00 Room Air 10/27/17 08:00 98.4 72 20 111/64 (80) 96 10/27/17 04:00 98.2 73 21 157/75 (102) 99 10/27/17 03:59 72 10/27/17 00:09 81 10/27/17 00:00 98.6 80 20 154/83 (106) 95 10/26/17 21:13 94 10/26/17 20:33 84 10/26/17 20:00 98.6 86 21 154/78 (103) 96 10/26/17 19:00 Room Air 10/26/17 16:00 98.1 89 20 138/70 (92) 94 10/26/17 16:00 87 Intake & Output 10/27/17 10/27/17 07:00 19:00 Intake Total 180 ml Output Total 850 ml Balance -670 ml Intake Oral 180 ml Output Urine Total 850 ml # Bowel Movements 0 Physical Exam CONSTITUTIONAL/GENERAL: This is a male patient resting in bed in no acute distress. TUBES/LINES/DRAINS: PEG tube, tracheostomy with Passey Chester valve, SCDs, PIV's. SKIN: No jaundice, rashes, or lesions. No wounds seen anteriorly. Skin temperature appropriate. Not diaphoretic. HEAD: Atraumatic. Normocephalic. EYES: No scleral icterus. ENT: Hearing appears normal. Nose without bleeding or purulent drainage. Moist oral mucosa. NECK: Trachea midline. Supple. Tracheostomy with Passey Chester valve in place. CARDIOVASCULAR: Regular rate and rhythm without murmurs, gallops, or rubs. Peripheral pulses symmetric. RESPIRATORY/CHEST: Symmetric, Scattered rhonchi. Trach, tolerating room air. GASTROINTESTINAL: Abdomen obese, large, round. Unable to appreciate hepatomegaly secondary to body habitus. Bowel sounds active. PEG tube in place. GENITOURINARY: Without palpable bladder distension. MUSCULOSKELETAL: Extremities without clubbing, cyanosis. No mottling or clubbing. NEUROLOGICAL: Alert and oriented x self, place and situation. Following commands with left upper and lower extremity. Persistent right-sided weakness. PSYCHIATRIC: Appears calm. . Diagnostic Tests Laboratory Laboratory Tests Test 10/27/17 08:27 Random Glucose 89 MG/DL (74-106) Result Diagram: 10/24/17 0703 10/27/17 0827 Microbiology Microbiology Date/Time Source Procedure Growth Status 09/27/17 08:20 Blood Peripheral Aerobic Blood Culture - Final NO GROWTH IN 5 DAYS Complete 09/27/17 08:20 Blood Peripheral Anaerobic Blood Culture - Final NO GROWTH IN 5 DAYS Complete 09/28/17 13:45 Stool Stool Stool Occult Blood (ALEXIS) - Final HEMOCCULT NEGATIVE Complete 09/12/17 06:00 Respiratory MRSA Surveillance Culture - Final NO MRSA ISOLATED Complete 09/27/17 09:45 Urine Catheterized Urine Urine Culture - Final Pseudomonas Aeruginosa Complete Procedures * 08/28/17 -endotracheal intubation * 08/31/17 -therapeutic bronchoscopy * 09/06/17 -PEG tube placement * 09/08/17 -tracheostomy . Assessment and Plan Disease Oriented Problem List: (1) Hemorrhagic stroke (2) Intracranial hemorrhage (3) Hypertensive emergency (4) Acute kidney injury (5) Acute encephalopathy (6) Physical deconditioning Symptom Scale: (1) Dyspnea 0-10 Scale: Unable to quantify Comment: Secondary to acute respiratory failure. Status post tracheostomy. (2) Pain 0-10 Scale: Unable to quantify Comment: Oxycodone [id number]. Pertinent Non-Medical Issues Psychosocial: Patient originally from [facility]. He is the youngest of 4 siblings. High school education. Worked in his [employer]. 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 Patient is , has 4 children. No service. Spiritual: Sabianism lenny. Legal: No advance directives completed as per patient's family. Ethical issues impacting care: Patient unable to participate in medical decision -making secondary to clinical condition. 3 adult children serving as healthcare proxy decision makers. . Important Contacts Daughter Shannan Matos , Daughter Nichole Matos Son Hadley Matos Ex- (mother of his children) Janet Matos . Patient's father Jem Matos . . Prognosis Mr. Matos is a 46-year-old male with a medical history significant for TIA, uncontrolled hypertension and migraines. Patient presented to ED via EMS on as stroke alert. Patient was last seen with normal neurological function approximately 3-1/2 hours prior to ED arrival. Upon ED arrival, GCS of 7, blood pressure 238/153. He subsequently had a vomiting episode requiring emergent intubation and mechanical ventilation. Head CT revealing acute hemorrhaic stroke in the right thalamus with extension of the lateral third ventricles with a shift onto the right side of 6 mm. chest x-ray revealing left lower lobe consolidation and patchy infiltrates in the central right lung. Clinical course complicated by acute encephalopathy, acute hypoxemic and hypercarbic respiratory failure and acute kidney injury. Patient remains a high risk for further complications, continue decline and . Prognosis for a meaningful recovery guarded at this time. . Code Status: Full Code Plan * CODE STATUS: FULL CODE * HEALTHCARE DECISION-MAKING: Patient participating in medical decision-making. Status post tracheostomy with Passey Chester valve, verbal and communicating. Appears to have a good understanding of his clinical condition, has regained the ability to weigh benefits versus burdens of treatment options. No advance directives completed. Patient is . As per [place] law, healthcare proxy decision making falls to the majority of patient's adult children for which he has 3 (4th child is 4 years old). Daughters Shannan and Nichole and son Hadley Maddox. * GOALS OF CARE: Patient electing to continue full aggressive management to include FULL code with the goal to discharge to acute rehabilitation for physical strengthening. As per CM notes, patient has been accepted to [facility], pending medical clearance. * SYMPTOMS: = Dyspnea, secondary to acute respiratory failure. Patient s/p trach on 09/08/17. Currently tolerating room air, Passey Balta valve in place. Pulmonology following. = Pain: Secondary prolonged hospitalization, neuropathy. Has been started on gabapentin 100 mg 3 times a day. Currently on oxycodone 5 mg every 6 hours PRN. Sparing PRN need, last dose 10/25/17. Appears calm. = Bowels: MiraLAX, lactulose and Melina-Colace [id number]. Dulcolax suppository available. = Restlessness/agitation: controlled with Seroquel 50mg every 8 hours. = Debility, given acute brain bleed, prolonged hospitalization. Right-sided weakness. Participating in PT/OT. Pending discharge to rehabilitation. * Palliative care will continue to follow-up as needed for further clarifications of goals of care, provide emotional support as patient's clinical course continues to evolve. . Time Spent Total Floor Time (mins): 27 (To include review of medical records, physical exam, goals of care conversation with patient.) >50% Counseling/Coord of Care: Yes Attestation To help prompt me to consider important information that might be impacting today's encounter and assessment, information from prior notes written by myself or my colleagues may have been "brought forward" into today's note. My signature on this note, however, is an attestation that I personally performed the exam, history, and/or decision-making noted today, and, unless otherwise indicated, the interactions with patient, family, and staff as well as the review of records all occurred today. I also attest that the listed assessment and stated plan reflect my best clinical judgment today based on the combination of historical information, prior notes, and today's exam/ interactions. When time spent is documented, it refers only to time spent today by the signer, or if indicated, combined time spent today by collaborating physician/nurse practitioner. Soniya Elliott Oct 27, 2017 16:11
[2017-10-27] MEDS: ATORVASTATIN 40 MG TAB DOBHOFF SCH (20:56)
[2017-10-28] VITALS (10 sets, daily range): BP systolic 129–182; BP diastolic 73–105; PULSE 80–102; RESP 16–20; TEMP 98.7–99.7; O2SAT 96–99
[2017-10-28] MEDS: INSULIN ASPART SUPPLEMENTAL SCALE SQ SCH ×4 (05:16→22:54)
[2017-10-28] MEDS: PROPRANOLOL HCL 40 MG TAB G-TUBE SCH ×3 (05:24→18:53)
[2017-10-28] MEDS: cloNIDine HCL 0.3 MG TAB G-TUBE SCH ×3 (05:24→21:11)
[2017-10-28] MEDS: hydrALAZINE HCL 100 MG TAB G-TUBE SCH ×3 (05:24→21:11)
[2017-10-28] MEDS: QUEtiapine FUMARATE 25 MG TAB G-TUBE SCH ×3 (05:24→21:11)
[2017-10-28] MEDS: FREE WATER G-TUBE SCH ×5 (08:00→19:22)
[2017-10-28] MEDS: DOCUSATE SODIUM 50 MG/SENNA 8.6 MG TAB G-TUBE SCH ×2 (09:00→19:21)
[2017-10-28] MEDS: CHLORHEXIDINE GLUCONATE 0.12% 15 ML CUP SWISH-SPIT SCH ×3 (09:00→18:00)
[2017-10-28] MEDS: POLYETHYLENE GLYCOL 17 GM PKG G-TUBE SCH ×2 (09:00→19:21)
[2017-10-28] MEDS: FLUTICASONE PROPIONATE 50 MCG/ACT 16 GM NASAL SPRAY EACH NARE SCH (09:00)
[2017-10-28] MEDS: GABAPENTIN 100 MG CAP PO SCH ×3 (10:32→18:53)
[2017-10-28] MEDS: FAMOTIDINE 20 MG TAB NG SCH ×2 (10:32→21:00)
[2017-10-28] MEDS: INSULIN DETEMIR 100 UNITS/ML VIAL SQ SCH ×2 (10:33→22:53)
--- NOTE | 2017-10-28 13:19 | HHI.PR ---
Subjective Remarks in no acute distress. denies pain. no new complaints. Objective Vitals Vital Signs Date Time Temp Pulse Resp B/P (MAP) Pulse Ox O2 Delivery O2 Flow Rate FiO2 10/28/17 08:00 98.9 80 16 165/96 (119) 96 10/28/17 08:00 89 10/28/17 04:00 98.7 83 18 152/84 (106) 99 10/28/17 04:00 Humidified 6.00 10/28/17 04:00 81 10/28/17 01:41 98 Trach Collar 6.00 28 10/28/17 00:00 87 10/28/17 00:00 99.7 90 20 129/76 (93) 98 10/27/17 23:40 Room Air 10/27/17 22:00 99.7 83 21 142/81 (101) 94 10/27/17 20:02 80 10/27/17 20:00 Room Air Trach Collar T-Piece 10/27/17 17:50 98 21 10/27/17 16:00 98.3 81 20 123/73 (90) 91 10/27/17 16:00 70 I/O 10/27/17 10/27/17 10/27/17 10/28/17 10/28/17 10/28/17 07:00 15:00 23:00 07:00 15:00 23:00 Intake Total 180 ml 120 ml 120 ml Output Total 850 ml 775 ml 1000 ml Balance -670 ml -655 ml -880 ml Intake Oral 180 ml 120 ml 120 ml Output Urine Total 850 ml 775 ml 1000 ml # Bowel Movements 0 0 0 Result Diagram: 10/24/17 0703 10/27/17 0827 Imaging Last Impressions Head CT 10/27/17 1001 Signed Impressions: Service Date/Time: Friday, October 27, 2017 10:55 - CONCLUSION: 1. Small area of encephalomalacia in the left basal ganglia corresponding to the area of hemorrhage seen on the previous exam. No new areas of hemorrhage are seen. No significant mass effect is identified. Ant Reece MD Chest X-Ray 10/24/17 0600 Signed Impressions: Service Date/Time: Tuesday, October 24, 2017 04:21 - CONCLUSION: No significant interval change. Iain Fragoso MD Maxillofacial CT 09/16/17 0000 Signed Impressions: Service Date/Time: September 01:03 - CONCLUSION: 1. Evidence of acute pansinusitis. 2. Opacification of multiple bilateral mastoid air cells most characteristic of mastoiditis. 3. Mildly prominent cervical chain nodes which may be reactive. Angelo Conn MD Upper Extremity Ultrasound 09/15/17 0000 Signed Impressions: Service Date/Time: Friday, September 15, 2017 17:14 - CONCLUSION: Occlusive thrombus within the left cephalic vein and nonocclusive thrombus within the right cephalic vein. Ric Jack MD Lower Extremity Ultrasound 09/15/17 0000 Signed Impressions: Service Date/Time: Friday, September 15, 2017 16:58 - CONCLUSION: No evidence of DVT within the lower extremities. Ric Jack MD Chest CT 09/13/17 0000 Signed Impressions: Service Date/Time: Wednesday, September 13, 2017 09:28 - CONCLUSION: 1. Bibasilar and left lingular dependent atelectatic changes. Lungs are otherwise clear. 2. Tracheostomy tube with the tip probably positioned above the connie. 3. Compensated cardiomegaly. Reyes Guzman MD Abdomen/Pelvis CT 09/13/17 0000 Signed Impressions: Service Date/Time: Wednesday, September 13, 2017 09:28 - CONCLUSION: 1. There is some stranding in the retroperitoneal perivascular tissues around the distal aorta extending into the bifurcation with a regional borderline lymph nodes. Findings are characteristic of a nonspecific inflammatory process. Findings could represent early retroperitoneal fibrosis.. 2. Urinary bladder is decompressed with some mural thickening in pericystic inflammatory changes possibly representing a chronic cystitis. Nondependent air could be associated with a recent catheterization/instrumentation. 3. Small umbilical and right inguinal hernias only contain fat. 4. Bilateral dependent basilar and left lingular atelectatic changes. Heart size is borderline prominent. 5. Otherwise , bowel is intact without obstruction to explain abdominal distention Reyes Guzman MD Abdomen X-Ray 09/10/17 0600 Signed Impressions: Service Date/Time: Sunday, September 10, 2017 03:56 - CONCLUSION: No significant abnormality is identified. There is mild distention of the colon but there are no findings to suggest bowel obstruction or significant ileus. Ignacio Underwood MD Liver Ultrasound 09/07/17 0000 Signed Impressions: Service Date/Time: Thursday, September 07, 2017 12:37 - CONCLUSION: 1. Unremarkable sonographic appearance of the liver. No evidence for hepatic volume loss or intrahepatic ductal dilatation. 2. No sonographic evidence for cholelithiasis or acute cholecystitis. 3. Mild increased right renal echogenicity may reflect medical renal disease. 4. Small bilateral pleural effusions. 5. Pancreas and inferior pole of the right kidney are obscured by bowel gas and therefore not evaluated. Darrell Robles MD Renal Ultrasound 08/31/17 0000 Signed Impressions: Service Date/Time: Thursday, August 31, 2017 17:42 - CONCLUSION: 1. No evidence of hydronephrosis on either side. 2. Solitary linear echogenic focus in the upper pole parenchyma of the right kidney has similar features to prior examination in January 2017 and possibly represents a calcification. David Snell MD Neck CTA 08/28/17 2347 Signed Impressions: Service Date/Time: Tuesday, August 29, 2017 00:13 - CONCLUSION: Negative carotid CTA. David Snell MD Head CTA 08/28/17 2347 Signed Impressions: Service Date/Time: Tuesday, August 29, 2017 00:13 - CONCLUSION: 1. No evidence of vessel truncation or aneurysm. 2. No abnormal vessels in the region of the large left thalamic hemorrhage. David Snell MD Objective Remarks GENERAL: in no apparent distress. Neck; trach in place. CARDIOVASCULAR: Regular rate and irregular rhythm without murmurs, gallops, or rubs. RESPIRATORY: Clear to auscultation. Breath sounds equal bilaterally. No wheezes , rales, or rhonchi. GASTROINTESTINAL: Abdomen soft, non-tender, nondistended. Normal, active bowel sounds-PEG in place. MUSCULOSKELETAL: Extremities without clubbing, cyanosis, or edema. NEURO: awake. Procedures Tracheostomy and PEG placement Medications and IVs Inpatient Medications Acetaminophen (Tylenol) 650 mg Q6H PRN G-TUBE PAIN 1-5 AND/OR FEVER >101F Last administered on 10/15/17at 23:34; Start 09/25/17 at 12:45 Albuterol Sulfate (Albuterol Neb) 2.5 mg Q2HR NEB PRN NEB sob/wheeze Last administered on 10/11/17 17:07; Start 09/25/17 at 13:30 Albuterol/ Ipratropium (Duoneb Neb) 1 ampule Q6HR NEB NEB Last administered on 10/27/17at 10:00; Start 10/23/17 at 16:00; Stop 10/27/17 at 13:18; Status DC Amlodipine Besylate (Norvasc) 10 mg DAILY G-TUBE Last administered on at 10:32; Start 09/26/17 at 09:00 Atorvastatin Calcium (Lipitor) 40 mg HS DOBHOFF Last administered on 10/27/17 20:56; Start 09/25/17 at 21:00 Bisacodyl (Dulcolax Supp) 10 mg DAILY RECTAL Last administered on 08/31/17 11 :58; Start 08/31/17 at 12:00; Stop 09/25/17 at 09:30; Status DC Calcium Acetate (Phoslo) 667 mg TID PO Last administered on 09/08/17 10:38; Start 08/31/17 at 18:00; Stop 09/08/17 at 11:02; Status DC Cefuroxime Axetil (Ceftin) 500 mg Q12HR PO Last administered on 10/03/17 09: 03; Start 09/26/17 at 11:15; Stop 10/03/17 at 11:14; Status DC Chlorhexidine Gluconate (Chlorhexidine 2% Cloth) 3 pack DRY CHAIN PULLER PRN TOPICAL SEE LABEL COMMENTS; Start 09/05/17 at 23:00; Stop 09/08/17 at 22:59; Status DC Chlorhexidine Gluconate (Peridex 0.12% Liq) 15 ml TID SWISH-SPIT Last administered on 10/27/17at 09:39; Start 10/11/17 at 18:00 Clonidine (Catapres) 0.3 mg Q8HR G-TUBE Last administered on 10/28/17 05:24; Start 09/25/17 at 14:00 Dantrolene Sodium (Dantrium Inj) 70 mg ONCE ONCE IV Last administered on 03:55; Start 09/13/17 at 03:00; Stop 09/13/17 at 03:01; Status DC Desmopressin Acetate (Ddavp Tae Spr) 1 spray ONCE ONCE EACH NARE Last administered on 09/07/17 15:00; Start 09/07/17 at 15:00; Stop 09/07/17 at 15 :01; Status DC Dexamethasone Sodium Phosphate (Decadron Inj) 6 mg Q12HR IV PUSH Last administered on 09/20/17 09:26; Start 09/17/17 at 21:00; Stop 09/20/17 at 20: 59; Status DC Dexmedetomidine HCl 50 ml @ 29.9 mls/hr TITRATE IV ; Start 08/30/17 at 14:15; Stop 08/30/17 at 14:46; Status DC Dexmedetomidine HCl 1000 mcg/ Sodium Chloride 250 ml @ 29.9 mls/hr TITRATE IV Last administered on 08/30/17 17:58; Start 08/30/17 at 16:45; Stop 08/31/17 at 06:14; Status DC Dexmedetomidine HCl 200 mcg/ Sodium Chloride 50 ml @ 29.9 mls/hr TITRATE IV Last administered on 08/30/17 15:27; Start 08/30/17 at 15:00; Stop 08/30/17 at 16:42; Status DC Dextrose 1,000 ml @ 42 mls/hr [id number] IV Last administered on 09/20/17 09:25 ; Start 09/19/17 at 08:45; Stop 09/20/17 at 11:39; Status DC Dextrose (D50w (Vial) Inj) 25 ml UNSCH PRN IV PUSH HYPOGLYCEMIA-SEE COMMENTS; Start 09/18/17 at 12:00 Diphenhydramine HCl (Benadryl Inj) 25 mg Q6H IV PUSH Last administered on 08:06; Start 09/15/17 at 15:00; Stop 09/18/17 at 14:59; Status DC Etomidate (Amidate Inj) 20 mg ONCE ONCE IVP ; Start 08/29/17 at 00:00; Stop 08/29/17 at 00:01; Status DC Famotidine (Pepcid) 20 mg BID NG Last administered on 10/28/17at 10:32; Start 09/24/17 at 09:30 Fentanyl Citrate 250 ml @ 5 mls/hr TITRATE PRN IV SEDATION Last administered on 09/11/17 06:14; Start 08/29/17 at 00:45; Stop 09/11/17 at 10:20; Status DC Fluticasone Propionate (Flonase Tae Spr) 2 spray DAILY EACH NARE Last administered on 10/27/17 09:41; Start 09/05/17 at 17:00 Gabapentin (Neurontin) 100 mg TID PO Last administered on 10/28/17 10:32; Start 10/26/17 at 13:00 Gelatin (Gelfoam 12 Mm/7 Mm Top) 1 foam Q2HR PRN TOPICAL if still bleeding from peg Last administered on 09/08/17 08:00; Start 09/07/17 at 19:45 Glucagon (Glucagon Inj) 1 mg UNSCH PRN OTHER HYPOGLYCEMIA-SEE COMMENTS; Start 09/25/17 at 09:30 Haloperidol Lactate (Haldol Inj) 5 mg Q4H PRN IV agitation Last administered on 09/12/17 23:04; Start 08/31/17 at 11:00; Stop 09/25/17 at 09:30; Status DC Heparin Sodium (Porcine) (Heparin Inj) 5,000 units Q12HR SQ Last administered on 09/28/17 08:20; Start 09/11/17 at 21:00; Status Future Hold Hydralazine HCl (Apresoline Inj) 10 mg Q30M PRN IV PUSH sbp > 160 Last administered on 09/19/17 09:08; Start 08/30/17 at 08:15 Hydralazine HCl (Apresoline) 100 mg Q8HR G-TUBE Last administered on 10/28/17 05:24; Start 09/25/17 at 14:00 Hydrochlorothiazide (Hydrodiuril) 25 mg DAILY PO Last administered on 10:37; Start 08/29/17 at 09:00; Stop 09/08/17 at 11:02; Status DC Insulin Aspart (NovoLOG SUPPLEMENTAL SCALE) 1 Q6H SQ Last administered on 17:50; Start 09/25/17 at 12:00 Insulin Detemir (Levemir Inj) 20 units Q12H SQ Last administered on 10/28/17 10:33; Start 09/19/17 at 10:00 Insulin Human Regular (NovoLIN R SUPPLEMENTAL SCALE) 1 Q4HR SQ Last administered on 09/25/17 04:09; Start 09/18/17 at 12:00; Stop 09/25/17 at 09: 28; Status DC Insulin Human Regular (NovoLIN R INJ) See Protocol Table ... DRY CHAIN PULLER PRN SQ SEE PROTOCOL TABLE; Start 09/05/17 at 23:00; Stop 09/08/17 at 22:59; Status DC Labetalol HCl (Trandate Inj) 10 mg Q20M PRN IV PUSH SBP>140, DBP>90 Last administered on 09/19/17 02:16; Start 08/29/17 at 00:45 Labetalol HCl (Trandate) 300 mg NOW ONCE PEG Last administered on 09/17/17 04 :23; Start 09/17/17 at 04:15; Stop 09/17/17 at 04:16; Status DC Lactated Ringer's 1,000 ml @ 30 mls/hr Q24H PRN IV SEE LABEL COMMENTS; Start 09/05/17 at 23:00; Stop 09/08/17 at 22:59; Status DC Lactulose (Lactulose Liq) 30 ml BID PO Last administered on 09/04/17 19:57; Start 08/31/17 at 12:00; Stop 09/25/17 at 09:30; Status DC Lidocaine HCl (Lidocaine Pf 2% Neb) 1 ml Q6HR NEB PRN NEB cough/bronchial irritation; Start 09/16/17 at 11:30 Lisinopril (Prinivil) 40 mg DAILY PO Last administered on 09/04/17 09:07; Start 08/29/17 at 09:00; Stop 09/04/17 at 12:18; Status DC Lorazepam (Ativan Inj) 1 mg ONCE ONCE IV PUSH Last administered on 09/13/17 02:57; Start 09/13/17 at 02:45; Stop 09/13/17 at 02:46; Status DC Lorazepam (Ativan) 1 mg Q12H PO Last administered on 09/09/17 20:27; Start 09/07/17 at 19:00; Stop 09/11/17 at 10:25; Status DC Magnesium Hydroxide (Milk Of Magnesia Liq) 30 ml Q12H PRN PO Mild constipation ; Start 08/29/17 at 00:45; Stop 08/31/17 at 11:08; Status DC Magnesium Citrate (Citroma Liq) 300 ml ONCE ONCE PO Last administered on 08/31 11:57; Start 08/31/17 at 12:00; Stop 08/31/17 at 12:01; Status DC Magnesium Oxide (Mag-Ox) 800 mg UNSCH PRN PO For Magnesium 1.2 - 1.6 mg/dL; Start 08/30/17 at 08:15; Stop 08/31/17 at 13:02; Status DC Magnesium Sulfate 2 gm/Sodium Chloride 100 ml @ 50 mls/hr UNSCH PRN IV For Magnesium 1.2 - 1.6 mg/dL; Start 08/30/17 at 08:15; Stop 08/31/17 at 13:02; Status DC Magnesium Sulfate 4 gm/Sodium Chloride 100 ml @ 50 mls/hr UNSCH PRN IV For Magnesium 0.9 - 1.1 mg/dL; Start 08/30/17 at 08:15; Stop 08/31/17 at 13:02; Status DC Magnesium Sulfate/ Dextrose 100 ml @ 100 mls/hr Q1H IV Last administered on 12:22; Start 08/31/17 at 12:00; Stop 08/31/17 at 13:00; Status DC Methylprednisolone Sodium Succinate (SoluMEDROL INJ) 125 mg ONCE ONCE IV PUSH Last administered on 10/20/17at 13:09; Start 10/20/17 at 12:15; Stop 10/20/17 at 12:16; Status DC Metoclopramide HCl (Reglan Inj) 5 mg Q8HR IV PUSH Last administered on 22:55; Start 09/09/17 at 22:00; Stop 09/11/17 at 10:25; Status DC Metoprolol Tartrate (Lopressor) 25 mg Q8H G-TUBE ; Start 09/25/17 at 13:00; Stop 09/25/17 at 13:00; Status DC Midazolam HCl (Versed Inj) 10 mg ONCE ONCE IV PUSH ; Start 09/08/17 at 13:00; Stop 09/08/17 at 13:41; Status DC Miscellaneous Information 1 [id number] Last administered on 08/29/17 01:00; Start 08/29/17 at 00:45; Stop 10/24/17 at 04:26; Status DC Modafinil (Provigil) 200 mg DAILY PO Last administered on 09/12/17 09:07; Start 09/11/17 at 12:00; Stop 09/25/17 at 09:30; Status DC Morphine Sulfate (Morphine Inj) 2 mg Q2H PRN IV PUSH breakthru pain Last administered on 10/24/17 20:42; Start 09/24/17 at 16:30 Nicardipine HCl 25 mg/Sodium Chloride 250 ml @ 50 mls/hr TITRATE PRN IV Blood pressure management Last administered on 09/17/17 04:57; Start 09/13/17 at 02: 45; Stop 09/17/17 at 12:47; Status DC Nicardipine HCl 50 mg/Sodium Chloride 500 ml @ 50 mls/hr TITRATE PRN IV BLOOD PRESSURE MANAGEMENT Last administered on 09/05/17 22:00; Start 09/02/17 at 21 :15; Stop 09/11/17 at 10:25; Status DC Ondansetron HCl (Zofran Inj) 4 mg Q6H PRN IV PUSH NAUSEA OR VOMITING Last administered on 09/11/17 14:18; Start 08/29/17 at 00:45 Oxycodone HCl (Roxicodone Intensol Liq) 5 mg Q6H PRN G-TUBE pain 6-10 Last administered on 10/25/17 13:36; Start 09/25/17 at 15:00 Pantoprazole Sodium (Protonix Inj) 40 mg DAILY IV PUSH Last administered on 09:15; Start 08/29/17 at 09:00; Stop 09/11/17 at 10:25; Status DC Pharmacy Profile Note 0 ml @ 0 mls/hr UNSCH OTHER ; Start 09/13/17 at 02:45; Stop 09/17/17 at 10:11; Status DC Piperacillin Sod/ Tazobactam Sod 50 ml @ 100 mls/hr Q6H IV Last administered on 09/19/17 20:26; Start 09/13/17 at 03:00; Stop 09/19/17 at 23:00; Status DC Polyethylene Glycol (Miralax) 17 gm BID G-TUBE Last administered on 1/17/18at 09:41; Start 09/25/17 at 21:00 Potassium Chloride 30 meq/ Sodium Chloride 115 ml @ 38.333 mls/ hr ONCE ONCE IV-CENTRAL Last administered on 09/03/17 13:36; Start 09/03/17 at 14:00; Stop 09/03/17 at 16:59; Status DC Potassium Phosphate (K-Phos) 2,000 mg UNSCH PRN PO/TUBE SEE LABEL COMMENTS; Start 08/30/17 at 08:15; Stop 08/31/17 at 13:02; Status DC Potassium Phosphate 30 mmol/ Sodium Chloride 260 ml @ 42 mls/hr UNSCH PRN IV SEE LABEL COMMENTS; Start 08/30/17 at 08:15; Stop 08/31/17 at 13:02; Status DC Potassium Bicarb/ Potassium Chloride (K-Lyte Cl Eff) 50 meq ONCE ONCE PO Last administered on 09/25/17 05:25; Start 09/25/17 at 04:30; Stop 09/25/17 at 04:31; Status DC Potassium Chloride 100 ml @ 50 mls/hr Q2H IV Last administered on 09/15/17 10 :22; Start 09/15/17 at 08:15; Stop 09/15/17 at 12:14; Status DC Potassium Chloride (KCl Powder) 40 meq ONCE ONCE PEG Last administered on 12:15; Start 09/08/17 at 12:15; Stop 09/08/17 at 12:21; Status DC Potassium Chloride (KCl) 40 meq ONCE ONCE PO ; Start 09/08/17 at 09:00; Stop 09/08/17 at 12:05; Status DC Povidone Iodine (Betadine 5% Antisepsis Kit) 1 applic DRY CHAIN PULLER PRN EACH NARE SEE LABEL COMMENTS; Start 09/05/17 at 23:00; Stop 09/08/17 at 22:59; Status DC Propofol 100 ml @ 14.352 mls/ hr TITRATE PRN IV SEDATION Last administered on 09/10/17 09:59; Start 08/31/17 at 00:30; Stop 09/11/17 at 10:20; Status DC Propranolol HCl (Inderal) 40 mg Q6HR G-TUBE Last administered on 10/28/17at 05: 24; Start 09/25/17 at 12:00 Quetiapine Fumarate (SEROquel) 50 mg Q8HR G-TUBE Last administered on 05:24; Start 09/25/17 at 14:00 Rocuronium [place] (Zemuron Inj) 100 mg BOLUS ONCE IV ; Start 09/08/17 at 13: 00; Stop 09/08/17 at 13:44; Status DC Senna/Docusate Sodium (Melina-Colace) 1 tab BID G-TUBE Last administered on at 09:39; Start 09/25/17 at 21:00 Sennosides (Senokot) 17.2 mg Q12H PRN PO Moderate constipation; Start at 00:45; Stop 08/31/17 at 11:08; Status DC Silver Nitrate/ Potassium Nitrate (Silver Nitrate Applicators) 1 appl ONCE ONCE TOPICAL Last administered on 09/07/17 10:15; Start 09/07/17 at 10:15; Stop 09/07/17 at 10:47; Status DC Sodium Polystyrene Sulfonate (Kayexalate Liq) 30 gm Q2HR PO Last administered on 09/21/17 19:53; Start 09/21/17 at 16:00; Stop 09/21/17 at 21:00; Status DC Sodium Chloride 250 ml @ 15 mls/hr ONCE ONCE IV ; Start 09/28/17 at 10:15; Stop 09/28/17 at 16:53; Status DC Sodium Chloride (NS Flush) 2 ml UNSCH PRN IVF FLUSH AFTER USING IV ACCESS Last administered on 10/24/17at 20:44; Start 08/29/17 at 00:00 Sodium Chloride 38.5 meq/Sterile Water 1,009.625 ml @ 42 mls/hr Q24H IV Last administered on 09/25/17 06:01; Start 09/20/17 at 13:00; Stop 09/25/17 at 09 :24; Status DC Sodium Phosphate 30 mmol/Sodium Chloride 250 ml @ 42 mls/hr UNSCH PRN IV For Phosphorus < 2.5 mg/dL; Start 08/30/17 at 08:15; Stop 08/31/17 at 13:02; Status DC Succinylcholine Chloride (Quelicin Inj) 100 mg ONCE ONCE IV PUSH ; Start 08/29 at 00:00; Stop 08/29/17 at 00:01; Status DC Vancomycin HCl 1500 mg/Sodium Chloride 515 ml @ 257.5 mls/ hr ONCE ONCE IV Last administered on 09/16/17 17:07; Start 09/16/17 at 15:00; Stop 09/16/17 at 16:59; Status DC Vancomycin HCl 2000 mg/Sodium Chloride 520 ml @ 250 mls/hr ONCE ONCE IV Last administered on 09/13/17 05:52; Start 09/13/17 at 04:00; Stop 09/13/17 at 06:04 ; Status DC Vancomycin HCl 2500 mg/Sodium Chloride 525 ml @ 250 mls/hr ONCE ONCE IV Last administered on 09/14/17 12:29; Start 09/14/17 at 12:00; Stop 09/14/17 at 14:05 ; Status DC Water (Free Water) 300 ml Q4HR G-TUBE Last administered on 10/27/17at 04:00; Start 09/18/17 at 12:00 A/P Problem List: (1) Intracranial hemorrhage ICD Code: I62.9 - Nontraumatic intracranial hemorrhage, unspecified Status: Acute Assessment and Plan A/P Acute encephalopathy - improving. Left Thalamic Hemorrhage Intracerebral Hemorrhage - Repeat CT of the head showed improving bleed - Neurosurgery follow-up appreciated; stable for dc to SNF per neurosurgery. - Continue rehabilitation efforts with PT, OT, speech - On Seroquel to control agitated delirium. Roxicodone as needed for pain Anemia likely due to chronic disease. H/H fairly stable. will monitor periodically. Healthcare associated pneumonia finished the course of antibiotic. UTI: treated. Respiratory failure s/p trach - continue neb treatment. -Patient had angioedema, source unclear and was seen by ENT. He was treated with steroids. Per ENT, expect slow improvement. This is resolving. -Appreciate pulmonology following for trach management Respiratory failure s/p trach -pulmonary following. Hyperglycemia - - Continue Levemir 20 units SQ q12h - Continue sliding scale insulin with Accu-Cheks. - hemoglobin A1c 9.1. Hypertension - Intermittent hypertension now well controlled - Continue clonidine, amlodipine and propranolol - Continue hydralazine. Nutrition status: - Status post PEG tube - -on diet per ST. Acute kidney injury, most likely has CKD per nephrology: Renal function stabilized. - monitor renal function periodically. Physical deconditioning/right sided hemiparesis - OOB to stretcher chair daily - PT/OT following AND SPEECH PROPH: - SCD's. Pepcid for GI prophylaxis Discharge Planning dc planning to SNF in progress. Zoë Rivas MD Oct 28, 2017 13:19
[2017-10-28] MEDS: ATORVASTATIN 40 MG TAB DOBHOFF SCH (21:10)
[2017-10-29] VITALS (10 sets, daily range): BP systolic 133–160; BP diastolic 76–88; PULSE 78–86; RESP 18–20; TEMP 97.4–99.3; O2SAT 96–100
[2017-10-29] MEDS: FREE WATER G-TUBE SCH ×6 (00:26→22:40)
[2017-10-29] MEDS: PROPRANOLOL HCL 40 MG TAB G-TUBE SCH ×5 (00:27→23:32)
[2017-10-29] MEDS: hydrALAZINE HCL 100 MG TAB G-TUBE SCH ×3 (05:26→21:46)
[2017-10-29] MEDS: cloNIDine HCL 0.3 MG TAB G-TUBE SCH ×3 (05:26→21:47)
[2017-10-29] MEDS: INSULIN ASPART SUPPLEMENTAL SCALE SQ SCH ×3 (05:26→17:50)
[2017-10-29] MEDS: QUEtiapine FUMARATE 25 MG TAB G-TUBE SCH ×3 (05:26→21:46)
[2017-10-29] MEDS: POLYETHYLENE GLYCOL 17 GM PKG G-TUBE SCH ×2 (09:00→21:00)
[2017-10-29] MEDS: CHLORHEXIDINE GLUCONATE 0.12% 15 ML CUP SWISH-SPIT SCH ×3 (09:00→18:00)
[2017-10-29] MEDS: FLUTICASONE PROPIONATE 50 MCG/ACT 16 GM NASAL SPRAY EACH NARE SCH (09:00)
[2017-10-29] MEDS: DOCUSATE SODIUM 50 MG/SENNA 8.6 MG TAB G-TUBE SCH ×2 (09:00→21:00)
[2017-10-29] MEDS: FAMOTIDINE 20 MG TAB NG SCH ×2 (09:51→21:46)
[2017-10-29] MEDS: INSULIN DETEMIR 100 UNITS/ML VIAL SQ SCH ×2 (09:51→21:47)
[2017-10-29] MEDS: GABAPENTIN 100 MG CAP PO SCH ×3 (09:51→17:49)
--- NOTE | 2017-10-29 13:00 | HHI.PR ---
Subjective Remarks in no acute distress. denies pain. still weak on the right side although improved slightly. Objective Vitals Vital Signs Date Time Temp Pulse Resp B/P (MAP) Pulse Ox O2 Delivery O2 Flow Rate FiO2 10/29/17 12:00 98.1 84 18 152/83 (106) 100 10/29/17 10:14 100 Nasal Cannula 3.00 10/29/17 08:00 78 10/29/17 08:00 98.8 82 18 140/76 (97) 98 10/29/17 04:00 84 10/29/17 04:00 Room Air 10/29/17 00:00 Room Air 10/29/17 00:00 99.3 82 18 133/78 (96) 96 10/28/17 23:43 83 10/28/17 21:34 84 10/28/17 21:00 96 10/28/17 20:00 99.6 84 18 136/73 (94) 96 10/28/17 20:00 Room Air Trach Collar 10/28/17 16:00 99.0 87 16 129/74 (92) 96 10/28/17 16:00 86 I/O 10/28/17 10/28/17 10/28/17 10/29/17 10/29/17 10/29/17 07:00 15:00 23:00 07:00 15:00 23:00 Intake Total 120 ml 600 ml Output Total 1000 ml 1450 ml 300 ml Balance -880 ml -850 ml -300 ml Intake Oral 120 ml 600 ml Output Urine Total 1000 ml 1450 ml 300 ml # Bowel Movements 0 0 Result Diagram: 10/27/17 0827 Imaging Last Impressions Head CT 10/27/17 1001 Signed Impressions: Service Date/Time: Friday, October 27, 2017 10:55 - CONCLUSION: 1. Small area of encephalomalacia in the left basal ganglia corresponding to the area of hemorrhage seen on the previous exam. No new areas of hemorrhage are seen. No significant mass effect is identified. Ant Reece MD Chest X-Ray 10/24/17 0600 Signed Impressions: Service Date/Time: Tuesday, October 24, 2017 04:21 - CONCLUSION: No significant interval change. Iain Fragoso MD Maxillofacial CT 09/16/17 0000 Signed Impressions: Service Date/Time: September 01:03 - CONCLUSION: 1. Evidence of acute pansinusitis. 2. Opacification of multiple bilateral mastoid air cells most characteristic of mastoiditis. 3. Mildly prominent cervical chain nodes which may be reactive. Angelo Conn MD Upper Extremity Ultrasound 09/15/17 0000 Signed Impressions: Service Date/Time: Friday, September 15, 2017 17:14 - CONCLUSION: Occlusive thrombus within the left cephalic vein and nonocclusive thrombus within the right cephalic vein. Ric Jack MD Lower Extremity Ultrasound 09/15/17 0000 Signed Impressions: Service Date/Time: Friday, September 15, 2017 16:58 - CONCLUSION: No evidence of DVT within the lower extremities. Ric Jack MD Chest CT 09/13/17 0000 Signed Impressions: Service Date/Time: Wednesday, September 13, 2017 09:28 - CONCLUSION: 1. Bibasilar and left lingular dependent atelectatic changes. Lungs are otherwise clear. 2. Tracheostomy tube with the tip probably positioned above the connie. 3. Compensated cardiomegaly. Reyes Guzman MD Abdomen/Pelvis CT 09/13/17 0000 Signed Impressions: Service Date/Time: Wednesday, September 13, 2017 09:28 - CONCLUSION: 1. There is some stranding in the retroperitoneal perivascular tissues around the distal aorta extending into the bifurcation with a regional borderline lymph nodes. Findings are characteristic of a nonspecific inflammatory process. Findings could represent early retroperitoneal fibrosis.. 2. Urinary bladder is decompressed with some mural thickening in pericystic inflammatory changes possibly representing a chronic cystitis. Nondependent air could be associated with a recent catheterization/instrumentation. 3. Small umbilical and right inguinal hernias only contain fat. 4. Bilateral dependent basilar and left lingular atelectatic changes. Heart size is borderline prominent. 5. Otherwise , bowel is intact without obstruction to explain abdominal distention Reyse Guzman MD Abdomen X-Ray 09/10/17 0600 Signed Impressions: Service Date/Time: Sunday, September 10, 2017 03:56 - CONCLUSION: No significant abnormality is identified. There is mild distention of the colon but there are no findings to suggest bowel obstruction or significant ileus. Ignacio Underwood MD Liver Ultrasound 09/07/17 0000 Signed Impressions: Service Date/Time: Thursday, September 07, 2017 12:37 - CONCLUSION: 1. Unremarkable sonographic appearance of the liver. No evidence for hepatic volume loss or intrahepatic ductal dilatation. 2. No sonographic evidence for cholelithiasis or acute cholecystitis. 3. Mild increased right renal echogenicity may reflect medical renal disease. 4. Small bilateral pleural effusions. 5. Pancreas and inferior pole of the right kidney are obscured by bowel gas and therefore not evaluated. Darrell Robles MD Renal Ultrasound 08/31/17 0000 Signed Impressions: Service Date/Time: Thursday, August 31, 2017 17:42 - CONCLUSION: 1. No evidence of hydronephrosis on either side. 2. Solitary linear echogenic focus in the upper pole parenchyma of the right kidney has similar features to prior examination in January 2017 and possibly represents a calcification. David Snell MD Neck CTA [id number] Signed Impressions: Service Date/Time: Tuesday, August 29, 2017 00:13 - CONCLUSION: Negative carotid CTA. David Snell MD Head CTA 08/28/177 Signed Impressions: Service Date/Time: Tuesday, August 29, 2017 00:13 - CONCLUSION: 1. No evidence of vessel truncation or aneurysm. 2. No abnormal vessels in the region of the large left thalamic hemorrhage. David Snell MD Objective Remarks GENERAL: in no apparent distress. Neck; trach in place. CARDIOVASCULAR: Regular rate and irregular rhythm without murmurs, gallops, or rubs. RESPIRATORY: Clear to auscultation. Breath sounds equal bilaterally. No wheezes , rales, or rhonchi. GASTROINTESTINAL: Abdomen soft, non-tender, nondistended. Normal, active bowel sounds-PEG in place. MUSCULOSKELETAL: Extremities without clubbing, cyanosis, or edema. NEURO: awake. Procedures Tracheostomy and PEG placement Medications and IVs Inpatient Medications Acetaminophen (Tylenol) 650 mg Q6H PRN G-TUBE PAIN 1-5 AND/OR FEVER >101F Last administered on 10/15/17 23:34; Start 09/25/17 at 12:45 Albuterol Sulfate (Albuterol Neb) 2.5 mg Q2HR NEB PRN NEB sob/wheeze Last administered on 1/1/18at 17:07; Start 09/25/17 at 13:30 Albuterol/ Ipratropium (Duoneb Neb) 1 ampule Q6HR NEB NEB Last administered on 10/27/17 10:00; Start 10/23/17 at 16:00; Stop 10/27/17 at 13:18; Status DC Amlodipine Besylate (Norvasc) 10 mg DAILY G-TUBE Last administered on 09:51; Start 09/26/17 at 09:00 Atorvastatin Calcium (Lipitor) 40 mg HS DOBHOFF Last administered on 10/28/17 21:10; Start 09/25/17 at 21:00 Bisacodyl (Dulcolax Supp) 10 mg DAILY RECTAL Last administered on 08/31/17 11 :58; Start 08/31/17 at 12:00; Stop 09/25/17 at 09:30; Status DC Calcium Acetate (Phoslo) 667 mg TID PO Last administered on 09/08/17 10:38; Start 08/31/17 at 18:00; Stop 09/08/17 at 11:02; Status DC Cefuroxime Axetil (Ceftin) 500 mg Q12HR PO Last administered on 10/03/17 09: 03; Start 09/26/17 at 11:15; Stop 10/03/17 at 11:14; Status DC Chlorhexidine Gluconate (Chlorhexidine 2% Cloth) 3 pack LAMP TESTER [employer]PECTOR PRN TOPICAL SEE LABEL COMMENTS; Start 09/05/17 at 23:00; Stop 09/08/17 at 22:59; Status DC Chlorhexidine Gluconate (Peridex 0.12% Liq) 15 ml TID SWISH-SPIT Last administered on 10/27/17 09:39; Start 10/11/17 at 18:00 Clonidine (Catapres) 0.3 mg Q8HR G-TUBE Last administered on 10/29/17 05:26; Start 09/25/17 at 14:00 Dantrolene Sodium (Dantrium Inj) 70 mg ONCE ONCE IV Last administered on 03:55; Start 09/13/17 at 03:00; Stop 09/13/17 at 03:01; Status DC Desmopressin Acetate (Ddavp Tae Spr) 1 spray ONCE ONCE EACH NARE Last administered on 09/07/17 15:00; Start 09/07/17 at 15:00; Stop 09/07/17 at 15 :01; Status DC Dexamethasone Sodium Phosphate (Decadron Inj) 6 mg Q12HR IV PUSH Last administered on 09/20/17 09:26; Start 09/17/17 at 21:00; Stop 09/20/17 at 20: 59; Status DC Dexmedetomidine HCl 50 ml @ 29.9 mls/hr TITRATE IV ; Start 08/30/17 at 14:15; Stop 08/30/17 at 14:46; Status DC Dexmedetomidine HCl 1000 mcg/ Sodium Chloride 250 ml @ 29.9 mls/hr TITRATE IV Last administered on 08/30/17 17:58; Start 08/30/17 at 16:45; Stop 08/31/17 at 06:14; Status DC Dexmedetomidine HCl 200 mcg/ Sodium Chloride 50 ml @ 29.9 mls/hr TITRATE IV Last administered on 08/30/17 15:27; Start 08/30/17 at 15:00; Stop 08/30/17 at 16:42; Status DC Dextrose 1,000 ml @ 42 mls/hr [id number] IV Last administered on 09/20/17 09:25 ; Start 09/19/17 at 08:45; Stop 09/20/17 at 11:39; Status DC Dextrose (D50w (Vial) Inj) 25 ml UNSCH PRN IV PUSH HYPOGLYCEMIA-SEE COMMENTS; Start 09/18/17 at 12:00 Diphenhydramine HCl (Benadryl Inj) 25 mg Q6H IV PUSH Last administered on 08:06; Start 09/15/17 at 15:00; Stop 09/18/17 at 14:59; Status DC Etomidate (Amidate Inj) 20 mg ONCE ONCE IVP ; Start 08/29/17 at 00:00; Stop 08/29/17 at 00:01; Status DC Famotidine (Pepcid) 20 mg BID NG Last administered on 10/29/17at 09:51; Start 09/24/17 at 09:30 Fentanyl Citrate 250 ml @ 5 mls/hr TITRATE PRN IV SEDATION Last administered on 09/11/17 06:14; Start 08/29/17 at 00:45; Stop 09/11/17 at 10:20; Status DC Fluticasone Propionate (Flonase Tae Spr) 2 spray DAILY EACH NARE Last administered on 10/27/17 09:41; Start 09/05/17 at 17:00 Gabapentin (Neurontin) 100 mg TID PO Last administered on 10/29/17 09:51; Start 10/26/17 at 13:00 Gelatin (Gelfoam 12 Mm/7 Mm Top) 1 foam Q2HR PRN TOPICAL if still bleeding from peg Last administered on 09/08/17 08:00; Start 09/07/17 at 19:45 Glucagon (Glucagon Inj) 1 mg UNSCH PRN OTHER HYPOGLYCEMIA-SEE COMMENTS; Start 09/25/17 at 09:30 Haloperidol Lactate (Haldol Inj) 5 mg Q4H PRN IV agitation Last administered on 09/12/17 23:04; Start 08/31/17 at 11:00; Stop 09/25/17 at 09:30; Status DC Heparin Sodium (Porcine) (Heparin Inj) 5,000 units Q12HR SQ Last administered on 09/28/17 08:20; Start 09/11/17 at 21:00; Status Future Hold Hydralazine HCl (Apresoline Inj) 10 mg Q30M PRN IV PUSH sbp > 160 Last administered on 09/19/17 09:08; Start 08/30/17 at 08:15 Hydralazine HCl (Apresoline) 100 mg Q8HR G-TUBE Last administered on 10/29/17 05:26; Start 09/25/17 at 14:00 Hydrochlorothiazide (Hydrodiuril) 25 mg DAILY PO Last administered on 10:37; Start 08/29/17 at 09:00; Stop 09/08/17 at 11:02; Status DC Insulin Aspart (NovoLOG SUPPLEMENTAL SCALE) 1 Q6H SQ Last administered on 17:50; Start 09/25/17 at 12:00 Insulin Detemir (Levemir Inj) 20 units Q12H SQ Last administered on 10/29/17 09:51; Start 09/19/17 at 10:00 Insulin Human Regular (NovoLIN R SUPPLEMENTAL SCALE) 1 Q4HR SQ Last administered on 09/25/17 04:09; Start 09/18/17 at 12:00; Stop 09/25/17 at 09: 28; Status DC Insulin Human Regular (NovoLIN R INJ) See Protocol Table ... LAMP TESTER [employer] INSPECTOR PRN SQ SEE PROTOCOL TABLE; Start 09/05/17 at 23:00; Stop 09/08/17 at 22:59; Status DC Labetalol HCl (Trandate Inj) 10 mg Q20M PRN IV PUSH SBP>140, DBP>90 Last administered on 09/19/17 02:16; Start 08/29/17 at 00:45 Labetalol HCl (Trandate) 300 mg NOW ONCE PEG Last administered on 09/17/17 04 :23; Start 09/17/17 at 04:15; Stop 09/17/17 at 04:16; Status DC Lactated Ringer's 1,000 ml @ 30 mls/hr Q24H PRN IV SEE LABEL COMMENTS; Start 09/05/17 at 23:00; Stop 09/08/17 at 22:59; Status DC Lactulose (Lactulose Liq) 30 ml BID PO Last administered on 09/04/17 19:57; Start 08/31/17 at 12:00; Stop 09/25/17 at 09:30; Status DC Lidocaine HCl (Lidocaine Pf 2% Neb) 1 ml Q6HR NEB PRN NEB cough/bronchial irritation; Start 09/16/17 at 11:30 Lisinopril (Prinivil) 40 mg DAILY PO Last administered on 09/04/17 09:07; Start 08/29/17 at 09:00; Stop 09/04/17 at 12:18; Status DC Lorazepam (Ativan Inj) 1 mg ONCE ONCE IV PUSH Last administered on 09/13/17 02:57; Start 09/13/17 at 02:45; Stop 09/13/17 at 02:46; Status DC Lorazepam (Ativan) 1 mg Q12H PO Last administered on 09/09/17 20:27; Start 09/07/17 at 19:00; Stop 09/11/17 at 10:25; Status DC Magnesium Hydroxide (Milk Of Magnesia Liq) 30 ml Q12H PRN PO Mild constipation ; Start 08/29/17 at 00:45; Stop 08/31/17 at 11:08; Status DC Magnesium Citrate (Citroma Liq) 300 ml ONCE ONCE PO Last administered on 08/31 11:57; Start 08/31/17 at 12:00; Stop 08/31/17 at 12:01; Status DC Magnesium Oxide (Mag-Ox) 800 mg UNSCH PRN PO For Magnesium 1.2 - 1.6 mg/dL; Start 08/30/17 at 08:15; Stop 08/31/17 at 13:02; Status DC Magnesium Sulfate 2 gm/Sodium Chloride 100 ml @ 50 mls/hr UNSCH PRN IV For Magnesium 1.2 - 1.6 mg/dL; Start 08/30/17 at 08:15; Stop 08/31/17 at 13:02; Status DC Magnesium Sulfate 4 gm/Sodium Chloride 100 ml @ 50 mls/hr UNSCH PRN IV For Magnesium 0.9 - 1.1 mg/dL; Start 08/30/17 at 08:15; Stop 08/31/17 at 13:02; Status DC Magnesium Sulfate/ Dextrose 100 ml @ 100 mls/hr Q1H IV Last administered on 12:22; Start 08/31/17 at 12:00; Stop 08/31/17 at 13:00; Status DC Methylprednisolone Sodium Succinate (SoluMEDROL INJ) 125 mg ONCE ONCE IV PUSH Last administered on 10/20/17at 13:09; Start 10/20/17 at 12:15; Stop 10/20/17 at 12:16; Status DC Metoclopramide HCl (Reglan Inj) 5 mg Q8HR IV PUSH Last administered on 22:55; Start 09/09/17 at 22:00; Stop 09/11/17 at 10:25; Status DC Metoprolol Tartrate (Lopressor) 25 mg Q8H G-TUBE ; Start 09/25/17 at 13:00; Stop 09/25/17 at 13:00; Status DC Midazolam HCl (Versed Inj) 10 mg ONCE ONCE IV PUSH ; Start 09/08/17 at 13:00; Stop 09/08/17 at 13:41; Status DC Miscellaneous Information 1 [id number] Last administered on 08/29/17 01:00; Start 08/29/17 at 00:45; Stop 10/24/17 at 04:26; Status DC Modafinil (Provigil) 200 mg DAILY PO Last administered on 09/12/17 09:07; Start 09/11/17 at 12:00; Stop 09/25/17 at 09:30; Status DC Morphine Sulfate (Morphine Inj) 2 mg Q2H PRN IV PUSH breakthru pain Last administered on 10/24/17 20:42; Start 09/24/17 at 16:30 Nicardipine HCl 25 mg/Sodium Chloride 250 ml @ 50 mls/hr TITRATE PRN IV Blood pressure management Last administered on 09/17/17 04:57; Start 09/13/17 at 02: 45; Stop 09/17/17 at 12:47; Status DC Nicardipine HCl 50 mg/Sodium Chloride 500 ml @ 50 mls/hr TITRATE PRN IV BLOOD PRESSURE MANAGEMENT Last administered on 09/05/17 22:00; Start 09/02/17 at 21 :15; Stop 09/11/17 at 10:25; Status DC Ondansetron HCl (Zofran Inj) 4 mg Q6H PRN IV PUSH NAUSEA OR VOMITING Last administered on 09/11/17 14:18; Start 08/29/17 at 00:45 Oxycodone HCl (Roxicodone Intensol Liq) 5 mg Q6H PRN G-TUBE pain 6-10 Last administered on 10/25/17 13:36; Start 09/25/17 at 15:00 Pantoprazole Sodium (Protonix Inj) 40 mg DAILY IV PUSH Last administered on 09:15; Start 08/29/17 at 09:00; Stop 09/11/17 at 10:25; Status DC Pharmacy Profile Note 0 ml @ 0 mls/hr UNSCH OTHER ; Start 09/13/17 at 02:45; Stop 09/17/17 at 10:11; Status DC Piperacillin Sod/ Tazobactam Sod 50 ml @ 100 mls/hr Q6H IV Last administered on 09/19/17 20:26; Start 09/13/17 at 03:00; Stop 09/19/17 at 23:00; Status DC Polyethylene Glycol (Miralax) 17 gm BID G-TUBE Last administered on 10/27/17at 09:41; Start 09/25/17 at 21:00 Potassium Chloride 30 meq/ Sodium Chloride 115 ml @ 38.333 mls/ hr ONCE ONCE IV-CENTRAL Last administered on 09/03/17 13:36; Start 09/03/17 at 14:00; Stop 09/03/17 at 16:59; Status DC Potassium Phosphate (K-Phos) 2,000 mg UNSCH PRN PO/TUBE SEE LABEL COMMENTS; Start 08/30/17 at 08:15; Stop 08/31/17 at 13:02; Status DC Potassium Phosphate 30 mmol/ Sodium Chloride 260 ml @ 42 mls/hr UNSCH PRN IV SEE LABEL COMMENTS; Start 08/30/17 at 08:15; Stop 08/31/17 at 13:02; Status DC Potassium Bicarb/ Potassium Chloride (K-Lyte Cl Eff) 50 meq ONCE ONCE PO Last administered on 09/25/17 05:25; Start 09/25/17 at 04:30; Stop 09/25/17 at 04:31; Status DC Potassium Chloride 100 ml @ 50 mls/hr Q2H IV Last administered on 09/15/17 10 :22; Start 09/15/17 at 08:15; Stop 09/15/17 at 12:14; Status DC Potassium Chloride (KCl Powder) 40 meq ONCE ONCE PEG Last administered on 12:15; Start 09/08/17 at 12:15; Stop 09/08/17 at 12:21; Status DC Potassium Chloride (KCl) 40 meq ONCE ONCE PO ; Start 09/08/17 at 09:00; Stop 09/08/17 at 12:05; Status DC Povidone Iodine (Betadine 5% Antisepsis Kit) 1 applic LAMP TESTER AND INSPECTOR PRN EACH NARE SEE LABEL COMMENTS; Start 09/05/17 at 23:00; Stop 09/08/17 at 22:59; Status DC Propofol 100 ml @ 14.352 mls/ hr TITRATE PRN IV SEDATION Last administered on 09/10/17 09:59; Start 08/31/17 at 00:30; Stop 09/11/17 at 10:20; Status DC Propranolol HCl (Inderal) 40 mg Q6HR G-TUBE Last administered on 10/29/17at 05: 26; Start 09/25/17 at 12:00 Quetiapine Fumarate (SEROquel) 50 mg Q8HR G-TUBE Last administered on 05:26; Start 09/25/17 at 14:00 Rocuronium [place] (Zemuron Inj) 100 mg BOLUS ONCE IV ; Start 09/08/17 at 13: 00; Stop 09/08/17 at 13:44; Status DC Senna/Docusate Sodium (Melina-Colace) 1 tab BID G-TUBE Last administered on 09:39; Start 09/25/17 at 21:00 Sennosides (Senokot) 17.2 mg Q12H PRN PO Moderate constipation; Start at 00:45; Stop 08/31/17 at 11:08; Status DC Silver Nitrate/ Potassium Nitrate (Silver Nitrate Applicators) 1 appl ONCE ONCE TOPICAL Last administered on 09/07/17 10:15; Start 09/07/17 at 10:15; Stop 09/07/17 at 10:47; Status DC Sodium Polystyrene Sulfonate (Kayexalate Liq) 30 gm Q2HR PO Last administered on 09/21/17 19:53; Start 09/21/17 at 16:00; Stop 09/21/17 at 21:00; Status DC Sodium Chloride 250 ml @ 15 mls/hr ONCE ONCE IV ; Start 09/28/17 at 10:15; Stop 09/28/17 at 16:53; Status DC Sodium Chloride (NS Flush) 2 ml UNSCH PRN IVF FLUSH AFTER USING IV ACCESS Last administered on 10/24/17 20:44; Start 08/29/17 at 00:00 Sodium Chloride 38.5 meq/Sterile Water 1,009.625 ml @ 42 mls/hr Q24H IV Last administered on 09/25/17 06:01; Start 09/20/17 at 13:00; Stop 09/25/17 at 09 :24; Status DC Sodium Phosphate 30 mmol/Sodium Chloride 250 ml @ 42 mls/hr UNSCH PRN IV For Phosphorus < 2.5 mg/dL; Start 08/30/17 at 08:15; Stop 08/31/17 at 13:02; Status DC Succinylcholine Chloride (Quelicin Inj) 100 mg ONCE ONCE IV PUSH ; Start 08/29 at 00:00; Stop 08/29/17 at 00:01; Status DC Vancomycin HCl 1500 mg/Sodium Chloride 515 ml @ 257.5 mls/ hr ONCE ONCE IV Last administered on 09/16/17 17:07; Start 09/16/17 at 15:00; Stop 09/16/17 at 16:59; Status DC Vancomycin HCl 2000 mg/Sodium Chloride 520 ml @ 250 mls/hr ONCE ONCE IV Last administered on 09/13/17 05:52; Start 09/13/17 at 04:00; Stop 09/13/17 at 06:04 ; Status DC Vancomycin HCl 2500 mg/Sodium Chloride 525 ml @ 250 mls/hr ONCE ONCE IV Last administered on 09/14/17 12:29; Start 09/14/17 at 12:00; Stop 09/14/17 at 14:05 ; Status DC Water (Free Water) 300 ml Q4HR G-TUBE Last administered on 10/27/17at 04:00; Start 09/18/17 at 12:00 A/P Problem List: (1) Intracranial hemorrhage ICD Code: I62.9 - Nontraumatic intracranial hemorrhage, unspecified Status: Acute Assessment and Plan A/P Acute encephalopathy - improving. Left Thalamic Hemorrhage Intracerebral Hemorrhage - Repeat CT of the head showed improving bleed - Neurosurgery follow-up appreciated; stable for dc to SNF per neurosurgery. - Continue rehabilitation efforts with PT, OT, speech - On Seroquel to control agitated delirium. Roxicodone as needed for pain Anemia likely due to chronic disease. H/H fairly stable. will monitor periodically. Healthcare associated pneumonia finished the course of antibiotic. UTI: treated. Respiratory failure s/p trach - continue neb treatment. -Patient had angioedema, source unclear and was seen by ENT. He was treated with steroids. Per ENT, expect slow improvement. This is resolving. -Appreciate pulmonology following for trach management Respiratory failure s/p trach -pulmonary following. Hyperglycemia - - Continue Levemir 20 units SQ q12h - Continue sliding scale insulin with Accu-Cheks. - hemoglobin A1c 9.1. Hypertension - Intermittent hypertension now well controlled - Continue clonidine, amlodipine and propranolol - Continue hydralazine. Nutrition status: - Status post PEG tube - -on diet now per ST. Acute kidney injury, most likely has CKD per nephrology: Renal function stabilized. - monitor renal function periodically. Physical deconditioning/right sided hemiparesis - OOB to stretcher chair daily - PT/OT following AND SPEECH PROPH: - SCD's. Pepcid for GI prophylaxis Discharge Planning dc planning to SNF in progress. Zoë Rivas MD Oct 29, 2017 13:00
[2017-10-29] MEDS: ATORVASTATIN 40 MG TAB DOBHOFF SCH (21:47)
[2017-10-30] VITALS (7 sets, daily range): BP systolic 119–158; BP diastolic 61–83; PULSE 85–106; RESP 18–20; TEMP 98.2–100.3; O2SAT 95–100
[2017-10-30] MEDS: hydrALAZINE HCL 100 MG TAB G-TUBE SCH ×3 (04:54→22:28)
[2017-10-30] MEDS: cloNIDine HCL 0.3 MG TAB G-TUBE SCH ×3 (04:54→22:28)
[2017-10-30] MEDS: QUEtiapine FUMARATE 25 MG TAB G-TUBE SCH ×3 (04:54→22:29)
[2017-10-30] MEDS: PROPRANOLOL HCL 40 MG TAB G-TUBE SCH ×3 (04:55→19:06)
[2017-10-30] MEDS: INSULIN ASPART SUPPLEMENTAL SCALE SQ SCH ×4 (04:55→18:00)
[2017-10-30] MEDS: FREE WATER G-TUBE SCH ×4 (08:00→20:00)
[2017-10-30] MEDS: FLUTICASONE PROPIONATE 50 MCG/ACT 16 GM NASAL SPRAY EACH NARE SCH (09:00)
[2017-10-30] MEDS: DOCUSATE SODIUM 50 MG/SENNA 8.6 MG TAB G-TUBE SCH ×2 (09:00→21:00)
[2017-10-30] MEDS: CHLORHEXIDINE GLUCONATE 0.12% 15 ML CUP SWISH-SPIT SCH ×3 (09:00→18:00)
[2017-10-30] MEDS: POLYETHYLENE GLYCOL 17 GM PKG G-TUBE SCH ×2 (09:00→21:00)
[2017-10-30] MEDS: INSULIN DETEMIR 100 UNITS/ML VIAL SQ SCH ×2 (10:00→22:00)
[2017-10-30] MEDS: FAMOTIDINE 20 MG TAB NG SCH ×2 (10:21→22:29)
[2017-10-30] MEDS: GABAPENTIN 100 MG CAP PO SCH ×3 (10:21→19:06)
--- NOTE | 2017-10-30 10:43 | HHI.PR ---
Subjective Remarks in no acute distress. denies pain. no new complaints. Objective Vitals Vital Signs Date Time Temp Pulse Resp B/P (MAP) Pulse Ox O2 Delivery O2 Flow Rate FiO2 10/30/17 10:10 21 10/30/17 08:00 98.5 85 18 144/74 (97) 97 10/30/17 04:00 98.2 87 20 150/76 (100) 95 10/30/17 04:00 Room Air Trach Collar T-Piece 10/30/17 03:47 88 10/30/17 00:00 Room Air Trach Collar 10/30/17 00:00 99.0 86 20 119/61 (80) 100 10/29/17 23:44 85 10/29/17 20:00 98.0 78 20 160/88 (112) 96 10/29/17 20:00 Room Air 10/29/17 19:47 79 10/29/17 16:55 100 Nasal Cannula 3.00 10/29/17 16:00 97.4 86 18 157/81 (106) 100 10/29/17 16:00 83 10/29/17 12:00 98.1 84 18 152/83 (106) 100 10/29/17 12:00 82 I/O 10/29/17 10/29/17 10/29/17 10/30/17 10/30/17 10/30/17 07:00 15:00 23:00 07:00 15:00 23:00 Intake Total 480 ml 360 ml Output Total 300 ml 850 ml Balance -300 ml 480 ml -490 ml Intake Oral 480 ml 360 ml Output Urine Total 300 ml 850 ml # Voids 4 # Bowel Movements 1 0 Result Diagram: 10/27/17 0827 Imaging Last Impressions Head CT 10/27/17 1001 Signed Impressions: Service Date/Time: Friday, October 27, 2017 10:55 - CONCLUSION: 1. Small area of encephalomalacia in the left basal ganglia corresponding to the area of hemorrhage seen on the previous exam. No new areas of hemorrhage are seen. No significant mass effect is identified. Ant Reece MD Chest X-Ray 10/24/17 0600 Signed Impressions: Service Date/Time: Tuesday, October 24, 2017 04:21 - CONCLUSION: No significant interval change. Iain Fragoso MD Maxillofacial CT 09/16/17 0000 Signed Impressions: Service Date/Time: September 01:03 - CONCLUSION: 1. Evidence of acute pansinusitis. 2. Opacification of multiple bilateral mastoid air cells most characteristic of mastoiditis. 3. Mildly prominent cervical chain nodes which may be reactive. Angelo Conn MD Upper Extremity Ultrasound 09/15/17 0000 Signed Impressions: Service Date/Time: Friday, September 15, 2017 17:14 - CONCLUSION: Occlusive thrombus within the left cephalic vein and nonocclusive thrombus within the right cephalic vein. Ric Jack MD Lower Extremity Ultrasound 09/15/17 0000 Signed Impressions: Service Date/Time: Friday, September 15, 2017 16:58 - CONCLUSION: No evidence of DVT within the lower extremities. Ric Jack MD Chest CT 09/13/17 0000 Signed Impressions: Service Date/Time: Wednesday, September 13, 2017 09:28 - CONCLUSION: 1. Bibasilar and left lingular dependent atelectatic changes. Lungs are otherwise clear. 2. Tracheostomy tube with the tip probably positioned above the connie. 3. Compensated cardiomegaly. Reyes Guzman MD Abdomen/Pelvis CT 09/13/17 0000 Signed Impressions: Service Date/Time: Wednesday, September 13, 2017 09:28 - CONCLUSION: 1. There is some stranding in the retroperitoneal perivascular tissues around the distal aorta extending into the bifurcation with a regional borderline lymph nodes. Findings are characteristic of a nonspecific inflammatory process. Findings could represent early retroperitoneal fibrosis.. 2. Urinary bladder is decompressed with some mural thickening in pericystic inflammatory changes possibly representing a chronic cystitis. Nondependent air could be associated with a recent catheterization/instrumentation. 3. Small umbilical and right inguinal hernias only contain fat. 4. Bilateral dependent basilar and left lingular atelectatic changes. Heart size is borderline prominent. 5. Otherwise , bowel is intact without obstruction to explain abdominal distention Reyes Guzman MD Abdomen X-Ray 09/10/17 0600 Signed Impressions: Service Date/Time: Sunday, September 10, 2017 03:56 - CONCLUSION: No significant abnormality is identified. There is mild distention of the colon but there are no findings to suggest bowel obstruction or significant ileus. Ignacio Underwood MD Liver Ultrasound 09/07/17 0000 Signed Impressions: Service Date/Time: Thursday, September 07, 2017 12:37 - CONCLUSION: 1. Unremarkable sonographic appearance of the liver. No evidence for hepatic volume loss or intrahepatic ductal dilatation. 2. No sonographic evidence for cholelithiasis or acute cholecystitis. 3. Mild increased right renal echogenicity may reflect medical renal disease. 4. Small bilateral pleural effusions. 5. Pancreas and inferior pole of the right kidney are obscured by bowel gas and therefore not evaluated. Darrell Robles MD Renal Ultrasound 08/31/17 0000 Signed Impressions: Service Date/Time: Thursday, August 31, 2017 17:42 - CONCLUSION: 1. No evidence of hydronephrosis on either side. 2. Solitary linear echogenic focus in the upper pole parenchyma of the right kidney has similar features to prior examination in January 2017 and possibly represents a calcification. David Snell MD Neck CTA 08/28/17 2347 Signed Impressions: Service Date/Time: Tuesday, August 29, 2017 00:13 - CONCLUSION: Negative carotid CTA. David Snell MD Head CTA 08/28/17 2347 Signed Impressions: Service Date/Time: Tuesday, August 29, 2017 00:13 - CONCLUSION: 1. No evidence of vessel truncation or aneurysm. 2. No abnormal vessels in the region of the large left thalamic hemorrhage. David Snell MD Objective Remarks GENERAL: in no apparent distress. Neck; trach in place. CARDIOVASCULAR: Regular rate and irregular rhythm without murmurs, gallops, or rubs. RESPIRATORY: Clear to auscultation. Breath sounds equal bilaterally. No wheezes , rales, or rhonchi. GASTROINTESTINAL: Abdomen soft, non-tender, nondistended. Normal, active bowel sounds-PEG in place. MUSCULOSKELETAL: Extremities without clubbing, cyanosis, or edema. NEURO: awake. Procedures Tracheostomy and PEG placement Medications and IVs Inpatient Medications Acetaminophen (Tylenol) 650 mg Q6H PRN G-TUBE PAIN 1-5 AND/OR FEVER >101F Last administered on 10/15/17at 23:34; Start 09/25/17 at 12:45 Albuterol Sulfate (Albuterol Neb) 2.5 mg Q2HR NEB PRN NEB sob/wheeze Last administered on 10/11/17 17:07; Start 09/25/17 at 13:30 Albuterol/ Ipratropium (Duoneb Neb) 1 ampule Q6HR NEB NEB Last administered on 10/27/17 10:00; Start 10/23/17 at 16:00; Stop 10/27/17 at 13:18; Status DC Amlodipine Besylate (Norvasc) 10 mg DAILY G-TUBE Last administered on 10:21; Start 09/26/17 at 09:00 Atorvastatin Calcium (Lipitor) 40 mg HS DOBHOFF Last administered on 10/29/17 21:47; Start 09/25/17 at 21:00 Bisacodyl (Dulcolax Supp) 10 mg DAILY RECTAL Last administered on 08/31/17 11 :58; Start 08/31/17 at 12:00; Stop 09/25/17 at 09:30; Status DC Calcium Acetate (Phoslo) 667 mg TID PO Last administered on 09/08/17 10:38; Start 08/31/17 at 18:00; Stop 09/08/17 at 11:02; Status DC Cefuroxime Axetil (Ceftin) 500 mg Q12HR PO Last administered on 10/03/17 09: 03; Start 09/26/17 at 11:15; Stop 10/03/17 at 11:14; Status DC Chlorhexidine Gluconate (Chlorhexidine 2% Cloth) 3 pack TUBE BUILDER PRN TOPICAL SEE LABEL COMMENTS; Start 09/05/17 at 23:00; Stop 09/08/17 at 22:59; Status DC Chlorhexidine Gluconate (Peridex 0.12% Liq) 15 ml TID SWISH-SPIT Last administered on 10/27/17at 09:39; Start 10/11/17 at 18:00 Clonidine (Catapres) 0.3 mg Q8HR G-TUBE Last administered on 10/30/17 04:54; Start 09/25/17 at 14:00 Dantrolene Sodium (Dantrium Inj) 70 mg ONCE ONCE IV Last administered on 03:55; Start 09/13/17 at 03:00; Stop 09/13/17 at 03:01; Status DC Desmopressin Acetate (Ddavp Tae Spr) 1 spray ONCE ONCE EACH NARE Last administered on 09/07/17 15:00; Start 09/07/17 at 15:00; Stop 09/07/17 at 15 :01; Status DC Dexamethasone Sodium Phosphate (Decadron Inj) 6 mg Q12HR IV PUSH Last administered on 09/20/17 09:26; Start 09/17/17 at 21:00; Stop 09/20/17 at 20: 59; Status DC Dexmedetomidine HCl 50 ml @ 29.9 mls/hr TITRATE IV ; Start 08/30/17 at 14:15; Stop 08/30/17 at 14:46; Status DC Dexmedetomidine HCl 1000 mcg/ Sodium Chloride 250 ml @ 29.9 mls/hr TITRATE IV Last administered on 08/30/17 17:58; Start 08/30/17 at 16:45; Stop 08/31/17 at 06:14; Status DC Dexmedetomidine HCl 200 mcg/ Sodium Chloride 50 ml @ 29.9 mls/hr TITRATE IV Last administered on 08/30/17 15:27; Start 08/30/17 at 15:00; Stop 08/30/17 at 16:42; Status DC Dextrose 1,000 ml @ 42 mls/hr [id number] IV Last administered on 09/20/17 09:25 ; Start 09/19/17 at 08:45; Stop 09/20/17 at 11:39; Status DC Dextrose (D50w (Vial) Inj) 25 ml UNSCH PRN IV PUSH HYPOGLYCEMIA-SEE COMMENTS; Start 09/18/17 at 12:00 Diphenhydramine HCl (Benadryl Inj) 25 mg Q6H IV PUSH Last administered on 08:06; Start 09/15/17 at 15:00; Stop 09/18/17 at 14:59; Status DC Etomidate (Amidate Inj) 20 mg ONCE ONCE IVP ; Start 08/29/17 at 00:00; Stop 08/29/17 at 00:01; Status DC Famotidine (Pepcid) 20 mg BID NG Last administered on 10/30/17at 10:21; Start 09/24/17 at 09:30 Fentanyl Citrate 250 ml @ 5 mls/hr TITRATE PRN IV SEDATION Last administered on 09/11/17 06:14; Start 08/29/17 at 00:45; Stop 09/11/17 at 10:20; Status DC Fluticasone Propionate (Flonase Tae Spr) 2 spray DAILY EACH NARE Last administered on 10/27/17 09:41; Start 09/05/17 at 17:00 Gabapentin (Neurontin) 100 mg TID PO Last administered on 10/30/17 10:21; Start 10/26/17 at 13:00 Gelatin (Gelfoam 12 Mm/7 Mm Top) 1 foam Q2HR PRN TOPICAL if still bleeding from peg Last administered on 09/08/17 08:00; Start 09/07/17 at 19:45 Glucagon (Glucagon Inj) 1 mg UNSCH PRN OTHER HYPOGLYCEMIA-SEE COMMENTS; Start 09/25/17 at 09:30 Haloperidol Lactate (Haldol Inj) 5 mg Q4H PRN IV agitation Last administered on 09/12/17 23:04; Start 08/31/17 at 11:00; Stop 09/25/17 at 09:30; Status DC Heparin Sodium (Porcine) (Heparin Inj) 5,000 units Q12HR SQ Last administered on 09/28/17 08:20; Start 09/11/17 at 21:00; Status Future Hold Hydralazine HCl (Apresoline Inj) 10 mg Q30M PRN IV PUSH sbp > 160 Last administered on 09/19/17 09:08; Start 08/30/17 at 08:15 Hydralazine HCl (Apresoline) 100 mg Q8HR G-TUBE Last administered on 10/30/17 04:54; Start 09/25/17 at 14:00 Hydrochlorothiazide (Hydrodiuril) 25 mg DAILY PO Last administered on 10:37; Start 08/29/17 at 09:00; Stop 09/08/17 at 11:02; Status DC Insulin Aspart (NovoLOG SUPPLEMENTAL SCALE) 1 Q6H SQ Last administered on 17:50; Start 09/25/17 at 12:00 Insulin Detemir (Levemir Inj) 20 units Q12H SQ Last administered on 10/29/17 09:51; Start 09/19/17 at 10:00 Insulin Human Regular (NovoLIN R SUPPLEMENTAL SCALE) 1 Q4HR SQ Last administered on 09/25/17 04:09; Start 09/18/17 at 12:00; Stop 09/25/17 at 09: 28; Status DC Insulin Human Regular (NovoLIN R INJ) See Protocol Table ... TUBE BUILDER PRN SQ SEE PROTOCOL TABLE; Start 09/05/17 at 23:00; Stop 09/08/17 at 22:59; Status DC Labetalol HCl (Trandate Inj) 10 mg Q20M PRN IV PUSH SBP>140, DBP>90 Last administered on 09/19/17 02:16; Start 08/29/17 at 00:45 Labetalol HCl (Trandate) 300 mg NOW ONCE PEG Last administered on 09/17/17 04 :23; Start 09/17/17 at 04:15; Stop 09/17/17 at 04:16; Status DC Lactated Ringer's 1,000 ml @ 30 mls/hr Q24H PRN IV SEE LABEL COMMENTS; Start 09/05/17 at 23:00; Stop 09/08/17 at 22:59; Status DC Lactulose (Lactulose Liq) 30 ml BID PO Last administered on 09/04/17 19:57; Start 08/31/17 at 12:00; Stop 09/25/17 at 09:30; Status DC Lidocaine HCl (Lidocaine Pf 2% Neb) 1 ml Q6HR NEB PRN NEB cough/bronchial irritation; Start 09/16/17 at 11:30 Lisinopril (Prinivil) 40 mg DAILY PO Last administered on 09/04/17 09:07; Start 08/29/17 at 09:00; Stop 09/04/17 at 12:18; Status DC Lorazepam (Ativan Inj) 1 mg ONCE ONCE IV PUSH Last administered on 09/13/17 02:57; Start 09/13/17 at 02:45; Stop 09/13/17 at 02:46; Status DC Lorazepam (Ativan) 1 mg Q12H PO Last administered on 09/09/17 20:27; Start 09/07/17 at 19:00; Stop 09/11/17 at 10:25; Status DC Magnesium Hydroxide (Milk Of Magnesia Liq) 30 ml Q12H PRN PO Mild constipation ; Start 08/29/17 at 00:45; Stop 08/31/17 at 11:08; Status DC Magnesium Citrate (Citroma Liq) 300 ml ONCE ONCE PO Last administered on 08/31 11:57; Start 08/31/17 at 12:00; Stop 08/31/17 at 12:01; Status DC Magnesium Oxide (Mag-Ox) 800 mg UNSCH PRN PO For Magnesium 1.2 - 1.6 mg/dL; Start 08/30/17 at 08:15; Stop 08/31/17 at 13:02; Status DC Magnesium Sulfate 2 gm/Sodium Chloride 100 ml @ 50 mls/hr UNSCH PRN IV For Magnesium 1.2 - 1.6 mg/dL; Start 08/30/17 at 08:15; Stop 08/31/17 at 13:02; Status DC Magnesium Sulfate 4 gm/Sodium Chloride 100 ml @ 50 mls/hr UNSCH PRN IV For Magnesium 0.9 - 1.1 mg/dL; Start 08/30/17 at 08:15; Stop 08/31/17 at 13:02; Status DC Magnesium Sulfate/ Dextrose 100 ml @ 100 mls/hr Q1H IV Last administered on 12:22; Start 08/31/17 at 12:00; Stop 08/31/17 at 13:00; Status DC Methylprednisolone Sodium Succinate (SoluMEDROL INJ) 125 mg ONCE ONCE IV PUSH Last administered on 10/20/17at 13:09; Start 10/20/17 at 12:15; Stop 10/20/17 at 12:16; Status DC Metoclopramide HCl (Reglan Inj) 5 mg Q8HR IV PUSH Last administered on 22:55; Start 09/09/17 at 22:00; Stop 09/11/17 at 10:25; Status DC Metoprolol Tartrate (Lopressor) 25 mg Q8H G-TUBE ; Start 09/25/17 at 13:00; Stop 09/25/17 at 13:00; Status DC Midazolam HCl (Versed Inj) 10 mg ONCE ONCE IV PUSH ; Start 09/08/17 at 13:00; Stop 09/08/17 at 13:41; Status DC Miscellaneous Information 1 [id number] Last administered on 08/29/17 01:00; Start 08/29/17 at 00:45; Stop 10/24/17 at 04:26; Status DC Modafinil (Provigil) 200 mg DAILY PO Last administered on 09/12/17 09:07; Start 09/11/17 at 12:00; Stop 09/25/17 at 09:30; Status DC Morphine Sulfate (Morphine Inj) 2 mg Q2H PRN IV PUSH breakthru pain Last administered on 10/24/17 20:42; Start 09/24/17 at 16:30 Nicardipine HCl 25 mg/Sodium Chloride 250 ml @ 50 mls/hr TITRATE PRN IV Blood pressure management Last administered on 09/17/17 04:57; Start 09/13/17 at 02: 45; Stop 09/17/17 at 12:47; Status DC Nicardipine HCl 50 mg/Sodium Chloride 500 ml @ 50 mls/hr TITRATE PRN IV BLOOD PRESSURE MANAGEMENT Last administered on 09/05/17 22:00; Start 09/02/17 at 21 :15; Stop 09/11/17 at 10:25; Status DC Ondansetron HCl (Zofran Inj) 4 mg Q6H PRN IV PUSH NAUSEA OR VOMITING Last administered on 09/11/17 14:18; Start 08/29/17 at 00:45 Oxycodone HCl (Roxicodone Intensol Liq) 5 mg Q6H PRN G-TUBE pain 6-10 Last administered on 10/25/17 13:36; Start 09/25/17 at 15:00 Pantoprazole Sodium (Protonix Inj) 40 mg DAILY IV PUSH Last administered on 09:15; Start 08/29/17 at 09:00; Stop 09/11/17 at 10:25; Status DC Pharmacy Profile Note 0 ml @ 0 mls/hr UNSCH OTHER ; Start 09/13/17 at 02:45; Stop 09/17/17 at 10:11; Status DC Piperacillin Sod/ Tazobactam Sod 50 ml @ 100 mls/hr Q6H IV Last administered on 09/19/17 20:26; Start 09/13/17 at 03:00; Stop 09/19/17 at 23:00; Status DC Polyethylene Glycol (Miralax) 17 gm BID G-TUBE Last administered on 1/17/18at 09:41; Start 09/25/17 at 21:00 Potassium Chloride 30 meq/ Sodium Chloride 115 ml @ 38.333 mls/ hr ONCE ONCE IV-CENTRAL Last administered on 09/03/17 13:36; Start 09/03/17 at 14:00; Stop 09/03/17 at 16:59; Status DC Potassium Phosphate (K-Phos) 2,000 mg UNSCH PRN PO/TUBE SEE LABEL COMMENTS; Start 08/30/17 at 08:15; Stop 08/31/17 at 13:02; Status DC Potassium Phosphate 30 mmol/ Sodium Chloride 260 ml @ 42 mls/hr UNSCH PRN IV SEE LABEL COMMENTS; Start 08/30/17 at 08:15; Stop 08/31/17 at 13:02; Status DC Potassium Bicarb/ Potassium Chloride (K-Lyte Cl Eff) 50 meq ONCE ONCE PO Last administered on 09/25/17 05:25; Start 09/25/17 at 04:30; Stop 09/25/17 at 04:31; Status DC Potassium Chloride 100 ml @ 50 mls/hr Q2H IV Last administered on 09/15/17 10 :22; Start 09/15/17 at 08:15; Stop 09/15/17 at 12:14; Status DC Potassium Chloride (KCl Powder) 40 meq ONCE ONCE PEG Last administered on 12:15; Start 09/08/17 at 12:15; Stop 09/08/17 at 12:21; Status DC Potassium Chloride (KCl) 40 meq ONCE ONCE PO ; Start 09/08/17 at 09:00; Stop 09/08/17 at 12:05; Status DC Povidone Iodine (Betadine 5% Antisepsis Kit) 1 applic TUBE BUILDER PRN EACH NARE SEE LABEL COMMENTS; Start 09/05/17 at 23:00; Stop 09/08/17 at 22:59; Status DC Propofol 100 ml @ 14.352 mls/ hr TITRATE PRN IV SEDATION Last administered on 09/10/17 09:59; Start 08/31/17 at 00:30; Stop 09/11/17 at 10:20; Status DC Propranolol HCl (Inderal) 40 mg Q6HR G-TUBE Last administered on 10/30/17at 04: 55; Start 09/25/17 at 12:00 Quetiapine Fumarate (SEROquel) 50 mg Q8HR G-TUBE Last administered on 04:54; Start 09/25/17 at 14:00 Rocuronium [place] (Zemuron Inj) 100 mg BOLUS ONCE IV ; Start 09/08/17 at 13: 00; Stop 09/08/17 at 13:44; Status DC Senna/Docusate Sodium (Melina-Colace) 1 tab BID G-TUBE Last administered on 09:39; Start 09/25/17 at 21:00 Sennosides (Senokot) 17.2 mg Q12H PRN PO Moderate constipation; Start at 00:45; Stop 08/31/17 at 11:08; Status DC Silver Nitrate/ Potassium Nitrate (Silver Nitrate Applicators) 1 appl ONCE ONCE TOPICAL Last administered on 09/07/17 10:15; Start 09/07/17 at 10:15; Stop 09/07/17 at 10:47; Status DC Sodium Polystyrene Sulfonate (Kayexalate Liq) 30 gm Q2HR PO Last administered on 09/21/17 19:53; Start 09/21/17 at 16:00; Stop 09/21/17 at 21:00; Status DC Sodium Chloride 250 ml @ 15 mls/hr ONCE ONCE IV ; Start 09/28/17 at 10:15; Stop 09/28/17 at 16:53; Status DC Sodium Chloride (NS Flush) 2 ml UNSCH PRN IVF FLUSH AFTER USING IV ACCESS Last administered on 10/24/17at 20:44; Start 08/29/17 at 00:00 Sodium Chloride 38.5 meq/Sterile Water 1,009.625 ml @ 42 mls/hr Q24H IV Last administered on 09/25/17 06:01; Start 09/20/17 at 13:00; Stop 09/25/17 at 09 :24; Status DC Sodium Phosphate 30 mmol/Sodium Chloride 250 ml @ 42 mls/hr UNSCH PRN IV For Phosphorus < 2.5 mg/dL; Start 08/30/17 at 08:15; Stop 08/31/17 at 13:02; Status DC Succinylcholine Chloride (Quelicin Inj) 100 mg ONCE ONCE IV PUSH ; Start 08/29 at 00:00; Stop 08/29/17 at 00:01; Status DC Vancomycin HCl 1500 mg/Sodium Chloride 515 ml @ 257.5 mls/ hr ONCE ONCE IV Last administered on 09/16/17 17:07; Start 09/16/17 at 15:00; Stop 09/16/17 at 16:59; Status DC Vancomycin HCl 2000 mg/Sodium Chloride 520 ml @ 250 mls/hr ONCE ONCE IV Last administered on 09/13/17 05:52; Start 09/13/17 at 04:00; Stop 09/13/17 at 06:04 ; Status DC Vancomycin HCl 2500 mg/Sodium Chloride 525 ml @ 250 mls/hr ONCE ONCE IV Last administered on 09/14/17 12:29; Start 09/14/17 at 12:00; Stop 09/14/17 at 14:05 ; Status DC Water (Free Water) 300 ml Q4HR G-TUBE Last administered on 10/27/17at 04:00; Start 09/18/17 at 12:00 A/P Problem List: (1) Intracranial hemorrhage ICD Code: I62.9 - Nontraumatic intracranial hemorrhage, unspecified Status: Acute Assessment and Plan A/P Acute encephalopathy - improving. Left Thalamic Hemorrhage Intracerebral Hemorrhage - Repeat CT of the head showed improving bleed - Neurosurgery follow-up appreciated; stable for dc to SNF per neurosurgery. - Continue rehabilitation efforts with PT, OT, speech - On Seroquel to control agitated delirium. Roxicodone as needed for pain Anemia likely due to chronic disease. H/H fairly stable. will monitor periodically. Healthcare associated pneumonia finished the course of antibiotic. UTI: treated. Respiratory failure s/p trach - continue neb treatment. -Patient had angioedema, source unclear and was seen by ENT. He was treated with steroids. Per ENT, expect slow improvement. This is resolving. -Appreciate pulmonology following for trach management Respiratory failure s/p trach -pulmonary following. Hyperglycemia - - decreased Levemir to 18 units SQ q12h - Continue sliding scale insulin with Accu-Cheks. - hemoglobin A1c 9.1. Hypertension - Intermittent hypertension now well controlled - Continue clonidine, amlodipine and propranolol - Continue hydralazine. Nutrition status: - Status post PEG tube - -on diet now per ST. Acute kidney injury, most likely has CKD per nephrology: Renal function stabilized. - monitor renal function periodically. Physical deconditioning/right sided hemiparesis - OOB to stretcher chair daily - PT/OT following AND SPEECH PROPH: - SCD's. Pepcid for GI prophylaxis Discharge Planning dc planning to rehab in progress. Zoë Rivas MD Oct 30, 2017 10:43
--- NOTE | 2017-10-30 13:43 | HHI.PR ---
Subjective Remarks Patient is lying in bed in NAD. Afebrile. Has fenestrated trach Able to talk On RA Objective Vital Signs Vital Signs Date Time Temp Pulse Resp B/P (MAP) Pulse Ox O2 Delivery O2 Flow Rate FiO2 10/30/17 12:00 99.7 94 18 158/79 (105) 96 10/30/17 10:10 21 10/30/17 08:00 98.5 85 18 144/74 (97) 97 10/30/17 04:00 98.2 87 20 150/76 (100) 95 10/30/17 04:00 Room Air Trach Collar T-Piece 10/30/17 03:47 88 10/30/17 00:00 Room Air Trach Collar 10/30/17 00:00 99.0 86 20 119/61 (80) 100 10/29/17 23:44 85 10/29/17 20:00 98.0 78 20 160/88 (112) 96 10/29/17 20:00 Room Air 10/29/17 19:47 79 10/29/17 16:55 100 Nasal Cannula 3.00 10/29/17 16:00 97.4 86 18 157/81 (106) 100 10/29/17 16:00 83 I/O 10/29/17 10/29/17 10/29/17 10/30/17 10/30/17 10/30/17 06:59 14:59 22:59 06:59 14:59 22:59 Intake Total 480 ml 360 ml Output Total 300 ml 850 ml Balance -300 ml 480 ml -490 ml Intake Oral 480 ml 360 ml Output Urine Total 300 ml 850 ml # Voids 4 # Bowel Movements 1 0 Result Diagram: 10/27/17 0827 Objective Remarks GENERAL: Patient is lying in bed in NAD SKIN: Warm and dry. HEAD: Normocephalic. EYES: No scleral icterus. No injection or drainage. NECK: Supple, trachea midline. No JVD or lymphadenopathy. CARDIOVASCULAR: Regular rate and rhythm without murmurs, gallops, or rubs. RESPIRATORY: Breath sounds equal bilaterally. No accessory muscle use. GASTROINTESTINAL: Abdomen soft, non-tender, nondistended. MUSCULOSKELETAL: No cyanosis, or edema. BACK: Nontender without obvious deformity. No CVA tenderness. Neuro: Awake and alert A/P Assessment and Plan Resp failure S/P Trach HTN s/p ICH, right side flaccid Pneumonia PLAN Continue with oxygen keep sat >92% Bronchodilators Pulm toilet, trach care Continue treatment plan. Jesus Villar MD Oct 30, 2017 13:43
[2017-10-30] MEDS: ATORVASTATIN 40 MG TAB DOBHOFF SCH (22:28)
[2017-10-31] VITALS (8 sets, daily range): BP systolic 118–152; BP diastolic 66–81; PULSE 90–106; RESP 18–22; TEMP 98.7–100.2; O2SAT 94–96
[2017-10-31] MEDS: oxyCODONE HCL ORAL CONC 5 MG/0.25 ML SYRINGE G-TUBE PRN (02:11)
[2017-10-31 04:58] LABS: BICARBONATE 23.9 MEQ/L (21.0-32.0); CALCIUM 9.5 MG/DL (8.5-10.1); CREATININE 0.93 MG/DL (0.60-1.30)
[2017-10-31 05:05] LABS: AUTOMATED NEUTROPHIL # 14.1 TH/MM3 (1.8-7.7); BASOPHIL # 0.1 TH/MM3 (0-0.2); BASOPHIL % 0.4 % (0.0-2.0); EOSINOPHIL # 0.2 TH/MM3 (0-0.4); EOSINOPHIL % 1.2 % (0.0-4.0); HEMATOCRIT 30.4 % (39.0-51.0); HEMOGLOBIN 9.5 GM/DL (13.0-17.0); MEAN CORPUSCULAR HEMOGLOBIN 25.3 PG (27.0-34.0); MEAN CORPUSCULAR HGB CONC 31.3 % (32.0-36.0); MEAN PLATELET VOLUME 9.3 FL (7.0-11.0); MONO % 6.2 % (0.0-8.0); NEUT % 86.2 % (16.0-70.0); PLATELET COUNT 393 TH/MM3 (150-450); RED BLOOD COUNT 3.76 MIL/MM3 (4.50-5.90); RED CELL DISTRIBUTION WIDTH 15.6 % (11.6-17.2); WHITE BLOOD COUNT 16.4 TH/MM3 (4.0-11.0)
[2017-10-31] MEDS: INSULIN ASPART SUPPLEMENTAL SCALE SQ SCH ×4 (05:20→18:00)
[2017-10-31] MEDS: QUEtiapine FUMARATE 25 MG TAB G-TUBE SCH ×3 (05:22→21:58)
[2017-10-31] MEDS: PROPRANOLOL HCL 40 MG TAB G-TUBE SCH ×4 (05:22→18:02)
[2017-10-31] MEDS: hydrALAZINE HCL 100 MG TAB G-TUBE SCH ×3 (05:22→21:58)
[2017-10-31] MEDS: cloNIDine HCL 0.3 MG TAB G-TUBE SCH ×3 (05:23→21:58)
[2017-10-31] MEDS: FREE WATER G-TUBE SCH ×6 (05:23→20:00)
[2017-10-31] MEDS: POLYETHYLENE GLYCOL 17 GM PKG G-TUBE SCH ×2 (08:37→21:00)
[2017-10-31] MEDS: FLUTICASONE PROPIONATE 50 MCG/ACT 16 GM NASAL SPRAY EACH NARE SCH (08:37)
[2017-10-31] MEDS: DOCUSATE SODIUM 50 MG/SENNA 8.6 MG TAB G-TUBE SCH ×2 (08:37→21:00)
[2017-10-31] MEDS: FAMOTIDINE 20 MG TAB NG SCH ×2 (08:58→21:58)
[2017-10-31] MEDS: GABAPENTIN 100 MG CAP PO SCH ×3 (08:58→18:02)
[2017-10-31] MEDS: CHLORHEXIDINE GLUCONATE 0.12% 15 ML CUP SWISH-SPIT SCH ×3 (09:00→18:00)
[2017-10-31] MEDS: INSULIN DETEMIR 100 UNITS/ML VIAL SQ SCH ×2 (10:00→21:56)
--- NOTE | 2017-10-31 10:52 | HHI.PR ---
Subjective Remarks in no acute distress. had a low garde fever last night but no fever this morning. reported had some pain to the legs yesterday but he denies any pain today. d/w the RN and RT. Objective Vitals Vital Signs Date Time Temp Pulse Resp B/P (MAP) Pulse Ox O2 Delivery O2 Flow Rate FiO2 10/31/17 08:00 92 10/31/17 08:00 98.7 90 18 118/66 (83) 95 10/31/17 04:23 106 10/31/17 04:00 98.7 105 20 150/77 (101) 96 10/31/17 00:29 96 21 10/31/17 00:00 100.2 91 22 120/72 (88) 96 10/31/17 00:00 99 10/31/17 00:00 Room Air Trach Collar T-Piece 10/30/17 20:00 97 10/30/17 20:00 100.3 98 20 144/83 (103) 95 10/30/17 16:00 98.4 100 18 152/77 (102) 97 10/30/17 12:00 99.7 94 18 158/79 (105) 96 I/O 10/30/17 10/30/17 10/30/17 10/31/17 10/31/17 10/31/17 07:00 15:00 23:00 07:00 15:00 23:00 Intake Total 360 ml 480 ml 280 ml Output Total 850 ml 800 ml 500 ml Balance -490 ml -320 ml -220 ml Intake Oral 360 ml 480 ml 280 ml Output Urine Total 850 ml 800 ml 500 ml # Voids 2 # Bowel Movements 0 0 Result Diagram: 10/31/17 0340 10/31/17 0340 Imaging Last Impressions Head CT 10/27/17 1001 Signed Impressions: Service Date/Time: Friday, October 27, 2017 10:55 - CONCLUSION: 1. Small area of encephalomalacia in the left basal ganglia corresponding to the area of hemorrhage seen on the previous exam. No new areas of hemorrhage are seen. No significant mass effect is identified. Ant Reece MD Chest X-Ray 10/24/17 0600 Signed Impressions: Service Date/Time: Tuesday, October 24, 2017 04:21 - CONCLUSION: No significant interval change. Iain Fragoso MD Maxillofacial CT 09/16/17 0000 Signed Impressions: Service Date/Time: September 01:03 - CONCLUSION: 1. Evidence of acute pansinusitis. 2. Opacification of multiple bilateral mastoid air cells most characteristic of mastoiditis. 3. Mildly prominent cervical chain nodes which may be reactive. Angelo Conn MD Upper Extremity Ultrasound 09/15/17 0000 Signed Impressions: Service Date/Time: Friday, September 15, 2017 17:14 - CONCLUSION: Occlusive thrombus within the left cephalic vein and nonocclusive thrombus within the right cephalic vein. Ric Jack MD Lower Extremity Ultrasound 09/15/17 0000 Signed Impressions: Service Date/Time: Friday, September 15, 2017 16:58 - CONCLUSION: No evidence of DVT within the lower extremities. Ric Jack MD Chest CT 09/13/17 0000 Signed Impressions: Service Date/Time: Wednesday, September 13, 2017 09:28 - CONCLUSION: 1. Bibasilar and left lingular dependent atelectatic changes. Lungs are otherwise clear. 2. Tracheostomy tube with the tip probably positioned above the connie. 3. Compensated cardiomegaly. Reyes Guzman MD Abdomen/Pelvis CT 09/13/17 0000 Signed Impressions: Service Date/Time: Wednesday, September 13, 2017 09:28 - CONCLUSION: 1. There is some stranding in the retroperitoneal perivascular tissues around the distal aorta extending into the bifurcation with a regional borderline lymph nodes. Findings are characteristic of a nonspecific inflammatory process. Findings could represent early retroperitoneal fibrosis.. 2. Urinary bladder is decompressed with some mural thickening in pericystic inflammatory changes possibly representing a chronic cystitis. Nondependent air could be associated with a recent catheterization/instrumentation. 3. Small umbilical and right inguinal hernias only contain fat. 4. Bilateral dependent basilar and left lingular atelectatic changes. Heart size is borderline prominent. 5. Otherwise , bowel is intact without obstruction to explain abdominal distention Reyes Guzman MD Abdomen X-Ray 09/10/17 0600 Signed Impressions: Service Date/Time: Sunday, September 10, 2017 03:56 - CONCLUSION: No significant abnormality is identified. There is mild distention of the colon but there are no findings to suggest bowel obstruction or significant ileus. Ignacio Underwood MD Liver Ultrasound 09/07/17 0000 Signed Impressions: Service Date/Time: Thursday, September 07, 2017 12:37 - CONCLUSION: 1. Unremarkable sonographic appearance of the liver. No evidence for hepatic volume loss or intrahepatic ductal dilatation. 2. No sonographic evidence for cholelithiasis or acute cholecystitis. 3. Mild increased right renal echogenicity may reflect medical renal disease. 4. Small bilateral pleural effusions. 5. Pancreas and inferior pole of the right kidney are obscured by bowel gas and therefore not evaluated. Darrell Robles MD Renal Ultrasound 08/31/17 0000 Signed Impressions: Service Date/Time: Thursday, August 31, 2017 17:42 - CONCLUSION: 1. No evidence of hydronephrosis on either side. 2. Solitary linear echogenic focus in the upper pole parenchyma of the right kidney has similar features to prior examination in January 2017 and possibly represents a calcification. David Snell MD Neck CTA 08/28/17 2347 Signed Impressions: Service Date/Time: Tuesday, August 29, 2017 00:13 - CONCLUSION: Negative carotid CTA. David Snell MD Head CTA 08/28/17 2347 Signed Impressions: Service Date/Time: Tuesday, August 29, 2017 00:13 - CONCLUSION: 1. No evidence of vessel truncation or aneurysm. 2. No abnormal vessels in the region of the large left thalamic hemorrhage. David Snell MD Objective Remarks GENERAL: in no apparent distress. Neck; trach in place. CARDIOVASCULAR: Regular rate and irregular rhythm without murmurs, gallops, or rubs. RESPIRATORY: Clear to auscultation. Breath sounds equal bilaterally. No wheezes , rales, or rhonchi. GASTROINTESTINAL: Abdomen soft, non-tender, nondistended. Normal, active bowel sounds-PEG in place. MUSCULOSKELETAL: Extremities without clubbing, cyanosis, or edema. NEURO: awake. Procedures Tracheostomy and PEG placement Medications and IVs Inpatient Medications Acetaminophen (Tylenol) 650 mg Q6H PRN G-TUBE PAIN 1-5 AND/OR FEVER >101F Last administered on 10/15/17at 23:34; Start 09/25/17 at 12:45 Albuterol Sulfate (Albuterol Neb) 2.5 mg Q2HR NEB PRN NEB sob/wheeze Last administered on 10/11/17 17:07; Start 09/25/17 at 13:30 Albuterol/ Ipratropium (Duoneb Neb) 1 ampule Q6HR NEB NEB Last administered on 10/27/17at 10:00; Start 10/23/17 at 16:00; Stop 10/27/17 at 13:18; Status DC Amlodipine Besylate (Norvasc) 10 mg DAILY G-TUBE Last administered on 08:58; Start 09/26/17 at 09:00 Atorvastatin Calcium (Lipitor) 40 mg HS DOBHOFF Last administered on 10/30/17 22:28; Start 09/25/17 at 21:00 Bisacodyl (Dulcolax Supp) 10 mg DAILY RECTAL Last administered on 08/31/17 11 :58; Start 08/31/17 at 12:00; Stop 09/25/17 at 09:30; Status DC Calcium Acetate (Phoslo) 667 mg TID PO Last administered on 09/08/17 10:38; Start 08/31/17 at 18:00; Stop 09/08/17 at 11:02; Status DC Cefuroxime Axetil (Ceftin) 500 mg Q12HR PO Last administered on 10/03/17 09: 03; Start 09/26/17 at 11:15; Stop 10/03/17 at 11:14; Status DC Chlorhexidine Gluconate (Chlorhexidine 2% Cloth) 3 pack TWISTING FRAME FIXER PRN TOPICAL SEE LABEL COMMENTS; Start 09/05/17 at 23:00; Stop 09/08/17 at 22:59; Status DC Chlorhexidine Gluconate (Peridex 0.12% Liq) 15 ml TID SWISH-SPIT Last administered on 10/27/17at 09:39; Start 10/11/17 at 18:00 Clonidine (Catapres) 0.3 mg Q8HR G-TUBE Last administered on 10/31/17 05:23; Start 09/25/17 at 14:00 Dantrolene Sodium (Dantrium Inj) 70 mg ONCE ONCE IV Last administered on 03:55; Start 09/13/17 at 03:00; Stop 09/13/17 at 03:01; Status DC Desmopressin Acetate (Ddavp Tae Spr) 1 spray ONCE ONCE EACH NARE Last administered on 09/07/17 15:00; Start 09/07/17 at 15:00; Stop 09/07/17 at 15 :01; Status DC Dexamethasone Sodium Phosphate (Decadron Inj) 6 mg Q12HR IV PUSH Last administered on 09/20/17 09:26; Start 09/17/17 at 21:00; Stop 09/20/17 at 20: 59; Status DC Dexmedetomidine HCl 50 ml @ 29.9 mls/hr TITRATE IV ; Start 08/30/17 at 14:15; Stop 08/30/17 at 14:46; Status DC Dexmedetomidine HCl 1000 mcg/ Sodium Chloride 250 ml @ 29.9 mls/hr TITRATE IV Last administered on 08/30/17 17:58; Start 08/30/17 at 16:45; Stop 08/31/17 at 06:14; Status DC Dexmedetomidine HCl 200 mcg/ Sodium Chloride 50 ml @ 29.9 mls/hr TITRATE IV Last administered on 08/30/17 15:27; Start 08/30/17 at 15:00; Stop 08/30/17 at 16:42; Status DC Dextrose 1,000 ml @ 42 mls/hr [id number] IV Last administered on 09/20/17 09:25 ; Start 09/19/17 at 08:45; Stop 09/20/17 at 11:39; Status DC Dextrose (D50w (Vial) Inj) 25 ml UNSCH PRN IV PUSH HYPOGLYCEMIA-SEE COMMENTS; Start 09/18/17 at 12:00 Diphenhydramine HCl (Benadryl Inj) 25 mg Q6H IV PUSH Last administered on 08:06; Start 09/15/17 at 15:00; Stop 09/18/17 at 14:59; Status DC Etomidate (Amidate Inj) 20 mg ONCE ONCE IVP ; Start 08/29/17 at 00:00; Stop 08/29/17 at 00:01; Status DC Famotidine (Pepcid) 20 mg BID NG Last administered on 10/31/17at 08:58; Start 09/24/17 at 09:30 Fentanyl Citrate 250 ml @ 5 mls/hr TITRATE PRN IV SEDATION Last administered on 09/11/17 06:14; Start 08/29/17 at 00:45; Stop 09/11/17 at 10:20; Status DC Fluticasone Propionate (Flonase Tae Spr) 2 spray DAILY EACH NARE Last administered on 10/27/17 09:41; Start 09/05/17 at 17:00 Gabapentin (Neurontin) 100 mg TID PO Last administered on 10/31/17 08:58; Start 10/26/17 at 13:00 Gelatin (Gelfoam 12 Mm/7 Mm Top) 1 foam Q2HR PRN TOPICAL if still bleeding from peg Last administered on 09/08/17 08:00; Start 09/07/17 at 19:45 Glucagon (Glucagon Inj) 1 mg UNSCH PRN OTHER HYPOGLYCEMIA-SEE COMMENTS; Start 09/25/17 at 09:30 Haloperidol Lactate (Haldol Inj) 5 mg Q4H PRN IV agitation Last administered on 09/12/17 23:04; Start 08/31/17 at 11:00; Stop 09/25/17 at 09:30; Status DC Heparin Sodium (Porcine) (Heparin Inj) 5,000 units Q12HR SQ Last administered on 09/28/17 08:20; Start 09/11/17 at 21:00; Status Future Hold Hydralazine HCl (Apresoline Inj) 10 mg Q30M PRN IV PUSH sbp > 160 Last administered on 09/19/17 09:08; Start 08/30/17 at 08:15 Hydralazine HCl (Apresoline) 100 mg Q8HR G-TUBE Last administered on 10/31/17 05:22; Start 09/25/17 at 14:00 Hydrochlorothiazide (Hydrodiuril) 25 mg DAILY PO Last administered on 10:37; Start 08/29/17 at 09:00; Stop 09/08/17 at 11:02; Status DC Insulin Aspart (NovoLOG SUPPLEMENTAL SCALE) 1 Q6H SQ Last administered on 17:50; Start 09/25/17 at 12:00 Insulin Detemir (Levemir Inj) 18 units Q12H SQ ; Start 10/30/17 at 22:00 Insulin Human Regular (NovoLIN R SUPPLEMENTAL SCALE) 1 Q4HR SQ Last administered on 09/25/17 04:09; Start 09/18/17 at 12:00; Stop 09/25/17 at 09: 28; Status DC Insulin Human Regular (NovoLIN R INJ) See Protocol Table ... TWISTING FRAME FIXER PRN SQ SEE PROTOCOL TABLE; Start 09/05/17 at 23:00; Stop 09/08/17 at 22:59; Status DC Labetalol HCl (Trandate Inj) 10 mg Q20M PRN IV PUSH SBP>140, DBP>90 Last administered on 09/19/17 02:16; Start 08/29/17 at 00:45 Labetalol HCl (Trandate) 300 mg NOW ONCE PEG Last administered on 09/17/17 04 :23; Start 09/17/17 at 04:15; Stop 09/17/17 at 04:16; Status DC Lactated Ringer's 1,000 ml @ 30 mls/hr Q24H PRN IV SEE LABEL COMMENTS; Start 09/05/17 at 23:00; Stop 09/08/17 at 22:59; Status DC Lactulose (Lactulose Liq) 30 ml BID PO Last administered on 09/04/17 19:57; Start 08/31/17 at 12:00; Stop 09/25/17 at 09:30; Status DC Lidocaine HCl (Lidocaine Pf 2% Neb) 1 ml Q6HR NEB PRN NEB cough/bronchial irritation; Start 09/16/17 at 11:30 Lisinopril (Prinivil) 40 mg DAILY PO Last administered on 09/04/17 09:07; Start 08/29/17 at 09:00; Stop 09/04/17 at 12:18; Status DC Lorazepam (Ativan Inj) 1 mg ONCE ONCE IV PUSH Last administered on 09/13/17 02:57; Start 09/13/17 at 02:45; Stop 09/13/17 at 02:46; Status DC Lorazepam (Ativan) 1 mg Q12H PO Last administered on 09/09/17 20:27; Start 09/07/17 at 19:00; Stop 09/11/17 at 10:25; Status DC Magnesium Hydroxide (Milk Of Magnesia Liq) 30 ml Q12H PRN PO Mild constipation ; Start 08/29/17 at 00:45; Stop 08/31/17 at 11:08; Status DC Magnesium Citrate (Citroma Liq) 300 ml ONCE ONCE PO Last administered on 08/31 11:57; Start 08/31/17 at 12:00; Stop 08/31/17 at 12:01; Status DC Magnesium Oxide (Mag-Ox) 800 mg UNSCH PRN PO For Magnesium 1.2 - 1.6 mg/dL; Start 08/30/17 at 08:15; Stop 08/31/17 at 13:02; Status DC Magnesium Sulfate 2 gm/Sodium Chloride 100 ml @ 50 mls/hr UNSCH PRN IV For Magnesium 1.2 - 1.6 mg/dL; Start 08/30/17 at 08:15; Stop 08/31/17 at 13:02; Status DC Magnesium Sulfate 4 gm/Sodium Chloride 100 ml @ 50 mls/hr UNSCH PRN IV For Magnesium 0.9 - 1.1 mg/dL; Start 08/30/17 at 08:15; Stop 08/31/17 at 13:02; Status DC Magnesium Sulfate/ Dextrose 100 ml @ 100 mls/hr Q1H IV Last administered on 12:22; Start 08/31/17 at 12:00; Stop 08/31/17 at 13:00; Status DC Methylprednisolone Sodium Succinate (SoluMEDROL INJ) 125 mg ONCE ONCE IV PUSH Last administered on 10/20/17at 13:09; Start 10/20/17 at 12:15; Stop 10/20/17 at 12:16; Status DC Metoclopramide HCl (Reglan Inj) 5 mg Q8HR IV PUSH Last administered on 22:55; Start 09/09/17 at 22:00; Stop 09/11/17 at 10:25; Status DC Metoprolol Tartrate (Lopressor) 25 mg Q8H G-TUBE ; Start 09/25/17 at 13:00; Stop 09/25/17 at 13:00; Status DC Midazolam HCl (Versed Inj) 10 mg ONCE ONCE IV PUSH ; Start 09/08/17 at 13:00; Stop 09/08/17 at 13:41; Status DC Miscellaneous Information 1 [id number] Last administered on 08/29/17 01:00; Start 08/29/17 at 00:45; Stop 10/24/17 at 04:26; Status DC Modafinil (Provigil) 200 mg DAILY PO Last administered on 09/12/17 09:07; Start 09/11/17 at 12:00; Stop 09/25/17 at 09:30; Status DC Morphine Sulfate (Morphine Inj) 2 mg Q2H PRN IV PUSH breakthru pain Last administered on 10/24/17 20:42; Start 09/24/17 at 16:30 Nicardipine HCl 25 mg/Sodium Chloride 250 ml @ 50 mls/hr TITRATE PRN IV Blood pressure management Last administered on 09/17/17 04:57; Start 09/13/17 at 02: 45; Stop 09/17/17 at 12:47; Status DC Nicardipine HCl 50 mg/Sodium Chloride 500 ml @ 50 mls/hr TITRATE PRN IV BLOOD PRESSURE MANAGEMENT Last administered on 09/05/17 22:00; Start 09/02/17 at 21 :15; Stop 09/11/17 at 10:25; Status DC Ondansetron HCl (Zofran Inj) 4 mg Q6H PRN IV PUSH NAUSEA OR VOMITING Last administered on 09/11/17 14:18; Start 08/29/17 at 00:45 Oxycodone HCl (Roxicodone Intensol Liq) 5 mg Q6H PRN G-TUBE pain 6-10 Last administered on 10/31/17 02:11; Start 09/25/17 at 15:00 Pantoprazole Sodium (Protonix Inj) 40 mg DAILY IV PUSH Last administered on 09:15; Start 08/29/17 at 09:00; Stop 09/11/17 at 10:25; Status DC Pharmacy Profile Note 0 ml @ 0 mls/hr UNSCH OTHER ; Start 09/13/17 at 02:45; Stop 09/17/17 at 10:11; Status DC Piperacillin Sod/ Tazobactam Sod 50 ml @ 100 mls/hr Q6H IV Last administered on 09/19/17 20:26; Start 09/13/17 at 03:00; Stop 09/19/17 at 23:00; Status DC Polyethylene Glycol (Miralax) 17 gm BID G-TUBE Last administered on 10/27/17at 09:41; Start 09/25/17 at 21:00 Potassium Chloride 30 meq/ Sodium Chloride 115 ml @ 38.333 mls/ hr ONCE ONCE IV-CENTRAL Last administered on 09/03/17 13:36; Start 09/03/17 at 14:00; Stop 09/03/17 at 16:59; Status DC Potassium Phosphate (K-Phos) 2,000 mg UNSCH PRN PO/TUBE SEE LABEL COMMENTS; Start 08/30/17 at 08:15; Stop 08/31/17 at 13:02; Status DC Potassium Phosphate 30 mmol/ Sodium Chloride 260 ml @ 42 mls/hr UNSCH PRN IV SEE LABEL COMMENTS; Start 08/30/17 at 08:15; Stop 08/31/17 at 13:02; Status DC Potassium Bicarb/ Potassium Chloride (K-Lyte Cl Eff) 50 meq ONCE ONCE PO Last administered on 09/25/17 05:25; Start 09/25/17 at 04:30; Stop 09/25/17 at 04:31; Status DC Potassium Chloride 100 ml @ 50 mls/hr Q2H IV Last administered on 09/15/17 10 :22; Start 09/15/17 at 08:15; Stop 09/15/17 at 12:14; Status DC Potassium Chloride (KCl Powder) 40 meq ONCE ONCE PEG Last administered on 12:15; Start 09/08/17 at 12:15; Stop 09/08/17 at 12:21; Status DC Potassium Chloride (KCl) 40 meq ONCE ONCE PO ; Start 09/08/17 at 09:00; Stop 09/08/17 at 12:05; Status DC Povidone Iodine (Betadine 5% Antisepsis Kit) 1 applic TWISTING FRAME FIXER PRN EACH NARE SEE LABEL COMMENTS; Start 09/05/17 at 23:00; Stop 09/08/17 at 22:59; Status DC Propofol 100 ml @ 14.352 mls/ hr TITRATE PRN IV SEDATION Last administered on 09/10/17 09:59; Start 08/31/17 at 00:30; Stop 09/11/17 at 10:20; Status DC Propranolol HCl (Inderal) 40 mg Q6HR G-TUBE Last administered on 10/31/17at 05: 22; Start 09/25/17 at 12:00 Quetiapine Fumarate (SEROquel) 50 mg Q8HR G-TUBE Last administered on 05:22; Start 09/25/17 at 14:00 Rocuronium [place] (Zemuron Inj) 100 mg BOLUS ONCE IV ; Start 09/08/17 at 13: 00; Stop 09/08/17 at 13:44; Status DC Senna/Docusate Sodium (Melina-Colace) 1 tab BID G-TUBE Last administered on 09:39; Start 09/25/17 at 21:00 Sennosides (Senokot) 17.2 mg Q12H PRN PO Moderate constipation; Start at 00:45; Stop 08/31/17 at 11:08; Status DC Silver Nitrate/ Potassium Nitrate (Silver Nitrate Applicators) 1 appl ONCE ONCE TOPICAL Last administered on 09/07/17 10:15; Start 09/07/17 at 10:15; Stop 09/07/17 at 10:47; Status DC Sodium Polystyrene Sulfonate (Kayexalate Liq) 30 gm Q2HR PO Last administered on 09/21/17 19:53; Start 09/21/17 at 16:00; Stop 09/21/17 at 21:00; Status DC Sodium Chloride 250 ml @ 15 mls/hr ONCE ONCE IV ; Start 09/28/17 at 10:15; Stop 09/28/17 at 16:53; Status DC Sodium Chloride (NS Flush) 2 ml UNSCH PRN IVF FLUSH AFTER USING IV ACCESS Last administered on 10/24/17at 20:44; Start 08/29/17 at 00:00 Sodium Chloride 38.5 meq/Sterile Water 1,009.625 ml @ 42 mls/hr Q24H IV Last administered on 09/25/17 06:01; Start 09/20/17 at 13:00; Stop 09/25/17 at 09 :24; Status DC Sodium Phosphate 30 mmol/Sodium Chloride 250 ml @ 42 mls/hr UNSCH PRN IV For Phosphorus < 2.5 mg/dL; Start 08/30/17 at 08:15; Stop 08/31/17 at 13:02; Status DC Succinylcholine Chloride (Quelicin Inj) 100 mg ONCE ONCE IV PUSH ; Start 08/29 at 00:00; Stop 08/29/17 at 00:01; Status DC Vancomycin HCl 1500 mg/Sodium Chloride 515 ml @ 257.5 mls/ hr ONCE ONCE IV Last administered on 09/16/17 17:07; Start 09/16/17 at 15:00; Stop 09/16/17 at 16:59; Status DC Vancomycin HCl 2000 mg/Sodium Chloride 520 ml @ 250 mls/hr ONCE ONCE IV Last administered on 09/13/17 05:52; Start 09/13/17 at 04:00; Stop 09/13/17 at 06:04 ; Status DC Vancomycin HCl 2500 mg/Sodium Chloride 525 ml @ 250 mls/hr ONCE ONCE IV Last administered on 09/14/17 12:29; Start 09/14/17 at 12:00; Stop 09/14/17 at 14:05 ; Status DC Water (Free Water) 300 ml Q4HR G-TUBE Last administered on 10/31/17at 05:23; Start 09/18/17 at 12:00 A/P Problem List: (1) Intracranial hemorrhage ICD Code: I62.9 - Nontraumatic intracranial hemorrhage, unspecified Status: Acute Assessment and Plan A/P Acute encephalopathy - improving. Left Thalamic Hemorrhage Intracerebral Hemorrhage - Repeat CT of the head showed improving bleed - Neurosurgery follow-up appreciated; stable for dc to SNF per neurosurgery. - Continue rehabilitation efforts with PT, OT, speech - On Seroquel to control agitated delirium. Roxicodone as needed for pain Anemia likely due to chronic disease. H/H fairly stable. will monitor periodically. Healthcare associated pneumonia finished the course of antibiotic. UTI: treated. Respiratory failure s/p trach - continue neb treatment. -Patient had angioedema, source unclear and was seen by ENT. He was treated with steroids. Per ENT, expect slow improvement. This is resolving. -Appreciate pulmonology following for trach management Respiratory failure s/p trach -pulmonary following. Hyperglycemia - - decreased Levemir to 18 units SQ q12h - Continue sliding scale insulin with Accu-Cheks. - hemoglobin A1c 9.1. Hypertension - Intermittent hypertension now well controlled - Continue clonidine, amlodipine and propranolol - Continue hydralazine. Nutrition status: - Status post PEG tube - -on diet now per ST. Acute kidney injury, most likely has CKD per nephrology: Renal function stabilized. - monitor renal function periodically. fever/ leukocytosis will monitor temps for now- check UA and CXR- CBC tomorrow. Physical deconditioning/right sided hemiparesis - OOB to stretcher chair daily - PT/OT following AND SPEECH PROPH: - SCD's. Pepcid for GI prophylaxis Discharge Planning dc planning to rehab in progress. Zoë Rivas MD Oct 31, 2017 10:52
--- NOTE | 2017-10-31 13:02 | HHI.PR ---
Subjective Remarks Patient is lying in bed in NAD. Afebrile. Has fenestrated trach Able to talk On RA Tolerates PO Objective Vital Signs Vital Signs Date Time Temp Pulse Resp B/P (MAP) Pulse Ox O2 Delivery O2 Flow Rate FiO2 10/31/17 08:00 92 10/31/17 08:00 98.7 90 18 118/66 (83) 95 10/31/17 04:23 106 10/31/17 04:00 98.7 105 20 150/77 (101) 96 10/31/17 00:29 96 21 10/31/17 00:00 100.2 91 22 120/72 (88) 96 10/31/17 00:00 99 10/31/17 00:00 Room Air Trach Collar T-Piece 10/30/17 20:00 97 10/30/17 20:00 100.3 98 20 144/83 (103) 95 10/30/17 16:00 98.4 100 18 152/77 (102) 97 I/O 10/30/17 10/30/17 10/30/17 10/31/17 10/31/17 10/31/17 06:59 14:59 22:59 06:59 14:59 22:59 Intake Total 360 ml 480 ml 280 ml Output Total 850 ml 800 ml 500 ml Balance -490 ml -320 ml -220 ml Intake Oral 360 ml 480 ml 280 ml Output Urine Total 850 ml 800 ml 500 ml # Voids 2 # Bowel Movements 0 0 Result Diagram: 10/31/17 0340 10/31/17 0340 Objective Remarks GENERAL: Patient is lying in bed in NAD SKIN: Warm and dry. HEAD: Normocephalic. EYES: No scleral icterus. No injection or drainage. NECK: Supple, trachea midline. No JVD or lymphadenopathy. CARDIOVASCULAR: Regular rate and rhythm without murmurs, gallops, or rubs. RESPIRATORY: Breath sounds equal bilaterally. No accessory muscle use. GASTROINTESTINAL: Abdomen soft, non-tender, nondistended. MUSCULOSKELETAL: No cyanosis, or edema. BACK: Nontender without obvious deformity. No CVA tenderness. Neuro: Awake and alert A/P Assessment and Plan Resp failure S/P Trach HTN s/p ICH, right side flaccid Pneumonia PLAN Continue with oxygen keep sat >92% Bronchodilators Pulm toilet, trach care Continue treatment plan. Will try capping trach in AM Aneja,Jesus Dev MD Oct 31, 2017 13:02
--- NOTE | 2017-10-31 13:48 | RADRPT ---
EXAM DATE/TIME: 10/31/2017 13:18 [facility] COMPARISON: CHEST SINGLE AP, October 24, 2017, 4:21. INDICATIONS : Shortness of breath. Fever. MEDICAL HISTORY : Stroke. Cardiovascular disease. Hypertension. SURGICAL HISTORY : None. ENCOUNTER: Subsequent ACUITY: 4 - 6 days PAIN SCORE: 0/10 LOCATION: Bilateral chest FINDINGS: Cardiomegaly has not changed. Focal consolidation is not seen, however mild case of pulmonary venous congestion is suspected. Tracheostomy tube is present in satisfactory position. CONCLUSION: Possible mild CHF. Norma Malik MD on October 31, 2017 at 13:32 Board Certified Radiologist. This report was verified electronically.
[2017-10-31] MEDS: ATORVASTATIN 40 MG TAB DOBHOFF SCH (21:58)
[2017-11-01] VITALS (9 sets, daily range): BP systolic 133–161; BP diastolic 76–87; PULSE 89–98; RESP 18–20; TEMP 98.7–100; O2SAT 93–98
[2017-11-01] MEDS: PROPRANOLOL HCL 40 MG TAB G-TUBE SCH ×4 (00:42→17:46)
[2017-11-01] MEDS: FREE WATER G-TUBE SCH ×6 (04:00→20:00)
[2017-11-01] MEDS: hydrALAZINE HCL 100 MG TAB G-TUBE SCH ×3 (04:57→22:00)
[2017-11-01] MEDS: QUEtiapine FUMARATE 25 MG TAB G-TUBE SCH ×3 (04:57→22:00)
[2017-11-01] MEDS: cloNIDine HCL 0.3 MG TAB G-TUBE SCH ×3 (04:58→22:00)
[2017-11-01] MEDS: INSULIN ASPART SUPPLEMENTAL SCALE SQ SCH ×4 (05:22→17:46)
[2017-11-01] MEDS: oxyCODONE HCL ORAL CONC 5 MG/0.25 ML SYRINGE G-TUBE PRN ×3 (05:34→17:46)
[2017-11-01] MEDS: DOCUSATE SODIUM 50 MG/SENNA 8.6 MG TAB G-TUBE SCH ×2 (09:00→21:00)
[2017-11-01] MEDS: POLYETHYLENE GLYCOL 17 GM PKG G-TUBE SCH ×2 (09:00→21:00)
[2017-11-01 09:14] LABS: AUTOMATED NEUTROPHIL # 9.4 TH/MM3 (1.8-7.7); BASOPHIL % 0.3 % (0.0-2.0); EOSINOPHIL # 0.1 TH/MM3 (0-0.4); EOSINOPHIL % 1.3 % (0.0-4.0); HEMATOCRIT 28.6 % (39.0-51.0); LYMPH % 6.9 % (9.0-44.0); LYMPHOCYTE # 0.8 TH/MM3 (1.0-4.8); MEAN CELL VOLUME 79.8 FL (80.0-100.0); MEAN CORPUSCULAR HEMOGLOBIN 25.1 PG (27.0-34.0); MEAN CORPUSCULAR HGB CONC 31.5 % (32.0-36.0); MEAN PLATELET VOLUME 9.4 FL (7.0-11.0); MONO % 8.2 % (0.0-8.0); MONOCYTE # 0.9 TH/MM3 (0-0.9); NEUT % 83.3 % (16.0-70.0); PLATELET COUNT 353 TH/MM3 (150-450); RED BLOOD COUNT 3.58 MIL/MM3 (4.50-5.90); RED CELL DISTRIBUTION WIDTH 15.8 % (11.6-17.2); WHITE BLOOD COUNT 11.2 TH/MM3 (4.0-11.0)
[2017-11-01] MEDS ORDERED: PROP40TA3 G-TUBE (09:45)
[2017-11-01] MEDS ORDERED: AMLO10 G-TUBE (09:45)
[2017-11-01] MEDS ORDERED: GABA100C4 PO (09:45)
[2017-11-01] MEDS ORDERED: HYDR-3801 G-TUBE (09:45)
[2017-11-01] MEDS ORDERED: CLON-481 G-TUBE (09:45)
[2017-11-01] MEDS ORDERED: NOVOLOGSS SQ (09:45)
[2017-11-01] MEDS ORDERED: FAMO20TA2 NG (09:45)
[2017-11-01] MEDS ORDERED: SERO25TA G-TUBE (09:45)
[2017-11-01] MEDS ORDERED: Albuterol Neb NEB (09:45)
[2017-11-01] MEDS: FLUTICASONE PROPIONATE 50 MCG/ACT 16 GM NASAL SPRAY EACH NARE SCH (09:52)
[2017-11-01] MEDS: GABAPENTIN 100 MG CAP PO SCH ×3 (09:52→17:46)
[2017-11-01] MEDS: FAMOTIDINE 20 MG TAB NG SCH ×2 (09:52→21:00)
[2017-11-01] MEDS: CHLORHEXIDINE GLUCONATE 0.12% 15 ML CUP SWISH-SPIT SCH ×3 (09:59→17:46)
[2017-11-01] MEDS: INSULIN DETEMIR 100 UNITS/ML VIAL SQ SCH ×2 (09:59→22:00)
--- NOTE | 2017-11-01 10:21 | HHI.PR ---
Subjective Remarks in no acute distress. no fever spike. has mild pain to the right leg. otherwise no other complaints. d/w the RN. Objective Vitals Vital Signs Date Time Temp Pulse Resp B/P (MAP) Pulse Ox O2 Delivery O2 Flow Rate FiO2 11/01/17 08:00 99.7 96 20 161/86 (111) 95 11/01/17 04:00 99.6 97 18 155/83 (107) 96 11/01/17 00:00 98.7 98 20 148/80 (102) 96 10/31/17 22:00 Room Air Trach Collar T-Piece 10/31/17 20:00 94 10/31/17 20:00 98.9 101 20 152/81 (104) 94 10/31/17 16:00 106 10/31/17 16:00 99.2 103 18 149/78 (101) 95 10/31/17 12:00 99.1 98 18 146/75 (98) 94 I/O 10/31/17 10/31/17 10/31/17 11/01/17 11/01/17 11/01/17 07:00 15:00 23:00 07:00 15:00 23:00 Intake Total 280 ml 240 ml Output Total 500 ml 300 ml 800 ml Balance -220 ml -60 ml -800 ml Intake Oral 280 ml 240 ml Output Urine Total 500 ml 300 ml 800 ml Bladder Scan Volume Amount 30 ml # Voids 2 # Bowel Movements 0 Result Diagram: 11/01/17 0811 10/31/17 0340 Imaging Last Impressions Chest X-Ray 10/31/17 0000 Signed Impressions: Service Date/Time: Tuesday, October 31, 2017 13:18 - CONCLUSION: Possible mild CHF. K. Luigi Malik MD Head CT 10/27/17 1001 Signed Impressions: Service Date/Time: Friday, October 27, 2017 10:55 - CONCLUSION: 1. Small area of encephalomalacia in the left basal ganglia corresponding to the area of hemorrhage seen on the previous exam. No new areas of hemorrhage are seen. No significant mass effect is identified. Ant Reece MD Maxillofacial CT 09/16/17 0000 Signed Impressions: Service Date/Time: September 01:03 - CONCLUSION: 1. Evidence of acute pansinusitis. 2. Opacification of multiple bilateral mastoid air cells most characteristic of mastoiditis. 3. Mildly prominent cervical chain nodes which may be reactive. Angelo Conn MD Upper Extremity Ultrasound 09/15/17 0000 Signed Impressions: Service Date/Time: Friday, September 15, 2017 17:14 - CONCLUSION: Occlusive thrombus within the left cephalic vein and nonocclusive thrombus within the right cephalic vein. Ric Jack MD Lower Extremity Ultrasound 09/15/17 0000 Signed Impressions: Service Date/Time: Friday, September 15, 2017 16:58 - CONCLUSION: No evidence of DVT within the lower extremities. Ric Jack MD Chest CT 09/13/17 0000 Signed Impressions: Service Date/Time: Wednesday, September 13, 2017 09:28 - CONCLUSION: 1. Bibasilar and left lingular dependent atelectatic changes. Lungs are otherwise clear. 2. Tracheostomy tube with the tip probably positioned above the connie. 3. Compensated cardiomegaly. Reyes Guzman MD Abdomen/Pelvis CT 09/13/17 0000 Signed Impressions: Service Date/Time: Wednesday, September 13, 2017 09:28 - CONCLUSION: 1. There is some stranding in the retroperitoneal perivascular tissues around the distal aorta extending into the bifurcation with a regional borderline lymph nodes. Findings are characteristic of a nonspecific inflammatory process. Findings could represent early retroperitoneal fibrosis.. 2. Urinary bladder is decompressed with some mural thickening in pericystic inflammatory changes possibly representing a chronic cystitis. Nondependent air could be associated with a recent catheterization/instrumentation. 3. Small umbilical and right inguinal hernias only contain fat. 4. Bilateral dependent basilar and left lingular atelectatic changes. Heart size is borderline prominent. 5. Otherwise , bowel is intact without obstruction to explain abdominal distention Reyes Guzman MD Abdomen X-Ray 09/10/17 0600 Signed Impressions: Service Date/Time: Sunday, September 10, 2017 03:56 - CONCLUSION: No significant abnormality is identified. There is mild distention of the colon but there are no findings to suggest bowel obstruction or significant ileus. Ignacio Underwood MD Liver Ultrasound 09/07/17 0000 Signed Impressions: Service Date/Time: Thursday, September 07, 2017 12:37 - CONCLUSION: 1. Unremarkable sonographic appearance of the liver. No evidence for hepatic volume loss or intrahepatic ductal dilatation. 2. No sonographic evidence for cholelithiasis or acute cholecystitis. 3. Mild increased right renal echogenicity may reflect medical renal disease. 4. Small bilateral pleural effusions. 5. Pancreas and inferior pole of the right kidney are obscured by bowel gas and therefore not evaluated. Darrell Robles MD Renal Ultrasound 08/31/17 0000 Signed Impressions: Service Date/Time: Thursday, August 31, 2017 17:42 - CONCLUSION: 1. No evidence of hydronephrosis on either side. 2. Solitary linear echogenic focus in the upper pole parenchyma of the right kidney has similar features to prior examination in January 2017 and possibly represents a calcification. David Snell MD Neck CTA 08/28/17 2347 Signed Impressions: Service Date/Time: Tuesday, August 29, 2017 00:13 - CONCLUSION: Negative carotid CTA. David Snell MD Head CTA 08/28/17 2347 Signed Impressions: Service Date/Time: Tuesday, August 29, 2017 00:13 - CONCLUSION: 1. No evidence of vessel truncation or aneurysm. 2. No abnormal vessels in the region of the large left thalamic hemorrhage. David Snell MD Objective Remarks GENERAL: in no apparent distress. Neck; trach in place. CARDIOVASCULAR: Regular rate and irregular rhythm without murmurs, gallops, or rubs. RESPIRATORY: Clear to auscultation. Breath sounds equal bilaterally. No wheezes , rales, or rhonchi. GASTROINTESTINAL: Abdomen soft, non-tender, nondistended. Normal, active bowel sounds-PEG in place. MUSCULOSKELETAL: Extremities without clubbing, cyanosis, or edema. NEURO: awake. Procedures Tracheostomy and PEG placement Medications and IVs Inpatient Medications Acetaminophen (Tylenol) 650 mg Q6H PRN G-TUBE PAIN 1-5 AND/OR FEVER >101F Last administered on 10/15/17at 23:34; Start 09/25/17 at 12:45 Albuterol Sulfate (Albuterol Neb) 2.5 mg Q2HR NEB PRN NEB sob/wheeze Last administered on 10/11/17 17:07; Start 09/25/17 at 13:30 Albuterol/ Ipratropium (Duoneb Neb) 1 ampule Q6HR NEB NEB Last administered on 10/27/17at 10:00; Start 10/23/17 at 16:00; Stop 10/27/17 at 13:18; Status DC Amlodipine Besylate (Norvasc) 10 mg DAILY G-TUBE Last administered on 08:58; Start 09/26/17 at 09:00 Atorvastatin Calcium (Lipitor) 40 mg HS DOBHOFF Last administered on 10/31/17at 21:58; Start 09/25/17 at 21:00 Bisacodyl (Dulcolax Supp) 10 mg DAILY RECTAL Last administered on 08/31/17 11 :58; Start 08/31/17 at 12:00; Stop 09/25/17 at 09:30; Status DC Calcium Acetate (Phoslo) 667 mg TID PO Last administered on 09/08/17 10:38; Start 08/31/17 at 18:00; Stop 09/08/17 at 11:02; Status DC Cefuroxime Axetil (Ceftin) 500 mg Q12HR PO Last administered on 10/03/17 09: 03; Start 09/26/17 at 11:15; Stop 10/03/17 at 11:14; Status DC Chlorhexidine Gluconate (Chlorhexidine 2% Cloth) 3 pack SCREEN REPAIRER CRUSHER PRN TOPICAL SEE LABEL COMMENTS; Start 09/05/17 at 23:00; Stop 09/08/17 at 22:59; Status DC Chlorhexidine Gluconate (Peridex 0.12% Liq) 15 ml TID SWISH-SPIT Last administered on 10/27/17at 09:39; Start 10/11/17 at 18:00 Clonidine (Catapres) 0.3 mg Q8HR G-TUBE Last administered on 11/01/17 04:58; Start 09/25/17 at 14:00 Dantrolene Sodium (Dantrium Inj) 70 mg ONCE ONCE IV Last administered on 03:55; Start 09/13/17 at 03:00; Stop 09/13/17 at 03:01; Status DC Desmopressin Acetate (Ddavp Tae Spr) 1 spray ONCE ONCE EACH NARE Last administered on 09/07/17 15:00; Start 09/07/17 at 15:00; Stop 09/07/17 at 15 :01; Status DC Dexamethasone Sodium Phosphate (Decadron Inj) 6 mg Q12HR IV PUSH Last administered on 09/20/17 09:26; Start 09/17/17 at 21:00; Stop 09/20/17 at 20: 59; Status DC Dexmedetomidine HCl 50 ml @ 29.9 mls/hr TITRATE IV ; Start 08/30/17 at 14:15; Stop 08/30/17 at 14:46; Status DC Dexmedetomidine HCl 1000 mcg/ Sodium Chloride 250 ml @ 29.9 mls/hr TITRATE IV Last administered on 08/30/17 17:58; Start 08/30/17 at 16:45; Stop 08/31/17 at 06:14; Status DC Dexmedetomidine HCl 200 mcg/ Sodium Chloride 50 ml @ 29.9 mls/hr TITRATE IV Last administered on 08/30/17 15:27; Start 08/30/17 at 15:00; Stop 08/30/17 at 16:42; Status DC Dextrose 1,000 ml @ 42 mls/hr [id number] IV Last administered on 09/20/17 09:25 ; Start 09/19/17 at 08:45; Stop 09/20/17 at 11:39; Status DC Dextrose (D50w (Vial) Inj) 25 ml UNSCH PRN IV PUSH HYPOGLYCEMIA-SEE COMMENTS; Start 09/18/17 at 12:00 Diphenhydramine HCl (Benadryl Inj) 25 mg Q6H IV PUSH Last administered on 08:06; Start 09/15/17 at 15:00; Stop 09/18/17 at 14:59; Status DC Etomidate (Amidate Inj) 20 mg ONCE ONCE IVP ; Start 08/29/17 at 00:00; Stop 08/29/17 at 00:01; Status DC Famotidine (Pepcid) 20 mg BID NG Last administered on 10/31/17at 21:58; Start 09/24/17 at 09:30 Fentanyl Citrate 250 ml @ 5 mls/hr TITRATE PRN IV SEDATION Last administered on 09/11/17 06:14; Start 08/29/17 at 00:45; Stop 09/11/17 at 10:20; Status DC Fluticasone Propionate (Flonase Tae Spr) 2 spray DAILY EACH NARE Last administered on 10/27/17 09:41; Start 09/05/17 at 17:00 Gabapentin (Neurontin) 100 mg TID PO Last administered on 10/31/17 18:02; Start 10/26/17 at 13:00 Gelatin (Gelfoam 12 Mm/7 Mm Top) 1 foam Q2HR PRN TOPICAL if still bleeding from peg Last administered on 09/08/17 08:00; Start 09/07/17 at 19:45 Glucagon (Glucagon Inj) 1 mg UNSCH PRN OTHER HYPOGLYCEMIA-SEE COMMENTS; Start 09/25/17 at 09:30 Haloperidol Lactate (Haldol Inj) 5 mg Q4H PRN IV agitation Last administered on 09/12/17 23:04; Start 08/31/17 at 11:00; Stop 09/25/17 at 09:30; Status DC Heparin Sodium (Porcine) (Heparin Inj) 5,000 units Q12HR SQ Last administered on 09/28/17 08:20; Start 09/11/17 at 21:00; Status Future Hold Hydralazine HCl (Apresoline Inj) 10 mg Q30M PRN IV PUSH sbp > 160 Last administered on 09/19/17 09:08; Start 08/30/17 at 08:15 Hydralazine HCl (Apresoline) 100 mg Q8HR G-TUBE Last administered on 11/01/17 04:57; Start 09/25/17 at 14:00 Hydrochlorothiazide (Hydrodiuril) 25 mg DAILY PO Last administered on 10:37; Start 08/29/17 at 09:00; Stop 09/08/17 at 11:02; Status DC Insulin Aspart (NovoLOG SUPPLEMENTAL SCALE) 1 Q6H SQ Last administered on 05:22; Start 09/25/17 at 12:00 Insulin Detemir (Levemir Inj) 18 units Q12H SQ ; Start 10/30/17 at 22:00 Insulin Human Regular (NovoLIN R SUPPLEMENTAL SCALE) 1 Q4HR SQ Last administered on 09/25/17 04:09; Start 09/18/17 at 12:00; Stop 09/25/17 at 09: 28; Status DC Insulin Human Regular (NovoLIN R INJ) See Protocol Table ... SCREEN REPAIRER CRUSHER PRN SQ SEE PROTOCOL TABLE; Start 09/05/17 at 23:00; Stop 09/08/17 at 22:59; Status DC Labetalol HCl (Trandate Inj) 10 mg Q20M PRN IV PUSH SBP>140, DBP>90 Last administered on 09/19/17 02:16; Start 08/29/17 at 00:45 Labetalol HCl (Trandate) 300 mg NOW ONCE PEG Last administered on 09/17/17 04 :23; Start 09/17/17 at 04:15; Stop 09/17/17 at 04:16; Status DC Lactated Ringer's 1,000 ml @ 30 mls/hr Q24H PRN IV SEE LABEL COMMENTS; Start 09/05/17 at 23:00; Stop 09/08/17 at 22:59; Status DC Lactulose (Lactulose Liq) 30 ml BID PO Last administered on 09/04/17 19:57; Start 08/31/17 at 12:00; Stop 09/25/17 at 09:30; Status DC Lidocaine HCl (Lidocaine Pf 2% Neb) 1 ml Q6HR NEB PRN NEB cough/bronchial irritation; Start 09/16/17 at 11:30 Lisinopril (Prinivil) 40 mg DAILY PO Last administered on 09/04/17 09:07; Start 08/29/17 at 09:00; Stop 09/04/17 at 12:18; Status DC Lorazepam (Ativan Inj) 1 mg ONCE ONCE IV PUSH Last administered on 09/13/17 02:57; Start 09/13/17 at 02:45; Stop 09/13/17 at 02:46; Status DC Lorazepam (Ativan) 1 mg Q12H PO Last administered on 09/09/17 20:27; Start 09/07/17 at 19:00; Stop 09/11/17 at 10:25; Status DC Magnesium Hydroxide (Milk Of Magnesia Liq) 30 ml Q12H PRN PO Mild constipation ; Start 08/29/17 at 00:45; Stop 08/31/17 at 11:08; Status DC Magnesium Citrate (Citroma Liq) 300 ml ONCE ONCE PO Last administered on 08/31 11:57; Start 08/31/17 at 12:00; Stop 08/31/17 at 12:01; Status DC Magnesium Oxide (Mag-Ox) 800 mg UNSCH PRN PO For Magnesium 1.2 - 1.6 mg/dL; Start 08/30/17 at 08:15; Stop 08/31/17 at 13:02; Status DC Magnesium Sulfate 2 gm/Sodium Chloride 100 ml @ 50 mls/hr UNSCH PRN IV For Magnesium 1.2 - 1.6 mg/dL; Start 08/30/17 at 08:15; Stop 08/31/17 at 13:02; Status DC Magnesium Sulfate 4 gm/Sodium Chloride 100 ml @ 50 mls/hr UNSCH PRN IV For Magnesium 0.9 - 1.1 mg/dL; Start 08/30/17 at 08:15; Stop 08/31/17 at 13:02; Status DC Magnesium Sulfate/ Dextrose 100 ml @ 100 mls/hr Q1H IV Last administered on 12:22; Start 08/31/17 at 12:00; Stop 08/31/17 at 13:00; Status DC Methylprednisolone Sodium Succinate (SoluMEDROL INJ) 125 mg ONCE ONCE IV PUSH Last administered on 10/20/17at 13:09; Start 10/20/17 at 12:15; Stop 10/20/17 at 12:16; Status DC Metoclopramide HCl (Reglan Inj) 5 mg Q8HR IV PUSH Last administered on 22:55; Start 09/09/17 at 22:00; Stop 09/11/17 at 10:25; Status DC Metoprolol Tartrate (Lopressor) 25 mg Q8H G-TUBE ; Start 09/25/17 at 13:00; Stop 09/25/17 at 13:00; Status DC Midazolam HCl (Versed Inj) 10 mg ONCE ONCE IV PUSH ; Start 09/08/17 at 13:00; Stop 09/08/17 at 13:41; Status DC Miscellaneous Information 1 [id number] Last administered on 08/29/17 01:00; Start 08/29/17 at 00:45; Stop 10/24/17 at 04:26; Status DC Modafinil (Provigil) 200 mg DAILY PO Last administered on 09/12/17 09:07; Start 09/11/17 at 12:00; Stop 09/25/17 at 09:30; Status DC Morphine Sulfate (Morphine Inj) 2 mg Q2H PRN IV PUSH breakthru pain Last administered on 10/24/17 20:42; Start 09/24/17 at 16:30 Nicardipine HCl 25 mg/Sodium Chloride 250 ml @ 50 mls/hr TITRATE PRN IV Blood pressure management Last administered on 09/17/17 04:57; Start 09/13/17 at 02: 45; Stop 09/17/17 at 12:47; Status DC Nicardipine HCl 50 mg/Sodium Chloride 500 ml @ 50 mls/hr TITRATE PRN IV BLOOD PRESSURE MANAGEMENT Last administered on 09/05/17 22:00; Start 09/02/17 at 21 :15; Stop 09/11/17 at 10:25; Status DC Ondansetron HCl (Zofran Inj) 4 mg Q6H PRN IV PUSH NAUSEA OR VOMITING Last administered on 09/11/17 14:18; Start 08/29/17 at 00:45 Oxycodone HCl (Roxicodone Intensol Liq) 5 mg Q6H PRN G-TUBE pain 6-10 Last administered on 11/01/17 05:34; Start 09/25/17 at 15:00 Pantoprazole Sodium (Protonix Inj) 40 mg DAILY IV PUSH Last administered on 09:15; Start 08/29/17 at 09:00; Stop 09/11/17 at 10:25; Status DC Pharmacy Profile Note 0 ml @ 0 mls/hr UNSCH OTHER ; Start 09/13/17 at 02:45; Stop 09/17/17 at 10:11; Status DC Piperacillin Sod/ Tazobactam Sod 50 ml @ 100 mls/hr Q6H IV Last administered on 09/19/17 20:26; Start 09/13/17 at 03:00; Stop 09/19/17 at 23:00; Status DC Polyethylene Glycol (Miralax) 17 gm BID G-TUBE Last administered on 10/27/17 09:41; Start 09/25/17 at 21:00 Potassium Chloride 30 meq/ Sodium Chloride 115 ml @ 38.333 mls/ hr ONCE ONCE IV-CENTRAL Last administered on 09/03/17 13:36; Start 09/03/17 at 14:00; Stop 09/03/17 at 16:59; Status DC Potassium Phosphate (K-Phos) 2,000 mg UNSCH PRN PO/TUBE SEE LABEL COMMENTS; Start 08/30/17 at 08:15; Stop 08/31/17 at 13:02; Status DC Potassium Phosphate 30 mmol/ Sodium Chloride 260 ml @ 42 mls/hr UNSCH PRN IV SEE LABEL COMMENTS; Start 08/30/17 at 08:15; Stop 08/31/17 at 13:02; Status DC Potassium Bicarb/ Potassium Chloride (K-Lyte Cl Eff) 50 meq ONCE ONCE PO Last administered on 09/25/17 05:25; Start 09/25/17 at 04:30; Stop 09/25/17 at 04:31; Status DC Potassium Chloride 100 ml @ 50 mls/hr Q2H IV Last administered on 09/15/17 10 :22; Start 09/15/17 at 08:15; Stop 09/15/17 at 12:14; Status DC Potassium Chloride (KCl Powder) 40 meq ONCE ONCE PEG Last administered on 12:15; Start 09/08/17 at 12:15; Stop 09/08/17 at 12:21; Status DC Potassium Chloride (KCl) 40 meq ONCE ONCE PO ; Start 09/08/17 at 09:00; Stop 09/08/17 at 12:05; Status DC Povidone Iodine (Betadine 5% Antisepsis Kit) 1 applic SCREEN REPAIRER CRUSHER PRN EACH NARE SEE LABEL COMMENTS; Start 09/05/17 at 23:00; Stop 09/08/17 at 22:59; Status DC Propofol 100 ml @ 14.352 mls/ hr TITRATE PRN IV SEDATION Last administered on 09/10/17 09:59; Start 08/31/17 at 00:30; Stop 09/11/17 at 10:20; Status DC Propranolol HCl (Inderal) 40 mg Q6HR G-TUBE Last administered on 11/01/17 04: 57; Start 09/25/17 at 12:00 Quetiapine Fumarate (SEROquel) 50 mg Q8HR G-TUBE Last administered on 04:57; Start 09/25/17 at 14:00 Rocuronium [place] (Zemuron Inj) 100 mg BOLUS ONCE IV ; Start 09/08/17 at 13: 00; Stop 09/08/17 at 13:44; Status DC Senna/Docusate Sodium (Melina-Colace) 1 tab BID G-TUBE Last administered on at 09:39; Start 09/25/17 at 21:00 Sennosides (Senokot) 17.2 mg Q12H PRN PO Moderate constipation; Start at 00:45; Stop 08/31/17 at 11:08; Status DC Silver Nitrate/ Potassium Nitrate (Silver Nitrate Applicators) 1 appl ONCE ONCE TOPICAL Last administered on 09/07/17 10:15; Start 09/07/17 at 10:15; Stop 09/07/17 at 10:47; Status DC Sodium Polystyrene Sulfonate (Kayexalate Liq) 30 gm Q2HR PO Last administered on 09/21/17 19:53; Start 09/21/17 at 16:00; Stop 09/21/17 at 21:00; Status DC Sodium Chloride 250 ml @ 15 mls/hr ONCE ONCE IV ; Start 09/28/17 at 10:15; Stop 09/28/17 at 16:53; Status DC Sodium Chloride (NS Flush) 2 ml UNSCH PRN IVF FLUSH AFTER USING IV ACCESS Last administered on 10/24/17at 20:44; Start 08/29/17 at 00:00 Sodium Chloride 38.5 meq/Sterile Water 1,009.625 ml @ 42 mls/hr Q24H IV Last administered on 09/25/17 06:01; Start 09/20/17 at 13:00; Stop 09/25/17 at 09 :24; Status DC Sodium Phosphate 30 mmol/Sodium Chloride 250 ml @ 42 mls/hr UNSCH PRN IV For Phosphorus < 2.5 mg/dL; Start 08/30/17 at 08:15; Stop 08/31/17 at 13:02; Status DC Succinylcholine Chloride (Quelicin Inj) 100 mg ONCE ONCE IV PUSH ; Start 08/29 at 00:00; Stop 08/29/17 at 00:01; Status DC Vancomycin HCl 1500 mg/Sodium Chloride 515 ml @ 257.5 mls/ hr ONCE ONCE IV Last administered on 09/16/17 17:07; Start 09/16/17 at 15:00; Stop 09/16/17 at 16:59; Status DC Vancomycin HCl 2000 mg/Sodium Chloride 520 ml @ 250 mls/hr ONCE ONCE IV Last administered on 09/13/17 05:52; Start 09/13/17 at 04:00; Stop 09/13/17 at 06:04 ; Status DC Vancomycin HCl 2500 mg/Sodium Chloride 525 ml @ 250 mls/hr ONCE ONCE IV Last administered on 09/14/17 12:29; Start 09/14/17 at 12:00; Stop 09/14/17 at 14:05 ; Status DC Water (Free Water) 300 ml Q4HR G-TUBE Last administered on 11/01/17at 04:00; Start 09/18/17 at 12:00 A/P Problem List: (1) Intracranial hemorrhage ICD Code: I62.9 - Nontraumatic intracranial hemorrhage, unspecified Status: Acute Assessment and Plan A/P Acute encephalopathy - improving. Left Thalamic Hemorrhage Intracerebral Hemorrhage - Repeat CT of the head showed improving bleed - Neurosurgery follow-up appreciated; stable for dc to SNF per neurosurgery. - Continue rehabilitation efforts with PT, OT, speech - On Seroquel to control agitated delirium. Roxicodone as needed for pain Anemia likely due to chronic disease. H/H fairly stable. will monitor periodically. Healthcare associated pneumonia finished the course of antibiotic. UTI: treated. Respiratory failure s/p trach - continue neb treatment. -Patient had angioedema, source unclear and was seen by ENT. He was treated with steroids. Per ENT, expect slow improvement. This is resolving. -Appreciate pulmonology following for trach management Respiratory failure s/p trach -pulmonary following. Hyperglycemia - - decreased Levemir to 18 units SQ q12h - Continue sliding scale insulin with Accu-Cheks. - hemoglobin A1c 9.1. Hypertension - Intermittent hypertension now well controlled - Continue clonidine, amlodipine and propranolol - Continue hydralazine. Nutrition status: - Status post PEG tube - -on diet now per ST. Acute kidney injury, most likely has CKD per nephrology: Renal function stabilized. - monitor renal function periodically. fever/ leukocytosis- now better- will monitor for now. Physical deconditioning/right sided hemiparesis - OOB to stretcher chair daily - PT/OT following AND SPEECH PROPH: - SCD's. Pepcid for GI prophylaxis Discharge Planning dc to [facility]. see med list. f/u; pcp. d/w the patient and RN. previously d/w the case management. time spent 35 min. Zoë Rivas MD Nov 01, 2017 10:21
[2017-11-01] MEDS ORDERED: LEVEMIR SQ (10:22)
--- NOTE | 2017-11-01 10:23 | HHI.DS ---
Discharge Summary Admission Date Aug 29, 2017 at 00:27 Discharge Date: Nov 01, 2017 Admitting Diagnosis Hemorrhage Stroke, Hypertensive Crisis (1) Intracranial hemorrhage ICD Code: I62.9 - Nontraumatic intracranial hemorrhage, unspecified Diagnosis: Principal Status: Acute Procedures Tracheostomy and PEG placement Brief History - From Admission 46 y/o man with longstanding hypertension and previous CVA presents obtunded with new neurological symptoms noticed prior to arrival. Timeline unclear. Required intubation in ED for airway protection. CT head shows left thalamic bleed and shift away from bleed. Toxicology screen pending. CBC/BMP: 11/01/17 0811 10/31/17 0340 Significant Findings Laboratory Tests Test 10/31/17 03:40 11/01/17 08:11 11/01/17 10:05 White Blood Count 16.4 TH/MM3 (4.0-11.0) 11.2 TH/MM3 (4.0-11.0) Red Blood Count 3.76 MIL/MM3 (4.50-5.90) 3.58 MIL/MM3 (4.50-5.90) Hemoglobin 9.5 GM/DL (13.0-17.0) 9.0 GM/DL (13.0-17.0) Hematocrit 30.4 % (39.0-51.0) 28.6 % (39.0-51.0) Mean Corpuscular Hemoglobin 25.3 PG (27.0-34.0) 25.1 PG (27.0-34.0) Mean Corpuscular Hemoglobin Concent 31.3 % (32.0-36.0) 31.5 % (32.0-36.0) Neutrophils (%) (Auto) 86.2 % (16.0-70.0) 83.3 % (16.0-70.0) Lymphocytes (%) (Auto) 6.0 % (9.0-44.0) 6.9 % (9.0-44.0) Neutrophils # (Auto) 14.1 TH/MM3 (1.8-7.7) 9.4 TH/MM3 (1.8-7.7) Monocytes # (Auto) 1.0 TH/MM3 (0-0.9) Random Glucose 108 MG/DL (74-106) Mean Corpuscular Volume 79.8 FL (80.0-100.0) Monocytes (%) (Auto) 8.2 % (0.0-8.0) Lymphocytes # (Auto) 0.8 TH/MM3 (1.0-4.8) Imaging Last Impressions Chest X-Ray 10/31/17 0000 Signed Impressions: Service Date/Time: Tuesday, October 31, 2017 13:18 - CONCLUSION: Possible mild CHF. Norma Malik MD Head CT 10/27/17 1001 Signed Impressions: Service Date/Time: Friday, October 27, 2017 10:55 - CONCLUSION: 1. Small area of encephalomalacia in the left basal ganglia corresponding to the area of hemorrhage seen on the previous exam. No new areas of hemorrhage are seen. No significant mass effect is identified. Ant Reece MD Maxillofacial CT 09/16/17 0000 Signed Impressions: Service Date/Time: September 01:03 - CONCLUSION: 1. Evidence of acute pansinusitis. 2. Opacification of multiple bilateral mastoid air cells most characteristic of mastoiditis. 3. Mildly prominent cervical chain nodes which may be reactive. Angelo Conn MD Upper Extremity Ultrasound 09/15/17 0000 Signed Impressions: Service Date/Time: Friday, September 15, 2017 17:14 - CONCLUSION: Occlusive thrombus within the left cephalic vein and nonocclusive thrombus within the right cephalic vein. Ric Jack MD Lower Extremity Ultrasound 09/15/17 0000 Signed Impressions: Service Date/Time: Friday, September 15, 2017 16:58 - CONCLUSION: No evidence of DVT within the lower extremities. Ric Jack MD Chest CT 09/13/17 0000 Signed Impressions: Service Date/Time: Wednesday, September 13, 2017 09:28 - CONCLUSION: 1. Bibasilar and left lingular dependent atelectatic changes. Lungs are otherwise clear. 2. Tracheostomy tube with the tip probably positioned above the connie. 3. Compensated cardiomegaly. Reyes Guzman MD Abdomen/Pelvis CT 09/13/17 0000 Signed Impressions: Service Date/Time: Wednesday, September 13, 2017 09:28 - CONCLUSION: 1. There is some stranding in the retroperitoneal perivascular tissues around the distal aorta extending into the bifurcation with a regional borderline lymph nodes. Findings are characteristic of a nonspecific inflammatory process. Findings could represent early retroperitoneal fibrosis.. 2. Urinary bladder is decompressed with some mural thickening in pericystic inflammatory changes possibly representing a chronic cystitis. Nondependent air could be associated with a recent catheterization/instrumentation. 3. Small umbilical and right inguinal hernias only contain fat. 4. Bilateral dependent basilar and left lingular atelectatic changes. Heart size is borderline prominent. 5. Otherwise , bowel is intact without obstruction to explain abdominal distention Reyes Guzman MD Abdomen X-Ray 09/10/17 0600 Signed Impressions: Service Date/Time: Sunday, September 10, 2017 03:56 - CONCLUSION: No significant abnormality is identified. There is mild distention of the colon but there are no findings to suggest bowel obstruction or significant ileus. Ignacio Underwood MD Liver Ultrasound 09/07/17 0000 Signed Impressions: Service Date/Time: Thursday, September 07, 2017 12:37 - CONCLUSION: 1. Unremarkable sonographic appearance of the liver. No evidence for hepatic volume loss or intrahepatic ductal dilatation. 2. No sonographic evidence for cholelithiasis or acute cholecystitis. 3. Mild increased right renal echogenicity may reflect medical renal disease. 4. Small bilateral pleural effusions. 5. Pancreas and inferior pole of the right kidney are obscured by bowel gas and therefore not evaluated. Darrell Robles MD Renal Ultrasound 08/31/17 0000 Signed Impressions: Service Date/Time: Thursday, August 31, 2017 17:42 - CONCLUSION: 1. No evidence of hydronephrosis on either side. 2. Solitary linear echogenic focus in the upper pole parenchyma of the right kidney has similar features to prior examination in January 2017 and possibly represents a calcification. Davdi Snell MD Neck CTA [id number] Signed Impressions: Service Date/Time: Tuesday, August 29, 2017 00:13 - CONCLUSION: Negative carotid CTA. David Snell MD Head CTA [id number] Signed Impressions: Service Date/Time: Tuesday, August 29, 2017 00:13 - CONCLUSION: 1. No evidence of vessel truncation or aneurysm. 2. No abnormal vessels in the region of the large left thalamic hemorrhage. David Snell MD PE at Discharge GENERAL: Awake and alert moves left side- LESS flaccid on the right side - MOVING SOME-has tracheostomy in place and PEG tube in place SKIN: Warm and dry. HEAD: Atraumatic. Normocephalic. EYES: Pupils equal and round. No scleral icterus. No injection or drainage. ENT: No nasal bleeding or discharge. Mucous membranes pink and moist. NECK: Trachea midline. No JVD. Tracheostomy in place WITH PASSY DIANA VALVE IN PLACE NOW CARDIOVASCULAR: Regular rate and rhythm. S1 and S2 no S3 or S4 RESPIRATORY: No accessory muscle use.. Breath sounds equal bilaterally. Coarse breath sounds bilaterally GASTROINTESTINAL: Abdomen soft, non-tender, nondistended. Hepatic and splenic margins not palpable. PEG tube CONDOM CATHETER IN PLACE MUSCULOSKELETAL: Extremities without clubbing, cyanosis, or edema. No obvious deformities. Right side flaccid moves left side NEUROLOGICAL: Awake and alert. No obvious cranial nerve deficits. Motor grossly within normal limits. Five out of 5 muscle strength in the left arms and legs--LESS flaccid on the right- NO MOVING SOME. USING PASSY DIANA VALVE NOW PSYCHIATRIC: Appropriate mood and affect; insight and judgment BETTER- HAS PASSY DIANA VALVE CAN COMMUNICATE BETTER Hospital Course Acute encephalopathy - improving. Left Thalamic Hemorrhage Intracerebral Hemorrhage - Repeat CT of the head showed improving bleed - Neurosurgery follow-up appreciated; stable for dc to SNF per neurosurgery. - Continue rehabilitation efforts with PT, OT, speech - On Seroquel to control agitated delirium. Roxicodone as needed for pain Anemia likely due to chronic disease. H/H fairly stable. will monitor periodically. Healthcare associated pneumonia finished the course of antibiotic. UTI: treated. Respiratory failure s/p trach - continue neb treatment. -Patient had angioedema, source unclear and was seen by ENT. He was treated with steroids. Per ENT, expect slow improvement. This is resolving. -Appreciate pulmonology following for trach management Respiratory failure s/p trach -pulmonary following. Hyperglycemia - - decreased Levemir to 18 units SQ q12h - Continue sliding scale insulin with Accu-Cheks. - hemoglobin A1c 9.1. Hypertension - Intermittent hypertension now well controlled - Continue clonidine, amlodipine and propranolol - Continue hydralazine. Nutrition status: - Status post PEG tube - -on diet now per ST. Acute kidney injury, most likely has CKD per nephrology: Renal function stabilized. - monitor renal function periodically. fever/ leukocytosis- now better- will monitor for now. Physical deconditioning/right sided hemiparesis - OOB to stretcher chair daily - PT/OT following AND SPEECH PROPH: - SCD's. Pepcid for GI prophylaxis Pt Condition on Discharge: Fair Discharge Disposition: Rehab Inpatient Discharge Time: > 30 minutes Discharge Instructions DIET: Follow Instructions for: Heart Healthy Diet, Diabetic Diet Speech Therapy-Diet Recommends: Other Activities you can perform: Regular-No Restrictions Zoë Rivas MD Nov 01, 2017 10:23
[2017-11-01 10:45] LABS: BACTERIA, URINE RARE /hpf; BLOOD, URINE NEG (NEG); GLUCOSE,URINE NEG (NEG); HYALINE CAST, URINE 12 /lpf (RARE); KETONE, URINE 80 mg/dL (NEG); MUCUS URINE FEW /lpf (OCC); NITRITE,URINE NEG (NEG); PH, URINE 5.5 (5.0-8.5); SPERM, URINE RARE; SQUAMOUS EPITHELIAL CELL URINE <1 /hpf (0-5); URINE COLOR YELLOW (YELLW/STRAW); URINE LEUKOCYTE ESTERASE LARGE (NEG)
[2017-11-01 10:52] LABS: BILIRUBIN, URINE NEG (NEG)
[2017-11-01] MEDS ORDERED: MORPHINE SULFATE 2 MG/ML INJ IM PRN (13:00)
--- NOTE | 2017-11-01 19:56 | HHI.PR ---
Subjective Remarks Patient is lying in bed in NAD. Afebrile. Has fenestrated trach Able to talk On RA Tolerates PO Trach capped, tolerates well Objective Vital Signs Vital Signs Date Time Temp Pulse Resp B/P (MAP) Pulse Ox O2 Delivery O2 Flow Rate FiO2 11/01/17 16:00 90 11/01/17 16:00 99.6 89 20 148/82 (104) 93 11/01/17 12:00 97 11/01/17 12:00 100.0 97 20 143/76 (98) 96 11/01/17 08:00 93 11/01/17 08:00 99.7 96 20 161/86 (111) 95 11/01/17 07:00 Room Air 11/01/17 04:00 99.6 97 18 155/83 (107) 96 11/01/17 00:00 98.7 98 20 148/80 (102) 96 10/31/17 22:00 Room Air Trach Collar T-Piece 10/31/17 20:00 94 10/31/17 20:00 98.9 101 20 152/81 (104) 94 I/O 10/31/17 10/31/17 10/31/17 11/01/17 11/01/17 11/01/17 06:59 14:59 22:59 06:59 14:59 22:59 Intake Total 280 ml 240 ml 240 ml Output Total 500 ml 300 ml 800 ml 500 ml Balance -220 ml -60 ml -800 ml -260 ml Intake Oral 280 ml 240 ml 240 ml Output Urine Total 500 ml 300 ml 800 ml 500 ml Bladder Scan Volume Amount 30 ml # Voids 2 # Bowel Movements 0 Result Diagram: 11/01/17 0811 10/31/17 0340 Objective Remarks GENERAL: Patient is lying in bed in NAD SKIN: Warm and dry. HEAD: Normocephalic. EYES: No scleral icterus. No injection or drainage. NECK: Supple, trachea midline. No JVD or lymphadenopathy. CARDIOVASCULAR: Regular rate and rhythm without murmurs, gallops, or rubs. RESPIRATORY: Breath sounds equal bilaterally. No accessory muscle use. GASTROINTESTINAL: Abdomen soft, non-tender, nondistended. MUSCULOSKELETAL: No cyanosis, or edema. BACK: Nontender without obvious deformity. No CVA tenderness. Neuro: Awake and alert A/P Assessment and Plan Resp failure S/P Trach HTN s/p ICH, right side flaccid Pneumonia PLAN Continue with oxygen keep sat >92% Bronchodilators Pulm toilet, trach care Continue treatment plan. capp trach will FU in Jesus Villar MD Nov 01, 2017 19:56
[2017-11-01] MEDS: ATORVASTATIN 40 MG TAB DOBHOFF SCH (22:42)
[2017-11-02] VITALS (10 sets, daily range): BP systolic 128–166; BP diastolic 71–101; PULSE 87–98; RESP 16–20; TEMP 97.6–99.9; O2SAT 92–96
[2017-11-02] MEDS: PROPRANOLOL HCL 40 MG TAB G-TUBE SCH ×5 (01:06→23:28)
[2017-11-02] MEDS: oxyCODONE HCL ORAL CONC 5 MG/0.25 ML SYRINGE G-TUBE PRN ×3 (01:08→09:47)
[2017-11-02] MEDS: FREE WATER G-TUBE SCH ×6 (04:00→20:00)
[2017-11-02] MEDS: INSULIN ASPART SUPPLEMENTAL SCALE SQ SCH ×5 (06:00→23:28)
[2017-11-02] MEDS: cloNIDine HCL 0.3 MG TAB G-TUBE SCH ×3 (06:37→21:12)
[2017-11-02] MEDS: QUEtiapine FUMARATE 25 MG TAB G-TUBE SCH ×3 (06:38→21:12)
[2017-11-02] MEDS: hydrALAZINE HCL 100 MG TAB G-TUBE SCH ×3 (06:38→21:12)
[2017-11-02] MEDS: FLUTICASONE PROPIONATE 50 MCG/ACT 16 GM NASAL SPRAY EACH NARE SCH (09:00)
[2017-11-02] MEDS: DOCUSATE SODIUM 50 MG/SENNA 8.6 MG TAB G-TUBE SCH ×2 (09:00→21:12)
[2017-11-02] MEDS: CHLORHEXIDINE GLUCONATE 0.12% 15 ML CUP SWISH-SPIT SCH ×3 (09:00→17:51)
[2017-11-02] MEDS: POLYETHYLENE GLYCOL 17 GM PKG G-TUBE SCH ×2 (09:00→21:00)
[2017-11-02] MEDS: GABAPENTIN 100 MG CAP PO SCH ×3 (09:46→17:51)
[2017-11-02] MEDS: FAMOTIDINE 20 MG TAB NG SCH ×2 (09:46→21:12)
[2017-11-02] MEDS: INSULIN DETEMIR 100 UNITS/ML VIAL SQ SCH ×2 (09:52→23:28)
--- NOTE | 2017-11-02 11:45 | HHI.PR ---
Subjective Remarks in no acute distress. still with some pain to the right leg. no other new complaints. Objective Vitals Vital Signs Date Time Temp Pulse Resp B/P (MAP) Pulse Ox O2 Delivery O2 Flow Rate FiO2 11/02/17 08:00 90 11/02/17 08:00 98.5 91 16 128/71 (90) 96 11/02/17 07:00 Room Air 11/02/17 04:00 99.3 91 20 133/87 (102) 95 11/02/17 04:00 Nasal Cannula 3.00 Humidified 11/02/17 03:47 94 11/02/17 00:00 Nasal Cannula 3.00 Humidified 11/02/17 00:00 99.9 97 20 152/84 (106) 95 11/01/17 23:44 98 11/01/17 22:13 94 Nasal Cannula 3.00 11/01/17 20:00 99.5 91 20 133/87 (102) 98 11/01/17 19:45 89 11/01/17 16:00 90 11/01/17 16:00 99.6 89 20 148/82 (104) 93 11/01/17 12:00 97 11/01/17 12:00 100.0 97 20 143/76 (98) 96 I/O 11/01/17 11/01/17 11/01/17 11/02/17 11/02/17 11/02/17 07:00 15:00 23:00 07:00 15:00 23:00 Intake Total 240 ml 710 ml Output Total 800 ml 500 ml 850 ml Balance -800 ml -260 ml -140 ml Intake Oral 240 ml 710 ml Output Urine Total 800 ml 500 ml 850 ml Bladder Scan Volume Amount 30 ml # Bowel Movements 0 Result Diagram: 11/01/17 0811 10/31/17 0340 Imaging Last Impressions Chest X-Ray 10/31/17 0000 Signed Impressions: Service Date/Time: Tuesday, October 31, 2017 13:18 - CONCLUSION: Possible mild CHF. K. Luigi Malik MD Head CT 10/27/17 1001 Signed Impressions: Service Date/Time: Friday, October 27, 2017 10:55 - CONCLUSION: 1. Small area of encephalomalacia in the left basal ganglia corresponding to the area of hemorrhage seen on the previous exam. No new areas of hemorrhage are seen. No significant mass effect is identified. Ant Reece MD Maxillofacial CT 09/16/17 0000 Signed Impressions: Service Date/Time: September 01:03 - CONCLUSION: 1. Evidence of acute pansinusitis. 2. Opacification of multiple bilateral mastoid air cells most characteristic of mastoiditis. 3. Mildly prominent cervical chain nodes which may be reactive. Angelo Conn MD Upper Extremity Ultrasound 09/15/17 0000 Signed Impressions: Service Date/Time: Friday, September 15, 2017 17:14 - CONCLUSION: Occlusive thrombus within the left cephalic vein and nonocclusive thrombus within the right cephalic vein. Ric Jack MD Lower Extremity Ultrasound 09/15/17 0000 Signed Impressions: Service Date/Time: Friday, September 15, 2017 16:58 - CONCLUSION: No evidence of DVT within the lower extremities. Ric Jack MD Chest CT 09/13/17 0000 Signed Impressions: Service Date/Time: Wednesday, September 13, 2017 09:28 - CONCLUSION: 1. Bibasilar and left lingular dependent atelectatic changes. Lungs are otherwise clear. 2. Tracheostomy tube with the tip probably positioned above the connie. 3. Compensated cardiomegaly. Reyes Guzman MD Abdomen/Pelvis CT 09/13/17 0000 Signed Impressions: Service Date/Time: Wednesday, September 13, 2017 09:28 - CONCLUSION: 1. There is some stranding in the retroperitoneal perivascular tissues around the distal aorta extending into the bifurcation with a regional borderline lymph nodes. Findings are characteristic of a nonspecific inflammatory process. Findings could represent early retroperitoneal fibrosis.. 2. Urinary bladder is decompressed with some mural thickening in pericystic inflammatory changes possibly representing a chronic cystitis. Nondependent air could be associated with a recent catheterization/instrumentation. 3. Small umbilical and right inguinal hernias only contain fat. 4. Bilateral dependent basilar and left lingular atelectatic changes. Heart size is borderline prominent. 5. Otherwise , bowel is intact without obstruction to explain abdominal distention Reyes Guzman MD Abdomen X-Ray 09/10/17 0600 Signed Impressions: Service Date/Time: Sunday, September 10, 2017 03:56 - CONCLUSION: No significant abnormality is identified. There is mild distention of the colon but there are no findings to suggest bowel obstruction or significant ileus. Ignacio Underwood MD Liver Ultrasound 09/07/17 0000 Signed Impressions: Service Date/Time: Thursday, September 07, 2017 12:37 - CONCLUSION: 1. Unremarkable sonographic appearance of the liver. No evidence for hepatic volume loss or intrahepatic ductal dilatation. 2. No sonographic evidence for cholelithiasis or acute cholecystitis. 3. Mild increased right renal echogenicity may reflect medical renal disease. 4. Small bilateral pleural effusions. 5. Pancreas and inferior pole of the right kidney are obscured by bowel gas and therefore not evaluated. Darrell Robles MD Renal Ultrasound 08/31/17 0000 Signed Impressions: Service Date/Time: Thursday, August 31, 2017 17:42 - CONCLUSION: 1. No evidence of hydronephrosis on either side. 2. Solitary linear echogenic focus in the upper pole parenchyma of the right kidney has similar features to prior examination in January 2017 and possibly represents a calcification. David Snell MD Neck CTA 08/28/17 2347 Signed Impressions: Service Date/Time: Tuesday, August 29, 2017 00:13 - CONCLUSION: Negative carotid CTA. David Snell MD Head CTA 08/28/17 2347 Signed Impressions: Service Date/Time: Tuesday, August 29, 2017 00:13 - CONCLUSION: 1. No evidence of vessel truncation or aneurysm. 2. No abnormal vessels in the region of the large left thalamic hemorrhage. David Snell MD Objective Remarks GENERAL: in no apparent distress. Neck; trach in place. CARDIOVASCULAR: Regular rate and irregular rhythm without murmurs, gallops, or rubs. RESPIRATORY: Clear to auscultation. Breath sounds equal bilaterally. No wheezes , rales, or rhonchi. GASTROINTESTINAL: Abdomen soft, non-tender, nondistended. Normal, active bowel sounds-PEG in place. MUSCULOSKELETAL: Extremities without clubbing, cyanosis, or edema. NEURO: awake. Procedures Tracheostomy and PEG placement Medications and IVs Inpatient Medications Acetaminophen (Tylenol) 650 mg Q6H PRN G-TUBE PAIN 1-5 AND/OR FEVER >101F Last administered on 10/15/17at 23:34; Start 09/25/17 at 12:45 Albuterol Sulfate (Albuterol Neb) 2.5 mg Q2HR NEB PRN NEB sob/wheeze Last administered on 10/11/17 17:07; Start 09/25/17 at 13:30 Albuterol/ Ipratropium (Duoneb Neb) 1 ampule Q6HR NEB NEB Last administered on 10/27/17at 10:00; Start 10/23/17 at 16:00; Stop 10/27/17 at 13:18; Status DC Amlodipine Besylate (Norvasc) 10 mg DAILY G-TUBE Last administered on 09:47; Start 09/26/17 at 09:00 Atorvastatin Calcium (Lipitor) 40 mg HS DOBHOFF Last administered on 11/01/17 22:42; Start 09/25/17 at 21:00 Bisacodyl (Dulcolax Supp) 10 mg DAILY RECTAL Last administered on 08/31/17 11 :58; Start 08/31/17 at 12:00; Stop 09/25/17 at 09:30; Status DC Calcium Acetate (Phoslo) 667 mg TID PO Last administered on 09/08/17 10:38; Start 08/31/17 at 18:00; Stop 09/08/17 at 11:02; Status DC Cefuroxime Axetil (Ceftin) 500 mg Q12HR PO Last administered on 10/03/17 09: 03; Start 09/26/17 at 11:15; Stop 10/03/17 at 11:14; Status DC Chlorhexidine Gluconate (Chlorhexidine 2% Cloth) 3 pack DIRECTOR OF INFECTION CONTROL PRN TOPICAL SEE LABEL COMMENTS; Start 09/05/17 at 23:00; Stop 09/08/17 at 22:59; Status DC Chlorhexidine Gluconate (Peridex 0.12% Liq) 15 ml TID SWISH-SPIT Last administered on 11/01/17at 17:46; Start 10/11/17 at 18:00 Clonidine (Catapres) 0.3 mg Q8HR G-TUBE Last administered on 11/02/17 06:37; Start 09/25/17 at 14:00 Dantrolene Sodium (Dantrium Inj) 70 mg ONCE ONCE IV Last administered on 03:55; Start 09/13/17 at 03:00; Stop 09/13/17 at 03:01; Status DC Desmopressin Acetate (Ddavp Tae Spr) 1 spray ONCE ONCE EACH NARE Last administered on 09/07/17 15:00; Start 09/07/17 at 15:00; Stop 09/07/17 at 15 :01; Status DC Dexamethasone Sodium Phosphate (Decadron Inj) 6 mg Q12HR IV PUSH Last administered on 09/20/17 09:26; Start 09/17/17 at 21:00; Stop 09/20/17 at 20: 59; Status DC Dexmedetomidine HCl 50 ml @ 29.9 mls/hr TITRATE IV ; Start 08/30/17 at 14:15; Stop 08/30/17 at 14:46; Status DC Dexmedetomidine HCl 1000 mcg/ Sodium Chloride 250 ml @ 29.9 mls/hr TITRATE IV Last administered on 08/30/17 17:58; Start 08/30/17 at 16:45; Stop 08/31/17 at 06:14; Status DC Dexmedetomidine HCl 200 mcg/ Sodium Chloride 50 ml @ 29.9 mls/hr TITRATE IV Last administered on 08/30/17 15:27; Start 08/30/17 at 15:00; Stop 08/30/17 at 16:42; Status DC Dextrose 1,000 ml @ 42 mls/hr [id number] IV Last administered on 09/20/17 09:25 ; Start 09/19/17 at 08:45; Stop 09/20/17 at 11:39; Status DC Dextrose (D50w (Vial) Inj) 25 ml UNSCH PRN IV PUSH HYPOGLYCEMIA-SEE COMMENTS; Start 09/18/17 at 12:00 Diphenhydramine HCl (Benadryl Inj) 25 mg Q6H IV PUSH Last administered on 08:06; Start 09/15/17 at 15:00; Stop 09/18/17 at 14:59; Status DC Etomidate (Amidate Inj) 20 mg ONCE ONCE IVP ; Start 08/29/17 at 00:00; Stop 08/29/17 at 00:01; Status DC Famotidine (Pepcid) 20 mg BID NG Last administered on 11/02/17at 09:46; Start 09/24/17 at 09:30 Fentanyl Citrate 250 ml @ 5 mls/hr TITRATE PRN IV SEDATION Last administered on 09/11/17 06:14; Start 08/29/17 at 00:45; Stop 09/11/17 at 10:20; Status DC Fluticasone Propionate (Flonase Tae Spr) 2 spray DAILY EACH NARE Last administered on 11/01/17 09:52; Start 09/05/17 at 17:00 Gabapentin (Neurontin) 100 mg TID PO Last administered on 11/02/17 09:46; Start 10/26/17 at 13:00 Gelatin (Gelfoam 12 Mm/7 Mm Top) 1 foam Q2HR PRN TOPICAL if still bleeding from peg Last administered on 09/08/17 08:00; Start 09/07/17 at 19:45 Glucagon (Glucagon Inj) 1 mg UNSCH PRN OTHER HYPOGLYCEMIA-SEE COMMENTS; Start 09/25/17 at 09:30 Haloperidol Lactate (Haldol Inj) 5 mg Q4H PRN IV agitation Last administered on 09/12/17 23:04; Start 08/31/17 at 11:00; Stop 09/25/17 at 09:30; Status DC Heparin Sodium (Porcine) (Heparin Inj) 5,000 units Q12HR SQ Last administered on 09/28/17 08:20; Start 09/11/17 at 21:00; Status Future Hold Hydralazine HCl (Apresoline Inj) 10 mg Q30M PRN IV PUSH sbp > 160 Last administered on 09/19/17 09:08; Start 08/30/17 at 08:15 Hydralazine HCl (Apresoline) 100 mg Q8HR G-TUBE Last administered on 11/02/17 06:38; Start 09/25/17 at 14:00 Hydrochlorothiazide (Hydrodiuril) 25 mg DAILY PO Last administered on 10:37; Start 08/29/17 at 09:00; Stop 09/08/17 at 11:02; Status DC Insulin Aspart (NovoLOG SUPPLEMENTAL SCALE) 1 Q6H SQ Last administered on 13:27; Start 09/25/17 at 12:00 Insulin Detemir (Levemir Inj) 15 units Q12H SQ ; Start 11/01/17 at 22:00 Insulin Human Regular (NovoLIN R SUPPLEMENTAL SCALE) 1 Q4HR SQ Last administered on 09/25/17 04:09; Start 09/18/17 at 12:00; Stop 09/25/17 at 09: 28; Status DC Insulin Human Regular (NovoLIN R INJ) See Protocol Table ... DIRECTOR OF INFECTION CONTROL PRN SQ SEE PROTOCOL TABLE; Start 09/05/17 at 23:00; Stop 09/08/17 at 22:59; Status DC Labetalol HCl (Trandate Inj) 10 mg Q20M PRN IV PUSH SBP>140, DBP>90 Last administered on 09/19/17 02:16; Start 08/29/17 at 00:45 Labetalol HCl (Trandate) 300 mg NOW ONCE PEG Last administered on 09/17/17 04 :23; Start 09/17/17 at 04:15; Stop 09/17/17 at 04:16; Status DC Lactated Ringer's 1,000 ml @ 30 mls/hr Q24H PRN IV SEE LABEL COMMENTS; Start 09/05/17 at 23:00; Stop 09/08/17 at 22:59; Status DC Lactulose (Lactulose Liq) 30 ml BID PO Last administered on 09/04/17 19:57; Start 08/31/17 at 12:00; Stop 09/25/17 at 09:30; Status DC Lidocaine HCl (Lidocaine Pf 2% Neb) 1 ml Q6HR NEB PRN NEB cough/bronchial irritation; Start 09/16/17 at 11:30 Lisinopril (Prinivil) 40 mg DAILY PO Last administered on 09/04/17 09:07; Start 08/29/17 at 09:00; Stop 09/04/17 at 12:18; Status DC Lorazepam (Ativan Inj) 1 mg ONCE ONCE IV PUSH Last administered on 09/13/17 02:57; Start 09/13/17 at 02:45; Stop 09/13/17 at 02:46; Status DC Lorazepam (Ativan) 1 mg Q12H PO Last administered on 09/09/17 20:27; Start 09/07/17 at 19:00; Stop 09/11/17 at 10:25; Status DC Magnesium Hydroxide (Milk Of Magnesia Liq) 30 ml Q12H PRN PO Mild constipation ; Start 08/29/17 at 00:45; Stop 08/31/17 at 11:08; Status DC Magnesium Citrate (Citroma Liq) 300 ml ONCE ONCE PO Last administered on 08/31 11:57; Start 08/31/17 at 12:00; Stop 08/31/17 at 12:01; Status DC Magnesium Oxide (Mag-Ox) 800 mg UNSCH PRN PO For Magnesium 1.2 - 1.6 mg/dL; Start 08/30/17 at 08:15; Stop 08/31/17 at 13:02; Status DC Magnesium Sulfate 2 gm/Sodium Chloride 100 ml @ 50 mls/hr UNSCH PRN IV For Magnesium 1.2 - 1.6 mg/dL; Start 08/30/17 at 08:15; Stop 08/31/17 at 13:02; Status DC Magnesium Sulfate 4 gm/Sodium Chloride 100 ml @ 50 mls/hr UNSCH PRN IV For Magnesium 0.9 - 1.1 mg/dL; Start 08/30/17 at 08:15; Stop 08/31/17 at 13:02; Status DC Magnesium Sulfate/ Dextrose 100 ml @ 100 mls/hr Q1H IV Last administered on 12:22; Start 08/31/17 at 12:00; Stop 08/31/17 at 13:00; Status DC Methylprednisolone Sodium Succinate (SoluMEDROL INJ) 125 mg ONCE ONCE IV PUSH Last administered on 10/20/17at 13:09; Start 10/20/17 at 12:15; Stop 10/20/17 at 12:16; Status DC Metoclopramide HCl (Reglan Inj) 5 mg Q8HR IV PUSH Last administered on 22:55; Start 09/09/17 at 22:00; Stop 09/11/17 at 10:25; Status DC Metoprolol Tartrate (Lopressor) 25 mg Q8H G-TUBE ; Start 09/25/17 at 13:00; Stop 09/25/17 at 13:00; Status DC Midazolam HCl (Versed Inj) 10 mg ONCE ONCE IV PUSH ; Start 09/08/17 at 13:00; Stop 09/08/17 at 13:41; Status DC Miscellaneous Information 1 [id number] Last administered on 08/29/17 01:00; Start 08/29/17 at 00:45; Stop 10/24/17 at 04:26; Status DC Modafinil (Provigil) 200 mg DAILY PO Last administered on 09/12/17 09:07; Start 09/11/17 at 12:00; Stop 09/25/17 at 09:30; Status DC Morphine Sulfate (Morphine Inj) 2 mg Q3H PRN IM BREAKTHROUGH PAIN Last administered on 11/01/17 13:25; Start 11/01/17 at 13:00 Nicardipine HCl 25 mg/Sodium Chloride 250 ml @ 50 mls/hr TITRATE PRN IV Blood pressure management Last administered on 09/17/17 04:57; Start 09/13/17 at 02: 45; Stop 09/17/17 at 12:47; Status DC Nicardipine HCl 50 mg/Sodium Chloride 500 ml @ 50 mls/hr TITRATE PRN IV BLOOD PRESSURE MANAGEMENT Last administered on 09/05/17 22:00; Start 09/02/17 at 21 :15; Stop 09/11/17 at 10:25; Status DC Ondansetron HCl (Zofran Inj) 4 mg Q6H PRN IV PUSH NAUSEA OR VOMITING Last administered on 09/11/17 14:18; Start 08/29/17 at 00:45 Oxycodone HCl (Roxicodone Intensol Liq) 5 mg Q4H PRN G-TUBE pain 6-10 Last administered on 11/02/17 09:47; Start 11/01/17 at 15:00 Pantoprazole Sodium (Protonix Inj) 40 mg DAILY IV PUSH Last administered on 09:15; Start 08/29/17 at 09:00; Stop 09/11/17 at 10:25; Status DC Pharmacy Profile Note 0 ml @ 0 mls/hr UNSCH OTHER ; Start 09/13/17 at 02:45; Stop 09/17/17 at 10:11; Status DC Piperacillin Sod/ Tazobactam Sod 50 ml @ 100 mls/hr Q6H IV Last administered on 09/19/17 20:26; Start 09/13/17 at 03:00; Stop 09/19/17 at 23:00; Status DC Polyethylene Glycol (Miralax) 17 gm BID G-TUBE Last administered on 1/17/18at 09:41; Start 09/25/17 at 21:00 Potassium Chloride 30 meq/ Sodium Chloride 115 ml @ 38.333 mls/ hr ONCE ONCE IV-CENTRAL Last administered on 09/03/17 13:36; Start 09/03/17 at 14:00; Stop 09/03/17 at 16:59; Status DC Potassium Phosphate (K-Phos) 2,000 mg UNSCH PRN PO/TUBE SEE LABEL COMMENTS; Start 08/30/17 at 08:15; Stop 08/31/17 at 13:02; Status DC Potassium Phosphate 30 mmol/ Sodium Chloride 260 ml @ 42 mls/hr UNSCH PRN IV SEE LABEL COMMENTS; Start 08/30/17 at 08:15; Stop 08/31/17 at 13:02; Status DC Potassium Bicarb/ Potassium Chloride (K-Lyte Cl Eff) 50 meq ONCE ONCE PO Last administered on 09/25/17 05:25; Start 09/25/17 at 04:30; Stop 09/25/17 at 04:31; Status DC Potassium Chloride 100 ml @ 50 mls/hr Q2H IV Last administered on 09/15/17 10 :22; Start 09/15/17 at 08:15; Stop 09/15/17 at 12:14; Status DC Potassium Chloride (KCl Powder) 40 meq ONCE ONCE PEG Last administered on 12:15; Start 09/08/17 at 12:15; Stop 09/08/17 at 12:21; Status DC Potassium Chloride (KCl) 40 meq ONCE ONCE PO ; Start 09/08/17 at 09:00; Stop 09/08/17 at 12:05; Status DC Povidone Iodine (Betadine 5% Antisepsis Kit) 1 applic DIRECTOR OF INFECTION CONTROL PRN EACH NARE SEE LABEL COMMENTS; Start 09/05/17 at 23:00; Stop 09/08/17 at 22:59; Status DC Propofol 100 ml @ 14.352 mls/ hr TITRATE PRN IV SEDATION Last administered on 09/10/17 09:59; Start 08/31/17 at 00:30; Stop 09/11/17 at 10:20; Status DC Propranolol HCl (Inderal) 40 mg Q6HR G-TUBE Last administered on 11/02/17at 06: 37; Start 09/25/17 at 12:00 Quetiapine Fumarate (SEROquel) 50 mg Q8HR G-TUBE Last administered on 06:38; Start 09/25/17 at 14:00 Rocuronium Stanley (Zemuron Inj) 100 mg BOLUS ONCE IV ; Start 09/08/17 at 13: 00; Stop 09/08/17 at 13:44; Status DC Senna/Docusate Sodium (Melina-Colace) 1 tab BID G-TUBE Last administered on 09:39; Start 09/25/17 at 21:00 Sennosides (Senokot) 17.2 mg Q12H PRN PO Moderate constipation; Start at 00:45; Stop 08/31/17 at 11:08; Status DC Silver Nitrate/ Potassium Nitrate (Silver Nitrate Applicators) 1 appl ONCE ONCE TOPICAL Last administered on 09/07/17 10:15; Start 09/07/17 at 10:15; Stop 09/07/17 at 10:47; Status DC Sodium Polystyrene Sulfonate (Kayexalate Liq) 30 gm Q2HR PO Last administered on 09/21/17 19:53; Start 09/21/17 at 16:00; Stop 09/21/17 at 21:00; Status DC Sodium Chloride 250 ml @ 15 mls/hr ONCE ONCE IV ; Start 09/28/17 at 10:15; Stop 09/28/17 at 16:53; Status DC Sodium Chloride (NS Flush) 2 ml UNSCH PRN IVF FLUSH AFTER USING IV ACCESS Last administered on 10/24/17at 20:44; Start 08/29/17 at 00:00 Sodium Chloride 38.5 meq/Sterile Water 1,009.625 ml @ 42 mls/hr Q24H IV Last administered on 09/25/17 06:01; Start 09/20/17 at 13:00; Stop 09/25/17 at 09 :24; Status DC Sodium Phosphate 30 mmol/Sodium Chloride 250 ml @ 42 mls/hr UNSCH PRN IV For Phosphorus < 2.5 mg/dL; Start 08/30/17 at 08:15; Stop 08/31/17 at 13:02; Status DC Succinylcholine Chloride (Quelicin Inj) 100 mg ONCE ONCE IV PUSH ; Start 08/29 at 00:00; Stop 08/29/17 at 00:01; Status DC Vancomycin HCl 1500 mg/Sodium Chloride 515 ml @ 257.5 mls/ hr ONCE ONCE IV Last administered on 09/16/17 17:07; Start 09/16/17 at 15:00; Stop 09/16/17 at 16:59; Status DC Vancomycin HCl 2000 mg/Sodium Chloride 520 ml @ 250 mls/hr ONCE ONCE IV Last administered on 09/13/17 05:52; Start 09/13/17 at 04:00; Stop 09/13/17 at 06:04 ; Status DC Vancomycin HCl 2500 mg/Sodium Chloride 525 ml @ 250 mls/hr ONCE ONCE IV Last administered on 09/14/17 12:29; Start 09/14/17 at 12:00; Stop 09/14/17 at 14:05 ; Status DC Water (Free Water) 300 ml Q4HR G-TUBE Last administered on 11/02/17at 09:52; Start 09/18/17 at 12:00 A/P Problem List: (1) Intracranial hemorrhage ICD Code: I62.9 - Nontraumatic intracranial hemorrhage, unspecified Status: Acute Assessment and Plan A/P Acute encephalopathy - improving. Left Thalamic Hemorrhage Intracerebral Hemorrhage - Repeat CT of the head showed improving bleed - Neurosurgery follow-up appreciated; stable for dc to SNF per neurosurgery. - Continue rehabilitation efforts with PT, OT, speech - On Seroquel to control agitated delirium. Roxicodone as needed for pain Anemia likely due to chronic disease. H/H fairly stable. will monitor periodically. Healthcare associated pneumonia finished the course of antibiotic. UTI: treated. Respiratory failure s/p trach - continue neb treatment. -Patient had angioedema, source unclear and was seen by ENT. He was treated with steroids. Per ENT, expect slow improvement. This is resolving. -Appreciate pulmonology following for trach management Respiratory failure s/p trach -pulmonary following. Hyperglycemia - - decreased Levemir to 18 units SQ q12h - Continue sliding scale insulin with Accu-Cheks. - hemoglobin A1c 9.1. Hypertension - Intermittent hypertension now well controlled - Continue clonidine, amlodipine and propranolol - Continue hydralazine. Nutrition status: - Status post PEG tube - -on diet now per ST. Acute kidney injury, most likely has CKD per nephrology: Renal function stabilized. - monitor renal function periodically. fever/ leukocytosis- now better- will monitor for now. pain to the right leg. will check for venous doppler right leg- continue pain control. Physical deconditioning/right sided hemiparesis - OOB to stretcher chair daily - PT/OT following AND SPEECH PROPH: - SCD's. Pepcid for GI prophylaxis Discharge Planning [place] to [place] soon. see med list. f/u; pcp. d/w the patient and RN. previously d/w the case management. time spent 35 min. Zoë Rivas MD Nov 02, 2017 11:45
--- NOTE | 2017-11-02 14:51 | RADRPT ---
EXAM DATE/TIME: 11/02/2017 13:14 [facility] COMPARISON: No previous studies available for comparison. INDICATIONS : Right leg pain. MEDICAL HISTORY : CVA. Migraines. Chest pain. HTN. GERD. SURGICAL HISTORY : None. ENCOUNTER: Initial ACUITY: 1 day PAIN SCORE: 10/10 LOCATION: Right leg. TECHNIQUE: Venous ultrasound of the leg was performed from the inguinal ligament to the proximal calf. Real-daryl e, color Doppler and spectral tracing, compression and augmentation techniques were used. FINDINGS: There is normal compressibility of the deep venous system from the inguinal region to the proximal ca lf. No echogenic clot is seen in the lumen of the common femoral, femoral, popliteal, and posterior tibial veins. There is a normal response of the venous system to proximal and distal augmentation an d respiration. CONCLUSION: 1. No sonographic evidence for right lower extremity DVT. Darrell Robles MD on November 02, 2017 at 14:48 Board Certified Radiologist. This report was verified electronically.
--- NOTE | 2017-11-02 18:22 | HHI.PR ---
Subjective Remarks ALERT NO DISTRESS TRACH capped no problem OK Objective Vital Signs Date Time Temp Pulse Resp B/P (MAP) Pulse Ox O2 Delivery O2 Flow Rate FiO2 11/02/17 17:59 92 Nasal Cannula 3.00 11/02/17 16:00 99.2 87 18 144/92 (109) 92 11/02/17 12:00 94 11/02/17 12:00 98.6 98 20 166/101 (122) 95 11/02/17 08:00 90 11/02/17 08:00 98.5 91 16 128/71 (90) 96 11/02/17 07:00 Room Air 11/02/17 04:00 99.3 91 20 133/87 (102) 95 11/02/17 04:00 Nasal Cannula 3.00 Humidified 11/02/17 03:47 94 11/02/17 00:00 Nasal Cannula 3.00 Humidified 11/02/17 00:00 99.9 97 20 152/84 (106) 95 11/01/17 23:44 98 11/01/17 22:13 94 Nasal Cannula 3.00 11/01/17 20:00 99.5 91 20 133/87 (102) 98 11/01/17 19:45 89 I/O 11/01/17 11/01/17 11/01/17 11/02/17 11/02/17 11/02/17 07:00 15:00 23:00 07:00 15:00 23:00 Intake Total 240 ml 710 ml Output Total 800 ml 500 ml 850 ml 550 ml Balance -800 ml -260 ml -140 ml -550 ml Intake Oral 240 ml 710 ml Output Urine Total 800 ml 500 ml 850 ml 550 ml Bladder Scan Volume Amount 30 ml # Bowel Movements 0 Result Diagram: 11/01/17 0811 10/31/17 0340 Objective Remarks GENERAL: SKIN: Warm and dry. HEAD: Atraumatic. Normocephalic. EYES: Pupils equal and round. No scleral icterus. No injection or drainage. ENT: No nasal bleeding or discharge. Mucous membranes pink and moist. NECK: Trachea midline. No JVD. CARDIOVASCULAR: Regular rate and rhythm. RESPIRATORY: No accessory muscle use. Clear to auscultation. Breath sounds equal bilaterally. GASTROINTESTINAL: Abdomen soft, non-tender, nondistended. Hepatic and splenic margins not palpable. MUSCULOSKELETAL: Extremities without clubbing, cyanosis, or edema. No obvious deformities. NEUROLOGICAL: Awake and alert. No obvious cranial nerve deficits. Motor grossly within normal limits. Five out of 5 muscle strength in the arms and legs. Normal speech. PSYCHIATRIC: Appropriate mood and affect; insight and judgment normal. Assessment and Plan Assessment and Plan RESPIRATORY FAILURE S/P TRACH S/P CVA OBESITY HTN PLAN O2 NEEDED PULM TOILET INCREASE ACTIVITY remove trach when possible Wang Piña MD Nov 02, 2017 18:22
--- NOTE | 2017-11-02 18:56 | HHI.NSPN ---
(James Ontiveros) History Chief Complaint: Some visual problems. (James Ontiveros) Interval History 08/29: History of hypertension who was brought to the emergency room per [facility] after being found with altered mental status, right hemiparesis. He had reportedly been seen to be normal approximately 3-1/2 hours prior. Systolic blood pressure greater than 260/130 on initial evaluation. No seizure activity reported. Positive emesis. Per emergency room personnel the patient was responding verbally, difficulty raising his right arm upon initial arrival. He was intubated in the emergency room and a stat CT scan accomplished which has revealed a primarily left thalamic intracranial hemorrhage. 09/01/17: Patient remains intubated and sedated. :09/02: intubated and well sedated, not tolerating sedation vacation due to increase in blood pressure. 09/03/17: Remains on propofol and fentanyl IV for ventilator control. Positive agitation with decreased sedation 09/04/17: Pt sedated on Diprivan and Fentanyl drip. Not following commands. Pt on Cardene drip. Intubated. 09/05/17: Pt sedated on Diprivan and Fentanyl drip. Not following commands. Pt on Cardene drip. Intubated. Pupils 2mm bilaterally, NR bilaterally. 09/06/17: Remains intubated. PEG tube placed today. On Decadron and Benadryl for angioedema. Lisinopril discontinued 09/07. The patient is obtunded but is sedated with propofol. Nursing reports that the patient does have bleeding secondary to his PEG tube being placed yesterday. The family reports that the plan is to do a tracheostomy tomorrow. Nursing does say the patient does withdraw to stimulation, has a cough and gag reflex but his pupils are nonreactive. 09/10: The patient continues to be obtunded although he has sedation infusing at a low dose. He is trached and tolerating a CPAP trial. 09/13: Obtunded versus lethargic. He is not on any sedation. He is trached and mechanically ventilated. He went for a CT brain this morning. Nursing reports that the patient does withdraw to noxious stimulation and that the pupils are sluggish. 09/14: The patient has his eyes open when seen. He continues to be trached and mechanically ventilated. Nursing this morning reports that the patient gave a thumbs up on the left hand to command for him. 09/15: Pt off sedative drips. Pupils 2mm bilaterally slight reaction bilaterally. Not following commands. Not opening eyes. 09/16: When seen this morning the patient appears lethargic. He is trached and on T-piece. Nursing reports that the patient was more alert and did give a thumbs up to command this morning prior to receiving diphenhydramine. He also reported no movement to the right side. 09/17: No acute events overnight. Patient up in chair 09/18: No acute events overnight. Patient remains hypertensive. He is in bed with at his side. 09/19: Persistent hypertension overnight. 09/20/2017: Tracheostomy in place. Upper endoscopy performed 09/19/17 with findings of small amount of bleeding at the PEG site. 09/22: The patient is awake when seen. He does interact. 09/23: This morning the patient does have his eyes closed but opens them to voice. He does follow commands with the left side extremities and it appears he does track. 09/24: When seen the patient is awake and looks towards my voice. He does follow commands on the left and appears to track with the eyes. No movement of the right noted. 09/27: The patient is moving the left arm spontaneously to wipe his face. He continues to have some mild swelling to the tongue. He was transferred from [facility] to a regular med/surg floor on . 09/28: This afternoon the patient is asleep but awakens to noxious stimulation. His family states that he was extremely tired. Once awake he did interact. 10/05: When seen this morning the patient has his eyes closed. Nursing states that the patient has been sleepy every time she has been in the room today. He did respond and open his eyes to central noxious stimulation and follow some commands. 10/12: The patient is asleep when this practitioner enters the room. He opens his eyes to voice and moves the left side to command and spontaneously. He does weakly try to say a couple word. He is trached and on a T-piece. Nursing reported that a Passey Balta valve was tried but the patient had difficulty with his respirations. 10/26: This morning the patient is awake with the Passey [place] valve in place. He is talking and oriented. He states that he has a trach in place and doesn't need it anymore. He does say he is not able to move the right lower extremity when asked to do so. 11/02: When seen this evening the patient is awake and alert. He remains trached but has the Passey Balta valve in place. He denies any headache or dizziness. He is spontaneously moving the left upper extremity. He says he is having some visual problems that have been going on for the past five weeks. He also says he has had some pain into the distal right lower extremity. (James Ontiveros) Exam Results 11/01/17 11/01/17 11/02/17 11/02/17 11/03/17 11/03/17 05:59 17:59 05:59 17:59 05:59 17:59 Intake Total 240 ml 240 ml 710 ml Output Total 300 ml 1300 ml 1400 ml Balance -60 ml -1060 ml -690 ml Intake Oral 240 ml 240 ml 710 ml Output Urine Total 300 ml 1300 ml 1400 ml Bladder Scan Volume Amount 30 ml # Bowel Movements 0 Vital Signs Date Time Temp Pulse Resp B/P (MAP) Pulse Ox O2 Delivery O2 Flow Rate FiO2 11/02/17 17:59 92 Nasal Cannula 3.00 11/02/17 16:00 99.2 87 18 144/92 (109) 92 11/02/17 12:00 94 11/02/17 12:00 98.6 98 20 166/101 (122) 95 11/02/17 08:00 90 11/02/17 08:00 98.5 91 16 128/71 (90) 96 11/02/17 07:00 Room Air 11/02/17 04:00 99.3 91 20 133/87 (102) 95 11/02/17 04:00 Nasal Cannula 3.00 Humidified 11/02/17 03:47 94 11/02/17 00:00 Nasal Cannula 3.00 Humidified 11/02/17 00:00 99.9 97 20 152/84 (106) 95 11/01/17 23:44 98 11/01/17 22:13 94 Nasal Cannula 3.00 11/01/17 20:00 99.5 91 20 133/87 (102) 98 11/01/17 19:45 89 11/01/17 16:00 90 11/01/17 16:00 99.6 89 20 148/82 (104) 93 11/01/17 12:00 97 11/01/17 12:00 100.0 97 20 143/76 (98) 96 11/01/17 08:00 93 11/01/17 08:00 99.7 96 20 161/86 (111) 95 11/01/17 07:00 Room Air 11/01/17 04:00 99.6 97 18 155/83 (107) 96 11/01/17 00:00 98.7 98 20 148/80 (102) 96 10/31/17 22:00 Room Air Trach Collar T-Piece 10/31/17 20:00 94 10/31/17 20:00 98.9 101 20 152/81 (104) 94 10/31/17 16:00 106 10/31/17 16:00 99.2 103 18 149/78 (101) 95 10/31/17 12:00 99.1 98 18 146/75 (98) 94 10/31/17 08:00 92 10/31/17 08:00 96 Room Air 21 Trach Collar T-Piece 10/31/17 08:00 98.7 90 18 118/66 (83) 95 10/31/17 04:23 106 10/31/17 04:00 98.7 105 20 150/77 (101) 96 10/31/17 00:29 96 21 10/31/17 00:00 100.2 91 22 120/72 (88) 96 10/31/17 00:00 99 10/31/17 00:00 Room Air Trach Collar T-Piece 10/30/17 20:00 97 10/30/17 20:00 100.3 98 20 144/83 (103) 95 (James Ontiveros) Physical Examination GENERAL: Awake & alert, readily interacts, no evident distress. HEENT: Normocephalic, atraumatic. Tracking with his eyes, gaze appears to be disconjugate. MUSCULOSKELETAL: No evident clubbing or deformity. Moving LUE spontaneously. He does move the RUE & LLE to command. He does have a trace muscle contraction to the proximal RLE. NEUROLOGICAL: AA&O x3. Speech essentially clear w/Passey Balta valve in place, some dysarthria. Left pupil 3 mm & right pupil 4 mm, slight reaction. Follows simple commands. Moves LUE=LLE>RUE to command w/trace muscle contraction to the proximal RLE. (James Ontiveros) Lab, Micro, Other Results Recent Impressions Lower Extremity Ultrasound 11/02/17 0000 Signed Impressions: Service Date/Time: Thursday, November 02, 2017 13:14 - CONCLUSION: 1. No sonographic evidence for right lower extremity DVT. Darrell Robles MD Chest X-Ray 10/31/17 0000 Signed Impressions: Service Date/Time: Tuesday, October 31, 2017 13:18 - CONCLUSION: Possible mild CHF. Norma Malik MD Laboratory Tests Test 10/31/17 03:40 11/01/17 08:11 11/01/17 10:05 White Blood Count 16.4 TH/MM3 11.2 TH/MM3 Red Blood Count 3.76 MIL/MM3 3.58 MIL/MM3 Hemoglobin 9.5 GM/DL 9.0 GM/DL Hematocrit 30.4 % 28.6 % Mean Corpuscular Volume 81.0 FL 79.8 FL Mean Corpuscular Hemoglobin 25.3 PG 25.1 PG Mean Corpuscular Hemoglobin Concent 31.3 % 31.5 % Red Cell Distribution Width 15.6 % 15.8 % Platelet Count 393 TH/MM3 353 TH/MM3 Mean Platelet Volume 9.3 FL 9.4 FL Neutrophils (%) (Auto) 86.2 % 83.3 % Lymphocytes (%) (Auto) 6.0 % 6.9 % Monocytes (%) (Auto) 6.2 % 8.2 % Eosinophils (%) (Auto) 1.2 % 1.3 % Basophils (%) (Auto) 0.4 % 0.3 % Neutrophils # (Auto) 14.1 TH/MM3 9.4 TH/MM3 Lymphocytes # (Auto) 1.0 TH/MM3 0.8 TH/MM3 Monocytes # (Auto) 1.0 TH/MM3 0.9 TH/MM3 Eosinophils # (Auto) 0.2 TH/MM3 0.1 TH/MM3 Basophils # (Auto) 0.1 TH/MM3 0.0 TH/MM3 CBC Comment DIFF FINAL DIFF FINAL Differential Comment Blood Urea Nitrogen 16 MG/DL Creatinine 0.93 MG/DL Random Glucose 108 MG/DL Calcium Level 9.5 MG/DL Sodium Level 142 MEQ/L Potassium Level 3.8 MEQ/L Chloride Level 104 MEQ/L Carbon Dioxide Level 23.9 MEQ/L Anion Gap 14 MEQ/L Estimat Glomerular Filtration Rate 107 ML/MIN Urine Color YELLOW Urine Turbidity HAZY Urine pH 5.5 Urine Specific [place] 1.018 Urine Protein 30 mg/dL Urine Glucose (UA) NEG mg/dL Urine Ketones 80 mg/dL Urine Occult Blood NEG Urine Nitrite NEG Urine Bilirubin NEG Urine Urobilinogen 2.0 MG/DL Urine Leukocyte Esterase LARGE Urine RBC 3 /hpf Urine WBC 97 /hpf Urine Squamous Epithelial Cells <1 /hpf Urine Bacteria RARE /hpf Urine Hyaline Casts 12 /lpf Urine Mucus FEW /lpf Urine Sperm RARE Microscopic Urinalysis Comment CULTURE INDICATED (James Ontiveros) Medical Decision Making Impression and Plan Impression: 1. Large thalamic intracranial hemorrhage. 2. Hypertension, improved 3. Klebsiella pneumonia, resolved The patient continues to improve neurologically w/good motor function to left- side extremities and improving to RUE, trace muscle contraction to RLE. Patient does complain of visual problems. CT brain demonstrates left basal ganglia encephalomalacia w/o significant mass effect and no new areas of haemorrhage. Plan: Discussed the plan of care with the patient. Primary management per Hospitalist. Recommend Ophthalmology consult. Recommend continuing neuro checks. The patient is stable for discharge to a SNF from NSGY's perspective. At this time Neurosurgery will sign off since there are no active issues. If we may be of further assistance please consult the service as needed. Thank you for allowing us to participate in your patient's care. There is no need for follow up with Neurosurgery after discharge. (James Ontiveros) Attending Statement The exam, history, and the medical decision-making described in the above note were completed with the assistance of the mid-level provider. I reviewed and agree with the findings presented. I attest that I had a [id number] encounter with the patient on the same day, and personally performed and documented my assessment and findings in the medical record. (Orville Tinajero MD) James Ontiveros Nov 02, 2017 18:56 Orville Tinajero MD Nov 07, 2017 13:34
[2017-11-02] MEDS: ATORVASTATIN 40 MG TAB DOBHOFF SCH (21:12)
[2017-11-03] VITALS (12 sets, daily range): BP systolic 125–180; BP diastolic 62–102; PULSE 84–99; RESP 16–20; TEMP 98–99.8; O2SAT 94–100
[2017-11-03] MEDS: FREE WATER G-TUBE SCH ×6 (04:00→20:00)
[2017-11-03] MEDS: RESP: ALBUTEROL 2.5 MG/3 ML NEB (PRN) NEB (06:06)
[2017-11-03] MEDS: INSULIN ASPART SUPPLEMENTAL SCALE SQ SCH ×4 (06:13→23:49)
[2017-11-03] MEDS: PROPRANOLOL HCL 40 MG TAB G-TUBE SCH ×4 (06:39→23:47)
[2017-11-03] MEDS: QUEtiapine FUMARATE 25 MG TAB G-TUBE SCH ×3 (06:39→21:40)
[2017-11-03] MEDS: hydrALAZINE HCL 100 MG TAB G-TUBE SCH ×3 (06:39→21:41)
[2017-11-03] MEDS: cloNIDine HCL 0.3 MG TAB G-TUBE SCH ×3 (06:39→21:40)
[2017-11-03] MEDS: POLYETHYLENE GLYCOL 17 GM PKG G-TUBE SCH ×2 (09:00→21:00)
[2017-11-03] MEDS: GABAPENTIN 100 MG CAP PO SCH ×3 (09:36→18:59)
[2017-11-03] MEDS: CHLORHEXIDINE GLUCONATE 0.12% 15 ML CUP SWISH-SPIT SCH ×3 (09:36→18:00)
[2017-11-03] MEDS: DOCUSATE SODIUM 50 MG/SENNA 8.6 MG TAB G-TUBE SCH ×2 (09:37→21:40)
[2017-11-03] MEDS: FAMOTIDINE 20 MG TAB NG SCH ×2 (09:37→21:40)
[2017-11-03] MEDS: FLUTICASONE PROPIONATE 50 MCG/ACT 16 GM NASAL SPRAY EACH NARE SCH (09:58)
[2017-11-03] MEDS: INSULIN DETEMIR 100 UNITS/ML VIAL SQ SCH ×2 (11:46→21:42)
--- NOTE | 2017-11-03 12:22 | HHI.PR ---
Subjective Remarks in no acute distress. resting comfortably. afebrile. report of diplopia- per PT. d/w the RN. Objective Vitals Vital Signs Date Time Temp Pulse Resp B/P (MAP) Pulse Ox O2 Delivery O2 Flow Rate FiO2 11/03/17 08:08 98.1 84 20 125/62 (83) 99 11/03/17 06:36 99.1 91 16 155/76 (102) 100 11/03/17 06:07 99 Nasal Cannula 3.00 11/03/17 06:05 93 125/80 (95) 99 11/03/17 05:55 Room Air 11/03/17 04:00 Room Air 11/03/17 03:49 84 11/03/17 01:25 98.0 92 16 133/76 (95) 95 11/03/17 00:00 Room Air 11/02/17 23:50 90 11/02/17 21:33 Room Air 11/02/17 21:23 97.6 96 16 137/81 (99) 95 11/02/17 19:49 96 11/02/17 17:59 92 Nasal Cannula 3.00 11/02/17 16:00 99.2 87 18 144/92 (109) 92 11/02/17 16:00 92 I/O 11/02/17 11/02/17 11/02/17 11/03/17 11/03/17 11/03/17 07:00 15:00 23:00 07:00 15:00 23:00 Intake Total 710 ml Output Total 850 ml 550 ml 400 ml Balance -140 ml -550 ml -400 ml Intake Oral 710 ml Output Urine Total 850 ml 550 ml 400 ml # Bowel Movements 0 Result Diagram: 11/01/17 0811 10/31/17 0340 Imaging Last Impressions Lower Extremity Ultrasound 11/02/17 0000 Signed Impressions: Service Date/Time: Thursday, November 02, 2017 13:14 - CONCLUSION: 1. No sonographic evidence for right lower extremity DVT. Darrell Robles MD Chest X-Ray 10/31/17 0000 Signed Impressions: Service Date/Time: Tuesday, October 31, 2017 13:18 - CONCLUSION: Possible mild CHF. K. Luigi Malik MD Head CT 10/27/17 1001 Signed Impressions: Service Date/Time: Friday, October 27, 2017 10:55 - CONCLUSION: 1. Small area of encephalomalacia in the left basal ganglia corresponding to the area of hemorrhage seen on the previous exam. No new areas of hemorrhage are seen. No significant mass effect is identified. Ant Reece MD Maxillofacial CT 09/16/17 0000 Signed Impressions: Service Date/Time: September 01:03 - CONCLUSION: 1. Evidence of acute pansinusitis. 2. Opacification of multiple bilateral mastoid air cells most characteristic of mastoiditis. 3. Mildly prominent cervical chain nodes which may be reactive. Angelo Conn MD Upper Extremity Ultrasound 09/15/17 0000 Signed Impressions: Service Date/Time: Friday, September 15, 2017 17:14 - CONCLUSION: Occlusive thrombus within the left cephalic vein and nonocclusive thrombus within the right cephalic vein. Ric Jack MD Chest CT 09/13/17 0000 Signed Impressions: Service Date/Time: Wednesday, September 13, 2017 09:28 - CONCLUSION: 1. Bibasilar and left lingular dependent atelectatic changes. Lungs are otherwise clear. 2. Tracheostomy tube with the tip probably positioned above the connie. 3. Compensated cardiomegaly. Reyes Guzman MD Abdomen/Pelvis CT 09/13/17 0000 Signed Impressions: Service Date/Time: Wednesday, September 13, 2017 09:28 - CONCLUSION: 1. There is some stranding in the retroperitoneal perivascular tissues around the distal aorta extending into the bifurcation with a regional borderline lymph nodes. Findings are characteristic of a nonspecific inflammatory process. Findings could represent early retroperitoneal fibrosis.. 2. Urinary bladder is decompressed with some mural thickening in pericystic inflammatory changes possibly representing a chronic cystitis. Nondependent air could be associated with a recent catheterization/instrumentation. 3. Small umbilical and right inguinal hernias only contain fat. 4. Bilateral dependent basilar and left lingular atelectatic changes. Heart size is borderline prominent. 5. Otherwise , bowel is intact without obstruction to explain abdominal distention Reyes Guzman MD Abdomen X-Ray 09/10/17 0600 Signed Impressions: Service Date/Time: Sunday, September 10, 2017 03:56 - CONCLUSION: No significant abnormality is identified. There is mild distention of the colon but there are no findings to suggest bowel obstruction or significant ileus. Ignacio Underwood MD Liver Ultrasound 09/07/17 0000 Signed Impressions: Service Date/Time: Thursday, September 07, 2017 12:37 - CONCLUSION: 1. Unremarkable sonographic appearance of the liver. No evidence for hepatic volume loss or intrahepatic ductal dilatation. 2. No sonographic evidence for cholelithiasis or acute cholecystitis. 3. Mild increased right renal echogenicity may reflect medical renal disease. 4. Small bilateral pleural effusions. 5. Pancreas and inferior pole of the right kidney are obscured by bowel gas and therefore not evaluated. Darrell Robles MD Renal Ultrasound 08/31/17 0000 Signed Impressions: Service Date/Time: Thursday, August 31, 2017 17:42 - CONCLUSION: 1. No evidence of hydronephrosis on either side. 2. Solitary linear echogenic focus in the upper pole parenchyma of the right kidney has similar features to prior examination in January 2017 and possibly represents a calcification. David Snell MD Neck CTA 08/28/17 2347 Signed Impressions: Service Date/Time: Tuesday, August 29, 2017 00:13 - CONCLUSION: Negative carotid CTA. David Snell MD Head CTA 08/28/17 2347 Signed Impressions: Service Date/Time: Tuesday, August 29, 2017 00:13 - CONCLUSION: 1. No evidence of vessel truncation or aneurysm. 2. No abnormal vessels in the region of the large left thalamic hemorrhage. David Snell MD Objective Remarks GENERAL: in no apparent distress. Neck; trach in place. CARDIOVASCULAR: Regular rate and irregular rhythm without murmurs, gallops, or rubs. RESPIRATORY: Clear to auscultation. Breath sounds equal bilaterally. No wheezes , rales, or rhonchi. GASTROINTESTINAL: Abdomen soft, non-tender, nondistended. Normal, active bowel sounds-PEG in place. MUSCULOSKELETAL: Extremities without clubbing, cyanosis, or edema. NEURO: awake. Procedures Tracheostomy and PEG placement Medications and IVs Inpatient Medications Acetaminophen (Tylenol) 650 mg Q6H PRN G-TUBE PAIN 1-5 AND/OR FEVER >101F Last administered on 10/15/17at 23:34; Start 09/25/17 at 12:45 Albuterol Sulfate (Albuterol Neb) 2.5 mg Q2HR NEB PRN NEB sob/wheeze Last administered on 11/03/17 06:06; Start 09/25/17 at 13:30 Albuterol/ Ipratropium (Duoneb Neb) 1 ampule Q6HR NEB NEB Last administered on 10/27/17 10:00; Start 10/23/17 at 16:00; Stop 10/27/17 at 13:18; Status DC Amlodipine Besylate (Norvasc) 10 mg DAILY G-TUBE Last administered on 09:37; Start 09/26/17 at 09:00 Atorvastatin Calcium (Lipitor) 40 mg HS DOBHOFF Last administered on 11/02/17 21:12; Start 09/25/17 at 21:00 Bisacodyl (Dulcolax Supp) 10 mg DAILY RECTAL Last administered on 08/31/17 11 :58; Start 08/31/17 at 12:00; Stop 09/25/17 at 09:30; Status DC Calcium Acetate (Phoslo) 667 mg TID PO Last administered on 09/08/17 10:38; Start 08/31/17 at 18:00; Stop 09/08/17 at 11:02; Status DC Cefuroxime Axetil (Ceftin) 500 mg Q12HR PO Last administered on 10/03/17 09: 03; Start 09/26/17 at 11:15; Stop 10/03/17 at 11:14; Status DC Chlorhexidine Gluconate (Chlorhexidine 2% Cloth) 3 pack HVAC MECHANIC PRN TOPICAL SEE LABEL COMMENTS; Start 09/05/17 at 23:00; Stop 09/08/17 at 22:59; Status DC Chlorhexidine Gluconate (Peridex 0.12% Liq) 15 ml TID SWISH-SPIT Last administered on 11/03/17 09:36; Start 10/11/17 at 18:00 Clonidine (Catapres) 0.3 mg Q8HR G-TUBE Last administered on 11/03/17 06:39; Start 09/25/17 at 14:00 Dantrolene Sodium (Dantrium Inj) 70 mg ONCE ONCE IV Last administered on 03:55; Start 09/13/17 at 03:00; Stop 09/13/17 at 03:01; Status DC Desmopressin Acetate (Ddavp Tae Spr) 1 spray ONCE ONCE EACH NARE Last administered on 09/07/17 15:00; Start 09/07/17 at 15:00; Stop 09/07/17 at 15 :01; Status DC Dexamethasone Sodium Phosphate (Decadron Inj) 6 mg Q12HR IV PUSH Last administered on 09/20/17 09:26; Start 09/17/17 at 21:00; Stop 09/20/17 at 20: 59; Status DC Dexmedetomidine HCl 50 ml @ 29.9 mls/hr TITRATE IV ; Start 08/30/17 at 14:15; Stop 08/30/17 at 14:46; Status DC Dexmedetomidine HCl 1000 mcg/ Sodium Chloride 250 ml @ 29.9 mls/hr TITRATE IV Last administered on 08/30/17 17:58; Start 08/30/17 at 16:45; Stop 08/31/17 at 06:14; Status DC Dexmedetomidine HCl 200 mcg/ Sodium Chloride 50 ml @ 29.9 mls/hr TITRATE IV Last administered on 08/30/17 15:27; Start 08/30/17 at 15:00; Stop 08/30/17 at 16:42; Status DC Dextrose 1,000 ml @ 42 mls/hr [id number] IV Last administered on 09/20/17 09:25 ; Start 09/19/17 at 08:45; Stop 09/20/17 at 11:39; Status DC Dextrose (D50w (Vial) Inj) 25 ml UNSCH PRN IV PUSH HYPOGLYCEMIA-SEE COMMENTS; Start 09/18/17 at 12:00 Diphenhydramine HCl (Benadryl Inj) 25 mg Q6H IV PUSH Last administered on 08:06; Start 09/15/17 at 15:00; Stop 09/18/17 at 14:59; Status DC Etomidate (Amidate Inj) 20 mg ONCE ONCE IVP ; Start 08/29/17 at 00:00; Stop 08/29/17 at 00:01; Status DC Famotidine (Pepcid) 20 mg BID NG Last administered on 11/03/17at 09:37; Start 09/24/17 at 09:30 Fentanyl Citrate 250 ml @ 5 mls/hr TITRATE PRN IV SEDATION Last administered on 09/11/17 06:14; Start 08/29/17 at 00:45; Stop 09/11/17 at 10:20; Status DC Fluticasone Propionate (Flonase Tae Spr) 2 spray DAILY EACH NARE Last administered on 11/03/17 09:58; Start 09/05/17 at 17:00 Gabapentin (Neurontin) 100 mg TID PO Last administered on 11/03/17 09:36; Start 10/26/17 at 13:00 Gelatin (Gelfoam 12 Mm/7 Mm Top) 1 foam Q2HR PRN TOPICAL if still bleeding from peg Last administered on 09/08/17 08:00; Start 09/07/17 at 19:45 Glucagon (Glucagon Inj) 1 mg UNSCH PRN OTHER HYPOGLYCEMIA-SEE COMMENTS; Start 09/25/17 at 09:30 Haloperidol Lactate (Haldol Inj) 5 mg Q4H PRN IV agitation Last administered on 09/12/17 23:04; Start 08/31/17 at 11:00; Stop 09/25/17 at 09:30; Status DC Heparin Sodium (Porcine) (Heparin Inj) 5,000 units Q12HR SQ Last administered on 09/28/17 08:20; Start 09/11/17 at 21:00; Status Future Hold Hydralazine HCl (Apresoline Inj) 10 mg Q30M PRN IV PUSH sbp > 160 Last administered on 09/19/17 09:08; Start 08/30/17 at 08:15 Hydralazine HCl (Apresoline) 100 mg Q8HR G-TUBE Last administered on 11/03/17 06:39; Start 09/25/17 at 14:00 Hydrochlorothiazide (Hydrodiuril) 25 mg DAILY PO Last administered on 10:37; Start 08/29/17 at 09:00; Stop 09/08/17 at 11:02; Status DC Insulin Aspart (NovoLOG SUPPLEMENTAL SCALE) 1 Q6H SQ Last administered on 06:13; Start 09/25/17 at 12:00 Insulin Detemir (Levemir Inj) 15 units Q12H SQ Last administered on 1/24/18at 11:46; Start 11/01/17 at 22:00 Insulin Human Regular (NovoLIN R SUPPLEMENTAL SCALE) 1 Q4HR SQ Last administered on 09/25/17 04:09; Start 09/18/17 at 12:00; Stop 09/25/17 at 09: 28; Status DC Insulin Human Regular (NovoLIN R INJ) See Protocol Table ... HVAC MECHANIC PRN SQ SEE PROTOCOL TABLE; Start 09/05/17 at 23:00; Stop 09/08/17 at 22:59; Status DC Labetalol HCl (Trandate Inj) 10 mg Q20M PRN IV PUSH SBP>140, DBP>90 Last administered on 09/19/17 02:16; Start 08/29/17 at 00:45 Labetalol HCl (Trandate) 300 mg NOW ONCE PEG Last administered on 09/17/17 04 :23; Start 09/17/17 at 04:15; Stop 09/17/17 at 04:16; Status DC Lactated Ringer's 1,000 ml @ 30 mls/hr Q24H PRN IV SEE LABEL COMMENTS; Start 09/05/17 at 23:00; Stop 09/08/17 at 22:59; Status DC Lactulose (Lactulose Liq) 30 ml BID PO Last administered on 09/04/17 19:57; Start 08/31/17 at 12:00; Stop 09/25/17 at 09:30; Status DC Lidocaine HCl (Lidocaine Pf 2% Neb) 1 ml Q6HR NEB PRN NEB cough/bronchial irritation; Start 09/16/17 at 11:30 Lisinopril (Prinivil) 40 mg DAILY PO Last administered on 09/04/17 09:07; Start 08/29/17 at 09:00; Stop 09/04/17 at 12:18; Status DC Lorazepam (Ativan Inj) 1 mg ONCE ONCE IV PUSH Last administered on 09/13/17 02:57; Start 09/13/17 at 02:45; Stop 09/13/17 at 02:46; Status DC Lorazepam (Ativan) 1 mg Q12H PO Last administered on 09/09/17 20:27; Start 09/07/17 at 19:00; Stop 09/11/17 at 10:25; Status DC Magnesium Hydroxide (Milk Of Magnesia Liq) 30 ml Q12H PRN PO Mild constipation ; Start 08/29/17 at 00:45; Stop 08/31/17 at 11:08; Status DC Magnesium Citrate (Citroma Liq) 300 ml ONCE ONCE PO Last administered on 08/31 11:57; Start 08/31/17 at 12:00; Stop 08/31/17 at 12:01; Status DC Magnesium Oxide (Mag-Ox) 800 mg UNSCH PRN PO For Magnesium 1.2 - 1.6 mg/dL; Start 08/30/17 at 08:15; Stop 08/31/17 at 13:02; Status DC Magnesium Sulfate 2 gm/Sodium Chloride 100 ml @ 50 mls/hr UNSCH PRN IV For Magnesium 1.2 - 1.6 mg/dL; Start 08/30/17 at 08:15; Stop 08/31/17 at 13:02; Status DC Magnesium Sulfate 4 gm/Sodium Chloride 100 ml @ 50 mls/hr UNSCH PRN IV For Magnesium 0.9 - 1.1 mg/dL; Start 08/30/17 at 08:15; Stop 08/31/17 at 13:02; Status DC Magnesium Sulfate/ Dextrose 100 ml @ 100 mls/hr Q1H IV Last administered on 12:22; Start 08/31/17 at 12:00; Stop 08/31/17 at 13:00; Status DC Methylprednisolone Sodium Succinate (SoluMEDROL INJ) 125 mg ONCE ONCE IV PUSH Last administered on 10/20/17at 13:09; Start 10/20/17 at 12:15; Stop 10/20/17 at 12:16; Status DC Metoclopramide HCl (Reglan Inj) 5 mg Q8HR IV PUSH Last administered on 22:55; Start 09/09/17 at 22:00; Stop 09/11/17 at 10:25; Status DC Metoprolol Tartrate (Lopressor) 25 mg Q8H G-TUBE ; Start 09/25/17 at 13:00; Stop 09/25/17 at 13:00; Status DC Midazolam HCl (Versed Inj) 10 mg ONCE ONCE IV PUSH ; Start 09/08/17 at 13:00; Stop 09/08/17 at 13:41; Status DC Miscellaneous Information 1 [id number] Last administered on 08/29/17 01:00; Start 08/29/17 at 00:45; Stop 10/24/17 at 04:26; Status DC Modafinil (Provigil) 200 mg DAILY PO Last administered on 09/12/17 09:07; Start 09/11/17 at 12:00; Stop 09/25/17 at 09:30; Status DC Morphine Sulfate (Morphine Inj) 2 mg Q3H PRN IM BREAKTHROUGH PAIN Last administered on 11/01/17at 13:25; Start 11/01/17 at 13:00 Nicardipine HCl 25 mg/Sodium Chloride 250 ml @ 50 mls/hr TITRATE PRN IV Blood pressure management Last administered on 09/17/17 04:57; Start 09/13/17 at 02: 45; Stop 09/17/17 at 12:47; Status DC Nicardipine HCl 50 mg/Sodium Chloride 500 ml @ 50 mls/hr TITRATE PRN IV BLOOD PRESSURE MANAGEMENT Last administered on 09/05/17 22:00; Start 09/02/17 at 21 :15; Stop 09/11/17 at 10:25; Status DC Ondansetron HCl (Zofran Inj) 4 mg Q6H PRN IV PUSH NAUSEA OR VOMITING Last administered on 09/11/17 14:18; Start 08/29/17 at 00:45 Oxycodone HCl (Roxicodone Intensol Liq) 5 mg Q4H PRN G-TUBE pain 6-10 Last administered on 11/02/17at 09:47; Start 11/01/17 at 15:00; Stop 11/02/17 at 11:43 ; Status DC Oxycodone HCl (Roxicodone) 10 mg Q4H PRN PO PAIN 6-10 Last administered on 11/03 04:19; Start 11/02/17 at 14:00 Pantoprazole Sodium (Protonix Inj) 40 mg DAILY IV PUSH Last administered on 09:15; Start 08/29/17 at 09:00; Stop 09/11/17 at 10:25; Status DC Pharmacy Profile Note 0 ml @ 0 mls/hr UNSCH OTHER ; Start 09/13/17 at 02:45; Stop 09/17/17 at 10:11; Status DC Piperacillin Sod/ Tazobactam Sod 50 ml @ 100 mls/hr Q6H IV Last administered on 09/19/17 20:26; Start 09/13/17 at 03:00; Stop 09/19/17 at 23:00; Status DC Polyethylene Glycol (Miralax) 17 gm BID G-TUBE Last administered on 10/27/17at 09:41; Start 09/25/17 at 21:00 Potassium Chloride 30 meq/ Sodium Chloride 115 ml @ 38.333 mls/ hr ONCE ONCE IV-CENTRAL Last administered on 09/03/17 13:36; Start 09/03/17 at 14:00; Stop 09/03/17 at 16:59; Status DC Potassium Phosphate (K-Phos) 2,000 mg UNSCH PRN PO/TUBE SEE LABEL COMMENTS; Start 08/30/17 at 08:15; Stop 08/31/17 at 13:02; Status DC Potassium Phosphate 30 mmol/ Sodium Chloride 260 ml @ 42 mls/hr UNSCH PRN IV SEE LABEL COMMENTS; Start 08/30/17 at 08:15; Stop 08/31/17 at 13:02; Status DC Potassium Bicarb/ Potassium Chloride (K-Lyte Cl Eff) 50 meq ONCE ONCE PO Last administered on 09/25/17 05:25; Start 09/25/17 at 04:30; Stop 09/25/17 at 04:31; Status DC Potassium Chloride 100 ml @ 50 mls/hr Q2H IV Last administered on 09/15/17 10 :22; Start 09/15/17 at 08:15; Stop 09/15/17 at 12:14; Status DC Potassium Chloride (KCl Powder) 40 meq ONCE ONCE PEG Last administered on 12:15; Start 09/08/17 at 12:15; Stop 09/08/17 at 12:21; Status DC Potassium Chloride (KCl) 40 meq ONCE ONCE PO ; Start 09/08/17 at 09:00; Stop 09/08/17 at 12:05; Status DC Povidone Iodine (Betadine 5% Antisepsis Kit) 1 applic HVAC MECHANIC PRN EACH NARE SEE LABEL COMMENTS; Start 09/05/17 at 23:00; Stop 09/08/17 at 22:59; Status DC Propofol 100 ml @ 14.352 mls/ hr TITRATE PRN IV SEDATION Last administered on 09/10/17 09:59; Start 08/31/17 at 00:30; Stop 09/11/17 at 10:20; Status DC Propranolol HCl (Inderal) 40 mg Q6HR G-TUBE Last administered on 11/03/17 06: 39; Start 09/25/17 at 12:00 Quetiapine Fumarate (SEROquel) 50 mg Q8HR G-TUBE Last administered on 06:39; Start 09/25/17 at 14:00 Rocuronium Mccomb (Zemuron Inj) 100 mg BOLUS ONCE IV ; Start 09/08/17 at 13: 00; Stop 09/08/17 at 13:44; Status DC Senna/Docusate Sodium (Melina-Colace) 1 tab BID G-TUBE Last administered on 09:37; Start 09/25/17 at 21:00 Sennosides (Senokot) 17.2 mg Q12H PRN PO Moderate constipation; Start at 00:45; Stop 08/31/17 at 11:08; Status DC Silver Nitrate/ Potassium Nitrate (Silver Nitrate Applicators) 1 appl ONCE ONCE TOPICAL Last administered on 09/07/17 10:15; Start 09/07/17 at 10:15; Stop 09/07/17 at 10:47; Status DC Sodium Polystyrene Sulfonate (Kayexalate Liq) 30 gm Q2HR PO Last administered on 09/21/17 19:53; Start 09/21/17 at 16:00; Stop 09/21/17 at 21:00; Status DC Sodium Chloride 250 ml @ 15 mls/hr ONCE ONCE IV ; Start 09/28/17 at 10:15; Stop 09/28/17 at 16:53; Status DC Sodium Chloride (NS Flush) 2 ml UNSCH PRN IVF FLUSH AFTER USING IV ACCESS Last administered on 10/24/17 20:44; Start 08/29/17 at 00:00 Sodium Chloride 38.5 meq/Sterile Water 1,009.625 ml @ 42 mls/hr Q24H IV Last administered on 09/25/17 06:01; Start 09/20/17 at 13:00; Stop 09/25/17 at 09 :24; Status DC Sodium Phosphate 30 mmol/Sodium Chloride 250 ml @ 42 mls/hr UNSCH PRN IV For Phosphorus < 2.5 mg/dL; Start 08/30/17 at 08:15; Stop 08/31/17 at 13:02; Status DC Succinylcholine Chloride (Quelicin Inj) 100 mg ONCE ONCE IV PUSH ; Start 08/29 at 00:00; Stop 08/29/17 at 00:01; Status DC Vancomycin HCl 1500 mg/Sodium Chloride 515 ml @ 257.5 mls/ hr ONCE ONCE IV Last administered on 09/16/17 17:07; Start 09/16/17 at 15:00; Stop 09/16/17 at 16:59; Status DC Vancomycin HCl 2000 mg/Sodium Chloride 520 ml @ 250 mls/hr ONCE ONCE IV Last administered on 09/13/17 05:52; Start 09/13/17 at 04:00; Stop 09/13/17 at 06:04 ; Status DC Vancomycin HCl 2500 mg/Sodium Chloride 525 ml @ 250 mls/hr ONCE ONCE IV Last administered on 09/14/17 12:29; Start 09/14/17 at 12:00; Stop 09/14/17 at 14:05 ; Status DC Water (Free Water) 300 ml Q4HR G-TUBE Last administered on 11/03/17at 04:00; Start 09/18/17 at 12:00 A/P Problem List: (1) Intracranial hemorrhage ICD Code: I62.9 - Nontraumatic intracranial hemorrhage, unspecified Status: Acute Assessment and Plan A/P Acute encephalopathy - improving. Left Thalamic Hemorrhage Intracerebral Hemorrhage - Repeat CT of the head showed improving bleed - Neurosurgery follow-up appreciated; stable for dc to SNF per neurosurgery. - Continue rehabilitation efforts with PT, OT, speech - On Seroquel to control agitated delirium. Roxicodone as needed for pain Anemia likely due to chronic disease. H/H fairly stable. will monitor periodically. Healthcare associated pneumonia finished the course of antibiotic. UTI: treated. Respiratory failure s/p trach - continue neb treatment. -Patient had angioedema, source unclear and was seen by ENT. He was treated with steroids. Per ENT, expect slow improvement. This is resolving. -Appreciate pulmonology following for trach management Respiratory failure s/p trach -pulmonary following. Hyperglycemia - - continue Levemir 18 units SQ q12h - Continue sliding scale insulin with Accu-Cheks. - hemoglobin A1c 9.1. Hypertension - Intermittent hypertension now well controlled - Continue clonidine, amlodipine and propranolol - Continue hydralazine. Nutrition status: - Status post PEG tube - -on diet now per ST. Acute kidney injury, most likely has CKD per nephrology: Renal function stabilized. - monitor renal function periodically. fever/ leukocytosis- now better- will monitor for now. pain to the right leg. DVT with no evidence of DVT- continue pain control. diplopia neurosurgery f/u appreciated and recommended ophthalmology consult; ophthalmology will be consulted. Physical deconditioning/right sided hemiparesis - OOB to stretcher chair daily - PT/OT following AND SPEECH PROPH: - SCD's. Pepcid for GI prophylaxis Discharge Planning dc to [place] soon. awaiting ophthalmology evaluation. d/w the case management. Zoë Rivas MD Nov 03, 2017 12:22
[2017-11-03] MEDS: ATORVASTATIN 40 MG TAB DOBHOFF SCH (21:40)
[2017-11-04] VITALS (13 sets, daily range): BP systolic 107–166; BP diastolic 60–96; PULSE 76–100; RESP 18–20; TEMP 99.1–100.3; O2SAT 93–98
[2017-11-04] MEDS: FREE WATER G-TUBE SCH ×6 (04:00→22:17)
[2017-11-04] MEDS: QUEtiapine FUMARATE 25 MG TAB G-TUBE SCH ×3 (05:52→22:16)
[2017-11-04] MEDS: PROPRANOLOL HCL 40 MG TAB G-TUBE SCH ×3 (05:52→18:00)
[2017-11-04] MEDS: hydrALAZINE HCL 100 MG TAB G-TUBE SCH ×3 (05:52→22:16)
[2017-11-04] MEDS: cloNIDine HCL 0.3 MG TAB G-TUBE SCH ×3 (05:52→22:16)
[2017-11-04] MEDS: INSULIN ASPART SUPPLEMENTAL SCALE SQ SCH ×3 (05:53→18:00)
[2017-11-04] MEDS: POLYETHYLENE GLYCOL 17 GM PKG G-TUBE SCH ×2 (08:58→21:00)
[2017-11-04] MEDS: CHLORHEXIDINE GLUCONATE 0.12% 15 ML CUP SWISH-SPIT SCH ×3 (09:00→18:00)
[2017-11-04] MEDS: DOCUSATE SODIUM 50 MG/SENNA 8.6 MG TAB G-TUBE SCH ×3 (09:00→21:00)
[2017-11-04] MEDS: GABAPENTIN 100 MG CAP PO SCH ×3 (09:07→18:00)
[2017-11-04] MEDS: FAMOTIDINE 20 MG TAB NG SCH ×2 (09:07→22:16)
[2017-11-04] MEDS: FLUTICASONE PROPIONATE 50 MCG/ACT 16 GM NASAL SPRAY EACH NARE SCH (09:08)
[2017-11-04] MEDS: INSULIN DETEMIR 100 UNITS/ML VIAL SQ SCH ×2 (09:08→22:17)
--- NOTE | 2017-11-04 11:00 | HHI.PR ---
Subjective Remarks in no acute distress. pain to the right leg is better. afebrile. no new complaints. Objective Vitals Vital Signs Date Time Temp Pulse Resp B/P (MAP) Pulse Ox O2 Delivery O2 Flow Rate FiO2 11/04/17 08:02 85 11/04/17 07:56 99.2 85 20 107/60 (76) 94 11/04/17 05:57 88 166/95 (118) 94 11/04/17 04:00 99.1 76 18 124/73 (90) 94 11/04/17 04:00 89 11/04/17 04:00 Room Air 11/04/17 00:57 99.4 96 20 123/69 (87) 96 11/04/17 00:17 94 21 11/04/17 00:15 100 11/04/17 00:00 Room Air 11/03/17 21:27 99.8 96 20 180/102 (128) 94 11/03/17 20:00 96 11/03/17 20:00 Room Air 11/03/17 16:12 98.4 99 19 158/86 (110) 95 11/03/17 16:00 98 11/03/17 12:11 98.8 90 18 159/77 (104) 94 11/03/17 12:00 87 I/O 11/03/17 11/03/17 11/03/17 11/04/17 11/04/17 11/04/17 06:59 14:59 22:59 06:59 14:59 22:59 Intake Total 360 ml 200 ml Output Total 400 ml 2000 ml 650 ml Balance -400 ml -1640 ml -450 ml Intake Oral 360 ml 200 ml Output Urine Total 400 ml 2000 ml 650 ml # Bowel Movements 1 0 Result Diagram: 11/01/17 0811 10/31/17 0340 Imaging Last Impressions Lower Extremity Ultrasound 11/02/17 0000 Signed Impressions: Service Date/Time: Thursday, November 02, 2017 13:14 - CONCLUSION: 1. No sonographic evidence for right lower extremity DVT. Darrell Robles MD Chest X-Ray 10/31/17 0000 Signed Impressions: Service Date/Time: Tuesday, October 31, 2017 13:18 - CONCLUSION: Possible mild CHF. K. Luigi Malik MD Head CT 10/27/17 1001 Signed Impressions: Service Date/Time: Friday, October 27, 2017 10:55 - CONCLUSION: 1. Small area of encephalomalacia in the left basal ganglia corresponding to the area of hemorrhage seen on the previous exam. No new areas of hemorrhage are seen. No significant mass effect is identified. Ant Reece MD Maxillofacial CT 09/16/17 0000 Signed Impressions: Service Date/Time: September 01:03 - CONCLUSION: 1. Evidence of acute pansinusitis. 2. Opacification of multiple bilateral mastoid air cells most characteristic of mastoiditis. 3. Mildly prominent cervical chain nodes which may be reactive. Angelo Conn MD Upper Extremity Ultrasound 09/15/17 0000 Signed Impressions: Service Date/Time: Friday, September 15, 2017 17:14 - CONCLUSION: Occlusive thrombus within the left cephalic vein and nonocclusive thrombus within the right cephalic vein. Ric Jack MD Chest CT 09/13/17 0000 Signed Impressions: Service Date/Time: Wednesday, September 13, 2017 09:28 - CONCLUSION: 1. Bibasilar and left lingular dependent atelectatic changes. Lungs are otherwise clear. 2. Tracheostomy tube with the tip probably positioned above the connie. 3. Compensated cardiomegaly. Reyes Guzman MD Abdomen/Pelvis CT 09/13/17 0000 Signed Impressions: Service Date/Time: Wednesday, September 13, 2017 09:28 - CONCLUSION: 1. There is some stranding in the retroperitoneal perivascular tissues around the distal aorta extending into the bifurcation with a regional borderline lymph nodes. Findings are characteristic of a nonspecific inflammatory process. Findings could represent early retroperitoneal fibrosis.. 2. Urinary bladder is decompressed with some mural thickening in pericystic inflammatory changes possibly representing a chronic cystitis. Nondependent air could be associated with a recent catheterization/instrumentation. 3. Small umbilical and right inguinal hernias only contain fat. 4. Bilateral dependent basilar and left lingular atelectatic changes. Heart size is borderline prominent. 5. Otherwise , bowel is intact without obstruction to explain abdominal distention Reyes Guzman MD Abdomen X-Ray 09/10/17 0600 Signed Impressions: Service Date/Time: Sunday, September 10, 2017 03:56 - CONCLUSION: No significant abnormality is identified. There is mild distention of the colon but there are no findings to suggest bowel obstruction or significant ileus. Ignacio Underwood MD Liver Ultrasound 09/07/17 0000 Signed Impressions: Service Date/Time: Thursday, September 07, 2017 12:37 - CONCLUSION: 1. Unremarkable sonographic appearance of the liver. No evidence for hepatic volume loss or intrahepatic ductal dilatation. 2. No sonographic evidence for cholelithiasis or acute cholecystitis. 3. Mild increased right renal echogenicity may reflect medical renal disease. 4. Small bilateral pleural effusions. 5. Pancreas and inferior pole of the right kidney are obscured by bowel gas and therefore not evaluated. Darrell Robles MD Renal Ultrasound 08/31/17 0000 Signed Impressions: Service Date/Time: Thursday, August 31, 2017 17:42 - CONCLUSION: 1. No evidence of hydronephrosis on either side. 2. Solitary linear echogenic focus in the upper pole parenchyma of the right kidney has similar features to prior examination in January 2017 and possibly represents a calcification. David Snell MD Neck CTA 08/28/177 Signed Impressions: Service Date/Time: Tuesday, August 29, 2017 00:13 - CONCLUSION: Negative carotid CTA. David Snell MD Head CTA 08/28/177 Signed Impressions: Service Date/Time: Tuesday, August 29, 2017 00:13 - CONCLUSION: 1. No evidence of vessel truncation or aneurysm. 2. No abnormal vessels in the region of the large left thalamic hemorrhage. David Snell MD Objective Remarks GENERAL: in no apparent distress. Neck; trach in place. CARDIOVASCULAR: Regular rate and irregular rhythm without murmurs, gallops, or rubs. RESPIRATORY: Clear to auscultation. Breath sounds equal bilaterally. No wheezes , rales, or rhonchi. GASTROINTESTINAL: Abdomen soft, non-tender, nondistended. Normal, active bowel sounds-PEG in place. MUSCULOSKELETAL: Extremities without clubbing, cyanosis, or edema. NEURO: awake. Procedures Tracheostomy and PEG placement Medications and IVs Inpatient Medications Acetaminophen (Tylenol) 650 mg Q6H PRN G-TUBE PAIN 1-5 AND/OR FEVER >101F Last administered on 10/15/17at 23:34; Start 09/25/17 at 12:45 Albuterol Sulfate (Albuterol Neb) 2.5 mg Q2HR NEB PRN NEB sob/wheeze Last administered on 11/03/17 06:06; Start 09/25/17 at 13:30 Albuterol/ Ipratropium (Duoneb Neb) 1 ampule Q6HR NEB NEB Last administered on 10/27/17 10:00; Start 10/23/17 at 16:00; Stop 10/27/17 at 13:18; Status DC Amlodipine Besylate (Norvasc) 10 mg DAILY G-TUBE Last administered on 09:37; Start 09/26/17 at 09:00 Atorvastatin Calcium (Lipitor) 40 mg HS DOBHOFF Last administered on 11/03/17 21:40; Start 09/25/17 at 21:00 Bisacodyl (Dulcolax Supp) 10 mg DAILY RECTAL Last administered on 08/31/17 11 :58; Start 08/31/17 at 12:00; Stop 09/25/17 at 09:30; Status DC Calcium Acetate (Phoslo) 667 mg TID PO Last administered on 09/08/17 10:38; Start 08/31/17 at 18:00; Stop 09/08/17 at 11:02; Status DC Cefuroxime Axetil (Ceftin) 500 mg Q12HR PO Last administered on 10/03/17 09: 03; Start 09/26/17 at 11:15; Stop 10/03/17 at 11:14; Status DC Chlorhexidine Gluconate (Chlorhexidine 2% Cloth) 3 pack CAFETERIA HELPER PRN TOPICAL SEE LABEL COMMENTS; Start 09/05/17 at 23:00; Stop 09/08/17 at 22:59; Status DC Chlorhexidine Gluconate (Peridex 0.12% Liq) 15 ml TID SWISH-SPIT Last administered on 11/03/17 09:36; Start 10/11/17 at 18:00 Clonidine (Catapres) 0.3 mg Q8HR G-TUBE Last administered on 11/04/17 05:52; Start 09/25/17 at 14:00 Dantrolene Sodium (Dantrium Inj) 70 mg ONCE ONCE IV Last administered on 03:55; Start 09/13/17 at 03:00; Stop 09/13/17 at 03:01; Status DC Desmopressin Acetate (Ddavp Tae Spr) 1 spray ONCE ONCE EACH NARE Last administered on 09/07/17 15:00; Start 09/07/17 at 15:00; Stop 09/07/17 at 15 :01; Status DC Dexamethasone Sodium Phosphate (Decadron Inj) 6 mg Q12HR IV PUSH Last administered on 09/20/17 09:26; Start 09/17/17 at 21:00; Stop 09/20/17 at 20: 59; Status DC Dexmedetomidine HCl 50 ml @ 29.9 mls/hr TITRATE IV ; Start 08/30/17 at 14:15; Stop 08/30/17 at 14:46; Status DC Dexmedetomidine HCl 1000 mcg/ Sodium Chloride 250 ml @ 29.9 mls/hr TITRATE IV Last administered on 08/30/17 17:58; Start 08/30/17 at 16:45; Stop 08/31/17 at 06:14; Status DC Dexmedetomidine HCl 200 mcg/ Sodium Chloride 50 ml @ 29.9 mls/hr TITRATE IV Last administered on 08/30/17 15:27; Start 08/30/17 at 15:00; Stop 08/30/17 at 16:42; Status DC Dextrose 1,000 ml @ 42 mls/hr [id number] IV Last administered on 09/20/17 09:25 ; Start 09/19/17 at 08:45; Stop 09/20/17 at 11:39; Status DC Dextrose (D50w (Vial) Inj) 25 ml UNSCH PRN IV PUSH HYPOGLYCEMIA-SEE COMMENTS; Start 09/18/17 at 12:00 Diphenhydramine HCl (Benadryl Inj) 25 mg Q6H IV PUSH Last administered on 08:06; Start 09/15/17 at 15:00; Stop 09/18/17 at 14:59; Status DC Etomidate (Amidate Inj) 20 mg ONCE ONCE IVP ; Start 08/29/17 at 00:00; Stop 08/29/17 at 00:01; Status DC Famotidine (Pepcid) 20 mg BID NG Last administered on 11/04/17 09:07; Start 09/24/17 at 09:30 Fentanyl Citrate 250 ml @ 5 mls/hr TITRATE PRN IV SEDATION Last administered on 09/11/17 06:14; Start 08/29/17 at 00:45; Stop 09/11/17 at 10:20; Status DC Fluticasone Propionate (Flonase Tae Spr) 2 spray DAILY EACH NARE Last administered on 11/04/17 09:08; Start 09/05/17 at 17:00 Gabapentin (Neurontin) 100 mg TID PO Last administered on 11/04/17 09:07; Start 10/26/17 at 13:00 Gelatin (Gelfoam 12 Mm/7 Mm Top) 1 foam Q2HR PRN TOPICAL if still bleeding from peg Last administered on 09/08/17 08:00; Start 09/07/17 at 19:45 Glucagon (Glucagon Inj) 1 mg UNSCH PRN OTHER HYPOGLYCEMIA-SEE COMMENTS; Start 09/25/17 at 09:30 Haloperidol Lactate (Haldol Inj) 5 mg Q4H PRN IV agitation Last administered on 09/12/17 23:04; Start 08/31/17 at 11:00; Stop 09/25/17 at 09:30; Status DC Heparin Sodium (Porcine) (Heparin Inj) 5,000 units Q12HR SQ Last administered on 09/28/17 08:20; Start 09/11/17 at 21:00; Status Future Hold Hydralazine HCl (Apresoline Inj) 10 mg Q30M PRN IV PUSH sbp > 160 Last administered on 09/19/17 09:08; Start 08/30/17 at 08:15 Hydralazine HCl (Apresoline) 100 mg Q8HR G-TUBE Last administered on 11/04/17 05:52; Start 09/25/17 at 14:00 Hydrochlorothiazide (Hydrodiuril) 25 mg DAILY PO Last administered on 10:37; Start 08/29/17 at 09:00; Stop 09/08/17 at 11:02; Status DC Insulin Aspart (NovoLOG SUPPLEMENTAL SCALE) 1 Q6H SQ Last administered on 06:13; Start 09/25/17 at 12:00 Insulin Detemir (Levemir Inj) 15 units Q12H SQ Last administered on 1/25/18at 09:08; Start 11/01/17 at 22:00 Insulin Human Regular (NovoLIN R SUPPLEMENTAL SCALE) 1 Q4HR SQ Last administered on 09/25/17 04:09; Start 09/18/17 at 12:00; Stop 09/25/17 at 09: 28; Status DC Insulin Human Regular (NovoLIN R INJ) See Protocol Table ... CAFETERIA HELPER PRN SQ SEE PROTOCOL TABLE; Start 09/05/17 at 23:00; Stop 09/08/17 at 22:59; Status DC Labetalol HCl (Trandate Inj) 10 mg Q20M PRN IV PUSH SBP>140, DBP>90 Last administered on 09/19/17 02:16; Start 08/29/17 at 00:45 Labetalol HCl (Trandate) 300 mg NOW ONCE PEG Last administered on 09/17/17 04 :23; Start 09/17/17 at 04:15; Stop 09/17/17 at 04:16; Status DC Lactated Ringer's 1,000 ml @ 30 mls/hr Q24H PRN IV SEE LABEL COMMENTS; Start 09/05/17 at 23:00; Stop 09/08/17 at 22:59; Status DC Lactulose (Lactulose Liq) 30 ml BID PO Last administered on 09/04/17 19:57; Start 08/31/17 at 12:00; Stop 09/25/17 at 09:30; Status DC Lidocaine HCl (Lidocaine Pf 2% Neb) 1 ml Q6HR NEB PRN NEB cough/bronchial irritation; Start 09/16/17 at 11:30 Lisinopril (Prinivil) 40 mg DAILY PO Last administered on 09/04/17 09:07; Start 08/29/17 at 09:00; Stop 09/04/17 at 12:18; Status DC Lorazepam (Ativan Inj) 1 mg ONCE ONCE IV PUSH Last administered on 09/13/17 02:57; Start 09/13/17 at 02:45; Stop 09/13/17 at 02:46; Status DC Lorazepam (Ativan) 1 mg Q12H PO Last administered on 09/09/17 20:27; Start 09/07/17 at 19:00; Stop 09/11/17 at 10:25; Status DC Magnesium Hydroxide (Milk Of Magnesia Liq) 30 ml Q12H PRN PO Mild constipation ; Start 08/29/17 at 00:45; Stop 08/31/17 at 11:08; Status DC Magnesium Citrate (Citroma Liq) 300 ml ONCE ONCE PO Last administered on 08/31 11:57; Start 08/31/17 at 12:00; Stop 08/31/17 at 12:01; Status DC Magnesium Oxide (Mag-Ox) 800 mg UNSCH PRN PO For Magnesium 1.2 - 1.6 mg/dL; Start 08/30/17 at 08:15; Stop 08/31/17 at 13:02; Status DC Magnesium Sulfate 2 gm/Sodium Chloride 100 ml @ 50 mls/hr UNSCH PRN IV For Magnesium 1.2 - 1.6 mg/dL; Start 08/30/17 at 08:15; Stop 08/31/17 at 13:02; Status DC Magnesium Sulfate 4 gm/Sodium Chloride 100 ml @ 50 mls/hr UNSCH PRN IV For Magnesium 0.9 - 1.1 mg/dL; Start 08/30/17 at 08:15; Stop 08/31/17 at 13:02; Status DC Magnesium Sulfate/ Dextrose 100 ml @ 100 mls/hr Q1H IV Last administered on 12:22; Start 08/31/17 at 12:00; Stop 08/31/17 at 13:00; Status DC Methylprednisolone Sodium Succinate (SoluMEDROL INJ) 125 mg ONCE ONCE IV PUSH Last administered on 10/20/17at 13:09; Start 10/20/17 at 12:15; Stop 10/20/17 at 12:16; Status DC Metoclopramide HCl (Reglan Inj) 5 mg Q8HR IV PUSH Last administered on 22:55; Start 09/09/17 at 22:00; Stop 09/11/17 at 10:25; Status DC Metoprolol Tartrate (Lopressor) 25 mg Q8H G-TUBE ; Start 09/25/17 at 13:00; Stop 09/25/17 at 13:00; Status DC Midazolam HCl (Versed Inj) 10 mg ONCE ONCE IV PUSH ; Start 09/08/17 at 13:00; Stop 09/08/17 at 13:41; Status DC Miscellaneous Information 1 [id number] Last administered on 08/29/17 01:00; Start 08/29/17 at 00:45; Stop 10/24/17 at 04:26; Status DC Modafinil (Provigil) 200 mg DAILY PO Last administered on 09/12/17 09:07; Start 09/11/17 at 12:00; Stop 09/25/17 at 09:30; Status DC Morphine Sulfate (Morphine Inj) 2 mg Q3H PRN IM BREAKTHROUGH PAIN Last administered on 11/01/17 13:25; Start 11/01/17 at 13:00 Nicardipine HCl 25 mg/Sodium Chloride 250 ml @ 50 mls/hr TITRATE PRN IV Blood pressure management Last administered on 09/17/17 04:57; Start 09/13/17 at 02: 45; Stop 09/17/17 at 12:47; Status DC Nicardipine HCl 50 mg/Sodium Chloride 500 ml @ 50 mls/hr TITRATE PRN IV BLOOD PRESSURE MANAGEMENT Last administered on 09/05/17 22:00; Start 09/02/17 at 21 :15; Stop 09/11/17 at 10:25; Status DC Ondansetron HCl (Zofran Inj) 4 mg Q6H PRN IV PUSH NAUSEA OR VOMITING Last administered on 09/11/17 14:18; Start 08/29/17 at 00:45 Oxycodone HCl (Roxicodone Intensol Liq) 5 mg Q4H PRN G-TUBE pain 6-10 Last administered on 11/02/17at 09:47; Start 11/01/17 at 15:00; Stop 11/02/17 at 11:43 ; Status DC Oxycodone HCl (Roxicodone) 10 mg Q4H PRN PO PAIN 6-10 Last administered on 11/04 09:07; Start 11/02/17 at 14:00 Pantoprazole Sodium (Protonix Inj) 40 mg DAILY IV PUSH Last administered on 09:15; Start 08/29/17 at 09:00; Stop 09/11/17 at 10:25; Status DC Pharmacy Profile Note 0 ml @ 0 mls/hr UNSCH OTHER ; Start 09/13/17 at 02:45; Stop 09/17/17 at 10:11; Status DC Piperacillin Sod/ Tazobactam Sod 50 ml @ 100 mls/hr Q6H IV Last administered on 09/19/17 20:26; Start 09/13/17 at 03:00; Stop 09/19/17 at 23:00; Status DC Polyethylene Glycol (Miralax) 17 gm BID G-TUBE Last administered on 10/27/17at 09:41; Start 09/25/17 at 21:00 Potassium Chloride 30 meq/ Sodium Chloride 115 ml @ 38.333 mls/ hr ONCE ONCE IV-CENTRAL Last administered on 09/03/17 13:36; Start 09/03/17 at 14:00; Stop 09/03/17 at 16:59; Status DC Potassium Phosphate (K-Phos) 2,000 mg UNSCH PRN PO/TUBE SEE LABEL COMMENTS; Start 08/30/17 at 08:15; Stop 08/31/17 at 13:02; Status DC Potassium Phosphate 30 mmol/ Sodium Chloride 260 ml @ 42 mls/hr UNSCH PRN IV SEE LABEL COMMENTS; Start 08/30/17 at 08:15; Stop 08/31/17 at 13:02; Status DC Potassium Bicarb/ Potassium Chloride (K-Lyte Cl Eff) 50 meq ONCE ONCE PO Last administered on 09/25/17 05:25; Start 09/25/17 at 04:30; Stop 09/25/17 at 04:31; Status DC Potassium Chloride 100 ml @ 50 mls/hr Q2H IV Last administered on 09/15/17 10 :22; Start 09/15/17 at 08:15; Stop 09/15/17 at 12:14; Status DC Potassium Chloride (KCl Powder) 40 meq ONCE ONCE PEG Last administered on 12:15; Start 09/08/17 at 12:15; Stop 09/08/17 at 12:21; Status DC Potassium Chloride (KCl) 40 meq ONCE ONCE PO ; Start 09/08/17 at 09:00; Stop 09/08/17 at 12:05; Status DC Povidone Iodine (Betadine 5% Antisepsis Kit) 1 applic CAFETERIA HELPER PRN EACH NARE SEE LABEL COMMENTS; Start 09/05/17 at 23:00; Stop 09/08/17 at 22:59; Status DC Propofol 100 ml @ 14.352 mls/ hr TITRATE PRN IV SEDATION Last administered on 09/10/17 09:59; Start 08/31/17 at 00:30; Stop 09/11/17 at 10:20; Status DC Propranolol HCl (Inderal) 40 mg Q6HR G-TUBE Last administered on 11/04/17 05: 52; Start 09/25/17 at 12:00 Quetiapine Fumarate (SEROquel) 50 mg Q8HR G-TUBE Last administered on 05:52; Start 09/25/17 at 14:00 Rocuronium [place] (Zemuron Inj) 100 mg BOLUS ONCE IV ; Start 09/08/17 at 13: 00; Stop 09/08/17 at 13:44; Status DC Senna/Docusate Sodium (Melina-Colace) 1 tab BID G-TUBE Last administered on 09:07; Start 09/25/17 at 21:00 Sennosides (Senokot) 17.2 mg Q12H PRN PO Moderate constipation; Start at 00:45; Stop 08/31/17 at 11:08; Status DC Silver Nitrate/ Potassium Nitrate (Silver Nitrate Applicators) 1 appl ONCE ONCE TOPICAL Last administered on 09/07/17 10:15; Start 09/07/17 at 10:15; Stop 09/07/17 at 10:47; Status DC Sodium Polystyrene Sulfonate (Kayexalate Liq) 30 gm Q2HR PO Last administered on 09/21/17 19:53; Start 09/21/17 at 16:00; Stop 09/21/17 at 21:00; Status DC Sodium Chloride 250 ml @ 15 mls/hr ONCE ONCE IV ; Start 09/28/17 at 10:15; Stop 09/28/17 at 16:53; Status DC Sodium Chloride (NS Flush) 2 ml UNSCH PRN IVF FLUSH AFTER USING IV ACCESS Last administered on 10/24/17 20:44; Start 08/29/17 at 00:00 Sodium Chloride 38.5 meq/Sterile Water 1,009.625 ml @ 42 mls/hr Q24H IV Last administered on 09/25/17 06:01; Start 09/20/17 at 13:00; Stop 09/25/17 at 09 :24; Status DC Sodium Phosphate 30 mmol/Sodium Chloride 250 ml @ 42 mls/hr UNSCH PRN IV For Phosphorus < 2.5 mg/dL; Start 08/30/17 at 08:15; Stop 08/31/17 at 13:02; Status DC Succinylcholine Chloride (Quelicin Inj) 100 mg ONCE ONCE IV PUSH ; Start 08/29 at 00:00; Stop 08/29/17 at 00:01; Status DC Vancomycin HCl 1500 mg/Sodium Chloride 515 ml @ 257.5 mls/ hr ONCE ONCE IV Last administered on 09/16/17 17:07; Start 09/16/17 at 15:00; Stop 09/16/17 at 16:59; Status DC Vancomycin HCl 2000 mg/Sodium Chloride 520 ml @ 250 mls/hr ONCE ONCE IV Last administered on 09/13/17 05:52; Start 09/13/17 at 04:00; Stop 09/13/17 at 06:04 ; Status DC Vancomycin HCl 2500 mg/Sodium Chloride 525 ml @ 250 mls/hr ONCE ONCE IV Last administered on 09/14/17 12:29; Start 09/14/17 at 12:00; Stop 09/14/17 at 14:05 ; Status DC Water (Free Water) 300 ml Q4HR G-TUBE Last administered on 11/03/17at 20:00; Start 09/18/17 at 12:00 A/P Problem List: (1) Intracranial hemorrhage ICD Code: I62.9 - Nontraumatic intracranial hemorrhage, unspecified Status: Acute Assessment and Plan A/P Acute encephalopathy - improving. Left Thalamic Hemorrhage Intracerebral Hemorrhage - Repeat CT of the head showed improving bleed - Neurosurgery follow-up appreciated; stable for dc to SNF per neurosurgery. - Continue rehabilitation efforts with PT, OT, speech - On Seroquel to control agitated delirium. Roxicodone as needed for pain Anemia likely due to chronic disease. H/H fairly stable. will monitor periodically. Healthcare associated pneumonia finished the course of antibiotic. UTI: treated. Respiratory failure s/p trach - continue neb treatment. -tracheostomy tube will be removed today. -pulmonary following. Hyperglycemia - - continue Levemir 15 units SQ q12h - Continue sliding scale insulin with Accu-Cheks. - hemoglobin A1c 9.1. Hypertension - Intermittent hypertension now well controlled - Continue clonidine, amlodipine and propranolol - Continue hydralazine. Nutrition status: - Status post PEG tube - -on diet now per ST. -will start calorie count. Acute kidney injury, most likely has CKD per nephrology: Renal function stabilized. - monitor renal function periodically. fever/ leukocytosis- now better- will monitor for now. pain to the right leg. DVT with no evidence of DVT- continue pain control. diplopia neurosurgery f/u appreciated and recommended ophthalmology consult; ophthalmology consulted. Physical deconditioning/right sided hemiparesis - OOB to stretcher chair daily - PT/OT following AND SPEECH PROPH: - SCD's. Pepcid for GI prophylaxis Discharge Planning dc to [facility] soon. awaiting ophthalmology evaluation. previously d/w the case management. Zoë Rivas MD Nov 04, 2017 11:00
--- NOTE | 2017-11-04 16:57 | HHI.PR ---
Subjective Remarks ALERT NO DISTRESS TRACH tube removed Objective Vital Signs Date Time Temp Pulse Resp B/P (MAP) Pulse Ox O2 Delivery O2 Flow Rate FiO2 11/04/17 16:00 Room Air 11/04/17 12:00 Room Air 11/04/17 12:00 99.3 92 18 121/72 (88) 93 11/04/17 10:35 98 21 11/04/17 08:02 85 11/04/17 08:00 Room Air 11/04/17 07:56 99.2 85 20 107/60 (76) 94 11/04/17 05:57 88 166/95 (118) 94 11/04/17 04:00 99.1 76 18 124/73 (90) 94 11/04/17 04:00 89 11/04/17 04:00 Room Air 11/04/17 00:57 99.4 96 20 123/69 (87) 96 11/04/17 00:17 94 21 11/04/17 00:15 100 11/04/17 00:00 Room Air 11/03/17 21:27 99.8 96 20 180/102 (128) 94 11/03/17 20:00 96 11/03/17 20:00 Room Air I/O 11/03/17 11/03/17 11/03/17 11/04/17 11/04/17 11/04/17 07:00 15:00 23:00 07:00 15:00 23:00 Intake Total 360 ml 200 ml Output Total 400 ml 2000 ml 650 ml Balance -400 ml -1640 ml -450 ml Intake Oral 360 ml 200 ml Output Urine Total 400 ml 2000 ml 650 ml # Bowel Movements 1 0 Result Diagram: 11/01/17 0811 10/31/17 0340 Objective Remarks GENERAL: SKIN: Warm and dry. HEAD: Atraumatic. Normocephalic. EYES: Pupils equal and round. No scleral icterus. No injection or drainage. ENT: No nasal bleeding or discharge. Mucous membranes pink and moist. NECK: Trachea midline. No JVD. CARDIOVASCULAR: Regular rate and rhythm. RESPIRATORY: No accessory muscle use. Clear to auscultation. Breath sounds equal bilaterally. GASTROINTESTINAL: Abdomen soft, non-tender, nondistended. Hepatic and splenic margins not palpable. MUSCULOSKELETAL: Extremities without clubbing, cyanosis, or edema. No obvious deformities. NEUROLOGICAL: Awake and alert. No obvious cranial nerve deficits. Motor grossly within normal limits. Five out of 5 muscle strength in the arms and legs. Normal speech. PSYCHIATRIC: Appropriate mood and affect; insight and judgment normal. Assessment and Plan Assessment and Plan RESPIRATORY FAILURE S/P CVA OBESITY HTN PLAN O2 NEEDED PULM TOILET INCREASE ACTIVITY Wang Piña MD Nov 04, 2017 16:57
[2017-11-04] MEDS: ATORVASTATIN 40 MG TAB DOBHOFF SCH (22:16)
[2017-11-05] VITALS (7 sets, daily range): BP systolic 99–134; BP diastolic 58–74; PULSE 81–90; RESP 16–18; TEMP 97.7–100.8; O2SAT 91–96
[2017-11-05] MEDS: FREE WATER G-TUBE SCH ×6 (03:34→21:37)
[2017-11-05] MEDS: INSULIN ASPART SUPPLEMENTAL SCALE SQ SCH ×4 (05:17→18:16)
[2017-11-05] MEDS: QUEtiapine FUMARATE 25 MG TAB G-TUBE SCH ×3 (05:36→21:36)
[2017-11-05] MEDS: hydrALAZINE HCL 100 MG TAB G-TUBE SCH ×3 (05:36→21:36)
[2017-11-05] MEDS: PROPRANOLOL HCL 40 MG TAB G-TUBE SCH ×4 (05:37→18:00)
[2017-11-05] MEDS: cloNIDine HCL 0.3 MG TAB G-TUBE SCH ×3 (05:37→21:36)
[2017-11-05] MEDS: CHLORHEXIDINE GLUCONATE 0.12% 15 ML CUP SWISH-SPIT SCH ×3 (09:00→18:00)
[2017-11-05] MEDS: DOCUSATE SODIUM 50 MG/SENNA 8.6 MG TAB G-TUBE SCH ×2 (09:00→21:00)
[2017-11-05] MEDS: POLYETHYLENE GLYCOL 17 GM PKG G-TUBE SCH ×2 (09:00→21:00)
[2017-11-05] MEDS: FAMOTIDINE 20 MG TAB NG SCH ×2 (09:32→21:36)
[2017-11-05] MEDS: GABAPENTIN 100 MG CAP PO SCH ×3 (09:32→18:15)
[2017-11-05] MEDS: FLUTICASONE PROPIONATE 50 MCG/ACT 16 GM NASAL SPRAY EACH NARE SCH (09:33)
[2017-11-05] MEDS: INSULIN DETEMIR 100 UNITS/ML VIAL SQ SCH ×2 (09:33→21:37)
--- NOTE | 2017-11-05 12:54 | HHI.PR ---
Subjective Remarks resting comfortably with no distress. pain to the right leg is better. had a low grade fever earlier. overall doing better. Objective Vitals Vital Signs Date Time Temp Pulse Resp B/P (MAP) Pulse Ox O2 Delivery O2 Flow Rate FiO2 11/05/17 11:12 93 11/05/17 08:12 97.7 81 17 104/58 (73) 93 11/05/17 08:00 Room Air 11/05/17 04:00 99.3 90 16 118/70 (86) 92 11/05/17 00:00 100.8 87 16 99/74 (82) 93 11/04/17 20:00 100.3 86 18 127/96 (106) 94 11/04/17 20:00 96 Room Air 11/04/17 16:00 99.5 86 18 108/70 (83) 96 11/04/17 16:00 Room Air 11/04/17 15:58 89 I/O 11/04/17 11/04/17 11/04/17 11/05/17 11/05/17 11/05/17 06:59 14:59 22:59 06:59 14:59 22:59 Intake Total 200 ml 540 ml Output Total 650 ml 450 ml 750 ml Balance -450 ml 90 ml -750 ml Intake Oral 200 ml 540 ml Output Urine Total 650 ml 450 ml 750 ml # Bowel Movements 0 0 Result Diagram: 11/01/17 0811 Imaging Last Impressions Lower Extremity Ultrasound 11/02/17 0000 Signed Impressions: Service Date/Time: Thursday, November 02, 2017 13:14 - CONCLUSION: 1. No sonographic evidence for right lower extremity DVT. Darrell Robles MD Chest X-Ray 10/31/17 0000 Signed Impressions: Service Date/Time: Tuesday, October 31, 2017 13:18 - CONCLUSION: Possible mild CHF. K. Luigi Malik MD Head CT 10/27/17 1001 Signed Impressions: Service Date/Time: Friday, October 27, 2017 10:55 - CONCLUSION: 1. Small area of encephalomalacia in the left basal ganglia corresponding to the area of hemorrhage seen on the previous exam. No new areas of hemorrhage are seen. No significant mass effect is identified. Ant Reece MD Maxillofacial CT 09/16/17 0000 Signed Impressions: Service Date/Time: September 01:03 - CONCLUSION: 1. Evidence of acute pansinusitis. 2. Opacification of multiple bilateral mastoid air cells most characteristic of mastoiditis. 3. Mildly prominent cervical chain nodes which may be reactive. Angelo Conn MD Upper Extremity Ultrasound 09/15/17 0000 Signed Impressions: Service Date/Time: Friday, September 15, 2017 17:14 - CONCLUSION: Occlusive thrombus within the left cephalic vein and nonocclusive thrombus within the right cephalic vein. Ric Jack MD Chest CT 09/13/17 0000 Signed Impressions: Service Date/Time: Wednesday, September 13, 2017 09:28 - CONCLUSION: 1. Bibasilar and left lingular dependent atelectatic changes. Lungs are otherwise clear. 2. Tracheostomy tube with the tip probably positioned above the connie. 3. Compensated cardiomegaly. Reyes Guzman MD Abdomen/Pelvis CT 09/13/17 0000 Signed Impressions: Service Date/Time: Wednesday, September 13, 2017 09:28 - CONCLUSION: 1. There is some stranding in the retroperitoneal perivascular tissues around the distal aorta extending into the bifurcation with a regional borderline lymph nodes. Findings are characteristic of a nonspecific inflammatory process. Findings could represent early retroperitoneal fibrosis.. 2. Urinary bladder is decompressed with some mural thickening in pericystic inflammatory changes possibly representing a chronic cystitis. Nondependent air could be associated with a recent catheterization/instrumentation. 3. Small umbilical and right inguinal hernias only contain fat. 4. Bilateral dependent basilar and left lingular atelectatic changes. Heart size is borderline prominent. 5. Otherwise , bowel is intact without obstruction to explain abdominal distention Reyes Guzman MD Abdomen X-Ray 09/10/17 0600 Signed Impressions: Service Date/Time: Sunday, September 10, 2017 03:56 - CONCLUSION: No significant abnormality is identified. There is mild distention of the colon but there are no findings to suggest bowel obstruction or significant ileus. Ignacio Underwood MD Liver Ultrasound 09/07/17 0000 Signed Impressions: Service Date/Time: Thursday, September 07, 2017 12:37 - CONCLUSION: 1. Unremarkable sonographic appearance of the liver. No evidence for hepatic volume loss or intrahepatic ductal dilatation. 2. No sonographic evidence for cholelithiasis or acute cholecystitis. 3. Mild increased right renal echogenicity may reflect medical renal disease. 4. Small bilateral pleural effusions. 5. Pancreas and inferior pole of the right kidney are obscured by bowel gas and therefore not evaluated. Darrell Robles MD Renal Ultrasound 08/31/17 0000 Signed Impressions: Service Date/Time: Thursday, August 31, 2017 17:42 - CONCLUSION: 1. No evidence of hydronephrosis on either side. 2. Solitary linear echogenic focus in the upper pole parenchyma of the right kidney has similar features to prior examination in January 2017 and possibly represents a calcification. David Snell MD Neck CTA 08/28/177 Signed Impressions: Service Date/Time: Tuesday, August 29, 2017 00:13 - CONCLUSION: Negative carotid CTA. David Snell MD Head CTA 08/28/177 Signed Impressions: Service Date/Time: Tuesday, August 29, 2017 00:13 - CONCLUSION: 1. No evidence of vessel truncation or aneurysm. 2. No abnormal vessels in the region of the large left thalamic hemorrhage. David Snell MD Objective Remarks GENERAL: in no apparent distress. Neck; trach in place. CARDIOVASCULAR: Regular rate and irregular rhythm without murmurs, gallops, or rubs. RESPIRATORY: Clear to auscultation. Breath sounds equal bilaterally. No wheezes , rales, or rhonchi. GASTROINTESTINAL: Abdomen soft, non-tender, nondistended. Normal, active bowel sounds-PEG in place. MUSCULOSKELETAL: Extremities without clubbing, cyanosis, or edema. NEURO: awake. Procedures Tracheostomy and PEG placement Medications and IVs Inpatient Medications Acetaminophen (Tylenol) 650 mg Q6H PRN G-TUBE PAIN 1-5 AND/OR FEVER >101F Last administered on 10/15/17 23:34; Start 09/25/17 at 12:45 Albuterol Sulfate (Albuterol Neb) 2.5 mg Q2HR NEB PRN NEB sob/wheeze Last administered on 11/03/17 06:06; Start 09/25/17 at 13:30 Albuterol/ Ipratropium (Duoneb Neb) 1 ampule Q6HR NEB NEB Last administered on 1/17/18at 10:00; Start 10/23/17 at 16:00; Stop 10/27/17 at 13:18; Status DC Amlodipine Besylate (Norvasc) 10 mg DAILY G-TUBE Last administered on 09:37; Start 09/26/17 at 09:00 Atorvastatin Calcium (Lipitor) 40 mg HS DOBHOFF Last administered on 11/04/17 22:16; Start 09/25/17 at 21:00 Bisacodyl (Dulcolax Supp) 10 mg DAILY RECTAL Last administered on 08/31/17 11 :58; Start 08/31/17 at 12:00; Stop 09/25/17 at 09:30; Status DC Calcium Acetate (Phoslo) 667 mg TID PO Last administered on 09/08/17 10:38; Start 08/31/17 at 18:00; Stop 09/08/17 at 11:02; Status DC Cefuroxime Axetil (Ceftin) 500 mg Q12HR PO Last administered on 10/03/17 09: 03; Start 09/26/17 at 11:15; Stop 10/03/17 at 11:14; Status DC Chlorhexidine Gluconate (Chlorhexidine 2% Cloth) 3 pack PEARL TECHNICIAN PRN TOPICAL SEE LABEL COMMENTS; Start 09/05/17 at 23:00; Stop 09/08/17 at 22:59; Status DC Chlorhexidine Gluconate (Peridex 0.12% Liq) 15 ml TID SWISH-SPIT Last administered on 11/03/17 09:36; Start 10/11/17 at 18:00 Clonidine (Catapres) 0.3 mg Q8HR G-TUBE Last administered on 11/05/17 05:37; Start 09/25/17 at 14:00 Dantrolene Sodium (Dantrium Inj) 70 mg ONCE ONCE IV Last administered on 03:55; Start 09/13/17 at 03:00; Stop 09/13/17 at 03:01; Status DC Desmopressin Acetate (Ddavp Tae Spr) 1 spray ONCE ONCE EACH NARE Last administered on 09/07/17 15:00; Start 09/07/17 at 15:00; Stop 09/07/17 at 15 :01; Status DC Dexamethasone Sodium Phosphate (Decadron Inj) 6 mg Q12HR IV PUSH Last administered on 09/20/17 09:26; Start 09/17/17 at 21:00; Stop 09/20/17 at 20: 59; Status DC Dexmedetomidine HCl 50 ml @ 29.9 mls/hr TITRATE IV ; Start 08/30/17 at 14:15; Stop 08/30/17 at 14:46; Status DC Dexmedetomidine HCl 1000 mcg/ Sodium Chloride 250 ml @ 29.9 mls/hr TITRATE IV Last administered on 08/30/17 17:58; Start 08/30/17 at 16:45; Stop 08/31/17 at 06:14; Status DC Dexmedetomidine HCl 200 mcg/ Sodium Chloride 50 ml @ 29.9 mls/hr TITRATE IV Last administered on 08/30/17 15:27; Start 08/30/17 at 15:00; Stop 08/30/17 at 16:42; Status DC Dextrose 1,000 ml @ 42 mls/hr [id number] IV Last administered on 09/20/17 09:25 ; Start 09/19/17 at 08:45; Stop 09/20/17 at 11:39; Status DC Dextrose (D50w (Vial) Inj) 25 ml UNSCH PRN IV PUSH HYPOGLYCEMIA-SEE COMMENTS; Start 09/18/17 at 12:00 Diphenhydramine HCl (Benadryl Inj) 25 mg Q6H IV PUSH Last administered on 08:06; Start 09/15/17 at 15:00; Stop 09/18/17 at 14:59; Status DC Etomidate (Amidate Inj) 20 mg ONCE ONCE IVP ; Start 08/29/17 at 00:00; Stop 08/29/17 at 00:01; Status DC Famotidine (Pepcid) 20 mg BID NG Last administered on 11/05/17 09:32; Start 09/24/17 at 09:30 Fentanyl Citrate 250 ml @ 5 mls/hr TITRATE PRN IV SEDATION Last administered on 09/11/17 06:14; Start 08/29/17 at 00:45; Stop 09/11/17 at 10:20; Status DC Fluticasone Propionate (Flonase Tae Spr) 2 spray DAILY EACH NARE Last administered on 11/05/17 09:33; Start 09/05/17 at 17:00 Gabapentin (Neurontin) 100 mg TID PO Last administered on 11/05/17 09:32; Start 10/26/17 at 13:00 Gelatin (Gelfoam 12 Mm/7 Mm Top) 1 foam Q2HR PRN TOPICAL if still bleeding from peg Last administered on 09/08/17 08:00; Start 09/07/17 at 19:45 Glucagon (Glucagon Inj) 1 mg UNSCH PRN OTHER HYPOGLYCEMIA-SEE COMMENTS; Start 09/25/17 at 09:30 Haloperidol Lactate (Haldol Inj) 5 mg Q4H PRN IV agitation Last administered on 09/12/17 23:04; Start 08/31/17 at 11:00; Stop 09/25/17 at 09:30; Status DC Heparin Sodium (Porcine) (Heparin Inj) 5,000 units Q12HR SQ Last administered on 09/28/17 08:20; Start 09/11/17 at 21:00; Status Future Hold Hydralazine HCl (Apresoline Inj) 10 mg Q30M PRN IV PUSH sbp > 160 Last administered on 09/19/17 09:08; Start 08/30/17 at 08:15 Hydralazine HCl (Apresoline) 100 mg Q8HR G-TUBE Last administered on 11/05/17 05:36; Start 09/25/17 at 14:00 Hydrochlorothiazide (Hydrodiuril) 25 mg DAILY PO Last administered on 10:37; Start 08/29/17 at 09:00; Stop 09/08/17 at 11:02; Status DC Insulin Aspart (NovoLOG SUPPLEMENTAL SCALE) 1 Q6H SQ Last administered on 14:08; Start 09/25/17 at 12:00 Insulin Detemir (Levemir Inj) 15 units Q12H SQ Last administered on 11/05/17 09:33; Start 11/01/17 at 22:00 Insulin Human Regular (NovoLIN R SUPPLEMENTAL SCALE) 1 Q4HR SQ Last administered on 09/25/17 04:09; Start 09/18/17 at 12:00; Stop 09/25/17 at 09: 28; Status DC Insulin Human Regular (NovoLIN R INJ) See Protocol Table ... PEARL TECHNICIAN PRN SQ SEE PROTOCOL TABLE; Start 09/05/17 at 23:00; Stop 09/08/17 at 22:59; Status DC Labetalol HCl (Trandate Inj) 10 mg Q20M PRN IV PUSH SBP>140, DBP>90 Last administered on 09/19/17 02:16; Start 08/29/17 at 00:45 Labetalol HCl (Trandate) 300 mg NOW ONCE PEG Last administered on 09/17/17 04 :23; Start 09/17/17 at 04:15; Stop 09/17/17 at 04:16; Status DC Lactated Ringer's 1,000 ml @ 30 mls/hr Q24H PRN IV SEE LABEL COMMENTS; Start 09/05/17 at 23:00; Stop 09/08/17 at 22:59; Status DC Lactulose (Lactulose Liq) 30 ml BID PO Last administered on 09/04/17 19:57; Start 08/31/17 at 12:00; Stop 09/25/17 at 09:30; Status DC Lidocaine HCl (Lidocaine Pf 2% Neb) 1 ml Q6HR NEB PRN NEB cough/bronchial irritation; Start 09/16/17 at 11:30 Lisinopril (Prinivil) 40 mg DAILY PO Last administered on 09/04/17 09:07; Start 08/29/17 at 09:00; Stop 09/04/17 at 12:18; Status DC Lorazepam (Ativan Inj) 1 mg ONCE ONCE IV PUSH Last administered on 09/13/17 02:57; Start 09/13/17 at 02:45; Stop 09/13/17 at 02:46; Status DC Lorazepam (Ativan) 1 mg Q12H PO Last administered on 09/09/17 20:27; Start 09/07/17 at 19:00; Stop 09/11/17 at 10:25; Status DC Magnesium Hydroxide (Milk Of Magnesia Liq) 30 ml Q12H PRN PO Mild constipation ; Start 08/29/17 at 00:45; Stop 08/31/17 at 11:08; Status DC Magnesium Citrate (Citroma Liq) 300 ml ONCE ONCE PO Last administered on 08/31 11:57; Start 08/31/17 at 12:00; Stop 08/31/17 at 12:01; Status DC Magnesium Oxide (Mag-Ox) 800 mg UNSCH PRN PO For Magnesium 1.2 - 1.6 mg/dL; Start 08/30/17 at 08:15; Stop 08/31/17 at 13:02; Status DC Magnesium Sulfate 2 gm/Sodium Chloride 100 ml @ 50 mls/hr UNSCH PRN IV For Magnesium 1.2 - 1.6 mg/dL; Start 08/30/17 at 08:15; Stop 08/31/17 at 13:02; Status DC Magnesium Sulfate 4 gm/Sodium Chloride 100 ml @ 50 mls/hr UNSCH PRN IV For Magnesium 0.9 - 1.1 mg/dL; Start 08/30/17 at 08:15; Stop 08/31/17 at 13:02; Status DC Magnesium Sulfate/ Dextrose 100 ml @ 100 mls/hr Q1H IV Last administered on 12:22; Start 08/31/17 at 12:00; Stop 08/31/17 at 13:00; Status DC Methylprednisolone Sodium Succinate (SoluMEDROL INJ) 125 mg ONCE ONCE IV PUSH Last administered on 10/20/17at 13:09; Start 10/20/17 at 12:15; Stop 10/20/17 at 12:16; Status DC Metoclopramide HCl (Reglan Inj) 5 mg Q8HR IV PUSH Last administered on 22:55; Start 09/09/17 at 22:00; Stop 09/11/17 at 10:25; Status DC Metoprolol Tartrate (Lopressor) 25 mg Q8H G-TUBE ; Start 09/25/17 at 13:00; Stop 09/25/17 at 13:00; Status DC Midazolam HCl (Versed Inj) 10 mg ONCE ONCE IV PUSH ; Start 09/08/17 at 13:00; Stop 09/08/17 at 13:41; Status DC Miscellaneous Information 1 [id number] Last administered on 08/29/17 01:00; Start 08/29/17 at 00:45; Stop 10/24/17 at 04:26; Status DC Modafinil (Provigil) 200 mg DAILY PO Last administered on 09/12/17 09:07; Start 09/11/17 at 12:00; Stop 09/25/17 at 09:30; Status DC Morphine Sulfate (Morphine Inj) 2 mg Q3H PRN IM BREAKTHROUGH PAIN Last administered on 11/01/17 13:25; Start 11/01/17 at 13:00 Nicardipine HCl 25 mg/Sodium Chloride 250 ml @ 50 mls/hr TITRATE PRN IV Blood pressure management Last administered on 09/17/17 04:57; Start 09/13/17 at 02: 45; Stop 09/17/17 at 12:47; Status DC Nicardipine HCl 50 mg/Sodium Chloride 500 ml @ 50 mls/hr TITRATE PRN IV BLOOD PRESSURE MANAGEMENT Last administered on 09/05/17 22:00; Start 09/02/17 at 21 :15; Stop 09/11/17 at 10:25; Status DC Ondansetron HCl (Zofran Inj) 4 mg Q6H PRN IV PUSH NAUSEA OR VOMITING Last administered on 09/11/17 14:18; Start 08/29/17 at 00:45 Oxycodone HCl (Roxicodone Intensol Liq) 5 mg Q4H PRN G-TUBE pain 6-10 Last administered on 11/02/17 09:47; Start 11/01/17 at 15:00; Stop 11/02/17 at 11:43 ; Status DC Oxycodone HCl (Roxicodone) 10 mg Q4H PRN PO PAIN 6-10 Last administered on 11/04 14:07; Start 11/02/17 at 14:00 Pantoprazole Sodium (Protonix Inj) 40 mg DAILY IV PUSH Last administered on 09:15; Start 08/29/17 at 09:00; Stop 09/11/17 at 10:25; Status DC Pharmacy Profile Note 0 ml @ 0 mls/hr UNSCH OTHER ; Start 09/13/17 at 02:45; Stop 09/17/17 at 10:11; Status DC Piperacillin Sod/ Tazobactam Sod 50 ml @ 100 mls/hr Q6H IV Last administered on 09/19/17 20:26; Start 09/13/17 at 03:00; Stop 09/19/17 at 23:00; Status DC Polyethylene Glycol (Miralax) 17 gm BID G-TUBE Last administered on 1/17/18at 09:41; Start 09/25/17 at 21:00 Potassium Chloride 30 meq/ Sodium Chloride 115 ml @ 38.333 mls/ hr ONCE ONCE IV-CENTRAL Last administered on 09/03/17 13:36; Start 09/03/17 at 14:00; Stop 09/03/17 at 16:59; Status DC Potassium Phosphate (K-Phos) 2,000 mg UNSCH PRN PO/TUBE SEE LABEL COMMENTS; Start 08/30/17 at 08:15; Stop 08/31/17 at 13:02; Status DC Potassium Phosphate 30 mmol/ Sodium Chloride 260 ml @ 42 mls/hr UNSCH PRN IV SEE LABEL COMMENTS; Start 08/30/17 at 08:15; Stop 08/31/17 at 13:02; Status DC Potassium Bicarb/ Potassium Chloride (K-Lyte Cl Eff) 50 meq ONCE ONCE PO Last administered on 09/25/17 05:25; Start 09/25/17 at 04:30; Stop 09/25/17 at 04:31; Status DC Potassium Chloride 100 ml @ 50 mls/hr Q2H IV Last administered on 09/15/17 10 :22; Start 09/15/17 at 08:15; Stop 09/15/17 at 12:14; Status DC Potassium Chloride (KCl Powder) 40 meq ONCE ONCE PEG Last administered on 12:15; Start 09/08/17 at 12:15; Stop 09/08/17 at 12:21; Status DC Potassium Chloride (KCl) 40 meq ONCE ONCE PO ; Start 09/08/17 at 09:00; Stop 09/08/17 at 12:05; Status DC Povidone Iodine (Betadine 5% Antisepsis Kit) 1 applic PEARL TECHNICIAN PRN EACH NARE SEE LABEL COMMENTS; Start 09/05/17 at 23:00; Stop 09/08/17 at 22:59; Status DC Propofol 100 ml @ 14.352 mls/ hr TITRATE PRN IV SEDATION Last administered on 09/10/17 09:59; Start 08/31/17 at 00:30; Stop 09/11/17 at 10:20; Status DC Propranolol HCl (Inderal) 40 mg Q6HR G-TUBE Last administered on 11/05/17at 05: 37; Start 09/25/17 at 12:00 Quetiapine Fumarate (SEROquel) 50 mg Q8HR G-TUBE Last administered on 05:36; Start 09/25/17 at 14:00 Rocuronium [place] (Zemuron Inj) 100 mg BOLUS ONCE IV ; Start 09/08/17 at 13: 00; Stop 09/08/17 at 13:44; Status DC Senna/Docusate Sodium (Melina-Colace) 1 tab BID G-TUBE Last administered on 09:07; Start 09/25/17 at 21:00 Sennosides (Senokot) 17.2 mg Q12H PRN PO Moderate constipation; Start at 00:45; Stop 08/31/17 at 11:08; Status DC Silver Nitrate/ Potassium Nitrate (Silver Nitrate Applicators) 1 appl ONCE ONCE TOPICAL Last administered on 09/07/17 10:15; Start 09/07/17 at 10:15; Stop 09/07/17 at 10:47; Status DC Sodium Polystyrene Sulfonate (Kayexalate Liq) 30 gm Q2HR PO Last administered on 09/21/17 19:53; Start 09/21/17 at 16:00; Stop 09/21/17 at 21:00; Status DC Sodium Chloride 250 ml @ 15 mls/hr ONCE ONCE IV ; Start 09/28/17 at 10:15; Stop 09/28/17 at 16:53; Status DC Sodium Chloride (NS Flush) 2 ml UNSCH PRN IVF FLUSH AFTER USING IV ACCESS Last administered on 10/24/17at 20:44; Start 08/29/17 at 00:00 Sodium Chloride 38.5 meq/Sterile Water 1,009.625 ml @ 42 mls/hr Q24H IV Last administered on 09/25/17 06:01; Start 09/20/17 at 13:00; Stop 09/25/17 at 09 :24; Status DC Sodium Phosphate 30 mmol/Sodium Chloride 250 ml @ 42 mls/hr UNSCH PRN IV For Phosphorus < 2.5 mg/dL; Start 08/30/17 at 08:15; Stop 08/31/17 at 13:02; Status DC Succinylcholine Chloride (Quelicin Inj) 100 mg ONCE ONCE IV PUSH ; Start 08/29 at 00:00; Stop 08/29/17 at 00:01; Status DC Vancomycin HCl 1500 mg/Sodium Chloride 515 ml @ 257.5 mls/ hr ONCE ONCE IV Last administered on 09/16/17 17:07; Start 09/16/17 at 15:00; Stop 09/16/17 at 16:59; Status DC Vancomycin HCl 2000 mg/Sodium Chloride 520 ml @ 250 mls/hr ONCE ONCE IV Last administered on 09/13/17 05:52; Start 09/13/17 at 04:00; Stop 09/13/17 at 06:04 ; Status DC Vancomycin HCl 2500 mg/Sodium Chloride 525 ml @ 250 mls/hr ONCE ONCE IV Last administered on 09/14/17 12:29; Start 09/14/17 at 12:00; Stop 09/14/17 at 14:05 ; Status DC Water (Free Water) 300 ml Q4HR G-TUBE Last administered on 11/05/17at 09:34; Start 09/18/17 at 12:00 A/P Problem List: (1) Intracranial hemorrhage ICD Code: I62.9 - Nontraumatic intracranial hemorrhage, unspecified Status: Acute Assessment and Plan A/P Acute encephalopathy - improving. Left Thalamic Hemorrhage Intracerebral Hemorrhage - Repeat CT of the head showed improving bleed - Neurosurgery follow-up appreciated; stable for dc to SNF per neurosurgery. - Continue rehabilitation efforts with PT, OT, speech - On Seroquel to control agitated delirium. Roxicodone as needed for pain Anemia likely due to chronic disease. H/H fairly stable. will monitor periodically. Healthcare associated pneumonia treated. UTI: treated. Respiratory failure s/p trach trach has been removed. will monitor. pulmonary f/u appreciated. diabetes mellitus - continue Levemir 15 units SQ q12h - Continue sliding scale insulin with Accu-Cheks. - hemoglobin A1c 9.1. Hypertension - Intermittent hypertension now well controlled - Continue clonidine, amlodipine and propranolol - Continue hydralazine. Nutrition status: - Status post PEG tube - -on diet now per ST. -calorie count in process- will consider removing the PEG- pending the result of calorie count. Acute kidney injury, most likely has CKD per nephrology: Renal function stabilized. - monitor renal function periodically. fever repeat UA/UC- will monitor temps. pain to the right leg. DVT with no evidence of DVT- continue pain control. diplopia neurosurgery f/u appreciated and recommended ophthalmology consult; ophthalmology consulted. Physical deconditioning/right sided hemiparesis - OOB to stretcher chair daily - PT/OT following AND SPEECH PROPH: - SCD's. Pepcid for GI prophylaxis Discharge Planning dc to [facility] early next week if stable. previously d/w the case management and [place]. Zoë Rivas MD Nov 05, 2017 12:54
[2017-11-05] MEDS: ATORVASTATIN 40 MG TAB DOBHOFF SCH (21:36)
[2017-11-06] VITALS (7 sets, daily range): BP systolic 107–131; BP diastolic 68–79; PULSE 80–86; RESP 17–18; TEMP 97.8–100.5; O2SAT 90–96
[2017-11-06] MEDS: PROPRANOLOL HCL 40 MG TAB G-TUBE SCH ×5 (00:32→23:38)
[2017-11-06] MEDS: FREE WATER G-TUBE SCH ×7 (00:33→23:39)
[2017-11-06] MEDS: INSULIN ASPART SUPPLEMENTAL SCALE SQ SCH ×5 (05:07→23:39)
[2017-11-06] MEDS: cloNIDine HCL 0.3 MG TAB G-TUBE SCH ×3 (05:57→21:28)
[2017-11-06] MEDS: hydrALAZINE HCL 100 MG TAB G-TUBE SCH ×3 (05:57→21:28)
[2017-11-06] MEDS: QUEtiapine FUMARATE 25 MG TAB G-TUBE SCH ×3 (05:58→21:28)
[2017-11-06] MEDS: POLYETHYLENE GLYCOL 17 GM PKG G-TUBE SCH ×2 (09:00→21:00)
[2017-11-06] MEDS: DOCUSATE SODIUM 50 MG/SENNA 8.6 MG TAB G-TUBE SCH ×2 (09:00→21:28)
[2017-11-06] MEDS: FLUTICASONE PROPIONATE 50 MCG/ACT 16 GM NASAL SPRAY EACH NARE SCH (09:00)
[2017-11-06] MEDS: CHLORHEXIDINE GLUCONATE 0.12% 15 ML CUP SWISH-SPIT SCH ×3 (09:00→18:00)
[2017-11-06] MEDS: FAMOTIDINE 20 MG TAB NG SCH ×2 (09:43→21:28)
[2017-11-06] MEDS: GABAPENTIN 100 MG CAP PO SCH ×3 (09:44→17:23)
[2017-11-06] MEDS: INSULIN DETEMIR 100 UNITS/ML VIAL SQ SCH ×2 (09:44→21:29)
--- NOTE | 2017-11-06 11:32 | HHI.PR ---
Subjective Remarks 1-11 Patient seen and examined [place] Of trach capping unsuccessful AWAIT SAFE PLACEMENT RIGHT SIDE IS LESS FLACCID 1-12 MOVING RIGHT SIDE MORE- NOT TOTALLY FLACCID MOVING LEFT SIDE WELL CONTINUE PT AND OT 1-13 TOLERATING PASSY DIANA VALVE MOVING RIGHT SIDE MORE TO RUIZ WHEN BED AVAILABLE 1-14 HAS PASSY DIANA VALVE IN PLACE NO NEW COMPLAINTS DW RN AND PT MOVING RIDE SIDE SOME NOW AWAIT RUIZ PLACEMENT 1-15 WANTS TO EAT BUT NEEDS SPEECH CLEARANCE FOR THAT DW RN AND PT HOPEFULLY TO RUIZ SOON NEEDS PT AND OT AND ST 1-16 NOT CLEARED BY SPEECH TO EAT YET DW RN AND PT AWAIT RUIZ HAVING SOME PAIN IN RIGHT ARM/LEG 1- DIET STARTED CLEARED BY SPEECH FOR DIET DW PATIENT AND RN WORKING WITH PT AND OT PASSY DIANA VALVE IN PLACE CONTINUE PT AND OT 11-06 TRACH HAS BEEN REMOVED TALKING WELL EATING WELL ON CALORIE COUNT CONTINUE PT AND OT PLACEMENT PENDING Objective Vitals Vital Signs Date Time Temp Pulse Resp B/P (MAP) Pulse Ox O2 Delivery O2 Flow Rate FiO2 11/06/17 08:00 98.9 83 18 114/69 (84) 90 11/06/17 04:00 98.3 82 17 122/71 (88) 96 11/06/17 00:00 100.5 86 18 107/79 (88) 95 11/05/17 20:00 100.1 87 18 133/74 (93) 96 11/05/17 20:00 96 Room Air 11/05/17 16:12 99.8 86 18 106/71 (83) 92 11/05/17 12:12 99.9 86 17 134/66 (88) 91 11/05/17 12:00 Room Air I/O 11/05/17 11/05/17 11/05/17 11/06/17 11/06/17 11/06/17 07:00 15:00 23:00 07:00 15:00 23:00 Intake Total 360 ml Output Total 750 ml 350 ml Balance -750 ml 10 ml Intake Oral 360 ml Output Urine Total 750 ml 350 ml # Bowel Movements 0 Imaging Last Impressions Lower Extremity Ultrasound 11/02/17 0000 Signed Impressions: Service Date/Time: Thursday, November 02, 2017 13:14 - CONCLUSION: 1. No sonographic evidence for right lower extremity DVT. Darrell Robles MD Chest X-Ray 10/31/17 0000 Signed Impressions: Service Date/Time: Tuesday, October 31, 2017 13:18 - CONCLUSION: Possible mild CHF. K. Luigi Malik MD Head CT 10/27/17 1001 Signed Impressions: Service Date/Time: Friday, October 27, 2017 10:55 - CONCLUSION: 1. Small area of encephalomalacia in the left basal ganglia corresponding to the area of hemorrhage seen on the previous exam. No new areas of hemorrhage are seen. No significant mass effect is identified. Ant Reece MD Maxillofacial CT 09/16/17 0000 Signed Impressions: Service Date/Time: September 01:03 - CONCLUSION: 1. Evidence of acute pansinusitis. 2. Opacification of multiple bilateral mastoid air cells most characteristic of mastoiditis. 3. Mildly prominent cervical chain nodes which may be reactive. Angelo Conn MD Upper Extremity Ultrasound 09/15/17 0000 Signed Impressions: Service Date/Time: Friday, September 15, 2017 17:14 - CONCLUSION: Occlusive thrombus within the left cephalic vein and nonocclusive thrombus within the right cephalic vein. Ric Jack MD Chest CT 09/13/17 0000 Signed Impressions: Service Date/Time: Wednesday, September 13, 2017 09:28 - CONCLUSION: 1. Bibasilar and left lingular dependent atelectatic changes. Lungs are otherwise clear. 2. Tracheostomy tube with the tip probably positioned above the connie. 3. Compensated cardiomegaly. Reyes Guzman MD Abdomen/Pelvis CT 09/13/17 0000 Signed Impressions: Service Date/Time: Wednesday, September 13, 2017 09:28 - CONCLUSION: 1. There is some stranding in the retroperitoneal perivascular tissues around the distal aorta extending into the bifurcation with a regional borderline lymph nodes. Findings are characteristic of a nonspecific inflammatory process. Findings could represent early retroperitoneal fibrosis.. 2. Urinary bladder is decompressed with some mural thickening in pericystic inflammatory changes possibly representing a chronic cystitis. Nondependent air could be associated with a recent catheterization/instrumentation. 3. Small umbilical and right inguinal hernias only contain fat. 4. Bilateral dependent basilar and left lingular atelectatic changes. Heart size is borderline prominent. 5. Otherwise , bowel is intact without obstruction to explain abdominal distention Reyes Guzman MD Abdomen X-Ray 09/10/17 0600 Signed Impressions: Service Date/Time: Sunday, September 10, 2017 03:56 - CONCLUSION: No significant abnormality is identified. There is mild distention of the colon but there are no findings to suggest bowel obstruction or significant ileus. Ignacio Underwood MD Liver Ultrasound 09/07/17 0000 Signed Impressions: Service Date/Time: Thursday, September 07, 2017 12:37 - CONCLUSION: 1. Unremarkable sonographic appearance of the liver. No evidence for hepatic volume loss or intrahepatic ductal dilatation. 2. No sonographic evidence for cholelithiasis or acute cholecystitis. 3. Mild increased right renal echogenicity may reflect medical renal disease. 4. Small bilateral pleural effusions. 5. Pancreas and inferior pole of the right kidney are obscured by bowel gas and therefore not evaluated. Darrell Robles MD Renal Ultrasound 08/31/17 0000 Signed Impressions: Service Date/Time: Thursday, August 31, 2017 17:42 - CONCLUSION: 1. No evidence of hydronephrosis on either side. 2. Solitary linear echogenic focus in the upper pole parenchyma of the right kidney has similar features to prior examination in January 2017 and possibly represents a calcification. David Snell MD Neck CTA 08/28/17 2347 Signed Impressions: Service Date/Time: Tuesday, August 29, 2017 00:13 - CONCLUSION: Negative carotid CTA. David Snell MD Head CTA 08/28/17 2347 Signed Impressions: Service Date/Time: Tuesday, August 29, 2017 00:13 - CONCLUSION: 1. No evidence of vessel truncation or aneurysm. 2. No abnormal vessels in the region of the large left thalamic hemorrhage. David Snell MD Objective Remarks GENERAL: Awake and alert moves left side- LESS flaccid on the right side - MOVING SOME-has tracheostomy in place and PEG tube in place SKIN: Warm and dry. HEAD: Atraumatic. Normocephalic. EYES: Pupils equal and round. No scleral icterus. No injection or drainage. ENT: No nasal bleeding or discharge. Mucous membranes pink and moist. NECK: Trachea midline. No JVD. Tracheostomy in place WITH PASSY DIANA VALVE IN PLACE NOW CARDIOVASCULAR: Regular rate and rhythm. S1 and S2 no S3 or S4 RESPIRATORY: No accessory muscle use.. Breath sounds equal bilaterally. Coarse breath sounds bilaterally GASTROINTESTINAL: Abdomen soft, non-tender, nondistended. Hepatic and splenic margins not palpable. PEG tube CONDOM CATHETER IN PLACE MUSCULOSKELETAL: Extremities without clubbing, cyanosis, or edema. No obvious deformities. Right side flaccid moves left side NEUROLOGICAL: Awake and alert. No obvious cranial nerve deficits. Motor grossly within normal limits. Five out of 5 muscle strength in the left arms and legs--LESS flaccid on the right- NO MOVING SOME. USING PASSY DIANA VALVE NOW PSYCHIATRIC: Appropriate mood and affect; insight and judgment BETTER- HAS PASSY DIANA VALVE CAN COMMUNICATE BETTER Procedures Tracheostomy and PEG placement TRACHEOSTOMY REMOVAL Medications and IVs Current Medications Sodium Chloride 1,000 ml @ 70 mls/hr [id number] ONCE IV ; Start 08/28/17 at 23:47 ; Stop 08/29/17 at 14:04; Status DC Nicardipine HCl 25 mg/Sodium Chloride 250 ml @ 50 mls/hr TITRATE PRN IV Blood pressure management; Start 08/29/17 at 00:00; Stop 08/29/17 at 00:48; Status DC Propofol 100 ml @ 0 mls/hr TITRATE PRN IV SEDATION; Start 08/29/17 at 00:00; Stop 08/29/17 at 00:40; Status DC Propofol 100 ml @ As Directed STK-MED ONCE .ROUTE ; Start 08/28/17 at 23:57; Stop 08/28/17 at 23:58; Status DC Etomidate (Amidate Inj) 20 mg ONCE ONCE IVP ; Start 08/29/17 at 00:00; Stop 08/29/17 at 00:01; Status DC Succinylcholine Chloride (Quelicin Inj) 100 mg ONCE ONCE IV PUSH ; Start 08/29 at 00:00; Stop 08/29/17 at 00:01; Status DC Sodium Chloride (NS Flush) 2 ml UNSCH PRN IVF FLUSH AFTER USING IV ACCESS Last administered on 10/24/17at 20:44; Start 08/29/17 at 00:00 Rocuronium [place] (Zemuron Inj) 50 mg BOLUS ONCE IV ; Start 08/29/17 at 00:15 ; Stop 08/29/17 at 00:17; Status DC Iohexol (Omnipaque 350 Inj) 100 ml STK-MED ONCE IVCONTRAST Last administered on 08/29/17 00:18; Start 08/29/17 at 00:18; Stop 08/29/17 at 00:19; Status DC Chlorhexidine Gluconate (Peridex 0.12% Liq) 15 ml BID@08,20 MT Last administered on 10/11/17at 09:59; Start 08/29/17 at 08:00; Stop 10/11/17 at 14:08 ; Status DC Propofol 100 ml @ 3 mls/hr TITRATE PRN IV SEDATION; Start 08/29/17 at 00:45; Stop 08/29/17 at 04:17; Status DC Nicardipine HCl (Cardene Inj) 25 mg STK-MED ONCE .ROUTE ; Start 08/29/17 at 00: 36; Stop 08/29/17 at 00:37; Status DC Nicardipine HCl 25 mg/Sodium Chloride 250 ml @ 50 mls/hr TITRATE PRN IV BLOOD PRESSURE MANAGEMENT Last administered on 09/02/17 09:52; Start 08/29/17 at 00 :45; Stop 09/02/17 at 21:12; Status DC Labetalol HCl (Trandate Inj) 10 mg Q20M PRN IV PUSH SBP>140, DBP>90 Last administered on 09/19/17 02:16; Start 08/29/17 at 00:45 Amlodipine Besylate (Norvasc) 10 mg DAILY PO Last administered on 09/24/17 09 :14; Start 08/29/17 at 09:00; Stop 09/25/17 at 09:29; Status DC Lisinopril (Prinivil) 40 mg DAILY PO Last administered on 09/04/17 09:07; Start 08/29/17 at 09:00; Stop 09/04/17 at 12:18; Status DC Sodium Chloride 1,000 ml @ 75 mls/hr [id number] IV Last administered on 06:03; Start 08/29/17 at 00:43; Stop 08/31/17 at 11:07; Status DC Acetaminophen (Tylenol) 650 mg Q6H PRN PO PAIN 1-5 AND/OR FEVER >101F Last administered on 09/23/17 03:09; Start 08/29/17 at 00:45; Stop 09/25/17 at 09 :29; Status DC Morphine Sulfate (Morphine Inj) 2 mg Q2H PRN IV PUSH PAIN SCALE 6 TO 10 Last administered on 09/17/17 03:33; Start 08/29/17 at 00:45; Stop 09/24/17 at 16: 27; Status DC Pantoprazole Sodium (Protonix Inj) 40 mg DAILY IV PUSH Last administered on 09:15; Start 08/29/17 at 09:00; Stop 09/11/17 at 10:25; Status DC Ondansetron HCl (Zofran Inj) 4 mg Q6H PRN IV PUSH NAUSEA OR VOMITING Last administered on 09/11/17 14:18; Start 08/29/17 at 00:45 Albuterol/ Ipratropium (Duoneb Neb) 1 ampule Q4HR NEB PRN INH WHEEZING Last administered on 09/15/17 11:55; Start 08/29/17 at 00:45; Stop 09/17/17 at 12: 47; Status DC Miscellaneous Information 1 [id number] Last administered on 08/29/17 01:00; Start 08/29/17 at 00:45; Stop 10/24/17 at 04:26; Status DC Chlorhexidine Gluconate (Chlorhexidine 2% Cloth) Taper DAILY@04 TOP ; Start at 04:00; Stop 10/24/17 at 04:26; Status DC Chlorhexidine Gluconate (Chlorhexidine 2% Cloth) 3 pack UNSCH PRN TOP HYGIENIC CARE; Start 08/29/17 at 00:45; Stop 10/24/17 at 04:26; Status DC Senna/Docusate Sodium (Melina-Colace) 1 tab BID PO Last administered on 09:15; Start 08/29/17 at 09:00; Stop 08/31/17 at 11:08; Status DC Magnesium Hydroxide (Milk Of Magnesia Liq) 30 ml Q12H PRN PO Mild constipation ; Start 08/29/17 at 00:45; Stop 08/31/17 at 11:08; Status DC Sennosides (Senokot) 17.2 mg Q12H PRN PO Moderate constipation; Start at 00:45; Stop 08/31/17 at 11:08; Status DC Bisacodyl (Dulcolax Supp) 10 mg DAILY PRN RECTAL SEVERE CONSITIPATION; Start 08/29/17 at 00:45; Stop 08/31/17 at 11:08; Status DC Lactulose (Lactulose Liq) 30 ml DAILY PRN PO SEVERE CONSITIPATION; Start 08/29 at 00:45; Stop 08/31/17 at 11:08; Status DC Fentanyl Citrate 250 ml @ 5 mls/hr TITRATE PRN IV SEDATION Last administered on 09/11/17 06:14; Start 08/29/17 at 00:45; Stop 09/11/17 at 10:20; Status DC Fentanyl Citrate 250 ml @ As Directed STK-MED ONCE .ROUTE ; Start 08/29/17 at 01:30; Stop 08/29/17 at 04:10; Status DC Propofol 100 ml @ 3 mls/hr TITRATE PRN IV SEDATION Last administered on 07:37; Start 08/29/17 at 04:30; Stop 08/31/17 at 11:08; Status DC Rocuronium [place] (Zemuron Inj) 100 mg STAT ONCE IV Last administered on 02:00; Start 08/29/17 at 02:00; Stop 08/29/17 at 04:18; Status DC Atorvastatin Calcium (Lipitor) 40 mg HS PO Last administered on 09/24/17 20: 43; Start 08/29/17 at 21:00; Stop 09/25/17 at 09:29; Status DC Hydrochlorothiazide (Hydrodiuril) 25 mg DAILY PO Last administered on 10:37; Start 08/29/17 at 09:00; Stop 09/08/17 at 11:02; Status DC Metoprolol Tartrate (Lopressor) 100 mg BID PO Last administered on 08/31/17 09:15; Start 08/29/17 at 09:00; Stop 09/11/17 at 10:20; Status DC Clonidine (Catapres) 0.1 mg Q8HR PO Last administered on 09/06/17 04:55; Start 08/29/17 at 06:00; Stop 09/06/17 at 11:33; Status DC Sodium Chloride 1,000 ml @ 999 mls/hr Q1H1M ONCE IV Last administered on 08/29 06:10; Start 08/29/17 at 06:30; Stop 08/29/17 at 07:30; Status DC Magnesium Oxide (Mag-Ox) 800 mg UNSCH PRN PO For Magnesium 1.2 - 1.6 mg/dL; Start 08/29/17 at 13:15; Stop 08/30/17 at 15:34; Status DC Magnesium Sulfate 4 gm/Sodium Chloride 100 ml @ 50 mls/hr UNSCH PRN IV For Magnesium 0.9 - 1.1 mg/dL; Start 08/29/17 at 13:15; Stop 08/30/17 at 15:34; Status DC Magnesium Sulfate 2 gm/Sodium Chloride 100 ml @ 50 mls/hr UNSCH PRN IV For Magnesium 1.2 - 1.6 mg/dL; Start 08/29/17 at 13:15; Stop 08/30/17 at 15:34; Status DC Potassium Chloride 100 ml @ 50 mls/hr Q2H PRN IV For Potassium 2.8 - 3.2 mEq/ L Last administered on 08/29/17 17:06; Start 08/29/17 at 13:15; Stop at 15:34; Status DC Potassium Chloride 100 ml @ 50 mls/hr Q2H PRN IV For Potassium 3.3 - 3.5 mEq/ L Last administered on 08/30/17 06:13; Start 08/29/17 at 13:15; Stop at 15:34; Status DC Potassium Chloride 100 ml @ 50 mls/hr Q2H PRN IV For Potassium 2.8 - 3.2 mEq/L ; Start 08/29/17 at 13:15; Stop 08/30/17 at 15:34; Status DC Potassium Chloride 100 ml @ 25 mls/hr UNSCH PRN IV For Potassium 3.3 - 3.5 mEq /L; Start 08/29/17 at 13:15; Stop 08/30/17 at 15:34; Status DC Potassium Phosphate (K-Phos) 2,000 mg Q4H PRN PO For Phosphorus < 2.5 mg/dL; Start 08/29/17 at 13:15; Stop 08/30/17 at 15:34; Status DC Potassium Phosphate (K-Phos) 2,000 mg UNSCH PRN PO/TUBE SEE LABEL COMMENTS; Start 08/29/17 at 13:15; Stop 08/30/17 at 15:34; Status DC Potassium Phosphate 30 mmol/ Sodium Chloride 260 ml @ 42 mls/hr UNSCH PRN IV SEE LABEL COMMENTS; Start 08/29/17 at 13:15; Stop 08/30/17 at 15:34; Status DC Sodium Phosphate 30 mmol/Sodium Chloride 250 ml @ 42 mls/hr UNSCH PRN IV For Phosphorus < 2.5 mg/dL; Start 08/29/17 at 13:15; Stop 08/30/17 at 15:34; Status DC Dextrose (D50w (Vial) Inj) 25 ml UNSCH PRN IV PUSH HYPOGLYCEMIA-SEE COMMENTS; Start 08/30/17 at 08:15; Stop 09/18/17 at 11:53; Status DC Insulin Human Regular (NovoLIN R SUPPLEMENTAL SCALE) 1 Q6HR SQ Last administered on 09/18/17t 05:34; Start 08/30/17 at 12:00; Stop 09/18/17 at 11: 53; Status DC Magnesium Oxide (Mag-Ox) 800 mg UNSCH PRN PO For Magnesium 1.2 - 1.6 mg/dL; Start 08/30/17 at 08:15; Stop 08/31/17 at 13:02; Status DC Magnesium Sulfate 4 gm/Sodium Chloride 100 ml @ 50 mls/hr UNSCH PRN IV For Magnesium 0.9 - 1.1 mg/dL; Start 08/30/17 at 08:15; Stop 08/31/17 at 13:02; Status DC Magnesium Sulfate 2 gm/Sodium Chloride 100 ml @ 50 mls/hr UNSCH PRN IV For Magnesium 1.2 - 1.6 mg/dL; Start 08/30/17 at 08:15; Stop 08/31/17 at 13:02; Status DC Potassium Chloride 100 ml @ 50 mls/hr Q2H PRN IV For Potassium 2.8 - 3.2 mEq/L ; Start 08/30/17 at 08:15; Stop 08/31/17 at 13:02; Status DC Potassium Chloride 100 ml @ 50 mls/hr Q2H PRN IV For Potassium 3.3 - 3.5 mEq/L ; Start 08/30/17 at 08:15; Stop 08/31/17 at 13:02; Status DC Potassium Chloride 100 ml @ 50 mls/hr Q2H PRN IV For Potassium 2.8 - 3.2 mEq/L ; Start 08/30/17 at 08:15; Stop 08/31/17 at 13:02; Status DC Potassium Chloride 100 ml @ 25 mls/hr UNSCH PRN IV For Potassium 3.3 - 3.5 mEq /L; Start 08/30/17 at 08:15; Stop 08/31/17 at 13:02; Status DC Potassium Phosphate (K-Phos) 2,000 mg Q4H PRN PO For Phosphorus < 2.5 mg/dL; Start 08/30/17 at 08:15; Stop 08/31/17 at 13:02; Status DC Potassium Phosphate (K-Phos) 2,000 mg UNSCH PRN PO/TUBE SEE LABEL COMMENTS; Start 08/30/17 at 08:15; Stop 08/31/17 at 13:02; Status DC Potassium Phosphate 30 mmol/ Sodium Chloride 260 ml @ 42 mls/hr UNSCH PRN IV SEE LABEL COMMENTS; Start 08/30/17 at 08:15; Stop 08/31/17 at 13:02; Status DC Sodium Phosphate 30 mmol/Sodium Chloride 250 ml @ 42 mls/hr UNSCH PRN IV For Phosphorus < 2.5 mg/dL; Start 08/30/17 at 08:15; Stop 08/31/17 at 13:02; Status DC Hydralazine HCl (Apresoline Inj) 10 mg Q30M PRN IV PUSH sbp > 160 Last administered on 09/19/17 09:08; Start 08/30/17 at 08:15 Oxycodone HCl (Roxicodone Intensol Liq) 5 mg Q4H PO Last administered on 09:16; Start 08/30/17 at 09:00; Stop 08/31/17 at 11:07; Status DC Dexmedetomidine HCl 50 ml @ 29.9 mls/hr TITRATE IV ; Start 08/30/17 at 14:15; Stop 08/30/17 at 14:46; Status DC Dexmedetomidine HCl 200 mcg/ Sodium Chloride 50 ml @ 29.9 mls/hr TITRATE IV Last administered on 08/30/17 15:27; Start 08/30/17 at 15:00; Stop 08/30/17 at 16:42; Status DC Dexmedetomidine HCl 1000 mcg/ Sodium Chloride 250 ml @ 29.9 mls/hr TITRATE IV Last administered on 08/30/17 17:58; Start 08/30/17 at 16:45; Stop 08/31/17 at 06:14; Status DC Propofol 100 ml @ 14.352 mls/ hr TITRATE PRN IV SEDATION Last administered on 09/10/17 09:59; Start 08/31/17 at 00:30; Stop 09/11/17 at 10:20; Status DC Piperacillin Sod/ Tazobactam Sod 100 ml @ 200 mls/hr Q6HR IV Last administered on 09/01/17 13:02; Start 08/31/17 at 06:00; Stop 09/01/17 at 14 :52; Status DC Morphine Sulfate (Morphine Inj) 10 mg ONCE ONCE IV PUSH Last administered on 08/31/17 06:31; Start 08/31/17 at 06:30; Stop 08/31/17 at 06:31; Status DC Propranolol HCl (Inderal) 10 mg ONCE ONCE PO Last administered on 08/31/17 06:30; Start 08/31/17 at 06:15; Stop 08/31/17 at 06:20; Status DC Oxycodone HCl (Roxicodone Intensol Liq) 10 mg Q4H PO Last administered on 09:17; Start 08/31/17 at 13:00; Stop 09/11/17 at 10:20; Status DC Propranolol HCl (Inderal) 10 mg Q6HR PO Last administered on 09/11/17 05:37; Start 08/31/17 at 12:00; Stop 09/11/17 at 10:20; Status DC Quetiapine Fumarate (SEROquel) 100 mg Q8HR PO Last administered on 09/11/17 05 :37; Start 08/31/17 at 11:00; Stop 09/11/17 at 10:20; Status DC Haloperidol Lactate (Haldol Inj) 5 mg Q4H PRN IV agitation Last administered on 09/12/17 23:04; Start 08/31/17 at 11:00; Stop 09/25/17 at 09:30; Status DC Magnesium Sulfate/ Dextrose 100 ml @ 100 mls/hr Q1H IV Last administered on 12:22; Start 08/31/17 at 12:00; Stop 08/31/17 at 13:00; Status DC Bisacodyl (Dulcolax Supp) 10 mg DAILY RECTAL Last administered on 08/31/17 11 :58; Start 08/31/17 at 12:00; Stop 09/25/17 at 09:30; Status DC Polyethylene Glycol (Miralax) 17 gm BID PO Last administered on 09/20/17 09: 26; Start 08/31/17 at 12:00; Stop 09/25/17 at 09:29; Status DC Lactulose (Lactulose Liq) 30 ml BID PO Last administered on 09/04/17 19:57; Start 08/31/17 at 12:00; Stop 09/25/17 at 09:30; Status DC Senna/Docusate Sodium (Melina-Colace) 1 tab BID PO Last administered on 09:14; Start 08/31/17 at 12:00; Stop 09/25/17 at 09:29; Status DC Magnesium Citrate (Citroma Liq) 300 ml ONCE ONCE PO Last administered on 08/31 11:57; Start 08/31/17 at 12:00; Stop 08/31/17 at 12:01; Status DC Rocuronium [place] (Zemuron Inj) 50 mg STK-MED ONCE .ROUTE Last administered on 08/31/17 14:36; Start 08/31/17 at 14:36; Stop 08/31/17 at 14:37; Status DC Calcium Acetate (Phoslo) 667 mg TID PO Last administered on 09/08/17 10:38; Start 08/31/17 at 18:00; Stop 09/08/17 at 11:02; Status DC Rocuronium [place] (Zemuron Inj) 50 mg STAT ONCE IV Last administered on 08/31 16:00; Start 08/31/17 at 16:00; Stop 08/31/17 at 16:01; Status DC Lactated Ringer's 1,000 ml @ 999 mls/hr BOLUS ONCE IV Last administered on 21:12; Start 08/31/17 at 20:45; Stop 08/31/17 at 21:45; Status DC Piperacillin Sod/ Tazobactam Sod 50 ml @ 100 mls/hr Q6HR IV Last administered on 09/02/17 05:59; Start 09/01/17 at 18:00; Stop 09/02/17 at 10:45; Status DC Piperacillin Sod/ Tazobactam Sod 50 ml @ 100 mls/hr Q8HR IV Last administered on 09/11/17 05:37; Start 09/02/17 at 14:00; Stop 09/11/17 at 10:20; Status DC Nicardipine HCl 50 mg/Sodium Chloride 500 ml @ 50 mls/hr TITRATE PRN IV BLOOD PRESSURE MANAGEMENT Last administered on 09/05/17 22:00; Start 09/02/17 at 21 :15; Stop 09/11/17 at 10:25; Status DC Rocuronium [place] (Zemuron Inj) 50 mg STK-MED ONCE .ROUTE Last administered on 09/03/17 09:22; Start 09/03/17 at 09:22; Stop 09/03/17 at 09:23; Status DC Rocuronium [place] (Zemuron Inj) 50 mg NOW ONCE IV PUSH Last administered on 09/03/17 10:13; Start 09/03/17 at 10:15; Stop 09/03/17 at 10:16; Status DC Rocuronium [place] (Zemuron Inj) 50 mg NOW ONCE IV PUSH Last administered on 09/03/17 11:00; Start 09/03/17 at 11:00; Stop 09/03/17 at 11:01; Status DC Potassium Chloride 30 meq/ Sodium Chloride 115 ml @ 38.333 mls/ hr ONCE ONCE IV-CENTRAL Last administered on 09/03/17 13:36; Start 09/03/17 at 14:00; Stop 09/03/17 at 16:59; Status DC Dexamethasone Sodium Phosphate (Decadron Inj) 6 mg Q6H IV PUSH Last administered on 09/05/17 06:09; Start 09/04/17 at 13:00; Stop 09/05/17 at 11 :55; Status DC Diphenhydramine HCl (Benadryl Inj) 50 mg Q6H IV Last administered on 08:27; Start 09/04/17 at 13:00; Stop 09/07/17 at 12:59; Status DC Lorazepam (Ativan) 2 mg Q8H PO Last administered on 09/07/17 14:35; Start at 15:00; Stop 09/07/17 at 15:18; Status DC Acetaminophen 0 ml @ As Directed STK-MED ONCE IV ; Start 09/05/17 at 07:52; Stop 09/05/17 at 07:53; Status DC Insulin Detemir (Levemir Inj) 10 units Q12H SQ Last administered on 09/11/17 09:16; Start 09/05/17 at 10:00; Stop 09/11/17 at 10:21; Status DC Dexamethasone Sodium Phosphate (Decadron Inj) 4 mg Q12H IV PUSH Last administered on 09/07/17 05:28; Start 09/05/17 at 18:00; Stop 09/07/17 at 17 :59; Status DC Albuterol/ Ipratropium (Duoneb Neb) 1 ampule Q6HR NEB NEB Last administered on 09/08/17 11:05; Start 09/05/17 at 12:00; Stop 09/08/17 at 12:59; Status DC Rocuronium [place] (Zemuron Inj) 50 mg BOLUS STAT IV Last administered on 16:47; Start 09/05/17 at 16:37; Stop 09/05/17 at 16:38; Status DC Fluticasone Propionate (Flonase Tae Spr) 2 spray DAILY EACH NARE Last administered on 11/05/17at 09:33; Start 09/05/17 at 17:00 Lactated Ringer's 1,000 ml @ 30 mls/hr Q24H PRN IV SEE LABEL COMMENTS; Start 09/05/17 at 23:00; Stop 09/08/17 at 22:59; Status DC Sodium Chloride 500 ml @ 30 mls/hr [id number] PRN IV SEE LABEL COMMENTS; Start at 23:00; Stop 09/08/17 at 22:59; Status DC Metoprolol Tartrate (Lopressor) 25 mg HARDWARE TRAINER PRN PO SEE LABEL COMMENTS; Start 09/05/17 at 23:00; Stop 09/08/17 at 22:59; Status DC Povidone Iodine (Betadine 5% Antisepsis Kit) 1 applic HARDWARE TRAINER PRN EACH NARE SEE LABEL COMMENTS; Start 09/05/17 at 23:00; Stop 09/08/17 at 22:59; Status DC Chlorhexidine Gluconate (Chlorhexidine 2% Cloth) 3 pack HARDWARE TRAINER PRN TOPICAL SEE LABEL COMMENTS; Start 09/05/17 at 23:00; Stop 09/08/17 at 22:59; Status DC Insulin Human Regular (NovoLIN R INJ) See Protocol Table ... HARDWARE TRAINER PRN SQ SEE PROTOCOL TABLE; Start 09/05/17 at 23:00; Stop 09/08/17 at 22:59; Status DC Potassium Chloride 100 ml @ 50 mls/hr ONCE ONCE IV Last administered on 09/06 10:16; Start 09/06/17 at 09:30; Stop 09/06/17 at 11:29; Status DC Clonidine (Catapres) 0.3 mg Q8HR PO Last administered on 09/25/17 05:27; Start 09/06/17 at 14:00; Stop 09/25/17 at 09:29; Status DC Clonidine (Catapres) 0.3 mg ONCE ONCE PO Last administered on 09/06/17 11:55 ; Start 09/06/17 at 11:45; Stop 09/06/17 at 11:46; Status DC Heparin Sodium (Porcine) (Heparin Inj) 5,000 units Q12HR SQ ; Start 09/06/17 at 21:00; Stop 09/06/17 at 21:00; Status DC Gelatin (Gelfoam 12 Mm/7 Mm Top) 1 foam STK-MED ONCE .ROUTE Last administered on 09/07/17 09:47; Start 09/07/17 at 09:47; Stop 09/07/17 at 09:48; Status DC Silver Nitrate/ Potassium Nitrate (Silver Nitrate Applicators) 1 appl ONCE ONCE TOPICAL Last administered on 09/07/17 10:15; Start 09/07/17 at 10:15; Stop 09/07/17 at 10:47; Status DC Potassium Chloride 100 ml @ 50 mls/hr Q2H IV Last administered on 09/07/17 12:45; Start 09/07/17 at 10:45; Stop 09/07/17 at 14:44; Status DC Desmopressin Acetate (Ddavp Tae Spr) 1 spray ONCE ONCE EACH NARE Last administered on 09/07/17 15:00; Start 09/07/17 at 15:00; Stop 09/07/17 at 15 :01; Status DC Propofol (Diprivan 200 Mg/20 ml Inj) 200 mg STK-MED ONCE IV ; Start 09/06/17 at 12:00; Stop 09/07/17 at 15:10; Status DC Lorazepam (Ativan) 1 mg Q12H PO Last administered on 09/09/17 20:27; Start 09/07/17 at 19:00; Stop 09/11/17 at 10:25; Status DC Gelatin (Gelfoam 12 Mm/7 Mm Top) 1 foam Q2HR PRN TOPICAL if still bleeding from peg Last administered on 09/08/17 08:00; Start 09/07/17 at 19:45 Potassium Chloride 100 ml @ 50 mls/hr Q2H IV Last administered on 09/08/17 11:59; Start 09/08/17 at 09:00; Stop 09/08/17 at 12:59; Status DC Potassium Chloride (KCl) 40 meq ONCE ONCE PO ; Start 09/08/17 at 09:00; Stop 09/08/17 at 12:05; Status DC Potassium Chloride (KCl Powder) 40 meq ONCE ONCE PEG Last administered on 12:15; Start 09/08/17 at 12:15; Stop 09/08/17 at 12:21; Status DC Midazolam HCl (Versed Inj) 10 mg ONCE ONCE IV PUSH ; Start 09/08/17 at 13:00; Stop 09/08/17 at 13:41; Status DC Sodium Chloride 1,000 ml @ 999 mls/hr BOLUS ONCE IV Last administered on 13:00; Start 09/08/17 at 13:00; Stop 09/08/17 at 14:00; Status DC Rocuronium [place] (Zemuron Inj) 100 mg BOLUS ONCE IV ; Start 09/08/17 at 13: 00; Stop 09/08/17 at 13:44; Status DC Albuterol/ Ipratropium (Duoneb Neb) 1 ampule Q6HR NEB NEB Last administered on 09/12/17 15:34; Start 09/08/17 at 16:00; Stop 09/12/17 at 15:59; Status DC Midazolam HCl (Versed Inj) 10 mg STK-MED ONCE .ROUTE Last administered on 09/08 13:39; Start 09/08/17 at 13:12; Stop 09/08/17 at 13:13; Status DC Rocuronium [place] (Zemuron Inj) 100 mg STK-MED ONCE .ROUTE Last administered on 09/08/17 13:12; Start 09/08/17 at 13:12; Stop 09/08/17 at 13:13; Status DC Midazolam HCl (Versed Inj) 5 mg STK-MED ONCE .ROUTE Last administered on 13:52; Start 09/08/17 at 13:44; Stop 09/08/17 at 13:45; Status DC Midazolam HCl (Versed Inj) 5 mg STK-MED ONCE .ROUTE Last administered on 13:52; Start 09/08/17 at 13:49; Stop 09/08/17 at 13:50; Status DC Potassium Bicarb/ Potassium Chloride (K-Lyte Cl Eff) 25 meq ONCE ONCE PO Last administered on 09/09/17 11:15; Start 09/09/17 at 11:00; Stop 09/09/17 at 11:03; Status DC Metoclopramide HCl (Reglan Inj) 5 mg Q8HR IV PUSH Last administered on 22:55; Start 09/09/17 at 22:00; Stop 09/11/17 at 10:25; Status DC Potassium Chloride 100 ml @ 50 mls/hr Q2H IV Last administered on 09/10/17 16 :01; Start 09/10/17 at 13:00; Stop 09/10/17 at 16:59; Status DC Insulin Detemir (Levemir Inj) 12 units Q12H SQ Last administered on 09/17/17 10:42; Start 09/11/17 at 22:00; Stop 09/17/17 at 15:27; Status DC Oxycodone HCl (Roxicodone Intensol Liq) 5 mg Q4H PO Last administered on 08:28; Start 09/11/17 at 13:00; Stop 09/17/17 at 12:47; Status DC Propranolol HCl (Inderal) 30 mg Q6HR PO Last administered on 09/17/17 04:23; Start 09/11/17 at 12:00; Stop 09/17/17 at 12:47; Status DC Quetiapine Fumarate (SEROquel) 50 mg Q8HR PO Last administered on 09/12/17 21: 37; Start 09/11/17 at 14:00; Stop 09/25/17 at 09:29; Status DC Modafinil (Provigil) 200 mg DAILY PO Last administered on 09/12/17 09:07; Start 09/11/17 at 12:00; Stop 09/25/17 at 09:30; Status DC Water (Free Water) VOLUME: 200 ML Q4HR G-TUBE Last administered on 09/18/17 08 :00; Start 09/11/17 at 12:00; Stop 09/18/17 at 11:53; Status DC Famotidine (Pepcid) 10 mg BID NG Last administered on 09/23/17 20:42; Start 09/11/17 at 21:00; Stop 09/24/17 at 09:10; Status DC Heparin Sodium (Porcine) (Heparin Inj) 5,000 units Q12HR SQ Last administered on 09/28/17 08:20; Start 09/11/17 at 21:00; Status Future Hold Lorazepam (Ativan Inj) 1 mg ONCE ONCE IV PUSH Last administered on 09/13/17 02:57; Start 09/13/17 at 02:45; Stop 09/13/17 at 02:46; Status DC Pharmacy Profile Note 0 ml @ 0 mls/hr UNSCH OTHER ; Start 09/13/17 at 02:45; Stop 09/17/17 at 10:11; Status DC Piperacillin Sod/ Tazobactam Sod 50 ml @ 100 mls/hr Q6H IV Last administered on 09/19/17 20:26; Start 09/13/17 at 03:00; Stop 09/19/17 at 23:00; Status DC Nicardipine HCl 25 mg/Sodium Chloride 250 ml @ 50 mls/hr TITRATE PRN IV Blood pressure management Last administered on 09/17/17 04:57; Start 09/13/17 at 02: 45; Stop 09/17/17 at 12:47; Status DC Dantrolene Sodium (Dantrium Inj) 70 mg ONCE ONCE IV Last administered on 03:55; Start 09/13/17 at 03:00; Stop 09/13/17 at 03:01; Status DC Vancomycin HCl 2000 mg/Sodium Chloride 520 ml @ 250 mls/hr ONCE ONCE IV Last administered on 09/13/17 05:52; Start 09/13/17 at 04:00; Stop 09/13/17 at 06:04 ; Status DC Vancomycin HCl 2500 mg/Sodium Chloride 525 ml @ 250 mls/hr ONCE ONCE IV Last administered on 09/14/17 12:29; Start 09/14/17 at 12:00; Stop 09/14/17 at 14:05 ; Status DC Potassium Chloride 100 ml @ 50 mls/hr Q2H IV Last administered on 09/15/17 10 :22; Start 09/15/17 at 08:15; Stop 09/15/17 at 12:14; Status DC Dexamethasone Sodium Phosphate (Decadron Inj) 6 mg Q6HR IV PUSH Last administered on 09/17/17 04:24; Start 09/15/17 at 14:15; Stop 09/17/17 at 12:35 ; Status DC Diphenhydramine HCl (Benadryl Inj) 25 mg Q6H IV PUSH Last administered on 08:06; Start 09/15/17 at 15:00; Stop 09/18/17 at 14:59; Status DC Lidocaine HCl (Lidocaine Pf 2% Neb) 1 ml Q6HR NEB PRN NEB cough/bronchial irritation; Start 09/16/17 at 11:30 Vancomycin HCl 1500 mg/Sodium Chloride 515 ml @ 257.5 mls/ hr ONCE ONCE IV Last administered on 09/16/17 17:07; Start 09/16/17 at 15:00; Stop 09/16/17 at 16:59; Status DC Insulin Human Regular (NovoLIN R SUPPLEMENTAL SCALE) 5 ONCE ONCE SQ Last administered on 09/16/17 18:14; Start 09/16/17 at 18:00; Stop 09/16/17 at 18:01 ; Status DC Labetalol HCl (Trandate) 300 mg Q8HR PEG Last administered on 09/25/17 05:26 ; Start 09/17/17 at 14:00; Stop 09/25/17 at 09:31; Status DC Labetalol HCl (Trandate) 300 mg NOW ONCE PEG Last administered on 09/17/17 04 :23; Start 09/17/17 at 04:15; Stop 09/17/17 at 04:16; Status DC Dexamethasone Sodium Phosphate (Decadron Inj) 6 mg Q12HR IV PUSH Last administered on 09/20/17 09:26; Start 09/17/17 at 21:00; Stop 09/20/17 at 20: 59; Status DC Albuterol/ Ipratropium (Duoneb Neb) 1 ampule Q6HR NEB INH Last administered on 09/21/17 08:25; Start 09/17/17 at 16:00; Stop 09/21/17 at 15:59; Status DC Oxycodone HCl (Roxicodone Intensol Liq) 5 mg Q6H PO Last administered on 08:05; Start 09/17/17 at 15:00; Stop 09/18/17 at 12:04; Status DC Propranolol HCl (Inderal) 40 mg Q6HR PO Last administered on 09/25/17 05:26; Start 09/17/17 at 18:00; Stop 09/25/17 at 09:29; Status DC Insulin Detemir (Levemir Inj) 15 units Q12H SQ Last administered on 09/18/17 09:49; Start 09/17/17 at 22:00; Stop 09/18/17 at 11:53; Status DC Water (Free Water) 300 ml Q4HR G-TUBE Last administered on 11/06/17 08:00; Start 09/18/17 at 12:00 Insulin Detemir (Levemir Inj) 18 units Q12H SQ Last administered on 09/18/17 20:09; Start 09/18/17 at 22:00; Stop 09/19/17 at 08:52; Status DC Dextrose (D50w (Vial) Inj) 25 ml UNSCH PRN IV PUSH HYPOGLYCEMIA-SEE COMMENTS; Start 09/18/17 at 12:00 Insulin Human Regular (NovoLIN R SUPPLEMENTAL SCALE) 1 Q4HR SQ Last administered on 09/25/17 04:09; Start 09/18/17 at 12:00; Stop 09/25/17 at 09: 28; Status DC Oxycodone HCl (Roxicodone Intensol Liq) 5 mg Q6H PRN PO pain 6-10 Last administered on 09/18/17 22:56; Start 09/18/17 at 15:00; Stop 09/25/17 at 09: 29; Status DC Hydralazine HCl (Apresoline) 50 mg Q8HR PO Last administered on 09/19/17 05: 12; Start 09/18/17 at 14:00; Stop 09/19/17 at 08:52; Status DC Insulin Detemir (Levemir Inj) 20 units Q12H SQ Last administered on 10/29/17at 09:51; Start 09/19/17 at 10:00; Stop 10/30/17 at 10:43; Status DC Hydralazine HCl (Apresoline) 100 mg Q8HR PO Last administered on 09/25/17 05: 31; Start 09/19/17 at 14:00; Stop 09/25/17 at 09:29; Status DC Dextrose 1,000 ml @ 42 mls/hr [id number] IV Last administered on 09/20/17 09:25 ; Start 09/19/17 at 08:45; Stop 09/20/17 at 11:39; Status DC Sodium Chloride 38.5 meq/Sterile Water 1,009.625 ml @ 42 mls/hr Q24H IV Last administered on 09/25/17 06:01; Start 09/20/17 at 13:00; Stop 09/25/17 at 09 :24; Status DC Acetaminophen 0 ml @ As Directed STK-MED ONCE IV ; Start 09/21/17 at 09:42; Stop 09/21/17 at 09:43; Status DC Hydromorphone HCl (Dilaudid Pf Inj) 2 mg STK-MED ONCE .ROUTE ; Start 09/21/17 at 09:43; Stop 09/21/17 at 09:44; Status DC Sodium Polystyrene Sulfonate (Kayexalate Liq) 30 gm Q2HR PO Last administered on 09/21/17 19:53; Start 09/21/17 at 16:00; Stop 09/21/17 at 21:00; Status DC Famotidine (Pepcid) 20 mg BID NG Last administered on 11/06/17 09:43; Start 09/24/17 at 09:30 Morphine Sulfate (Morphine Inj) 2 mg Q2H PRN IV PUSH breakthru pain Last administered on 10/24/17 20:42; Start 09/24/17 at 16:30; Stop 11/01/17 at 12: 56; Status DC Metoprolol Tartrate (Lopressor) 25 mg Q8H PO Last administered on 09/25/17 05 :25; Start 09/25/17 at 05:00; Stop 09/25/17 at 09:29; Status DC Potassium Bicarb/ Potassium Chloride (K-Lyte Cl Eff) 50 meq ONCE ONCE PO Last administered on 09/25/17 05:25; Start 09/25/17 at 04:30; Stop 09/25/17 at 04:31; Status DC Sodium Chloride 1,000 ml @ 42 mls/hr [id number] IV ; Start 09/25/17 at 10:00; Stop 09/25/17 at 10:00; Status DC Glucagon (Glucagon Inj) 1 mg UNSCH PRN OTHER HYPOGLYCEMIA-SEE COMMENTS; Start 09/25/17 at 09:30 Insulin Aspart (NovoLOG SUPPLEMENTAL SCALE) 1 Q6H SQ Last administered on 18:16; Start 09/25/17 at 12:00 Acetaminophen (Tylenol) 650 mg Q6H PRN G-TUBE PAIN 1-5 AND/OR FEVER >101F Last administered on 10/15/17 23:34; Start 09/25/17 at 12:45 Amlodipine Besylate (Norvasc) 10 mg DAILY G-TUBE Last administered on 09:44; Start 09/26/17 at 09:00 Atorvastatin Calcium (Lipitor) 40 mg HS DOBHOFF Last administered on 11/05/17 21:36; Start 09/25/17 at 21:00 Clonidine (Catapres) 0.3 mg Q8HR G-TUBE Last administered on 11/06/17 05:57; Start 09/25/17 at 14:00 Senna/Docusate Sodium (Melina-Colace) 1 tab BID G-TUBE Last administered on 09:07; Start 09/25/17 at 21:00 Hydralazine HCl (Apresoline) 100 mg Q8HR G-TUBE Last administered on 11/06/17 05:57; Start 09/25/17 at 14:00 Metoprolol Tartrate (Lopressor) 25 mg Q8H G-TUBE ; Start 09/25/17 at 13:00; Stop 09/25/17 at 13:00; Status DC Oxycodone HCl (Roxicodone Intensol Liq) 5 mg Q6H PRN G-TUBE pain 6-10 Last administered on 11/01/17 10:56; Start 09/25/17 at 15:00; Stop 11/01/17 at 13: 17; Status DC Polyethylene Glycol (Miralax) 17 gm BID G-TUBE Last administered on 10/27/17 09:41; Start 09/25/17 at 21:00 Propranolol HCl (Inderal) 40 mg Q6HR G-TUBE Last administered on 11/06/17 05: 57; Start 09/25/17 at 12:00 Quetiapine Fumarate (SEROquel) 50 mg Q8HR G-TUBE Last administered on 05:58; Start 09/25/17 at 14:00 Albuterol Sulfate (Albuterol Neb) 2.5 mg Q2HR NEB PRN NEB sob/wheeze Last administered on 11/03/17 06:06; Start 09/25/17 at 13:30 Cefuroxime Axetil (Ceftin) 500 mg Q12HR PO Last administered on 10/03/17t 09: 03; Start 09/26/17 at 11:15; Stop 10/03/17 at 11:14; Status DC Sodium Chloride 250 ml @ 15 mls/hr ONCE ONCE IV ; Start 09/28/17 at 10:15; Stop 09/28/17 at 16:53; Status DC Chlorhexidine Gluconate (Peridex 0.12% Liq) 15 ml TID SWISH-SPIT Last administered on 11/03/17 09:36; Start 10/11/17 at 18:00 Methylprednisolone Sodium Succinate (SoluMEDROL INJ) 125 mg ONCE ONCE IV PUSH Last administered on 10/20/17at 13:09; Start 10/20/17 at 12:15; Stop 10/20/17 at 12:16; Status DC Albuterol/ Ipratropium (Duoneb Neb) 1 ampule Q6HR NEB NEB Last administered on 10/27/17at 10:00; Start 10/23/17 at 16:00; Stop 10/27/17 at 13:18; Status DC Gabapentin (Neurontin) 100 mg TID PO Last administered on 11/06/17at 09:44; Start 10/26/17 at 13:00 Insulin Detemir (Levemir Inj) 18 units Q12H SQ ; Start 10/30/17 at 22:00; Stop 11/01/17 at 10:22; Status DC Insulin Detemir (Levemir Inj) 15 units Q12H SQ Last administered on 11/06/17at 09:44; Start 11/01/17 at 22:00 Morphine Sulfate (Morphine Inj) 2 mg Q3H PRN IM BREAKTHROUGH PAIN Last administered on 11/01/17at 13:25; Start 11/01/17 at 13:00 Oxycodone HCl (Roxicodone Intensol Liq) 5 mg Q4H PRN G-TUBE pain 6-10 Last administered on 11/02/17at 09:47; Start 11/01/17 at 15:00; Stop 11/02/17 at 11:43 ; Status DC Oxycodone HCl (Roxicodone) 10 mg Q4H PRN PO PAIN 6-10 Last administered on 11/05at 18:15; Start 11/02/17 at 14:00 A/P Problem List: (1) Intracranial hemorrhage ICD Code: I62.9 - Nontraumatic intracranial hemorrhage, unspecified Status: Acute Assessment and Plan Assessment and Plan A/P Acute encephalopathy - improving. Left Thalamic Hemorrhage Intracerebral Hemorrhage - Repeat CT of the head showed improving bleed - Neurosurgery follow-up appreciated; stable for dc to SNF per neurosurgery. - Continue rehabilitation efforts with PT, OT, speech - On Seroquel to control agitated delirium. Roxicodone as needed for pain Anemia likely due to chronic disease. H/H fairly stable. will monitor periodically. Healthcare associated pneumonia treated. UTI: treated. Respiratory failure s/p trach trach has been removed. will monitor. pulmonary f/u appreciated. diabetes mellitus - continue Levemir 15 units SQ q12h - Continue sliding scale insulin with Accu-Cheks. - hemoglobin A1c 9.1. Hypertension - Intermittent hypertension now well controlled - Continue clonidine, amlodipine and propranolol - Continue hydralazine. Nutrition status: - Status post PEG tube - -on diet now per ST. -calorie count in process- will consider removing the PEG- pending the result of calorie count. Acute kidney injury, most likely has CKD per nephrology: Renal function stabilized. - monitor renal function periodically. fever repeat UA/UC- will monitor temps. pain to the right leg. DVT with no evidence of DVT- continue pain control. diplopia neurosurgery f/u appreciated and recommended ophthalmology consult; ophthalmology consulted. Physical deconditioning/right sided hemiparesis - OOB to stretcher chair daily - PT/OT following AND SPEECH PROPH: - SCD's. Pepcid for GI prophylaxis Discharge Planning Await case management ability to find SNF VS INPATIENT REHAB FOR AGGRESSIVE PT AND OT AND Kalen Webb DO Nov 06, 2017 11:32
[2017-11-06 11:52] LABS: AUTOMATED NEUTROPHIL # 5.3 TH/MM3 (1.8-7.7); BASOPHIL # 0.1 TH/MM3 (0-0.2); BASOPHIL % 0.8 % (0.0-2.0); EOSINOPHIL # 0.1 TH/MM3 (0-0.4); EOSINOPHIL % 1.8 % (0.0-4.0); HEMATOCRIT 26.2 % (39.0-51.0); HEMOGLOBIN 8.5 GM/DL (13.0-17.0); LYMPH % 16.4 % (9.0-44.0); LYMPHOCYTE # 1.2 TH/MM3 (1.0-4.8); MEAN CELL VOLUME 78.5 FL (80.0-100.0); MEAN CORPUSCULAR HEMOGLOBIN 25.5 PG (27.0-34.0); MEAN CORPUSCULAR HGB CONC 32.4 % (32.0-36.0); MEAN PLATELET VOLUME 8.9 FL (7.0-11.0); MONO % 10.3 % (0.0-8.0); MONOCYTE # 0.8 TH/MM3 (0-0.9); NEUT % 70.7 % (16.0-70.0); PLATELET COUNT 345 TH/MM3 (150-450); RED BLOOD COUNT 3.33 MIL/MM3 (4.50-5.90); RED CELL DISTRIBUTION WIDTH 15.5 % (11.6-17.2); WHITE BLOOD COUNT 7.5 TH/MM3 (4.0-11.0)
--- NOTE | 2017-11-06 20:56 | HHI.PR ---
Subjective Remarks Patient is lying in bed in NAD. Afebrile. Has fenestrated trach On RA Tolerates PO Trach decannualted Objective Vital Signs Vital Signs Date Time Temp Pulse Resp B/P (MAP) Pulse Ox O2 Delivery O2 Flow Rate FiO2 11/06/17 20:21 Room Air 11/06/17 16:00 98.2 80 17 119/68 (85) 93 11/06/17 12:00 98.8 81 17 131/78 (95) 92 11/06/17 08:05 95 11/06/17 08:00 98.9 83 18 114/69 (84) 90 11/06/17 07:00 Room Air 11/06/17 04:00 98.3 82 17 122/71 (88) 96 11/06/17 00:00 100.5 86 18 107/79 (88) 95 I/O 11/05/17 11/05/17 11/05/17 11/06/17 11/06/17 11/06/17 07:00 15:00 23:00 07:00 15:00 23:00 Intake Total 360 ml Output Total 750 ml 350 ml Balance -750 ml 10 ml Intake Oral 360 ml Output Urine Total 750 ml 350 ml # Bowel Movements 0 Result Diagram: 11/06/17 1120 Objective Remarks GENERAL: Patient is lying in bed in NAD SKIN: Warm and dry. HEAD: Normocephalic. EYES: No scleral icterus. No injection or drainage. NECK: Supple, trachea midline. No JVD or lymphadenopathy. CARDIOVASCULAR: Regular rate and rhythm without murmurs, gallops, or rubs. RESPIRATORY: Breath sounds equal bilaterally. No accessory muscle use. GASTROINTESTINAL: Abdomen soft, non-tender, nondistended. MUSCULOSKELETAL: No cyanosis, or edema. BACK: Nontender without obvious deformity. No CVA tenderness. Neuro: Awake and alert A/P Assessment and Plan Resp failure S/P Trach HTN s/p ICH, right side flaccid Pneumonia PLAN Bronchodilators Pulm toilet, Continue treatment plan. Jesus Villar MD Nov 06, 2017 20:56
[2017-11-06] MEDS: ATORVASTATIN 40 MG TAB DOBHOFF SCH (21:28)
[2017-11-06] MEDS: ACETAMINOPHEN 325 MG TAB G-TUBE PRN (23:56)
[2017-11-07] VITALS (8 sets, daily range): BP systolic 100–131; BP diastolic 59–85; PULSE 73–85; RESP 17–20; TEMP 97.5–101.7; O2SAT 92–98
[2017-11-07] MEDS: FREE WATER G-TUBE SCH ×3 (03:17→20:12)
[2017-11-07] MEDS: hydrALAZINE HCL 100 MG TAB G-TUBE SCH ×3 (05:40→21:30)
[2017-11-07] MEDS: PROPRANOLOL HCL 40 MG TAB G-TUBE SCH ×3 (05:40→18:48)
[2017-11-07] MEDS: QUEtiapine FUMARATE 25 MG TAB G-TUBE SCH ×3 (05:40→21:30)
[2017-11-07] MEDS: INSULIN ASPART SUPPLEMENTAL SCALE SQ SCH ×4 (05:40→20:11)
[2017-11-07] MEDS: cloNIDine HCL 0.3 MG TAB G-TUBE SCH ×3 (05:40→21:30)
[2017-11-07] MEDS: CHLORHEXIDINE GLUCONATE 0.12% 15 ML CUP SWISH-SPIT SCH ×3 (09:00→18:00)
[2017-11-07] MEDS: DOCUSATE SODIUM 50 MG/SENNA 8.6 MG TAB G-TUBE SCH ×2 (09:00→21:30)
[2017-11-07] MEDS: POLYETHYLENE GLYCOL 17 GM PKG G-TUBE SCH ×2 (09:00→20:12)
--- NOTE | 2017-11-07 09:20 | HHI.PR ---
Subjective Remarks 1-11 Patient seen and examined [place] Of trach capping unsuccessful AWAIT SAFE PLACEMENT RIGHT SIDE IS LESS FLACCID 1-12 MOVING RIGHT SIDE MORE- NOT TOTALLY FLACCID MOVING LEFT SIDE WELL CONTINUE PT AND OT 1- TOLERATING PASSY DIANA VALVE MOVING RIGHT SIDE MORE TO URIZ WHEN BED AVAILABLE 1-14 HAS PASSY DIANA VALVE IN PLACE NO NEW COMPLAINTS DW RN AND PT MOVING RIDE SIDE SOME NOW AWAIT RUIZ PLACEMENT 15 WANTS TO EAT BUT NEEDS SPEECH CLEARANCE FOR THAT DW RN AND PT HOPEFULLY TO RUIZ SOON NEEDS PT AND OT AND ST 116 NOT CLEARED BY SPEECH TO EAT YET DW RN AND PT AWAIT RUIZ HAVING SOME PAIN IN RIGHT ARM/LEG 10-27 DIET STARTED CLEARED BY SPEECH FOR DIET DW PATIENT AND RN WORKING WITH PT AND OT PASSY DIANA VALVE IN PLACE CONTINUE PT AND OT 11-06 TRACH HAS BEEN REMOVED TALKING WELL EATING WELL ON CALORIE COUNT CONTINUE PT AND OT PLACEMENT PENDING 11-07 continue on calorie count Hopefully PEG TUBE CAN be removed later this week if he is tolerating MORE OF A diet Objective Vitals Vital Signs Date Time Temp Pulse Resp B/P (MAP) Pulse Ox O2 Delivery O2 Flow Rate FiO2 11/07/17 04:00 98.3 73 17 111/70 (84) 97 11/07/17 04:00 Room Air 11/07/17 00:00 100.9 82 20 105/85 (92) 97 11/07/17 00:00 Room Air 11/06/17 20:00 Room Air 11/06/17 20:00 97.8 82 18 126/75 (92) 94 11/06/17 16:00 98.2 80 17 119/68 (85) 93 11/06/17 12:00 98.8 81 17 131/78 (95) 92 I/O 11/06/17 11/06/17 11/06/17 11/07/17 11/07/17 11/07/17 07:00 15:00 23:00 07:00 15:00 23:00 Intake Total 360 ml Output Total 1000 ml Balance -640 ml Intake Oral 360 ml Output Urine Total 1000 ml Result Diagram: 11/06/17 1120 Other Results Laboratory Tests Test 11/06/17 11:20 White Blood Count 7.5 TH/MM3 Red Blood Count 3.33 MIL/MM3 Hemoglobin 8.5 GM/DL Hematocrit 26.2 % Mean Corpuscular Volume 78.5 FL Mean Corpuscular Hemoglobin 25.5 PG Mean Corpuscular Hemoglobin Concent 32.4 % Red Cell Distribution Width 15.5 % Platelet Count 345 TH/MM3 Mean Platelet Volume 8.9 FL Neutrophils (%) (Auto) 70.7 % Lymphocytes (%) (Auto) 16.4 % Monocytes (%) (Auto) 10.3 % Eosinophils (%) (Auto) 1.8 % Basophils (%) (Auto) 0.8 % Neutrophils # (Auto) 5.3 TH/MM3 Lymphocytes # (Auto) 1.2 TH/MM3 Monocytes # (Auto) 0.8 TH/MM3 Eosinophils # (Auto) 0.1 TH/MM3 Basophils # (Auto) 0.1 TH/MM3 CBC Comment DIFF FINAL Differential Comment Imaging Last Impressions Lower Extremity Ultrasound 11/02/17 0000 Signed Impressions: Service Date/Time: Thursday, November 02, 2017 13:14 - CONCLUSION: 1. No sonographic evidence for right lower extremity DVT. Darrell Robles MD Chest X-Ray 10/31/17 0000 Signed Impressions: Service Date/Time: Tuesday, October 31, 2017 13:18 - CONCLUSION: Possible mild CHF. K. Luigi Malik MD Head CT 10/27/17 1001 Signed Impressions: Service Date/Time: Friday, October 27, 2017 10:55 - CONCLUSION: 1. Small area of encephalomalacia in the left basal ganglia corresponding to the area of hemorrhage seen on the previous exam. No new areas of hemorrhage are seen. No significant mass effect is identified. Ant Reece MD Maxillofacial CT 09/16/17 0000 Signed Impressions: Service Date/Time: September 01:03 - CONCLUSION: 1. Evidence of acute pansinusitis. 2. Opacification of multiple bilateral mastoid air cells most characteristic of mastoiditis. 3. Mildly prominent cervical chain nodes which may be reactive. Angelo Conn MD Upper Extremity Ultrasound 09/15/17 0000 Signed Impressions: Service Date/Time: Friday, September 15, 2017 17:14 - CONCLUSION: Occlusive thrombus within the left cephalic vein and nonocclusive thrombus within the right cephalic vein. Ric Jack MD Chest CT 09/13/17 0000 Signed Impressions: Service Date/Time: Wednesday, September 13, 2017 09:28 - CONCLUSION: 1. Bibasilar and left lingular dependent atelectatic changes. Lungs are otherwise clear. 2. Tracheostomy tube with the tip probably positioned above the connie. 3. Compensated cardiomegaly. Reyes Guzman MD Abdomen/Pelvis CT 09/13/17 0000 Signed Impressions: Service Date/Time: Wednesday, September 13, 2017 09:28 - CONCLUSION: 1. There is some stranding in the retroperitoneal perivascular tissues around the distal aorta extending into the bifurcation with a regional borderline lymph nodes. Findings are characteristic of a nonspecific inflammatory process. Findings could represent early retroperitoneal fibrosis.. 2. Urinary bladder is decompressed with some mural thickening in pericystic inflammatory changes possibly representing a chronic cystitis. Nondependent air could be associated with a recent catheterization/instrumentation. 3. Small umbilical and right inguinal hernias only contain fat. 4. Bilateral dependent basilar and left lingular atelectatic changes. Heart size is borderline prominent. 5. Otherwise , bowel is intact without obstruction to explain abdominal distention Reyes Guzman MD Abdomen X-Ray 09/10/17 0600 Signed Impressions: Service Date/Time: Sunday, September 10, 2017 03:56 - CONCLUSION: No significant abnormality is identified. There is mild distention of the colon but there are no findings to suggest bowel obstruction or significant ileus. Ignacio Underwood MD Liver Ultrasound 09/07/17 0000 Signed Impressions: Service Date/Time: Thursday, September 07, 2017 12:37 - CONCLUSION: 1. Unremarkable sonographic appearance of the liver. No evidence for hepatic volume loss or intrahepatic ductal dilatation. 2. No sonographic evidence for cholelithiasis or acute cholecystitis. 3. Mild increased right renal echogenicity may reflect medical renal disease. 4. Small bilateral pleural effusions. 5. Pancreas and inferior pole of the right kidney are obscured by bowel gas and therefore not evaluated. Darrell Robles MD Renal Ultrasound 08/31/17 0000 Signed Impressions: Service Date/Time: Thursday, August 31, 2017 17:42 - CONCLUSION: 1. No evidence of hydronephrosis on either side. 2. Solitary linear echogenic focus in the upper pole parenchyma of the right kidney has similar features to prior examination in January 2017 and possibly represents a calcification. David Snell MD Neck CTA [id number] Signed Impressions: Service Date/Time: Tuesday, August 29, 2017 00:13 - CONCLUSION: Negative carotid CTA. David Snell MD Head CTA [id number] Signed Impressions: Service Date/Time: Tuesday, August 29, 2017 00:13 - CONCLUSION: 1. No evidence of vessel truncation or aneurysm. 2. No abnormal vessels in the region of the large left thalamic hemorrhage. David Snell MD Objective Remarks GENERAL: Awake and alert moves left side- LESS flaccid on the right side - MOVING SOME-- TRACHEOSTOMY HAS BEEN REMOVED and STILL HAS PEG tube in place SKIN: Warm and dry. HEAD: Atraumatic. Normocephalic. EYES: Pupils equal and round. No scleral icterus. No injection or drainage. ENT: No nasal bleeding or discharge. Mucous membranes pink and moist. NECK: Trachea midline. No JVD. TRACHEOSTOMY HAS BEEN REMOVED- WOUND HEALING UP CARDIOVASCULAR: Regular rate and rhythm. S1 and S2 no S3 or S4 RESPIRATORY: No accessory muscle use.. Breath sounds equal bilaterally. Coarse breath sounds bilaterally GASTROINTESTINAL: Abdomen soft, non-tender, nondistended. Hepatic and splenic margins not palpable. PEG tube MUSCULOSKELETAL: Extremities without clubbing, cyanosis, or edema. No obvious deformities. Right side flaccid moves left side NEUROLOGICAL: Awake and alert. No obvious cranial nerve deficits. Motor grossly within normal limits. Five out of 5 muscle strength in the left arms and legs--LESS flaccid on the right- NO MOVING SOME. PSYCHIATRIC: Appropriate mood and affect; insight and judgment GOOD Procedures Tracheostomy and PEG placement TRACHEOSTOMY REMOVAL Medications and IVs Current Medications Sodium Chloride 1,000 ml @ 70 mls/hr [id number] ONCE IV ; Start 08/28/17 at 23:47 ; Stop 08/29/17 at 14:04; Status DC Nicardipine HCl 25 mg/Sodium Chloride 250 ml @ 50 mls/hr TITRATE PRN IV Blood pressure management; Start 08/29/17 at 00:00; Stop 08/29/17 at 00:48; Status DC Propofol 100 ml @ 0 mls/hr TITRATE PRN IV SEDATION; Start 08/29/17 at 00:00; Stop 08/29/17 at 00:40; Status DC Propofol 100 ml @ As Directed STK-MED ONCE .ROUTE ; Start 08/28/17 at 23:57; Stop 08/28/17 at 23:58; Status DC Etomidate (Amidate Inj) 20 mg ONCE ONCE IVP ; Start 08/29/17 at 00:00; Stop 08/29/17 at 00:01; Status DC Succinylcholine Chloride (Quelicin Inj) 100 mg ONCE ONCE IV PUSH ; Start 08/29 at 00:00; Stop 08/29/17 at 00:01; Status DC Sodium Chloride (NS Flush) 2 ml UNSCH PRN IVF FLUSH AFTER USING IV ACCESS Last administered on 10/24/17at 20:44; Start 08/29/17 at 00:00 Rocuronium Davidson (Zemuron Inj) 50 mg BOLUS ONCE IV ; Start 08/29/17 at 00:15 ; Stop 08/29/17 at 00:17; Status DC Iohexol (Omnipaque 350 Inj) 100 ml STK-MED ONCE IVCONTRAST Last administered on 08/29/17 00:18; Start 08/29/17 at 00:18; Stop 08/29/17 at 00:19; Status DC Chlorhexidine Gluconate (Peridex 0.12% Liq) 15 ml BID@08,20 MT Last administered on 10/11/17at 09:59; Start 08/29/17 at 08:00; Stop 10/11/17 at 14:08 ; Status DC Propofol 100 ml @ 3 mls/hr TITRATE PRN IV SEDATION; Start 08/29/17 at 00:45; Stop 08/29/17 at 04:17; Status DC Nicardipine HCl (Cardene Inj) 25 mg STK-MED ONCE .ROUTE ; Start 08/29/17 at 00: 36; Stop 08/29/17 at 00:37; Status DC Nicardipine HCl 25 mg/Sodium Chloride 250 ml @ 50 mls/hr TITRATE PRN IV BLOOD PRESSURE MANAGEMENT Last administered on 09/02/17 09:52; Start 08/29/17 at 00 :45; Stop 09/02/17 at 21:12; Status DC Labetalol HCl (Trandate Inj) 10 mg Q20M PRN IV PUSH SBP>140, DBP>90 Last administered on 09/19/17 02:16; Start 08/29/17 at 00:45 Amlodipine Besylate (Norvasc) 10 mg DAILY PO Last administered on 09/24/17 09 :14; Start 08/29/17 at 09:00; Stop 09/25/17 at 09:29; Status DC Lisinopril (Prinivil) 40 mg DAILY PO Last administered on 09/04/17 09:07; Start 08/29/17 at 09:00; Stop 09/04/17 at 12:18; Status DC Sodium Chloride 1,000 ml @ 75 mls/hr [id number] IV Last administered on 06:03; Start 08/29/17 at 00:43; Stop 08/31/17 at 11:07; Status DC Acetaminophen (Tylenol) 650 mg Q6H PRN PO PAIN 1-5 AND/OR FEVER >101F Last administered on 09/23/17 03:09; Start 08/29/17 at 00:45; Stop 09/25/17 at 09 :29; Status DC Morphine Sulfate (Morphine Inj) 2 mg Q2H PRN IV PUSH PAIN SCALE 6 TO 10 Last administered on 09/17/17 03:33; Start 08/29/17 at 00:45; Stop 09/24/17 at 16: 27; Status DC Pantoprazole Sodium (Protonix Inj) 40 mg DAILY IV PUSH Last administered on 09:15; Start 08/29/17 at 09:00; Stop 09/11/17 at 10:25; Status DC Ondansetron HCl (Zofran Inj) 4 mg Q6H PRN IV PUSH NAUSEA OR VOMITING Last administered on 09/11/17 14:18; Start 08/29/17 at 00:45 Albuterol/ Ipratropium (Duoneb Neb) 1 ampule Q4HR NEB PRN INH WHEEZING Last administered on 09/15/17 11:55; Start 08/29/17 at 00:45; Stop 09/17/17 at 12: 47; Status DC Miscellaneous Information 1 [id number] Last administered on 08/29/17 01:00; Start 08/29/17 at 00:45; Stop 10/24/17 at 04:26; Status DC Chlorhexidine Gluconate (Chlorhexidine 2% Cloth) Taper DAILY@04 TOP ; Start at 04:00; Stop 10/24/17 at 04:26; Status DC Chlorhexidine Gluconate (Chlorhexidine 2% Cloth) 3 pack UNSCH PRN TOP HYGIENIC CARE; Start 08/29/17 at 00:45; Stop 10/24/17 at 04:26; Status DC Senna/Docusate Sodium (Melina-Colace) 1 tab BID PO Last administered on 09:15; Start 08/29/17 at 09:00; Stop 08/31/17 at 11:08; Status DC Magnesium Hydroxide (Milk Of Magnesia Liq) 30 ml Q12H PRN PO Mild constipation ; Start 08/29/17 at 00:45; Stop 08/31/17 at 11:08; Status DC Sennosides (Senokot) 17.2 mg Q12H PRN PO Moderate constipation; Start at 00:45; Stop 08/31/17 at 11:08; Status DC Bisacodyl (Dulcolax Supp) 10 mg DAILY PRN RECTAL SEVERE CONSITIPATION; Start 08/29/17 at 00:45; Stop 08/31/17 at 11:08; Status DC Lactulose (Lactulose Liq) 30 ml DAILY PRN PO SEVERE CONSITIPATION; Start 08/29 at 00:45; Stop 08/31/17 at 11:08; Status DC Fentanyl Citrate 250 ml @ 5 mls/hr TITRATE PRN IV SEDATION Last administered on 09/11/17 06:14; Start 08/29/17 at 00:45; Stop 09/11/17 at 10:20; Status DC Fentanyl Citrate 250 ml @ As Directed STK-MED ONCE .ROUTE ; Start 08/29/17 at 01:30; Stop 08/29/17 at 04:10; Status DC Propofol 100 ml @ 3 mls/hr TITRATE PRN IV SEDATION Last administered on 07:37; Start 08/29/17 at 04:30; Stop 08/31/17 at 11:08; Status DC Rocuronium Davidson (Zemuron Inj) 100 mg STAT ONCE IV Last administered on 02:00; Start 08/29/17 at 02:00; Stop 08/29/17 at 04:18; Status DC Atorvastatin Calcium (Lipitor) 40 mg HS PO Last administered on 09/24/17 20: 43; Start 08/29/17 at 21:00; Stop 09/25/17 at 09:29; Status DC Hydrochlorothiazide (Hydrodiuril) 25 mg DAILY PO Last administered on 10:37; Start 08/29/17 at 09:00; Stop 09/08/17 at 11:02; Status DC Metoprolol Tartrate (Lopressor) 100 mg BID PO Last administered on 08/31/17 09:15; Start 08/29/17 at 09:00; Stop 09/11/17 at 10:20; Status DC Clonidine (Catapres) 0.1 mg Q8HR PO Last administered on 09/06/17 04:55; Start 08/29/17 at 06:00; Stop 09/06/17 at 11:33; Status DC Sodium Chloride 1,000 ml @ 999 mls/hr Q1H1M ONCE IV Last administered on 08/29 06:10; Start 08/29/17 at 06:30; Stop 08/29/17 at 07:30; Status DC Magnesium Oxide (Mag-Ox) 800 mg UNSCH PRN PO For Magnesium 1.2 - 1.6 mg/dL; Start 08/29/17 at 13:15; Stop 08/30/17 at 15:34; Status DC Magnesium Sulfate 4 gm/Sodium Chloride 100 ml @ 50 mls/hr UNSCH PRN IV For Magnesium 0.9 - 1.1 mg/dL; Start 08/29/17 at 13:15; Stop 08/30/17 at 15:34; Status DC Magnesium Sulfate 2 gm/Sodium Chloride 100 ml @ 50 mls/hr UNSCH PRN IV For Magnesium 1.2 - 1.6 mg/dL; Start 08/29/17 at 13:15; Stop 08/30/17 at 15:34; Status DC Potassium Chloride 100 ml @ 50 mls/hr Q2H PRN IV For Potassium 2.8 - 3.2 mEq/ L Last administered on 08/29/17 17:06; Start 08/29/17 at 13:15; Stop at 15:34; Status DC Potassium Chloride 100 ml @ 50 mls/hr Q2H PRN IV For Potassium 3.3 - 3.5 mEq/ L Last administered on 08/30/17 06:13; Start 08/29/17 at 13:15; Stop at 15:34; Status DC Potassium Chloride 100 ml @ 50 mls/hr Q2H PRN IV For Potassium 2.8 - 3.2 mEq/L ; Start 08/29/17 at 13:15; Stop 08/30/17 at 15:34; Status DC Potassium Chloride 100 ml @ 25 mls/hr UNSCH PRN IV For Potassium 3.3 - 3.5 mEq /L; Start 08/29/17 at 13:15; Stop 08/30/17 at 15:34; Status DC Potassium Phosphate (K-Phos) 2,000 mg Q4H PRN PO For Phosphorus < 2.5 mg/dL; Start 08/29/17 at 13:15; Stop 08/30/17 at 15:34; Status DC Potassium Phosphate (K-Phos) 2,000 mg UNSCH PRN PO/TUBE SEE LABEL COMMENTS; Start 08/29/17 at 13:15; Stop 08/30/17 at 15:34; Status DC Potassium Phosphate 30 mmol/ Sodium Chloride 260 ml @ 42 mls/hr UNSCH PRN IV SEE LABEL COMMENTS; Start 08/29/17 at 13:15; Stop 08/30/17 at 15:34; Status DC Sodium Phosphate 30 mmol/Sodium Chloride 250 ml @ 42 mls/hr UNSCH PRN IV For Phosphorus < 2.5 mg/dL; Start 08/29/17 at 13:15; Stop 08/30/17 at 15:34; Status DC Dextrose (D50w (Vial) Inj) 25 ml UNSCH PRN IV PUSH HYPOGLYCEMIA-SEE COMMENTS; Start 08/30/17 at 08:15; Stop 09/18/17 at 11:53; Status DC Insulin Human Regular (NovoLIN R SUPPLEMENTAL SCALE) 1 Q6HR SQ Last administered on 09/18/17t 05:34; Start 08/30/17 at 12:00; Stop 09/18/17 at 11: 53; Status DC Magnesium Oxide (Mag-Ox) 800 mg UNSCH PRN PO For Magnesium 1.2 - 1.6 mg/dL; Start 08/30/17 at 08:15; Stop 08/31/17 at 13:02; Status DC Magnesium Sulfate 4 gm/Sodium Chloride 100 ml @ 50 mls/hr UNSCH PRN IV For Magnesium 0.9 - 1.1 mg/dL; Start 08/30/17 at 08:15; Stop 08/31/17 at 13:02; Status DC Magnesium Sulfate 2 gm/Sodium Chloride 100 ml @ 50 mls/hr UNSCH PRN IV For Magnesium 1.2 - 1.6 mg/dL; Start 08/30/17 at 08:15; Stop 08/31/17 at 13:02; Status DC Potassium Chloride 100 ml @ 50 mls/hr Q2H PRN IV For Potassium 2.8 - 3.2 mEq/L ; Start 08/30/17 at 08:15; Stop 08/31/17 at 13:02; Status DC Potassium Chloride 100 ml @ 50 mls/hr Q2H PRN IV For Potassium 3.3 - 3.5 mEq/L ; Start 08/30/17 at 08:15; Stop 08/31/17 at 13:02; Status DC Potassium Chloride 100 ml @ 50 mls/hr Q2H PRN IV For Potassium 2.8 - 3.2 mEq/L ; Start 08/30/17 at 08:15; Stop 08/31/17 at 13:02; Status DC Potassium Chloride 100 ml @ 25 mls/hr UNSCH PRN IV For Potassium 3.3 - 3.5 mEq /L; Start 08/30/17 at 08:15; Stop 08/31/17 at 13:02; Status DC Potassium Phosphate (K-Phos) 2,000 mg Q4H PRN PO For Phosphorus < 2.5 mg/dL; Start 08/30/17 at 08:15; Stop 08/31/17 at 13:02; Status DC Potassium Phosphate (K-Phos) 2,000 mg UNSCH PRN PO/TUBE SEE LABEL COMMENTS; Start 08/30/17 at 08:15; Stop 08/31/17 at 13:02; Status DC Potassium Phosphate 30 mmol/ Sodium Chloride 260 ml @ 42 mls/hr UNSCH PRN IV SEE LABEL COMMENTS; Start 08/30/17 at 08:15; Stop 08/31/17 at 13:02; Status DC Sodium Phosphate 30 mmol/Sodium Chloride 250 ml @ 42 mls/hr UNSCH PRN IV For Phosphorus < 2.5 mg/dL; Start 08/30/17 at 08:15; Stop 08/31/17 at 13:02; Status DC Hydralazine HCl (Apresoline Inj) 10 mg Q30M PRN IV PUSH sbp > 160 Last administered on 09/19/17 09:08; Start 08/30/17 at 08:15 Oxycodone HCl (Roxicodone Intensol Liq) 5 mg Q4H PO Last administered on 09:16; Start 08/30/17 at 09:00; Stop 08/31/17 at 11:07; Status DC Dexmedetomidine HCl 50 ml @ 29.9 mls/hr TITRATE IV ; Start 08/30/17 at 14:15; Stop 08/30/17 at 14:46; Status DC Dexmedetomidine HCl 200 mcg/ Sodium Chloride 50 ml @ 29.9 mls/hr TITRATE IV Last administered on 08/30/17 15:27; Start 08/30/17 at 15:00; Stop 08/30/17 at 16:42; Status DC Dexmedetomidine HCl 1000 mcg/ Sodium Chloride 250 ml @ 29.9 mls/hr TITRATE IV Last administered on 08/30/17 17:58; Start 08/30/17 at 16:45; Stop 08/31/17 at 06:14; Status DC Propofol 100 ml @ 14.352 mls/ hr TITRATE PRN IV SEDATION Last administered on 09/10/17 09:59; Start 08/31/17 at 00:30; Stop 09/11/17 at 10:20; Status DC Piperacillin Sod/ Tazobactam Sod 100 ml @ 200 mls/hr Q6HR IV Last administered on 09/01/17 13:02; Start 08/31/17 at 06:00; Stop 09/01/17 at 14 :52; Status DC Morphine Sulfate (Morphine Inj) 10 mg ONCE ONCE IV PUSH Last administered on 08/31/17 06:31; Start 08/31/17 at 06:30; Stop 08/31/17 at 06:31; Status DC Propranolol HCl (Inderal) 10 mg ONCE ONCE PO Last administered on 08/31/17 06:30; Start 08/31/17 at 06:15; Stop 08/31/17 at 06:20; Status DC Oxycodone HCl (Roxicodone Intensol Liq) 10 mg Q4H PO Last administered on 09:17; Start 08/31/17 at 13:00; Stop 09/11/17 at 10:20; Status DC Propranolol HCl (Inderal) 10 mg Q6HR PO Last administered on 09/11/17 05:37; Start 08/31/17 at 12:00; Stop 09/11/17 at 10:20; Status DC Quetiapine Fumarate (SEROquel) 100 mg Q8HR PO Last administered on 09/11/17 05 :37; Start 08/31/17 at 11:00; Stop 09/11/17 at 10:20; Status DC Haloperidol Lactate (Haldol Inj) 5 mg Q4H PRN IV agitation Last administered on 09/12/17 23:04; Start 08/31/17 at 11:00; Stop 09/25/17 at 09:30; Status DC Magnesium Sulfate/ Dextrose 100 ml @ 100 mls/hr Q1H IV Last administered on 12:22; Start 08/31/17 at 12:00; Stop 08/31/17 at 13:00; Status DC Bisacodyl (Dulcolax Supp) 10 mg DAILY RECTAL Last administered on 08/31/17 11 :58; Start 08/31/17 at 12:00; Stop 09/25/17 at 09:30; Status DC Polyethylene Glycol (Miralax) 17 gm BID PO Last administered on 09/20/17 09: 26; Start 08/31/17 at 12:00; Stop 09/25/17 at 09:29; Status DC Lactulose (Lactulose Liq) 30 ml BID PO Last administered on 09/04/17 19:57; Start 08/31/17 at 12:00; Stop 09/25/17 at 09:30; Status DC Senna/Docusate Sodium (Melina-Colace) 1 tab BID PO Last administered on 09:14; Start 08/31/17 at 12:00; Stop 09/25/17 at 09:29; Status DC Magnesium Citrate (Citroma Liq) 300 ml ONCE ONCE PO Last administered on 08/31 11:57; Start 08/31/17 at 12:00; Stop 08/31/17 at 12:01; Status DC Rocuronium Davidson (Zemuron Inj) 50 mg STK-MED ONCE .ROUTE Last administered on 08/31/17 14:36; Start 08/31/17 at 14:36; Stop 08/31/17 at 14:37; Status DC Calcium Acetate (Phoslo) 667 mg TID PO Last administered on 09/08/17 10:38; Start 08/31/17 at 18:00; Stop 09/08/17 at 11:02; Status DC Rocuronium Davidson (Zemuron Inj) 50 mg STAT ONCE IV Last administered on 08/31 16:00; Start 08/31/17 at 16:00; Stop 08/31/17 at 16:01; Status DC Lactated Ringer's 1,000 ml @ 999 mls/hr BOLUS ONCE IV Last administered on 21:12; Start 08/31/17 at 20:45; Stop 08/31/17 at 21:45; Status DC Piperacillin Sod/ Tazobactam Sod 50 ml @ 100 mls/hr Q6HR IV Last administered on 09/02/17 05:59; Start 09/01/17 at 18:00; Stop 09/02/17 at 10:45; Status DC Piperacillin Sod/ Tazobactam Sod 50 ml @ 100 mls/hr Q8HR IV Last administered on 09/11/17 05:37; Start 09/02/17 at 14:00; Stop 09/11/17 at 10:20; Status DC Nicardipine HCl 50 mg/Sodium Chloride 500 ml @ 50 mls/hr TITRATE PRN IV BLOOD PRESSURE MANAGEMENT Last administered on 09/05/17 22:00; Start 09/02/17 at 21 :15; Stop 09/11/17 at 10:25; Status DC Rocuronium Davidson (Zemuron Inj) 50 mg STK-MED ONCE .ROUTE Last administered on 09/03/17 09:22; Start 09/03/17 at 09:22; Stop 09/03/17 at 09:23; Status DC Rocuronium Davidson (Zemuron Inj) 50 mg NOW ONCE IV PUSH Last administered on 09/03/17 10:13; Start 09/03/17 at 10:15; Stop 09/03/17 at 10:16; Status DC Rocuronium Davidson (Zemuron Inj) 50 mg NOW ONCE IV PUSH Last administered on 09/03/17 11:00; Start 09/03/17 at 11:00; Stop 09/03/17 at 11:01; Status DC Potassium Chloride 30 meq/ Sodium Chloride 115 ml @ 38.333 mls/ hr ONCE ONCE IV-CENTRAL Last administered on 09/03/17 13:36; Start 09/03/17 at 14:00; Stop 09/03/17 at 16:59; Status DC Dexamethasone Sodium Phosphate (Decadron Inj) 6 mg Q6H IV PUSH Last administered on 09/05/17 06:09; Start 09/04/17 at 13:00; Stop 09/05/17 at 11 :55; Status DC Diphenhydramine HCl (Benadryl Inj) 50 mg Q6H IV Last administered on 08:27; Start 09/04/17 at 13:00; Stop 09/07/17 at 12:59; Status DC Lorazepam (Ativan) 2 mg Q8H PO Last administered on 09/07/17 14:35; Start at 15:00; Stop 09/07/17 at 15:18; Status DC Acetaminophen 0 ml @ As Directed STK-MED ONCE IV ; Start 09/05/17 at 07:52; Stop 09/05/17 at 07:53; Status DC Insulin Detemir (Levemir Inj) 10 units Q12H SQ Last administered on 09/11/17 09:16; Start 09/05/17 at 10:00; Stop 09/11/17 at 10:21; Status DC Dexamethasone Sodium Phosphate (Decadron Inj) 4 mg Q12H IV PUSH Last administered on 09/07/17 05:28; Start 09/05/17 at 18:00; Stop 09/07/17 at 17 :59; Status DC Albuterol/ Ipratropium (Duoneb Neb) 1 ampule Q6HR NEB NEB Last administered on 09/08/17 11:05; Start 09/05/17 at 12:00; Stop 09/08/17 at 12:59; Status DC Rocuronium Davidson (Zemuron Inj) 50 mg BOLUS STAT IV Last administered on 16:47; Start 09/05/17 at 16:37; Stop 09/05/17 at 16:38; Status DC Fluticasone Propionate (Flonase Tae Spr) 2 spray DAILY EACH NARE Last administered on 11/06/17at 09:00; Start 09/05/17 at 17:00 Lactated Ringer's 1,000 ml @ 30 mls/hr Q24H PRN IV SEE LABEL COMMENTS; Start 09/05/17 at 23:00; Stop 09/08/17 at 22:59; Status DC Sodium Chloride 500 ml @ 30 mls/hr [id number] PRN IV SEE LABEL COMMENTS; Start at 23:00; Stop 09/08/17 at 22:59; Status DC Metoprolol Tartrate (Lopressor) 25 mg STOCK PLAN ADMINISTRATOR PRN PO SEE LABEL COMMENTS; Start 09/05/17 at 23:00; Stop 09/08/17 at 22:59; Status DC Povidone Iodine (Betadine 5% Antisepsis Kit) 1 applic STOCK PLAN ADMINISTRATOR PRN EACH NARE SEE LABEL COMMENTS; Start 09/05/17 at 23:00; Stop 09/08/17 at 22:59; Status DC Chlorhexidine Gluconate (Chlorhexidine 2% Cloth) 3 pack STOCK PLAN ADMINISTRATOR PRN TOPICAL SEE LABEL COMMENTS; Start 09/05/17 at 23:00; Stop 09/08/17 at 22:59; Status DC Insulin Human Regular (NovoLIN R INJ) See Protocol Table ... STOCK PLAN ADMINISTRATOR PRN SQ SEE PROTOCOL TABLE; Start 09/05/17 at 23:00; Stop 09/08/17 at 22:59; Status DC Potassium Chloride 100 ml @ 50 mls/hr ONCE ONCE IV Last administered on 09/06 10:16; Start 09/06/17 at 09:30; Stop 09/06/17 at 11:29; Status DC Clonidine (Catapres) 0.3 mg Q8HR PO Last administered on 09/25/17 05:27; Start 09/06/17 at 14:00; Stop 09/25/17 at 09:29; Status DC Clonidine (Catapres) 0.3 mg ONCE ONCE PO Last administered on 09/06/17 11:55 ; Start 09/06/17 at 11:45; Stop 09/06/17 at 11:46; Status DC Heparin Sodium (Porcine) (Heparin Inj) 5,000 units Q12HR SQ ; Start 09/06/17 at 21:00; Stop 09/06/17 at 21:00; Status DC Gelatin (Gelfoam 12 Mm/7 Mm Top) 1 foam STK-MED ONCE .ROUTE Last administered on 09/07/17 09:47; Start 09/07/17 at 09:47; Stop 09/07/17 at 09:48; Status DC Silver Nitrate/ Potassium Nitrate (Silver Nitrate Applicators) 1 appl ONCE ONCE TOPICAL Last administered on 09/07/17 10:15; Start 09/07/17 at 10:15; Stop 09/07/17 at 10:47; Status DC Potassium Chloride 100 ml @ 50 mls/hr Q2H IV Last administered on 09/07/17 12:45; Start 09/07/17 at 10:45; Stop 09/07/17 at 14:44; Status DC Desmopressin Acetate (Ddavp Tae Spr) 1 spray ONCE ONCE EACH NARE Last administered on 09/07/17 15:00; Start 09/07/17 at 15:00; Stop 09/07/17 at 15 :01; Status DC Propofol (Diprivan 200 Mg/20 ml Inj) 200 mg STK-MED ONCE IV ; Start 09/06/17 at 12:00; Stop 09/07/17 at 15:10; Status DC Lorazepam (Ativan) 1 mg Q12H PO Last administered on 09/09/17 20:27; Start 09/07/17 at 19:00; Stop 09/11/17 at 10:25; Status DC Gelatin (Gelfoam 12 Mm/7 Mm Top) 1 foam Q2HR PRN TOPICAL if still bleeding from peg Last administered on 09/08/17 08:00; Start 09/07/17 at 19:45 Potassium Chloride 100 ml @ 50 mls/hr Q2H IV Last administered on 09/08/17 11:59; Start 09/08/17 at 09:00; Stop 09/08/17 at 12:59; Status DC Potassium Chloride (KCl) 40 meq ONCE ONCE PO ; Start 09/08/17 at 09:00; Stop 09/08/17 at 12:05; Status DC Potassium Chloride (KCl Powder) 40 meq ONCE ONCE PEG Last administered on 12:15; Start 09/08/17 at 12:15; Stop 09/08/17 at 12:21; Status DC Midazolam HCl (Versed Inj) 10 mg ONCE ONCE IV PUSH ; Start 09/08/17 at 13:00; Stop 09/08/17 at 13:41; Status DC Sodium Chloride 1,000 ml @ 999 mls/hr BOLUS ONCE IV Last administered on 13:00; Start 09/08/17 at 13:00; Stop 09/08/17 at 14:00; Status DC Rocuronium Davidson (Zemuron Inj) 100 mg BOLUS ONCE IV ; Start 09/08/17 at 13: 00; Stop 09/08/17 at 13:44; Status DC Albuterol/ Ipratropium (Duoneb Neb) 1 ampule Q6HR NEB NEB Last administered on 09/12/17 15:34; Start 09/08/17 at 16:00; Stop 09/12/17 at 15:59; Status DC Midazolam HCl (Versed Inj) 10 mg STK-MED ONCE .ROUTE Last administered on 09/08 13:39; Start 09/08/17 at 13:12; Stop 09/08/17 at 13:13; Status DC Rocuronium Davidson (Zemuron Inj) 100 mg STK-MED ONCE .ROUTE Last administered on 09/08/17 13:12; Start 09/08/17 at 13:12; Stop 09/08/17 at 13:13; Status DC Midazolam HCl (Versed Inj) 5 mg STK-MED ONCE .ROUTE Last administered on 13:52; Start 09/08/17 at 13:44; Stop 09/08/17 at 13:45; Status DC Midazolam HCl (Versed Inj) 5 mg STK-MED ONCE .ROUTE Last administered on 13:52; Start 09/08/17 at 13:49; Stop 09/08/17 at 13:50; Status DC Potassium Bicarb/ Potassium Chloride (K-Lyte Cl Eff) 25 meq ONCE ONCE PO Last administered on 09/09/17 11:15; Start 09/09/17 at 11:00; Stop 09/09/17 at 11:03; Status DC Metoclopramide HCl (Reglan Inj) 5 mg Q8HR IV PUSH Last administered on 22:55; Start 09/09/17 at 22:00; Stop 09/11/17 at 10:25; Status DC Potassium Chloride 100 ml @ 50 mls/hr Q2H IV Last administered on 09/10/17 16 :01; Start 09/10/17 at 13:00; Stop 09/10/17 at 16:59; Status DC Insulin Detemir (Levemir Inj) 12 units Q12H SQ Last administered on 09/17/17 10:42; Start 09/11/17 at 22:00; Stop 09/17/17 at 15:27; Status DC Oxycodone HCl (Roxicodone Intensol Liq) 5 mg Q4H PO Last administered on 08:28; Start 09/11/17 at 13:00; Stop 09/17/17 at 12:47; Status DC Propranolol HCl (Inderal) 30 mg Q6HR PO Last administered on 09/17/17 04:23; Start 09/11/17 at 12:00; Stop 09/17/17 at 12:47; Status DC Quetiapine Fumarate (SEROquel) 50 mg Q8HR PO Last administered on 09/12/17 21: 37; Start 09/11/17 at 14:00; Stop 09/25/17 at 09:29; Status DC Modafinil (Provigil) 200 mg DAILY PO Last administered on 09/12/17 09:07; Start 09/11/17 at 12:00; Stop 09/25/17 at 09:30; Status DC Water (Free Water) VOLUME: 200 ML Q4HR G-TUBE Last administered on 09/18/17 08 :00; Start 09/11/17 at 12:00; Stop 09/18/17 at 11:53; Status DC Famotidine (Pepcid) 10 mg BID NG Last administered on 09/23/17 20:42; Start 09/11/17 at 21:00; Stop 09/24/17 at 09:10; Status DC Heparin Sodium (Porcine) (Heparin Inj) 5,000 units Q12HR SQ Last administered on 09/28/17 08:20; Start 09/11/17 at 21:00; Status Future Hold Lorazepam (Ativan Inj) 1 mg ONCE ONCE IV PUSH Last administered on 09/13/17 02:57; Start 09/13/17 at 02:45; Stop 09/13/17 at 02:46; Status DC Pharmacy Profile Note 0 ml @ 0 mls/hr UNSCH OTHER ; Start 09/13/17 at 02:45; Stop 09/17/17 at 10:11; Status DC Piperacillin Sod/ Tazobactam Sod 50 ml @ 100 mls/hr Q6H IV Last administered on 09/19/17 20:26; Start 09/13/17 at 03:00; Stop 09/19/17 at 23:00; Status DC Nicardipine HCl 25 mg/Sodium Chloride 250 ml @ 50 mls/hr TITRATE PRN IV Blood pressure management Last administered on 09/17/17 04:57; Start 09/13/17 at 02: 45; Stop 09/17/17 at 12:47; Status DC Dantrolene Sodium (Dantrium Inj) 70 mg ONCE ONCE IV Last administered on 03:55; Start 09/13/17 at 03:00; Stop 09/13/17 at 03:01; Status DC Vancomycin HCl 2000 mg/Sodium Chloride 520 ml @ 250 mls/hr ONCE ONCE IV Last administered on 09/13/17 05:52; Start 09/13/17 at 04:00; Stop 09/13/17 at 06:04 ; Status DC Vancomycin HCl 2500 mg/Sodium Chloride 525 ml @ 250 mls/hr ONCE ONCE IV Last administered on 09/14/17 12:29; Start 09/14/17 at 12:00; Stop 09/14/17 at 14:05 ; Status DC Potassium Chloride 100 ml @ 50 mls/hr Q2H IV Last administered on 09/15/17 10 :22; Start 09/15/17 at 08:15; Stop 09/15/17 at 12:14; Status DC Dexamethasone Sodium Phosphate (Decadron Inj) 6 mg Q6HR IV PUSH Last administered on 09/17/17 04:24; Start 09/15/17 at 14:15; Stop 09/17/17 at 12:35 ; Status DC Diphenhydramine HCl (Benadryl Inj) 25 mg Q6H IV PUSH Last administered on 08:06; Start 09/15/17 at 15:00; Stop 09/18/17 at 14:59; Status DC Lidocaine HCl (Lidocaine Pf 2% Neb) 1 ml Q6HR NEB PRN NEB cough/bronchial irritation; Start 09/16/17 at 11:30 Vancomycin HCl 1500 mg/Sodium Chloride 515 ml @ 257.5 mls/ hr ONCE ONCE IV Last administered on 09/16/17 17:07; Start 09/16/17 at 15:00; Stop 09/16/17 at 16:59; Status DC Insulin Human Regular (NovoLIN R SUPPLEMENTAL SCALE) 5 ONCE ONCE SQ Last administered on 09/16/17 18:14; Start 09/16/17 at 18:00; Stop 09/16/17 at 18:01 ; Status DC Labetalol HCl (Trandate) 300 mg Q8HR PEG Last administered on 09/25/17 05:26 ; Start 09/17/17 at 14:00; Stop 09/25/17 at 09:31; Status DC Labetalol HCl (Trandate) 300 mg NOW ONCE PEG Last administered on 09/17/17 04 :23; Start 09/17/17 at 04:15; Stop 09/17/17 at 04:16; Status DC Dexamethasone Sodium Phosphate (Decadron Inj) 6 mg Q12HR IV PUSH Last administered on 09/20/17 09:26; Start 09/17/17 at 21:00; Stop 09/20/17 at 20: 59; Status DC Albuterol/ Ipratropium (Duoneb Neb) 1 ampule Q6HR NEB INH Last administered on 09/21/17 08:25; Start 09/17/17 at 16:00; Stop 09/21/17 at 15:59; Status DC Oxycodone HCl (Roxicodone Intensol Liq) 5 mg Q6H PO Last administered on 08:05; Start 09/17/17 at 15:00; Stop 09/18/17 at 12:04; Status DC Propranolol HCl (Inderal) 40 mg Q6HR PO Last administered on 09/25/17 05:26; Start 09/17/17 at 18:00; Stop 09/25/17 at 09:29; Status DC Insulin Detemir (Levemir Inj) 15 units Q12H SQ Last administered on 09/18/17 09:49; Start 09/17/17 at 22:00; Stop 09/18/17 at 11:53; Status DC Water (Free Water) 300 ml Q4HR G-TUBE Last administered on 11/06/17 16:00; Start 09/18/17 at 12:00 Insulin Detemir (Levemir Inj) 18 units Q12H SQ Last administered on 09/18/17 20:09; Start 09/18/17 at 22:00; Stop 09/19/17 at 08:52; Status DC Dextrose (D50w (Vial) Inj) 25 ml UNSCH PRN IV PUSH HYPOGLYCEMIA-SEE COMMENTS; Start 09/18/17 at 12:00 Insulin Human Regular (NovoLIN R SUPPLEMENTAL SCALE) 1 Q4HR SQ Last administered on 09/25/17 04:09; Start 09/18/17 at 12:00; Stop 09/25/17 at 09: 28; Status DC Oxycodone HCl (Roxicodone Intensol Liq) 5 mg Q6H PRN PO pain 6-10 Last administered on 09/18/17 22:56; Start 09/18/17 at 15:00; Stop 09/25/17 at 09: 29; Status DC Hydralazine HCl (Apresoline) 50 mg Q8HR PO Last administered on 09/19/17 05: 12; Start 09/18/17 at 14:00; Stop 09/19/17 at 08:52; Status DC Insulin Detemir (Levemir Inj) 20 units Q12H SQ Last administered on 10/29/17 09:51; Start 09/19/17 at 10:00; Stop 10/30/17 at 10:43; Status DC Hydralazine HCl (Apresoline) 100 mg Q8HR PO Last administered on 09/25/17 05: 31; Start 09/19/17 at 14:00; Stop 09/25/17 at 09:29; Status DC Dextrose 1,000 ml @ 42 mls/hr [id number] IV Last administered on 09/20/17 09:25 ; Start 09/19/17 at 08:45; Stop 09/20/17 at 11:39; Status DC Sodium Chloride 38.5 meq/Sterile Water 1,009.625 ml @ 42 mls/hr Q24H IV Last administered on 09/25/17 06:01; Start 09/20/17 at 13:00; Stop 09/25/17 at 09 :24; Status DC Acetaminophen 0 ml @ As Directed STK-MED ONCE IV ; Start 09/21/17 at 09:42; Stop 09/21/17 at 09:43; Status DC Hydromorphone HCl (Dilaudid Pf Inj) 2 mg STK-MED ONCE .ROUTE ; Start 09/21/17 at 09:43; Stop 09/21/17 at 09:44; Status DC Sodium Polystyrene Sulfonate (Kayexalate Liq) 30 gm Q2HR PO Last administered on 09/21/17 19:53; Start 09/21/17 at 16:00; Stop 09/21/17 at 21:00; Status DC Famotidine (Pepcid) 20 mg BID NG Last administered on 11/06/17at 21:28; Start 09/24/17 at 09:30 Morphine Sulfate (Morphine Inj) 2 mg Q2H PRN IV PUSH breakthru pain Last administered on 10/24/17at 20:42; Start 09/24/17 at 16:30; Stop 11/01/17 at 12: 56; Status DC Metoprolol Tartrate (Lopressor) 25 mg Q8H PO Last administered on 09/25/17 05 :25; Start 09/25/17 at 05:00; Stop 09/25/17 at 09:29; Status DC Potassium Bicarb/ Potassium Chloride (K-Lyte Cl Eff) 50 meq ONCE ONCE PO Last administered on 09/25/17 05:25; Start 09/25/17 at 04:30; Stop 09/25/17 at 04:31; Status DC Sodium Chloride 1,000 ml @ 42 mls/hr [id number] IV ; Start 09/25/17 at 10:00; Stop 09/25/17 at 10:00; Status DC Glucagon (Glucagon Inj) 1 mg UNSCH PRN OTHER HYPOGLYCEMIA-SEE COMMENTS; Start 09/25/17 at 09:30 Insulin Aspart (NovoLOG SUPPLEMENTAL SCALE) 1 Q6H SQ Last administered on 18:00; Start 09/25/17 at 12:00 Acetaminophen (Tylenol) 650 mg Q6H PRN G-TUBE PAIN 1-5 AND/OR FEVER >101F Last administered on 11/06/17 23:56; Start 09/25/17 at 12:45 Amlodipine Besylate (Norvasc) 10 mg DAILY G-TUBE Last administered on 09:44; Start 09/26/17 at 09:00 Atorvastatin Calcium (Lipitor) 40 mg HS DOBHOFF Last administered on 11/06/17 21:28; Start 09/25/17 at 21:00 Clonidine (Catapres) 0.3 mg Q8HR G-TUBE Last administered on 11/07/17 05:40; Start 09/25/17 at 14:00 Senna/Docusate Sodium (Melina-Colace) 1 tab BID G-TUBE Last administered on 21:28; Start 09/25/17 at 21:00 Hydralazine HCl (Apresoline) 100 mg Q8HR G-TUBE Last administered on 11/07/17 05:40; Start 09/25/17 at 14:00 Metoprolol Tartrate (Lopressor) 25 mg Q8H G-TUBE ; Start 09/25/17 at 13:00; Stop 09/25/17 at 13:00; Status DC Oxycodone HCl (Roxicodone Intensol Liq) 5 mg Q6H PRN G-TUBE pain 6-10 Last administered on 11/01/17 10:56; Start 09/25/17 at 15:00; Stop 11/01/17 at 13: 17; Status DC Polyethylene Glycol (Miralax) 17 gm BID G-TUBE Last administered on 10/27/17 09:41; Start 09/25/17 at 21:00 Propranolol HCl (Inderal) 40 mg Q6HR G-TUBE Last administered on 11/07/17 05: 40; Start 09/25/17 at 12:00 Quetiapine Fumarate (SEROquel) 50 mg Q8HR G-TUBE Last administered on 1/28/ 18at 05:40; Start 09/25/17 at 14:00 Albuterol Sulfate (Albuterol Neb) 2.5 mg Q2HR NEB PRN NEB sob/wheeze Last administered on 11/03/17 06:06; Start 09/25/17 at 13:30 Cefuroxime Axetil (Ceftin) 500 mg Q12HR PO Last administered on 10/03/17t 09: 03; Start 09/26/17 at 11:15; Stop 10/03/17 at 11:14; Status DC Sodium Chloride 250 ml @ 15 mls/hr ONCE ONCE IV ; Start 09/28/17 at 10:15; Stop 09/28/17 at 16:53; Status DC Chlorhexidine Gluconate (Peridex 0.12% Liq) 15 ml TID SWISH-SPIT Last administered on 11/03/17at 09:36; Start 10/11/17 at 18:00 Methylprednisolone Sodium Succinate (SoluMEDROL INJ) 125 mg ONCE ONCE IV PUSH Last administered on 10/20/17at 13:09; Start 10/20/17 at 12:15; Stop 10/20/17 at 12:16; Status DC Albuterol/ Ipratropium (Duoneb Neb) 1 ampule Q6HR NEB NEB Last administered on 10/27/17at 10:00; Start 10/23/17 at 16:00; Stop 10/27/17 at 13:18; Status DC Gabapentin (Neurontin) 100 mg TID PO Last administered on 11/06/17at 17:23; Start 10/26/17 at 13:00 Insulin Detemir (Levemir Inj) 18 units Q12H SQ ; Start 10/30/17 at 22:00; Stop 11/01/17 at 10:22; Status DC Insulin Detemir (Levemir Inj) 15 units Q12H SQ Last administered on 11/06/17at 21:29; Start 11/01/17 at 22:00 Morphine Sulfate (Morphine Inj) 2 mg Q3H PRN IM BREAKTHROUGH PAIN Last administered on 11/01/17at 13:25; Start 11/01/17 at 13:00 Oxycodone HCl (Roxicodone Intensol Liq) 5 mg Q4H PRN G-TUBE pain 6-10 Last administered on 11/02/17at 09:47; Start 11/01/17 at 15:00; Stop 11/02/17 at 11:43 ; Status DC Oxycodone HCl (Roxicodone) 10 mg Q4H PRN PO PAIN 6-10 Last administered on 11/05at 18:15; Start 11/02/17 at 14:00 A/P Problem List: (1) Intracranial hemorrhage ICD Code: I62.9 - Nontraumatic intracranial hemorrhage, unspecified Status: Acute Assessment and Plan Assessment and Plan A/P Acute encephalopathy - improving. Left Thalamic Hemorrhage Intracerebral Hemorrhage - Repeat CT of the head showed improving bleed - Neurosurgery follow-up appreciated; stable for dc to SNF per neurosurgery. - Continue rehabilitation efforts with PT, OT, speech - On Seroquel to control agitated delirium. Roxicodone as needed for pain Anemia likely due to chronic disease. H/H fairly stable. will monitor periodically. Healthcare associated pneumonia treated. UTI: treated. Respiratory failure s/p trach trach has been removed. will monitor. pulmonary f/u appreciated. diabetes mellitus - continue Levemir 15 units SQ q12h - Continue sliding scale insulin with Accu-Cheks. - hemoglobin A1c 9.1. Hypertension - Intermittent hypertension now well controlled - Continue clonidine, amlodipine and propranolol - Continue hydralazine. Nutrition status: - Status post PEG tube - -on diet now per ST. -calorie count in process- will consider removing the PEG- pending the result of calorie count. Acute kidney injury, most likely has CKD per nephrology: Renal function stabilized. - monitor renal function periodically. fever repeat UA/UC- will monitor temps. pain to the right leg. DVT with no evidence of DVT- continue pain control. diplopia neurosurgery f/u appreciated and recommended ophthalmology consult; ophthalmology consulted. Physical deconditioning/right sided hemiparesis - OOB to stretcher chair daily - PT/OT following AND SPEECH PROPH: - SCD's. Pepcid for GI prophylaxis Discharge Planning Await case management ability to find SNF VS INPATIENT REHAB FOR AGGRESSIVE PT AND OT AND Kalen Webb DO Nov 07, 2017 09:20
[2017-11-07] MEDS: GABAPENTIN 100 MG CAP PO SCH ×3 (09:41→18:48)
[2017-11-07] MEDS: FAMOTIDINE 20 MG TAB NG SCH ×2 (09:41→20:11)
[2017-11-07] MEDS: FLUTICASONE PROPIONATE 50 MCG/ACT 16 GM NASAL SPRAY EACH NARE SCH (09:41)
[2017-11-07] MEDS: INSULIN DETEMIR 100 UNITS/ML VIAL SQ SCH ×2 (09:42→21:31)
[2017-11-07] MEDS ORDERED: GLUCAGON 1 MG/ML VIAL OTHER PRN (10:00)
[2017-11-07] MEDS ORDERED: DEXTROSE 50% IN WATER 50 ML VIAL(D50) IV PUSH PRN (10:00)
--- NOTE | 2017-11-07 19:07 | HHI.PR ---
Subjective Remarks Patient is lying in bed in NAD. Afebrile. Has fenestrated trach On RA Tolerates PO Trach decannualted No new complaint Objective Vital Signs Vital Signs Date Time Temp Pulse Resp B/P (MAP) Pulse Ox O2 Delivery O2 Flow Rate FiO2 11/07/17 16:36 100.4 82 20 127/70 (89) 95 11/07/17 12:05 99.3 80 20 123/64 (83) 96 11/07/17 09:27 97.5 82 20 100/59 (73) 96 11/07/17 07:00 Room Air 11/07/17 04:00 98.3 73 17 111/70 (84) 97 11/07/17 04:00 Room Air 11/07/17 00:00 100.9 82 20 105/85 (92) 97 11/07/17 00:00 Room Air 11/06/17 20:00 Room Air 11/06/17 20:00 97.8 82 18 126/75 (92) 94 I/O 11/06/17 11/06/17 11/06/17 11/07/17 11/07/17 11/07/17 07:00 15:00 23:00 07:00 15:00 23:00 Intake Total 360 ml 720 ml Output Total 1000 ml 600 ml Balance -640 ml 120 ml Intake Oral 360 ml 720 ml Output Urine Total 1000 ml 600 ml # Bowel Movements 0 Result Diagram: 11/06/17 1120 Objective Remarks GENERAL: Patient is lying in bed in NAD SKIN: Warm and dry. HEAD: Normocephalic. EYES: No scleral icterus. No injection or drainage. NECK: Supple, trachea midline. No JVD or lymphadenopathy. CARDIOVASCULAR: Regular rate and rhythm without murmurs, gallops, or rubs. RESPIRATORY: Breath sounds equal bilaterally. No accessory muscle use. GASTROINTESTINAL: Abdomen soft, non-tender, nondistended. MUSCULOSKELETAL: No cyanosis, or edema. BACK: Nontender without obvious deformity. No CVA tenderness. Neuro: Awake and alert A/P Assessment and Plan Resp failure S/P Trach HTN s/p ICH, right side flaccid Pneumonia PLAN Bronchodilators Pulm toilet, Continue treatment plan. Dr.Wahba mac FU in AM Jesus Villar MD Nov 07, 2017 19:07
[2017-11-07] MEDS: ATORVASTATIN 40 MG TAB DOBHOFF SCH (20:11)
[2017-11-07] MEDS: ACETAMINOPHEN 325 MG TAB G-TUBE PRN (21:30)
--- NOTE | 2017-11-07 21:39 | RADRPT ---
EXAM DATE/TIME: 11/07/2017 21:22 [facility] COMPARISON: 10/31/2017. INDICATIONS : Fever MEDICAL HISTORY : Stroke. Cardiovascular disease. Hypertension SURGICAL HISTORY : None. ENCOUNTER: Subsequent ACUITY: 2 weeks PAIN SCORE: 0/10 LOCATION: chest FINDINGS: Mild but diffuse hazy infiltrate seen of the left lung. A small left pleural effusion is suspected as well. Right lung is clear. No pneumothorax. Mild cardiomegaly again noted. CONCLUSION: Mild infiltrate on the left. Ignacio Lares MD on November 07, 2017 at 21:35 Board Certified Radiologist. This report was verified electronically.
[2017-11-08] VITALS (8 sets, daily range): BP systolic 104–134; BP diastolic 62–87; PULSE 68–85; RESP 17–20; TEMP 98.1–102.6; O2SAT 94–99
[2017-11-08] MEDS ORDERED: Vancomycin Consult Pharmacy 1 EA OTHER SCH
[2017-11-08] MEDS ORDERED: ACETAMINOPHEN 650 MG/20.3 ML UDC G-TUBE PRN (00:15)
[2017-11-08] MEDS ORDERED: ACETAMINOPHEN 650 MG/20.3 ML UDC G-TUBE ONE (00:15)
[2017-11-08] MEDS: PIPERACIL-TAZO 4.5 GM PREMIX 100 ML IV SCH ×4 (00:44→18:42)
[2017-11-08] MEDS ORDERED: VANCOMYCIN INJ 2,000 MG in SODIUM CHLORID 0.9% 500 ML INJ 500 ML IV ONE (01:00)
[2017-11-08] MEDS: cloNIDine HCL 0.3 MG TAB G-TUBE SCH ×3 (06:00→22:15)
[2017-11-08] MEDS: hydrALAZINE HCL 100 MG TAB G-TUBE SCH ×3 (06:00→22:16)
[2017-11-08] MEDS: QUEtiapine FUMARATE 25 MG TAB G-TUBE SCH ×3 (06:45→22:15)
[2017-11-08] MEDS: PROPRANOLOL HCL 40 MG TAB G-TUBE SCH ×4 (06:45→18:41)
[2017-11-08] MEDS: INSULIN ASPART SUPPLEMENTAL SCALE SQ SCH ×4 (08:00→21:00)
[2017-11-08] MEDS: FLUTICASONE PROPIONATE 50 MCG/ACT 16 GM NASAL SPRAY EACH NARE SCH (09:00)
[2017-11-08] MEDS: POLYETHYLENE GLYCOL 17 GM PKG G-TUBE SCH ×3 (09:00→22:16)
[2017-11-08] MEDS: CHLORHEXIDINE GLUCONATE 0.12% 15 ML CUP SWISH-SPIT SCH ×3 (09:00→18:00)
[2017-11-08] MEDS: DOCUSATE SODIUM 50 MG/SENNA 8.6 MG TAB G-TUBE SCH ×2 (09:00→22:16)
[2017-11-08] MEDS: FREE WATER G-TUBE SCH ×2 (09:00→22:17)
[2017-11-08] MEDS: FAMOTIDINE 20 MG TAB NG SCH ×2 (09:47→22:16)
[2017-11-08] MEDS: GABAPENTIN 100 MG CAP PO SCH ×3 (09:47→18:41)
[2017-11-08 10:13] LABS: BACTERIA, URINE OCC /hpf; BILIRUBIN, URINE NEG (NEG); BLOOD, URINE NEG (NEG); CALCIUM OXALATE CRYSTALS,URINE OCC /hpf; GLUCOSE,URINE NEG (NEG); KETONE, URINE NEG (NEG); MUCUS URINE FEW /lpf (OCC); NITRITE,URINE POS (NEG); PH, URINE 5.5 (5.0-8.5); SQUAMOUS EPITHELIAL CELL URINE <1 /hpf (0-5); URINE COLOR YELLOW (YELLW/STRAW); URINE LEUKOCYTE ESTERASE LARGE (NEG)
[2017-11-08] MEDS: INSULIN DETEMIR 100 UNITS/ML VIAL SQ SCH ×2 (10:59→22:18)
[2017-11-08] MEDS: VANCOMYCIN INJ 1,500 MG in SODIUM CHLORID 0.9% 500 ML INJ 500 ML IV SCH (13:52)
--- NOTE | 2017-11-08 16:36 | HHI.PR ---
Subjective Remarks ALERT NO DISTRESS TRACH tube removed Objective Vital Signs Date Time Temp Pulse Resp B/P (MAP) Pulse Ox O2 Delivery O2 Flow Rate FiO2 11/08/17 12:43 98.1 82 18 128/64 (85) 94 11/08/17 08:55 98.1 68 17 115/70 (85) 96 11/08/17 08:42 99 21 11/08/17 07:00 Room Air 11/08/17 06:46 71 104/84 (91) 11/08/17 03:53 98.5 71 20 107/72 (84) 96 11/08/17 03:53 Room Air 11/08/17 01:30 99.8 11/07/17 23:37 Room Air 11/07/17 23:37 101.4 85 20 100/70 (80) 96 11/07/17 20:56 92 21 11/07/17 20:08 Room Air 11/07/17 20:08 101.7 80 18 131/70 (90) 98 I/O 11/07/17 11/07/17 11/07/17 11/08/17 11/08/17 11/08/17 07:00 15:00 23:00 07:00 15:00 23:00 Intake Total 360 ml 720 ml 1727 ml 700 ml Output Total 1000 ml 600 ml 350 ml Balance -640 ml 120 ml 1377 ml 700 ml Intake Oral 360 ml 720 ml 960 ml 600 ml IV Total 667 ml 100 ml Other 100 ml Output Urine Total 1000 ml 600 ml 350 ml # Bowel Movements 0 Result Diagram: 11/06/17 1120 Objective Remarks GENERAL: SKIN: Warm and dry. HEAD: Atraumatic. Normocephalic. EYES: Pupils equal and round. No scleral icterus. No injection or drainage. ENT: No nasal bleeding or discharge. Mucous membranes pink and moist. NECK: Trachea midline. No JVD. CARDIOVASCULAR: Regular rate and rhythm. RESPIRATORY: No accessory muscle use. Clear to auscultation. Breath sounds equal bilaterally. GASTROINTESTINAL: Abdomen soft, non-tender, nondistended. Hepatic and splenic margins not palpable. MUSCULOSKELETAL: Extremities without clubbing, cyanosis, or edema. No obvious deformities. NEUROLOGICAL: Awake and alert. No obvious cranial nerve deficits. Motor grossly within normal limits. Five out of 5 muscle strength in the arms and legs. Normal speech. PSYCHIATRIC: Appropriate mood and affect; insight and judgment normal. Assessment and Plan Assessment and Plan RESPIRATORY FAILURE S/P CVA OBESITY HTN PLAN O2 NEEDED PULM TOILET INCREASE ACTIVITY Wang Piña MD Nov 08, 2017 16:36
[2017-11-08] MEDS: ATORVASTATIN 40 MG TAB DOBHOFF SCH (22:16)
--- NOTE | 2017-11-08 22:46 | HHI.PR ---
Subjective Remarks Patient with fever up to 101.7 overnight. Patient denies any chest pain or shortness of breath. Denies any burning with urination. Denies any pain. Objective Vital Signs Date Time Temp Pulse Resp B/P (MAP) Pulse Ox O2 Delivery O2 Flow Rate FiO2 11/08/17 17:09 99.1 79 18 112/62 (79) 95 11/08/17 12:43 98.1 82 18 128/64 (85) 94 11/08/17 08:55 98.1 68 17 115/70 (85) 96 11/08/17 08:42 99 21 11/08/17 07:00 Room Air 11/08/17 06:46 71 104/84 (91) 11/08/17 03:53 98.5 71 20 107/72 (84) 96 11/08/17 03:53 Room Air 11/08/17 01:30 99.8 11/07/17 23:37 Room Air 11/07/17 23:37 101.4 85 20 100/70 (80) 96 I/O 11/07/17 11/07/17 11/07/17 11/08/17 11/08/17 11/08/17 07:00 15:00 23:00 07:00 15:00 23:00 Intake Total 360 ml 720 ml 1727 ml 700 ml 515 ml Output Total 1000 ml 600 ml 350 ml Balance -640 ml 120 ml 1377 ml 700 ml 515 ml Intake Oral 360 ml 720 ml 960 ml 600 ml IV Total 667 ml 100 ml 515 ml Other 100 ml Output Urine Total 1000 ml 600 ml 350 ml # Bowel Movements 0 Result Diagram: 11/06/17 1120 Objective Remarks GENERAL: patient lying in bed. Appears comfortable. -speech clear with some word finding difficulty. SKIN: Warm and dry. HEAD: Normocephalic. EYES: No scleral icterus. No injection or drainage. NECK: Supple, trachea midline. No JVD. CARDIOVASCULAR: Regular rate and rhythm without murmurs, gallops, or rubs. RESPIRATORY: Breath sounds equal bilaterally. No accessory muscle use. GASTROINTESTINAL: Abdomen soft, non-tender, nondistended. PEG tube in place without surrounding erythema or leakage. MUSCULOSKELETAL: No cyanosis, or edema. flaccid paralysis on the right. BACK: Nontender without obvious deformity. No CVA tenderness. A/P Assessment and Plan 11/08. Fever overnight. Chest x-ray with small effusion. No respiratory signs or symptoms. Urinalysis ordered and pending. Fevers appear to have resolved. Continues on broad-spectrum IV antibiotics. Continue to monitor overnight. Follow-up cultures. // Acute encephalopathy - improving. //Left Thalamic Hemorrhage //Intracerebral Hemorrhage - Repeat CT of the head showed improving bleed - Neurosurgery follow-up appreciated; stable for dc to SNF per neurosurgery. - Continue rehabilitation efforts with PT, OT, speech - On Seroquel to control agitated delirium. Roxicodone as needed for pain //Anemia likely due to chronic disease. H/H fairly stable. will monitor periodically. //Healthcare associated pneumonia treated. //UTI: treated. //Respiratory failure s/p trach trach has been removed. will monitor. pulmonary f/u appreciated. //diabetes mellitus - continue Levemir 15 units SQ q12h - Continue sliding scale insulin with Accu-Cheks. - hemoglobin A1c 9.1. //Hypertension - Intermittent hypertension now well controlled - Continue clonidine, amlodipine and propranolol - Continue hydralazine. //Nutrition status: - Status post PEG tube - -on diet now per ST. -calorie count in process- will consider removing the PEG- pending the result of calorie count. //Acute kidney injury, most likely has CKD per nephrology: Renal function stabilized. - monitor renal function periodically. //fever repeat UA/UC- will monitor temps. //pain to the right leg. DVT with no evidence of DVT- continue pain control. //diplopia neurosurgery f/u appreciated and recommended ophthalmology consult; ophthalmology consulted. //Physical deconditioning/right sided hemiparesis - OOB to stretcher chair daily - PT/OT following AND SPEECH PROPH: - SCD's. Pepcid for GI prophylaxis Discharge Planning Await case management ability to find SNF VS INPATIENT REHAB FOR AGGRESSIVE PT AND OT AND Lucius Felipe MD Nov 08, 2017 22:46
[2017-11-09] VITALS: BP 126/71; PULSE 82; RESP 19; TEMP 98.9; O2SAT 97
[2017-11-09] MEDS: PROPRANOLOL HCL 40 MG TAB G-TUBE SCH ×5 (01:35→23:26)
[2017-11-09] MEDS: PIPERACIL-TAZO 4.5 GM PREMIX 100 ML IV SCH ×5 (01:36→23:26)
[2017-11-09] MEDS: VANCOMYCIN INJ 1,500 MG in SODIUM CHLORID 0.9% 500 ML INJ 500 ML IV SCH ×3 (02:09→12:22)
[2017-11-09 04:00] VITALS: BP 121/80; PULSE 77; RESP 19; TEMP 98.7; O2SAT 97
[2017-11-09] MEDS: hydrALAZINE HCL 100 MG TAB G-TUBE SCH ×3 (06:18→20:48)
[2017-11-09] MEDS: QUEtiapine FUMARATE 25 MG TAB G-TUBE SCH ×3 (06:19→20:49)
[2017-11-09] MEDS: cloNIDine HCL 0.3 MG TAB G-TUBE SCH ×3 (06:19→20:48)
[2017-11-09] MEDS: INSULIN ASPART SUPPLEMENTAL SCALE SQ SCH ×4 (08:00→20:49)
[2017-11-09] MEDS: FLUTICASONE PROPIONATE 50 MCG/ACT 16 GM NASAL SPRAY EACH NARE SCH (09:00)
[2017-11-09] MEDS: POLYETHYLENE GLYCOL 17 GM PKG G-TUBE SCH ×2 (09:00→20:49)
[2017-11-09] MEDS: FREE WATER G-TUBE SCH ×2 (09:00→20:49)
[2017-11-09 09:16] VITALS: BP 118/58; PULSE 80; RESP 18; TEMP 98.8; O2SAT 95
[2017-11-09] MEDS: FAMOTIDINE 20 MG TAB NG SCH ×2 (09:17→20:49)
[2017-11-09] MEDS: DOCUSATE SODIUM 50 MG/SENNA 8.6 MG TAB G-TUBE SCH ×2 (09:17→20:49)
[2017-11-09] MEDS: CHLORHEXIDINE GLUCONATE 0.12% 15 ML CUP SWISH-SPIT SCH ×3 (09:17→17:39)
[2017-11-09] MEDS: GABAPENTIN 100 MG CAP PO SCH ×3 (09:17→17:39)
[2017-11-09] MEDS: INSULIN DETEMIR 100 UNITS/ML VIAL SQ SCH ×2 (09:18→20:49)
[2017-11-09 09:38] LABS: AUTOMATED NEUTROPHIL # 5.3 TH/MM3 (1.8-7.7); BASOPHIL # 0.1 TH/MM3 (0-0.2); BASOPHIL % 0.8 % (0.0-2.0); EOSINOPHIL # 0.2 TH/MM3 (0-0.4); EOSINOPHIL % 2.9 % (0.0-4.0); HEMATOCRIT 25.2 % (39.0-51.0); HEMOGLOBIN 8.7 GM/DL (13.0-17.0); LYMPHOCYTE # 1.1 TH/MM3 (1.0-4.8); MEAN CORPUSCULAR HEMOGLOBIN 26.8 PG (27.0-34.0); MEAN CORPUSCULAR HGB CONC 34.3 % (32.0-36.0); MEAN PLATELET VOLUME 8.4 FL (7.0-11.0); MONO % 11.1 % (0.0-8.0); MONOCYTE # 0.8 TH/MM3 (0-0.9); NEUT % 70.2 % (16.0-70.0); PLATELET COUNT 355 TH/MM3 (150-450); RED BLOOD COUNT 3.23 MIL/MM3 (4.50-5.90); RED CELL DISTRIBUTION WIDTH 15.8 % (11.6-17.2); WHITE BLOOD COUNT 7.6 TH/MM3 (4.0-11.0)
[2017-11-09] MEDS ORDERED: PHARMACY ORDERED LAB ONE (11:45)
[2017-11-09 12:42] LABS: ALBUMIN 2.4 GM/DL (3.4-5.0); MAGNESIUM 1.9 MG/DL (1.5-2.5); PHOSPHORUS 4.3 MG/DL (2.5-4.9)
[2017-11-09 12:43] LABS: DIRECT BILIRUBIN ADULT 0.1 MG/DL (0.0-0.2); INDIRECT BILIRUBIN 0.3 MG/DL (0.0-0.8); TOTAL BILIRUBIN ADULT 0.4 MG/DL (0.2-1.0)
[2017-11-09 12:44] LABS: BICARBONATE 29.8 MEQ/L (21.0-32.0)
[2017-11-09 13:01] VITALS: BP 140/69; PULSE 81; RESP 18; TEMP 98.8; O2SAT 96
--- NOTE | 2017-11-09 15:29 | HHI.PR ---
Subjective Remarks ALERT NO DISTRESS TRACH tube removed Objective Vital Signs Date Time Temp Pulse Resp B/P (MAP) Pulse Ox O2 Delivery O2 Flow Rate FiO2 11/09/17 13:41 Room Air 11/09/17 13:01 98.8 81 18 140/69 (92) 96 11/09/17 09:16 98.8 80 18 118/58 (78) 95 11/09/17 04:00 98.7 77 19 121/80 (94) 97 11/09/17 00:00 98.9 82 19 126/71 (89) 97 11/08/17 20:00 102.6 85 20 134/87 (103) 96 11/08/17 20:00 Room Air 11/08/17 17:09 99.1 79 18 112/62 (79) 95 I/O 11/08/17 11/08/17 11/08/17 11/09/17 11/09/17 11/09/17 07:00 15:00 23:00 07:00 15:00 23:00 Intake Total 1727 ml 700 ml 515 ml 955 ml Output Total 350 ml 1100 ml Balance 1377 ml 700 ml 515 ml -145 ml Intake Oral 960 ml 600 ml 240 ml IV Total 667 ml 100 ml 515 ml 715 ml Other 100 ml Output Urine Total 350 ml 1100 ml # Bowel Movements 0 Result Diagram: 11/09/17 0850 11/09/17 0850 Objective Remarks GENERAL: SKIN: Warm and dry. HEAD: Atraumatic. Normocephalic. EYES: Pupils equal and round. No scleral icterus. No injection or drainage. ENT: No nasal bleeding or discharge. Mucous membranes pink and moist. NECK: Trachea midline. No JVD. CARDIOVASCULAR: Regular rate and rhythm. RESPIRATORY: No accessory muscle use. Clear to auscultation. Breath sounds equal bilaterally. GASTROINTESTINAL: Abdomen soft, non-tender, nondistended. Hepatic and splenic margins not palpable. MUSCULOSKELETAL: Extremities without clubbing, cyanosis, or edema. No obvious deformities. NEUROLOGICAL: Awake and alert. No obvious cranial nerve deficits. Motor grossly within normal limits. Five out of 5 muscle strength in the arms and legs. Normal speech. PSYCHIATRIC: Appropriate mood and affect; insight and judgment normal. Assessment and Plan Assessment and Plan RESPIRATORY FAILURE S/P CVA OBESITY HTN PLAN O2 NEEDED PULM TOILET INCREASE ACTIVITY Wang,Wang Peralta MD Nov 09, 2017 15:29
--- NOTE | 2017-11-09 15:33 | HHI.IDPN ---
Note Infectious Disease Note Asked to see patient for fevers. Patient was last seen on 09/20/17. His awake and alert. Complaining of difficulty with his vision. Double vision with both eyes open and notes that objects are slanted. Also says his vision is blurry. No AVENDAÑO. No distress. Talking on the phone. Tmax 102.6. Admitted with hypertensive central nervous system bleed involving the right thalamus and extending into the lateral third ventricle on 08/29/17. PAST MEDICAL HISTORY 1. Hypertension. 2. History of CVA. ALLERGIES NO KNOWN DRUG ALLERGIES. ANTIBIOTIC: Zosyn. Vancomycin. Current Medications Medications (Trade) Dose Ordered Sig/Hermann Route PRN Reason Start Time Stop Time Status Last Admin Dose Admin Sodium Chloride (NS Flush) 2 ml UNSCH PRN IVF FLUSH AFTER USING IV ACCESS 08/29/17 00:00 10/24/17 20:44 Labetalol HCl (Trandate Inj) 10 mg Q20M PRN IV PUSH SBP>140, DBP>90 08/29/17 00:45 09/19/17 02:16 Ondansetron HCl (Zofran Inj) 4 mg Q6H PRN IV PUSH NAUSEA OR VOMITING 08/29/17 00:45 09/11/17 14:18 Hydralazine HCl (Apresoline Inj) 10 mg Q30M PRN IV PUSH sbp > 160 08/30/17 08:15 09/19/17 09:08 Fluticasone Propionate (Flonase Tae Spr) 2 spray DAILY EACH NARE 09/05/17 17:00 11/09/17 09:00 Gelatin (Gelfoam 12 Mm/7 Mm Top) 1 foam Q2HR PRN TOPICAL if still bleeding from peg 09/07/17 19:45 09/08/17 08:00 Heparin Sodium (Porcine) (Heparin Inj) 5,000 units Q12HR SQ 09/11/17 21:00 Future Hold 09/28/17 08:20 Lidocaine HCl (Lidocaine Pf 2% Neb) 1 ml Q6HR NEB PRN NEB cough/bronchial irritation 09/16/17 11:30 Famotidine (Pepcid) 20 mg BID NG 09/24/17 09:30 11/09/17 09:17 Amlodipine Besylate (Norvasc) 10 mg DAILY G-TUBE 09/26/17 09:00 11/09/17 09:17 Atorvastatin Calcium (Lipitor) 40 mg HS DOBHOFF 09/25/17 21:00 11/08/17 22:16 Clonidine (Catapres) 0.3 mg Q8HR G-TUBE 09/25/17 14:00 11/09/17 12:22 Senna/Docusate Sodium (Melina-Colace) 1 tab BID G-TUBE 09/25/17 21:00 11/09/17 09:17 Hydralazine HCl (Apresoline) 100 mg Q8HR G-TUBE 09/25/17 14:00 11/09/17 12:21 Polyethylene Glycol (Miralax) 17 gm BID G-TUBE 09/25/17 21:00 11/09/17 09:00 Propranolol HCl (Inderal) 40 mg Q6HR G-TUBE 09/25/17 12:00 11/09/17 12:34 Quetiapine Fumarate (SEROquel) 50 mg Q8HR G-TUBE 09/25/17 14:00 11/09/17 13:08 Albuterol Sulfate (Albuterol Neb) 2.5 mg Q2HR NEB PRN NEB sob/wheeze 09/25/17 13:30 11/03/17 06:06 Chlorhexidine Gluconate (Peridex 0.12% Liq) 15 ml TID SWISH-SPIT 10/11/17 18:00 11/09/17 13:00 Gabapentin (Neurontin) 100 mg TID PO 10/26/17 13:00 11/09/17 12:21 Insulin Detemir (Levemir Inj) 15 units Q12H SQ 11/01/17 22:00 11/09/17 09:18 Morphine Sulfate (Morphine Inj) 2 mg Q3H PRN IM BREAKTHROUGH PAIN 11/01/17 13:00 11/01/17 13:25 Oxycodone HCl (Roxicodone) 10 mg Q4H PRN PO PAIN 6-10 11/02/17 14:00 11/08/17 13:51 Water (Free Water) 100 ml BID G-TUBE 11/07/17 21:00 11/09/17 09:00 Insulin Aspart (NovoLOG SUPPLEMENTAL SCALE) 1 ACHS SLIDING SCALE SQ 11/07/17 12:00 11/08/17 12:00 Dextrose (D50w (Vial) Inj) 50 ml UNSCH PRN IV PUSH HYPOGLYCEMIA-SEE COMMENTS 11/07/17 10:00 Glucagon (Glucagon Inj) 1 mg UNSCH PRN OTHER HYPOGLYCEMIA-SEE COMMENTS 11/07/17 10:00 Pharmacy Profile Note 0 ml @ 0 mls/hr UNSCH OTHER 11/08/17 00:00 Piperacillin Sod/ Tazobactam Sod 100 ml @ 200 mls/hr Q6H IV 11/08/17 00:00 11/09/17 13:08 Acetaminophen (Tylenol 650 Mg/ 20 ml Liq) 658 mg Q6H PRN G-TUBE PAIN 1-5 AND/OR FEVER >101F 11/08/17 00:15 11/08/17 22:13 Vancomycin HCl 1500 mg/Sodium Chloride 515 ml @ 250 mls/hr Q12H IV 11/08/17 12:00 Future Hold 11/09/17 02:09 OBJECTIVE: Vital Signs Date Time Temp Pulse Resp B/P (MAP) Pulse Ox O2 Delivery O2 Flow Rate FiO2 11/09/17 13:41 Room Air 11/09/17 13:01 98.8 81 18 140/69 (92) 96 11/09/17 09:16 98.8 80 18 118/58 (78) 95 11/09/17 04:00 98.7 77 19 121/80 (94) 97 11/09/17 00:00 98.9 82 19 126/71 (89) 97 11/08/17 20:00 102.6 85 20 134/87 (103) 96 11/08/17 20:00 Room Air 11/08/17 17:09 99.1 79 18 112/62 (79) 95 Laboratory Tests Test 11/09/17 08:50 White Blood Count 7.6 TH/MM3 Red Blood Count 3.23 MIL/MM3 Hemoglobin 8.7 GM/DL Hematocrit 25.2 % Mean Corpuscular Volume 78.0 FL Mean Corpuscular Hemoglobin 26.8 PG Mean Corpuscular Hemoglobin Concent 34.3 % Red Cell Distribution Width 15.8 % Platelet Count 355 TH/MM3 Mean Platelet Volume 8.4 FL Neutrophils (%) (Auto) 70.2 % Lymphocytes (%) (Auto) 15.0 % Monocytes (%) (Auto) 11.1 % Eosinophils (%) (Auto) 2.9 % Basophils (%) (Auto) 0.8 % Neutrophils # (Auto) 5.3 TH/MM3 Lymphocytes # (Auto) 1.1 TH/MM3 Monocytes # (Auto) 0.8 TH/MM3 Eosinophils # (Auto) 0.2 TH/MM3 Basophils # (Auto) 0.1 TH/MM3 CBC Comment DIFF FINAL Differential Comment Laboratory Tests Test 11/09/17 08:50 Blood Urea Nitrogen 8 MG/DL Creatinine 1.00 MG/DL Random Glucose 70 MG/DL Total Protein 7.0 GM/DL Albumin 2.4 GM/DL Calcium Level 9.0 MG/DL Phosphorus Level 4.3 MG/DL Magnesium Level 1.9 MG/DL Alkaline Phosphatase 55 U/L Aspartate Amino Transf (AST/SGOT) 9 U/L Alanine Aminotransferase (ALT/SGPT) 10 U/L Total Bilirubin 0.4 MG/DL Direct Bilirubin 0.1 MG/DL Sodium Level 142 MEQ/L Potassium Level 3.5 MEQ/L Chloride Level 105 MEQ/L Carbon Dioxide Level 29.8 MEQ/L Anion Gap 7 MEQ/L Estimat Glomerular Filtration Rate 98 ML/MIN Indirect Bilirubin 0.3 MG/DL Microbiology Date/Time Source Procedure Growth Status 11/07/17 23:30 Blood Peripheral Aerobic Blood Culture - Preliminary NO GROWTH IN 2 DAYS Resulted 11/07/17 23:30 Blood Peripheral Anaerobic Blood Culture - Preliminary NO GROWTH IN 2 DAYS Resulted 11/07/17 23:25 Blood Peripheral Aerobic Blood Culture - Preliminary NO GROWTH IN 2 DAYS Resulted 11/07/17 23:25 Blood Peripheral Anaerobic Blood Culture - Preliminary NO GROWTH IN 2 DAYS Resulted 11/08/17 09:39 Urine Catheterized Urine Urine Culture - Preliminary Pseudomonas Species Resulted IMAGING: Chest X-Ray 11/07/17 0000 Signed Impressions: Service Date/Time: Tuesday, November 07, 2017 21:22 - CONCLUSION: Mild infiltrate on the left. Ignacio Lares MD Chest X-Ray 09/17/17 0600 Signed Impressions: Service Date/Time: Sunday, September 17, 2017 04:32 - CONCLUSION: Left basilar airspace disease. Julian Loaiza MD Maxillofacial CT 09/16/17 0000 Signed Impressions: Service Date/Time: September 01:03 - CONCLUSION: 1. Evidence of acute pansinusitis. 2. Opacification of multiple bilateral mastoid air cells most characteristic of mastoiditis. 3. Mildly prominent cervical chain nodes which may be reactive. Angelo Conn MD Maxillofacial CT 09/16/17 0000 Signed Impressions: Service Date/Time: September 01:03 - CONCLUSION: 1. Evidence of acute pansinusitis. 2. Opacification of multiple bilateral mastoid air cells most characteristic of mastoiditis. 3. Mildly prominent cervical chain nodes which may be reactive. Angelo Conn MD Upper Extremity Ultrasound 09/15/17 0000 Signed Impressions: Service Date/Time: Friday, September 15, 2017 17:14 - CONCLUSION: Occlusive thrombus within the left cephalic vein and nonocclusive thrombus within the right cephalic vein. Ric Jack MD Lower Extremity Ultrasound 09/15/17 0000 Signed Impressions: Service Date/Time: Friday, September 15, 2017 16:58 - CONCLUSION: No evidence of DVT within the lower extremities. Ric Jack MD Chest X-Ray 09/14/17 0600 Signed Impressions: Service Date/Time: Thursday, September 14, 2017 03:56 - CONCLUSION: Stable appearance. Angelo Conn MD Head CT 09/13/17 0800 Signed Impressions: Service Date/Time: Wednesday, September 13, 2017 09:17 - CONCLUSION: 1. Resolving left basal ganglia hematoma Natan Lagos MD Chest CT 09/13/17 0000 Signed Impressions: Service Date/Time: Wednesday, September 13, 2017 09:28 - CONCLUSION: 1. Bibasilar and left lingular dependent atelectatic changes. Lungs are otherwise clear. 2. Tracheostomy tube with the tip probably positioned above the connie. 3. Compensated cardiomegaly. Reyes Guzman MD Abdomen/Pelvis CT 09/13/17 0000 Signed Impressions: Service Date/Time: Wednesday, September 13, 2017 09:28 - CONCLUSION: 1. There is some stranding in the retroperitoneal perivascular tissues around the distal aorta extending into the bifurcation with a regional borderline lymph nodes. Findings are characteristic of a nonspecific inflammatory process. Findings could represent early retroperitoneal fibrosis.. 2. Urinary bladder is decompressed with some mural thickening in pericystic inflammatory changes possibly representing a chronic cystitis. Nondependent air could be associated with a recent catheterization/instrumentation. 3. Small umbilical and right inguinal hernias only contain fat. 4. Bilateral dependent basilar and left lingular atelectatic changes. Heart size is borderline prominent. 5. Otherwise , bowel is intact without obstruction to explain abdominal distention Reyes Guzman MD Abdomen X-Ray 09/10/17 0600 Signed Impressions: Service Date/Time: Sunday, September 10, 2017 03:56 - CONCLUSION: No significant abnormality is identified. There is mild distention of the colon but there are no findings to suggest bowel obstruction or significant ileus. Ignacio Underwood MD Liver Ultrasound 09/07/17 0000 Signed Impressions: Service Date/Time: Thursday, September 07, 2017 12:37 - CONCLUSION: 1. Unremarkable sonographic appearance of the liver. No evidence for hepatic volume loss or intrahepatic ductal dilatation. 2. No sonographic evidence for cholelithiasis or acute cholecystitis. 3. Mild increased right renal echogenicity may reflect medical renal disease. 4. Small bilateral pleural effusions. 5. Pancreas and inferior pole of the right kidney are obscured by bowel gas and therefore not evaluated. Darrell Robles MD Renal Ultrasound 08/31/17 0000 Signed Impressions: Service Date/Time: Thursday, August 31, 2017 17:42 - CONCLUSION: 1. No evidence of hydronephrosis on either side. 2. Solitary linear echogenic focus in the upper pole parenchyma of the right kidney has similar features to prior examination in January 2017 and possibly represents a calcification. David Snell MD Neck CTA 08/28/17 2347 Signed Impressions: Service Date/Time: Tuesday, August 29, 2017 00:13 - CONCLUSION: Negative carotid CTA. David Snell MD Head CTA 08/28/17 2347 Signed Impressions: Service Date/Time: Tuesday, August 29, 2017 00:13 - CONCLUSION: 1. No evidence of vessel truncation or aneurysm. 2. No abnormal vessels in the region of the large left thalamic hemorrhage. David Snell MD PHYSICAL EXAMINATION GENERAL: Awake. No Distress. HEENT: No icterus. Oropharynx, the tongue swelling is decreased slightly. NECK: No adenopathy. Mild swelling. LUNGS: Decreased breath sounds. No audible rhonchi. HEART: Regular S1-S2 without murmurs. ABDOMEN: Bowel sounds present, soft. No tenderness. EXTREMITIES: No clubbing or cyanosis. Trace edema of the hands. NEUROLOGIC: Weakness on the R upper and lower extremity. Alert and oriented. Speech is fluent. PSYCHIATRIC: Calm, anxious. Coleman has turbid urine. IMPRESSION Fever likely from UTI. Urine culture with pseudomonas. Pneumonia vs atelectasis at the left base. RECOMMENDATIONS 1. Continue Zosyn. 2. Stop Vancomycin. 3. Monitor sensitivity of the pseudomonas. 4. Follow temps. Kaz Gregg MD Nov 09, 2017 15:33
[2017-11-09 17:08] VITALS: BP 117/65; PULSE 79; RESP 17; TEMP 99.9; O2SAT 96
--- NOTE | 2017-11-09 17:10 | HHI.PR ---
Subjective Remarks Patient with fever up to 101.7 overnight. Patient denies any chest pain or shortness of breath. Denies any burning with urination. Denies any pain. Objective Vital Signs Date Time Temp Pulse Resp B/P (MAP) Pulse Ox O2 Delivery O2 Flow Rate FiO2 11/09/17 13:41 Room Air 11/09/17 13:01 98.8 81 18 140/69 (92) 96 11/09/17 09:16 98.8 80 18 118/58 (78) 95 11/09/17 04:00 98.7 77 19 121/80 (94) 97 11/09/17 00:00 98.9 82 19 126/71 (89) 97 11/08/17 20:00 102.6 85 20 134/87 (103) 96 11/08/17 20:00 Room Air 11/08/17 17:09 99.1 79 18 112/62 (79) 95 I/O 11/08/17 11/08/17 11/08/17 11/09/17 11/09/17 11/09/17 07:00 15:00 23:00 07:00 15:00 23:00 Intake Total 1727 ml 700 ml 515 ml 955 ml Output Total 350 ml 1100 ml Balance 1377 ml 700 ml 515 ml -145 ml Intake Oral 960 ml 600 ml 240 ml IV Total 667 ml 100 ml 515 ml 715 ml Other 100 ml Output Urine Total 350 ml 1100 ml # Bowel Movements 0 Result Diagram: 11/09/17 0850 11/09/17 0850 Objective Remarks GENERAL: patient lying in bed. Appears comfortable. -speech clear with some word finding difficulty. no change. SKIN: Warm and dry. HEAD: Normocephalic. EYES: No scleral icterus. No injection or drainage. NECK: Supple, trachea midline. No JVD. CARDIOVASCULAR: Regular rate and rhythm without murmurs, gallops, or rubs. RESPIRATORY: Breath sounds equal bilaterally. No accessory muscle use. GASTROINTESTINAL: Abdomen soft, non-tender, nondistended. PEG tube in place without surrounding erythema or leakage. MUSCULOSKELETAL: No cyanosis, or edema. flaccid paralysis on the right. BACK: Nontender without obvious deformity. No CVA tenderness. A/P Assessment and Plan 11/09. Fever again overnight. Pseudomonas on urinalysis. Follow-up urine cultures. Continue Zosyn. // Acute encephalopathy - improving. //Left Thalamic Hemorrhage //Intracerebral Hemorrhage - Repeat CT of the head showed improving bleed - Neurosurgery follow-up appreciated; stable for dc to SNF per neurosurgery. - Continue rehabilitation efforts with PT, OT, speech - On Seroquel to control agitated delirium. Roxicodone as needed for pain //Anemia likely due to chronic disease. H/H fairly stable. will monitor periodically. //Healthcare associated pneumonia treated. //UTI: treated. //Respiratory failure s/p trach trach has been removed. will monitor. pulmonary f/u appreciated. //diabetes mellitus - continue Levemir 15 units SQ q12h - Continue sliding scale insulin with Accu-Cheks. - hemoglobin A1c 9.1. //Hypertension - Intermittent hypertension now well controlled - Continue clonidine, amlodipine and propranolol - Continue hydralazine. //Nutrition status: - Status post PEG tube - -on diet now per ST. -calorie count in process- will consider removing the PEG- pending the result of calorie count. //Acute kidney injury, most likely has CKD per nephrology: Renal function stabilized. - monitor renal function periodically. //fever = Urine culture with pseudomonas. Continue Zosyn. The following. Appreciate assistance. //pain to the right leg. DVT with no evidence of DVT- continue pain control. //diplopia -Ophthalmology consult ordered last week, however do not see one in the chart. We'll reorder ophthalmology consultation. //Physical deconditioning/right sided hemiparesis - OOB to stretcher chair daily - PT/OT following AND SPEECH PROPH: - SCD's. Pepcid for GI prophylaxis Discharge Planning Await case management ability to find SNF VS INPATIENT REHAB FOR AGGRESSIVE PT AND OT AND Lucius Felipe MD Nov 09, 2017 17:10
[2017-11-09 20:00] VITALS: BP 152/85; PULSE 81; RESP 19; TEMP 99.4; O2SAT 98
[2017-11-09] MEDS: ATORVASTATIN 40 MG TAB DOBHOFF SCH (20:49)
[2017-11-10] VITALS: BP 140/85; PULSE 77; RESP 18; TEMP 98.2; O2SAT 97
[2017-11-10 04:00] VITALS: BP 147/87; PULSE 77; RESP 18; TEMP 97.7; O2SAT 97
[2017-11-10] MEDS: PIPERACIL-TAZO 4.5 GM PREMIX 100 ML IV SCH ×3 (05:49→17:10)
[2017-11-10] MEDS: QUEtiapine FUMARATE 25 MG TAB G-TUBE SCH ×3 (05:50→22:01)
[2017-11-10] MEDS: PROPRANOLOL HCL 40 MG TAB G-TUBE SCH ×4 (05:50→23:50)
[2017-11-10] MEDS: cloNIDine HCL 0.3 MG TAB G-TUBE SCH ×3 (05:50→22:01)
[2017-11-10] MEDS: hydrALAZINE HCL 100 MG TAB G-TUBE SCH ×3 (05:55→22:01)
[2017-11-10 08:00] VITALS: BP 126/73; PULSE 74; RESP 18; TEMP 99.1; O2SAT 98
[2017-11-10] MEDS: INSULIN ASPART SUPPLEMENTAL SCALE SQ SCH ×4 (08:00→21:00)
[2017-11-10] MEDS: CHLORHEXIDINE GLUCONATE 0.12% 15 ML CUP SWISH-SPIT SCH ×3 (09:00→17:10)
[2017-11-10] MEDS: POLYETHYLENE GLYCOL 17 GM PKG G-TUBE SCH ×2 (09:00→21:00)
[2017-11-10] MEDS: GABAPENTIN 100 MG CAP PO SCH ×3 (09:54→17:10)
[2017-11-10] MEDS: FAMOTIDINE 20 MG TAB NG SCH ×2 (09:54→22:01)
[2017-11-10] MEDS: DOCUSATE SODIUM 50 MG/SENNA 8.6 MG TAB G-TUBE SCH ×2 (09:54→21:00)
[2017-11-10] MEDS: INSULIN DETEMIR 100 UNITS/ML VIAL SQ SCH ×2 (09:55→22:00)
[2017-11-10] MEDS: FREE WATER G-TUBE SCH ×2 (09:55→21:00)
[2017-11-10] MEDS: FLUTICASONE PROPIONATE 50 MCG/ACT 16 GM NASAL SPRAY EACH NARE SCH (10:00)
[2017-11-10 12:00] VITALS: BP 155/92; PULSE 77; RESP 18; TEMP 99.2; O2SAT 98
[2017-11-10 16:17] VITALS: BP 138/85; PULSE 73; RESP 18; TEMP 98.8; O2SAT 96
[2017-11-10 20:40] VITALS: BP 159/76; PULSE 77; RESP 18; TEMP 98.6; O2SAT 96
[2017-11-10] MEDS: ATORVASTATIN 40 MG TAB DOBHOFF SCH (22:01)
--- NOTE | 2017-11-10 22:55 | HHI.PR ---
Subjective Remarks no fevers overnight. Patient denies any chest pain or shortness of breath. Denies any dysuria. Objective Vital Signs Date Time Temp Pulse Resp B/P (MAP) Pulse Ox O2 Delivery O2 Flow Rate FiO2 11/10/17 20:40 98.6 77 18 159/76 (103) 96 11/10/17 16:17 98.8 73 18 138/85 (102) 96 11/10/17 12:00 99.2 77 18 155/92 (113) 98 11/10/17 12:00 Room Air 11/10/17 08:00 99.1 74 18 126/73 (90) 98 11/10/17 08:00 Room Air 11/10/17 04:00 97.7 77 18 147/87 (107) 97 11/10/17 00:00 98.2 77 18 140/85 (103) 97 I/O 11/09/17 11/09/17 11/09/17 11/10/17 11/10/17 11/10/17 07:00 15:00 23:00 07:00 15:00 23:00 Intake Total 955 ml 100 ml 480 ml 700 ml 240 ml Output Total 1100 ml 1100 ml 350 ml Balance -145 ml 100 ml -620 ml 350 ml 240 ml Intake Oral 240 ml 480 ml 500 ml 240 ml IV Total 715 ml 100 ml 200 ml Output Urine Total 1100 ml 1100 ml 350 ml # Voids 2 # Bowel Movements 0 0 1 Result Diagram: 11/09/17 0850 11/09/17 0850 Objective Remarks GENERAL: patientsitting up on edge of bed.. Appears comfortable. -speech clear with some word finding difficulty. no change. SKIN: Warm and dry. HEAD: Normocephalic. EYES: No scleral icterus. No injection or drainage. NECK: Supple, trachea midline. No JVD. CARDIOVASCULAR: Regular rate and rhythm without murmurs, gallops, or rubs. RESPIRATORY: Breath sounds equal bilaterally. No accessory muscle use. GASTROINTESTINAL: Abdomen soft, non-tender, nondistended. PEG tube in place without surrounding erythema or leakage. MUSCULOSKELETAL: No cyanosis, or edema. flaccid paralysis on the right. BACK: Nontender without obvious deformity. No CVA tenderness. A/P Assessment and Plan 11/10. afebrile overnight. Pseudomonas on urinalysis, sensitive to Levaquin. Switched to Levaquin. Diplopiaconsult ophthalmology tomorrow. Discussed with case management. // Acute encephalopathy - improving. //Left Thalamic Hemorrhage //Intracerebral Hemorrhage - Repeat CT of the head showed improving bleed - Neurosurgery follow-up appreciated; stable for dc to SNF per neurosurgery. - Continue rehabilitation efforts with PT, OT, speech - On Seroquel to control agitated delirium. Roxicodone as needed for pain //Anemia likely due to chronic disease. H/H fairly stable. will monitor periodically. //Healthcare associated pneumonia treated. //UTI: treated. //Respiratory failure s/p trach trach has been removed. will monitor. pulmonary f/u appreciated. //diabetes mellitus - continue Levemir 15 units SQ q12h - Continue sliding scale insulin with Accu-Cheks. - hemoglobin A1c 9.1. //Hypertension - Intermittent hypertension now well controlled - Continue clonidine, amlodipine and propranolol - Continue hydralazine. //Nutrition status: - Status post PEG tube - -on diet now per ST. -calorie count in process- will consider removing the PEG- pending the result of calorie count. //Acute kidney injury, most likely has CKD per nephrology: Renal function stabilized. - monitor renal function periodically. //fever = Urine culture with pseudomonas. Continue Zosyn. The following. Appreciate assistance. //pain to the right leg. DVT with no evidence of DVT- continue pain control. //diplopia -Ophthalmology consult ordered last week, however do not see one in the chart. We'll reorder ophthalmology consultation. //Physical deconditioning/right sided hemiparesis - OOB to stretcher chair daily - PT/OT following AND SPEECH PROPH: - SCD's. Pepcid for GI prophylaxis Discharge Planning Await case management ability to find SNF VS INPATIENT REHAB FOR AGGRESSIVE PT AND OT AND ST Lucius Bocanegra MD Nov 10, 2017 22:55
[2017-11-10] MEDS ORDERED: LEVOFLOXACIN 750 MG TAB PO ONE (23:00)
[2017-11-11] VITALS: BP 156/76; PULSE 85; RESP 20; TEMP 98.7; O2SAT 96
[2017-11-11 04:00] VITALS: BP 142/88; PULSE 78; RESP 20; TEMP 98.2; O2SAT 97
[2017-11-11] MEDS: QUEtiapine FUMARATE 25 MG TAB G-TUBE SCH ×3 (05:37→22:22)
[2017-11-11] MEDS: PROPRANOLOL HCL 40 MG TAB G-TUBE SCH ×4 (05:37→23:56)
[2017-11-11] MEDS: hydrALAZINE HCL 100 MG TAB G-TUBE SCH ×3 (05:37→22:28)
[2017-11-11] MEDS: cloNIDine HCL 0.3 MG TAB G-TUBE SCH ×3 (05:37→22:22)
[2017-11-11 08:00] VITALS: BP 122/73; PULSE 77; RESP 18; TEMP 97; O2SAT 97
[2017-11-11] MEDS: INSULIN ASPART SUPPLEMENTAL SCALE SQ SCH ×4 (08:00→21:00)
[2017-11-11] MEDS: FAMOTIDINE 20 MG TAB NG SCH ×2 (08:05→22:24)
[2017-11-11] MEDS: GABAPENTIN 100 MG CAP PO SCH ×3 (08:05→18:10)
[2017-11-11] MEDS: LEVOFLOXACIN 750 MG TAB PO SCH (08:05)
[2017-11-11] MEDS: FREE WATER G-TUBE SCH ×2 (08:06→21:00)
[2017-11-11] MEDS: POLYETHYLENE GLYCOL 17 GM PKG G-TUBE SCH ×2 (08:06→21:00)
[2017-11-11] MEDS: DOCUSATE SODIUM 50 MG/SENNA 8.6 MG TAB G-TUBE SCH ×2 (08:08→22:22)
[2017-11-11] MEDS: FLUTICASONE PROPIONATE 50 MCG/ACT 16 GM NASAL SPRAY EACH NARE SCH (08:08)
[2017-11-11] MEDS: CHLORHEXIDINE GLUCONATE 0.12% 15 ML CUP SWISH-SPIT SCH ×3 (08:14→18:00)
[2017-11-11 09:00] LABS: CREATININE 0.92 MG/DL (0.60-1.30)
[2017-11-11] MEDS: INSULIN DETEMIR 100 UNITS/ML VIAL SQ SCH ×2 (09:23→22:00)
[2017-11-11 11:52] VITALS: BP 158/92; PULSE 78; RESP 18; O2SAT 95
[2017-11-11 15:46] VITALS: BP 134/77; PULSE 90; RESP 18; TEMP 98.7; O2SAT 97
--- NOTE | 2017-11-11 18:00 | HHI.PR ---
Subjective Remarks Patient seen this morning around 10 AM. Says he is feeling all right. Denies any chest pain or shortness of breath. Denies any nausea or vomiting. Diplopia continues. Objective Vital Signs Date Time Temp Pulse Resp B/P (MAP) Pulse Ox O2 Delivery O2 Flow Rate FiO2 11/11/17 15:46 98.7 90 18 134/77 (96) 97 11/11/17 12:00 Room Air 11/11/17 11:52 78 18 158/92 (114) 95 11/11/17 08:00 97.0 77 18 122/73 (89) 97 11/11/17 08:00 Room Air 11/11/17 04:00 98.2 78 20 142/88 (106) 97 11/11/17 00:00 98.7 85 20 156/76 (102) 96 11/10/17 20:40 98.6 77 18 159/76 (103) 96 I/O 11/10/17 11/10/17 11/10/17 11/11/17 11/11/17 11/11/17 07:00 15:00 23:00 07:00 15:00 23:00 Intake Total 700 ml 240 ml 640 ml 100 ml Output Total 350 ml 1400 ml Balance 350 ml 240 ml -760 ml 100 ml Intake Oral 500 ml 240 ml 640 ml IV Total 200 ml 100 ml Output Urine Total 350 ml 1400 ml # Voids 2 # Bowel Movements 1 Result Diagram: 11/09/17 0850 11/11/17 0753 Objective Remarks GENERAL: patientsitting up in bed Appears comfortable. -speech clear with some word finding difficulty. no change. SKIN: Warm and dry. HEAD: Normocephalic. EYES: No scleral icterus. No injection or drainage. NECK: Supple, trachea midline. No JVD. CARDIOVASCULAR: Regular rate and rhythm without murmurs, gallops, or rubs. RESPIRATORY: Breath sounds equal bilaterally. No accessory muscle use. GASTROINTESTINAL: Abdomen soft, non-tender, nondistended. PEG tube in place without surrounding erythema or leakage. MUSCULOSKELETAL: No cyanosis, or edema. flaccid paralysis on the right. BACK: Nontender without obvious deformity. No CVA tenderness. A/P Assessment and Plan 11/11. Continues afebrile. Continue Levaquin to complete course of treatment for Pseudomonas UTI -stop date for Levaquin is 11/17. Consult placed to ophthalmology. Discussed with nursing, case management. 11/10. afebrile overnight. Pseudomonas on urinalysis, sensitive to Levaquin. Switched to Levaquin. Diplopiaconsult ophthalmology tomorrow. Discussed with case management. // Acute encephalopathy - improving. //Left Thalamic Hemorrhage //Intracerebral Hemorrhage - Repeat CT of the head showed improving bleed - Neurosurgery follow-up appreciated; stable for dc to SNF per neurosurgery. - Continue rehabilitation efforts with PT, OT, speech - On Seroquel to control agitated delirium. Roxicodone as needed for pain //Anemia likely due to chronic disease. H/H fairly stable. will monitor periodically. //Healthcare associated pneumonia treated. //UTI: treated. //Respiratory failure s/p trach trach has been removed. will monitor. pulmonary f/u appreciated. //diabetes mellitus - continue Levemir 15 units SQ q12h - Continue sliding scale insulin with Accu-Cheks. - hemoglobin A1c 9.1. //Hypertension - Intermittent hypertension now well controlled - Continue clonidine, amlodipine and propranolol - Continue hydralazine. //Nutrition status: - Status post PEG tube - -on diet now per ST. -calorie count in process- will consider removing the PEG- pending the result of calorie count. //Acute kidney injury, most likely has CKD per nephrology: Renal function stabilized. - monitor renal function periodically. //fever = Urine culture with pseudomonas. Continue Zosyn. The following. Appreciate assistance. //pain to the right leg. DVT with no evidence of DVT- continue pain control. //diplopia -Ophthalmology consult ordered last week, however do not see one in the chart. We'll reorder ophthalmology consultation. //Physical deconditioning/right sided hemiparesis - OOB to stretcher chair daily - PT/OT following AND SPEECH PROPH: - SCD's. Pepcid for GI prophylaxis Discharge Planning Await case management ability to find SNF VS INPATIENT REHAB FOR AGGRESSIVE PT AND OT AND Lucius Felipe MD Nov 11, 2017 18:00
[2017-11-11 21:20] VITALS: BP 152/90; PULSE 75; RESP 16; TEMP 98.2; O2SAT 98
[2017-11-11] MEDS: ATORVASTATIN 40 MG TAB DOBHOFF SCH (22:23)
[2017-11-12] VITALS: BP 151/82; PULSE 75
[2017-11-12 05:42] VITALS: BP 151/76; PULSE 81; RESP 18; TEMP 98.2; O2SAT 97
[2017-11-12] MEDS: hydrALAZINE HCL 100 MG TAB G-TUBE SCH ×3 (06:32→21:43)
[2017-11-12] MEDS: QUEtiapine FUMARATE 25 MG TAB G-TUBE SCH ×3 (06:32→21:43)
[2017-11-12] MEDS: PROPRANOLOL HCL 40 MG TAB G-TUBE SCH ×3 (06:32→18:12)
[2017-11-12] MEDS: cloNIDine HCL 0.3 MG TAB G-TUBE SCH ×3 (06:32→21:43)
[2017-11-12] MEDS: INSULIN ASPART SUPPLEMENTAL SCALE SQ SCH ×4 (08:00→21:00)
[2017-11-12 08:08] VITALS: BP 142/94; PULSE 80; RESP 21; TEMP 98.6; O2SAT 98
[2017-11-12] MEDS: FREE WATER G-TUBE SCH ×2 (09:00→21:00)
[2017-11-12] MEDS: FLUTICASONE PROPIONATE 50 MCG/ACT 16 GM NASAL SPRAY EACH NARE SCH (09:00)
[2017-11-12] MEDS: CHLORHEXIDINE GLUCONATE 0.12% 15 ML CUP SWISH-SPIT SCH ×3 (09:00→14:33)
[2017-11-12] MEDS: POLYETHYLENE GLYCOL 17 GM PKG G-TUBE SCH ×2 (10:23→21:00)
[2017-11-12] MEDS: DOCUSATE SODIUM 50 MG/SENNA 8.6 MG TAB G-TUBE SCH ×2 (10:24→21:00)
[2017-11-12] MEDS: FAMOTIDINE 20 MG TAB NG SCH ×2 (10:24→21:43)
[2017-11-12] MEDS: LEVOFLOXACIN 750 MG TAB PO SCH (10:24)
[2017-11-12] MEDS: GABAPENTIN 100 MG CAP PO SCH ×3 (10:25→18:12)
[2017-11-12] MEDS: INSULIN DETEMIR 100 UNITS/ML VIAL SQ SCH ×2 (10:29→21:44)
[2017-11-12 12:00] VITALS: BP 151/92; PULSE 82; RESP 20; TEMP 98.6; O2SAT 98
--- NOTE | 2017-11-12 13:55 | PD.CONS ---
History of Present Illness Service Ophthalmology Consult Requested By Reason for Consult diplopia Primary Care Physician Unknown Diagnoses: History of Present Illness 46 yo BM presented 2 months ago with HTN emergency. CT showed left thalamic intracranial hemorrhage with left to right shift. Pt states he has had double vision since he has been in the hospital and has been compensating by closing one eye. It is constant, binocular, worse in upgaze. No significant ocular history. Past Family Social History Allergies: Coded Allergies: EMIL Inhibitors (Verified Allergy, Unknown, 09/25/17) No Known Allergies (Verified Allergy, Unknown, 09/25/17) Physical Exam Vital Signs Vital Signs Date Time Temp Pulse Resp B/P (MAP) Pulse Ox O2 Delivery O2 Flow Rate FiO2 11/12/17 12:00 98.6 82 20 151/92 (111) 98 11/12/17 08:08 98.6 80 21 142/94 (110) 98 11/12/17 08:00 Room Air 11/12/17 05:42 98.2 81 18 151/76 (101) 97 11/12/17 00:00 75 151/82 (105) 11/11/17 21:20 Room Air 11/11/17 21:20 98.2 75 16 152/90 (110) 98 11/11/17 15:46 98.7 90 18 134/77 (96) 97 Physical Exam Va sc at near OD 20/20, OS 20/20 EOM limited up gaze OU CVF full OU Pupils 2-1 no APD OU IOP normal to palpation OU Anterior exam OD - normal eyelid, C/S W&Q, K clear, AC deep, pupil round, lens clear OS - normal eyelid, C/S W&Q, K clear, AC deep, pupil round, lens clear Laboratory Date/Time Source Procedure Growth Status 11/07/17 23:30 Blood Peripheral Aerobic Blood Culture - Final NO GROWTH IN 5 DAYS Complete 11/07/17 23:30 Blood Peripheral Anaerobic Blood Culture - Final NO GROWTH IN 5 DAYS Complete 09/28/17 13:45 Stool Stool Stool Occult Blood (ALEXIS) - Final HEMOCCULT NEGATIVE Complete 09/12/17 06:00 Respiratory MRSA Surveillance Culture - Final NO MRSA ISOLATED Complete 11/08/17 09:39 Urine Catheterized Urine Urine Culture - Final Pseudomonas Aeruginosa Complete Result Diagram: 11/09/17 0850 11/11/17 7442 Assessment and Plan Problem List: (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 The PC is responsible for vertical eye movement, especially upward eye movement. Explained to patient there may be improvement in the next 6 months, but there is also the possibility this may be permanent. In the interim, the best way to compensate is by covering one eye. This can be done by patching the eye, or wearing a blank pair of glasses with one side blacked out. The covered eye can be alternated so one eye doesn't get fatigued. If there is no improvement, he may need an evaluation for eye muscle surgery. Follow up as outpatient in 1 month. Ofelia Holloway MD Nov 12, 2017 13:55
--- NOTE | 2017-11-12 14:42 | HHI.PR ---
Subjective Remarks ALERT NO DISTRESS TRACH tube removed Objective Vital Signs Date Time Temp Pulse Resp B/P (MAP) Pulse Ox O2 Delivery O2 Flow Rate FiO2 11/12/17 12:00 98.6 82 20 151/92 (111) 98 11/12/17 08:08 98.6 80 21 142/94 (110) 98 11/12/17 08:00 Room Air 11/12/17 05:42 98.2 81 18 151/76 (101) 97 11/12/17 00:00 75 151/82 (105) 11/11/17 21:20 Room Air 11/11/17 21:20 98.2 75 16 152/90 (110) 98 11/11/17 15:46 98.7 90 18 134/77 (96) 97 I/O 11/11/17 11/11/17 11/11/17 11/12/17 11/12/17 11/12/17 07:00 15:00 23:00 07:00 15:00 23:00 Intake Total 640 ml 100 ml 240 ml Output Total 1400 ml 300 ml Balance -760 ml 100 ml -60 ml Intake Oral 640 ml 240 ml IV Total 100 ml Output Urine Total 1400 ml 300 ml # Bowel Movements 0 Result Diagram: 11/09/17 0850 11/11/17 0753 Objective Remarks GENERAL: SKIN: Warm and dry. HEAD: Atraumatic. Normocephalic. EYES: Pupils equal and round. No scleral icterus. No injection or drainage. ENT: No nasal bleeding or discharge. Mucous membranes pink and moist. NECK: Trachea midline. No JVD. CARDIOVASCULAR: Regular rate and rhythm. RESPIRATORY: No accessory muscle use. Clear to auscultation. Breath sounds equal bilaterally. GASTROINTESTINAL: Abdomen soft, non-tender, nondistended. Hepatic and splenic margins not palpable. MUSCULOSKELETAL: Extremities without clubbing, cyanosis, or edema. No obvious deformities. NEUROLOGICAL: Awake and alert. No obvious cranial nerve deficits. Motor grossly within normal limits. Five out of 5 muscle strength in the arms and legs. Normal speech. PSYCHIATRIC: Appropriate mood and affect; insight and judgment normal. Assessment and Plan Assessment and Plan RESPIRATORY FAILURE S/P CVA OBESITY HTN PLAN O2 NEEDED PULM TOILET INCREASE ACTIVITY Wang Piña MD Nov 12, 2017 14:42
--- NOTE | 2017-11-12 15:34 | HHI.PR ---
Subjective Remarks Patient seen today around 1 PM. Says he is feeling all right. No complaints. Objective Vital Signs Date Time Temp Pulse Resp B/P (MAP) Pulse Ox O2 Delivery O2 Flow Rate FiO2 11/12/17 12:00 98.6 82 20 151/92 (111) 98 11/12/17 08:08 98.6 80 21 142/94 (110) 98 11/12/17 08:00 Room Air 11/12/17 05:42 98.2 81 18 151/76 (101) 97 11/12/17 00:00 75 151/82 (105) 11/11/17 21:20 Room Air 11/11/17 21:20 98.2 75 16 152/90 (110) 98 11/11/17 15:46 98.7 90 18 134/77 (96) 97 I/O 11/11/17 11/11/17 11/11/17 11/12/17 11/12/17 11/12/17 07:00 15:00 23:00 07:00 15:00 23:00 Intake Total 640 ml 100 ml 240 ml Output Total 1400 ml 300 ml Balance -760 ml 100 ml -60 ml Intake Oral 640 ml 240 ml IV Total 100 ml Output Urine Total 1400 ml 300 ml # Bowel Movements 0 Result Diagram: 11/09/17 0850 11/11/17 0753 Objective Remarks GENERAL: patientsitting up in there at bedside. Appears comfortable. -speech clear with some word finding difficulty. Again, no change. SKIN: Warm and dry. HEAD: Normocephalic. EYES: No scleral icterus. No injection or drainage. NECK: Supple, trachea midline. No JVD. CARDIOVASCULAR: Regular rate and rhythm without murmurs, gallops, or rubs. RESPIRATORY: Breath sounds equal bilaterally. No accessory muscle use. GASTROINTESTINAL: Abdomen soft, non-tender, nondistended. PEG tube in place without surrounding erythema or leakage. MUSCULOSKELETAL: No cyanosis, or edema. flaccid paralysis on the right. BACK: Nontender without obvious deformity. No CVA tenderness. A/P Assessment and Plan 11/12. Patient doing well. Continue Levaquin for UTI with stopped date 11/17. has been seen by ophthalmology. Will need follow-up or vertical gaze palsy with Dr. Holloway as outpatient in 1 month. // Acute encephalopathy - improving. //Left Thalamic Hemorrhage //Intracerebral Hemorrhage - Repeat CT of the head showed improving bleed - Neurosurgery follow-up appreciated; stable for dc to SNF per neurosurgery. - Continue rehabilitation efforts with PT, OT, speech - On Seroquel to control agitated delirium. Roxicodone as needed for pain //Anemia likely due to chronic disease. H/H fairly stable. will monitor periodically. //Healthcare associated pneumonia treated. //UTI: treated. //Respiratory failure s/p trach trach has been removed. will monitor. pulmonary f/u appreciated. //diabetes mellitus - continue Levemir 15 units SQ q12h - Continue sliding scale insulin with Accu-Cheks. - hemoglobin A1c 9.1. //Hypertension - Intermittent hypertension now well controlled - Continue clonidine, amlodipine and propranolol - Continue hydralazine. //Nutrition status: - Status post PEG tube - -on diet now per ST. -calorie count in process- will consider removing the PEG- pending the result of calorie count. //Acute kidney injury, most likely has CKD per nephrology: Renal function stabilized. - monitor renal function periodically. //fever = Urine culture with pseudomonas. Continue Zosyn. The following. Appreciate assistance. //pain to the right leg. DVT with no evidence of DVT- continue pain control. //diplopia //vertical gaze palsy - has been seen by ophthalmology. Will need follow-up or vertical gaze palsy with Dr. Holloway as outpatient in 1 month. //Physical deconditioning/right sided hemiparesis - OOB to stretcher chair daily - PT/OT following AND SPEECH PROPH: - SCD's. Pepcid for GI prophylaxis Discharge Planning Await case management ability to find SNF VS INPATIENT REHAB FOR AGGRESSIVE PT AND OT AND Lucius Felipe MD Nov 12, 2017 15:34
[2017-11-12 16:08] VITALS: BP 129/85; PULSE 81; RESP 20; TEMP 98.1; O2SAT 99
--- NOTE | 2017-11-12 16:18 | HHI.IDPN ---
Note Infectious Disease Note Patient is up in wheelchair. placed there with assistance. His awake and alert. No AVENDAÑO. No distress. Speech is fluent. Afebrile. Admitted with hypertensive central nervous system bleed involving the right thalamus and extending into the lateral third ventricle on 08/29/17. PAST MEDICAL HISTORY 1. Hypertension. 2. History of CVA. ALLERGIES NO KNOWN DRUG ALLERGIES. ANTIBIOTIC: Levaquin. OBJECTIVE: Vital Signs Date Time Temp Pulse Resp B/P (MAP) Pulse Ox O2 Delivery O2 Flow Rate FiO2 11/12/17 12:00 98.6 82 20 151/92 (111) 98 11/12/17 08:08 98.6 80 21 142/94 (110) 98 11/12/17 08:00 Room Air 11/12/17 05:42 98.2 81 18 151/76 (101) 97 11/12/17 00:00 75 151/82 (105) 11/11/17 21:20 Room Air 11/11/17 21:20 98.2 75 16 152/90 (110) 98 Laboratory Tests Test 11/11/17 07:53 Creatinine 0.92 MG/DL Estimat Glomerular Filtration Rate 108 ML/MIN Microbiology Date/Time Source Procedure Growth Status 11/07/17 23:30 Blood Peripheral Aerobic Blood Culture - Preliminary NO GROWTH IN 2 DAYS Resulted 11/07/17 23:30 Blood Peripheral Anaerobic Blood Culture - Preliminary NO GROWTH IN 2 DAYS Resulted 11/07/17 23:25 Blood Peripheral Aerobic Blood Culture - Preliminary NO GROWTH IN 2 DAYS Resulted 11/07/17 23:25 Blood Peripheral Anaerobic Blood Culture - Preliminary NO GROWTH IN 2 DAYS Resulted 11/08/17 09:39 Urine Catheterized Urine Urine Culture - Preliminary Pseudomonas Species Resulted IMAGING: Chest X-Ray 11/07/17 0000 Signed Impressions: Service Date/Time: Tuesday, November 07, 2017 21:22 - CONCLUSION: Mild infiltrate on the left. Ignacio Lares MD Chest X-Ray 09/17/17 0600 Signed Impressions: Service Date/Time: Sunday, September 17, 2017 04:32 - CONCLUSION: Left basilar airspace disease. Julian Loaiza MD Maxillofacial CT 09/16/17 0000 Signed Impressions: Service Date/Time: September 01:03 - CONCLUSION: 1. Evidence of acute pansinusitis. 2. Opacification of multiple bilateral mastoid air cells most characteristic of mastoiditis. 3. Mildly prominent cervical chain nodes which may be reactive. Angelo Conn MD PHYSICAL EXAMINATION GENERAL: Awake. No Distress. HEENT: No icterus. NECK: No adenopathy. LUNGS: Clear breath sounds. HEART: Regular S1-S2 without murmurs. ABDOMEN: Bowel sounds present, soft. No tenderness. EXTREMITIES: No clubbing or cyanosis. Trace edema of the hands. NEUROLOGIC: Weakness on the R upper and lower extremity. Alert and oriented. Speech is fluent. PSYCHIATRIC: Calm. IMPRESSION Fever likely from UTI. Urine culture with pseudomonas. Pneumonia vs atelectasis at the left base. Post Thalamic bleed. RECOMMENDATIONS Give Levaquin for another 2 days then D/C. I will follow PRN. Kaz Gregg MD Nov 12, 2017 16:18
[2017-11-12 20:00] VITALS: BP 162/89; PULSE 78; RESP 18; TEMP 99.2; O2SAT 100
[2017-11-12] MEDS: ATORVASTATIN 40 MG TAB DOBHOFF SCH (21:43)
[2017-11-13] VITALS (7 sets, daily range): BP systolic 131–163; BP diastolic 75–96; PULSE 74–80; RESP 18–21; TEMP 98.3–99.2; O2SAT 94–99
[2017-11-13] MEDS: PROPRANOLOL HCL 40 MG TAB G-TUBE SCH ×5 (00:39→23:59)
[2017-11-13] MEDS: QUEtiapine FUMARATE 25 MG TAB G-TUBE SCH ×3 (05:37→21:28)
[2017-11-13] MEDS: hydrALAZINE HCL 100 MG TAB G-TUBE SCH ×3 (05:37→21:27)
[2017-11-13] MEDS: cloNIDine HCL 0.3 MG TAB G-TUBE SCH ×3 (05:37→21:28)
[2017-11-13] MEDS: CHLORHEXIDINE GLUCONATE 0.12% 15 ML CUP SWISH-SPIT SCH ×3 (09:00→16:44)
[2017-11-13] MEDS: FREE WATER G-TUBE SCH ×2 (09:00→21:00)
[2017-11-13] MEDS: POLYETHYLENE GLYCOL 17 GM PKG G-TUBE SCH ×2 (09:00→21:00)
[2017-11-13 09:12] LABS: CREATININE 1.07 MG/DL (0.60-1.30)
[2017-11-13] MEDS: INSULIN ASPART SUPPLEMENTAL SCALE SQ SCH ×4 (09:25→21:00)
[2017-11-13] MEDS: DOCUSATE SODIUM 50 MG/SENNA 8.6 MG TAB G-TUBE SCH ×2 (09:26→21:28)
[2017-11-13] MEDS: LEVOFLOXACIN 750 MG TAB PO SCH (09:26)
[2017-11-13] MEDS: GABAPENTIN 100 MG CAP PO SCH ×3 (09:26→17:02)
[2017-11-13] MEDS: FLUTICASONE PROPIONATE 50 MCG/ACT 16 GM NASAL SPRAY EACH NARE SCH (09:26)
[2017-11-13] MEDS: FAMOTIDINE 20 MG TAB NG SCH ×2 (09:26→21:28)
[2017-11-13] MEDS: INSULIN DETEMIR 100 UNITS/ML VIAL SQ SCH ×2 (09:27→21:29)
--- NOTE | 2017-11-13 15:30 | HHI.PR ---
Subjective Remarks ALERT NO DISTRESS TRACH tube removed Objective Vital Signs Date Time Temp Pulse Resp B/P (MAP) Pulse Ox O2 Delivery O2 Flow Rate FiO2 11/13/17 12:07 98.6 76 20 132/78 (96) 97 11/13/17 08:58 94 11/13/17 08:07 98.3 76 20 131/75 (93) 94 11/13/17 04:00 99.2 76 20 163/89 (113) 98 11/13/17 00:00 99.0 80 18 161/96 (117) 98 11/12/17 20:00 Room Air 11/12/17 20:00 99.2 78 18 162/89 (113) 100 11/12/17 16:08 98.1 81 20 129/85 (100) 99 I/O 11/12/17 11/12/17 11/12/17 11/13/17 11/13/17 11/13/17 07:00 15:00 23:00 07:00 15:00 23:00 Intake Total 240 ml 240 ml 360 ml Output Total 300 ml 500 ml 750 ml Balance -60 ml -260 ml -390 ml Intake Oral 240 ml 240 ml 360 ml Output Urine Total 300 ml 500 ml 750 ml # Bowel Movements 0 0 Result Diagram: 11/09/17 0850 11/13/17 0756 Objective Remarks GENERAL: SKIN: Warm and dry. HEAD: Atraumatic. Normocephalic. EYES: Pupils equal and round. No scleral icterus. No injection or drainage. ENT: No nasal bleeding or discharge. Mucous membranes pink and moist. NECK: Trachea midline. No JVD. CARDIOVASCULAR: Regular rate and rhythm. RESPIRATORY: No accessory muscle use. Clear to auscultation. Breath sounds equal bilaterally. GASTROINTESTINAL: Abdomen soft, non-tender, nondistended. Hepatic and splenic margins not palpable. MUSCULOSKELETAL: Extremities without clubbing, cyanosis, or edema. No obvious deformities. NEUROLOGICAL: Awake and alert. No obvious cranial nerve deficits. Motor grossly within normal limits. Five out of 5 muscle strength in the arms and legs. Normal speech. PSYCHIATRIC: Appropriate mood and affect; insight and judgment normal. Assessment and Plan Assessment and Plan RESPIRATORY FAILURE S/P CVA OBESITY HTN PLAN O2 NEEDED PULM TOILET INCREASE ACTIVITY Wang Piña MD Nov 13, 2017 15:30
--- NOTE | 2017-11-13 16:18 | HHI.PR ---
Subjective Remarks Patient seen today around 10 AM. No acute changes. Patient reports feeling well. Denies any chest pain or shortness of breath. Objective Vital Signs Date Time Temp Pulse Resp B/P (MAP) Pulse Ox O2 Delivery O2 Flow Rate FiO2 11/13/17 16:07 98.4 74 21 143/80 (101) 99 11/13/17 12:07 98.6 76 20 132/78 (96) 97 11/13/17 08:58 94 11/13/17 08:07 98.3 76 20 131/75 (93) 94 11/13/17 08:00 Room Air 11/13/17 04:00 99.2 76 20 163/89 (113) 98 11/13/17 00:00 99.0 80 18 161/96 (117) 98 11/12/17 20:00 Room Air 11/12/17 20:00 99.2 78 18 162/89 (113) 100 I/O 11/12/17 11/12/17 11/12/17 11/13/17 11/13/17 11/13/17 07:00 15:00 23:00 07:00 15:00 23:00 Intake Total 240 ml 240 ml 360 ml Output Total 300 ml 500 ml 750 ml Balance -60 ml -260 ml -390 ml Intake Oral 240 ml 240 ml 360 ml Output Urine Total 300 ml 500 ml 750 ml # Bowel Movements 0 0 Result Diagram: 11/09/17 0850 11/13/17 0756 Objective Remarks GENERAL: patient sleeping, wakes up for exam. Appears comfortable. -speech clear with some word finding difficulty. no change. SKIN: Warm and dry. HEAD: Normocephalic. EYES: No scleral icterus. No injection or drainage. NECK: Supple, trachea midline. No JVD. CARDIOVASCULAR: Regular rate and rhythm without murmurs, gallops, or rubs. RESPIRATORY: Breath sounds equal bilaterally. No accessory muscle use. GASTROINTESTINAL: Abdomen soft, non-tender, nondistended. PEG tube in place without surrounding erythema or leakage. MUSCULOSKELETAL: No cyanosis, or edema. flaccid paralysis on the right. BACK: Nontender without obvious deformity. No CVA tenderness. A/P Assessment and Plan 11/13. Patient seen and examined. Continue Levaquin for UTI until 11/17. Discussed with nursing and case management at multidisciplinary rounds. 11/12. Patient doing well. Continue Levaquin for UTI with stopped date 11/17. has been seen by ophthalmology. Will need follow-up or vertical gaze palsy with Dr. Holloway as outpatient in 1 month. // Acute encephalopathy - improving. //Left Thalamic Hemorrhage //Intracerebral Hemorrhage - Repeat CT of the head showed improving bleed - Neurosurgery follow-up appreciated; stable for dc to SNF per neurosurgery. - Continue rehabilitation efforts with PT, OT, speech - On Seroquel to control agitated delirium. Roxicodone as needed for pain //Anemia likely due to chronic disease. H/H fairly stable. will monitor periodically. //Healthcare associated pneumonia treated. //UTI: treated. //Respiratory failure s/p trach trach has been removed. will monitor. pulmonary f/u appreciated. //diabetes mellitus - continue Levemir 15 units SQ q12h - Continue sliding scale insulin with Accu-Cheks. - hemoglobin A1c 9.1. //Hypertension - Intermittent hypertension now well controlled - Continue clonidine, amlodipine and propranolol - Continue hydralazine. //Nutrition status: - Status post PEG tube - -on diet now per ST. -calorie count in process- will consider removing the PEG- pending the result of calorie count. //Acute kidney injury, most likely has CKD per nephrology: Renal function stabilized. - monitor renal function periodically. //fever = Urine culture with pseudomonas. Continue Zosyn. The following. Appreciate assistance. //pain to the right leg. DVT with no evidence of DVT- continue pain control. //diplopia //vertical gaze palsy - has been seen by ophthalmology. Will need follow-up or vertical gaze palsy with Dr. Holloway as outpatient in 1 month. //Physical deconditioning/right sided hemiparesis - OOB to stretcher chair daily - PT/OT following AND SPEECH PROPH: - SCD's. Pepcid for GI prophylaxis Discharge Planning Await case management ability to find SNF VS INPATIENT REHAB FOR AGGRESSIVE PT AND OT AND Lucius Felipe MD Nov 13, 2017 16:18
[2017-11-13] MEDS: ATORVASTATIN 40 MG TAB DOBHOFF SCH (21:28)
[2017-11-14] VITALS: BP 148/73; PULSE 81; RESP 18; TEMP 99.3; O2SAT 96
[2017-11-14 04:00] VITALS: BP 153/77; PULSE 76; RESP 18; TEMP 99.4; O2SAT 94
[2017-11-14] MEDS: hydrALAZINE HCL 100 MG TAB G-TUBE SCH ×3 (05:23→21:15)
[2017-11-14] MEDS: cloNIDine HCL 0.3 MG TAB G-TUBE SCH ×3 (05:23→21:15)
[2017-11-14] MEDS: PROPRANOLOL HCL 40 MG TAB G-TUBE SCH ×3 (05:23→17:26)
[2017-11-14] MEDS: QUEtiapine FUMARATE 25 MG TAB G-TUBE SCH ×3 (05:23→21:14)
[2017-11-14] MEDS: INSULIN ASPART SUPPLEMENTAL SCALE SQ SCH ×4 (08:00→21:00)
[2017-11-14 08:08] VITALS: BP 143/86; PULSE 75; RESP 20; TEMP 98.7; O2SAT 97
[2017-11-14] MEDS: FREE WATER G-TUBE SCH ×2 (08:24→21:00)
[2017-11-14] MEDS: CHLORHEXIDINE GLUCONATE 0.12% 15 ML CUP SWISH-SPIT SCH ×3 (08:25→17:01)
[2017-11-14] MEDS: POLYETHYLENE GLYCOL 17 GM PKG G-TUBE SCH ×2 (08:29→21:00)
[2017-11-14] MEDS: LEVOFLOXACIN 750 MG TAB PO SCH (08:29)
[2017-11-14] MEDS: DOCUSATE SODIUM 50 MG/SENNA 8.6 MG TAB G-TUBE SCH ×2 (08:29→21:00)
[2017-11-14] MEDS: FAMOTIDINE 20 MG TAB NG SCH ×2 (08:29→21:15)
[2017-11-14] MEDS: GABAPENTIN 100 MG CAP PO SCH ×3 (08:29→17:26)
[2017-11-14] MEDS: FLUTICASONE PROPIONATE 50 MCG/ACT 16 GM NASAL SPRAY EACH NARE SCH (08:29)
[2017-11-14] MEDS: INSULIN DETEMIR 100 UNITS/ML VIAL SQ SCH ×2 (08:30→21:15)
--- NOTE | 2017-11-14 09:24 | HHI.PR ---
Subjective Remarks Patient says he is feeling all right. Denies any chest pain or shortness breath. Denies any nausea or vomiting. No bowel movements recorded in several days, however he denies constipation. Objective Vital Signs Date Time Temp Pulse Resp B/P (MAP) Pulse Ox O2 Delivery O2 Flow Rate FiO2 11/14/17 08:08 98.7 75 20 143/86 (105) 97 11/14/17 04:00 99.4 76 18 153/77 (102) 94 11/14/17 00:00 99.3 81 18 148/73 (98) 96 11/13/17 20:15 Room Air 11/13/17 20:00 98.6 74 18 149/91 (110) 96 11/13/17 16:07 98.4 74 21 143/80 (101) 99 11/13/17 12:07 98.6 76 20 132/78 (96) 97 I/O 11/13/17 11/13/17 11/13/17 11/14/17 11/14/17 11/14/17 07:00 15:00 23:00 07:00 15:00 23:00 Intake Total 360 ml 600 ml Output Total 750 ml 625 ml 1050 ml Balance -390 ml -25 ml -1050 ml Intake Oral 360 ml 600 ml Output Urine Total 750 ml 625 ml 1050 ml # Bowel Movements 0 Result Diagram: 11/13/17 0756 Objective Remarks GENERAL: patient sleeping, wakes up for exam. Appears comfortable. -speech clear with some word finding difficulty. Again, no change. SKIN: Warm and dry. HEAD: Normocephalic. EYES: No scleral icterus. No injection or drainage. NECK: Supple, trachea midline. No JVD. CARDIOVASCULAR: Regular rate and rhythm without murmurs, gallops, or rubs. RESPIRATORY: Breath sounds equal bilaterally. No accessory muscle use. GASTROINTESTINAL: Abdomen soft, non-tender, nondistended. PEG tube in place without surrounding erythema or leakage. MUSCULOSKELETAL: No cyanosis, or edema. flaccid paralysis on the right. BACK: Nontender without obvious deformity. No CVA tenderness. A/P Assessment and Plan 11/14. Patient seen and examined. Continuing Levaquin for UTI until 11/17. No changes in management. To be discussed with nursing and case management today on rounds // Acute encephalopathy - improving. //Left Thalamic Hemorrhage //Intracerebral Hemorrhage - Repeat CT of the head showed improving bleed - Neurosurgery follow-up appreciated; stable for dc to SNF per neurosurgery. - Continue rehabilitation efforts with PT, OT, speech - On Seroquel to control agitated delirium. Roxicodone as needed for pain //Anemia likely due to chronic disease. H/H fairly stable. will monitor periodically. //Healthcare associated pneumonia treated. //UTI: treated. //Respiratory failure s/p trach trach has been removed. will monitor. pulmonary f/u appreciated. //diabetes mellitus - continue Levemir 15 units SQ q12h - Continue sliding scale insulin with Accu-Cheks. - hemoglobin A1c 9.1. //Hypertension - Intermittent hypertension now well controlled - Continue clonidine, amlodipine and propranolol - Continue hydralazine. //Nutrition status: - Status post PEG tube - -on diet now per ST. -calorie count in process- will consider removing the PEG- pending the result of calorie count. //Acute kidney injury, most likely has CKD per nephrology: Renal function stabilized. - monitor renal function periodically. //fever = Urine culture with pseudomonas. Continue Zosyn. The following. Appreciate assistance. //pain to the right leg. DVT with no evidence of DVT- continue pain control. //diplopia //vertical gaze palsy - has been seen by ophthalmology. Will need follow-up or vertical gaze palsy with Dr. Holloway as outpatient in 1 month. //Physical deconditioning/right sided hemiparesis - OOB to stretcher chair daily - PT/OT following AND SPEECH PROPH: - SCD's. Pepcid for GI prophylaxis Discharge Planning Await case management ability to find SNF VS INPATIENT REHAB FOR AGGRESSIVE PT AND OT AND Lucius Felipe MD Nov 14, 2017 09:24
[2017-11-14 12:09] VITALS: BP 155/92; PULSE 77; RESP 21; TEMP 98.8; O2SAT 95
[2017-11-14 16:07] VITALS: BP 139/88; PULSE 77; RESP 20; TEMP 98.6; O2SAT 95
--- NOTE | 2017-11-14 19:31 | HHI.PR ---
Subjective Remarks ALERT NO DISTRESS Objective Vital Signs Date Time Temp Pulse Resp B/P (MAP) Pulse Ox O2 Delivery O2 Flow Rate FiO2 11/14/17 16:07 98.6 77 20 139/88 (105) 95 11/14/17 12:09 98.8 77 21 155/92 (113) 95 11/14/17 08:08 98.7 75 20 143/86 (105) 97 11/14/17 08:00 Room Air 11/14/17 04:00 99.4 76 18 153/77 (102) 94 11/14/17 00:00 99.3 81 18 148/73 (98) 96 11/13/17 20:15 Room Air 11/13/17 20:00 98.6 74 18 149/91 (110) 96 I/O 11/13/17 11/13/17 11/13/17 11/14/17 11/14/17 11/14/17 07:00 15:00 23:00 07:00 15:00 23:00 Intake Total 360 ml 600 ml 360 ml Output Total 750 ml 625 ml 1050 ml 800 ml Balance -390 ml -25 ml -1050 ml -440 ml Intake Oral 360 ml 600 ml 360 ml Output Urine Total 750 ml 625 ml 1050 ml 800 ml # Bowel Movements 0 0 Result Diagram: 11/13/17 0756 Objective Remarks GENERAL: SKIN: Warm and dry. HEAD: Atraumatic. Normocephalic. EYES: Pupils equal and round. No scleral icterus. No injection or drainage. ENT: No nasal bleeding or discharge. Mucous membranes pink and moist. NECK: Trachea midline. No JVD. CARDIOVASCULAR: Regular rate and rhythm. RESPIRATORY: No accessory muscle use. Clear to auscultation. Breath sounds equal bilaterally. GASTROINTESTINAL: Abdomen soft, non-tender, nondistended. Hepatic and splenic margins not palpable. MUSCULOSKELETAL: Extremities without clubbing, cyanosis, or edema. No obvious deformities. NEUROLOGICAL: Awake and alert. No obvious cranial nerve deficits. Motor grossly within normal limits. Five out of 5 muscle strength in the arms and legs. Normal speech. PSYCHIATRIC: Appropriate mood and affect; insight and judgment normal. Assessment and Plan Assessment and Plan RESPIRATORY FAILURE S/P CVA OBESITY HTN PLAN O2 NEEDED PULM TOILET INCREASE ACTIVITY Wang Piña MD Nov 14, 2017 19:31
[2017-11-14 19:55] VITALS: BP 167/88; PULSE 75; RESP 14; TEMP 99.2; O2SAT 96
[2017-11-14] MEDS: ATORVASTATIN 40 MG TAB DOBHOFF SCH (21:14)
[2017-11-14] MEDS: SODIUM CHLORIDE 0.9% FLUSH 10 ML FLUSH IVF PRN (21:16)
[2017-11-15] VITALS (9 sets, daily range): BP systolic 147–156; BP diastolic 80–95; PULSE 71–80; RESP 14–20; TEMP 97.9–98.9; O2SAT 94–99
[2017-11-15] MEDS: PROPRANOLOL HCL 40 MG TAB G-TUBE SCH ×4 (00:16→18:37)
[2017-11-15] MEDS: cloNIDine HCL 0.3 MG TAB G-TUBE SCH ×3 (05:00→20:24)
[2017-11-15] MEDS: hydrALAZINE HCL 100 MG TAB G-TUBE SCH ×3 (05:00→20:24)
[2017-11-15] MEDS: QUEtiapine FUMARATE 25 MG TAB G-TUBE SCH ×3 (05:00→20:27)
[2017-11-15] MEDS: INSULIN ASPART SUPPLEMENTAL SCALE SQ SCH ×4 (08:00→20:14)
[2017-11-15] MEDS: POLYETHYLENE GLYCOL 17 GM PKG G-TUBE SCH ×2 (08:48→20:28)
[2017-11-15] MEDS: FLUTICASONE PROPIONATE 50 MCG/ACT 16 GM NASAL SPRAY EACH NARE SCH (09:00)
[2017-11-15] MEDS: CHLORHEXIDINE GLUCONATE 0.12% 15 ML CUP SWISH-SPIT SCH ×3 (09:00→18:00)
[2017-11-15] MEDS: FREE WATER G-TUBE SCH ×2 (09:00→20:14)
[2017-11-15 09:17] LABS: CREATININE 0.83 MG/DL (0.60-1.30)
[2017-11-15] MEDS: FAMOTIDINE 20 MG TAB NG SCH ×2 (09:19→20:25)
[2017-11-15] MEDS: GABAPENTIN 100 MG CAP PO SCH ×3 (09:20→18:36)
[2017-11-15] MEDS: DOCUSATE SODIUM 50 MG/SENNA 8.6 MG TAB G-TUBE SCH ×2 (09:20→20:24)
[2017-11-15] MEDS: INSULIN DETEMIR 100 UNITS/ML VIAL SQ SCH ×2 (09:25→20:28)
--- NOTE | 2017-11-15 14:37 | HHI.PR ---
Subjective Remarks Rapid response called on patient. As per RN report patient became unresponsive for a few minutes. He is waking up however seems to be confused. denies cp, sob states "I feel faint and very tired" Objective Vitals Vital Signs Date Time Temp Pulse Resp B/P (MAP) Pulse Ox O2 Delivery O2 Flow Rate FiO2 11/15/17 12:00 98.0 78 20 149/80 (103) 96 11/15/17 08:00 98.4 71 20 156/89 (111) 94 11/15/17 07:00 Room Air 11/15/17 05:04 98.9 73 17 152/85 (107) 95 11/15/17 00:13 97.9 76 14 152/95 (114) 97 11/14/17 19:55 99.2 75 14 167/88 (114) 96 11/14/17 19:45 Room Air 11/14/17 16:07 98.6 77 20 139/88 (105) 95 I/O 11/14/17 11/14/17 11/14/17 11/15/17 11/15/17 11/15/17 07:00 15:00 23:00 07:00 15:00 23:00 Intake Total 360 ml Output Total 1050 ml 800 ml Balance -1050 ml -440 ml Intake Oral 360 ml Output Urine Total 1050 ml 800 ml # Bowel Movements 0 Result Diagram: 11/15/17 0820 Imaging Last Impressions Chest X-Ray 11/07/17 0000 Signed Impressions: Service Date/Time: Tuesday, November 07, 2017 21:22 - CONCLUSION: Mild infiltrate on the left. Ignacio Lares MD Lower Extremity Ultrasound 11/02/17 0000 Signed Impressions: Service Date/Time: Thursday, November 02, 2017 13:14 - CONCLUSION: 1. No sonographic evidence for right lower extremity DVT. Darrell Robles MD Head CT 10/27/17 1001 Signed Impressions: Service Date/Time: Friday, October 27, 2017 10:55 - CONCLUSION: 1. Small area of encephalomalacia in the left basal ganglia corresponding to the area of hemorrhage seen on the previous exam. No new areas of hemorrhage are seen. No significant mass effect is identified. Ant Reece MD Maxillofacial CT 09/16/17 0000 Signed Impressions: Service Date/Time: September 01:03 - CONCLUSION: 1. Evidence of acute pansinusitis. 2. Opacification of multiple bilateral mastoid air cells most characteristic of mastoiditis. 3. Mildly prominent cervical chain nodes which may be reactive. Angelo Conn MD Upper Extremity Ultrasound 09/15/17 0000 Signed Impressions: Service Date/Time: Friday, September 15, 2017 17:14 - CONCLUSION: Occlusive thrombus within the left cephalic vein and nonocclusive thrombus within the right cephalic vein. Ric Jack MD Chest CT 09/13/17 0000 Signed Impressions: Service Date/Time: Wednesday, September 13, 2017 09:28 - CONCLUSION: 1. Bibasilar and left lingular dependent atelectatic changes. Lungs are otherwise clear. 2. Tracheostomy tube with the tip probably positioned above the connie. 3. Compensated cardiomegaly. Reyes Guzman MD Abdomen/Pelvis CT 09/13/17 0000 Signed Impressions: Service Date/Time: Wednesday, September 13, 2017 09:28 - CONCLUSION: 1. There is some stranding in the retroperitoneal perivascular tissues around the distal aorta extending into the bifurcation with a regional borderline lymph nodes. Findings are characteristic of a nonspecific inflammatory process. Findings could represent early retroperitoneal fibrosis.. 2. Urinary bladder is decompressed with some mural thickening in pericystic inflammatory changes possibly representing a chronic cystitis. Nondependent air could be associated with a recent catheterization/instrumentation. 3. Small umbilical and right inguinal hernias only contain fat. 4. Bilateral dependent basilar and left lingular atelectatic changes. Heart size is borderline prominent. 5. Otherwise , bowel is intact without obstruction to explain abdominal distention Reyes Guzman MD Abdomen X-Ray 09/10/17 0600 Signed Impressions: Service Date/Time: Sunday, September 10, 2017 03:56 - CONCLUSION: No significant abnormality is identified. There is mild distention of the colon but there are no findings to suggest bowel obstruction or significant ileus. Ignacio Underwood MD Liver Ultrasound 09/07/17 0000 Signed Impressions: Service Date/Time: Thursday, September 07, 2017 12:37 - CONCLUSION: 1. Unremarkable sonographic appearance of the liver. No evidence for hepatic volume loss or intrahepatic ductal dilatation. 2. No sonographic evidence for cholelithiasis or acute cholecystitis. 3. Mild increased right renal echogenicity may reflect medical renal disease. 4. Small bilateral pleural effusions. 5. Pancreas and inferior pole of the right kidney are obscured by bowel gas and therefore not evaluated. aDrrell Robles MD Renal Ultrasound 08/31/17 0000 Signed Impressions: Service Date/Time: Thursday, August 31, 2017 17:42 - CONCLUSION: 1. No evidence of hydronephrosis on either side. 2. Solitary linear echogenic focus in the upper pole parenchyma of the right kidney has similar features to prior examination in January 2017 and possibly represents a calcification. David Snell MD Neck CTA [id number] Signed Impressions: Service Date/Time: Tuesday, August 29, 2017 00:13 - CONCLUSION: Negative carotid CTA. David Snell MD Head CTA [id number] Signed Impressions: Service Date/Time: Tuesday, August 29, 2017 00:13 - CONCLUSION: 1. No evidence of vessel truncation or aneurysm. 2. No abnormal vessels in the region of the large left thalamic hemorrhage. David Snell MD Objective Remarks Patient is confused, awakening, NAD Clear lungs BL S1S2 RRR, no MRG Abdomen soft, nt, nd no edema in lower extremities. Procedures Tracheostomy and PEG placement TRACHEOSTOMY REMOVAL Medications and IVs Current Medications Medications (Trade) Dose Ordered Sig/Hermann Route Start Time Stop Time Status Last Admin (NS Flush) 2 ml UNSCH PRN IVF 08/29/17 00:00 11/14/17 21:16 (Trandate Inj) 10 mg Q20M PRN IV PUSH 08/29/17 00:45 09/19/17 02:16 (Zofran Inj) 4 mg Q6H PRN IV PUSH 08/29/17 00:45 09/11/17 14:18 (Apresoline Inj) 10 mg Q30M PRN IV PUSH 08/30/17 08:15 09/19/17 09:08 (Flonase Tae Spr) 2 spray DAILY EACH NARE 09/05/17 17:00 11/15/17 09:00 (Gelfoam 12 Mm/7 Mm Top) 1 foam Q2HR PRN TOPICAL 09/07/17 19:45 09/08/17 08:00 (Heparin Inj) 5,000 units Q12HR SQ 09/11/17 21:00 Future Hold 09/28/17 08:20 (Lidocaine Pf 2% Neb) 1 ml Q6HR NEB PRN NEB 09/16/17 11:30 (Pepcid) 20 mg BID NG 09/24/17 09:30 11/15/17 09:19 (Norvasc) 10 mg DAILY G-TUBE 09/26/17 09:00 11/15/17 09:19 (Lipitor) 40 mg HS DOBHOFF 09/25/17 21:00 11/14/17 21:14 (Catapres) 0.3 mg Q8HR G-TUBE 09/25/17 14:00 11/15/17 13:10 (Melina-Colace) 1 tab BID G-TUBE 09/25/17 21:00 11/15/17 09:20 (Apresoline) 100 mg Q8HR G-TUBE 09/25/17 14:00 11/15/17 13:10 (Miralax) 17 gm BID G-TUBE 09/25/17 21:00 11/12/17 10:23 (Inderal) 40 mg Q6HR G-TUBE 09/25/17 12:00 11/15/17 13:10 (SEROquel) 50 mg Q8HR G-TUBE 09/25/17 14:00 11/15/17 13:10 (Albuterol Neb) 2.5 mg Q2HR NEB PRN NEB 09/25/17 13:30 11/03/17 06:06 (Peridex 0.12% Liq) 15 ml TID SWISH-SPIT 10/11/17 18:00 11/09/17 17:39 (Neurontin) 100 mg TID PO 10/26/17 13:00 11/15/17 13:10 (Levemir Inj) 15 units Q12H SQ 11/01/17 22:00 11/15/17 09:25 (Morphine Inj) 2 mg Q3H PRN IM 11/01/17 13:00 11/01/17 13:25 (Roxicodone) 10 mg Q4H PRN PO 11/02/17 14:00 11/08/17 13:51 (Free Water) 100 ml BID G-TUBE 11/07/17 21:00 11/11/17 21:00 (NovoLOG SUPPLEMENTAL SCALE) 1 ACHS SLIDING SCALE SQ 11/07/17 12:00 11/13/17 09:25 (D50w (Vial) Inj) 50 ml UNSCH PRN IV PUSH 11/07/17 10:00 (Glucagon Inj) 1 mg UNSCH PRN OTHER 11/07/17 10:00 (Tylenol 650 Mg/ 20 ml Liq) 658 mg Q6H PRN G-TUBE 11/08/17 00:15 11/08/17 22:13 Urinary Catheter: No Vascular Central Line Catheter: No A/P Problem List: (1) Intracranial hemorrhage ICD Code: I62.9 - Nontraumatic intracranial hemorrhage, unspecified Status: Acute (2) Syncope ICD Code: R55 - Syncope and collapse Status: Acute (3) Seizure disorder ICD Code: G40.909 - Epilepsy, unspecified, not intractable, without status epilepticus Status: Acute (4) Encephalopathy acute ICD Code: G93.40 - Encephalopathy, unspecified Status: Acute Assessment and Plan Acute encephalopathy - improving. Left Thalamic Hemorrhage Intracerebral Hemorrhage Syncope/Suspected new onset seizure - Repeat CT of the head showed improving bleed - Neurosurgery follow-up appreciated; stable for dc to SNF per neurosurgery. - Continue rehabilitation efforts with PT, OT, speech - On Seroquel to control agitated delirium. Roxicodone as needed for pain 2 patient had a syncopal episode with post ictal state. I will order stat head CT, EEG, I will start the patient IV Keppra and consult neurology. Place on cardiac telemetry. Anemia likely due to chronic disease. H/H fairly stable. will monitor periodically. HCAP treated. UTI: treated. Respiratory failure s/p trach trach has been removed. will monitor. pulmonary f/u appreciated. Diabetes mellitus - continue Levemir 15 units SQ q12h - Continue sliding scale insulin with Accu-Cheks. - hemoglobin A1c 9.1. 2 Blood sugars stable. Hypertension - Intermittent hypertension now well controlled - Continue clonidine, amlodipine and propranolol - Continue hydralazine. 11/15 Patient got several bp medications together at 13:10 hrs, Will check orthostatic BP and decrease the dose of some of these medications. Nutrition status: - Status post PEG tube - -on diet now per ST. -calorie count in process- will consider removing the PEG- pending the result of calorie count. Acute kidney injury, most likely has CKD per nephrology: Renal function stabilized. - monitor renal function periodically. Pain to the right leg. DVT with no evidence of DVT- continue pain control. Resolved diplopia vertical gaze palsy - Ophthalmology consulted. Will need follow-up or vertical gaze palsy with Dr. Holloway as outpatient in 1 month. Physical deconditioning/right sided hemiparesis - OOB to stretcher chair daily - PT/OT following AND SPEECH PROPH: - SCD's. Pepcid for GI prophylaxis 35 minutes of critical care time was spent on patient care. Discharge Planning Continue to monitor on the medical floor. Mookie Silverman MD Nov 15, 2017 14:37
[2017-11-15] MEDS ORDERED: levETIRAcetam INJ 100 ML IV ONE (15:00)
--- NOTE | 2017-11-15 16:17 | RADRPT ---
EXAM DATE/TIME: 11/15/2017 15:40 [facility] COMPARISON: CT BRAIN W/O CONTRAST, September 13, 2017, 9:17. CT BRAIN W/O CONTRAST, October 27, 2017, 10:55. INDICATIONS : Altered mental status. RADIATION DOSE: 47.53 CTDIvol (mGy) MEDICAL HISTORY : Cerebrovascular disease. Hypertension. SURGICAL HISTORY : None. ENCOUNTER: Initial ACUITY: 1 day PAIN SCALE: 0/10 LOCATION: cranial TECHNIQUE: Multiple contiguous axial images were obtained of the head. Using automated exposure control and adj ustment of the mA and/or kV according to patient size, radiation dose was kept as low as reasonably a chievable to obtain optimal diagnostic quality images. DICOM format image data is available electro nically for review and comparison. FINDINGS: CEREBRUM: There is a tiny 7 mm area of hypodensity within the lateral aspect of the left thalamus which may ret urn to small recurrent thalamic bleed. Surrounding encephalomalacia is noted. No midline shift is not ed. No extra-axial bleed is noted. Ventricles, sulci and cisterns are stable. POSTERIOR FOSSA: The cerebellum and brainstem are intact. The 4th ventricle is midline. The cerebellopontine angle i s unremarkable. EXTRACRANIAL: The visualized portion of the orbits is intact. SKULL: The calvaria is intact. No evidence of skull fracture. CONCLUSION: 1. Small 7 mm area of hyperdensity within left lateral thalamus raising possibility of recurrent thal amic bleed. Clinical correlation is recommended. 2. Encephalomalacia within left basal ganglia which is stable compared to previous examination. Ric Jack MD on November 15, 2017 at 16:01 Board Certified Radiologist. This report was verified electronically.
[2017-11-15] MEDS: ATORVASTATIN 40 MG TAB DOBHOFF SCH (20:25)
[2017-11-15] MEDS: levETIRAcetam INJ 500 MG in SODIUM CHLORIDE 0.9% INJ 100 ML IV SCH (20:37)
[2017-11-16] VITALS (15 sets, daily range): BP systolic 120–154; BP diastolic 62–90; PULSE 72–88; RESP 12–24; TEMP 98.2–98.9; O2SAT 95–99
[2017-11-16] MEDS: PROPRANOLOL HCL 40 MG TAB G-TUBE SCH ×4 (01:04→18:00)
[2017-11-16] MEDS: cloNIDine HCL 0.3 MG TAB G-TUBE SCH ×3 (06:01→21:06)
[2017-11-16] MEDS: QUEtiapine FUMARATE 25 MG TAB G-TUBE SCH ×3 (06:01→21:07)
[2017-11-16] MEDS: hydrALAZINE HCL 100 MG TAB G-TUBE SCH ×3 (06:01→21:07)
[2017-11-16] MEDS: INSULIN ASPART SUPPLEMENTAL SCALE SQ SCH ×4 (08:00→21:00)
--- NOTE | 2017-11-16 08:28 | HHI.PR ---
Subjective Remarks ALERT NO DISTRESS now in [facility], FOR POSSIBLE RECURRENT BLEED Objective Vital Signs Date Time Temp Pulse Resp B/P (MAP) Pulse Ox O2 Delivery O2 Flow Rate FiO2 11/16/17 06:00 76 11/16/17 04:04 97 11/16/17 04:00 98.3 75 22 120/72 (88) 99 11/16/17 04:00 75 11/16/17 02:00 72 11/16/17 00:13 97 11/16/17 00:00 98.6 77 19 129/79 (96) 97 11/16/17 00:00 77 11/15/17 20:19 96 11/15/17 20:09 80 11/15/17 20:00 98.6 79 16 147/87 (107) 99 11/15/17 19:30 Room Air 11/15/17 17:02 77 11/15/17 16:00 98.2 76 18 148/83 (104) 95 11/15/17 12:00 98.0 78 20 149/80 (103) 96 I/O 11/15/17 11/15/17 11/15/17 11/16/17 11/16/17 11/16/17 07:00 15:00 23:00 07:00 15:00 23:00 Intake Total 240 ml 480 ml Output Total 275 ml Balance -35 ml 480 ml Intake Oral 240 ml 480 ml Output Urine Total 275 ml # Voids 1 Result Diagram: 11/15/17 0820 Objective Remarks GENERAL: SKIN: Warm and dry. HEAD: Atraumatic. Normocephalic. EYES: Pupils equal and round. No scleral icterus. No injection or drainage. ENT: No nasal bleeding or discharge. Mucous membranes pink and moist. NECK: Trachea midline. No JVD. CARDIOVASCULAR: Regular rate and rhythm. RESPIRATORY: No accessory muscle use. Clear to auscultation. Breath sounds equal bilaterally. GASTROINTESTINAL: Abdomen soft, non-tender, nondistended. Hepatic and splenic margins not palpable. MUSCULOSKELETAL: Extremities without clubbing, cyanosis, or edema. No obvious deformities. NEUROLOGICAL: Awake and alert. No obvious cranial nerve deficits. Motor grossly within normal limits. Five out of 5 muscle strength in the arms and legs. Normal speech. PSYCHIATRIC: Appropriate mood and affect; insight and judgment normal. Assessment and Plan Assessment and Plan RESPIRATORY FAILURE S/P CVA OBESITY HTN PLAN O2 NEEDED PULM TOILET INCREASE ACTIVITY Wang Piña MD Nov 16, 2017 08:28
[2017-11-16] MEDS: DOCUSATE SODIUM 50 MG/SENNA 8.6 MG TAB G-TUBE SCH ×2 (08:36→21:06)
[2017-11-16] MEDS: levETIRAcetam INJ 500 MG in SODIUM CHLORIDE 0.9% INJ 100 ML IV SCH ×2 (08:36→21:07)
[2017-11-16 08:37] LABS: AUTOMATED NEUTROPHIL # 6.6 TH/MM3 (1.8-7.7); BASOPHIL # 0.1 TH/MM3 (0-0.2); BASOPHIL % 0.8 % (0.0-2.0); EOSINOPHIL # 0.2 TH/MM3 (0-0.4); EOSINOPHIL % 2.3 % (0.0-4.0); HEMATOCRIT 26.8 % (39.0-51.0); HEMOGLOBIN 8.6 GM/DL (13.0-17.0); LYMPH % 13.8 % (9.0-44.0); LYMPHOCYTE # 1.2 TH/MM3 (1.0-4.8); MEAN CELL VOLUME 77.1 FL (80.0-100.0); MEAN CORPUSCULAR HEMOGLOBIN 24.9 PG (27.0-34.0); MEAN CORPUSCULAR HGB CONC 32.3 % (32.0-36.0); MEAN PLATELET VOLUME 7.6 FL (7.0-11.0); MONO % 5.7 % (0.0-8.0); MONOCYTE # 0.5 TH/MM3 (0-0.9); NEUT % 77.4 % (16.0-70.0); PLATELET COUNT 538 TH/MM3 (150-450); RED BLOOD COUNT 3.47 MIL/MM3 (4.50-5.90); RED CELL DISTRIBUTION WIDTH 16.5 % (11.6-17.2); WHITE BLOOD COUNT 8.6 TH/MM3 (4.0-11.0)
[2017-11-16] MEDS: FAMOTIDINE 20 MG TAB NG SCH ×2 (08:37→21:05)
[2017-11-16] MEDS: GABAPENTIN 100 MG CAP PO SCH ×3 (08:37→18:58)
[2017-11-16] MEDS: CHLORHEXIDINE GLUCONATE 0.12% 15 ML CUP SWISH-SPIT SCH ×3 (08:37→18:58)
[2017-11-16] MEDS ORDERED: amLODIPine BESYLATE 5 MG TAB G-TUBE SCH (09:00)
[2017-11-16] MEDS: FREE WATER G-TUBE SCH ×2 (09:00→20:37)
[2017-11-16] MEDS: FLUTICASONE PROPIONATE 50 MCG/ACT 16 GM NASAL SPRAY EACH NARE SCH (09:00)
[2017-11-16] MEDS: POLYETHYLENE GLYCOL 17 GM PKG G-TUBE SCH ×2 (09:00→21:05)
[2017-11-16 09:01] LABS: ALBUMIN 2.7 GM/DL (3.4-5.0); AST (GOT) 13 U/L (15-37); BICARBONATE 30.4 MEQ/L (21.0-32.0); BLOOD UREA NITROGEN 10 MG/DL (7-18); CALCIUM 9.8 MG/DL (8.5-10.1); CHLORIDE 102 MEQ/L (98-107); CREATININE 1.01 MG/DL (0.60-1.30); GLOMERULAR FILTRATION RATE 97 ML/MIN (>89); GLUCOSE,RANDOM 71 MG/DL (74-106); MAGNESIUM 2.1 MG/DL (1.5-2.5); SODIUM (NA) 137 MEQ/L (136-145)
[2017-11-16 09:02] LABS: ALT (GPT) 8 U/L (12-78); PHOSPHORUS 3.7 MG/DL (2.5-4.9)
[2017-11-16 09:04] LABS: ALKALINE PHOSPHATASE 56 U/L (45-117); TOTAL BILIRUBIN ADULT 0.3 MG/DL (0.2-1.0); TOTAL PROTEIN 7.4 GM/DL (6.4-8.2)
[2017-11-16] MEDS: INSULIN DETEMIR 100 UNITS/ML VIAL SQ SCH ×2 (10:00→21:07)
--- NOTE | 2017-11-16 10:02 | HHI.NSPN ---
(James Ontiveros) History Chief Complaint: Unable to move right leg. (James Ontiveros) Interval History 11/15: The patient became unresponsive for several minutes and a rapid response was called. When he woke up he was confused and imaging demonstrated a questionable new left lateral thalamic haemorrhage. He told the Hospitalist that "I fee faint and very tired." He was subsequently transferred to [facility] for further monitoring and care. 11/16: The patient was last seen by Neurosurgery on after his last CT brain on was stable without any evidence of a new haemorrhage. He was moving the left upper and lower extremities with equal strength which were stronger than the right upper. The right lower had trace muscle contractions at that time. His speech was clear but he did have some dysarthria. The patient states that he is doing good and wants to know how long he will be in [facility]. He does endorse weakness to the right lower extremity. He denies any headache or dizziness. He continues to have good muscle strength to the left side with weakness to the right upper. He is not able to move the right lower. Physical Therapy states that yesterday prior to his becoming unresponsive he was able to pull his right lower extremity inward but today he was not able to. Physical Therapy reports that the patient has been complaining of pain to the right lower extremity. (James Ontiveros) Exam Results 11/14/17 11/14/17 11/15/17 11/15/17 11/16/17 11/16/17 06:00 18:00 06:00 18:00 06:00 18:00 Intake Total 600 ml 360 ml 240 ml 480 ml Output Total 1675 ml 800 ml 275 ml Balance -1075 ml -440 ml -35 ml 480 ml Intake Oral 600 ml 360 ml 240 ml 480 ml Output Urine Total 1675 ml 800 ml 275 ml # Voids 1 # Bowel Movements 0 0 Vital Signs Date Time Temp Pulse Resp B/P (MAP) Pulse Ox O2 Delivery O2 Flow Rate FiO2 11/16/17 09:02 95 21 11/16/17 06:00 76 11/16/17 04:04 97 11/16/17 04:00 98.3 75 22 120/72 (88) 99 11/16/17 04:00 75 11/16/17 02:00 72 11/16/17 00:13 97 11/16/17 00:00 98.6 77 19 129/79 (96) 97 11/16/17 00:00 77 11/15/17 20:19 96 11/15/17 20:09 80 11/15/17 20:00 98.6 79 16 147/87 (107) 99 11/15/17 19:30 Room Air 11/15/17 17:02 77 11/15/17 16:00 98.2 76 18 148/83 (104) 95 11/15/17 12:00 98.0 78 20 149/80 (103) 96 11/15/17 08:00 98.4 71 20 156/89 (111) 94 11/15/17 07:00 Room Air 11/15/17 05:04 98.9 73 17 152/85 (107) 95 11/15/17 00:13 97.9 76 14 152/95 (114) 97 11/14/17 19:55 99.2 75 14 167/88 (114) 96 11/14/17 19:45 Room Air 11/14/17 16:07 98.6 77 20 139/88 (105) 95 11/14/17 12:09 98.8 77 21 155/92 (113) 95 11/14/17 08:08 98.7 75 20 143/86 (105) 97 11/14/17 08:00 Room Air 11/14/17 04:00 99.4 76 18 153/77 (102) 94 11/14/17 00:00 99.3 81 18 148/73 (98) 96 11/13/17 20:15 Room Air 11/13/17 20:00 98.6 74 18 149/91 (110) 96 11/13/17 16:07 98.4 74 21 143/80 (101) 99 11/13/17 12:07 98.6 76 20 132/78 (96) 97 (James Ontiveros) Physical Examination GENERAL: Asleep but awakens to voice, awake & alert after that. Readily interacts. Affect somewhat flat. No evident distress. HEENT: Normocephalic, atraumatic. Tracking with his eyes, gaze appears to be disconjugate. MMM & pink, tongue midline to protrusion. MUSCULOSKELETAL: No evident clubbing or deformity. Moves left side spontaneously & to command. Some movement of RUE to command. No movement of RLE. Right knee TTP. NEUROLOGICAL: AA&O x3. Speech essentially clear & appropriate but w/some expressive aphasia & dysarthria. Pupils appear 2 to 3 mm but patient keeps closing eyes to examination. Tracking with his eyes, gaze appears to be disconjugate. No facial numbness. Tongue midline to protrusion. Weak shoulder shrug on right. Follows simple commands. Sensation is intact to light touch to all extremities. Muscle strength to the left side extremities 4+ to 5/5 to all major flexion & extension muscle groups except that the hand intrinsics & extrinsics are 3/5. Muscle strength to the right upper extremity is 2/5 to the tricep, 3/5 to the bicep, 4/5 to the tricep, hand intrinsics & extrinsics are 2/5 and 0/5 to the right lower extremity. (James Ontiveros) Lab, Micro, Other Results Recent Impressions Head CT 11/15/17 0000 Signed Impressions: Service Date/Time: Wednesday, November 15, 2017 15:40 - CONCLUSION: 1. Small 7 mm area of hyperdensity within left lateral thalamus raising possibility of recurrent thalamic bleed. Clinical correlation is recommended. 2. Encephalomalacia within left basal ganglia which is stable compared to previous examination. Ric Jack MD Laboratory Tests Test 11/15/17 08:20 11/16/17 08:12 Creatinine 0.83 MG/DL 1.01 MG/DL Estimat Glomerular Filtration Rate 122 ML/MIN 97 ML/MIN White Blood Count 8.6 TH/MM3 Red Blood Count 3.47 MIL/MM3 Hemoglobin 8.6 GM/DL Hematocrit 26.8 % Mean Corpuscular Volume 77.1 FL Mean Corpuscular Hemoglobin 24.9 PG Mean Corpuscular Hemoglobin Concent 32.3 % Red Cell Distribution Width 16.5 % Platelet Count 538 TH/MM3 Mean Platelet Volume 7.6 FL Neutrophils (%) (Auto) 77.4 % Lymphocytes (%) (Auto) 13.8 % Monocytes (%) (Auto) 5.7 % Eosinophils (%) (Auto) 2.3 % Basophils (%) (Auto) 0.8 % Neutrophils # (Auto) 6.6 TH/MM3 Lymphocytes # (Auto) 1.2 TH/MM3 Monocytes # (Auto) 0.5 TH/MM3 Eosinophils # (Auto) 0.2 TH/MM3 Basophils # (Auto) 0.1 TH/MM3 CBC Comment DIFF FINAL Differential Comment Hematology Comments Blood Urea Nitrogen 10 MG/DL Random Glucose 71 MG/DL Total Protein 7.4 GM/DL Albumin 2.7 GM/DL Calcium Level 9.8 MG/DL Phosphorus Level 3.7 MG/DL Magnesium Level 2.1 MG/DL Alkaline Phosphatase 56 U/L Aspartate Amino Transf (AST/SGOT) 13 U/L Alanine Aminotransferase (ALT/SGPT) 8 U/L Total Bilirubin 0.3 MG/DL Sodium Level 137 MEQ/L Potassium Level 3.0 MEQ/L Chloride Level 102 MEQ/L Carbon Dioxide Level 30.4 MEQ/L Anion Gap 5 MEQ/L (James Ontiveros) Medical Decision Making Impression and Plan Impression: 1. Large thalamic intracranial hemorrhage . 2. Hypertension, improved Right lower extremity pain. New onset left lateral thalamic haemorrhage . Neuro exam appears essentially stable to left side, some decrease to RUE, no muscle contraction to RLE as had previously. Plan: Primary management per Hospitalist. Neuro checks. Stat CT brain for any decrease in neuro status. Hold pharmacologic DVT prophylaxis. Mechanical DVT prophylaxis. CT brain today. (James Ontiveros) Attending Statement The exam, history, and the medical decision-making described in the above note were completed with the assistance of the mid-level provider. I reviewed and agree with the findings presented. I attest that I had a [id number] encounter with the patient on the same day, and personally performed and documented my assessment and findings in the medical record. On my examination of 11/16/2017, the patient is awake and relatively alert Mild dysarthria He answers simple questions appropriately Complains of right lower extremity pain since yesterday. He states that it hurt while they were moving him from one room to another. Patient reportedly had an episode of decreased responsiveness yesterday leading to a CT scan of the head. He continues to have right hemiparesis, primarily right upper extremity. 11/15/2017 CT scan head images reviewed by the undersigned and reveal a small area of increased density in the left thalamic region suggestive of small recurrent thalamic hemorrhage. Discussed with patient Check follow-up CT scan (Orville Tinajero MD) James Ontiveros Nov 16, 2017 10:02 Orville Tinajero MD Nov 16, 2017 15:48
[2017-11-16] MEDS: POTASSIUM CHLOR 20 MEQ PREMIX 100 ML IV SCH ×2 (12:50→17:00)
[2017-11-16 14:02] LABS: INTERNATIONAL NORMALIZED RATIO 1.1 RATIO; PROTHROMBIN TIME - PATIENT 10.8 SEC (9.8-11.6)
--- NOTE | 2017-11-16 14:18 | MG ---
cc: CARO CASTANEDA MD, DALIA M.D. Lab No: [id number] Date: 11/16/2017 : 1970 Age: 46 Sex: M Room 1436. Awake, drowsy, asleep study with photic stimulation. Last EEG September 13 with a lot of excessive movement and technical errors. INDICATION FOR PROCEDURE HaliCAT. A 46-year-old male unresponsive, possibly postictal, intraventricular hemorrhage, decreased shift to the right, left thalamic hemorrhage. DESCRIPTION OF RECORD There is overall background slowing, predominately 5-6 Hz. Some minor myogenic artifact. The commercial kitchen service technician documents some leg jerking. There is no epileptiform features during that portion. There is a lot of snoring, attenuation, theta frequency. There is a driving response with photic stimulation. IMPRESSION Background slowing consistent with an encephalopathic process, possible postictal state, but there is no evidence of any epileptiform features in this one recording. Clinical correlation. Noemi Hooker MD DF/MILLY /1:49 PM /1:59 PM
--- NOTE | 2017-11-16 18:06 | RADRPT ---
EXAM DATE/TIME: 11/16/2017 17:36 [facility] COMPARISON: CT BRAIN W/O CONTRAST, November 15, 2017, 15:40. INDICATIONS : Intracerebral hemorrhage RADIATION DOSE: 44.87 CTDIvol (mGy) MEDICAL HISTORY : Cerebrovascular disease. Hypertension. SURGICAL HISTORY : None. ENCOUNTER: Subsequent ACUITY: 2 days PAIN SCALE: 0/10 LOCATION: cranial TECHNIQUE: Multiple contiguous axial images were obtained of the head. Using automated exposure control and adj ustment of the mA and/or kV according to patient size, radiation dose was kept as low as reasonably a chievable to obtain optimal diagnostic quality images. DICOM format image data is available electro nically for review and comparison. FINDINGS: Today's exam is compared to the prior study. The previously noted faint 7 mm area of hyperdensity in the left thalamus appears to be improved on today's examination. The ventricles, cisterns and sulci a re all within normal limits and stable. There is no mass effect or midline shift. No new areas of hem orrhage are demonstrated. There is an old stable infarct in the mid left parietal lobe. The posterior fossa is stable and unremarkable. Calvarium is grossly intact. CONCLUSION: 1. The previously noted faint 7 mm area of hyperdensity in the left thalamus has improved and is almo st completely resolved. 2. 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 3. No other new or significant changes compared to the prior study. 1. Iain Fragoso MD on November 16, 2017 at 18:01 Board Certified Radiologist. This report was verified electronically.
--- NOTE | 2017-11-16 19:06 | HHI.PR ---
Subjective Remarks Patient is awake Denies headache, nausea or vomiting. states has trouble focusing with the left eye. denies cp/sob. No seizures reported. Objective Vitals Vital Signs Date Time Temp Pulse Resp B/P (MAP) Pulse Ox O2 Delivery O2 Flow Rate FiO2 11/16/17 18:00 74 11/16/17 16:00 98.9 80 14 136/81 (99) 97 11/16/17 16:00 88 11/16/17 14:00 80 11/16/17 12:00 98.4 86 24 133/76 (95) 97 11/16/17 12:00 85 11/16/17 10:00 80 11/16/17 09:02 95 21 11/16/17 08:00 80 11/16/17 08:00 98.2 80 22 143/62 (89) 97 11/16/17 07:00 Room Air 11/16/17 06:00 76 11/16/17 04:04 97 11/16/17 04:00 98.3 75 22 120/72 (88) 99 11/16/17 04:00 75 11/16/17 02:00 72 11/16/17 00:13 97 11/16/17 00:00 98.6 77 19 129/79 (96) 97 11/16/17 00:00 77 11/15/17 20:19 96 11/15/17 20:09 80 11/15/17 20:00 98.6 79 16 147/87 (107) 99 11/15/17 19:30 Room Air I/O 11/15/17 11/15/17 11/15/17 11/16/17 11/16/17 11/16/17 07:00 15:00 23:00 07:00 15:00 23:00 Intake Total 240 ml 480 ml 105 ml 580 ml Output Total 275 ml 600 ml Balance -35 ml 480 ml 105 ml -20 ml Intake Oral 240 ml 480 ml 480 ml IV Total 105 ml 100 ml Output Urine Total 275 ml 600 ml # Voids 1 # Bowel Movements 0 Result Diagram: 11/16/17 0812 11/16/17 0812 Imaging Last [address] 11/16/17 0000 Signed Impressions: Service Date/Time: Thursday, November 16, 2017 17:36 - CONCLUSION: 1. The previously noted faint 7 mm area of hyperdensity in the left thalamus has improved and is almost completely resolved. 2. 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 3. No other new or significant changes compared to the prior study. 1. Iain Fragoso MD Head CT 11/15/17 0000 Signed Impressions: Service Date/Time: Wednesday, November 15, 2017 15:40 - CONCLUSION: 1. Small 7 mm area of hyperdensity within left lateral thalamus raising possibility of recurrent thalamic bleed. Clinical correlation is recommended. 2. Encephalomalacia within left basal ganglia which is stable compared to previous examination. Ric Jack MD Objective Remarks AAOx3, nad Clear lungs BL S1S2 RRR, no MRG Abdomen soft, nt, nd no edema in lower extremities. Procedures Tracheostomy and PEG placement TRACHEOSTOMY REMOVAL A/P Problem List: (1) Intracranial hemorrhage ICD Code: I62.9 - Nontraumatic intracranial hemorrhage, unspecified Status: Acute (2) Syncope ICD Code: R55 - Syncope and collapse Status: Acute (3) Seizure disorder ICD Code: G40.909 - Epilepsy, unspecified, not intractable, without status epilepticus Status: Acute (4) Encephalopathy acute ICD Code: G93.40 - Encephalopathy, unspecified Status: Acute Assessment and Plan Acute encephalopathy - improving. Left Thalamic Hemorrhage Intracerebral Hemorrhage Syncope/Suspected new onset seizure - Repeat CT of the head showed improving bleed - Neurosurgery follow-up appreciated; stable for dc to SNF per neurosurgery. - Continue rehabilitation efforts with PT, OT, speech - On Seroquel to control agitated delirium. Roxicodone as needed for pain 11/15 patient had a syncopal episode with post ictal state. I will order stat head CT, EEG, I will start the patient IV Keppra and consult neurology. Place on cardiac telemetry. / CT head showed possible recurrent bleed. Patient was moved to the ICU, neurosurgery notified. Repeat head CT shows improvement on bleed. Fu neurosurgery recommendations. EEG showed slowing consistent with encephalopathic process, possible postictal state. Will consult neurology in am. Patient was started on IV Keppra, continue. Anemia likely due to chronic disease. H/H fairly stable. will monitor periodically. HCAP treated. UTI: treated. Respiratory failure s/p trach trach has been removed. will monitor. pulmonary f/u appreciated. Diabetes mellitus - continue Levemir 15 units SQ q12h - Continue sliding scale insulin with Accu-Cheks. - hemoglobin A1c 9.1. 11/15 Blood sugars stable. Hypertension - Intermittent hypertension now well controlled - Continue clonidine, amlodipine and propranolol - Continue hydralazine. 2 Patient got several bp medications together at 13:10 hrs, Will check orthostatic BP and decrease the dose of some of these medications. 2 BP stable, if trending up will consider increasing medications back up. Nutrition status: - Status post PEG tube - -on diet now per ST. -calorie count in process- will consider removing the PEG- pending the result of calorie count. Acute kidney injury, most likely has CKD per nephrology: Renal function stabilized. - monitor renal function periodically. Pain to the right leg. DVT with no evidence of DVT- continue pain control. Resolved diplopia vertical gaze palsy - Ophthalmology consulted. Will need follow-up or vertical gaze palsy with Dr. Holloway as outpatient in 1 month. Physical deconditioning/right sided hemiparesis - OOB to stretcher chair daily - PT/OT following AND SPEECH PROPH: - SCD's. Pepcid for GI prophylaxis 35 minutes of critical care time was spent on patient care. Discharge Planning Continue to monitor in the intensive care unit. Mookie Silverman MD Nov 16, 2017 19:06
[2017-11-16] MEDS: ATORVASTATIN 40 MG TAB DOBHOFF SCH (21:07)
--- NOTE | 2017-11-16 22:02 | RADRPT ---
EXAM DATE/TIME: 11/16/2017 21:23 [facility] COMPARISON: US LEG RIGHT VENOUS DOPPLER, November 02, 2017, 13:14. INDICATIONS : Right leg pain. MEDICAL HISTORY : Gastroesophageal reflux disease. Hypertension. Neck pain. Cerebrovascular accident. Migraines. SURGICAL HISTORY : None. ENCOUNTER: [facility] ACUITY: 2 weeks PAIN SCORE: 2/10 LOCATION: Right leg. TECHNIQUE: Venous ultrasound of the leg was performed from the inguinal ligament to the proximal calf. Real-daryl e, color Doppler and spectral tracing, compression and augmentation techniques were used. FINDINGS: There is normal compressibility of the deep venous system from the inguinal region to the proximal ca lf. No echogenic clot is seen in the lumen of the common femoral, femoral, popliteal, and posterior tibial veins. There is a normal response of the venous system to proximal and distal augmentation an d respiration. CONCLUSION: No evidence of DVT. No significant change compared to the prior study. Iain Fragoso MD on November 16, 2017 at 21:59 Board Certified Radiologist. This report was verified electronically.
[2017-11-17] VITALS (10 sets, daily range): BP systolic 120–154; BP diastolic 70–92; PULSE 73–85; RESP 10–21; TEMP 97.7–99.4; O2SAT 94–98
[2017-11-17] MEDS: PROPRANOLOL HCL 40 MG TAB G-TUBE SCH ×4 (00:19→18:00)
[2017-11-17 05:55] LABS: CREATININE 1.13 MG/DL (0.60-1.30)
[2017-11-17] MEDS: hydrALAZINE HCL 100 MG TAB G-TUBE SCH ×3 (06:44→21:47)
[2017-11-17] MEDS: QUEtiapine FUMARATE 25 MG TAB G-TUBE SCH ×3 (06:44→21:47)
[2017-11-17] MEDS: cloNIDine HCL 0.3 MG TAB G-TUBE SCH ×3 (06:44→21:47)
[2017-11-17] MEDS: INSULIN ASPART SUPPLEMENTAL SCALE SQ SCH ×4 (08:00→21:48)
[2017-11-17] MEDS: GABAPENTIN 100 MG CAP PO SCH ×3 (09:00→18:00)
[2017-11-17] MEDS: FREE WATER G-TUBE SCH ×2 (09:00→21:00)
[2017-11-17] MEDS: FLUTICASONE PROPIONATE 50 MCG/ACT 16 GM NASAL SPRAY EACH NARE SCH (09:00)
[2017-11-17] MEDS: levETIRAcetam INJ 500 MG in SODIUM CHLORIDE 0.9% INJ 100 ML IV SCH ×2 (09:00→21:48)
[2017-11-17] MEDS: POLYETHYLENE GLYCOL 17 GM PKG G-TUBE SCH ×2 (09:00→21:46)
[2017-11-17] MEDS: CHLORHEXIDINE GLUCONATE 0.12% 15 ML CUP SWISH-SPIT SCH ×3 (09:00→18:00)
[2017-11-17] MEDS: DOCUSATE SODIUM 50 MG/SENNA 8.6 MG TAB G-TUBE SCH ×2 (09:00→21:47)
[2017-11-17] MEDS: FAMOTIDINE 20 MG TAB NG SCH ×2 (09:00→21:47)
--- NOTE | 2017-11-17 09:51 | HHI.NSPN ---
(James Ontiveros) History Chief Complaint: Right side weakness (James Ontiveros) Interval History 11/15: The patient became unresponsive for several minutes and a rapid response was called. When he woke up he was confused and imaging demonstrated a questionable new left lateral thalamic haemorrhage. He told the Hospitalist that "I fee faint and very tired." He was subsequently transferred to [facility] for further monitoring and care. 11/16: The patient was last seen by Neurosurgery on after his last CT brain on was stable without any evidence of a new haemorrhage. He was moving the left upper and lower extremities with equal strength which were stronger than the right upper. The right lower had trace muscle contractions at that time. His speech was clear but he did have some dysarthria. The patient states that he is doing good and wants to know how long he will be in [facility]. He does endorse weakness to the right lower extremity. He denies any headache or dizziness. He continues to have good muscle strength to the left side with weakness to the right upper. He is not able to move the right lower. Physical Therapy states that yesterday prior to his becoming unresponsive he was able to pull his right lower extremity inward but today he was not able to. Physical Therapy reports that the patient has been complaining of pain to the right lower extremity. 11/17: This morning the patient is asleep when seen but does awaken to voice. He says he is doing okay. He endorses continued right side weakness with numbness to the lower extremity. He denies any headache or dizziness. His examination is essentially stable but he does move the right knee some to command. (James Ontiveros) Exam Results 11/15/17 11/15/17 11/16/17 11/16/17 11/17/17 11/17/17 06:00 18:00 06:00 18:00 06:00 18:00 Intake Total 360 ml 240 ml 480 ml 585 ml 820 ml Output Total 800 ml 275 ml 600 ml 650 ml Balance -440 ml -35 ml 480 ml -15 ml 170 ml Intake Oral 360 ml 240 ml 480 ml 480 ml 720 ml IV Total 105 ml 100 ml Output Urine Total 800 ml 275 ml 600 ml 650 ml # Voids 1 # Bowel Movements 0 0 0 Vital Signs Date Time Temp Pulse Resp B/P (MAP) Pulse Ox O2 Delivery O2 Flow Rate FiO2 11/17/17 04:00 98.8 79 14 120/70 (87) 94 11/17/17 04:00 74 11/17/17 00:00 85 11/17/17 00:00 99.4 85 21 154/87 (109) 97 11/16/17 22:00 79 11/16/17 20:00 98.7 80 12 154/90 (111) 95 11/16/17 20:00 79 11/16/17 19:00 Room Air 11/16/17 18:00 74 11/16/17 16:00 98.9 80 14 136/81 (99) 97 11/16/17 16:00 88 11/16/17 14:00 80 11/16/17 12:00 98.4 86 24 133/76 (95) 97 11/16/17 12:00 85 11/16/17 10:00 80 11/16/17 09:02 95 21 11/16/17 08:00 80 11/16/17 08:00 98.2 80 22 143/62 (89) 97 11/16/17 07:00 Room Air 11/16/17 06:00 76 11/16/17 04:04 97 11/16/17 04:00 98.3 75 22 120/72 (88) 99 11/16/17 04:00 75 11/16/17 02:00 72 11/16/17 00:13 97 11/16/17 00:00 98.6 77 19 129/79 (96) 97 11/16/17 00:00 77 11/15/17 20:19 96 11/15/17 20:09 80 11/15/17 20:00 98.6 79 16 147/87 (107) 99 11/15/17 19:30 Room Air 11/15/17 17:02 77 11/15/17 16:00 98.2 76 18 148/83 (104) 95 11/15/17 12:00 98.0 78 20 149/80 (103) 96 11/15/17 08:00 98.4 71 20 156/89 (111) 94 11/15/17 07:00 Room Air 11/15/17 05:04 98.9 73 17 152/85 (107) 95 11/15/17 00:13 97.9 76 14 152/95 (114) 97 11/14/17 19:55 99.2 75 14 167/88 (114) 96 11/14/17 19:45 Room Air 11/14/17 16:07 98.6 77 20 139/88 (105) 95 11/14/17 12:09 98.8 77 21 155/92 (113) 95 (James Ontiveros) Physical Examination GENERAL: Asleep but awakens to voice, awake & alert after that. Readily interacts. Affect flat. No evident distress. HEENT: Normocephalic, atraumatic. Tracking with his eyes, gaze appears to be disconjugate. MMM & pink, tongue midline to protrusion. MUSCULOSKELETAL: No evident clubbing or deformity. Moves left side spontaneously & to command. Some movement of RUE to command. Trace movement of right knee to command. Right knee TTP. NEUROLOGICAL: Asleep but awakens to voice, oriented x3. Speech essentially clear & appropriate but w/some expressive aphasia & dysarthria. Pupils 3 mm reactive. Tracking with his eyes, gaze appears to be disconjugate. No facial numbness. Tongue midline to protrusion. Weak shoulder shrug on right. Follows simple commands. Sensation is decreased to RLE o/w intact to light touch to all extremities. Muscle strength to the left side extremities 4+ to 5/5 to all major flexion & extension muscle groups except that the hand intrinsics & extrinsics are 3 to 4/ 5. Muscle strength to the right upper extremity is 2/5 to the deltoid, 3/5 to the bicep, 4/5 to the tricep, hand intrinsics & extrinsics are 2/5 and 0 to 1/5 to the right lower extremity, trace movement at knee. (James Ontiveros) Lab, Micro, Other Results Recent Impressions Lower Extremity Ultrasound 11/16/17 0000 Signed Impressions: Service Date/Time: Thursday, November 16, 2017 21:23 - CONCLUSION: No evidence of DVT. No significant change compared to the prior study. Iain Fragoso MD Head CT 11/16/17 0000 Signed Impressions: Service Date/Time: Thursday, November 16, 2017 17:36 - CONCLUSION: 1. The previously noted faint 7 mm area of hyperdensity in the left thalamus has improved and is almost completely resolved. 2. 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 3. No other new or significant changes compared to the prior study. 1. Iain Fragoso MD Head CT 11/15/17 0000 Signed Impressions: Service Date/Time: Wednesday, November 15, 2017 15:40 - CONCLUSION: 1. Small 7 mm area of hyperdensity within left lateral thalamus raising possibility of recurrent thalamic bleed. Clinical correlation is recommended. 2. Encephalomalacia within left basal ganglia which is stable compared to previous examination. Ric Jack MD Laboratory Tests Test 11/15/17 08:20 11/16/17 08:12 11/16/17 13:12 11/17/17 03:19 Creatinine 0.83 MG/DL 1.01 MG/DL 1.13 MG/DL Estimat Glomerular Filtration Rate 122 ML/MIN 97 ML/MIN 85 ML/MIN White Blood Count 8.6 TH/MM3 Red Blood Count 3.47 MIL/MM3 Hemoglobin 8.6 GM/DL Hematocrit 26.8 % Mean Corpuscular Volume 77.1 FL Mean Corpuscular Hemoglobin 24.9 PG Mean Corpuscular Hemoglobin Concent 32.3 % Red Cell Distribution Width 16.5 % Platelet Count 538 TH/MM3 Mean Platelet Volume 7.6 FL Neutrophils (%) (Auto) 77.4 % Lymphocytes (%) (Auto) 13.8 % Monocytes (%) (Auto) 5.7 % Eosinophils (%) (Auto) 2.3 % Basophils (%) (Auto) 0.8 % Neutrophils # (Auto) 6.6 TH/MM3 Lymphocytes # (Auto) 1.2 TH/MM3 Monocytes # (Auto) 0.5 TH/MM3 Eosinophils # (Auto) 0.2 TH/MM3 Basophils # (Auto) 0.1 TH/MM3 CBC Comment DIFF FINAL Differential Comment Hematology Comments Blood Urea Nitrogen 10 MG/DL Random Glucose 71 MG/DL Total Protein 7.4 GM/DL Albumin 2.7 GM/DL Calcium Level 9.8 MG/DL Phosphorus Level 3.7 MG/DL Magnesium Level 2.1 MG/DL Alkaline Phosphatase 56 U/L Aspartate Amino Transf (AST/SGOT) 13 U/L Alanine Aminotransferase (ALT/SGPT) 8 U/L Total Bilirubin 0.3 MG/DL Sodium Level 137 MEQ/L Potassium Level 3.0 MEQ/L Chloride Level 102 MEQ/L Carbon Dioxide Level 30.4 MEQ/L Anion Gap 5 MEQ/L Prothrombin Time 10.8 SEC Prothromb Time International Ratio 1.1 RATIO Activated Partial Thromboplast Time 30.2 SEC (James Ontiveros) Medical Decision Making Impression and Plan Impression: 1. Large thalamic intracranial hemorrhage . 2. Hypertension, improved Right lower extremity pain. New onset left lateral thalamic haemorrhage . Neuro exam essentially stable compared to yesterday except able to have trace muscle movement at right knee. CT brain demonstrated almost complete resolution of the left thalamic haemorrhage. Old left parietal infarct stable. No other new or significant changes. Plan: Primary management per Hospitalist. Neuro checks. Stat CT brain for any decrease in neuro status. Mobilise patient w/assistance. Physical & Occupation Therapy. Hold pharmacologic DVT prophylaxis. Mechanical DVT prophylaxis. (James Ontiveros) Attending Statement The exam, history, and the medical decision-making described in the above note were completed with the assistance of the mid-level provider. I reviewed and agree with the findings presented. I attest that I had a [id number] encounter with the patient on the same day, and personally performed and documented my assessment and findings in the medical record. On my examination to 2017 the patient is awake and relatively alert He answers a few simple questions Follow simple commands Persistent right hemiparesis with mostly 3-4/5 right upper and one-to/5 right lower extremity motor function. Stable neurologic exam following new left thalamic intracranial hemorrhage. Hemorrhage improving on most recent CT scan of 11/16/2017. The patient may be on antiplatelet agents and also resume Lovenox-chemical DVT prophylaxis from a neurosurgical standpoint. (Orville Tinajero MD) James Ontiveros Nov 17, 2017 09:51 Orville Tinajero MD Nov 18, 2017 14:08
[2017-11-17] MEDS: INSULIN DETEMIR 100 UNITS/ML VIAL SQ SCH ×2 (10:00→21:49)
[2017-11-17 11:31] LABS: BICARBONATE 33.2 MEQ/L (21.0-32.0); CALCIUM 9.1 MG/DL (8.5-10.1); CREATININE 1.02 MG/DL (0.60-1.30)
--- NOTE | 2017-11-17 16:18 | HHI.PR ---
Subjective Remarks ALERT NO DISTRESS now in [facility], FOR POSSIBLE RECURRENT BLEED Objective Vital Signs Date Time Temp Pulse Resp B/P (MAP) Pulse Ox O2 Delivery O2 Flow Rate FiO2 11/17/17 12:00 73 11/17/17 12:00 98.4 73 10 129/72 (91) 97 11/17/17 11:30 11 11/17/17 08:00 74 11/17/17 08:00 98.7 74 10 136/78 (97) 97 Manual Cuff/Auscultation 11/17/17 08:00 97 Room Air 11/17/17 04:00 98.8 79 14 120/70 (87) 94 11/17/17 04:00 74 11/17/17 00:00 85 11/17/17 00:00 99.4 85 21 154/87 (109) 97 11/16/17 22:00 79 11/16/17 20:00 98.7 80 12 154/90 (111) 95 11/16/17 20:00 79 11/16/17 19:00 Room Air 11/16/17 18:00 74 I/O 11/16/17 11/16/17 11/16/17 11/17/17 11/17/17 11/17/17 07:00 15:00 23:00 07:00 15:00 23:00 Intake Total 480 ml 105 ml 580 ml 720 ml 100 ml Output Total 600 ml 650 ml Balance 480 ml 105 ml -20 ml 70 ml 100 ml Intake Oral 480 ml 480 ml 720 ml IV Total 105 ml 100 ml 100 ml Output Urine Total 600 ml 650 ml # Voids 1 # Bowel Movements 0 0 Result Diagram: 11/16/17 0812 11/17/17 1045 Objective Remarks GENERAL: SKIN: Warm and dry. HEAD: Atraumatic. Normocephalic. EYES: Pupils equal and round. No scleral icterus. No injection or drainage. ENT: No nasal bleeding or discharge. Mucous membranes pink and moist. NECK: Trachea midline. No JVD. CARDIOVASCULAR: Regular rate and rhythm. RESPIRATORY: No accessory muscle use. Clear to auscultation. Breath sounds equal bilaterally. GASTROINTESTINAL: Abdomen soft, non-tender, nondistended. Hepatic and splenic margins not palpable. MUSCULOSKELETAL: Extremities without clubbing, cyanosis, or edema. No obvious deformities. NEUROLOGICAL: Awake and alert. No obvious cranial nerve deficits. Motor grossly within normal limits. Five out of 5 muscle strength in the arms and legs. Normal speech. PSYCHIATRIC: Appropriate mood and affect; insight and judgment normal. Assessment and Plan Assessment and Plan RESPIRATORY FAILURE S/P CVA OBESITY HTN PLAN O2 NEEDED PULM TOILET INCREASE ACTIVITY Wang Piña MD Nov 17, 2017 16:18
[2017-11-17 17:59] LABS: FREE T4 1.23 NG/DL (0.76-1.46)
--- NOTE | 2017-11-17 19:22 | HHI.PR ---
Subjective Remarks The patient denies any headache. Blood pressures are stable. No reports of any seizure episode. Objective Vitals Vital Signs Date Time Temp Pulse Resp B/P (MAP) Pulse Ox O2 Delivery O2 Flow Rate FiO2 11/17/17 16:00 77 11/17/17 16:00 97.7 77 17 125/74 (91) 96 11/17/17 12:00 73 11/17/17 12:00 98.4 73 10 129/72 (91) 97 11/17/17 11:30 11 11/17/17 08:00 74 11/17/17 08:00 98.7 74 10 136/78 (97) 97 Manual Cuff/Auscultation 11/17/17 08:00 97 Room Air 11/17/17 04:00 98.8 79 14 120/70 (87) 94 11/17/17 04:00 74 11/17/17 00:00 85 11/17/17 00:00 99.4 85 21 154/87 (109) 97 11/16/17 22:00 79 11/16/17 20:00 98.7 80 12 154/90 (111) 95 11/16/17 20:00 79 I/O 11/16/17 11/16/17 11/16/17 11/17/17 11/17/17 11/17/17 06:59 14:59 22:59 06:59 14:59 22:59 Intake Total 480 ml 105 ml 580 ml 720 ml 100 ml 360 ml Output Total 600 ml 650 ml 350 ml Balance 480 ml 105 ml -20 ml 70 ml 100 ml 10 ml Intake Oral 480 ml 480 ml 720 ml 360 ml IV Total 105 ml 100 ml 100 ml Output Urine Total 600 ml 650 ml 350 ml Gastric Drainage Total 0 ml # Voids 1 # Bowel Movements 0 0 0 Result Diagram: 11/16/17 0812 11/17/17 1045 Imaging Last Impressions Lower Extremity Ultrasound 11/16/17 0000 Signed Impressions: Service Date/Time: Thursday, November 16, 2017 21:23 - CONCLUSION: No evidence of DVT. No significant change compared to the prior study. Iain Fragoso MD Head CT 11/16/17 0000 Signed Impressions: Service Date/Time: Thursday, November 16, 2017 17:36 - CONCLUSION: 1. The previously noted faint 7 mm area of hyperdensity in the left thalamus has improved and is almost completely resolved. 2. 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 3. No other new or significant changes compared to the prior study. 1. Iain Fragoso MD Chest X-Ray 11/07/17 0000 Signed Impressions: Service Date/Time: Tuesday, November 07, 2017 21:22 - CONCLUSION: Mild infiltrate on the left. Ignacio Lares MD Maxillofacial CT 09/16/17 0000 Signed Impressions: Service Date/Time: September 01:03 - CONCLUSION: 1. Evidence of acute pansinusitis. 2. Opacification of multiple bilateral mastoid air cells most characteristic of mastoiditis. 3. Mildly prominent cervical chain nodes which may be reactive. Angelo Conn MD Upper Extremity Ultrasound 09/15/17 0000 Signed Impressions: Service Date/Time: Friday, September 15, 2017 17:14 - CONCLUSION: Occlusive thrombus within the left cephalic vein and nonocclusive thrombus within the right cephalic vein. Ric Jack MD Chest CT 09/13/17 0000 Signed Impressions: Service Date/Time: Wednesday, September 13, 2017 09:28 - CONCLUSION: 1. Bibasilar and left lingular dependent atelectatic changes. Lungs are otherwise clear. 2. Tracheostomy tube with the tip probably positioned above the connie. 3. Compensated cardiomegaly. Reyes Guzman MD Abdomen/Pelvis CT 09/13/17 0000 Signed Impressions: Service Date/Time: Wednesday, September 13, 2017 09:28 - CONCLUSION: 1. There is some stranding in the retroperitoneal perivascular tissues around the distal aorta extending into the bifurcation with a regional borderline lymph nodes. Findings are characteristic of a nonspecific inflammatory process. Findings could represent early retroperitoneal fibrosis.. 2. Urinary bladder is decompressed with some mural thickening in pericystic inflammatory changes possibly representing a chronic cystitis. Nondependent air could be associated with a recent catheterization/instrumentation. 3. Small umbilical and right inguinal hernias only contain fat. 4. Bilateral dependent basilar and left lingular atelectatic changes. Heart size is borderline prominent. 5. Otherwise , bowel is intact without obstruction to explain abdominal distention Reyes Guzman MD Abdomen X-Ray 09/10/17 0600 Signed Impressions: Service Date/Time: Sunday, September 10, 2017 03:56 - CONCLUSION: No significant abnormality is identified. There is mild distention of the colon but there are no findings to suggest bowel obstruction or significant ileus. Igancio Underwood MD Liver Ultrasound 09/07/17 0000 Signed Impressions: Service Date/Time: Thursday, September 07, 2017 12:37 - CONCLUSION: 1. Unremarkable sonographic appearance of the liver. No evidence for hepatic volume loss or intrahepatic ductal dilatation. 2. No sonographic evidence for cholelithiasis or acute cholecystitis. 3. Mild increased right renal echogenicity may reflect medical renal disease. 4. Small bilateral pleural effusions. 5. Pancreas and inferior pole of the right kidney are obscured by bowel gas and therefore not evaluated. Darrell Robles MD Renal Ultrasound 08/31/17 0000 Signed Impressions: Service Date/Time: Thursday, August 31, 2017 17:42 - CONCLUSION: 1. No evidence of hydronephrosis on either side. 2. Solitary linear echogenic focus in the upper pole parenchyma of the right kidney has similar features to prior examination in January 2017 and possibly represents a calcification. David Snell MD Neck CTA [id number] Signed Impressions: Service Date/Time: Tuesday, August 29, 2017 00:13 - CONCLUSION: Negative carotid CTA. David Snell MD Head CTA [id number] Signed Impressions: Service Date/Time: Tuesday, August 29, 2017 00:13 - CONCLUSION: 1. No evidence of vessel truncation or aneurysm. 2. No abnormal vessels in the region of the large left thalamic hemorrhage. David Snell MD Objective Remarks AAOx3, nad Clear lungs BL S1S2 RRR, no MRG Abdomen soft, nt, nd no edema in lower extremities. Procedures Tracheostomy and PEG placement TRACHEOSTOMY REMOVAL Medications and IVs Current Medications Medications (Trade) Dose Ordered Sig/Hermann Route Start Time Stop Time Status Last Admin (NS Flush) 2 ml UNSCH PRN IVF 08/29/17 00:00 11/14/17 21:16 (Trandate Inj) 10 mg Q20M PRN IV PUSH 08/29/17 00:45 09/19/17 02:16 (Zofran Inj) 4 mg Q6H PRN IV PUSH 08/29/17 00:45 09/11/17 14:18 (Apresoline Inj) 10 mg Q30M PRN IV PUSH 08/30/17 08:15 09/19/17 09:08 (Flonase Tae Spr) 2 spray DAILY EACH NARE 09/05/17 17:00 11/16/17 09:00 (Gelfoam 12 Mm/7 Mm Top) 1 foam Q2HR PRN TOPICAL 09/07/17 19:45 09/08/17 08:00 (Heparin Inj) 5,000 units Q12HR SQ 09/11/17 21:00 Future Hold 09/28/17 08:20 (Lidocaine Pf 2% Neb) 1 ml Q6HR NEB PRN NEB 09/16/17 11:30 (Pepcid) 20 mg BID NG 09/24/17 09:30 11/17/17 21:47 (Lipitor) 40 mg HS DOBHOFF 09/25/17 21:00 11/17/17 21:47 (Catapres) 0.3 mg Q8HR G-TUBE 09/25/17 14:00 11/18/17 06:42 (Melina-Colace) 1 tab BID G-TUBE 09/25/17 21:00 11/17/17 21:47 (Apresoline) 100 mg Q8HR G-TUBE 09/25/17 14:00 11/18/17 06:06 (Miralax) 17 gm BID G-TUBE 09/25/17 21:00 11/17/17 21:46 (Inderal) 40 mg Q6HR G-TUBE 09/25/17 12:00 11/18/17 06:06 (SEROquel) 50 mg Q8HR G-TUBE 09/25/17 14:00 11/18/17 06:06 (Albuterol Neb) 2.5 mg Q2HR NEB PRN NEB 09/25/17 13:30 11/03/17 06:06 (Peridex 0.12% Liq) 15 ml TID SWISH-SPIT 10/11/17 18:00 11/17/17 18:00 (Neurontin) 100 mg TID PO 10/26/17 13:00 11/17/17 18:00 (Levemir Inj) 15 units Q12H SQ 11/01/17 22:00 11/17/17 21:49 (Morphine Inj) 2 mg Q3H PRN IM 11/01/17 13:00 11/01/17 13:25 (Roxicodone) 10 mg Q4H PRN PO 11/02/17 14:00 11/17/17 22:27 (Free Water) 100 ml BID G-TUBE 11/07/17 21:00 11/17/17 21:00 (NovoLOG SUPPLEMENTAL SCALE) 1 ACHS SLIDING SCALE SQ 11/07/17 12:00 11/17/17 21:48 (D50w (Vial) Inj) 50 ml UNSCH PRN IV PUSH 11/07/17 10:00 (Glucagon Inj) 1 mg UNSCH PRN OTHER 11/07/17 10:00 (Tylenol 650 Mg/ 20 ml Liq) 658 mg Q6H PRN G-TUBE 11/08/17 00:15 11/08/17 22:13 Levetriacetam 500 mg/Sodium Chloride 105 ml @ 420 mls/hr Q12HR IV 11/15/17 21:00 11/17/17 21:48 (Norvasc) 10 mg DAILY G-TUBE 11/18/17 09:00 Urinary Catheter: No Vascular Central Line Catheter: No A/P Problem List: (1) Intracranial hemorrhage ICD Code: I62.9 - Nontraumatic intracranial hemorrhage, unspecified Status: Acute (2) Syncope ICD Code: R55 - Syncope and collapse Status: Acute (3) Seizure disorder ICD Code: G40.909 - Epilepsy, unspecified, not intractable, without status epilepticus Status: Acute (4) Encephalopathy acute ICD Code: G93.40 - Encephalopathy, unspecified Status: Acute Assessment and Plan Acute encephalopathy - improving. Left Thalamic Hemorrhage Intracerebral Hemorrhage Syncope/Suspected new onset seizure - Repeat CT of the head showed improving bleed - Neurosurgery follow-up appreciated; stable for dc to SNF per neurosurgery. - Continue rehabilitation efforts with PT, OT, speech - On Seroquel to control agitated delirium. Roxicodone as needed for pain 11/15 patient had a syncopal episode with post ictal state. I will order stat head CT, EEG, I will start the patient IV Keppra and consult neurology. Place on cardiac telemetry. 11/16 CT head showed possible recurrent bleed. Patient was moved to the ICU, neurosurgery notified. Repeat head CT shows improvement on bleed. Fu neurosurgery recommendations. EEG showed slowing consistent with encephalopathic process, possible postictal state. Will consult neurology in am. Patient was started on IV Keppra, continue. 11/17 Consult neurology. Continue Keppra IV. Anemia likely due to chronic disease. H/H fairly stable. will monitor periodically. HCAP treated. UTI: treated. Respiratory failure s/p trach trach has been removed. will monitor. pulmonary f/u appreciated. Diabetes mellitus - continue Levemir 15 units SQ q12h - Continue sliding scale insulin with Accu-Cheks. - hemoglobin A1c 9.1. 11/15 Blood sugars stable. Hypertension - Intermittent hypertension now well controlled - Continue clonidine, amlodipine and propranolol - Continue hydralazine. 11/15 Patient got several bp medications together at 13:10 hrs, Will check orthostatic BP and decrease the dose of some of these medications. 11/16 BP stable, if trending up will consider increasing medications back up. 11/17 blood pressure elevated. Increased the dose of amlodipine back to 10 mg p.o. daily. Nutrition status: - Status post PEG tube - -on diet now per ST. -calorie count in process- will consider removing the PEG- pending the result of calorie count. Acute kidney injury, most likely has CKD per nephrology: Renal function stabilized. - monitor renal function periodically. Pain to the right leg. DVT with no evidence of DVT- continue pain control. Resolved diplopia vertical gaze palsy - Ophthalmology consulted. Will need follow-up or vertical gaze palsy with Dr. Holloway as outpatient in 1 month. Physical deconditioning/right sided hemiparesis - OOB to stretcher chair daily - PT/OT following AND SPEECH PROPH: - SCD's. Pepcid for GI prophylaxis Discharge Planning Continue to monitor in the intensive care unit. Mookie Silverman MD Nov 17, 2017 19:21
[2017-11-17] MEDS: ATORVASTATIN 40 MG TAB DOBHOFF SCH (21:47)
[2017-11-18] VITALS (9 sets, daily range): BP systolic 123–171; BP diastolic 78–108; PULSE 71–97; RESP 9–24; TEMP 98–98.4; O2SAT 96–100
[2017-11-18] MEDS: PROPRANOLOL HCL 40 MG TAB G-TUBE SCH ×4 (01:19→18:04)
[2017-11-18] MEDS: QUEtiapine FUMARATE 25 MG TAB G-TUBE SCH ×3 (06:06→20:49)
[2017-11-18] MEDS: hydrALAZINE HCL 100 MG TAB G-TUBE SCH ×3 (06:06→21:25)
[2017-11-18] MEDS: cloNIDine HCL 0.3 MG TAB G-TUBE SCH ×3 (06:42→20:44)
[2017-11-18] MEDS: LABETALOL HCL 100 MG/20 ML VIAL IV PUSH PRN (07:09)
[2017-11-18 07:32] LABS: HEMATOCRIT 28.8 % (39.0-51.0); HEMOGLOBIN 9.3 GM/DL (13.0-17.0); MEAN CELL VOLUME 76.9 FL (80.0-100.0); MEAN CORPUSCULAR HEMOGLOBIN 24.9 PG (27.0-34.0); MEAN CORPUSCULAR HGB CONC 32.4 % (32.0-36.0); MEAN PLATELET VOLUME 8.1 FL (7.0-11.0); PLATELET COUNT 532 TH/MM3 (150-450); RED BLOOD COUNT 3.74 MIL/MM3 (4.50-5.90); RED CELL DISTRIBUTION WIDTH 16.8 % (11.6-17.2); WHITE BLOOD COUNT 6.3 TH/MM3 (4.0-11.0)
[2017-11-18 07:40] LABS: CALCIUM 9.9 MG/DL (8.5-10.1); CREATININE 0.98 MG/DL (0.60-1.30); MAGNESIUM 2.1 MG/DL (1.5-2.5); PHOSPHORUS 3.5 MG/DL (2.5-4.9)
[2017-11-18] MEDS: hydrALAZINE HCL 20 MG/ML VIAL IV PUSH PRN (07:54)
[2017-11-18] MEDS: INSULIN ASPART SUPPLEMENTAL SCALE SQ SCH ×4 (08:00→20:49)
--- NOTE | 2017-11-18 08:53 | HHI.NSPN ---
(James Ontiveros) History Chief Complaint: Right side weakness (James Ontiveros) Interval History 11/15: The patient became unresponsive for several minutes and a rapid response was called. When he woke up he was confused and imaging demonstrated a questionable new left lateral thalamic haemorrhage. He told the Hospitalist that "I fee faint and very tired." He was subsequently transferred to [facility] for further monitoring and care. 11/16: The patient was last seen by Neurosurgery on after his last CT brain on was stable without any evidence of a new haemorrhage. He was moving the left upper and lower extremities with equal strength which were stronger than the right upper. The right lower had trace muscle contractions at that time. His speech was clear but he did have some dysarthria. The patient states that he is doing good and wants to know how long he will be in [facility]. He does endorse weakness to the right lower extremity. He denies any headache or dizziness. He continues to have good muscle strength to the left side with weakness to the right upper. He is not able to move the right lower. Physical Therapy states that yesterday prior to his becoming unresponsive he was able to pull his right lower extremity inward but today he was not able to. Physical Therapy reports that the patient has been complaining of pain to the right lower extremity. 11/17: This morning the patient is asleep when seen but does awaken to voice. He says he is doing okay. He endorses continued right side weakness with numbness to the lower extremity. He denies any headache or dizziness. His examination is essentially stable but he does move the right knee some to command. 11/18: When seen the patient was asleep but awoke to voice. After that he was awake and alert. He was asking when he could go home. He denies any headache or dizziness. He continues to have the right-sided weakness. There is no significant change in his neuro exam except the left hand intrinsics and extrinsics are stronger. (James Ontiveros) Exam Results 11/16/17 11/16/17 11/17/17 11/17/17 11/18/17 11/18/17 06:00 18:00 06:00 18:00 06:00 18:00 Intake Total 480 ml 585 ml 820 ml 460 ml 200 ml Output Total 600 ml 650 ml 350 ml 600 ml Balance 480 ml -15 ml 170 ml 110 ml -400 ml Intake Oral 480 ml 480 ml 720 ml 360 ml 200 ml IV Total 105 ml 100 ml 100 ml Output Urine Total 600 ml 650 ml 350 ml 600 ml Gastric Drainage Total 0 ml # Voids 1 # Bowel Movements 0 0 0 0 Vital Signs Date Time Temp Pulse Resp B/P (MAP) Pulse Ox O2 Delivery O2 Flow Rate FiO2 11/18/17 04:00 75 11/18/17 04:00 98.0 75 10 151/86 (107) 96 11/18/17 00:39 96 11/18/17 00:00 98.3 81 12 148/78 (101) 97 11/18/17 00:00 81 11/17/17 23:27 15 11/17/17 20:35 97 11/17/17 20:00 98.2 78 12 129/72 (91) 96 11/17/17 20:00 78 11/17/17 19:38 82 20 140/92 (108) 98 11/17/17 19:33 82 20 143/86 (105) 98 11/17/17 19:28 82 15 148/80 (102) 98 11/17/17 19:00 96 Room Air 11/17/17 16:00 77 11/17/17 16:00 97.7 77 17 125/74 (91) 96 11/17/17 12:00 73 11/17/17 12:00 98.4 73 10 129/72 (91) 97 11/17/17 08:00 74 11/17/17 08:00 98.7 74 10 136/78 (97) 97 Manual Cuff/Auscultation 11/17/17 08:00 97 Room Air 11/17/17 04:00 98.8 79 14 120/70 (87) 94 11/17/17 04:00 74 11/17/17 00:00 85 11/17/17 00:00 99.4 85 21 154/87 (109) 97 11/16/17 22:00 79 11/16/17 20:00 98.7 80 12 154/90 (111) 95 11/16/17 20:00 79 11/16/17 19:00 Room Air 11/16/17 18:00 74 11/16/17 16:00 98.9 80 14 136/81 (99) 97 11/16/17 16:00 88 11/16/17 14:00 80 11/16/17 12:00 98.4 86 24 133/76 (95) 97 11/16/17 12:00 85 11/16/17 10:00 80 11/16/17 09:02 95 21 11/16/17 08:00 80 11/16/17 08:00 98.2 80 22 143/62 (89) 97 11/16/17 07:00 Room Air 11/16/17 06:00 76 11/16/17 04:04 97 11/16/17 04:00 98.3 75 22 120/72 (88) 99 11/16/17 04:00 75 11/16/17 02:00 72 11/16/17 00:13 97 11/16/17 00:00 98.6 77 19 129/79 (96) 97 11/16/17 00:00 77 11/15/17 20:19 96 11/15/17 20:09 80 11/15/17 20:00 98.6 79 16 147/87 (107) 99 11/15/17 19:30 Room Air 11/15/17 17:02 77 11/15/17 16:00 98.2 76 18 148/83 (104) 95 11/15/17 12:00 98.0 78 20 149/80 (103) 96 Vital Signs Date Time Temp Pulse Resp B/P (MAP) Pulse Ox O2 Delivery O2 Flow Rate FiO2 11/18/17 04:00 75 11/18/17 04:00 98.0 10 151/86 (107) 96 11/17/17 19:00 Room Air 11/16/17 09:02 21 Intake and Output 11/18/17 11/18/17 11/19/17 08:00 16:00 00:00 Intake Total 200 ml Output Total 600 ml Balance -400 ml (James Ontiveros) Physical Examination GENERAL: Asleep but awakens to voice, awake & alert after that. Readily interacts. Affect slightly flat. No evident distress. HEENT: Normocephalic, atraumatic. Tracking with his eyes, gaze appears to be disconjugate. MMM & pink, tongue midline to protrusion. MUSCULOSKELETAL: No evident clubbing or deformity. Moves left side spontaneously & to command. Some movement of RUE to command. Trace movement medially to right leg to command. NEUROLOGICAL: Asleep but awakens to voice, oriented x3. Speech essentially clear & appropriate but w/some expressive aphasia & dysarthria. Pupils 3 mm reactive. Tracking with his eyes, gaze appears to be disconjugate. No facial numbness. Tongue midline to protrusion. Weak shoulder shrug on right. Follows simple commands. Sensation is decreased to RLE o/w intact to light touch to all extremities. Muscle strength to the left side extremities 4+ to 5/5 to all major flexion & extension muscle groups except that the hand intrinsics & extrinsics are 4+/5. Muscle strength to the right upper extremity is 2/5 to the deltoid, 3/5 to the bicep, 4/5 to the tricep, hand intrinsics & extrinsics are 2/5 and 0 to 1/5 to the right lower extremity, trace movement medially to right leg to command. (James Ontiveros) Lab, Micro, Other Results Recent Impressions Lower Extremity Ultrasound 11/16/17 0000 Signed Impressions: Service Date/Time: Thursday, November 16, 2017 21:23 - CONCLUSION: No evidence of DVT. No significant change compared to the prior study. Iain Fragoso MD Head CT 11/16/17 0000 Signed Impressions: Service Date/Time: Thursday, November 16, 2017 17:36 - CONCLUSION: 1. The previously noted faint 7 mm area of hyperdensity in the left thalamus has improved and is almost completely resolved. 2. 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 3. No other new or significant changes compared to the prior study. 1. Iain Fragoso MD Laboratory Tests Test 11/16/17 08:12 11/16/17 13:12 11/17/17 03:19 11/17/17 10:45 White Blood Count 8.6 TH/MM3 Red Blood Count 3.47 MIL/MM3 Hemoglobin 8.6 GM/DL Hematocrit 26.8 % Mean Corpuscular Volume 77.1 FL Mean Corpuscular Hemoglobin 24.9 PG Mean Corpuscular Hemoglobin Concent 32.3 % Red Cell Distribution Width 16.5 % Platelet Count 538 TH/MM3 Mean Platelet Volume 7.6 FL Neutrophils (%) (Auto) 77.4 % Lymphocytes (%) (Auto) 13.8 % Monocytes (%) (Auto) 5.7 % Eosinophils (%) (Auto) 2.3 % Basophils (%) (Auto) 0.8 % Neutrophils # (Auto) 6.6 TH/MM3 Lymphocytes # (Auto) 1.2 TH/MM3 Monocytes # (Auto) 0.5 TH/MM3 Eosinophils # (Auto) 0.2 TH/MM3 Basophils # (Auto) 0.1 TH/MM3 CBC Comment DIFF FINAL Differential Comment Hematology Comments Blood Urea Nitrogen 10 MG/DL 11 MG/DL Creatinine 1.01 MG/DL 1.13 MG/DL 1.02 MG/DL Random Glucose 71 MG/DL 100 MG/DL Total Protein 7.4 GM/DL Albumin 2.7 GM/DL Calcium Level 9.8 MG/DL 9.1 MG/DL Phosphorus Level 3.7 MG/DL Magnesium Level 2.1 MG/DL Alkaline Phosphatase 56 U/L Aspartate Amino Transf (AST/SGOT) 13 U/L Alanine Aminotransferase (ALT/SGPT) 8 U/L Total Bilirubin 0.3 MG/DL Sodium Level 137 MEQ/L 142 MEQ/L Potassium Level 3.0 MEQ/L 3.4 MEQ/L Chloride Level 102 MEQ/L 104 MEQ/L Carbon Dioxide Level 30.4 MEQ/L 33.2 MEQ/L Anion Gap 5 MEQ/L 5 MEQ/L Estimat Glomerular Filtration Rate 97 ML/MIN 85 ML/MIN 96 ML/MIN Prothrombin Time 10.8 SEC Prothromb Time International Ratio 1.1 RATIO Activated Partial Thromboplast Time 30.2 SEC Free Thyroxine 1.23 NG/DL Thyroid Stimulating Hormone 3rd Gen 1.330 uIU/ML Test 11/18/17 06:26 White Blood Count 6.3 TH/MM3 Red Blood Count 3.74 MIL/MM3 Hemoglobin 9.3 GM/DL Hematocrit 28.8 % Mean Corpuscular Volume 76.9 FL Mean Corpuscular Hemoglobin 24.9 PG Mean Corpuscular Hemoglobin Concent 32.4 % Red Cell Distribution Width 16.8 % Platelet Count 532 TH/MM3 Mean Platelet Volume 8.1 FL Blood Urea Nitrogen 13 MG/DL Creatinine 0.98 MG/DL Random Glucose 93 MG/DL Calcium Level 9.9 MG/DL Phosphorus Level 3.5 MG/DL Magnesium Level 2.1 MG/DL Sodium Level 142 MEQ/L Potassium Level 3.5 MEQ/L Chloride Level 104 MEQ/L Carbon Dioxide Level 31.0 MEQ/L Anion Gap 7 MEQ/L Estimat Glomerular Filtration Rate 101 ML/MIN (James Ontiveros) Medical Decision Making Impression and Plan Impression: 1. Large thalamic intracranial hemorrhage . 2. Hypertension, improved Right lower extremity pain. New onset left lateral thalamic haemorrhage . Neuro exam remains stable compared to yesterday. Reviewed labs for today. Interval improvement in haemoglobin level & thrombocytosis from . Sodium stable at 142. CT brain demonstrated almost complete resolution of the left thalamic haemorrhage. Old left parietal infarct stable. No other new or significant changes. Plan: Primary management per Hospitalist. Neuro checks. Stat CT brain for any decrease in neuro status. Mobilise patient w/assistance. Physical & Occupation Therapy. Hold pharmacologic DVT prophylaxis. Mechanical DVT prophylaxis. Patient is able to be transferred to a regular med/surg floor from Neurosurgery' s perspective. (James Ontiveros) Attending Statement The exam, history, and the medical decision-making described in the above note were completed with the assistance of the mid-level provider. I reviewed and agree with the findings presented. I attest that I had a [id number] encounter with the patient on the same day, and personally performed and documented my assessment and findings in the medical record. My examination of 11/18/2017 the patient relatively awake, converses a little, following simple commands. Persistent right hemiparesis, mostly 36-4/5 right upper extremity, 1-to/5 right lower extremity Remains neurologic stable MRI requested by neurology, and pending at the time of my 11/18/2017 visit Continue to progress activity, continue therapies (Orville Tinajero MD) James Ontiveros Nov 18, 2017 08:53 Orville Tinajero MD Nov 19, 2017 09:08
[2017-11-18] MEDS ORDERED: POTASSIUM CHLORIDE 20 MEQ CONTROLLED RELEASE TAB PO ONE (09:00)
[2017-11-18] MEDS: FREE WATER G-TUBE SCH ×2 (09:00→20:51)
[2017-11-18] MEDS: DOCUSATE SODIUM 50 MG/SENNA 8.6 MG TAB G-TUBE SCH ×2 (09:00→20:44)
[2017-11-18] MEDS: CHLORHEXIDINE GLUCONATE 0.12% 15 ML CUP SWISH-SPIT SCH ×3 (09:00→18:04)
[2017-11-18] MEDS: FLUTICASONE PROPIONATE 50 MCG/ACT 16 GM NASAL SPRAY EACH NARE SCH (09:00)
[2017-11-18] MEDS: INSULIN DETEMIR 100 UNITS/ML VIAL SQ SCH ×2 (10:00→20:51)
--- NOTE | 2017-11-18 10:08 | HHI.PR ---
Subjective Remarks Denies headache, nausea or vomiting. BP elevated into the 150's systolic afebrile no seizure episode reported Objective Vitals Vital Signs Date Time Temp Pulse Resp B/P (MAP) Pulse Ox O2 Delivery O2 Flow Rate FiO2 11/18/17 09:13 99 21 11/18/17 04:00 75 11/18/17 04:00 98.0 75 10 151/86 (107) 96 11/18/17 00:39 96 11/18/17 00:00 98.3 81 12 148/78 (101) 97 11/18/17 00:00 81 11/17/17 23:27 15 11/17/17 20:35 97 11/17/17 20:00 98.2 78 12 129/72 (91) 96 11/17/17 20:00 78 11/17/17 19:38 82 20 140/92 (108) 98 11/17/17 19:33 82 20 143/86 (105) 98 11/17/17 19:28 82 15 148/80 (102) 98 11/17/17 19:00 96 Room Air 11/17/17 16:00 77 11/17/17 16:00 97.7 77 17 125/74 (91) 96 11/17/17 12:00 73 11/17/17 12:00 98.4 73 10 129/72 (91) 97 I/O 11/17/17 11/17/17 11/17/17 11/18/17 11/18/17 11/18/17 07:00 15:00 23:00 07:00 15:00 23:00 Intake Total 720 ml 100 ml 360 ml 200 ml Output Total 650 ml 350 ml 600 ml Balance 70 ml 100 ml 10 ml -400 ml Intake Oral 720 ml 360 ml 200 ml IV Total 100 ml Output Urine Total 650 ml 350 ml 600 ml Gastric Drainage Total 0 ml # Bowel Movements 0 0 0 Result Diagram: 11/18/1762511/18/17625 Imaging Last Impressions Lower Extremity Ultrasound 11/16/17 0000 Signed Impressions: Service Date/Time: Thursday, November 16, 2017 21:23 - CONCLUSION: No evidence of DVT. No significant change compared to the prior study. Iain Fragoso MD Head CT 11/16/17 0000 Signed Impressions: Service Date/Time: Thursday, November 16, 2017 17:36 - CONCLUSION: 1. The previously noted faint 7 mm area of hyperdensity in the left thalamus has improved and is almost completely resolved. 2. 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 3. No other new or significant changes compared to the prior study. 1. Iain Fragoso MD Chest X-Ray 11/07/17 0000 Signed Impressions: Service Date/Time: Tuesday, November 07, 2017 21:22 - CONCLUSION: Mild infiltrate on the left. Ignacio Lares MD Maxillofacial CT 09/16/17 0000 Signed Impressions: Service Date/Time: September 01:03 - CONCLUSION: 1. Evidence of acute pansinusitis. 2. Opacification of multiple bilateral mastoid air cells most characteristic of mastoiditis. 3. Mildly prominent cervical chain nodes which may be reactive. Angelo Conn MD Upper Extremity Ultrasound 09/15/17 0000 Signed Impressions: Service Date/Time: Friday, September 15, 2017 17:14 - CONCLUSION: Occlusive thrombus within the left cephalic vein and nonocclusive thrombus within the right cephalic vein. Ric Jack MD Chest CT 09/13/17 0000 Signed Impressions: Service Date/Time: Wednesday, September 13, 2017 09:28 - CONCLUSION: 1. Bibasilar and left lingular dependent atelectatic changes. Lungs are otherwise clear. 2. Tracheostomy tube with the tip probably positioned above the connie. 3. Compensated cardiomegaly. Reyes Guzman MD Abdomen/Pelvis CT 09/13/17 0000 Signed Impressions: Service Date/Time: Wednesday, September 13, 2017 09:28 - CONCLUSION: 1. There is some stranding in the retroperitoneal perivascular tissues around the distal aorta extending into the bifurcation with a regional borderline lymph nodes. Findings are characteristic of a nonspecific inflammatory process. Findings could represent early retroperitoneal fibrosis.. 2. Urinary bladder is decompressed with some mural thickening in pericystic inflammatory changes possibly representing a chronic cystitis. Nondependent air could be associated with a recent catheterization/instrumentation. 3. Small umbilical and right inguinal hernias only contain fat. 4. Bilateral dependent basilar and left lingular atelectatic changes. Heart size is borderline prominent. 5. Otherwise , bowel is intact without obstruction to explain abdominal distention Reyes Guzman MD Abdomen X-Ray 09/10/17 0600 Signed Impressions: Service Date/Time: Sunday, September 10, 2017 03:56 - CONCLUSION: No significant abnormality is identified. There is mild distention of the colon but there are no findings to suggest bowel obstruction or significant ileus. Ignacio Underwood MD Liver Ultrasound 09/07/17 0000 Signed Impressions: Service Date/Time: Thursday, September 07, 2017 12:37 - CONCLUSION: 1. Unremarkable sonographic appearance of the liver. No evidence for hepatic volume loss or intrahepatic ductal dilatation. 2. No sonographic evidence for cholelithiasis or acute cholecystitis. 3. Mild increased right renal echogenicity may reflect medical renal disease. 4. Small bilateral pleural effusions. 5. Pancreas and inferior pole of the right kidney are obscured by bowel gas and therefore not evaluated. Darrell Robles MD Renal Ultrasound 08/31/17 0000 Signed Impressions: Service Date/Time: Thursday, August 31, 2017 17:42 - CONCLUSION: 1. No evidence of hydronephrosis on either side. 2. Solitary linear echogenic focus in the upper pole parenchyma of the right kidney has similar features to prior examination in January 2017 and possibly represents a calcification. David Snell MD Neck CTA [id number] Signed Impressions: Service Date/Time: Tuesday, August 29, 2017 00:13 - CONCLUSION: Negative carotid CTA. David Snell MD Head CTA [id number] Signed Impressions: Service Date/Time: Tuesday, August 29, 2017 00:13 - CONCLUSION: 1. No evidence of vessel truncation or aneurysm. 2. No abnormal vessels in the region of the large left thalamic hemorrhage. David Snell MD Objective Remarks AAOx3, nad Clear lungs BL S1S2 RRR, no MRG Abdomen soft, nt, nd no edema in lower extremities. Neuro: Speech essentially clear & appropriate but w/some expressive aphasia & dysarthria. Pupils 3 mm reactive. Tracking with his eyes, gaze appears to be disconjugate. No facial numbness. Tongue midline to protrusion. Weak shoulder shrug on right. Follows simple commands. Sensation is decreased to RLE o/w intact to light touch to all extremities. Muscle strength to the left side extremities 4+ to 5/5 to all major flexion & extension muscle groups except that the hand intrinsics & extrinsics are 4+/5. Muscle strength to the right upper extremity is 2/5 to the deltoid, 3/5 to the bicep, 4/5 to the tricep, hand intrinsics & extrinsics are 2/5 and 0 to 1/5 to the right lower extremity, trace movement medially to right leg to command. Procedures Tracheostomy and PEG placement TRACHEOSTOMY REMOVAL Medications and IVs Current Medications Medications (Trade) Dose Ordered Sig/Hermann Route Start Time Stop Time Status Last Admin (NS Flush) 2 ml UNSCH PRN IVF 08/29/17 00:00 11/14/17 21:16 (Trandate Inj) 10 mg Q20M PRN IV PUSH 08/29/17 00:45 11/18/17 07:09 (Zofran Inj) 4 mg Q6H PRN IV PUSH 08/29/17 00:45 09/11/17 14:18 (Apresoline Inj) 10 mg Q30M PRN IV PUSH 08/30/17 08:15 11/18/17 07:54 (Flonase Tae Spr) 2 spray DAILY EACH NARE 09/05/17 17:00 11/16/17 09:00 (Gelfoam 12 Mm/7 Mm Top) 1 foam Q2HR PRN TOPICAL 09/07/17 19:45 09/08/17 08:00 (Heparin Inj) 5,000 units Q12HR SQ 09/11/17 21:00 Future Hold 09/28/17 08:20 (Lidocaine Pf 2% Neb) 1 ml Q6HR NEB PRN NEB 09/16/17 11:30 (Pepcid) 20 mg BID NG 09/24/17 09:30 11/17/17 21:47 (Lipitor) 40 mg HS DOBHOFF 09/25/17 21:00 11/17/17 21:47 (Catapres) 0.3 mg Q8HR G-TUBE 09/25/17 14:00 11/18/17 06:42 (Melina-Colace) 1 tab BID G-TUBE 09/25/17 21:00 11/17/17 21:47 (Apresoline) 100 mg Q8HR G-TUBE 09/25/17 14:00 11/18/17 06:06 (Miralax) 17 gm BID G-TUBE 09/25/17 21:00 11/17/17 21:46 (Inderal) 40 mg Q6HR G-TUBE 09/25/17 12:00 11/18/17 06:06 (SEROquel) 50 mg Q8HR G-TUBE 09/25/17 14:00 11/18/17 06:06 (Albuterol Neb) 2.5 mg Q2HR NEB PRN NEB 09/25/17 13:30 11/03/17 06:06 (Peridex 0.12% Liq) 15 ml TID SWISH-SPIT 10/11/17 18:00 11/17/17 18:00 (Neurontin) 100 mg TID PO 10/26/17 13:00 11/17/17 18:00 (Levemir Inj) 15 units Q12H SQ 11/01/17 22:00 11/17/17 21:49 (Morphine Inj) 2 mg Q3H PRN IM 11/01/17 13:00 11/01/17 13:25 (Roxicodone) 10 mg Q4H PRN PO 11/02/17 14:00 11/18/17 07:54 (Free Water) 100 ml BID G-TUBE 11/07/17 21:00 11/17/17 21:00 (NovoLOG SUPPLEMENTAL SCALE) 1 ACHS SLIDING SCALE SQ 11/07/17 12:00 11/17/17 21:48 (D50w (Vial) Inj) 50 ml UNSCH PRN IV PUSH 11/07/17 10:00 (Glucagon Inj) 1 mg UNSCH PRN OTHER 11/07/17 10:00 (Tylenol 650 Mg/ 20 ml Liq) 658 mg Q6H PRN G-TUBE 11/08/17 00:15 11/08/17 22:13 Levetriacetam 500 mg/Sodium Chloride 105 ml @ 420 mls/hr Q12HR IV 11/15/17 21:00 11/17/17 21:48 (Norvasc) 10 mg DAILY G-TUBE 11/18/17 09:00 A/P Problem List: (1) Intracranial hemorrhage ICD Code: I62.9 - Nontraumatic intracranial hemorrhage, unspecified Status: Acute (2) Syncope ICD Code: R55 - Syncope and collapse Status: Acute (3) Seizure disorder ICD Code: G40.909 - Epilepsy, unspecified, not intractable, without status epilepticus Status: Acute (4) Encephalopathy acute ICD Code: G93.40 - Encephalopathy, unspecified Status: Acute Assessment and Plan Acute encephalopathy - improving. Left Thalamic Hemorrhage Intracerebral Hemorrhage Syncope/Suspected new onset seizure - Repeat CT of the head showed improving bleed - Neurosurgery follow-up appreciated; stable for dc to SNF per neurosurgery. - Continue rehabilitation efforts with PT, OT, speech - On Seroquel to control agitated delirium. Roxicodone as needed for pain 11/15 patient had a syncopal episode with post ictal state. I will order stat head CT, EEG, I will start the patient IV Keppra and consult neurology. Place on cardiac telemetry. 11/16 CT head showed possible recurrent bleed. Patient was moved to the ICU, neurosurgery notified. Repeat head CT shows improvement on bleed. Fu neurosurgery recommendations. EEG showed slowing consistent with encephalopathic process, possible postictal state. Will consult neurology in am. Patient was started on IV Keppra, continue. 11/17 Consult neurology. Continue Keppra IV. 11/18 nephrology consult pending. No seizures. Fu neurosurgery recommendations. Anemia likely due to chronic disease. H/H fairly stable. will monitor periodically. HCAP treated. UTI: treated. Respiratory failure s/p trach trach has been removed. will monitor. pulmonary f/u appreciated. Diabetes mellitus - continue Levemir 15 units SQ q12h - Continue sliding scale insulin with Accu-Cheks. - hemoglobin A1c 9.1. - Blood sugars stable. Hypertension - Intermittent hypertension now well controlled - Continue clonidine, amlodipine and propranolol - Continue hydralazine. 11/15 Patient got several bp medications together at 13:10 hrs, Will check orthostatic BP and decrease the dose of some of these medications. 11/16 BP stable, if trending up will consider increasing medications back up. 11/17 blood pressure elevated. Increased the dose of amlodipine back to 10 mg p.o. daily. 11/18 BP still elevated however patient have not gotten am medications yet, will fu and adjust BP medications to a target sbp <130. Nutrition status: - Status post PEG tube - -on diet now per ST. -calorie count in process- will consider removing the PEG- pending the result of calorie count. Acute kidney injury, most likely has CKD per nephrology: Renal function stabilized. - monitor renal function periodically. Pain to the right leg. DVT with no evidence of DVT- continue pain control. Resolved diplopia vertical gaze palsy - Ophthalmology consulted. Will need follow-up or vertical gaze palsy with Dr. Holloway as outpatient in 1 month. Physical deconditioning/right sided hemiparesis - OOB to stretcher chair daily - PT/OT following AND SPEECH PROPH: - SCD's. Pepcid for GI prophylaxis Discharge Planning ok to transfer to med/surg floor if cleared by neurosurgery. Mookie Silverman MD Nov 18, 2017 10:08
[2017-11-18] MEDS: POLYETHYLENE GLYCOL 17 GM PKG G-TUBE SCH ×2 (10:17→20:49)
[2017-11-18] MEDS: GABAPENTIN 100 MG CAP PO SCH ×3 (10:18→18:04)
[2017-11-18] MEDS: levETIRAcetam INJ 500 MG in SODIUM CHLORIDE 0.9% INJ 100 ML IV SCH ×2 (10:18→20:49)
[2017-11-18] MEDS: FAMOTIDINE 20 MG TAB NG SCH ×2 (10:18→20:45)
[2017-11-18] MEDS ORDERED: GADODIAMIDE PF 287 MG/ML 20 ML VIAL (for RAD MRI) IVCONTRAST ONE (15:18)
--- NOTE | 2017-11-18 16:50 | HHI.PR ---
Subjective Remarks ALERT NO DISTRESS now in [facility], FOR POSSIBLE RECURRENT BLEED Objective Vital Signs Date Time Temp Pulse Resp B/P (MAP) Pulse Ox O2 Delivery O2 Flow Rate FiO2 11/18/17 12:00 98.2 84 14 123/78 (93) 100 11/18/17 12:00 80 11/18/17 09:13 99 21 11/18/17 08:00 80 11/18/17 08:00 98.1 80 24 171/97 (121) 98 11/18/17 07:00 96 Room Air 11/18/17 04:00 75 11/18/17 04:00 98.0 75 10 151/86 (107) 96 11/18/17 00:39 96 11/18/17 00:00 98.3 81 12 148/78 (101) 97 11/18/17 00:00 81 11/17/17 23:27 15 11/17/17 20:35 97 11/17/17 20:00 98.2 78 12 129/72 (91) 96 11/17/17 20:00 78 11/17/17 19:38 82 20 140/92 (108) 98 11/17/17 19:33 82 20 143/86 (105) 98 11/17/17 19:28 82 15 148/80 (102) 98 11/17/17 19:00 96 Room Air I/O 11/17/17 11/17/17 11/17/17 11/18/17 11/18/17 11/18/17 07:00 15:00 23:00 07:00 15:00 23:00 Intake Total 720 ml 100 ml 360 ml 200 ml Output Total 650 ml 350 ml 600 ml Balance 70 ml 100 ml 10 ml -400 ml Intake Oral 720 ml 360 ml 200 ml IV Total 100 ml Output Urine Total 650 ml 350 ml 600 ml Gastric Drainage Total 0 ml # Bowel Movements 0 0 0 Result Diagram: 11/18/1762511/18/17625 Objective Remarks GENERAL: SKIN: Warm and dry. HEAD: Atraumatic. Normocephalic. EYES: Pupils equal and round. No scleral icterus. No injection or drainage. ENT: No nasal bleeding or discharge. Mucous membranes pink and moist. NECK: Trachea midline. No JVD. CARDIOVASCULAR: Regular rate and rhythm. RESPIRATORY: No accessory muscle use. Clear to auscultation. Breath sounds equal bilaterally. GASTROINTESTINAL: Abdomen soft, non-tender, nondistended. Hepatic and splenic margins not palpable. MUSCULOSKELETAL: Extremities without clubbing, cyanosis, or edema. No obvious deformities. NEUROLOGICAL: Awake and alert. No obvious cranial nerve deficits. Motor grossly within normal limits. Five out of 5 muscle strength in the arms and legs. Normal speech. PSYCHIATRIC: Appropriate mood and affect; insight and judgment normal. Medications and IVs GENERAL: SKIN: Warm and dry. HEAD: Atraumatic. Normocephalic. EYES: Pupils equal and round. No scleral icterus. No injection or drainage. ENT: No nasal bleeding or discharge. Mucous membranes pink and moist. NECK: Trachea midline. No JVD. CARDIOVASCULAR: Regular rate and rhythm. RESPIRATORY: No accessory muscle use. Clear to auscultation. Breath sounds equal bilaterally. GASTROINTESTINAL: Abdomen soft, non-tender, nondistended. Hepatic and splenic margins not palpable. MUSCULOSKELETAL: Extremities without clubbing, cyanosis, or edema. No obvious deformities. NEUROLOGICAL: Awake and alert. No obvious cranial nerve deficits. Motor grossly within normal limits. Five out of 5 muscle strength in the arms and legs. Normal speech. PSYCHIATRIC: Appropriate mood and affect; insight and judgment normal. Assessment and Plan Assessment and Plan RESPIRATORY FAILURE S/P CVA OBESITY HTN PLAN O2 NEEDED PULM TOILET INCREASE ACTIVITY Wang Piña MD Nov 18, 2017 16:50
--- NOTE | 2017-11-18 16:55 | RADRPT ---
EXAM DATE/TIME: 11/18/2017 14:44 [facility] COMPARISON: MRI BRAIN W & W/O CONTRAST, December 20, 2015, 12:53. INDICATIONS : CVA. CONTRAST: 18 cc Omniscan (gadodiamide) IV MEDICAL HISTORY : Hypertension. GERD, CVA, Migraines SURGICAL HISTORY : Peg tube placement ENCOUNTER: Subsequent ACUITY: 3 weeks PAIN SCORE: 0/10 LOCATION: brain TECHNIQUE: Multiplanar, multisequence MRI of the brain was performed both prior to and following the administrat ion of paramagnetic contrast. FINDINGS: The ventricular system is normal in size and configuration. The exam demonstrates a focal encephaloma lacia in the posterior aspect of the thalamus on the left. There is no evidence of abnormal diffusion signal within this. Exam would be consistent with an old area of cortical infarct. There some punctate areas of increased T2 signal in the white matter on the inversion recovery images most consistent with mild microvascular ischemic and mild negative change. No abnormal extra-axial f luid collections are seen. Imaging through the posterior fossa demonstrates a 1.7 x 2.4 cm homogeneously enhancing mass in the l eft cerebral pontine angle. This is most consistent with an acoustic schwannoma No other enhancing mass lesion is identified within the brain parenchyma.. This is essentially unchan ged when compared to previous study dated 12/20/15. CONCLUSION: 1. There is an area of encephalomalacia involving the posterior thalamus and posterior aspect of the caudate on the left. This would be consistent with an old area of infarct. This was not evident on pr evious MRI dated 12/20/15. There is no evidence of abnormal signal within this on the diffusion restri ction images. 2. 2.5 x 1.7 cm homogeneously enhancing mass in the left cerebral pontine angle most consistent with acoustic schwannoma. 3. There is fluid within the mastoid air cells bilaterally. Ant Reece MD on November 18, 2017 at 16:48 Board Certified Radiologist. This report was verified electronically.
[2017-11-18] MEDS: ATORVASTATIN 40 MG TAB DOBHOFF SCH (20:44)
[2017-11-19] VITALS: BP 140/85; PULSE 74; RESP 12; TEMP 98.2; O2SAT 97
[2017-11-19] MEDS: PROPRANOLOL HCL 40 MG TAB G-TUBE SCH ×5 (00:31→23:54)
[2017-11-19 04:00] VITALS: BP 134/83; PULSE 69; RESP 9; TEMP 98.5; O2SAT 97
[2017-11-19] MEDS: cloNIDine HCL 0.3 MG TAB G-TUBE SCH ×3 (05:07→21:11)
[2017-11-19] MEDS: hydrALAZINE HCL 100 MG TAB G-TUBE SCH ×3 (05:07→21:11)
[2017-11-19] MEDS: QUEtiapine FUMARATE 25 MG TAB G-TUBE SCH (05:07)
[2017-11-19 05:21] LABS: CREATININE 0.94 MG/DL (0.60-1.30)
--- NOTE | 2017-11-19 07:35 | HHI.PR ---
Objective Vital Signs Date Time Temp Pulse Resp B/P (MAP) Pulse Ox O2 Delivery O2 Flow Rate FiO2 11/19/17 04:00 69 11/19/17 04:00 98.5 69 9 134/83 (100) 97 11/19/17 00:00 98.2 74 12 140/85 (103) 97 11/19/17 00:00 74 11/18/17 22:29 14 11/18/17 20:00 98.4 71 9 151/87 (108) 97 11/18/17 20:00 97 11/18/17 19:00 97 Room Air 11/18/17 16:00 76 11/18/17 16:00 98.4 76 14 143/79 (100) 96 11/18/17 12:00 98.2 84 14 123/78 (93) 100 11/18/17 12:00 80 11/18/17 09:13 99 21 11/18/17 08:05 98.1 80 24 171/97 (121) 98 168/102 (124) 164/108 (126) 11/18/17 08:00 80 11/18/17 08:00 98.1 80 24 171/97 (121) 98 I/O 11/18/17 11/18/17 11/18/17 11/19/17 11/19/17 11/19/17 07:00 15:00 23:00 07:00 15:00 23:00 Intake Total 200 ml 100 ml 580 ml 360 ml Output Total 600 ml 550 ml 550 ml Balance -400 ml 100 ml 30 ml -190 ml Intake Oral 200 ml 480 ml 360 ml IV Total 100 ml 100 ml Output Urine Total 600 ml 550 ml 550 ml Gastric Drainage Total 0 ml # Voids 2 # Bowel Movements 0 0 0 Result Diagram: 11/18/17 0626 11/19/17 0431 Objective Remarks awake alert can hear on left to finger rub as far as i can tell mod r hp Assessment and Plan Assessment and Plan imp stand bp ok tsh and eeg nl mri left thalmic bleeed ok and left acoustic neuroma will have nusu comment ow doing well uti pseudomonas still ? rx? i dced his seroquel unclear if he actually had sz ok for keppra po change 500 bid but may taper off in future Natan Saleh MD Nov 19, 2017 07:35
[2017-11-19 08:00] VITALS: BP 118/63; PULSE 73; RESP 13; TEMP 98.3; O2SAT 97
[2017-11-19] MEDS: INSULIN ASPART SUPPLEMENTAL SCALE SQ SCH ×4 (08:00→21:00)
[2017-11-19] MEDS: CHLORHEXIDINE GLUCONATE 0.12% 15 ML CUP SWISH-SPIT SCH ×3 (09:00→18:00)
[2017-11-19] MEDS: FREE WATER G-TUBE SCH ×2 (09:00→21:12)
[2017-11-19] MEDS: FLUTICASONE PROPIONATE 50 MCG/ACT 16 GM NASAL SPRAY EACH NARE SCH (09:00)
[2017-11-19] MEDS: FAMOTIDINE 20 MG TAB NG SCH ×2 (09:09→21:11)
[2017-11-19] MEDS: GABAPENTIN 100 MG CAP PO SCH ×3 (09:09→18:06)
[2017-11-19] MEDS: POLYETHYLENE GLYCOL 17 GM PKG G-TUBE SCH ×2 (09:09→21:12)
[2017-11-19] MEDS: DOCUSATE SODIUM 50 MG/SENNA 8.6 MG TAB G-TUBE SCH ×2 (09:12→21:11)
[2017-11-19] MEDS: levETIRAcetam INJ 500 MG in SODIUM CHLORIDE 0.9% INJ 100 ML IV SCH ×2 (09:12→21:12)
--- NOTE | 2017-11-19 09:30 | HHI.NSPN ---
(James Ontiveros) History Chief Complaint: Right side weakness (James Ontiveros) Interval History 11/15: The patient became unresponsive for several minutes and a rapid response was called. When he woke up he was confused and imaging demonstrated a questionable new left lateral thalamic haemorrhage. He told the Hospitalist that "I feel faint and very tired." He was subsequently transferred to [facility] for further monitoring and care. 11/16: The patient was last seen by Neurosurgery on after his last CT brain on was stable without any evidence of a new haemorrhage. He was moving the left upper and lower extremities with equal strength which were stronger than the right upper. The right lower had trace muscle contractions at that time. His speech was clear but he did have some dysarthria. The patient states that he is doing good and wants to know how long he will be in [facility]. He does endorse weakness to the right lower extremity. He denies any headache or dizziness. He continues to have good muscle strength to the left side with weakness to the right upper. He is not able to move the right lower. Physical Therapy states that yesterday prior to his becoming unresponsive he was able to pull his right lower extremity inward but today he was not able to. Physical Therapy reports that the patient has been complaining of pain to the right lower extremity. 11/17: This morning the patient is asleep when seen but does awaken to voice. He says he is doing okay. He endorses continued right side weakness with numbness to the lower extremity. He denies any headache or dizziness. His examination is essentially stable but he does move the right knee some to command. 11/18: When seen the patient was asleep but awoke to voice. After that he was awake and alert. He was asking when he could go home. He denies any headache or dizziness. He continues to have the right-sided weakness. There is no significant change in his neuro exam except the left hand intrinsics and extrinsics are stronger. 11/19: The patient is asleep but awakens to voice. When asked how he is doing he states that he is ready to go home. He denied any headache or dizziness. He continues to have right-sided weakness as well as numbness to the right lower extremity. His neuro exam is without any change. (James Ontiveros) Exam Results 11/17/17 11/17/17 11/18/17 11/18/17 11/19/17 11/19/17 06:00 18:00 06:00 18:00 06:00 18:00 Intake Total 820 ml 460 ml 200 ml 580 ml 460 ml Output Total 650 ml 350 ml 600 ml 550 ml 550 ml Balance 170 ml 110 ml -400 ml 30 ml -90 ml Intake Oral 720 ml 360 ml 200 ml 480 ml 360 ml IV Total 100 ml 100 ml 100 ml 100 ml Output Urine Total 650 ml 350 ml 600 ml 550 ml 550 ml Gastric Drainage Total 0 ml 0 ml # Voids 2 # Bowel Movements 0 0 0 0 0 Vital Signs Date Time Temp Pulse Resp B/P (MAP) Pulse Ox O2 Delivery O2 Flow Rate FiO2 11/19/17 08:00 98.3 73 13 118/63 (81) 97 11/19/17 08:00 73 11/19/17 08:00 97 Room Air 11/19/17 04:00 69 11/19/17 04:00 98.5 69 9 134/83 (100) 97 11/19/17 00:00 98.2 74 12 140/85 (103) 97 11/19/17 00:00 74 11/18/17 22:29 14 11/18/17 20:00 98.4 71 9 151/87 (108) 97 11/18/17 20:00 97 11/18/17 19:00 97 Room Air 11/18/17 16:00 76 11/18/17 16:00 98.4 76 14 143/79 (100) 96 11/18/17 12:00 98.2 84 14 123/78 (93) 100 11/18/17 12:00 80 11/18/17 09:13 99 21 11/18/17 08:05 98.1 80 24 171/97 (121) 98 168/102 (124) 164/108 (126) 11/18/17 08:00 80 11/18/17 08:00 98.1 80 24 171/97 (121) 98 11/18/17 07:00 96 Room Air 11/18/17 04:00 75 11/18/17 04:00 98.0 75 10 151/86 (107) 96 11/18/17 00:39 96 11/18/17 00:00 98.3 81 12 148/78 (101) 97 11/18/17 00:00 81 11/17/17 20:35 97 11/17/17 20:00 98.2 78 12 129/72 (91) 96 11/17/17 20:00 78 11/17/17 19:38 82 20 140/92 (108) 98 11/17/17 19:33 82 20 143/86 (105) 98 11/17/17 19:28 82 15 148/80 (102) 98 11/17/17 19:00 96 Room Air 11/17/17 16:00 77 11/17/17 16:00 97.7 77 17 125/74 (91) 96 11/17/17 12:00 73 11/17/17 12:00 98.4 73 10 129/72 (91) 97 11/17/17 08:00 74 11/17/17 08:00 98.7 74 10 136/78 (97) 97 Manual Cuff/Auscultation 11/17/17 08:00 97 Room Air 11/17/17 04:00 98.8 79 14 120/70 (87) 94 11/17/17 04:00 74 11/17/17 00:00 85 11/17/17 00:00 99.4 85 21 154/87 (109) 97 11/16/17 22:00 79 11/16/17 20:00 98.7 80 12 154/90 (111) 95 11/16/17 20:00 79 11/16/17 19:00 Room Air 11/16/17 18:00 74 11/16/17 16:00 98.9 80 14 136/81 (99) 97 11/16/17 16:00 88 11/16/17 14:00 80 11/16/17 12:00 98.4 86 24 133/76 (95) 97 11/16/17 12:00 85 11/16/17 10:00 80 (James Ontiveros) Physical Examination GENERAL: Asleep but awakens to voice, awake & alert after that. Readily interacts. Affect flat. No evident distress. HEENT: Normocephalic, atraumatic. Tracking with his eyes, gaze appears to be disconjugate. MMM & pink, tongue midline to protrusion. MUSCULOSKELETAL: No evident clubbing or deformity. Moves left side spontaneously & to command. Some movement of RUE to command. Trace movement medially to right leg to command. NEUROLOGICAL: Asleep but awakens to voice, oriented to person & place. Speech essentially clear & appropriate but w/some expressive aphasia & dysarthria. Pupils 3 mm reactive. Tracking with his eyes, gaze appears to be disconjugate. No facial numbness. Tongue midline to protrusion. Weak shoulder shrug on right. Follows simple commands. Sensation is decreased to RLE o/w intact to light touch to all extremities. Muscle strength to the left side extremities 4+ to 5/5 to all major flexion & extension muscle groups except that the hand intrinsics & extrinsics are 4+/5. Muscle strength to the right upper extremity is 2/5 to the deltoid, 3/5 to the bicep, 4/5 to the tricep, hand intrinsics & extrinsics are 2/5 and 0 to 1/5 to the right lower extremity, trace movement medially to right leg to command. (James Ontiveros) Lab, Micro, Other Results Recent Impressions Brain MRI 11/18/17 1613 Signed Impressions: Service Date/Time: November 14:44 - CONCLUSION: 1. There is an area of encephalomalacia involving the posterior thalamus and posterior aspect of the caudate on the left. This would be consistent with an old area of infarct. This was not evident on previous MRI dated 12/20/15. There is no evidence of abnormal signal within this on the diffusion restriction images. 2. 2.5 x 1.7 cm homogeneously enhancing mass in the left cerebral pontine angle most consistent with acoustic schwannoma. 3. There is fluid within the mastoid air cells bilaterally. Ant Reece MD Laboratory Tests Test 11/16/17 13:12 11/17/17 03:19 11/17/17 10:45 11/18/17 06:26 Prothrombin Time 10.8 SEC Prothromb Time International Ratio 1.1 RATIO Activated Partial Thromboplast Time 30.2 SEC Creatinine 1.13 MG/DL 1.02 MG/DL 0.98 MG/DL Estimat Glomerular Filtration Rate 85 ML/MIN 96 ML/MIN 101 ML/MIN Blood Urea Nitrogen 11 MG/DL 13 MG/DL Random Glucose 100 MG/DL 93 MG/DL Calcium Level 9.1 MG/DL 9.9 MG/DL Sodium Level 142 MEQ/L 142 MEQ/L Potassium Level 3.4 MEQ/L 3.5 MEQ/L Chloride Level 104 MEQ/L 104 MEQ/L Carbon Dioxide Level 33.2 MEQ/L 31.0 MEQ/L Anion Gap 5 MEQ/L 7 MEQ/L Free Thyroxine 1.23 NG/DL Thyroid Stimulating Hormone 3rd Gen 1.330 uIU/ML White Blood Count 6.3 TH/MM3 Red Blood Count 3.74 MIL/MM3 Hemoglobin 9.3 GM/DL Hematocrit 28.8 % Mean Corpuscular Volume 76.9 FL Mean Corpuscular Hemoglobin 24.9 PG Mean Corpuscular Hemoglobin Concent 32.4 % Red Cell Distribution Width 16.8 % Platelet Count 532 TH/MM3 Mean Platelet Volume 8.1 FL Phosphorus Level 3.5 MG/DL Magnesium Level 2.1 MG/DL Test 11/19/17 04:31 Creatinine 0.94 MG/DL Estimat Glomerular Filtration Rate 106 ML/MIN (James Ontiveros) Medical Decision Making Impression and Plan Impression: 1. Large thalamic intracranial hemorrhage . 2. Hypertension, improved Right lower extremity pain. New onset left lateral thalamic haemorrhage . The patient is doing well and remains neurologically stable on his examination. Reviewed labs for today. CT brain demonstrated almost complete resolution of the left thalamic haemorrhage. Old left parietal infarct stable. No other new or significant changes. MRI brain demonstrated encephalomalacia c/w old infarct. There was a homogeneously enhancing mass in the left cerebral pontine angle c/w an acoustic shwannoma. Also noted was fluid w/i the mastoid cells bilaterally. Plan: Primary management per Hospitalist. Neuro checks. Stat CT brain for any decrease in neuro status. Mobilise patient w/assistance. Physical & Occupation Therapy. Hold pharmacologic DVT prophylaxis. Mechanical DVT prophylaxis. Patient is able to be transferred to a regular med/surg floor from Neurosurgery' s perspective. (James Ontiveros) Attending Statement The exam, history, and the medical decision-making described in the above note were completed with the assistance of the mid-level provider. I reviewed and agree with the findings presented. I attest that I had a [id number] encounter with the patient on the same day, and personally performed and documented my assessment and findings in the medical record. On my examination of 11/19/2017 the patient remains awake and relatively alert. Continues to follow simple commands Right hemiparesis unchanged. 11/18/2017 MRI brain images reviewed. Probable subacute left basal ganglia infarct, resolving hemorrhage. No significant mass effect Approximately 17 mm left cerebellopontine angle lesion which extends into the internal auditory meatus, consistent with moderate size acoustic neuroma. Discussed with patient Plan initial conservative treatment for the CP angle lesion at this point. He is stable for discharge or rehabilitation from neurosurgical standpoint with follow-up appointment with neurosurgery in approximately 2-3 months. Treatment options for the CP angle lesion will be discussed later with the patient when hopefully his mental status has improved. (Orville Tinajero MD) James Ontiveros Nov 19, 2017 09:30 Orville Tinajero MD Nov 19, 2017 18:32
[2017-11-19 12:00] VITALS: BP 128/75; PULSE 75; RESP 13; TEMP 97.6; O2SAT 97
[2017-11-19] MEDS: INSULIN DETEMIR 100 UNITS/ML VIAL SQ SCH ×2 (13:00→21:12)
[2017-11-19 16:00] VITALS: BP 125/74; PULSE 81; RESP 10; TEMP 98.5; O2SAT 100
--- NOTE | 2017-11-19 17:45 | HHI.PR ---
Subjective Remarks The patient denies any chest pain or shortness of breath. Patient also denies headache, nausea or vomiting. Patient is afebrile. Blood pressure stable. Objective Vitals Vital Signs Date Time Temp Pulse Resp B/P (MAP) Pulse Ox O2 Delivery O2 Flow Rate FiO2 11/19/17 16:00 98.5 81 10 125/74 (91) 100 11/19/17 16:00 81 11/19/17 12:00 97.6 75 13 128/75 (92) 97 11/19/17 12:00 75 11/19/17 08:00 98.3 73 13 118/63 (81) 97 11/19/17 08:00 73 11/19/17 08:00 97 Room Air 11/19/17 04:00 69 11/19/17 04:00 98.5 69 9 134/83 (100) 97 11/19/17 00:00 98.2 74 12 140/85 (103) 97 11/19/17 00:00 74 11/18/17 22:29 14 11/18/17 20:00 98.4 71 9 151/87 (108) 97 11/18/17 20:00 97 11/18/17 19:00 97 Room Air I/O 11/18/17 11/18/17 11/18/17 11/19/17 11/19/17 11/19/17 06:59 14:59 22:59 06:59 14:59 22:59 Intake Total 200 ml 100 ml 580 ml 360 ml 100 ml Output Total 600 ml 550 ml 550 ml Balance -400 ml 100 ml 30 ml -190 ml 100 ml Intake Oral 200 ml 480 ml 360 ml IV Total 100 ml 100 ml 100 ml Output Urine Total 600 ml 550 ml 550 ml Gastric Drainage Total 0 ml # Voids 2 # Bowel Movements 0 0 0 Result Diagram: 11/18/17 0626 11/19/17 0431 Imaging Last Impressions Brain MRI 11/18/17 1613 Signed Impressions: Service Date/Time: November 14:44 - CONCLUSION: 1. There is an area of encephalomalacia involving the posterior thalamus and posterior aspect of the caudate on the left. This would be consistent with an old area of infarct. This was not evident on previous MRI dated 12/20/15. There is no evidence of abnormal signal within this on the diffusion restriction images. 2. 2.5 x 1.7 cm homogeneously enhancing mass in the left cerebral pontine angle most consistent with acoustic schwannoma. 3. There is fluid within the mastoid air cells bilaterally. Ant Reece MD Lower Extremity Ultrasound 11/16/17 0000 Signed Impressions: Service Date/Time: Thursday, November 16, 2017 21:23 - CONCLUSION: No evidence of DVT. No significant change compared to the prior study. Iain Fragoso MD Head CT 11/16/17 0000 Signed Impressions: Service Date/Time: Thursday, November 16, 2017 17:36 - CONCLUSION: 1. The previously noted faint 7 mm area of hyperdensity in the left thalamus has improved and is almost completely resolved. 2. 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 3. No other new or significant changes compared to the prior study. 1. Iain Fragoso MD Chest X-Ray 11/07/17 0000 Signed Impressions: Service Date/Time: Tuesday, November 07, 2017 21:22 - CONCLUSION: Mild infiltrate on the left. Ignacio Lares MD Maxillofacial CT 09/16/17 0000 Signed Impressions: Service Date/Time: September 01:03 - CONCLUSION: 1. Evidence of acute pansinusitis. 2. Opacification of multiple bilateral mastoid air cells most characteristic of mastoiditis. 3. Mildly prominent cervical chain nodes which may be reactive. Angelo Conn MD Upper Extremity Ultrasound 09/15/17 0000 Signed Impressions: Service Date/Time: Friday, September 15, 2017 17:14 - CONCLUSION: Occlusive thrombus within the left cephalic vein and nonocclusive thrombus within the right cephalic vein. Ric Jack MD Chest CT 09/13/17 0000 Signed Impressions: Service Date/Time: Wednesday, September 13, 2017 09:28 - CONCLUSION: 1. Bibasilar and left lingular dependent atelectatic changes. Lungs are otherwise clear. 2. Tracheostomy tube with the tip probably positioned above the connie. 3. Compensated cardiomegaly. Reyes Guzman MD Abdomen/Pelvis CT 09/13/17 0000 Signed Impressions: Service Date/Time: Wednesday, September 13, 2017 09:28 - CONCLUSION: 1. There is some stranding in the retroperitoneal perivascular tissues around the distal aorta extending into the bifurcation with a regional borderline lymph nodes. Findings are characteristic of a nonspecific inflammatory process. Findings could represent early retroperitoneal fibrosis.. 2. Urinary bladder is decompressed with some mural thickening in pericystic inflammatory changes possibly representing a chronic cystitis. Nondependent air could be associated with a recent catheterization/instrumentation. 3. Small umbilical and right inguinal hernias only contain fat. 4. Bilateral dependent basilar and left lingular atelectatic changes. Heart size is borderline prominent. 5. Otherwise , bowel is intact without obstruction to explain abdominal distention Reyes Guzman MD Abdomen X-Ray 09/10/17 0600 Signed Impressions: Service Date/Time: Sunday, September 10, 2017 03:56 - CONCLUSION: No significant abnormality is identified. There is mild distention of the colon but there are no findings to suggest bowel obstruction or significant ileus. Ignacio Underwood MD Liver Ultrasound 09/07/17 0000 Signed Impressions: Service Date/Time: Thursday, September 07, 2017 12:37 - CONCLUSION: 1. Unremarkable sonographic appearance of the liver. No evidence for hepatic volume loss or intrahepatic ductal dilatation. 2. No sonographic evidence for cholelithiasis or acute cholecystitis. 3. Mild increased right renal echogenicity may reflect medical renal disease. 4. Small bilateral pleural effusions. 5. Pancreas and inferior pole of the right kidney are obscured by bowel gas and therefore not evaluated. Darrell Robles MD Renal Ultrasound 08/31/17 0000 Signed Impressions: Service Date/Time: Thursday, August 31, 2017 17:42 - CONCLUSION: 1. No evidence of hydronephrosis on either side. 2. Solitary linear echogenic focus in the upper pole parenchyma of the right kidney has similar features to prior examination in January 2017 and possibly represents a calcification. David Snell MD Neck CTA 08/28/177 Signed Impressions: Service Date/Time: Tuesday, August 29, 2017 00:13 - CONCLUSION: Negative carotid CTA. David Snell MD Head CTA 08/28/177 Signed Impressions: Service Date/Time: Tuesday, August 29, 2017 00:13 - CONCLUSION: 1. No evidence of vessel truncation or aneurysm. 2. No abnormal vessels in the region of the large left thalamic hemorrhage. David Snell MD Objective Remarks AAOx3, nad Clear lungs BL S1S2 RRR, no MRG Abdomen soft, nt, nd no edema in lower extremities. Neuro: Speech essentially clear & appropriate but w/some expressive aphasia & dysarthria. Pupils 3 mm reactive. Tracking with his eyes, gaze appears to be disconjugate. No facial numbness. Tongue midline to protrusion. Weak shoulder shrug on right. Follows simple commands. Sensation is decreased to RLE o/w intact to light touch to all extremities. Muscle strength to the left side extremities 4+ to 5/5 to all major flexion & extension muscle groups except that the hand intrinsics & extrinsics are 4+/5. Muscle strength to the right upper extremity is 2/5 to the deltoid, 3/5 to the bicep, 4/5 to the tricep, hand intrinsics & extrinsics are 2/5 and 0 to 1/5 to the right lower extremity, trace movement medially to right leg to command. Procedures Tracheostomy and PEG placement TRACHEOSTOMY REMOVAL A/P Problem List: (1) Intracranial hemorrhage ICD Code: I62.9 - Nontraumatic intracranial hemorrhage, unspecified Status: Acute (2) Syncope ICD Code: R55 - Syncope and collapse Status: Acute (3) Seizure disorder ICD Code: G40.909 - Epilepsy, unspecified, not intractable, without status epilepticus Status: Acute (4) Encephalopathy acute ICD Code: G93.40 - Encephalopathy, unspecified Status: Acute Assessment and Plan Acute encephalopathy - improving. Left Thalamic Hemorrhage Intracerebral Hemorrhage Syncope/Suspected new onset seizure - Repeat CT of the head showed improving bleed - Neurosurgery follow-up appreciated; stable for dc to SNF per neurosurgery. - Continue rehabilitation efforts with PT, OT, speech - On Seroquel to control agitated delirium. Roxicodone as needed for pain 2/ patient had a syncopal episode with post ictal state. I will order stat head CT, EEG, I will start the patient IV Keppra and consult neurology. Place on cardiac telemetry. / CT head showed possible recurrent bleed. Patient was moved to the ICU, neurosurgery notified. Repeat head CT shows improvement on bleed. Fu neurosurgery recommendations. EEG showed slowing consistent with encephalopathic process, possible postictal state. Will consult neurology in am. Patient was started on IV Keppra, continue. 11/17 Consult neurology. Continue Keppra IV. 11/18 nephrology consult pending. No seizures. Fu neurosurgery recommendations. 11/19 will change IV Keppra to p.o. Keppra 500 mg p.o. twice daily. Anemia likely due to chronic disease. H/H fairly stable. will monitor periodically. HCAP treated. UTI: treated. Respiratory failure s/p trach trach has been removed. will monitor. pulmonary f/u appreciated. Diabetes mellitus - continue Levemir 15 units SQ q12h - Continue sliding scale insulin with Accu-Cheks. - hemoglobin A1c 9.1. - Blood sugars stable. Hypertension - Intermittent hypertension now well controlled - Continue clonidine, amlodipine and propranolol - Continue hydralazine. 11/15 Patient got several bp medications together at 13:10 hrs, Will check orthostatic BP and decrease the dose of some of these medications. 11/16 BP stable, if trending up will consider increasing medications back up. 11/17 blood pressure elevated. Increased the dose of amlodipine back to 10 mg p.o. daily. 11/18 BP still elevated however patient have not gotten am medications yet, will fu and adjust BP medications to a target sbp <130. 11/19 blood pressure is now stable. Continue same antihypertensive medications. Nutrition status: - Status post PEG tube - -on diet now per ST. -calorie count in process- will consider removing the PEG- pending the result of calorie count. Acute kidney injury, most likely has CKD per nephrology: Renal function stabilized. - monitor renal function periodically. Pain to the right leg. DVT with no evidence of DVT- continue pain control. Resolved diplopia vertical gaze palsy - Ophthalmology consulted. Will need follow-up or vertical gaze palsy with Dr. Holloway as outpatient in 1 month. Physical deconditioning/right sided hemiparesis - OOB to stretcher chair daily - PT/OT following AND SPEECH UTI Last urine culture grew Pseudomonas. The patient is currently on Levaquin p.o. , will continue for a total of 7 days. PROPH: - SCD's. Pepcid for GI prophylaxis Discharge Planning Possible discharge in a.. Mookie Silverman MD Nov 19, 2017 17:45
[2017-11-19 20:00] VITALS: BP 145/75; PULSE 78; RESP 13; TEMP 98.6; O2SAT 96
[2017-11-19] MEDS: ATORVASTATIN 40 MG TAB DOBHOFF SCH (21:11)
[2017-11-20] VITALS: BP 136/79; PULSE 71; RESP 12; TEMP 98.7; O2SAT 97
[2017-11-20 04:00] VITALS: BP 133/82; PULSE 66; PULSE 72; RESP 16; TEMP 98.7; O2SAT 96
[2017-11-20] MEDS: PROPRANOLOL HCL 40 MG TAB G-TUBE SCH ×2 (05:48→12:00)
[2017-11-20] MEDS: hydrALAZINE HCL 100 MG TAB G-TUBE SCH ×2 (05:48→14:00)
[2017-11-20] MEDS: cloNIDine HCL 0.3 MG TAB G-TUBE SCH ×2 (05:48→14:00)
[2017-11-20 08:00] VITALS: BP 123/70; PULSE 67; RESP 15; TEMP 98; O2SAT 95
[2017-11-20] MEDS: INSULIN ASPART SUPPLEMENTAL SCALE SQ SCH ×2 (08:00→12:00)
[2017-11-20] MEDS ORDERED: levETIRAcetam 500 MG TAB PO SCH (09:00)
[2017-11-20] MEDS: CHLORHEXIDINE GLUCONATE 0.12% 15 ML CUP SWISH-SPIT SCH (09:00)
[2017-11-20] MEDS: FREE WATER G-TUBE SCH (09:00)
[2017-11-20] MEDS: POLYETHYLENE GLYCOL 17 GM PKG G-TUBE SCH (09:00)
--- NOTE | 2017-11-20 09:17 | HHI.NSPN ---
(James Ontiveros) History Chief Complaint: Right side weakness (James Ontiveros) Interval History 11/15: The patient became unresponsive for several minutes and a rapid response was called. When he woke up he was confused and imaging demonstrated a questionable new left lateral thalamic haemorrhage. He told the Hospitalist that "I feel faint and very tired." He was subsequently transferred to [facility] for further monitoring and care. 11/16: The patient was last seen by Neurosurgery on after his last CT brain on was stable without any evidence of a new haemorrhage. He was moving the left upper and lower extremities with equal strength which were stronger than the right upper. The right lower had trace muscle contractions at that time. His speech was clear but he did have some dysarthria. The patient states that he is doing good and wants to know how long he will be in [facility]. He does endorse weakness to the right lower extremity. He denies any headache or dizziness. He continues to have good muscle strength to the left side with weakness to the right upper. He is not able to move the right lower. Physical Therapy states that yesterday prior to his becoming unresponsive he was able to pull his right lower extremity inward but today he was not able to. Physical Therapy reports that the patient has been complaining of pain to the right lower extremity. 11/17: This morning the patient is asleep when seen but does awaken to voice. He says he is doing okay. He endorses continued right side weakness with numbness to the lower extremity. He denies any headache or dizziness. His examination is essentially stable but he does move the right knee some to command. 11/18: When seen the patient was asleep but awoke to voice. After that he was awake and alert. He was asking when he could go home. He denies any headache or dizziness. He continues to have the right-sided weakness. There is no significant change in his neuro exam except the left hand intrinsics and extrinsics are stronger. 11/19: The patient is asleep but awakens to voice. When asked how he is doing he states that he is ready to go home. He denied any headache or dizziness. He continues to have right-sided weakness as well as numbness to the right lower extremity. His neuro exam is without any change. 11/20: This morning the patient is asleep but awakens to voice. He is alert and interactive after that. He denies any headache, dizziness or double or blurry vision. He denies any pain, numbness or tingling to the extremities but he does say the right side is weak and he is not able to move the lower extremity much. His neuro exam is without any significant change. (James Ontiveros) Exam Results 11/18/17 11/18/17 11/19/17 11/19/17 11/20/17 11/20/17 06:00 18:00 06:00 18:00 06:00 18:00 Intake Total 200 ml 580 ml 460 ml 780 ml 580 ml Output Total 600 ml 550 ml 550 ml 275 ml 725 ml Balance -400 ml 30 ml -90 ml 505 ml -145 ml Intake Oral 200 ml 480 ml 360 ml 680 ml 480 ml IV Total 100 ml 100 ml 100 ml 100 ml Output Urine Total 600 ml 550 ml 550 ml 275 ml 725 ml Gastric Drainage Total 0 ml 0 ml # Voids 2 # Bowel Movements 0 0 0 0 Vital Signs Date Time Temp Pulse Resp B/P (MAP) Pulse Ox O2 Delivery O2 Flow Rate FiO2 11/20/17 08:00 98.0 67 15 123/70 (87) 95 11/20/17 07:00 Room Air 11/20/17 04:00 98.7 72 16 133/82 (99) 96 11/20/17 04:00 66 11/20/17 00:00 71 11/20/17 00:00 98.7 71 12 136/79 (98) 97 11/19/17 20:00 98.6 78 13 145/75 (98) 96 11/19/17 20:00 78 11/19/17 19:00 96 Room Air 11/19/17 16:00 98.5 81 10 125/74 (91) 100 11/19/17 16:00 81 11/19/17 12:00 97.6 75 13 128/75 (92) 97 11/19/17 12:00 75 11/19/17 08:00 98.3 73 13 118/63 (81) 97 11/19/17 08:00 73 11/19/17 08:00 97 Room Air 11/19/17 04:00 69 11/19/17 04:00 98.5 69 9 134/83 (100) 97 11/19/17 00:00 98.2 74 12 140/85 (103) 97 11/19/17 00:00 74 11/18/17 22:29 14 11/18/17 20:00 98.4 71 9 151/87 (108) 97 11/18/17 20:00 97 11/18/17 19:00 97 Room Air 11/18/17 16:00 76 11/18/17 16:00 98.4 76 14 143/79 (100) 96 11/18/17 12:00 98.2 84 14 123/78 (93) 100 11/18/17 12:00 80 11/18/17 09:13 99 21 11/18/17 08:05 98.1 80 24 171/97 (121) 98 168/102 (124) 164/108 (126) 11/18/17 08:00 80 11/18/17 08:00 98.1 80 24 171/97 (121) 98 11/18/17 07:00 96 Room Air 11/18/17 04:00 75 11/18/17 04:00 98.0 75 10 151/86 (107) 96 11/18/17 00:39 96 11/18/17 00:00 98.3 81 12 148/78 (101) 97 11/18/17 00:00 81 11/17/17 20:35 97 11/17/17 20:00 98.2 78 12 129/72 (91) 96 11/17/17 20:00 78 11/17/17 19:38 82 20 140/92 (108) 98 11/17/17 19:33 82 20 143/86 (105) 98 11/17/17 19:28 82 15 148/80 (102) 98 11/17/17 19:00 96 Room Air 11/17/17 16:00 77 11/17/17 16:00 97.7 77 17 125/74 (91) 96 11/17/17 12:00 73 11/17/17 12:00 98.4 73 10 129/72 (62) 97 (James Ontiveros) Physical Examination GENERAL: Asleep but awakens to voice, awake & alert after that. Readily interacts. Affect somewhat flat. No evident distress. HEENT: Normocephalic, atraumatic. Tracking with his eyes, gaze appears to be disconjugate. MMM & pink, tongue midline to protrusion. MUSCULOSKELETAL: No evident clubbing or deformity. Moves left side spontaneously & to command. Some movement of RUE to command. Slight movement to RLE to command. NEUROLOGICAL: Asleep but awakens to voice, oriented to person, place, president (from a list) & month. Unable to pick out year from a list. Speech essentially clear & appropriate but w/some expressive aphasia & dysarthria. Pupils 3 mm reactive. Tracking with his eyes, gaze appears to be disconjugate. No facial numbness. Tongue midline to protrusion. Weak shoulder shrug on right. Follows simple commands. Sensation is intact to light touch to all extremities per patient. Muscle strength to the left side extremities 4+ to 5/5 to all major flexion & extension muscle groups except that the hand intrinsics & extrinsics are 4+/5. Muscle strength to the right upper extremity is 2/5 to the deltoid, 3/5 to the bicep, 4/5 to the tricep, hand intrinsics & extrinsics are 2/5 and 0 to 1/5 to the right lower extremity, slight muscle contract to the proximal RLE to command. (James Ontiveros) Lab, Micro, Other Results Recent Impressions Brain MRI 11/18/17 1613 Signed Impressions: Service Date/Time: November 14:44 - CONCLUSION: 1. There is an area of encephalomalacia involving the posterior thalamus and posterior aspect of the caudate on the left. This would be consistent with an old area of infarct. This was not evident on previous MRI dated 12/20/15. There is no evidence of abnormal signal within this on the diffusion restriction images. 2. 2.5 x 1.7 cm homogeneously enhancing mass in the left cerebral pontine angle most consistent with acoustic schwannoma. 3. There is fluid within the mastoid air cells bilaterally. Ant Reece MD Laboratory Tests Test 11/17/17 10:45 11/18/17 06:26 11/19/17 04:31 Blood Urea Nitrogen 11 MG/DL 13 MG/DL Creatinine 1.02 MG/DL 0.98 MG/DL 0.94 MG/DL Random Glucose 100 MG/DL 93 MG/DL Calcium Level 9.1 MG/DL 9.9 MG/DL Sodium Level 142 MEQ/L 142 MEQ/L Potassium Level 3.4 MEQ/L 3.5 MEQ/L Chloride Level 104 MEQ/L 104 MEQ/L Carbon Dioxide Level 33.2 MEQ/L 31.0 MEQ/L Anion Gap 5 MEQ/L 7 MEQ/L Estimat Glomerular Filtration Rate 96 ML/MIN 101 ML/MIN 106 ML/MIN Free Thyroxine 1.23 NG/DL Thyroid Stimulating Hormone 3rd Gen 1.330 uIU/ML White Blood Count 6.3 TH/MM3 Red Blood Count 3.74 MIL/MM3 Hemoglobin 9.3 GM/DL Hematocrit 28.8 % Mean Corpuscular Volume 76.9 FL Mean Corpuscular Hemoglobin 24.9 PG Mean Corpuscular Hemoglobin Concent 32.4 % Red Cell Distribution Width 16.8 % Platelet Count 532 TH/MM3 Mean Platelet Volume 8.1 FL Phosphorus Level 3.5 MG/DL Magnesium Level 2.1 MG/DL (James Ontiveros) Medical Decision Making Impression and Plan Impression: 1. Large thalamic intracranial hemorrhage . 2. Hypertension, improved Right lower extremity pain. New onset left lateral thalamic haemorrhage . The patient continues to do well and remains neurologically stable on his examination. CT brain demonstrated almost complete resolution of the left thalamic haemorrhage. Old left parietal infarct stable. No other new or significant changes. MRI brain demonstrated encephalomalacia c/w old infarct. There was a homogeneously enhancing mass in the left cerebral pontine angle c/w an acoustic shwannoma. Also noted was fluid w/i the mastoid cells bilaterally. Plan: Primary management per Hospitalist. Neuro checks. Stat CT brain for any decrease in neuro status. Mobilise patient w/assistance. Physical & Occupation Therapy. Hold pharmacologic DVT prophylaxis. Mechanical DVT prophylaxis. No indication for neurosurgical intervention. Patient is able to be discharged for transfer to inpatient rehab from Neurosurgery's perspective. (James Ontiveros) Attending Statement The exam, history, and the medical decision-making described in the above note were completed with the assistance of the mid-level provider. I reviewed and agree with the findings presented. I attest that I had a [id number] encounter with the patient on the same day, and personally performed and documented my assessment and findings in the medical record. On my examination 11/20/2017 the patient remains mildly lethargic but arouses easily to voice. His peaches soft but reasonably clear. He follows simple commands well. Denies any headache, nausea, vertigo, dizziness, diplopia. Stable right hemiparesis, mostly 3-4/5 right upper extremity, 1-to/5 right lower extremity. Recent imaging studies have revealed good early improvement in the left thalamic intracranial hemorrhage. Left acoustic schwannoma is noted on recent MRI. Plan conservative treatment at present and outpatient follow-up for the acoustic neuroma. He is stable for inpatient rehabilitation from a neurosurgical standpoint. (Orville Tinajero MD) James Ontiveros Nov 20, 2017 09:17 Orville Tinajero MD Nov 20, 2017 12:01
[2017-11-20] MEDS: GABAPENTIN 100 MG CAP PO SCH ×2 (09:20→12:55)
[2017-11-20] MEDS: FAMOTIDINE 20 MG TAB NG SCH (09:20)
[2017-11-20] MEDS: DOCUSATE SODIUM 50 MG/SENNA 8.6 MG TAB G-TUBE SCH (09:20)
[2017-11-20] MEDS: INSULIN DETEMIR 100 UNITS/ML VIAL SQ SCH (10:00)
[2017-11-20] MEDS ORDERED: NOVOLOGSS SQ (10:58)
[2017-11-20] MEDS ORDERED: LEVE500 PO (10:58)
[2017-11-20] MEDS ORDERED: Free Water G-TUBE (10:58)
[2017-11-20] MEDS ORDERED: ACET650S G-TUBE (10:58)
[2017-11-20] MEDS ORDERED: OXYC-392 PO (10:58)
[2017-11-20] MEDS ORDERED: FLUT50SP EACH NARE (10:58)
[2017-11-20] MEDS ORDERED: LEVEMIR SQ (10:58)
[2017-11-20] MEDS ORDERED: PERI G-TUBE (10:58)
[2017-11-20] MEDS ORDERED: AMLO10 G-TUBE (10:58)
[2017-11-20 12:00] VITALS: BP 134/87; PULSE 71; RESP 25; TEMP 98; O2SAT 100
--- NOTE | 2017-11-20 14:38 | HHI.PR ---
Subjective Remarks Patient denies any complaints. Deneis cp, sob, denies headache. Objective Vitals Vital Signs Date Time Temp Pulse Resp B/P (MAP) Pulse Ox O2 Delivery O2 Flow Rate FiO2 11/20/17 08:00 98.0 67 15 123/70 (87) 95 11/20/17 07:00 Room Air 11/20/17 04:00 98.7 72 16 133/82 (99) 96 11/20/17 04:00 66 11/20/17 00:00 71 11/20/17 00:00 98.7 71 12 136/79 (98) 97 11/19/17 20:00 98.6 78 13 145/75 (98) 96 11/19/17 20:00 78 11/19/17 19:00 96 Room Air 11/19/17 16:00 98.5 81 10 125/74 (91) 100 11/19/17 16:00 81 I/O 11/19/17 11/19/17 11/19/17 11/20/17 11/20/17 11/20/17 07:00 15:00 23:00 07:00 15:00 23:00 Intake Total 360 ml 100 ml 780 ml 480 ml Output Total 550 ml 275 ml 725 ml Balance -190 ml 100 ml 505 ml -245 ml Intake Oral 360 ml 680 ml 480 ml IV Total 100 ml 100 ml Output Urine Total 550 ml 275 ml 725 ml Gastric Drainage Total 0 ml # Bowel Movements 0 0 Result Diagram: 11/18/17 0626 11/19/17 0431 Imaging Last 72 hours Impressions Brain MRI 11/18/17 1613 Signed Impressions: Service Date/Time: November 14:44 - CONCLUSION: 1. There is an area of encephalomalacia involving the posterior thalamus and posterior aspect of the caudate on the left. This would be consistent with an old area of infarct. This was not evident on previous MRI dated 12/20/15. There is no evidence of abnormal signal within this on the diffusion restriction images. 2. 2.5 x 1.7 cm homogeneously enhancing mass in the left cerebral pontine angle most consistent with acoustic schwannoma. 3. There is fluid within the mastoid air cells bilaterally. Ant Reece MD Objective Remarks AAOx3, nad Clear lungs BL S1S2 RRR, no MRG Abdomen soft, nt, nd no edema in lower extremities. Neuro: Speech essentially clear & appropriate but w/some expressive aphasia & dysarthria. Pupils 3 mm reactive. Tracking with his eyes, gaze appears to be disconjugate. No facial numbness. Tongue midline to protrusion. Weak shoulder shrug on right. Follows simple commands. Sensation is decreased to RLE o/w intact to light touch to all extremities. Muscle strength to the left side extremities 4+ to 5/5 to all major flexion & extension muscle groups except that the hand intrinsics & extrinsics are 4+/5. Muscle strength to the right upper extremity is 2/5 to the deltoid, 3/5 to the bicep, 4/5 to the tricep, hand intrinsics & extrinsics are 2/5 and 0 to 1/5 to the right lower extremity, trace movement medially to right leg to command. Procedures Tracheostomy and PEG placement TRACHEOSTOMY REMOVAL Medications and IVs Current Medications Medications (Trade) Dose Ordered Sig/Hermann Route Start Time Stop Time Status Last Admin (NS Flush) 2 ml UNSCH PRN IVF 08/29/17 00:00 11/14/17 21:16 (Trandate Inj) 10 mg Q20M PRN IV PUSH 08/29/17 00:45 11/18/17 07:09 (Zofran Inj) 4 mg Q6H PRN IV PUSH 08/29/17 00:45 09/11/17 14:18 (Apresoline Inj) 10 mg Q30M PRN IV PUSH 08/30/17 08:15 11/18/17 07:54 (Flonase Tae Spr) 2 spray DAILY EACH NARE 09/05/17 17:00 11/16/17 09:00 (Gelfoam 12 Mm/7 Mm Top) 1 foam Q2HR PRN TOPICAL 09/07/17 19:45 09/08/17 08:00 (Heparin Inj) 5,000 units Q12HR SQ 09/11/17 21:00 Future Hold 09/28/17 08:20 (Lidocaine Pf 2% Neb) 1 ml Q6HR NEB PRN NEB 09/16/17 11:30 (Pepcid) 20 mg BID NG 09/24/17 09:30 11/20/17 09:20 (Lipitor) 40 mg HS DOBHOFF 09/25/17 21:00 11/19/17 21:11 (Catapres) 0.3 mg Q8HR G-TUBE 09/25/17 14:00 11/20/17 05:48 (Melina-Colace) 1 tab BID G-TUBE 09/25/17 21:00 11/20/17 09:20 (Apresoline) 100 mg Q8HR G-TUBE 09/25/17 14:00 11/20/17 05:48 (Miralax) 17 gm BID G-TUBE 09/25/17 21:00 11/19/17 21:12 (Inderal) 40 mg Q6HR G-TUBE 09/25/17 12:00 11/20/17 05:48 (Albuterol Neb) 2.5 mg Q2HR NEB PRN NEB 09/25/17 13:30 11/03/17 06:06 (Peridex 0.12% Liq) 15 ml TID SWISH-SPIT 10/11/17 18:00 11/19/17 09:00 (Neurontin) 100 mg TID PO 10/26/17 13:00 11/20/17 12:55 (Levemir Inj) 15 units Q12H SQ 11/01/17 22:00 11/19/17 21:12 (Morphine Inj) 2 mg Q3H PRN IM 11/01/17 13:00 11/01/17 13:25 (Roxicodone) 10 mg Q4H PRN PO 11/02/17 14:00 11/18/17 21:29 (Free Water) 100 ml BID G-TUBE 11/07/17 21:00 11/20/17 09:00 (NovoLOG SUPPLEMENTAL SCALE) 1 ACHS SLIDING SCALE SQ 11/07/17 12:00 11/19/17 13:00 (D50w (Vial) Inj) 50 ml UNSCH PRN IV PUSH 11/07/17 10:00 (Glucagon Inj) 1 mg UNSCH PRN OTHER 11/07/17 10:00 (Tylenol 650 Mg/ 20 ml Liq) 658 mg Q6H PRN G-TUBE 11/08/17 00:15 11/08/17 22:13 (Norvasc) 10 mg DAILY G-TUBE 11/18/17 09:00 11/20/17 09:20 (Keppra) 500 mg Q12HR PO 11/20/17 09:00 11/20/17 09:20 A/P Problem List: (1) Intracranial hemorrhage ICD Code: I62.9 - Nontraumatic intracranial hemorrhage, unspecified Status: Acute (2) Syncope ICD Code: R55 - Syncope and collapse Status: Resolved (3) Seizure disorder ICD Code: G40.909 - Epilepsy, unspecified, not intractable, without status epilepticus Status: Resolved (4) Encephalopathy acute ICD Code: G93.40 - Encephalopathy, unspecified Status: Resolved Assessment and Plan Acute encephalopathy - improving. Left Thalamic Hemorrhage Intracerebral Hemorrhage Syncope/Suspected new onset seizure - Repeat CT of the head showed improving bleed - Neurosurgery follow-up appreciated; stable for dc to SNF per neurosurgery. - Continue rehabilitation efforts with PT, OT, speech - On Seroquel to control agitated delirium. Roxicodone as needed for pain 11/15 patient had a syncopal episode with post ictal state. I will order stat head CT, EEG, I will start the patient IV Keppra and consult neurology. Place on cardiac telemetry. 11/16 CT head showed possible recurrent bleed. Patient was moved to the ICU, neurosurgery notified. Repeat head CT shows improvement on bleed. Fu neurosurgery recommendations. EEG showed slowing consistent with encephalopathic process, possible postictal state. Will consult neurology in am. Patient was started on IV Keppra, continue. 11/17 Consult neurology. Continue Keppra IV. 11/18 nephrology consult pending. No seizures. Fu neurosurgery recommendations. 11/19 will change IV Keppra to p.o. Keppra 500 mg p.o. twice daily. 11/20 Continue Keppra p.o. - As per neurology recommendations this will have to be tapered to off in the future. Anemia likely due to chronic disease. H/H fairly stable. Monitor periodically. HCAP treated. UTI: treated. Respiratory failure s/p trach trach has been removed. will monitor. pulmonary f/u appreciated. Diabetes mellitus - continue Levemir 15 units SQ q12h - Continue sliding scale insulin with Accu-Cheks. - hemoglobin A1c 9.1. - Blood sugars stable. Hypertension - Intermittent hypertension now well controlled - Continue clonidine, amlodipine and propranolol - Continue hydralazine. 11/15 Patient got several bp medications together at 13:10 hrs, Will check orthostatic BP and decrease the dose of some of these medications. 2 BP stable, if trending up will consider increasing medications back up. 11/17 blood pressure elevated. Increased the dose of amlodipine back to 10 mg p.o. daily. 11/18 BP still elevated however patient have not gotten am medications yet, will fu and adjust BP medications to a target sbp <130. 11/19 blood pressure is now stable. Continue same antihypertensive medications. Nutrition status: - Status post PEG tube - -on diet now per ST. -calorie count in process- will consider removing the PEG- pending the result of calorie count. Acute kidney injury, most likely has CKD per nephrology: Renal function stabilized. - monitor renal function periodically. Pain to the right leg. DVT with no evidence of DVT- continue pain control. Resolved diplopia vertical gaze palsy - Ophthalmology consulted. Will need follow-up or vertical gaze palsy with Dr. Holloway as outpatient in 1 month. Physical deconditioning/right sided hemiparesis - OOB to stretcher chair daily - PT/OT following AND SPEECH UTI Last urine culture grew Pseudomonas. The patient is currently on Levaquin p.o. , will continue for a total of 7 days. 11/20 Treatment completed. PROPH: - SCD's. Pepcid for GI prophylaxis Discharge Planning DC to acute rehab when arrangements made. CM to assist. Mookie Silverman MD Nov 20, 2017 14:38
== END 2017-11-20 15:58 | DRG 4 ==
LOC: NEPE 23:42 → NEDA 08-29 00:27 → N03A 08-29 00:58 → N03B 08-30 17:11 → N04B 09-24 23:22 → N04A 09-24 23:25 → N03A 11-15 23:36
PROVIDERS: ADMIT Surgery Surgical Critical Care; ATTEND Hospitalist
PROC: 0BH17EZ Insertion of Endotracheal Airway into Trachea, Via Natural or Artificial Opening (ICD-10-PCS; 2017-08-29)
PROC: 5A1955Z Respiratory Ventilation, Greater than 96 Consecutive Hours (ICD-10-PCS; 2017-08-29)
PROC: 0BC78ZZ Extirpation of Matter from Left Main Bronchus, Via Natural or Artificial Opening Endoscopic (ICD-10-PCS; 2017-08-31)
PROC: 0DH63UZ Insertion of Feeding Device into Stomach, Percutaneous Approach (ICD-10-PCS; 2017-09-06)
PROC: 0B113F4 Bypass Trachea to Cutaneous with Tracheostomy Device, Percutaneous Approach (ICD-10-PCS; principal; 2017-09-08)
PROC: 5A1955Z Respiratory Ventilation, Greater than 96 Consecutive Hours (ICD-10-PCS; 2017-09-08)
PROC: 0BJ08ZZ Inspection of Tracheobronchial Tree, Via Natural or Artificial Opening Endoscopic (ICD-10-PCS; 2017-09-08)
DX: I61.5 Nontraumatic intracerebral hemorrhage, intraventricular (principal); J69.0 Pneumonitis due to inhalation of food and vomit; G93.49 Other encephalopathy; A41.9 Sepsis, unspecified organism; J15.0 Pneumonia due to Klebsiella pneumoniae; N17.9 Acute kidney failure, unspecified; G21.0 Malignant neuroleptic syndrome; N18.3 Chronic kidney disease, stage 3 (moderate); J96.01 Acute respiratory failure with hypoxia; J96.02 Acute respiratory failure with hypercapnia; T17.590A Other foreign object in bronchus causing asphyxiation, initial encounter; E46 Unspecified protein-calorie malnutrition; E87.0 Hyperosmolality and hypernatremia; G81.01 Flaccid hemiplegia affecting right dominant side; F05 Delirium due to known physiological condition; I16.1 Hypertensive emergency; J98.11 Atelectasis; N39.0 Urinary tract infection, site not specified; K56.7 Ileus, unspecified; I82.613 Acute embolism and thrombosis of superficial veins of upper extremity, bilateral; R47.01 Aphasia; I10 Essential (primary) hypertension; E78.5 Hyperlipidemia, unspecified; T78.3XXA Angioneurotic edema, initial encounter; T46.4X5A Adverse effect of angiotensin-converting-enzyme inhibitors, initial encounter; H53.2 Diplopia; R55 Syncope and collapse; R56.9 Unspecified convulsions; B96.5 Pseudomonas (aeruginosa) (mallei) (pseudomallei) as the cause of diseases classified elsewhere; D33.3 Benign neoplasm of cranial nerves; M79.604 Pain in right leg; E11.22 Type 2 diabetes mellitus with diabetic chronic kidney disease; E11.65 Type 2 diabetes mellitus with hyperglycemia; E87.5 Hyperkalemia; E87.6 Hypokalemia; H51.0 Palsy (spasm) of conjugate gaze; Y95 Nosocomial condition; R29.810 Facial weakness; R13.10 Dysphagia, unspecified; K94.21 Gastrostomy hemorrhage; E66.9 Obesity, unspecified; J01.40 Acute pansinusitis, unspecified; J32.4 Chronic pansinusitis; H70.90 Unspecified mastoiditis, unspecified ear; Z68.32 Body mass index [BMI] 32.0-32.9, adult; D64.9 Anemia, unspecified; T43.595A Adverse effect of other antipsychotics and neuroleptics, initial encounter; T43.4X5A Adverse effect of butyrophenone and thiothixene neuroleptics, initial encounter; R47.1 Dysarthria and anarthria; I12.9 Hypertensive chronic kidney disease with stage 1 through stage 4 chronic kidney disease, or unspecified chronic kidney disease; G62.9 Polyneuropathy, unspecified; Z86.73 Personal history of transient ischemic attack (TIA), and cerebral infarction without residual deficits
CPT/HCPCS: 31500; 31600; 31624; 36556; 36600; 70450; 70486; 70496; 70498; 70553; 71010; 71045; 71250; 74000; 74176; 76705; 76775; 76937; 80048; 80053; 80061; 80069; 80074; 80076; 80202; 80307; 81001; 82272; 82435; 82550; 82552; 82565; 82570; 82607; 82728; 82746; 82805; 82947; 82948; 83036; 83520; 83540; 83550; 83735; 84100; 84132; 84145; 84295; 84300; 84439; 84443; 84484; 84520; 85007; 85014; 85018; 85025; 85027; 85384; 85610; 85730; 86038; 86255; 86850; 86900; 86901; 86920; 87040; 87070; 87077; 87081; 87086; 87186; 87205; 87641; 93005; 93306; 93970; 93971; 94002; 94003; 94150; 94640; 94664; 94667; 94668; 95819; A7520; A7521; A9579; C9113; J0131; J0360; J1100; J1170; J1200; J1630; J1644; J1815; J1953; J2060; J2250; J2270; J2405; J2543; J2765; J2930; J3010; J3370; J3475; J3480; J7030; J7040; J7050; J7070; J7120; J7613; Q9967